=== PATIENT | female | born 1955 | race Caucasian/White ===

== ENCOUNTER → 2017-06-15 08:48 | Outpatient (CLI) | payer MEDICARE, SELFPAY ==
[2017-06-18 11:40] LABS: Fats, Neutral Normal (.); Fats, Total Normal (.)
== END ==
PROVIDERS: Family Provider Internal Medicine; PCP Internal Medicine; Visit Provider Internal Medicine Gastroenterology
DX: K52.9 Noninfective gastroenteritis and colitis, unspecified (principal)
CPT/HCPCS: 82705

== ENCOUNTER 2020-12-08 15:23 | Emergency (ER) | payer MEDICARE, SELFPAY ==
[2020-12-08 15:24] VITALS: BP 121/84; PULSE 96; RESP 18; TEMP 35.6; O2SAT 94; BMI 48.0
--- NOTE | 2020-12-08 16:09 | CT_ITS ---
STUDY: CT CHEST WITHOUT CONTRAST REASON FOR EXAM: Female, 65 years old. Rib fractures fall on sidewalk and left-sided chest pain RADIATION DOSAGE (If Supplied By Facility): CTDIvol = ( 19.83 ) mGy, DLP = ( 815.98 ) mGycm TECHNIQUE: Transaxial imaging was performed without the administration of intravenous contrast material. Individualized dose optimization techniques were used for this CT. COMPARISON: None. FINDINGS: Lungs are clear with a benign calcified left lung granuloma. Central airways are patent. Pleural surfaces are intact. Mediastinal contents are normal. Cardiac chambers are normal in size and shape. Aorta and pulmonary artery are unremarkable. Coronary arteries are severely diseased. There is a nondisplaced left sixth lateral rib fracture. Spine and sternum are intact. CT/Chest without Contrast IMPRESSION: 1. Nondisplaced left sixth lateral rib fracture. 2. No pneumothorax or hemothorax. 3. Severe coronary artery disease. Electronically Signed: Lenka Schulz MD at 17:27 EDT Tel , Service support ,
--- NOTE | 2020-12-08 16:11 | EX.ED.GENINJ ---
HPI History of Present Illness Chief Complaint: Chest Other Informant: patient Narrative Narrative: 65-year-old female states that today she was walking down the sidewalk when she tripped over the lip of an uneven sidewalk falling onto her left side. She states she heard multiple pops on the left chest. She notes that she has a slight bruise to her elbow and abrasion. But it is not bothering her and she has full range of motion. She denies striking her head or any neck or back pain. She denies any hematuria or hemoptysis. She notes it is painful to take a breath. [facility] Medical History (Updated 12/08/20 @ 17:[address] Diogenes Ware, DO) Chest pain Diabetes High cholesterol ARIANA on CPAP Sleep apnea Home Medications Ropinirole Hcl [Requip] 0.5 mg PO BID 11/14/13 [History Last Taken 03/16/16] acyclovir [Zovirax] 400 mg PO BID 11/14/13 [History Last Taken 03/16/16] alosetron 1 mg PO DAILY 11/14/13 [History Last Taken 03/16/16] ascorbic acid (vitamin C) [Vitamin C] 500 mg PO DAILY@0800 11/14/13 [History Last Taken 03/16/16] atorvastatin 20 mg PO QHS 11/14/13 [History Last Taken 03/16/16] calcium carbonate-vitamin D3 [Calcium 600 + D(3)] 1 ea PO BID 11/14/13 [History Last Taken 03/16/16] gabapentin [Neurontin] 1,800 mg PO QHS 11/14/13 [History Last Taken 03/16/16] mag [id number] rt xt 800 mg PO DAILY 11/14/13 [History Last Taken 03/16/16] metformin [Glucophage] 2,000 mg PO DAILY 11/14/13 [History Last Taken 03/16/16] tolterodine 2 mg PO BID 11/14/13 [History Last Taken 03/16/16] zolpidem 5 mg PO QHS 11/14/13 [History Last Taken 03/16/16] alosetron 0.5 mg PO DINNER 11/26/14 [History Last Taken 03/16/16] aspirin 81 mg PO DAILY@0800 11/26/14 [History Last Taken 03/16/16] cholecalciferol (vitamin D3) [Vitamin D3] 2,000 unit PO DAILY 11/26/14 [History Last Taken 03/16/16] furosemide 20 mg PO DAILY 11/26/14 [History Last Taken 03/16/16] gabapentin [Gralise] 600 mg PO LUNCH 11/26/14 [History Last Taken 03/16/16] insulin aspart U-100 [Novolog Flexpen U-100 Insulin] 4 units SUBCUT BREAKFAST 11/26/14 [History Last Taken 03/16/16] insulin aspart U-100 [Novolog Flexpen U-100 Insulin] 5 units SUBCUT DINNER 11/26/14 [History Last Taken 03/16/16 17:00] insulin detemir U-100 [Levemir FlexTouch U-100 Insuln] 20 units SUBCUT DAILY 11/26/14 [History Last Taken 03/16/16] insulin detemir U-100 [Levemir FlexTouch U-100 Insuln] 24 units SQ DINNER 11/26/14 [History Last Taken 03/16/16 17:00] potassium chloride [Klor-Con 10] 10 meq PO DAILY 11/26/14 [History Last Taken 03/16/16] meclizine 25 mg PO 4X/DAY PRN PRN #20 tab 12/28/14 [Rx Last Taken Unknown] insulin aspart U-100 [Novolog Flexpen U-100 Insulin] 4 units SUBCUT LUNCH 07/16/15 [History Last Taken 03/16/16] trazodone 50 mg PO QHS 07/16/15 [History Last Taken 03/16/16] diazepam 4 mg PO TID PRN PRN #20 tablet 03/18/16 [Rx Last Taken Unknown] cephalexin [Keflex] 500 mg PO BID #14 capsule 10/22/16 [Rx Last Taken Unknown] phenazopyridine [Pyridium] 200 mg PO TID #6 tab 10/22/16 [Rx Last Taken Unknown] sulfamethoxazole-trimethoprim 1 tab PO BID #20 tablet 01/11/17 [Rx Last Taken Unknown] oxycodone-acetaminophen 1 tab PO Q6H PRN PRN 5 Days #20 tablet 12/08/20 [Rx Last Taken Unknown] Allergy/AdvReac Type Severity Reaction Status Date / Time liraglutide [From Victoza] Allergy Nausea Verified 12/08/20 15:24 quetiapine fumarate Allergy DISORIENTED Verified 12/08/20 15:24 [From Seroquel] Social History (Updated 12/08/20 @ 16:[address] Diogenes Ware, DO) Smoking Status: Former smoker substance use type: does not use ROS ROS ED Constitutional Constitutional ED: Denies chills, fever(s) or weight loss Eyes Eyes: Denies change in vision or diplopia ENT ENT ED: Denies ear pain, rhinorrhea or sore throat Cardiovascular Cardiovascular: Reports chest pain; Denies orthopnea, palpitations or racing heartbeat Respiratory/Chest Respiratory/Chest: Denies cough, dyspnea or orthopnea Gastrointestinal Gastrointestinal: Denies abdominal pain, diarrhea, nausea or vomiting Genitourinary Genitourinary ED: Denies dysuria, hematuria or urinary frequency Musculoskeletal Musculoskeletal: Denies arthralgias or myalgias Integumentary Denies abscess or rash Neurologic Neurologic: Denies headache(s) or weakness Psychiatric Psychiatric: Denies anxiety, depression, suicidal ideation or suicidal thoughts Endocrine Endocrinology: Denies polydipsia, polyphagia or polyuria Allergic/Immunologic Allergic/Immunologic ED: Denies mouth swelling, tongue swelling or urticaria EXAM Physical Exam Narrative Exam Narrative: Patient morbidly obese which significantly limits my examination Const Vital Signs: 12/08/20 15:24 12/08/20 16:26 Temperature 96.0 F L Temperature Source Temporal Pulse Rate 96 Respiratory Rate 18 Respiratory Effort Normal Non-Labored Respiratory Pattern Normal Blood Pressure 121/84 H Blood Pressure Mean 96 Pulse Ox 94 Oxygen Delivery Method Room Air Positive well nourished and well developed General Appearance ED: well developed HEENT Reports normocephalic, head/scalp atraumatic, TM's clear and moist mucous membranes atraumatic Tympanic Membrane ED: Yes TM's clear Eyes PERRL and EOMs intact bilaterally Neck full ROM, no lymphadenopathy, supple and no JVD General: Negative for tenderness Chest Wall Chest Narrative: Patient reports tenderness over the lower half of the left mid axillary ribs. Resp normal respiratory effort and clear to auscultation bilaterally Cardio regular rate, regular rhythm and no murmurs Rate: regular rate GI normal to inspection, nondistended, normoactive bowel sounds and non-tender Palpation: soft Back/Spine no CVA tenderness, normal ROM, normal to inspection and no thoracic nor lumbar tenderness Extremity Extremity Narrative: There is a slight purple ecchymosis over the posterior aspect of the left elbow and very mild abrasion. Full range of motion. No radial head tenderness General Extremety ED: Negative for edema General Extremity: Negative for edema Neuro oriented x3 and CN's II-XII intact bilaterally Sensorium / Orientation: alert Motor Exam: strength 5/5 throughout Psych mental status grossly normal Mood & Affect: Negative for depressed or tearful Skin no rashes or lesions noted and no wounds MDM MDM MDM Narrative Medical decision making narrative: CT of the chest without contrast demonstrates a nondisplaced lateral sixth rib fracture. No pneumothorax or hemothorax or pulmonary contusion seen. Radiology reads this as coronary artery disease as well. Patient was advised to please follow-up with primary care for further evaluation. We talked about home treatment of rib fractures and I will write for pain medication patient was advised on deep breathing to help prevent pneumonia. Radiography Diagnostic Testing: Clinical Impression(s) from Imaging Studies Chest CT 12/08/20 16:09 IMPRESSION: 1. Nondisplaced left sixth lateral rib fracture. 2. No pneumothorax or hemothorax. 3. Severe coronary artery disease. Electronically Signed: Lenka Schulz MD at 17:27 EDT Tel , Service support , Discharge Plan Triage Chief Complaint: Chest Other ED Provider: Diogenes Ware Dx/Rx/DC Orders Clinical Impression: Left rib fracture Instructions: ED Rib Fracture Prescriptions: New oxycodone-acetaminophen [oxycodone-acetaminophen] 1 TABLET tablet 1 tab PO Q6H PRN PRN (Reason: pain) 5 Days Qty: 20 RF: 0 No Action tolterodine 2 MG capsule,extended release 24hr 2 mg PO BID RF: 0 atorvastatin 40 MG tablet 20 mg PO QHS RF: 0 acyclovir [Zovirax] 400 MG tablet 400 mg PO BID RF: 0 ascorbic acid (vitamin C) [Vitamin C] 500 MG tablet 500 mg PO DAILY@0800 RF: 0 gabapentin [Neurontin] 800 MG tablet 1,800 mg PO QHS RF: 0 metformin [Glucophage] 1,000 MG tablet 2,000 mg PO DAILY RF: 0 zolpidem 5 MG tablet 5 mg PO QHS RF: 0 alosetron 0.5 MG tablet 1 mg PO DAILY RF: 0 calcium carbonate-vitamin D3 [Calcium 600 + D(3)] 1 EACH tablet 1 ea PO BID RF: 0 mag [id number] rt xt 1 EACH capsule 800 mg PO DAILY RF: 0 Ropinirole Hcl [Requip] 1 MG tablet 0.5 mg PO BID RF: 0 potassium chloride [Klor-Con 10] 10 MEQ tablet extended release 10 meq PO DAILY RF: 0 aspirin 81 MG tablet,chewable 81 mg PO DAILY@0800 RF: 0 furosemide 20 MG tablet 20 mg PO DAILY RF: 0 insulin aspart U-100 [Novolog Flexpen U-100 Insulin] 100 UNITS/ML insulin pen 4 units subcut BREAKFAST RF: 0 insulin aspart U-100 [Novolog Flexpen U-100 Insulin] 100 UNITS/ML insulin pen 5 units subcut DINNER RF: 0 alosetron 0.5 MG tablet 0.5 mg PO DINNER RF: 0 insulin detemir U-100 [Levemir FlexTouch U-100 Insuln] 100 UNITS/ML insulin pen 24 units SQ DINNER RF: 0 insulin detemir U-100 [Levemir FlexTouch U-100 Insuln] 100 UNITS/ML insulin pen 20 units subcut DAILY RF: 0 cholecalciferol (vitamin D3) [Vitamin D3] 1,000 UNIT tablet 2,000 unit PO DAILY RF: 0 gabapentin [Gralise] 600 MG tablet extended release 24 hr 600 mg PO LUNCH RF: 0 meclizine 25 MG tablet 25 mg PO 4X/DAY PRN PRN (Reason: Dizziness) Qty: 20 RF: 0 trazodone 50 MG tablet 50 mg PO QHS RF: 0 insulin aspart U-100 [Novolog Flexpen U-100 Insulin] 100 UNITS/ML insulin pen 4 units subcut LUNCH RF: 0 diazepam 2 MG tablet 4 mg PO TID PRN PRN (Reason: Vertigo) Qty: 20 RF: 0 phenazopyridine [Pyridium] 200 MG tablet 200 mg PO TID Qty: 6 RF: 0 cephalexin [Keflex] 500 MG capsule 500 mg PO BID Qty: 14 RF: 0 sulfamethoxazole-trimethoprim 1 TABLET tablet 1 tab PO BID Qty: 20 RF: 0 Primary Care Provider: Modesta Pan Referrals: Modesta Pan MD [Primary Care Provider] - 1-2 Weeks Disposition Disposition: Home, Self Care
[2020-12-08] MEDS: Ketorolac 60 MG/2 ML Vial IM (16:34)
== END 2020-12-08 18:10 | disposition home or self-care (01) ==
PROVIDERS: Emergency Provider Emergency Medicine; PCP Internal Medicine
DX: S22.32XA Fracture of one rib, left side, initial encounter for closed fracture (principal); S50.02XA Contusion of left elbow, initial encounter; S50.312A Abrasion of left elbow, initial encounter; W01.0XXA Fall on same level from slipping, tripping and stumbling without subsequent striking against object, initial encounter; Y93.01 Activity, walking, marching and hiking; Y92.9 Unspecified place or not applicable; E11.9 Type 2 diabetes mellitus without complications; E78.00 Pure hypercholesterolemia, unspecified; G47.33 Obstructive sleep apnea (adult) (pediatric); I25.10 Atherosclerotic heart disease of native coronary artery without angina pectoris; Z79.4 Long term (current) use of insulin; Z79.82 Long term (current) use of aspirin; Z79.899 Other long term (current) drug therapy; Z87.891 Personal history of nicotine dependence
CPT/HCPCS: 71250; 96372; 99282

== ENCOUNTER → 2022-02-12 | Outpatient (CLI) | payer MEDICARE, MEDICAID, SELFPAY ==
[2022-02-12] MEDS: Zolpidem Tartrate 5 MG Tablet PO (21:15)
== END | disposition home or self-care (01) ==
PROVIDERS: PCP Internal Medicine; Visit Provider Psychiatry & Neurology Sleep Medicine
DX: G47.33 Obstructive sleep apnea (adult) (pediatric) (principal)
CPT/HCPCS: 95810

== ENCOUNTER 2022-07-31 05:55 | Day surgery (SDC) | payer MEDICARE, SELFPAY ==
--- NOTE | 2022-07-24 12:02 | EKG12_ITS ---
Test Reason : PRE-OP Blood Pressure : / mmHG Vent. Rate : 075 BPM Atrial Rate : 075 BPM P-R Int : 136 ms QRS Dur : 074 ms QT Int : 402 ms P-R-T Axes : 032 002 049 degrees QTc Int : 448 ms Normal sinus rhythm Normal ECG Confirmed by IRAJ COREAS MD ([id number]), editor in chief NELI BANUELOS ([id number]) on 07/27/2022 1:40:49 PM Referred By: Chyna Durant Confirmed By:IRAJ COREAS MD
[2022-07-24 12:25] LABS: Hematocrit 50.1 % (37-47); Hemoglobin 16.3 g/dL (12.0-15.0); Mean Corp Hgb Conc 32.5 g/dL (32-36); Mean Corpuscular Hgb 31.5 pg (27.0-32.0); Mean Corpuscular Volume 96.9 fL (81-99); Mean Platelet Vol. 10.5 fl (6.2-12.0); Platelet Count 219 K/mm3 (150-450); RBC Distribution Width CV 12.6 % (11.6-14.6); RBC Distribution Width SD 45.1 fl (35.1-43.9); Red Blood Count 5.17 M/mm3 (4.2-5.4); White Blood Count 10.9 K/mm3 (4.4-11.0)
[2022-07-24 13:20] LABS: Anion Gap 7 (5-15); BUN 10 mg/dL (7-18); BUN/Creat Ratio 15.2 RATIO (10-20); Calcium,Total 9.8 mg/dL (8.5-10.1); Chloride 104 mmol/L (98-107); Creatinine, Serum 0.66 mg/dL (0.55-1.02); EST Glomerular Filtration Rate 96 mL/min (>60); Est Glom Filt Rate - Afr Amer 116 mL/min (>60); Glucose 103 mg/dL (74-106); Potassium 4.2 mmol/L (3.5-5.1); Sodium Level 142 mmol/L (136-145)
[2022-07-24 14:00] LABS: Hemoglobin A1c 6.4 % (3.8-5.6)
--- NOTE | 2022-07-30 16:49 | HP.PCM_ITS ---
History and Physical Date of Admission: 07/31/22 Pre-Op History and Physical ? HPI: The patient is a 67 year old female presenting for pre-operative visit. She is scheduled for laparoscopic bilateral salpingo-oophorectomy and right cystectomy, for persistent right ovarian cyst measuring 8.6 cm on 07/31/21. Procedure discussed along with risks, benefits and complications. Other alternatives discussed for management. Consent form signed? Yes. ? ? PAST MEDICAL HISTORY PAST MEDICAL HISTORY Diagnosis Date ? Depression ? ? Diabetes mellitus type 2, uncontrolled ? ? High cholesterol ? ? History of colon polyps ? ? History of gallstones ? ? IBS (irritable bowel syndrome) ? ? Obesity 04/25/2013 ? BMI 48.43 ? ARIANA (obstructive sleep apnea) 03/06/2013 ? Parkinson disease (HCC) ? ? ? PAST SURGICAL HISTORY PAST SURGICAL HISTORY Procedure Laterality Date ? ANAL SPHINCTEROPLASTY ? ? ? SPHINCTEROPLASTY ANAL W/ IMPLANT ARTIFICIAL SPHINCTER ADULT ? BARIATRIC SURGERY HX ? 05/28/2021 ? CATARACT EXTRACTION HX Bilateral ? ? 08/2012 ? COLONOSCOPY GEN ANES ? 04/2019 ? INCISE FINGER TENDON SHEATH ? 12/20/2012 ? Left 3rd trigger finger release ? MANIPULATION KNEE JOINT UNDER GENERAL ANESTHESIA Left 01/23/2022 ? Left knee manipulation under anesthesia ? PAST SURGICAL HISTORY OF ? 06/2012 ? Interstim ? PAST SURGICAL HISTORY OF Right ? ? trigger thumb ? REMOVAL GALLBLADDER ? 2000 ? TOTAL KNEE REPLACEMENT Left 10/29/2021 ? Left robotic total knee replacement ? ? ? CURRENT MEDICATIONS Current Outpatient Medications Medication Sig Dispense Refill ? gabapentin (NEURONTIN) 600 mg tablet Take 3 tablets by mouth daily at bedtime for 180 days. 90 tablet 5 ? gabapentin (NEURONTIN) 300 mg capsule Take 3 capsules by mouth daily at lunch 90 capsule 5 ? insulin glargine U-300 conc (TOUJEO SOLOSTAR U-300 INSULIN) 300 unit/mL (1.5 mL) Inject 18 Units subcutaneously every morning. ? ? ? fexofenadine (SEFERINO) 180 mg tablet Take 1 tablet by mouth once daily. 28 tablet 3 ? pen needle, diabetic (NOVOFINE PLUS) 32 gauge x 1/6 Use to inject insulin once daily 100 Each 1 ? zolpidem (AMBIEN) 5 mg tablet Take 1 tablet by mouth at bedtime as needed for sedation for up to 90 days. TAKE 1 TABLET BY MOUTH AT BEDTIME NEEDED FOR SEDATION Do not start before May 20, 2022. 30 tablet 2 ? acyclovir (ZOVIRAX) 400 mg tablet Take 1 tablet by mouth twice daily. 60 tablet 11 ? rOPINIRole (REQUIP) 0.5 mg tablet TAKE 1 TABLET BY MOUTH TWICE A DAY (NOON AND BEDTIME) 60 tablet 11 ? Cholecalciferol, Vitamin D3, (VITAMIN D-3) 50 mcg (2,000 unit) cap Take 1 capsule by mouth once daily. 30 capsule 11 ? semaglutide (OZEMPIC) 2 mg/dose (8 mg/3 mL) pen injector Inject 2 mg subcutaneously one time a week. 3 mL 3 ? sertraline (ZOLOFT) 50 mg tablet Take 1 tablet by mouth once daily. 30 tablet 5 ? ascorbic acid, vitamin C, (VITAMIN C) 500 mg tablet Take 1 tablet by mouth once daily. 30 tablet 11 ? magnesium oxide (MAG-OX) 400 mg (241.3 mg magnesium) tablet Take 2 tablets by mouth once daily. 60 tablet 11 ? atorvastatin (LIPITOR) 20 mg tablet Take 1 tablet by mouth once daily. 28 tablet 11 ? flash glucose sensor (FREESTYLE OMID 2 SENSOR) kit Use to monitor blood sugars 4 times daily 6 Each 3 ? Surgical Lubricant Jelly gel For MRI Female Pelvis, MRI department to provide. Administer intra-vaginal Surgilube immediately prior the MRI procedure (total amount to patient toleranace). 5 g 1 ? OXYGEN, HOME THERAPY, 2 L/min by Mask route daily at bedtime. CPAP 2L at night ? ? ? cloNIDine HCl (CATAPRES) 0.1 mg tablet Take 1 tablet by mouth once daily. ? ? ? omeprazole (PRILOSEC) 20 mg capsule Take 20 mg by mouth once daily. ? ? ? AUSTEDO 6 mg tab Take 6 mg by mouth twice daily. ? ? ? Lancets lancets Test Four times a day. Insulin Dep? Yes E11.9 DM 2 200 Each 4 ? blood sugar diagnostic (BLOOD GLUCOSE TEST) test strip Test Four times a day. Insulin Dep? Yes E11.9 DM 2 300 Strip 3 ? calcium carbonate 600 mg-cholecalciferol 200 units (CALCARB 600 WITH VITAMIN D) 600 mg(1,500mg) -200 unit tab Take 1 tablet by mouth twice daily. 60 tablet 5 ? wheat dextrin (BENEFIBER SUGAR FREE, DEXTRIN,) 3 gram/4 gram powd 1/2 tablespoon per day x2 weeks. Then increase by 1/2 tablespoon every 2 weeks until you are taking 3 tablespoons per day in divided doses. 248 g 3 ? polyethylene glycol 3350 (MIRALAX, GLYCOLAX) 17 gram/dose powder Take 17 g by mouth twice daily. Drink a mix of 1 scoop in 8oz of water/beverage once daily as needed for constipation. 1 Bottle 2 ? docusate sodium (COLACE) 100 mg capsule Take 1 capsule by mouth twice daily as needed for Constipation. 60 capsule 1 ? COMPOUNDED PRESCRIPTION PORTABLE OXYGEN TANKS FOR USE IN BACK PACK USES 3 Lpm WHEN ON PORTABLE TANK to use with exertion DX R79.81 4 Each 11 ? COMPOUNDED PRESCRIPTION EMERGENCY BACKUP OXYGEN TANK FOR WHEN PATIENT LOSES ELECTRICITY DX R79.81 1 Each 11 ? COMPOUNDED PRESCRIPTION Oxygen supplies dx: R79.81 R06.02 1 Each 99 ? COMPOUNDED PRESCRIPTION CPAP supplies Dx: G47.33 [address] ? COMPOUNDED PRESCRIPTION Home Oxygen, 2 litres with cpap machine 1 Each 0 ? blood sugar diagnostic (OnfanTOUCH ULTRA TEST) test strip Test blood sugar(s) 4 times daily. Dx: Type 2 DM - Uncontrolled E11.65 Insulin: Yes 200 Strip 11 ? Lancets (ACCU-CHEK FASTCLIX) lancets With Accuchek fastclix lancing device. Check sugars 4x/day Dx: e11.65 Insulin: Yes 200 Each 11 ? Current Facility-Administered Medications Medication Dose Route Frequency Provider Last Rate Last Admin ? perflutren lipid microspheres 1.3 mL in NaCl (PF) 0.9% 10 mL injection (DEFINITY) INTRAVENOUS DIRECTED PRN Shawanda May MD ? sodium chloride 0.9 % (flush) 10 mL (BD POSIFLUSH) 10 mL INTRAVENOUS DIRECTED PRN Shawanda May MD ? ? ALLERGIES: Seroquel [Quetiapine Fumarate] and Victoza [Liraglutide] ? PERSONAL HISTORY: SOCIAL HISTORY Social History ? Tobacco Use ? Smoking status: Former ? ? Packs/day: 0.10 ? ? Years: 3.00 ? ? Pack years: 0.30 ? ? Types: Cigarettes ? ? Quit date: 04/25/1988 ? ? Years since quittin.2 ? Smokeless tobacco: Never ? Tobacco comments: ? ? No smoking in childhood home. Roomate of last 10 years smoked while living with patient. Vaping Use ? Vaping Use: Never used Substance Use Topics ? Alcohol use: No ? Drug use: No ? FAMILY HISTORY: FAMILY HISTORY FAMILY HISTORY Problem Relation Age of Onset ? Diabetes Mother ? ? Heart Mother ? ? Diabetes Father ? ? Heart Father ? ? Colon Cancer Sister ? ? Asthma No Family History ? ? ? REVIEW OF SYMPTOMS: negative except as noted above PHYSICAL EXAMINATION: ? VITALS: Blood pressure 120/60, weight 194 lb (88 kg), last menstrual period 04/10/2012. ? GENERAL: The patient is well nourished, well hydrated in no acute distress. , The patient is oriented to time, place, and person. NECK: Supple. No lynphadenopathy, normal thyroid, no thyromegaly. LUNGS: Clear to auscultation bilaterally. no wheezes, rhonchi or rales HEART: Regular rate and rhythm, Normal heart sounds, and No murmurs or gallops ? IMPRESSION: 67yo female with persistent right ovarian cyst - desires surgical intervention. ? PLAN: laparoscopic BSO and removal of right ovarian cyst ? Pt has been counseled on risks/benefits and alternatives of surgery including but not limited to anesthesia, bleeding, infection, injury to pelvic structures including bowel, bladder, ureters and vessels. Pt wishes to proceed with surgery at this time. ? I discussed with the patient that there is potential that this cyst could be borderline malignant or malignant which could require a potential second surgery for staging at a later date. I discussed with the patient that we will try to not rupture the cyst in the abdominal cavity however even gentle manipulation of the cyst could cause this we discussed that if this did occur this would change the staging for ovarian cancer. I did give the patient the option to see a minimally invasive specialist or AGRICULTURAL SPECIALIST oncologist if she desired but patient declined. ? Preoperative clearance was obtained and is on the chart. ? Pre and postoperative instructions were reviewed with the patient. ? I have reviewed and updated past medical and surgical history, medications and allergies Chyna Delacruz MD ?4:41 PM Office Visit on 07/21/2022 Office Visit on 07/21/2022 Note shared with patient
[2022-07-31] VITALS (11 sets, daily range): BP systolic 108–143; BP diastolic 64–96; PULSE 56–71; RESP 16–20; TEMP 36.6–37.2; O2SAT 92–100; BMI 33.5
[2022-07-31] MEDS: Lactated Ringers 1,000 ML 15 ML IV ×3 (06:40→09:36)
[2022-07-31 07:08] LABS: Bedside Glucose 115 mg/dL (74-106)
--- NOTE | 2022-07-31 07:30 | OV_PTH ---
PATIENT: KEVAN BIRD [place] [facility] [place][id number] AGE/SX: 67/F ROOM: RE07/31/[address]: Dr. Chyna Durant, MDDOB: 1955 BED: DIS: 07/31/2022 SPEC #: [id number] RECD: 07/31/22 10:21 STATUS: ALBERT ANDREA #: [id number] ANAID: 07/31/22 07:[address]: Chyna Durant DEPT: SURGICAL PATHOLOGY RECD BY: Amanda Mendoza ENTERED: 07/31/22 10:44 SP TYPE: OVARY OTHR DR: MD Dr. Jeremiah Tapia MD Tissues: CYST Procedures: Surgery Specimen Level III Surgery Specimen Level IV Surgery Specimen Level V HEADER OPERATION: Laparoscopic bilateral salpingo-oophorectomy, myomectomy PRE-OP DIAGNOSIS: Persistent right ovarian cyst TISSUE SUBMITTED: Bilateral fallopian tubes, bilateral ovaries, right ovarian cyst, pedunculated fibroid MICROSCOPIC DIAGNOSIS Right ovarian cyst, fallopian tubes and fibroid, excisions: Leiomyoma with degenerative and calcific change. Right and left fallopian tubes with no pathologic change. Right ovary with serous cyst adenofibroma. Left ovary with serous cystadenoma. AM:biju 08/03/2022 MICROSCOPIC DESCRIPTION Slides are reviewed. GROSS DESCRIPTION Received in fixative is one container labeled with the patient's name and designated bilateral fallopian tubes, bilateral ovaries, right ovarian cyst, pedunculated fibroid. The specimen consists of one fallopian tube with adjacent ovary, separate one fallopian tube, a detached nodular mass and a detached second ovary with cyst. The detached nodular mass weighs 2 gm and measures 3.0 x 3.2 x 2.0 cm. Sections of this mass reveals vincent whorled cut surfaces without areas of hemorrhage, necrosis or cystic degeneration. A separate fallopian tube, most likely right fallopian tube, measures 4.0 cm in length and 0.5 cm in diameter. The fimbrial end is identified. Sections unremarkable cut surfaces. The fallopian tube and adjacent ovary, most likely left fallopian tube and ovary. The left fallopian tube measures 5.0 cm in length and 0.5 cm in diameter. It is similar appearance to right. The adjacent left ovary measures 2.5 x 2.0 x 1.5 cm. Sections reveal a cyst filled with clear fluid measuring 1.2 cm in greatest dimension. The right ovary with cyst measures 8.0 x 6.5 x 2.0 cm and weighs 46 gm. The outer surface is smooth without any papillation. The portion of this cystic right ovary is partially disrupted. The external surface is inked black and is almost completely replaced by a simple cyst filled with clear fluid. No obvious papillations are identified. The inner cyst wall shows focal ragged area. The cyst appears to completely replace almost the entire ovary. Publication Distributor sections are submitted in nine cassettes as follows: 1 - detached nodular mass, 2 & 3 - detached right fallopian tube, 4-6 - left fallopian tube and adjacent ovary (4 - left fallopian tube, 5 & 6 - left ovary), 7-9 - right cystic ovary. / SJ:rg 07/31/2022 TC:5 CPT: 72674 x2, 22543, 02479 x2
[2022-07-31] MEDS: Bupivacaine 0.5% PF 10 ML VIAL (07:47)
--- NOTE | 2022-07-31 08:49 | DCINST_ITS ---
Discharge Instructions Procedure Other Diet Discharge Diet: No restrictions Activity May resume sexual activity in: 2 weeks Lifting Restrictions: 20-25 lbs Dressing / Incision Call your doctor if your incision/area has: Continuous Slow Oozing, Sudden Increased Bleeding, Increased Pain/ Swelling, Increased Redness, Foul Smelling Discharge and Swelling at the incision site Call your doctor if you observe: Fever of 101 or Higher, Inability to urinate, Inability to have a bowel movement, Using more than 1 pad per hour and Uncontrolled pain Additional Dressing/Incision Instructions:: You have skin glue over your incision sites, do not pick off. You may shower and let the soap and water run over the incision sites and dab dry. Follow Up Care Please Follow Up With: Chyna Durant MD When: 1-2 weeks post OP if you need an appointment please call [phone] Test Results: Test results from this visit will be discussed in further detail at your follow- up appointment, if applicable. Discharge Plan Admission Attending Provider: Chyna Durant Primary Care Provider: Modesta Pan Consulting Providers: Jeremiah Ricardo Discharge Orders/Prescriptions Prescriptions: No Action atorvastatin 40 MG tablet 20 mg PO QHS Label Comments: reduces cholesterol acyclovir [Zovirax] 400 MG tablet 400 mg PO BID Label Comments: antiviral-cold sores ascorbic acid (vitamin C) [Vitamin C] 500 MG tablet 500 mg PO DAILY@0800 Label Comments: supplement gabapentin [Neurontin] 800 MG tablet 1,800 mg PO QHS Label Comments: nerve pain/restless legs zolpidem 5 MG tablet 5 mg PO QHS Label Comments: sleep alosetron 0.5 MG tablet 1 mg PO DAILY Label Comments: DIARRHEA calcium carbonate-vitamin D3 [Calcium 600 + D(3)] 1 EACH tablet 1 ea PO BID Label Comments: supplement Ropinirole Hcl [Requip] 1 MG tablet 0.5 mg PO BID Label Comments: restless legs alosetron 0.5 MG tablet 1 mg PO DINNER Label Comments: irritable bowel cholecalciferol (vitamin D3) [Vitamin D3] 1,000 UNIT tablet 2,000 unit PO DAILY Label Comments: supplement Gralise 600 MG tablet extended release 24 hr 1,200 mg PO LUNCH Label Comments: nerve pain clonidine HCl 0.1 mg tablet 0.1 mg PO QHS fexofenadine 180 mg Tablet 180 mg PO DAILY magnesium oxide [MagOx] 400 mg (241.3 mg magnesium) Tablet 400 mg PO DAILY sertraline 50 mg Tablet 50 mg PO DAILY Farxiga 5 mg Tablet 5 mg PO DAILY Basilfordosman MistyRadha U-300 Insulin 300 unit/mL (1.5 mL) insulin pen 18 unit SUBCUT DAILY Austedo 6 mg tablet 12 mg PO DAILY Austedo 6 mg tablet 18 mg PO QPM Ozempic 2 mg/dose (8 mg/3 mL) pen injector 2 mg SUBCUT MCMULLEN Referrals / Follow Up: Modesta Pan MD [Primary Care Provider] - Disposition Disposition (needs filled in before D/C Order can be placed): Home, Self Care
--- NOTE | 2022-07-31 08:50 | OP.PCM_ITS ---
Report of Operation Date of Procedure: 07/31/22 Pre-Operative Diagnosis: Right ovarian cyst (persistent) Post-Operative Diagnosis: Same, Pedunculated uterine fibroid Surgery/Procedure Performed:: Laparoscopic BSO, Myomectomy Dr. Benítez assisted with Manipulated of tissue, removal of specimen, closure of fascia Description of Surgical Findings:: Large right ovarian cyst, Normal left ovary and tube. Pedunculated fibroid on posterior aspect of uterus. Surgeon: Chyna Durant account processor: Carrie Benítez Type of Anesthesia: General and Local Special Medications: .5% marcaine Specimen's removed: bilateral fallopian tubes, bilateral ovaries, right ovarian cyst, pedunculated fibroid Drains: none Estimated Blood Loss (mL): 5cc Fluids Replaced: 1700 Description of Procedure: After informed consent was obtained patient was taken to the operating room she was placed in supine position she was given anesthesia. She was then placed in the [facility] stirrups and she was prepped and draped in normal sterile fashion. Bladder was drained prior to the start of procedure approximately 100cc of clear yellow urine was expelled. At this time attention was turned to the vaginal portion where weighted speculum placed at posterior fornix vagina single-tooth tenaculum was used to gently grasp the internal the cervix. uterus was gently sounded to approximately 7cm. Uterine manipulator was placed without difficulty. Legs then placed in parallel with the abdomen the tenaculum and the weighted speculum were removed. 2 towel clamps were placed superior to umbilicus. After Marcaine was injected inferior to umbilicus a small incision was made and a 5 mm trocar was placed under direct visualization. CO2 gas was used to insufflate the intra-abdominal cavity. Upon inspection large right ovarian cyst noted. pedunculated fibroid noted on posterior aspected noted.. At this time then the LLQ port was placed again Marcaine was injected small incision was made a knife and the 5 mm trocar was placed. this was repeated on right side. At this time then tubes were traced back to the fimbriated ends. Ligasure was used to coagulate and ligate along IP ligament, uterovarian and the mesosalpynx bilaterally until ovaries and tubes removed completely. Good hemostasis was appreciated. Careful attention on the right to ensure the cyst was not ruptured. at ths time time pedunuculated fiboroid was removed at the stalk. The umbilical incision was extended to 15mm and endocatch bag placed- specimens collected and removed. fascia of umbilical incision using 0-vicryl sutre in a running fashion. At this time procedure was deemed complete successful. The gas was desufflated on from the intra-abdominal cavity. The trochars were removed. Skin was closed using 4-0 Monocryl in a subcutaneous fashion. Dermabond glue was placed. Instrument lap and needle counts were correct ?2. The uterine manipulator was removed. Vaginal sweep was performed it was negative. There were no complications anticipated normal postoperative course for this patient. Grafts/Implants Used: none Procedure Start Time: 07:47 Procedure Stop Time: 08:56 Complications none. Admit VTE Documentation VTE Present on Admission: Yes VTE Mechan Device Prophylaxis: SCD's VTE Pharm Prophylaxis ordered?: No Reason prophylaxis not ordered:: Procedure Not Indicated
[2022-07-31 09:34] LABS: Bedside Glucose 119 mg/dL (74-106)
== END 2022-07-31 11:41 | disposition home or self-care (01) ==
LOC: SDC 05:56 → AC 05:57
PROVIDERS: Anesthesiology; PCP Internal Medicine; Referring Provider Obstetrics & Gynecology; Visit Provider Obstetrics & Gynecology
PROC: (CPT 58720; principal; 2022-07-31 07:15)
DX: D25.9 Leiomyoma of uterus, unspecified (principal); E11.9 Type 2 diabetes mellitus without complications; N83.201 Unspecified ovarian cyst, right side; E78.00 Pure hypercholesterolemia, unspecified; K58.9 Irritable bowel syndrome, unspecified; Z80.0 Family history of malignant neoplasm of digestive organs; F41.9 Anxiety disorder, unspecified; F32.A Depression, unspecified; Z99.81 Dependence on supplemental oxygen; Z87.891 Personal history of nicotine dependence
CPT/HCPCS: 58720; 00840; 36415; 80048; 82962; 83036; 85027; 88304; 88305; 88307; 93005; J7120; J2405

== ENCOUNTER 2025-02-04 10:05 | Emergency (ER) | payer MEDICARE, MEDICAID, SELFPAY ==
[2025-02-04 10:07] VITALS: BP 157/89; PULSE 76; RESP 15; TEMP 36.7; O2SAT 97
[2025-02-04 10:21] VITALS: BMI 32.7
--- NOTE | 2025-02-04 10:34 | ED.VIS.FALL ---
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 Patient states on she lost her balance when picking something off the floor. Struck her lower back on a coffee table. Patient states since then she has had right sided lumbar back pain which she describes as a spasm. She has been using a walker to help with her balance. She denies hitting her head. No LOC. Not on blood thinners. She denies any chest pain, shortness of breath, abdominal pain, nausea, vomiting, numbness/tingling, weakness. Review of systems: See HPI Medications: As listed on the chart Allergies: As listed on the chart PFSH: Per chart Vital signs: As listed on the chart. Reviewed. Physical exam: Gen: A&O x3, NAD Head: Normocephalic, atraumatic Eyes: No sclera icterus, conjunctiva clear ENT: Moist mucous membranes, atraumatic Neck: Trachea midline, full range of motion, nontender CV: RRR, no murmurs, no chest wall TTP Resp: Lungs CTA BL, no w/r/c GI: Abd soft, non-distended, non-tender, no r/r/g Musc: Tremor from her TD, full ROM, no deformity, no spinal TTP, no eric step-offs, patient has tenderness to palpation of the right paraspinal musculature of the lumbar spine-muscles are tense-no external signs of trauma-palpation recreates her pain Skin: Warm, dry, intact Neuro: Alert, oriented, grossly intact, sensation intact, GCS 15 Psych: Cooperative, appropriate mood and affect [facility] Medical History Wears glasses Arthritis Depression Anxiety Insulin dependent diabetes mellitus Dietary restriction On home oxygen therapy History of cataract High cholesterol Diabetes Home Medications ?Medication ?Instructions ?Recorded ?Last Taken ?Type Ropinirole Hcl [Requip] 0.5 mg PO BID 11/14/13 03/16/16 History acyclovir 400 mg tablet (Zovirax) 400 mg PO BID 11/14/13 03/16/16 History alosetron 0.5 mg tablet 1 mg PO DAILY 11/14/13 03/16/16 History ascorbic acid (vitamin C) 500 mg 500 mg PO DAILY@0800 11/14/13 03/16/16 History tablet (Vitamin C) atorvastatin 40 mg tablet 20 mg PO QHS 11/14/13 03/16/16 History calcium 600 mg (as 1 ea PO BID 11/14/13 03/16/16 History carbonate)-vitamin D3 10 mcg (400 unit) tablet (Calcium 600 + D(3)) gabapentin 800 mg tablet 1,800 mg PO QHS 11/14/13 03/16/16 History (Neurontin) zolpidem 5 mg tablet 5 mg PO QHS 11/14/13 03/16/16 History alosetron 0.5 mg tablet 1 mg PO DINNER 11/26/14 03/16/16 History cholecalciferol (vitamin D3) 25 2,000 unit PO DAILY 11/26/14 03/16/16 History mcg (1,000 unit) tablet (Vitamin D3) gabapentin 600 mg tablet,extended 1,200 mg PO LUNCH 11/26/14 03/16/16 History release 24 hr (Gralise) clonidine HCl 0.1 mg tablet 0.1 mg PO QHS 07/24/22 Unknown History dapagliflozin propanediol 5 mg 5 mg PO DAILY 07/24/22 Unknown History tablet (Farxiga) deutetrabenazine 6 mg tablet 12 mg PO DAILY 07/24/22 Unknown History (Austedo) deutetrabenazine 6 mg tablet 18 mg PO QPM 07/24/22 Unknown History (Austedo) fexofenadine 180 mg tablet 180 mg PO DAILY 07/24/22 Unknown History insulin glargine U-300 conc 300 18 unit subcut DAILY 07/24/22 Unknown History unit/mL (1.5 mL) subcutaneous pen (Toujeo SoloStar U-300 Insulin) magnesium oxide 400 mg (241.3 mg 400 mg PO DAILY 07/24/22 Unknown History magnesium) tablet (MagOx) semaglutide 2 mg/dose (8 mg/3 mL) 2 mg subcut MCMULLEN 07/24/22 Unknown History subcutaneous pen injector (Ozempic) sertraline 50 mg tablet 50 mg PO DAILY 07/24/22 Unknown History Allergy/AdvReac Type Severity Reaction Status Date / Time liraglutide (From Xopiktoza) Allergy Nausea Verified 02/04/25 10:09 quetiapine fumarate (From Allergy DISORIENTED Verified 02/04/25 10:09 Seroquel) Surgical History History of cholecystectomy History of surgery History of left knee surgery History of bariatric surgery Social History (Updated 12/08/20 @ 16:[address] 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 Patient states on she lost her balance when picking something off the floor. Struck her lower back on a coffee table. Patient states since then she has had right sided lumbar back pain which she describes as a spasm. She has been using a walker to help with her balance. She denies hitting her head. No LOC. Not on blood thinners. On presentation, patient no acute distress. See physical exam findings. Differential diagnosis includes but is not limited to myofascial spasm, contusion, suspect less likely fracture. IM Toradol, lidocaine patch, cyclobenzaprine ordered for pain. Will obtain x-ray of the lumbar spine given low suspicion for fracture and no midline spinal tenderness. I do not think any laboratory workup is needed. X-ray of the lumbar spine without any acute fracture or dislocation. Radiology in agreement. Degenerative changes. On reevaluation, patient's pain is improved. Tylenol Motrin as needed for pain. Lidocaine patches will be prescribed. Follow-up with primary care physician. Recommend using walker when ambulating. Return precautions explained. Patient benji understand the plan. Patient will discharge home. Impression: 1. Right lumbar paraspinal muscle spasm 2. Mechanical fall Radiography Diagnostic Testing: Clinical Impression(s) from Imaging Studies Lumbar Spine X-Ray 02/04/25 10:55 IMPRESSION: Degenerative changes of the lumbar spine with disc space narrowing from L1-S1. T12 anterior vertebral body wedging. Reading Location: [facility] Discharge Plan Triage Chief Complaint: Fall ED Provider: Maynor Gee Dx/Rx/DC Orders Prescriptions: No Action atorvastatin 40 MG tablet 20 mg PO QHS Patient Comments: reduces cholesterol acyclovir [Zovirax] 400 MG tablet 400 mg PO BID Patient Comments: antiviral-cold sores ascorbic acid (vitamin C) [Vitamin C] 500 MG tablet 500 mg PO DAILY@0800 Patient Comments: supplement gabapentin [Neurontin] 800 MG tablet 1,800 mg PO QHS Patient Comments: nerve pain/restless legs zolpidem 5 MG tablet 5 mg PO QHS Patient Comments: sleep alosetron 0.5 MG tablet 1 mg PO DAILY Patient Comments: DIARRHEA calcium carbonate-vitamin D3 [Calcium 600 + D(3)] 1 EACH tablet 1 ea PO BID Patient Comments: supplement Ropinirole Hcl [Requip] 1 MG tablet 0.5 mg PO BID Patient Comments: restless legs alosetron 0.5 MG tablet 1 mg PO DINNER Patient Comments: irritable bowel cholecalciferol (vitamin D3) [Vitamin D3] 1,000 UNIT tablet 2,000 unit PO DAILY Patient Comments: supplement Gralise 600 MG tablet extended release 24 hr 1,200 mg PO LUNCH Patient Comments: nerve pain clonidine HCl 0.1 mg tablet 0.1 mg PO QHS fexofenadine 180 mg Tablet 180 mg PO DAILY magnesium oxide [MagOx] 400 mg (241.3 mg magnesium) Tablet 400 mg PO DAILY sertraline 50 mg Tablet 50 mg PO DAILY Farxiga 5 mg Tablet 5 mg PO DAILY Tounicci SoloStar U-300 Insulin 300 unit/mL (1.5 mL) insulin pen 18 unit SUBCUT DAILY Austedo 6 mg tablet 12 mg PO DAILY Austedo 6 mg tablet 18 mg PO QPM Ozempic 2 mg/dose (8 mg/3 mL) pen injector 2 mg SUBCUT MCMULLEN Primary Care Provider: Modesta Pan Referrals: Modesta Pan MD [Primary Care Provider, Internal Medicine] Print Language: Macedonian
[2025-02-04] MEDS: Lidocaine 5% Patch 1 PATCH TOPICAL (10:35)
--- OUTSIDE RECORDS SUMMARY | 2025-02-04 10:50 | XMS RPT_ITS | CCD ---
Author Organization [facility] Care Team Providers Care Molded Goods Spot Picker Name Role Phone Modesta Daley Primary Care Provider Modesta Daley MD Primary Care Provider Everton Whitman Unavailable [facility], Keti Unavailable [facility], [place]ita Unavailable Modesta Daley MD Primary Care Provider Modesta Daley MD Primary Care Provider Modesta Daley MD Primary Care Provider Everton Whitman Unavailable [facility], Keti Unavailable [facility], [place]ita Unavailable Sisarnold SALDANA, Conner Unavailable Unavailable Viet Johnson MD Unavailable Donovan WADE, Aung Unavailable Jemima Brunner PT Unavailable Everton Whitman F Unavailable [facility], Keti Unavailable [facility], [place]ita Unavailable Jemima Brunner PT Unavailable PROVIDER, UNKNOWN Referring Unavailable Modesta Daley Primary Care Unavailable Jasbir Iyer Attending Unavailable PROVIDER, UNKNOWN Referring Unavailable Ganta, Modesta Primary Care Unavailable Jasbir Iyer Attending Unavailable Jasbir Iyer Attending Unavailable PROVIDER, UNKNOWN Referring Unavailable GantaAlvinra Primary Care Unavailable JULIO CESAR JOHN Attending Unavail able Ganta, Modesta Primary Care Unavailable PROVIDER, UNKNOWN Referring Unavailable Jasbir Iyer Attending Unavailable PROVIDER, UNKNOWN Referring Unavailable Ganta, Modesta Primary Care Unavailable MARLENI LOO Attending Unavailable Ganta, Modesta Primary Care Unavailable PROVIDER, UNKNOWN Referring Unavailable JUN DURANT Attending Unavailable PROVIDER, UNKNOWN Referring Unavailable Ganta, Modesta Primary Care Unavailable PROVIDER, UNKNOWN Referring Unavailable Ganta, Modesta Primary Care Unavailable Jasbir Iyer Attending Unavailable Thuy DYE Modesta Primary Care Provider Everton Whitman Unavailable [facility], Keti Unavailable [facility], [place]ita Unavailable Viet Johnson MD Unavailable Aung Man PA-C Unavailable Kannan PT, Jemima Unavailable Donovan White DO Unavailable Modesta Daley MD C Primary Care Provider Jasbir Iyer MD Unavailable Modesta Daley MD Primary Care Provider Modesta Daley MD C Primary Care Provider Jasbir Iyer MD Unavailable Everton Whitman Unavailable Ganta, Modesta Primary Care Unavailable Aman Holly Attending Unavailable Neyhart-Delacrzu, Chyna Referring Unavail able Ganta, Modesta Primary Care Unavailable Neyhart-Delacruz, Chyna Admitting Unavail able Neyhart-Delacruz, Chyna Attending Unavail able Neyhart-Delacruz, Chyna Referring Unavail able Jeremiah Ricardo Unavailable Ganta, Modesta Primary Care Unavailable Tony López Attending Unavailable Kannan PT, Jemima Unavailable Everton Whitman MD F Unavailable [phone] [facility], Keti Unavailable Kannan PT, Jemima Unavailable [phone] STEPHEN PETERSON Attending Unavailable GANTA, MODESTA Primary Care Unavailable JASBIR IYER Attending Unavailable GANTA, MODESTA Primary Care Unavailable Ganta MD Modesta [facility] Denbow PA-C, Effie L Unavailable 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, Inna Unavailable Bogner PA-C, Berta Unavailable GANTA, MODESTA Referring Unavailable GANTA, MODESTA Primary Care Unavailable Christopher DO, Donovan Richar Unavailable Christopher DO, Donovan Richar Unavailable Denbow PA-C, Effie L Unavailable Bogner PA-C, Berta Unavailable OLDER, INNA Referring Unavailable GANTA, MODESTA Primary Care Unavailable OLDER, INNA Referring Unavailable GANTA, MODESTA Primary Care Unavailable OLDER, INNA Attending Unavailable GANTA, MODESTA Primary Care Unavailable GANTA, MODESTA Referring Unavailable GANTA, MODESTA Primary Care Unavailable GANTA, MODESTA Primary Care Unavailable GANTA, MODESTA Attending Unavailable GANTA, MODESTA Primary Care Unavailable GANTA, MODESTA Referring Unavailable GANTA, MODESTA Primary Care Unavailable OLDER, INNA Referring Unavailable OLDER, INNA Attending Unavailable GANTA, MODESTA Primary Care Unavailable OLDER, INNA Attending Unavailable GANTA, MODESTA Primary Care Unavailable GANTA, MODESTA Primary Care Unavailable GANTA, MODESTA Attending Unavailable GANTA, MODESTA Primary Care Unavailable OLDER, INNA Referring Unavailable GANTA, MODESTA Primary Care Unavailable OLDER, INNA Referring Unavailable OLDER, INNA Referring Unavailable GANTA, MODESTA Primary Care Unavailable Allergies Allergy Classification Reported Allergen(s) Allergy Type Date of Onset Reaction(s) Facility liraglutide (7 sources) liraglutide Drug Allergy 4 Nausea Only, GI Upset [facility] QUEtiapine (7 sources) QUEtiapine Drug Allergy 3 Other (See Comments), Mental Status Change [facility] (20 sources) liraglutide; Translations: [LIRAGLUTIDE] Drug Allergy 4 Nausea Only, GI Upset [facility] Work Phone: (14 sources) QUEtiapine Drug Allergy 1 Other (See Comments), Other [facility] Work Phone: (20 sources) QUEtiapine; Translations: [QUETIAPINE FUMARATE] Drug Allergy 3 Mental Status Change [facility] (6 sources) liraglutide Drug Allergy 3 Nausea Only [facility] (1 source) liraglutide Drug Allergy 3 [facility] (1 source) QUEtiapine Drug Allergy 3 [facility] Medications Current Medications Medication Drug Class(es) Dates Sig (Normalized) Sig (Original) acetaminophen 325 mg / oxyCODONE hydrochloride 5 mg oral tablet (1 source) Opioid Agonist Start: 12-08-2020 take 1 tablet by mouth every six hours as needed Oxycodone-Acetam inophen Active 1 TABLET PO EVERY 6 HOURS NEEDED 04 07December 08, 2020 acyclovir 400 mg oral tablet (20 sources) Herpesvirus Nucleoside Analog DNA Polymerase Inhibitor, Herpes Simplex Virus Nucleoside Analog DNA Polymerase Inhibitor, Herpes Zoster Virus Nucleoside Analog DNA Polymerase Inhibitor Start: 11-14-2013 End: 03-08-2024 take 1 tablet by mouth twice daily acyclovir (ZOVIRAX) 400 mg tablet Take 1 tablet by mouth two times a day. 60 tablet 11 03/08/2024 Active Comment on above: Take 1 tablet by smitha th twice daily. Take 1 tablet by smitha th two times a day. alosetron 1 mg oral tablet (20 sources) Serotonin-3 Receptor Antagonist Start: 05-18-2022 alosetron (Lotronex) 1 MG tablet 1 mg at noon and 1 mg in the evening. 0 05/18/2022 Active Start: 04-15-2020 take 1 tablet by smitha th once daily in the morning alosetron (LOTRONEX) 1 MG tablet Take 1 mg by mouth daily In the morning 0 04/15/2020 Active Start: 04-15-2020 take 0.5 mg by mouth once alexey y alosetron (LOTRONEX) 1 MG tablet Take 0.5 mg by mouth daily 0 04/15/2020 Active Start: 11-26-2014 take 0.5 mg by mouth at dinner Alosetron Active 0.5 MG PO WITH DINNER November 25, 2014 11:00pm Start: 11-14-2013 take 1 mg by mouth at dinner A losetron Active 1 MG PO WITH DINNER November 26, 2014 12:00am End: 08-11-2021 Alosetron HCl 0.5 mg tablet Take 1 mg by mouth as directed. Taking 1 mg in the morning and 0.5 mg at dinner. Prescribed by Dr. Everton Whitman 08/11/2021 Discontinued Comment on above: Take 1 mg by mouth a s directed. Taking 1 mg in the morning and 0.5 mg at dinner. Prescribed by Dr. Everton Whitman amantadine hydrochloride 100 mg oral capsule (20 sources) Influenza A M2 Protein Inhibitor Start: 07-13-19 take 1 capsule by mouth twice daily amantadine HCl (SYMMETREL) 100 mg capsule Take 100 mg by mouth two times a day. 07/13/2023 Active amoxicillin 500 mg oral capsule (1 source) Penicillin-class Antibacterial Start: 09-10-19 End: 09-10-19 amoxicillin (AMOXIL) 500 mg capsule Take 4 capsules by mouth one time only for 1 dose. Take 60 min prior to procedure 4 capsule 0 09/10/2023 09/10/2023 Active ascorbic acid 500 mg oral tablet (20 sources) Vitamin C Start: 03-12-19 23 End: 03-12-19 24 take 1 tablet by mouth in the morning ascorbic acid (Vitamin C) 500 MG tablet Take 500 mg by mouth in the morning. 0 03/12/2022 03/12/2023 Active Start: 11-14-2013 End: 01-04-2025 take 1 tablet by mouth once daily ascorbic acid, vitamin C, (VITAMIN C) 500 mg tablet Take 1 tablet by mouth once daily. 30 tablet 11 01/05/2024 01/04/2025 Active Comment on above: Take 1 tablet by smitha th once daily. TAKE 1 TABLET BY SMITHA TH DAILY atorvastatin 20 mg oral tablet (20 sources) HMG-CoA Reductase Inhibitor Start: 1 End: 4 take 1 tablet by mouth once daily atorvastatin (LIPITOR) 20 mg tablet Take 1 tablet by mouth once daily. 28 tablet 11 12/16/2023 Active Start: 11-14-2013 take 20 mg by mouth at bedtime Atorvastatin Active 20 MG PO AT BEDTIME November 14, 2013 12:00am Comment on above: Take 1 tablet by smitha once daily. calcium carbonate 500 mg chewable tablet (1 source) Start: 2 take 1 tablet by mouth at bedtime calcium carbonate (TUMS) 500 MG chewable tablet Take 1 tablet by mouth in the morning, at noon, and at bedtime 0 06/03/2021 Active calcium carbonate 1500 mg / cholecalciferol 200 unt oral tablet (20 sources) Vitamin D Start: 1 take 1 tablet by mouth twice daily calcium carbonate 600 mg-cholecalciferol 200 units (CALCARB 600 WITH VITAMIN D) 600 mg(1,500mg) -200 unit tab Take 1 tablet by mouth twice daily. 60 tablet 5 08/30/2020 Active Start: 11-14-2013 Calcium Carbon ate-Vitamin D3 (Calcium 600 + D(3)) 1 EACH tablet Active 1 EACH PO TWICE A DAY November 14, 2013 12:00am Comment on above: Take 1 tablet by smitha twice daily. calcium citrate 500 mg oral tablet (6 sources) Start: 022 take 500 mg by mouth every eight hours CALCIUM CITRATE PO Take 500 mg by mouth in the morning and 500 mg at noon and 500 mg before bedtime. 0 08/29/2021 Active carbamide peroxide 65 mg/ml otic solution (11 sources) Start: 025 carbamide peroxide (DEBROX) 6.5 % otic solution Indications: Decreased hearing, left , Impacted cerumen of left ear To be used as directed. 4-5 drops repeat every 1-2 hr if necessary. 15 mL 05/01/2024 Active cephalexin 500 mg oral capsule (1 source) Cephalosporin Antibacterial Start: 017 take 1 capsule by mouth twice daily Cephalexin (Keflex) 500 MG capsule Active 500 MG PO TWICE A DAY October 21, 2016 11:00pm cholecalciferol 0.05 mg oral capsule (20 sources) Vitamin D Start: 023 take 1 capsule by mouth in the morning cholecalciferol (Vitamin D-3) 50 MCG (2000 UT) capsule Take 2,000 Units by mouth in the morning. 0 05/08/2022 Active Start: 01-25-2020 End: 03-08-2024 take 1 capsule by mouth once daily Cholecalciferol, Vitamin D3, (VITAMIN D-3) 50 mcg (2,000 unit) cap Indications: Vitamin D deficiency Take 1 capsule by mouth once daily. 30 capsule 11 03/08/2024 Active Start: 11-26-2014 take 2 tablets by mo ut once daily Cholecalciferol (Vitamin D3) (Vitamin D3) 1,000 UNIT tablet Active 2000 UNIT PO DAILY November 26, 2014 12:00am Comment on above: Take 1 capsule by mo [facility] once daily. Mag Hapil-H6-Ibhvlofl Rt Xt (1 source) Vitamin D Start: 4 take 800 mg by mouth once daily Mag Dweyj-Y8-Ylnjhabz Rt Xt Active 800 MG PO DAILY November 13, 2013 11:00pm cloNIDine hydrochloride 0.1 mg oral tablet (20 sources) Central alpha-2 Adrenergic Agonist Start: 2 take 1 tablet by mouth once daily cloNIDine HCl (CATAPRES) 0.1 mg tablet Take 1 tablet by mouth once daily. 10/02/2021 Active Comment on above: Take 1 tablet by smitha th once daily. Continuous Blood Gluc Police Dispatcher (FREESTYLE IZABELLA 14 DAY READER) TERE (14 sources) Start: 0 Continuous Blood Gluc Police Dispatcher (FREESTYLE IZABELLA 14 DAY READER) TERE 1 each daily 0 09/22/2019 Active CPAP Machine MISC (14 sources) CPAP Machine MIS C by Does not apply route nightly ARIANA Does not know setting 2L O2 0 Active CPAP Machine MIS C by Does not apply route nightly ARIANA Does not know setting 0 Active dapagliflozin 5 mg oral tablet (20 sources) Sodium-Glucose Cotransporter 2 Inhibitor Start: 04-23-2022 End: 05-08-2022 take 1 tablet by mouth once daily at breakfast dapagliflozin (Farxiga) 5 MG Indications: Type 2 Diabetes Mellitus Take 1 tablet by mouth daily (with breakfast). 0 05/08/2022 Active Comment on above: Take 1 tablet by smitha th daily with breakfast. deutetrabenazine 6 mg oral tablet (20 sources) Start: 07-24-2022 take 1 tablet by mouth once daily Deutetrabenazine (Austedo) 6 mg tablet Active 12 MG PO DAILY July 24, 2022 12:00am Start: 05-11-2022 Austedo 6 MG t ablet 12 mg at noon and 12 mg in the evening. 0 05/11/2022 Active Start: 04-30-2020 End: 07-15-2023 take 1 tablet by mouth twice daily AUSTEDO 6 mg tab Take 6 mg by mouth twice daily. 0 12/16/2020 07/15/2023 Discontinued Start: 04-30-2020 take 2 tablets by mo uth in the morning AUSTEDO 6 MG tablet Take 6 mg by mouth in the morning and at bedtime 2 tabs AM and PM 0 04/30/2020 Active Comment on above: Take 6 mg by mouth t wice daily. diazePAM 2 mg oral tablet (1 source) Benzodiazepine Start: 03-18-19 17 take 4 mg by mouth three times daily as needed Diazepam Active 4 MG PO 3 TIMES DAILY NEEDED 2016 12:00am diclofenac sodium 0.01 mg/mg topical gel (20 sources) Nonsteroidal Anti-inflammatory Drug Start: 05-10-19 24 apply 2 g topically twice daily diclofenac (VOLTAREN) 1 % topical gel Apply 2 g to affected area two times a day. 50 g 1 05/10/2023 Active Start: 04-15-2023 End: 04-23-2023 apply 2 g topically twice daily diclofenac (VOLTAREN) 1 % topical gel Apply 2 g to affected area two times a day. 50 g 1 04/15/2023 04/23/2023 Discontinued Comment on above: Apply 2 g to affecte d area two times a day. docusate sodium 100 mg oral capsule (20 sources) Start: 05-11-2019 take 1 capsule by mouth every twelve hours as needed docusate sodium (COLACE) 100 mg capsule Take 1 capsule by mouth twice daily as needed for Constipation. 60 capsule 1 05/11/2019 Active Comment on above: Take 1 capsule by mo uth twice daily as needed for Constipation. Dulaglutide (TRULICITY) 3 MG/0.5ML SOPN (14 sources) Start: 01-10-2020 Dulaglutide (TRULICITY) 3 MG/0.5ML SOPN Inject 3 mg into the skin once a week Wednesday in AM 0 01/10/2020 Active Start: 01-10-2020 Dulaglutide (T RULICITY) 3 MG/0.5ML SOPN Inject 3 mg into the skin once a week 0 01/10/2020 Active enteric contrast (will be provided with radiology test) (1 source) Start: 11-12-2021 End: 11-13-2021 enteric contrast (will be provided with radiology test) Indications: Other intra-abdominal and pelvic swelling, mass and lump For CT PELVIS W IVCON order Administer, As Directed One Time Only, via Oral, Rectal, both Oral and Rectal, Enteric Tube, Stoma or Indwelling Catheter, Enteric Contrast as designated per enteric contrast guidelines 1 Each 0 11/12/2021 11/13/2021 Active Comment on above: For CT PELVIS W IVCO N order Administer, As Directed One Time Only, via Oral, Rectal, both Oral and Rectal, Enteric Tube, Stoma or Indwelling Catheter, Enteric Contrast as designated per enteric contrast guidelines fexofenadine hydrochloride 180 mg oral tablet (20 sources) Histamine-1 Receptor Antagonist Start: 08-16-2023 End: 07-28-2024 take 1 tablet by mouth once daily fexofenadine (SEFERINO) 180 mg tablet Indications: Cough , Rhinorrhea Take 1 tablet by mouth once daily. 90 tablet 3 07/28/2024 Active Start: 04-19-2020 End: 08-13-2023 take 1 tablet by mouth once daily fexofenadine (SEFERINO ALLERGY) 180 mg tablet Indications: Cough , Rhinorrhea Take 1 tablet by mouth once daily. 30 tablet 2 08/30/2020 11/25/2020 Discontinued Comment on above: Take 1 tablet by smitha th once daily. TAKE 1 TABLET BY SMITHA TH DAILY flash glucose scanning reader (FREESTYLE IZABELLA 2 READER) (20 sources) Start: 08-31-2022 flash glucose scanning reader (FREESTYLE IZABELLA 2 READER) Indications: Diabetes mellitus type 2 (HCC) 1 Each four times daily. checking blood sugars DX E11.9 Insulin Yes 1 Each 08/31/2022 Active Start: 08-31-2022 flash glucose scanning reader (FREESTYLE IZABELLA 2 READER) Indications: Diabetes mellitus type 2 (HCC) 1 Each four times daily. checking blood sugars DX E11.9 Insulin Yes 1 Each 0 08/31/2022 Active Comment on above: 1 Each four times da bert. checking blood sugars DX E11.9 Insulin Yes flash glucose sensor (FREESTYLE IZABELLA 2 SENSOR) kit (20 sources) Start: 01-25-2023 flash glucose sensor (FREESTYLE IZABELLA 2 SENSOR) kit Indications: Uncontrolled type 2 diabetes mellitus with hyperglycemia (HCC) Use to monitor blood sugars 4 times daily 6 Each 3 01/25/2023 Active Start: 01-20-2022 End: 01-25-2023 flash glucose sensor (FREEST YLE IZABELLA 2 SENSOR) kit Indications: Uncontrolled type 2 diabetes mellitus with hyperglycemia (HCC) Use to monitor blood sugars 4 times daily 6 Each 3 01/20/2022 01/25/2023 Discontinued Start: 01-20-2022 flash glucose sensor (FREESTYLE IZABELLA 2 SENSOR) kit Indications: Uncontrolled type 2 diabetes mellitus with hyperglycemia (HCC) Use to monitor blood sugars 4 times daily 6 Each 3 01/20/2022 Active Start: 04-14-2021 End: 01-20-2022 flash glucose sensor (FREEST YLE IZABELLA 2 SENSOR) kit Indications: Uncontrolled type 2 diabetes mellitus with hyperglycemia (HCC) Use to monitor blood sugars 4 times daily 6 Each 3 04/14/2021 01/20/2022 Discontinued Start: 04-14-2021 flash glucose sensor (FREESTYLE IZABELLA 2 SENSOR) kit Indications: Uncontrolled type 2 diabetes mellitus with hyperglycemia (HCC) Use to monitor blood sugars 4 times daily 6 Each 3 04/14/2021 Suspended Start: 04-14-2021 flash glucose sensor (FREESTYLE IZABELLA 2 SENSOR) kit Indications: Uncontrolled type 2 diabetes mellitus with hyperglycemia (HCC) Use to monitor blood sugars 4 times daily 6 Each 3 04/14/2021 Active Start: 09-24-2020 End: 03-06-2021 flash glucose sensor (FREEST YLE IZABELLA 2 SENSOR) kit Apply sensor to back of arm to check blood sugars as directed. Change sensor every 2 weeks and rotate arms. 7 Kit 5 09/24/2020 03/06/2021 Discontinued Comment on above: Use to monitor blood sugars 4 times daily 3 ml insulin aspart, human 100 unt/ml pen injector (3 sources) Insulin Analog Start: 11-26-2014 Insulin Aspart U-100 (Novolog Flexpen U-100 Insulin) 100 UNITS/ML insulin pen Active 4 UNITS SC WITH LUNCH July 15, 2015 11:00pm Start: 11-26-2014 Insulin Aspart U-100 (Novolog Flexpen U-100 Insulin) 100 UNITS/ML insulin pen Active 5 UNITS SC WITH DINNER November 25, 2014 11:00pm 3 ml insulin detemir 100 unt/ml pen injector (2 sources) Insulin Analog Start: 11-26-2014 Insulin Detemi r U-100 (Levemir Flextouch U-100 Insuln) 100 UNITS/ML insulin pen Active 24 UNITS SQ WITH DINNER November 25, 2014 11:00pm Start: 11-26-2014 Insulin Detemi r U-100 (Levemir Flextouch U-100 Insuln) 100 UNITS/ML insulin pen Active 20 UNITS SC DAILY November 25, 2014 11:00pm 1.5 ml insulin glargine 300 unt/ml pen injector (20 sources) Insulin Analog Start: 09-14-2024 inject 20 [IU] by subcutaneous injection once daily in the morning insulin glargine U-300 conc (TOUJEO SOLOSTAR U-300 INSULIN) 300 unit/mL (1.5 mL) Indications: Diabetes mellitus type 2 (HCC) Inject 20 Units subcutaneously every morning. 9 mL 1 09/14/2024 Active Start: 01-20-2024 End: 09-14-2024 inject 18 [IU] by subcutaneous injection once daily in the morning insulin glargine U-300 conc (TOUJEO SOLOSTAR U-300 INSULIN) 300 unit/mL (1.5 mL) Indications: Diabetes mellitus type 2 (HCC) Inject 18 Units subcutaneously every morning. 9 mL 1 01/20/2024 09/14/2024 Discontinued Start: 05-13-2023 End: 01-20-2024 inject 16 [IU] by subcutaneous injection once daily in the morning insulin glargine U-300 conc (TOUJEO SOLOSTAR U-300 INSULIN) 300 unit/mL (1.5 mL) Indications: Diabetes mellitus type 2 (HCC) Inject 16 Units subcutaneously every morning. 05/13/2023 01/20/2024 Discontinued Start: 08-10-2022 End: 11-10-2022 inject 18 [IU] by subcutaneous injection once daily in the morning insulin glargine U-300 conc (TOUJEO SOLOSTAR U-300 INSULIN) 300 unit/mL (1.5 mL) Indications: Diabetes mellitus type 2 (HCC) Inject 18 Units subcutaneously every morning. 3 Each 5 11/10/2022 Active Start: 07-27-2022 End: 08-10-2022 inject 14 [IU] by subcutaneous injection once daily in the morning insulin glargine U-300 conc (TOUJEO SOLOSTAR U-300 INSULIN) 300 unit/mL (1.5 mL) Indications: Diabetes mellitus type 2 (HCC) Inject 14 Units subcutaneously every morning. 0 07/27/2022 08/10/2022 Discontinued (Adjust Sig - Block E-Cancel) Start: 07-24-2022 Insulin Glargi ne U-300 Conc (Toujeo Solostar U-300 Insulin) 300 unit/mL (1.5 mL) insulin pen Active 18 UNIT SC DAILY July 24, 2022 12:00am Start: 07-01-2022 End: 07-27-2022 inject 18 [IU] by subcutaneous injection once daily in the morning insulin glargine U-300 conc (TOUJEO SOLOSTAR U-300 INSULIN) 300 unit/mL (1.5 mL) Indications: Diabetes mellitus type 2 (HCC) Inject 18 Units subcutaneously every morning. 0 07/01/2022 07/27/2022 Discontinued (Adjust Sig - Block E-Cancel) Start: 06-11-2022 inject 20 [IU] by mcmullen bcutaneous injection once daily in the morning insulin glargine U-300 conc (TOUJEO SOLOSTAR U-300 INSULIN) 300 unit/mL (1.5 mL) Indications: Diabetes mellitus type 2 (HCC) Inject 20 Units subcutaneously every morning. 4.5 mL 1 06/11/2022 Active Start: 05-21-2022 insulin glargi ne (Toujeo SoloStar) 300 UNIT/ML injection Indications: Type 2 Diabetes Mellitus Inject 16 Units under the skin. 0 05/21/2022 Active Start: 11-05-2021 End: 06-11-2022 inject 16 [IU] by subcutaneous injection once daily in the morning insulin glargine U-300 conc (TOUJEO SOLOSTAR U-300 INSULIN) 300 unit/mL (1.5 mL) Indications: Uncontrolled type 2 diabetes mellitus with hyperglycemia (HCC) Inject 16 Units subcutaneously every morning. 0 11/05/2021 05/21/2022 Discontinued Start: 10-06-2021 End: 11-05-2021 inject 14 [IU] by subcutaneous injection once daily in the morning insulin glargine U-300 conc (TOUJEO SOLOSTAR U-300 INSULIN) 300 unit/mL (1.5 mL) Indications: Uncontrolled type 2 diabetes mellitus with hyperglycemia (HCC) Inject 14 Units subcutaneously every morning. 0 10/06/2021 11/05/2021 Discontinued (Adjust Sig - Block E-Cancel) Start: 09-10-2021 End: 10-06-2021 inject 12 [IU] by subcutaneous injection once daily in the morning insulin glargine U-300 conc (TOUJEO SOLOSTAR U-300 INSULIN) 300 unit/mL (1.5 mL) Indications: Uncontrolled type 2 diabetes mellitus with hyperglycemia (HCC) Inject 12 Units subcutaneously every morning. 5 Pen 1 09/10/2021 10/06/2021 Discontinued (Adjust Sig - Block E-Cancel) Start: 08-06-2021 End: 09-10-2021 insulin glargine U-300 conc (TOUJEO SOLOSTAR U-300 INSULIN) 300 unit/mL (1.5 mL) Indications: Uncontrolled type 2 diabetes mellitus with hyperglycemia (HCC) INJECT 60 UNITS SUBCUTANEOUSLY EVERY MORNING 30 mL 5 08/06/2021 09/10/2021 Discontinued Start: 06-30-2021 End: 08-06-2021 insulin glargine U-300 conc (TOUJEO SOLOSTAR U-300 INSULIN) 300 unit/mL (1.5 mL) Indications: Uncontrolled type 2 diabetes mellitus with hyperglycemia (HCC) Inject 22 units once daily and increase dose every 3 days by 1 unit if fasting blood sugar >130 mg/dL. Up to 28 units. 0 06/30/2021 08/06/2021 Discontinued Start: 04-11-2021 End: 06-30-2021 insulin glargine U-300 conc (TOUJEO SOLOSTAR U-300 INSULIN) 300 unit/mL (1.5 mL) Indications: Uncontrolled type 2 diabetes mellitus with hyperglycemia (HCC) Restarting insulin at 12 units daily and increasing dose every 3 days by 1 unit if fasting blood sugar >130 mg/dL. Up to 20 units. 0 06/11/2021 06/30/2021 Discontinued (Adjust Sig - Block E-Cancel) Start: 07-04-2020 End: 01-22-2021 insulin glargine U-300 conc (TOUJEO SOLOSTAR U-300 INSULIN) 300 unit/mL (1.5 mL) Indications: Uncontrolled type 2 diabetes mellitus with hyperglycemia (HCC) Inject 58 Units subcutaneously every morning. 5 Pen 11 07/04/2020 01/22/2021 Discontinued (Adjust Sig - Block E-Cancel) Start: 03-27-2020 Insulin Glargi ne, 1 Unit Dial, (TOUJEO SOLOSTAR) 300 UNIT/ML SOPN Inject 40 Units into the skin every morning DM 0 03/27/2020 Active Start: 03-27-2020 Insulin Glargi ne, 1 Unit Dial, (TOUJEO SOLOSTAR) 300 UNIT/ML SOPN Inject 54 Units into the skin every morning DM 0 03/27/2020 Active Comment on above: Inject 60 Units subc utaneously every morning. Restarting insulin a t 12 units daily and increasing dose every 3 days by 1 unit if fasting blood sugar >130 mg/dL. Up to 20 units. Inject 22 units once daily and increase dose every 3 days by 1 unit if fasting blood sugar >130 mg/dL. Up to 28 units. INJECT 60 UNITS SUBC UTANEOUSLY EVERY MORNING Inject 12 Units subc utaneously every morning. Inject 14 Units subc utaneously every morning. Inject 16 Units subc utaneously every morning. Inject 20 Units subc utaneously every morning. Inject 18 Units subc utaneously every morning. iv contrast (will be provided with radiology test) (2 sources) Start: 11-12-2021 End: 11-13-2021 iv contrast (will be provided with radiology test) Indications: Other intra-abdominal and pelvic swelling, mass and lump CT PELVIS W -Inject, intravenously, once for 1 dose.No IV access, insert saline lock prior to the beginning of sedation, infusion, injection of imaging exam. Discontinue saline lock post exam. If Pt. has a central line or IVAD, may access for administration according to line specific nursing protocol. Once exam is complete flush line and de-access according to line specific nursing protocol in the CT contrast administration guidelines link. 1 Each 0 11/12/2021 11/13/2021 Active Start: 11-11-2021 End: 11-12-2021 iv contrast (will be provide d with radiology test) MRI Female Pelvis Inject, intravenously, once for 1 dose. No IV access, insert saline lock prior to the beginning of sedation, infusion, injection of imaging exam. Discontinue saline lock post exam. If Pt has a central line or IVAD, may access for administration according to line specific nursing protocol. Once exam is complete flush line and de-access according to line specific nursing protocol in the MR contrast administration guidelines link. 1 Each 0 11/11/2021 11/12/2021 Discontinued Comment on above: CT PELVIS W -Inject, intravenously, once for 1 dose.No IV access, insert saline lock prior to the beginning of sedation, infusion, injection of imaging exam. Discontinue saline lock post exam. If Pt. has a central line or IVAD, may access for administration according to line specific nursing protocol. Once exam is complete flush line and de-access according to line specific nursing protocol in the CT contrast administration guidelines link. MRI Female Pelvis In ject, intravenously, once for 1 dose. No IV access, insert saline lock prior to the beginning of sedation, infusion, injection of imaging exam. Discontinue saline lock post exam. If Pt has a central line or IVAD, may access for administration according to line specific nursing protocol. Once exam is complete flush line and de-access according to line specific nursing protocol in the MR contrast administration guidelines link. magnesium oxide 400 mg oral tablet (20 sources) Start: 3 End: 4 take 2 tablets by mouth once daily magnesium oxide (MAG-OX) 400 mg (241.3 mg magnesium) tablet Take 2 tablets by mouth once daily. 60 tablet 11 01/05/2024 Active Start: 03-12-2022 take 2 tablets by mo [facility] once daily magnesium oxide (MAG-OX) 400 mg (241.3 mg magnesium) tablet Take 2 tablets by mouth once daily. 60 tablet 11 03/12/2022 Active Start: 05-10-2020 End: 04-11-2021 take 2 tablets by mouth once daily magnesium oxide (MAG-OX) 400 mg (241.3 mg magnesium) tablet Take 2 tablets by mouth once daily. 60 tablet 11 05/10/2020 04/11/2021 Discontinued Start: 06-12-2019 End: 03-12-2022 take 2 tablets by mouth once daily magnesium oxide (MAG-OX) 400 mg (241.3 mg magnesium) tablet Take 2 tablets by mouth once daily. 60 tablet 11 03/12/2022 Active Comment on above: Take 2 tablets by [facility] once daily. mupirocin 0.02 mg/mg topical ointment (7 sources) RNA Synthetase Inhibitor Antibacterial Start: 2 End: 2 mupirocin (BACTROBAN) 2 % ointment Apply 0.5 inch with cotton swab (Q-tip) to each nostril in the morning and evening for 5 days prior to and including day of surgery. 22 g 0 10/13/2021 10/29/2021 Active Comment on above: Apply 0.5 inch with cotton swab (Q-tip) to each nostril in the morning and evening for 5 days prior to and including day of surgery. nystatin 100 unt/mg topical powder (5 sources) Polyene Antifungal Start: 3 nystatin (Mycostatin) [id number] UNIT/GM powder Indications: Cutaneous Candidiasis Apply 1 application topically 2 times daily. Apply topically to affected area two times daily. 60 g 2 05/26/2022 Active omeprazole 20 mg delayed release oral capsule (20 sources) Proton Pump Inhibitor Start: 2 End: 2 take 1 capsule by mouth once daily omeprazole (PRILOSEC) 20 MG delayed release capsule Take 1 capsule by mouth daily 30 capsule 5 04/29/2021 10/26/2021 Active Comment on above: Take 20 mg by mouth once daily. ondansetron 4 mg oral tablet (2 sources) Serotonin-3 Receptor Antagonist Start: 2 take 1 tablet by mouth every four to six hours as needed for nausea ondansetron (ZOFRAN) 4 MG tablet Take 1 tablet by mouth every 4-6 hours as needed for Nausea or Vomiting 30 tablet 0 05/28/2021 Active Oxygen (5 sources) oxygen (O2) gas Inhale 2 L/min Nightly. via nasal canula 0 Active OXYGEN, HOME THERAPY, (20 sources) Start: 2 OXYGEN, HOME THERAPY, 2 L/min by Mask route daily at bedtime. CPAP 2L at night 10/31/2021 Active Start: 10-31-2021 OXYGEN, HOME T HERAPY, 2 L/min by Mask route daily at bedtime. CPAP 2L at night 0 10/31/2021 Active Comment on above: 2 L/min by Mask rout e daily at bedtime. CPAP 2L at night Ozempic, 2 MG/DOSE, 8 MG/3ML solution pen-injector (5 sources) Start: 05-19-19 Ozempic, 2 MG/DOSE, 8 MG/3ML solution pen-injector Indications: Type 2 Diabetes Mellitus 1 (one) time per week. 0 05/18/2022 Active Pediatric Multivitamins-Iron (CHILDRENS MULTIVITAMIN/IRON PO) (2 sources) Start: 06-04-19 Pediatric Multivitamins-Iron (CHILDRENS MULTIVITAMIN/IRON PO) Take 2 Doses by mouth daily 0 06/03/2021 Active perflutren lipid microspheres 1.3 mL in NaCl (PF) 0.9% 10 mL injection (DEFINITY) (20 sources) Start: 03-10-19 End: 06-09-19 perflutren lipid microspheres 1.3 mL in NaCl (PF) 0.9% 10 mL injection (DEFINITY) phenazopyridine hydrochloride 200 mg oral tablet (1 source) Start: 10-23-19 take 1 tablet by mouth three times daily Phenazopyridine (Pyridium) 200 MG tablet Active 200 MG PO THREE TIMES A DAY October 21, 2016 11:00pm polyethylene glycol 3350 93379 mg powder for oral solution (20 sources) Osmotic Laxative Start: 12-08-19 take 17 g by mouth every twelve hours as needed polyethylene glycol 3350 17 gram/dose powder Take 17 g by mouth two times a day as needed for constipation. Drink a mix of 1 scoop in 8oz of water/beverage once daily as needed for constipation. 238 g 1 12/07/2022 Active Start: 05-11-2019 End: 12-07-2022 take 1 scoop(s) by mouth once daily as needed for constipation polyethylene glycol 3350 (MIRALAX, GLYCOLAX) 17 gram/dose powder Take 17 g by mouth twice daily. Drink a mix of 1 scoop in 8oz of water/beverage once daily as needed for constipation. 1 Bottle 2 05/11/2019 12/07/2022 Discontinued Comment on above: Take 17 g by mouth t wice daily. Drink a mix of 1 scoop in 8oz of water/beverage once daily as needed for constipation. Take 17 g by mouth t wo times a day as needed for constipation. Drink a mix of 1 scoop in 8oz of water/beverage once daily as needed for constipation. potassium chloride 10 meq extended release oral tablet (1 source) Start: 5 Potassium Chloride (Klor-Con 10) 10 MEQ tablet extended release Active 10 MEQ PO DAILY November 25, 2014 11:00pm rOPINIRole 0.5 mg oral tablet (20 sources) Nonergot Dopamine Agonist Start: End: 5 take 1 tablet by mouth twice daily at bedtime rOPINIRole (REQUIP) 0.5 mg tablet TAKE 1 TABLET BY MOUTH TWICE A DAY (NOON AND BEDTIME) 60 tablet 11 03/08/2024 Active Start: 01-25-2020 take 1 tablet by smitha th once daily rOPINIRole (REQUIP) 0.5 MG tablet Take 0.5 mg by mouth nightly 0 01/25/2020 Active Start: 11-14-2013 take 0.5 mg by mouth twice neno ly Ropinirole Hcl (Requip) 1 MG tablet Active 0.5 MG PO TWICE A DAY November 14, 2013 12:00am Comment on above: TAKE 1 TABLET BY SMITHA TH TWICE A DAY (NOON AND BEDTIME) semaglutide (OZEMPIC) 2 mg/dose (8 mg/3 mL) pen injector (20 sources) Start: 07-19-19 25 inject 2 mg by subcutaneous injection every week semaglutide (OZEMPIC) 2 mg/dose (8 mg/3 mL) pen injector Indications: Uncontrolled type 2 diabetes mellitus with hyperglycemia (HCC) Inject 2 mg subcutaneously one time a week. 3 mL 3 07/18/2024 Active Start: 03-30-2024 End: 07-18-2024 inject 2 mg by subcutaneous injection every week semaglutide (OZEMPIC) 2 mg/dose (8 mg/3 mL) pen injector Indications: Uncontrolled type 2 diabetes mellitus with hyperglycemia (HCC) Inject 2 mg subcutaneously one time a week. 3 mL 3 03/30/2024 07/18/2024 Discontinued Start: 03-30-2024 inject 2 mg by subcu taneous injection every week semaglutide (OZEMPIC) 2 mg/dose (8 mg/3 mL) pen injector Indications: Uncontrolled type 2 diabetes mellitus with hyperglycemia (HCC) Inject 2 mg subcutaneously one time a week. 3 mL 3 03/30/2024 Active Start: 12-16-2023 End: 03-30-2024 inject 2 mg by subcutaneous injection every week semaglutide (OZEMPIC) 2 mg/dose (8 mg/3 mL) pen injector Indications: Uncontrolled type 2 diabetes mellitus with hyperglycemia (HCC) Inject 2 mg subcutaneously one time a week. 3 mL 3 12/16/2023 03/30/2024 Discontinued Start: 12-16-2023 inject 2 mg by subcu taneous injection every week semaglutide (OZEMPIC) 2 mg/dose (8 mg/3 mL) pen injector Indications: Uncontrolled type 2 diabetes mellitus with hyperglycemia (HCC) Inject 2 mg subcutaneously one time a week. 3 mL 3 12/16/2023 Active Start: 09-01-2023 End: 12-13-2023 inject 2 mg by subcutaneous injection every week semaglutide (OZEMPIC) 2 mg/dose (8 mg/3 mL) pen injector Indications: Uncontrolled type 2 diabetes mellitus with hyperglycemia (HCC) Inject 2 mg subcutaneously one time a week. 3 mL 3 09/01/2023 12/13/2023 Discontinued Start: 09-01-2023 inject 2 mg by subcu taneous injection every week semaglutide (OZEMPIC) 2 mg/dose (8 mg/3 mL) pen injector Indications: Uncontrolled type 2 diabetes mellitus with hyperglycemia (HCC) Inject 2 mg subcutaneously one time a week. 3 mL 3 09/01/2023 Active Start: 01-25-2023 End: 09-01-2023 inject 2 mg by subcutaneous injection every week semaglutide (OZEMPIC) 2 mg/dose (8 mg/3 mL) pen injector Indications: Uncontrolled type 2 diabetes mellitus with hyperglycemia (HCC) Inject 2 mg subcutaneously one time a week. 3 mL 3 01/25/2023 09/01/2023 Discontinued Start: 01-25-2023 inject 2 mg by subcu taneous injection every week semaglutide (OZEMPIC) 2 mg/dose (8 mg/3 mL) pen injector Indications: Uncontrolled type 2 diabetes mellitus with hyperglycemia (HCC) Inject 2 mg subcutaneously one time a week. 3 mL 3 01/25/2023 Active Start: 11-12-2022 End: 01-25-2023 inject 2 mg by subcutaneous injection every week semaglutide (OZEMPIC) 2 mg/dose (8 mg/3 mL) pen injector Indications: Uncontrolled type 2 diabetes mellitus with hyperglycemia (HCC) Inject 2 mg subcutaneously one time a week. 3 mL 3 11/12/2022 01/25/2023 Discontinued Start: 11-12-2022 inject 2 mg by subcu taneous injection every week semaglutide (OZEMPIC) 2 mg/dose (8 mg/3 mL) pen injector Indications: Uncontrolled type 2 diabetes mellitus with hyperglycemia (HCC) Inject 2 mg subcutaneously one time a week. 3 mL 3 11/12/2022 Active Start: 09-14-2022 End: 11-12-2022 inject 2 mg by subcutaneous injection every week semaglutide (OZEMPIC) 2 mg/dose (8 mg/3 mL) pen injector Indications: Uncontrolled type 2 diabetes mellitus with hyperglycemia (HCC) Inject 2 mg subcutaneously one time a week. 3 mL 3 09/14/2022 11/12/2022 Discontinued Start: 09-14-2022 inject 2 mg by subcu taneous injection every week semaglutide (OZEMPIC) 2 mg/dose (8 mg/3 mL) pen injector Indications: Uncontrolled type 2 diabetes mellitus with hyperglycemia (HCC) Inject 2 mg subcutaneously one time a week. 3 mL 3 09/14/2022 Active Start: 04-29-2022 End: 09-14-2022 inject 2 mg by subcutaneous injection every week semaglutide (OZEMPIC) 2 mg/dose (8 mg/3 mL) pen injector Indications: Uncontrolled type 2 diabetes mellitus with hyperglycemia (HCC) Inject 2 mg subcutaneously one time a week. 3 mL 3 04/29/2022 09/14/2022 Discontinued Start: 04-29-2022 inject 2 mg by subcu taneous injection every week semaglutide (OZEMPIC) 2 mg/dose (8 mg/3 mL) pen injector Indications: Uncontrolled type 2 diabetes mellitus with hyperglycemia (HCC) Inject 2 mg subcutaneously one time a week. 3 mL 3 04/29/2022 Active Comment on above: Inject 2 mg subcutan eously one time a week. Semaglutide (Ozempic) 2 mg/dose (8 mg/3 mL) pen injector (1 source) Start: 3 Semaglutide (Ozempic) 2 mg/dose (8 mg/3 mL) pen injector Active 2 MG SC MCMULLEN July 24, 2022 12:00am sertraline 100 mg oral tablet (20 sources) Serotonin Reuptake Inhibitor Start: End: take 1 tablet by mouth once daily sertraline (ZOLOFT) 100 mg tablet Indications: Depression with anxiety Take 1 tablet by mouth once daily. 30 tablet 5 06/21/2024 Active Start: 03-05-2023 End: 04-15-2023 take 1 tablet by mouth once daily sertraline (ZOLOFT) 50 mg tablet Indications: Depression with anxiety Take 1 tablet by mouth once daily. 30 tablet 5 03/05/2023 04/15/2023 Discontinued Start: 12-26-2019 End: 09-22-2022 take 1 tablet by mouth once daily sertraline (ZOLOFT) 50 mg tablet Indications: Depression with anxiety Take 1 tablet by mouth once daily. 30 tablet 5 06/12/2020 11/27/2020 Discontinued Comment on above: Take 1 tablet by smitha th once daily. 125 ml sodium chloride 9 mg/ml prefilled syringe (20 sources) Start: 03-10-2022 End: 06-09-2023 sodium chloride 0.9 % (flush) 10 mL (BD POSIFLUSH) Start: 09-03-2020 0.9 % sodium c hloride infusion sulfamethoxazole 800 mg / trimethoprim 160 mg oral tablet (1 source) Dihydrofolate Reductase Inhibitor Antibacterial, Sulfonamide Antimicrobial Start: 01-11-2017 take 1 tablet by mouth twice daily Sulfamethoxazole-Trimethoprim Active 1 TABLET PO TWICE A DAY January 11, 2017 12:00am traZODone hydrochloride 50 mg oral tablet (6 sources) Serotonin Reuptake Inhibitor Start: 07-16-2015 take 50 mg by mouth at bedtime Trazodone Active 50 MG PO AT BEDTIME July 15, 2015 11:00pm valbenazine 80 mg oral capsule (20 sources) Start: 04-16-2023 take 1 capsule by mouth once daily INGREZZA 80 mg capsule Take 1 capsule by mouth once daily. 04/16/2023 Active vitamin b12 0.5 mg sublingual tablet (7 sources) Vitamin B12 Start: 06-03-2021 Cyanocobalamin [address] 1 Dose under the tongue. 0 06/03/2021 Active VITAMIN D, CHOLECALCIFEROL, PO (2 sources) Start: 06-03-2021 VITAMIN D, CHOLECALCIFEROL, PO Take 4,000 Int'l Units by mouth daily 0 06/03/2021 Active wheat dextrin 3000 mg powder for oral solution (20 sources) Start: 09-21-2019 wheat dextrin (BENEFIBER SUG AR FREE, DEXTRIN,) 3 gram/4 gram powd Indications: Irritable bowel syndrome with diarrhea 1/2 tablespoon per day x2 weeks. Then increase by 1/2 tablespoon every 2 weeks until you are taking 3 tablespoons per day in divided doses. 248 g 3 09/21/2019 Active Start: 09-21-2019 Wheat Dextrin (BENEFIBER) POWD 1/2 tablespoon per day x2 weeks. Then increase by 1/2 tablespoon every 2 weeks until you are taking 3 tablespoons per day in divided doses. 0 09/21/2019 Active Comment on above: 1/2 tablespoon per d ay x2 weeks. Then increase by 1/2 tablespoon every 2 weeks until you are taking 3 tablespoons per day in divided doses. zolpidem tartrate 5 mg oral tablet (20 sources) gamma-Aminobutyric Acid-ergic Agonist Start: 04-19-2023 End: 12-01-2024 take 1 tablet by mouth at bedtime as needed zolpidem (AMBIEN) 5 mg tablet Indications: Insomnia, unspecified type Take 1 tablet by mouth at bedtime as needed for sedation for up to 90 days. TAKE 1 TABLET BY MOUTH AT BEDTIME NEEDED FOR SEDATION Patient should start on September 02, 2024. 30 tablet 2 09/02/2024 12/01/2024 Active Start: 02-26-2022 End: 04-13-2023 take 1 tablet by mouth at bedtime as needed zolpidem (AMBIEN) 5 mg tablet Indications: Insomnia, unspecified type Take 1 tablet by mouth at bedtime as needed for sedation for up to 90 days. TAKE 1 TABLET BY MOUTH AT BEDTIME NEEDED FOR SEDATION 30 tablet 2 01/13/2023 04/02/2023 Discontinued Start: 11-14-2013 zolpidem (Ambi en) 5 MG tablet 5 mg Nightly. 0 11/14/2013 Active Start: 11-14-2013 End: 02-19-2022 zolpidem (AMBIEN) 5 mg table t Indications: Insomnia, unspecified type TAKE 1 TABLET AT BEDTIME NEEDED FOR SEDATION 30 tablet 2 08/02/2020 10/25/2020 Discontinued Comment on above: TAKE 1 TABLET AT BED TIME NEEDED FOR SEDATION Take 1 tablet by smitha th at bedtime as needed for sedation for up to 90 days. TAKE 1 TABLET BY MOUTH AT BEDTIME NEEDED FOR SEDATION Do not start before September 09, 2021. Take 1 tablet by smitha th at bedtime as needed for sedation for up to 90 days. TAKE 1 TABLET BY MOUTH AT BEDTIME NEEDED FOR SEDATION Take 1 tablet by smitha th at bedtime as needed for sedation for up to 90 days. TAKE 1 TABLET BY MOUTH AT BEDTIME NEEDED FOR SEDATION Do not start before February 26, 2022. Take 1 tablet by smitha th at bedtime as needed for sedation for up to 90 days. TAKE 1 TABLET BY MOUTH AT BEDTIME NEEDED FOR SEDATION Do not start before May 20, 2022. Take 1 tablet by smitha th at bedtime as needed for sedation for up to 90 days. TAKE 1 TABLET BY MOUTH AT BEDTIME NEEDED FOR SEDATION Do not start before August 13, 2022. Take 1 tablet by smitha th at bedtime as needed for sedation for up to 90 days. TAKE 1 TABLET BY MOUTH AT BEDTIME NEEDED FOR SEDATION Do not start before April 19, 2023. Completed/Discontinued Medications Medication Drug Class(es) Dates Sig (Normalized) Sig (Original) acetaminophen 325 mg / HYDROcodone bitartrate 5 mg oral tablet (20 sources) Opioid Agonist Start: 12-22-2021 End: 12-29-2021 take 1 tablet by mouth every eight hours as needed for pain HYDROcodone-aceta minophen (NORCO) 5-325 mg per tablet Indications: S/P total knee arthroplasty, left Take 1 tablet by mouth every 8 hours as needed for pain for up to 7 days. 20 tablet 0 12/22/2021 12/29/2021 Start: 11-17-2021 End: 12-17-2021 take 1-2 tablets by mouth every six hours as needed for pain HYDROcodone-acetaminophen (NORCO) 5-325 mg per tablet Indications: S/P total knee arthroplasty, left Take 1-2 tablets by mouth every 6 hours as needed for pain. 50 tablet 0 11/26/2021 12/10/2021 Discontinued Start: 10-30-2021 End: 11-13-2021 take 1-2 tablets by mouth every six hours as needed for pain HYDROcodone-acetaminophen (NORCO) 5-325 mg per tablet Indications: S/P total knee arthroplasty, left Take 1-2 tablets by mouth every 6 hours as needed for pain. 50 tablet 0 11/05/2021 11/13/2021 Discontinued Start: 09-27-2020 End: 10-30-2021 take 1 tablet by mouth once at bedtime as needed for pain HYDROcodone-acetaminophen (NORCO) 5-325 mg per tablet Indications: Fall, initial encounter , Acute pain of right knee Take 1 tablet by mouth at bedtime as needed for pain. 7 tablet 09/27/2020 10/30/2021 Discontinued Comment on above: Take 1 tablet by smitha th at bedtime as needed for pain. Take 1-2 tablets by mouth every 6 hours as needed for pain. Take 1 tablet by smitha th every 6 hours as needed for pain for up to 7 days. Take 1 tablet by smitha th every 8 hours as needed for pain for up to 7 days. aspirin 81 mg delayed release oral tablet (20 sources) Platelet Aggregation Inhibitor, Nonsteroidal Anti-inflammatory Drug Start: 10-30-2021 End: 03-13-2022 take 1 tablet by mouth twice daily aspirin, enteric coated (ASPIRIN, ENTERIC COATED) 81 mg EC tablet Take 1 tablet by mouth twice daily for 28 days. 56 tablet 0 10/30/2021 03/13/2022 Discontinued Start: 11-27-2019 End: 10-30-2021 take 1 tablet by mouth once daily aspirin, enteric coated (ASPIRIN, ENTERIC COATED) 81 mg EC tablet Take 1 tablet by mouth once daily. 30 tablet 11 05/10/2020 04/11/2021 Discontinued Start: 11-26-2014 take 81 mg by mouth once daily Aspirin Active 81 MG PO DAILY@0800 November 25, 2014 11:00pm Comment on above: Take 1 tablet by smitha th once daily. Take 1 tablet by smitha th twice daily for 28 days. Blood-Glucose Meter,Continuous (DEXCOM G6 RN QUALITY) misc (20 sources) Start: 03-31-2022 End: 07-01-2022 Blood-Glucose Meter,Continuous (DEXCOM G6 RN QUALITY) misc Indications: Uncontrolled type 2 diabetes mellitus with hyperglycemia (HCC) Use to check blood sugar at least four (4) times daily. 1 Each 0 03/31/2022 07/01/2022 Discontinued (Cost of medication) Start: 03-31-2022 Blood-Glucose Meter,Continuous (DEXCOM G6 RN QUALITY) misc Indications: Uncontrolled type 2 diabetes mellitus with hyperglycemia (HCC) Use to check blood sugar at least four (4) times daily. 1 Each 0 03/31/2022 Active Comment on above: Use to check blood s ugar at least four (4) times daily. Blood-Glucose Sensor (DEXCOM G6 SENSOR) tere (20 sources) Start: 03-31-2022 End: 07-01-2022 Blood-Glucose Sensor (DEXCOM G6 SENSOR) tere Indications: Uncontrolled type 2 diabetes mellitus with hyperglycemia (HCC) Apply new sensor every ten (10) days to abdomen. 9 Each 3 03/31/2022 07/01/2022 Discontinued (Cost of medication) Start: 03-31-2022 Blood-Glucose Sensor (DEXCOM G6 SENSOR) tere Indications: Uncontrolled type 2 diabetes mellitus with hyperglycemia (HCC) Apply new sensor every ten (10) days to abdomen. 9 Each 3 03/31/2022 Active Comment on above: Apply new sensor joaquin ry ten (10) days to abdomen. Blood-Glucose Transmitter (DEXCOM G6 TRANSMITTER) tere (20 sources) Start: 03-31-2022 End: 07-01-2022 Blood-Glucose Transmitter (DEXCOM G6 TRANSMITTER) tere Indications: Uncontrolled type 2 diabetes mellitus with hyperglycemia (HCC) Apply new transmitter every 90 days. Clean transmitter with an alcohol swab with each sensor change. 1 Each 3 03/31/2022 07/01/2022 Discontinued (Cost of medication) Start: 03-31-2022 Blood-Glucose Transmitter (DEXCOM G6 TRANSMITTER) tere Indications: Uncontrolled type 2 diabetes mellitus with hyperglycemia (HCC) Apply new transmitter every 90 days. Clean transmitter with an alcohol swab with each sensor change. 1 Each 3 03/31/2022 Active Comment on above: Apply new transmitte r every 90 days. Clean transmitter with an alcohol swab with each sensor change. COMPOUNDED PRESCRIPTION (20 sources) Start: 06-07-2018 End: 04-23-2023 COMPOUNDED PRESCRIPTION Indications: ARIANA (obstructive sleep apnea) , Low oxygen saturation , Shortness of breath on exertion PORTABLE OXYGEN TANKS FOR USE IN BACK PACK USES 3 Lpm WHEN ON PORTABLE TANK to use with exertion DX R79.81 4 Each 06/07/2018 04/23/2023 Discontinued Start: 06-07-2018 COMPOUNDED PRE SCRIPTION Indications: ARIANA (obstructive sleep apnea) , Low oxygen saturation , Shortness of breath on exertion PORTABLE OXYGEN TANKS FOR USE IN BACK PACK USES 3 Lpm WHEN ON PORTABLE TANK to use with exertion DX R79.81 4 Each 06/07/2018 Suspended Start: 06-07-2018 COMPOUNDED PRE SCRIPTION Indications: ARIANA (obstructive sleep apnea) , Low oxygen saturation , Shortness of breath on exertion PORTABLE OXYGEN TANKS FOR USE IN BACK PACK USES 3 Lpm WHEN ON PORTABLE TANK to use with exertion DX R79.81 4 Each 06/07/2018 Active Start: 05-27-2018 End: 04-23-2023 COMPOUNDED PRESCRIPTION Viviana cations: ARIANA (obstructive sleep apnea) EMERGENCY BACKUP OXYGEN TANK FOR WHEN PATIENT LOSES ELECTRICITY DX R79.81 1 Each 05/27/2018 04/23/2023 Discontinued Start: 05-27-2018 COMPOUNDED PRE SCRIPTION Indications: ARIANA (obstructive sleep apnea) EMERGENCY BACKUP OXYGEN TANK FOR WHEN PATIENT LOSES ELECTRICITY DX R79.81 1 Each 05/27/2018 Suspended Start: 05-27-2018 COMPOUNDED PRE SCRIPTION Indications: ARIANA (obstructive sleep apnea) EMERGENCY BACKUP OXYGEN TANK FOR WHEN PATIENT LOSES ELECTRICITY DX R79.81 1 Each 05/27/2018 Active Start: 04-29-2018 End: 04-23-2023 COMPOUNDED PRESCRIPTION Home Oxygen, 2 litres with cpap machine 1 Each 04/29/2018 04/23/2023 Discontinued Start: 04-29-2018 End: 04-23-2023 COMPOUNDED PRESCRIPTION Viviana cations: ARIANA (obstructive sleep apnea) , Low O2 saturation , Shortness of breath CPAP supplies Dx: G47.33 1 Box 04/29/2018 04/23/2023 Discontinued Start: 04-29-2018 End: 04-23-2023 COMPOUNDED PRESCRIPTION Home Oxygen, 2 litres with cpap machine 1 Each 0 04/29/2018 04/23/2023 Discontinued Start: 04-29-2018 COMPOUNDED PRE SCRIPTION Indications: ARIANA (obstructive sleep apnea) , Low O2 saturation , Shortness of breath Oxygen supplies dx: R79.81 R06.02 1 Each 04/29/2018 Suspended Start: 04-29-2018 COMPOUNDED PRE SCRIPTION Indications: ARIANA (obstructive sleep apnea) , Low O2 saturation , Shortness of breath CPAP supplies Dx: G47.33 1 Box 04/29/2018 Suspended Start: 04-29-2018 COMPOUNDED PRE SCRIPTION Home Oxygen, 2 litres with cpap machine 1 Each 0 04/29/2018 Suspended Start: 04-29-2018 COMPOUNDED PRE SCRIPTION Indications: ARIANA (obstructive sleep apnea) , Low O2 saturation , Shortness of breath Oxygen supplies dx: R79.81 R06.02 1 Each 04/29/2018 Active Start: 04-29-2018 COMPOUNDED PRE SCRIPTION Indications: ARIANA (obstructive sleep apnea) , Low O2 saturation , Shortness of breath CPAP supplies Dx: G47.33 1 Box 04/29/2018 Active Start: 04-29-2018 COMPOUNDED PRE SCRIPTION Home Oxygen, 2 litres with cpap machine 1 Each 0 04/29/2018 Active Comment on above: Oxygen supplies dx: R79.81 R06.02 CPAP supplies Dx: G4 7.33 Home Oxygen, 2 litre s with cpap machine EMERGENCY BACKUP OXY GEN TANK FOR WHEN PATIENT LOSES ELECTRICITY DX R79.81 PORTABLE OXYGEN TANK S FOR USE IN BACK PACK USES 3 Lpm WHEN ON PORTABLE TANK to use with exertion DX R79.81 CPAP (20 sources) Start: 05-27-2018 End: 06-11-2022 CPAP Indications: ARIANA (obstructive sleep apnea) Initiate AutoPAP @ 10/20 cm of water with EPR of 3 , humidification. Mask (per patient preference) optional chin strap (if indicated) , filters, tubing, humidifier and lifetime supplies. Dx. ARIANA 327.23 1 Device 05/27/2018 06/11/2022 Discontinued Start: 05-27-2018 End: 06-11-2022 CPAP Indications: ARIANA (obstr uctive sleep apnea) Initiate AutoPAP @ 10/20 cm of water with EPR of 3 , humidification. Mask (per patient preference) optional chin strap (if indicated) , filters, tubing, humidifier and lifetime supplies. Dx. ARIANA 327.23 1 Device 0 05/27/2018 06/11/2022 Discontinued Start: 05-27-2018 CPAP Indicatio ns: ARIANA (obstructive sleep apnea) Initiate AutoPAP @ 10/20 cm of water with EPR of 3 , humidification. Mask (per patient preference) optional chin strap (if indicated) , filters, tubing, humidifier and lifetime supplies. Dx. ARIANA 327.23 1 Device 0 05/27/2018 Suspended Start: 05-27-2018 CPAP Indicatio ns: ARIANA (obstructive sleep apnea) Initiate AutoPAP @ 10/20 cm of water with EPR of 3 , humidification. Mask (per patient preference) optional chin strap (if indicated) , filters, tubing, humidifier and lifetime supplies. Dx. ARIANA 327.23 1 Device 0 05/27/2018 Active Comment on above: Initiate AutoPAP @ 1 0/20 cm of water with EPR of 3 , humidification. Mask (per patient preference) optional chin strap (if indicated) , filters, tubing, humidifier and lifetime supplies. Dx. ARIANA 327.23 0.5 ml dulaglutide 3 mg/ml auto-injector (16 sources) GLP-1 Receptor Agonist Start: 01-27-2022 End: 03-13-2022 dulaglutide (TRULICITY) 1.5 mg/0.5 mL pen injector Inject 1.5 mg subcutaneously one time a week. Use 3 mg and 1.5 mg trulicity injection to equal 4.5 mg one time a week. 2 mL 5 01/27/2022 03/13/2022 Discontinued Comment on above: Inject 1.5 mg subcut aneously one time a week. Use 3 mg and 1.5 mg trulicity injection to equal 4.5 mg one time a week. dulaglutide (TRULICITY) 3 mg/0.5 mL pen injector (17 sources) Start: 01-27-2022 End: 03-13-2022 dulaglutide (TRULICITY) 3 mg/0.5 mL pen injector Inject 3 mg subcutaneously one time a week. Use 3 mg and 1.5 mg trulicity injection to equal 4.5 mg one time a week. 2 mL 5 01/27/2022 03/13/2022 Discontinued Start: 01-27-2022 dulaglutide (T RULICITY) 3 mg/0.5 mL pen injector Inject 3 mg subcutaneously one time a week. Use 3 mg and 1.5 mg trulicity injection to equal 4.5 mg one time a week. 2 mL 5 01/27/2022 Active Start: 05-10-2020 End: 10-23-2020 inject 3 mg by subcutaneous injection every week dulaglutide (TRULICITY) 3 mg/0.5 mL pen injector Indications: Uncontrolled type 2 diabetes mellitus with hyperglycemia (HCC) Inject 3 mg subcutaneously one time a week. 4 Each 05/10/2020 10/23/2020 Discontinued Comment on above: Inject 3 mg subcutan eously one time a week. Use 3 mg and 1.5 mg trulicity injection to equal 4.5 mg one time a week. dulaglutide (TRULICITY) 4.5 mg/0.5 mL pen injector (20 sources) Start: 023 End: 023 inject 4.5 mg by subcutaneous injection every week dulaglutide (TRULICITY) 4.5 mg/0.5 mL pen injector INJECT 4.5MG SUBCUTANEOUSLY ONCE A WEEK 2 mL 5 03/12/2022 03/13/2022 Discontinued Start: 03-12-2022 inject 4.5 mg by sub cutaneous injection every week dulaglutide (TRULICITY) 4.5 mg/0.5 mL pen injector INJECT 4.5MG SUBCUTANEOUSLY ONCE A WEEK 2 mL 5 03/12/2022 Active Start: 04-11-2021 inject 4.5 mg by sub cutaneous injection every week dulaglutide (TRULICITY) 4.5 mg/0.5 mL pen injector Inject 4.5 mg subcutaneously one time a week. 2 mL 5 04/11/2021 Active Comment on above: Inject 4.5 mg subcut aneously one time a week. INJECT 4.5MG SUBCUTA NEOUSLY ONCE A WEEK flash glucose scanning reader (FREESTYLE IZABELLA 14 DAY READER) (1 source) Start: 09-22-19 End: 01-20-20 22 flash glucose scanning reader (FREESTYLE IZABELLA 14 DAY READER) Indications: Uncontrolled type 2 diabetes mellitus with hyperglycemia (HCC) 1 Each once daily. 1 Each 09/22/2019 03/06/2021 Discontinued furosemide 20 mg oral tablet (20 sources) Loop Diuretic Start: 11-27-19 End: 12-12-19 22 take 1 tablet by mouth once daily furosemide (LASIX) 20 mg tablet Take 1 tablet by mouth once daily. 30 tablet 5 08/02/2020 01/21/2021 Discontinued Comment on above: Take 1 tablet by smitha th once daily. gabapentin 600 mg oral tablet (20 sources) Anti-epileptic Agent Start: 04-11-19 End: 04-20-19 26 take 3 capsules by mouth once daily at lunch gabapentin (NEURONTIN) 300 mg capsule Take 3 capsules by mouth daily at lunch 90 capsule 5 04/27/2024 10/19/2024 Discontinued Start: 03-14-2021 End: 04-18-2025 take 3 tablets by mouth once daily at bedtime gabapentin (NEURONTIN) 600 mg tablet Indications: Neuropathy Take 3 tablets by mouth daily at bedtime for 180 days. 90 tablet 5 04/27/2024 10/19/2024 Discontinued Start: 06-13-2020 End: 11-25-2020 take 3 capsules by mouth once daily at lunch gabapentin (NEURONTIN) 300 mg capsule Take 3 capsules by mouth daily with lunch for 180 days. 270 capsule 1 06/13/2020 11/25/2020 Discontinued Start: 06-12-2020 End: 10-01-2020 take 3 tablets by mouth once daily at bedtime gabapentin (NEURONTIN) 600 mg tablet Take 3 tablets by mouth daily at bedtime for 90 days. 90 tablet 2 06/12/2020 10/01/2020 Discontinued Start: 04-15-2020 take 1 capsule by mo [facility] once daily gabapentin (NEURONTIN) 300 MG capsule Take 300 mg by mouth daily. 0 04/15/2020 Active Start: 04-15-2020 take 1 tablet by smitha th once daily gabapentin (NEURONTIN) 600 MG tablet Take 600 mg by mouth nightly. 0 04/15/2020 Active Start: 11-26-2014 Gabapentin (Gr sima) 600 MG tablet extended release 24 hr Active 1200 MG PO WITH LUNCH November 26, 2014 12:00am Start: 11-26-2014 take 1 tablet by smitha every twenty-four hours at lunch Gabapentin (Gralise) 600 MG tablet extended release 24 hr Active 600 MG PO WITH LUNCH November 25, 2014 11:00pm Start: 11-14-2013 Gabapentin (Ne urontin) 800 MG tablet Active 1800 MG PO AT BEDTIME November 14, 2013 12:00am Comment on above: Take 3 tablets by mo uth daily at bedtime for 90 days. TAKE 3 CAPSULES BY M OUTH DAILY WITH LUNCH TAKE 3 TABLETS BY MO UTH AT BEDTIME Take 3 tablets by mo uth daily at bedtime for 180 days. Take 3 capsules by m outh daily at lunch glimepiride 4 mg oral tablet (15 sources) Sulfonylurea Start: 07-12-19 End: 10-24-19 take 1 tablet by mouth twice daily at mealtime glimepiride (AMARYL) 4 mg tablet Indications: Uncontrolled type 2 diabetes mellitus with hyperglycemia (HCC) Take 1 tablet by mouth twice daily with meals. 180 tablet 3 06/12/2020 10/23/2020 Discontinued 3 ml insulin lispro 100 unt/ml pen injector (20 sources) Insulin Analog Start: 04-14-19 End: 09-11-19 insulin lispro (HUMALOG KWIKPEN INSULIN) 100 unit/mL HOLDING since bariatric procedure May. Inject 4 units before breakfast and 8 units before lunch and 16 units before dinner plus sliding scale 1 unit for every 50 above 150 Daily max 50 units 0 06/11/2021 09/10/2021 Discontinued (Clinical Decision) Start: 09-05-2020 End: 12-18-2020 insulin lispro (HUMALOG KWIK PEN INSULIN) 100 unit/mL Indications: Uncontrolled type 2 diabetes mellitus with hyperglycemia (HCC) Inject 4 units before breakfast and lunch and 14 units before dinner plus sliding scale 1 unit for every 50 above 150 Daily max 50 units 6 Pen 11 09/05/2020 12/18/2020 Discontinued (Adjust Sig - Block E-Cancel) Start: 03-27-2020 insulin lispro , 1 Unit Dial, 100 UNIT/ML SOPN DM 0 03/27/2020 Active Comment on above: Inject 4 units befor e breakfast and 8 units before lunch and 16 units before dinner plus sliding scale 1 unit for every 50 above 150 Daily max 50 units HOLDING since bariat max procedure May. Inject 4 units before breakfast and 8 units before lunch and 16 units before dinner plus sliding scale 1 unit for every 50 above 150 Daily max 50 units meclizine hydrochloride 25 mg oral tablet (20 sources) Antiemetic Start: 11-09-19 End: 03-13-19 take 1 tablet by mouth three times daily as needed for dizziness meclizine (ANTIVERT) 25 mg tab Indications: Vertigo Take 1 tablet by mouth three times daily as needed (dizziness). 15 tablet 11/08/2017 03/13/2022 Discontinued (Discontinued by Patient) Start: 12-28-2014 take 25 mg by mouth four times daily as needed Meclizine Active 25 MG PO 4 TIMES DAILY NEEDED December 28, 2014 12:00am Comment on above: Take 1 tablet by smitha th three times daily as needed (dizziness). meloxicam 15 mg oral tablet (20 sources) Nonsteroidal Anti-inflammatory Drug Start: 01-25-20 End: 10-31-19 take 1 tablet by mouth once daily meloxicam (MOBIC) 15 mg tablet Take 1 tablet by mouth once daily. 28 tablet 11 07/04/2020 10/30/2021 Discontinued Comment on above: Take 1 tablet by smitha th once daily. 24 hr metFORMIN hydrochloride 500 mg extended release oral tablet (20 sources) Biguanide Start: 05-09-19 End: 12-19-19 metFORMIN XR (Glucophage-XR) 500 MG 24 hr tablet Indications: Type 2 Diabetes Mellitus 500 mg before bedtime. 0 05/08/2022 12/18/2022 Discontinued (Therapy completed) Start: 01-25-2020 End: 06-12-2022 metFORMIN ER (GLUCOPHAGE XR) 500 mg 24 hr tablet Indications: Uncontrolled type 2 diabetes mellitus with hyperglycemia (HCC) TAKE 3 TABLETS DAILY WITH MEALS 90 tablet 5 09/24/2020 03/14/2021 Discontinued Start: 11-14-2013 take 2 tablets by mo [facility] once daily Metformin (Glucophage) 1,000 MG tablet Active 2000 MG PO DAILY November 13, 2013 11:00pm Comment on above: TAKE 3 TABLETS DAILY WITH MEALS TAKE 2 TABLETS DAILY WITH MEALS Take 1 tablet by smitha th daily with breakfast. Miscellaneous Medical Supply (20 sources) Start: 09-16-2022 End: 04-23-2023 Miscellaneous Medical Supply D/C CPAP - last sleep study not showing ARIANA. Confirmed with pulmonary as well. 1 Each 0 09/16/2022 04/23/2023 Discontinued Start: 09-16-2022 Miscellaneous Medical Supply D/C CPAP - last sleep study not showing ARIANA. Confirmed with pulmonary as well. 1 Each 0 09/16/2022 Active Comment on above: D/C CPAP - last slee p study not showing ARIANA. Confirmed with pulmonary as well. semaglutide (OZEMPIC) 1 mg/dose (4 mg/3 mL) pen (20 sources) Start: 12-22-19 End: 04-23-19 inject 1 mg by subcutaneous injection every week semaglutide (OZEMPIC) 1 mg/dose (4 mg/3 mL) pen Indications: Uncontrolled type 2 diabetes mellitus with hyperglycemia (HCC) Inject 1 mg subcutaneously one time a week. 3 mL 2 12/21/2022 04/23/2023 Discontinued Start: 12-21-2022 inject 1 mg by subcu taneous injection every week semaglutide (OZEMPIC) 1 mg/dose (4 mg/3 mL) pen Indications: Uncontrolled type 2 diabetes mellitus with hyperglycemia (HCC) Inject 1 mg subcutaneously one time a week. 3 mL 2 12/21/2022 Active Start: 03-13-2022 End: 04-29-2022 inject 1 mg by subcutaneous injection every week semaglutide (OZEMPIC) 1 mg/dose (4 mg/3 mL) pen Inject 1 mg subcutaneously one time a week. 3 mL 5 03/13/2022 04/29/2022 Discontinued (Changing Therapy/Dosage Form) Start: 03-13-2022 inject 1 mg by subcu taneous injection every week semaglutide (OZEMPIC) 1 mg/dose (4 mg/3 mL) pen Inject 1 mg subcutaneously one time a week. 3 mL 5 03/13/2022 Active Start: 03-13-2022 End: 03-13-2022 inject 1 mg by subcutaneous injection every week semaglutide (OZEMPIC) 1 mg/dose (4 mg/3 mL) pen Inject 1 mg subcutaneously one time a week. 3 mL 5 03/13/2022 03/13/2022 Discontinued Start: 03-06-2022 End: 03-13-2022 inject 1 mg by subcutaneous injection every week semaglutide (OZEMPIC) 1 mg/dose (4 mg/3 mL) pen Inject 1 mg subcutaneously one time a week. 3 mL 5 03/06/2022 03/13/2022 Discontinued (Discontinued by Patient) Start: 03-06-2022 inject 1 mg by subcu taneous injection every week semaglutide (OZEMPIC) 1 mg/dose (4 mg/3 mL) pen Inject 1 mg subcutaneously one time a week. 3 mL 5 03/06/2022 Active Comment on above: Inject 1 mg subcutan eously one time a week. Surgical Lubricant Jelly gel (20 sources) Start: 11-11-2021 End: 04-23-2023 Surgical Lubricant Jelly gel For MRI Female Pelvis, MRI department to provide. Administer intra-vaginal Surgilube immediately prior the MRI procedure (total amount to patient toleranace). 5 g 1 11/11/2021 04/23/2023 Discontinued Start: 11-11-2021 Surgical Lubri cant Jelly gel For MRI Female Pelvis, MRI department to provide. Administer intra-vaginal Surgilube immediately prior the MRI procedure (total amount to patient toleranace). 5 g 1 11/11/2021 Active Comment on above: For MRI Female Pelvi s, MRI department to provide. Administer intra-vaginal Surgilube immediately prior the MRI procedure (total amount to patient toleranace). tolterodine tartrate 2 mg oral tablet (7 sources) Cholinergic Muscarinic Antagonist Start: 02-27-2020 End: 01-22-2021 tolterodine (DETROL) 2 mg tablet TAKE 1 TABLET TWICE A DAY 56 tablet 5 02/27/2020 01/22/2021 Discontinued (Discontinued by Patient) Start: 11-14-2013 take 2 mg by mouth twice daily Tolterodine Active 2 MG PO TWICE A DAY November 13, 2013 11:00pm TRULICITY 4.5 mg/0.5 mL pen injector (20 sources) Start: 10-01-2021 End: 03-12-2022 inject 4.5 mg by subcutaneous injection every week TRULICITY 4.5 mg/0.5 mL pen injector INJECT 4.5MG SUBCUTANEOUSLY ONCE A WEEK 2 mL 5 10/01/2021 03/12/2022 Discontinued Start: 10-01-2021 inject 4.5 mg by sub cutaneous injection every week TRULICITY 4.5 mg/0.5 mL pen injector INJECT 4.5MG SUBCUTANEOUSLY ONCE A WEEK 2 mL 5 10/01/2021 Suspended Start: 10-01-2021 inject 4.5 mg by sub cutaneous injection every week TRULICITY 4.5 mg/0.5 mL pen injector INJECT 4.5MG SUBCUTANEOUSLY ONCE A WEEK 2 mL 5 10/01/2021 Active Comment on above: INJECT 4.5MG SUBCUTA NEOUSLY ONCE A WEEK Zinc (10 sources) Start: 3 End: 3 take 1 tablet by mouth once daily zinc 25 MG tablet Take 1 tablet by mouth daily. 0 03/19/2022 05/26/2022 Discontinued Start: 03-19-2022 take 1 tablet by smitha th once daily zinc 25 MG tablet Take 1 tablet by mouth daily. 0 03/19/2022 Active take 1 tablet by smitha th every other day zinc 25 MG tablet Take 25 mg by mouth every other day. 0 Active Problems Active Problems Problem Classification Problem Date Documented Da te Episodic/Chronic Adjustment disorders (20 sources) Grief finding; Translations: [Adjustment disorder with depressed mood] Onset: 9 08-01-2018 Chronic Anxiety disorders (20 sources) Posttraumatic stress disorder; Translations: [Post-traumatic stress disorder, unspecified] Onset: 3 02-10-2021 Chronic Benign neoplasm of uterus (1 source) Leiomyoma of uterus, unspecified; Translations: [Leiomyoma of uterus, unspecified] Onset: 3 Episodic Cataract (20 sources) Bilateral cataracts; Translations: [Unspecified cataract] Onset: 4 02-10-2021 Chronic Delirium, dementia, and amnestic and other cognitive disorders (2 sources) Postconcussion syndrome; Translations: [Postconcussional syndrome] 03-17-2016 Chronic Diabetes mellitus with complications (20 sources) Type II diabetes mellitus uncontrolled; Translations: [Type 2 diabetes mellitus with hyperglycemia] Chronic Diabetes mellitus without complication (20 sources) Diabetes mellitus; Translations: [Type 2 diabetes mellitus without complications] Onset: 3 05-10-2020 Chronic Disorders of lipid metabolism (20 sources) Hypercholesterolemia; Translations: [Pure hypercholesterolemia, unspecified] Onset: 3 05-10-2020 Chronic E Codes: Fall (1 source) Fall; Translations: [Unspecified fall, initial encounter] 09-27-2020 Episodic Esophageal disorders (20 sources) Gastroesophageal reflux disease without esophagitis; Translations: [Gastro-esophageal reflux disease without esophagitis] Onset: 2 05-28-2021 Chronic Essential hypertension (11 sources) Essential hypertension; Translations: [Essential (primary) hypertension] Onset: 2 12-01-2021 Chronic Headache; including migraine (2 sources) Migraine without aura; Translations: [Migraine without aura, not intractable, without status migrainosus] 03-17-2016 Chronic Immunizations and screening for infectious disease (1 source) Patient encounter status; Translations: [Encounter for immunization] 01-20-2024 Episodic Intracranial injury (2 sources) Concussion injury of body structure; Translations: [Concussion] 03-17-2016 Episodic Mood disorders (2 sources) Major depressive disorder, single episode, unspecified; Translations: [Major depressive disorder, single episode, unspecified] Onset: 2 Chronic Mood disorders (2 sources) Mood disorders; Translations: [Depression, unspecified] Onset: 2 Noninfectious gastroenteritis (2 sources) Chronic diarrhea; Translations: [Noninfective gastroenteritis and colitis, unspecified] Episodic Nutritional deficiencies (20 sources) Vitamin D deficiency; Translations: [Vitamin D deficiency, unspecified] Onset: 4 10-11-2013 Chronic Nutritional deficiencies (16 sources) Deficiency of other specified B group vitamins; Translations: [Ascorbic acid deficiency] Onset: 2 Episodic Osteoarthritis (20 sources) Osteoarthritis of left knee joint; Translations: [Unilateral primary osteoarthritis, left knee] Onset: 7 04-14-2016 Chronic Other aftercare (4 sources) correction (current) use of insulin; Translations: [correction (current) use of insulin] Onset: 2 Episodic Other congenital anomalies (20 sources) Congenital pes cavus; Translations: [Congenital pes cavus, unspecified foot] Onset: 6 04-15-2015 Chronic Other congenital anomalies (1 source) Disorder of bone; Translations: [Congenital malformation of musculoskeletal system, unspecified] 01-13-2023 Chronic Other connective tissue disease (9 sources) History of total knee arthroplasty; Translations: [Presence of left artificial knee joint] Chronic Other connective tissue disease (1 source) Pain in left arm; Translations: [Pain in left arm] 04-15-2023 Episodic Other connective tissue disease (1 source) Muscle weakness of upper limb; Translations: [Other symptoms and signs involving the musculoskeletal system] 05-01-2024 Episodic Other connective tissue disease (1 source) Spasm; Translations: [Other muscle spasm] 09-11-2024 Episodic Other diseases of bladder and urethra (20 sources) Overactive bladder; Translations: [Other neuromuscular dysfunction of bladder] Onset: 4 02-10-2021 Chronic Other ear and sense organ disorders (1 source) Hearing loss of left ear; Translations: [Unspecified hearing loss, left ear] 05-01-2024 Chronic Other ear and sense organ disorders (2 sources) Hearing loss in left ear; Translations: [Unspecified hearing loss, left ear] 05-15-2024 Chronic Other ear and sense organ disorders (3 sources) Impacted cerumen in left ear; Translations: [Impacted cerumen, left ear] 05-01-2024 Episodic Other female genital disorders (1 source) Cyst of uterine adnexa; Translations: [Unspecified condition associated with female genital organs and menstrual cycle] Episodic Other fractures (4 sources) Fracture of rib; Translations: [Fracture of one rib, left side, initial encounter for closed fracture] 12-16-2020 Episodic Other gastrointestinal disorders (20 sources) Irritable bowel syndrome; Translations: [Irritable bowel syndrome without diarrhea] Onset: 4 02-10-2021 Chronic Other gastrointestinal disorders (4 sources) Intestinal malabsorption, unspecified; Translations: [Intestinal malabsorption, unspecified] Onset: 2 Chronic Other gastrointestinal disorders (2 sources) Irritable bowel syndrome with diarrhea; Translations: [Irritable bowel syndrome with diarrhea] Onset: 2 Chronic Other gastrointestinal disorders (2 sources) Irritable bowel syndrome without diarrhea; Translations: [Irritable bowel syndrome without diarrhea] Onset: 2 Chronic Other gastrointestinal disorders (5 sources) Intestinal malabsorption; Translations: [Intestinal malabsorption, unspecified] Chronic Other gastrointestinal disorders (1 source) Irritable bowel syndrome with diarrhea; Translations: [Irritable bowel syndrome with diarrhea] 10-12-2022 Chronic Other gastrointestinal disorders (2 sources) History of bypass of stomach; Translations: [Bariatric surgery status] Episodic Other gastrointestinal disorders (1 source) History of bariatric surgical procedure; Translations: [Bariatric surgery status] Episodic Other gastrointestinal disorders (2 sources) Bariatric surgery status; Translations: [Bariatric surgery status] Onset: 3 Episodic Other hereditary and degenerative nervous system conditions (20 sources) Restless legs; Translations: [Restless legs syndrome] Onset: 3 11-22-2012 Chronic Other hereditary and degenerative nervous system conditions (1 source) Restless legs syndrome; Translations: [RLS (restless legs syndrome)] Onset: 3 Chronic Other liver diseases (2 sources) Steatosis of liver; Translations: [Fatty (change of) liver, not elsewhere classified] 11-15-2022 Chronic Other liver diseases (5 sources) Elevated liver enzymes level; Translations: [Abnormal levels of other serum enzymes] 09-30-2022 Episodic Other lower respiratory disease (9 sources) Cough; Translations: [Cough] Episodic Other lower respiratory disease (1 source) Dyspnea; Translations: [Shortness of breath] Episodic Other lower respiratory disease (1 source) Restrictive lung disease; Translations: [Other disorders of lung] 04-23-2023 Episodic Other nervous system disorders (9 sources) Neuropathy; Translations: [Polyneuropathy, unspecified] Chronic Other nervous system disorders (1 source) Walking disability; Translations: [Difficulty in walking, not elsewhere classified] 05-01-2024 Chronic Other nervous system disorders (1 source) Observation of sensation; Translations: [Other disturbances of skin sensation] 09-11-2024 Episodic Other non-traumatic joint disorders (3 sources) Arthrofibrosis of left knee; Translations: [Ankylosis, left knee] Chronic Other non-traumatic joint disorders (3 sources) Chronic pain of left upper limb; Translations: [Pain in left shoulder] 07-15-2023 Episodic Other non-traumatic joint disorders (1 source) Disorder of shoulder; Translations: [Other specified joint disorders, unspecified shoulder] 10-25-2023 Episodic Other nutritional; endocrine; and metabolic disorders (20 sources) Morbid obesity; Translations: [Morbid (severe) obesity due to excess calories] Onset: 2 05-08-2020 Chronic Other nutritional; endocrine; and metabolic disorders (20 sources) Obesity; Translations: [Obesity, unspecified] Onset: 4 Resolved: 7 05-28-2021 Chronic Other nutritional; endocrine; and metabolic disorders (2 sources) Morbid (severe) obesity due to excess calories; Translations: [Morbid (severe) obesity due to excess calories] Onset: 2 Chronic Other nutritional; endocrine; and metabolic disorders (2 sources) Body mass index (BMI) 40.0-44.9, adult; Translations: [Body mass index [BMI] 40.0-44.9, adult] Onset: 2 Chronic Other nutritional; endocrine; and metabolic disorders (4 sources) Obesity, unspecified; Translations: [Obesity, unspecified] Onset: 2 Chronic Other nutritional; endocrine; and metabolic disorders (2 sources) Body mass index (BMI) 45.0-49.9, adult; Translations: [Body mass index [BMI] 45.0-49.9, adult] Onset: 2 Chronic Other nutritional; endocrine; and metabolic disorders (2 sources) Body mass index (BMI) 50.0-59.9, adult; Translations: [Body mass index [BMI] 50.0-59.9, adult] Onset: 2 Chronic Other nutritional; endocrine; and metabolic disorders (1 source) Body mass index 30+ - obesity; Translations: [Body mass index (BMI) 32.0-32.9, adult] 12-18-2022 Chronic Other nutritional; endocrine; and metabolic disorders (2 sources) Body mass index (BMI) 32.0-32.9, adult; Translations: [Body mass index (BMI) 32.0-32.9, adult] Onset: 2 Chronic Other nutritional; endocrine; and metabolic disorders (2 sources) Other obesity due to excess calories; Translations: [Other obesity due to excess calories] Onset: 2 Chronic Other nutritional; endocrine; and metabolic disorders (2 sources) Body mass index (BMI) 34.0-34.9, adult; Translations: [Body mass index (BMI) 34.0-34.9, adult] Onset: 2 Chronic Other skin disorders (1 source) Disorder of sweat gland; Translations: [Eccrine sweat disorder, unspecified] 01-20-2024 Episodic Other upper respiratory disease (9 sources) Nasal discharge; Translations: [Other specified disorders of nose and nasal sinuses] Episodic Ovarian cyst (3 sources) Cyst of right ovary; Translations: [Unspecified ovarian cyst, right side] Episodic Parkinson`s disease (20 sources) Parkinson's disease; Translations: [Parkinson's disease] Onset: 3 Resolved: 8 04-05-2019 Chronic Parkinson`s disease (2 sources) Parkinson`s disease; Translations: [Parkinson's disease, unspecified whether dyskinesia present, unspecified whether manifestations fluctuate (HCC)] Onset: 0 Residual codes; unclassified (20 sources) Obstructive sleep apnea syndrome; Translations: [Obstructive sleep apnea (adult) (pediatric)] Onset: 4 05-10-2020 Chronic Residual codes; unclassified (20 sources) History of implantation of artificial sphincter; Translations: [Presence of other specified functional implants] Onset: 8 12-31-2017 Chronic Residual codes; unclassified (1 source) Sleep apnea; Translations: [Sleep apnea, unspecified] Chronic Residual codes; unclassified (5 sources) Obstructive sleep apnea (adult) (pediatric); Translations: [Obstructive sleep apnea (adult) (pediatric)] Onset: 2 Chronic Residual codes; unclassified (7 sources) Hypoxia; Translations: [Idiopathic sleep related nonobstructive alveolar hypoventilation] Chronic Residual codes; unclassified (2 sources) Finding related to sleep; Translations: [Sleep apnea, unspecified] 09-14-2022 Chronic Residual codes; unclassified (19 sources) Insomnia; Translations: [Insomnia, unspecified] Episodic Residual codes; unclassified (1 source) Left before being seen; Translations: [Procedure and treatment not carried out due to patient leaving prior to being seen by health care provider] Episodic Residual codes; unclassified (1 source) Intolerant of heat; Translations: [Other general symptoms and signs] 01-20-2024 Episodic Residual codes; unclassified (3 sources) Menopause present; Translations: [Asymptomatic menopausal state] 01-20-2024 Episodic Residual codes; unclassified (1 source) Activity of daily living (ADL) alteration; Translations: [Other specified health status] 03-29-2024 Episodic Screening and history of mental health and substance abuse codes (3 sources) Personal history of nicotine dependence; Translations: [Patient encounter status] Onset: Episodic Urinary tract infections (2 sources) Urinary tract infectious disease; Translations: [Urinary tract infection, site not specified] 10-23-2016 Episodic Past or Other Problems Problem Classification Problem Date Documented Da te Episodic/Chronic Abdominal hernia (18 sources) Hiatal hernia; Translations: [Diaphragmatic hernia without obstruction or gangrene] Onset: 10-31-2020 10-31-2020 Episodic Complications of surgical procedures or medical care (20 sources) Wound dehiscence; Translations: [Disruption of wound, unspecified, initial encounter] Onset: 12-28-2016 12-28-2016 Episodic Conditions associated with dizziness or vertigo (20 sources) Benign paroxysmal positional vertigo; Translations: [Benign paroxysmal vertigo, unspecified ear] Onset: 02-05-2015 02-05-2015 Episodic Genitourinary symptoms and ill-defined conditions (20 sources) Urinary incontinence; Translations: [Unspecified urinary incontinence] Onset: 02-09-2013 Resolved: 03-28-2013 03-28-2013 Chronic Genitourinary symptoms and ill-defined conditions (20 sources) Urgent desire to urinate; Translations: [Urgency of urination] Onset: 03-09-2013 Resolved: 07-11-2013 07-11-2013 Episodic Intestinal infection (19 sources) Infection caused by Helicobacter pylori; Translations: [Other specified bacterial intestinal infections] Onset: 09-11-2020 09-11-2020 Episodic Malaise and fatigue (3 sources) Fatigue; Translations: [Other fatigue] Onset: 01-20-2024 Episodic Miscellaneous mental health disorders (20 sources) Primary insomnia; Translations: [Primary insomnia] Onset: 03-19-2015 Resolved: 08-12-2016 08-12-2016 Chronic Nausea and vomiting (20 sources) Nausea; Translations: [Nausea] Onset: 02-09-2013 Resolved: 08-12-2016 08-12-2016 Episodic Nonspecific chest pain (11 sources) Chest pain; Translations: [Other chest pain] Onset: 10-06-2021 12-01-2021 Episodic Open wounds of head; neck; and trunk (20 sources) Wound ; Translations: [Unspecified open wound of unspecified buttock, initial encounter] Onset: 03-10-2019 03-10-2019 Episodic Other aftercare (2 sources) correction (current) use of oral hypoglycemic drugs; Translations: [correction (current) use of oral hypoglycemic drugs] Onset: 07-01-2021 Episodic Other aftercare (2 sources) Other fci (current) drug therapy; Translations: [Other terminal block assembler (current) drug therapy] Onset: 05-28-2021 Episodic Other aftercare (2 sources) buttermaker (current) use of aspirin; Translations: [correction (current) use of aspirin] Onset: 05-28-2021 Episodic Other connective tissue disease (20 sources) Plantar fasciitis of right foot; Translations: [Plantar fascial fibromatosis] Onset: 04-15-2015 11-22-2017 Episodic Other connective tissue disease (20 sources) Other symptoms and signs involving the musculoskeletal system; Translations: [Other musculoskeletal symptoms referable to limbs] Onset: 11-04-2014 Resolved: 08-12-2016 08-12-2016 Episodic Other connective tissue disease (20 sources) Cramp; Translations: [Cramp and spasm] Onset: 04-15-2015 Resolved: 08-12-2016 08-12-2016 Episodic Other connective tissue disease (20 sources) Trigger thumb of right hand; Translations: [Trigger thumb, right thumb] Onset: 11-04-2015 Resolved: 08-12-2016 08-12-2016 Episodic Other connective tissue disease (20 sources) Tibialis posterior tendinitis ; Translations: [Posterior tibial tendinitis, unspecified leg] Onset: 04-07-2016 Resolved: 08-12-2016 08-12-2016 Episodic Other connective tissue disease (1 source) Other muscle spasm; Translations: [Muscle spasm] Onset: 09-11-2024 Episodic Other gastrointestinal disorders (20 sources) Incontinence of feces; Translations: [Full incontinence of feces] Onset: 10-06-2016 10-06-2016 Episodic Other gastrointestinal disorders (20 sources) Complete fecal incontinence; Translations: [Full incontinence of feces] Onset: 07-08-2016 Resolved: 07-10-2016 07-10-2016 Episodic Other hereditary and degenerative nervous system conditions (20 sources) Movement disorder; Translations: [Extrapyramidal and movement disorder, unspecified] Onset: 12-28-2012 Resolved: 08-12-2016 08-12-2016 Chronic Other hereditary and degenerative nervous system conditions (20 sources) Tardive dyskinesia; Translations: [Drug induced subacute dyskinesia] Onset: 01-04-2013 02-10-2021 Episodic Other hereditary and degenerative nervous system conditions (2 sources) Drug induced subacute dyskinesia; Translations: [Tardive dyskinesia] Onset: 02-10-2021 Episodic Other lower respiratory disease (20 sources) Finding of respiration; Translations: [Unspecified abnormalities of breathing] Onset: 06-01-2013 06-01-2013 Episodic Other lower respiratory disease (20 sources) Wheezing; Translations: [Wheezing] Onset: 11-29-2012 Resolved: 08-12-2016 08-12-2016 Episodic Other lower respiratory disease (20 sources) Dyspnea on exertion; Translations: [Shortness of breath] Onset: 02-09-2013 Resolved: 08-12-2016 08-12-2016 Episodic Other nervous system disorders (20 sources) Paresthesia; Translations: [Paresthesia of skin] Onset: 10-11-2013 Resolved: 10-06-2016 02-10-2021 Episodic Other nervous system disorders (20 sources) Postoperative pain ; Translations: [Other acute postprocedural pain] Onset: 07-10-2016 Resolved: 08-12-2016 08-12-2016 Episodic Other nervous system disorders (1 source) Other disturbances of skin sensation; Translations: [Electrical shock sensation] Onset: 09-11-2024 Episodic Other non-traumatic joint disorders (20 sources) Pain in left knee; Translations: [Pain in joint, lower leg] Onset: 12-03-2014 Resolved: 08-12-2016 04-14-2016 Episodic Other non-traumatic joint disorders (20 sources) Pain in lower limb; Translations: [Pain in unspecified knee] Onset: 02-19-2014 Resolved: 08-12-2016 08-12-2016 Episodic Other non-traumatic joint disorders (20 sources) Ankle instability; Translations: [Other instability, unspecified ankle] Onset: 04-07-2016 Resolved: 08-12-2016 08-12-2016 Episodic Other nutritional; endocrine; and metabolic disorders (20 sources) Body mass index 40+ - severely obese; Translations: [Morbid (severe) obesity due to excess calories] Onset: 08-26-2016 Resolved: 07-08-2022 Chronic Other nutritional; endocrine; and metabolic disorders (20 sources) Hypomagnesemia; Translations: [Hypomagnesemia] Onset: 07-10-2016 Resolved: 07-10-2016 07-10-2016 Chronic Other screening for suspected conditions (not mental disorders or infectious disease) (20 sources) Oxygen saturation below reference range; Translations: [Abnormal blood-gas level] Onset: 12-28-2012 02-10-2021 Episodic Other skin disorders (1 source) Eccrine sweat disorder, unspecified; Translations: [Sweating abnormality] Onset: 01-20-2024 Episodic Residual codes; unclassified (20 sources) Edema of foot; Translations: [Localized edema] Onset: 11-22-2013 11-22-2013 Episodic Residual codes; unclassified (20 sources) History of sleeve gastrectomy; Translations: [Acquired absence of stomach [part of]] Onset: 10-13-2021 Episodic Residual codes; unclassified (20 sources) Swelling; Translations: [Edema, unspecified] Onset: 10-13-2021 Episodic Residual codes; unclassified (1 source) Asymptomatic menopausal state; Translations: [Asymptomatic menopause] Onset: 04-24-2024 Episodic Residual codes; unclassified (1 source) Other general symptoms and signs; Translations: [Intolerance to heat] Onset: 01-20-2024 Episodic Schizophrenia and other psychotic disorders (20 sources) Schizoaffective disorder; Translations: [Schizoaffective disorder, unspecified] Onset: 11-15-2012 Resolved: 06-23-2016 02-10-2021 Chronic Spondylosis; intervertebral disc disorders; other back problems (20 sources) Backache; Translations: [Dorsalgia, unspecified] Onset: 05-10-2020 05-10-2020 Episodic Results Test Name Value Interpretation Reference Range Facility [facility] 12-12-2024 OV Office Visit (INTMWS ) MELANIE BIRD ([id number]) 1955 F Date Time Provider Department 12/12/24 10:00 AM MODESTA DALEY During your visit today, we recorded the following information about you: Pulse Blood pressure Weight 66/minute 122/70 84 kg Modesta Daley MD 12/12/2024 1:10 PM Signed Melanie Bird is a 69 year old female here for a Medicare Wellness visit. Medicare Health Risk Assessment General Health Good Exercise: Minutes/Day 10 min Exercise: Days/Week 7 days Alcohol: Daily Use Never Alcohol: Drinks/Day Patient does not drink Alcohol: 6 or more drinks Never Feel off balance Yes Concerns: Teeth/Dentures No Concerns: Sexual function No Troubled by feelings Lonely Frequency: Eating healthy diet More than half the days ADLs requiring help Grocery shopping; Cooking; Housework Safety precautions in home/vehicle Yes Smoke, vape, chews tobacco No Difficulty hearing Yes Difficulty seeing No Current Providers Specialists: I have reviewed specialist-related care of the patient in the medical record. Medical/Family history review Reviewed and updated problem list, medical/surgical/family/soc ial history, medications, and allergies. Opioid use review Prescribed: No opioid use on file in the last 90 days Patient-reported: No opioid use on file in the last 90 days Depression screening PHQ-2 Score: 0 (12/12/2024 10:19 AM) Based on score and interview, patient is not at risk for depression. Recommendation: no further intervention at this time Anxiety screening Cognitive screening Mini Cog Score: 3 Cognitive screening reviewed and No further action needed (score 3-5). Functional Observation Was the patient's Timed Up AND Go test unsteady or >= 12 seconds? No Advance Directives Surrogate decision maker and/or advance care plan documented Measurements BP 122/70 Pulse 66 Wt 84 kg (185 lb 3.2 oz) LMP 04/10/2012 (Approximate) SpO2 97% BMI 31.79 kg/m? Vision Screening: Follows with optometry/ophthalmology Assessment/Plan Medicare annual wellness visit, subsequent (Z00.00) - Counseled on healthy diet and regular exercise - Fall avoidance information provided - Personalized prevention plan provided Reason for Visit Chronic medical condition review HPI Melanie Bird is a 69-year-old female with a history of obesity, ARIANA, incontinence, IBS, cholecystectomy, tremors, and DM, presenting for a Medicare Annual Wellness Visit. Melanie reports significant weight loss, which has allowed her to discontinue daytime oxygen use and CPAP therapy. However, she continues to use supplemental oxygen at night due to nocturnal desaturation as recommended by Dr. May. She also reports a history of incontinence, for which a magnetic device was previously implanted. The device was removed due to recurrent infections and poor wound healing, which was attributed to her body's rejection of the device as a foreign object. She continues to experience frequent diarrhea secondary to IBS and is unable to take antidiarrheal medication due to a prior cholecystectomy. She engages in daily 10-minute walks around her living area, using a cane for stability and always carrying a phone for safety. She reports eating a healthy diet more than half the days of the week, primarily consuming [employer] and [employer] dinners due to her inability to cook. She is able to perform her own grocery shopping with the assistance of her sister, Leonie Escalante, who helps her reach items and provides support to prevent falls. She requires assistance with housework and laundry, which is provided by a home health aide twice a week. She is able to bathe independently using a walk-in shower and shower chair, and can dress herself without assistance. She no longer drives and relies on her sister for transportation. Melanie is currently taking Ingrezza and amantadine for tremors, which she reports are effective for approximately 2 hours after administration but notes that the tremors worsen around 1500. She is also on insulin and semaglutide for DM management, with a recent HbA1c of 7.4%. Additional medications include acyclovir, a statin, clonidine, docusate as needed, Neurontin, Requip, Zoloft, and Ambien, which she takes nightly. She reports her memory as okay and manages her medications with the help of [id number], which provides monthly pre-packaged doses. SOCIAL HISTORY[1] Past medical history, appointments, medications, allergies reviewed. Pertinent Lab/Diagnostic Studies are reviewed and discussed today Current Outpatient Medications: atorvastatin (LIPITOR) 20 mg tablet sertraline (ZOLOFT) 100 mg tablet zolpidem (AMBIEN) 5 mg tablet semaglutide (OZEMPIC) 2 mg/dose (8 mg/3 mL) pen injector gabapentin (NEURONTIN) 600 mg tablet gabapentin (NEURONTIN) 300 mg capsule insulin glargine U-300 conc (more content not included)... Normal [facility] ALBUMIN/CREATININE RATIO, UR INEon 12-11-2024 Albumin DL <= 20 mg/L (U) [Mass/Vol] mg/dL Normal [facility] Comment on above: Order Comment: Speci men Type: URINE SPECIMENOrdering Facility: [facility] Address: [address] [place] [address] Performed By: #### U ACR ####[facility] LABCLIA [id number] [place] [address] [place] Albumin/Creatinine (U) [Mass ratio] <26 Normal <30 [facility] Comment on above: Order Comment: Speci men Type: URINE SPECIMENOrdering Facility: [facility] Address: [address] [place] [address] Result Comment: Adul t Male and Female Nephrotic Criteria: <30 mg/g is considered normal to mildly increased 30-300 mg/g is considered moderately increased >300 mg/g is considered severely increased KDIGO. (2013). KDIGO 2012 Clinical Practice Guideline for the Evaluation and Management of Chronic Kidney Disease. Official Journal of the International Society of Nephrology, 3(1), 1-150. Performed By: #### U ACR ####[facility] LABCLIA [id number] [place] [address] [place] Creatinine (U) [Mass/Vol] 45.9 mg/dL Normal 20.0-300.0 [facility] Comment on above: Order Comment: Speci men Type: URINE SPECIMENOrdering Facility: [facility] Address: [address] [place] [address] Performed By: #### U ACR ####[facility] LABCLIA [id number] [address] [facility] [place] Lipid 1996 panelon 5 Cholesterol [Mass/Vol] 124 mg/dL Normal <200 [facility] Comment on above: Order Comment: Zbigniewi men Type: BLOOD SPECIMENOrdering Facility: [facility] Address: [address] [place] [address] Result Comment: <200 mg/dL, Desirable 200-239 mg/dL, Borderline high >239 mg/dL, High Performed By: #### 2 4331-1 ####[facility] LABCLIA [id number] [address] [place] Cholesterol in HDL [Mass/Vol] 50 mg/dL Normal >39 [facility] Comment on above: Order Comment: Chivo men Type: BLOOD SPECIMENOrdering Facility: [facility] Address: [address] [place] [address] Result Comment: 40-5 9 mg/dL, Acceptable >59 mg/dL, High: Negative risk factor for coronary heart disease <40 mg/dL, Low: Positive risk factor for coronary heart disease Performed By: #### 2 4331-1 ####[facility] LABCLIA [id number] [address] STATES [facility] Cholesterol in LDL [Mass/Vol] 58 mg/dL Normal <100 [facility] Comment on above: Order Comment: Chivo finnegan Type: BLOOD SPECIMENOrdering Facility: [facility] Address: [address] [place] [address] Result Comment: <100 mg/dL, Optimal 100-129 mg/dL, Near optimal/above optimal 130-159 mg/dL, Borderline high 160-189 mg/dL, High >189 mg/dL, Very high Secondary prevention optimal LDL Cholesterol levels are recommended to be <70 mg/dL LDL cholesterol is calculated using the Santiago-NIH equation. Performed By: #### 2 4331-1 ####[facility] LABCLIA [id number] [address] [place] Cholesterol in LDL/Cholesterol in HDL [Mass ratio] 1.16 {ratio} Normal <2.54 [facility] Comment on above: Order Comment: Speci men Type: BLOOD SPECIMENOrdering Facility: [facility] Address: [address] [place] [address] Result Comment: Kunal gomez: 1. National Cholesterol Education Program ATP III Guideline At-A-Glance Quick Desk Reference: National Heart, Lung, and Blood [place]. National Institutes of Health. 2001: NIH Publication No. 01-3305. 2. An International Atherosclerosis Society position paper: global recommendations for the management of dyslipidemia: executive summary, Atherosclerosis. 2014: 232(2):410-413. Performed By: #### 2 4331-1 ####[facility] LABCLIA [id number] [place] [address] [place] Cholesterol in VLDL [Mass/Vol] 12 mg/dL Normal <30 [facility] Comment on above: Order Comment: Zbigniewi sivan Type: BLOOD SPECIMENOrdering Facility: [facility] Address: [address] [place] [address] Performed By: #### 2 4331-1 ####[facility] LABCLIA [id number] [place] [address] [place] Cholesterol non HDL [Mass/Vol] 74 mg/dL Normal <130 [facility] Comment on above: Order Comment: Zbigniewi sivan Type: BLOOD SPECIMENOrdering Facility: [facility] Address: [address] [place] [address] Result Comment: <130 mg/dL, Optimal 130-159 mg/dL, Near optimal/above optimal 160-189 mg/dL, Borderline high 190-219 mg/dL, High >219 mg/dL, Very high Secondary prevention optimal non HDL Cholesterol levels are recommended to be <100 mg/dL Performed By: #### 2 4331-1 ####[facility] LABCLIA [id number] [place] [address] [place] Cholesterol.total/Cho lesterol in HDL [Mass ratio] 2.48 {ratio} Normal <5.10 [facility] Comment on above: Order Comment: Zbigniewi men Type: BLOOD SPECIMENOrdering Facility: [facility] Address: [address] [place] [address] Performed By: #### 2 4331-1 ####[facility] LABCLIA [id number] [address] [place] FASTING TIME 15 hrs Normal [facility] Comment on above: Order Comment: Speci men Type: BLOOD SPECIMENOrdering Facility: [facility] Address: [address] [place] [address] Performed By: #### 2 4331-1 ####[facility] LABCLIA [id number] [address] [place] [facility] Triglyceride [Mass/Vol] 84 mg/dL Normal <150 [facility] Comment on above: Order Comment: Speci men Type: BLOOD SPECIMENOrdering Facility: [facility] Address: [address] [place] [address] Result Comment: <150 mg/dL, Normal 150-199 mg/dL, Borderline high 200-499 mg/dL, High >499 mg/dL, Very high Performed By: #### 2 4331-1 ####[facility] LABCLIA [id number] [address] [place] CBC W Auto Differential pane l (Bld)on 09-11-2024 Basophils (Bld) [#/Vol] 0.07 10*3/uL [facility] Basophils/100 WBC (Bld) 0.8 % [facility] Differential cell count method Nom (Bld) Auto [facility] Eosinophils (Bld) [#/Vol] 0.11 10*3/uL [facility] Eosinophils/100 WBC (Bld) 1.3 % [facility] Erythrocyte distribution width (RBC) [Ratio] 11.8 % 11.5 - 15.0 % [facility] Hematocrit (Bld) [Volume fraction] 46.5 % High 36.0 - 46.0 % [facility] Hemoglobin (Bld) [Mass/Vol] 15.5 g/dL 11.5 - 15.5 g/dL [facility] Immature granulocytes (Bld) [#/Vol] 0.03 10*3/uL [facility] Immature granulocytes/100 WBC (Bld) 0.3 % [facility] Interpretation and review of laboratory results Abnormal [facility] Lymphocytes (Bld) [#/Vol] 2.15 10*3/uL [facility] Lymphocytes/100 WBC (Bld) 24.7 % [facility] MCH (RBC) [Entitic mass] 32.8 pg 26.0 - 34.0 pg [facility] MCHC (RBC) [Mass/Vol] 33.3 g/dL 30.5 - 36.0 g/dL [facility] MCV (RBC) [Entitic vol] 98.3 fL 80.0 - 100.0 fL [facility] Monocytes (Bld) [#/Vol] 0.62 10*3/uL NINF [facility] Monocytes/100 WBC (Bld) 7.1 % [facility] Neutrophils (Bld) [#/Vol] 5.73 10*3/uL [facility] Neutrophils/100 WBC (Bld) 65.8 % [facility] Nucleated RBC (Bld) [#/Vol] NINF [facility] Nucleated RBC/100 WBC (Bld) [Ratio] 0 % /100 WBC [facility] Platelet mean volume (Bld) [Entitic vol] 11.3 fL 9.0 - 12.7 fL [facility] Platelets (Bld) [#/Vol] 243 10*3/uL [facility] RBC (Bld) [#/Vol] 4.73 10*6/uL 3.90 - 5.2 0 m/uL [facility] WBC (Bld) [#/Vol] 8.71 10*3/uL [facility] Basophils (Bld) [#/Vol] 0.07 10*3/uL Normal <0.11 [facility] Comment on above: Order Comment: Speci men Type: BLOOD SPECIMENOrdering Facility: [facility] [facility] Address: [address] [place] [address] Performed By: #### 5 7021-8 ####[facility] LABCLIA [id number] [address] [place] Basophils/100 WBC (Bld) 0.8 % Normal [facility] Comment on above: Order Comment: Speci men Type: BLOOD SPECIMENOrdering Facility: [facility] Address: [address] [place] [address] Performed By: #### 5 7021-8 ####[facility] LABCLIA [id number] [address], [place] [address] [place] Differential cell count method Nom (Bld) Auto Normal [facility] Comment on above: Order Comment: Speci men Type: BLOOD SPECIMENOrdering Facility: [facility] Address: [address] [place] [address] Performed By: #### 5 7021-8 ####[facility] LABCLIA [id number] [address], [place] [address] [place] Eosinophils (Bld) [#/Vol] 0.11 10*3/uL Normal <0.46 [facility] Comment on above: Order Comment: Speci men Type: BLOOD SPECIMENOrdering Facility: [facility] Address: [address] [place] [address] Performed By: #### 5 7021-8 ####[facility] LABCLIA [id number] [place] [address] [place] Eosinophils/100 WBC (Bld) 1.3 % Normal [facility] Comment on above: Order Comment: Speci men Type: BLOOD SPECIMENOrdering Facility: [facility] Address: [address] [place] [address] Performed By: #### 5 7021-8 ####[facility] LABCLIA [id number] [place] [address] [place] Erythrocyte distribution width (RBC) [Ratio] 11.8 % Normal 11.5-15.0 [facility] Comment on above: Order Comment: Speci men Type: BLOOD SPECIMENOrdering Facility: [facility] Address: [address] [place] [address] Performed By: #### 5 7021-8 ####[facility] LABCLIA [id number] [place] [id number] [place] Hematocrit (Bld) [Volume fraction] 46.5 % High 36.0-46.0 [facility] Comment on above: Order Comment: Speci men Type: BLOOD SPECIMENOrdering Facility: [facility] Address: [address] [place] [address] Performed By: #### 5 7021-8 ####[facility] LABIA [id number] [address] [address] [place] Hemoglobin (Bld) [Mass/Vol] 15.5 g/dL Normal 11.5-15.5 [facility] Comment on above: Order Comment: Speci men Type: BLOOD SPECIMENOrdering Facility: [facility] Address: [address] [place] [address] Performed By: #### 5 7021-8 ####[facility] LABIA [id number] [place] [address] [place] Immature granulocytes (Bld) [#/Vol] 0.03 10*3/uL Normal <0.10 [facility] Comment on above: Order Comment: Speci men Type: BLOOD SPECIMENOrdering Facility: [facility] Address: [address] [place] [address] Performed By: #### 5 7021-8 ####[facility] LABIA [id number] [place] [address] [place] Immature granulocytes/100 WBC (Bld) 0.3 % Normal [facility] Comment on above: Order Comment: Speci men Type: BLOOD SPECIMENOrdering Facility: [facility] Address: [address] [place] [address] Performed By: #### 5 7021-8 ####[facility] LABIA [id number] [place] [address] [place] Lymphocytes (Bld) [#/Vol] 2.15 10*3/uL Normal 1.00-4.00 [facility] Comment on above: Order Comment: Speci men Type: BLOOD SPECIMENOrdering Facility: [facility] Address: [address] [place] [address] Performed By: #### 5 7021-8 ####[facility] LABCLIA [id number] [place] [address] [place] Lymphocytes/100 WBC (Bld) 24.7 % Normal [facility] Comment on above: Order Comment: Speci men Type: BLOOD SPECIMENOrdering Facility: [facility] Address: [address] [place] [address] Performed By: #### 5 7021-8 ####[facility] LABIA [id number] [place] [address] [place] MCH (RBC) [Entitic mass] 32.8 pg Normal 26.0-34.0 [facility] Comment on above: Order Comment: Speci men Type: BLOOD SPECIMENOrdering Facility: [facility] Address: [address] [place] [address] Performed By: #### 5 7021-8 ####[facility] LABIA [id number] [place] [address] [place] MCHC (RBC) [Mass/Vol] 33.3 g/dL Normal 30.5-36.0 [facility] Comment on above: Order Comment: Speci men Type: BLOOD SPECIMENOrdering Facility: [facility] Address: [address] [place] [address] Performed By: #### 5 7021-8 ####[facility] LABIA [id number] [place] [address] [place] MCV (RBC) [Entitic vol] 98.3 fL Normal 80.0-100.0 [facility] Comment on above: Order Comment: Speci men Type: BLOOD SPECIMENOrdering Facility: [facility] Address: [address] [place] [address] Performed By: #### 5 7021-8 ####[facility] LABIA [id number] [place] [address] [place] Monocytes (Bld) [#/Vol] 0.62 10*3/uL Normal <0.87 [facility] Comment on above: Order Comment: Speci men Type: BLOOD SPECIMENOrdering Facility: [facility] Address: [address] [place] [address] Performed By: #### 5 7021-8 ####[facility] LABCLIA [id number] [facility] [place] [address] [place] Monocytes/100 WBC (Bld) 7.1 % Normal [facility] Comment on above: Order Comment: Speci men Type: BLOOD SPECIMENOrdering Facility: [facility] Address: [address] [place] [address] Performed By: #### 5 7021-8 ####[facility] LABCLIA [id number] [place] [address] [place] Neutrophils (Bld) [#/Vol] 5.73 10*3/uL Normal 1.45-7.50 [facility] Comment on above: Order Comment: Speci men Type: BLOOD SPECIMENOrdering Facility: [facility] Address: [address] [place] [address] Performed By: #### 5 7021-8 ####[facility] LABCLIA [id number] [place] [address] [place] Neutrophils/100 WBC (Bld) 65.8 % Normal [facility] Comment on above: Order Comment: Speci men Type: BLOOD SPECIMENOrdering Facility: [facility] Address: [address] [place] [address] Performed By: #### 5 7021-8 ####[facility] LABCLIA [id number] [place] [address] [place] Nucleated RBC (Bld) [#/Vol] 10*3/uL Normal <0.01 [facility] Comment on above: Order Comment: Speci men Type: BLOOD SPECIMENOrdering Facility: [facility] Address: [address] [place], [place] [address] Performed By: #### 5 7021-8 ####[facility] LABCLIA [id number] [address] [place] [address] [place] Nucleated RBC/100 WBC (Bld) [Ratio] 0.0 /100 WBC Normal [facility] Comment on above: Order Comment: Speci men Type: BLOOD SPECIMENOrdering Facility: [facility] Address: [address] [place] [address] Performed By: #### 5 7021-8 ####[facility] LABCLIA [id number] [address] [place] [address] [place] Platelet mean volume (Bld) [Entitic vol] 11.3 fL Normal 9.0-12.7 [facility] Comment on above: Order Comment: Speci men Type: BLOOD SPECIMENOrdering Facility: [facility] Address: [address] [place] [address] Performed By: #### 5 7021-8 ####[facility] LABCLIA [id number] [address] [place] [address] [place] Platelets (Bld) [#/Vol] 243 10*3/uL Normal 150-400 [facility] Comment on above: Order Comment: Speci men Type: BLOOD SPECIMENOrdering Facility: [facility] Address: [address] [place] [address] Performed By: #### 5 7021-8 ####[facility] LABCLIA [id number] [facility] [address] [place] [address] [place] RBC (Bld) [#/Vol] 4.73 10*6/uL Normal 3.90-5.20 [facility] Comment on above: Order Comment: Speci men Type: BLOOD SPECIMENOrdering Facility: [facility] Address: [address] [place] [address] Performed By: #### 5 7021-8 ####[facility] LABCLIA [id number] [facility] [address] [place] WBC (Bld) [#/Vol] 8.71 10*3/uL Normal 3.70-11.00 [facility] Comment on above: Order Comment: Speci men Type: BLOOD SPECIMENOrdering Facility: [facility] Address: [address] [place] [address] Performed By: #### 5 7021-8 ####[facility] LABCLIA [id number] [facility] [address] [place] CNOVon 09-11-2024 CNOV Office Visit (INTMWS ) MELANIE BIRD ([id number]) 1955 F Date Time Provider Department 09/11/24 9:00 AM INNA SMALL During your visit today, we recorded the following information about you: Pulse Respiration Blood pressure Weight 72/minute 16/minute 118/68 81.2 kg Inna Small APRN.[facility] 09/11/2024 2:22 PM Signed CC: Patient presents with: Recheck: 3 month follow up [facility] Melanie Byrnes [place] is a 69 year old female who presents today for 3 month follow up DIABETES MELLITUS: Ms. Bird was last seen 3 months ago. Since our last visit she denies excessive thirst or increased frequency of urination, chest pain or dyspnea , numbness, tingling or pain in extremities, new or unusual visual symptoms, low sugar/hypoglycemic reactions, weight loss/gain, lightheadedness/dizziness, and bowel changes/loose stools. Follows a diabetic diet most of the time, generally not very much, this is contributed to difficulty cooking or preparing meals at home due to parkinsons. She is compliant with medication(s) and is tolerating med(s) without any side effects. She reports checking her glucose on a four times a day schedule with sugars in the <150 range. Patient's last HgA1C was Hemoglobin A1C (%) Date Value 04/24/2024 7.0 01/11/2024 7.2 11/15/2020 7.0 09/02/2020 7.2 Hemoglobin A1C (POCT) (%) Date Value 07/15/2023 6.7 04/15/2023 7.1 ) Last Ophthalmology exam was within the past 3 months Parkinsons: Patient following with neurology for this. Patient denies any new or worsening weakness. States having difficulty preparing or cooking meals, so has been eating TV dinners to compensate for this. Did have a meal delivery service but unable to open the prepared foods so this was canceled. Brother in law law drives her to appointments. Denies recent fall or injuries, compliant with medications. ARIANA: Patient reports wearing 2L O2 NC at bedtime for ARIANA. Denies waking up in the middle of the gasping for air, shortness of breath or wheezing. States complaint with oxygen regimen. Chronic Insomnia: fci usage of ambien for this. Denies any side effects of medication. Calf Pain: Patient reports for the past 2-3 weeks left calf pain, states occurs while siting. Describes the pain as an electrical shock sensation, states relieved after patient massages area for a while. Denies injury, discoloration, deformity, redness, numbness to area, weakness, swelling, or tenderness. REVIEW OF SYSTEMS See HPI PAST MEDICAL HISTORY Diagnosis Date Depression Diabetes mellitus type 2, uncontrolled High cholesterol History of colon polyps History of gallstones IBS (irritable bowel syndrome) Obesity 04/25/2013 BMI 48.43 ARIANA (obstructive sleep apnea) 03/06/2013 Parkinson disease (HCC) PAST SURGICAL HISTORY Procedure Laterality Date ANAL SPHINCTEROPLASTY SPHINCTEROPLASTY ANAL W/ IMPLANT ARTIFICIAL SPHINCTER ADULT BARIATRIC SURGERY HX 05/28/2021 CATARACT EXTRACTION HX Bilateral 08/2012 COLONOSCOPY GEN ANES 04/2019 INCISE FINGER TENDON SHEATH 12/20/2012 Left 3rd trigger finger release MANIPULATION KNEE JOINT UNDER GENERAL ANESTHESIA Left 01/23/2022 Left knee manipulation under anesthesia PAST SURGICAL HISTORY OF 06/2012 Interstim PAST SURGICAL HISTORY OF Right trigger thumb REMOVAL GALLBLADDER 2001 REMOVAL OF OVARY/TUBE(S) Bilateral 07/31/2022 Laparoscopic BSO and Myomectomy at [facility]- Dr. Delacruz TOTAL KNEE REPLACEMENT Left 10/29/2021 Left robotic total knee replacement ALLERGIES Seroquel [Quetiapine Fumarate] and Victoza [Liraglutide] MEDICATIONS zolpidem (AMBIEN) 5 mg tablet Take 1 tablet by mouth at bedtime as needed for sedation for up to 90 days. TAKE 1 TABLET BY MOUTH AT BEDTIME NEEDED FOR SEDATION Patient should start on September 02, 2024. fexofenadine (SEFERINO) 180 mg tablet Take 1 tablet by mouth once daily. semaglutide (OZEMPIC) 2 mg/dose (8 mg/3 mL) pen injector Inject 2 mg subcutaneously one time a week. sertraline (ZOLOFT) 100 mg tablet Take 1 tablet by mouth once daily. carbamide peroxide (DEBROX) 6.5 % otic solution To be used as directed. 4-5 drops repeat every 1-2 hr if necessary. gabapentin (NEURONTIN) 300 mg capsule Take 3 capsules by mouth daily at lunch gabapentin (NEURONTIN) 600 mg tablet Take 3 tablets by mouth daily at bedtime for 180 days. acyclovir (ZOVIRAX) 400 mg tablet Take 1 tablet by mouth two times a day. rOPINIRole (REQUIP) 0.5 mg tablet TAKE 1 TABLET BY MOUTH TWICE A DAY (NOON AND BEDTIME) Cholecalciferol, Vitamin D3, (VITAMIN D-3) 50 mcg (2,000 unit) cap Take 1 capsule by mouth once daily. insulin glargine U-300 conc (TOUJEO SOLOSTAR U-300 INSULIN) 300 unit/mL (1.5 mL) Inject 18 Units subcutaneously every morning. magnesium oxide (MAG-OX) 400 mg (241.3 mg magnesium) tablet Take 2 tablets by mouth once daily. ascorbic acid, vitamin C, (MINE (more content not included)... Normal [facility] Cobalamin (Vitamin B12) [Mas s/Vol]on 09-11-2024 Interpretation and review of laboratory results Normal [facility] Comprehensive metabolic 2000 panelon 09-11-2024 Albumin [Mass/Vol] 4.3 g/dL 3.9 - 4.9 g/dL [facility] ALP [Catalytic activity/Vol] 79 U/L 34 - 123 U/L [facility] ALT [Catalytic activity/Vol] 53 U/L High 7 - 38 U/L [facility] Anion gap [Moles/Vol] 10 mmol/L 8 - 15 mmol/L [facility] AST [Catalytic activity/Vol] 40 U/L High 13 - 35 U/L [facility] Bilirubin [Mass/Vol] 0.6 mg/dL 0.2 - 1 .3 mg/dL [facility] Calcium [Mass/Vol] 10.1 mg/dL 8.5 - 10. 2 mg/dL [facility] Chloride [Moles/Vol] 101 mmol/L 98 - 10 7 mmol/L [facility] CO2 [Moles/Vol] 29 mmol/L 22 - 30 mmol/L [facility] Creatinine [Mass/Vol] 0.59 mg/dL 0.58 - 0.96 mg/dL [facility] GFR/1.73 sq M.predicted among non-blacks MDRD (S/P/Bld) [Vol rate/Area] 99 mL/min/{1.73_m2} - PINF [facility] Comment on above: Estimated Glomerular Filtration Rate (eGFR) is calculated using the 2020 CKD-EPI creatinine equation. This equation utilizes serum creatinine, sex, and age as parameters. The creatinine assay has traceable calibration to isotope dilution-mass spectrometry. Refer to KDIGO guidelines for clinical interpretation. In patients with unstable renal function, e.g. those with acute kidney injury, the eGFR may not accurately reflect actual GFR. Glucose [Mass/Vol] 136 mg/dL High 74 - 99 mg/dL [facility] Comment on above: The [place] Diab[employer] [place] Association (ADA) provides guidance for cutoff values for fasting glucose and random glucose. The ADA defines fasting as no caloric intake for at least 8 hours. Fasting plasma glucose results between 100 to 125 mg/dL indicate increased risk for diabetes (prediabetes). Fasting plasma glucose results greater than or equal to 126 mg/dL meet the criteria for diagnosis of diabetes. In the absence of unequivocal hyperglycemia, results should be confirmed by repeat testing. In a patient with classic symptoms of hyperglycemia or hyperglycemic crisis, random plasma glucose results greater than or equal to 200 mg/dL meet the criteria for diagnosis of diabetes. Reference: Standards of Medical Care in Diabetes 2016, [place] [employer]. Diabetes Care. 2016.39(Suppl 1). Interpretation and review of laboratory results Abnormal [facility] Potassium [Moles/Vol] 4.9 mmol/L 3.7 - 5.1 mmol/L [facility] Protein [Mass/Vol] 6.9 g/dL 6.3 - 8.0 g/dL [facility] Sodium [Moles/Vol] 140 mmol/L 136 - 144 mmol/L [facility] Urea nitrogen [Mass/Vol] 9 mg/dL 7 - 21 mg/dL [facility] Albumin [Mass/Vol] 4.3 g/dL Normal 3.9-4.9 [facility] Comment on above: Order Comment: Speci men Type: BLOOD SPECIMENOrdering Facility: [facility] Address: [address] [place] [address] Performed By: #### 2 432-8, , 2131-10 ####[facility] LABCLIA [id number] [place] [address] [place] ALP [Catalytic activity/Vol] 79 U/L Normal 34-123 [facility] Comment on above: Order Comment: Speci men Type: BLOOD SPECIMENOrdering Facility: [facility] Address: [address] [place] [address] Performed By: #### 2 432-8, , 2131-10 ####[facility] LABCLIA [id number] [place] [address] [place] ALT [Catalytic activity/Vol] 53 U/L High 7-38 [facility] Comment on above: Order Comment: Speci men Type: BLOOD SPECIMENOrdering Facility: [facility] Address: [address] [place] [address] Performed By: #### 2 4323-8, , 2131-10 ####[facility] LABCLIA [id number] [place] [id number] [place] Anion gap [Moles/Vol] 10 mmol/L Normal 8-15 [facility] Comment on above: Order Comment: Speci men Type: BLOOD SPECIMENOrdering Facility: [facility] Address: [address] [place] [address] Performed By: #### 2 4323-8, , 2131-10 ####[facility] LABCLIA [id number] [address] [address] [place] AST [Catalytic activity/Vol] 40 U/L High 13-35 [facility] Comment on above: Order Comment: Speci men Type: BLOOD SPECIMENOrdering Facility: [facility] Address: [address] [place] [address] Performed By: #### 2 4323-8, , 2131-10 ####[facility] LABCLIA [id number] [address] [address] [place] Bilirubin [Mass/Vol] 0.6 mg/dL Normal 0.2-1.3 [facility] Comment on above: Order Comment: Speci men Type: BLOOD SPECIMENOrdering Facility: [facility] Address: [address] [place] [address] Performed By: #### 2 4323-8, , 2131-10 ####[facility] LABCLIA [id number] [place] [address] [place] Calcium [Mass/Vol] 10.1 mg/dL Normal 8.5-10.2 [facility] Comment on above: Order Comment: Speci men Type: BLOOD SPECIMENOrdering Facility: [facility] Address: [address] [place] [address] Performed By: #### 2 4323-8, , 2131-10 ####[facility] LABCLIA [id number] [address] [address] [place] Chloride [Moles/Vol] 101 mmol/L Normal 98-107 [facility] Comment on above: Order Comment: Speci men Type: BLOOD SPECIMENOrdering Facility: [facility] Address: [address] [place], [place] [address] Performed By: #### 2 4323-8, , 2131-10 ####[facility] LABCLIA [id number] [place] [address] [place] CO2 [Moles/Vol] 29 mmol/L Normal 22-30 [facility] Comment on above: Order Comment: Speci men Type: BLOOD SPECIMENOrdering Facility: [facility] Address: [address] [place] [address] Performed By: #### 2 4323-8, , 2131-10 ####[facility] LABCLIA [id number] [place] [address] [place] Creatinine [Mass/Vol] 0.59 mg/dL Normal 0.58-0.96 [facility] Comment on above: Order Comment: Speci men Type: BLOOD SPECIMENOrdering Facility: [facility] Address: [address] [place] [address] Performed By: #### 2 432-8, , 2131-10 ####[facility] LABIA [id number] [place] [address] [place] eGFRcr SerPlBld CKD-EPI 2020 99 mL/min/1.73m??? Normal >=60 [facility] Comment on above: Order Comment: Speci men Type: BLOOD SPECIMENOrdering Facility: [facility] Address: [address] [place] [address] Result Comment: Mere mated Glomerular Filtration Rate (eGFR) is calculated using the 2020 CKD-EPI creatinine equation. This equation utilizes serum creatinine, sex, and age as parameters. The creatinine assay has traceable calibration to isotope dilution-mass spectrometry. Refer to KDIGO guidelines for clinical interpretation. In patients with unstable renal function, e.g. those with acute kidney injury, the eGFR may not accurately reflect actual GFR. Performed By: #### 2 4323-8, , 2131-10 ####[facility] LABCLIA [id number] [place] [id number] [place] Glucose [Mass/Vol] 136 mg/dL High 74-99 [facility] Comment on above: Order Comment: Speci men Type: BLOOD SPECIMENOrdering Facility: [facility] Address: [address] [place] [address] Result Comment: The [place] Diabetes Association (ADA) provides guidance for cutoff values for fasting glucose and random glucose. The ADA defines fasting as no caloric intake for at least 8 hours. Fasting plasma glucose results between 100 to 125 mg/dL indicate increased risk for diabetes (prediabetes). Fasting plasma glucose results greater than or equal to 126 mg/dL meet the criteria for diagnosis of diabetes. In the absence of unequivocal hyperglycemia, results should be confirmed by repeat testing. In a patient with classic symptoms of hyperglycemia or hyperglycemic crisis, random plasma glucose results greater than or equal to 200 mg/dL meet the criteria for diagnosis of diabetes. Reference: Standards of Medical Care in Diabetes 2016, [place] [employer]. Diabetes Care. 2016.39(Suppl 1). Performed By: #### 2 4323-8, , 2131-10 ####[facility] LABCLIA [id number] [place] [address] [place] Potassium [Moles/Vol] 4.9 mmol/L Normal 3.7-5.1 [facility] Comment on above: Order Comment: Chivo finnegan Type: BLOOD SPECIMENOrdering Facility: [facility] Address: [address] [place] [address] Performed By: #### 2 4323-8, , 2131-10 ####[facility] LABCLIA [id number] [place] [id number] [place] Protein [Mass/Vol] 6.9 g/dL Normal 6.3-8.0 [facility] Comment on above: Order Comment: Chivo finnegan Type: BLOOD SPECIMENOrdering Facility: [facility] Address: [address] [place] [address] Performed By: #### 2 43204-22, , 2131-10 ####[facility] LABCLIA [id number] [address] [address] [place] Sodium [Moles/Vol] 140 mmol/L Normal 136-144 [facility] Comment on above: Order Comment: Zbigniewi men Type: BLOOD SPECIMENOrdering Facility: [facility] Address: [address] [place] [address] Performed By: #### 2 4323-8, , 2131-10 ####[facility] LABCLIA [id number] [address] [address] [place] Urea nitrogen [Mass/Vol] 9 mg/dL Normal 7-21 [facility] Comment on above: Order Comment: Zbigniewi men Type: BLOOD SPECIMENOrdering Facility: [facility] Address: [address] [place] [address] Performed By: #### 2 4323-8, , 2131-10 ####[facility] LABCLIA [id number] [address] [address] [place] HbA1c (Bld)on 09-11-2024 Average glucose Estimated from glycated hemoglobin (Bld) [Mass/Vol] 166 mg/dL Normal [facility] Comment on above: Order Comment: Chivo men Type: BLOOD SPECIMENOrdering Facility: [facility] Address: [address] [place] [address] Result Comment: eAG: (Estimated average glucose) is a calculated value from HgbA1c and is metals sales representative of the average blood glucose level in the last 2-3 month period. Performed By: #### 5 5454-3 ####[facility] LABCLIA [id number] [address] [address] [place] HbA1c (Bld) [Mass fraction] 7.4 % High 4.3-5.6 [facility] Comment on above: Order Comment: Chivo men Type: BLOOD SPECIMENOrdering Facility: [facility] Address: [address] [place] [address] Result Comment: Shivam ican Diabetes Association guidelines indicate that patients with HgbA1c in the range 5.7-6.4% are at increased risk for development of diabetes, and intervention by lifestyle modification may be beneficial. HgbA1c greater or equal to 6.5% is considered diagnostic of diabetes. Performed By: #### 5 5454-3 ####[facility] LABCLIA [id number] [place] [id number] [place] MAGNESIUMon 09-11-2024 Magnesium [Mass/Vol] 2.2 mg/dL 1.7 - 2 .3 mg/dL [facility] Magnesium SerPl-ncon 09-11 Magnesium [Mass/Vol] 2.2 mg/dL Normal 1.7-2.3 [facility] Comment on above: Order Comment: Chivo finnegan Type: BLOOD SPECIMENOrdering Facility: [facility] Address: [address] [place] [address] Performed By: #### 2 4323-8, , 2131-10 ####[facility] LABCLIA [id number] [address] Magnesium [Mass/Vol]on 09-11 Interpretation and review of laboratory results Normal [facility] No Panel Informationon 09-11 [facility] VITAMIN B12on 09-11-2024 Cobalamin (Vitamin B12) [Mass/Vol] 716 pg/mL 232 - 1245 pg/mL [facility] Vit B12 SerPl-ncon 025 Cobalamin (Vitamin B12) [Mass/Vol] 716 pg/mL Normal 232-1245 [facility] Comment on above: Order Comment: Chivo finnegan Type: BLOOD SPECIMENOrdering Facility: [facility] Address: [address] [place] [id number] Performed By: #### 2 4323-8, , 2131-10 ####[facility] LABIA [id number] [place] [id number] [facility] [place] 07-12-2024 CNPN Telephone (INTMWS) PELONMELANIE M ([id number]) 1955 F Date Time Provider Department 07/12/24 MODESTA DALEYWS During your visit today, we recorded the following information about you: Amor, BLADE Ferrer 07/12/2024 10:41 AM Signed Received fax from [facility] for seat lift chair for patient CMS [id number] Daley desk for completion and signature To fax: [phone] Carissa Chinchilla LPN July 12, 2024 10:39 AM Modesta Daley MD 07/12/2024 2:50 PM Signed Completed. RegardsModesta MD, Mary, LPN 07/12/2024 3:35 PM Signed Paperwork faxed Carissa Chinchilla LPN July 12, 2024 3:35 PM Allergies As of Date: 07/12/2024 Noted Allergy Reaction SEROQUEL (QUETIAPINE FUMARATE) 11/15/2012 1 - Mental Status Change VICTOZA (LIRAGLUTIDE) 09/21/2013 8 - GI Upset Date Reviewed: 05/15/2024 Reviewed by: Kailey Diamond MA - Fully Assessed Reason for Visit: Orders [681] Cmt: Lift chair Prescriptions as of 07/12/2024 - sertraline (ZOLOFT) 100 mg tablet Take 1 tablet by mouth once daily. - zolpidem (AMBIEN) 5 mg tablet Take 1 tablet by mouth at bedtime as needed for sedation for up to 90 days. TAKE 1 TABLET BY MOUTH AT BEDTIME NEEDED FOR SEDATION - carbamide peroxide (DEBROX) 6.5 % otic solution To be used as directed. 4-5 drops repeat every 1-2 hr if necessary. - gabapentin (NEURONTIN) 300 mg capsule Take 3 capsules by mouth daily at lunch - gabapentin (NEURONTIN) 600 mg tablet Take 3 tablets by mouth daily at bedtime for 180 days. - semaglutide (OZEMPIC) 2 mg/dose (8 mg/3 mL) pen injector Inject 2 mg subcutaneously one time a week. - acyclovir (ZOVIRAX) 400 mg tablet Take 1 tablet by mouth two times a day. - rOPINIRole (REQUIP) 0.5 mg tablet TAKE 1 TABLET BY MOUTH TWICE A DAY (NOON AND BEDTIME) - Cholecalciferol, Vitamin D3, (VITAMIN D-3) 50 mcg (2,000 unit) cap Take 1 capsule by mouth once daily. - insulin glargine U-300 conc (TOUJEO SOLOSTAR U-300 INSULIN) 300 unit/mL (1.5 mL) Inject 18 Units subcutaneously every morning. - magnesium oxide (MAG-OX) 400 mg (241.3 mg magnesium) tablet Take 2 tablets by mouth once daily. - ascorbic acid, vitamin C, (VITAMIN C) 500 mg tablet Take 1 tablet by mouth once daily. - atorvastatin (LIPITOR) 20 mg tablet Take 1 tablet by mouth once daily. - fexofenadine (SEFERINO) 180 mg tablet Take 1 tablet by mouth once daily. - amantadine HCl (SYMMETREL) 100 mg capsule Take 100 mg by mouth two times a day. - INGREZZA 80 mg capsule Take 1 capsule by mouth once daily. - diclofenac (VOLTAREN) 1 % topical gel Apply 2 g to affected area two times a day. - flash glucose sensor (FREESTYLE IZABELLA 2 SENSOR) kit Use to monitor blood sugars 4 times daily - polyethylene glycol 3350 17 gram/dose powder Take 17 g by mouth two times a day as needed for constipation. Drink a mix of 1 scoop in 8oz of water/beverage once daily as needed for constipation. - flash glucose scanning reader (FREESTYLE IZABELLA 2 READER) 1 Each four times daily. checking blood sugars DX E11.9 Insulin Yes - pen needle, diabetic (NOVOFINE PLUS) 32 gauge x 1/6 Use to inject insulin once daily - OXYGEN, HOME THERAPY, 2 L/min by Mask route daily at bedtime. CPAP 2L at night - cloNIDine HCl (CATAPRES) 0.1 mg tablet Take 1 tablet by mouth once daily. - omeprazole (PRILOSEC) 20 mg capsule Take 20 mg by mouth once daily. - blood sugar diagnostic (BLOOD GLUCOSE TEST) test strip Test Four times a day. Insulin Dep? Yes E11.9 DM 2 - calcium carbonate 600 mg-cholecalciferol 200 units (CALCARB 600 WITH VITAMIN D) 600 mg(1,500mg) -200 unit tab Take 1 tablet by mouth twice daily. - wheat dextrin (BENEFIBER SUGAR FREE, DEXTRIN,) 3 gram/4 gram powd 1/2 tablespoon per day x2 weeks. Then increase by 1/2 tablespoon every 2 weeks until you are taking 3 tablespoons per day in divided doses. - docusate sodium (COLACE) 100 mg capsule Take 1 capsule by mouth twice daily as needed for Constipation. - COMPOUNDED PRESCRIPTION Oxygen supplies dx: R79.81 R06.02 - blood sugar diagnostic (ONETOUCH ULTRA TEST) test strip Test blood sugar(s) 4 times daily. Dx: Type 2 DM - Uncontrolled E11.65 Insulin: Yes Problem List As Of Date 07/12/2024 Noted Resolved Diabetes mellitus type 2 (HCC) [E11.9] 11/15/2012 PTSD (post-traumatic stress disorder) [F43.10] 11/15/2012 Schizoaffective disorder [F25.9] 11/15/2012 06/23/2016 Parkinson disease (HCC) [G20.A1] 11/15/2012 12/03/2017 RLS (restless legs syndrome) [G25.81] 11/22/2012 Wheezing [R06.2] 11/29/2012 08/12/2016 Movement disorder [G25.9] 12/28/2012 08/12/2016 Low oxygen saturation [R79.81] 12/28/2012 Schizophrenia (HCC) [F20.9] 01/04/2013 02/06/2014 Tardive dyskinesia [G24.01] 01/04/2013 Hyperlipidemia with target LDL less than 70 [E7*01/04/2013 Nausea [R11.0] 02/09/2013 08/12/2016 SOB (shortness of breath) on exertion [R0 (more content not included)... Normal [facility] CNOVon 05-15-2024 CNOV Office Visit (INTMWS ) MELANIE BIRD ([id number]) 1955 F Date Time Provider Department 05/15/24 1:00 PM INNA SMALL During your visit today, we recorded the following information about you: Pulse Respiration Blood pressure Weight 74/minute 16/minute 108/68 82.6 kg Inna Small 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 05/15/2024 1:10 PM Signed CC: Patient presents with: Recheck: 2 week follow up HPI Melanie Bird is a 69 year old female who presents today for follow up on hearing concerns. Was seen by PCP 2 weeks ago with noted decreased hearing to left ear with cerumen impaction noted. Debrox ear drops prescribed and then patient returned today to be evaluated for any improvement. Patient unsure how long she has not had hearing in her left ear but noticed it about a month ago when she was laying on her right side. Did not notice an wax removal with using the ear drops. Denies injuries, ear drainage, ear pain, fever, sinus congestion, cough, wheezing, dizziness, syncope, or sore throat. REVIEW OF SYSTEMS See HPI PAST MEDICAL HISTORY Diagnosis Date Depression Diabetes mellitus type 2, uncontrolled High cholesterol History of colon polyps History of gallstones IBS (irritable bowel syndrome) Obesity 04/25/2013 BMI 48.43 ARIANA (obstructive sleep apnea) 03/06/2013 Parkinson disease (HCC) PAST SURGICAL HISTORY Procedure Laterality Date ANAL SPHINCTEROPLASTY SPHINCTEROPLASTY ANAL W/ IMPLANT ARTIFICIAL SPHINCTER ADULT BARIATRIC SURGERY HX 05/28/2021 CATARACT EXTRACTION HX Bilateral 08/2012 COLONOSCOPY GEN ANES 04/2019 INCISE FINGER TENDON SHEATH 12/20/2012 Left 3rd trigger finger release MANIPULATION KNEE JOINT UNDER GENERAL ANESTHESIA Left 01/23/2022 Left knee manipulation under anesthesia PAST SURGICAL HISTORY OF 06/2012 Interstim PAST SURGICAL HISTORY OF Right trigger thumb REMOVAL GALLBLADDER 2000 REMOVAL OF OVARY/TUBE(S) Bilateral 07/31/2022 Laparoscopic BSO and Myomectomy at [facility]- Dr. Delacruz TOTAL KNEE REPLACEMENT Left 10/29/2021 Left robotic total knee replacement ALLERGIES Seroquel [Quetiapine Fumarate] and Victoza [Liraglutide] MEDICATIONS carbamide peroxide (DEBROX) 6.5 % otic solution To be used as directed. 4-5 drops repeat every 1-2 hr if necessary. gabapentin (NEURONTIN) 300 mg capsule Take 3 capsules by mouth daily at lunch gabapentin (NEURONTIN) 600 mg tablet Take 3 tablets by mouth daily at bedtime for 180 days. semaglutide (OZEMPIC) 2 mg/dose (8 mg/3 mL) pen injector Inject 2 mg subcutaneously one time a week. acyclovir (ZOVIRAX) 400 mg tablet Take 1 tablet by mouth two times a day. zolpidem (AMBIEN) 5 mg tablet Take 1 tablet by mouth at bedtime as needed for sedation for up to 90 days. TAKE 1 TABLET BY MOUTH AT BEDTIME NEEDED FOR SEDATION rOPINIRole (REQUIP) 0.5 mg tablet TAKE 1 TABLET BY MOUTH TWICE A DAY (NOON AND BEDTIME) Cholecalciferol, Vitamin D3, (VITAMIN D-3) 50 mcg (2,000 unit) cap Take 1 capsule by mouth once daily. insulin glargine U-300 conc (TOUJEO SOLOSTAR U-300 INSULIN) 300 unit/mL (1.5 mL) Inject 18 Units subcutaneously every morning. sertraline (ZOLOFT) 100 mg tablet Take 1 tablet by mouth once daily. magnesium oxide (MAG-OX) 400 mg (241.3 mg magnesium) tablet Take 2 tablets by mouth once daily. ascorbic acid, vitamin C, (VITAMIN C) 500 mg tablet Take 1 tablet by mouth once daily. atorvastatin (LIPITOR) 20 mg tablet Take 1 tablet by mouth once daily. fexofenadine (SEFERINO) 180 mg tablet Take 1 tablet by mouth once daily. amantadine HCl (SYMMETREL) 100 mg capsule Take 100 mg by mouth two times a day. INGREZZA 80 mg capsule Take 1 capsule by mouth once daily. diclofenac (VOLTAREN) 1 % topical gel Apply 2 g to affected area two times a day. (Patient not taking: Reported on 10/25/2023) flash glucose sensor (FREESTYLE IZABELLA 2 SENSOR) kit Use to monitor blood sugars 4 times daily polyethylene glycol 3350 17 gram/dose powder Take 17 g by mouth two times a day as needed for constipation. Drink a mix of 1 scoop in 8oz of water/beverage once daily as needed for constipation. flash glucose scanning reader (FREESTYLE IZABELLA 2 READER) 1 Each four times daily. checking blood sugars DX E11.9 Insulin Yes pen needle, diabetic (NOVOFINE PLUS) 32 gauge x 1/6 Use to inject insulin once daily OXYGEN, HOME THERAPY, 2 L/min by Mask route daily at bedtime. CPAP 2L at night cloNIDine HCl (CATAPRES) 0.1 mg tablet Take 1 tablet by mouth once daily. omeprazole (PRILOSEC) 20 mg capsule Take 20 mg by mouth once daily. blood sugar diagnostic (BLOOD GLUCOSE TEST) test strip Test Four times a day. Insulin Dep? Yes E11.9 DM 2 calcium carbonate 600 mg-cholecalciferol 200 units (CALCARB 600 WITH VITAMIN D) 600 mg(1,500mg) -200 unit tab Take 1 tablet by mouth twice daily. wheat dextrin (BENEFIBER SUGAR FREE, DEXTRIN,) 3 gram/4 gram powd 1/2 tablespoon per da (more content not included)... Normal [facility] CNOVon 05-01-2024 CNOV Office Visit (INTMWS ) PELONMELANIE M ([id number]) 1955 F Date Time Provider Department 05/01/24 3:20 PM MODESTA DALEY INTSoniyaWS During your visit today, we recorded the following information about you: Pulse Respiration Blood pressure Weight 80/minute 16/minute 117/78 82.6 kg Modesta Daley MD 05/01/2024 4:06 PM Signed Reason for Visit Melanie is a 69-year-old female with a history of DM, major depression, suspected bipolar disorder, TD, ARIANA, hyperlipidemia, BPPV, and Parkinson's disease, presenting for follow-up. HPI Hearing Loss: - Unable to hear out of the left ear; suspects cerumen impaction. - Noted difficulty hearing the clock when lying on the right side. Lift Chair Prescription: - Requests a prescription for a lift chair to assist with standing. - Unable to rise from chairs without arms. Tardive Dyskinesia: - Developed TD after being prescribed antipsychotic medications. - Currently taking Ingrezza and another medication starting with A to manage symptoms. - Neurology is following the condition; informed that no further interventions are available. ARIANA: - No longer using CPAP; requires supplemental oxygen at night due to desaturation. - Recent sleep study indicated nocturnal hypoxemia. Parkinson's Disease: - Diagnosed with Parkinson's disease; experiencing resting tremor. - Uses lennon for balance while ambulating. Diabetes Mellitus: - Well-controlled blood glucose levels; recent A1c was 7%. - Administers own insulin. Activities of Daily Living: - Receives assistance from an aide twice a week for 3 hours through [employer] services. - Aide assists with transmission builder, including dishes, bathroom cleaning, litter box maintenance, vacuuming, dusting, and laundry. - Able to manage medications independently. - Prepares meals using a microwave; receives one meal per day. Social History Tobacco Use Smoking status: Former Current packs/day: 0.00 Average packs/day: 0.1 packs/day for 3.0 years (0.3 ttl pk-yrs) Types: Cigarettes Start date: 04/25/1985 Quit date: 04/25/1988 Years since quittin.0 Smokeless tobacco: Never Tobacco comments: No smoking in childhood home. Roomate of last 10 years smoked while living with patient. Vaping Use Vaping status: Never Used Substance Use Topics Alcohol use: Not Currently Drug use: Never Past medical history, appointments, medications, allergies reviewed. Pertinent Lab/Diagnostic Studies are reviewed and discussed today Current Outpatient Medications: gabapentin (NEURONTIN) 300 mg capsule gabapentin (NEURONTIN) 600 mg tablet semaglutide (OZEMPIC) 2 mg/dose (8 mg/3 mL) pen injector acyclovir (ZOVIRAX) 400 mg tablet zolpidem (AMBIEN) 5 mg tablet rOPINIRole (REQUIP) 0.5 mg tablet Cholecalciferol, Vitamin D3, (VITAMIN D-3) 50 mcg (2,000 unit) cap insulin glargine U-300 conc (TOUJEO SOLOSTAR U-300 INSULIN) 300 unit/mL (1.5 mL) sertraline (ZOLOFT) 100 mg tablet magnesium oxide (MAG-OX) 400 mg (241.3 mg magnesium) tablet ascorbic acid, vitamin C, (VITAMIN C) 500 mg tablet atorvastatin (LIPITOR) 20 mg tablet fexofenadine (SEFERINO) 180 mg tablet amantadine HCl (SYMMETREL) 100 mg capsule INGREZZA 80 mg capsule flash glucose sensor (FREESTYLE IZABELLA 2 SENSOR) kit polyethylene glycol 3350 17 gram/dose powder flash glucose scanning reader (FREESTYLE IZABELLA 2 READER) pen needle, diabetic (NOVOFINE PLUS) 32 gauge x 1/6 OXYGEN, HOME THERAPY, cloNIDine HCl (CATAPRES) 0.1 mg tablet omeprazole (PRILOSEC) 20 mg capsule blood sugar diagnostic (BLOOD GLUCOSE TEST) test strip calcium carbonate 600 mg-cholecalciferol 200 units (CALCARB 600 WITH VITAMIN D) 600 mg(1,500mg) -200 unit tab wheat dextrin (BENEFIBER SUGAR FREE, DEXTRIN,) 3 gram/4 gram powd docusate sodium (COLACE) 100 mg capsule COMPOUNDED PRESCRIPTION blood sugar diagnostic (ONETOUCH ULTRA TEST) test strip carbamide peroxide (DEBROX) 6.5 % otic solution diclofenac (VOLTAREN) 1 % topical gel Health Maintenance Depression Screening RSV Vaccine(1 - Risk 60-74 years 1-dose series) Diabetic Foot Exam Advance Directive Discussion@ Review Of Systems Constitutional: (+) weight loss Ears/Nose/Mouth/Throat: (+) hearing changes (left ear) Musculoskeletal: (+) difficulty with balance, (+) difficulty rising from chair Neurological: (+) tremors, (+) involuntary movements Physical Exam BP 117/78 Pulse 80 Resp 16 Wt 82.6 kg (182 lb 3.2 oz) LMP 04/10/2012 (Approximate) SpO2 97% BMI 31.27 kg/m? GENERAL: NAD, alert and oriented. SKIN: Unremarkable, no rash or skin lesions. HEAD: Normocephalic. EYES: PERRLA, EOMI, conjunctiva clear. EARS: External ears normal. Left ear canal with minimal cerumen, partial view of TM. NOSE/SINUSES: Nares normal. Septum midline. OROPHARYNX: Lips, mucosa, and tongue normal, good dentition. No oral lesions no (more content not included)... Normal [facility] BD DXA - AXIAL SKELETONon BD DXA - AXIAL SKELETON * * *Final Report* * * DATE OF EXAM: Apr 24 2024 10:15AM WRB 0804 - BD DXA - AXIAL SKELETON / PROCEDURE REASON: Asymptomatic menopause * * * * Physician Interpretation * * * * EXAMINATION: DXA BONE DENSITOMETRY BD DXA - AXIAL SKELETON, BD DXA TRABECLR BONE SCORE (TBS) PATIENT DEMOGRAPHICS: Age: 69 years, Gender: Female SCANNER INFORMATION: DXA Model: [employer] C [id number] Date Scanned: 04/24/2024 10:15 AM CLINICAL HISTORY: DIAGNOSTIC Asymptomatic menopause . RISK FACTORS FOR OSTEOPOROSIS AND ASSOCIATED FRACTURES REPORTED BY THIS PATIENT: Please refer to Bone Health Questionnaire in the EMR CURRENT THERAPY: Please refer to Bone Health Questionnaire in the EMR TECHNICAL LIMITATIONS: None RESULTS: Lumbar spine (L1, L2, L3, L4): 1.146 g/cm2, T-score 1.2, Z-score 3.0 Right Femoral Neck: 0.604 g/cm2, T-score -2.2, Z-score -0.6 Right Total Hip: 0.887 g/cm2, T-score -0.5, Z-score 0.9 Left Femoral Neck: 0.602 g/cm2, T-score -2.2, Z-score -0.6 Left Total Hip: 0.841 g/cm2, T-score -0.8, Z-score 0.5 No comparison data - the patient has not had a previous bone density in the [facility] or the previous bone density was performed on a different DXA machine (new, updated model or different location) within the [facility]. VERTEBRAL FRACTURE ASSESSMENT Not performed. TRABECULAR BONE ASSESSMENT TBS score: 1.313 Bone micro-architecture: Normal (> 1.310) IMPRESSION: THE LOWEST T-SCORE IS -2.2 IN THE RIGHT AND LEFT HIPS 1) DIAGNOSIS (based on BMD alone): OSTEOPENIA Caution: Medical conditions other than osteoporosis may cause low bone density, such as osteomalacia or renal osteodystrophy. Clinical correlation is necessary. 2) FRACTURE RISK (Based on TBS adjusted FRAX): 10-year absolute fracture risk: - major osteoporotic fracture = 17 % - hip fracture = 2.9 % - A diagnosis of Osteoporosis, a 10 year probability of hip fracture greater than or equal to 3% or a 10 year probability of any major osteoporosis-related fracture greater than or equal to 20% should be considered for treatment. - DXA scanner generated FRAX calculations may slightly differ from online FRAX calculations due to differences in software versions. - All recommendations and calculations are to be considered as guidelines and should not replace sound clinical judgement - Caution: Fracture risk may be increased independent of BMD in patients with corticosteroid use, age greater than 65 years, or a history of prior fragility fracture. RECOMMENDATIONS: Follow-up in 2 years or as clinically indicated. Patients that are taking corticosteroids, are transplant recipients or have hyperparathyroidism should have annual follow-up. Follow-up scans should always be done on the same machine for accurate comparison. FOR MORE INFORMATION ABOUT DIAGNOSIS AND TREATMENT: [facility] for Osteoporosis and Metabolic Bone Disease:? www.ccf.org/arthritis/osteo National Osteoporosis Foundation:? www.nof.org International Society of Clinical Densitometry www.iscd.org Machine Ceramic Coater: LAURENT Transcribe Date/Time: Apr 24 2024 10:28A Dictated by : SUZE PETTY MD This examination was interpreted and the report reviewed and electronically signed by: SUZE PETTY MD on Apr 24 2024 10:30AM EST [id number] -2.2 Normal [facility] BD DXA TRABECLR BONE SCORE ( TBS)on 04-24-2024 BD DXA TRABECLR BONE SCORE (TBS) * * *Final Report* * * DATE OF EXAM: Apr 24 2024 10:15AM [facility] 0801 - BD DXA TRABECLR BONE SCORE (TBS) / PROCEDURE REASON: Asymptomatic menopause * * * * Physician Interpretation * * * * EXAMINATION: DXA BONE DENSITOMETRY BD DXA - AXIAL SKELETON, BD DXA TRABECLR BONE SCORE (TBS) PATIENT DEMOGRAPHICS: Age: 69 years, Gender: Female SCANNER INFORMATION: DXA Model: [employer] - [employer] C [id number] Date Scanned: 04/24/2024 10:15 AM CLINICAL HISTORY: DIAGNOSTIC Asymptomatic menopause . RISK FACTORS FOR OSTEOPOROSIS AND ASSOCIATED FRACTURES REPORTED BY THIS PATIENT: Please refer to Bone Health Questionnaire in the EMR CURRENT THERAPY: Please refer to Bone Health Questionnaire in the EMR TECHNICAL LIMITATIONS: None RESULTS: Lumbar spine (L1, L2, L3, L4): 1.146 g/cm2, T-score 1.2, Z-score 3.0 Right Femoral Neck: 0.604 g/cm2, T-score -2.2, Z-score -0.6 Right Total Hip: 0.887 g/cm2, T-score -0.5, Z-score 0.9 Left Femoral Neck: 0.602 g/cm2, T-score -2.2, Z-score -0.6 Left Total Hip: 0.841 g/cm2, T-score -0.8, Z-score 0.5 No comparison data - the patient has not had a previous bone density in the [facility] or the previous bone density was performed on a different DXA machine (new, updated model or different location) within the [facility]. VERTEBRAL FRACTURE ASSESSMENT Not performed. TRABECULAR BONE ASSESSMENT TBS score: 1.313 Bone micro-architecture: Normal (> 1.310) IMPRESSION: THE LOWEST T-SCORE IS -2.2 IN THE RIGHT AND LEFT HIPS 1) DIAGNOSIS (based on BMD alone): OSTEOPENIA Caution: Medical conditions other than osteoporosis may cause low bone density, such as osteomalacia or renal osteodystrophy. Clinical correlation is necessary. 2) FRACTURE RISK (Based on TBS adjusted FRAX): 10-year absolute fracture risk: - major osteoporotic fracture = 17 % - hip fracture = 2.9 % - A diagnosis of Osteoporosis, a 10 year probability of hip fracture greater than or equal to 3% or a 10 year probability of any major osteoporosis-related fracture greater than or equal to 20% should be considered for treatment. - DXA scanner generated FRAX calculations may slightly differ from online FRAX calculations due to differences in software versions. - All recommendations and calculations are to be considered as guidelines and should not replace sound clinical judgement - Caution: Fracture risk may be increased independent of BMD in patients with corticosteroid use, age greater than 65 years, or a history of prior fragility fracture. RECOMMENDATIONS: Follow-up in 2 years or as clinically indicated. Patients that are taking corticosteroids, are transplant recipients or have hyperparathyroidism should have annual follow-up. Follow-up scans should always be done on the same machine for accurate comparison. FOR MORE INFORMATION ABOUT DIAGNOSIS AND TREATMENT: [facility] for Osteoporosis and Metabolic Bone Disease:? www.ccf.org/arthritis/osteo National Osteoporosis Foundation:? www.nof.org International Society of Clinical Densitometry www.iscd.org Machine Ceramic Coater: LAURENT Transcribe Date/Time: Apr 24 2024 10:28A Dictated by : SUZE PETTY MD This examination was interpreted and the report reviewed and electronically signed by: SUZE PETTY MD on Apr 24 2024 10:30AM EST [id number] -2.2 Normal [facility] Comprehensive metabolic 2000 panelon 04-24-2024 Albumin [Mass/Vol] 4.2 g/dL Normal 3.9-4.9 [facility] Comment on above: Order Comment: Speci men Type: BLOOD SPECIMENOrdering Facility: [facility] Address: [address] [place] [address] Performed By: #### 2 4323-8 ####[facility] JASON MILLTOWNCLIA [id number] [facility] [place] [address] [place] ALP [Catalytic activity/Vol] 73 U/L Normal 34-123 [facility] Comment on above: Order Comment: Speci men Type: BLOOD SPECIMENOrdering Facility: [facility] Address: [address] [place] [address] Performed By: #### 2 4323-8 ####[facility]THWNCLIA [id number] [place] [address] [place] ALT [Catalytic activity/Vol] 36 U/L Normal 7-38 [facility] Comment on above: Order Comment: Speci men Type: BLOOD SPECIMENOrdering Facility: [facility] Address: [address] [place] [address] Performed By: #### 2 4323-8 ####[facility] FLORIDANCLIA [id number] [place] [address] [place] Anion gap [Moles/Vol] 11 mmol/L Normal 8-15 [facility] Comment on above: Order Comment: Speci men Type: BLOOD SPECIMENOrdering Facility: [facility] Address: [address] [place] [address] Performed By: #### 2 4323-8 ####[facility] MILLTOWNCLIA [id number] [place] [address] [place] AST [Catalytic activity/Vol] 22 U/L Normal 13-35 [facility] Comment on above: Order Comment: Speci men Type: BLOOD SPECIMENOrdering Facility: [facility] Address: [address] [place] [address] Performed By: #### 2 4323-8 ####[facility] MILLTOWNCLIA [id number] [place] [address] [place] Bilirubin [Mass/Vol] 0.5 mg/dL Normal 0.2-1.3 [facility] Comment on above: Order Comment: Speci men Type: BLOOD SPECIMENOrdering Facility: [facility] Address: [address] [place] [address] Performed By: #### 2 4323-8 ####[facility] MILLZECHARIAHWLOGANLIA [id number] [place] [address] [place] Calcium [Mass/Vol] 9.3 mg/dL Normal 8.5-10.2 [facility] Comment on above: Order Comment: Speci men Type: BLOOD SPECIMENOrdering Facility: [facility] Address: [address] [place] [address] Performed By: #### 2 4323-8 ####[facility] MILLZECHARIAHWNCLIA [id number] [place] [address] [place] Chloride [Moles/Vol] 102 mmol/L Normal 98-107 [facility] Comment on above: Order Comment: Speci men Type: BLOOD SPECIMENOrdering Facility: [facility] Address: [address] [place] [address] Performed By: #### 2 4323-8 ####[facility] MILLTOWNCLIA [id number] [place] [address] [place] CO2 [Moles/Vol] 27 mmol/L Normal 22-30 [facility] Comment on above: Order Comment: Speci men Type: BLOOD SPECIMENOrdering Facility: [facility] Address: [address] [place] [address] Performed By: #### 2 4323-8 ####[facility] [id number] [place] [address] [place] Creatinine [Mass/Vol] 0.56 mg/dL Low 0.58-0.96 [facility] Comment on above: Order Comment: Chivo finnegan Type: BLOOD SPECIMENOrdering Facility: [facility] Address: [address] [place] [address] Performed By: #### 2 4323-8 ####[facility] [id number] [place] [address] [place] Creatinine and Glomerular filtration rate.predicted panel (S/P/Bld) 100 mL/min/1.73m??? Normal >=60 [facility] Comment on above: Order Comment: Chivo finnegan Type: BLOOD SPECIMENOrdering Facility: [facility] Address: [address] [place] [address] Result Comment: Mere mated Glomerular Filtration Rate (eGFR) is calculated using the 2020 CKD-EPI creatinine equation. This equation utilizes serum creatinine, sex, and age as parameters. The creatinine assay has traceable calibration to isotope dilution-mass spectrometry. Refer to KDIGO guidelines for clinical interpretation. In patients with unstable renal function, e.g. those with acute kidney injury, the eGFR may not accurately reflect actual GFR. Performed By: #### 2 4323-8 ####[facility] [id number] [place] [address] [place] Glucose [Mass/Vol] 172 mg/dL High 74-99 [facility] Comment on above: Order Comment: Chivo finnegan Type: BLOOD SPECIMENOrdering Facility: [facility] Address: [address] [place] [address] Result Comment: The [place] Diabetes Association (ADA) provides guidance for cutoff values for fasting glucose and random glucose. The ADA defines fasting as no caloric intake for at least 8 hours. Fasting plasma glucose results between 100 to 125 mg/dL indicate increased risk for diabetes (prediabetes). Fasting plasma glucose results greater than or equal to 126 mg/dL meet the criteria for diagnosis of diabetes. In the absence of unequivocal hyperglycemia, results should be confirmed by repeat testing. In a patient with classic symptoms of hyperglycemia or hyperglycemic crisis, random plasma glucose results greater than or equal to 200 mg/dL meet the criteria for diagnosis of diabetes. Reference: Standards of Medical Care in Diabetes 2016, [place] Diabetes Association. Diabetes Care. 2016.39(Suppl 1). Performed By: #### 2 4323-8 ####[facility]ALTHL[facility] [id number] [place] [address] [place] Potassium [Moles/Vol] 4.4 mmol/L Normal 3.7-5.1 [facility] Comment on above: Order Comment: Speci men Type: BLOOD SPECIMENOrdering Facility: [facility] Address: [address] [place] [address] Performed By: #### 2 4323-8 ####[facility] [id number] [place] [address] [place] Protein [Mass/Vol] 6.3 g/dL Normal 6.3-8.0 [facility] Comment on above: Order Comment: Speci men Type: BLOOD SPECIMENOrdering Facility: [facility] Address: [address] [place] [address] Performed By: #### 2 4323-8 ####[facility] [id number] [place] [address] [place] Sodium [Moles/Vol] 140 mmol/L Normal 136-144 [facility] Comment on above: Order Comment: Speci men Type: BLOOD SPECIMENOrdering Facility: [facility] Address: [address] [place], [place] [address] Performed By: #### 2 4323-8 ####[facility] [id number] [place] [address] [place] Urea nitrogen [Mass/Vol] 8 mg/dL Normal 7-21 [facility] Comment on above: Order Comment: Speci men Type: BLOOD SPECIMENOrdering Facility: [facility] Address: [facility] [place] [id number] Performed By: #### 2 4323-8 ####[facility] JASON MENDOZA [id number] [place] [address] [place] DXA Femur [T-score] Bone orlando ricardo 04-24-2024 * * *Final Report* * * DATE OF EXAM: Apr 24 2024 10:15AM WRB 0801 - BD DXA TRABECLR BONE SCORE (TBS) / PROCEDURE REASON: Asymptomatic menopause * * * * Physician Interpretation * * * * EXAMINATION: DXA BONE DENSITOMETRY BD DXA - AXIAL SKELETON, BD DXA TRABECLR BONE SCORE (TBS) PATIENT DEMOGRAPHICS: Age: 69 years, Gender: Female SCANNER INFORMATION: DXA Model: [employer] C [id number] Date Scanned: 04/24/2024 10:15 AM CLINICAL HISTORY: DIAGNOSTIC Asymptomatic menopause . RISK FACTORS FOR OSTEOPOROSIS AND ASSOCIATED FRACTURES REPORTED BY THIS PATIENT: Please refer to Bone Health Questionnaire in the EMR CURRENT THERAPY: Please refer to Bone Health Questionnaire in the EMR TECHNICAL LIMITATIONS: None RESULTS: Lumbar spine (L1, L2, L3, L4): 1.146 g/cm2, T-score 1.2, Z-score 3.0 Right Femoral Neck: 0.604 g/cm2, T-score -2.2, Z-score -0.6 Right Total Hip: 0.887 g/cm2, T-score -0.5, Z-score 0.9 Left Femoral Neck: 0.602 g/cm2, T-score -2.2, Z-score -0.6 Left Total Hip: 0.841 g/cm2, T-score -0.8, Z-score 0.5 No comparison data - the patient has not had a previous bone density in the [facility] or the previous bone density was performed on a different DXA machine (new, updated model or different location) within the [facility]. VERTEBRAL FRACTURE ASSESSMENT Not performed. TRABECULAR BONE ASSESSMENT TBS score: 1.313 Bone micro-architecture: Normal (> 1.310) DIVISION OF RADIOLOGY Provider, Raeann Chu - 04/24/2024 * * *Final Report* * * DATE OF EXAM: Apr 24 2024 10:15AM [facility] 0801 - BD DXA TRABECLR BONE SCORE (TBS) / PROCEDURE REASON: Asymptomatic menopause * * * * Physician Interpretation * * * * EXAMINATION: DXA BONE DENSITOMETRY BD DXA - AXIAL SKELETON, BD DXA TRABECLR BONE SCORE (TBS) PATIENT DEMOGRAPHICS: Age: 69 years, Gender: Female SCANNER INFORMATION: DXA Model: [employer] - [employer] C [id number] Date Scanned: 04/24/2024 10:15 AM CLINICAL HISTORY: DIAGNOSTIC Asymptomatic menopause . RISK FACTORS FOR OSTEOPOROSIS AND ASSOCIATED FRACTURES REPORTED BY THIS PATIENT: Please refer to Bone Health Questionnaire in the EMR CURRENT THERAPY: Please refer to Bone Health Questionnaire in the EMR TECHNICAL LIMITATIONS: None RESULTS: Lumbar spine (L1, L2, L3, L4): 1.146 g/cm2, T-score 1.2, Z-score 3.0 Right Femoral Neck: 0.604 g/cm2, T-score -2.2, Z-score -0.6 Right Total Hip: 0.887 g/cm2, T-score -0.5, Z-score 0.9 Left Femoral Neck: 0.602 g/cm2, T-score -2.2, Z-score -0.6 Left Total Hip: 0.841 g/cm2, T-score -0.8, Z-score 0.5 No comparison data - the patient has not had a previous bone density in the [facility] or the previous bone density was performed on a different DXA machine (new, updated model or different location) within the [facility]. VERTEBRAL FRACTURE ASSESSMENT Not performed. TRABECULAR BONE ASSESSMENT TBS score: 1.313 Bone micro-architecture: Normal (> 1.310) IMPRESSION IMPRESSION: THE LOWEST T-SCORE IS -2.2 IN THE RIGHT AND LEFT HIPS 1) DIAGNOSIS (based on BMD alone): OSTEOPENIA Caution: Medical conditions other than osteoporosis may cause low bone density, such as osteomalacia or renal osteodystrophy. Clinical correlation is necessary. 2) FRACTURE RISK (Based on TBS adjusted FRAX): 10-year absolute fracture risk: - major osteoporotic fracture = 17 % - hip fracture = 2.9 % - A diagnosis of Osteoporosis, a 10 year probability of hip fracture greater than or equal to 3% or a 10 year probability of any major osteoporosis-related fracture greater than or equal to 20% should be considered for treatment. - DXA scanner generated FRAX calculations may slightly differ from online FRAX calculations due to differences in software versions. - All recommendations and calculations are to be considered as guidelines and should not replace sound clinical judgement - Caution: Fracture risk may be increased independent of BMD in patients with corticosteroid use, age greater than 65 years, or a history of prior fragility fracture. RECOMMENDATIONS: Follow-up in 2 years or as clinically indicated. Patients that are taking corticosteroids, are transplant recipients or have hyperparathyroidism should have annual follow-up. Follow-up scans should always be done on the same machine for accurate comparison. FOR MORE INFORMATION ABOUT DIAGNOSIS AND TREATMENT: [facility] for Osteoporosis and Metabolic Bone Disease:? www.ccf.org/arthritis/osteo National Osteoporosis Foundation:? www.nof.org International Society of Clinical Densitometry www.iscd.org Machine Ceramic Coater: LAURENT Transcribe Date/Time: Apr 24 2024 10:28A Dictated by : SUZE PETTY MD This examination was interpreted and the report reviewed and electronically signed by: SUZE PETTY MD on Apr 24 2024 10:30AM EST [facility] DXA Skeletal system.axial Vi ews for bone densityon 04-24-2024 * * *Final Report* * * DATE OF EXAM: Apr 24 2024 10:15AM [facility] 0804 - BD DXA - AXIAL SKELETON / PROCEDURE REASON: Asymptomatic menopause * * * * Physician Interpretation * * * * EXAMINATION: DXA BONE DENSITOMETRY BD DXA - AXIAL SKELETON, BD DXA TRABECLR BONE SCORE (TBS) PATIENT DEMOGRAPHICS: Age: 69 years, Gender: Female SCANNER INFORMATION: DXA Model: [employer] - [employer] C [id number] Date Scanned: 04/24/2024 10:15 AM CLINICAL HISTORY: DIAGNOSTIC Asymptomatic menopause . RISK FACTORS FOR OSTEOPOROSIS AND ASSOCIATED FRACTURES REPORTED BY THIS PATIENT: Please refer to Bone Health Questionnaire in the EMR CURRENT THERAPY: Please refer to Bone Health Questionnaire in the EMR TECHNICAL LIMITATIONS: None RESULTS: Lumbar spine (L1, L2, L3, L4): 1.146 g/cm2, T-score 1.2, Z-score 3.0 Right Femoral Neck: 0.604 g/cm2, T-score -2.2, Z-score -0.6 Right Total Hip: 0.887 g/cm2, T-score -0.5, Z-score 0.9 Left Femoral Neck: 0.602 g/cm2, T-score -2.2, Z-score -0.6 Left Total Hip: 0.841 g/cm2, T-score -0.8, Z-score 0.5 No comparison data - the patient has not had a previous bone density in the [facility] or the previous bone density was performed on a different DXA machine (new, updated model or different location) within the [facility]. VERTEBRAL FRACTURE ASSESSMENT Not performed. TRABECULAR BONE ASSESSMENT TBS score: 1.313 Bone micro-architecture: Normal (> 1.310) DIVISION OF RADIOLOGY Provider, [facility]/24/[facility]24 * * *Final Report* * * DATE OF EXAM: Apr 24 2024 10:15AM [facility] 0804 - BD DXA - AXIAL SKELETON / PROCEDURE REASON: Asymptomatic menopause * * * * Physician Interpretation * * * * EXAMINATION: DXA BONE DENSITOMETRY BD DXA - AXIAL SKELETON, BD DXA TRABECLR BONE SCORE (TBS) PATIENT DEMOGRAPHICS: Age: 69 years, Gender: Female SCANNER INFORMATION: DXA Model: [employer] - [employer] C [id number] Date Scanned: 04/24/2024 10:15 AM CLINICAL HISTORY: DIAGNOSTIC Asymptomatic menopause . RISK FACTORS FOR OSTEOPOROSIS AND ASSOCIATED FRACTURES REPORTED BY THIS PATIENT: Please refer to Bone Health Questionnaire in the EMR CURRENT THERAPY: Please refer to Bone Health Questionnaire in the EMR TECHNICAL LIMITATIONS: None RESULTS: Lumbar spine (L1, L2, L3, L4): 1.146 g/cm2, T-score 1.2, Z-score 3.0 Right Femoral Neck: 0.604 g/cm2, T-score -2.2, Z-score -0.6 Right Total Hip: 0.887 g/cm2, T-score -0.5, Z-score 0.9 Left Femoral Neck: 0.602 g/cm2, T-score -2.2, Z-score -0.6 Left Total Hip: 0.841 g/cm2, T-score -0.8, Z-score 0.5 No comparison data - the patient has not had a previous bone density in the [facility] or the previous bone density was performed on a different DXA machine (new, updated model or different location) within the [facility]. VERTEBRAL FRACTURE ASSESSMENT Not performed. TRABECULAR BONE ASSESSMENT TBS score: 1.313 Bone micro-architecture: Normal (> 1.310) IMPRESSION IMPRESSION: THE LOWEST T-SCORE IS -2.2 IN THE RIGHT AND LEFT HIPS 1) DIAGNOSIS (based on BMD alone): OSTEOPENIA Caution: Medical conditions other than osteoporosis may cause low bone density, such as osteomalacia or renal osteodystrophy. Clinical correlation is necessary. 2) FRACTURE RISK (Based on TBS adjusted FRAX): 10-year absolute fracture risk: - major osteoporotic fracture = 17 % - hip fracture = 2.9 % - A diagnosis of Osteoporosis, a 10 year probability of hip fracture greater than or equal to 3% or a 10 year probability of any major osteoporosis-related fracture greater than or equal to 20% should be considered for treatment. - DXA scanner generated FRAX calculations may slightly differ from online FRAX calculations due to differences in software versions. - All recommendations and calculations are to be considered as guidelines and should not replace sound clinical judgement - Caution: Fracture risk may be increased independent of BMD in patients with corticosteroid use, age greater than 65 years, or a history of prior fragility fracture. RECOMMENDATIONS: Follow-up in 2 years or as clinically indicated. Patients that are taking corticosteroids, are transplant recipients or have hyperparathyroidism should have annual follow-up. Follow-up scans should always be done on the same machine for accurate comparison. FOR MORE INFORMATION ABOUT DIAGNOSIS AND TREATMENT: [facility] for Osteoporosis and Metabolic Bone Disease:? www.ccf.org/arthritis/osteo National Osteoporosis Foundation:? www.nof.org International Society of Clinical Densitometry www.iscd.org Machine Ceramic Coater: LAURENT Transcribe Date/Time: Apr 24 2024 10:28A Dictated by : SUZE PETTY MD This examination was interpreted and the report reviewed and electronically signed by: SUZE PETTY MD on Apr 24 2024 10:30AM [facility] HbA1c (Bld)on 04-24-2024 Average glucose Estimated from glycated hemoglobin (Bld) [Mass/Vol] 154 mg/dL Normal [facility] Comment on above: Order Comment: Speci men Type: BLOOD SPECIMENOrdering Facility: [facility] Address: [address] [id number] Result Comment: eAG: (Estimated average glucose) is a calculated value from HgbA1c and is metals sales representative of the average blood glucose level in the last 2-3 month period. Performed By: #### 5 5454-3 ####[facility] LABCLIA [id number] [address] [address] [place] HbA1c (Bld) [Mass fraction] 7.0 % High 4.3-5.6 [facility] Comment on above: Order Comment: Speci men Type: BLOOD SPECIMENOrdering Facility: [facility] Address: [address] [place] [address] Result Comment: Shivam ican Diabetes Association guidelines indicate that patients with HgbA1c in the range 5.7-6.4% are at increased risk for development of diabetes, and intervention by lifestyle modification may be beneficial. HgbA1c greater or equal to 6.5% is considered diagnostic of diabetes. Performed By: #### 5 5454-3 ####[facility] LABIA [id number] [address] [address] [place] ANGELITA SCREENINGon 04-24-2024 ANGELITA SCREENING * * *Final Report* * * DATE OF EXAM: Apr 24 2024 9:30AM [facility] 0581 - [facility] SCREENING / PROCEDURE REASON: Encounter for screening mammogram for breast cancer * * * * Physician Interpretation * * * * RESULT: [address] [address] [place] [address] #[id number] - [facility] SCREENING HISTORY: 69 year-old patient seen for screening. Patient is asymptomatic in both breasts. Patient states no personal history of breast cancer. COMPARISON STUDIES: The present examination has been compared to prior imaging studies dated 04/08/2020 (mammogram), 04/03/2021 (mammogram), 04/15/2022 (mammogram) and 04/22/2023 (mammogram). MAMMOGRAM TECHNIQUE: The study was acquired using full field digital technology and interpreted from soft copy. MAMMOGRAM FINDINGS: The breasts are almost entirely fatty. No suspicious masses, calcifications or other abnormalities are seen in either breast. There are no significant interval changes. IMPRESSION: There is no mammographic evidence of malignancy in either breast. Routine screening mammogram is recommended. Annual mammogram will be due in 1 year. BI-RADS Category 1: Negative RISK: Based on the Tyrer-Cuzick (TC) risk assessment model, this patient has a 2.0% lifetime risk of developing breast cancer, meaning they are at average risk for developing breast cancer. However, this is only an estimate based on available history provided on the patient's questionnaire. We encourage all patients to talk with their providers about these results, further recommendations for managing breast health, and appropriate supplemental screening options if the patient has dense breast tissue. Interpreting Radiologist: Marleni Verde M.D. Electronically signed on: 04/25/2024 Machine Ceramic Coater: ARNIE Transcribe Date/Time: Apr 24 2024 9:11A Dictated by: MARLENI VERDE MD This examination was interpreted and the report reviewed and electronically signed by: MARLENI VERDE MD on Apr 25 2024 7:12AM EST [id number] Normal [facility] No Panel InformationOrdered By: [facility] Provider on 04-24-2024 LOWEST T-SCORE -2.2 [facility] No Panel Informationon 04-24 IMPRESSION: THE LOWEST T-SCORE IS -2.2 IN THE RIGHT AND LEFT HIPS 1) DIAGNOSIS (based on BMD alone): OSTEOPENIA Caution: Medical conditions other than osteoporosis may cause low bone density, such as osteomalacia or renal osteodystrophy. Clinical correlation is necessary. 2) FRACTURE RISK (Based on TBS adjusted FRAX): 10-year absolute fracture risk: - major osteoporotic fracture = 17 % - hip fracture = 2.9 % - A diagnosis of Osteoporosis, a 10 year probability of hip fracture greater than or equal to 3% or a 10 year probability of any major osteoporosis-related fracture greater than or equal to 20% should be considered for treatment. - DXA scanner generated FRAX calculations may slightly differ from online FRAX calculations due to differences in software versions. - All recommendations and calculations are to be considered as guidelines and should not replace sound clinical judgement - Caution: Fracture risk may be increased independent of BMD in patients with corticosteroid use, age greater than 65 years, or a history of prior fragility fracture. RECOMMENDATIONS: Follow-up in 2 years or as clinically indicated. Patients that are taking corticosteroids, are transplant recipients or have hyperparathyroidism should have annual follow-up. Follow-up scans should always be done on the same machine for accurate comparison. FOR MORE INFORMATION ABOUT DIAGNOSIS AND TREATMENT: [facility] for Osteoporosis and Metabolic Bone Disease:? www.ccf.org/arthritis/osteo National Osteoporosis Foundation:? www.nof.org International Society of Clinical Densitometry www.iscd.org Machine Ceramic Coater: LAURENT Transcribe Date/Time: Apr 24 2024 10:28A Dictated by : SUZE PETTY MD This examination was interpreted and the report reviewed and electronically signed by: SUZE PETTY MD on Apr 24 2024 10:30AM [facility] DIVISION OF RADIOLOGY Radiology Study observation (narrative) [facility] [id number] 03-29-2024 [id number] HNO ID: [id number] Author: ROBYN ELENA OTR/L Service: ? Author Type: Occupational Therapist Type: [id number] Filed: 03/29/2024 09:04 Note Text: [facility] Therapy Occupational Therapy Plan of Care Certification Patient Name: Melanie Bird : 1955 [facility] #: [id number] Date: 03/28/2024 To: Modesta Daley MD From Therapist: ALVARO Boyce RE: Patient Certification/ Recertification Your review, approval and electronic signature are required in order to comply with Payor: [facility] [email or web address] AND [employer] / Plan: [facility] MEDICARE ADVANTAGE HMO / Product Type: HMO / regulations. The identified Occupational Therapy PLAN OF CARE for the patient is as follows: Z78.9 Decreased activities of daily living (ADL) (primary encounter diagnosis) G20.A1 Parkinson's disease, unspecified whether dyskinesia present, unspecified whether manifestations fluctuate ([facility]) G24.01 Tardive dyskinesia PLAN OF CARE: Assessment: Melanie Bird presents with diagnosis of Parkinson's disease that interferes with sit to stand transfers, feeding self, and grooming. The patient presents with impairments in coordination, strength, and symptom management. Based on her evaluation the following recommendations are made to enhance safety and independence: walk in shower with fold down bench would eliminate the need to step over a tub reducing fall risk, the fold down bench would allow patient to sit while bathing when needed and be put away when not needed and decrease risk of tripping. Patient reports tripping over removable shower chair on several occasions. A lift chair could assist with transfer ease and promote increased independence in home environment. An electric toothbrush requires less fine motor control making oral hygiene more manageable and reduces the impact of tremors on brushing thoroughness. Finally, patient could benefit from Gyenno Ruiz Twist anti tremor utensil to help counteract the effects of tremor improving self feeding ability. Patient declines follow up occupational therapy due to limited transportation and inaccessibility due to travel distance. Goals for Episode of Care: established 03/28/24 Patient will verbalize understanding OT recommendations to increase independence and quality of life (MET) Patient Goals: Obtain recommended DME for increased independence PLAN FOR NEXT VISIT: Patient demonstrates good understanding of plan of care and treatment. The above goals and plan of care were discussed and agreed upon by patient/family. For further details regarding this patient refer to the Occupational Therapy electronically documented visit dated 03/28/2024. Provider Attestation I have reviewed the treatment plan for Melanie Bird, [facility]# [id number] for the period of 03/28/24 -- 03/28/24, established on 03/28/2024. Signature certifies the need for therapy services. [facility] CNTHERAPYon 03-28-2024 CNTHERAPY OT/PT/Speech Visit ( [facility]) MELANIE BIRD ([id number]) 1955 F Date Time Provider Department 03/28/24 1:00 PM [facility] Provider Department Center 03/28/2024 1:00 PM [id number], DIANDRA [facility] Reason for Visit: OT Discharge [750] OT EVAL [748] Primary Visit Diagnosis:Decreased activities of daily living (ADL) [Z78.9] Other Visit Diagnoses:Parkinson's disease, unspecified whether dyskinesia present, unspecified whether manifestations fluctuate (HCC) [G20.A1] Tardive dyskinesia [G24.01] Allergies As of Date: 03/28/2024 Noted Allergy Reaction SEROQUEL (QUETIAPINE FUMARATE) 11/15/2012 1 - Mental Status Change VICTOZA (LIRAGLUTIDE) 09/21/2013 8 - GI Upset Date Reviewed: 10/25/2023 Reviewed by: Vera Rodarte MA - Fully Assessed Prescriptions as of 03/29/2024 - acyclovir (ZOVIRAX) 400 mg tablet Take 1 tablet by mouth two times a day. - zolpidem (AMBIEN) 5 mg tablet Take 1 tablet by mouth at bedtime as needed for sedation for up to 90 days. TAKE 1 TABLET BY MOUTH AT BEDTIME NEEDED FOR SEDATION - rOPINIRole (REQUIP) 0.5 mg tablet TAKE 1 TABLET BY MOUTH TWICE A DAY (NOON AND BEDTIME) - Cholecalciferol, Vitamin D3, (VITAMIN D-3) 50 mcg (2,000 unit) cap Take 1 capsule by mouth once daily. - insulin glargine U-300 conc (TOUJEO SOLOSTAR U-300 INSULIN) 300 unit/mL (1.5 mL) Inject 18 Units subcutaneously every morning. - sertraline (ZOLOFT) 100 mg tablet Take 1 tablet by mouth once daily. - magnesium oxide (MAG-OX) 400 mg (241.3 mg magnesium) tablet Take 2 tablets by mouth once daily. - ascorbic acid, vitamin C, (VITAMIN C) 500 mg tablet Take 1 tablet by mouth once daily. - semaglutide (OZEMPIC) 2 mg/dose (8 mg/3 mL) pen injector Inject 2 mg subcutaneously one time a week. - atorvastatin (LIPITOR) 20 mg tablet Take 1 tablet by mouth once daily. - gabapentin (NEURONTIN) 300 mg capsule Take 3 capsules by mouth daily at lunch - gabapentin (NEURONTIN) 600 mg tablet Take 3 tablets by mouth daily at bedtime for 180 days. - fexofenadine (SEFERINO) 180 mg tablet Take 1 tablet by mouth once daily. - amantadine HCl (SYMMETREL) 100 mg capsule Take 100 mg by mouth two times a day. - INGREZZA 80 mg capsule Take 1 capsule by mouth once daily. - diclofenac (VOLTAREN) 1 % topical gel Apply 2 g to affected area two times a day. - flash glucose sensor (FREESTYLE IZABELLA 2 SENSOR) kit Use to monitor blood sugars 4 times daily - polyethylene glycol 3350 17 gram/dose powder Take 17 g by mouth two times a day as needed for constipation. Drink a mix of 1 scoop in 8oz of water/beverage once daily as needed for constipation. - flash glucose scanning reader (FREESTYLE IZABELLA 2 READER) 1 Each four times daily. checking blood sugars DX E11.9 Insulin Yes - pen needle, diabetic (NOVOFINE PLUS) 32 gauge x 1/6 Use to inject insulin once daily - OXYGEN, HOME THERAPY, 2 L/min by Mask route daily at bedtime. CPAP 2L at night - cloNIDine HCl (CATAPRES) 0.1 mg tablet Take 1 tablet by mouth once daily. - omeprazole (PRILOSEC) 20 mg capsule Take 20 mg by mouth once daily. - blood sugar diagnostic (BLOOD GLUCOSE TEST) test strip Test Four times a day. Insulin Dep? Yes E11.9 DM 2 - calcium carbonate 600 mg-cholecalciferol 200 units (CALCARB 600 WITH VITAMIN D) 600 mg(1,500mg) -200 unit tab Take 1 tablet by mouth twice daily. - wheat dextrin (BENEFIBER SUGAR FREE, DEXTRIN,) 3 gram/4 gram powd 1/2 tablespoon per day x2 weeks. Then increase by 1/2 tablespoon every 2 weeks until you are taking 3 tablespoons per day in divided doses. - docusate sodium (COLACE) 100 mg capsule Take 1 capsule by mouth twice daily as needed for Constipation. - COMPOUNDED PRESCRIPTION Oxygen supplies dx: R79.81 R06.02 - blood sugar diagnostic (ONETOUCH ULTRA TEST) test strip Test blood sugar(s) 4 times daily. Dx: Type 2 DM - Uncontrolled E11.65 Insulin: Yes Normal [facility] 25(OH)D3 [facility] 25-hydroxyvitamin D3 [Mass/Vol] 39.7 ng/mL Normal 31.0-80.0 [facility] Comment on above: Order Comment: Speci men Type: BLOOD SPECIMENOrdering Facility: [facility] Address: [address], [place] [address] Result Comment: Clas sification of 25 [place] Vitamin D status: Deficiency/Insufficiency: < or = 30 ng/ml. Sufficiency/Optimal Levels: 31-80 ng/mL Toxicity: > 100 ng/mL. Test performed by chemiluminescent immunoassay. Performed By: #### 1 989-3 ####[facility] LABCLIA [id number] EDIE DINEROK [place] [id number] [facility] Tad 03-09-2024 CNPN Telephone (INTMWS) MELANIE BIRD ([id number]) 1955 F Date Time Provider Department 03/09/24 MODESTA DALEY INTMWS During your visit today, we recorded the following information about you: Neli Carr, RN 03/09/2024 4:30 PM Signed Pt called in and reports Batsheva the CM from [employer] was supposed to send a request to providers office for a PT and OT evaluation in January. She reports she wanted it because Pt has Parkinson's and Pt has a hard time feeding herself and she wanted to get special spoons for her and a new lift chair. I see a document from 12/10/23 from [employer] but I didn't see mention of the above. Called and left a message for Batsheva with [employer] to fax orders to providers office or call back and talk with a triage nurse. Please call and advise Pt. Inna Small APRN.SABINE 03/10/2024 9:[address] form on providers desk when received Inna Small APRN.Neli Thomas, RN 03/10/2024 10:09 AM Signed Enedelia Gavin with [employer] called and went through Pts notes. Looks like Batsheva sent an e-mail to her company manager about how to get the IT consult on non-skillable need. Enedelia is going to send fax requesting PT and OT to fax # [phone]. Neli Carr RN 03/17/2024 12:43 PM Signed Enedelia Gavin with [employer] called and she is going to refax request for PT and OT. Please call her back if fax doesn't come through. She states she will be there until 5 pm. Kailey Diamond MA 03/17/2024 3:19 PM Signed Received and placed on PCP desk for review. Effie Clemente MA 03/20/2024 10:16 AM Signed Order pended in [facility]. If agreeable please sign. Nursing to then fax order to [facility] on Aging. BRITTANY Albert Chitra, MD 03/20/2024 5:40 PM Signed Filed Effie Clemente MA 03/21/2024 9:09 AM Signed Orders faxed as requested below. Effie Clemente MA Allergies As of Date: 03/09/2024 Noted Allergy Reaction SEROQUEL (QUETIAPINE FUMARATE) 11/15/2012 1 - Mental Status Change VICTOZA (LIRAGLUTIDE) 09/21/2013 8 - GI Upset Date Reviewed: 10/25/2023 Reviewed by: Vera Rodarte MA - Fully Assessed Reason for Visit: Orders [681] Patient Question [1477] Primary Visit Diagnosis:Parkinson's disease, unspecified whether dyskinesia present, unspecified whether manifestations fluctuate ([facility]) [G20.A1] Other Visit Diagnosis:Tardive dyskinesia [G24.01] Order(s):CONSULT TO INGREDIENT SCALER HELPER [19990223] Order #: [id number]: 1 FUTURE Prescriptions as of 03/22/2024 - acyclovir (ZOVIRAX) 400 mg tablet Take 1 tablet by mouth two times a day. - zolpidem (AMBIEN) 5 mg tablet Take 1 tablet by mouth at bedtime as needed for sedation for up to 90 days. TAKE 1 TABLET BY MOUTH AT BEDTIME NEEDED FOR SEDATION - rOPINIRole (REQUIP) 0.5 mg tablet TAKE 1 TABLET BY MOUTH TWICE A DAY (NOON AND BEDTIME) - Cholecalciferol, Vitamin D3, (VITAMIN D-3) 50 mcg (2,000 unit) cap Take 1 capsule by mouth once daily. - insulin glargine U-300 conc (TOUJEO SOLOSTAR U-300 INSULIN) 300 unit/mL (1.5 mL) Inject 18 Units subcutaneously every morning. - sertraline (ZOLOFT) 100 mg tablet Take 1 tablet by mouth once daily. - magnesium oxide (MAG-OX) 400 mg (241.3 mg magnesium) tablet Take 2 tablets by mouth once daily. - ascorbic acid, vitamin C, (VITAMIN C) 500 mg tablet Take 1 tablet by mouth once daily. - semaglutide (OZEMPIC) 2 mg/dose (8 mg/3 mL) pen injector Inject 2 mg subcutaneously one time a week. - atorvastatin (LIPITOR) 20 mg tablet Take 1 tablet by mouth once daily. - gabapentin (NEURONTIN) 300 mg capsule Take 3 capsules by mouth daily at lunch - gabapentin (NEURONTIN) 600 mg tablet Take 3 tablets by mouth daily at bedtime for 180 days. - fexofenadine (SEFERINO) 180 mg tablet Take 1 tablet by mouth once daily. - amantadine HCl (SYMMETREL) 100 mg capsule Take 100 mg by mouth two times a day. - INGREZZA 80 mg capsule Take 1 capsule by mouth once daily. - diclofenac (VOLTAREN) 1 % topical gel Apply 2 g to affected area two times a day. - flash glucose sensor (FREESTYLE IZABELLA 2 SENSOR) kit Use to monitor blood sugars 4 times daily - polyethylene glycol 3350 17 gram/dose powder Take 17 g by mouth two times a day as needed for constipation. Drink a mix of 1 scoop in 8oz of water/beverage once daily as needed for constipation. - flash glucose scanning reader (FREESTYLE IZABELLA 2 READER) 1 Each four times daily. checking blood sugars DX E11.9 Insulin Yes - pen needle, diabetic (NOVOFINE PLUS) 32 gauge x 1/6 Use to inject insulin once daily - OXYGEN, HOME THERAPY, 2 L/min by Mask route daily at bedtime. CPAP 2L at night - cloNIDine HCl (CATAPRES) 0.1 mg tablet Take 1 tablet by mouth once daily. - omeprazole (PRILOSEC) 20 mg capsule Take 20 mg by mouth once daily. - blood sugar diagnosti (more content not included)... Normal [facility] CBC W Auto Differential pane l (Bld)on 01-20-2024 Basophils (Bld) [#/Vol] 0.04 10*3/uL Normal <0.11 [facility] Comment on above: Order Comment: Speci men Type: BLOOD SPECIMENOrdering Facility: [facility] Address: [address] [place] [address] Performed By: #### 5 7021-8 ####[facility] LABCLIA [id number] [place] [address] [place] Basophils/100 WBC (Bld) 0.5 % Normal [facility] Comment on above: Order Comment: Speci men Type: BLOOD SPECIMENOrdering Facility: [facility] Address: [address] [place] [address] Performed By: #### 5 7021-8 ####[facility] LABCLIA [id number] [place] [address] [place] Differential cell count method Nom (Bld) Auto Normal [facility] Comment on above: Order Comment: Speci men Type: BLOOD SPECIMENOrdering Facility: [facility] Address: [address] [place] [address] Performed By: #### 5 7021-8 ####[facility] LABCLIA [id number] [place] [address] [place] Eosinophils (Bld) [#/Vol] 0.10 10*3/uL Normal <0.46 [facility] Comment on above: Order Comment: Speci men Type: BLOOD SPECIMENOrdering Facility: [facility] Address: [address] [place] [address] Performed By: #### 5 7021-8 ####[facility] LABCLIA [id number] [place] [address] [place] Eosinophils/100 WBC (Bld) 1.2 % Normal [facility] Comment on above: Order Comment: Speci men Type: BLOOD SPECIMENOrdering Facility: [facility] Address: [address] [place] [address] Performed By: #### 5 7021-8 ####[facility] LABIA [id number] [place] [address] [place] Erythrocyte distribution width (RBC) [Ratio] 11.9 % Normal 11.5-15.0 [facility] Comment on above: Order Comment: Speci men Type: BLOOD SPECIMENOrdering Facility: [facility] Address: [address] [place] [address] Performed By: #### 5 7021-8 ####[facility] LABCLIA [id number] [place] [address] [place] Hematocrit (Bld) [Volume fraction] 44.1 % Normal 36.0-46.0 [facility] Comment on above: Order Comment: Speci men Type: BLOOD SPECIMENOrdering Facility: [facility] Address: [address] [place] [address] Performed By: #### 5 7021-8 ####[facility] LABIA [id number] [place] [address] [place] Hemoglobin (Bld) [Mass/Vol] 14.6 g/dL Normal 11.5-15.5 [facility] Comment on above: Order Comment: Speci men Type: BLOOD SPECIMENOrdering Facility: [facility] Address: [address] [place] [address] Performed By: #### 5 7021-8 ####[facility] LABCLIA [id number] [place] [address] [place] Immature granulocytes (Bld) [#/Vol] 10*3/uL Normal <0.10 [facility] Comment on above: Order Comment: Speci men Type: BLOOD SPECIMENOrdering Facility: [facility] Address: [address] [place] [address] Performed By: #### 5 7021-8 ####[facility] LABCLIA [id number] [place] [address] [place] Immature granulocytes/100 WBC (Bld) 0.2 % Normal [facility] Comment on above: Order Comment: Speci men Type: BLOOD SPECIMENOrdering Facility: [facility] Address: [address] [place] [address] Performed By: #### 5 7021-8 ####[facility] LABCLIA [id number] [place] [address] [place] Lymphocytes (Bld) [#/Vol] 1.87 10*3/uL Normal 1.00-4.00 [facility] Comment on above: Order Comment: Speci men Type: BLOOD SPECIMENOrdering Facility: [facility] Address: [address] [place] [address] Performed By: #### 5 7021-8 ####[facility] LABCLIA [id number] [place] [address] [place] Lymphocytes/100 WBC (Bld) 22.9 % Normal [facility] Comment on above: Order Comment: Speci men Type: BLOOD SPECIMENOrdering Facility: [facility] Address: [address] [place] [address] Performed By: #### 5 7021-8 ####[facility] LABIA [id number] [place] [address] [place] MCH (RBC) [Entitic mass] 32.7 pg Normal 26.0-34.0 [facility] Comment on above: Order Comment: Speci men Type: BLOOD SPECIMENOrdering Facility: [facility] Address: [address] [place] [address] Performed By: #### 5 7021-8 ####[facility] LABCLIA [id number] [place] [address] [place] MCHC (RBC) [Mass/Vol] 33.1 g/dL Normal 30.5-36.0 [facility] Comment on above: Order Comment: Speci men Type: BLOOD SPECIMENOrdering Facility: [facility] Address: [address] [place] [address] Performed By: #### 5 7021-8 ####[facility] LABCLIA [id number] [place] [address] [place] MCV (RBC) [Entitic vol] 98.9 fL Normal 80.0-100.0 [facility] Comment on above: Order Comment: Speci men Type: BLOOD SPECIMENOrdering Facility: [facility] Address: [address] [place] [address] Performed By: #### 5 7021-8 ####[facility] LABCLIA [id number] [place] [address] [place] Monocytes (Bld) [#/Vol] 0.51 10*3/uL Normal <0.87 [facility] Comment on above: Order Comment: Speci men Type: BLOOD SPECIMENOrdering Facility: [facility] Address: [address] [place] [address] Performed By: #### 5 7021-8 ####[facility] LABCLIA [id number] [place] [address] [place] Monocytes/100 WBC (Bld) 6.2 % Normal [facility] Comment on above: Order Comment: Speci men Type: BLOOD SPECIMENOrdering Facility: [facility] Address: [address] [place] [address] Performed By: #### 5 7021-8 ####[facility] LABCLIA [id number] [place] [address] [place] Neutrophils (Bld) [#/Vol] 5.63 10*3/uL Normal 1.45-7.50 [facility] Comment on above: Order Comment: Speci men Type: BLOOD SPECIMENOrdering Facility: [facility] Address: [address] [place] [address] Performed By: #### 5 7021-8 ####[facility] LABCLIA [id number] [place] [address] [place] Neutrophils/100 WBC (Bld) 69.0 % Normal [facility] Comment on above: Order Comment: Speci men Type: BLOOD SPECIMENOrdering Facility: [facility] Address: [address] [place] [address] Performed By: #### 5 7021-8 ####[facility] LABCLIA [id number] [place] [address] [place] Nucleated RBC (Bld) [#/Vol] 10*3/uL Normal <0.01 [facility] Comment on above: Order Comment: Speci men Type: BLOOD SPECIMENOrdering Facility: [facility] Address: [address] [place] [address] Performed By: #### 5 7021-8 ####[facility] LABCLIA [id number] [place] [address] [place] Nucleated RBC/100 WBC (Bld) [Ratio] 0.0 /100 WBC Normal [facility] Comment on above: Order Comment: Speci men Type: BLOOD SPECIMENOrdering Facility: [facility] Address: [address] [place] [address] Performed By: #### 5 7021-8 ####[facility] LABCLIA [id number] [place] [address] [place] Platelet mean volume (Bld) [Entitic vol] 11.0 fL Normal 9.0-12.7 [facility] Comment on above: Order Comment: Speci men Type: BLOOD SPECIMENOrdering Facility: [facility] Address: [address] [place] [address] Performed By: #### 5 7021-8 ####[facility] LABCLIA [id number] [place] [address] [place] Platelets (Bld) [#/Vol] 214 10*3/uL Normal 150-400 [facility] Comment on above: Order Comment: Speci men Type: BLOOD SPECIMENOrdering Facility: [facility] Address: [address] [place] [address] Performed By: #### 5 7021-8 ####[facility] LABCLIA [id number] [place] [address] [place] RBC (Bld) [#/Vol] 4.46 10*6/uL Normal 3.90-5.20 [facility] Comment on above: Order Comment: Speci men Type: BLOOD SPECIMENOrdering Facility: [facility] Address: [address] [place] [address] Performed By: #### 5 7021-8 ####[facility] LABIA [id number] [place] [address] [place] WBC (Bld) [#/Vol] 8.17 10*3/uL Normal 3.70-11.00 [facility] Comment on above: Order Comment: Speci men Type: BLOOD SPECIMENOrdering Facility: [facility] Address: [address] [place] [address] Performed By: #### 5 7021-8 ####[facility] LABIA [id number] [place] [address] [place] CNOVon 01-20-2024 CNOV Office Visit (INTMWS ) MELANIE BIRD ([id number]) 1955 F Date Time Provider Department 01/20/24 9:20 AM INNA SMALL INTJODI During your visit today, we recorded the following information about you: Pulse Respiration Blood pressure Weight 72/minute 16/minute 112/68 84.4 kg Inna Small 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 01/20/2024 9:32 AM Signed CC: Patient presents with: Recheck: 6 month follow up HPI Melanie Bird is a 68 year old female who presents today for routine follow up. DIABETES MELLITUS: Ms. Bird denies increased frequency of urination, chest pain or dyspnea , numbness, tingling or pain in extremities, new or unusual visual symptoms, low sugar/hypoglycemic reactions, weight loss/gain, lightheadedness/dizziness, and bowel changes/loose stools. Follows a diabetic diet some of the time but has been snacking more often due to not being able to go out as much. She is compliant with medication(s) and is tolerating med(s) without any side effects. She reports checking her glucose on a once a day schedule with sugars in the fasting under 200 range. Patient's last HgA1C was Hemoglobin A1C (%) Date Value 01/11/2024 7.2 11/15/2020 7.0 09/02/2020 7.2 Hemoglobin A1C (POCT) (%) Date Value 07/15/2023 6.7 04/15/2023 7.1 ) Has noticed intolerance to heat for the last few months. It is to the point she has not turned on her heat at home even though it is often 20-30 degrees outside. Feels like she is always sweaty and tired too. Denies recurrent infections, fever, chills, confusion, dizziness, syncope, new weakness, or headaches. Has parkinson and follows with neurology. Gets meals delivered but is able to bathe herself, feed herself, and do other daily self care routines. Is awaiting passport to come and evaluate her for walk in shower to allow her to continue with being self sufficient but to do so safely. REVIEW OF SYSTEMS See HPI PAST MEDICAL HISTORY Diagnosis Date Depression Diabetes mellitus type 2, uncontrolled High cholesterol History of colon polyps History of gallstones IBS (irritable bowel syndrome) Obesity 04/25/2013 BMI 48.43 ARIANA (obstructive sleep apnea) 03/06/2013 Parkinson disease (HCC) PAST SURGICAL HISTORY Procedure Laterality Date ANAL SPHINCTEROPLASTY SPHINCTEROPLASTY ANAL W/ IMPLANT ARTIFICIAL SPHINCTER ADULT BARIATRIC SURGERY HX 05/28/2021 CATARACT EXTRACTION HX Bilateral 08/2012 COLONOSCOPY GEN ANES 04/2019 INCISE FINGER TENDON SHEATH 12/20/2012 Left 3rd trigger finger release MANIPULATION KNEE JOINT UNDER GENERAL ANESTHESIA Left 01/23/2022 Left knee manipulation under anesthesia PAST SURGICAL HISTORY OF 06/2012 Interstim PAST SURGICAL HISTORY OF Right trigger thumb REMOVAL GALLBLADDER 2000 REMOVAL OF OVARY/TUBE(S) Bilateral 07/31/2022 Laparoscopic BSO and Myomectomy at [facility]- Dr. Delacruz TOTAL KNEE REPLACEMENT Left 10/29/2021 Left robotic total knee replacement ALLERGIES Seroquel [Quetiapine Fumarate] and Victoza [Liraglutide] MEDICATIONS sertraline (ZOLOFT) 100 mg tablet Take 1 tablet by mouth once daily. magnesium oxide (MAG-OX) 400 mg (241.3 mg magnesium) tablet Take 2 tablets by mouth once daily. ascorbic acid, vitamin C, (VITAMIN C) 500 mg tablet Take 1 tablet by mouth once daily. semaglutide (OZEMPIC) 2 mg/dose (8 mg/3 mL) pen injector Inject 2 mg subcutaneously one time a week. atorvastatin (LIPITOR) 20 mg tablet Take 1 tablet by mouth once daily. zolpidem (AMBIEN) 5 mg tablet Take 1 tablet by mouth at bedtime as needed for sedation for up to 90 days. TAKE 1 TABLET BY MOUTH AT BEDTIME NEEDED FOR SEDATION gabapentin (NEURONTIN) 300 mg capsule Take 3 capsules by mouth daily at lunch gabapentin (NEURONTIN) 600 mg tablet Take 3 tablets by mouth daily at bedtime for 180 days. fexofenadine (SEFERINO) 180 mg tablet Take 1 tablet by mouth once daily. amantadine HCl (SYMMETREL) 100 mg capsule Take 100 mg by mouth two times a day. INGREZZA 80 mg capsule Take 1 capsule by mouth once daily. insulin glargine U-300 conc (TOUJEO SOLOSTAR U-300 INSULIN) 300 unit/mL (1.5 mL) Inject 16 Units subcutaneously every morning. diclofenac (VOLTAREN) 1 % topical gel Apply 2 g to affected area two times a day. (Patient not taking: Reported on 10/25/2023) acyclovir (ZOVIRAX) 400 mg tablet Take 1 tablet by mouth two times a day. rOPINIRole (REQUIP) 0.5 mg tablet TAKE 1 TABLET BY MOUTH TWICE A DAY (NOON AND BEDTIME) Cholecalciferol, Vitamin D3, (VITAMIN D-3) 50 mcg (2,000 unit) cap Take 1 capsule by mouth once daily. flash glucose sensor (FREESTYLE IZABELLA 2 SENSOR) kit Use to monitor blood sugars 4 times daily polyethylene glycol 3350 17 gram/dose powder Take 17 g by mouth two times a day as needed for constipation. Drink a mix of 1 scoop in 8oz of water/beverage once daily as needed for constipation. flash glucose scanning reader (FREESTYLE L (more content not included)... Normal [facility] TSH SerPl-aCncon 01-20-2024 TSH Qn 1.000 m[IU]/L Normal 0.270-4.200 [facility] Comment on above: Order Comment: Speci men Type: BLOOD SPECIMENOrdering Facility: [facility] Address: [address] [place] [address] Performed By: #### 3 016-3, 2131-10 ####[facility] LABCLIA [id number] [place] [address] [place] Vit B12 SerP-mCncon 024 Cobalamin (Vitamin B12) [Mass/Vol] 1026 pg/mL Normal 232-1245 [facility] Comment on above: Order Comment: Speci men Type: BLOOD SPECIMENOrdering Facility: [facility] Address: [address] [place] [address] Performed By: #### 3 016-3, 2131-10 ####[facility] LABIA [id number] [place] [address] [place] ALBUMIN/CREATININE RATIO, UR INEon 01-11-2024 Albumin DL <= 20 mg/L (U) [Mass/Vol] 23.9 mg/L Normal [facility] Comment on above: Order Comment: Speci men Type: URINE SPECIMENOrdering Facility: [facility] Address: [address] [place] [address] Performed By: #### U ACR ####[facility] LABCLIA [id number] [place] [address] [place] Albumin/Creatinine (U) [Mass ratio] 43 mg/g High <30 [facility] Comment on above: Order Comment: Speci men Type: URINE SPECIMENOrdering Facility: [facility] Address: [address] [place] [address] Result Comment: Adul t Male and Female Nephrotic Criteria: <30 mg/g is considered normal to mildly increased 30-300 mg/g is considered moderately increased >300 mg/g is considered severely increased KDIGO. (2013). KDIGO 2012 Clinical Practice Guideline for the Evaluation and Management of Chronic Kidney Disease. Official Journal of the International Society of Nephrology, 3(1), 1-150. Performed By: #### U ACR ####[facility] LABCLIA [id number] [place] [address] [place] Creatinine (U) [Mass/Vol] 55.0 mg/dL Normal 20.0-300.0 [facility] Comment on above: Order Comment: Speci men Type: URINE SPECIMENOrdering Facility: [facility] Address: [address] [place] [address] Performed By: #### U ACR ####[facility] LABCLIA [id number] [place] [id number] [place] Basic metabolic 2000 panelon 01-11-2024 Anion gap [Moles/Vol] 10 mmol/L Normal 8-15 [facility] Comment on above: Order Comment: Speci men Type: BLOOD SPECIMENOrdering Facility: [facility] Address: [address] [place] [address] Performed By: #### 2 4321-2, 45079-2 ####[facility] LABCLIA [id number] [facility] [place] [address] [place] Calcium [Mass/Vol] 9.4 mg/dL Normal 8.5-10.2 [facility] Comment on above: Order Comment: Speci men Type: BLOOD SPECIMENOrdering Facility: [facility] Address: [address] [place] [address] Performed By: #### 2 4321-2, 90639-9 ####[facility] LABCLIA [id number] [place] [address] [place] Chloride [Moles/Vol] 102 mmol/L Normal 98-107 [facility] Comment on above: Order Comment: Speci men Type: BLOOD SPECIMENOrdering Facility: [facility] Address: [address] [place] [address] Performed By: #### 2 4321-2, 39340-1 ####[facility] LABIA [id number] [place] [address] [place] CO2 [Moles/Vol] 29 mmol/L Normal 22-30 [facility] Comment on above: Order Comment: Speci men Type: BLOOD SPECIMENOrdering Facility: [facility] Address: [address] [place] [address] Performed By: #### 2 4321-2, 05903-7 ####[facility] LABIA [id number] [address] [facility] Creatinine [Mass/Vol] 0.59 mg/dL Normal 0.58-0.96 [facility] Comment on above: Order Comment: Speci men Type: BLOOD SPECIMENOrdering Facility: [facility] Address: [address] [place] [address] Performed By: #### 2 4321-2, 89577-3 ####[facility] LABIA [id number] [address] [facility] Creatinine and Glomerular filtration rate.predicted panel (S/P/Bld) 100 mL/min/1.73m??? Normal >=60 [facility] Comment on above: Order Comment: Speci men Type: BLOOD SPECIMENOrdering Facility: [facility] Address: [address] [place] [address] Result Comment: Mere mated Glomerular Filtration Rate (eGFR) is calculated using the 2020 CKD-EPI creatinine equation. This equation utilizes serum creatinine, sex, and age as parameters. The creatinine assay has traceable calibration to isotope dilution-mass spectrometry. Refer to KDIGO guidelines for clinical interpretation. In patients with unstable renal function, e.g. those with acute kidney injury, the eGFR may not accurately reflect actual GFR. Performed By: #### 2 4321-2, 55298-0 ####[facility] LABCLIA [id number] [address] [address] [place] Glucose [Mass/Vol] 127 mg/dL High 74-99 [facility] Comment on above: Order Comment: Speci men Type: BLOOD SPECIMENOrdering Facility: [facility] Address: [address] [place] [address] Result Comment: The [place] Diabetes Association (ADA) provides guidance for cutoff values for fasting glucose and random glucose. The ADA defines fasting as no caloric intake for at least 8 hours. Fasting plasma glucose results between 100 to 125 mg/dL indicate increased risk for diabetes (prediabetes). Fasting plasma glucose results greater than or equal to 126 mg/dL meet the criteria for diagnosis of diabetes. In the absence of unequivocal hyperglycemia, results should be confirmed by repeat testing. In a patient with classic symptoms of hyperglycemia or hyperglycemic crisis, random plasma glucose results greater than or equal to 200 mg/dL meet the criteria for diagnosis of diabetes. Reference: Standards of Medical Care in Diabetes 2016, [place] Diabetes Association. Diabetes Care. 2016.39(Suppl 1). Performed By: #### 2 432-, 88085-2 ####[facility] LABIA [id number] [address] [address] [place] Potassium [Moles/Vol] 4.8 mmol/L Normal 3.7-5.1 [facility] Comment on above: Order Comment: Zbigniewi men Type: BLOOD SPECIMENOrdering Facility: [facility] Address: [address] [place] [address] Performed By: #### 2 432-, 08432-7 ####[facility] LABIA [id number] [address] [address] [place] Sodium [Moles/Vol] 141 mmol/L Normal 136-144 [facility] Comment on above: Order Comment: Zbigniewi men Type: BLOOD SPECIMENOrdering Facility: [facility] Address: [address] [place] [address] Performed By: #### 2 4321-2, 90749-5 ####[facility] LABCLIA [id number] [place] [address] [place] Urea nitrogen [Mass/Vol] 9 mg/dL Normal 7-21 [facility] Comment on above: Order Comment: Speci men Type: BLOOD SPECIMENOrdering Facility: [facility] Address: [address] [place] [address] Performed By: #### 2 4321-2, 39892-5 ####[facility] LABCLIA [id number] [place] [address] [place] HbA1c (Bld)on 01-11-2024 Average glucose Estimated from glycated hemoglobin (Bld) [Mass/Vol] 160 mg/dL Normal [facility] Comment on above: Order Comment: Chivo finnegan Type: BLOOD SPECIMENOrdering Facility: [facility] Address: [address] [place] [address] Result Comment: eAG: (Estimated average glucose) is a calculated value from HgbA1c and is metals sales representative of the average blood glucose level in the last 2-3 month period. Performed By: #### 5 5454-3 ####[facility] LABCLIA [id number] [place] [address] [place] HbA1c (Bld) [Mass fraction] 7.2 % High 4.3-5.6 [facility] Comment on above: Order Comment: Chivo finnegan Type: BLOOD SPECIMENOrdering Facility: [facility] Address: [address] [place] [address] Result Comment: [place] Diabetes Association guidelines indicate that patients with HgbA1c in the range 5.7-6.4% are at increased risk for development of diabetes, and intervention by lifestyle modification may be beneficial. HgbA1c greater or equal to 6.5% is considered diagnostic of diabetes. Performed By: #### 5 5454-3 ####[facility] LABCLIA [id number] [place] [address] [place] Lipid 1996 panelon 4 Cholesterol [Mass/Vol] 145 mg/dL Normal <200 [facility] Comment on above: Order Comment: Speci men Type: BLOOD SPECIMENOrdering Facility: [facility] Address: [address] [place] [address] Result Comment: <200 mg/dL, Desirable 200-239 mg/dL, Borderline high >239 mg/dL, High Performed By: #### 2 4321-2, 26445-8 ####[facility] LABCLIA [id number] [place] [address] [place] Cholesterol in HDL [Mass/Vol] 57 mg/dL Normal >39 [facility] Comment on above: Order Comment: Speci men Type: BLOOD SPECIMENOrdering Facility: [facility] Address: [address] [place] [address] Result Comment: 40-5 9 mg/dL, Acceptable >59 mg/dL, High: Negative risk factor for coronary heart disease <40 mg/dL, Low: Positive risk factor for coronary heart disease Performed By: #### 2 4321-2, 64526-4 ####[facility] LABCLIA [id number] [address] [place] Cholesterol in LDL [Mass/Vol] 68 mg/dL Normal <100 [facility] Comment on above: Order Comment: Speci men Type: BLOOD SPECIMENOrdering Facility: [facility] Address: [address] [place] [address] Result Comment: <100 mg/dL, Optimal 100-129 mg/dL, Near optimal/above optimal 130-159 mg/dL, Borderline high 160-189 mg/dL, High >189 mg/dL, Very high Secondary prevention optimal LDL Cholesterol levels are recommended to be < 70 mg/dL Performed By: #### 2 4321-2, 56212-4 ####[facility] LABCLIA [id number] [place] [address] [place] Cholesterol in LDL/Cholesterol in HDL [Mass ratio] 1.19 {ratio} Normal <2.54 [facility] Comment on above: Order Comment: Chivo finnegan Type: BLOOD SPECIMENOrdering Facility: [facility] Address: [address] [place] [address] Result Comment: Kunal gomez: 1. National Cholesterol Education Program ATP III Guideline At-A-Glance Quick Desk Reference: National Heart, Lung, and Blood [place]. National Institutes of Health. 2001: NIH Publication No. 01-3305. 2. An International Atherosclerosis Society position paper: global recommendations for the management of dyslipidemia: executive summary, Atherosclerosis. 2014: 232(2):410-413. Performed By: #### 2 4321-2, 36420-6 ####[facility] LABCLIA [id number] [address] [place] Cholesterol in VLDL [Mass/Vol] 20 mg/dL Normal <30 [facility] Comment on above: Order Comment: Zbigniewmarija finnegan Type: BLOOD SPECIMENOrdering Facility: [facility] Address: [address] [place] [address] Performed By: #### 2 432-2, 36939-1 ####[facility] LABCLIA [id number] [address] [place] Cholesterol non HDL [Mass/Vol] 88 mg/dL Normal <130 [facility] Comment on above: Order Comment: Chivo finnegan Type: BLOOD SPECIMENOrdering Facility: [facility] Address: [address] [place] [address] Result Comment: <130 mg/dL, Optimal 130-159 mg/dL, Near optimal/above optimal 160-189 mg/dL, Borderline high 190-219 mg/dL, High >219 mg/dL, Very high Secondary prevention optimal non HDL Cholesterol levels are recommended to be <100 mg/dL Performed By: #### 2 4321-2, 75317-2 ####[facility] LABCLIA [id number] [place] [address] [place] Cholesterol.total/Cho lesterol in HDL [Mass ratio] 2.54 {ratio} Normal <5.10 [facility] Comment on above: Order Comment: Speci men Type: BLOOD SPECIMENOrdering Facility: [facility] Address: [address] [place] [id number] Performed By: #### 2 4321-2, 57355-0 ####[facility] LABCLIA [id number] [place] [address] [place] FASTING TIME 12 hrs Normal [facility] Comment on above: Order Comment: Speci men Type: BLOOD SPECIMENOrdering Facility: [facility] Address: [address] [place] [address] Performed By: #### 2 4321-2, 24196-7 ####[facility] LABCLIA [id number] [place] [address] [place] Triglyceride [Mass/Vol] 99 mg/dL Normal <150 [facility] Comment on above: Order Comment: Speci men Type: BLOOD SPECIMENOrdering Facility: [facility] Address: [address] [place] [address] Result Comment: <150 mg/dL, Normal 150-199 mg/dL, Borderline high 200-499 mg/dL, High >499 mg/dL, Very high Performed By: #### 2 4321-2, 69170-0 ####[facility] LABCLIA [id number] [place] [address] [place] XR Shoulder - left 3 Viewson 07-20-2023 IMPRESSION: No acute osseous abnormality Machine Ceramic Coater: LAURENT Transcribe Date/Time: Jul 20 2023 3:22P Dictated by : BECCA MCFARLAND MD This examination was interpreted and the report reviewed and electronically signed by: BECCA MCFARLAND MD on Jul 20 2023 3:24PM [facility] DIVISION OF RADIOLOGY * * *Final Report* * * DATE OF EXAM: Jul 15 2023 10:44AM WOX 5252 - XR SHLDR >/=3V AP/NILDA AP/OTHR LT / PROCEDURE REASON: multiple diagnoses * * * * Physician Interpretation * * * * EXAMINATION: XR SHLDR >/=3V AP/NILDA AP/OTHR LT CLINICAL HISTORY: Chronic left shoulder pain Technique: XR SHLDR >/=3V AP/NILDA AP/OTHR LT -- LEFT with 3 views on 3 images Comparison: None RESULT: No acute fracture or dislocation. Glenohumeral joint space is maintained. Mild acromioclavicular joint space narrowing. DIVISION OF RADIOLOGY Provider, [facility] - 07/20/2023 * * *Final Report* * * DATE OF EXAM: Jul 15 2023 10:44AM WOX 5252 - XR SHLDR >/=3V AP/NILDA AP/OTHR LT / PROCEDURE REASON: multiple diagnoses * * * * Physician Interpretation * * * * EXAMINATION: XR SHLDR >/=3V AP/NILDA AP/OTHR LT CLINICAL HISTORY: Chronic left shoulder pain Technique: XR SHLDR >/=3V AP/NILDA AP/OTHR LT -- LEFT with 3 views on 3 images Comparison: None RESULT: No acute fracture or dislocation. Glenohumeral joint space is maintained. Mild acromioclavicular joint space narrowing. IMPRESSION IMPRESSION: No acute osseous abnormality Machine Ceramic Coater: LAURENT Transcribe Date/Time: Jul 20 2023 3:22P Dictated by : BECCA MCFARLAND MD This examination was interpreted and the report reviewed and electronically signed by: BECCA MCFARLAND MD on Jul 20 2023 3:24PM EST [facility] XR Shoulder - left 3 ViewsOr dered By: [facility] Provider on 07-20-2023 [facility] HEMOGLOBIN A1C (POC)on 07-14 HbA1c (Bld) [Mass fraction] 6.7 % Abnormal 4.3 - 5.6 % [facility] Comment on above: Location:[address], [address] Point of care (POC) Hemoglobin A1c (HGBA1C) testing is intended to assess glucose control and provide a management tool for patients known to have diabetes and their healthcare providers. Target HGBA1C levels may depend on specific clinical circumstances. POC HGBA1C is not intended for use as a diagnostic or screening test; laboratory-based testing should be used for diagnostic purposes. The following information is supplemental and may not be applicable to specific diabetes management situations: The POC device [place] provides a normal range of 4.2% to 6.5% for the HGBA1C POC test. However, the [place] Diabetes Association guidelines indicate that patients with HGBA1C in the range of 5.7% to 6.4% are at increased risk for development of diabetes and that intervention by lifestyle modification may be beneficial. A HGBA1C level greater than or equal to 6.5% is considered diagnostic of diabetes, pending confirmatory testing. Use of HGBA1C testing to evaluate glucose control may not be appropriate for patients with hemoglobin variants or other conditions (e.g. anemia) that alter red blood cell lifespan. Interpretation and review of laboratory results Abnormal [facility] XR Shoulder - left 3 Viewson 07-15-2023 Radiology Study observation (narrative) [facility] MG Breast Screeningon 2023 [facility] HEMOGLOBIN A1C (POC)on HbA1c (Bld) [Mass fraction] 7.1 % Abnormal 4.3 - 5.6 % [facility] HEMOGLOBIN A1C (POC)on 01-13 HbA1c (Bld) [Mass fraction] 7.2 % Abnormal 4.2 - 5.6 % [facility] 36on 12-30-2022 36 Unable to reach susan ent regarding results. Will mail recommendation for patient to call the office regarding abnormal results for accurate supplementation. Will recheck after return phone call has been made. Normal [facility] 36 Called patient to tawny peralta abnormal labs, no answer, left voicemail for patient to call back. Normal [facility] Office Visiton 12-18-2022 Follow-up visit [id number] Edith Bird 1955 F Date Provider Department Center 12/18/2022 [id number] None Family History Problem Relation Age of Onset Heart disease Mother Diabetes Mother Diabetes Father Stroke Father Diabetes Paternal Grandmother Hypertension Mother Diabetes Sister Obesity Mother Obesity Sister Heart disease Father Diabetes Brother Other Mother Comments: blood clot Diabetes Maternal Grandmother Colon cancer Sister Obesity Father Family Status - Relation Status Age at Mother Father Paternal Grandmother Sister Brother Maternal Grandmother Level of Service:[address] CT OFFICE/OUTPATIENT ESTABLISHED MOD MDM 30-39 MIN Reason for Visit and Comments: Bariatrics Post Op Follow-up [884] - POP 18m Normal [facility] 36on 12-16-2022 36 Called patient to tawny peralta abnormal labs, no answer, left voicemail for patient to call back. Normal [facility] 36on 12-15-2022 36 Lab: (12/11/22) Zinc 132 (H) Normal [facility] 36 Protein: 6.0 (L) ALT/AST Normal [facility] US ABD RIGHT UPPER QUADRANTo n 10-22-2022 [facility] 36on 08-26-2022 36 Sent pt Aviary mess age regarding low 6.0 from 08/25/22 (note albumin 3.8). No response to Aviary msg or follow up call. Sent pt letter via mail regarding lab results. Pt to call office to discuss results and recommendations. Will determine need for follow up labs, etc upon call. Normal [facility] Bedside Glucoseon 07-31-2022 FINGERSTICK GLU 119 mg/dL High 74-106 [facility] Comment on above: Result Comment: RANDEE GEMENT OF PATIENT CARE PER NURSING PROTOCOL Performed By: #### L 501.080 #### [facility] [address] [place], [address] FINGERSTICK GLU 115 mg/dL High 74-106 [facility] Comment on above: Result Comment: RANDEE GEMENT OF PATIENT CARE PER NURSING PROTOCOL Performed By: #### L 501.080 #### [facility] [address] [place], [address] Discharge Instructionon 07-16 Discharge Instruction [facility] Medical Records Department [address] [place] [address] Instructions for Home/Discharge Instructions 07/31/22 0849 MR#: [id number] Acct: [id number] Name: MELANIE BIRD Rep #: [id number] : 1955 67 From: Chyna Durant MD PCP: Dr. Modesta Daley MD Status:REG SDC Discharge Instructions Procedure Other Diet Discharge Diet: No restrictions Activity May resume sexual activity in: 2 weeks Lifting Restrictions: 20-25 lbs Dressing / Incision Call your doctor if your incision/area has: Continuous Slow Oozing, Sudden Increased Bleeding, Increased Pain/ Swelling, Increased Redness, Foul Smelling Discharge and Swelling at the incision site Call your doctor if you observe: Fever of 101 or Higher, Inability to urinate, Inability to have a bowel movement, Using more than 1 pad per hour and Uncontrolled pain Additional Dressing/Incision Instructions:: You have skin glue over your incision sites, do not pick off. You may shower and let the soap and water run over the incision sites and dab dry. Follow Up Care Please Follow Up With: Chyna Durant MD When: 1-2 weeks post OP if you need an appointment please call [phone] Test Results: Test results from this visit will be discussed in further detail at your follow-up appointment, if applicable. Discharge Plan Admission Attending Provider: Chyna Durant Primary Care Provider: Modesta Daley Consulting Providers: Jeremiah Ricadro Discharge Orders/Prescriptions Prescriptions: No Action atorvastatin 40 MG tablet 20 mg PO QHS Label Comments: reduces cholesterol acyclovir [Zovirax] 400 MG tablet 400 mg PO BID Label Comments: antiviral-cold sores ascorbic acid (vitamin C) [Vitamin C] 500 MG tablet 500 mg PO DAILY@0800 Label Comments: supplement gabapentin [Neurontin] 800 MG tablet 1,800 mg PO QHS Label Comments: nerve pain/restless legs zolpidem 5 MG tablet 5 mg PO QHS Label Comments: sleep alosetron 0.5 MG tablet 1 mg PO DAILY Label Comments: DIARRHEA calcium carbonate-vitamin D3 [Calcium 600 + D(3)] 1 EACH tablet 1 ea PO BID Label Comments: supplement Ropinirole Hcl [Requip] 1 MG tablet 0.5 mg PO BID Label Comments: restless legs alosetron 0.5 MG tablet 1 mg PO DINNER Label Comments: irritable bowel cholecalciferol (vitamin D3) [Vitamin D3] 1,000 UNIT tablet 2,000 unit PO DAILY Label Comments: supplement Gralise 600 MG tablet extended release 24 hr 1,200 mg PO LUNCH Label Comments: nerve pain clonidine HCl 0.1 mg tablet 0.1 mg PO QHS fexofenadine 180 mg Tablet 180 mg PO DAILY magnesium oxide [MagOx] 400 mg (241.3 mg magnesium) Tablet 400 mg PO DAILY sertraline 50 mg Tablet 50 mg PO DAILY Farxiga 5 mg Tablet 5 mg PO DAILY Balaji JayoStar U-300 Insulin 300 unit/mL (1.5 mL) insulin pen 18 unit SUBCUT DAILY Austedo 6 mg tablet 12 mg PO DAILY Austedo 6 mg tablet 18 mg PO QPM Ozempic 2 mg/dose (8 mg/3 mL) pen injector 2 mg SUBCUT MCMULLEN Referrals / Follow Up: Modesta Daley MD [Primary Care Provider] - Disposition Disposition (needs filled in before D/C Order can be placed): Home, Self Care 07/31/22 0850 Chyna Durant MD CC: Dr. Modesta Daley MD; Dr. Jeremiah Ricardo MD Signed Normal [facility] Glucose Glucometer (BldC) [M ass/Vol]Ordered By: Soniya Durant on 07-31-2022 Glucose [Mass/Vol] 119 mg/dL 74-106 [facility] Comment on above: MANAGEMENT OF PATIEN T CARE PER NURSING PROTOCOL Operative Reporton 3 Operative Report [facility] Medical Records Department [address] [place] [address] Operative Report 07/31/22 0850 MR#: [id number] Acct: [id number] Name: MELANIE BIRD Rep #: [id number] : 1955 67 From: Chyna Durant MD PCP: Dr. Modesta Daley MD Status:[facility] Location: [place] [address] Report of Operation Date of Procedure: 07/31/22 Pre-Operative Diagnosis: Right ovarian cyst (persistent) Post-Operative Diagnosis: Same, Pedunculated uterine fibroid Surgery/Procedure Performed:: Laparoscopic BSO, Myomectomy Dr. Benítez assisted with Manipulated of tissue, removal of specimen, closure of fascia Description of Surgical Findings:: Large right ovarian cyst, Normal left ovary and tube. Pedunculated fibroid on posterior aspect of uterus. Surgeon: Chyna Durant professional development director: Carrie Benítez Type of Anesthesia: General and Local Special Medications: .5% marcaine Specimen's removed: bilateral fallopian tubes, bilateral ovaries, right ovarian cyst, pedunculated fibroid Drains: none Estimated Blood Loss (mL): 5cc Fluids Replaced: 1700 Description of Procedure: After informed consent was obtained patient was taken to the operating room she was placed in supine position she was given anesthesia. She was then [facility] center and she was prepped and draped in normal sterile fashion. Bladder was drained prior to the start of procedure approximately 100cc of clear yellow urine was expelled. At this time attention was turned to the vaginal portion where weighted speculum placed at posterior fornix vagina single-tooth tenaculum was used to gently grasp the internal the cervix. uterus was gently sounded to approximately 7cm. Uterine manipulator was placed without difficulty. Legs then placed in parallel with the abdomen the tenaculum and the weighted speculum were removed. 2 towel clamps were placed superior to umbilicus. After Marcaine was injected inferior to umbilicus a small incision was made and a 5 mm trocar was placed under direct visualization. CO2 gas was used to insufflate the intra-abdominal cavity. Upon inspection large right ovarian cyst noted. pedunculated fibroid noted on posterior aspected noted.. At this time then the LLQ port was placed again Marcaine was injected small incision was made a knife and the 5 mm trocar was placed. this was repeated on right side. At this time then tubes were traced back to the fimbriated ends. Ligasure was used to coagulate and ligate along IP ligament, uterovarian and the mesosalpynx bilaterally until ovaries and tubes removed completely. Good hemostasis was appreciated. Careful attention on the right to ensure the cyst was not ruptured. at ths time time pedunuculated fiboroid was removed at the stalk. The umbilical incision was extended to 15mm and endocatch bag placed- specimens collected and removed. fascia of umbilical incision using 0-vicryl sutre in a running fashion. At this time procedure was deemed complete successful. The gas was desufflated on from the intra-abdominal cavity. The trochars were removed. Skin was closed using 4-0 Monocryl in a subcutaneous fashion. Dermabond glue was placed. Instrument lap and needle counts were correct ???2. The uterine manipulator was removed. Vaginal sweep was performed it was negative. There were no complications anticipated normal postoperative course for this patient. Grafts/Implants Used: none Procedure Start Time: 07:47 Procedure Stop Time: 08:56 Complications none. Admit VTE Documentation VTE Present on Admission: Yes VTE Mechan Device Prophylaxis: SCD's VTE Pharm Prophylaxis ordered?: No Reason prophylaxis not ordered:: Procedure Not Indicated 07/31/22901 Cosigner Signature (if applicable): CC: Soniya Durant; Dr. Modesta Daley MD; Dr. Jeremiah Ricardo MD Signed Normal [facility] Surgery Specimen Level IIIon 07-31-2022 Surgery Specimen Level III Patient Age/Sex Location Account Attending Physician MELANIE BIRD 67/F [facility] [place] [id number] Dr. Chyna Durant Specimen: [id number] Received: 07/31/22 Status: ALBERT Landry Num: [id number] Spec Type: OVARY Subm Dr: Soniya Silver HEADER OPERATION: Laparoscopic bilateral salpingo-oophorectomy, myomectomy PRE-OP DIAGNOSIS: Persistent right ovarian cyst TISSUE SUBMITTED: Bilateral fallopian tubes, bilateral ovaries, right ovarian cyst, pedunculated fibroid MICROSCOPIC DIAGNOSIS Right ovarian cyst, fallopian tubes and fibroid, excisions: Leiomyoma with degenerative and calcific change. Right and left fallopian tubes with no pathologic change. Right ovary with serous cyst adenofibroma. Left ovary with serous cystadenoma. AM:biju 08/03/2022 MICROSCOPIC DESCRIPTION Slides are reviewed. GROSS DESCRIPTION Received in fixative is one container labeled with the patient's name and designated bilateral fallopian tubes, bilateral ovaries, right ovarian cyst, pedunculated fibroid. The specimen consists of one fallopian tube with adjacent ovary, separate one fallopian tube, a detached nodular mass and a detached second ovary with cyst. The detached nodular mass weighs 2 gm and measures 3.0 x 3.2 x 2.0 cm. Sections of this mass reveals vincent whorled cut surfaces without areas of hemorrhage, necrosis or cystic degeneration. A separate fallopian tube, most likely right fallopian tube, measures 4.0 cm in length and 0.5 cm in diameter. The fimbrial end is identified. Sections unremarkable cut surfaces. The fallopian tube and adjacent ovary, most likely left fallopian tube and ovary. The left fallopian tube measures 5.0 cm in length and 0.5 cm in diameter. It is similar appearance to right. The adjacent left ovary measures 2.5 x 2.0 x 1.5 cm. Sections reveal a cyst filled with clear fluid measuring 1.2 cm in greatest dimension. The right ovary with cyst measures 8.0 x 6.5 x 2.0 cm and weighs 46 gm. The outer surface is smooth without any papillation. The portion of this cystic right ovary is partially disrupted. The external surface is inked black and is almost completely replaced by a simple cyst filled with clear fluid. No obvious papillations are identified. The inner cyst wall shows focal ragged area. The cyst appears to completely replace almost the entire ovary. Bag Maker sections are submitted in nine cassettes as follows: 1 - detached nodular mass, 2 3 - detached right fallopian tube, 4-6 - left fallopian tube and adjacent ovary (4 - left fallopian tube, 5 6 - left ovary), 7-9 - right cystic ovary. / SJ:rg 07/31/2022 TC:5 CPT: 43326 x2, 11525, 54516 x2 Patient Age/Sex Location Account Attending Physician MELANIE BIRD 67/F [facility] [place] [id number] Dr. Chyna Durant Signed (signature on file) Dr. Maco Yao DO 08/03/22 1305 Normal [facility] Comment on above: Performed By: #### P SUIII #### [facility] [address] [place], [address] 12 Lead EKGon 07-24-2022 12 Lead EKG [facility] Cardiovascular Services [address] [place] [address] 12 Lead EKG 07/24/22 1219 MR#: [id number] Acct: [id number] Name: MELANIE BIRD Rep #: [id number] : 1955 67 From: Aman Holly MD Attending Dr: Soniya Silver Sta tus: PRE SDC Ordering Dr: Chyna Durant MD Date: 11/07 Location: [facility] [place] Sex: F C Admitted: Test Reason : PRE-OP Blood Pressure : / mmHG Vent. Rate : 075 BPM Atrial Rate : 075 BPM P-R Int : 136 ms QRS Dur : 074 ms QT Int : 402 ms P-R-T Axes : 032 002 049 degrees QTc Int : 448 ms Normal sinus rhythm Normal ECG Confirmed by AMAN HOLLY MD ([id number]), supervising editor news reel NELI BANUELOS ([id number]) on 07/27/2022 1:40:49 PM Referred By: Chyna Durant Confirmed By:AMAN HOLLY MD 07/27/22 8740 Date Aman Holly MD CC: M Dr. Chyna Durant; Dr. Modesta Daley MD Signed Normal [facility] Basic Metabolic Profile (BMP )on 07-24-2022 BUN/CRE 15.2 RATIO Normal 10-20 [facility] Comment on above: Performed By: #### L 500.2500, L100.0500 #### [facility] [address] [place], [address] CA,Total 9.8 mg/dL Normal 8.5-10.1 [facility] Comment on above: Performed By: #### L 500.2500, L100.0500 #### [facility] [address] [place], [address] Chloride [Moles/Vol] 104 mmol/L Normal 98-107 [facility] Comment on above: Performed By: #### L 500.2500, L100.0500 #### [facility] [address] [place], [address] CO2 [Moles/Vol] 31.0 mmol/L Normal 21.0-32.0 [facility] Comment on above: Performed By: #### L 500.2500, L100.0500 #### [facility] [address] [place], [address] Creatinine [Mass/Vol] 0.66 mg/dL Normal 0.55-1.02 [facility] Comment on above: Result Comment: The validity of the calculated GFR GFRAA in patients over 70 years has not been determined. Clinical correlation is essential. Performed By: #### L 500.2500, L100.0500 #### [facility] [address] [place], [address] EST GFR - AA 116 mL/min Normal >60 [facility] Comment on above: Result Comment: Afri can [place] GFR Calc Performed By: #### L 500.2500, L100.0500 #### [facility] [address] [place], [address] GAP 7 Normal 5-15 [facility] Comment on above: Performed By: #### L 500.2500, L100.0500 #### [facility] [address] [place], [address] GFR/1.73 sq M.predicted among non-blacks MDRD (S/P/Bld) [Vol rate/Area] 96 mL/min/{1.73_m2} Normal >60 [facility] Comment on above: Result Comment: Non- GFR Calc Performed By: #### L 500.2500, L100.0500 #### [facility] [address] [place], [address] Glucose [Mass/Vol] 103 mg/dL Normal 74-106 [facility] Comment on above: Result Comment: Fast ing Glucose result from 100 to 125 mg/dL suggests IMPAIRED HOMEOSTASIS per A.D.A. criteria. Performed By: #### L 500.2500, L100.0500 #### [facility] [address] [place], [address] Potassium [Moles/Vol] 4.2 mmol/L Normal 3.5-5.1 [facility] Comment on above: Performed By: #### L 500.2500, L100.0500 #### [facility] [address] [place], [address] Sodium [Moles/Vol] 142 mmol/L Normal 136-145 [facility] Comment on above: Performed By: #### L 500.2500, L100.0500 #### [facility] [address] [place], [address] Urea nitrogen [Mass/Vol] 10 mg/dL Normal 7-18 [facility] Comment on above: Performed By: #### L 500.2500, L100.0500 #### [facility] [address] [place], [address] Basophil percentageOrdered B y: M Dr. Chyna Ashleyt-Delacruz on 07-24-2022 Chloride [Moles/Vol] 104 mmol/L 98-107 [facility] Glucose [Mass/Vol] 103 mg/dL 74-106 [facility] Comment on above: Fasting Glucose resu lt from 100 to 125 mg/dL suggests IMPAIRED HOMEOSTASIS per A.D.A. criteria. Potassium [Moles/Vol] 4.2 mmol/L 3.5-5.1 [facility] Sodium [Moles/Vol] 142 mmol/L 136-145 [facility] WBC (Bld) [#/Vol] 10.9 10*3/uL 4.4-11.0 [facility] Blood erythrocytes count (nu mber/volume)Ordered By: Soniya Delacruz on 07-24-2022 RBC (Bld) [#/Vol] 5.17 10*6/uL 4.2-5.4 [facility] Blood hemoglobin measurement (mass/volume)Ordered By: Soniya Delacruz on 07-24-2022 Hemoglobin (Bld) [Mass/Vol] 16.3 g/dL 12.0-15.0 [facility] Blood platelet mean volumeOr dered By: Soniya Durant on 07-24-2022 Platelet mean volume (Bld) [Entitic vol] 10.5 fL 6.2-12.0 [facility] CBC-Complete Blood Cnt No Di ffon 07-24-2022 Erythrocyte distribution width (RBC) [Ratio] 12.6 % Normal 11.6-14.6 [facility] Comment on above: Performed By: #### L 500.2500, L100.0500 #### [facility] [address] [place], [address] Hematocrit (Bld) [Volume fraction] 50.1 % High 37-47 [facility] Comment on above: Performed By: #### L 500.2500, L100.0500 #### [facility] [address] [place], [address] Hemoglobin (Bld) [Mass/Vol] 16.3 g/dL High 12.0-15.0 [facility] Comment on above: Performed By: #### L 500.2500, L100.0500 #### [facility] [address] [place], [address] MCH (RBC) [Entitic mass] 31.5 pg Normal 27.0-32.0 [facility] Comment on above: Performed By: #### L 500.2500, L100.0500 #### [facility] [address] [place], [address] MCHC (RBC) [Mass/Vol] 32.5 g/dL Normal 32-36 [facility] Comment on above: Performed By: #### L 500.2500, L100.0500 #### [facility] [address] [place], [address] MCV (RBC) [Entitic vol] 96.9 fL Normal 81-99 [facility] Comment on above: Performed By: #### L 500.2500, L100.0500 #### [facility] [address] [place], [address] Platelet mean volume (Bld) [Entitic vol] 10.5 fL Normal 6.2-12.0 [facility] Comment on above: Performed By: #### L 500.2500, L100.0500 #### [facility] [address] [place], [address] Platelets (Bld) [#/Vol] 219 10*3/uL Normal 150-450 [facility] Comment on above: Performed By: #### L 500.2500, L100.0500 #### [facility] [address] [place], [address] RBC (Bld) [#/Vol] 5.17 10*6/uL Normal 4.2-5.4 [facility] Comment on above: Performed By: #### L 500.2500, L100.0500 #### [facility] [address] [place], [address] RDW SD 45.1 fl High 35.1-43.9 [facility] Comment on above: Performed By: #### L 500.2500, L100.0500 #### [facility] [address] [place], [address] WBC (Bld) [#/Vol] 10.9 10*3/uL Normal 4.4-11.0 [facility] Comment on above: Performed By: #### L 500.2500, L100.0500 #### [facility] [address] [place], [address] Determination of erythrocyte mean corpuscular volume (MCV)Ordered By: Soniya Durant on 07-24-2022 MCV (RBC) [Entitic vol] 96.9 fL 81-99 [facility] Hematocrit Auto (Bld) [Volum e fraction]Ordered By: Soniya Durant on 07-24-2022 Hematocrit (Bld) [Volume fraction] 50.1 % 37-47 [facility] - Chemistry and C hemistry - challengeOrdered By: Soniya Durant on 07-24-2022 CO2 [Moles/Vol] 31.0 mmol/L 21.0-32.0 [facility] Urea nitrogen/Creatinine [Mass ratio] 15.2 mg/mg 10-20 [facility] - Hematology and Cell countsOrdered By: Soniya Durant on 07-24-2022 Erythrocyte distribution width (RBC) [Entitic vol] 45.1 fL 35.1-43.9 [facility] Erythrocyte distribution width (RBC) [Ratio] 12.6 % 11.6-14.6 [facility] MCH (RBC) [Entitic mass] 31.5 pg 27.0-32.0 [facility] MCHC Auto (RBC) [Mass/Vol]Or dered By: Soniya Durant on 07-24-2022 MCHC (RBC) [Mass/Vol] 32.5 g/dL 32-36 [facility] No Panel InformationOrdered By: Soniya Durant on 07-24-2022 Estimated GFR (MDRD) Amer 116 mL/min >60 [facility] Comment on above: GFR Calc Estimated GFR (MDRD) Non-Af Amer 96 mL/min >60 [facility] Comment on above: Non- GFR Calc Platelets bldOrdered By: Soniya Durant on 07-24-2022 Platelets (Bld) [#/Vol] 219 10*3/uL 150-450 [facility] Serum or plasma calcium liz urement (mass/volume)Ordered By: Soniya Durant on 07-24-2022 Calcium [Mass/Vol] 9.8 mg/dL 8.5-10.1 [facility] Serum or plasma creatinine m easurement (mass/volume)Ordered By: Soniya Durant on 07-24-2022 Creatinine [Mass/Vol] 0.66 mg/dL 0.55-1.02 [facility] Comment on above: The validity of the calculated GFR & GFRAA in patients over 70 years has not been determined. Clinical correlation is essential. Serum or plasma urea nitroge n measurement (mass/volume)Ordered By: Soniya Durant on 07-24-2022 Urea nitrogen [Mass/Vol] 10 mg/dL 7-18 [facility] Thin prep Papanicolaou smear with manual screeningOrdered By: Soniya Durant on 07-24-2022 Thin prep Papanicolaou smear with manual screening 7 5-15 [facility] Whole blood hemoglobin A1c/t otal hemoglobin ratio (mass fraction)Ordered By: Dr. Ricardo on 07-24-2022 HbA1c (Bld) [Mass fraction] 6.4 % High 3.8-5.6 [facility] Comment on above: Normal < 5.7 % Predi abetic 5.7 - 6.4 % Diabetic >or= 6.5 % Please note range changes. Result Comment: Norm al < 5.7 % Prediabetic 5.7 - 6.4 % Diabetic >or= 6.5 % Please note range changes. Performed By: #### L 501.9985 #### [facility] [address] [place], [address] PELVIC US WHIon 06-15-2022 [facility] HEMOGLOBIN A1C (POC)on 06-11 HbA1c (Bld) [Mass fraction] 8.0 % Abnormal 4.2 - 5.6 % [facility] 36on 05-26-20[address] in OV 05/26. Normal [facility] Office Visiton 05-26-2022 Follow-up visit [id number] Edith Bird 1955 F Date Provider Department Center 05/26/2022 [id number] IYER [facility] SURG None Family History Problem Relation Age of Onset Heart disease Mother Diabetes Mother Diabetes Father Stroke Father Diabetes Paternal Grandmother Hypertension Mother Diabetes Sister Obesity Mother Obesity Sister Heart disease Father Diabetes Brother Other Mother Comments: blood clot Diabetes Maternal Grandmother Colon cancer Sister Obesity Father Family Status - Relation Status Age at Mother Father Paternal Grandmother Sister Brother Maternal Grandmother Level of Service:33643 CT OFFICE/OUTPATIENT ESTABLISHED MOD MDM 30-39 MIN Reason for Visit and Comments: Bariatrics Post Op Follow-up [884] - 12M Normal [facility] Progress Noteon 05-26-2022 Progress Note [facility] > 6 MONTH POST-OPERATIVE DIETITIAN VISIT Date: 05/26/22 Patient's weight decreased by: 95.2 lbs Patient doesconsume 5-6 small meals daily Patient?s portions are adequate for current diet: ?-1 cup Protein requirements discussed- currently consuming not tracking grams protein daily. Current protein sources: lean cuisine, cheese stick, beans Recommendations: measure portions, track protein Fluid requirements discussed. Current Fluid Intake: 64+ Patient does drink sugar-free, caffeine-free and carbonation-free fluids only. Patient does wait 30 minutes before and after meals to drink Exercise activities discussed. Patient does currently exercise. She was reminded that regular exercise is critical part of a successful outcome following weight loss surgery. Behavioral/Emotional changes reviewed. Patient doesfeel comfortable with changes in eating behaviors and associated emotional changes. She was reminded that psychological counseling is available through the [facility] post-operatively. Recent Nutrient Concerns and Vitamin Supplementation Changes: vitamin D 76, to decrease to 1,000 international units every day. Pt agreeable. Compliant with vitamins. Hgb 16.0, iron WNL, ferritin WNL. Ensure well hydrated. Will let GEOTECHNICAL ENGINEERING TECHNICIAN/MD know. Pt to follow up with PCP regarding elevated Hgb. Will recheck in 3 months orders pended. Notes/Comments: pt c/o lots of gas. Eat slow, chew well, small sips, etc. Pt says it is constant, pt feels it is not related to food/fluid. Let let GEOTECHNICAL ENGINEERING TECHNICIAN/MD know. Visit completed by: Katerine Padgett RD [facility] Progress Note HPI, PHYSICAL EXAMIN ATION & PLAN POST-OP HPI: Patient here today for 12 month post-weight loss surgery follow up LRYGB, HH Repair The patient is feeling well. Denies nausea, vomiting, dysphagia, or any GERD Sx. Currently is not on any PPI. Patient states diet and exercise is going fairly well. Currently is eating 65-75 gm/day protein, and is compliant with prescribed multivitamins and supplements. Drinking about 64 oz H20 daily. Eating 3 meals and 3 snacks daily. Review of Systems Constitutional: Negative for fatigue and fever. HENT: Negative for congestion, rhinorrhea and trouble swallowing. Respiratory: Negative for cough, chest tightness and shortness of breath. Cardiovascular: Negative for chest pain, palpitations and leg swelling. Gastrointestinal: Positive for diarrhea. Negative for abdominal distention, abdominal pain, blood in stool, constipation and nausea. Genitourinary: Negative for dysuria, flank pain, frequency and urgency. Musculoskeletal: Negative for arthralgias, back pain and myalgias. Skin: Negative for color change and rash. Neurological: Negative for light-headedness and headaches. Psychiatric/Behavioral: Negative for dysphoric mood. The patient is not nervous/anxious. Vital signs are stable. Labs were Completed. All labs were: ALT 50, Glucose 230, B12 1,462, Hbg 16, Vit D 76.4 Physical Examination: BP 103/64 Pulse 71 Temp 36.3 ?C (97.4 ?F) Resp 16 Ht 5' 4 (1.626 m) Comment: BCC HGT CHK Wt 199 lb 12.8 oz (90.6 kg) BMI 34.30 kg/m? General: This patient is awake, alert, and oriented, and is in no apparent distress. Abdomen: Obese, soft, non-tender, non-distended without masses/ No evidence of abdominal hernia / Incisions consistent with previous surgeries. Extremities: No cyanosis, clubbing or edema/ No calf tenderness/No restrictions of movement, is ambulatory without assistance. Neurological: Intact x 4 extremities, no focal deficits notes. Skin: No rashes or lesions noted. Rectal: Deferred Current Medications: Patient's Medications New Prescriptions NYSTATIN (MYCOSTATIN) 612042 UNIT/GM POWDER Apply 1 application topically 2 times daily. Apply topically to affected area two times daily. Previous Medications ACYCLOVIR (ZOVIRAX) 400 MG TABLET 400 mg at noon and 400 mg in the evening. ALOSETRON (LOTRONEX) 1 MG TABLET 1 mg at noon and 1 mg in the evening. ASCORBIC ACID (VITAMIN C) 500 MG TABLET Take 500 mg by mouth in the morning. ATORVASTATIN (LIPITOR) 20 MG TABLET 20 mg before bedtime. AUSTEDO 6 MG TABLET 12 mg at noon and 12 mg in the evening. CALCIUM CITRATE PO Take 500 mg by mouth in the morning and 500 mg at noon and 500 mg before bedtime. CHOLECALCIFEROL (VITAMIN D-3) 50 MCG (2000 UT) CAPSULE Take 2,000 Units by mouth in the morning. CLONIDINE (CATAPRES) 0.1 MG TABLET Take 1 tablet by mouth in the morning. CYANOCOBALAMIN [address] 1 Dose under the tongue. DAPAGLIFLOZIN (FARXIGA) 5 MG Take 1 tablet by mouth daily (with breakfast). FEXOFENADINE (SEFERINO) 180 MG TABLET Take 180 mg by mouth in the morning. GABAPENTIN (NEURONTIN) 300 MG CAPSULE 900 mg before bedtime. GABAPENTIN (NEURONTIN) 600 MG TABLET 1,800 mg Nightly. INSULIN GLARGINE (TOUJEO SOLOSTAR) 300 UNIT/ML INJECTION Inject 16 Units under the skin. METFORMIN XR (GLUCOPHAGE-XR) 500 MG 24 HR TABLET 500 mg before bedtime. OXYGEN (O2) GAS Inhale 2 L/min Nightly. via nasal canula OZEMPIC, 2 MG/DOSE, 8 MG/3ML SOLUTION PEN-INJECTOR 1 (one) time per week. ROPINIROLE (REQUIP) 0.5 MG TABLET 0.5 mg at noon and 0.5 mg in the evening. SERTRALINE (ZOLOFT) 50 MG TABLET 50 mg before bedtime. TRAZODONE (DESYREL) 50 MG TABLET 50 mg Nightly. ZINC 25 MG TABLET Take 25 mg by mouth every other day. ZOLPIDEM (AMBIEN) 5 MG TABLET 5 mg Nightly. Modified Medications No medications on file Discontinued Medications ZINC 25 MG TABLET Take 1 tablet by mouth daily. Medications ordered during this encounter: Outpatient Encounter Medications as of 05/26/2022 Medication Sig Dispense Refill acyclovir (Zovirax) 400 MG tablet 400 mg at noon and 400 mg in the evening. alosetron (Lotronex) 1 MG tablet 1 mg at noon and 1 mg in the evening. ascorbic acid (Vitamin C) 500 MG tablet Take 500 mg by mouth in the morning. atorvastatin (Lipitor) 20 MG tablet 20 mg before bedtime. [place] 6 MG tablet 12 mg at noon and 12 mg in the evening. CALCIUM CITRATE PO Take 500 mg by mouth in the morning and 500 mg at noon and 500 mg before bedtime. cholecalciferol (Vitamin D-3) 50 MCG (2000 UT) capsule Take 2,000 Units by mouth in the morning. cloNIDine (Catapres) 0.1 MG tablet Take 1 tablet by mouth in the morning. Cyanocobalamin [address] 1 Dose under the tongue. dapagliflozin (Farxiga) 5 MG Take 1 tablet by mouth daily (with breakfast). fexofenadine (Seferino) 180 MG tablet Take 180 mg by mouth in the morning. gabapentin (Neurontin) 300 MG capsule 900 mg bef (more content not included)... [facility] 05-22-2022 36 Called and left f or pt to return the call. Referred pt to previously sent [employer] message. [facility] 05-19-2022 36 DOS 05/28/2021 LRYGB TB 05/14/2022 Paper labs Hgb: 16.0 (H) Hemct: 48.1 (H) Iron: 85 (WNL) Ferritin: 150 (WNL) Vitamin D: 76.4 (range: 31.0-80) Sent pt [employer] message regarding labs. [facility] SCREENINGon 04-15-2022 [facility] 36on 03-20-2022 36 Agree - follow w GI - thanks. [facility] ADDENDUMNOTEon 03-20-2022 ADDENDUMNOTE Addended by: JUN DURANT on: 03/20/2022 12:43 PM Modules accepted: Orders [facility] 03-19-2022 36 Called pt to discuss labs. Pt states she is not getting in adequate protein as she is still struggling with diarrhea. Pt states it happens with everything. Some days can tolerate one things, other days cannot tolerate that same food. Pt is making sure she is not drinking with her meals. Says she tried imodium in the am, would get so constipated that she would have to take something to relieve the constipation. Recommended pt ensure she is taking in 64 oz fluid consistently, some days pt is taking in 48oz only. Recommended pt try and keep track of foods that cause issues to try and find a trend, can send the list of foods that are causing issues to this RD to review. Recommended pt increase soluble fiber slowly. Can review if there are trigger foods with pt once pt sends food list of foods she gets diarrhea after. Recommended pt slowly increase soluble fiber foods such as beans, broccoli, oats, pears, apples, carrots, etc. pt agreeable. Of note pt has a hx of IBS-D, will forward to GEOTECHNICAL ENGINEERING TECHNICIAN for review. Recommended pt continue to follow with GI. Pt not taking any zinc supplements currently. Pt to add 25 mg zinc every day OR can purchase a 50 mg zinc and break it in half and take half of a 50 mg tablet daily. Pt agreeable. Med list updated. Will recheck both protein and zinc in 3 months orders pended. [facility] ADDENDUMNOTEon 03-19-2022 ADDENDUMNOTE Addended by: KATERINE PADGETT on: 03/19/2022 03:20 PM Modules accepted: Orders [facility] [id number] 36 Returned pt's call, no answer, lvm. Normal [facility] 36 Pt returned call and lvm regarding ab lab letter. Normal [facility] 36on 03-10-2022 36 Unable to reach susan ent regarding results. Will mail recommendation for patient to call the office regarding abnormal results for accurate supplementation. Will recheck after return phone call has been made. Normal [facility] 36on 03-09-2022 36 Called patient to tawny peralta abnormal labs, no answer, left voicemail for patient to call back. Normal [facility] 36on 03-06-2022 36 Protein: 5.9 (L) Zinc: 55 (L) Normal [facility] HEMOGLOBIN A1C (POC)on 12-11 HbA1c (Bld) [Mass fraction] 6.7 % Abnormal 4.2 - 5.6 % [facility] CT KNEE WO IVCON LTon 2021 [facility] XR KNEE GENERAL 4V AP BOTH/P A BOTH/LAT/MERC LEFTon 09-15-2021 [facility] ALBUMIN/CREAT RATIO RND URon 07-31-2021 Albumin DL <= 20 mg/L (U) [Mass/Vol] mg/dL [facility] Albumin/Creatinine (U) [Mass ratio] <10 <30 mg/g [facility] Creatinine (U) [Mass/Vol] 123.9 mg/dL 20.0 - 300.0 mg/dL [facility] HbA1c (Bld)on 07-30-2021 Average glucose Estimated from glycated hemoglobin (Bld) [Mass/Vol] 154 mg/dL [facility] HbA1c (Bld) [Mass fraction] 7.0 % High 4.3 - 5.6 % [facility] Basic Metabolic Panelon 04- Anion gap [Moles/Vol] 9 mmol/L Normal 3-13 [facility] Comment on above: Performed By: #### B MP3, HEMOG #### [address] [address] Calcium [Mass/Vol] 9.5 mg/dL Normal 8.4-10.4 [facility] Comment on above: Performed By: #### B MP3, HEMOG #### [facility] [address], [place] CO2 [Moles/Vol] 26 mmol/L Normal 22-30 [facility] Comment on above: Performed By: #### B MP3, HEMOG #### [facility] [address], [place] Creatinine [Mass/Vol] 0.62 mg/dL Normal 0.52-1.25 [facility] Comment on above: Performed By: #### B MP3, HEMOG #### [facility] [address], [place] eGFR OTHER > 90.0 Normal >60 [facility] Comment on above: Result Comment: KDIG O guidelines provide the following GFR categories: Stage GFR(ml/min/1.73 m2) Terms G1 >=90 Normal or high G2 60-89 Mildly decreased* G3a 45-59 Mildly to moderately decreased G3b 30-44 Moderately to severely decreased G4 15-29 Severely decreased G5 <15 Kidney failure *Relative to young adult level. In the absence of evidence of kidney damage, neither GFR category G1 nor G2 fulfill the criteria for CKD. The CKD-EPI equation is validated in individuals 18 years of age and older. Currently the best equation for estimating glomerular filtration rate (GFR) from serum creatinine in children is the Bedside Keyes equation. It is less accurate in patients with extremes of muscle mass, restriction of dietary protein, ingestion of creatine, extra-renal metabolism of creatinine, or treatment with medications that affect renal tubular creatinine secretion. Performed By: #### B MP3, HEMOG #### [place] [address], [place] GFR/1.73 sq M.predicted among blacks MDRD (S/P/Bld) [Vol rate/Area] mL/min/{1.73_m2} Normal >60 [facility] Comment on above: Performed By: #### B MP3, HEMOG #### [facility] [address] [place], [place] Glucose [Mass/Vol] 146 mg/dL High 70-100 [facility] Comment on above: Performed By: #### B MP3, HEMOG #### [place] [address], [place] Urea nitrogen [Mass/Vol] 18 mg/dL Normal 9-20 [facility] Comment on above: Performed By: #### B MP3, HEMOG #### [facility] [address], [place] Chloride [Moles/Vol] 99 mmol/L Normal 98-107 [facility] Comment on above: Performed By: #### B MP3, HEMOG #### [facility] [address], [place] Potassium [Moles/Vol] 4.1 mmol/L Normal 3.5-5.1 [facility] Comment on above: Performed By: #### B MP3, HEMOG #### [facility] [address], [place] Sodium [Moles/Vol] 133 mmol/L Low 135-145 [facility] Comment on above: Performed By: #### B MP3, HEMOG #### [facility] [address], [place] Complete Urinalysison 2021 Appearance (U) Clear Normal Clear [facility] Comment on above: Result Comment: . Performed By: #### C UA2 #### [place] [address], [place] Bacteria Few Abnormal Negative [facility] Comment on above: Result Comment: . Performed By: #### C UA2 #### [place] [address], [place] Bilirubin,Urine Negative Normal Negative [facility] Comment on above: Result Comment: . Performed By: #### C UA2 #### [place] [address], [place] Cast, Hyaline 0 - 2 Abnormal Negative [facility] Comment on above: Result Comment: . Performed By: #### C UA2 #### [place] [address], [place] Color (U) Yellow Normal Lt. Yellow [facility] Comment on above: Result Comment: . Performed By: #### C UA2 #### [place] [address], [place] Glucose Ql (U) Normal Normal Normal (<70) [facility] Comment on above: Result Comment: . Performed By: #### C UA2 #### [place] [address], [place] Ketone,Urine 80 mg/dL Abnormal Negative [facility] Comment on above: Result Comment: . Performed By: #### C UA2 #### [place] [address], [place] Leukocytes,Urine Negative Normal Negative [facility] Comment on above: Result Comment: . Performed By: #### C UA2 #### [place] [address], [place] Mucous Threads Few Normal Negative [facility] Comment on above: Result Comment: . Performed By: #### C UA2 #### [place] [address], [place] Nitrites,Urine Negative Normal Negative [facility] Comment on above: Result Comment: . Performed By: #### C UA2 #### [place] [address], [place] Occult Blood,Urine Negative Normal Negative [facility] Comment on above: Result Comment: . Performed By: #### C UA2 #### [place] [address], [place] pH,Urine 5.5 Normal 5.0-8.0 [facility] Comment on above: Result Comment: . Performed By: #### C UA2 #### [place] [address], [place] Protein (U) [Mass/Vol] 10 mg/dL Abnormal Negative [facility] Comment on above: Result Comment: . Performed By: #### C UA2 #### [place] [address], [place] RBC LM.HPF (Urine sed) [#/Area] Negative Normal 0-2 [facility] Comment on above: Result Comment: . Performed By: #### C UA2 #### [place] [address] [place] [address] Specific [place],Urine 1.022 Normal 1.005 - 1.030 [facility] Comment on above: Result Comment: . Performed By: #### C UA2 #### [facility] [address], [place] Squamous Epithelial 3 - 5 Normal 3-5 [facility] Comment on above: Result Comment: . Performed By: #### C UA2 #### [facility] [address], [place] Urobilinogen,Urine Normal Normal Normal (0-1) [facility] Comment on above: Result Comment: . Performed By: #### C UA2 #### [facility] [address], [place] WBC, Urine 3 - 5 Normal 0-5 [facility] Comment on above: Result Comment: . Performed By: #### C UA2 #### [place] [address], [place] Glucose,Bedsideon 05-29-2021 Glucose [Mass/Vol] 174 mg/dL High 70-100 [facility] Comment on above: Result Comment: Test performed by glucose meter. Results may be 10%-15% lower than serum/plasma values. (CLIA ID [id number]) Performed By: #### H GHCT, BMP3 #### [place] [address], [place] Glucose [Mass/Vol] 142 mg/dL High 70-100 [facility] Comment on above: Result Comment: Test performed by glucose meter. Results may be 10%-15% lower than serum/plasma values. (CLIA ID [id number]) Performed By: #### H GHCT, BMP3 #### [facility] [address], [place] Glucose [Mass/Vol] 137 mg/dL High 70-100 [facility] Comment on above: Result Comment: Test performed by glucose meter. Results may be 10%-15% lower than serum/plasma values. (CLIA ID [id number]) Performed By: #### B GLU #### [facility] [address], [place] Hemogramon 05-29-2021 Erythrocyte distribution width (RBC) [Ratio] 14.1 % Normal 11.5-14.5 [facility] Comment on above: Performed By: #### B MP3, HEMOG #### [place] [address], [place] Hematocrit (Bld) [Volume fraction] 41.9 % Normal 35.0-47.0 [facility] Comment on above: Performed By: #### B MP3, HEMOG #### [place] [address], [place] Hemoglobin (Bld) [Mass/Vol] 13.8 g/dL Normal 11.7-16.0 [facility] Comment on above: Performed By: #### B MP3, HEMOG #### [place] [address], [place] MCH (RBC) [Entitic mass] 29.6 pg Normal 26.0-34.0 [facility] Comment on above: Performed By: #### B MP3, HEMOG #### [place] [address], [place] MCHC 32.9 % Normal 32.0-36.0 [facility] Comment on above: Performed By: #### B MP3, HEMOG #### [place] [address], [place] MCV (RBC) [Entitic vol] 89.7 fL Normal 79.0-98.0 [facility] Comment on above: Performed By: #### B MP3, HEMOG #### [place] [address], [place] Platelet mean volume (Bld) [Entitic vol] 9.1 fL Normal 7.4-10.4 [facility] Comment on above: Performed By: #### B MP3, HEMOG #### [place] [address], [place] Platelets (Bld) [#/Vol] 198 10*3/uL Normal 140-440 [facility] Comment on above: Performed By: #### B MP3, HEMOG #### [facility] [address] [place] [address] RBC (Bld) [#/Vol] 4.67 10*6/uL Normal 3.80-5.20 [facility] Comment on above: Performed By: #### B MP3, HEMOG #### [facility] [address] [place] [address] WBC (Bld) [#/Vol] 13.3 10*3/uL High 3.6-10.7 [facility] Comment on above: Performed By: #### B MP3, HEMOG #### [facility] [address] [place] [address] RF UGI w/o KUB w/ or w/o Del ay Flmon 05-29-2021 RF UGI w/o KUB w/ or w/o Delay Flm Patient Name: MELANIE BIRD Fluoroscopy ACCESSION EXAM DATE/TIME PROCEDURE ORDERING PROVIDER [id number] 05/29/2021 07:10 EDT RF UGI w/o KUB and w/ or [id number] -ROB LAWSON w/o Delay Flm CPT code 92537 Reason For Exam (RF UGI w/o KUB and w/ or w/o Delay Flm) s/p bariatric surgery Report GASTROGRAFIN UPPER GI SERIES CLINICAL INDICATION: S/P gastric bypass, postop, day one. Evaluate for leak. COMPARISON: None. FLUOROSCOPY TIME:0.20minutes. FLUOROSCOPIC SPOT IMAGES: 10 TECHNIQUE: Gastrografin was administered per ordering physician request. FINDINGS: Preliminary image demonstrates postsurgical changes consistent with gastric bypass surgery Mary-en-Y configuration. Gastrografin was administered orally to the patient in the upright position. The esophagus is of normal course and caliber with no evidence of perforation or extravasation. The gastrojejunostomy is patent with no sign of extravasation or obstruction. The contrast empties readily from the gastric pouch into the jejunum. A 10 minute delayed image was obtained, which demonstrates the jejunal jejunostomy and shows free flow of contrast beyond the metallic clips that identify the anastomosis. There is no sign of obstruction. IMPRESSION: Post-op changes consistent with gastric bypass surgery. No sign of extravasation or obstruction. Fluoroscopy Report Report Dictated on Final Dictated: 05/29/2021 7:19 am Dictating Physician: MD GUZMAN JONATHAN R Signed Date and Time: 05/29/2021 8:08 am Signed by: MD GUZMAN JONATHAN R Transcribed Date and Time: 05/29/2021 7:21 Normal [facility] Basic Metabolic Panelon 05-16 Anion gap [Moles/Vol] 12 mmol/L Normal -13 [facility] Comment on above: Performed By: #### H GHCT, BMP3 #### [place] [address], [place] Calcium [Mass/Vol] 9.5 mg/dL Normal 8.4-10.4 [facility] Comment on above: Performed By: #### H GHCT, BMP3 #### [place] [address] [place], [place] CO2 [Moles/Vol] 23 mmol/L Normal 22-30 [facility] Comment on above: Performed By: #### H GHCT, BMP3 #### [place] [address], [place] Creatinine [Mass/Vol] 0.74 mg/dL Normal 0.52-1.25 [facility] Comment on above: Performed By: #### H GHCT, BMP3 #### [facility] [address], [place] GFR/1.73 sq M.predicted among blacks MDRD (S/P/Bld) [Vol rate/Area] mL/min/{1.73_m2} Normal >60 [facility] Comment on above: Performed By: #### H GHCT, BMP3 #### [place] [address], [place] GFR/1.73 sq M.predicted among non-blacks MDRD (S/P/Bld) [Vol rate/Area] 85.5 mL/min/{1.73_m2} Normal >60 [facility] Comment on above: Result Comment: KDIG O guidelines provide the following GFR categories: Stage GFR(ml/min/1.73 m2) Terms G1 >=90 Normal or high G2 60-89 Mildly decreased* G3a 45-59 Mildly to moderately decreased G3b 30-44 Moderately to severely decreased G4 15-29 Severely decreased G5 <15 Kidney failure *Relative to young adult level. In the absence of evidence of kidney damage, neither GFR category G1 nor G2 fulfill the criteria for CKD. The CKD-EPI equation is validated in individuals 18 years of age and older. Currently the best equation for estimating glomerular filtration rate (GFR) from serum creatinine in children is the Bedside Keyes equation. It is less accurate in patients with extremes of muscle mass, restriction of dietary protein, ingestion of creatine, extra-renal metabolism of creatinine, or treatment with medications that affect renal tubular creatinine secretion. Performed By: #### H BOBBY BMP3 #### [place] [address], [place] Glucose [Mass/Vol] 266 mg/dL High 70-100 [facility] Comment on above: Performed By: #### H GHCT BMP3 #### [place] [address] [place], [place] Urea nitrogen [Mass/Vol] 20 mg/dL Normal 9-20 [facility] Comment on above: Performed By: #### H CHILOCT BMP3 #### [place] [address] [place] [address] Chloride [Moles/Vol] 95 mmol/L Low 98-107 [facility] Comment on above: Performed By: #### H GHCT BMP3 #### [facility] [address] [place] [address] Potassium [Moles/Vol] 3.6 mmol/L Normal 3.5-5.1 [facility] Comment on above: Performed By: #### H GHCT, BMP3 #### [place] [address] [place] [address] Sodium [Moles/Vol] 130 mmol/L Low 135-145 [facility] Comment on above: Performed By: #### H GHCT, BMP3 #### [place] [address] [place] [address] Glucose,Bedsideon 05-28-2021 Glucose [Mass/Vol] 204 mg/dL High 70-100 [facility] Comment on above: Result Comment: Test performed by glucose meter. Results may be 10%-15% lower than serum/plasma values. (CLIA ID [id number]) Performed By: #### H GHCT, BMP3 #### [facility] [address] [place] [address] Glucose [Mass/Vol] 188 mg/dL High 70-100 [facility] Comment on above: Result Comment: Test performed by glucose meter. Results may be 10%-15% lower than serum/plasma values. (CLIA ID [id number]) Performed By: #### B GLU #### [facility] [address] [place] [address] Glucose [Mass/Vol] 222 mg/dL High 70-100 [facility] Comment on above: Result Comment: Test performed by glucose meter. Results may be 10%-15% lower than serum/plasma values. (CLIA ID [id number]) Performed By: #### B GLU #### [facility] [address] [place] [address] Glucose [Mass/Vol] 248 mg/dL High 70100 [facility] Comment on above: Result Comment: Test performed by glucose meter. Results may be 10%-15% lower than serum/plasma values. (CLIA ID [id number]) Performed By: #### B GLU #### [facility] [address] [place] [address] Glucose [Mass/Vol] 124 mg/dL High 70-100 [facility] Comment on above: Result Comment: Test performed by glucose meter. Results may be 10%-15% lower than serum/plasma values. (CLIA ID [id number]) Performed By: #### B GLU #### [facility] [address] [place] [address] Hemoglobin AND Hematocriton 05-28-2021 Hematocrit (Bld) [Volume fraction] 44.8 % Normal 35.0-47.0 [facility] Comment on above: Performed By: #### H GHCT, JF3 #### [facility] [address] [place] [address] Hemoglobin (Bld) [Mass/Vol] 14.7 g/dL Normal 11.7-16.0 [facility] Comment on above: Performed By: #### H BOBBY, JF3 #### [facility] [address] [place] [address] Op Noteon 05-28-2021 Op Note Patient: Melanie mattson Date of : 1955 Service Date: 05/28/21 PROCEDURE: 1. Laparoscopic Mary-en-Y Gastric Bypass 2. Laparoscopic Liver Biopsy 3. Esophagogastrojejunoscopy PREOPERATIVE DIAGNOSES: Patient Active Problem List Diagnosis ? Morbid obesity due to excess calories (HCC) ? ARIANA (obstructive sleep apnea) ? Diabetes (HCC) ? High cholesterol ? Back pain ? H. pylori infection ? Hiatal hernia POSTOPERATIVE DIAGNOSES: Same ANESTHESIA: General SURGEON: Jasbir Iyer MD CLEANERS: Rob Lawson MD, Who was asked to assist with this advanced laparoscopic case as there was no qualified operating room surgical technologist immediately available to assist. FLUIDS: 1500 cc crystalloid ESTIMATED BLOOD LOSS: 50 cc URINE OUTPUT: Not recorded. PREOPERATIVE MEDICATIONS: Ancef INDICATIONS FOR PROCEDURE: The patient is a 66 y.o. female with morbid obesity and a Body mass index is 47.89 kg/m?.. She has completed medical risk stratification and is scheduled for Laparoscopic Mary-en-Y gastric bypass and laparoscopic liver biopsy. CONSENT: The patient was seen and evaluated in the office setting where the procedure was explained to the patient and all questions were answered. An informed consent discussion was held between Dr. Iyer and the patient. Viable alternatives to the proposed procedure, including but not limited to, medical observation under the care of a physician, exercise programs and other weight reductive operative procedures were explained to the patient. Risks to the proposed procedure, including but not limited to hemorrhage requiring transfusion, infection, nerve injury, conversion to open, anastomotic disruption, anastomotic stricture, pneumonia, pulmonary embolus, airway complications, and were explained to the patient. Additionally, we discussed that sometimes a gastric bypass cannot be safely completed due to intraoperative factors and a conversion to a sleeve gastrectomy or complete of a definitive surgical procedure altogether may be necessary. The patient understands the above alternatives and risks and has electively chosen laparoscopic gastric bypass with mary-en-y reconstruction and wishes to proceed. TECHNIQUE: The patient was taken to the operating room and placed in the supine position. After successful induction of general endotracheal anesthesia by the anesthesia department, an orogastric tube was placed to decompress the stomach. The patient was placed in the split leg lithotomy position and care was taken to pad the exposed extremities. The patient's abdomen was prepped and draped in the normal sterile fashion with chlorhexidine which was allowed to dry for three minutes prior to draping. A 5 mm optical entry trocar was used to enter the left upper quadrant at [place] point. We then placed a 5 mm trocar supraumbilically, 5 mm trocar in the left lower quadrant and a 5 mm trocar in the right lower quadrant, all under direct visualization. We then placed a 12 mm trocar in the right mid abdomen under direct visualization. A stab incision was then made in the sub xyphoid region and a liver retractor was inserted and the liver gently retracted towards the anterior abdominal wall. The patient had a diagnosis of GERD and a preoperatively identified paraesophageal hiatal hernia during EGD and planned repair of this hernia was undertaken. The pars flacida was entered and the right annette identified. Careful dissection was undertaken between the right annette and the esophagus up towards the anterior portion of the hiatus. The phrenoesophageal ligament was carefully taken down and the left and right crurae of the diaphragm were dissected further mobilizing into the chest. I then mobilized posteriorly behind the esophagus revealing the left annette. At this point, I had full 360 degree mobilization of the esophagus with dissection into the thoracic cavity. We proceeded with closure of the crural defect using 0 ethibond suture in interupted fashion, placed laparoscopically and tied down using a laparoscopic knot pusher. I was able to pass a 5 mm instrument between the esophagus and the cruroplasty. The hiatal hernia repair was considered complete. We began with creating the small gastric pouch. The lesser sac was entered at the pars flacida and the posterior aspect of the stomach was visualized and there were no adhesions. At this point we released our retraction on the stomach and measured five to seven centimeters from the angle of His along the lesser curvature. We utilized the perigastric technique to enter the lesser sac, sparing the gastric vessel branches and the descending nerve branch. We confirmed that there were no foreign objects in the stomach with the anesthesia team. A 60-mm ALISSA stapler with a green load was used to transect across the stomach in a horizontal fashion. We then placed the 40 Greek suction bougie into the pouch for (more content not included)... Normal [facility] Surgical Pathologyon 022 Surgical Pathology [id number] [facility] PATHOLOGY AND LABORATORY MEDICINE [address] [place] [address] FINAL SURGICAL PATHOLOGY REPORT NAME: MELANIE BIRD N [id number] : 1955 66 Y F BILLING NO.: [id number] LOCATION: [place] [address] PROCEDURE 05/28/2021 DATE: SURGEON: JASBIR IYER MD RECEIVED 05/28/2021 DATE: ATTENDING: JASBIR IYER MD REPORT DATE: 05/29/2021 COPIES TO: DIAGNOSIS: LIVER, WEDGE BIOPSY - MILD STEATOSIS (GRADE 1) Comment: Sections demonstrate an intact liver architecture with mild macrovesicular steatosis occupying approximately 10% of the liver volume. There is no evidence of ballooning degeneration, lobular activity, or Julio Cesar's hyaline. The portal tracts contain all normal structures without any significant inflammatory infiltrate. Special stains (iron and trichrome) are negative for increased iron storage and fibrosis, respectively. JAW/JAW Signature> ZULMA DANIELS M.D. CLINICAL INFORMATION: Morbid obesity SPECIMEN: LIVER NEEDLE OR WEDGE BIOPSY, MEDICAL GROSS DESCRIPTION: Received in formalin labeled liver biopsy are two irregularly-shaped fragments of red-brown soft tissue each measuring approximately 0.4 x 0.4 x 0.2 cm. Both submitted in one cassette. BSC/KMS1 Disclaimer: The following statement applies to all immunohistochemistry, in situ hybridization, molecular studies, and immunofluorescence testing. The use of one or more reagents in the above tests is regulated as an analyte specific reagent (ASR). These tests were developed and their performance characteristics determined by the clinical laboratories of [facility]. They have not been cleared by the US Food and Drug Administration (FDA). The FDA has determined that such clearance or approval is not necessary. All the above immunostains were performed on paraffin embedded tissue. Appropriate positive and negative controls (where applicable) were run in parallel with the patient's specimen; these controls showed expected staining pattern, with acceptable intensity of staining. Immunohistochemical assays have not been validated on decalcified tissues. Results should be interpreted with caution given the raised possibility of false negativity on decalcified specimens. Professional Performing Location: [address] [address]. DEPARTMENT OF PATHOLOGY AND LABORATORY MEDICINE [place], [place] [address] [id number] Normal [facility] Albuminon 04-29-2021 Albumin [Mass/Vol] 4.4 g/dL 3.5 - 5.0 g/dL [facility] Albumin, Serumon 04-29-2021 Albumin [Mass/Vol] 4.4 g/dL Normal 3.5-5.0 [facility] Comment on above: Performed By: #### B GLU #### [facility] [address] [place] [address] Basic Metabolic Panelon 04-15 Anion gap [Moles/Vol] 8 mmol/L Normal 3-13 [facility] Comment on above: Performed By: #### B GLU #### [facility] [address], [place] Calcium [Mass/Vol] 9.9 mg/dL Normal 8.4-10.4 [facility] Comment on above: Performed By: #### B GLU #### [facility] [address], [place] CO2 [Moles/Vol] 33 mmol/L High 22-30 [facility] Comment on above: Performed By: #### B GLU #### [facility] [address], [place] Creatinine [Mass/Vol] 0.72 mg/dL Normal 0.52-1.25 [facility] Comment on above: Performed By: #### B GLU #### [facility] [address], [place] GFR/1.73 sq M.predicted among blacks MDRD (S/P/Bld) [Vol rate/Area] mL/min/{1.73_m2} Normal >60 [facility] Comment on above: Performed By: #### B GLU #### [facility] [address], [place] GFR/1.73 sq M.predicted among non-blacks MDRD (S/P/Bld) [Vol rate/Area] 88.4 mL/min/{1.73_m2} Normal >60 [facility] Comment on above: Result Comment: KDIG O guidelines provide the following GFR categories: Stage GFR(ml/min/1.73 m2) Terms G1 >=90 Normal or high G2 60-89 Mildly decreased* G3a 45-59 Mildly to moderately decreased G3b 30-44 Moderately to severely decreased G4 15-29 Severely decreased G5 <15 Kidney failure *Relative to young adult level. In the absence of evidence of kidney damage, neither GFR category G1 nor G2 fulfill the criteria for CKD. The CKD-EPI equation is validated in individuals 18 years of age and older. Currently the best equation for estimating glomerular filtration rate (GFR) from serum creatinine in children is the Bedside Keyes equation. It is less accurate in patients with extremes of muscle mass, restriction of dietary protein, ingestion of creatine, extra-renal metabolism of creatinine, or treatment with medications that affect renal tubular creatinine secretion. Performed By: #### B GLU #### [facility] [address], [place] Glucose [Mass/Vol] 162 mg/dL High 70-100 [facility] Comment on above: Performed By: #### B GLU #### [place] [address], [place] Urea nitrogen [Mass/Vol] 31 mg/dL High 9-20 [facility] Comment on above: Performed By: #### B GLU #### [place] [address], [place] Potassium [Moles/Vol] 4.3 mmol/L Normal 3.5-5.1 [facility] Comment on above: Performed By: #### B GLU #### [place] [address], [place] Sodium [Moles/Vol] 138 mmol/L Normal 135-145 [facility] Comment on above: Performed By: #### B GLU #### [place] [address], [place] Chloride [Moles/Vol] 97 mmol/L Low 98-107 [facility] Comment on above: Performed By: #### B GLU #### [place] [address], [place] Anion gap [Moles/Vol] 8 mmol/L 3 - 13 mmol/L [facility] Calcium [Mass/Vol] 9.9 mg/dL 8.4 - 10. 4 mg/dL [facility] Chloride [Moles/Vol] 97 mmol/L Low 98 - 10 7 mmol/L [facility] CO2 [Moles/Vol] 33 mmol/L High 22 - 30 mmol/L [facility] Creatinine [Mass/Vol] 0.72 mg/dL 0.52 - 1.25 mg/dL [facility] EGFR IF NonAfrican [place] Islander 88.4 mL/min >60 [facility] Comment on above: KDIGO guidelines pro vide the following GFR categories: Stage GFR(ml/min/1.73 m2) Terms G1 >=90 Normal or high G2 60-89 Mildly decreased* G3a 45-59 Mildly to moderately decreased G3b 30-44 Moderately to severely decreased G4 15-29 Severely decreased G5 <15 Kidney failure *Relative to young adult level. In the absence of evidence of kidney damage, neither GFR category G1 nor G2 fulfill the criteria for CKD. The CKD-EPI equation is validated in individuals 18 years of age and older. Currently the best equation for estimating glomerular filtration rate (GFR) from serum creatinine in children is the Bedside Keyes equation. It is less accurate in patients with extremes of muscle mass, restriction of dietary protein, ingestion of creatine, extra-renal metabolism of creatinine, or treatment with medications that affect renal tubular creatinine secretion. GFR/1.73 sq M.predicted among blacks MDRD (S/P/Bld) [Vol rate/Area] mL/min/{1.73_m2} >60 mL/min [facility] Glucose [Mass/Vol] 162 mg/dL High 70 - 100 mg/dL [facility] Interpretation and review of laboratory results Abnormal [facility] Potassium [Moles/Vol] 4.3 mmol/L 3.5 - 5.1 mmol/L [facility] Sodium [Moles/Vol] 138 mmol/L 135 - 145 mmol/L [facility] Urea nitrogen (BldV) [Mass/Vol] 31 mg/dL High 9 - 20 mg/dL [facility] CBCon 04-29-2021 Hematocrit (Bld) [Volume fraction] 44.1 % 35.0 - 47.0 % [facility] Hemoglobin.gastrointe stinal spec 1 Ql (Stl) 14.7 g/dL 11.7 - 16.0 g/dL [facility] MCH (RBC) [Entitic mass] 30.4 pg 26.0 - 34.0 pg [facility] MCHC (RBC) [Mass/Vol] 33.4 % 32.0 - 36.0 % [facility] MCV (RBC) [Entitic vol] 91.0 fL 79.0 - 98.0 fL [facility] Platelet distribution width (Bld) [Ratio] 14.5 % 11.5 - 14.5 % [facility] Platelet mean volume (Bld) [Entitic vol] 9.1 fL 7.4 - 10.4 fL [facility] Platelets (Bld) [#/Vol] 215 10*3/uL 140 - 440 10*3/uL [facility] RBC (Bld) [#/Vol] 4.85 10*6/uL 3.80 - 5.2 0 10*6/uL [facility] WBC (Bld) [#/Vol] 7.4 10*3/uL 3.6 - 10.7 10*3/uL [facility] Test Performed by [facility], [address] [place] [id number] [facility] CR Chest PA/LATon 04-29-2021 CR Chest PA/LAT Patient Name: MELANIE GOLDMAN Diagnostic Radiology ACCESSION EXAM DATE/TIME PROCEDURE ORDERING PROVIDER [id number] 04/29/2021 10:19 EDT CR Chest PA and LAT [id number] -JULIO CESAR JOHN CPT code 35589 Reason For Exam (CR Chest PA and LAT) PRE-OP Report CHEST, PA and LATERAL: INDICATION: Preop COMPARISON: No previous studies are available for comparison. PA and lateral views of the chest were obtained. The heart is normal in size. The mediastinal silhouette is normal. The lungs are clear. There are no effusions or infiltrates. There is no pleural thickening. The osseous structures are unremarkable. IMPRESSION: Negative chest. Report Dictated on Final Dictated: 04/29/2021 10:26 am Dictating Physician: DO RAY ALFRED Signed Date and Time: 04/29/2021 10:27 am Signed by: DO RAY ALFRED Transcribed Date and Time: 04/29/2021 10:26 Normal [facility] Hemoglobin A1Con 04-29-2021 Glucose [Mass/Vol] 183 mg/dL Normal [facility] Comment on above: Performed By: #### H GHCT, BMP3 #### [address] [address] HbA1c (Bld) [Mass fraction] 8.0 % Abnormal [facility] Comment on above: Result Comment: Norm al less than 5.7% Prediabetes 5.7% to 6.4% Diabetes 6.5% or higher --HgbA1C levels may not be accurate in patients who have renal disease, received recent blood transfusions, are anemic, or who have dyshemoglobinemia. Performed By: #### H BOBBY BMP3 #### [address] HbA1c (Bld) [Mass fraction] 8.0 % Abnormal [facility] Comment on above: Normal less than 5.7 % Prediabetes 5.7% to 6.4% Diabetes 6.5% or higher --HgbA1C levels may not be accurate in patients who have renal disease, received recent blood transfusions, are anemic, or who have dyshemoglobinemia. Interpretation and review of laboratory results Abnormal [facility] Magnesium [Mass/Vol] 183 mg/dL [facility] A Test Performed by [id number] [place] [address] LAB [facility] Hemogramon 04-29-2021 Erythrocyte distribution width (RBC) [Ratio] 14.5 % Normal 11.5-14.5 [facility] Comment on above: Performed By: #### H BOBBY BMP3 #### [address] Hematocrit (Bld) [Volume fraction] 44.1 % Normal 35.0-47.0 [facility] Comment on above: Performed By: #### H BOBBY BMP3 #### [address] Hemoglobin (Bld) [Mass/Vol] 14.7 g/dL Normal 11.7-16.0 [facility] Comment on above: Performed By: #### H BOBBY BMP3 #### [address] MCH (RBC) [Entitic mass] 30.4 pg Normal 26.0-34.0 [facility] Comment on above: Performed By: #### H BOBBY BMP3 #### [address] MCHC 33.4 % Normal 32.0-36.0 [facility] Comment on above: Performed By: #### H GHCT BMP3 #### [address] MCV (RBC) [Entitic vol] 91.0 fL Normal 79.0-98.0 [facility] Comment on above: Performed By: #### H GHCT BMP3 #### [address] Platelet mean volume (Bld) [Entitic vol] 9.1 fL Normal 7.4-10.4 [facility] Comment on above: Performed By: #### H GHCT BMP3 #### [address] Platelets (Bld) [#/Vol] 215 10*3/uL Normal 140-440 [facility] Comment on above: Performed By: #### H GHCT BMP3 #### [address] RBC (Bld) [#/Vol] 4.85 10*6/uL Normal 3.80-5.20 [facility] Comment on above: Performed By: #### H GHCT BMP3 #### [address] WBC (Bld) [#/Vol] 7.4 10*3/uL Normal 3.6-10.7 [facility] Comment on above: Performed By: #### H GHCT BMP3 #### [address] No Panel Informationon 04-29 Test Performed by [id number] [place] [address] LAB [facility] XR CHEST (2 VW)on 04-29-2021 Patient Name: MELANIE GOLDMAN Diagnostic Radiology ACCESSION EXAM DATE/TIME PROCEDURE ORDERING PROVIDER [id number] 04/29/2021 10:19 EDT CR Chest PA & LAT [id number] -JULIO CESAR JOHN CPT code 16739 Reason For Exam (CR Chest PA & LAT) PRE-OP Report CHEST, PA & LATERAL: INDICATION: Preop COMPARISON: No previous studies are available for comparison. PA and lateral views of the chest were obtained. The heart is normal in size. The mediastinal silhouette is normal. The lungs are clear. There are no effusions or infiltrates. There is no pleural thickening. The osseous structures are unremarkable. IMPRESSION: Negative chest. Report Dictated on --- Final --- Dictated: 04/29/2021 10:26 am Dictating Physician: DO RAY ALFRED Signed Date and Time: 04/29/2021 10:27 am Signed by: DO RAY ALFRED Transcribed Date and Time: 04/29/2021 10:26 [facility] Rah Caraballo DO - 04/29/2021 [id number]iology ACCESSION EXAM DATE/TIME PROCEDURE ORDERING PROVIDER [id number] 04/29/2021 10:19 EDT CR Chest PA & LAT [id number] CESAR GALVAN CPT code 41943 Reason For Exam (CR Chest PA & LAT) PRE-OP Report CHEST, PA & LATERAL: INDICATION: Preop COMPARISON: No previous studies are available for comparison. PA and lateral views of the chest were obtained. The heart is normal in size. The mediastinal silhouette is normal. The lungs are clear. There are no effusions or infiltrates. There is no pleural thickening. The osseous structures are unremarkable. IMPRESSION: Negative chest. Report Dictated on --- Final --- Dictated: 04/29/2021 10:26 am Dictating Physician: DO RAY ALFRED Signed Date and Time: 04/29/2021 10:27 am Signed by: DO RAY ALFRED Transcribed Date and Time: 04/29/2021 10:26 [facility] Work Phone: Radiology Study observation (narrative) [facility] Work Phone: XR CHEST (2 VW)Ordered By: Coleman Ray on 04-29-2021 [facility] Work Phone: H. PYLORI STOOL ANTIGEN (EIA )on 10-24-2020 H. PYLORI STOOL ANTIGEN (EIA) H. PYLORI STOOL ANTIGEN (EIA) --> Status: F Negative. No H. pylori stool antigen detected. Normal [facility] Comment on above: Order Comment: ORDER WAS CANCELLED 10/23/20 13:34, Wrong test ordered. 10/23/2020 13:34. Performed By: #### H PYAG #### [facility] [address] [place] [address] XR Knee - right 4 Viewson Addendum by Provider , [facility] [place] on 09/27/2020 3:28 PM EDT * * *Final Report* * * DATE OF EXAM: Sep 27 2020 2:46PM WOX 5203 - XR KNEE 4V AP/PA BOTH+LAT/TOY RT / PROCEDURE REASON: Fall, initial encounter * * * * Physician Interpretation * * * * Right knee radiographs HISTORY: 65 years old Clinical information: Fall, initial encounter Anterior right knee pain following a fall x 1 week ago TECHNIQUE: Images: XR KNEE 4V AP/PA BOTH+LAT/TOY RT Comparison: May 30, 2020. RESULT: Findings: Narrowing of medial compartment joint space. Marginal osteophytes extending off the tibial plateaus, lateral femoral condyle, and posterior aspect of the patella. No fracture or dislocation. No joint effusion. No soft tissue abnormality identified. IMPRESSION: Osteoarthrosis of the knee. Machine Ceramic Coater: PSCB Transcribe Date/Time: Sep 27 2020 3:24P Dictated by : ZULMA RIOS MD This examination was interpreted and the report reviewed and electronically signed by: ZULMA RIOS MD on Sep 27 2020 3:28PM EST [facility] Radiology Study observation (narrative) [facility] XR Knee - right 4 ViewsOrder ed By: [facility] Provider on 09-27-2020 [facility] ENDOSCOPY REPORTOrdered B y: 3m Scanning on 09-03-2020 [facility] Work Phone: Surgical Pathologyon [address] [phone] [facility] PATHOLOGY AND LABORATORY MEDICINE [address] [place] [address] Fax - FINAL SURGICAL PATHOLOGY REPORT NAME: MELANIE BIRD BILLY [id number] : 1955 65 Y F BILLING NO.: [id number] LOCATION: [facility] PROCEDURE 09/03/2020 DATE: SURGEON: JASBIR IYER MD RECEIVED 09/03/2020 DATE: ATTENDING: JASBIR IYER MD REPORT DATE: 09/05/2020 COPIES TO: DIAGNOSIS: STOMACH, ANTRUM, BIOPSY: - CHRONIC ACTIVE GASTRITIS WITH PROMINENT LYMPHOPLASMACYTIC INFILTRATE. - POSITIVE FOR H. PYLORI BY H&E STAIN. - POSITIVE FOR INTESTINAL METAPLASIA; NEGATIVE FOR DYSPLASIA. / Signature> AUGN DALEY CLINICAL INFORMATION: Heartburn SPECIMEN: GASTRIC BIOPSY GROSS DESCRIPTION: Received in formalin labeled antrum, rule out H. pylori is one irregularly-shaped segment of pink-vincent soft tissue measuring 0.5 x 0.4 x 0.1 cm. Submitted in one cassette. BSC/KMS1 Disclaimer: The following statement applies to all immunohistochemistry, in situ hybridization, molecular studies, and immunofluorescence testing. The use of one or more reagents in the above tests is regulated as an analyte specific reagent (ASR). These tests were developed and their performance characteristics determined by the clinical laboratories of [facility]. They have not been cleared by the US Food and Drug Administration (FDA). The FDA has determined that such clearance or approval is not necessary. All the above immunostains were performed on paraffin embedded tissue. Appropriate positive and negative controls (where applicable) were run in parallel with the patient's specimen; these controls showed expected staining pattern, with acceptable intensity of staining. Immunohistochemical assays have not been validated on decalcified tissues. Results should be interpreted with caution given the raised possibility of false negativity on decalcified specimens. Case reviewed at [address] [address]. DEPARTMENT OF PATHOLOGY AND LABORATORY MEDICINE [place], [place] [address] [id number] Normal [facility] No Panel Information [facility] Vital Signs Date Time Vital Sign Value Performing Clinician Facility 09-11-2024 09:090400 Body mass index (BMI) [Ratio] 30.73 kg/m2 Inna 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 Work Phone: [facility] 09-11-2024 09:09-0400 Body weight 81.19 kg 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 Work Phone: [facility] 09-11-2024 09:09-0400 Diastolic blood pressure 68 mm[Hg] 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 Work Phone: [facility] 09-11-2024 09:09-0400 Heart rate 72 /min 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 Work Phone: [facility] 09-11-2024 09:09-0400 Respiratory rate 16 /min Inna 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 Work Phone: [facility] 09-11-2024 09:09-0400 SaO2% (BldA) [Mass fraction] 97 % Inna 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 Work Phone: [facility] 09-11-2024 09:09-0400 Systolic blood pressure 118 mm[Hg] Inna 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 Work Phone: [facility] 05-15-2024 12:50-0400 Body mass index (BMI) [Ratio] 31.24 kg/m2 Inna 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 Work Phone: [facility] 05-15-2024 12:50-0400 Body weight 82.56 kg Inna 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 Work Phone: [facility] 05-15-2024 12:50-0400 Diastolic blood pressure 68 mm[Hg] Inna 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 Work Phone: [facility] 05-15-2024 12:50-0400 Heart rate 74 /min Inna 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 Work Phone: [facility] 05-15-2024 12:50-0400 Respiratory rate 16 /min Inna 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 Work Phone: [facility] 05-15-2024 12:50-0400 SaO2% (BldA) [Mass fraction] 96 % Inna 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 Work Phone: [facility] 05-15-2024 12:50-0400 Systolic blood pressure 108 mm[Hg] Inna 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 Work Phone: [facility] 05-01-2024 15:24-0400 Body mass index (BMI) [Ratio] 31.27 kg/m2 Modesta Daley MD Work Phone: [facility] 05-01-2024 15:24-0400 Body weight 82.64 kg Modesta Daley MD Work Phone: [facility] 05-01-2024 15:24-0400 Diastolic blood pressure 78 mm[Hg] Modesta Daley MD Work Phone: [facility] 05-01-2024 15:24-0400 Heart rate 80 /min Modesta Daley MD Work Phone: [facility] 05-01-2024 15:24-0400 Respiratory rate 16 /min Modesta Daley MD Work Phone: [facility] 05-01-2024 15:24-0400 SaO2% (BldA) [Mass fraction] 97 % Modesta Daley MD Work Phone: [facility] 05-01-2024 15:24-0400 Systolic blood pressure 117 mm[Hg] Modesta Daley MD Work Phone: [facility] 01-20-2024 09:09-0500 Body mass index (BMI) [Ratio] 31.93 kg/m2 Inna 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 Work Phone: [facility] 01-20-2024 09:09-0500 Body weight 84.37 kg Inna 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 Work Phone: [facility] 01-20-2024 09:09-0500 Diastolic blood pressure 68 mm[Hg] Inna 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 Work Phone: [facility] 01-20-2024 09:09-0500 Heart rate 72 /min Inna 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 Work Phone: [facility] 01-20-2024 09:09-0500 Respiratory rate 16 /min Inna 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 Work Phone: [facility] 01-20-2024 09:09-0500 SaO2% (BldA) [Mass fraction] 96 % Inna 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 Work Phone: [facility] 01-20-2024 09:09-0500 Systolic blood pressure 112 mm[Hg] Inna 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 Work Phone: [facility] 07-15-2023 09:40-0400 Body mass index (BMI) [Ratio] 31.76 kg/m2 Inna 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 Work Phone: [facility] 07-15-2023 09:40-0400 Body weight 83.92 kg Inna 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 Work Phone: [facility] 07-15-2023 09:40-0400 Diastolic blood pressure 72 mm[Hg] Inna 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 Work Phone: [facility] 07-15-2023 09:40-0400 Heart rate 74 /min Inna 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 Work Phone: [facility] 07-15-2023 09:40-0400 Respiratory rate 16 /min Inna 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 Work Phone: [facility] 07-15-2023 09:40-0400 SaO2% (BldA) [Mass fraction] 96 % Inna 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 Work Phone: [facility] 07-15-2023 09:40-0400 Systolic blood pressure 118 mm[Hg] Inna 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 Work Phone: [facility] 04-23-2023 10:58-0500 Body height 162.6 cm Shawanda May MD Work Phone: [facility] 04-23-2023 10:58-0500 Body weight 86.64 kg Shawanda May MD Work Phone: [facility] 04-23-2023 10:58-0500 Diastolic blood pressure 70 mm[Hg] Shawanda May MD Work Phone: [facility] 04-23-2023 10:58-0500 Heart rate 72 /min Shawanda May MD Work Phone: [facility] 04-23-2023 10:58-0500 Respiratory rate 16 /min Shawanda May MD Work Phone: [facility] 04-23-2023 10:58-0500 SaO2% (BldA) [Mass fraction] 94 % Shawanda May MD Work Phone: [facility] 04-23-2023 10:58-0500 Systolic blood pressure 100 mm[Hg] Shawanda May MD Work Phone: [facility] 04-15-2023 08:31-0500 Body weight 85.73 kg Inna 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 Work Phone: [facility] 04-15-2023 08:31-0500 Diastolic blood pressure 62 mm[Hg] Inna 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 Work Phone: [facility] 04-15-2023 08:31-0500 Heart rate 75 /min Inna 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 Work Phone: [facility] 04-15-2023 08:31-0500 Respiratory rate 16 /min Inna 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 Work Phone: [facility] 04-15-2023 08:31-0500 SaO2% (BldA) [Mass fraction] 96 % Inna 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 Work Phone: [facility] 04-15-2023 08:31-0500 Systolic blood pressure 112 mm[Hg] Inna 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 Work Phone: [facility] 01-13-2023 08:51-0500 Body weight 86.18 kg Inna 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 Work Phone: [facility] 01-13-2023 08:51-0500 Diastolic blood pressure 60 mm[Hg] Inna 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 Work Phone: [facility] 01-13-2023 08:51-0500 Heart rate 63 /min Inna 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 Work Phone: [facility] 01-13-2023 08:51-0500 Respiratory rate 16 /min Inna 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 Work Phone: [facility] 01-13-2023 08:51-0500 SaO2% (BldA) [Mass fraction] 96 % Inna 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 Work Phone: [facility] 01-13-2023 08:51-0500 Systolic blood pressure 112 mm[Hg] Inna 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 Work Phone: [facility] 12-18-2022 11:13-0400 Body height 162.6 cm Stephen Peterson MD Work Phone: [facility] 12-18-2022 11:13-0400 Body mass index (BMI) [Ratio] 32.82 kg/m2 Stephen Peterson MD Work Phone: [facility] 12-18-2022 11:13-0400 Body weight 86.73 kg Stephen Peterson MD Work Phone: [facility] 12-18-2022 11:13-0400 Diastolic blood pressure 72 mm[Hg] Stephen Peterson MD Work Phone: [facility] 12-18-2022 11:13-0400 Heart rate 70 /min Stephen Peterson MD Work Phone: [facility] 12-18-2022 11:13-0400 Systolic blood pressure 108 mm[Hg] Stephen Peterson MD Work Phone: [facility] 10-12-2022 08:54-0400 Body weight 84.37 kg Inna 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 Work Phone: [facility] 10-12-2022 08:54-0400 Diastolic blood pressure 62 mm[Hg] Inna 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 Work Phone: [facility] 10-12-2022 08:54-0400 Heart rate 83 /min Inna 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 Work Phone: [facility] 10-12-2022 08:54-0400 Respiratory rate 16 /min Inna 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 Work Phone: [facility] 10-12-2022 08:54-0400 SaO2% (BldA) [Mass fraction] 95 % Inna 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 Work Phone: [facility] 10-12-2022 08:54-0400 Systolic blood pressure 114 mm[Hg] Nina 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 Work Phone: [facility] 09-14-2022 09:56-0400 Body height 162.6 cm Shawanda May MD Work Phone: [facility] 09-14-2022 09:56-0400 Body weight 87.54 kg Shawanda May MD Work Phone: [facility] 09-14-2022 09:56-0400 Diastolic blood pressure 58 mm[Hg] Shawanda May MD Work Phone: [facility] 09-14-2022 09:56-0400 Heart rate 68 /min Shawanda May MD Work Phone: [facility] 09-14-2022 09:56-0400 Respiratory rate 16 /min Shawanda May MD Work Phone: [facility] 09-14-2022 09:56-0400 SaO2% (BldA) [Mass fraction] 94 % Shawanda May MD Work Phone: [facility] 09-14-2022 09:56-0400 Systolic blood pressure 110 mm[Hg] Shawanda May MD Work Phone: [facility] 09-14-2022 09:21-0400 Body height 162.6 cm Pulm Wstr Work Phone: [facility] 09-14-2022 09:21-0400 Body weight 87.54 kg Pulm Wstr Work Phone: [facility] 09-14-2022 09:21-0400 Heart rate 69 /min Pulm Wstr Work Phone: [facility] 09-14-2022 09:21-0400 Respiratory rate 14 /min Pulm Wstr Work Phone: [facility] 09-14-2022 09:21-0400 SaO2% (BldA) [Mass fraction] 95 % Pulm Wstr Work Phone: [facility] 08-13-2022 10:07-0400 Body temperature 98.1 [degF] Kiarra Fanta 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 Work Phone: [facility] 08-13-2022 10:07-0400 Body weight 88.72 kg Kiarra Varina 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 Work Phone: [facility] 08-13-2022 10:07-0400 Diastolic blood pressure 62 mm[Hg] Kiarra Varina 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 Work Phone: [facility] 08-13-2022 10:07-0400 Systolic blood pressure 94 mm[Hg] Kiarra Fanta 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 Work Phone: [facility] 07-31-2022 11:00-0400 Body temperature 98.9 [degF] [facility] 07-31-2022 11:00-0400 Diastolic blood pressure 74 mm[Hg] [facility] 07-31-2022 11:00-0400 Heart rate 67 /min [facility] 07-31-2022 11:00-0400 Respiratory rate 16 /min [facility] 07-31-2022 11:00-0400 SaO2% (BldA) [Mass fraction] 93 % [facility] 07-31-2022 11:00-0400 Systolic blood pressure 132 mm[Hg] [facility] 07-31-2022 10:15-0400 Inhaled oxygen flow rate 2 L/min [facility] 07-31-2022 06:41-0400 Body height 162.56 cm [facility] 07-31-2022 06:41-0400 Body mass index (BMI) [Ratio] 33.5 kg/m2 [facility] 07-31-2022 06:41-0400 Body weight 88.8 kg [facility] 07-21-2022 14:34-0400 Body weight 88 kg Chyna Delacruz MD Work Phone: [facility] 07-21-2022 14:34-0400 Diastolic blood pressure 60 mm[Hg] Chyna Delacruz MD Work Phone: [facility] 07-21-2022 14:34-0400 Systolic blood pressure 120 mm[Hg] Chyna Delacruz MD Work Phone: [facility] 06-11-2022 08:48-0400 Body weight 91.17 kg Inna 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 Work Phone: [facility] 06-11-2022 08:48-0400 Diastolic blood pressure 68 mm[Hg] Inna 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 Work Phone: [facility] 06-11-2022 08:48-0400 Heart rate 68 /min Inna 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 Work Phone: [facility] 06-11-2022 08:48-0400 Respiratory rate 16 /min Inna 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 Work Phone: [facility] 06-11-2022 08:48-0400 Systolic blood pressure 122 mm[Hg] Inna 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 Work Phone: [facility] 05-26-2022 09:39-0400 Body height 162.6 cm Jasbir Iyer MD Work Phone: [facility] [place] Comment on above: [facility] 05-26-2022 09:39-0400 Body mass index (BMI) [Ratio] 34.3 kg/m2 Jasbir Iyer MD Work Phone: [place] 05-26-2022 09:39-0400 Body temperature 97.39 [degF] Jasbir Iyer MD Work Phone: [place] 05-26-2022 09:39-0400 Body weight 90.63 kg Jasbir Iyer MD Work Phone: [place] 05-26-2022 09:39-0400 Diastolic blood pressure 64 mm[Hg] Jasbir Iyer MD Work Phone: [place] 05-26-2022 09:39-0400 Heart rate 71 /min Jasbir Iyer MD Work Phone: [place] 05-26-2022 09:39-0400 Respiratory rate 16 /min Jasbir Iyer MD Work Phone: [facility] 05-26-2022 09:39-0400 Systolic blood pressure 103 mm[Hg] Jasbir Iyer MD Work Phone: [facility] 03-13-2022 08:43-0500 Body weight 94.35 kg Inna 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 Work Phone: [facility] 03-13-2022 08:43-0500 Diastolic blood pressure 70 mm[Hg] Inna 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 Work Phone: [facility] 03-13-2022 08:43-0500 Heart rate 64 /min Inna 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 Work Phone: [facility] 03-13-2022 08:43-0500 Respiratory rate 16 /min Inna 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 Work Phone: [facility] 03-13-2022 08:43-0500 Systolic blood pressure 118 mm[Hg] Inna 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 Work Phone: [facility] 03-10-2022 12:48-0500 Body weight 95.25 kg Shawanda May MD Work Phone: [facility] 03-10-2022 12:48-0500 Diastolic blood pressure 72 mm[Hg] Shawanda May MD Work Phone: [facility] 03-10-2022 12:48-0500 Heart rate 63 /min Shawanda aMy MD Work Phone: [facility] 03-10-2022 12:48-0500 Respiratory rate 19 /min Shawanda May MD Work Phone: [facility] 03-10-2022 12:48-0500 SaO2% (BldA) [Mass fraction] 92 % Shawanda May MD Work Phone: [facility] 03-10-2022 12:48-0500 Systolic blood pressure 118 mm[Hg] Shawanda May MD Work Phone: [facility] 02-02-2022 11:00-0500 Diastolic blood pressure 82 mm[Hg] Dominique Mcarthurba CERTIFIED NURSING ASSISTANT Work Phone: [facility] 02-02-2022 11:00-0500 Heart rate 66 /min Dominique Mcarthurba CERTIFIED NURSING ASSISTANT Work Phone: [facility] 02-02-2022 11:00-0500 SaO2% (BldA) [Mass fraction] 94 % Dominique Mcarthurba CERTIFIED NURSING ASSISTANT Work Phone: [facility] 02-02-2022 11:00-0500 Systolic blood pressure 136 mm[Hg] Dominique Mcarthurba CERTIFIED NURSING ASSISTANT Work Phone: [facility] 01-21-2022 14:33-0500 Body height 162.6 cm Pacc 1 Work Phone: [facility] 01-21-2022 14:33-0500 Body temperature 96.6 [degF] Pacc 1 Work Phone: [facility] 01-21-2022 14:33-0500 Body weight 98.43 kg Pacc 1 Work Phone: [facility] 01-21-2022 14:33-0500 Diastolic blood pressure 62 mm[Hg] Pacc 1 Work Phone: [facility] 01-21-2022 14:33-0500 Heart rate 78 /min Pacc 1 Work Phone: [facility] 01-21-2022 14:33-0500 Respiratory rate 18 /min Pacc 1 Work Phone: [facility] 01-21-2022 14:33-0500 SaO2% (BldA) [Mass fraction] 94 % Pacc 1 Work Phone: [facility] 01-21-2022 14:33-0500 Systolic blood pressure 114 mm[Hg] Pacc 1 Work Phone: [facility] 12-15-2021 14:04-0400 Body weight 99.34 kg Chyna Delacruz MD Work Phone: [facility] 12-15-2021 14:04-0400 Diastolic blood pressure 64 mm[Hg] Chyna Delacruz MD Work Phone: [facility] 12-15-2021 14:04-0400 Systolic blood pressure 104 mm[Hg] Chyna Delacruz MD Work Phone: [facility] 12-11-2021 10:53-0400 Body temperature 97.59 [degF] Modesta Daley MD Work Phone: [facility] 12-11-2021 10:53-0400 Body weight 99.34 kg Modesta Daley MD Work Phone: [facility] 12-11-2021 10:53-0400 Diastolic blood pressure 60 mm[Hg] Modesta Daley MD Work Phone: [facility] 12-11-2021 10:53-0400 Heart rate 75 /min Modesta Daley MD Work Phone: [facility] 12-11-2021 10:53-0400 Respiratory rate 18 /min Modesta Daley MD Work Phone: [facility] 12-11-2021 10:53-0400 SaO2% (BldA) [Mass fraction] 97 % Modesta Daley MD Work Phone: [facility] 12-11-2021 10:53-0400 Systolic blood pressure 100 mm[Hg] Modesta Daley MD Work Phone: [facility] 11-11-2021 10:57-0400 Body temperature 97.59 [degF] Katey Kim CERTIFIED NURSING ASSISTANT Work Phone: [facility] 11-11-2021 10:57-0400 Diastolic blood pressure 72 mm[Hg] Katey Kim CERTIFIED NURSING ASSISTANT Work Phone: [facility] 11-11-2021 10:57-0400 Heart rate 76 /min Katey Kim CERTIFIED NURSING ASSISTANT Work Phone: [facility] 11-11-2021 10:57-0400 Respiratory rate 18 /min Katey Kim CERTIFIED NURSING ASSISTANT Work Phone: [facility] 11-11-2021 10:57-0400 SaO2% (BldA) [Mass fraction] 92 % Katey Kim CERTIFIED NURSING ASSISTANT Work Phone: [facility] 11-11-2021 10:57-0400 Systolic blood pressure 116 mm[Hg] Katey Kim CERTIFIED NURSING ASSISTANT Work Phone: [facility] 11-07-2021 14:00-0400 Diastolic blood pressure 60 mm[Hg] Jemima Louise-Mouna PT Work Phone: [facility] 11-07-2021 14:00-0400 Heart rate 84 /min Jemima Brunner PT Work Phone: [facility] 11-07-2021 14:00-0400 Respiratory rate 16 /min Jemima Brunner PT Work Phone: [facility] 11-07-2021 14:00-0400 SaO2% (BldA) [Mass fraction] 94 % Jemima Brunner PT Work Phone: [facility] 11-07-2021 14:00-0400 Systolic blood pressure 126 mm[Hg] Jemima Louise-Mouna PT Work Phone: [facility] 11-07-2021 13:10-0400 Body temperature 97.81 [degF] Jemima Louise-Freire PT Work Phone: [facility] 11-05-2021 11:09-0400 Body temperature 98.01 [degF] Katey Kim CERTIFIED NURSING ASSISTANT Work Phone: [facility] 11-05-2021 11:09-0400 Diastolic blood pressure 76 mm[Hg] Katey Kim CERTIFIED NURSING ASSISTANT Work Phone: [facility] 11-05-2021 11:09-0400 Heart rate 88 /min Katey Kim CERTIFIED NURSING ASSISTANT Work Phone: [facility] 11-05-2021 11:09-0400 Respiratory rate 18 /min Katey Kim CERTIFIED NURSING ASSISTANT Work Phone: [facility] 11-05-2021 11:09-0400 SaO2% (BldA) [Mass fraction] 93 % Katey Kim CERTIFIED NURSING ASSISTANT Work Phone: [facility] 11-05-2021 11:09-0400 Systolic blood pressure 118 mm[Hg] Katey Kim CERTIFIED NURSING ASSISTANT Work Phone: [facility] 11-03-2021 16:00-0400 Diastolic blood pressure 60 mm[Hg] Jemima HalwilliamRei PT Work Phone: [facility] 11-03-2021 16:00-0400 Heart rate 88 /min Jemima HalwilliamRei PT Work Phone: [facility] 11-03-2021 16:00-0400 SaO2% (BldA) [Mass fraction] 96 % Jemimaalejandra Brunner PT Work Phone: [facility] 11-03-2021 16:00-0400 Systolic blood pressure 114 mm[Hg] Jemimaalejandra Brunner PT Work Phone: [facility] 11-03-2021 15:20-0400 Body temperature 98.1 [degF] Jemimaalejandra Brunner PT Work Phone: [facility] 11-03-2021 15:20-0400 Respiratory rate 16 /min Jemima Brunner PT Work Phone: [facility] 10-31-2021 15:12-0400 Diastolic blood pressure 72 mm[Hg] Trav Ryanfener PT Work Phone: [facility] 10-31-2021 15:12-0400 Heart rate 92 /min Trav Rufener PT Work Phone: [facility] 10-31-2021 15:12-0400 Respiratory rate 16 /min Trav Rufener PT Work Phone: [facility] 10-31-2021 15:12-0400 SaO2% (BldA) [Mass fraction] 96 % Trav Rufener PT Work Phone: [facility] 10-31-2021 15:12-0400 Systolic blood pressure 132 mm[Hg] Trav Amparoer PT Work Phone: [facility] 10-31-2021 14:45-0400 Body temperature 96.49 [degF] Trav Connorfener PT Work Phone: [facility] 10-13-2021 09:05-0400 Body height 162.6 cm Pacc 1 Work Phone: [facility] 10-13-2021 09:05-0400 Body temperature 96.91 [degF] Pacc 1 Work Phone: [facility] 10-13-2021 09:05-0400 Body weight 106.14 kg Pacc 1 Work Phone: [facility] 10-13-2021 09:05-0400 Diastolic blood pressure 52 mm[Hg] Pacc 1 Work Phone: [facility] 10-13-2021 09:05-0400 Heart rate 79 /min Pacc 1 Work Phone: [facility] 10-13-2021 09:05-0400 Respiratory rate 18 /min Pacc 1 Work Phone: [facility] 10-13-2021 09:05-0400 SaO2% (BldA) [Mass fraction] 92 % Pacc 1 Work Phone: [facility] 10-13-2021 09:05-0400 Systolic blood pressure 96 mm[Hg] Pacc 1 Work Phone: [facility] 09-15-2021 09:14-0400 Body height 162.6 cm Viet Johnson MD Work Phone: [facility] 09-15-2021 09:14-0400 Body weight 107.96 kg Viet Johnson MD Work Phone: [facility] 08-11-2021 14:16-0400 Body weight 111.17 kg Modesta Daley MD Work Phone: [facility] 08-11-2021 14:16-0400 Diastolic blood pressure 62 mm[Hg] Modesta Daley MD Work Phone: [facility] 08-11-2021 14:16-0400 Heart rate 79 /min Modesta Daley MD Work Phone: [facility] 08-11-2021 14:16-0400 Respiratory rate 18 /min Modesta Daley MD Work Phone: [facility] 08-11-2021 14:16-0400 SaO2% (BldA) [Mass fraction] 92 % Modesta Daley MD Work Phone: [facility] 08-11-2021 14:16-0400 Systolic blood pressure 110 mm[Hg] Modesta Daley MD Work Phone: [facility] 06-04-2021 11:11-0400 Body height 162.6 cm Modesta Daley MD Work Phone: [facility] 06-04-2021 11:11-0400 Body temperature 97.2 [degF] Modesta Daley MD Work Phone: [facility] 06-04-2021 11:11-0400 Body weight 124.29 kg Modesta Daley MD Work Phone: [facility] 06-04-2021 11:11-0400 Diastolic blood pressure 60 mm[Hg] Modesta Daley MD Work Phone: [facility] 06-04-2021 11:11-0400 Heart rate 79 /min Modesta Daley MD Work Phone: [facility] 06-04-2021 11:11-0400 Respiratory rate 16 /min Modesta Daley MD Work Phone: [facility] 06-04-2021 11:11-0400 SaO2% (BldA) [Mass fraction] 93 % Modesta Daley MD Work Phone: [facility] 06-04-2021 11:11-0400 Systolic blood pressure 114 mm[Hg] Modesta Daley MD Work Phone: [facility] 05-08-2021 09:41-0400 Body weight 130.18 kg Modesta Daley MD Work Phone: [facility] 05-08-2021 09:41-0400 Diastolic blood pressure 76 mm[Hg] Modesta Daley MD Work Phone: [facility] 05-08-2021 09:41-0400 Heart rate 78 /min Modesta Daley MD Work Phone: [facility] 05-08-2021 09:41-0400 Respiratory rate 18 /min Modesta Daley MD Work Phone: [facility] 05-08-2021 09:41-0400 SaO2% (BldA) [Mass fraction] 92 % Modesta Daley MD Work Phone: [facility] 05-08-2021 09:41-0400 Systolic blood pressure 130 mm[Hg] Modesta Daley MD Work Phone: [facility] 09-03-2020 14:09-0400 Diastolic blood pressure 88 mm[Hg] Jasbir Iyer MD Work Phone: [facility] Work Phone: 09-03-2020 14:09-0400 Heart rate 74 /min Jasbir Iyer MD Work Phone: [facility] Work Phone: 09-03-2020 14:09-0400 Respiratory rate 20 /min Jasbir Iyer MD Work Phone: [facility] Work Phone: 09-03-2020 14:09-0400 SaO2% (BldA) [Mass fraction] 93 % Jasbir Iyer MD Work Phone: [facility] Work Phone: 09-03-2020 14:09-0400 Systolic blood pressure 117 mm[Hg] Jasbir Iyer MD Work Phone: [facility] Work Phone: 09-03-2020 13:40-0400 Body temperature 97 [degF] Jasbir Iyer MD Work Phone: [facility] Work Phone: Encounters Encounter Date Encounter Type Care Provider Facility Start: 12-12-2024 End: 12-12-2024 ambulatory [facility] Facility:[facility] Start: 12-12-2024 Patient encounter procedure MODESTA DALEY [facility] Start: 12-11-2024 End: 12-11-2024 ambulatory [facility] Facility:[facility] Start: 10-19-2024 End: 10-20-2024 Refill Modesta Daley MD Work Phone: [facility] [place] Comment on above: Refill Request Start: 09-14-2024 End: 09-18-2024 Follow-up encounter Inna Small APRN.CNP Work Phone: [facility] Comment on above: Results Start: 09-11-2024 End: 09-11-2024 [facility] Facility:[facility] Start: 09-11-2024 End: 09-11-2024 Office outpatient visit 25 minutes Inna Small APRN.CNP Work Phone: [facility] Comment on above: Diabetes mellitus ty pe 2 (HCC) (Primary Dx); Muscle spasm; Electrical shock sensation; Parkinson's disease, unspecified whether dyskinesia present, unspecified whether manifestations fluctuate (HCC); Insomnia, unspecified type; ARIANA (obstructive sleep apnea) Start: 08-22-2024 End: 08-24-2024 Refill Modesta Daley MD Work Phone: [facility] [place] Comment on above: Refill Request Start: 07-28-2024 End: 07-28-2024 Refill Modesta Daley MD Work Phone: [facility] Comment on above: Refill Request Start: 07-18-2024 End: 07-18-2024 Refill Modesta Daley MD Work Phone: [facility] [place] Comment on above: Refill Request Start: 07-12-2024 End: 07-12-2024 Telephone encounter Modesta Daley MD Work Phone: [facility] [place] Comment on above: Orders (Lift chair) Start: 06-20-2024 End: 06-21-2024 Refill Modesta Daley MD Work Phone: [facility] [place] Comment on above: Refill Request Start: 06-05-2024 End: 06-05-2024 Refill Modesta Daley MD Work Phone: [facility] [place] Comment on above: Refill Request Start: 05-15-2024 End: 05-15-2024 ambulatory INNA SMALL Facility:[facility] Start: 05-15-2024 End: 05-15-2024 Patient encounter procedure Inna Small 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 Work Phone: [facility] [place] Comment on above: Hearing loss of left ear, unspecified hearing loss type (Primary Dx); Impacted cerumen of left ear Start: 05-01-2024 End: 05-01-2024 [facility] Facility:[facility] Start: 05-01-2024 End: 05-01-2024 Office outpatient visit 25 minutes Modesta Daley MD Work Phone: [facility] [place] Comment on above: Ambulatory dysfuncti on (Primary Dx); Screening for depression; Parkinson's disease, unspecified whether dyskinesia present, unspecified whether manifestations fluctuate (HCC); Tardive dyskinesia; Diabetes mellitus type 2 (HCC); Upper extremity weakness; Primary insomnia; Decreased hearing, left; Impacted cerumen of left ear Start: 04-27-2024 End: 04-27-2024 Refill Modesta Daley MD Work Phone: [facility] [place] Comment on above: Refill Request Start: 04-26-2024 End: 06-26-2024 Follow-up encounter Inna Small 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 Work Phone: [facility] [place] Start: 04-24-2024 End: 04-24-2024 ambulatory [facility] Facility:[facility] Start: 04-24-2024 End: 04-24-2024 Subsequent hospital visit by physician Screen Mammo [facility] Comment on above: Asymptomatic menopau se [Z78.0] Start: 03-30-2024 End: 03-30-2024 Refill Modesta Daley MD Work Phone: [facility] [place] Comment on above: Refill Request Start: 03-28-2024 End: 03-28-2024 Patient encounter procedure Robynjabari Elena OTR/L Work Phone: [facility] Comment on above: Decreased activities of daily living (ADL) (Primary Dx); Parkinson's disease, unspecified whether dyskinesia present, unspecified whether manifestations fluctuate (HCC); Tardive dyskinesia Start: 03-28-2024 End: 03-28-2024 ambulatory Robynjabari Elena OTR/L Work Phone: [facility] Start: 03-10-2024 End: 03-10-2024 [facility] Facility:[facility] Start: 03-09-2024 End: 03-21-2024 Telephone encounter Modesta Daley MD Work Phone: [facility] Comment on above: Orders; Patient Ques tion Start: 03-08-2024 End: 03-08-2024 Refill Modesta Daley MD Work Phone: [facility] [place] Comment on above: Refill Request Start: 01-20-2024 End: 01-20-2024 [facility] Facility:[facility] Start: 01-20-2024 End: 01-20-2024 Patient encounter procedure [facility] 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 Work Phone: [facility] [place] Comment on above: Diabetes mellitus ty pe 2 (HCC) (Primary Dx); Intolerance to heat; Sweating abnormality; Other fatigue; Parkinson's disease, unspecified whether dyskinesia present, unspecified whether manifestations fluctuate (HCC); Encounter for immunization; Encounter for screening mammogram for breast cancer; Asymptomatic menopause Start: 01-11-2024 End: 01-11-2024 ambulatory MODESTA DALEY Facility:[facility] Start: 01-05-2024 End: 01-05-2024 Refill Modesta Daley MD Work Phone: Internal Medicine [place] Comment on above: Refill Request Start: 01-04-2024 End: 01-07-2024 ambulatory Modesta Daley MD Work Phone: [facility] Start: 12-15-2023 End: 12-16-2023 Refill Modesta Daley MD Work Phone: Internal Medicine [place] Comment on above: Refill Request Start: 12-10-2023 End: 12-16-2023 Refill Modesta Daley MD Work Phone: Internal Medicine [place] Comment on above: Refill Request Start: 12-09-2023 End: 05-09-2024 Telephone encounter Modesta Daley MD Work Phone: Internal Medicine [place] Comment on above: Orders (Passport ser vices) Start: 11-10-2023 End: 11-10-2023 Refill Modesta Daley MD Work Phone: Internal Medicine [place] Comment on above: Refill Request Start: 10-25-2023 End: 10-25-2023 Patient encounter procedure Kelli Davis PA-C Work Phone: Orthopaedics Comment on above: Shoulder impingement (Primary Dx); Chronic left shoulder pain Start: 09-21-2023 Refill Modesta Doss Work Phone: Internal Medicine [place] Comment on above: Refill Request Start: 09-09-2023 Telephone encounter Modesta champagne MD Work Phone: Internal Medicine [place] Comment on above: Medication Request ( Antibiotics) Start: 09-01-2023 Refill Modesta Doss Work Phone: Internal Medicine [place] Comment on above: Refill Request Start: 08-13-2023 Refill Modesta Doss Work Phone: Internal Medicine [place] Comment on above: Refill Request Start: 07-15-2023 End: 07-15-2023 Subsequent hospital visit by physician Perla [facility] [place] Work Phone: Radiology Comment on above: Chronic left shoulde r pain [M25.512, G89.29] Start: 07-15-2023 End: 07-15-2023 Patient encounter procedure Inna Small 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 Work Phone: Internal Medicine [place] Comment on above: Chronic left shoulde r pain (Primary Dx); Diabetes mellitus type 2 (HCC); Parkinson's disease, unspecified whether dyskinesia present, unspecified whether manifestations fluctuate (HCC); Insomnia, unspecified type; ARIANA (obstructive sleep apnea); Hyperlipidemia with target LDL less than 70; Depression with anxiety Start: 06-25-2023 Refill Modesta Doss Work Phone: Internal Medicine [place] Comment on above: Refill Request Start: 05-27-2023 Refill Inna Small APRN .HOURLY SHIFT MANAGER Work Phone: Internal Medicine [place] Comment on above: Refill Request Start: 05-10-2023 Refill Modesta Doss Work Phone: Internal Medicine [place] Comment on above: Refill Request Start: 05-06-2023 Refill Modesta Doss Work Phone: Internal Medicine [place] Comment on above: Refill Request Start: 04-26-2023 ambulatory Angi Crawford MA [facility] [place] Comment on above: Population Health [facility] Outreach ([facility] OUTREACH/) Start: 04-23-2023 Telephone encounter Shawanda May MD Work Phone: Pulmonary Medicine Comment on above: Orders Start: 04-23-2023 End: 04-23-2023 Patient encounter procedure Shawanda May MD Work Phone: Pulmonary Medicine Comment on above: Nocturnal hypoxemia (Primary Dx); Restrictive lung disease Start: 04-22-2023 Documentation procedure Mammog casandra Coordinator [facility] Start: 04-22-2023 Letter encounter Mammography Coordinator [facility] Department Start: 04-22-2023 End: 04-22-2023 Subsequent hospital visit by physician Screen Mammo [facility] Mammogram Comment on above: Encounter for screen ing mammogram for malignant neoplasm of breast [Z12.31] Start: 04-20-2023 Telephone encounter Beronica MONTAÑO Navigation Start: 04-19-2023 Telephone encounter Modesta champagne MD Work Phone: Internal Medicine [place] Comment on above: Insurance Authorizat ion Start: 04-15-2023 Telephone encounter Beronica Faust Start: 04-15-2023 End: 04-15-2023 Patient encounter procedure Inna Small 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 Work Phone: Internal Medicine [place] Comment on above: Depression with anxi ety (Primary Dx); Parkinson's disease, unspecified whether dyskinesia present, unspecified whether manifestations fluctuate (HCC); Diabetes mellitus type 2 (HCC); Encounter for screening mammogram for malignant neoplasm of breast; Pain of left upper extremity Start: 04-02-2023 Refill Inna Small APRN .HOURLY SHIFT MANAGER Work Phone: Internal Medicine [place] Comment on above: Refill Request Start: 01-25-2023 End: 01-25-2023 ambulatory Donis Harris [facility] Work Phone: [facility] Comment on above: Diabetes mellitus ty pe 2 (HCC) (Primary Dx); Uncontrolled type 2 diabetes mellitus with hyperglycemia (HCC) Start: 01-25-2023 End: 01-25-2023 Telemedicine consultation with patient Donis Harris [facility] Work Phone: [facility] Start: 01-13-2023 End: 01-13-2023 Patient encounter procedure Inna Small 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 Work Phone: Internal Medicine [place] Comment on above: Diabetes mellitus ty pe 2 (HCC) (Primary Dx); Bone anomaly; Parkinson's disease, unspecified whether dyskinesia present, unspecified whether manifestations fluctuate Refill Request Start: 12-18-2022 End: 12-18-2022 ambulatory STEPHENFELICIANO PETERSON [facility] Start: 12-18-2022 End: 12-18-2022 Office outpatient visit 25 minutes Stephen Peterson MD Work Phone: [facility] [place] Comment on above: 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); History of gastric bypass; Vitamin deficiency; Intestinal malabsorption, unspecified type; Type 2 diabetes mellitus without complication, with long-term current use of insulin ([facility]/HCC) (HCC); BMI 32.0-32.9,adult; Class 1 obesity with serious comorbidity and body mass index (BMI) of 32.0 to 32.9 in adult, unspecified obesity type; Abnormal zinc level in blood; Low serum total protein level Start: 12-15-2022 Telephone encounter Katerine Rahman fawad RD Work Phone: [facility] [place] Comment on above: Abnormal Lab (Low pr otein) Start: 12-10-2022 Refill Inna Small APRN, .CNP Work Phone: Internal Medicine [place] Comment on above: Refill Request; Refi ll Request Start: 12-07-2022 Refill Modesta Doss Work Phone: Internal Medicine [place] Comment on above: Refill Request Start: 12-02-2022 Telephone encounter Donis Mireille [facility] Work Phone: [facility] Comment on above: Appointment (Primary care Pharmacy No Show reschedule) Start: 11-16-2022 Telephone encounter Inna Small APRN.CNP Work Phone: Family Medicine [place] Comment on above: Results Start: 11-13-2022 End: 11-13-2022 ambulatory Hepatology A5 Work Phone: Gastroenterology Start: 11-13-2022 End: 11-13-2022 Patient encounter procedure Hepatology Procedures A5 Work Phone: [facility] Start: 11-11-2022 Telephone encounter Effie Capps PA-C Work Phone: Family Medicine [place] Comment on above: Medication Problem Start: 10-28-2022 Telephone encounter Inna Small 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 Work Phone: Internal Medicine [place] Comment on above: Liver ultrasound res ults Start: 10-22-2022 End: 10-22-2022 Subsequent hospital visit by physician [facility] 2 Work Phone: Radiology Comment on above: Elevated liver enzym es [R74.8] Start: 10-20-2022 Refill Modesta Doss Work Phone: Family Medicine [place] Comment on above: Refill Request Start: 10-12-2022 End: 10-12-2022 Patient encounter procedure Inna Small APRN.CNP Work Phone: Internal Medicine [place] Comment on above: Diabetes mellitus ty pe 2 (HCC) (Primary Dx); Tardive dyskinesia; RLS (restless legs syndrome); Parkinson's disease (HCC); Elevated liver enzymes; Irritable bowel syndrome with diarrhea; Depression with anxiety; Sleep-disordered breathing Start: 09-29-2022 Telephone encounter Inna Small 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 Work Phone: [facility] Comment on above: Lab Orders Start: 09-22-2022 Refill Modesta Doss Work Phone: Internal Medicine [place] Comment on above: Refill Request Start: 09-17-2022 Telephone encounter Tony López MD Work Phone: Neurology Comment on above: Orders Start: 09-14-2022 End: 09-14-2022 ambulatory Pulm Lab [facility] Work Phone: PULM LAB [facility] Comment on above: Spirometry Refill Request Start: 09-14-2022 Telephone encounter Tony López MD Work Phone: Neurology Comment on above: Letter Start: 09-14-2022 End: 09-14-2022 Patient encounter procedure Pulm Lab [facility] Work Phone: [facility] Comment on above: Sleep-disordered monika athing (Primary Dx); Nocturnal hypoxemia; Parkinson's disease (HCC) Start: 08-31-2022 Telephone encounter Effie Capps PA-C Work Phone: Internal Medicine [place] Comment on above: needs rx for new Dania re reader Start: 08-26-2022 Telephone encounter Aruna Rojas RD Work Phone: [facility] [place] Comment on above: Abnormal Lab (Protei n) Start: 08-13-2022 End: 08-13-2022 Patient encounter procedure Kiarra Jewell 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 Work Phone: OB/Gynecology Comment on above: S/P ovarian cystecto my (Primary Dx) Start: 08-10-2022 End: 08-10-2022 ambulatory Donis Harris RPbenito Work Phone: [facility] Comment on above: Diabetes mellitus ty pe 2 (HCC) (Primary Dx) Start: 08-10-2022 End: 08-10-2022 Telemedicine consultation with patient Donis Harris RPh Work Phone: [facility] Start: 08-03-2022 Telephone encounter Chyna Delacruz MD Work Phone: OB/Gynecology Comment on above: Pathology Report Start: 07-31-2022 End: 07-31-2022 ambulatory [facility] Facility:[facility] Start: 07-31-2022 End: 07-31-2022 Admission to same day surgery center [facility] Start: 07-31-2022 End: 07-31-2022 ambulatory [facility] Work Phone: Start: 07-29-2022 Refill Modesta Doss Work Phone: Internal Medicine [place] Comment on above: Refill Request Start: 07-27-2022 End: 07-27-2022 ambulatory Donis Harris [facility] Work Phone: Family [facility] Comment on above: Diabetes mellitus ty pe 2 (HCC) Start: 07-27-2022 End: 07-27-2022 Telemedicine consultation with patient Donis Harris RPh Work Phone: [facility] Start: 07-24-2022 End: 07-24-2022 ambulatory [facility] Facility:[facility] Start: 07-21-2022 End: 07-21-2022 Patient encounter procedure Chyna Delacruz MD Work Phone: OB/Gynecology Comment on above: Ovarian cyst, right (Primary Dx) Start: 07-15-2022 Telephone encounter Chyna Delacruz MD Work Phone: OB/Gynecology Comment on above: Schedule Surgery Start: 06-16-2022 Telephone encounter Tony López MD Work Phone: Neurology Comment on above: Appointment Reschedu led Results Start: 06-15-2022 End: 06-15-2022 ambulatory Ob Ultrasound Work Phone: OB/Gynecology Comment on above: FOOD EQUIPMENT SERVICE TECHNICIAN Ultrasound Start: 06-15-2022 End: 06-15-2022 Patient encounter procedure Network Field Engineer [place] [facility] Work Phone: [facility] Start: 06-12-2022 Telephone encounter Inna Small 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 Work Phone: Internal Medicine [place] Comment on above: Orders Start: 06-11-2022 End: 06-11-2022 Patient encounter procedure Inna Small 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 Work Phone: Internal Medicine [place] Comment on above: Diabetes mellitus ty pe 2 (HCC) (Primary Dx); Chronic diarrhea; Other fatigue Start: 06-05-2022 Refill Modesta Doss Work Phone: Internal Medicine [place] Comment on above: Refill Request Start: 05-28-2022 [facility] Work Phone: [facility] Comment on above: Blood sugar levels Start: 05-27-2022 Telephone encounter Donis Mireille [facility] Work Phone: [facility] Comment on above: Missed Appointment Start: 05-26-2022 End: 05-26-2022 ambulatory JASBIR IYER [facility] Start: 05-26-2022 End: 05-26-2022 Office outpatient visit 25 minutes Jasbir Iyer MD Work Phone: [facility] [place] Comment on above: ARIANA (obstructive sle ep apnea) (Primary Dx); Type 2 diabetes mellitus without complication, unspecified whether terminal block assembler insulin use (HCC); Intestinal malabsorption, unspecified type; Deficiency of multiple nutrient elements; High cholesterol; Class 1 obesity due to excess calories with serious comorbidity and body mass index (BMI) of 34.0 to 34.9 in adult Start: 05-19-2022 Telephone encounter Marcelle duffy RD Work Phone: [facility] [place] Comment on above: Abnormal Lab (Elevat ed H/H; high end normal Vitamin D) Start: 05-13-2022 End: 05-13-2022 ambulatory Donis Harris RP Work Phone: [facility] Comment on above: Diabetes mellitus ty pe 2 (HCC) (Primary Dx) Start: 05-13-2022 End: 05-13-2022 Telemedicine consultation with patient Donis Harris RPh Work Phone: [facility] Start: 05-08-2022 Refill Modesta Doss Work Phone: Internal Medicine [place] Comment on above: Refill Request Start: 05-07-2022 ambulatory Donis Harris [facility] Work Phone: [facility] Comment on above: Blood sugar levels Start: 05-01-2022 Telephone encounter Modesta champagne MD Work Phone: Internal Medicine [place] Comment on above: Insurance Authorizat ion Start: 04-29-2022 End: 04-29-2022 ambulatory Donis Harris [facility] Work Phone: [facility] Comment on above: Uncontrolled type 2 diabetes mellitus with hyperglycemia (HCC) (Primary Dx) Start: 04-29-2022 End: 04-29-2022 Telemedicine consultation with patient Donis Harris RP Work Phone: [facility] Start: 04-22-2022 ambulatory Donis Harris [facility] Work Phone: [facility] Comment on above: Insulin Start: 04-22-2022 Telephone encounter Modesta champagne MD Work Phone: Internal Medicine [place] Comment on above: Updated Medication Start: 04-16-2022 Documentation procedure [facility]og casandra [facility] Start: 04-16-2022 Letter encounter Mammography Coordinator [facility] Department Start: 04-15-2022 End: 04-15-2022 Subsequent hospital visit by physician Screen Mammo [facility] Mammogram Comment on above: Breast cancer screen ing by mammogram [Z12.31] Start: 04-13-2022 Telephone encounter Modesta champagne MD Work Phone: Internal Medicine [place] Comment on above: Dexcom sensor PA que stion Start: 04-09-2022 Refill Modesta Doss Work Phone: Internal Medicine [place] Comment on above: Refill Request Start: 04-08-2022 End: 04-08-2022 ambulatory Donis Harris [facility] Work Phone: [facility] Comment on above: Uncontrolled type 2 diabetes mellitus with hyperglycemia (HCC) (Primary Dx) Start: 04-08-2022 End: 04-08-2022 Telemedicine consultation with patient Donis Harris [facility] Work Phone: [facility] Start: 04-04-2022 ambulatory Inna Small APRN .HOURLY SHIFT MANAGER Work Phone: Internal Medicine [place] Comment on above: Injections Start: 04-01-2022 Telephone encounter Modesta champagne MD Work Phone: Internal Medicine [place] Comment on above: Insurance Authorizat ion Start: 03-30-2022 ambulatory Donis Harris [facility] Work Phone: [facility] Comment on above: Freestyle izabella Start: 03-15-2022 ambulatory Shawanda May MD Work Phone: Pulmonary Medicine Comment on above: Bloody nose Start: 03-13-2022 Telephone encounter Inna Small 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 Work Phone: Internal Medicine [place] Comment on above: Medication Clarifica tion Medication Update Start: 03-13-2022 End: 03-13-2022 Patient encounter procedure Inna Small 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 Work Phone: Internal Medicine [place] Comment on above: Diabetes mellitus ty pe 2 (HCC) (Primary Dx); S/P gastric sleeve procedure; Chronic diarrhea; Insomnia, unspecified type; ARIANA (obstructive sleep apnea); Breast cancer screening by mammogram Start: 03-12-2022 Refill Modesta Doss Work Phone: Internal Medicine [place] Comment on above: Refill Request Start: 03-10-2022 End: 03-10-2022 Patient encounter procedure Shawanda May MD Work Phone: Pulmonary Medicine Comment on above: Nocturnal hypoxemia (Primary Dx); SOB (shortness of breath); Class 2 obesity due to excess calories with body mass index (BMI) of 36.0 to 36.9 in adult, unspecified whether serious comorbidity present Start: 03-06-2022 Telephone encounter Modesta champagne MD Work Phone: Internal Medicine [place] Comment on above: Patient Question Abnormal Lab (Low pr otein, low zinc) Start: 03-03-2022 Telephone encounter Moedsta champagne MD Work Phone: Internal Medicine [place] Comment on above: Orders (lab orders) Start: 03-02-2022 Telephone encounter Tony López MD Work Phone: Neurology Comment on above: Results Start: 02-20-2022 Telephone encounter Modesta champagne MD Work Phone: Internal Medicine [place] Comment on above: Letter Request for H [employer]ap Parking Space Start: 02-13-2022 Refill Modesta Doss Work Phone: Internal Medicine [place] Comment on above: Refill Request Start: 02-12-2022 End: 02-12-2022 Patient encounter procedure [facility] Start: 02-12-2022 End: 02-13-2022 [facility] Work Phone: Start: 02-11-2022 Orders Only Kelli faye PA-C Work Phone: Orthopaedics Comment on above: Vertigo (Primary Dx) Start: 02-10-2022 ambulatory Viet Johnson MD Work Phone: Orthopaedics Comment on above: Vertigo problem Start: 02-04-2022 End: 02-04-2022 ambulatory Donis Harris [facility] Work Phone: [facility] Comment on above: Uncontrolled type 2 diabetes mellitus with hyperglycemia (HCC) (Primary Dx) Start: 02-04-2022 End: 02-04-2022 Telemedicine consultation with patient Donis Harris [facility] Work Phone: [facility] Start: 02-02-2022 End: 02-02-2022 Patient encounter procedure Kellidra Jelly WADE Work Phone: Orthopaedics Comment on above: Fibrosis of knee abdiel nt, left (Primary Dx); S/P total knee arthroplasty, left Start: 02-02-2022 End: 02-02-2022 ambulatory Dominique Colindres CERTIFIED NURSING ASSISTANT Work Phone: [facility] Physical Therapy Comment on above: Primary osteoarthrit is of left knee (Primary Dx) Start: 01-29-2022 End: 01-29-2022 ambulatory Curt Bardales PT [facility] Comment on above: Primary osteoarthrit is of left knee (Primary Dx) Start: 01-27-2022 Telephone encounter Tony López MD Work Phone: Neurology Comment on above: Polysomnogram Start: 01-26-2022 Telephone encounter Modesta champagne MD Work Phone: Internal Medicine [place] Comment on above: Trulicity 4.5 unavai lable Start: 01-22-2022 End: 01-22-2022 ambulatory Curt Bardales PT [facility] Comment on above: Primary osteoarthrit is of left knee (Primary Dx) Start: 01-21-2022 End: 01-21-2022 PAT [facility] 1 Work Phone: Pre Anesthesia Comment on above: Pre-operative examin ation (Primary Dx); Diabetes mellitus type 2 (HCC); Tardive dyskinesia; Swelling; S/P gastric sleeve procedure; RLS (restless legs syndrome); PTSD (post-traumatic stress disorder); Primary osteoarthritis of left knee; AIRANA (obstructive sleep apnea); Incontinence of feces, unspecified fecal incontinence type; Hypertonicity of bladder; Hyperlipidemia with target LDL less than 70; Gastroesophageal reflux disease, unspecified whether esophagitis present Start: 01-21-2022 End: 01-21-2022 Preprocedural examination done [facility] 1 Work Phone: Pre Anesthesia Start: 01-20-2022 Refill Modesta Doss Work Phone: Family Medicine [place] Comment on above: Refill Request Start: 01-19-2022 Telephone encounter Viet malcolm MD Work Phone: Orthopaedics Comment on above: Schedule Surgery Start: 01-19-2022 End: 01-19-2022 Patient encounter procedure Viet Johnson MD Work Phone: Orthopaedics Comment on above: S/P total knee arthr oplasty, left (Primary Dx); Fibrosis of left knee joint Start: 01-15-2022 End: 01-15-[address] [facility] Physical Therapy Comment on above: Primary osteoarthrit is of left knee (Primary Dx) Start: 01-12-2022 End: 01-12-[address] [facility] Physical Therapy Comment on above: Primary osteoarthrit is of left knee (Primary Dx) Start: 01-07-2022 End: 01-07-2022 ambulatory Dominique Mcarthurba CERTIFIED NURSING ASSISTANT Work Phone: [facility] Comment on above: Primary osteoarthrit is of left knee (Primary Dx) Start: 01-05-2022 End: 01-05-2022 ambulatory Dominique Mcarthuramada CERTIFIED NURSING ASSISTANT Work Phone: [facility] Therapy Comment on above: Primary osteoarthrit is of left knee (Primary Dx) Start: 01-01-2022 End: 01-01-[address] [facility] Physical Therapy Comment on above: Primary osteoarthrit is of left knee (Primary Dx) Start: 12-29-2021 End: 12-29-2021 ambulatory Donis Harris [facility] Work Phone: [facility] Comment on above: Uncontrolled type 2 diabetes mellitus with hyperglycemia (HCC) (Primary Dx) Primary osteoarthrit is of left knee (Primary Dx) Start: 12-29-2021 End: 12-29-2021 Telemedicine consultation with patient Donis Harris [facility] Work Phone: [facility] Start: 12-25-2021 End: 12-25-[address] [facility] Therapy Comment on above: Primary osteoarthrit is of left knee (Primary Dx) Start: 12-22-2021 Refill Viet Johnson MD Work Phone: Orthopaedics Comment on above: Refill Request Patient Question Start: 12-18-2021 End: 12-18-[address] [facility] Physical Therapy Comment on above: Primary osteoarthrit is of left knee (Primary Dx) Start: 12-15-2021 End: 12-15-2021 Patient encounter procedure Chyna Delacruz MD Work Phone: OB/Gynecology Comment on above: Cyst of right ovary (Primary Dx) Start: 12-15-2021 End: 12-15-[address] [facility] Physical Therapy Comment on above: Primary osteoarthrit is of left knee (Primary Dx) Start: 12-12-2021 [facility] Start: 12-11-2021 End: 12-11-2021 Patient encounter procedure Modesta Daley MD Work Phone: Internal Medicine [place] Comment on above: Diabetes mellitus ty pe 2 (HCC) (Primary Dx); Hyperlipidemia with target LDL less than 70; ARIANA (obstructive sleep apnea); Adnexal cyst Start: 12-10-2021 Refill Viet Johnson MD Work Phone: Orthopaedics Comment on above: Refill Request Start: 12-08-2021 End: 12-08-[address] [facility] Physical Therapy Comment on above: Primary osteoarthrit is of left knee (Primary Dx) Start: 12-08-2021 End: 12-08-2021 Patient encounter procedure Viet Johnson MD Work Phone: Orthopaedics Comment on above: S/P total knee arthr oplasty, left (Primary Dx) Start: 12-04-2021 End: 12-04-[address] [facility] Therapy Comment on above: Primary osteoarthrit is of left knee (Primary Dx) Start: 12-01-2021 End: 12-01-2021 ambulatory Donis Harris [facility] Work Phone: [facility] Comment on above: Uncontrolled type 2 diabetes mellitus with hyperglycemia (HCC) (Primary Dx) Start: 12-01-2021 End: 12-01-2021 Telemedicine consultation with patient Donis Harris [facility] Work Phone: [facility] Start: 11-26-2021 Refill Viet Johnson MD Work Phone: Orthopaedics Comment on above: Refill Request Start: 11-25-2021 ambulatory Modesta Irahetaihsan Doss Work Phone: Internal Medicine [facility] [place] Start: 11-24-2021 End: 11-24-2021 ambulatory Dominique Colindres CERTIFIED NURSING ASSISTANT Work Phone: [facility] Comment on above: Primary osteoarthrit is of left knee (Primary Dx) Start: 11-21-2021 End: 11-21-2021 ambulatory Curt Bardales PT [facility] Comment on above: Primary osteoarthrit is of left knee (Primary Dx) Refill Request Start: 11-19-2021 End: 11-19-2021 Subsequent hospital visit by physician [facility] (I-Stat) Work Phone: Cat Scan Comment on above: Other intra-abdomina l and pelvic swelling, mass and lump [R19.09] Start: 11-17-2021 Telephone encounter Viet malcolm MD Work Phone: Orthopaedics Comment on above: Patient Question Start: 11-13-2021 Refill Viet Johnson MD Work Phone: Orthopaedics Comment on above: Refill Request Start: 11-11-2021 Telephone encounter Chyna Delacruz MD Work Phone: OB/Gynecology Comment on above: Orders Start: 11-11-2021 End: 11-11-2021 Home visit Katey Alvarez CERTIFIED NURSING ASSISTANT Work Phone: [facility] Comment on above: CERTIFIED NURSING ASSISTANT ROUTINE Start: 11-07-2021 End: 11-07-2021 Home visit Jemima Brunner PT Work Phone: [facility] Comment on above: PT ROUTINE Start: 11-06-2021 Orders Only Viet Johnson MD Work Phone: Orthopaedics Comment on above: Primary osteoarthrit is of left knee (Primary Dx); S/P total knee arthroplasty, left Start: 11-05-2021 End: 11-05-2021 ambulatory Donis Harris [facility] Work Phone: Pharm [facility] Comment on above: Uncontrolled type 2 diabetes mellitus with hyperglycemia (HCC) Start: 11-05-2021 End: 11-05-2021 Home visit Katey Alvarez CERTIFIED NURSING ASSISTANT Work Phone: [facility] Comment on above: CERTIFIED NURSING ASSISTANT ROUTINE Refill Request Start: 11-05-2021 End: 11-05-2021 Telemedicine consultation with patient Donis Harris [facility] Work Phone: [facility] [place] Start: 11-05-2021 Telephone encounter Katey Da Silva on CERTIFIED NURSING ASSISTANT Work Phone: [facility] Comment on above: Home Care (Bandage r emoval) Start: 11-03-2021 End: 11-03-2021 Home visit Jemima Brunner PT Work Phone: [facility] Comment on above: PT CASE MANAGEMENT V ISIT Start: 11-03-2021 Telephone encounter Viet malcolm MD Work Phone: [address] Comment on above: Master Planner - H ospital Follow Up Start: 10-31-2021 End: 10-31-2021 Refill Modesta Daley MD Work Phone: Internal Medicine [place] Comment on above: Refill Request PT SOC Start: 10-30-2021 Telephone encounter Marleni BASS S [facility] Comment on above: Home Care (Confirmat ion Call) Start: 10-24-2021 Refill Inna Small APRN, .CNP Work Phone: Internal Medicine [place] Comment on above: Refill Request Start: 10-22-2021 Telephone encounter Modesta champagne MD Work Phone: Internal Medicine [place] Comment on above: Clinical Update Start: 10-22-2021 End: 10-22-[address] [facility] Start: 10-22-2021 End: 10-22-2021 Subsequent hospital visit by physician [facility] Radiology Comment on above: Pre-op exam [Z01.818 ] Start: 10-14-2021 Telephone encounter Viet malcolm MD Work Phone: [address] Comment on above: Pre-Op Teaching Start: 10-13-2021 End: 10-13-2021 PAT [facility] [place] 1 Work Phone: Pre Anesthesia Comment on above: Pre-operative examin ation (Primary Dx); Diabetes mellitus type 2 (HCC); History of implantation of artificial sphincter; Hyperlipidemia with target LDL less than 70; Hypertonicity of bladder; Incontinence of feces, unspecified fecal incontinence type; ARIANA (obstructive sleep apnea); Tardive dyskinesia; Obesity, Class III, BMI >= 40 (morbid obesity) ([facility]) E66.01; S/P gastric sleeve procedure; Gastroesophageal reflux disease, unspecified whether esophagitis present; Swelling; PTSD (post-traumatic stress disorder) Request for outside medical records (Last office visit and neuro testing) Start: 10-13-2021 End: 10-13-2021 Preprocedural examination done [facility] 1 Work Phone: Pre Anesthesia Start: 10-06-2021 End: 10-06-2021 Patient encounter procedure Donis Harris [facility] Work Phone: Pharm [facility] Comment on above: Uncontrolled type 2 diabetes mellitus with hyperglycemia ([facility]) Start: 10-02-2021 Refill Modesta Doss Work Phone: Internal Medicine [place] Comment on above: Refill Request Start: 09-26-2021 Refill Inna Small APRN, .CNP Work Phone: Internal Medicine [place] Comment on above: Refill Request Start: 09-15-2021 End: 09-15-2021 Patient encounter procedure Viet Johnson MD Work Phone: Orthopaedics Comment on above: Primary osteoarthrit is of left knee (Primary Dx); Obesity, Class III, BMI >= 40 (morbid obesity) ([facility]) E66.01 Start: 09-15-2021 End: 09-15-2021 Subsequent hospital visit by physician [facility] [place] Work Phone: Radiology Comment on above: Left knee pain, unsp ecified chronicity [M25.562] Start: 09-10-2021 End: 09-10-2021 Patient encounter procedure Donis Harris [facility] Work Phone: [facility] Comment on above: Uncontrolled type 2 diabetes mellitus with hyperglycemia (HCC) Start: 09-09-2021 Orders Only Viet Johnson MD Work Phone: Orthopaedics Comment on above: Left knee pain, unsp ecified chronicity (Primary Dx) Start: 09-08-2021 Telephone encounter Donis Harris [facility] Work Phone: [facility] Comment on above: Appointment Start: 08-29-2021 End: 08-29-2021 Refill Modesta Daley MD Work Phone: Internal Medicine [place] Comment on above: Refill Request Start: 08-29-2021 Refill Inna Older DRY HEAT CABINET ATTENDANT .HOURLY SHIFT MANAGER Work Phone: Internal Medicine [place] Comment on above: Refill Request Start: 08-14-2021 End: 08-14-2021 Patient encounter procedure Viet Johnson MD Work Phone: Orthopaedics Comment on above: Patient left without being seen (Primary Dx) Start: 08-11-2021 End: 08-11-2021 Patient encounter procedure Modesta Daley MD Work Phone: Internal Medicine [place] Comment on above: Sleep apnea, unspeci fied type (Primary Dx); S/P bariatric surgery; Diabetes mellitus type 2 (HCC) Start: 08-07-2021 Refill oMdesta Doss Work Phone: Internal Medicine [place] Comment on above: Refill Request Start: 08-01-2021 Refill Inna Older DRY HEAT CABINET ATTENDANT .HOURLY SHIFT MANAGER Work Phone: Internal Medicine [place] Comment on above: Refill Request Start: 07-29-2021 ambulatory Modesta Doss Work Phone: Internal Medicine [facility] [place] Start: 07-04-2021 Refill Modesta Doss Work Phone: Internal Medicine [place] Comment on above: Prescription Refills Start: 07-01-2021 ambulatory [facility] Start: 07-01-2021 End: 07-01-2021 Subsequent hospital visit by physician Jasbir Iyer MD Work Phone: [facility] Start: 06-30-2021 End: 06-30-2021 Patient encounter procedure Donis Harris [facility] Work Phone: Pharm [facility] Comment on above: Uncontrolled type 2 diabetes mellitus with hyperglycemia (HCC) Start: 06-11-2021 End: 06-11-2021 Patient encounter procedure Donis Harris [facility] Work Phone: Pharm [facility] Comment on above: Uncontrolled type 2 diabetes mellitus with hyperglycemia (HCC) (Primary Dx) Start: 06-11-2021 Refill Inna Older DRY HEAT CABINET ATTENDANT .HOURLY SHIFT MANAGER Work Phone: Internal Medicine [place] Comment on above: Refill Request Start: 06-06-2021 Refill Modesta Doss Work Phone: Internal Medicine [place] Comment on above: Refill Request Start: 06-06-2021 Refill Inna Older DRY HEAT CABINET ATTENDANT .HOURLY SHIFT MANAGER Work Phone: Internal Medicine [place] Comment on above: Refill Request Start: 06-04-2021 End: 06-04-2021 Patient encounter procedure Modesta Daley MD Work Phone: Internal Medicine [place] Comment on above: Diabetes mellitus ty pe 2 (HCC) (Primary Dx); S/P gastric bypass; Hyperlipidemia with target LDL less than 70 Start: 06-03-2021 ambulatory [facility] Start: 06-02-2021 Telephone encounter Modesta champagne MD Work Phone: Internal Medicine [place] Comment on above: Appointment; Patient Update Start: 05-28-2021 End: 05-29-2021 Evaluation and management of inpatient [facility] Start: 05-27-2021 Telephone encounter Modesta champagne MD Work Phone: Internal Medicine [place] Comment on above: insulin dose-surgery Start: 05-21-2021 ambulatory [facility] Start: 05-21-2021 Encounter for other preprocedural examination Jasbir Iyer [facility] Start: 05-15-2021 Telephone encounter Modesta champagne MD Work Phone: Internal Medicine [place] Comment on above: Patient Update (Bloo d sugar issues) Start: 05-12-2021 ambulatory Nelida Aguirremilagros [facility] [place] Comment on above: Population Health Na vigation Outreach ([place] [facility] Gaps) Start: 05-08-2021 End: 05-08-2021 Patient encounter procedure Modesta Daley MD Work Phone: Internal Medicine [place] Comment on above: Obesity, Class III, BMI >= 40 (morbid obesity) (HCC) E66.01 (Primary Dx); Diabetes mellitus type 2 (HCC); Hyperlipidemia with target LDL less than 70; ARIANA (obstructive sleep apnea) Start: 04-29-2021 ambulatory JULIO CESAR TOMAS [facility] Start: 04-29-2021 End: 04-29-2021 Preprocedural examination done Julio Cesar SU Work Phone: [facility] Start: 04-29-2021 End: 04-29-2021 Subsequent hospital visit by physician Julio Cesar SU Work Phone: [facility] Comment on above: Pre-operative exam; Type 2 diabetes mellitus without complication, unspecified whether terminal block assembler insulin use (HCC); Morbid obesity due to excess calories (HCC) Start: 04-29-2021 ambulatory [facility] Start: 01-01-2021 End: 01-01-2021 Subsequent hospital visit by physician Stephen Peterson MD Work Phone: [facility] Start: 11-29-2020 End: 11-29-2020 Subsequent hospital visit by physician Stephen Peterson MD Work Phone: [facility] Start: 10-23-2020 End: 10-23-2020 Subsequent hospital visit by physician Julio Cesar SU Work Phone: [facility] Start: 09-27-2020 End: 09-27-2020 Subsequent hospital visit by physician [facility] [place] Work Phone: Radiology Comment on above: Fall, initial encoun ter [W19.XXXA] Start: 09-25-2020 End: 09-25-2020 Subsequent hospital visit by physician Modesta Daley MD Work Phone: [facility] Start: 09-09-2020 End: 09-09-2020 Subsequent hospital visit by physician Stephen Peterson MD Work Phone: [facility] Start: 09-03-2020 End: 09-03-2020 Subsequent hospital visit by physician Jasbir Iyer MD Work Phone: [facility] Comment on above: Arrived Start: 08-28-2020 End: 08-28-2020 Subsequent hospital visit by physician Stephen Peterson MD Work Phone: [facility] Start: 08-07-2020 End: 08-07-2020 Subsequent hospital visit by physician Stephen Peterson MD Work Phone: [facility] Start: 05-22-2020 End: 05-22-2020 Subsequent hospital visit by physician Stephen Peterson Work Phone: [facility] Procedures Date Procedure Procedure Detail Performing Clinician Start: 05-01-2024 Adult depression screening assessment Modesta Daley MD Work Phone: Start: 04-24-2024 BD DXA TRABECULAR BONE SCORE (TBS) Inna Small 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 Work Phone: Start: 04-24-2024 Dxa bone density study 1/> sites axial skel Inna Small 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 Work Phone: Start: 07-15-2023 Radex shoulder complete minimum 2 views Inna Small 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 Work Phone: Start: 07-15-2023 Hemoglobin A1c/Hemoglobin.total in Blood Inna Small 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 Work Phone: Start: 04-22-2023 Screening mammography bi 2-view breast inc cad Inna 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 Work Phone: Start: 04-15-2023 Hemoglobin A1c/Hemoglobin.total in Blood Inna 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 Work Phone: Start: 01-13-2023 Hemoglobin A1c/Hemoglobin.total in Blood Inna 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 Work Phone: Start: 11-15-2022 Liver elastography w/o imag w/i&r Inna 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 Work Phone: Start: 10-22-2022 Us abdominal real time w/image limited Inna 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 Work Phone: Start: 09-14-2022 Plethysmography lung volumes w/wo airway resist Shawanda May MD Work Phone: Start: 09-04-2022 Lipid 1996 panel - Serum or Plasma Stephen Peterson MD Work Phone: Start: 07-31-2022 Laparoscopic, Salpingo-oopherectomy (Not Applicable) Start: 06-15-2022 Us pelvic nonobstetric real-time image complete Chyna Delacruz MD Work Phone: Start: 06-11-2022 Hemoglobin A1c/Hemoglobin.total in Blood Inna 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 Work Phone: Start: 04-15-2022 End: 04-15-2022 Mammography Inna 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 Work Phone: Start: 12-11-2021 Hemoglobin A1c/Hemoglobin.total in Blood Modesta Daley MD Work Phone: Start: 10-22-2021 Ct lower extremity w/o contrast material Kelli Davis PA-C Work Phone: Start: 09-15-2021 Radiologic exam knee complete 4/more views Viet Johnson MD Work Phone: Start: 04-29-2021 Basic metabolic panel calcium total Julio Cesar Zlorenke PA Work Phone: Start: 04-29-2021 Radiologic exam chest 2 views Julio Cesar SU Work Phone: Start: 04-03-2021 Mammography Modesta Daley MD Work Phone: Start: 09-27-2020 Radiologic exam knee complete 4/more views Yary Mcnamara DRY HEAT CABINET ATTENDANTRissaFAMILY SERVICE WORKER Work Phone: Start: 09-03-2020 [facility] ENDOSCOPY REPORT 3m Scanning Start: 04-15-2020 Adult depression screening assessment Modesta Daley MD Work Phone: Start: 09-20-2019 Colonoscopy Modesta Daley MD Work Phone: H/O: surgery S/P ovarian cystectomy Kiarra Jewell 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 Work Phone: Plan of Treatment Date Care Activity Detail Author Start: 10-03-2030 DTaP/Tdap/Td vaccine (5 - Td or Tdap) DTaP/Tdap/Td vaccine (5 - Td or Tdap) [facility] Start: 10-03-2030 DTaP/Tdap/Td Vaccines (5 - Td or Tdap) DTaP/Tdap/Td Vaccines (5 - Td or Tdap) [facility] Start: 10-03-2030 Urine microalbumin profile [facility] Start: 09-21-2029 DTaP/Tdap/Td vaccine (3 - Td or Tdap) DTaP/Tdap/Td vaccine (3 - Td or Tdap) [facility] Work Phone: Start: 09-21-2029 DTaP/Tdap/Td vaccine (3 - Td) DTaP/Tdap/Td vaccine (3 - Td) [facility] Work Phone: Start: 09-19-2029 Screening for malignant neoplasm of colon [facility] Start: 09-11-2025 Annual PCP Team Chronic Disease Visit Annual PCP Team Chronic Disease Visit [facility] Start: 05-15-2025 Annual PCP Team Chronic Disease Visit Annual PCP Team Chronic Disease Visit [facility] Start: 05-01-2025 Annual PCP Team Chronic Disease Visit Annual PCP Team Chronic Disease Visit [facility] Start: 05-01-2025 Depression Screening Depression Screening [facility] Start: 04-24-2025 Screening for malignant neoplasm of breast Mammogram Screening [facility] Start: 03-14-2025 Hemoglobin A1c measurement HbA1C [facility] Start: 01-19-2025 Annual PCP Team Chronic Disease Visit Annual PCP Team Chronic Disease Visit [facility] Start: 01-19-2025 Covid-19 Vaccine ( season) Covid-19 Vaccine () [facility] Comment on above: Postponed from 01/04/2024 (Declined at t his time) Start: 01-19-2025 Covid-19 Vaccine () Covid-19 Vaccine () [facility] Comment on above: Postponed from 01/04/2024 (Declined at t his time) Start: 01-10-2025 Hepatitis B screening Urine Albumin:Creatinine Ratio [facility] Start: 01-10-2025 Hepatitis B surface antibody level LDL Cholesterol [facility] Start: 12-12-2024 End: 12-12-2024 Patient encounter procedure 12/12/2024 10:00 AM EDT Office Visit [facility] Medicine [place] [address] [place], [place] [id number] Modesta Daley MD [address] [place] [address] Medicare Wellness [facility] [place] Comment on above: Medicare Wellness Start: 10-27-2024 Glaucoma screening Dilated Retinal Exam [facility] Start: 10-25-2024 Hemoglobin A1c measurement HbA1C [facility] Start: 10-16-2024 Influenza vaccination Influenza Vaccine (#1) [facility] Start: 09-21-2024 Pneumococcal 0-64 years Vaccine (2 of 2 - PPSV23) Pneumococcal 0-64 years Vaccine (2 of 2 - PPSV23) [facility] Start: 09-21-2024 Pneumococcal 0-64 years Vaccine (2 of 2) Pneumococcal 0-64 years Vaccine (2 of 2) [facility] Work Phone: Start: 09-21-2024 Pneumococcal 0-64 years Vaccine (3 - PPSV23 or PCV20) Pneumococcal 0-64 years Vaccine (3 - PPSV23 or PCV20) [facility] Start: 09-21-2024 Pneumococcal Vaccine: 65+ (3 - PPSV23 or PCV20) Pneumococcal Vaccine: 65+ (3 - PPSV23 or PCV20) [facility] Start: 09-21-2024 Pneumococcal Vaccine: 65+ Years (3 - PPSV23 if available, else PCV20) Pneumococcal Vaccine: 65+ Years (3 - PPSV23 if available, else PCV20) [facility] Start: 09-21-2024 Pneumococcal Vaccine: 65+ Years (3 - PPSV23 or PCV20) Pneumococcal Vaccine: 65+ Years (3 - PPSV23 or PCV20) [facility] Start: 09-21-2024 Pneumococcal Vaccine: Pediatrics (0 to 5 Years) and At-Risk Patients (6 to 64 Years) (3 - PPSV23 if available, else PCV20) Pneumococcal Vaccine: Pediatrics (0 to 5 Years) and At-Risk Patients (6 to 64 Years) (3 - PPSV23 if available, else PCV20) [facility] Start: 09-21-2024 PNEUMOCOCCAL: 65+ (3 - PPSV23 or PCV20) PNEUMOCOCCAL: 65+ (3 - PPSV23 or PCV20) [facility] Start: 09-19-2024 Colonoscopy COLONOSCOPY [facility] Start: 09-19-2024 COLORECTAL CANCER SCREENING COLORECTAL CANCER SCREENING [facility] Start: 09-19-2024 Screening for malignant neoplasm of colon [facility] Start: 09-11-2024 End: 12-11-2024 Hemoglobin A1c in Blood [facility] Work Phone: Comment on above: Expected: 09/11/2024, Expires: Start: 08-28-2024 End: 08-28-2024 Patient encounter procedure 08/28/2024 8:20 AM EDT Office Visit [facility] Medicine [place] [address] [facility] [place] [address] Inna Small 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 [address] [place] [address] 3 mo f/u [facility] [place] Comment on above: 3 mo f/u Start: 08-11-2024 End: 08-11-2024 Patient encounter procedure 08/11/2024 10:40 AM EDT Office Visit [facility] Medicine [place] [address] [place] [address] Inna Small 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 [address] [place] [address] 3 month follow up [facility] [place] Comment on above: 3 month follow up Start: 07-14-2024 Annual PCP Team Chronic Disease Visit Annual PCP Team Chronic Disease Visit [facility] Start: 07-10-2024 Hemoglobin A1c measurement HbA1C [facility] Start: 05-15-2024 End: 05-15-2024 Patient encounter procedure 05/15/2024 1:00 PM EDT Office Visit Internal Medicine [place] [address] [facility] [place] [address] Inna Small 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 [address] [place] [address] 2 week follow up [facility] [place] Comment on above: 2 week follow up Start: 05-12-2024 Annual PCP Team Chronic Disease Visit Annual PCP Team Chronic Disease Visit [facility] Start: 04-28-2024 End: 04-28-2024 Patient encounter procedure 04/28/2024 9:20 AM EDT Office Visit [facility] Medicine [place] [address] [facility] [place] [address] Modesta Daley MD [address] [place] [address] 3 month follow up [facility] [place] Comment on above: 3 month follow up Start: 04-24-2024 End: 04-24-2024 Patient encounter procedure Mammogram Comment on above: Encounter for screening mammogram for br east cancer [Z12.31] Asymptomatic menopau se [Z78.0] Start: 04-21-2024 Screening for malignant neoplasm of breast Mammogram Screening [facility] Start: 04-19-2024 End: 07-19-2024 Comprehensive metabolic 2000 panel - Serum or Plasma COMPREHENSIVE METABOLIC PANEL Lab Routine Diabetes mellitus type 2 (HCC) Expected: 04/19/2024 (Approximate), Expires: 07/19/2024 [facility] Comment on above: Expected: 04/19/2024 (Approximate), Expi res: 07/19/2024 Start: 04-19-2024 End: 07-19-2024 Hemoglobin A1c in Blood HEMOGLOBIN A1C Lab Routine Diabetes mellitus type 2 (HCC) Expected: 04/19/2024 (Approximate), Expires: 07/19/2024 [facility] Comment on above: Expected: 04/19/2024 (Approximate), Expi res: 07/19/2024 Start: 04-14-2024 Annual PCP Team Chronic Disease Visit Annual PCP Team Chronic Disease Visit [facility] Start: 03-28-2024 End: 03-28-2024 Patient encounter procedure 03/28/2024 1:00 PM EST OT/PT/Speech Visit [facility] [address] [place] [address] Robyn Elena, OTR/L [address] [place] [address] Tremors [facility] Comment on above: Tremors Start: 03-08-2024 End: 06-07-2024 25-hydroxyvitamin D3 [Mass/volume] in Serum or Plasma VITAMIN D 25 HYDROXY Lab Routine Vitamin D deficiency Expected: 03/08/2024, Expires: 06/07/2024 [facility] Work Phone: Comment on above: Expected: 03/08/2024, Expires: Start: 03-01-2024 Annual PCP Team Chronic Disease Visit Annual PCP Team Chronic Disease Visit [facility] Start: 02-16-2024 Advance Directive Discussion Advance Directive Discussion [facility] Start: 02-16-2024 Medicare Advantage Annual Wellness Visit Medicare Advantage Annual Wellness Visit [facility] Start: 01-26-2024 Annual PCP Team Chronic Disease Visit Annual PCP Team Chronic Disease Visit [facility] Start: 01-20-2024 End: 04-20-2024 CBC W Auto Differential panel - Blood [facility] Comment on above: Expected: 01/20/2024, Expires: Start: 01-20-2024 End: 04-20-2024 Cobalamin (Vitamin B12) [Mass/volume] in Serum or Plasma [facility] Comment on above: Expected: 01/20/2024, Expires: Start: 01-20-2024 End: 04-20-2024 Thyrotropin [Units/volume] in Serum or Plasma [facility] Comment on above: Expected: 01/20/2024, Expires: Start: 01-20-2024 End: 01-20-2024 Patient encounter procedure 01/20/2024 9:20 AM EST Office Visit [facility] [place] [address] [place] [address] Inna Small 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 [address] [place] [address] 6 month follow up [facility] [place] Comment on above: 6 month follow up Start: 01-15-2024 Hemoglobin A1c measurement HbA1C [facility] Start: 01-14-2024 3 comp foot exam completed Diabetic Foot Exam [facility] Start: 01-14-2024 Annual PCP Team Chronic Disease Visit Annual PCP Team Chronic Disease Visit [facility] Start: 01-14-2024 Covid-19 Vaccine () Covid-19 Vaccine () [facility] Comment on above: Postponed from 01/13/2023 (Declined at t his time) Postponed from 03/21 (Declined at this time) Start: 01-14-2024 Covid-19 Vaccine () Covid-19 Vaccine () [facility] Comment on above: Postponed from 03/21/2023 (Declined at t his time) Start: 01-14-2024 Diabetic foot examination Diabetic Foot Exam [facility] Start: 01-14-2024 RSV Vaccine (1 - 1-dose 60+ series) RSV Vaccine (1 - 1-dose 60+ series) [facility] Comment on above: Postponed from 2017 (Declined at t his time) Start: 01-14-2024 RSV Vaccine (1 - Risk 60-74 years 1-dose series) RSV Vaccine (1 - Risk 60-74 years 1-dose series) [facility] Comment on above: Postponed from 2017 (Declined at t his time) Start: 01-04-2024 End: 04-04-2024 Basic metabolic 2000 panel - Serum or Plasma BASIC METABOLIC PANEL Lab Routine Diabetes mellitus type 2 (HCC) Expected: 01/04/2024, Expires: 04/04/2024 [facility] Comment on above: Expected: 01/04/2024, Expires: Start: 01-04-2024 Covid-19 Vaccine () Covid-19 Vaccine () [facility] Start: 01-04-2024 End: 04-04-2024 Hemoglobin A1c in Blood HEMOGLOBIN A1C Lab Routine Diabetes mellitus type 2 (HCC) Expected: 01/04/2024, Expires: 04/04/2024 [facility] Comment on above: Expected: 01/04/2024, Expires: Start: 01-04-2024 End: 04-04-2024 Lipid 1996 panel - Serum or Plasma LIPID PANEL BASIC Lab Routine Hyperlipidemia with target LDL less than 70 Expected: 01/04/2024, Expires: 04/04/2024 [facility] Comment on above: Expected: 01/04/2024, Expires: Start: 01-04-2024 End: 04-04-2024 Microalbumin/Creatinine [Mass Ratio] in Urine ALBUMIN/CREATININE RATIO, URINE Lab Routine Diabetes mellitus type 2 (HCC) Expected: 01/04/2024, Expires: 04/04/2024 [facility] Work Phone: Comment on above: Expected: 01/04/2024, Expires: Start: 12-22-2023 Annual PCP Team Chronic Disease Visit Annual PCP Team Chronic Disease Visit [facility] Start: 12-12-2023 Hepatitis B surface antibody level LDL Cholesterol [facility] Start: 10-25-2023 End: 10-25-2023 Patient encounter procedure 10/25/2023 11:00 AM EDT Office Visit Orthopaedics [address] [place] [address] Kelli Davis PA-C [address] [place] [address] Chronic left shoulder pain [M25.512, G89.29] [facility] Comment on above: Chronic left shoulder pain [M25.512, G89 .29] Start: 10-17-2023 Covid-19 Vaccine () Covid-19 Vaccine () [facility] Start: 10-17-2023 [facility] Start: 10-14-2023 Hemoglobin A1c measurement HbA1C [facility] Start: 10-13-2023 ANNUAL PCP TEAM CHRONIC DISEASE VISIT ANNUAL PCP TEAM CHRONIC DISEASE VISIT [facility] Start: 10-07-2023 Hepatitis B screening URINE ALBUMIN:CREATININE RATIO [facility] Start: 09-05-2023 Hepatitis B surface antibody level LDL CHOLESTEROL [facility] Start: 09-05-2023 Lipid panel Lipid Panel [facility] Start: 08-26-2023 Hepatitis B surface antibody level LDL CHOLESTEROL [facility] Start: 07-28-2023 ANNUAL PCP TEAM CHRONIC DISEASE VISIT ANNUAL PCP TEAM CHRONIC DISEASE VISIT [facility] Start: 07-22-2023 Glaucoma screening Dilated Retinal Exam [facility] Start: 07-22-2023 Hepatitis C antibody, confirmatory test DILATED RETINAL EXAM [facility] Start: 07-15-2023 End: 07-15-2023 Patient encounter procedure 07/15/2023 9:40 AM EDT Office Visit Internal Medicine [facility] [address] [place], [place] [id number] Inna Small 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 [address] [place] [address] 3 month follow up [facility] [place] Comment on above: 3 month follow up Start: 07-14-2023 Hemoglobin A1c measurement HbA1C [facility] Start: 07-14-2023 Hemoglobin A1c/Hemoglobin.total in Blood HbA1C [facility] Start: 07-09-2023 ANNUAL PCP TEAM CHRONIC DISEASE VISIT ANNUAL PCP TEAM CHRONIC DISEASE VISIT [facility] Start: 06-12-2023 ANNUAL PCP TEAM CHRONIC DISEASE VISIT ANNUAL PCP TEAM CHRONIC DISEASE VISIT [facility] Start: 06-12-2023 BONE DENSITY BONE DENSITY [facility] Comment on above: Postponed from 2022 (Declined at t his time) Start: 06-12-2023 Bone Density Screening Bone Density Screening [facility] Comment on above: Postponed from 2022 (Declined at t his time) Start: 06-12-2023 Hemoglobin A1c measurement Diabetes: Hemoglobin A1C [facility] Start: 06-12-2023 PNEUMOCOCCAL: 65+ (2 - PCV) PNEUMOCOCCAL: 65+ (2 - PCV) [facility] Comment on above: Postponed from 09/21/2020 (Declined at t his time) Start: 06-12-2023 Screening for osteoporosis Bone Density Screening [facility] Comment on above: Postponed from 2022 (Declined at t his time) Start: 05-15-2023 Hepatitis B surface antibody level LDL CHOLESTEROL [facility] Start: 04-16-2023 Mammography [facility] Start: 04-16-2023 Screening for malignant neoplasm of breast Mammogram Screening [facility] Start: 04-08-2023 Hemoglobin A1c/Hemoglobin.total in Blood HBA1C [facility] Start: 04-03-2023 Screening for malignant neoplasm of breast Breast cancer screen [facility] Start: 03-20-2023 End: 12-19-2023 Zinc Zinc Lab Routine Abnormal zinc level in blood Expected: 03/20/2023, Expires: 12/19/2023 [facility] Comment on above: Expected: 03/20/2023, Expires: Start: 03-13-2023 ANNUAL PCP TEAM CHRONIC DISEASE VISIT ANNUAL PCP TEAM CHRONIC DISEASE VISIT [facility] Start: 03-13-2023 HPV TESTING HPV TESTING [facility] Comment on above: Postponed from 08/23/2014 (Declined at t his time) Start: 03-13-2023 PAP TESTING PAP TESTING [facility] Comment on above: Postponed from 08/23/2014 (Declined at t his time) Start: 03-13-2023 PNEUMOCOCCAL (2 - PCV) PNEUMOCOCCAL (2 - PCV) [facility] Comment on above: Postponed from 09/21/2020 (Declined at t his time) Start: 03-03-2023 Hepatitis B surface antibody level LDL CHOLESTEROL [facility] Start: 02-15-2023 Advance Directive Discussion Advance Directive Discussion [facility] Start: 02-15-2023 Behavioral Health Screening Behavioral Health Screening [facility] Start: 02-15-2023 Depression Assessment Depression Assessment [facility] Start: 01-13-2023 Covid-19 Vaccine () Covid-19 Vaccine () [facility] Start: 12-18-2022 End: 12-19-2023 25-hydroxyvitamin D3 [Mass/volume] in Serum or Plasma Vitamin D Deficiency Screening (Vit D 25) Lab Routine History of gastric bypass Vitamin deficiency Intestinal malabsorption, unspecified type Expected: 12/18/2022, Expires: 12/19/2023 [facility] Comment on above: Expected: 12/18/2022, Expires: Start: 12-18-2022 End: 12-19-2023 CBC panel - Blood by Automated count CBC Lab Routine History of gastric bypass Vitamin deficiency Intestinal malabsorption, unspecified type Expected: 12/18/2022, Expires: 12/19/2023 [facility] Comment on above: Expected: 12/18/2022, Expires: Start: 12-18-2022 End: 12-19-2023 Cobalamin (Vitamin B12) [Mass/volume] in Serum or Plasma Vitamin B12 Lab Routine History of gastric bypass Vitamin deficiency Intestinal malabsorption, unspecified type Expected: 12/18/2022, Expires: 12/19/2023 [facility] Comment on above: Expected: 12/18/2022, Expires: Start: 12-18-2022 End: 12-19-2023 Comprehensive metabolic 1998 panel - Serum or Plasma Comprehensive metabolic panel Lab Routine History of gastric bypass Vitamin deficiency Intestinal malabsorption, unspecified type Expected: 12/18/2022, Expires: 12/19/2023 [facility] Comment on above: Expected: 12/18/2022, Expires: Start: 12-18-2022 End: 12-19-2023 Ferritin [Mass/volume] in Serum or Plasma Ferritin Lab Routine History of gastric bypass Vitamin deficiency Intestinal malabsorption, unspecified type Expected: 12/18/2022, Expires: 12/19/2023 [facility] Comment on above: Expected: 12/18/2022, Expires: Start: 12-18-2022 End: 12-19-2023 Folate [Mass/volume] in Serum or Plasma Folate Lab Routine History of gastric bypass Vitamin deficiency Intestinal malabsorption, unspecified type Expected: 12/18/2022, Expires: 12/19/2023 [facility] Comment on above: Expected: 12/18/2022, Expires: Start: 12-18-2022 End: 12-19-2023 Iron and Iron binding capacity panel - Serum or Plasma Iron Lab Routine History of gastric bypass Vitamin deficiency Intestinal malabsorption, unspecified type Expected: 12/18/2022, Expires: 12/19/2023 [facility] Comment on above: Expected: 12/18/2022, Expires: Start: 12-18-2022 End: 12-19-2023 Magnesium [Mass/volume] in Serum or Plasma Magnesium Lab Routine History of gastric bypass Vitamin deficiency Intestinal malabsorption, unspecified type Expected: 12/18/2022, Expires: 12/19/2023 [facility] Comment on above: Expected: 12/18/2022, Expires: Start: 12-18-2022 End: 12-19-2023 Protein [Mass/volume] in Serum or Plasma Protein, total Lab Routine Low serum total protein level Expected: 12/18/2022 (Approximate), Expires: 12/19/2023 [facility] Comment on above: Expected: 12/18/2022 (Approximate), Expi res: 12/19/2023 Start: 12-18-2022 End: 12-19-2023 Vitamin B1, whole blood Vitamin B1, whole blood Lab Routine History of gastric bypass Vitamin deficiency Intestinal malabsorption, unspecified type Expected: 12/18/2022, Expires: 12/19/2023 [facility] Comment on above: Expected: 12/18/2022, Expires: Start: 12-18-2022 End: 12-19-2023 Zinc Zinc Lab Routine History of gastric bypass Vitamin deficiency Intestinal malabsorption, unspecified type Expected: 12/18/2022, Expires: 12/19/2023 [facility] Work Phone: Comment on above: Expected: 12/18/2022, Expires: Start: 12-18-2022 End: 12-18-2022 Patient encounter procedure [facility] [place] Start: 12-11-2022 ANNUAL PCP TEAM CHRONIC DISEASE VISIT ANNUAL PCP TEAM CHRONIC DISEASE VISIT [facility] Start: 12-08-2022 Covid-19 Vaccine () Covid-19 Vaccine () [facility] Start: 12-01-2022 Hepatitis B surface antibody level LDL CHOLESTEROL [facility] Start: 11-25-2022 End: 05-27-2023 25-hydroxyvitamin D3 [Mass/volume] in Serum or Plasma Vitamin D 25 hydroxy Lab Routine Intestinal malabsorption, unspecified type Deficiency of multiple nutrient elements High cholesterol Type 2 diabetes mellitus without complication, unspecified whether fci insulin use (HCC) Class 1 obesity due to excess calories with serious comorbidity and body mass index (BMI) of 34.0 to 34.9 in adult Expected: 11/25/2022 (Approximate), Expires: 05/27/2023 [facility] Comment on above: Expected: 11/25/2022 (Approximate), Expi res: 05/27/2023 Start: 11-25-2022 End: 05-27-2023 CBC panel - Blood by Automated count CBC Lab Routine Intestinal malabsorption, unspecified type Deficiency of multiple nutrient elements High cholesterol Type 2 diabetes mellitus without complication, unspecified whether fci insulin use (HCC) Class 1 obesity due to excess calories with serious comorbidity and body mass index (BMI) of 34.0 to 34.9 in adult Expected: 11/25/2022 (Approximate), Expires: 05/27/2023 [facility] Comment on above: Expected: 11/25/2022 (Approximate), Expi res: 05/27/2023 Start: 11-25-2022 End: 05-27-2023 Cobalamin (Vitamin B12) [Mass/volume] in Serum or Plasma Vitamin B12 Lab Routine Intestinal malabsorption, unspecified type Deficiency of multiple nutrient elements High cholesterol Type 2 diabetes mellitus without complication, unspecified whether fci insulin use (HCC) Class 1 obesity due to excess calories with serious comorbidity and body mass index (BMI) of 34.0 to 34.9 in adult Expected: 11/25/2022 (Approximate), Expires: 05/27/2023 [facility] Comment on above: Expected: 11/25/2022 (Approximate), Expi res: 05/27/2023 Start: 11-25-2022 End: 05-27-2023 Comprehensive metabolic 1998 panel - Serum or Plasma Comprehensive metabolic panel Lab Routine Intestinal malabsorption, unspecified type Deficiency of multiple nutrient elements High cholesterol Type 2 diabetes mellitus without complication, unspecified whether terminal block assembler insulin use (HCC) Class 1 obesity due to excess calories with serious comorbidity and body mass index (BMI) of 34.0 to 34.9 in adult Expected: 11/25/2022 (Approximate), Expires: 05/27/2023 [facility] Comment on above: Expected: 11/25/2022 (Approximate), Expi res: 05/27/2023 Start: 11-25-2022 End: 05-27-2023 Ferritin [Mass/volume] in Serum or Plasma Ferritin Lab Routine Intestinal malabsorption, unspecified type Deficiency of multiple nutrient elements High cholesterol Type 2 diabetes mellitus without complication, unspecified whether fci insulin use (HCC) Class 1 obesity due to excess calories with serious comorbidity and body mass index (BMI) of 34.0 to 34.9 in adult Expected: 11/25/2022 (Approximate), Expires: 05/27/2023 [facility] Comment on above: Expected: 11/25/2022 (Approximate), Expi res: 05/27/2023 Start: 11-25-2022 End: 05-27-2023 Folate [Mass/volume] in Serum or Plasma Folate Lab Routine Intestinal malabsorption, unspecified type Deficiency of multiple nutrient elements High cholesterol Type 2 diabetes mellitus without complication, unspecified whether terminal block assembler insulin use (HCC) Class 1 obesity due to excess calories with serious comorbidity and body mass index (BMI) of 34.0 to 34.9 in adult Expected: 11/25/2022 (Approximate), Expires: 05/27/2023 [facility] Comment on above: Expected: 11/25/2022 (Approximate), Expi res: 05/27/2023 Start: 11-25-2022 End: 05-27-2023 Iron and Iron binding capacity panel - Serum or Plasma Iron Lab Routine Intestinal malabsorption, unspecified type Deficiency of multiple nutrient elements High cholesterol Type 2 diabetes mellitus without complication, unspecified whether terminal block assembler insulin use (HCC) Class 1 obesity due to excess calories with serious comorbidity and body mass index (BMI) of 34.0 to 34.9 in adult Expected: 11/25/2022 (Approximate), Expires: 05/27/2023 [facility] Comment on above: Expected: 11/25/2022 (Approximate), Expi res: 05/27/2023 Start: 11-25-2022 End: 05-27-2023 Lipid 1996 panel - Serum or Plasma Lipid panel Lab Routine Intestinal malabsorption, unspecified type Deficiency of multiple nutrient elements High cholesterol Type 2 diabetes mellitus without complication, unspecified whether terminal block assembler insulin use (HCC) Class 1 obesity due to excess calories with serious comorbidity and body mass index (BMI) of 34.0 to 34.9 in adult Expected: 11/25/2022 (Approximate), Expires: 05/27/2023 [facility] Comment on above: Expected: 11/25/2022 (Approximate), Expi res: 05/27/2023 Start: 11-25-2022 End: 05-27-2023 Magnesium [Mass/volume] in Serum or Plasma Magnesium Lab Routine Intestinal malabsorption, unspecified type Deficiency of multiple nutrient elements High cholesterol Type 2 diabetes mellitus without complication, unspecified whether terminal block assembler insulin use (HCC) Class 1 obesity due to excess calories with serious comorbidity and body mass index (BMI) of 34.0 to 34.9 in adult Expected: 11/25/2022 (Approximate), Expires: 05/27/2023 [facility] Comment on above: Expected: 11/25/2022 (Approximate), Expi res: 05/27/2023 Start: 11-25-2022 End: 05-27-2023 Vitamin B1, whole blood Vitamin B1, whole blood Lab Routine Intestinal malabsorption, unspecified type Deficiency of multiple nutrient elements High cholesterol Type 2 diabetes mellitus without complication, unspecified whether terminal block assembler insulin use (HCC) Class 1 obesity due to excess calories with serious comorbidity and body mass index (BMI) of 34.0 to 34.9 in adult Expected: 11/25/2022 (Approximate), Expires: 05/27/2023 [facility] Comment on above: Expected: 11/25/2022 (Approximate), Expi res: 05/27/2023 Start: 11-25-2022 End: 05-27-2023 Zinc Zinc Lab Routine Intestinal malabsorption, unspecified type Deficiency of multiple nutrient elements High cholesterol Type 2 diabetes mellitus without complication, unspecified whether fci insulin use (HCC) Class 1 obesity due to excess calories with serious comorbidity and body mass index (BMI) of 34.0 to 34.9 in adult Expected: 11/25/2022 (Approximate), Expires: 05/27/2023 [facility] Work Phone: Comment on above: Expected: 11/25/2022 (Approximate), Expi res: 05/27/2023 Start: 11-09-2022 3 comp foot exam completed DIABETIC FOOT EXAM [facility] Comment on above: Postponed from 09/20/2020 (Declined at t his time) Start: 10-26-2022 End: 05-27-2023 25-hydroxyvitamin D3 [Mass/volume] in Serum or Plasma Vitamin D 25 hydroxy Lab Routine Intestinal malabsorption, unspecified type Deficiency of multiple nutrient elements High cholesterol Type 2 diabetes mellitus without complication, unspecified whether fci insulin use (HCC) Class 1 obesity due to excess calories with serious comorbidity and body mass index (BMI) of 34.0 to 34.9 in adult [place] (obstructive sleep apnea) Expected: 10/26/2022 (Approximate), Expires: 05/27/2023 [facility] Comment on above: Expected: 10/26/2022 (Approximate), Expi res: 05/27/2023 Start: 10-26-2022 End: 05-27-2023 CBC panel - Blood by Automated count CBC Lab Routine Intestinal malabsorption, unspecified type Deficiency of multiple nutrient elements High cholesterol Type 2 diabetes mellitus without complication, unspecified whether terminal block assembler insulin use (HCC) Class 1 obesity due to excess calories with serious comorbidity and body mass index (BMI) of 34.0 to 34.9 in adult ARI[place] (obstructive sleep apnea) Expected: 10/26/2022 (Approximate), Expires: 05/27/2023 [facility] Comment on above: Expected: 10/26/2022 (Approximate), Expi res: 05/27/2023 Start: 10-26-2022 End: 05-27-2023 Cobalamin (Vitamin B12) [Mass/volume] in Serum or Plasma Vitamin B12 Lab Routine Intestinal malabsorption, unspecified type Deficiency of multiple nutrient elements High cholesterol Type 2 diabetes mellitus without complication, unspecified whether terminal block assembler insulin use (HCC) Class 1 obesity due to excess calories with serious comorbidity and body mass index (BMI) of 34.0 to 34.9 in adult ARI[place] (obstructive sleep apnea) Expected: 10/26/2022 (Approximate), Expires: 05/27/2023 [facility] Comment on above: Expected: 10/26/2022 (Approximate), Expi res: 05/27/2023 Start: 10-26-2022 End: 05-27-2023 Comprehensive metabolic 1998 panel - Serum or Plasma Comprehensive metabolic panel Lab Routine Intestinal malabsorption, unspecified type Deficiency of multiple nutrient elements High cholesterol Type 2 diabetes mellitus without complication, unspecified whether terminal block assembler insulin use (HCC) Class 1 obesity due to excess calories with serious comorbidity and body mass index (BMI) of 34.0 to 34.9 in adult ARI[place] (obstructive sleep apnea) Expected: 10/26/2022 (Approximate), Expires: 05/27/2023 [facility] Comment on above: Expected: 10/26/2022 (Approximate), Expi res: 05/27/2023 Start: 10-26-2022 End: 05-27-2023 Ferritin [Mass/volume] in Serum or Plasma Ferritin Lab Routine Intestinal malabsorption, unspecified type Deficiency of multiple nutrient elements High cholesterol Type 2 diabetes mellitus without complication, unspecified whether fci insulin use (HCC) Class 1 obesity due to excess calories with serious comorbidity and body mass index (BMI) of 34.0 to 34.9 in adult ARI[place] (obstructive sleep apnea) Expected: 10/26/2022 (Approximate), Expires: 05/27/2023 [facility] Comment on above: Expected: 10/26/2022 (Approximate), Expi res: 05/27/2023 Start: 10-26-2022 End: 05-27-2023 Folate [Mass/volume] in Serum or Plasma Folate Lab Routine Intestinal malabsorption, unspecified type Deficiency of multiple nutrient elements High cholesterol Type 2 diabetes mellitus without complication, unspecified whether terminal block assembler insulin use (HCC) Class 1 obesity due to excess calories with serious comorbidity and body mass index (BMI) of 34.0 to 34.9 in adult ARI[place] (obstructive sleep apnea) Expected: 10/26/2022 (Approximate), Expires: 05/27/2023 [facility] Comment on above: Expected: 10/26/2022 (Approximate), Expi res: 05/27/2023 Start: 10-26-2022 End: 05-27-2023 Iron and Iron binding capacity panel - Serum or Plasma Iron Lab Routine Intestinal malabsorption, unspecified type Deficiency of multiple nutrient elements High cholesterol Type 2 diabetes mellitus without complication, unspecified whether terminal block assembler insulin use (HCC) Class 1 obesity due to excess calories with serious comorbidity and body mass index (BMI) of 34.0 to 34.9 in adult ARI[place] (obstructive sleep apnea) Expected: 10/26/2022 (Approximate), Expires: 05/27/2023 [facility] Comment on above: Expected: 10/26/2022 (Approximate), Expi res: 05/27/2023 Start: 10-26-2022 End: 05-27-2023 Lipid 1996 panel - Serum or Plasma Lipid panel Lab Routine Intestinal malabsorption, unspecified type Deficiency of multiple nutrient elements High cholesterol Type 2 diabetes mellitus without complication, unspecified whether terminal block assembler insulin use (HCC) Class 1 obesity due to excess calories with serious comorbidity and body mass index (BMI) of 34.0 to 34.9 in adult ARI[place] (obstructive sleep apnea) Expected: 10/26/2022 (Approximate), Expires: 05/27/2023 [facility] Comment on above: Expected: 10/26/2022 (Approximate), Expi res: 05/27/2023 Start: 10-26-2022 End: 05-27-2023 Magnesium [Mass/volume] in Serum or Plasma Magnesium Lab Routine Intestinal malabsorption, unspecified type Deficiency of multiple nutrient elements High cholesterol Type 2 diabetes mellitus without complication, unspecified whether terminal block assembler insulin use (HCC) Class 1 obesity due to excess calories with serious comorbidity and body mass index (BMI) of 34.0 to 34.9 in adult ARI[place] (obstructive sleep apnea) Expected: 10/26/2022 (Approximate), Expires: 05/27/2023 [facility] Comment on above: Expected: 10/26/2022 (Approximate), Expi res: 05/27/2023 Start: 10-26-2022 End: 05-27-2023 Vitamin B1, whole blood Vitamin B1, whole blood Lab Routine Intestinal malabsorption, unspecified type Deficiency of multiple nutrient elements High cholesterol Type 2 diabetes mellitus without complication, unspecified whether terminal block assembler insulin use (HCC) Class 1 obesity due to excess calories with serious comorbidity and body mass index (BMI) of 34.0 to 34.9 in adult ARI[place] (obstructive sleep apnea) Expected: 10/26/2022 (Approximate), Expires: 05/27/2023 [facility] Comment on above: Expected: 10/26/2022 (Approximate), Expi res: 05/27/2023 Start: 10-26-2022 End: 05-27-2023 Zinc Zinc Lab Routine Intestinal malabsorption, unspecified type Deficiency of multiple nutrient elements High cholesterol Type 2 diabetes mellitus without complication, unspecified whether terminal block assembler insulin use (HCC) Class 1 obesity due to excess calories with serious comorbidity and body mass index (BMI) of 34.0 to 34.9 in adult [place] (obstructive sleep apnea) Expected: 10/26/2022 (Approximate), Expires: 05/27/2023 [facility] Comment on above: Expected: 10/26/2022 (Approximate), Expi res: 05/27/2023 Start: 10-16-2022 Influenza vaccination [facility] Start: 09-30-2022 End: 11-30-2022 Chronic hepatitis differentiation between hepatitis B and C virus panel - Serum or Plasma HEP REMOTE PANEL BL Lab Routine Elevated liver enzymes Expected: 09/30/2022, Expires: 11/30/2022 [facility] Work Phone: Comment on above: Expected: 09/30/2022, Expires: 3 Start: 09-30-2022 End: 11-30-2022 Hemoglobin A1c in Blood HGB A1C Lab Routine Diabetes mellitus type 2 (HCC) Expected: 09/30/2022, Expires: 11/30/2022 [facility] Work Phone: Comment on above: Expected: 09/30/2022, Expires: 3 Start: 09-30-2022 End: 11-30-2022 Hepatic function 2000 panel - Serum or Plasma HEPATIC FUNCTION PNL Lab Routine Elevated liver enzymes Expected: 09/30/2022, Expires: 11/30/2022 [facility] Work Phone: Comment on above: Expected: 09/30/2022, Expires: 3 Start: 09-10-2022 Hemoglobin A1c/Hemoglobin.total in Blood HBA1C [facility] Start: 08-31-2022 Hemoglobin A1c/Hemoglobin.total in Blood HBA1C [facility] Start: 08-25-2022 End: 11-25-2022 25-hydroxyvitamin D3 [Mass/volume] in Serum or Plasma Vitamin D 25 hydroxy Lab Routine Intestinal malabsorption, unspecified type Deficiency of multiple nutrient elements High cholesterol Type 2 diabetes mellitus without complication, unspecified whether fci insulin use (HCC) Class 1 obesity due to excess calories with serious comorbidity and body mass index (BMI) of 34.0 to 34.9 in adult ARIANA (obstructive sleep apnea) Expected: 08/25/2022 (Approximate), Expires: 11/25/2022 [facility] Comment on above: Expected: 08/25/2022 (Approximate), Expi res: 11/25/2022 Start: 08-25-2022 End: 11-25-2022 CBC panel - Blood by Automated count CBC Lab Routine Intestinal malabsorption, unspecified type Deficiency of multiple nutrient elements High cholesterol Type 2 diabetes mellitus without complication, unspecified whether terminal block assembler insulin use (HCC) Class 1 obesity due to excess calories with serious comorbidity and body mass index (BMI) of 34.0 to 34.9 in adult ARIANA (obstructive sleep apnea) Expected: 08/25/2022 (Approximate), Expires: 11/25/2022 [facility] Comment on above: Expected: 08/25/2022 (Approximate), Expi res: 11/25/2022 Start: 08-25-2022 End: 11-25-2022 Ferritin [Mass/volume] in Serum or Plasma Ferritin Lab Routine Intestinal malabsorption, unspecified type Deficiency of multiple nutrient elements High cholesterol Type 2 diabetes mellitus without complication, unspecified whether terminal block assembler insulin use (HCC) Class 1 obesity due to excess calories with serious comorbidity and body mass index (BMI) of 34.0 to 34.9 in adult ARIANA (obstructive sleep apnea) Expected: 08/25/2022 (Approximate), Expires: 11/25/2022 [facility] Comment on above: Expected: 08/25/2022 (Approximate), Expi res: 11/25/2022 Start: 08-25-2022 End: 11-25-2022 Iron and Iron binding capacity panel - Serum or Plasma Iron Lab Routine Intestinal malabsorption, unspecified type Deficiency of multiple nutrient elements High cholesterol Type 2 diabetes mellitus without complication, unspecified whether fci insulin use (HCC) Class 1 obesity due to excess calories with serious comorbidity and body mass index (BMI) of 34.0 to 34.9 in adult ARIANA (obstructive sleep apnea) Expected: 08/25/2022 (Approximate), Expires: 11/25/2022 [facility] Comment on above: Expected: 08/25/2022 (Approximate), Expi res: 11/25/2022 Start: 08-11-2022 ANNUAL PCP TEAM CHRONIC DISEASE VISIT ANNUAL PCP TEAM CHRONIC DISEASE VISIT [facility] Start: 07-31-2022 Ambulation without limitation [facility] Start: 07-31-2022 Medical regimen orders management [facility] Start: 07-31-2022 Medication education [facility] Start: 07-31-2022 Patient discharge [facility] Start: 07-31-2022 Taking patient vital signs [facility] Start: 07-31-2022 Vital signs measurements [facility] Start: 07-31-2022 [facility] Start: 07-30-2022 Hemoglobin A1c measurement A1C test (Diabetic or Prediabetic) [facility] Start: 07-30-2022 Hepatitis B screening URINE ALBUMIN:CREATININE RATIO [facility] Start: 07-30-2022 Urine screening for protein Diabetic microalbuminuria test [facility] Start: 06-16-2022 End: 09-16-2022 Comprehensive metabolic 1998 panel - Serum or Plasma Comprehensive metabolic panel Lab Routine Intestinal malabsorption, unspecified type Expected: 06/16/2022 (Approximate), Expires: 09/16/2022 [facility] Work Phone: Comment on above: Expected: 06/16/2022 (Approximate), Expi res: 09/16/2022 Start: 06-16-2022 End: 09-16-2022 Zinc Zinc Lab Routine Intestinal malabsorption, unspecified type Expected: 06/16/2022 (Approximate), Expires: 09/16/2022 [facility] Comment on above: Expected: 06/16/2022 (Approximate), Expi res: 09/16/2022 Start: 06-14-2022 End: 12-15-2022 PELVIC US WHI PELVIC US WHI Anc Imaging Routine Cyst of right ovary Expected: 06/14/2022, Expires: 12/15/2022 [facility] Work Phone: Comment on above: Expected: 06/14/2022, Expires: Start: 06-11-2022 Hemoglobin A1c/Hemoglobin.total in Blood HBA1C [facility] Start: 06-04-2022 ANNUAL PCP TEAM CHRONIC DISEASE VISIT ANNUAL PCP TEAM CHRONIC DISEASE VISIT [facility] Start: 05-27-2022 Hepatitis C antibody, confirmatory test DILATED RETINAL EXAM [facility] Start: 05-26-2022 End: 05-26-2022 Patient encounter procedure 05/26/2022 Office Visit Jasbir Clement MD [address] [place], [place] [id number] [facility] [place] Start: 05-08-2022 ANNUAL PCP TEAM CHRONIC DISEASE VISIT ANNUAL PCP TEAM CHRONIC DISEASE VISIT [facility] Start: 04-29-2022 Creatinine measurement Creatinine monitoring [facility] Start: 04-29-2022 Hemoglobin A1c measurement [facility] Start: 04-29-2022 Potassium monitoring Pot[facility] monitoring [facility] Start: 04-15-2022 COVID-19 VACCINE (6 - Moderna series) COVID-19 VACCINE (6 - Moderna series) [facility] Start: 04-08-2022 Screening for malignant neoplasm of breast Breast cancer screen [facility] Start: 04-03-2022 Mammography MAMMOGRAM [facility] Start: 2022 ADVANCE DIRECTIVE DISCUSSION ADVANCE DIRECTIVE DISCUSSION [facility] Start: 2022 BONE DENSITY BONE DENSITY [facility] Start: 2022 Screening for osteoporosis Bone Density Screening [facility] Start: 03-03-2022 End: 05-03-2022 Hemoglobin A1c in Blood [facility] Work Phone: Comment on above: Expected: 03/03/2022, Expires: 3 Start: 02-15-2022 DEPRESSION ASSESSMENT DEPRESSION ASSESSMENT [facility] Start: 01-29-2022 Hemoglobin A1c/Hemoglobin.total in Blood HBA1C [facility] Start: 11-28-2021 End: 11-28-2021 Patient encounter procedure 11/28/2021 Office Visit Marleni Canales APRN - NP [address] [place], [place] [id number] [facility] Start: 11-25-2021 End: 01-25-2022 Lipid 1996 panel - Serum or Plasma LIPID PANEL BASIC Lab Routine Hyperlipidemia with target LDL less than 70 Expected: 11/25/2021, Expires: 01/25/2022 [facility] Work Phone: Comment on above: Expected: 11/25/2021, Expires: 2 Start: 11-25-2021 End: 01-25-2022 SCHEDULE LAB TESTING SCHEDULE LAB TESTING Lab Routine Expected: 11/25/2021, Expires: 01/25/2022 [facility] Work Phone: Comment on above: Expected: 11/25/2021, Expires: 2 Start: 11-15-2021 Hepatitis B surface antibody level LDL CHOLESTEROL [facility] Start: 10-30-2021 Hemoglobin A1c/Hemoglobin.total in Blood HBA1C [facility] Start: 10-16-2021 Influenza vaccination [facility] Start: 10-13-2021 End: 12-13-2021 TYPE AND SCREEN,30 DAY [facility] Work Phone: Comment on above: Expected: 10/13/2021, Expires: 2 Start: 08-29-2021 End: 08-29-2021 Patient encounter procedure 08/29/2021 Office Visit Bariatrics Marleni Loo, DRY HEAT CABINET ATTENDANT - GEOTECHNICAL ENGINEERING TECHNICIAN [address] [facility] [address] [place] [address] [facility] Start: 08-28-2021 COVID-19 VACCINE (5 - Booster for Moderna series) COVID-19 VACCINE (5 - Booster for Moderna series) [facility] Start: 08-21-2021 Hepatitis B screening URINE ALBUMIN:CREATININE RATIO [facility] Start: 07-30-2021 Hemoglobin A1c measurement Diabetes: Hemoglobin A1C [facility] Start: 07-29-2021 End: 09-28-2021 SCHEDULE LAB TESTING SCHEDULE LAB TESTING Lab Routine Expected: 07/29/2021, Expires: 09/28/2021 [facility] Work Phone: Comment on above: Expected: 07/29/2021, Expires: Start: 07-01-2021 End: 07-01-2021 Patient encounter procedure 07/01/2021 Office Visit Bariatrics Jasbir Iyer MD [address] [place] [address] [facility] Start: 06-03-2021 End: 06-03-2021 Patient encounter procedure 06/03/2021 Office Visit Bariatrics Jasbir Iyer MD [address] [place] [address] [facility] Start: 05-28-2021 End: 05-28-2021 Patient encounter procedure 05/28/2021 Appointment General Surgery Jasbir Iyer MD [address] [place] [address] [facility] General Surgery Start: 05-21-2021 End: 05-21-2021 Patient encounter procedure 05/21/2021 Appointment Pre-Admission Testing Jasbir Iyer MD [address] [place] [address] [facility] Pre-Admit [facility] Start: 05-08-2021 Hepatitis C antibody, confirmatory test DILATED RETINAL EXAM [facility] Start: 04-18-2021 COVID-19 VACCINE (4 - Booster for Moderna series) COVID-19 VACCINE (4 - Booster for Moderna series) [facility] Start: 04-15-2021 Adult depression screening assessment DEPRESSION SCREENING [facility] Start: 03-03-2021 End: 03-03-2021 Patient encounter procedure 03/03/2021 Office Visit Weight Management Marleni Loo APRN - MANUEL [address] [place] [address] [facility] Bariatric Care [facility] Start: 02-15-2021 DEPRESSION ASSESSMENT DEPRESSION ASSESSMENT [facility] Start: 02-03-2021 End: 02-03-2021 Patient encounter procedure 02/03/2021 Office Visit Weight Management Marleni Loo APRN - NP [address] [place], [place] [phone] [facility] Start: 01-01-2021 End: 01-01-2021 Patient encounter procedure 01/01/2021 Office Visit Weight Management Stephen Peterson MD [address] [place], [place] [phone] [facility] Start: 11-29-2020 End: 11-29-2020 Patient encounter procedure 11/29/2020 Office Visit Weight Management Stephen Peterson MD [address] [place], [place] [phone] [facility] Start: 10-30-2020 COVID-19 Vaccine (3 - Booster for Moderna series) COVID-19 Vaccine (3 - Booster for Moderna series) [facility] Start: 10-23-2020 End: 10-23-2020 Patient encounter procedure 10/23/2020 Office Visit Weight Management Stephen Peterson MD [address] [place], [place] [phone] [facility] Start: 10-16-2020 Influenza vaccination Flu vaccine (#1) [facility] Work Phone: Start: 09-25-2020 End: 09-25-2020 Patient encounter procedure 09/25/2020 Office Visit Weight Management Stephen Peterson MD [address] [place], [place] [phone] [facility] Start: 09-21-2020 PNEUMOCOCCAL (2 - PCV) PNEUMOCOCCAL (2 - PCV) [facility] ic Start: 09-21-2020 PNEUMOCOCCAL: 65+ (2 - PCV) PNEUMOCOCCAL: 65+ (2 - PCV) [facility] Start: 09-20-2020 3 comp foot exam completed DIABETIC FOOT EXAM [facility] Start: 09-03-2020 End: 09-03-2020 Patient encounter procedure 09/03/2020 Appointment IP Unit Jasbir Iyer MD [address] [place] [address] [phone] [facility] Start: 08-28-2020 End: 08-28-2020 Patient encounter procedure 08/28/2020 Office Visit Weight Management Stephen Peterson MD [address] [place], [place] [phone] [facility] Start: 08-07-2020 End: 08-07-2020 Office Visit [facility] Start: 07-25-2020 COVID-19 Vaccine (3 - Booster for Moderna series) COVID-19 Vaccine (3 - Booster for Moderna series) [facility] Start: 07-03-2020 End: 07-03-2020 Office Visit 07/03/2020 Office Visit Weight Management Stephen Peterson MD [address] [place], [place] [phone] [facility] Start: 06-06-2020 End: 06-06-2020 Office Visit 06/06/2020 Office Visit Bariatrics Lizzy May, MS, RD, LD [address] [place], [place] [phone] Bariatric [facility] [place] Start: 05-30-2020 COVID-19 Vaccine (2 - Moderna 2-dose series) COVID-19 Vaccine (2 - Moderna 2-dose series) [facility] Work Phone: Start: 04-26-2020 Annual Wellness Visit (AWV) Annual Wellness Visit (AWV) [facility] Start: 05-03-2017 MMR Vaccines (1 of 1 - Standard series) MMR Vaccines (1 of 1 - Standard series) [facility] Start: 2017 RSV Immunization aged 60 or older (1 - 1-dose 60+ series) RSV Immunization aged 60 or older (1 - 1-dose 60+ series) [facility] Start: 2017 RSV Vaccine (1 - 1-dose 60+ series) RSV Vaccine (1 - 1-dose 60+ series) [facility] Start: 2017 RSV Vaccine (1 - Risk 60-74 years 1-dose series) RSV Vaccine (1 - Risk 60-74 years 1-dose series) [facility] Start: 08-23-2014 HPV TESTING HPV TESTING [facility] Start: 08-23-2014 PAP TESTING PAP TESTING [facility] Start: 2007 Screening for malignant neoplasm of breast Breast cancer screen [facility] Work Phone: Start: 2007 Screening for malignant neoplasm of colon Colon cancer screen colonoscopy [facility] Work Phone: Start: 2002 COLOGUARD (FIT-DNA) COLOGUARD (FIT-DNA) [facility] Start: [address] COLONOGRAPHY [facility] Start: 2002 FECAL OCCULT BLOOD FECAL OCCULT BLOOD [facility] Start: 2002 Screening for malignant neoplasm of colon [facility] Start: 2002 SIGMOIDOSCOPY SIGMOIDOSCOPY [facility] Start: 1997 Screening for malignant neoplasm of breast Mammogram [facility] Start: 1987 Screening for malignant neoplasm of cervix [facility] Start: 1978 Screening for malignant neoplasm of cervix [facility] Start: 1976 Hepatitis A Vaccines (1 of 2 - Risk 2-dose series) Hepatitis A Vaccines (1 of 2 - Risk 2-dose series) [facility] Start: 1976 Urine screening for protein Diabetes: Urine Protein Screening [facility] Start: 1975 Depression Screening Depression Screening [facility] Start: 1975 Diabetic microalbuminuria test Diabetic microalbuminuria test [facility] Start: 1975 Diabetic retinal exam Diabetic retinal exam [facility] Start: 1975 Hepatitis C screening [facility] Start: 1975 Urine screening for protein Diabetic microalbuminuria test [facility] Start: 1972 HIV screening HIV screen [facility] Start: 1969 COVID-19 Vaccine (1) COVID-19 Vaccine (1) [facility] Start: 1969 Depression Screen Depression Screen [facility] Start: 1969 Depression Screening Depression Screening [facility] Start: 1967 Diabetic foot examination [facility] Start: 1967 Diabetic retinal exam Diabetic retinal exam [facility] Start: 1967 Glaucoma screening Diabetes: Retinopathy Screening [facility] Start: 1967 HbA1c (Bld) [Mass fraction] A1C test (Diabetic or Prediabetic) [facility] Work Phone: Start: 1967 Hemoglobin A1c measurement A1C test (Diabetic or Prediabetic) [facility] Start: 1967 Lipid panel [facility] Start: 1967 Preventive dental service Diabetes: Dental Exam [facility] Start: 1962 COVID-19 Vaccine (1) COVID-19 Vaccine (1) [facility] Start: 1957 Annual wellness visit Medicare Initial Physical (IPPE) [facility] Start: 1957 Annual Wellness Visit (AWV) Annual Wellness Visit (AWV) [facility] Start: 1957 Creatinine measurement Creatinine monitoring [facility] Start: 1957 Hepatitis C screening Hepatitis C screen [facility] Start: 1957 HIV screening HIV Screening [facility] Start: 1957 Lipid panel Lipid Panel [facility] Start: 1957 Medicare Advantage Annual Wellness Visit (AWV) Medicare Advantage Annual Wellness Visit (AWV) [facility] Start: 1957 Potassium monitoring Potassium monitoring [facility] Start: 1957 Screening for malignant neoplasm of colon [facility] Start: 1957 Screening for osteoporosis Bone Density Scan [facility] End: 02-18-2025 BD DXA TRABECULAR BONE SCORE (TBS) BD DXA TRABECULAR BONE SCORE (TBS) Radiology Routine Asymptomatic menopause 1 Occurrences starting 01/20/2024 until 02/18/2025 [facility] Comment on above: 1 Occurrences starting 01/20/2024 until 02/18/2025 End: 12-12-2022 Ct pelvis w/contrast material CT PELVIS W IVCON Radiology Routine Other intra-abdominal and pelvic swelling, mass and lump 1 Occurrences starting 11/12/2021 until 12/12/2022 [facility] Work Phone: Comment on above: 1 Occurrences starting 11/12/2021 until 12/12/2022 End: 11-19-2021 Ct pelvis w/contrast material [facility] Work Phone: Comment on above: 1 Occurrences starting 11/19/2021 until 11/19/2021 End: 02-18-2025 DBT Breast - bilateral screening ANGELITA SCREENING W TEOFILO Radiology Routine Encounter for screening mammogram for breast cancer 1 Occurrences starting 01/20/2024 until 02/18/2025 [facility] Work Phone: Comment on above: 1 Occurrences starting 01/20/2024 until 02/18/2025 End: 02-18-2025 DXA Skeletal system.axial Views for bone density DXA-AXIAL SKELETON Radiology Routine Asymptomatic menopause 1 Occurrences starting 01/20/2024 until 02/18/2025 [facility] Comment on above: 1 Occurrences starting 01/20/2024 until 02/18/2025 End: 03-10-2023 Echocardiography ECHO Cardiology Routine Nocturnal hypoxemia SOB (shortness of breath) 1 Occurrences starting 03/10/2022 until 03/10/2023 [facility] Work Phone: Comment on above: 1 Occurrences starting 03/10/2022 until 03/10/2023 End: 10-23-2020 H. pylori antigen H. pylori antigen Lab Routine Once for 1 Occurrences starting 10/23/2020 until 10/23/2020 [facility] Work Phone: Comment on above: Once for 1 Occurrences starting 10/24/19 until 10/23/2020 H. pylori antigen H. pylori anti gen Lab Routine 10/23/2020 7:50 AM EDT [facility] Work Phone: End: 04-09-2023 LUNG DIFFUSION CAPACITY (DLCO) LUNG DIFFUSION CAPACITY (DLCO) PFT Routine Nocturnal hypoxemia 1 Occurrences starting 03/10/2022 until 04/09/2023 [facility] Work Phone: Comment on above: 1 Occurrences starting 03/10/2022 until 04/09/2023 LUNG DIFFUSION CAPAC ITY (DLCO) LUNG DIFFUSION CAPACITY (DLCO) PFT Routine Nocturnal hypoxemia 09/14/2022 9:26 AM EDT [facility] Work Phone: End: 04-09-2023 LUNG VOLUMES LUNG VOLUMES PFT Routine Nocturnal hypoxemia 1 Occurrences starting 03/10/2022 until 04/09/2023 [facility] Work Phone: Comment on above: 1 Occurrences starting 03/10/2022 until 04/09/2023 LUNG VOLUMES LUNG VOLUMES PFT Routine Nocturnal hypoxemia 09/14/2022 9:26 AM EDT [facility] Work Phone: End: 04-12-2023 ANGELITA SCREENING ANGELITA SCREENING Radiology Routine Breast cancer screening by mammogram 1 Occurrences starting 03/13/2022 until 04/12/2023 [facility] Work Phone: Comment on above: 1 Occurrences starting 03/13/2022 until 04/12/2023 End: 05-14-2024 MG Breast Screening ANGELITA SCREENING Radiology Routine Encounter for screening mammogram for malignant neoplasm of breast 1 Occurrences starting 04/15/2023 until 05/14/2024 [facility] Work Phone: Comment on above: 1 Occurrences starting 04/15/2023 until 05/14/2024 End: 04-24-2024 MG Breast Screening [facility] Work Phone: Comment on above: ONCE for 1 Occurrences starting 04/25/19 until 04/24/2024 End: 12-11-2022 Mri pelvis w/o & w/contrast material MRI FEMALE PELVIS WO/W IVCON Radiology FELICIA Other intra-abdominal and pelvic swelling, mass and lump 1 Occurrences starting 11/11/2021 until 12/11/2022 [facility] Work Phone: Comment on above: 1 Occurrences starting 11/11/2021 until 12/11/2022 OXIMETRY - NOCTURNAL OXIMETRY - NOCTURNAL Procedures Routine Nocturnal hypoxemia Ordered: 04/23/2023 [facility] Work Phone: Comment on above: Ordered: 04/23/2023 Patient referral [facility] Work Phone: PT PLAN OF CARE CERTIFICATION PT PLAN OF CARE CERTIFICATION Procedures Routine Primary osteoarthritis of left knee Ordered: 11/21/2021 [facility] Work Phone: Comment on above: Ordered: 11/21/2021 PT PLAN OF CARE CERTIFICATION PT PLAN OF CARE CERTIFICATION Procedures Routine Primary osteoarthritis of left knee Ordered: 01/12/2022 [facility] Work Phone: Comment on above: Ordered: 01/12/2022 End: 04-09-2023 SPIROMETRY BASELINE ONLY SPIROMETRY BASELINE ONLY PFT Routine Nocturnal hypoxemia 1 Occurrences starting 03/10/2022 until 04/09/2023 [facility] Work Phone: Comment on above: 1 Occurrences starting 03/10/2022 until 04/09/2023 SPIROMETRY BASELINE ONLY SPIROME TRY BASELINE ONLY PFT Routine Nocturnal hypoxemia 09/14/2022 9:26 AM EDT [facility] Work Phone: End: 09-03-2020 Surgical Pathology Surgical Pathology Lab Routine Once for 1 Occurrences starting 09/03/2020 until 09/03/2020 [facility] Work Phone: Comment on above: Once for 1 Occurrences starting 09/04/19 until 09/03/2020 Surgical Pathology Surgical Path ology Lab Routine 09/03/2020 1:35 PM EDT [facility] Work Phone: End: 11-11-2023 US ABD RIGHT UPPER QUADRANT US ABD RIGHT UPPER QUADRANT Radiology Routine Elevated liver enzymes 1 Occurrences starting 10/12/2022 until 11/11/2023 [facility] Work Phone: Comment on above: 1 Occurrences starting 10/12/2022 until 11/11/2023 End: 10-09-2022 XR KNEE GENERAL 4V AP BOTH/PA BOTH/LAT/MERC LEFT XR KNEE GENERAL 4V AP BOTH/PA BOTH/LAT/MERC LEFT Radiology Routine Left knee pain, unspecified chronicity 1 Occurrences starting 09/09/2021 until 10/09/2022 [facility] Work Phone: Comment on above: 1 Occurrences starting 09/09/2021 until 10/09/2022 End: 12-06-2022 XR KNEE GENERAL 4V AP BOTH/PA BOTH/LAT/MERC LEFT XR KNEE GENERAL 4V AP BOTH/PA BOTH/LAT/MERC LEFT Radiology Routine Primary osteoarthritis of left knee S/P total knee arthroplasty, left 1 Occurrences starting 11/06/2021 until 12/06/2022 [facility] Work Phone: Comment on above: 1 Occurrences starting 11/06/2021 until 12/06/2022 End: 08-13-2024 XR Shoulder - left 3 Views XR SHOULDER GENERAL 3V OR MORE AP/TRUE AP/OTHER LEFT Radiology Routine Chronic left shoulder pain 1 Occurrences starting 07/15/2023 until 08/13/2024 [facility] Work Phone: Comment on above: 1 Occurrences starting 07/15/2023 until 08/13/2024 XR Shoulder - left 3 Views XR SHOULDER GENERAL 3V OR MORE AP/TRUE AP/OTHER LEFT Radiology Routine Chronic left shoulder pain 07/15/2023 10:44 AM EDT [facility] End: 02-12-2024 XR TIBIA FIBULA 2V AP/LAT RIGHT XR TIBIA FIBULA 2V AP/LAT RIGHT Radiology Routine Bone anomaly 1 Occurrences starting 01/13/2023 until 02/12/2024 [facility] Work Phone: Comment on above: 1 Occurrences starting 01/13/2023 until 02/12/2024 [facility] Immunizations Immunization Date Immunization Notes Care Provider Antonia jon 11-09-2023 COVID-19 original vaccine, age 12+ yr, monovalent (PFIZER-BIONTECH - RODRIGUEZ TOP) Modesta Daley MD Work Phone: [facility] [facility] 11-09-2023 influenza (HD-IIV4) vaccine, age 65+ yr, high dose, quadrivalent, PF (FLUZONE HIGH-DOSE) Modesta Daley MD Work Phone: [facility] 11-09-2023 influenza virus vacc ine, unspecified formulation Modesta Daley MD Work Phone: [facility] 10-13-2022 influenza virus vacc ine, unspecified formulation Modesta Daley MD Work Phone: [facility] 09-26-2021 influenza virus vacc ine, unspecified formulation Aruna Rojas RD Work Phone: [facility] 10-03-2020 influenza, seasonal, injectable Modesta Daley MD Work Phone: [facility] 10-03-2020 tetanus toxoid, redu wayne diphtheria toxoid, and acellular pertussis vaccine, adsorbed Modesta Daley MD Work Phone: [facility] 10-03-2020 influenza virus vacc ine, unspecified formulation Katerine Padgett RD Work Phone: [facility] 10-02-2020 influenza, injectabl e, quadrivalent, preservative free Nelida Aguirre MA [facility] 10-02-2020 influenza, seasonal, injectable Modesta Daley MD Work Phone: [facility] 10-02-2020 tetanus toxoid, redu wayne diphtheria toxoid, and acellular pertussis vaccine, adsorbed Modesta Daley MD Work Phone: [facility] 05-30-2020 COVID-19 vaccine, fu ll dose (MODERNA) Modesta Daley MD Work Phone: [facility] Work Phone: 05-02-2020 COVID-19 vaccine, fu ll dose (MODERNA) Modesta Daley MD Work Phone: [facility] Work Phone: 01-01-2020 zoster vaccine recombinant Modesta Daley MD Work Phone: [facility] Work Phone: 10-02-2019 influenza, injectabl e, quadrivalent, preservative free Modesta Daley MD Work Phone: [facility] Work Phone: 09-22-2019 pneumococcal polysaccharide vaccine, 23 valent Modesta Daley MD Work Phone: [facility] Work Phone: 09-22-2019 tetanus toxoid, redu wayne diphtheria toxoid, and acellular pertussis vaccine, adsorbed Modesta Daley MD Work Phone: [facility] Work Phone: 09-22-2019 zoster vaccine recombinant Modesta Daley MD Work Phone: [facility] Work Phone: 09-21-2018 influenza, injectabl e, quadrivalent, preservative free Modesta Daley MD Work Phone: [facility] 10-20-2017 influenza, injectabl e, quadrivalent, preservative free Modesta Daley MD Work Phone: [facility] Work Phone: 06-30-2017 hepatitis B vaccine, adult dosage Modesta Daley MD Work Phone: [facility] 04-05-2017 zoster vaccine, live Modesta Daley MD Work Phone: [facility] 01-27-2017 hepatitis B vaccine, adult dosage Modesta Daley MD Work Phone: [facility] Work Phone: 12-28-2016 hepatitis B vaccine, adult dosage Modesta Daley MD Work Phone: [facility] Work Phone: 10-05-2016 influenza, injectabl e, quadrivalent, contains preservative Modesta Daley MD Work Phone: [facility] Work Phone: 10-05-2016 influenza, injectabl e, quadrivalent, preservative free Modesta Daley MD Work Phone: [facility] Work Phone: 10-25-2015 influenza, seasonal, injectable Modesta Daley MD Work Phone: [facility] 10-23-2015 influenza, injectabl e, quadrivalent, preservative free Modesta Daley MD Work Phone: [facility] Work Phone: 10-21-2015 Influenza virus vaccine [facility] 10-21-2015 influenza, seasonal, injectable, preservative free Nelida Aguirre MA [facility] 10-13-2014 influenza virus vacc ine, whole virus Modesta Daley MD Work Phone: [facility] 10-13-2014 influenza, seasonal, injectable, preservative free Modesta Daley MD Work Phone: [facility] Work Phone: 10-13-2014 pneumococcal conjuga te vaccine, 13 valent Modesta Daley MD Work Phone: [facility] 10-13-2014 pneumococcal polysaccharide vaccine, 23 valent Modesta Daley MD Work Phone: [facility] 09-28-2013 influenza virus vacc ine, whole virus Modesta Daley MD Work Phone: [facility] Work Phone: 03-28-2013 pneumococcal polysaccharide vaccine, 23 valent Modesta Daley MD Work Phone: [facility] 12-10-2012 tetanus toxoid, redu wayne diphtheria toxoid, and acellular pertussis vaccine, adsorbed Modesta Daley MD Work Phone: [facility] Work Phone: 11-04-2012 influenza virus vacc ine, unspecified formulation Modesta Daley MD Work Phone: [facility] Work Phone: Payers Date Payer Category Payer Medicaid [id number] 2023 Medicaid [id number] 2022 Medicaid [id number] 2022 Self-pay [id number] 2021 Medicare [id number] 2021 Medicare (Managed Care) [facility]EL Byrnes [facility] [id number] 2021 [facility] Insurance [facility] MEDICARE [id number] 2021 Unknown ANTHEM BLUE CROS S AND BLUE SHIELD ANTHEM MEDIBLUE HMO [id number] 2021-Present [phone] [address] [place] [address] HMO [id number] 2021 Medicare [id number] 2021 Medicare [id number] 2020 Unknown [id number] 2001 Medicare [id number] 1957 Unknown [id number]. 668 1957 Unknown [id number]. 8 1957 Unknown [id number] 668 1957 Unknown [id number]. 8 1957 Unknown [id number] 8 1957 Unknown [id number]. 8 1957 Unknown [id number]. 8 1957 Unknown [id number]. Unknown ANTHEM EXCHG HMO [id number] Unknown [id number] 462 Unknown [id number] 462 Unknown [id number] 462 Social History Date Type Detail Facility Start: 05-22-2020 End: 10-25-2023 Tobacco smoking status MIIS Former smoker [facility] Phone: Start: 04-25-1985 End: 04-25-1988 History of tobacco use Current smoker [facility] Phone: Start: 05-22-2020 End: 10-25-2023 Tobacco use and exposure Never used [facility] Phone: Start: 05-22-2020 End: 05-01-2024 Alcohol intake Ex-drinker (finding) [facility] Phone: Start: 1955 Sex Assigned At Not on file [facility] Work Phone: Start: 08-28-2020 End: 05-26-2022 Exposure to SARS-CoV-2 (event) Not sure [facility] Start: 11-11-2012 End: 07-01-2022 Cigarettes smoked current (pack per day) - Reported 0.1 [facility] Start: 05-30-2020 End: 05-08-2021 Alcohol intake Current non-drinker of alcohol (finding) [facility] Start: 03-09-2019 End: 04-15-2020 History SDOH Alcohol Frequency 1 [facility] Start: 03-09-2019 History SDOH Alcohol Std Drinks 98 [facility] Start: 08-24-2019 History SDOH Social Connections Phone 5 [facility] Start: 08-24-2019 End: 10-29-2021 History SDOH Social Connections Get Together 3 [facility] Start: 03-09-2019 History SDOH Social Connections Living 7 [facility] Start: 03-09-2019 History SDOH Physica l Activity DPW 0 [facility] Start: 03-09-2019 End: 10-29-2021 History SDOH Financial 2 [facility] Start: 03-09-2019 Education 12 [facility] Start: 04-25-2013 End: 10-13-2021 Tobacco Comment No smoking in childhood home. Roomate of last 10 years smoked while living with patient. [facility] Start: 04-25-1985 End: 04-25-1988 History of tobacco use Cigarette Smoker [facility] Work Phone: Start: 12-08-2020 End: 07-24-2022 Tobacco smoking status NHIS Unknown if ever smoked [facility] Start: 03-17-2016 None [facility] Start: 03-17-2016 Non-smoker [facility] Start: 1955 Sex Assigned At Female [facility] Start: 05-26-2022 End: 07-01-2022 Tobacco use panel [facility] Start: 01-17-2012 Attends [employer] Not on file [facility] How often to you hav e a drink containing alcohol? Never [facility] How hard is it for y ou to pay for the very basics like food, housing, medical care, and heating Somewhat hard [facility] Do you feel stress - tense, restless, nervous, or anxious, or unable to sleep at night because your mind is troubled all the time - these days [OSQ] To some extent [facility] (I/We) worried wheth er (my/our) food would run out before (I/we) got money to buy more. Never true [facility] In the past 12 month s, was there a time when you were not able to pay the mortgage or rent on time? No [facility] Start: 05-28-2020 Gender identity Identifies as female gender (finding) [facility] How hard is it for y ou to pay for the very basics like food, housing, medical care, and heating Hard [facility] NEGATED: Highlighted row [facility] Medical Equipment Procedure Code Equipment Code Equipment Origin al Text Equipment Identifier Dates [facility] Pranay d Cont Restor - [id number] Start: 07-08-2016 Lead Kit Tined Interstim 3889 - [id number] Start: 06-19-2013 Nrstm Imp 51x7.5 x43mm Intstm - [id number] Start: 07-03-2013 Kit Intstm Nrstm Spnl Cord 60 - [id number] Start: 07-03-2013 Neurostimulator Interstim Ii 10-14hz 0-4v Thk.3in 2inx1.7in Implantable 4 - [id number] Start: 08-26-2016 Comment on above: Description: PIN # [id number], [id number], [id number], [id number], [id number] Start: 12-10-2014 End: 07-15-2023 Comment on above: Test Four times a day. Insulin Dep? Yes E11.9 DM 2 Test blood sugar(s) 4 times daily. Dx: Type 2 DM - Uncontrolled E11.65 Insulin: Yes UAD to inject insuli ns 5 times daily. With [employer] fastcl ix lancing device. Check sugars 4x/day Dx: e11.65 Insulin: Yes Use to inject insuli n once daily Component Tritan ium 29mm Metal 9mm Patellar Asymmetric Knee - [id number] Start: 10-29-2021 Component Triath yola 3 Pa Femoral Cruciate Retain Bead Knee Left - [id number] Start: 10-29-2021 Baseplate Triath rand 3 Tritanium 44mm 67mm Tibial Sterile Latex Free - [id number] Start: 10-29-2021 Insert Triathlon 3 11mm Tibial Bearing Condylar Stabilize Sterile Knee - [id number] Start: 10-29-2021 Goals Date Patient Goal Desired Activity /State Functional Status Date Assessment Result Facility 10-30-2021 Are you deaf, or do you have serious difficulty hearing No 10/30/2021 5:31 PM She De Luna RN No [facility] 10-30-2021 Are you blind, or do you have serious difficulty seeing, even when wearing glasses No 10/30/2021 5:31 PM She De Luna RN No [facility] 10-30-2021 Do you have serious difficulty walking or climbing stairs No 10/30/2021 5:31 PM EDT She Ignacio RN No [facility] 10-30-2021 Do you have difficul ty dressing or bathing No 10/30/2021 5:31 PM EDT She Ignacio RN No [facility] 10-30-2021 Because of a physica l, mental, or emotional condition, do you have difficulty doing errands alone such as visiting a physician's office or shopping No 10/30/2021 5:31 PM EDT She Ignacio RN No [facility] Mental Status Date Assessment Result Facility 07-31-2022 Cognitive function [facility] Work Phone: 07-31-2022 Cognitive function Patient Orien tation Person;Place;Time [facility] Work Phone: 10-30-2021 Because of a physica l, mental, or emotional condition, do you have serious difficulty concentrating, remembering, or making decisions No 10/30/2021 5:31 PM EDT She Ignacio RN No [facility] Clinical Notes 07-10-2016 to 12-12-2024 Telephone Encounter - Myriam Karimi RN - 10/19/2024 9:04 AM EDTTelephone Encounter - Myriam Karimi RN - 10/19/2024 9:04 AM EDTTelephone Encounter - Radha Spencer RN - 09/18/2024 3:37 PM EDT Note Date & Type Note Facility 12-12-2024 Note HNO ID: [id number] Author: MODESTA DALEY MD Service: ? Author Type: Physician Type: Progress Notes Filed: 12/12/2024 13:10 Note Text: Melanie Bird is a 69 year old female here for a Medicare Wellness visit. Medicare Health Risk Assessment General Health Good Exercise: Minutes/Day 10 min Exercise: Days/Week 7 days Alcohol: Daily Use Never Alcohol: Drinks/Day Patient does not drink Alcohol: 6 or more drinks Never Feel off balance Yes Concerns: Teeth/Dentures No Concerns: Sexual function No Troubled by feelings Lonely Frequency: Eating healthy diet More than half the days ADLs requiring help Grocery shopping; Cooking; Housework Safety precautions in home/vehicle Yes Smoke, vape, chews tobacco No Difficulty hearing Yes Difficulty seeing No Current Providers Specialists: I have reviewed specialist-related care of the patient in the medical record. Medical/Family history review Reviewed and updated problem list, medical/surgical/family/social history, medications, and allergies. Opioid use review Prescribed: No opioid use on file in the last 90 days Patient-reported: No opioid use on file in the last 90 days Depression screening PHQ-2 Score: 0 (12/12/2024 10:19 AM) Based on score and interview, patient is not at risk for depression. Recommendation: no further intervention at this time Anxiety screening Cognitive screening Mini Cog Score: 3 Cognitive screening reviewed and No further action needed (score 3-5). Functional Observation Was the patient's Timed Up AND Go test unsteady or >= 12 seconds? No Advance Directives Surrogate decision maker and/or advance care plan documented Measurements BP 122/70 Pulse 66 Wt 84 kg (185 lb 3.2 oz) LMP 04/10/2012 (Approximate) SpO2 97% BMI 31.79 kg/m? Vision Screening: Follows with optometry/ophthalmology Assessment/Plan Medicare annual wellness visit, subsequent (Z00.00) - Counseled on healthy diet and regular exercise - Fall avoidance information provided - Personalized prevention plan provided Reason for Visit Chronic medical condition review HPI Melanie Bird is a 69-year-old female with a history of obesity, ARIANA, incontinence, IBS, cholecystectomy, tremors, and DM, presenting for a Medicare Annual Wellness Visit. Melanie reports significant weight loss, which has allowed her to discontinue daytime oxygen use and CPAP therapy. However, she continues to use supplemental oxygen at night due to nocturnal desaturation as recommended by Dr. May. She also reports a history of incontinence, for which a magnetic device was previously implanted. The device was removed due to recurrent infections and poor wound healing, which was attributed to her body's rejection of the device as a foreign object. She continues to experience frequent diarrheasecondary to IBS and is unable to take antidiarrheal medication due to aprior cholecystectomy. She engages in daily 10-minute walks around her living area, using a cane for stability and always carrying a phone for safety. She reports eating a healthy diet more than half the days of the week, primarily consuming [employer] and [employer] dinners due to her inability to cook. She is able to perform her own grocery shopping with the assistance of her sister, Loenie Escalante, who helps her reach items and provides support to prevent falls. She requires assistance with housework and laundry, which is provided by a home health aide twice a week. She is able to bathe independently using a walk-in shower and shower chair, and can dress herself without assistance. She no longer drives and relies on her sister for transportation. Melanie is currently taking Ingrezza and amantadine for tremors, which she reports are effective for approximately 2 hours after administration but notes that the tremors worsen around 1500. She is also on insulin and semaglutide for DM management, with a recent HbA1c of 7.4%. Additional medications include acyclovir, a statin, clonidine, docusate as needed, Neurontin, Requip, Zoloft, and Ambien, which she takes nightly. She reports her memory as okay and manages her medications with the help of [employer], which provides monthly pre-packaged doses. SOCIAL HISTORY[1] Past medical history, appointments, medications, allergies reviewed. Pertinent Lab/Diagnostic Studies are reviewed and discussed today Current Outpatient Medications: atorvastatin (LIPITOR) 20 mg tablet sertraline (ZOLOFT) 100 mg tablet zolpidem (AMBIEN) 5 mg tablet semaglutide (OZEMPIC) 2 mg/dose (8 mg/3 mL) pen injector gabapentin (NEURONTIN) 600 mg tablet gabapentin (NEURONTIN) 300 mg capsule insulin glargine U-300 conc (TOUJEO SOLOSTAR U-300 INSULIN) 300 unit/mL (1.5 mL) fexofenadine (SEFERINO) 180 mg tablet carbamide peroxide (DEBROX) 6.5 % otic solution acyclovir (ZOVIRAX) 400 mg tablet rOPINIRole (REQUIP) 0.5 mg tablet Cholecalciferol, Vitamin D3, (V (more content not included)... [facility] 11-28-2024 Note Patient Outreach (IN TMMN) MELANIE BIRD ([id number]) 1955 F Date Time Provider Department 11/28/24 MODESTA DALEY During your visit today, we recorded the following information about you: Allergies As of Date: 11/28/2024 Noted Allergy Reaction SEROQUEL (QUETIAPINE FUMARATE) 11/15/2012 1 - Mental Status Change VICTOZA (LIRAGLUTIDE) 09/21/2013 8 - GI Upset Date Reviewed: 09/11/2024 Reviewed by: Kailey Diamond MA - Fully Assessed Visit Diagnoses:Diabetes mellitus type 2 (HCC) [E11.9] Hyperlipidemia with target LDL less than 70 [E78.5] Order(s):ALBUMIN/CREATININE RATIO, URINE [SQUACR] Order #: [id number] FUTURE LIPID PANEL, FASTING [SQLIPB] Order #: [id number] FUTURE Prescriptions as of 12/01/2024 - atorvastatin (LIPITOR) 20 mg tablet Take 1 tablet by mouth once daily. - sertraline (ZOLOFT) 100 mg tablet Take 1 tablet by mouth once daily. - zolpidem (AMBIEN) 5 mg tablet Take 1 tablet by mouth at bedtime as needed for sedation for up to 90 days. TAKE 1 TABLET BY MOUTH AT BEDTIME NEEDED FOR SEDATION Patient should start on November 28, 2024. - semaglutide (OZEMPIC) 2 mg/dose (8 mg/3 mL) pen injector Inject 2 mg subcutaneously one time a week. - gabapentin (NEURONTIN) 600 mg tablet Take 3 tablets by mouth daily at bedtime for 180 days. - gabapentin (NEURONTIN) 300 mg capsule Take 3 capsules by mouth daily at lunch - insulin glargine U-300 conc (TOUJEO SOLOSTAR U-300 INSULIN) 300 unit/mL (1.5 mL) Inject 20 Units subcutaneously every morning. - fexofenadine (SEFERINO) 180 mg tablet Take 1 tablet by mouth once daily. - carbamide peroxide (DEBROX) 6.5 % otic solution To be used as directed. 4-5 drops repeat every 1-2 hr if necessary. - acyclovir (ZOVIRAX) 400 mg tablet Take 1 tablet by mouth two times a day. - rOPINIRole (REQUIP) 0.5 mg tablet TAKE 1 TABLET BY MOUTH TWICE A DAY (NOON AND BEDTIME) - Cholecalciferol, Vitamin D3, (VITAMIN D-3) 50 mcg (2,000 unit) cap Take 1 capsule by mouth once daily. - magnesium oxide (MAG-OX) 400 mg (241.3 mg magnesium) tablet Take 2 tablets by mouth once daily. - ascorbic acid, vitamin C, (VITAMIN C) 500 mg tablet Take 1 tablet by mouth once daily. - amantadine HCl (SYMMETREL) 100 mg capsule Take 100 mg by mouth two times a day. - INGREZZA 80 mg capsule Take 1 capsule by mouth once daily. - diclofenac (VOLTAREN) 1 % topical gel Apply 2 g to affected area two times a day. - flash glucose sensor (FREESTYLE IZABELLA 2 SENSOR) kit Use to monitor blood sugars 4 times daily - polyethylene glycol 3350 17 gram/dose powder Take 17 g by mouth two times a day as needed for constipation. Drink a mix of 1 scoop in 8oz of water/beverage once daily as needed for constipation. - flash glucose scanning reader (FREESTYLE IZABELLA 2 READER) 1 Each four times daily. checking blood sugars DX E11.9 Insulin Yes - pen needle, diabetic (NOVOFINE PLUS) 32 gauge x 1/6 Use to inject insulin once daily - OXYGEN, HOME THERAPY, 2 L/min by Mask route daily at bedtime. CPAP 2L at night - cloNIDine HCl (CATAPRES) 0.1 mg tablet Take 1 tablet by mouth once daily. - omeprazole (PRILOSEC) 20 mg capsule Take 20 mg by mouth once daily. - blood sugar diagnostic (BLOOD GLUCOSE TEST) test strip Test Four times a day. Insulin Dep? Yes E11.9 DM 2 - calcium carbonate 600 mg-cholecalciferol 200 units (CALCARB 600 WITH VITAMIN D) 600 mg(1,500mg) -200 unit tab Take 1 tablet by mouth twice daily. - wheat dextrin (BENEFIBER SUGAR FREE, DEXTRIN,) 3 gram/4 gram powd 1/2 tablespoon per day x2 weeks. Then increase by 1/2 tablespoon every 2 weeks until you are taking 3 tablespoons per day in divided doses. - docusate sodium (COLACE) 100 mg capsule Take 1 capsule by mouth twice daily as needed for Constipation. - COMPOUNDED PRESCRIPTION Oxygen supplies dx: R79.81 R06.02 - blood sugar diagnostic (Tinsel CinemaTOUCH ULTRA TEST) test strip Test blood sugar(s) 4 times daily. Dx: Type 2 DM - Uncontrolled E11.65 Insulin: Yes Problem List As Of Date 11/28/2024 Noted Resolved Diabetes mellitus type 2 (HCC) [E11.9] 11/15/2012 PTSD (post-traumatic stress disorder) [F43.10] 11/15/2012 Schizoaffective disorder [F25.9] 11/15/2012 06/23/2016 Parkinson disease (HCC) [G20.A1] 11/15/2012 12/03/2017 RLS (restless legs syndrome) [G25.81] 11/22/2012 Wheezing [R06.2] 11/29/2012 08/12/2016 Movement disorder [G25.9] 12/28/2012 08/12/2016 Low oxygen saturation [R79.81] 12/28/2012 Schizophrenia (HCC) [F20.9] 01/04/2013 02/06/2014 Tardive dyskinesia [G24.01] 01/04/2013 Hyperlipidemia with target LDL less than 70 [E7*01/04/2013 Nausea [R11.0] 02/09/2013 08/12/2016 SOB (shortness of breath) on exertion [R06.02] 02/09/2013 08/12/2016 Urinary incontinence [R32] 02/09/2013 03/28/2013 ARIANA (obstructive sleep apnea) [G47.33] 03/06/2013 Urgency of urination [R39.15] 03/09/2013 07/11/2013 Frequency of uri (more content not included)... [facility] 10-19-2024 Telephone encounter Note The patient has been identified by name and date of : Yes Caregiver verified no other encounters exist for this prescription request: Yes Caregiver confirmed with patient/requestor that no other refills are due, in the near future, with this provider at this time: Yes The last office visit in the department: 09/11/2024 Does the patient have a future office visit with this provider/department: Yes 12/12/2024 Requested Prescriptions Pending Prescriptions Disp Refills gabapentin (NEURONTIN) 600 mg tablet 90 tablet 5 Sig: Take 3 tablets by mouth daily at bedtime for 180 days. gabapentin (NEURONTIN) 300 mg capsule 90 capsule 5 Sig: Take 3 capsules by mouth daily at lunch Myriam Karimi RN [facility] 10-19-2024 Miscellaneous Notes The patient has been identified by name and date of : Yes Caregiver verified no other encounters exist for this prescription request: Yes Caregiver confirmed with patient/requestor that no other refills are due, in the near future, with this provider at this time: Yes The last office visit in the department: 09/11/2024 Does the patient have a future office visit with this provider/department: Yes 12/12/2024 Requested Prescriptions Pending Prescriptions Disp Refills gabapentin (NEURONTIN) 600 mg tablet 90 tablet 5 Sig: Take 3 tablets by mouth daily at bedtime for 180 days. gabapentin (NEURONTIN) 300 mg capsule 90 capsule 5 Sig: Take 3 capsules by mouth daily at lunch Myriam Karimi RN documented in this encounter [facility] 09-18-2024 Telephone encounter Note Patient calls and notified of results and providers instructions. Patient verbalizes understanding. Radha Spencer RN [facility] 09-18-2024 Miscellaneous Notes Patient calls and notified of results and providers instructions. Patient verbalizes understanding. Radha Spencer RN Left message for return call. ----- Message from Inna Small APRN.CNP sent at 09/14/2024 3:51 PM EDT ----- HgbA1c is higher then expected at 7.4. I recommend we increase her long acting insulin from 18 units once a day to 20 units once a day. Thank you Inna Small 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 documented in this encounter [facility] 09-14-2024 Telephone encounter Note Left message for return call. [facility] 09-14-2024 Telephone encounter Note ----- Message from Inna Small APRN.CNP sent at 09/14/2024 3:51 PM EDT ----- HgbA1c is higher then expected at 7.4. I recommend we increase her long acting insulin from 18 units once a day to 20 units once a day. Thank you Inna Small 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 [facility] 09-11-2024 Note HNO ID: [id number] Author: INNA SMALL APRN.SABINE Service: ? Author Type: Nurse Practitioner Type: Progress Notes Filed: 09/11/2024 14:22 Note Text: CC: Patient presents with: Recheck: 3 month follow up HPI Melanie Bird is a 69 year old female who presents today for 3 month follow up DIABETES MELLITUS: Ms. Bird was last seen 3 months ago. Since our last visit she denies excessive thirst or increased frequency of urination, chest pain or dyspnea , numbness, tingling or pain in extremities, new or unusual visual symptoms, low sugar/hypoglycemic reactions, weight loss/gain, lightheadedness/dizziness, and bowel changes/loose stools. Follows a diabetic diet most of the time, generally not very much, this is contributed to difficulty cooking or preparing meals at home due to parkinsons. She is compliant with medication(s) and is tolerating med(s) without any side effects. She reports checking her glucose on a four times a day schedule with sugars in the <150 range. Patient's last HgA1C was Hemoglobin A1C (%) Date Value 04/24/2024 7.0 01/11/2024 7.2 11/15/2020 7.0 09/02/2020 7.2 Hemoglobin A1C (POCT) (%) Date Value 07/15/2023 6.7 04/15/2023 7.1 ) Last Ophthalmology exam was within the past 3 months Parkinsons: Patient following with neurology for this. Patient denies any new or worsening weakness. States having difficulty preparing or cooking meals, so has been eating TV dinners to compensate for this. Did have a meal delivery service but unable to open the prepared foods so this was canceled. Brother in law law drives her to appointments. Denies recent fall or injuries, compliant with medications. ARIANA: Patient reports wearing 2L O2 NC at bedtime for ARIANA. Denies waking up in the middle of the gasping for air, shortness of breath or wheezing. States complaint with oxygen regimen. 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 Denies any side effects of medication. Calf Pain: Patient reports for the past 2-3 weeks left calf pain, states occurs while siting. Describes the pain as an electrical shock sensation, states relieved after patient massages area for a while. Denies injury, discoloration, deformity, redness, numbness to area, weakness, swelling, or tenderness. REVIEW OF SYSTEMS See HPI PAST MEDICAL HISTORY Diagnosis Date Depression Diabetes mellitus type 2, uncontrolled High cholesterol History of colon polyps History of gallstones IBS (irritable bowel syndrome) Obesity 04/25/2013 BMI 48.43 ARIANA (obstructive sleep apnea) 03/06/2013 Parkinson disease (HCC) PAST SURGICAL HISTORY Procedure Laterality Date ANAL SPHINCTEROPLASTY SPHINCTEROPLASTY ANAL W/ IMPLANT ARTIFICIAL SPHINCTER ADULT BARIATRIC SURGERY HX 05/28/2021 CATARACT EXTRACTION HX Bilateral 08/2012 COLONOSCOPY GEN ANES 04/2019 INCISE FINGER TENDON SHEATH 12/20/2012 Left 3rd trigger finger release MANIPULATION KNEE JOINT UNDER GENERAL ANESTHESIA Left 01/23/2022 Left knee manipulation under anesthesia PAST SURGICAL HISTORY OF 06/2012 Interstim PAST SURGICAL HISTORY OF Right trigger thumb REMOVAL GALLBLADDER 2001 REMOVAL OF OVARY/TUBE(S) Bilateral 07/31/2022 Laparoscopic BSO and Myomectomy at [facility]- Dr. Delacruz TOTAL KNEE REPLACEMENT Left 10/29/2021 Left robotic total knee replacement ALLERGIES Seroquel [Quetiapine Fumarate] and Victoza [Liraglutide] MEDICATIONS zolpidem (AMBIEN) 5 mg tablet Take 1 tablet by mouth at bedtime as needed for sedation for up to 90 days. TAKE 1 TABLET BY MOUTH AT BEDTIME NEEDED FOR SEDATION Patient should start on September 02, 2024. fexofenadine (SEFERINO) 180 mg tablet Take 1 tablet by mouth once daily. semaglutide (OZEMPIC) 2 mg/dose (8 mg/3 mL) pen injector Inject 2 mg subcutaneously one time a week. sertraline (ZOLOFT) 100 mg tablet Take 1 tablet by mouth once daily. carbamide peroxide (DEBROX) 6.5 % otic solution To be used as directed. 4-5 drops repeat every 1-2 hr if necessary. gabapentin (NEURONTIN) 300 mg capsule Take 3 capsules by mouth daily at lunch gabapentin (NEURONTIN) 600 mg tablet Take 3 tablets by mouth daily at bedtime for 180 days. acyclovir (ZOVIRAX) 400 mg tablet Take 1 tablet by mouth two times a day. rOPINIRole (REQUIP) 0.5 mg tablet TAKE 1 TABLET BY MOUTH TWICE A DAY (NOON AND BEDTIME) Cholecalciferol, Vitamin D3, (VITAMIN D-3) 50 mcg (2,000 unit) cap Take 1 capsule by mouth once daily. insulin glargine U-300 conc (TOUJEO SOLOSTAR U-300 INSULIN) 300 unit/mL (1.5 mL) Inject 18 Units subcutaneously every morning. magnesium oxide (MAG-OX) 400 mg (241.3 mg magnesium) tablet Take 2 tablets by mouth once daily. ascorbic acid, vitamin C, (VITAMIN C) 500 mg tablet Take 1 tablet by mouth once daily. atorvastatin (LIPITOR) 20 mg tablet Take 1 tablet by mouth once daily. amantadine HCl (SYMMETREL) 100 mg capsule Take 100 mg by mouth two times a day. INGREZZA 80 mg capsule Take 1 capsule by m (more content not included)... [facility] 09-11-2024 History of Presen t illness Narrative CC: Patient presents with: Recheck: 3 month follow up HPI Melanie Bird is a 69 year old female who presents today for 3 month follow up DIABETES MELLITUS: Ms. Bird was last seen 3 months ago. Since our last visit she denies excessive thirst or increased frequency of urination, chest pain or dyspnea , numbness, tingling or pain in extremities, new or unusual visual symptoms, low sugar/hypoglycemic reactions, weight loss/gain, lightheadedness/dizziness, and bowel changes/loose stools. Follows a diabetic diet most of the time, generally not very much, this is contributed to difficulty cooking or preparing meals at home due to parkinsons. She is compliant with medication(s) and is tolerating med(s) without any side effects. She reports checking her glucose on a four times a day schedule with sugars in the <150 range. Patient's last HgA1C was Hemoglobin A1C (%) Date Value 04/24/2024 7.0 01/11/2024 7.2 11/15/2020 7.0 09/02/2020 7.2 Hemoglobin A1C (POCT) (%) Date Value 07/15/2023 6.7 04/15/2023 7.1 ) Last Ophthalmology exam was within the past 3 months Parkinsons: Patient following with neurology for this. Patient denies any new or worsening weakness. States having difficulty preparing or cooking meals, so has been eating TV dinners to compensate for this. Did have a meal delivery service but unable to open the prepared foods so this was canceled. Brother in law law drives her to appointments. Denies recent fall or injuries, compliant with medications. ARIANA: Patient reports wearing 2L O2 NC at bedtime for ARIANA. Denies waking up in the middle of the gasping for air, shortness of breath or wheezing. States complaint with oxygen regimen. 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 Denies any side effects of medication. Calf Pain: Patient reports for the past 2-3 weeks left calf pain, states occurs while siting. Describes the pain as an electrical shock sensation, states relieved after patient massages area for a while. Denies injury, discoloration, deformity, redness, numbness to area, weakness, swelling, or tenderness. REVIEW OF SYSTEMS See HPI PAST MEDICAL HISTORY Diagnosis Date Depression Diabetes mellitus type 2, uncontrolled High cholesterol History of colon polyps History of gallstones IBS (irritable bowel syndrome) Obesity 04/25/2013 BMI 48.43 ARIANA (obstructive sleep apnea) 03/06/2013 Parkinson disease (HCC) PAST SURGICAL HISTORY Procedure Laterality Date ANAL SPHINCTEROPLASTY SPHINCTEROPLASTY ANAL W/ IMPLANT ARTIFICIAL SPHINCTER ADULT BARIATRIC SURGERY HX 05/28/2021 CATARACT EXTRACTION HX Bilateral 08/2012 COLONOSCOPY GEN ANES 04/2019 INCISE FINGER TENDON SHEATH 12/20/2012 Left 3rd trigger finger release MANIPULATION KNEE JOINT UNDER GENERAL ANESTHESIA Left 01/23/2022 Left knee manipulation under anesthesia PAST SURGICAL HISTORY OF 06/2012 Interstim PAST SURGICAL HISTORY OF Right trigger thumb REMOVAL GALLBLADDER 2001 REMOVAL OF OVARY/TUBE(S) Bilateral 07/31/2022 Laparoscopic BSO and Myomectomy at [facility]- Dr. Delacruz TOTAL KNEE REPLACEMENT Left 10/29/2021 Left robotic total knee replacement ALLERGIES Seroquel [Quetiapine Fumarate] and Victoza [Liraglutide] MEDICATIONS zolpidem (AMBIEN) 5 mg tablet Take 1 tablet by mouth at bedtime as needed for sedation for up to 90 days. TAKE 1 TABLET BY MOUTH AT BEDTIME NEEDED FOR SEDATION Patient should start on September 02, 2024. fexofenadine (SEFERINO) 180 mg tablet Take 1 tablet by mouth once daily. semaglutide (OZEMPIC) 2 mg/dose (8 mg/3 mL) pen injector Inject 2 mg subcutaneously one time a week. sertraline (ZOLOFT) 100 mg tablet Take 1 tablet by mouth once daily. carbamide peroxide (DEBROX) 6.5 % otic solution To be used as directed. 4-5 drops repeat every 1-2 hr if necessary. gabapentin (NEURONTIN) 300 mg capsule Take 3 capsules by mouth daily at lunch gabapentin (NEURONTIN) 600 mg tablet Take 3 tablets by mouth daily at bedtime for 180 days. acyclovir (ZOVIRAX) 400 mg tablet Take 1 tablet by mouth two times a day. rOPINIRole (REQUIP) 0.5 mg tablet TAKE 1 TABLET BY MOUTH TWICE A DAY (NOON AND BEDTIME) Cholecalciferol, Vitamin D3, (VITAMIN D-3) 50 mcg (2,000 unit) cap Take 1 capsule by mouth once daily. insulin glargine U-300 conc (TOUJEO SOLOSTAR U-300 INSULIN) 300 unit/mL (1.5 mL) Inject 18 Units subcutaneously every morning. magnesium oxide (MAG-OX) 400 mg (241.3 mg magnesium) tablet Take 2 tablets by mouth once daily. ascorbic acid, vitamin C, (VITAMIN C) 500 mg tablet Take 1 tablet by mouth once daily. atorvastatin (LIPITOR) 20 mg tablet Take 1 tablet by mouth once daily. amantadine HCl (SYMMETREL) 100 mg capsule Take 100 mg by mouth two times a day. INGREZZA 80 mg capsule Take 1 capsule by mouth once daily. diclofenac (VOLTAREN) 1 % topical gel Apply 2 g to affected area two times a day. (Patient not taking: Reported on 10/25/2023) flash glucose sensor (FREESTYLE IZABELLA 2 SENSOR) kit Use to monitor blood sugars 4 times daily polyethylene glycol 3350 17 gram/dose powder Take 17 g by mouth two times a day as needed for constipation. Drink a mix of 1 scoop in 8oz of water/beverage once daily as needed for constipation. flash glucose scanning reader (FREESTYLE IZABELLA 2 READER) 1 Each four times daily. checking blood sugars DX E11.9 Insulin Yes pen needle, diabetic (NOVOFINE PLUS) 32 gauge x 1/6 Use to inject insulin once daily OXYGEN, HOME THERAPY, 2 L/min by Mask route daily at bedtime. CPAP 2L at night cloNIDine HCl (CATAPRES) 0.1 mg tablet Take 1 tablet by mouth once daily. omeprazole (PRILOSEC) 20 mg capsule Take 20 mg by mouth once daily. blood sugar diagnostic (BLOOD GLUCOSE TEST) test strip Test Four times a day. Insulin Dep? Yes E11.9 DM 2 calcium carbonate 600 mg-cholecalciferol 200 units (CALCARB 600 WITH VITAMIN D) 600 mg(1,500mg) -200 unit tab Take 1 tablet by mouth twice daily. wheat dextrin (BENEFIBER SUGAR FREE, DEXTRIN,) 3 gram/4 gram powd 1/2 tablespoon per day x2 weeks. Then increase by 1/2 tablespoon every 2 weeks until you are taking 3 tablespoons per day in divided doses. docusate sodium (COLACE) 100 mg capsule Take 1 capsule by mouth twice daily as needed for Constipation. COMPOUNDED PRESCRIPTION Oxygen supplies dx: R79.81 R06.02 blood sugar diagnostic (ONETOUCH ULTRA TEST) test strip Test blood sugar(s) 4 times daily. Dx: Type 2 DM - Uncontrolled E11.65 Insulin: Yes FAMILY HISTORY Problem Relation Age of Onset Diabetes Mother Heart Mother Diabetes Father Heart Father Colon Cancer Sister Asthma No Family History Social History Tobacco Use Smoking status: Former Current packs/day: 0.00 Average packs/day: 0.1 packs/day for 3.0 years (0.3 ttl pk-yrs) Types: Cigarettes Start date: 04/25/1985 Quit date: 04/25/1988 Years since quittin.4 Smokeless tobacco: Never Tobacco comments: No smoking in childhood home. Roomate of last 10 years smoked while living with patient. Vaping Use Vaping status: Never Used Substance Use Topics Alcohol use: Not Currently Drug use: Never PHYSICAL EXAM BP 118/68 Pulse 72 Resp 16 Wt 81.2 kg (179 lb) LMP 04/10/2012 (Approximate) SpO2 97% BMI 30.73 kg/m General Appearance: well appearing, in no acute distress, alert Lungs: Lungs clear to auscultation. No wheezing, rhonchi, rales. Heart: RRR without murmur, gallop, or rubs. No ectopy Lower Extremities: No deformities, edema, skin discoloration, clubbing or cyanosis. Pulses: 2+ No tenderness, deformity or redness to left calf. Negative emelyn sign. Health maintenance reviewed with patient: RSV Vaccine(1 - Risk 60-74 years 1-dose series) Never done Diabetic Foot Exam due on 01/14/2024 Advance Directive Discussion due on 02/16/2024 Medicare Advantage Annual Wellness Visit Never done Colorectal Cancer Screening due on 09/19/2024 Influenza Vaccine(1) due on 10/16/2024 HbA1C due on 10/25/2024 Dilated Retinal Exam due on 10/27/2024 Urine Albumin:Creatinine Ratio due on 01/10/2025 LDL Cholesterol due on 01/10/2025 Mammogram Screening due on 04/24/2025 Depression Screening due on 05/01/2025 Annual PCP Team Chronic Disease Visit due on 05/15/2025 DTaP,Tdap,Td Vaccine(5 - Td or Tdap) due on 10/03/2030 Bone Density Screening Completed Hepatitis C Screening Completed Shingrix Vaccine Completed Pneumococcal Vaccine: 50+ Completed Cervical Cancer Screening Discontinued DATA REVIEWED: No new labs ASSESSMENT/PLAN: 1. Diabetes mellitus type 2 (HCC) - ICD9: 250.00, ICD10: E11.9 (primary diagnosis) - Control undetermined, due for labs - Continue current medications - Blood glucose monitoring on a CGM - Counseled on healthy diet and regular exercise within parameters regarding parkinson's - Follow up in 3 months, sooner should any other issues arise. - HEMOGLOBIN A1C - COMPREHENSIVE METABOLIC PANEL - COMPLETE BLOOD COUNT AND DIFFERENTIAL 2. Muscle spasm - ICD9: 728.85, ICD10: M62.838 New, generalized shocking sensation to left calf, shocking sensation versus spasm as it resolves with massage. No tenderness, redness or swelling on examination, low concern for DVT - will check for deficiency and if symptoms continue will do US. Discussed need for stretching - COMPREHENSIVE METABOLIC PANEL - MAGNESIUM - VITAMIN B12 - COMPLETE BLOOD COUNT AND DIFFERENTIAL 3. Electrical shock sensation - ICD9: 782.0, ICD10: R20.8 See #2 - COMPREHENSIVE METABOLIC PANEL - MAGNESIUM - VITAMIN B12 - COMPLETE BLOOD COUNT AND DIFFERENTIAL 4. Parkinson's disease, unspecified whether dyskinesia present, unspecified whether manifestations fluctuate (HCC) - ICD9: 332.0, ICD10: G20.A1 - stable Follows with neurology Denies new or worsening weakness, educated on contact office if worsening difficulty completing ADL's or weakness Social work consultation offered, patient declined at this time, will reach out if new concerns arise 5. Insomnia, unspecified type - ICD9: 780.52, ICD10: G47.00 Chronic use of Ambien 6. ARIANA (obstructive sleep apnea) - ICD9: 327.23, ICD10: G47.33 Stable Wears 2L O2 NC at HS Contact office if experiencing new or worsening shortness of breath, palpitations, chest pain or waking up gasping for air Prescription instructions reviewed with patient as applicable. Potential red flag symptoms discussed with the patient. Reviewed appropriate action plan to take if red flag symptoms occur. Patient agreeable to treatment plan. Inna Small APRN.CNP documented in this encounter [facility] 08-24-2024 Telephone encounter Note PDMP website checked and validated. All prescriptions have been APPROPRIATELY filled. No suspicious activity was identified. 08/24/2024 by Inna Small APRN.CNP [facility] 08-24-2024 Miscellaneous Notes PDMP website checked and validated. All prescriptions have been APPROPRIATELY filled. No suspicious activity was identified. 08/24/2024 by Inna Small APRN.SABINE Prescription Refill Information The patient has been identified by name and date of : Yes Caregiver verified no other encounters exist for this prescription request: Yes Caregiver confirmed with patient/requestor that no other refills are due, in the near future, with this provider at this time: Yes The last office visit in the department: 05/15/24 Does the patient have a future office visit with this provider/department: Yes 08/28/24 Requested Prescriptions Pending Prescriptions Disp Refills zolpidem (AMBIEN) 5 mg tablet 30 tablet 2 Sig: Take 1 tablet by mouth at bedtime as needed for sedation for up to 90 days. TAKE 1 TABLET BY MOUTH AT BEDTIME NEEDED FOR SEDATION Davina Murray LPN August 22, 2024 10:17 AM documented in this encounter [facility] 08-22-2024 Telephone encounter Note Prescription Refill Information The patient has been identified by name and date of : Yes Caregiver verified no other encounters exist for this prescription request: Yes Caregiver confirmed with patient/requestor that no other refills are due, in the near future, with this provider at this time: Yes The last office visit in the department: 05/15/24 Does the patient have a future office visit with this provider/department: Yes 08/28/24 Requested Prescriptions Pending Prescriptions Disp Refills zolpidem (AMBIEN) 5 mg tablet 30 tablet 2 Sig: Take 1 tablet by mouth at bedtime as needed for sedation for up to 90 days. TAKE 1 TABLET BY MOUTH AT BEDTIME NEEDED FOR SEDATION Davina Murray LPN August 22, 2024 10:17 AM [facility] 07-28-2024 Telephone encounter Note The patient has been identified by name and date of : Yes Caregiver verified no other encounters exist for this prescription request: Yes Caregiver confirmed with patient/requestor that no other refills are due, in the near future, with this provider at this time: Yes The last office visit in the department: 05/15/2024 Does the patient have a future office visit with this provider/department: Yes 08/11/2024 Requested Prescriptions Pending Prescriptions Disp Refills fexofenadine (SEFERINO) 180 mg tablet 90 tablet 3 Sig: Take 1 tablet by mouth once daily. Neli Carr RN July 28, 2024 11:21 AM [facility] 07-28-2024 Miscellaneous Notes The patient has been identified by name and date of : Yes Caregiver verified no other encounters exist for this prescription request: Yes Caregiver confirmed with patient/requestor that no other refills are due, in the near future, with this provider at this time: Yes The last office visit in the department: 05/15/2024 Does the patient have a future office visit with this provider/department: Yes 08/11/2024 Requested Prescriptions Pending Prescriptions Disp Refills fexofenadine (SEFERINO) 180 mg tablet 90 tablet 3 Sig: Take 1 tablet by mouth once daily. Neli Carr RN July 28, 2024 11:21 AM documented in this encounter [facility] 07-18-2024 Telephone encounter Note Prescription Refill Information The patient has been identified by name and date of : Yes Caregiver verified no other encounters exist for this prescription request: Yes Caregiver confirmed with patient/requestor that no other refills are due, in the near future, with this provider at this time: Yes The last office visit in the department: 05/15/24 Does the patient have a future office visit with this provider/department: Yes 08/11/24 Requested Prescriptions Pending Prescriptions Disp Refills semaglutide (OZEMPIC) 2 mg/dose (8 mg/3 mL) pen injector 3 mL 3 Sig: Inject 2 mg subcutaneously one time a week. Davina Murray LPN July 18, 2024 8:36 AM [facility] 07-18-2024 Miscellaneous Notes Prescription Refill Information The patient has been identified by name and date of : Yes Caregiver verified no other encounters exist for this prescription request: Yes Caregiver confirmed with patient/requestor that no other refills are due, in the near future, with this provider at this time: Yes The last office visit in the department: 05/15/24 Does the patient have a future office visit with this provider/department: Yes 08/11/24 Requested Prescriptions Pending Prescriptions Disp Refills semaglutide (OZEMPIC) 2 mg/dose (8 mg/3 mL) pen injector 3 mL 3 Sig: Inject 2 mg subcutaneously one time a week. Davina Murray LPN July 18, 2024 8:36 AM documented in this encounter [facility] 07-12-2024 Telephone encounter Note Paperwork faxed Carissa Chinchilla LPN July 12, 2024 3:35 PM [facility] 07-12-2024 Miscellaneous Notes Paperwork faxed Carissa Chinchilla LPN July 12, 2024 3:35 PM Completed. Modesta Zazueta MD Received fax from [facility] for seat lift chair for patient CMS [id number] Thuy hathaway for completion and signature To fax: [phone] Carissa Chinchilla LPN July 12, 2024 10:39 AM documented in this encounter [facility] 07-12-2024 Telephone encounter Note Completed. Modesta Zazueta MD [facility] 07-12-2024 Telephone encounter Note Received fax from [facility] for seat lift chair for patient CMS [id number] Thuy hathaway for completion and signature To fax: [phone] Carissa Chinchilla LPN July 12, 2024 10:39 AM [facility] 06-20-2024 Telephone encounter Note The patient has been identified by name and date of : Yes Caregiver verified no other encounters exist for this prescription request: Yes Caregiver confirmed with patient/requestor that no other refills are due, in the near future, with this provider at this time: Yes The last office visit in the department: 05/15/2024 Does the patient have a future office visit with this provider/department: Yes 08/11/2024 Requested Prescriptions Pending Prescriptions Disp Refills sertraline (ZOLOFT) 100 mg tablet 30 tablet 5 Sig: Take 1 tablet by mouth once daily. Myriam Karimi RN [facility] 06-20-2024 Miscellaneous Notes The patient has been identified by name and date of : Yes Caregiver verified no other encounters exist for this prescription request: Yes Caregiver confirmed with patient/requestor that no other refills are due, in the near future, with this provider at this time: Yes The last office visit in the department: 05/15/2024 Does the patient have a future office visit with this provider/department: Yes 08/11/2024 Requested Prescriptions Pending Prescriptions Disp Refills sertraline (ZOLOFT) 100 mg tablet 30 tablet 5 Sig: Take 1 tablet by mouth once daily. Myriam Karimi RN documented in this encounter [facility] 06-05-2024 Telephone encounter Note PDMP website checked and validated. All prescriptions have been APPROPRIATELY filled. No suspicious activity was identified. 06/05/2024 by Inna Small APRN.CNP [facility] 06-05-2024 Miscellaneous Notes PDMP website checked and validated. All prescriptions have been APPROPRIATELY filled. No suspicious activity was identified. 06/05/2024 by Inna Small APRN.CNP The patient has been identified by name and date of : Yes, pharmacy Caregiver verified no other encounters exist for this prescription request: Yes Caregiver confirmed with patient/requestor that no other refills are due, in the near future, with this provider at this time: Yes The last office visit in the department: 05/15/2024 Does the patient have a future office visit with this provider/department: Yes 08/11/2024 Requested Prescriptions Pending Prescriptions Disp Refills zolpidem (AMBIEN) 5 mg tablet 30 tablet 2 Sig: Take 1 tablet by mouth at bedtime as needed for sedation for up to 90 days. TAKE 1 TABLET BY MOUTH AT BEDTIME NEEDED FOR SEDATION Divina Alcantara LPN June 05, 2024 2:10 PM documented in this encounter [facility] 06-05-2024 Telephone encounter Note The patient has been identified by name and date of : Yes, pharmacy Caregiver verified no other encounters exist for this prescription request: Yes Caregiver confirmed with patient/requestor that no other refills are due, in the near future, with this provider at this time: Yes The last office visit in the department: 05/15/2024 Does the patient have a future office visit with this provider/department: Yes 08/11/2024 Requested Prescriptions Pending Prescriptions Disp Refills zolpidem (AMBIEN) 5 mg tablet 30 tablet 2 Sig: Take 1 tablet by mouth at bedtime as needed for sedation for up to 90 days. TAKE 1 TABLET BY MOUTH AT BEDTIME NEEDED FOR SEDATION Divina Alcantara LPN June 05, 2024 2:10 PM [facility] 05-15-2024 Note HNO ID: [id number] Author: INNA SMALL 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 Service: ? Author Type: Nurse Practitioner Type: Progress Notes Filed: 05/15/2024 13:10 Note Text: CC: Patient presents with: Recheck: 2 week follow up HPI Melanie Bird is a 69 year old female who presents today for follow up on hearing concerns. Was seen by PCP 2 weeks ago with noted decreased hearing to left ear with cerumen impaction noted. Debrox ear drops prescribed and then patient returned today to be evaluated for any improvement. Patient unsure how long she has not had hearing in her left ear but noticed it about a month ago when she was laying on her right side. Did not notice an wax removal with using the ear drops. Denies injuries, ear drainage, ear pain, fever, sinus congestion, cough, wheezing, dizziness, syncope, or sore throat. REVIEW OF SYSTEMS See HPI PAST MEDICAL HISTORY Diagnosis Date Depression Diabetes mellitus type 2, uncontrolled High cholesterol History of colon polyps History of gallstones IBS (irritable bowel syndrome) Obesity 04/25/2013 BMI 48.43 ARIANA (obstructive sleep apnea) 03/06/2013 Parkinson disease (HCC) PAST SURGICAL HISTORY Procedure Laterality Date ANAL SPHINCTEROPLASTY SPHINCTEROPLASTY ANAL W/ IMPLANT ARTIFICIAL SPHINCTER ADULT BARIATRIC SURGERY HX 05/28/2021 CATARACT EXTRACTION HX Bilateral 08/2012 COLONOSCOPY GEN ANES 04/2019 INCISE FINGER TENDON SHEATH 12/20/2012 Left 3rd trigger finger release MANIPULATION KNEE JOINT UNDER GENERAL ANESTHESIA Left 01/23/2022 Left knee manipulation under anesthesia PAST SURGICAL HISTORY OF 06/2012 Interstim PAST SURGICAL HISTORY OF Right trigger thumb REMOVAL GALLBLADDER 2000 REMOVAL OF OVARY/TUBE(S) Bilateral 07/31/2022 Laparoscopic BSO and Myomectomy at [facility]- Dr. Delacruz TOTAL KNEE REPLACEMENT Left 10/29/2021 Left robotic total knee replacement ALLERGIES Seroquel [Quetiapine Fumarate] and Victoza [Liraglutide] MEDICATIONS carbamide peroxide (DEBROX) 6.5 % otic solution To be used as directed. 4-5 drops repeat every 1-2 hr if necessary. gabapentin (NEURONTIN) 300 mg capsule Take 3 capsules by mouth daily at lunch gabapentin (NEURONTIN) 600 mg tablet Take 3 tablets by mouth daily at bedtime for 180 days. semaglutide (OZEMPIC) 2 mg/dose (8 mg/3 mL) pen injector Inject 2 mg subcutaneously one time a week. acyclovir (ZOVIRAX) 400 mg tablet Take 1 tablet by mouth two times a day. zolpidem (AMBIEN) 5 mg tablet Take 1 tablet by mouth at bedtime as needed for sedation for up to 90 days. TAKE 1 TABLET BY MOUTH AT BEDTIME NEEDED FOR SEDATION rOPINIRole (REQUIP) 0.5 mg tablet TAKE 1 TABLET BY MOUTH TWICE A DAY (NOON AND BEDTIME) Cholecalciferol, Vitamin D3, (VITAMIN D-3) 50 mcg (2,000 unit) cap Take 1 capsule by mouth once daily. insulin glargine U-300 conc (TOUJEO SOLOSTAR U-300 INSULIN) 300 unit/mL (1.5 mL) Inject 18 Units subcutaneously every morning. sertraline (ZOLOFT) 100 mg tablet Take 1 tablet by mouth once daily. magnesium oxide (MAG-OX) 400 mg (241.3 mg magnesium) tablet Take 2 tablets by mouth once daily. ascorbic acid, vitamin C, (VITAMIN C) 500 mg tablet Take 1 tablet by mouth once daily. atorvastatin (LIPITOR) 20 mg tablet Take 1 tablet by mouth once daily. fexofenadine (SEFERINO) 180 mg tablet Take 1 tablet by mouth once daily. amantadine HCl (SYMMETREL) 100 mg capsule Take 100 mg by mouth two times a day. INGREZZA 80 mg capsule Take 1 capsule by mouth once daily. diclofenac (VOLTAREN) 1 % topical gel Apply 2 g to affected area two times a day. (Patient not taking: Reported on 10/25/2023) flash glucose sensor (FREESTYLE IZABELLA 2 SENSOR) kit Use to monitor blood sugars 4 times daily polyethylene glycol 3350 17 gram/dose powder Take 17 g by mouth two times a day as needed for constipation. Drink a mix of 1 scoop in 8oz of water/beverage once daily as needed for constipation. flash glucose scanning reader (FREESTYLE IZABELLA 2 READER) 1 Each four times daily. checking blood sugars DX E11.9 Insulin Yes pen needle, diabetic (NOVOFINE PLUS) 32 gauge x 1/6 Use to inject insulin once daily OXYGEN, HOME THERAPY, 2 L/min by Mask route daily at bedtime. CPAP 2L at night cloNIDine HCl (CATAPRES) 0.1 mg tablet Take 1 tablet by mouth once daily. omeprazole (PRILOSEC) 20 mg capsule Take 20 mg by mouth once daily. blood sugar diagnostic (BLOOD GLUCOSE TEST) test strip Test Four times a day. Insulin Dep? Yes E11.9 DM 2 calcium carbonate 600 mg-cholecalciferol 200 units (CALCARB 600 WITH VITAMIN D) 600 mg(1,500mg) -200 unit tab Take 1 tablet by mouth twice daily. wheat dextrin (BENEFIBER SUGAR FREE, DEXTRIN,) 3 gram/4 gram powd 1/2 tablespoon per day x2 weeks. Then increase by 1/2 tablespoon every 2 weeks until you are taking 3 tablespoons per day in divided doses. docusate sodium (COLACE) 100 mg capsule Take 1 capsule by mouth twice daily as needed for Constipation. COMPOUNDED PRESCRIPTION Oxyg (more content not included)... [facility] 05-15-2024 History of Presen t illness Narrative CC: Patient presents with: Recheck: 2 week follow up HPI Melanie Soniya Pelon is a 69 year old female who presents today for follow up on hearing concerns. Was seen by PCP 2 weeks ago with noted decreased hearing to left ear with cerumen impaction noted. Debrox ear drops prescribed and then patient returned today to be evaluated for any improvement. Patient unsure how long she has not had hearing in her left ear but noticed it about a month ago when she was laying on her right side. Did not notice an wax removal with using the ear drops. Denies injuries, ear drainage, ear pain, fever, sinus congestion, cough, wheezing, dizziness, syncope, or sore throat. REVIEW OF SYSTEMS See HPI PAST MEDICAL HISTORY Diagnosis Date Depression Diabetes mellitus type 2, uncontrolled High cholesterol History of colon polyps History of gallstones IBS (irritable bowel syndrome) Obesity 04/25/2013 BMI 48.43 ARIANA (obstructive sleep apnea) 03/06/2013 Parkinson disease (HCC) PAST SURGICAL HISTORY Procedure Laterality Date ANAL SPHINCTEROPLASTY SPHINCTEROPLASTY ANAL W/ IMPLANT ARTIFICIAL SPHINCTER ADULT BARIATRIC SURGERY HX 05/28/2021 CATARACT EXTRACTION HX Bilateral 08/2012 COLONOSCOPY GEN ANES 04/2019 INCISE FINGER TENDON SHEATH 12/20/2012 Left 3rd trigger finger release MANIPULATION KNEE JOINT UNDER GENERAL ANESTHESIA Left 01/23/2022 Left knee manipulation under anesthesia PAST SURGICAL HISTORY OF 06/2012 Interstim PAST SURGICAL HISTORY OF Right trigger thumb REMOVAL GALLBLADDER 2001 REMOVAL OF OVARY/TUBE(S) Bilateral 07/31/2022 Laparoscopic BSO and Myomectomy at [facility]- Dr. Delacruz TOTAL KNEE REPLACEMENT Left 10/29/2021 Left robotic total knee replacement ALLERGIES Seroquel [Quetiapine Fumarate] and Victoza [Liraglutide] MEDICATIONS carbamide peroxide (DEBROX) 6.5 % otic solution To be used as directed. 4-5 drops repeat every 1-2 hr if necessary. gabapentin (NEURONTIN) 300 mg capsule Take 3 capsules by mouth daily at lunch gabapentin (NEURONTIN) 600 mg tablet Take 3 tablets by mouth daily at bedtime for 180 days. semaglutide (OZEMPIC) 2 mg/dose (8 mg/3 mL) pen injector Inject 2 mg subcutaneously one time a week. acyclovir (ZOVIRAX) 400 mg tablet Take 1 tablet by mouth two times a day. zolpidem (AMBIEN) 5 mg tablet Take 1 tablet by mouth at bedtime as needed for sedation for up to 90 days. TAKE 1 TABLET BY MOUTH AT BEDTIME NEEDED FOR SEDATION rOPINIRole (REQUIP) 0.5 mg tablet TAKE 1 TABLET BY MOUTH TWICE A DAY (NOON AND BEDTIME) Cholecalciferol, Vitamin D3, (VITAMIN D-3) 50 mcg (2,000 unit) cap Take 1 capsule by mouth once daily. insulin glargine U-300 conc (TOMARTHA SOLEMIGDIO U-300 INSULIN) 300 unit/mL (1.5 mL) Inject 18 Units subcutaneously every morning. sertraline (ZOLOFT) 100 mg tablet Take 1 tablet by mouth once daily. magnesium oxide (MAG-OX) 400 mg (241.3 mg magnesium) tablet Take 2 tablets by mouth once daily. ascorbic acid, vitamin C, (VITAMIN C) 500 mg tablet Take 1 tablet by mouth once daily. atorvastatin (LIPITOR) 20 mg tablet Take 1 tablet by mouth once daily. fexofenadine (SEFERINO) 180 mg tablet Take 1 tablet by mouth once daily. amantadine HCl (SYMMETREL) 100 mg capsule Take 100 mg by mouth two times a day. INGREZZA 80 mg capsule Take 1 capsule by mouth once daily. diclofenac (VOLTAREN) 1 % topical gel Apply 2 g to affected area two times a day. (Patient not taking: Reported on 10/25/2023) flash glucose sensor (FREESTYLE IZABELLA 2 SENSOR) kit Use to monitor blood sugars 4 times daily polyethylene glycol 3350 17 gram/dose powder Take 17 g by mouth two times a day as needed for constipation. Drink a mix of 1 scoop in 8oz of water/beverage once daily as needed for constipation. flash glucose scanning reader (FREESTYLE IZABELLA 2 READER) 1 Each four times daily. checking blood sugars DX E11.9 Insulin Yes pen needle, diabetic (NOVOFINE PLUS) 32 gauge x 1/6 Use to inject insulin once daily OXYGEN, HOME THERAPY, 2 L/min by Mask route daily at bedtime. CPAP 2L at night cloNIDine HCl (CATAPRES) 0.1 mg tablet Take 1 tablet by mouth once daily. omeprazole (PRILOSEC) 20 mg capsule Take 20 mg by mouth once daily. blood sugar diagnostic (BLOOD GLUCOSE TEST) test strip Test Four times a day. Insulin Dep? Yes E11.9 DM 2 calcium carbonate 600 mg-cholecalciferol 200 units (CALCARB 600 WITH VITAMIN D) 600 mg(1,500mg) -200 unit tab Take 1 tablet by mouth twice daily. wheat dextrin (BENEFIBER SUGAR FREE, DEXTRIN,) 3 gram/4 gram powd 1/2 tablespoon per day x2 weeks. Then increase by 1/2 tablespoon every 2 weeks until you are taking 3 tablespoons per day in divided doses. docusate sodium (COLACE) 100 mg capsule Take 1 capsule by mouth twice daily as needed for Constipation. COMPOUNDED PRESCRIPTION Oxygen supplies dx: R79.81 R06.02 blood sugar diagnostic (ONETOUCH ULTRA TEST) test strip Test blood sugar(s) 4 times daily. Dx: Type 2 DM - Uncontrolled E11.65 Insulin: Yes FAMILY HISTORY Problem Relation Age of Onset Diabetes Mother Heart Mother Diabetes Father Heart Father Colon Cancer Sister Asthma No Family History Social History Tobacco Use Smoking status: Former Current packs/day: 0.00 Average packs/day: 0.1 packs/day for 3.0 years (0.3 ttl pk-yrs) Types: Cigarettes Start date: 04/25/1985 Quit date: 04/25/1988 Years since quittin.0 Smokeless tobacco: Never Tobacco comments: No smoking in childhood home. Roomate of last 10 years smoked while living with patient. Vaping Use Vaping status: Never Used Substance Use Topics Alcohol use: Not Currently Drug use: Never PHYSICAL EXAM BP 108/68 Pulse 74 Resp 16 Wt 82.6 kg (182 lb) LMP 04/10/2012 (Approximate) SpO2 96% BMI 31.24 kg/m General Appearance: well appearing, in no acute distress, alert Eyes: conjunctiva pink and moist, no icterus, sclera white, non-injected Ears: external ears normal to inspection and palpation, canals clear, Left tympanic membrane not fully visualized due to cerumen and ear canal moist, Right tympanic unable to be viewed due to cerumen impaction Nose/sinus: Nares normal. Septum midline. Mucosa normal. No drainage. Health maintenance reviewed with patient: RSV Vaccine(1 - Risk 60-74 years 1-dose series) Never done Diabetic Foot Exam due on 01/14/2024 Advance Directive Discussion due on 02/16/2024 Covid-19 Vaccine( season) due on 01/19/2025 Colorectal Cancer Screening due on 09/19/2024 HbA1C due on 10/25/2024 Dilated Retinal Exam due on 10/27/2024 Urine Albumin:Creatinine Ratio due on 01/10/2025 LDL Cholesterol due on 01/10/2025 Mammogram Screening due on 04/24/2025 Annual PCP Team Chronic Disease Visit due on 05/01/2025 Depression Screening due on 05/01/2025 DTaP,Tdap,Td Vaccine(5 - Td or Tdap) due on 10/03/2030 Bone Density Screening Completed Influenza Vaccine Completed Hepatitis C Screening Completed Shingrix Vaccine Completed Pneumococcal Vaccine: 50+ Completed Cervical Cancer Screening Discontinued DATA REVIEWED: No new labs ASSESSMENT/PLAN: 1. Hearing loss of left ear, unspecified hearing loss type - ICD9: 389.9, ICD10: H91.92 (primary diagnosis) With concerns of full hearing loss for unknown amount of time will send to ENT - CONSULT TO ENT 2. Impacted cerumen of left ear - ICD9: 380.4, ICD10: H61.22 Right side impacted cerumen - use debrox to this. - CONSULT TO ENT Prescription instructions reviewed with patient as applicable. Potential red flag symptoms discussed with the patient. Reviewed appropriate action plan to take if red flag symptoms occur. Patient agreeable to treatment plan. Inna Small APRN.CNP documented in this encounter [facility] 05-01-2024 Note HNO ID: [id number] Author: YOEL RODRIGUEZ MA Service: ? Author Type: Documentation Improvement Specialist Type: Progress Notes Filed: 05/01/2024 18:01 Note Text: Seat Lift script faxed to: [phone]. Yoel Rodriguez MA [facility] 05-01-2024 History of Presen t illness Narrative Seat Lift script faxed to: [phone]. Yoel Rodriguez MA Reason for Visit Melanie is a 69-year-old female with a history of DM, major depression, suspected bipolar disorder, TD, ARIANA, hyperlipidemia, BPPV, and Parkinson's disease, presenting for follow-up. HPI Hearing Loss: - Unable to hear out of the left ear; suspects cerumen impaction. - Noted difficulty hearing the clock when lying on the right side. Lift Chair Prescription: - Requests a prescription for a lift chair to assist with standing. - Unable to rise from chairs without arms. Tardive Dyskinesia: - Developed TD after being prescribed antipsychotic medications. - Currently taking Ingrezza and another medication starting with A to manage symptoms. - Neurology is following the condition; informed that no further interventions are available. ARIANA: - No longer using CPAP; requires supplemental oxygen at night due to desaturation. - Recent sleep study indicated nocturnal hypoxemia. Parkinson's Disease: - Diagnosed with Parkinson's disease; experiencing resting tremor. - Uses lennon for balance while ambulating. Diabetes Mellitus: - Well-controlled blood glucose levels; recent A1c was 7%. - Administers own insulin. Activities of Daily Living: - Receives assistance from an aide twice a week for 3 hours through [email or web address]. - Aide assists with transmission builder, including dishes, bathroom cleaning, litter box maintenance, vacuuming, dusting, and laundry. - Able to manage medications independently. - Prepares meals using a microwave; receives one meal per day. Social History Tobacco Use Smoking status: Former Current packs/day: 0.00 Average packs/day: 0.1 packs/day for 3.0 years (0.3 ttl pk-yrs) Types: Cigarettes Start date: 04/25/1985 Quit date: 04/25/1988 Years since quittin.0 Smokeless tobacco: Never Tobacco comments: No smoking in childhood home. Roomate of last 10 years smoked while living with patient. Vaping Use Vaping status: Never Used Substance Use Topics Alcohol use: Not Currently Drug use: Never Past medical history, appointments, medications, allergies reviewed. Pertinent Lab/Diagnostic Studies are reviewed and discussed today Current Outpatient Medications: gabapentin (NEURONTIN) 300 mg capsule gabapentin (NEURONTIN) 600 mg tablet semaglutide (OZEMPIC) 2 mg/dose (8 mg/3 mL) pen injector acyclovir (ZOVIRAX) 400 mg tablet zolpidem (AMBIEN) 5 mg tablet rOPINIRole (REQUIP) 0.5 mg tablet Cholecalciferol, Vitamin D3, (VITAMIN D-3) 50 mcg (2,000 unit) cap insulin glargine U-300 conc (TOUJEO SOLOSTAR U-300 INSULIN) 300 unit/mL (1.5 mL) sertraline (ZOLOFT) 100 mg tablet magnesium oxide (MAG-OX) 400 mg (241.3 mg magnesium) tablet ascorbic acid, vitamin C, (VITAMIN C) 500 mg tablet atorvastatin (LIPITOR) 20 mg tablet fexofenadine (SEFERINO) 180 mg tablet amantadine HCl (SYMMETREL) 100 mg capsule INGREZZA 80 mg capsule flash glucose sensor (FREESTYLE IZABELLA 2 SENSOR) kit polyethylene glycol 3350 17 gram/dose powder flash glucose scanning reader (FREESTYLE IZABELLA 2 READER) pen needle, diabetic (NOVOFINE PLUS) 32 gauge x 1/6 OXYGEN, HOME THERAPY, cloNIDine HCl (CATAPRES) 0.1 mg tablet omeprazole (PRILOSEC) 20 mg capsule blood sugar diagnostic (BLOOD GLUCOSE TEST) test strip calcium carbonate 600 mg-cholecalciferol 200 units (CALCARB 600 WITH VITAMIN D) 600 mg(1,500mg) -200 unit tab wheat dextrin (BENEFIBER SUGAR FREE, DEXTRIN,) 3 gram/4 gram powd docusate sodium (COLACE) 100 mg capsule COMPOUNDED PRESCRIPTION blood sugar diagnostic (ONETOUCH ULTRA TEST) test strip carbamide peroxide (DEBROX) 6.5 % otic solution diclofenac (VOLTAREN) 1 % topical gel Health Maintenance Depression Screening RSV Vaccine(1 - Risk 60-74 years 1-dose series) Diabetic Foot Exam Advance Directive Discussion@ Review Of Systems Constitutional: (+) weight loss Ears/Nose/Mouth/Throat: (+) hearing changes (left ear) Musculoskeletal: (+) difficulty with balance, (+) difficulty rising from chair Neurological: (+) tremors, (+) involuntary movements Physical Exam BP 117/78 Pulse 80 Resp 16 Wt 82.6 kg (182 lb 3.2 oz) LMP 04/10/2012 (Approximate) SpO2 97% BMI 31.27 kg/m GENERAL: NAD, alert and oriented. SKIN: Unremarkable, no rash or skin lesions. HEAD: Normocephalic. EYES: PERRLA, EOMI, conjunctiva clear. EARS: External ears normal. Left ear canal with minimal cerumen, partial view of TM. NOSE/SINUSES: Nares normal. Septum midline. OROPHARYNX: Lips, mucosa, and tongue normal, good dentition. No oral lesions noted. NECK: Supple, no lymphadenopathy, normal thyroid, no carotid bruits. LUNGS: Clear to auscultation bilaterally, no wheezes/rhonchi/rales. HEART: Regular rate and rhythm, no murmurs. No ectopy. EXTREMITIES: Normal, no deformities, no skin discoloration, no edema. NEURO: Awake, alert and oriented x3, cranial nerves II-XII grossly intact, normal gait, no involuntary motions. Labs: - A1c: 7 - Vitamin D: normal Tests: - Sleep study: No CPAP recommended; oxygen therapy indicated Assessment and Plan 1. Screening for depression (Z13.31) - Depression is stable. 2. Ambulatory dysfunction (R26.2) - Patient reports difficulty with balance and requires support from lennon to ambulate. - Requested prescription for a lift chair to assist with transfers; prescription provided and sent to designated contact via fax. 3. Parkinson's disease, unspecified whether dyskinesia present, unspecified whether manifestations fluctuate (HCC) (G20.A1) - Resting tremor observed. - Patient is on medication to control tremors, taken in the morning and at night. 4. Tardive dyskinesia (G24.01) - Managed with Ingrezza. - Neurology is following; no further interventions available at this time. 5. Diabetes mellitus type 2 (HCC) (E11.9) - Hemoglobin A1c is 7%, indicating good glycemic control. - Patient is independent in insulin administration. 6. Upper extremity weakness (R29.898) - Patient reports difficulty rising from chairs without armrests. 7. Primary insomnia (F51.01) - Patient is on medication to control tremors at night, which aids in sleep. 8. Decreased hearing, left (H91.92) 9. Impacted cerumen of left ear (H61.22) - Cerumen impaction noted in the left ear, obscuring full view of the tympanic membrane. - Prescribed Debrox drops to be used in the left ear. - Follow-up in 2 weeks to reassess hearing and determine if audiogram is necessary. Voice recognition software was used to compose this office note. Please excuse any unintended typographical errors. The patient consented to the use of ambient [employer] software for draft documentation of the visit consistent with [facility] s Notice of Privacy Practices. Modesta Daley MD documented in this encounter [facility] 05-01-2024 Instructions Modesta Daley MD - 05/01/2024 3:54 PM EDT - Use Debrox ear drops as directed to clear wax from your left ear. - Follow up in 2 weeks for a hearing assessment. - Continue using oxygen at night as prescribed. - Prescription for a lift chair will be sent to the specified contact. documented in this encounter [facility] 05-01-2024 Note HNO ID: [id number] Author: MODESTA DALEY MD Service: ? Author Type: Physician Type: Progress Notes Filed: 05/01/2024 16:06 Note Text: Reason for Visit Melanie is a 69-year-old female with a history of DM, major depression, suspected bipolar disorder, TD, ARIANA, hyperlipidemia, BPPV, and Parkinson's disease, presenting for follow-up. HPI Hearing Loss: - Unable to hear out of the left ear; suspects cerumen impaction. - Noted difficulty hearing the clock when lying on the right side. Lift Chair Prescription: - Requests a prescription for a lift chair to assist with standing. - Unable to rise from chairs without arms. Tardive Dyskinesia: - Developed TD after being prescribed antipsychotic medications. - Currently taking Ingrezza and another medication starting with A to manage symptoms. - Neurology is following the condition; informed that no further interventions are available. ARIANA: - No longer using CPAP; requires supplemental oxygen at night due to desaturation. - Recent sleep study indicated nocturnal hypoxemia. Parkinson's Disease: - Diagnosed with Parkinson's disease; experiencing resting tremor. - Uses lennon for balance while ambulating. Diabetes Mellitus: - Well-controlled blood glucose levels; recent A1c was 7%. - Administers own insulin. Activities of Daily Living: - Receives assistance from an aide twice a week for 3 hours through [employer]. - Aide assists with transmission builder, including dishes, bathroom cleaning, litter box maintenance, vacuuming, dusting, and laundry. - Able to manage medications independently. - Prepares meals using a microwave; receives one meal per day. Social History Tobacco Use Smoking status: Former Current packs/day: 0.00 Average packs/day: 0.1 packs/day for 3.0 years (0.3 ttl pk-yrs) Types: Cigarettes Start date: 04/25/1985 Quit date: 04/25/1988 Years since quittin.0 Smokeless tobacco: Never Tobacco comments: No smoking in childhood home. Roomate of last 10 years smoked while living with patient. Vaping Use Vaping status: Never Used Substance Use Topics Alcohol use: Not Currently Drug use: Never Past medical history, appointments, medications, allergies reviewed. Pertinent Lab/Diagnostic Studies are reviewed and discussed today Current Outpatient Medications: gabapentin (NEURONTIN) 300 mg capsule gabapentin (NEURONTIN) 600 mg tablet semaglutide (OZEMPIC) 2 mg/dose (8 mg/3 mL) pen injector acyclovir (ZOVIRAX) 400 mg tablet zolpidem (AMBIEN) 5 mg tablet rOPINIRole (REQUIP) 0.5 mg tablet Cholecalciferol, Vitamin D3, (VITAMIN D-3) 50 mcg (2,000 unit) cap insulin glargine U-300 conc (TOUJEO SOLOSTAR U-300 INSULIN) 300 unit/mL (1.5 mL) sertraline (ZOLOFT) 100 mg tablet magnesium oxide (MAG-OX) 400 mg (241.3 mg magnesium) tablet ascorbic acid, vitamin C, (VITAMIN C) 500 mg tablet atorvastatin (LIPITOR) 20 mg tablet fexofenadine (SEFERINO) 180 mg tablet amantadine HCl (SYMMETREL) 100 mg capsule INGREZZA 80 mg capsule flash glucose sensor (FREESTYLE IZABELLA 2 SENSOR) kit polyethylene glycol 3350 17 gram/dose powder flash glucose scanning reader (FREESTYLE IZABELLA 2 READER) pen needle, diabetic (NOVOFINE PLUS) 32 gauge x 1/6 OXYGEN, HOME THERAPY, cloNIDine HCl (CATAPRES) 0.1 mg tablet omeprazole (PRILOSEC) 20 mg capsule blood sugar diagnostic (BLOOD GLUCOSE TEST) test strip calcium carbonate 600 mg-cholecalciferol 200 units (CALCARB 600 WITH VITAMIN D) 600 mg(1,500mg) -200 unit tab wheat dextrin (BENEFIBER SUGAR FREE, DEXTRIN,) 3 gram/4 gram powd docusate sodium (COLACE) 100 mg capsule COMPOUNDED PRESCRIPTION blood sugar diagnostic (ONETOUCH ULTRA TEST) test strip carbamide peroxide (DEBROX) 6.5 % otic solution diclofenac (VOLTAREN) 1 % topical gel Health Maintenance Depression Screening RSV Vaccine(1 - Risk 60-74 years 1-dose series) Diabetic Foot Exam Advance Directive Discussion@ Review Of Systems Constitutional: (+) weight loss Ears/Nose/Mouth/Throat: (+) hearing changes (left ear) Musculoskeletal: (+) difficulty with balance, (+) difficulty rising from chair Neurological: (+) tremors, (+) involuntary movements Physical Exam BP 117/78 Pulse 80 Resp 16 Wt 82.6 kg (182 lb 3.2 oz) LMP 04/10/2012 (Approximate) SpO2 97% BMI 31.27 kg/m? GENERAL: NAD, alert and oriented. SKIN: Unremarkable, no rash or skin lesions. HEAD: Normocephalic. EYES: PERRLA, EOMI, conjunctiva clear. EARS: External ears normal. Left ear canal with minimal cerumen, partial view of TM. NOSE/SINUSES: Nares normal. Septum midline. OROPHARYNX: Lips, mucosa, and tongue normal, good dentition. No oral lesions noted. NECK: Supple, no lymphadenopathy, normal thyroid, no carotid bruits. LUNGS: Clear to auscultation bilaterally, no wheezes/rhonchi/rales. HEART: Regular rate and rhythm, no murmurs. No ectopy. EXTREMITIES: Normal, no deformities, no skin discoloration, no e (more content not included)... [facility] 04-27-2024 Telephone encounter Note The patient has been identified by name and date of : Yes Caregiver verified no other encounters exist for this prescription request: Yes Caregiver confirmed with patient/requestor that no other refills are due, in the near future, with this provider at this time: Yes The last office visit in the department: 01/20/2024 Does the patient have a future office visit with this provider/department: Yes 04/28/2024 Requested Prescriptions Pending Prescriptions Disp Refills gabapentin (NEURONTIN) 300 mg capsule 90 capsule 5 Sig: Take 3 capsules by mouth daily at lunch gabapentin (NEURONTIN) 600 mg tablet 90 tablet 5 Sig: Take 3 tablets by mouth daily at bedtime for 180 days. Taisha Beck RN April 27, 2024 9:24 AM [facility] 04-27-2024 Miscellaneous Notes The patient has been identified by name and date of : Yes Caregiver verified no other encounters exist for this prescription request: Yes Caregiver confirmed with patient/requestor that no other refills are due, in the near future, with this provider at this time: Yes The last office visit in the department: 01/20/2024 Does the patient have a future office visit with this provider/department: Yes 04/28/2024 Requested Prescriptions Pending Prescriptions Disp Refills gabapentin (NEURONTIN) 300 mg capsule 90 capsule 5 Sig: Take 3 capsules by mouth daily at lunch gabapentin (NEURONTIN) 600 mg tablet 90 tablet 5 Sig: Take 3 tablets by mouth daily at bedtime for 180 days. Taisha Beck RN April 27, 2024 9:24 AM documented in this encounter [facility] 04-24-2024 History of Presen t illness Narrative Radiology Service Progress Note PATIENT NAME: Melanie Bird DATE OF SERVICE: April 24, 2024 TIME: 9:55 AM PATIENT IDENTITY VERIFICATION COMPLETED USING TWO (2) IDENTIFIERS: Name and Date of confirmed by patient verbally. FALL SCREENING: Has the patient had 2 falls in the last year or 1 fall with injury or currently using an Ambulatory Assistive Device (Walker, Cane, Wheelchair, Crutches, etc.)? No PATIENT GENDER DATA: Assigned female at . status: : No status: NO. PATIENT RELEVANT IMPLANT DATA REVIEWED: Not Applicable PATIENT PRESENTS WITH AN IMPLANTABLE OR ATTACHED HOISTMAN: No RADIOLOGY DEPARTMENT: Bone Density PERIPHERAL IV DATA: Not applicable SIGNED BY: RT Stalin([place]) April 24, 2024 9:55 AM documented in this encounter [facility] 04-24-2024 Note HNO ID: [id number] Author: JEOVANNY PALOMO RT(R) Service: ? Author Type: Technologist Type: Progress Notes Filed: 04/24/2024 10:05 Note Text: Radiology Service Progress Note PATIENT NAME: Melanie Bird DATE OF SERVICE: April 24, 2024 TIME: 9:55 AM PATIENT IDENTITY VERIFICATION COMPLETED USING TWO (2) IDENTIFIERS: Name and Date of confirmed by patient verbally. FALL SCREENING: Has the patient had 2 falls in the last year or 1 fall with injury or currently using an Ambulatory Assistive Device (Walker, Cane, Wheelchair, Crutches, etc.)? No PATIENT GENDER DATA: Assigned female at . status: : No status: NO. PATIENT RELEVANT IMPLANT DATA REVIEWED: Not Applicable PATIENT PRESENTS WITH AN IMPLANTABLE OR ATTACHED HOISTMAN: No RADIOLOGY DEPARTMENT: Bone Density PERIPHERAL IV DATA: Not applicable SIGNED BY: RT Stalin(R) April 24, 2024 9:55 AM [facility] 04-24-2024 History of Presen t illness Narrative Radiology Service Progress Note PATIENT NAME: Melanie Bird DATE OF SERVICE: April 24, 2024 TIME: 9:28 AM PATIENT IDENTITY VERIFICATION COMPLETED USING TWO (2) IDENTIFIERS: Name and Date of confirmed by patient verbally. FALL SCREENING: Has the patient had 2 falls in the last year or 1 fall with injury or currently using an Ambulatory Assistive Device (Walker, Cane, Wheelchair, Crutches, etc.)? No PATIENT GENDER DATA: Assigned female at . status: : No status: NO. PATIENT RELEVANT IMPLANT DATA REVIEWED: Not Applicable PATIENT PRESENTS WITH AN IMPLANTABLE OR ATTACHED HOISTMAN: No RADIOLOGY DEPARTMENT: Mammography PERIPHERAL IV DATA: Not applicable SIGNED BY: Thao Cabrera April 24, 2024 9:28 AM documented in this encounter [facility] 04-24-2024 Note HNO ID: [id number] Author: LORAINE ROSARIO Mammo Tech Service: ? Author Type: [employer] Consultant Type: Progress Notes Filed: 04/24/2024 09:28 Note Text: Radiology Service Progress Note PATIENT NAME: Melanie Bird DATE OF SERVICE: April 24, 2024 TIME: 9:28 AM PATIENT IDENTITY VERIFICATION COMPLETED USING TWO (2) IDENTIFIERS: Name and Date of confirmed by patient verbally. FALL SCREENING: Has the patient had 2 falls in the last year or 1 fall with injury or currently using an Ambulatory Assistive Device (Walker, Cane, Wheelchair, Crutches, etc.)? No PATIENT GENDER DATA: Assigned female at . status: : No status: NO. PATIENT RELEVANT IMPLANT DATA REVIEWED: Not Applicable PATIENT PRESENTS WITH AN IMPLANTABLE OR ATTACHED HOISTMAN: No RADIOLOGY DEPARTMENT: Mammography PERIPHERAL IV DATA: Not applicable SIGNED BY: Loraine Rosario [employer] April 24, 2024 9:28 AM [facility] 03-30-2024 Telephone encounter Note The patient has been identified by name and date of : Yes Caregiver verified no other encounters exist for this prescription request: Yes Caregiver confirmed with patient/requestor that no other refills are due, in the near future, with this provider at this time: Yes The last office visit in the department: 01/20/2024 Does the patient have a future office visit with this provider/department: Yes 04/28/2024 Requested Prescriptions Pending Prescriptions Disp Refills semaglutide (OZEMPIC) 2 mg/dose (8 mg/3 mL) pen injector 3 mL 3 Sig: Inject 2 mg subcutaneously one time a week. Ameena Hodge RN March 30, 2024 1:34 PM [facility] 03-30-2024 Miscellaneous Notes The patient has been identified by name and date of : Yes Caregiver verified no other encounters exist for this prescription request: Yes Caregiver confirmed with patient/requestor that no other refills are due, in the near future, with this provider at this time: Yes The last office visit in the department: 01/20/2024 Does the patient have a future office visit with this provider/department: Yes 04/28/2024 Requested Prescriptions Pending Prescriptions Disp Refills semaglutide (OZEMPIC) 2 mg/dose (8 mg/3 mL) pen injector 3 mL 3 Sig: Inject 2 mg subcutaneously one time a week. Ameena Hodge RN March 30, 2024 1:34 PM documented in this encounter [facility] 03-28-2024 Note HNO ID: [id number] Author: ROBYN ELENA OTR/Tyesha Service: ? Author Type: Occupational Therapist Type: Progress Notes Filed: 03/29/2024 09:05 Note Text: Episode Visit Count: 1 Therapist That Will Accept/Oversee The Plan Of Care: Selam Elena Start of Care Date: 03/28/24 Onset Date: 03/18/07 Plan of Care Certification Date: 03/28/24 Next Certification Due Date: 03/28/24 Patient Identified by Name and Date of : Yes [facility] OCCUPATIONAL THERAPY EVALUATION PLAN OF CARE: Assessment: Melanie Bird presents with diagnosis of Parkinson's disease that interferes with sit to stand transfers, feeding self, and grooming. The patient presents with impairments in coordination, strength, and symptom management. Based on her evaluation the following recommendations are made to enhance safety and independence: walk in shower with fold down bench would eliminate the need to step over a tub reducing fall risk, the fold down bench would allow patient to sit while bathing when needed and be put away when not needed and decrease risk of tripping. Patient reports tripping over removable shower chair on several occasions. A lift chair could assist with transfer ease and promote increased independence in home environment. An electric toothbrush requires less fine motor control making oral hygiene more manageable and reduces the impact of tremors on brushing thoroughness. Finally, patient could benefit from Gyenno Ruiz Twist anti tremor utensil to help counteract the effects of tremor improving self feeding ability. Patient declines follow up occupational therapy due to limited transportation and inaccessibility due to travel distance. Goals for Episode of Care: established 03/28/24 Patient will verbalize understanding OT recommendations to increase independence and quality of life (MET) Patient Goals: Obtain recommended DME for increased independence PLAN FOR NEXT VISIT: Patient demonstrates good understanding of plan of care and treatment. The above goals and plan of care were discussed and agreed upon by patient/family. SUBJECTIVE: OT evaluation for Parkinson's disease. Would like evaluation for recommended equipment. Functional Limitations: rising from a chair, feeding self, grooming Prior Level of Function: Independent without limitations Patient Goals: Obtain recommended DME for increased independence Intake Information: Prescription present Previous Treatment: None Falls Interview: No positive findings with falls interview Relevant History Past Relevant Medical Conditions: Parkinson's Disease, Diabetes, Depression Right or Left Handed: Right Employment: Medically Disabled Hobbies / Interests: watching HGTV Home Environment Patient Lives With: Self/Alone Assistance Available: Part-Time (2x/week 3 hours at a time assistance with laundry, washing dishes, cleaning bathroom/litter box) Home Type: Apt/Condo Entry To Home: No Stairs Tub/Shower Type: tub/shower with grab bar Laundry: aides complete Equipment Owned: Grab Bars- Shower, Grab Bars- Toilet, Elevated Toilet Seat, Walker- Wheeled Pain: Pain Pain Level: 0 Post Treatment Pain Post Treatment Pain Level: No Change PROMIS Scales 03/27/2024 Higher is Better Self-Eff Symptom - T Score 45 (Average) Self-Eff Symptom - Percentile 31 Cognitve Function - T Score 48 (within normal limits) Cognitive Function - Percentile 42 T-scores: mean of general population = 50. 5 points is clinically meaningfully difference Percentiles provide an indication of how the patient's score ranks in relation to the general population. Higher percentile rankings indicate better function/quality of life. 50th percentile is the average of the general population and indicates half of respondents had a worse score. OBJECTIVE MEASURES WITH LEVEL OF FUNCTION: Hand Strength R Barrel Charrer Helper Position 2 (lbs): 26 lbs L Barrel Charrer Helper Position 2 (lbs): 30 lbs UE AROM R UE AROM: WFL L UE AROM: WFL Current Activities Of Daily Living Feeding: Modified Independent (difficulty bringing spoon to mouth due to tremors) Grooming: Modified Independent (tires from teeth brushing, difficulty with thoroughness of task) Bathing Upper Body: Modified Independent (uses hand held shower) Bathing Lower Body: Modified Independent (stands; has tried shower chair and has tripped over shower chair multiple times) Dressing Upper Body: Modified Independent Dressing Lower Body : Modified Independent Toileting: Modified Independent (wears Depends due to bowel incontinence) Instrumental Activities of Daily Living Cooking: (uses mom's meals:microwave meals; finger foods) Laundry: (caregivers complete) Medication Management with Strategies: (pill packs) Driving: Total Assistance Current Functional Mobility Sit To Stand: (occasional difficulty with sit to stand transfers) Box and Blocks Right Box and Blocks (bl (more content not included)... [facility] 03-28-2024 History of Presen t illness Narrative Episode Visit Count: 1 Therapist That Will Accept/Oversee The Plan Of Care: Selam Elena Start of Care Date: 03/28/24 Onset Date: 03/18/07 Plan of Care Certification Date: 03/28/24 Next Certification Due Date: 03/28/24 Patient Identified by Name and Date of : Yes [facility] OCCUPATIONAL THERAPY EVALUATION PLAN OF CARE: Assessment: Melanie Bird presents with diagnosis of Parkinson's disease that interferes with sit to stand transfers, feeding self, and grooming. The patient presents with impairments in coordination, strength, and symptom management. Based on her evaluation the following recommendations are made to enhance safety and independence: walk in shower with fold down bench would eliminate the need to step over a tub reducing fall risk, the fold down bench would allow patient to sit while bathing when needed and be put away when not needed and decrease risk of tripping. Patient reports tripping over removable shower chair on several occasions. A lift chair could assist with transfer ease and promote increased independence in home environment. An electric toothbrush requires less fine motor control making oral hygiene more manageable and reduces the impact of tremors on brushing thoroughness. Finally, patient could benefit from Gyenno Ruiz Twist anti tremor utensil to help counteract the effects of tremor improving self feeding ability. Patient declines follow up occupational therapy due to limited transportation and inaccessibility due to travel distance. Goals for Episode of Care: established 03/28/24 Patient will verbalize understanding OT recommendations to increase independence and quality of life (MET) Patient Goals: Obtain recommended DME for increased independence PLAN FOR NEXT VISIT: Patient demonstrates good understanding of plan of care and treatment. The above goals and plan of care were discussed and agreed upon by patient/family. SUBJECTIVE: OT evaluation for Parkinson's disease. Would like evaluation for recommended equipment. Functional Limitations: rising from a chair, feeding self, grooming Prior Level of Function: Independent without limitations Patient Goals: Obtain recommended DME for increased independence Intake Information: Prescription present Previous Treatment: None Falls Interview: No positive findings with falls interview Relevant History Past Relevant Medical Conditions: Parkinson's Disease, Diabetes, Depression Right or Left Handed: Right Employment: Medically Disabled Hobbies / Interests: watching HGTV Home Environment Patient Lives With: Self/Alone Assistance Available: Part-Time (2x/week 3 hours at a time assistance with laundry, washing dishes, cleaning bathroom/litter box) Home Type: Apt/Condo Entry To Home: No Stairs Tub/Shower Type: tub/shower with grab bar Laundry: aides complete Equipment Owned: Grab Bars- Shower, Grab Bars- Toilet, Elevated Toilet Seat, Walker- Wheeled Pain: Pain Pain Level: 0 Post Treatment Pain Post Treatment Pain Level: No Change PROMIS Scales 03/27/2024 Higher is Better Self-Eff Symptom - T Score 45 (Average) Self-Eff Symptom - Percentile 31 Cognitve Function - T Score 48 (within normal limits) Cognitive Function - Percentile 42 T-scores: mean of general population = 50. 5 points is clinically meaningfully difference Percentiles provide an indication of how the patient's score ranks in relation to the general population. Higher percentile rankings indicate better function/quality of life. 50th percentile is the average of the general population and indicates half of respondents had a worse score. OBJECTIVE MEASURES WITH LEVEL OF FUNCTION: Hand Strength R Barrel Charrer Helper Position 2 (lbs): 26 lbs L Barrel Charrer Helper Position 2 (lbs): 30 lbs UE AROM R UE AROM: WFL L UE AROM: WFL Current Activities Of Daily Living Feeding: Modified Independent (difficulty bringing spoon to mouth due to tremors) Grooming: Modified Independent (tires from teeth brushing, difficulty with thoroughness of task) Bathing Upper Body: Modified Independent (uses hand held shower) Bathing Lower Body: Modified Independent (stands; has tried shower chair and has tripped over shower chair multiple times) Dressing Upper Body: Modified Independent Dressing Lower Body : Modified Independent Toileting: Modified Independent (wears Depends due to bowel incontinence) Instrumental Activities of Daily Living Cooking: (uses mom's meals:microwave meals; finger foods) Laundry: (caregivers complete) Medication Management with Strategies: (pill packs) Driving: Total Assistance Current Functional Mobility Sit To Stand: (occasional difficulty with sit to stand transfers) Box and Blocks Right Box and Blocks (blocks per min): 47 blocks per min Left Box and Blocks (blocks per min): 50 blocks per min Education: Education Learning Preferences: Demonstration, Explanation, Performance, Printed Materials Barriers: None Learning/educational needs: Plan of Care Education Provided: Yes, see treatment interventions for education provided Education Provided To: Patient Education Mode/Type: Demonstration, Explanation/Discussion, Literature/Printed Materials, Performance Response to Education/Teach Back: States/Identifies, Return Demonstration TREATMENT: OT Treatment Interventions : Self-Snf Management Evaluation Self-Snf Management: 1: Pt educated in role of OT 2: feeding: trialed weighted utensil, weighted utensil + 1# wrist weight, weighted utensil + 2# wrist weight, spooning dried beans 3: Discussed shower safety with recommendation of walk in shower with fold down shower chair to limit trip hazards 4: grooming: educated in electric toothbrush to improve thoroughness of oral care 5: feeding: educated in Gyenno spoon for tremors with video 6: Discussed use of lift chair for increased safety with transfers in home environment. Skilled Intervention: Skilled judgment in the selection of proper modification for activity of daily living/home management based on clinical presentation, deficits, and needs. Educated the patient regarding recommendations and provided written instruction to facilitate compliance. Reviewed patient specific diagnosis in relation to activities of daily living/home management. Activity progression based on professional judgement. Billing * Evaluation Moderate Complexity: 1 Unit Self-Care/Home Management Treatment Minutes: 25 Skilled Treatment Time Minutes (timed and untimed codes): 47 Total Session Time (minutes): 47 Session Start Time : 1305 Session Stop Time : 1352 ALVARO Boyce documented in this encounter [facility] 03-21-2024 Telephone encounter Note Orders faxed as requested below. Effie Clemente MA [facility] 03-21-2024 Miscellaneous Notes Orders faxed as requested below. Effie Clemente MA Filed Order pended in [facility]. If agreeable please sign. Nursing to then fax order to [facility]. Effie Clemente MA Received and placed on PCP desk for review. Enedelia Gavin with [facility] Coverage Line called and she is going to refax request for PT and OT. Please call her back if fax doesn't come through. She states she will be there until 5 pm. Enedelia Gavin with [facility] Cover[facility] Line called and went through Pts notes. Looks like Batsheva sent an e-mail to her company manager about how to get the IT consult on non-skillable need. Enedelia is going to send fax requesting PT and OT to fax # [phone] form on providers desk when received Inna Small APRN.CNP Pt called in and reports Batsheva the from [facility] was supposed to send a request to providers office for a PT and OT evaluation in January. She reports she wanted it because Pt has Parkinson's and Pt has a hard time feeding herself and she wanted to get special spoons for her and a new lift chair. I see a document from 12/10/23 from [facility] but I didn't see mention of the above. Called and left a message for Batsheva with [facility] to fax orders to providers office or call back and talk with a triage nurse. Please call and advise Pt. documented in this encounter [facility] 03-20-2024 Telephone encounter Note Filed [facility] 03-20-2024 Telephone encounter Note Order pended in [facility]. If agreeable please sign. Nursing to then fax order to [facility]. Effie Clemente MA [facility] 03-17-2024 Telephone encounter Note Received and placed on PCP desk for review. [facility] 03-17-2024 Telephone encounter Note Enedelia Gavin with [facility] [facility] called and she is going to refax request for PT and OT. Please call her back if fax doesn't come through. She states she will be there until 5 pm. [facility] 03-10-2024 Telephone encounter Note Enedelia Gavin with [facility] [facility] called and went through Pts notes. Looks like Batsheva sent an e-mail to her company manager about how to get the IT consult on non-skillable need. Enedelia is going to send fax requesting PT and OT to fax # [phone]. [facility] 03-10-[address] form on providers desk when received Inna Small APRN.CNP [facility] 03-09-2024 Telephone encounter Note Pt called in and reports Batsheva the CM from [facility] was supposed to send a request to providers office for a PT and OT evaluation in January. She reports she wanted it because Pt has Parkinson's and Pt has a hard time feeding herself and she wanted to get special spoons for her and a new lift chair. I see a document from 12/10/23 from [facility] but I didn't see mention of the above. Called and left a message for Batsheva with [facility] to fax orders to providers office or call back and talk with a triage nurse. Please call and advise Pt. [facility] 03-08-2024 Telephone encounter Note Spoke with pt and information listed below given. Pt verbalizes understanding. Kiki Farias LPN [facility] 03-08-2024 Miscellaneous Notes Spoke with pt and information listed below given. Pt verbalizes understanding. Kiki Farias LPN Overdue for vit d level, ordered. Thank you Inna Small APRN.CNP PDMP website checked and validated. All prescriptions have been APPROPRIATELY filled. No suspicious activity was identified. 03/08/2024 by Inna Small APRN.CNP The patient has been identified by name and date of : Yes Caregiver verified no other encounters exist for this prescription request: Yes Caregiver confirmed with patient/requestor that no other refills are due, in the near future, with this provider at this time: Yes The last office visit in the department: 01/20/2024 Does the patient have a future office visit with this provider/department: 04/28/2024 Requested Prescriptions Pending Prescriptions Disp Refills acyclovir (ZOVIRAX) 400 mg tablet 60 tablet 11 Sig: Take 1 tablet by mouth two times a day. zolpidem (AMBIEN) 5 mg tablet 30 tablet 2 Sig: Take 1 tablet by mouth at bedtime as needed for sedation for up to 90 days. TAKE 1 TABLET BY MOUTH AT BEDTIME NEEDED FOR SEDATION rOPINIRole (REQUIP) 0.5 mg tablet 60 tablet 11 Sig: TAKE 1 TABLET BY MOUTH TWICE A DAY (NOON AND BEDTIME) Cholecalciferol, Vitamin D3, (VITAMIN D-3) 50 mcg (2,000 unit) cap 30 capsule 11 Sig: Take 1 capsule by mouth once daily. Radha Spencer RN March 08, 2024 10:22 AM documented in this encounter [facility] 03-08-2024 Telephone encounter Note Overdue for vit d level, ordered. Thank you Inna Small APRN.SABINE PDMP website checked and validated. All prescriptions have been APPROPRIATELY filled. No suspicious activity was identified. 03/08/2024 by Inna Small APRN.SABINE [facility] 03-08-2024 Telephone encounter Note The patient has been identified by name and date of : Yes Caregiver verified no other encounters exist for this prescription request: Yes Caregiver confirmed with patient/requestor that no other refills are due, in the near future, with this provider at this time: Yes The last office visit in the department: 01/20/2024 Does the patient have a future office visit with this provider/department: 04/28/2024 Requested Prescriptions Pending Prescriptions Disp Refills acyclovir (ZOVIRAX) 400 mg tablet 60 tablet 11 Sig: Take 1 tablet by mouth two times a day. zolpidem (AMBIEN) 5 mg tablet 30 tablet 2 Sig: Take 1 tablet by mouth at bedtime as needed for sedation for up to 90 days. TAKE 1 TABLET BY MOUTH AT BEDTIME NEEDED FOR SEDATION rOPINIRole (REQUIP) 0.5 mg tablet 60 tablet 11 Sig: TAKE 1 TABLET BY MOUTH TWICE A DAY (NOON AND BEDTIME) Cholecalciferol, Vitamin D3, (VITAMIN D-3) 50 mcg (2,000 unit) cap 30 capsule 11 Sig: Take 1 capsule by mouth once daily. Radha Spencer RN March 08, 2024 10:22 AM [facility] 01-20-2024 Instructions Inna Small APRN.CNP - 01/20/2024 9:26 AM EST BONE MINERAL DENSITY PATIENT INSTRUCTIONS ========= Bone mineral density testing measures the amount of calcium in certain parts of your bones. This information determines how strong your bones are. The test is used to detect osteoporosis, a disease in which the bone's mineral content and density are low, increasing a person's risk of fractures. The lumbar spine (lower back) and the hip are the skeletal sites usually examined. For the test, remember that: 1. You cannot take this test if you are . 2. Eat a normal diet on the day of the test. 3. Take your medications as you normally would. 4. DO NOT take calcium supplements (such as Tums) for 24 hours before the test. 5. On the day of the test, leave valuables (jewelry or credit cards) at home. 6. The test should be performed prior to oral, rectal or IV contrast studies, or at least 7 days after any of these studies. For the test, you may be asked to wear a hospital gown. You will lie on your back, on a padded table, in a comfortable position. Generally, you can resume your usual activities immediately. documented in this encounter [facility] 01-20-2024 Note HNO ID: [id number] Author: INNA SMALL APRN.SABINE Service: ? Author Type: Nurse Practitioner Type: Progress Notes Filed: 01/20/2024 09:32 Note Text: CC: Patient presents with: Recheck: 6 month follow up HPI Melanie Bird is a 68 year old female who presents today for routine follow up. DIABETES MELLITUS: Ms. Bird denies increased frequency of urination, chest pain or dyspnea , numbness, tingling or pain in extremities, new or unusual visual symptoms, low sugar/hypoglycemic reactions, weight loss/gain, lightheadedness/dizziness, and bowel changes/loose stools. Follows a diabetic diet some of the time but has been snacking more often due to not being able to go out as much. She is compliant with medication(s) and is tolerating med(s) without any side effects. She reports checking her glucose on a once a day schedule with sugars in the fasting under 200 range. Patient's last HgA1C was Hemoglobin A1C (%) Date Value 01/11/2024 7.2 11/15/2020 7.0 09/02/2020 7.2 Hemoglobin A1C (POCT) (%) Date Value 07/15/2023 6.7 04/15/2023 7.1 ) Has noticed intolerance to heat for the last few months. It is to the point she has not turned on her heat at home even though it is often 20-30 degrees outside. Feels like she is always sweaty and tired too. Denies recurrent infections, fever, chills, confusion, dizziness, syncope, new weakness, or headaches. Has parkinson and follows with neurology. Gets meals delivered but is able to bathe herself, feed herself, and do other daily self care routines. Is awaiting passport to come and evaluate her for walk in shower to allow her to continue with being self sufficient but to do so safely. REVIEW OF SYSTEMS See HPI PAST MEDICAL HISTORY Diagnosis Date Depression Diabetes mellitus type 2, uncontrolled High cholesterol History of colon polyps History of gallstones IBS (irritable bowel syndrome) Obesity 04/25/2013 BMI 48.43 ARIANA (obstructive sleep apnea) 03/06/2013 Parkinson disease (HCC) PAST SURGICAL HISTORY Procedure Laterality Date ANAL SPHINCTEROPLASTY SPHINCTEROPLASTY ANAL W/ IMPLANT ARTIFICIAL SPHINCTER ADULT BARIATRIC SURGERY HX 05/28/2021 CATARACT EXTRACTION HX Bilateral 08/2012 COLONOSCOPY GEN ANES 04/2019 INCISE FINGER TENDON SHEATH 12/20/2012 Left 3rd trigger finger release MANIPULATION KNEE JOINT UNDER GENERAL ANESTHESIA Left 01/23/2022 Left knee manipulation under anesthesia PAST SURGICAL HISTORY OF 06/2012 Interstim PAST SURGICAL HISTORY OF Right trigger thumb REMOVAL GALLBLADDER 2000 REMOVAL OF OVARY/TUBE(S) Bilateral 07/31/2022 Laparoscopic BSO and Myomectomy at [facility]- Dr. Delacruz TOTAL KNEE REPLACEMENT Left 10/29/2021 Left robotic total knee replacement ALLERGIES Seroquel [Quetiapine Fumarate] and Victoza [Liraglutide] MEDICATIONS sertraline (ZOLOFT) 100 mg tablet Take 1 tablet by mouth once daily. magnesium oxide (MAG-OX) 400 mg (241.3 mg magnesium) tablet Take 2 tablets by mouth once daily. ascorbic acid, vitamin C, (VITAMIN C) 500 mg tablet Take 1 tablet by mouth once daily. semaglutide (OZEMPIC) 2 mg/dose (8 mg/3 mL) pen injector Inject 2 mg subcutaneously one time a week. atorvastatin (LIPITOR) 20 mg tablet Take 1 tablet by mouth once daily. zolpidem (AMBIEN) 5 mg tablet Take 1 tablet by mouth at bedtime as needed for sedation for up to 90 days. TAKE 1 TABLET BY MOUTH AT BEDTIME NEEDED FOR SEDATION gabapentin (NEURONTIN) 300 mg capsule Take 3 capsules by mouth daily at lunch gabapentin (NEURONTIN) 600 mg tablet Take 3 tablets by mouth daily at bedtime for 180 days. fexofenadine (SEFERINO) 180 mg tablet Take 1 tablet by mouth once daily. amantadine HCl (SYMMETREL) 100 mg capsule Take 100 mg by mouth two times a day. INGREZZA 80 mg capsule Take 1 capsule by mouth once daily. insulin glargine U-300 conc (TOUJEO SOLOSTAR U-300 INSULIN) 300 unit/mL (1.5 mL) Inject 16 Units subcutaneously every morning. diclofenac (VOLTAREN) 1 % topical gel Apply 2 g to affected area two times a day. (Patient not taking: Reported on 10/25/2023) acyclovir (ZOVIRAX) 400 mg tablet Take 1 tablet by mouth two times a day. rOPINIRole (REQUIP) 0.5 mg tablet TAKE 1 TABLET BY MOUTH TWICE A DAY (NOON AND BEDTIME) Cholecalciferol, Vitamin D3, (VITAMIN D-3) 50 mcg (2,000 unit) cap Take 1 capsule by mouth once daily. flash glucose sensor (FREESTYLE IZABELLA 2 SENSOR) kit Use to monitor blood sugars 4 times daily polyethylene glycol 3350 17 gram/dose powder Take 17 g by mouth two times a day as needed for constipation. Drink a mix of 1 scoop in 8oz of water/beverage once daily as needed for constipation. flash glucose scanning reader (FREESTYLE IZABELLA 2 READER) 1 Each four times daily. checking blood sugars DX E11.9 Insulin Yes pen needle, diabetic (NOVOFINE PLUS) 32 gauge x 1/6 Use to inject insulin once daily OXYGEN, HOME THERAPY, 2 L/min by Mask route daily at bedtime. CPAP 2L at night karl (more content not included)... [facility] 01-20-2024 History of Presen t illness Narrative CC: Patient presents with: Recheck: 6 month follow up HPI Melanie Bird is a 68 year old female who presents today for routine follow up. DIABETES MELLITUS: Ms. Bird denies increased frequency of urination, chest pain or dyspnea , numbness, tingling or pain in extremities, new or unusual visual symptoms, low sugar/hypoglycemic reactions, weight loss/gain, lightheadedness/dizziness, and bowel changes/loose stools. Follows a diabetic diet some of the time but has been snacking more often due to not being able to go out as much. She is compliant with medication(s) and is tolerating med(s) without any side effects. She reports checking her glucose on a once a day schedule with sugars in the fasting under 200 range. Patient's last HgA1C was Hemoglobin A1C (%) Date Value 01/11/2024 7.2 11/15/2020 7.0 09/02/2020 7.2 Hemoglobin A1C (POCT) (%) Date Value 07/15/2023 6.7 04/15/2023 7.1 ) Has noticed intolerance to heat for the last few months. It is to the point she has not turned on her heat at home even though it is often 20-30 degrees outside. Feels like she is always sweaty and tired too. Denies recurrent infections, fever, chills, confusion, dizziness, syncope, new weakness, or headaches. Has parkinson and follows with neurology. Gets meals delivered but is able to bathe herself, feed herself, and do other daily self care routines. Is awaiting passport to come and evaluate her for walk in shower to allow her to continue with being self sufficient but to do so safely. REVIEW OF SYSTEMS See HPI PAST MEDICAL HISTORY Diagnosis Date Depression Diabetes mellitus type 2, uncontrolled High cholesterol History of colon polyps History of gallstones IBS (irritable bowel syndrome) Obesity 04/25/2013 BMI 48.43 ARIANA (obstructive sleep apnea) 03/06/2013 Parkinson disease (HCC) PAST SURGICAL HISTORY Procedure Laterality Date ANAL SPHINCTEROPLASTY SPHINCTEROPLASTY ANAL W/ IMPLANT ARTIFICIAL SPHINCTER ADULT BARIATRIC SURGERY HX 05/28/2021 CATARACT EXTRACTION HX Bilateral 08/2012 COLONOSCOPY GEN ANES 04/2019 INCISE FINGER TENDON SHEATH 12/20/2012 Left 3rd trigger finger release MANIPULATION KNEE JOINT UNDER GENERAL ANESTHESIA Left 01/23/2022 Left knee manipulation under anesthesia PAST SURGICAL HISTORY OF 06/2012 Interstim PAST SURGICAL HISTORY OF Right trigger thumb REMOVAL GALLBLADDER 2001 REMOVAL OF OVARY/TUBE(S) Bilateral 07/31/2022 Laparoscopic BSO and Myomectomy at [facility]- Dr. Delacruz TOTAL KNEE REPLACEMENT Left 10/29/2021 Left robotic total knee replacement ALLERGIES Seroquel [Quetiapine Fumarate] and Victoza [Liraglutide] MEDICATIONS sertraline (ZOLOFT) 100 mg tablet Take 1 tablet by mouth once daily. magnesium oxide (MAG-OX) 400 mg (241.3 mg magnesium) tablet Take 2 tablets by mouth once daily. ascorbic acid, vitamin C, (VITAMIN C) 500 mg tablet Take 1 tablet by mouth once daily. semaglutide (OZEMPIC) 2 mg/dose (8 mg/3 mL) pen injector Inject 2 mg subcutaneously one time a week. atorvastatin (LIPITOR) 20 mg tablet Take 1 tablet by mouth once daily. zolpidem (AMBIEN) 5 mg tablet Take 1 tablet by mouth at bedtime as needed for sedation for up to 90 days. TAKE 1 TABLET BY MOUTH AT BEDTIME NEEDED FOR SEDATION gabapentin (NEURONTIN) 300 mg capsule Take 3 capsules by mouth daily at lunch gabapentin (NEURONTIN) 600 mg tablet Take 3 tablets by mouth daily at bedtime for 180 days. fexofenadine (SEFERINO) 180 mg tablet Take 1 tablet by mouth once daily. amantadine HCl (SYMMETREL) 100 mg capsule Take 100 mg by mouth two times a day. INGREZZA 80 mg capsule Take 1 capsule by mouth once daily. insulin glargine U-300 conc (TOUJEO SOLOSTAR U-300 INSULIN) 300 unit/mL (1.5 mL) Inject 16 Units subcutaneously every morning. diclofenac (VOLTAREN) 1 % topical gel Apply 2 g to affected area two times a day. (Patient not taking: Reported on 10/25/2023) acyclovir (ZOVIRAX) 400 mg tablet Take 1 tablet by mouth two times a day. rOPINIRole (REQUIP) 0.5 mg tablet TAKE 1 TABLET BY MOUTH TWICE A DAY (NOON AND BEDTIME) Cholecalciferol, Vitamin D3, (VITAMIN D-3) 50 mcg (2,000 unit) cap Take 1 capsule by mouth once daily. flash glucose sensor (ZyncdSTYLE IZABELLA 2 SENSOR) kit Use to monitor blood sugars 4 times daily polyethylene glycol 3350 17 gram/dose powder Take 17 g by mouth two times a day as needed for constipation. Drink a mix of 1 scoop in 8oz of water/beverage once daily as needed for constipation. flash glucose scanning reader (ZyncdSTYLE IZABELLA 2 READER) 1 Each four times daily. checking blood sugars DX E11.9 Insulin Yes pen needle, diabetic (NOVOFINE PLUS) 32 gauge x 1/6 Use to inject insulin once daily OXYGEN, HOME THERAPY, 2 L/min by Mask route daily at bedtime. CPAP 2L at night cloNIDine HCl (CATAPRES) 0.1 mg tablet Take 1 tablet by mouth once daily. omeprazole (PRILOSEC) 20 mg capsule Take 20 mg by mouth once daily. blood sugar diagnostic (BLOOD GLUCOSE TEST) test strip Test Four times a day. Insulin Dep? Yes E11.9 DM 2 calcium carbonate 600 mg-cholecalciferol 200 units (CALCARB 600 WITH VITAMIN D) 600 mg(1,500mg) -200 unit tab Take 1 tablet by mouth twice daily. wheat dextrin (BENEFIBER SUGAR FREE, DEXTRIN,) 3 gram/4 gram powd 1/2 tablespoon per day x2 weeks. Then increase by 1/2 tablespoon every 2 weeks until you are taking 3 tablespoons per day in divided doses. (Patient taking differently: 1/2 tablespoon per day x2 weeks. Then increase by 1/2 tablespoon every 2 weeks until you are taking 3 tablespoons per day in divided doses. Takes one teaspoon daily) docusate sodium (COLACE) 100 mg capsule Take 1 capsule by mouth twice daily as needed for Constipation. COMPOUNDED PRESCRIPTION Oxygen supplies dx: R79.81 R06.02 blood sugar diagnostic (ONETOUCH ULTRA TEST) test strip Test blood sugar(s) 4 times daily. Dx: Type 2 DM - Uncontrolled E11.65 Insulin: Yes FAMILY HISTORY Problem Relation Age of Onset Diabetes Mother Heart Mother Diabetes Father Heart Father Colon Cancer Sister Asthma No Family History Social History Tobacco Use Smoking status: Former Current packs/day: 0.00 Average packs/day: 0.1 packs/day for 3.0 years (0.3 ttl pk-yrs) Types: Cigarettes Start date: 04/25/1985 Quit date: 04/25/1988 Years since quittin.7 Smokeless tobacco: Never Tobacco comments: No smoking in childhood home. Roomate of last 10 years smoked while living with patient. Vaping Use Vaping status: Never Used Substance Use Topics Alcohol use: Not Currently Drug use: Never PHYSICAL EXAM BP 112/68 Pulse 72 Resp 16 Wt 84.4 kg (186 lb) LMP 04/10/2012 (Approximate) SpO2 96% BMI 31.93 kg/m General Appearance: well appearing, in no acute distress, alert Eyes: conjunctiva pink and moist, no icterus, sclera white, non-injected Lungs: Lungs clear to auscultation. No wheezing, rhonchi, rales. Heart: RRR without murmur, gallop, or rubs. No ectopy Health maintenance reviewed with patient: Depression Screening Never done RSV Vaccine(1 - Risk 60-74 years 1-dose series) Never done Bone Density Screening Never done Covid-19 Vaccine(2023- season) due on 01/04/2024 Diabetic Foot Exam due on 01/14/2024 Mammogram Screening due on 04/21/2024 HbA1C due on 07/10/2024 Annual PCP Team Chronic Disease Visit due on 07/14/2024 Colorectal Cancer Screening due on 09/19/2024 Dilated Retinal Exam due on 10/27/2024 Urine Albumin:Creatinine Ratio due on 01/10/2025 LDL Cholesterol due on 01/10/2025 DTaP,Tdap,Td Vaccine(5 - Td or Tdap) due on 10/03/2030 Influenza Vaccine Completed Advance Directive Discussion Completed Hepatitis C Screening Completed Shingrix Vaccine Completed Pneumococcal Vaccine: 65+ Completed Cervical Cancer Screening Discontinued DATA REVIEWED: Most recent labs ASSESSMENT/PLAN: 1. Diabetes mellitus type 2 (HCC) - ICD9: 250.00, ICD10: E11.9 (primary diagnosis) - Worsening control - Continue current medications but increasing toujeo - Blood glucose monitoring on a once daily schedule - Counseled on healthy diet and regular exercise - Discussed need for and benefit of weight loss. BMI 31.93 kg/(m^2) - INSULIN GLARGINE (U-300) CONC. 300 UNIT/ML (1.5 ML) SUBCUTANEOUS PEN - COMPREHENSIVE METABOLIC PANEL - HEMOGLOBIN A1C 2. Intolerance to heat - ICD9: 780.99, ICD10: R68.89 Unsure on cause. Will. Further evaluate - COMPLETE BLOOD COUNT AND DIFFERENTIAL - VITAMIN B12 - THYROID STIMULATING HORMONE 3. Sweating abnormality - ICD9: 705.89, ICD10: L74.9 As above - COMPLETE BLOOD COUNT AND DIFFERENTIAL - VITAMIN B12 - THYROID STIMULATING HORMONE 4. Other fatigue - ICD9: 780.79, ICD10: R53.83 See #2 - COMPLETE BLOOD COUNT AND DIFFERENTIAL - VITAMIN B12 - THYROID STIMULATING HORMONE 5. Parkinson's disease, unspecified whether dyskinesia present, unspecified whether manifestations fluctuate (HCC) - ICD9: 332.0, ICD10: G20.A1 Stable Continue with plans to improve safety in home and any recommendations by neurology 6. Encounter for immunization - ICD9: V03.89, ICD10: Z23 - RSV PRINTED PHARMACY INSTRUCTIONS 7. Encounter for screening mammogram for breast cancer - ICD9: V76.12, ICD10: Z12.31 - ANGELITA SCREENING W TEOFILO 8. Asymptomatic menopause - ICD9: V49.81, ICD10: Z78.0 - DXA-AXIAL SKELETON - BD DXA TRABECULAR BONE SCORE (TBS) Prescription instructions reviewed with patient as applicable. Potential red flag symptoms discussed with the patient. Reviewed appropriate action plan to take if red flag symptoms occur. Patient agreeable to treatment plan. Inna Small APRN.CNP documented in this encounter [facility] 01-05-2024 Telephone encounter Note The patient has been identified by name and date of : Yes Caregiver verified no other encounters exist for this prescription request: Yes Caregiver confirmed with patient/requestor that no other refills are due, in the near future, with this provider at this time: Yes The last office visit in the department: 07/15/2023 Does the patient have a future office visit with this provider/department: Yes 01/20/2024 Requested Prescriptions Pending Prescriptions Disp Refills sertraline (ZOLOFT) 100 mg tablet 30 tablet 5 Sig: Take 1 tablet by mouth once daily. magnesium oxide (MAG-OX) 400 mg (241.3 mg magnesium) tablet 60 tablet 11 Sig: Take 2 tablets by mouth once daily. ascorbic acid, vitamin C, (VITAMIN C) 500 mg tablet 30 tablet 11 Sig: Take 1 tablet by mouth once daily. Myriam Karimi RN [facility] 01-05-2024 Miscellaneous Notes The patient has been identified by name and date of : Yes Caregiver verified no other encounters exist for this prescription request: Yes Caregiver confirmed with patient/requestor that no other refills are due, in the near future, with this provider at this time: Yes The last office visit in the department: 07/15/2023 Does the patient have a future office visit with this provider/department: Yes 01/20/2024 Requested Prescriptions Pending Prescriptions Disp Refills sertraline (ZOLOFT) 100 mg tablet 30 tablet 5 Sig: Take 1 tablet by mouth once daily. magnesium oxide (MAG-OX) 400 mg (241.3 mg magnesium) tablet 60 tablet 11 Sig: Take 2 tablets by mouth once daily. ascorbic acid, vitamin C, (VITAMIN C) 500 mg tablet 30 tablet 11 Sig: Take 1 tablet by mouth once daily. Myriam Karimi RN documented in this encounter [facility] 01-04-2024 Note Patient Outreach (IN [facility]) MELANIE BIRD ([id number]) 1955 F Date Time Provider Department 01/04/24 THUYMODESTA During your visit today, we recorded the following information about you: Allergies As of Date: 01/04/2024 Noted Allergy Reaction SEROQUEL (QUETIAPINE FUMARATE) 11/15/2012 1 - Mental Status Change VICTOZA (LIRAGLUTIDE) 09/21/2013 8 - GI Upset Date Reviewed: 10/25/2023 Reviewed by: Vera Rodarte MA - Fully Assessed Visit Diagnoses:Diabetes mellitus type 2 (HCC) [E11.9] Hyperlipidemia with target LDL less than 70 [E78.5] Order(s):ALBUMIN/CREATININE RATIO, URINE [SQUACR] Order #: [id number] FUTURE BASIC METABOLIC PANEL [SQBMP] Order #: [id number] FUTURE HEMOGLOBIN A1C [HUGTK3D] Order #: [id number] FUTURE LIPID PANEL BASIC [SQLIPB] Order #: [id number] FUTURE Prescriptions as of 01/07/2024 - sertraline (ZOLOFT) 100 mg tablet Take 1 tablet by mouth once daily. - magnesium oxide (MAG-OX) 400 mg (241.3 mg magnesium) tablet Take 2 tablets by mouth once daily. - ascorbic acid, vitamin C, (VITAMIN C) 500 mg tablet Take 1 tablet by mouth once daily. - semaglutide (OZEMPIC) 2 mg/dose (8 mg/3 mL) pen injector Inject 2 mg subcutaneously one time a week. - atorvastatin (LIPITOR) 20 mg tablet Take 1 tablet by mouth once daily. - zolpidem (AMBIEN) 5 mg tablet Take 1 tablet by mouth at bedtime as needed for sedation for up to 90 days. TAKE 1 TABLET BY MOUTH AT BEDTIME NEEDED FOR SEDATION - gabapentin (NEURONTIN) 300 mg capsule Take 3 capsules by mouth daily at lunch - gabapentin (NEURONTIN) 600 mg tablet Take 3 tablets by mouth daily at bedtime for 180 days. - fexofenadine (SEFERINO) 180 mg tablet Take 1 tablet by mouth once daily. - amantadine HCl (SYMMETREL) 100 mg capsule Take 100 mg by mouth two times a day. - INGREZZA 80 mg capsule Take 1 capsule by mouth once daily. - insulin glargine U-300 conc (TOUJEO SOLOSTAR U-300 INSULIN) 300 unit/mL (1.5 mL) Inject 16 Units subcutaneously every morning. - diclofenac (VOLTAREN) 1 % topical gel Apply 2 g to affected area two times a day. - acyclovir (ZOVIRAX) 400 mg tablet Take 1 tablet by mouth two times a day. - rOPINIRole (REQUIP) 0.5 mg tablet TAKE 1 TABLET BY MOUTH TWICE A DAY (NOON AND BEDTIME) - Cholecalciferol, Vitamin D3, (VITAMIN D-3) 50 mcg (2,000 unit) cap Take 1 capsule by mouth once daily. - flash glucose sensor (FREESTYLE IZABELLA 2 SENSOR) kit Use to monitor blood sugars 4 times daily - polyethylene glycol 3350 17 gram/dose powder Take 17 g by mouth two times a day as needed for constipation. Drink a mix of 1 scoop in 8oz of water/beverage once daily as needed for constipation. - flash glucose scanning reader (FREESTYLE IZABELLA 2 READER) 1 Each four times daily. checking blood sugars DX E11.9 Insulin Yes - pen needle, diabetic (NOVOFINE PLUS) 32 gauge x 1/6 Use to inject insulin once daily - OXYGEN, HOME THERAPY, 2 L/min by Mask route daily at bedtime. CPAP 2L at night - cloNIDine HCl (CATAPRES) 0.1 mg tablet Take 1 tablet by mouth once daily. - omeprazole (PRILOSEC) 20 mg capsule Take 20 mg by mouth once daily. - blood sugar diagnostic (BLOOD GLUCOSE TEST) test strip Test Four times a day. Insulin Dep? Yes E11.9 DM 2 - calcium carbonate 600 mg-cholecalciferol 200 units (CALCARB 600 WITH VITAMIN D) 600 mg(1,500mg) -200 unit tab Take 1 tablet by mouth twice daily. - wheat dextrin (BENEFIBER SUGAR FREE, DEXTRIN,) 3 gram/4 gram powd 1/2 tablespoon per day x2 weeks. Then increase by 1/2 tablespoon every 2 weeks until you are taking 3 tablespoons per day in divided doses. - docusate sodium (COLACE) 100 mg capsule Take 1 capsule by mouth twice daily as needed for Constipation. - COMPOUNDED PRESCRIPTION Oxygen supplies dx: R79.81 R06.02 - blood sugar diagnostic ([place] CinemaTOUCH ULTRA TEST) test strip Test blood sugar(s) 4 times daily. Dx: Type 2 DM - Uncontrolled E11.65 Insulin: Yes Problem List As Of Date 01/04/2024 Noted Resolved Diabetes mellitus type 2 (HCC) [E11.9] 11/15/2012 PTSD (post-traumatic stress disorder) [F43.10] 11/15/2012 Schizoaffective disorder [F25.9] 11/15/2012 06/23/2016 Parkinson disease (HCC) [G20.A1] 11/15/2012 12/03/2017 RLS (restless legs syndrome) [G25.81] 11/22/2012 Wheezing [R06.2] 11/29/2012 08/12/2016 Movement disorder [G25.9] 12/28/2012 08/12/2016 Low oxygen saturation [R79.81] 12/28/2012 Schizophrenia (HCC) [F20.9] 01/04/2013 02/06/2014 Tardive dyskinesia [G24.01] 01/04/2013 Hyperlipidemia with target LDL less than 70 [E7*01/04/2013 Nausea [R11.0] 02/09/2013 08/12/2016 SOB (shortness of breath) on exertion [R06.02] 02/09/2013 08/12/2016 Urinary incontinence [R32] 02/09/2013 03/28/2013 ARIANA (obstructive sleep apnea) [G47.33] 03/06/2013 Urgency of urination [R39.15] 03/09/2013 07/11/2013 Frequency of urination [R35.0] 03/09/2013 07/11/2013 Obesity [E66.9 (more content not included)... [facility] 12-15-2023 Telephone encounter Note Prescription Refill Information The patient has been identified by name and date of : Yes Caregiver verified no other encounters exist for this prescription request: Yes Caregiver confirmed with patient/requestor that no other refills are due, in the near future, with this provider at this time: Yes The last office visit in the department: 07/15/23 Does the patient have a future office visit with this provider/department: Yes Requested Prescriptions Pending Prescriptions Disp Refills atorvastatin (LIPITOR) 20 mg tablet 28 tablet 11 Sig: Take 1 tablet by mouth once daily. zolpidem (AMBIEN) 5 mg tablet 30 tablet 2 Sig: Take 1 tablet by mouth at bedtime as needed for sedation for up to 90 days. TAKE 1 TABLET BY MOUTH AT BEDTIME NEEDED FOR SEDATION Selena Vinson LPN December 15, 2023 1:21 PM [facility] 12-15-2023 Miscellaneous Notes Prescription Refill Information The patient has been identified by name and date of : Yes Caregiver verified no other encounters exist for this prescription request: Yes Caregiver confirmed with patient/requestor that no other refills are due, in the near future, with this provider at this time: Yes The last office visit in the department: 07/15/23 Does the patient have a future office visit with this provider/department: Yes Requested Prescriptions Pending Prescriptions Disp Refills atorvastatin (LIPITOR) 20 mg tablet 28 tablet 11 Sig: Take 1 tablet by mouth once daily. zolpidem (AMBIEN) 5 mg tablet 30 tablet 2 Sig: Take 1 tablet by mouth at bedtime as needed for sedation for up to 90 days. TAKE 1 TABLET BY MOUTH AT BEDTIME NEEDED FOR SEDATION Selena Vinson LPN December 15, 2023 1:21 PM documented in this encounter [facility] 12-13-2023 Telephone encounter Note Pt calls in to report she needs a refill on Ozempic also. Davina Murray LPN [facility] 12-13-2023 Miscellaneous Notes Pt calls in to report she needs a refill on Ozempic also. Davina Murray LPN The patient has been identified by name and date of : Yes Caregiver verified no other encounters exist for this prescription request: Yes Caregiver confirmed with patient/requestor that no other refills are due, in the near future, with this provider at this time: Yes The last office visit in the department: 07/15/2023 Does the patient have a future office visit with this provider/department: Yes 01/20/2024 Requested Prescriptions Pending Prescriptions Disp Refills zolpidem (AMBIEN) 5 mg tablet 30 tablet 2 Sig: Take 1 tablet by mouth at bedtime as needed for sedation for up to 90 days. TAKE 1 TABLET BY MOUTH AT BEDTIME NEEDED FOR SEDATION atorvastatin (LIPITOR) 20 mg tablet 28 tablet 11 Sig: Take 1 tablet by mouth once daily. Myriam Karimi RN documented in this encounter [facility] 12-10-2023 Telephone encounter Note The patient has been identified by name and date of : Yes Caregiver verified no other encounters exist for this prescription request: Yes Caregiver confirmed with patient/requestor that no other refills are due, in the near future, with this provider at this time: Yes The last office visit in the department: 07/15/2023 Does the patient have a future office visit with this provider/department: Yes 01/20/2024 Requested Prescriptions Pending Prescriptions Disp Refills zolpidem (AMBIEN) 5 mg tablet 30 tablet 2 Sig: Take 1 tablet by mouth at bedtime as needed for sedation for up to 90 days. TAKE 1 TABLET BY MOUTH AT BEDTIME NEEDED FOR SEDATION atorvastatin (LIPITOR) 20 mg tablet 28 tablet 11 Sig: Take 1 tablet by mouth once daily. Myriam Karimi RN [facility] 12-09-2023 Telephone encounter Note [facility] agency on aging and disability paperwork signed and faxed [facility] Amor, PHYSICAL THERAPY DIRECTOR December 09, 2023 1:35 PM [facility] 12-09-2023 Miscellaneous Notes [facility] agency on aging and disability paperwork signed and faxed Jannet Shorting Carissa Chinchilla LPN December 09, 2023 1:35 PM documented in this encounter [facility] 11-10-2023 Telephone encounter Note The patient has been identified by name and date of : Yes Pharmacy Caregiver verified no other encounters exist for this prescription request: Yes Caregiver confirmed with patient/requestor that no other refills are due, in the near future, with this provider at this time: Yes The last office visit in the department: 07/15/2023 Does the patient have a future office visit with this provider/department: Yes 01/20/2024 Requested Prescriptions Pending Prescriptions Disp Refills gabapentin (NEURONTIN) 300 mg capsule 90 capsule 5 Sig: Take 3 capsules by mouth daily at lunch gabapentin (NEURONTIN) 600 mg tablet 90 tablet 5 Sig: Take 3 tablets by mouth daily at bedtime for 180 days. Divina Alcantara LPN November 10, 2023 3:53 PM [facility] 11-10-2023 Miscellaneous Notes The patient has been identified by name and date of : Yes Pharmacy Caregiver verified no other encounters exist for this prescription request: Yes Caregiver confirmed with patient/requestor that no other refills are due, in the near future, with this provider at this time: Yes The last office visit in the department: 07/15/2023 Does the patient have a future office visit with this provider/department: Yes 01/20/2024 Requested Prescriptions Pending Prescriptions Disp Refills gabapentin (NEURONTIN) 300 mg capsule 90 capsule 5 Sig: Take 3 capsules by mouth daily at lunch gabapentin (NEURONTIN) 600 mg tablet 90 tablet 5 Sig: Take 3 tablets by mouth daily at bedtime for 180 days. Divina Alcantara LPN November 10, 2023 3:53 PM documented in this encounter [facility] 10-25-2023 History of Presen t illness Narrative Kelli Davis PA-C Department of Orthopaedics Orthopaed[facility] [address] [facility] [address] Dept: [phone] Dept October 25, [address] Inna Small for an opinion regarding left shoulder pain. My final recommendations will be communicated back to the requesting physician by way of shared Medical record or letter to requesting physician via [place] mail. 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 Melanie Bird is a 68 year old female who presents with left shoulder pain which has been bothering her for the past several months. No particular injury. Pain occurs mainly when she is trying to reach behind her back. 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 She is unable to tolerate oral NSAIDs as she has had a gastric bypass surgery. She does take Tylenol which is not very helpful. Pain today is a 5 out of 10 sharp aching along the lateral aspect of the shoulder. ASSESSMENT: M25.819 Shoulder impingement (primary encounter diagnosis) M25.512, G89.29 Chronic left shoulder pain PLAN: X-rays are rather benign, her exam is consistent with some shoulder impingement. I did offer to provide her with a corticosteroid injection today. She declines as she does not like needles. I did offer to send her to some physical therapy to work on some shoulder stabilization exercises, she would prefer to do a home program. She was provided with a packet of shoulder exercises. Happy to see her back at any time if she reconsiders a injection. Ms. Melanie Bird was advised as to contrast therapies and/or to take analgesics/anti-inflammatories as needed and all contraindications were reviewed. OBJECTIVE: Ms. Melanie Bird is a pleasant 68 year old in no apparent distress. Gen:LMP 04/10/2012 nl development, non obese, no deformities ENT: Normocephalic, normal hearing, moist mucosa CV: Pulses:Radial= 2+ and symmetric, capillary refill < 2 secs, no peripheral edema/varicosities Skin: no rash, bruising or lesions. Good turgor. Psych: cooperative and appropriate, alert and oriented x 3, good mood and affect. Musculoskeletal: Supple range of motion of the cervical spine without pain. Spurling signs are negative. No atrophy of the deltoid and shoulder musculature. Left shoulder is nontender to palpation over the SC joint, clavicle and AC joint. Mild tenderness to palpation over the posterior shoulder, mildly tender at anterior lateral corner of the shoulder and greater tuberosity. Mildly tender at the bicipital groove and coracoid. Active range of motion is 155 degrees of forward elevation, 45 degrees external rotation, and internal rotation to the ASIS. Passive range of motion is 155 degrees, 45 degrees, respectively. No laxity with anterior and posterior stress. Positive Neer and positive Palomino impingement signs. 5/5 strength with supraspinatus, infraspinatus and subscapularis. Sensation is intact in the axillary, radial, median and ulnar nerve distribution Imaging: IMPRESSION: No acute osseous abnormality Machine Ceramic Coater: LAURENT Transcribe Date/Time: Jul 20 2023 3:22P Dictated by : BECCA MCFARLAND MD This examination was interpreted and the report reviewed and electronically signed by: BECCA MCFARLAND MD on Jul 20 2023 3:24PM EST Results-Findings * * *Final Report* * * DATE OF EXAM: Jul 15 2023 10:44AM WOX [id number] - XR SHLDR >/=3V AP/NILDA AP/OTHR LT / PROCEDURE REASON: multiple diagnoses * * * * Physician Interpretation * * * * EXAMINATION: XR SHLDR >/=3V AP/NILDA AP/OTHR LT CLINICAL HISTORY: Chronic left shoulder pain Technique: XR SHLDR >/=3V AP/NILDA AP/OTHR LT -- LEFT with 3 views on 3 images Comparison: None RESULT: No acute fracture or dislocation. Glenohumeral joint space is maintained. Mild acromioclavicular joint space narrowing. Supporting Subjective Information Below: Past Surgical History: PAST SURGICAL HISTORY No date: ANAL SPHINCTEROPLASTY Comment: SPHINCTEROPLASTY ANAL W/ IMPLANT ARTIFICIAL SPHINCTER ADULT 05/28/2021: BARIATRIC SURGERY HX No date: CATARACT EXTRACTION HX; Bilateral Comment: 08/2012: COLONOSCOPY GEN ANES 12/20/2012: INCISE FINGER TENDON SHEATH Comment: Left 3rd trigger finger release 01/23/2022: MANIPULATION KNEE JOINT UNDER GENERAL ANESTHESIA; Left Comment: Left knee manipulation under anesthesia 06/2012: PAST SURGICAL HISTORY OF Comment: Interstim No date: PAST SURGICAL HISTORY OF; Right Comment: trigger thumb 2000: REMOVAL GALLBLADDER 07/31/2022: REMOVAL OF OVARY/TUBE(S); Bilateral Comment: Laparoscopic BSO and Myomectomy at [facility]- Dr. Delacruz 10/29/2021: TOTAL KNEE REPLACEMENT; Left Comment: Left robotic total knee replacement Medications: Current Outpatient Medications Medication Sig zolpidem (AMBIEN) 5 mg tablet Take 1 tablet by mouth at bedtime as needed for sedation for up to 90 days. TAKE 1 TABLET BY MOUTH AT BEDTIME NEEDED FOR SEDATION semaglutide (OZEMPIC) 2 mg/dose (8 mg/3 mL) pen injector Inject 2 mg subcutaneously one time a week. fexofenadine (SEFERINO) 180 mg tablet Take 1 tablet by mouth once daily. amantadine HCl (SYMMETREL) 100 mg capsule Take 100 mg by mouth two times a day. INGREZZA 80 mg capsule Take 1 capsule by mouth once daily. sertraline (ZOLOFT) 100 mg tablet Take 1 tablet by mouth once daily. gabapentin (NEURONTIN) 600 mg tablet Take 3 tablets by mouth daily at bedtime for 180 days. gabapentin (NEURONTIN) 300 mg capsule Take 3 capsules by mouth daily at lunch insulin glargine U-300 conc (TOUJEO SOLOSTAR U-300 INSULIN) 300 unit/mL (1.5 mL) Inject 16 Units subcutaneously every morning. acyclovir (ZOVIRAX) 400 mg tablet Take 1 tablet by mouth two times a day. rOPINIRole (REQUIP) 0.5 mg tablet TAKE 1 TABLET BY MOUTH TWICE A DAY (NOON AND BEDTIME) Cholecalciferol, Vitamin D3, (VITAMIN D-3) 50 mcg (2,000 unit) cap Take 1 capsule by mouth once daily. magnesium oxide (MAG-OX) 400 mg (241.3 mg magnesium) tablet Take 2 tablets by mouth once daily. ascorbic acid, vitamin C, (VITAMIN C) 500 mg tablet Take 1 tablet by mouth once daily. flash glucose sensor (FREESTYLE IZABELLA 2 SENSOR) kit Use to monitor blood sugars 4 times daily atorvastatin (LIPITOR) 20 mg tablet Take 1 tablet by mouth once daily. polyethylene glycol 3350 17 gram/dose powder Take 17 g by mouth two times a day as needed for constipation. Drink a mix of 1 scoop in 8oz of water/beverage once daily as needed for constipation. flash glucose scanning reader (FREESTYLE IZABELLA 2 READER) 1 Each four times daily. checking blood sugars DX E11.9 Insulin Yes pen needle, diabetic (NOVOFINE PLUS) 32 gauge x 1/6 Use to inject insulin once daily OXYGEN, HOME THERAPY, 2 L/min by Mask route daily at bedtime. CPAP 2L at night cloNIDine HCl (CATAPRES) 0.1 mg tablet Take 1 tablet by mouth once daily. omeprazole (PRILOSEC) 20 mg capsule Take 20 mg by mouth once daily. blood sugar diagnostic (BLOOD GLUCOSE TEST) test strip Test Four times a day. Insulin Dep? Yes E11.9 DM 2 calcium carbonate 600 mg-cholecalciferol 200 units (CALCARB 600 WITH VITAMIN D) 600 mg(1,500mg) -200 unit tab Take 1 tablet by mouth twice daily. wheat dextrin (BENEFIBER SUGAR FREE, DEXTRIN,) 3 gram/4 gram powd 1/2 tablespoon per day x2 weeks. Then increase by 1/2 tablespoon every 2 weeks until you are taking 3 tablespoons per day in divided doses. (Patient taking differently: 1/2 tablespoon per day x2 weeks. Then increase by 1/2 tablespoon every 2 weeks until you are taking 3 tablespoons per day in divided doses. Takes one teaspoon daily) COMPOUNDED PRESCRIPTION Oxygen supplies dx: R79.81 R06.02 blood sugar diagnostic (ONETOUCH ULTRA TEST) test strip Test blood sugar(s) 4 times daily. Dx: Type 2 DM - Uncontrolled E11.65 Insulin: Yes diclofenac (VOLTAREN) 1 % topical gel Apply 2 g to affected area two times a day. (Patient not taking: Reported on 10/25/2023) docusate sodium (COLACE) 100 mg capsule Take 1 capsule by mouth twice daily as needed for Constipation. No current facility-administered medications for this visit. Allergies: Seroquel [Quetiapine Fumarate] and Victoza [Liraglutide] ROS: General (negative for fatigue, malaise, weight loss/gain) HEENT (negative for headache, earache, recent vision changes, sinus pain, sore throat) Respiratory (no recent shortness of breath, hemoptysis) CV (negative for chest tightness, palpitations) Musculoskeletal (see HPI) Psych (no depression, anxiety) This note was partially generated using [email or web address] voice recognition system, and there may be some incorrect words, spellings, and punctuation that were not noted in checking the note before saving. 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 No specific injury. She is having difficulty reaching behind her back. Taking Tylenol for the pain and is not sure that it helps. X-rays done on 07/15/23. documented in this encounter [facility] 09-21-2023 Telephone encounter Note The patient has been identified by name and date of : Yes Pharmacy Caregiver verified no other encounters exist for this prescription request: Yes Caregiver confirmed with patient/requestor that no other refills are due, in the near future, with this provider at this time: Yes The last office visit in the department: 07/15/2023 Does the patient have a future office visit with this provider/department: Yes 01/20/2024 Requested Prescriptions Pending Prescriptions Disp Refills zolpidem (AMBIEN) 5 mg tablet 30 tablet 2 Sig: Take 1 tablet by mouth at bedtime as needed for sedation for up to 90 days. TAKE 1 TABLET BY MOUTH AT BEDTIME NEEDED FOR SEDATION Divina Alcantara LPN September 21, 2023 1:20 PM [facility] 09-21-2023 Miscellaneous Notes The patient has been identified by name and date of : Yes Pharmacy Caregiver verified no other encounters exist for this prescription request: Yes Caregiver confirmed with patient/requestor that no other refills are due, in the near future, with this provider at this time: Yes The last office visit in the department: 07/15/2023 Does the patient have a future office visit with this provider/department: Yes 01/20/2024 Requested Prescriptions Pending Prescriptions Disp Refills zolpidem (AMBIEN) 5 mg tablet 30 tablet 2 Sig: Take 1 tablet by mouth at bedtime as needed for sedation for up to 90 days. TAKE 1 TABLET BY MOUTH AT BEDTIME NEEDED FOR SEDATION Divina Alcantara LPN September 21, 2023 1:20 PM documented in this encounter [facility] 09-10-2023 Telephone encounter Note Patient notified. [facility] 09-10-2023 Miscellaneous Notes Patient notified. I have sent in for 1 time dose of amoxicillin, but studies have shown that it is not needed to take prophylactic antibiotic therapy with history of joint replacements prior to dental procedures. Thank you Inna Small APRN.CNP Patient advised to contact PCP to be prescribed antibiotics for upcoming oral procedure scheduled for next week. Surgeon is requesting patient receive antibiotics due to having knee replacements. Please notify patient went medication has been sent to [facility]. documented in this encounter [facility] 09-10-2023 Telephone encounter Note I have sent in for 1 time dose of amoxicillin, but studies have shown that it is not needed to take prophylactic antibiotic therapy with history of joint replacements prior to dental procedures. Thank you Inna Small APRN.SABINE [facility] 09-09-2023 Telephone encounter Note Patient advised to contact PCP to be prescribed antibiotics for upcoming oral procedure scheduled for next week. Surgeon is requesting patient receive antibiotics due to having knee replacements. Please notify patient went medication has been sent to [facility]. [facility] 09-01-2023 Telephone encounter Note The patient has been identified by name and date of : Yes Caregiver verified no other encounters exist for this prescription request: Yes Caregiver confirmed with patient/requestor that no other refills are due, in the near future, with this provider at this time: Yes The last office visit in the department: 07/15/2023 Does the patient have a future office visit with this provider/department: Yes 01/20/2024 Requested Prescriptions Pending Prescriptions Disp Refills semaglutide (OZEMPIC) 2 mg/dose (8 mg/3 mL) pen injector 3 mL 3 Sig: Inject 2 mg subcutaneously one time a week. Divina Alcantara LPN September 01, 2023 8:23 AM [facility] 09-01-2023 Miscellaneous Notes The patient has been identified by name and date of : Yes Caregiver verified no other encounters exist for this prescription request: Yes Caregiver confirmed with patient/requestor that no other refills are due, in the near future, with this provider at this time: Yes The last office visit in the department: 07/15/2023 Does the patient have a future office visit with this provider/department: Yes 01/20/2024 Requested Prescriptions Pending Prescriptions Disp Refills semaglutide (OZEMPIC) 2 mg/dose (8 mg/3 mL) pen injector 3 mL 3 Sig: Inject 2 mg subcutaneously one time a week. Divina Alcantara LPN September 01, 2023 8:23 AM documented in this encounter [facility] 08-13-2023 Telephone encounter Note Prescription Refill Information The patient has been identified by name and date of : Yes Caregiver verified no other encounters exist for this prescription request: Yes Caregiver confirmed with patient/requestor that no other refills are due, in the near future, with this provider at this time: Yes The last office visit in the department: 07/15/23 Does the patient have a future office visit with this provider/department: Yes Requested Prescriptions Pending Prescriptions Disp Refills fexofenadine (SEFERINO) 180 mg tablet 28 tablet 3 Sig: Take 1 tablet by mouth once daily. Josee Weiner LPN August 13, 2023 4:13 PM [facility] 08-13-2023 Miscellaneous Notes Prescription Refill Information The patient has been identified by name and date of : Yes Caregiver verified no other encounters exist for this prescription request: Yes Caregiver confirmed with patient/requestor that no other refills are due, in the near future, with this provider at this time: Yes The last office visit in the department: 07/15/23 Does the patient have a future office visit with this provider/department: Yes Requested Prescriptions Pending Prescriptions Disp Refills fexofenadine (SEFERINO) 180 mg tablet 28 tablet 3 Sig: Take 1 tablet by mouth once daily. Josee Weiner LPN August 13, 2023 4:13 PM documented in this encounter [facility] 07-15-2023 History of Presen t illness Narrative Radiology Service Progress Note PATIENT NAME: Melanie Bird DATE OF SERVICE: July 15, 2023 TIME: 10:31 AM PATIENT IDENTITY VERIFICATION COMPLETED USING TWO (2) IDENTIFIERS: Name and Date of confirmed by patient verbally. FALL SCREENING: Has the patient had 2 falls in the last year or 1 fall with injury or currently using an Ambulatory Assistive Device (Walker, Cane, Wheelchair, Crutches, etc.)? No PATIENT GENDER DATA: Female. status: : No status: NO. PATIENT RELEVANT IMPLANT DATA REVIEWED: Yes PATIENT PRESENTS WITH AN IMPLANTABLE OR ATTACHED HOISTMAN: Yes [facility] RADIOLOGY DEPARTMENT: General X-ray: Exam(s) Completed: Upper Extremity X-Ray(s): Shoulder, AP / TRUE AP / SUPRA OUTLET left PERIPHERAL IV DATA: Not applicable SIGNED BY: RT Magdalena(R) July 15, 2023 10:31 AM documented in this encounter [facility] 07-15-2023 History of Presen t illness Narrative CC: Patient presents with: Recheck: 3 month follow up HPI Melanie Bird is a 68 year old female who presents today for routine follow up but with concerns of left shoulder pain. Left shoulder pain starting 6 months ago. Pain is described as sharp that occurs with certain movements and radiates franky Left upper arm. No known injury just woke up with the pain. 3 months ago started to use diclofenac gel without improvement but pain is worsening. Hurts worse with extending LUE back and feels slightly weaker. Denies any edema, red\ness, fever, recent infection, loss of sensation,or loss of ROM. Parkinson: Tremors worsening but still able to feed herself and do daily activities. Last saw neurology a few months ago and started on a new medication with a follow up in August. Has her sister come a few times a month to clean and cooks meals for her which are freezed and easy to heat up. DIABETES MELLITUS: Ms. Bird denies increased frequency of urination, chest pain or dyspnea , numbness, tingling or pain in extremities, new or unusual visual symptoms, low sugar/hypoglycemic reactions, weight loss/gain, lightheadedness/dizziness, and bowel changes/loose stools. Follows a diabetic diet most of the time. She is compliant with medication(s) and is tolerating med(s) without any side effects. She reports checking her glucose on a CGM with average in the 150s. Reports she is able to give herself injections appropriately. Patient's last HgA1C was Hemoglobin A1C (%) Date Value 11/15/2020 7.0 09/02/2020 7.2 Hemoglobin A1C (POCT) (%) Date Value 04/15/2023 7.1 01/13/2023 7.2 ) Last Ophthalmology exam was within the past 12 months and has annual exam scheduled next month. ARIANA: Wears oxygen at night as ordered, no longer requiring cpap due to weight loss. Has difficulty sleeping with her tremors that are present throughout the night even with the ambien for her chronic insomnia. HLD: Takes medication as ordered. Tries to exercise but has difficulty with tremors and pain but does try to eat a healthy diet most of the time. Denies any chest pain, shortness of breath, or known exercise intolerance. REVIEW OF SYSTEMS See HPI PAST MEDICAL HISTORY Diagnosis Date Depression Diabetes mellitus type 2, uncontrolled High cholesterol History of colon polyps History of gallstones IBS (irritable bowel syndrome) Obesity 04/25/2013 BMI 48.43 ARIANA (obstructive sleep apnea) 03/06/2013 Parkinson disease (HCC) PAST SURGICAL HISTORY Procedure Laterality Date ANAL SPHINCTEROPLASTY SPHINCTEROPLASTY ANAL W/ IMPLANT ARTIFICIAL SPHINCTER ADULT BARIATRIC SURGERY HX 05/28/2021 CATARACT EXTRACTION HX Bilateral 08/2012 COLONOSCOPY GEN ANES 04/2019 INCISE FINGER TENDON SHEATH 12/20/2012 Left 3rd trigger finger release MANIPULATION KNEE JOINT UNDER GENERAL ANESTHESIA Left 01/23/2022 Left knee manipulation under anesthesia PAST SURGICAL HISTORY OF 06/2012 Interstim PAST SURGICAL HISTORY OF Right trigger thumb REMOVAL GALLBLADDER 2001 REMOVAL OF OVARY/TUBE(S) Bilateral 07/31/2022 Laparoscopic BSO and Myomectomy at [facility]- Dr. Delacruz TOTAL KNEE REPLACEMENT Left 10/29/2021 Left robotic total knee replacement ALLERGIES Seroquel [Quetiapine Fumarate] and Victoza [Liraglutide] MEDICATIONS amantadine HCl (SYMMETREL) 100 mg capsule Take 100 mg by mouth two times a day. INGREZZA 80 mg capsule Take 1 capsule by mouth once daily. [START ON 07/17/2023] zolpidem (AMBIEN) 5 mg tablet Take 1 tablet by mouth at bedtime as needed for sedation for up to 90 days. TAKE 1 TABLET BY MOUTH AT BEDTIME NEEDED FOR SEDATION Do not start before July 17, 2023. gabapentin (NEURONTIN) 600 mg tablet Take 3 tablets by mouth daily at bedtime for 180 days. gabapentin (NEURONTIN) 300 mg capsule Take 3 capsules by mouth daily at lunch insulin glargine U-300 conc (TOUJEO SOLOSTAR U-300 INSULIN) 300 unit/mL (1.5 mL) Inject 16 Units subcutaneously every morning. diclofenac (VOLTAREN) 1 % topical gel Apply 2 g to affected area two times a day. fexofenadine (SEFERINO) 180 mg tablet Take 1 tablet by mouth once daily. sertraline (ZOLOFT) 100 mg tablet Take 1 tablet by mouth once daily. acyclovir (ZOVIRAX) 400 mg tablet Take 1 tablet by mouth two times a day. rOPINIRole (REQUIP) 0.5 mg tablet TAKE 1 TABLET BY MOUTH TWICE A DAY (NOON AND BEDTIME) Cholecalciferol, Vitamin D3, (VITAMIN D-3) 50 mcg (2,000 unit) cap Take 1 capsule by mouth once daily. magnesium oxide (MAG-OX) 400 mg (241.3 mg magnesium) tablet Take 2 tablets by mouth once daily. ascorbic acid, vitamin C, (VITAMIN C) 500 mg tablet Take 1 tablet by mouth once daily. semaglutide (OZEMPIC) 2 mg/dose (8 mg/3 mL) pen injector Inject 2 mg subcutaneously one time a week. flash glucose sensor (FREESTYLE IZABELLA 2 SENSOR) kit Use to monitor blood sugars 4 times daily atorvastatin (LIPITOR) 20 mg tablet Take 1 tablet by mouth once daily. polyethylene glycol 3350 17 gram/dose powder Take 17 g by mouth two times a day as needed for constipation. Drink a mix of 1 scoop in 8oz of water/beverage once daily as needed for constipation. flash glucose scanning reader (FREESTYLE IZABELLA 2 READER) 1 Each four times daily. checking blood sugars DX E11.9 Insulin Yes pen needle, diabetic (NOVOFINE PLUS) 32 gauge x 1/6 Use to inject insulin once daily OXYGEN, HOME THERAPY, 2 L/min by Mask route daily at bedtime. CPAP 2L at night cloNIDine HCl (CATAPRES) 0.1 mg tablet Take 1 tablet by mouth once daily. omeprazole (PRILOSEC) 20 mg capsule Take 20 mg by mouth once daily. AUSTEDO 6 mg tab Take 6 mg by mouth twice daily. Lancets lancets Test Four times a day. Insulin Dep? Yes E11.9 DM 2 (Patient not taking: Reported on 04/23/2023) blood sugar diagnostic (BLOOD GLUCOSE TEST) test strip Test Four times a day. Insulin Dep? Yes E11.9 DM 2 calcium carbonate 600 mg-cholecalciferol 200 units (CALCARB 600 WITH VITAMIN D) 600 mg(1,500mg) -200 unit tab Take 1 tablet by mouth twice daily. wheat dextrin (BENEFIBER SUGAR FREE, DEXTRIN,) 3 gram/4 gram powd 1/2 tablespoon per day x2 weeks. Then increase by 1/2 tablespoon every 2 weeks until you are taking 3 tablespoons per day in divided doses. (Patient taking differently: 1/2 tablespoon per day x2 weeks. Then increase by 1/2 tablespoon every 2 weeks until you are taking 3 tablespoons per day in divided doses. Takes one teaspoon daily) docusate sodium (COLACE) 100 mg capsule Take 1 capsule by mouth twice daily as needed for Constipation. COMPOUNDED PRESCRIPTION Oxygen supplies dx: R79.81 R06.02 blood sugar diagnostic (ONETOUCH ULTRA TEST) test strip Test blood sugar(s) 4 times daily. Dx: Type 2 DM - Uncontrolled E11.65 Insulin: Yes Lancets (ACCU-CHEK FASTCLIX) lancets With Accuchek fastclix lancing device. Check sugars 4x/day Dx: e11.65 Insulin: Yes (Patient not taking: Reported on 04/23/2023) FAMILY HISTORY Problem Relation Age of Onset Diabetes Mother Heart Mother Diabetes Father Heart Father Colon Cancer Sister Asthma No Family History Social History Tobacco Use Smoking status: Former Packs/day: 0.10 Years: 3.00 Additional pack years: 0.00 Total pack years: 0.30 Types: Cigarettes Quit date: 04/25/1988 Years since quittin.2 Smokeless tobacco: Never Tobacco comments: No smoking in childhood home. Roomate of last 10 years smoked while living with patient. Vaping Use Vaping Use: Never used Substance Use Topics Alcohol use: Not Currently Drug use: Never PHYSICAL EXAM BP 118/72 Pulse 74 Resp 16 Wt 83.9 kg (185 lb) LMP 04/10/2012 (Approximate) SpO2 96% BMI 31.76 kg/m General Appearance: well appearing, in no acute distress, alert Skin: Skin color, texture, turgor normal for age; Eyes: conjunctiva pink and moist, no icterus, sclera white, non-injected Lungs: Lungs clear to auscultation. No wheezing, rhonchi, rales. Heart: RRR without murmur, gallop, or rubs. No ectopy Neck: Inspection: npormal Palpation: non-tender ROM: full Musculoskeletal: Left shoulder: normal to inspection. reported tenderness with palpation of bicep area. ROM: unable to extend to posterior due to sharp pain. Special tests: Difficult to fully assess due to her tremors Drop arm: -, Empty Can: -, Infraspinatus: +, Neer - Muscle strength: 5/5 upper, bilaterally Extremities: No deformities, edema, skin discoloration, clubbing or cyanosis. Good capillary refill. Health maintenance reviewed with patient: Bone Density Screening Never done Behavioral Health Screening Never done Dilated Retinal Exam due on 07/22/2023 RSV Vaccine(1 - 1-dose 60+ series) due on 01/14/2024 Covid-19 Vaccine(2022- season) due on 01/14/2024 Urine Albumin:Creatinine Ratio due on 10/07/2023 HbA1C due on 10/14/2023 LDL Cholesterol due on 12/12/2023 Diabetic Foot Exam due on 01/14/2024 Mammogram Screening due on 04/21/2024 Annual PCP Team Chronic Disease Visit due on 05/12/2024 Colorectal Cancer Screening due on 09/19/2024 DTaP,Tdap,Td Vaccine(5 - Td or Tdap) due on 10/03/2030 Influenza Vaccine Completed Advance Directive Discussion Completed Hepatitis C Screening Completed Shingrix Vaccine Completed Pneumococcal Vaccine: 65+ Completed Pap Testing Discontinued DATA REVIEWED: No new labs ASSESSMENT/PLAN: 1. Chronic left shoulder pain - ICD9: 719.41, 338.29, ICD10: M25.512, G89.29 (primary diagnosis) - limited treatment as oral NSAIDs and steroids are contraindicated as she has a history of gastric bypass. Declines PT as she reports she is unable to afford and our financial assistance is unable to help. - continue with diclofenac gel 2 times a day. - exercises as printed out, do without weights and stop if if there is pain. - XR SHOULDER GENERAL 3V OR MORE AP/TRUE AP/OTHER LEFT - CONSULT TO ORTHOPAEDICS 2. Diabetes mellitus type 2 (HCC) - ICD9: 250.00, ICD10: E11.9 - Controlled - Continue current medications - Blood glucose monitoring on a continuous glucose monitoring schedule - Counseled on healthy diet and regular exercise - Discussed need for and benefit of weight loss. BMI 31.76 kg/(m^2) - HEMOGLOBIN A1C (POC) 3. Parkinson's disease, unspecified whether dyskinesia present, unspecified whether manifestations fluctuate (HCC) - ICD9: 332.0, ICD10: G20.A1 Worsening on tremors. Continue with recommendations by neurology 4. Insomnia, unspecified type - ICD9: 780.52, ICD10: G47.00 Controlled well with current treatment 5. ARIANA (obstructive sleep apnea) - ICD9: 327.23, ICD10: G47.33 Continue with oxygen at night as ordered 6. Hyperlipidemia with target LDL less than 70 - ICD9: 272.4, ICD10: E78.5 - Controlled with last lab work - Continue current medications - Counseled on healthy diet and regular exercise - Discussed need for and benefit of weight loss. BMI 31.76 kg/(m^2) 7. Depression with anxiety - ICD9: 300.4, ICD10: F41.8 Not discussed today, does see psychiatry but refill needed. - SERTRALINE 100 MG TABLET Prescription instructions reviewed with patient as applicable. Potential red flag symptoms discussed with the patient. Reviewed appropriate action plan to take if red flag symptoms occur. Patient agreeable to treatment plan. Inna Small APRN.CNP documented in this encounter [facility] 06-25-2023 Telephone encounter Note PDMP website checked and validated. All prescriptions have been APPROPRIATELY filled. No suspicious activity was identified. 06/25/2023 by Inna Small APRN.CNP [facility] 06-25-2023 Miscellaneous Notes [facility] checked and validated. All prescriptions have been APPROPRIATELY filled. No suspicious activity was identified. 06/25/2023 by Inna Small APRN.CNP Pharmacy phones for refill(s): Requested Prescriptions Pending Prescriptions Disp Refills zolpidem (AMBIEN) 5 mg tablet 30 tablet 2 Sig: Take 1 tablet by mouth at bedtime as needed for sedation for up to 90 days. TAKE 1 TABLET BY MOUTH AT BEDTIME NEEDED FOR SEDATION Date of last office visit in primary care: 04/15/2023 Date of next office visit in primary care: 07/15/2023 Myriam Karimi RN. documented in this encounter [facility] 06-25-2023 Telephone encounter Note Pharmacy phones for refill(s): Requested Prescriptions Pending Prescriptions Disp Refills zolpidem (AMBIEN) 5 mg tablet 30 tablet 2 Sig: Take 1 tablet by mouth at bedtime as needed for sedation for up to 90 days. TAKE 1 TABLET BY MOUTH AT BEDTIME NEEDED FOR SEDATION Date of last office visit in primary care: 04/15/2023 Date of next office visit in primary care: 07/15/2023 Myriam Karimi RN. [facility] 05-27-2023 Miscellaneous Notes Patient has been identified by name and date of : Pharmacy phones for refill(s): Requested Prescriptions Pending Prescriptions Disp Refills gabapentin (NEURONTIN) 600 mg tablet 90 tablet 5 Sig: Take 3 tablets by mouth daily at bedtime for 180 days. gabapentin (NEURONTIN) 300 mg capsule 90 capsule 5 Sig: Take 3 capsules by mouth daily at lunch Date of last office visit in primary care: 04/15/2023 Date of next office visit in primary care: 07/15/2023 Please advise. Thank you. Divina Alcantara LPN. documented in this encounter [facility] 05-10-2023 Miscellaneous Notes Patient calling to request new script for Diclofenac gel. She says she did not receive the medication and now the script is cancelled. Patient has been identified by name and date of : Yes, Provider Date Time Patient phones for refill(s): Requested Prescriptions Pending Prescriptions Disp Refills diclofenac (VOLTAREN) 1 % topical gel 50 g 1 Sig: Apply 2 g to affected area two times a day. Date of last office visit in primary care: 04/15/2023 Date of next office visit in primary care: 07/15/2023 Please advise. Thank you. Donna Cates RN. documented in this encounter [facility] 05-06-2023 Miscellaneous Notes Patient has been identified by name and date of : Yes, Provider Date Time Pharmacy phones for refill(s): Requested Prescriptions Pending Prescriptions Disp Refills fexofenadine (SEFERINO) 180 mg tablet 28 tablet 3 Sig: Take 1 tablet by mouth once daily. Date of last office visit in primary care: 04/15/2023 Date of next office visit in primary care: 07/15/2023 Please advise. Thank you. Donna Cates RN. documented in this encounter [facility] 04-26-2023 History of Presen t illness Narrative POPULATION HEALTH NAVIGATION OUTREACH Action/FYI [place] Annual Wellness Visit Outreach Last Annual Wellness Visit - unknown LMOVM Sent Changohart message Next OFFICE VISIT: Next 5 Appointments Date and Time Provider Department Dept Phone 05/13/2023 2:00 PM Donis Harris [facility] [phone] 07/15/2023 9:40 AM Older, nIna NERI [facility] [phone] Encounter Closed. Reason for Outreach Care Gap/HCC or Scheduling Wellness Visits Care Gaps due: Medicare Annual Wellness Visit Patient Contacted: Unable or unnecessary to reach patient: Left message MyChart message sent Navigation Signature: Angi Crawford MA April 26, 2023 7:22 PM documented in this encounter [facility] 04-23-2023 Miscellaneous Notes Faxed oximetry order signed by Dr. May to [facility]. Lauren Lewis LPN documented in this encounter [facility] 04-23-2023 History of Presen t illness Narrative Images from the original note were not included. . [facility] [place] Note Patient name: Melanie Bird PCP: Modesta Daley MD CC: Nocturnal hypoxemia HPI: Melanie Bird 68 year old female former minimal smoker with PMH significant for obesity s/p gastric bypass, DM2, Parkinson's, nocturnal hypoxemia. Initially seen for pre-op evaluation for restrictive lung disease. Restriction due to body habitus without evidence of parenchymal lung disease. Referred back to Sleep Medicine with PSG significant for desaturations but no obstructive or central apneas. She was prescribed nocturnal oxygen. Hypoxemia has improved with weight loss, currently weighing 191 lbs down from 275 lbs. she has gone from continuous oxygen usage to nocturnal usage. Overall she states she has been feeling well from a respiratory standpoint. She denies any symptoms, specifically, cough, wheezing, chest tightness, dyspnea on exertion. DME: [facility] PAST MEDICAL HISTORY Diagnosis Date Depression Diabetes mellitus type 2, uncontrolled High cholesterol History of colon polyps History of gallstones IBS (irritable bowel syndrome) Obesity 04/25/2013 BMI 48.43 ARIANA (obstructive sleep apnea) 03/06/2013 Parkinson disease (HCC) ALLERGIES Allergen Reactions Seroquel [Quetiapin* Mental Status Change Victoza [Liraglutid* GI Upset sertraline (ZOLOFT) 100 mg tablet^Take 1 tablet by mouth once daily.^Disp: 30 tablet^Rfl: 5 zolpidem (AMBIEN) 5 mg tablet^Take 1 tablet by mouth at bedtime as needed for sedation for up to 90 days. TAKE 1 TABLET BY MOUTH AT BEDTIME NEEDED FOR SEDATION Do not start before April 19, 2023.^Disp: 30 tablet^Rfl: 2 acyclovir (ZOVIRAX) 400 mg tablet^Take 1 tablet by mouth two times a day.^Disp: 60 tablet^Rfl: 11 rOPINIRole (REQUIP) 0.5 mg tablet^TAKE 1 TABLET BY MOUTH TWICE A DAY (NOON AND BEDTIME)^Disp: 60 tablet^Rfl: 11 Cholecalciferol, Vitamin D3, (VITAMIN D-3) 50 mcg (2,000 unit) cap^Take 1 capsule by mouth once daily.^Disp: 30 capsule^Rfl: 11 magnesium oxide (MAG-OX) 400 mg (241.3 mg magnesium) tablet^Take 2 tablets by mouth once daily.^Disp: 60 tablet^Rfl: 11 ascorbic acid, vitamin C, (VITAMIN C) 500 mg tablet^Take 1 tablet by mouth once daily.^Disp: 30 tablet^Rfl: 11 semaglutide (OZEMPIC) 2 mg/dose (8 mg/3 mL) pen injector^Inject 2 mg subcutaneously one time a week.^Disp: 3 mL^Rfl: 3 flash glucose sensor (FREESTYLE IZABELLA 2 SENSOR) kit^Use to monitor blood sugars 4 times daily^Disp: 6 Each^Rfl: 3 atorvastatin (LIPITOR) 20 mg tablet^Take 1 tablet by mouth once daily.^Disp: 28 tablet^Rfl: 11 fexofenadine (SEFERINO) 180 mg tablet^Take 1 tablet by mouth once daily.^Disp: 28 tablet^Rfl: 3 gabapentin (NEURONTIN) 600 mg tablet^Take 3 tablets by mouth daily at bedtime for 180 days.^Disp: 90 tablet^Rfl: 5 gabapentin (NEURONTIN) 300 mg capsule^Take 3 capsules by mouth daily at lunch^Disp: 90 capsule^Rfl: 5 polyethylene glycol 3350 17 gram/dose powder^Take 17 g by mouth two times a day as needed for constipation. Drink a mix of 1 scoop in 8oz of water/beverage once daily as needed for constipation.^Disp: 238 g^Rfl: 1 insulin glargine U-300 conc (TOUJEO SOLOSTAR U-300 INSULIN) 300 unit/mL (1.5 mL)^Inject 18 Units subcutaneously every morning.^Disp: 3 Each^Rfl: 5 (Patient taking differently: Inject 18 Units subcutaneously every morning. 16 units daily) flash glucose scanning reader (FREESTYLE IZABELLA 2 READER)^1 Each four times daily. checking blood sugars DX E11.9 Insulin Yes^Disp: 1 Each^Rfl: 0 pen needle, diabetic (NOVOFINE PLUS) 32 gauge x 1/6^Use to inject insulin once daily^Disp: 100 Each^Rfl: 1 OXYGEN, HOME THERAPY,^2 L/min by Mask route daily at bedtime. CPAP 2L at night^Disp: ^Rfl: cloNIDine HCl (CATAPRES) 0.1 mg tablet^Take 1 tablet by mouth once daily.^Disp: ^Rfl: omeprazole (PRILOSEC) 20 mg capsule^Take 20 mg by mouth once daily.^Disp: ^Rfl: AUSTEDO 6 mg tab^Take 6 mg by mouth twice daily.^Disp: ^Rfl: blood sugar diagnostic (BLOOD GLUCOSE TEST) test strip^Test Four times a day. Insulin Dep? Yes E11.9 DM 2^Disp: 300 Strip^Rfl: 3 calcium carbonate 600 mg-cholecalciferol 200 units (CALCARB 600 WITH VITAMIN D) 600 mg(1,500mg) -200 unit tab^Take 1 tablet by mouth twice daily.^Disp: 60 tablet^Rfl: 5 wheat dextrin (BENEFIBER SUGAR FREE, DEXTRIN,) 3 gram/4 gram powd^1/2 tablespoon per day x2 weeks. Then increase by 1/2 tablespoon every 2 weeks until you are taking 3 tablespoons per day in divided doses.^Disp: 248 g^Rfl: 3 (Patient taking differently: 1/2 tablespoon per day x2 weeks. Then increase by 1/2 tablespoon every 2 weeks until you are taking 3 tablespoons per day in divided doses. Takes one teaspoon daily) docusate sodium (COLACE) 100 mg capsule^Take 1 capsule by mouth twice daily as needed for Constipation.^Disp: 60 capsule^Rfl: 1 COMPOUNDED PRESCRIPTION^Oxygen supplies dx: R79.81 R06.02^Disp: 1 Each^Rfl: 99 blood sugar diagnostic (ONETOUCH ULTRA TEST) test strip^Test blood sugar(s) 4 times daily. Dx: Type 2 DM - Uncontrolled E11.65 Insulin: Yes^Disp: 200 Strip^Rfl: 11 Lancets lancets^Test Four times a day. Insulin Dep? Yes E11.9 DM 2^Disp: 200 Each^Rfl: 4 (Patient not taking: Reported on 04/23/2023) Lancets (ACCU-CHEK FASTCLIX) lancets^With AccuchShopeando fastclix lancing device. Check sugars 4x/day Dx: e11.65 Insulin: Yes^Disp: 200 Each^Rfl: 11 (Patient not taking: Reported on 04/23/2023) Social History Tobacco Use Smoking status: Former Packs/day: 0.10 Years: 3.00 Additional pack years: 0.00 Total pack years: 0.30 Types: Cigarettes Quit date: 04/25/1988 Years since quittin.0 Smokeless tobacco: Never Tobacco comments: No smoking in childhood home. Roomate of last 10 years smoked while living with patient. Vaping Use Vaping Use: Never used Substance Use Topics Alcohol use: Not Currently Drug use: Never FAMILY HISTORY Problem Relation Age of Onset Diabetes Mother Heart Mother Diabetes Father Heart Father Colon Cancer Sister Asthma No Family History PAST SURGICAL HISTORY Procedure Laterality Date ANAL SPHINCTEROPLASTY SPHINCTEROPLASTY ANAL W/ IMPLANT ARTIFICIAL SPHINCTER ADULT BARIATRIC SURGERY HX 05/28/2021 CATARACT EXTRACTION HX Bilateral 08/2012 COLONOSCOPY GEN ANES 04/2019 INCISE FINGER TENDON SHEATH 12/20/2012 Left 3rd trigger finger release MANIPULATION KNEE JOINT UNDER GENERAL ANESTHESIA Left 01/23/2022 Left knee manipulation under anesthesia PAST SURGICAL HISTORY OF 06/2012 Interstim PAST SURGICAL HISTORY OF Right trigger thumb REMOVAL GALLBLADDER 2000 REMOVAL OF OVARY/TUBE(S) Bilateral 07/31/2022 Laparoscopic BSO and Myomectomy at [facility]- Dr. Delacruz TOTAL KNEE REPLACEMENT Left 10/29/2021 Left robotic total knee replacement PMH, Social history, family history and surgical history reviewed and updated in EMR REVIEW OF SYSTEMS: CONSTITUTIONAL: No fevers, chills, nightsweats CARDIOVASCULAR: No chest pain, dyspnea, palpitations, orthopnea, PND, edema. PULM: See HPI NEURO: Significant movement disorder PHYSICAL EXAMINATION: BP 100/70 Pulse 72 Resp 16 Ht 5' 4 (1.63m) Wt 191 lb (86.6kg) SpO2 94% LMP 04/10/2012 BMI 32.77 kg/(m^2). General Appearance: Age-appropriate female, NAD. Skin: Skin color, texture, turgor normal, no suspicious rashes or lesions. Head: Normocephalic, no masses, lesions, tenderness or abnormalities. Eyes: Sclera, conjunctiva normal. Neck: No JVD, no masses, no adenopathy. Lungs: Not labored, normal to percussion, no wheezes or crackles Cardiac: Regular rate and rhythm, no murmurs. Extremities: No edema or clubbing Neuro: Almost choreiform movement. Assessment/Plan: 1. Nocturnal hypoxemia -Repeat nocturnal oximetry on room air to see if patient still requires supplementation 2. Restrictive lung disease -Due to obesity -Continued weight loss Shawanda May MD [facility] documented in this encounter [facility] 04-22-2023 Miscellaneous Notes April 22, 2023 PID: [id number] Melanie Bird [address] [phone] Dear Ms. Bird, We are pleased to inform you that the results of your recent breast imaging exam on 04/22/2023 are normal. Early detection of cancer is very important. We also understand recommendations regarding breast cancer screening are controversial. Please discuss with your primary care provider which strategy is best for you and whether a mammogram is right for you. Your imaging studies and report will be kept on file at [facility] as part of your permanent medical record and are available for your continuing care. Thank you for allowing us to help in meeting your health care needs. Sincerely, Dr. Barboza Interpreting Radiologist [facility] (Normal over 40) documented in this encounter [facility] 04-22-2023 History of Presen t illness Narrative Radiology Service Progress Note PATIENT NAME: Melanie Bird DATE OF SERVICE: April 22, 2023 TIME: 8:17 AM PATIENT IDENTITY VERIFICATION COMPLETED USING TWO (2) IDENTIFIERS: Name and Date of confirmed by patient verbally. FALL SCREENING: Has the patient had 2 falls in the last year or 1 fall with injury or currently using an Ambulatory Assistive Device (Walker, Cane, Wheelchair, Crutches, etc.)? No PATIENT GENDER DATA: Female. status: : No status: NO. PATIENT RELEVANT IMPLANT DATA REVIEWED: Not Applicable PATIENT PRESENTS WITH AN IMPLANTABLE OR ATTACHED HOISTMAN: No RADIOLOGY DEPARTMENT: Mammography PERIPHERAL IV DATA: Not applicable SIGNED BY: RT Axel(R) April 22, 2023 8:17 AM documented in this encounter [facility] 04-20-2023 Miscellaneous Notes Sw spoke with patient in regards to daily living needs. Patient notes that she needs assistance with meals. Patient notes that she has parkinson's and has trouble making meals. Patient reports that she mostly eats tv dinner's. Patient notes that she did try Meals on Wheels, but the meals were not ones that she could eat. Sw noted that she has brochure for [employer] meals that are separately packaged, so that you do not have to eat the whole meal at one sitting. Sw also has [facility] Older [facility] resource guide with information such as [facility], [facility] [facility] AAA/programs, AL options, support groups, Senior Friends(home friend visiting program),and other social service programs. Sw will mail resource information to patient home along with letter containing Sw contact information. Patient reports that will be helpful, and will take a look at guide and reach out to enquire about services that she finds will be helpful. documented in this encounter [facility] 04-19-2023 Miscellaneous Notes Rec'd covermymeds PA for diclofenac and the PA response says . Closed 04/19/2023 2:37 PM Close reason: Prior Authorization not required for patient/medication Note from payer: Available without authorization documented in this encounter [facility] 04-19-2023 Miscellaneous Notes Judi sent patient My Chart message to see about connecting via My Chart in regards to below social service needs. Judi left message for patient to return Sw call to discuss community social service options to help with home and social supports. Judi called patient to discuss community social service resources ie. Senior friends, AAA, home care. Sw also has [facility] Older Adult Resource Guide that can be mailed to patient with detailed resource info. Judi will try call again to patient tomorrow 04/15 @ noon to see if available to discuss resource needs. documented in this encounter [facility] 04-15-2023 History of Presen t illness Narrative CC: Patient presents with: Recheck: 3 month DM follow up HPI Melanie Bird is a 68 year old female who presents today for routine follow up but with concerns. Has noticed for the past few months pain to LUE. Pain is sharp and is present all the time and worsens with extending arm to the back. Also noticing she is weaker on LUE as well. Has not tried anything to improve the pain. Denies any injury, falling, change in activity, edema, redness, fever, chills, recent illness, or numbness. Depression: Has had to recently sell her car and no longer drives which keeps her home in her house which is increasing her depression Sleep: is described as normal with ambien Alcohol use: does not drink any alcohol Drug use: No Appetite: good Suicidal Thoughts: No suicidal ideation, intent or plan Support: Comes from multiple sources including her sister. Counseling: Yes, at the counseling center. DIABETES MELLITUS: Ms. Bird denies excessive thirst or increased frequency of urination, chest pain or dyspnea , numbness, tingling or pain in extremities, new or unusual visual symptoms, low sugar/hypoglycemic reactions, weight loss/gain, lightheadedness/dizziness, and bowel changes/loose stools. Difficulty following a healthy diet as she eats freezer dinners because if her parkinsons. Also is snacking more because she is lonely and bored. She is compliant with medication(s) and is tolerating med(s) without any side effects. She reports checking her glucose on a CGM schedule with average glucose. Patient's last HgA1C was Hemoglobin A1C (%) Date Value 10/06/2022 6.8 11/15/2020 7.0 09/02/2020 7.2 Hemoglobin A1C (POCT) (%) Date Value 01/13/2023 7.2 06/11/2022 8.0 ) REVIEW OF SYSTEMS See HPI PAST MEDICAL HISTORY Diagnosis Date Depression Diabetes mellitus type 2, uncontrolled High cholesterol History of colon polyps History of gallstones IBS (irritable bowel syndrome) Obesity 04/25/2013 BMI 48.43 ARIANA (obstructive sleep apnea) 03/06/2013 Parkinson disease PAST SURGICAL HISTORY Procedure Laterality Date ANAL SPHINCTEROPLASTY SPHINCTEROPLASTY ANAL W/ IMPLANT ARTIFICIAL SPHINCTER ADULT BARIATRIC SURGERY HX 05/28/2021 CATARACT EXTRACTION HX Bilateral 08/2012 COLONOSCOPY GEN ANES 04/2019 INCISE FINGER TENDON SHEATH 12/20/2012 Left 3rd trigger finger release MANIPULATION KNEE JOINT UNDER GENERAL ANESTHESIA Left 01/23/2022 Left knee manipulation under anesthesia PAST SURGICAL HISTORY OF 06/2012 Interstim PAST SURGICAL HISTORY OF Right trigger thumb REMOVAL GALLBLADDER 2000 REMOVAL OF OVARY/TUBE(S) Bilateral 07/31/2022 Laparoscopic BSO and Myomectomy at [facility]- Dr. Delacruz TOTAL KNEE REPLACEMENT Left 10/29/2021 Left robotic total knee replacement ALLERGIES Seroquel [Quetiapine Fumarate] and Victoza [Liraglutide] MEDICATIONS [START ON 04/19/2023] zolpidem (AMBIEN) 5 mg tablet^Take 1 tablet by mouth at bedtime as needed for sedation for up to 90 days. TAKE 1 TABLET BY MOUTH AT BEDTIME NEEDED FOR SEDATION Do not start before April 19, 2023.^Disp: 30 tablet^Rfl: 2 acyclovir (ZOVIRAX) 400 mg tablet^Take 1 tablet by mouth two times a day.^Disp: 60 tablet^Rfl: 11 rOPINIRole (REQUIP) 0.5 mg tablet^TAKE 1 TABLET BY MOUTH TWICE A DAY (NOON AND BEDTIME)^Disp: 60 tablet^Rfl: 11 Cholecalciferol, Vitamin D3, (VITAMIN D-3) 50 mcg (2,000 unit) cap^Take 1 capsule by mouth once daily.^Disp: 30 capsule^Rfl: 11 sertraline (ZOLOFT) 50 mg tablet^Take 1 tablet by mouth once daily.^Disp: 30 tablet^Rfl: 5 magnesium oxide (MAG-OX) 400 mg (241.3 mg magnesium) tablet^Take 2 tablets by mouth once daily.^Disp: 60 tablet^Rfl: 11 ascorbic acid, vitamin C, (VITAMIN C) 500 mg tablet^Take 1 tablet by mouth once daily.^Disp: 30 tablet^Rfl: 11 semaglutide (OZEMPIC) 2 mg/dose (8 mg/3 mL) pen injector^Inject 2 mg subcutaneously one time a week.^Disp: 3 mL^Rfl: 3 flash glucose sensor (FREESTYLE IZABELLA 2 SENSOR) kit^Use to monitor blood sugars 4 times daily^Disp: 6 Each^Rfl: 3 atorvastatin (LIPITOR) 20 mg tablet^Take 1 tablet by mouth once daily.^Disp: 28 tablet^Rfl: 11 fexofenadine (SEFERINO) 180 mg tablet^Take 1 tablet by mouth once daily.^Disp: 28 tablet^Rfl: 3 semaglutide (OZEMPIC) 1 mg/dose (4 mg/3 mL) pen^Inject 1 mg subcutaneously one time a week.^Disp: 3 mL^Rfl: 2 gabapentin (NEURONTIN) 600 mg tablet^Take 3 tablets by mouth daily at bedtime for 180 days.^Disp: 90 tablet^Rfl: 5 gabapentin (NEURONTIN) 300 mg capsule^Take 3 capsules by mouth daily at lunch^Disp: 90 capsule^Rfl: 5 polyethylene glycol 3350 17 gram/dose powder^Take 17 g by mouth two times a day as needed for constipation. Drink a mix of 1 scoop in 8oz of water/beverage once daily as needed for constipation.^Disp: 238 g^Rfl: 1 insulin glargine U-300 conc (TOUJEO SOLOSTAR U-300 INSULIN) 300 unit/mL (1.5 mL)^Inject 18 Units subcutaneously every morning.^Disp: 3 Each^Rfl: 5 Miscellaneous Medical Supply^D/C CPAP - last sleep study not showing ARIANA. Confirmed with pulmonary as well.^Disp: 1 Each^Rfl: 0 flash glucose scanning reader (FREESTYLE IZABELLA 2 READER)^1 Each four times daily. checking blood sugars DX E11.9 Insulin Yes^Disp: 1 Each^Rfl: 0 pen needle, diabetic (NOVOFINE PLUS) 32 gauge x 1/6^Use to inject insulin once daily^Disp: 100 Each^Rfl: 1 Surgical Lubricant Jelly gel^For MRI Female Pelvis, MRI department to provide. Administer intra-vaginal Surgilube immediately prior the MRI procedure (total amount to patient toleranace).^Disp: 5 g^Rfl: 1 (Patient not taking: Reported on 09/14/2022) OXYGEN, HOME THERAPY,^2 L/min by Mask route daily at bedtime. CPAP 2L at night^Disp: ^Rfl: cloNIDine HCl (CATAPRES) 0.1 mg tablet^Take 1 tablet by mouth once daily.^Disp: ^Rfl: omeprazole (PRILOSEC) 20 mg capsule^Take 20 mg by mouth once daily.^Disp: ^Rfl: AUSTEDO 6 mg tab^Take 6 mg by mouth twice daily.^Disp: ^Rfl: Lancets lancets^Test Four times a day. Insulin Dep? Yes E11.9 DM 2^Disp: 200 Each^Rfl: 4 blood sugar diagnostic (BLOOD GLUCOSE TEST) test strip^Test Four times a day. Insulin Dep? Yes E11.9 DM 2^Disp: 300 Strip^Rfl: 3 calcium carbonate 600 mg-cholecalciferol 200 units (CALCARB 600 WITH VITAMIN D) 600 mg(1,500mg) -200 unit tab^Take 1 tablet by mouth twice daily.^Disp: 60 tablet^Rfl: 5 wheat dextrin (BENEFIBER SUGAR FREE, DEXTRIN,) 3 gram/4 gram powd^1/2 tablespoon per day x2 weeks. Then increase by 1/2 tablespoon every 2 weeks until you are taking 3 tablespoons per day in divided doses.^Disp: 248 g^Rfl: 3 docusate sodium (COLACE) 100 mg capsule^Take 1 capsule by mouth twice daily as needed for Constipation.^Disp: 60 capsule^Rfl: 1 COMPOUNDED PRESCRIPTION^PORTABLE OXYGEN TANKS FOR USE IN BACK PACK USES 3 Lpm WHEN ON PORTABLE TANK to use with exertion DX R79.81^Disp: 4 Each^Rfl: 11 (Patient not taking: Reported on 09/14/2022) COMPOUNDED PRESCRIPTION^EMERGENCY BACKUP OXYGEN TANK FOR WHEN PATIENT LOSES ELECTRICITY DX R79.81^Disp: 1 Each^Rfl: 11 (Patient not taking: Reported on 09/14/2022) COMPOUNDED PRESCRIPTION^Oxygen supplies dx: R79.81 R06.02^Disp: 1 Each^Rfl: 99 COMPOUNDED PRESCRIPTION^CPAP supplies Dx: G47.33^Disp: 1 Box^Rfl: 99 (Patient not taking: Reported on 01/13/2023) COMPOUNDED PRESCRIPTION^Home Oxygen, 2 litres with cpap machine^Disp: 1 Each^Rfl: 0 (Patient not taking: Reported on 09/14/2022) blood sugar diagnostic (ONETOUCH ULTRA TEST) test strip^Test blood sugar(s) 4 times daily. Dx: Type 2 DM - Uncontrolled E11.65 Insulin: Yes^Disp: 200 Strip^Rfl: 11 Lancets (ACCU-CHEK FASTCLIX) lancets^With Accuchek fastclix lancing device. Check sugars 4x/day Dx: e11.65 Insulin: Yes^Disp: 200 Each^Rfl: 11 FAMILY HISTORY Problem Relation Age of Onset Diabetes Mother Heart Mother Diabetes Father Heart Father Colon Cancer Sister Asthma No Family History Social History Tobacco Use Smoking status: Former Packs/day: 0.10 Years: 3.00 Additional pack years: 0.00 Total pack years: 0.30 Types: Cigarettes Quit date: 04/25/1988 Years since quittin.9 Smokeless tobacco: Never Tobacco comments: No smoking in childhood home. Roomate of last 10 years smoked while living with patient. Vaping Use Vaping Use: Never used Substance Use Topics Alcohol use: No Drug use: No PHYSICAL EXAM BP 112/62 Pulse 75 Resp 16 Wt 85.7 kg (189 lb) LMP 04/10/2012 (Approximate) SpO2 96% BMI 32.44 kg/m General Appearance: well appearing, in no acute distress, alert Pysch: mood and affect broad and appropriate Skin: Skin color, texture, turgor normal for age; Eyes: conjunctiva pink and moist, no icterus, sclera white, non-injected Lungs: Lungs clear to auscultation. No wheezing, rhonchi, rales. Heart: RRR without murmur, gallop, or rubs. No ectopy Neck: Inspection: normal Palpation: nontender ROM: full Musculoskeletal: Left shoulder: normal to inspection. tenderness with palpation of deltoid and biceps tendon. ROM: full. Special tests: Drop arm: -, Empty Can: -, Upper extremities: reflexes: +2 to bilateral U/L extremities.. Muscle strength: 5/5 upper, bilaterally Health maintenance reviewed with patient: Advance Directive Discussion due on 02/15/2023 Depression Assessment due on 02/15/2023 Mammogram Screening due on 04/16/2023 Bone Density Screening due on 06/12/2023 RSV Vaccine(1 - 1-dose 60+ series) due on 01/14/2024 Covid-19 Vaccine(2022- season) due on 01/14/2024 HbA1C due on 07/14/2023 Dilated Retinal Exam due on 07/22/2023 Urine Albumin:Creatinine Ratio due on 10/07/2023 LDL Cholesterol due on 12/12/2023 Diabetic Foot Exam due on 01/14/2024 Annual PCP Team Chronic Disease Visit due on 03/01/2024 Colorectal Cancer Screening due on 09/19/2024 DTaP,Tdap,Td Vaccine(5 - Td or Tdap) due on 10/03/2030 Influenza Vaccine Completed Hepatitis C Screening Completed Shingrix Vaccine Completed Pneumococcal Vaccine: 65+ Completed Pap Testing Discontinued DATA REVIEWED: No new labs ASSESSMENT/PLAN: 1. Depression with anxiety - ICD9: 300.4, ICD10: F41.8 (primary diagnosis) -uncontrolled result of parkinsons - SERTRALINE 100 MG TABLET - Reviewed concept of neurochemical imbalance wth depression/anxiety, treatment options and benefits of counseling in combination with medication. Also reviewed benefits of sleep hygeine, diet and exercise - Instructed patient to contact office or [id number] after-hours promptly should condition worsen or any new symptoms appear. - Counseling Center [facility] and after hours crisis line 2. Parkinson's disease, unspecified whether dyskinesia present, unspecified whether manifestations fluctuate (HCC) - ICD9: 332.0, ICD10: G20.A1 SW notified and will contact patient regarding options to help with cooking and cleaning at home along with possible programs for people to stop by and visit. 3. Diabetes mellitus type 2 (HCC) - ICD9: 250.00, ICD10: E11.9 - Controlled - Continue current medications and recommendations by clinical pharmacology. - Blood glucose monitoring on a continuous glucose monitoring schedule - Counseled on healthy diet and regular exercise - Discussed need for and benefit of weight loss. BMI 32.44 kg/(m^2) - HEMOGLOBIN A1C (POC) 4. Encounter for screening mammogram for malignant neoplasm of breast - ICD9: V76.12, ICD10: Z12.31 - ANGELITA SCREENING 5. Pain of left upper extremity - ICD9: 729.5, ICD10: M79.602 - diclofenac gel as ordered - heat and ice with rest and gentle stretching as discussed. Prescription instructions reviewed with patient as applicable. Potential red flag symptoms discussed with the patient. Reviewed appropriate action plan to take if red flag symptoms occur. Patient agreeable to treatment plan. Inna Small APRN.CNP documented in this encounter [facility] 04-02-2023 Miscellaneous Notes PDMP website checked and validated. All prescriptions have been APPROPRIATELY filled. No suspicious activity was identified. 04/02/2023 by Inna Small APRN.CNP Patient has been identified by name and date of : Pharmacy phones for refill(s): Requested Prescriptions Pending Prescriptions Disp Refills zolpidem (AMBIEN) 5 mg tablet 30 tablet 2 Sig: Take 1 tablet by mouth at bedtime as needed for sedation for up to 90 days. TAKE 1 TABLET BY MOUTH AT BEDTIME NEEDED FOR SEDATION acyclovir (ZOVIRAX) 400 mg tablet 60 tablet 11 Sig: Take 1 tablet by mouth two times a day. rOPINIRole (REQUIP) 0.5 mg tablet 60 tablet 11 Sig: TAKE 1 TABLET BY MOUTH TWICE A DAY (NOON AND BEDTIME) Cholecalciferol, Vitamin D3, (VITAMIN D-3) 50 mcg (2,000 unit) cap 30 capsule 11 Sig: Take 1 capsule by mouth once daily. Date of last office visit in primary care: 01/13/2023 Date of next office visit in primary care: 04/15/2023 Please advise. Thank you. Divina Alcantara LPN. documented in this encounter [facility] 01-25-2023 History of Presen t illness Narrative Primary Care Pharmacy Visit CC (Reason for Consult): (E11.9) Diabetes mellitus type 2 (HCC) (primary encounter diagnosis) Goal(s): A1c < 7% Last Collaborating Physician Visit: 01/13/23 Melanie Bird is a 67 year old female presenting for follow up visit telephone call. Patient consents to pharmacy collaborative practice agreement. . At last visit with pharmacy on 12/21 the following changes were made: Ordered Ozempic [address] of 2 mg as patient was not able to secure 2 mg supply due to back order HPI: Has been on Ozempic 1 mg dose Does not feel that appetite is suppressed enough on lower dose Having trouble getting sensor supplies [facility] DIET/EXERCISE/SOCIAL Hx: Now get meals on meals, has a hot meal at lunch time Exercise: Walking more now No longer has a car GLYCEMIC CONTROL: CGM Data Date range Overall AVG TIME IN RANGE 7 day - not enough data ABOVE 40 14 day 183 IN (80-180) 60 30 day 167 BELOW Past medical history reviewed. MEDICATIONS: Adherence: denies missed doses ALLERGIES Allergen Reactions Seroquel [Quetiapin* Mental Status Change Victoza [Liraglutid* GI Upset Current Outpatient Medications Medication Sig Dispense Refill atorvastatin (LIPITOR) 20 mg tablet Take 1 tablet by mouth once daily. 28 tablet 11 fexofenadine (SEFERINO) 180 mg tablet Take 1 tablet by mouth once daily. 28 tablet 3 zolpidem (AMBIEN) 5 mg tablet Take 1 tablet by mouth at bedtime as needed for sedation for up to 90 days. TAKE 1 TABLET BY MOUTH AT BEDTIME NEEDED FOR SEDATION 30 tablet 2 semaglutide (OZEMPIC) 1 mg/dose (4 mg/3 mL) pen Inject 1 mg subcutaneously one time a week. 3 mL 2 gabapentin (NEURONTIN) 600 mg tablet Take 3 tablets by mouth daily at bedtime for 180 days. 90 tablet 5 gabapentin (NEURONTIN) 300 mg capsule Take 3 capsules by mouth daily at lunch 90 capsule 5 polyethylene glycol 3350 17 gram/dose powder Take 17 g by mouth two times a day as needed for constipation. Drink a mix of 1 scoop in 8oz of water/beverage once daily as needed for constipation. 238 g 1 semaglutide (OZEMPIC) 2 mg/dose (8 mg/3 mL) pen injector Inject 2 mg subcutaneously one time a week. 3 mL 3 insulin glargine U-300 conc (TOUJEO SOLOSTAR U-300 INSULIN) 300 unit/mL (1.5 mL) Inject 18 Units subcutaneously every morning. 3 Each 5 sertraline (ZOLOFT) 50 mg tablet Take 1 tablet by mouth once daily. 30 tablet 5 Miscellaneous Medical Supply D/C CPAP - last sleep study not showing ARIANA. Confirmed with pulmonary as well. 1 Each 0 flash glucose scanning reader (ZyncdSTYLE IZABELLA 2 READER) 1 Each four times daily. checking blood sugars DX E11.9 Insulin Yes 1 Each 0 pen needle, diabetic (NOVOFINE PLUS) 32 gauge x 1/6 Use to inject insulin once daily 100 Each 1 acyclovir (ZOVIRAX) 400 mg tablet Take 1 tablet by mouth twice daily. 60 tablet 11 rOPINIRole (REQUIP) 0.5 mg tablet TAKE 1 TABLET BY MOUTH TWICE A DAY (NOON AND BEDTIME) 60 tablet 11 Cholecalciferol, Vitamin D3, (VITAMIN D-3) 50 mcg (2,000 unit) cap Take 1 capsule by mouth once daily. 30 capsule 11 ascorbic acid, vitamin C, (VITAMIN C) 500 mg tablet Take 1 tablet by mouth once daily. 30 tablet 11 magnesium oxide (MAG-OX) 400 mg (241.3 mg magnesium) tablet Take 2 tablets by mouth once daily. 60 tablet 11 flash glucose sensor (FREESTYLE IZABELLA 2 SENSOR) kit Use to monitor blood sugars 4 times daily 6 Each 3 Surgical Lubricant Jelly gel For MRI Female Pelvis, MRI department to provide. Administer intra-vaginal Surgilube immediately prior the MRI procedure (total amount to patient toleranace). (Patient not taking: Reported on 09/14/2022) 5 g 1 OXYGEN, HOME THERAPY, 2 L/min by Mask route daily at bedtime. CPAP 2L at night cloNIDine HCl (CATAPRES) 0.1 mg tablet Take 1 tablet by mouth once daily. omeprazole (PRILOSEC) 20 mg capsule Take 20 mg by mouth once daily. AUSTEDO 6 mg tab Take 6 mg by mouth twice daily. Lancets lancets Test Four times a day. Insulin Dep? Yes E11.9 DM 2 200 Each 4 blood sugar diagnostic (BLOOD GLUCOSE TEST) test strip Test Four times a day. Insulin Dep? Yes E11.9 DM 2 300 Strip 3 calcium carbonate 600 mg-cholecalciferol 200 units (CALCARB 600 WITH VITAMIN D) 600 mg(1,500mg) -200 unit tab Take 1 tablet by mouth twice daily. 60 tablet 5 wheat dextrin (BENEFIBER SUGAR FREE, DEXTRIN,) 3 gram/4 gram powd 1/2 tablespoon per day x2 weeks. Then increase by 1/2 tablespoon every 2 weeks until you are taking 3 tablespoons per day in divided doses. 248 g 3 docusate sodium (COLACE) 100 mg capsule Take 1 capsule by mouth twice daily as needed for Constipation. 60 capsule 1 COMPOUNDED PRESCRIPTION PORTABLE OXYGEN TANKS FOR USE IN BACK PACK USES 3 Lpm WHEN ON PORTABLE TANK to use with exertion DX R79.81 (Patient not taking: Reported on 09/14/2022) 4 Each 11 COMPOUNDED PRESCRIPTION EMERGENCY BACKUP OXYGEN TANK FOR WHEN PATIENT LOSES ELECTRICITY DX R79.81 (Patient not taking: Reported on 09/14/2022) 1 Each 11 COMPOUNDED PRESCRIPTION Oxygen supplies dx: R79.81 R06.02 1 Each 99 COMPOUNDED PRESCRIPTION CPAP supplies Dx: G47.33 (Patient not taking: Reported on 01/13/2023) 1 Box 99 COMPOUNDED PRESCRIPTION Home Oxygen, 2 litres with cpap machine (Patient not taking: Reported on 09/14/2022) 1 Each 0 blood sugar diagnostic (ONETOUCH ULTRA TEST) test strip Test blood sugar(s) 4 times daily. Dx: Type 2 DM - Uncontrolled E11.65 Insulin: Yes 200 Strip 11 Lancets (ACCU-CHEK FASTCLIX) lancets With Accuchek fastclix lancing device. Check sugars 4x/day Dx: e11.65 Insulin: Yes 200 Each 11 Current Facility-Administered Medications Medication Dose Route Frequency Provider Last Rate Last Admin perflutren lipid microspheres 1.3 mL in NaCl (PF) 0.9% 10 mL injection (DEFINITY) INTRAVENOUS DIRECTED Shawanda Johnson MD sodium chloride 0.9 % (flush) 10 mL (BD POSIFLUSH) 10 mL INTRAVENOUS DIRECTED Shawanda Johnson MD EXAM: LMP 04/10/2012 (Approximate) Last 3 Encounter BP Readings: Date: BP: 01/13/2023 112/60 10/12/2022 114/62 09/14/2022 110/58 Wt: 190 lb (86.2 kg) BMI: 32.61 kg/(m^2) LABS: reviewed Lab Results Component Value Date HBA1C 7.2 01/13/2023 HBA1C 6.8 10/06/2022 HBA1C 8.0 06/11/2022 HBA1C 6.8 03/03/2022 HBA1C 6.7 12/11/2021 HBA1C 7.0 11/15/2020 HBA1C 7.2 09/02/2020 HBA1C 8.2 06/03/2020 Glucose 93 12/11/2022 BUN 9 12/11/2022 Creatinine, Whole Blood (iSTAT) 0.51 12/11/2022 Sodium 141 12/11/2022 Potassium 4.5 12/11/2022 Chloride 102 12/11/2022 CO2 29 12/11/2022 Protein, Total 6.0 12/11/2022 Albumin 4.0 12/11/2022 Calcium 9.4 12/11/2022 Alkaline Phosphatase 73 12/11/2022 Bilirubin, Total 0.5 12/11/2022 AST 62 12/11/2022 ALT 75 12/11/2022 Lab Results Component Value Date CHOL 115 12/11/2022 CHOL 138 11/15/2020 LDL 48 12/11/2022 LDL 72 11/15/2020 HDL 51 12/11/2022 HDL 45 11/15/2020 TG 80 12/11/2022 TG 103 11/15/2020 Albumin/Creat Ratio (mg/g) Date Value 07/30/2021 <10 eGFR- (no units) Date Value 11/15/2020 >60 ASSESSMENT/PLAN: 1. Diabetes mellitus type 2 (HCC) - ICD9: 250.00, ICD10: E11.9 (primary diagnosis) - Uncontrolled. A1c goal <7%. A1c not at goal at last check. SMBGs trending up since taking Ozempic lower dose of 1 mg. Today, discussed trying to locate Ozempic 2 mg supply at local pharmacy or considering switch to Mounjaro. Patient wishes to check with insurance to compare co-pays., - Continue Toujeo 18 units once daily - Continue Ozempic 1 mg once weekly - updated order for Ozempic 2 mg sent to pharmacy to check on supply - Blood glucose monitoring on a continuous glucose monitoring schedule - Patient will compare copay or Mounjaro vs Ozempic Follow up: Pharmacy follow up: 03/01/23 Donis Harris, PharmD, BCACP Primary Care Clinical Pharmacist The majority of the pharmacy visit (> 50%) was spent counseling and/or coordinating care for the patient. interaction: telephonic time was 15 minutes. documented in this encounter [facility] 01-13-2023 Miscellaneous Notes Date of last office: 01/13/2023 Date of next office visit: 04/15/2023 Requested Prescriptions Pending Prescriptions Disp Refills atorvastatin (LIPITOR) 20 mg tablet 28 tablet 11 Sig: Take 1 tablet by mouth once daily. fexofenadine (SEFERINO) 180 mg tablet 28 tablet 3 Sig: Take 1 tablet by mouth once daily. zolpidem (AMBIEN) 5 mg tablet 30 tablet 2 Sig: Take 1 tablet by mouth at bedtime as needed for sedation for up to 90 days. TAKE 1 TABLET BY MOUTH AT BEDTIME NEEDED FOR SEDATION Date of Last Labs: 12/11/2022 Please advise. Thank you. Ameena Hodge RN. documented in this encounter [facility] 01-13-2023 History of Presen t illness Narrative CC: Patient presents with: F/U Diabetes 3 Month HPI Melanie Bird is a 67 year old female who presents today for routine follow up. DIABETES MELLITUS: Ms. Bird denies excessive thirst or increased frequency of urination, chest pain or dyspnea , numbness, tingling or pain in extremities, new or unusual visual symptoms, low sugar/hypoglycemic reactions, weight loss/gain, lightheadedness/dizziness, and bowel changes/loose stools. Follows a diabetic diet most of the time except has been having to use tv dinners because of her parkinsons which is not as strong. She is compliant with medication(s) and is tolerating med(s) without any side effects. She reports checking her glucose on a CGm schedule with average in 150s-160s. Patient's last HgA1C was Hemoglobin A1C (%) Date Value 10/06/2022 6.8 03/03/2022 6.8 11/15/2020 7.0 09/02/2020 7.2 Hemoglobin A1C (POCT) (%) Date Value 06/11/2022 8.0 12/11/2021 6.7 ) Last Ophthalmology exam was within the past 12 months Saw clinical pharmacology recently without any med changes outside of sending script for 1mg of Ozempic if unable to get her 2mg dose. Has been on the 1mg for a month and is unsure when 2mg dosage will be available. Parkinsons: Tremors worsening and making feeding herself difficult. Does build up silverware but does not feel like it improves eating much. Gets tv dinners as it is difficult to also prepare food. Has started contact with meals on wheels but has no family near her. Saw Dr. White with neurology 3 months ago with medications increased and sees again this Wednesday. Right yeboah nodule that when it was first noticed a few months ago it was tender and painful. The pain would start at right knee and radiate to nodule when walking. Pain and tenderness self resolved a few weeks after being noticed but still with the nodule. Denies fall, injury, weakness, numbness, edema, redness, recent infection, fever, or chills. REVIEW OF SYSTEMS General: no fevers, no chills, no night sweats, no recurrent infections, no change in appetite, no change in energy, and no significant changes in weight Respiratory: no cough, no wheezing, no shortness of breath, no hemoptysis Cardiovascular: no chest pain, no chest pressure, no palpitations, and no swelling Endocrine: no fatigue, no polyuria, no polyphagia, and no polydipsia Neurologic: No headache, weakness, numbness, tingling, dizziness, memory loss, syncope. PAST MEDICAL HISTORY Diagnosis Date Depression Diabetes mellitus type 2, uncontrolled High cholesterol History of colon polyps History of gallstones IBS (irritable bowel syndrome) Obesity 04/25/2013 BMI 48.43 ARIANA (obstructive sleep apnea) 03/06/2013 Parkinson disease PAST SURGICAL HISTORY Procedure Laterality Date ANAL SPHINCTEROPLASTY SPHINCTEROPLASTY ANAL W/ IMPLANT ARTIFICIAL SPHINCTER ADULT BARIATRIC SURGERY HX 05/28/2021 CATARACT EXTRACTION HX Bilateral 08/2012 COLONOSCOPY GEN ANES 04/2019 INCISE FINGER TENDON SHEATH 12/20/2012 Left 3rd trigger finger release MANIPULATION KNEE JOINT UNDER GENERAL ANESTHESIA Left 01/23/2022 Left knee manipulation under anesthesia PAST SURGICAL HISTORY OF 06/2012 Interstim PAST SURGICAL HISTORY OF Right trigger thumb REMOVAL GALLBLADDER 2001 REMOVAL OF OVARY/TUBE(S) Bilateral 07/31/2022 Laparoscopic BSO and Myomectomy at [facility]- Dr. Delacruz TOTAL KNEE REPLACEMENT Left 10/29/2021 Left robotic total knee replacement ALLERGIES Seroquel [Quetiapine Fumarate] and Victoza [Liraglutide] MEDICATIONS semaglutide (OZEMPIC) 1 mg/dose (4 mg/3 mL) pen^Inject 1 mg subcutaneously one time a week.^Disp: 3 mL^Rfl: 2 gabapentin (NEURONTIN) 600 mg tablet^Take 3 tablets by mouth daily at bedtime for 180 days.^Disp: 90 tablet^Rfl: 5 gabapentin (NEURONTIN) 300 mg capsule^Take 3 capsules by mouth daily at lunch^Disp: 90 capsule^Rfl: 5 polyethylene glycol 3350 17 gram/dose powder^Take 17 g by mouth two times a day as needed for constipation. Drink a mix of 1 scoop in 8oz of water/beverage once daily as needed for constipation.^Disp: 238 g^Rfl: 1 insulin glargine U-300 conc (TOUJEO SOLOSTAR U-300 INSULIN) 300 unit/mL (1.5 mL)^Inject 18 Units subcutaneously every morning.^Disp: 3 Each^Rfl: 5 zolpidem (AMBIEN) 5 mg tablet^Take 1 tablet by mouth at bedtime as needed for sedation for up to 90 days. TAKE 1 TABLET BY MOUTH AT BEDTIME NEEDED FOR SEDATION^Disp: 30 tablet^Rfl: 2 fexofenadine (SEFERINO) 180 mg tablet^Take 1 tablet by mouth once daily.^Disp: 28 tablet^Rfl: 3 sertraline (ZOLOFT) 50 mg tablet^Take 1 tablet by mouth once daily.^Disp: 30 tablet^Rfl: 5 flash glucose scanning reader (ZyncdSTYLE IZABELLA 2 READER)^1 Each four times daily. checking blood sugars DX E11.9 Insulin Yes^Disp: 1 Each^Rfl: 0 pen needle, diabetic (NOVOFINE PLUS) 32 gauge x /6^Use to inject insulin once daily^Disp: 100 Each^Rfl: 1 acyclovir (ZOVIRAX) 400 mg tablet^Take 1 tablet by mouth twice daily.^Disp: 60 tablet^Rfl: 11 rOPINIRole (REQUIP) 0.5 mg tablet^TAKE 1 TABLET BY MOUTH TWICE A DAY (NOON AND BEDTIME)^Disp: 60 tablet^Rfl: 11 Cholecalciferol, Vitamin D3, (VITAMIN D-3) 50 mcg (2,000 unit) cap^Take 1 capsule by mouth once daily.^Disp: 30 capsule^Rfl: 11 ascorbic acid, vitamin C, (VITAMIN C) 500 mg tablet^Take 1 tablet by mouth once daily.^Disp: 30 tablet^Rfl: 11 magnesium oxide (MAG-OX) 400 mg (241.3 mg magnesium) tablet^Take 2 tablets by mouth once daily.^Disp: 60 tablet^Rfl: 11 atorvastatin (LIPITOR) 20 mg tablet^Take 1 tablet by mouth once daily.^Disp: 28 tablet^Rfl: 11 cloNIDine HCl (CATAPRES) 0.1 mg tablet^Take 1 tablet by mouth once daily.^Disp: ^Rfl: omeprazole (PRILOSEC) 20 mg capsule^Take 20 mg by mouth once daily.^Disp: ^Rfl: AUSTEDO 6 mg tab^Take 6 mg by mouth twice daily.^Disp: ^Rfl: blood sugar diagnostic (BLOOD GLUCOSE TEST) test strip^Test Four times a day. Insulin Dep? Yes E11.9 DM 2^Disp: 300 Strip^Rfl: 3 calcium carbonate 600 mg-cholecalciferol 200 units (CALCARB 600 WITH VITAMIN D) 600 mg(1,500mg) -200 unit tab^Take 1 tablet by mouth twice daily.^Disp: 60 tablet^Rfl: 5 wheat dextrin (BENEFIBER SUGAR FREE, DEXTRIN,) 3 gram/4 gram powd^1/2 tablespoon per day x2 weeks. Then increase by 1/2 tablespoon every 2 weeks until you are taking 3 tablespoons per day in divided doses.^Disp: 248 g^Rfl: 3 docusate sodium (COLACE) 100 mg capsule^Take 1 capsule by mouth twice daily as needed for Constipation.^Disp: 60 capsule^Rfl: 1 COMPOUNDED PRESCRIPTION^Oxygen supplies dx: R79.81 R06.02^Disp: 1 Each^Rfl: 99 blood sugar diagnostic (Tinsel CinemaTOUCH ULTRA TEST) test strip^Test blood sugar(s) 4 times daily. Dx: Type 2 DM - Uncontrolled E11.65 Insulin: Yes^Disp: 200 Strip^Rfl: 11 Lancets (ACCU-CHEK FASTCLIX) lancets^With AccBacchus Vascular fastclix lancing device. Check sugars 4x/day Dx: e11.65 Insulin: Yes^Disp: 200 Each^Rfl: 11 semaglutide (OZEMPIC) 2 mg/dose (8 mg/3 mL) pen injector^Inject 2 mg subcutaneously one time a week.^Disp: 3 mL^Rfl: 3 Miscellaneous Medical Supply^D/C CPAP - last sleep study not showing ARIANA. Confirmed with pulmonary as well.^Disp: 1 Each^Rfl: 0 flash glucose sensor (FREESTYLE IZABELLA 2 SENSOR) kit^Use to monitor blood sugars 4 times daily^Disp: 6 Each^Rfl: 3 Surgical Lubricant Jelly gel^For MRI Female Pelvis, MRI department to provide. Administer intra-vaginal Surgilube immediately prior the MRI procedure (total amount to patient toleranace).^Disp: 5 g^Rfl: 1 (Patient not taking: Reported on 09/14/2022) OXYGEN, HOME THERAPY,^2 L/min by Mask route daily at bedtime. CPAP 2L at night^Disp: ^Rfl: Lancets lancets^Test Four times a day. Insulin Dep? Yes E11.9 DM 2^Disp: 200 Each^Rfl: 4 COMPOUNDED PRESCRIPTION^PORTABLE OXYGEN TANKS FOR USE IN BACK PACK USES 3 Lpm WHEN ON PORTABLE TANK to use with exertion DX R79.81^Disp: 4 Each^Rfl: 11 (Patient not taking: Reported on 09/14/2022) COMPOUNDED PRESCRIPTION^EMERGENCY BACKUP OXYGEN TANK FOR WHEN PATIENT LOSES ELECTRICITY DX R79.81^Disp: 1 Each^Rfl: 11 (Patient not taking: Reported on 09/14/2022) COMPOUNDED PRESCRIPTION^CPAP supplies Dx: G47.33^Disp: 1 Box^Rfl: 99 (Patient not taking: Reported on 01/13/2023) COMPOUNDED PRESCRIPTION^Home Oxygen, 2 litres with cpap machine^Disp: 1 Each^Rfl: 0 (Patient not taking: Reported on 09/14/2022) FAMILY HISTORY Problem Relation Age of Onset Diabetes Mother Heart Mother Diabetes Father Heart Father Colon Cancer Sister Asthma No Family History Social History Tobacco Use Smoking status: Former Packs/day: 0.10 Years: 3.00 Additional pack years: 0.00 Total pack years: 0.30 Types: Cigarettes Quit date: 04/25/1988 Years since quittin.7 Smokeless tobacco: Never Tobacco comments: No smoking in childhood home. Roomate of last 10 years smoked while living with patient. Vaping Use Vaping Use: Never used Substance Use Topics Alcohol use: No Drug use: No PHYSICAL EXAM BP 112/60 Pulse 63 Resp 16 Wt 86.2 kg (190 lb) LMP 04/10/2012 (Approximate) SpO2 96% BMI 32.61 kg/m General Appearance: well appearing, in no acute distress, alert Pysch: mood and affect broad and appropriate Skin: Skin color, texture, turgor normal for age; Eyes: conjunctiva pink and moist, no icterus, sclera white, non-injected Lungs: Lungs clear to auscultation. No wheezing, rhonchi, rales. Heart: RRR without murmur, gallop, or rubs. No ectopy BLE Extremities: No edema, skin discoloration, clubbing or cyanosis. Good capillary refill. Small firm nontender, non red nodule to right yeboah. Feet:Shoes and socks removed, normal distal pulses, sensitive to 10 gm monofilament, and vibratory perception normal Health maintenance reviewed with patient: RSV Vaccine(1 - 1-dose 60+ series) Never done Diabetic Foot Exam due on 09/20/2020 Covid-19 Vaccine() due on 01/13/2023 Bone Density Screening due on 06/12/2023 HbA1C due on 04/08/2023 Mammogram Screening due on 04/16/2023 Dilated Retinal Exam due on 07/22/2023 Urine Albumin:Creatinine Ratio due on 10/07/2023 LDL Cholesterol due on 12/12/2023 Annual PCP Team Chronic Disease Visit due on 12/22/2023 Colorectal Cancer Screening due on 09/19/2024 DTaP,Tdap,Td Vaccine(5 - Td or Tdap) due on 10/03/2030 Hepatitis B Vaccine Completed Influenza Vaccine Completed Advance Directive Discussion Completed Depression Assessment Completed Hepatitis C Screening Completed Shingrix Vaccine Completed Pneumococcal Vaccine: 65+ Completed Pap Testing Discontinued HIV Screening Discontinued DATA REVIEWED: Most recent labs ASSESSMENT/PLAN: 1. Diabetes mellitus type 2 (HCC) - ICD9: 250.00, ICD10: E11.9 (primary diagnosis) - Worsening control - not increasing meds at this time as patient is awaiting 2mg ozempic to be available again and is trying different options to hopefully have healthier food available. - Continue current medications - Blood glucose monitoring on a continuous glucose monitoring schedule - Counseled on healthy diet and regular exercise - Discussed need for and benefit of weight loss. BMI 32.61 kg/(m^2) - HEMOGLOBIN A1C (POC) 2. 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 - XR TIBIA FIBULA 2V AP/LAT RIGHT 3. Parkinson's disease, unspecified whether dyskinesia present, unspecified whether manifestations fluctuate - ICD9: 332.0, ICD10: G20.A1 - tremors worsening and effecting eating and cooking - per patient insurance will not cover a home performance consultant - continue with plans to establish with meals on wheels - patient does have evangelical support so discussed talking to her lining cutter to see if there are any programs in the evangelical for members to cook meals for those in need. - continue with recommendations by neurology and upcoming appointment. Prescription instructions reviewed with patient as applicable. Potential red flag symptoms discussed with the patient. Reviewed appropriate action plan to take if red flag symptoms occur. Patient agreeable to treatment plan. Inna Small APRN.CNP documented in this encounter [facility] 12-30-2022 Telephone encounter Note Unable to reach patient regarding results. Will mail recommendation for patient to call the office regarding abnormal results for accurate supplementation. Will recheck after return phone call has been made. [employer] Phone: 12-30-2022 Telephone encounter Note Called patient to discuss abnormal labs, no answer, left voicemail for patient to call back. [place] [facility] 12-30-2022 Miscellaneous Notes Unable to reach patient regarding results. Will mail recommendation for patient to call the office regarding abnormal results for accurate supplementation. Will recheck after return phone call has been made. Called patient to discuss abnormal labs, no answer, left voicemail for patient to call back. Called patient to discuss abnormal labs, no answer, left voicemail for patient to call back. Lab: (12/11/22) Zinc 132 (H) Protein: 6.0 (L) ALT/AST documented in this encounter [facility] 12-18-2022 Note [facility] CARE [facility] POST-OPERATIVE WEIGHT LOSS MANAGEMENT PROGRESS NOTE - FOLLOW UP HPI: Patient here today for 18 month post-weight loss surgery follow up The patient is a pleasant 67 y.o. year old female. The patient is feeling well. Denies nausea, vomiting, dysphagia, or any GERD Sx. Currently is not taking a PPI. Patient states diet and exercise is going fairly well. Currently is eating 65-75 gm/day protein, and is compliant with prescribed multivitamins and supplements. Weight trend since last visit: lost 8 lbs over 1 m Please review blood work results for the pt. Thank you Labs were Completed. All labs were: discussed Social History Tobacco Use Smoking status: Former Packs/day: .5 Types: Cigarettes Quit date: 02/16/1976 Years since quittin.8 Smokeless tobacco: Never Substance Use Topics Alcohol use: Not Currently This patient's excess weight is causing the following co-morbid conditions at this time: DM PLAN Physical Examination: BP 108/72 Pulse 70 Ht 5' 4 (1.626 m) Wt 191 lb 3.2 oz (86.7 kg) BMI 32.82 kg/m? Vital signs are stable. General: This patient is awake, alert, and oriented, and is in no apparent distress. Current Diet This patient?s current diet is: 80% meal plan Her diet contains adequate amounts of protein, adequate amounts of healthy fats, adequate amounts of green, leafy vegetables, and adequate amounts of fruits. Her comfort foods include: none Current Activity This patient currently does exercise for 30 Minutes per session, 5 times per week, including the following: walking. Current Eating Behaviors This patients demonstrates the following behaviors as they relate to her eating: structured She eats approximately 5-6 times per day. Her last meal/snack was at 5 am/pm. Progress Made Towards Goals: 3 month weight goal: 0 6 month weight goal: 0 12 month weight goal: 0 Plan: This patient's excess weight is causing the following co-morbid conditions at this time: S/p bariatric surgery stable Continue current management, continue weight loss program [x] Protein goal of 1g protein per 1 kg of ideal body weight: 75 grams [x] Patient advised to maintain a food/exercise/behavior diary until next physician visit. Pt to bring the completed diary to next visit [x] Lab order provided to patient for labs to be drawn for next visit and 3 months Patient instructed to continue post-weight loss surgery diet recommendations. Patient instructed to continue to monitor for signs and symptoms of GERD Psych concerns : No Excessive skin concerns: No Refer to plastic surgery Physician Diet Recommendations given to patient See Follow up Section of today's encounter for next visit and additional scheduling orders Orders Placed This Encounter Procedures Zinc These orders are set for an approximate date - they can be drawn up to 3 months prior to the Expected Date on this Req. Please send results to: Modesta Daley MD - [address] [facility] [id number] - [phone] And if not done at a [facility], please send to: [address], [address] Patient Name: Melanie Bird - 1955 Order Created by : Mary Munoz LPN Standing Status: Future Number of Occurrences: 1 Standing Expiration Date: 12/19/2023 Folate These orders are set for an approximate date - they can be drawn up to 3 months prior to the Expected Date on this Req. Please send results to: Modesta Daley MD - [address] [facility] [id number] - [phone] And if not done at a [facility] Facility, please send to: [address], [address] Patient Name: Melanie Bird - 1955 Order Created by : Mary Munoz LPN Standing Status: Future Number of Occurrences: 1 Standing Expiration Date: 12/19/2023 Iron These orders are set for an approximate date - they can be drawn up to 3 months prior to the Expected Date on this Req. Please send results to: Modesta Daley MD - [address] [facility] [address] - [phone] And if not done at a [facility] Facility, please send to: [address], [address] Patient Name: Melanie Bird - 1955 Order Created by : Mary Munoz LPN Standing Status: Future Number of Occurrences: 1 Standing Expiration Date: 12/19/2023 Ferritin These orders are set for an approximate date - they can be drawn up to 3 months prior to the Expected Date on this Req. Please send results to: Modesta Daley MD - [address] [facility] [address] - [phone] And if not done at a [facility] Facility, please send to: [facility] - [address] [place] [address], [address] - [place], [address] Fax: [phone] (more content not included)... [facility] 12-18-2022 Note [facility] PROGRESS NOTE POST WEIGHT LOSS SURGERY FOLLOW UP Patient: Melanie Bird Service Date: 12/18/2022 Hanny 191.2 BMI 32.82 Patient is 18 month(s) s/p RnY Gastric Bypass Post-op Weight Metrics: %EBWL: % EBWL: 63% Weight Change Since Last Visit: Weight Change: -8.6 lbs Weight Change from Highest Pre-op Weight: Total Weight Change: -103.8 lbs Patient has the following questions: None Reported Pain: Patient rates pain on scale 0-10 as: 0 Exercise Compliance: Exercising: yes If yes: Type: walking Times per week: 7 Min per session: 10 Falls Risk Assessment Patient does not take medications which affect BP or mental status Patient does not t have newly prescribed or changed dosage of medications within past 30 days which affect BP or mental status Patient has not fallen in the past 2 months Patient does not t demonstrate unsteady gait Patient uses the following ambulatory assistive devices: none Patient states the presence of the following traits which increases risk of fall: Parkinson's Patient is on home O2 Pre-op Weight Metrics: Labs Completed: yes - If NO, patient instructed to get labs drawn today or FELICIA If YES: Labs completed at [facility]? yes If yes see Labs Tab Labs completed at Non-[facility] facility? no If yes see Encounters Tab - Orders only - Historical Provider - Date: Completed by: Mary Munoz LPN [facility] 12-18-2022 History of Presen t illness Narrative [facility] PROGRESS NOTE POST WEIGHT LOSS SURGERY FOLLOW UP Patient: Melanie Bird Service Date: 12/18/2022 Hanny 191.2 BMI 32.82 Patient is 18 month(s) s/p RnY Gastric Bypass Post-op Weight Metrics: %EBWL: % EBWL: 63% Weight Change Since Last Visit: Weight Change: -8.6 lbs Weight Change from Highest Pre-op Weight: Total Weight Change: -103.8 lbs Patient has the following questions: None Reported Pain: Patient rates pain on scale 0-10 as: 0 Exercise Compliance: Exercising: yes If yes: Type: walking Times per week: 7 Min per session: 10 Falls Risk Assessment Patient does not take medications which affect BP or mental status Patient does not t have newly prescribed or changed dosage of medications within past 30 days which affect BP or mental status Patient has not fallen in the past 2 months Patient does not t demonstrate unsteady gait Patient uses the following ambulatory assistive devices: none Patient states the presence of the following traits which increases risk of fall: Parkinson's Patient is on home O2 Pre-op Weight Metrics: Labs Completed: yes - If NO, patient instructed to get labs drawn today or FELICIA If YES: Labs completed at [facility]? yes If yes see Labs Tab Labs completed at Non-[facility] facility? no If yes see Encounters Tab - Orders only - Historical Provider - Date: Completed by: Mary Munoz LPN [facility] POST-OPERATIVE WEIGHT LOSS MANAGEMENT PROGRESS NOTE - FOLLOW UP HPI: Patient here today for 18 month post-weight loss surgery follow up The patient is a pleasant 67 y.o. year old female. The patient is feeling well. Denies nausea, vomiting, dysphagia, or any GERD Sx. Currently is not taking a PPI. Patient states diet and exercise is going fairly well. Currently is eating 65-75 gm/day protein, and is compliant with prescribed multivitamins and supplements. Weight trend since last visit: lost 8 lbs over 1 m Please review blood work results for the pt. Thank you Labs were Completed. All labs were: discussed Social History Tobacco Use Smoking status: Former Packs/day: .5 Types: Cigarettes Quit date: 02/16/1976 Years since quittin.8 Smokeless tobacco: Never Substance Use Topics Alcohol use: Not Currently This patient's excess weight is causing the following co-morbid conditions at this time: DM PLAN Physical Examination: BP 108/72 Pulse 70 Ht 5' 4 (1.626 m) Wt 191 lb 3.2 oz (86.7 kg) BMI 32.82 kg/m Vital signs are stable. General: This patient is awake, alert, and oriented, and is in no apparent distress. Current Diet This patient s current diet is: 80% meal plan Her diet contains adequate amounts of protein, adequate amounts of healthy fats, adequate amounts of green, leafy vegetables, and adequate amounts of fruits. Her comfort foods include: none Current Activity This patient currently does exercise for 30 Minutes per session, 5 times per week, including the following: walking. Current Eating Behaviors This patients demonstrates the following behaviors as they relate to her eating: structured She eats approximately 5-6 times per day. Her last meal/snack was at 5 am/pm. Progress Made Towards Goals: 3 month weight goal: 0 6 month weight goal: 0 12 month weight goal: 0 Plan: This patient's excess weight is causing the following co-morbid conditions at this time: S/p bariatric surgery stable Continue current management, continue weight loss program [x] Protein goal of 1g protein per 1 kg of ideal body weight: 75 grams [x] Patient advised to maintain a food/exercise/behavior diary until next physician visit. Pt to bring the completed diary to next visit [x] Lab order provided to patient for labs to be drawn for next visit and 3 months Patient instructed to continue post-weight loss surgery diet recommendations. Patient instructed to continue to monitor for signs and symptoms of GERD Psych concerns : No Excessive skin concerns: No Refer to plastic surgery Physician Diet Recommendations given to patient See Follow up Section of today's encounter for next visit and additional scheduling orders Orders Placed This Encounter Procedures Zinc These orders are set for an approximate date - they can be drawn up to 3 months prior to the Expected Date on this Req. Please send results to: Modesta Daley MD - [address] [facility] [address] - [phone] And if not done at a [facility] Facility, please send to: [facility] - [address] [place] [address], [address] [facility], [address] Patient Name: Melanie Bird - 1955 Order Created by : Mary Munoz LPN Standing Status: Future Number of Occurrences: 1 Standing Expiration Date: 12/19/2023 Folate These orders are set for an approximate date - they can be drawn up to 3 months prior to the Expected Date on this Req. Please send results to: Modesta Daley MD - [address] [facility] [id number] - [phone] And if not done at a [facility] Facility, please send to: [place] [phone] Patient Name: Melanie Bird - 1955 Order Created by : Mary Munoz LPN Standing Status: Future Number of Occurrences: 1 Standing Expiration Date: 12/19/2023 Iron These orders are set for an approximate date - they can be drawn up to 3 months prior to the Expected Date on this Req. Please send results to: Modesta Daley MD - [address] [facility] [address] - [phone] And if not done at a [facility] Facility, please send to: [place] [phone] Patient Name: Melanie Bird - 1955 Order Created by : Mary Munoz LPN Standing Status: Future Number of Occurrences: 1 Standing Expiration Date: 12/19/2023 Ferritin These orders are set for an approximate date - they can be drawn up to 3 months prior to the Expected Date on this Req. Please send results to: Modesta Daley MD - [address] [facility] [id number] - [phone] And if not done at a [facility] Facility, please send to: [address], [address] Patient Name: Melanie Bird - 1955 Order Created by : Mary Munoz LPN Standing Status: Future Number of Occurrences: 1 Standing Expiration Date: 12/19/2023 Magnesium These orders are set for an approximate date - they can be drawn up to 3 months prior to the Expected Date on this Req. Please send results to: Modesta Daley MD - [address] [facility] [address] - [phone] And if not done at a [facility] Facility, please send to: [address], [facility] Patient Name: Melanie Bird - 1955 Order Created by : Mary Munoz LPN Standing Status: Future Number of Occurrences: 1 Standing Expiration Date: 12/19/2023 Vitamin D Deficiency Screening (Vit D 25) These orders are set for an approximate date - they can be drawn up to 3 months prior to the Expected Date on this Req. Please send results to: MD Tony Wilks [facility] [address] - [phone] And if not done at a [facility] Facility, please send to: [place] [phone] Patient Name: [place] [address] 1955 Order Created by : Mary Munoz LPN Standing Status: Future Number of Occurrences: 1 Standing Expiration Date: 12/19/2023 Vitamin B12 These orders are set for an approximate date - they can be drawn up to 3 months prior to the Expected Date on this Req. Please send results to: Modesta Daley MD - [facility] [facility] [address] - [phone] And if not done at a [facility] Facility, please send to: [address], [address] Patient Name: Melanie Bird 1955 Order Created by : Mary Munoz LPN Standing Status: Future Number of Occurrences: 1 Standing Expiration Date: 12/19/2023 Vitamin B1, whole blood These orders are set for an approximate date - they can be drawn up to 3 months prior to the Expected Date on this Req. Please send results to: Modesta Daley MD - [address] [facility] [address] - [phone] And if not done at a [facility], please send to: [address], [address] Patient Name: Melanie Bird - 1955 Order Created by : Mary Munoz LPN Standing Status: Future Number of Occurrences: 1 Standing Expiration Date: 12/19/2023 Comprehensive metabolic panel These orders are set for an approximate date - they can be drawn up to 3 months prior to the Expected Date on this Req. Please send results to: Modesta Daley MD - [address] [facility] [address] - [phone] And if not done at a [facility], please send to: [address], [address] Patient Name: Melanie Bidr 1955 Order Created by : Mary Munoz LPN Standing Status: Future Number of Occurrences: 1 Standing Expiration Date: 12/19/2023 CBC These orders are set for an approximate date - they can be drawn up to 3 months prior to the Expected Date on this Req. Please send results to: Modesta Daley MD - [address] [facility] [address] - [phone] And if not done at a [facility], please send to: [address], [address] Patient Name: Melanie Bird 1955 Order Created by : Mary Munoz LPN Standing Status: Future Number of Occurrences: 1 Standing Expiration Date: 12/19/2023 Medications ordered during this encounter: Outpatient Encounter Medications as of 12/18/2022 Medication Sig Dispense Refill acyclovir (Zovirax) 400 MG tablet 400 mg at noon and 400 mg in the evening. alosetron (Lotronex) 1 MG tablet 1 mg at noon and 1 mg in the evening. ascorbic acid (Vitamin C) 500 MG tablet Take 500 mg by mouth in the morning. atorvastatin (Lipitor) 20 MG tablet 20 mg before bedtime. [place] 6 MG tablet 12 mg at noon and 12 mg in the evening. CALCIUM CITRATE PO Take 500 mg by mouth in the morning and 500 mg at noon and 500 mg before bedtime. cholecalciferol (Vitamin D-3) 50 MCG (2000 UT) capsule Take 2,000 Units by mouth in the morning. cloNIDine (Catapres) 0.1 MG tablet Take 1 tablet by mouth in the morning. Cyanocobalamin [address] 1 Dose under the tongue. dapagliflozin (Farxiga) 5 MG Take 1 tablet by mouth daily (with breakfast). fexofenadine (Seferino) 180 MG tablet Take 180 mg by mouth in the morning. gabapentin (Neurontin) 300 MG capsule 900 mg before bedtime. gabapentin (Neurontin) 600 MG tablet 1,800 mg Nightly. insulin glargine (Toujeo SoloStar) 300 UNIT/ML injection Inject 16 Units under the skin. nystatin (Mycostatin) 210735 UNIT/GM powder Apply 1 application topically 2 times daily. Apply topically to affected area two times daily. 60 g 2 oxygen (O2) gas Inhale 2 L/min Nightly. via nasal canula Ozempic, 2 MG/DOSE, 8 MG/3ML solution pen-injector 1 (one) time per week. rOPINIRole (Requip) 0.5 MG tablet 0.5 mg at noon and 0.5 mg in the evening. sertraline (Zoloft) 50 MG tablet 50 mg before bedtime. traZODone (Desyrel) 50 MG tablet 50 mg Nightly. zinc 25 MG tablet Take 25 mg by mouth every other day. zolpidem (Ambien) 5 MG tablet 5 mg Nightly. [DISCONTINUED] metFORMIN XR (Glucophage-XR) 500 MG 24 hr tablet 500 mg before bedtime. No facility-administered encounter medications on file as of 12/18/2022. Visit Diagnoses: 1. Deficiency of multiple nutrient elements 2. History of gastric bypass 3. Vitamin deficiency 4. Intestinal malabsorption, unspecified type Current Medications: Patient's Medications New Prescriptions No medications on file Previous Medications ACYCLOVIR (ZOVIRAX) 400 MG TABLET 400 mg at noon and 400 mg in the evening. ALOSETRON (LOTRONEX) 1 MG TABLET 1 mg at noon and 1 mg in the evening. ASCORBIC ACID (VITAMIN C) 500 MG TABLET Take 500 mg by mouth in the morning. ATORVASTATIN (LIPITOR) 20 MG TABLET 20 mg before bedtime. AUSTEDO 6 MG TABLET 12 mg at noon and 12 mg in the evening. CALCIUM CITRATE PO Take 500 mg by mouth in the morning and 500 mg at noon and 500 mg before bedtime. CHOLECALCIFEROL (VITAMIN D-3) 50 MCG (2000 UT) CAPSULE Take 2,000 Units by mouth in the morning. CLONIDINE (CATAPRES) 0.1 MG TABLET Take 1 tablet by mouth in the morning. CYANOCOBALAMIN [address] 1 Dose under the tongue. DAPAGLIFLOZIN (FARXIGA) 5 MG Take 1 tablet by mouth daily (with breakfast). FEXOFENADINE (SEFERINO) 180 MG TABLET Take 180 mg by mouth in the morning. GABAPENTIN (NEURONTIN) 300 MG CAPSULE 900 mg before bedtime. GABAPENTIN (NEURONTIN) 600 MG TABLET 1,800 mg Nightly. INSULIN GLARGINE (TOUJEO SOLOSTAR) 300 UNIT/ML INJECTION Inject 16 Units under the skin. NYSTATIN (MYCOSTATIN) 721959 UNIT/GM POWDER Apply 1 application topically 2 times daily. Apply topically to affected area two times daily. OXYGEN (O2) GAS Inhale 2 L/min Nightly. via nasal canula OZEMPIC, 2 MG/DOSE, 8 MG/3ML SOLUTION PEN-INJECTOR 1 (one) time per week. ROPINIROLE (REQUIP) 0.5 MG TABLET 0.5 mg at noon and 0.5 mg in the evening. SERTRALINE (ZOLOFT) 50 MG TABLET 50 mg before bedtime. TRAZODONE (DESYREL) 50 MG TABLET 50 mg Nightly. ZINC 25 MG TABLET Take 25 mg by mouth every other day. ZOLPIDEM (AMBIEN) 5 MG TABLET 5 mg Nightly. Modified Medications No medications on file Discontinued Medications METFORMIN XR (GLUCOPHAGE-XR) 500 MG 24 HR TABLET 500 mg before bedtime. I spent a total of 30 minutes on the day of the visit discussing/counseling the patient regarding the post operative management listed below. 1. Adherence to nutrient-dense foods,containing sufficient amounts of lean proteins and fibers. Fluid 30 minutes before or after meals. 1 cup is the maximum meal size. 2.Food intolerance (vomiting and regurgitation,GERD, diarrhea, dumping snd and hypoglycemia) discussed 3.Micronutrient supplementation discussed 4. Physical activity - aerobic physical activity 150-300 min/wk and strength training 2-3 times per wk. 5. Counseling on no nicotine, NSAIDs, excessive caffeine and alcohol after surgery 6.DM Is associated with obesity and weight loss/ weight maintenance is discussed as a treatment option for DM 7. Weight maintenance after bariatric surgery discussed 8. Weight regain prevention after bariatric surgery discussed 9. Elevated zinc stop additional zinc 10. Low protein add protein shake or bar daily discuss options 11. 3 month recheck for zinc and protein The patient was seen and a full chart review was performed.Clinical documentation is updated and completed. documented in this encounter [facility] 12-16-2022 Telephone encounter Note Called patient to discuss abnormal labs, no answer, left voicemail for patient to call back. [facility] 12-15-2022 Telephone encounter Note Lab: (12/11/22) Zinc 132 (H) [facility] Work Phone: 12-15-2022 Telephone encounter Note Protein: 6.0 (L) ALT/AST [facility] 12-10-2022 Miscellaneous Notes Patient has been identified by name and date of : Pharmacy phones for refill(s): Requested Prescriptions Pending Prescriptions Disp Refills gabapentin (NEURONTIN) 600 mg tablet 90 tablet 5 Sig: Take 3 tablets by mouth daily at bedtime for 180 days. gabapentin (NEURONTIN) 300 mg capsule 90 capsule 5 Sig: Take 3 capsules by mouth daily at lunch Date of last office visit in primary care: 10/12/2022 Date of next office visit in primary care: 01/13/2023 Last 2 Encounter Wt Readings: Date: Wt: 10/12/2022 84.4 kg (186 lb) 09/14/2022 87.5 kg (193 lb) Previous labs/tests for medication: Not applicable Please advise. Thank you. Divina Alcantara LPN. documented in this encounter [facility] 12-07-2022 Miscellaneous Notes Date of last office: 10/12/2022 Date of next office visit: 01/13/2023 Requested Prescriptions Pending Prescriptions Disp Refills polyethylene glycol 3350 17 gram/dose powder 238 g 1 Sig: Take 17 g by mouth two times a day as needed for constipation. Drink a mix of 1 scoop in 8oz of water/beverage once daily as needed for constipation. Date of Last Labs: 10/06/2022 Please advise. Thank you. Ameena Hodge RN. documented in this encounter [facility] 12-03-2022 Miscellaneous Notes Telephoned the patient regarding missed appt. Left a message. Telephoned the patient regarding missed appt. Left a message. Primary Care Pharmacy Rescheduling Outreach Call center, please contact patient and reschedule telephone visit for Diabetes management within ~4 week(s). (Visit length: 30 minutes) Thank you, Donis Harris RPh 12/02/2022 9:28 AM documented in this encounter [facility] 11-16-2022 Miscellaneous Notes Patient notified. Lab work and US faxed to Dr Villagran office. Result note placed this morning in regards to results. Thank you Inna Small APRN.CNP ----- Message from Inna Small APRN.CNP sent at 11/16/2022 7:50 AM EDT ----- Please let patient know she does have some fatty liver but recent study was not able to pinpoint how much of your liver is affected. Low fat diet, exercise, and weight loss can improve this. I know you see Dr. Villagran so I am going to send these results along with your US and recent lab work so you can follow further with him if needed. Please fax all results. Thank you Inna Small 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 Pt is calling about testing done on 11/13. Pt would like the provider to review the results. Davina Murray LPN documented in this encounter [facility] 11-13-2022 History of Presen t illness Narrative Patient fasting for 3 hours:Yes Fibroscan was performed on November 13, 2022, by Dominique Valles RN and results are interpreted by Zayda Love APRN.CNP Diagnosis: Fatty liver Please refer to get images report for individual readings Number of readings: 10 IQR %: 14% E (kpa): 6.7 CAP: 257 Impression The reading was adequate. FS=6.7 kPA. The CAP score is 257 and corresponds to steatosis grade of S1. This reading corresponds: A 97% chance of stage 0-2 fibrosis A 3% chance of stage 3-4 fibrosis (advanced fibrosis) A <1% chance of stage 4 fibrosis (cirrhosis).A kPa >20 indicates a high likelihood of stage 4 fibrosis/cirrhosis, consider further testing to confirm. Zayda Love, 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 NAFLD Fibroscan Fibrosis Risk <7 kPA = F0-F2 97%, F3+F4 3%, F4 <1% <10 kPA = F0-F2 91%, F3+F4 9%, F4 1.3% 10-15 kPA = F0-F2 56%, F3+F4 43%, F4 14% >15 kPA = F0-F2 26%, F3+F4 74%, F4 46% Grade CAP value up to 237 dB/M corresponds to S0 (< 10 % Fat) CAP value between (238 - 258 dB/M) corresponds to S1 (>/= 11 % Fat) CAP value between (259 - 289 dB/M) corresponds to S2 (>/= 33 % Fat) CAP value > 290dB/M corresponds to S3 (>/= 67 % Fat) stage 0 ( S0:< 10 % steatosis) stage 1 (>/= S1: 11%-33% steatosis) stage 2 (>/= S2: 34%-66% steatosis) stage 3 (>/= S3: > 66% steatosis) Reference Rocael Y, Jonnathan Q, Rocael T, Adriane J, Rocael H, Sean T. Controlled attenuation parameter for assessment of hepatic steatosis grades: a diagnostic meta-analysis. Int J Clin Exp Med. 2015 Nov 15;8(10):90345-28. PMID: 65757632; PMCID: SPQ6364538. Johann Byrnes, Christie VICTORIA, Denys M, Tommy F, José Miguel J, Samuel O, Donavon F, Sandra M, Jaron G, Jackie A, Jak E, Bolivar L, Gama G, Maura A, Jc U, Vishal S, Lisa P, Salud V, de Tim V, Payam M, So LOPEZ. Refining the Baveno elastography criteria for the definition of compensated advanced chronic liver disease. J Hepatol. 2020;74(5):9235-7993. doi: 10.1016/j.jhep.2020.11.050. Ep2019Jan 23. PMID: 29122728. documented in this encounter [facility] 11-12-2022 Miscellaneous Notes Sent as requested. Inna Small APRN.SABINE Patient stated to try walphilipt Jason. Josee Weiner LPN Patient has been on ozempic for 8 months tolerating well. Is there possibly a different pharmacy we could send it to so that she doesn't have to switch again? Thank you Inna Small APRN.SABINE Pt uses Ozempic 2mg wkly, Beronica from [facility] states they are unable to get ozempic. Pt previously took trulicity 4.5mg -prior to ozempic but med was changed bc it was unavail. Trulicity is now avail & Beronica is asking if pt can be switched back? Please advise. Yissel Doll LPN documented in this encounter [facility] 10-29-2022 Miscellaneous Notes Patient notified of providers message and verbalized understanding. Encounter routed to PSR to assist patient in scheduling. Liver shows a course texture which is similar to previous studies completed in 2020. This usually means fatty liver resulting in fibrosis of the liver but difficult to evaluate extensiveness. Since her liver enzymes have been elevated, I am ordering a liver scan that identifies if and if so, how much fibrosis exists. Thank you Inna Small APRN.SABINE Patient calling asking for results of the liver ultrasound she had done last week on Wednesday. Please advise 10/23/2022 9:27 AM - Radiology, O[facility] In Impression IMPRESSION: Coarse echotexture of the liver. Status post cholecystectomy. Machine Ceramic Coater: PSCRere Transcribe Date/Time: Oct 23 2022 9:20A Dictated by : SPIKE MORILLO MD This examination was interpreted and the report reviewed and electronically signed by: SPIKE MORILLO MD on Oct 23 2022 9:25AM EST Results-Findings * * *Final Report* * * DATE OF EXAM: Oct 22 2022 8:50AM WRU 1032 - US ABD RIGHT UPPER QUADRANT / PROCEDURE REASON: Elevated liver enzymes * * * * Physician Interpretation * * * * EXAM TITLE: US ABD RIGHT UPPER QUADRANT HISTORY: Abnormal liver function catheter TECHNIQUE: Sonography of the right upper quadrant was performed. Images were obtained and stored in a permanent archive. MQ: [id number] COMPARISON: Ultrasound abdomen on 06/05/2020, CT abdomen pelvis on 03/21/2019. RESULT: Pancreas: Normal sonographic appearance in the visualized portions. Portions obscured: tail and portion of body. Liver: Echotexture: Coarse Echogenicity: Normal Surface contour: Smooth Lesions: None. Biliary: No intrahepatic biliary duct dilation. CBD: 7 mm in diameter. Gallbladder: Surgically absent. Right Kidney: Within normal limits, measuring 9.7 cm in length. Ascites: None. documented in this encounter [facility] 10-22-2022 History of Presen t illness Narrative Radiology Service Progress Note PATIENT NAME: Melanie Bird DATE OF SERVICE: October 22, 2022 TIME: 8:52 AM PATIENT IDENTITY VERIFICATION COMPLETED USING TWO (2) IDENTIFIERS: Name and Date of confirmed by patient verbally. FALL SCREENING: Has the patient had 2 falls in the last year or 1 fall with injury or currently using an Ambulatory Assistive Device (Walker, Cane, Wheelchair, Crutches, etc.)? No PATIENT GENDER DATA: Female. status: : No status: NO. PATIENT RELEVANT IMPLANT DATA REVIEWED: Not Applicable RADIOLOGY DEPARTMENT: Ultrasound PERIPHERAL IV DATA: Not applicable SIGNED BY: Lupe Galloway RDMS RVT October 22, 2022 8:52 AM documented in this encounter [facility] 10-20-2022 Miscellaneous Notes PDMP website checked and validated. All prescriptions have been APPROPRIATELY filled. No suspicious activity was identified. 10/20/2022 by Smiley Esposito 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 [facility] phones requesting refills as follows: Requested Prescriptions Pending Prescriptions Disp Refills zolpidem (AMBIEN) 5 mg tablet 30 tablet 2 Sig: Take 1 tablet by mouth at bedtime as needed for sedation for up to 90 days. TAKE 1 TABLET BY MOUTH AT BEDTIME NEEDED FOR SEDATION QIAN: 10/12/22 NOV: 01/13/23 Last Refill: 08/13/22 #30 2 refills Yissel Doll LPN documented in this encounter [facility] 10-12-2022 History of Presen t illness Narrative CC: Patient presents with: Recheck: DM follow up HPI Melanie Bird is a 67 year old female who presents today for routine follow up RLS/tardive dyskinesia/Parkinson: Starting to look into assisted living options as her parkinsons tremors are worsening especially causing difficulty with cooking and eating. Has appointment with Neurology on . Has been taking her ropinorole, and gabapentin as ordered but symptoms still worsening. DIABETES MELLITUS: Ms. Bird denies excessive thirst or increased frequency of urination, chest pain or dyspnea , numbness, tingling or pain in extremities, new or unusual visual symptoms, low sugar/hypoglycemic reactions, weight loss/gain, lightheadedness/dizziness. Follows a diabetic diet most of the time. She is compliant with medication(s) and is tolerating med(s) without any side effects and regularly sees clinical pharmacy. She reports checking her glucose on a continuous schedule with average glucose of 153. Patient's last HgA1C was Hemoglobin A1C (%) Date Value 10/06/2022 6.8 03/03/2022 6.8 11/15/2020 7.0 09/02/2020 7.2 Hemoglobin A1C (POCT) (%) Date Value 06/11/2022 8.0 12/11/2021 6.7 ) Last Ophthalmology exam was within the past 3 months Depression: well controlled with current treatment Sleep: is described as normal with ambien Alcohol use: does not drink any alcohol Drug use: No Appetite: good Suicidal Thoughts: No suicidal ideation, intent or plan Support: Limited to friends who live in other states but is joining a new evangelical in hopes to rebuild her support system. Low oxygen with sleeping: Uses Oxygen at 2L at night time as ordered by pulmonology. . Elevated Liver enzymes: Has chronic diarrhea she sees Dr. Vlilagran for but denies any change to this. Denies abdominal pain, nausea, vomiting or recent illness. REVIEW OF SYSTEMS General: no fevers, no chills, no night sweats, no recurrent infections, no change in appetite, no change in energy, and no significant changes in weight Respiratory: no cough, no wheezing, no shortness of breath, no hemoptysis Cardiovascular: no chest pain, no chest pressure, no palpitations, and no swelling GI: See HPI Endocrine: no polyuria, no polyphagia, and no polydipsia Neurologic: No headache, weakness, memory loss, syncope. PAST MEDICAL HISTORY Diagnosis Date Depression Diabetes mellitus type 2, uncontrolled High cholesterol History of colon polyps History of gallstones IBS (irritable bowel syndrome) Obesity 04/25/2013 BMI 48.43 ARIANA (obstructive sleep apnea) 03/06/2013 Parkinson disease (HCC) PAST SURGICAL HISTORY Procedure Laterality Date ANAL SPHINCTEROPLASTY SPHINCTEROPLASTY ANAL W/ IMPLANT ARTIFICIAL SPHINCTER ADULT BARIATRIC SURGERY HX 05/28/2021 CATARACT EXTRACTION HX Bilateral 08/2012 COLONOSCOPY GEN ANES 04/2019 INCISE FINGER TENDON SHEATH 12/20/2012 Left 3rd trigger finger release MANIPULATION KNEE JOINT UNDER GENERAL ANESTHESIA Left 01/23/2022 Left knee manipulation under anesthesia PAST SURGICAL HISTORY OF 06/2012 Interstim PAST SURGICAL HISTORY OF Right trigger thumb REMOVAL GALLBLADDER 2001 REMOVAL OF OVARY/TUBE(S) Bilateral 07/31/2022 Laparoscopic BSO and Myomectomy at [facility]- Dr. Delacruz TOTAL KNEE REPLACEMENT Left 10/29/2021 Left robotic total knee replacement ALLERGIES Seroquel [Quetiapine Fumarate] and Victoza [Liraglutide] MEDICATIONS fexofenadine (SEFERINO) 180 mg tablet^Take 1 tablet by mouth once daily.^Disp: 28 tablet^Rfl: 3 sertraline (ZOLOFT) 50 mg tablet^Take 1 tablet by mouth once daily.^Disp: 30 tablet^Rfl: 5 Miscellaneous Medical Supply^D/C CPAP - last sleep study not showing ARIANA. Confirmed with pulmonary as well.^Disp: 1 Each^Rfl: 0 semaglutide (OZEMPIC) 2 mg/dose (8 mg/3 mL) pen injector^Inject 2 mg subcutaneously one time a week.^Disp: 3 mL^Rfl: 3 flash glucose scanning reader ([employer] IZABELLA 2 READER)^1 Each four times daily. checking blood sugars DX E11.9 Insulin Yes^Disp: 1 Each^Rfl: 0 insulin glargine U-300 conc (TOUJEO SOLOSTAR U-300 INSULIN) 300 unit/mL (1.5 mL)^Inject 18 Units subcutaneously every morning.^Disp: ^Rfl: zolpidem (AMBIEN) 5 mg tablet^Take 1 tablet by mouth at bedtime as needed for sedation for up to 90 days. TAKE 1 TABLET BY MOUTH AT BEDTIME NEEDED FOR SEDATION Do not start before August 13, 2022.^Disp: 30 tablet^Rfl: 2 gabapentin (NEURONTIN) 600 mg tablet^Take 3 tablets by mouth daily at bedtime for 180 days.^Disp: 90 tablet^Rfl: 5 gabapentin (NEURONTIN) 300 mg capsule^Take 3 capsules by mouth daily at lunch^Disp: 90 capsule^Rfl: 5 pen needle, diabetic (NOVOFINE PLUS) 32 gauge x 1/6^Use to inject insulin once daily^Disp: 100 Each^Rfl: 1 acyclovir (ZOVIRAX) 400 mg tablet^Take 1 tablet by mouth twice daily.^Disp: 60 tablet^Rfl: 11 rOPINIRole (REQUIP) 0.5 mg tablet^TAKE 1 TABLET BY MOUTH TWICE A DAY (NOON AND BEDTIME)^Disp: 60 tablet^Rfl: 11 Cholecalciferol, Vitamin D3, (VITAMIN D-3) 50 mcg (2,000 unit) cap^Take 1 capsule by mouth once daily.^Disp: 30 capsule^Rfl: 11 ascorbic acid, vitamin C, (VITAMIN C) 500 mg tablet^Take 1 tablet by mouth once daily.^Disp: 30 tablet^Rfl: 11 magnesium oxide (MAG-OX) 400 mg (241.3 mg magnesium) tablet^Take 2 tablets by mouth once daily.^Disp: 60 tablet^Rfl: 11 atorvastatin (LIPITOR) 20 mg tablet^Take 1 tablet by mouth once daily.^Disp: 28 tablet^Rfl: 11 flash glucose sensor (FREESTYLE IZABELLA 2 SENSOR) kit^Use to monitor blood sugars 4 times daily^Disp: 6 Each^Rfl: 3 Surgical Lubricant Jelly gel^For MRI Female Pelvis, MRI department to provide. Administer intra-vaginal Surgilube immediately prior the MRI procedure (total amount to patient toleranace).^Disp: 5 g^Rfl: 1 (Patient not taking: Reported on 09/14/2022) OXYGEN, HOME THERAPY,^2 L/min by Mask route daily at bedtime. CPAP 2L at night^Disp: ^Rfl: (Patient not taking: Reported on 09/14/2022) cloNIDine HCl (CATAPRES) 0.1 mg tablet^Take 1 tablet by mouth once daily.^Disp: ^Rfl: omeprazole (PRILOSEC) 20 mg capsule^Take 20 mg by mouth once daily.^Disp: ^Rfl: AUSTEDO 6 mg tab^Take 6 mg by mouth twice daily.^Disp: ^Rfl: Lancets lancets^Test Four times a day. Insulin Dep? Yes E11.9 DM 2^Disp: 200 Each^Rfl: 4 blood sugar diagnostic (BLOOD GLUCOSE TEST) test strip^Test Four times a day. Insulin Dep? Yes E11.9 DM 2^Disp: 300 Strip^Rfl: 3 calcium carbonate 600 mg-cholecalciferol 200 units (CALCARB 600 WITH VITAMIN D) 600 mg(1,500mg) -200 unit tab^Take 1 tablet by mouth twice daily.^Disp: 60 tablet^Rfl: 5 wheat dextrin (BENEFIBER SUGAR FREE, DEXTRIN,) 3 gram/4 gram powd^1/2 tablespoon per day x2 weeks. Then increase by 1/2 tablespoon every 2 weeks until you are taking 3 tablespoons per day in divided doses.^Disp: 248 g^Rfl: 3 polyethylene glycol 3350 (MIRALAX, GLYCOLAX) 17 gram/dose powder^Take 17 g by mouth twice daily. Drink a mix of 1 scoop in 8oz of water/beverage once daily as needed for constipation.^Disp: 1 Bottle^Rfl: 2 docusate sodium (COLACE) 100 mg capsule^Take 1 capsule by mouth twice daily as needed for Constipation.^Disp: 60 capsule^Rfl: 1 COMPOUNDED PRESCRIPTION^PORTABLE OXYGEN TANKS FOR USE IN BACK PACK USES 3 Lpm WHEN ON PORTABLE TANK to use with exertion DX R79.81^Disp: 4 Each^Rfl: 11 (Patient not taking: Reported on 09/14/2022) COMPOUNDED PRESCRIPTION^EMERGENCY BACKUP OXYGEN TANK FOR WHEN PATIENT LOSES ELECTRICITY DX R79.81^Disp: 1 Each^Rfl: 11 (Patient not taking: Reported on 09/14/2022) COMPOUNDED PRESCRIPTION^Oxygen supplies dx: R79.81 R06.02^Disp: 1 Each^Rfl: 99 COMPOUNDED PRESCRIPTION^CPAP supplies Dx: G47.33^Disp: 1 Box^Rfl: 99 COMPOUNDED PRESCRIPTION^Home Oxygen, 2 litres with cpap machine^Disp: 1 Each^Rfl: 0 (Patient not taking: Reported on 09/14/2022) blood sugar diagnostic (ONETOUCH ULTRA TEST) test strip^Test blood sugar(s) 4 times daily. Dx: Type 2 DM - Uncontrolled E11.65 Insulin: Yes^Disp: 200 Strip^Rfl: 11 Lancets (ACCU-CHEK FASTCLIX) lancets^With Accuchek fastclix lancing device. Check sugars 4x/day Dx: e11.65 Insulin: Yes^Disp: 200 Each^Rfl: 11 FAMILY HISTORY Problem Relation Age of Onset Diabetes Mother Heart Mother Diabetes Father Heart Father Colon Cancer Sister Asthma No Family History Social History Tobacco Use Smoking status: Former Packs/day: 0.10 Years: 3.00 Additional pack years: 0.00 Total pack years: 0.30 Types: Cigarettes Quit date: 04/25/1988 Years since quittin.4 Smokeless tobacco: Never Tobacco comments: No smoking in childhood home. Roomate of last 10 years smoked while living with patient. Vaping Use Vaping Use: Never used Substance Use Topics Alcohol use: No Drug use: No PHYSICAL EXAM BP 114/62 Pulse 83 Resp 16 Wt 84.4 kg (186 lb) LMP 04/10/2012 (Approximate) SpO2 95% BMI 31.93 kg/m General Appearance: well appearing, in no acute distress, alert Pysch: mood and affect broad and appropriate Skin: Skin color, texture, turgor normal for age; Eyes: conjunctiva pink and moist, no icterus, sclera white, non-injected Lungs: Lungs clear to auscultation. No wheezing, rhonchi, rales. Heart: RRR without murmur, gallop, or rubs. No ectopy Abdomen: Abdomen soft, non-tender. Bowel sounds normal. No masses, organomegaly Health maintenance reviewed with patient: COVID-19 VACCINE(6 - Moderna series) due on 04/15/2022 DIABETIC FOOT EXAM due on 11/09/2022 BONE DENSITY due on 06/12/2023 INFLUENZA(1) due on 10/16/2022 HBA1C due on 04/08/2023 MAMMOGRAM due on 04/16/2023 DILATED RETINAL EXAM due on 07/22/2023 ANNUAL PCP TEAM CHRONIC DISEASE VISIT due on 07/28/2023 LDL CHOLESTEROL due on 09/05/2023 URINE ALBUMIN:CREATININE RATIO due on 10/07/2023 COLORECTAL CANCER SCREENING due on 09/19/2024 PNEUMOCOCCAL: 67+(3 - PPSV23 or PCV20) due on 09/21/2024 DTAP,TDAP,TD(5 - Td or Tdap) due on 10/03/2030 ADVANCE DIRECTIVE DISCUSSION Completed DEPRESSION ASSESSMENT Completed HEPATITIS C SCREENING Completed SHINGRIX VACCINE Completed PAP TESTING Discontinued HIV SCREENING Discontinued DATA REVIEWED: Most recent labs ASSESSMENT/PLAN: 1. Diabetes mellitus type 2 (HCC) - ICD9: 250.00, ICD10: E11.9 (primary diagnosis) - Controlled - Continue current medications - Blood glucose monitoring on a once daily schedule - Counseled on healthy diet and regular exercise - Discussed need for and benefit of weight loss. BMI 31.93 kg/(m^2) 2. Tardive dyskinesia - ICD9: 333.85, ICD10: G24.01 - continue with current medications - continue with plans to look into assisted living and upcoming neurology appointment - PARKING FOR HANDICAPPED 3. RLS (restless legs syndrome) - ICD9: 333.94, ICD10: G25.81 As above 4. Parkinson's disease (HCC) - ICD9: 332.0, ICD10: G20 See #2 - discussed available option like build up silverware to help with eating. Patient to discuss further with neurology. - PARKING FOR HANDICAPPED 5. Elevated liver enzymes - ICD9: 790.5, ICD10: R74.8 - US ABD RIGHT UPPER QUADRANT 6. Irritable bowel syndrome with diarrhea - ICD9: 564.1, ICD10: K58.0 - no change - continue with recommendations by GI 7. Depression with anxiety - ICD9: 300.4, ICD10: F41.8 Controlled at this time - Reviewed concept of neurochemical imbalance wth depression/anxiety, treatment options and benefits of counseling in combination with medication. Also reviewed benefits of sleep hygeine, diet and exercise - Instructed patient to contact office or [id number] after-hours promptly should condition worsen or any new symptoms appear. - Counseling Center [facility] and after hours crisis line 8. Sleep-disordered breathing - ICD9: 780.59, ICD10: G47.30 - controlled with O2 at night - continue with recommendations by pulmonology and sleep medicine. Prescription instructions reviewed with patient as applicable. Potential red flag symptoms discussed with the patient. Reviewed appropriate action plan to take if red flag symptoms occur. Patient agreeable to treatment plan. Inna Small APRN.CNP documented in this encounter [facility] 09-30-2022 Miscellaneous Notes Patient notified. Addended by: INNA SMALL on: 09/30/2022 01:35 PM Modules accepted: Orders Kailey Please let patient know I am going to recheck her liver enzymes as they were elevated last month and were not noticed as they were ordered by a different provider. Is she following up with this provider for her elevated liver enzymes? If no further testing has been done, I am also ordering a hepatitis panel. These do not need to be fasting and I added an A1c also. Thank you Inna Small 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 Patient has HOURLY SHIFT MANAGER visit 10/12, she is due for A1c but wondering if other labs are needed prior to visit. If no other blood work is needed she prefers having POCT A1c done is office vs blood drawn. Inna, would you like Melanie to have any blood work done prior to your visit or is it ok to check POC A1c in office at your upcoming visit on 10/12? Thanks, Donis Harris, PharmD, BCACP Primary Care Clinical Pharmacist documented in this encounter [facility] 09-22-2022 Miscellaneous Notes Patient has been identified by name and date of : Yes, Radha Spencer RN Date 09/22/2022 Time 11:58 am Pharmacy phones for refill(s): Requested Prescriptions Pending Prescriptions Disp Refills fexofenadine (SEFERINO) 180 mg tablet 28 tablet 3 Sig: Take 1 tablet by mouth once daily. sertraline (ZOLOFT) 50 mg tablet 30 tablet 5 Sig: Take 1 tablet by mouth once daily. Date of last office visit with pcp: 07/08/2022 Future appt: 10/12/2022 Last 2 Encounter Wt Readings: Date: Wt: 09/14/2022 87.5 kg (193 lb) 09/14/2022 87.5 kg (193 lb) Previous labs/tests for medication: Blood Pressure: BUN (mg/dL) Date Value 08/25/2022 9 11/15/2020 18 Sodium (mmol/L) Date Value 08/25/2022 142 11/15/2020 140 Last 1 Encounter BP Readings: Date: BP: 09/14/2022 110/58 Liver Function: ALT (U/L) Date Value 08/25/2022 100 11/15/2020 17 AST (U/L) Date Value 08/25/2022 79 11/15/2020 18 Please advise. Thank you. Radha Spencer RN documented in this encounter [facility] 09-17-2022 Miscellaneous Notes Letter was sent to [facility] by [place] office per patient's request. [facility] called and informed us that they received a request for [employer] D/C CPAP today for the patient. However, they do not deal with CPAP machine and wanted to let us know the order was sent there in error so it gets sent to the correct place. Thank you! Ruba Lujan documented in this encounter [facility] 09-15-2022 Miscellaneous Notes Patient has not followed up with us since prior to the sleep study mentioned. Will confirm with Pulmonary that they too are ok with d/c of PAP therapy. Tony López MD See TE dated 02/28/22. Lupe Jefferson LPN Patient calls and states that she was told by provider in February that she no longer needs to use a CPAP, but that she needed to just use nocturnal oxygen. Patient is asking if provider can write a letter to [employer] that states that she no longer needs a CPAP at night but she does need oxygen. If agreeable please fax letter to [employer]. Please review and advise, Ameena Hodge RN documented in this encounter [facility] 09-14-2022 Miscellaneous Notes Last Office Visit: 07/08/2022 Future Office Visit: 10/12/2022 Requested Prescriptions Pending Prescriptions Disp Refills semaglutide (OZEMPIC) 2 mg/dose (8 mg/3 mL) pen injector 3 mL 3 Sig: Inject 2 mg subcutaneously one time a week. Date of Last Labs: 08/25/2022 documented in this encounter [facility] 09-14-2022 History of Presen t illness Narrative Images from the original note were not included. . [facility] Note Patient name: Melanie Bird PCP: Modesta Daley MD Referring: Tony López MD CC: Nocturnal hypoxemia HPI: Melanie Bird 67 year old female former minimal smoker with PMH significant for obesity s/p gastric bypass, DM2, Parkinson's, ARIANA originally seen for pre-op evaluation for restrictive lung disease. Restriction due to body habitus and not significant parenchymal issues. Was referred by Sleep Medicine for nocturnal desaturations but no apnea on an updated PSG. She has persistent snoring and hypoxemia associated with respiratory events. Prescribed nocturnal oxygen. Prior to her gastric bypass, she required continuous oxygen. Echocardiogram without evidence of pulmonary hypertension and PFTs did not show any evidence of obstructive lung disease. PSG showed respiratory disturbances associated with desaturations despite wearing oxygen. She has lost a considerable amount of weight since her gastric bypass. Updated PFTs are normal. She has been wearing her oxygen at night but not her CPAP since last PSG did not show significant obstructive apnea. She is feeling well. No respiratory symptoms, ie, cough, chest pain, SOB, wheezing. DME: [employer] DATA: PFT: Review of PFT shows not obstruction or restriction. Diffusion is normal Imaging / Diagnostic Studies: PSG 01/2022: Performed using 1 L of oxygen Total 4 respiratory disturbances 0 apnea 4 hypopneas. These respiratory events were associated with desaturations down to 85% Time with saturation < 88% 82.3 minutes PAST MEDICAL HISTORY Diagnosis Date Depression Diabetes mellitus type 2, uncontrolled High cholesterol History of colon polyps History of gallstones IBS (irritable bowel syndrome) Obesity 04/25/2013 BMI 48.43 ARIANA (obstructive sleep apnea) 03/06/2013 Parkinson disease (HCC) ALLERGIES Allergen Reactions Seroquel [Quetiapin* Mental Status Change Victoza [Liraglutid* GI Upset flash glucose scanning reader ([employer]Space IZABELLA 2 READER)^1 Each four times daily. checking blood sugars DX E11.9 Insulin Yes^Disp: 1 Each^Rfl: 0 insulin glargine U-300 conc (TOUJEO SOLOSTAR U-300 INSULIN) 300 unit/mL (1.5 mL)^Inject 18 Units subcutaneously every morning.^Disp: ^Rfl: zolpidem (AMBIEN) 5 mg tablet^Take 1 tablet by mouth at bedtime as needed for sedation for up to 90 days. TAKE 1 TABLET BY MOUTH AT BEDTIME NEEDED FOR SEDATION Do not start before August 13, 2022.^Disp: 30 tablet^Rfl: 2 gabapentin (NEURONTIN) 600 mg tablet^Take 3 tablets by mouth daily at bedtime for 180 days.^Disp: 90 tablet^Rfl: 5 gabapentin (NEURONTIN) 300 mg capsule^Take 3 capsules by mouth daily at lunch^Disp: 90 capsule^Rfl: 5 fexofenadine (SEFERINO) 180 mg tablet^Take 1 tablet by mouth once daily.^Disp: 28 tablet^Rfl: 3 pen needle, diabetic (NOVOFINE PLUS) 32 gauge x 1/6^Use to inject insulin once daily^Disp: 100 Each^Rfl: 1 acyclovir (ZOVIRAX) 400 mg tablet^Take 1 tablet by mouth twice daily.^Disp: 60 tablet^Rfl: 11 rOPINIRole (REQUIP) 0.5 mg tablet^TAKE 1 TABLET BY MOUTH TWICE A DAY (NOON AND BEDTIME)^Disp: 60 tablet^Rfl: 11 Cholecalciferol, Vitamin D3, (VITAMIN D-3) 50 mcg (2,000 unit) cap^Take 1 capsule by mouth once daily.^Disp: 30 capsule^Rfl: 11 semaglutide (OZEMPIC) 2 mg/dose (8 mg/3 mL) pen injector^Inject 2 mg subcutaneously one time a week.^Disp: 3 mL^Rfl: 3 sertraline (ZOLOFT) 50 mg tablet^Take 1 tablet by mouth once daily.^Disp: 30 tablet^Rfl: 5 ascorbic acid, vitamin C, (VITAMIN C) 500 mg tablet^Take 1 tablet by mouth once daily.^Disp: 30 tablet^Rfl: 11 magnesium oxide (MAG-OX) 400 mg (241.3 mg magnesium) tablet^Take 2 tablets by mouth once daily.^Disp: 60 tablet^Rfl: 11 atorvastatin (LIPITOR) 20 mg tablet^Take 1 tablet by mouth once daily.^Disp: 28 tablet^Rfl: 11 flash glucose sensor (FREESTYLE IZABELLA 2 SENSOR) kit^Use to monitor blood sugars 4 times daily^Disp: 6 Each^Rfl: 3 cloNIDine HCl (CATAPRES) 0.1 mg tablet^Take 1 tablet by mouth once daily.^Disp: ^Rfl: omeprazole (PRILOSEC) 20 mg capsule^Take 20 mg by mouth once daily.^Disp: ^Rfl: AUSTEDO 6 mg tab^Take 6 mg by mouth twice daily.^Disp: ^Rfl: Lancets lancets^Test Four times a day. Insulin Dep? Yes E11.9 DM 2^Disp: 200 Each^Rfl: 4 blood sugar diagnostic (BLOOD GLUCOSE TEST) test strip^Test Four times a day. Insulin Dep? Yes E11.9 DM 2^Disp: 300 Strip^Rfl: 3 calcium carbonate 600 mg-cholecalciferol 200 units (CALCARB 600 WITH VITAMIN D) 600 mg(1,500mg) -200 unit tab^Take 1 tablet by mouth twice daily.^Disp: 60 tablet^Rfl: 5 wheat dextrin (BENEFIBER SUGAR FREE, DEXTRIN,) 3 gram/4 gram powd^1/2 tablespoon per day x2 weeks. Then increase by 1/2 tablespoon every 2 weeks until you are taking 3 tablespoons per day in divided doses.^Disp: 248 g^Rfl: 3 polyethylene glycol 3350 (MIRALAX, GLYCOLAX) 17 gram/dose powder^Take 17 g by mouth twice daily. Drink a mix of 1 scoop in 8oz of water/beverage once daily as needed for constipation.^Disp: 1 Bottle^Rfl: 2 docusate sodium (COLACE) 100 mg capsule^Take 1 capsule by mouth twice daily as needed for Constipation.^Disp: 60 capsule^Rfl: 1 COMPOUNDED PRESCRIPTION^Oxygen supplies dx: R79.81 R06.02^Disp: 1 Each^Rfl: 99 COMPOUNDED PRESCRIPTION^CPAP supplies Dx: G47.33^Disp: 1 Box^Rfl: 99 blood sugar diagnostic (ONETOUCH ULTRA TEST) test strip^Test blood sugar(s) 4 times daily. Dx: Type 2 DM - Uncontrolled E11.65 Insulin: Yes^Disp: 200 Strip^Rfl: 11 Lancets (ACCU-CHEK FASTCLIX) lancets^With Accuchek fastclix lancing device. Check sugars 4x/day Dx: e11.65 Insulin: Yes^Disp: 200 Each^Rfl: 11 Surgical Lubricant Jelly gel^For MRI Female Pelvis, MRI department to provide. Administer intra-vaginal Surgilube immediately prior the MRI procedure (total amount to patient toleranace).^Disp: 5 g^Rfl: 1 (Patient not taking: Reported on 09/14/2022) OXYGEN, HOME THERAPY,^2 L/min by Mask route daily at bedtime. CPAP 2L at night^Disp: ^Rfl: (Patient not taking: Reported on 09/14/2022) COMPOUNDED PRESCRIPTION^PORTABLE OXYGEN TANKS FOR USE IN BACK PACK USES 3 Lpm WHEN ON PORTABLE TANK to use with exertion DX R79.81^Disp: 4 Each^Rfl: 11 (Patient not taking: Reported on 09/14/2022) COMPOUNDED PRESCRIPTION^EMERGENCY BACKUP OXYGEN TANK FOR WHEN PATIENT LOSES ELECTRICITY DX R79.81^Disp: 1 Each^Rfl: 11 (Patient not taking: Reported on 09/14/2022) COMPOUNDED PRESCRIPTION^Home Oxygen, 2 litres with cpap machine^Disp: 1 Each^Rfl: 0 (Patient not taking: Reported on 09/14/2022) Social History Tobacco Use Smoking status: Former Packs/day: 0.10 Years: 3.00 Total pack years: 0.30 Types: Cigarettes Quit date: 04/25/1988 Years since quittin.4 Smokeless tobacco: Never Tobacco comments: No smoking in childhood home. Roomate of last 10 years smoked while living with patient. Vaping Use Vaping Use: Never used Substance Use Topics Alcohol use: No Drug use: No FAMILY HISTORY Problem Relation Age of Onset Diabetes Mother Heart Mother Diabetes Father Heart Father Colon Cancer Sister Asthma No Family History PAST SURGICAL HISTORY Procedure Laterality Date ANAL SPHINCTEROPLASTY SPHINCTEROPLASTY ANAL W/ IMPLANT ARTIFICIAL SPHINCTER ADULT BARIATRIC SURGERY HX 05/28/2021 CATARACT EXTRACTION HX Bilateral 08/2012 COLONOSCOPY GEN ANES 04/2019 INCISE FINGER TENDON SHEATH 12/20/2012 Left 3rd trigger finger release MANIPULATION KNEE JOINT UNDER GENERAL ANESTHESIA Left 01/23/2022 Left knee manipulation under anesthesia PAST SURGICAL HISTORY OF 06/2012 Interstim PAST SURGICAL HISTORY OF Right trigger thumb REMOVAL GALLBLADDER 2001 REMOVAL OF OVARY/TUBE(S) Bilateral 07/31/2022 Laparoscopic BSO and Myomectomy at [facility]- Dr. Delacruz TOTAL KNEE REPLACEMENT Left 10/29/2021 Left robotic total knee replacement PMH, Social history, family history and surgical history reviewed and updated EMR REVIEW OF SYSTEMS: CONSTITUTIONAL: No fevers, chills, nightsweats, unintended weight loss HEENT: Denies epistaxis CARDIOVASCULAR: No chest pain, dyspnea, palpitations, orthopnea, PND, edema. PULM: See HPI GI: No dysphagia/odynophagia, problematic reflux NEURO: Parkinson's with tremors MUSC-SKEL: No new joint pain, swelling, or erythema. PHYSICAL EXAMINATION: BP 110/58 Pulse 68 Resp 16 Ht 5' 4 (1.63m) Wt 193 lb (87.5kg) SpO2 94% LMP 04/10/2012 BMI 33.11 kg/(m^2). General Appearance: Obese, NAD. Skin: Skin color, texture, turgor normal, no suspicious rashes or lesions. Head: Normocephalic, no masses, lesions, tenderness or abnormalities. Eyes: Sclera, conjunctiva normal. Neck: No JVD, no masses, no adenopathy. Lungs: Not labored, normal to percussion, no wheezes or crackles. Heart: RRR, no murmur. Extremities: No edema, no clubbing. Assessment/Plan: Persistent nocturnal hypoxemia -Appears to be benefiting from supplemental oxygen. No obstruction but does have sleep disorder resulting in desaturations -Continue supplemental oxygen. With continued weight loss, will need reassessment of oxygen need Sleep disordered breathing -See #1 -Can likely discontinue CPAP but this must be addressed by Dr. López 3. Parkinson's disease -No clinical evidence of chronic aspiration -Follows with neurology Shawanda May MD [facility] documented in this encounter [facility] 09-14-2022 Nurse Note Patient presents with: Shortness of Breath Pt denies SOB or CP. Pt needs letter with dx to [facility] for oxygen requirements at night. documented in this encounter [facility] 09-14-2022 History of Presen t illness Narrative PULM FUNCTION SMARTBLOCK: Provider: Shawanda May MD Assisting Tech: Enma Francisco RPFT Spirometry: 1 DLCO: 1 LV - Box: 1 documented in this encounter [facility] 08-31-2022 Miscellaneous Notes Patient calling her Miroyle Izabella reader is not working she has called and told to have new rx sent to pharmacy. Pending rx for new reader to file to [facility]. Please advise Patient has been identified by name and date of : Patient phones for refill(s): Requested Prescriptions Pending Prescriptions Disp Refills flash glucose scanning reader (ZyncdSTYLE IZABELLA 2 READER) 1 Each 0 Sig: four times daily. checking blood sugars DX E11.9 Insulin Yes Date of last office visit in primary care: 07/08/2022, has appt 10/12/2022 Last 2 Encounter Wt Readings: Date: Wt: 08/13/2022 88.7 kg (195 lb 9.6 oz) 08/13/2022 88.7 kg (195 lb 9.6 oz) Previous labs/tests for medication: Diabetes: Hemoglobin A1C (%) Date Value 03/03/2022 6.8 11/15/2020 7.0 09/02/2020 7.2 Hemoglobin A1C (POCT) (%) Date Value 06/11/2022 8.0 12/11/2021 6.7 Please advise. Thank you. Divina Alcantara LPN documented in this encounter [facility] 08-26-2022 Telephone encounter Note Sent pt MyChart message regarding low 6.0 from 08/25/22 (note albumin 3.8). No response to MyChart msg or follow up call. Sent pt letter via mail regarding lab results. Pt to call office to discuss results and recommendations. Will determine need for follow up labs, etc upon call. [facility] Phone: 08-26-2022 Miscellaneous Notes Sent pt MyChart message regarding low 6.0 from 08/25/22 (note albumin 3.8). No response to MyChart msg or follow up call. Sent pt letter via mail regarding lab results. Pt to call office to discuss results and recommendations. Will determine need for follow up labs, etc upon call. documented in this encounter [facility] 08-13-2022 History of Presen t illness Narrative SUBJECTIVE: 67 year old female presents for 2 week post-op exam. She is concerned about a firm lump behind the incision. Denies any pain. OBJECTIVE: Incision: healing Abdomen: Soft, Non-tender, and firmness noted behind incision (due to sutures) No redness or swelling Dr Benítez also exam pt PLAN: RTO for 6 week check I have reviewed and updated past medical and surgical history, medications and allergies. Kiarra Jewell APRN.CNP Medical Decision Making: Problems: Low: Acute, uncomplicated illness or injury Risk: Low: Low risk from testing/treatment Medical Decision Making Level: 3 - Low documented in this encounter [facility] 08-10-2022 History of Presen t illness Narrative Primary Care Pharmacy Visit CC (Reason for Consult): Diabetes Goal: A1c < 7% Last Collaborating Physician Visit: 07/08/22 Melanie Bird is a 67 year old female presenting for follow up visit by telephone. Patient consents to pharmacy collaborative practice agreement. . At last visit with pharmacy on 07/27/22 the following changes were made: decreased Toujeo dose HPI: Had laparoscopic bilateral salpingo-oophorectomy completed on 07/31 Since having procedure, readings have increased. Has had to adjust insulin to bring down readings Has increased insulin to 18 units daily GLYCEMIC CONTROL: SMBG's: Summary of CGM Findings: (last 14 days) 1- CGM recording is adequate for interpretation 2- Average glucose is 163 mg/dL. 12 am - 6 am: 120 mg/dL 6 am -12 pm: 155 mg/dL 12 pm - 6 pm: 211 mg/dL 6 pm - 12 am: 180 mg/dL 3- Total frequency of hypoglycemia: none 4- Nocturnal hypoglycemia was noted. 5- Hyperglycemic episodes: 34 % 6- Time in target range (70-180 mg/dL): 66 % ROS: As above. Patient denies CP, SOB, HATCH, blurred vision, dizziness or lightheadedness Patient denies nausea, vomiting, diarrhea, abdominal pain Patient denies symptoms of hypoglycemia (sweating, anxiety, palpitations, hunger, and tremor) Patient denies symptoms of hyperglycemia (polyuria, polydipsia, polyphagia) Patient denies potential medication adverse effects Past medical, family and social history reviewed and updated. MEDICATIONS: Adherence: denies missed doses ALLERGIES Allergen Reactions Seroquel [Quetiapin* Mental Status Change Victoza [Liraglutid* GI Upset Current Outpatient Medications Medication Sig Dispense Refill [START ON 08/13/2022] zolpidem (AMBIEN) 5 mg tablet Take 1 tablet by mouth at bedtime as needed for sedation for up to 90 days. TAKE 1 TABLET BY MOUTH AT BEDTIME NEEDED FOR SEDATION Do not start before August 13, 2022. 30 tablet 2 insulin glargine U-300 conc (TOUJEO SOLOSTAR U-300 INSULIN) 300 unit/mL (1.5 mL) Inject 14 Units subcutaneously every morning. gabapentin (NEURONTIN) 600 mg tablet Take 3 tablets by mouth daily at bedtime for 180 days. 90 tablet 5 gabapentin (NEURONTIN) 300 mg capsule Take 3 capsules by mouth daily at lunch 90 capsule 5 fexofenadine (SEFERINO) 180 mg tablet Take 1 tablet by mouth once daily. 28 tablet 3 pen needle, diabetic (NOVOFINE PLUS) 32 gauge x 1/6 Use to inject insulin once daily 100 Each 1 acyclovir (ZOVIRAX) 400 mg tablet Take 1 tablet by mouth twice daily. 60 tablet 11 rOPINIRole (REQUIP) 0.5 mg tablet TAKE 1 TABLET BY MOUTH TWICE A DAY (NOON AND BEDTIME) 60 tablet 11 Cholecalciferol, Vitamin D3, (VITAMIN D-3) 50 mcg (2,000 unit) cap Take 1 capsule by mouth once daily. 30 capsule 11 semaglutide (OZEMPIC) 2 mg/dose (8 mg/3 mL) pen injector Inject 2 mg subcutaneously one time a week. 3 mL 3 sertraline (ZOLOFT) 50 mg tablet Take 1 tablet by mouth once daily. 30 tablet 5 ascorbic acid, vitamin C, (VITAMIN C) 500 mg tablet Take 1 tablet by mouth once daily. 30 tablet 11 magnesium oxide (MAG-OX) 400 mg (241.3 mg magnesium) tablet Take 2 tablets by mouth once daily. 60 tablet 11 atorvastatin (LIPITOR) 20 mg tablet Take 1 tablet by mouth once daily. 28 tablet 11 flash glucose sensor (FREESTYLE IZABELLA 2 SENSOR) kit Use to monitor blood sugars 4 times daily 6 Each 3 Surgical Lubricant Jelly gel For MRI Female Pelvis, MRI department to provide. Administer intra-vaginal Surgilube immediately prior the MRI procedure (total amount to patient toleranace). 5 g 1 OXYGEN, HOME THERAPY, 2 L/min by Mask route daily at bedtime. CPAP 2L at night cloNIDine HCl (CATAPRES) 0.1 mg tablet Take 1 tablet by mouth once daily. omeprazole (PRILOSEC) 20 mg capsule Take 20 mg by mouth once daily. AUSTEDO 6 mg tab Take 6 mg by mouth twice daily. Lancets lancets Test Four times a day. Insulin Dep? Yes E11.9 DM 2 200 Each 4 blood sugar diagnostic (BLOOD GLUCOSE TEST) test strip Test Four times a day. Insulin Dep? Yes E11.9 DM 2 300 Strip 3 calcium carbonate 600 mg-cholecalciferol 200 units (CALCARB 600 WITH VITAMIN D) 600 mg(1,500mg) -200 unit tab Take 1 tablet by mouth twice daily. 60 tablet 5 wheat dextrin (BENEFIBER SUGAR FREE, DEXTRIN,) 3 gram/4 gram powd 1/2 tablespoon per day x2 weeks. Then increase by 1/2 tablespoon every 2 weeks until you are taking 3 tablespoons per day in divided doses. 248 g 3 polyethylene glycol 3350 (MIRALAX, GLYCOLAX) 17 gram/dose powder Take 17 g by mouth twice daily. Drink a mix of 1 scoop in 8oz of water/beverage once daily as needed for constipation. 1 Bottle 2 docusate sodium (COLACE) 100 mg capsule Take 1 capsule by mouth twice daily as needed for Constipation. 60 capsule 1 COMPOUNDED PRESCRIPTION PORTABLE OXYGEN TANKS FOR USE IN BACK PACK USES 3 Lpm WHEN ON PORTABLE TANK to use with exertion DX R79.81 4 Each 11 COMPOUNDED PRESCRIPTION EMERGENCY BACKUP OXYGEN TANK FOR WHEN PATIENT LOSES ELECTRICITY DX R79.81 1 Each 11 COMPOUNDED PRESCRIPTION Oxygen supplies dx: R79.81 R06.02 1 Each 99 COMPOUNDED PRESCRIPTION CPAP supplies Dx: G47.33 [address] COMPOUNDED PRESCRIPTION Home Oxygen, 2 litres with cpap machine 1 Each 0 blood sugar diagnostic (ONETOUCH ULTRA TEST) test strip Test blood sugar(s) 4 times daily. Dx: Type 2 DM - Uncontrolled E11.65 Insulin: Yes 200 Strip 11 Lancets (ACCU-CHEK FASTCLIX) lancets With Accuchek fastclix lancing device. Check sugars 4x/day Dx: e11.65 Insulin: Yes 200 Each 11 Current Facility-Administered Medications Medication Dose Route Frequency Provider Last Rate Last Admin perflutren lipid microspheres 1.3 mL in NaCl (PF) 0.9% 10 mL injection (DEFINITY) INTRAVENOUS DIRECTED PRN Shawanda May MD sodium chloride 0.9 % (flush) 10 mL (BD POSIFLUSH) 10 mL INTRAVENOUS DIRECTED PRN Shawanda May MD EXAM: Last 3 Encounter BP Readings: Date: BP: 07/21/2022 120/60 07/08/2022 122/68 07/03/2022 122/66 Wt: 88 kg (194 lb) BMI: 33.30 kg/(m^2) LABS: reviewed Lab Results Component Value Date HBA1C 8.0 06/11/2022 HBA1C 6.8 03/03/2022 HBA1C 6.7 12/11/2021 HBA1C 7.0 07/30/2021 HBA1C 7.0 11/15/2020 HBA1C 7.2 09/02/2020 HBA1C 8.2 06/03/2020 Glucose 230 05/14/2022 BUN 9 05/14/2022 Creatinine, Whole Blood (iSTAT) 0.62 05/14/2022 Sodium 141 05/14/2022 Potassium 4.2 05/14/2022 Chloride 100 05/14/2022 CO2 30 05/14/2022 Protein, Total 6.5 05/14/2022 Albumin 4.4 05/14/2022 Calcium 10.2 05/14/2022 Alkaline Phosphatase 78 05/14/2022 Bilirubin, Total 0.7 05/14/2022 AST 33 05/14/2022 ALT 50 05/14/2022 Lab Results Component Value Date CHOL 137 05/14/2022 CHOL 138 11/15/2020 LDL 65 05/14/2022 LDL 72 11/15/2020 HDL 45 05/14/2022 HDL 45 11/15/2020 TG 135 05/14/2022 TG 103 11/15/2020 Albumin/Creat Ratio (mg/g) Date Value 07/30/2021 <10 eGFR- (no units) Date Value 11/15/2020 >60 ASSESSMENT/PLAN: 1. Diabetes mellitus type 2 (HCC) - ICD9: 250.00, ICD10: E11.9 A1c goal < 7%; not at goal. SMBG elevated following recent procedure. Readings improved on self-increased insulin dose. Will continue current Lantus dose for improved BG control. Increase Toujeo 18 units once daily Continue Ozempic 2 mg once weekly Follow up: Pharmacy follow up: 09/16/22 PCP follow up: 10/12/22 Donis Harris PharmD, BCACP Primary Care Clinical Pharmacist The majority of the pharmacy visit (> 50%) was spent counseling and/or coordinating care for the patient. interaction: telephonic time was 18 minutes. documented in this encounter [facility] 08-03-2022 Miscellaneous Notes Patient notified of results, verbalizes understanding of instructions. Patient states she is feeling good. Will call office for appointment if any concerns arise. Serenity De Leon RN Please notify patient of benign pathology of BSO (right ovarian cyst) and pedunculated fibroid that was removed. How is she feeling? No post op needed unless concerns. Pathology report from surgery on 07/31 at [facility] received. Scan on 08/03/2022 2:53 PM by External Provider, MAURO: HAT COPYIST Patient does not have post op scheduled. Serenity De Leon RN documented in this encounter [facility] 07-31-2022 Discharge summary Note Date/Time July 31, 2022 8:50 am [facility] Medical Records Department [address] [place] [address] Instructions for Home/Discharge Instructions 07/31/22 0849 MR#: [id number] Acct: [id number] Name: MELANIE BIRD Rep #:[id number] : 1955 67 From: Chyna Delacruz MD PCP: Dr. Modesta Daley MD Status:REG S DC Discharge Instructions Procedure Other Diet Discharge Diet: No restrictions Activity May resume sexual activity in: 2 weeks Lifting Restrictions: 20-25 lbs Dressing / Incision Call your doctor if your incision/area has: Continuous Slow Oozing, Sudden Increased Bleeding, Increased Pain/ Swelling, Increased Redness, Foul Smelling Discharge and Swelling at the incision site Call your doctor if you observe: Fever of 101 or Higher, Inability to urinate, Inability to have a bowel movement, Using more than 1 pad per hour and Uncontrolled pain Additional Dressing/Incision Instructions:: You have skin glue over your incision sites, do not pick off. You may shower and let the soap and water run over the incision sites and dab dry. Follow Up Care Please Follow Up With: Chyna Durant MD When: 1-2 weeks post OP if you need an appointment please call [phone] Test Results: Test results from this visit will be discussed in further detail at your follow-up appointment, if applicable. Discharge Plan Admission Attending Provider: Chyna Durant Primary Care Provider: Modesta Daley Consulting Providers: Jeremiah Ricardo Discharge Orders/Prescriptions Prescriptions: No Action atorvastatin 40 MG tablet 20 mg PO QHS Label Comments: reduces cholesterol acyclovir [Zovirax] 400 MG tablet 400 mg PO BID Label Comments: antiviral-cold sores ascorbic acid (vitamin C) [Vitamin C] 500 MG tablet 500 mg PO DAILY@0800 Label Comments: supplement gabapentin [Neurontin] 800 MG tablet 1,800 mg PO QHS Label Comments: nerve pain/restless legs zolpidem 5 MG tablet 5 mg PO QHS Label Comments: sleep alosetron 0.5 MG tablet 1 mg PO DAILY Label Comments: DIARRHEA calcium carbonate-vitamin D3 [Calcium 600 + D(3)] 1 EACH tablet 1 ea PO BID Label Comments: supplement Ropinirole Hcl [Requip] 1 MG tablet 0.5 mg PO BID Label Comments: restless legs alosetron 0.5 MG tablet 1 mg PO DINNER Label Comments: irritable bowel cholecalciferol (vitamin D3) [Vitamin D3] 1,000 UNIT tablet 2,000 unit PO DAILY Label Comments: supplement Gralise 600 MG tablet extended release 24 hr 1,200 mg PO LUNCH Label Comments: nerve pain clonidine HCl 0.1 mg tablet 0.1 mg PO QHS fexofenadine 180 mg Tablet 180 mg PO DAILY magnesium oxide [MagOx] 400 mg (241.3 mg magnesium) Tablet 400 mg PO DAILY sertraline 50 mg Tablet 50 mg PO DAILY Farxiga 5 mg Tablet 5 mg PO DAILY Balaji Gibbs U-300 Insulin 300 unit/mL (1.5 mL) insulin pen 18 unit SUBCUT DAILY Austedo 6 mg tablet 12 mg PO DAILY Austedo 6 mg tablet 18 mg PO QPM Ozempic 2 mg/dose (8 mg/3 mL) pen injector 2 mg SUBCUT MCMULLEN Referrals / Follow Up: Modesta Daley MD [Primary Care Provider] - Disposition Disposition (needs filled in before D/C Order can be placed): Home, Self Care 07/31/22 0850<Electronically signed by Chyna Durant MD>Chyna Durant MD CC: Dr. Modesta Daley MD; Dr. Jeremiah Ricardo MD ~ Signed [facility] Work Phone: 1(248) 865-663906-16-2023 Miscellaneous Notes* Telephone Encounter - Inna Small APRN.CNP - 07/31/2022 9:30 AM EDT PDMP website checked and validated. All prescriptions have been APPROPRIATELY filled. No suspiciousactivity was identified. 07/31/2022 by Inna Small APRN.CNP * Telephone Encounter - Radha Spencer RN - 07/29/2022 3:13 PM EDT Patient has been identified by name and date of : Yes, Radha Spencer RN Date 07/29/2022 Time 3:116 am Pharmacy phones for refill(s): Requested Prescriptions Pending Prescriptions Disp Refills zolpidem (AMBIEN) 5 mg tablet 30 tablet 2 Sig: Take 1 tablet by mouth at bedtime as needed for sedation for up to 90 days. TAKE 1 TABLET BY MOUTH AT BEDTIME NEEDED FOR SEDATION Last appt: 07/08/2022 Future appt: 10/12/2022 Last 2 Encounter Wt Readings: Date: Wt: 07/21/2022 88 kg (194 lb) 07/08/2022 88.9 kg (196 lb) Previous labs/tests for medication: Blood Pressure: BUN (mg/dL) Date Value 05/14/2022 9 11/15/2020 18 Sodium (mmol/L) Date Value 05/14/2022 141 11/15/2020 140 Last 1 Encounter BP Readings: Date: BP: 07/21/2022 120/60 Liver Function: ALT (U/L) Date Value 05/14/2022 50 11/15/2020 17 AST (U/L) Date Value 05/14/2022 33 11/15/2020 18 Please advise. Thank you. Radha Spencer RN [facility] History and physical note Author M Dr. Chyna Suarez [facility] July 31, 2022 7:13am Note Date/Time July 30, 2022 4:49 pm [facility] Medical Records Department [address] [place] [address] History & Physical Exam 07/30/22 1649 MR#: [id number] Acct: [id number] Name: MELANIE BIRD Rep #:[id number] : 1955 67 From: Chyna Delacruz MD PCP: Dr. Modesta Daley MD Status:REG S [place] Location: [place] [address] History and Physical Date of Admission: 07/31/22 Pre-Op History and Physical ? HPI: The patient is a 67 year old female presenting for pre-operative visit. She is scheduled for laparoscopic bilateral salpingo-oophorectomy and right cystectomy, for persistent right ovarian cyst measuring 8.6 cm on 07/31/21. Procedure discussed along with risks, benefits and complications. Other alternatives discussed for management. Consent form signed? Yes. ? ? PAST MEDICAL HISTORY PAST MEDICAL HISTORY Diagnosis Date ? Depression ? ? Diabetes mellitus type 2, uncontrolled ? ? High cholesterol ? ? History of colon polyps ? ? History of gallstones ? ? IBS (irritable bowel syndrome) ? ? Obesity 04/25/2013 ? BMI 48.43 ? ARIANA (obstructive sleep apnea) 03/06/2013 ? Parkinson disease (HCC) ? ? ? PAST SURGICAL HISTORY PAST SURGICAL HISTORY Procedure Laterality Date ? ANAL SPHINCTEROPLASTY ? ? ? SPHINCTEROPLASTY ANAL W/ IMPLANT ARTIFICIAL SPHINCTER ADULT ? BARIATRIC SURGERY HX ? 05/28/2021 ? CATARACT EXTRACTION HX Bilateral ? ? 08/2012 ? COLONOSCOPY GEN ANES ? 04/2019 ? INCISE FINGER TENDON SHEATH ? 12/20/2012 ? Left 3rd trigger finger release ? MANIPULATION KNEE JOINT UNDER GENERAL ANESTHESIA Left 01/23/2022 ? Left knee manipulation under anesthesia ? PAST SURGICAL HISTORY OF ? 06/2012 ? Interstim ? PAST SURGICAL HISTORY OF Right ? ? trigger thumb ? REMOVAL GALLBLADDER ? 2000 ? TOTAL KNEE REPLACEMENT Left 10/29/2021 ? Left robotic total knee replacement ? ? ? CURRENT MEDICATIONS Current Outpatient Medications Medication Sig Dispense Refill ? gabapentin (NEURONTIN) 600 mg tablet Take 3 tablets by mouth daily at bedtime for 180 days. 90 tablet 5 ? gabapentin (NEURONTIN) 300 mg capsule Take 3 capsules by mouth daily at lunch 90 capsule 5 ? insulin glargine U-300 conc (TOUJEO SOLOSTAR U-300 INSULIN) 300 unit/mL (1.5mL) Inject 18 Units subcutaneously every morning. ? ? ? fexofenadine (ESFERINO) 180 mg tablet Take 1 tablet by mouth once daily. 28 tablet 3 ? pen needle, diabetic (NOVOFINE PLUS) 32 gauge x 1/6 Use to inject insulinonce daily 100 Each 1 ? zolpidem (AMBIEN) 5 mg tablet Take 1 tablet by mouth at bedtime as needed for sedation for up to 90 days. TAKE 1 TABLET BY MOUTH AT BEDTIME NEEDED FOR SEDATION Do not start before May 20, 2022. 30 tablet 2 ? acyclovir (ZOVIRAX) 400 mg tablet Take 1 tablet by mouth twice daily. 60tablet 11 ? rOPINIRole (REQUIP) 0.5 mg tablet TAKE 1 TABLET BY MOUTH TWICE A DAY (NOONAND BEDTIME) 60 tablet 11 ? Cholecalciferol, Vitamin D3, (VITAMIN D-3) 50 mcg (2,000 unit) cap Take 1 capsule by mouth once daily. 30 capsule 11 ? semaglutide (OZEMPIC) 2 mg/dose (8 mg/3 mL) pen injector Inject 2 mg subcutaneously one time a week. 3 mL 3 ? sertraline (ZOLOFT) 50 mg tablet Take 1 tablet by mouth once daily. 30 tablet 5 ? ascorbic acid, vitamin C, (VITAMIN C) 500 mg tablet Take 1 tablet by mouthonce daily. 30 tablet 11 ? magnesium oxide (MAG-OX) 400 mg (241.3 mg magnesium) tablet Take 2 tabletsby mouth once daily. 60 tablet 11 ? atorvastatin (LIPITOR) 20 mg tablet Take 1 tablet by mouth once daily. 28 tablet 11 ? flash glucose sensor (FREESTYLE IZABELLA 2 SENSOR) kit Use to monitor blood sugars 4 times daily 6 Each 3 ? Surgical Lubricant Jelly gel For MRI Female Pelvis, MRI department to provide. Administer intra-vaginal Surgilube immediately prior the MRI procedure (total amount to patient toleranace). 5 g 1 ? OXYGEN, HOME THERAPY, 2 L/min by Mask route daily at bedtime. CPAP 2L at night ? ? ? cloNIDine HCl (CATAPRES) 0.1 mg tablet Take 1 tablet by mouth once daily. ? ? ? omeprazole (PRILOSEC) 20 mg capsule Take 20 mg by mouth once daily. ? ? ? AUSTEDO 6 mg tab Take 6 mg by mouth twice daily. ? ? ? Lancets lancets Test Four times a day. Insulin Dep? Yes E11.9 DM 2 200 Each 4 ? blood sugar diagnostic (BLOOD GLUCOSE TEST) test strip Test Four times a day. Insulin Dep? Yes E11.9 DM 2 300 Strip 3 ? calcium carbonate 600 mg-cholecalciferol 200 units (CALCARB 600 WITH VITAMIND) 600 mg(1,500mg) -200 unit tab Take 1 tablet by mouth twice daily. 60 tablet 5 ? wheat dextrin (BENEFIBER SUGAR FREE, DEXTRIN,) 3 gram/4 gram powd 1/2 tablespoon per day x2 weeks. Then increase by 1/2 tablespoon every 2 weeks until you are taking 3 tablespoons per day in divided doses. 248 g 3 ? polyethylene glycol 3350 (MIRALAX, GLYCOLAX) 17 gram/dose powder Take 17 gby mouth twice daily. Drink a mix of 1 scoop in 8oz of water/beverage once dailyas needed for constipation. 1 Bottle 2 ? docusate sodium (COLACE) 100 mg capsule Take 1 capsule by mouth twice daily as needed for Constipation. 60 capsule 1 ? COMPOUNDED PRESCRIPTION PORTABLE OXYGEN TANKS FOR USE IN BACK PACK USES 3 Lpm WHEN ON PORTABLE TANK to use with exertion DX R79.81 4 Each 11 ? COMPOUNDED PRESCRIPTION EMERGENCY BACKUP OXYGEN TANK FOR WHEN PATIENT LOSES ELECTRICITY DX R79.81 1 Each 11 ? COMPOUNDED PRESCRIPTION Oxygen supplies dx: R79.81 R06.02 1 Each 99 ? COMPOUNDED PRESCRIPTION CPAP supplies Dx: G47.33 [address] ? COMPOUNDED PRESCRIPTION Home Oxygen, 2 litres with cpap machine 1 Each 0 ? blood sugar diagnostic (T[place]el CinemaTOUCH ULTRA TEST) test strip Test blood sugar(s) 4 times daily. Dx: Type 2 DM - Uncontrolled E11.65 Insulin: Yes 200Strip 11 ? Lancets (ACCU-CHEK FASTCLIX) lancets With Accuchek fastclix lancing device. Check sugars 4x/day Dx: e11.65 Insulin: Yes 200 Each 11 ? Current Facility-Administered Medications Medication Dose Route Frequency Provider Last Rate Last Admin ? perflutren lipid microspheres 1.3 mL in NaCl (PF) 0.9% 10 mL injection (DEFINITY) INTRAVENOUS DIRECTED PRN Shawanda May MD ? sodium chloride 0.9 % (flush) 10 mL (BD POSIFLUSH) 10 mL INTRAVENOUS DIRECTED PRN Shawanda May MD ? ? ALLERGIES: Seroquel [Quetiapine Fumarate] and Victoza [Liraglutide] ? PERSONAL HISTORY: SOCIAL HISTORY Social History ? Tobacco Use ? Smoking status: Former ? ? Packs/day: 0.10 ? ? Years: 3.00 ? ? Pack years: 0.30 ? ? Types: Cigarettes ? ? Quit date: 04/25/1988 ? ? Years since quittin.2 ? Smokeless tobacco: Never ? Tobacco comments: ? ? No smoking in childhood home. Roomate of last 10 years smoked while living with patient. Vaping Use ? Vaping Use: Never used Substance Use Topics ? Alcohol use: No ? Drug use: No ? FAMILY HISTORY: FAMILY HISTORY FAMILY HISTORY Problem Relation Age of Onset ? Diabetes Mother ? ? Heart Mother ? ? Diabetes Father ? ? Heart Father ? ? Colon Cancer Sister ? ? Asthma No Family History ? ? ? REVIEW OF SYMPTOMS: negative except as noted above PHYSICAL EXAMINATION: ? VITALS: Blood pressure 120/60, weight 194 lb (88 kg), last menstrual period 04/10/2012. ? GENERAL: The patient is well nourished, well hydrated in no acute distress. , The patient is oriented to time, place, and person. NECK: Supple. No lynphadenopathy, normal thyroid, no thyromegaly. LUNGS: Clear to auscultation bilaterally. no wheezes, rhonchi or rales HEART: Regular rate and rhythm, Normal heart sounds, and No murmurs or gallops ? IMPRESSION: 67yo female with persistent right ovarian cyst - desires surgical intervention. ? PLAN: laparoscopic BSO and removal of right ovarian cyst ? Pt has been counseled on risks/benefits and alternatives of surgery including but not limited to anesthesia, bleeding, infection, injury to pelvic structures including bowel, bladder, ureters and vessels. Pt wishes to proceed with surgery at this time. ? I discussed with the patient that there is potential that this cyst could be borderline malignant or malignant which could require a potential second surgery for staging at a later date. I discussed with the patient that we will try to not rupture the cyst in the abdominal cavity however even gentle manipulation of the cyst could cause this we discussed that if this did occur this would change the staging for ovarian cancer. I did give the patient the option to see a minimally invasive specialist or FOOD EQUIPMENT SERVICE TECHNICIAN oncologist if she desired but patient declined. ? Preoperative clearance was obtained and is on the chart. ? Pre and postoperative instructions were reviewed with the patient. ? I have reviewed and updated past medical and surgical history, medications and allergies Chyna Delacruz MD ?4:41 PM Office Visit on 07/21/2022 Office Visit on 07/21/2022 Note shared with patient 07/30/22 1649 <Electronically signed by Chyna Durant MD> Cosigner Signature (if applicable): CC: M Dr. Chyna Durant; Dr. Modesta Daley MD~ Signed ADDENDUM by M Dr. Chyna Durant on 07/31/22 at 0713 Addendum I have examined the patient and the H&P has been reviewed. There are no clinical changes since date of exam. 07/31/22 0713<Electronically signed by Chyna Durant MD> Cosigner Signature (if applicable): cc: M Dr. Chyna Durant; Dr. Modesta Daley MD ~* Signed [facility] Work Phone: 1(110) 836-833506-16-2023 Procedure [facility] 07-30-2022 [facility] Medical Records Department [address] [place] [address] History Physical Exam 07/30/22 1649 MR#: [id number] Acct: [id number] Name: MELANIE BIRD Rep #: [id number] : 1955 67 From: Chyna Durant MD PCP: Dr. Modesta Daley MD Status:[facility] Location: [place] [address] History and Physical Date of Admission: 07/31/22 Pre-Op History and Physical ??? HPI: The patient is a 67 year old female presenting for pre-operative visit. She is scheduled for laparoscopic bilateral salpingo-oophorectomy and right cystectomy, for persistent right ovarian cyst measuring 8.6 cm on 07/31/21. Procedure discussed along with risks, benefits and complications. Other alternatives discussed for management. Consent form signed? Yes. ? PAST MEDICAL HISTORY PAST MEDICAL HISTORY Diagnosis Date ??? Depression ? Diabetes mellitus type 2, uncontrolled ? High cholesterol ? History of colon polyps ? History of gallstones ? IBS (irritable bowel syndrome) ? Obesity 04/25/2013 ??? BMI 48.43 ??? ARIANA (obstructive sleep apnea) 03/06/2013 ??? Parkinson disease (HCC) ? PAST SURGICAL HISTORY PAST SURGICAL HISTORY Procedure Laterality Date ??? ANAL SPHINCTEROPLASTY ? SPHINCTEROPLASTY ANAL W/ IMPLANT ARTIFICIAL SPHINCTER ADULT ??? BARIATRIC SURGERY HX ??? 05/28/2021 ??? CATARACT EXTRACTION HX Bilateral ? 08/2012 ??? COLONOSCOPY GEN ANES ??? 04/2019 ??? INCISE FINGER TENDON SHEATH ??? 12/20/2012 ??? Left 3rd trigger finger release ??? MANIPULATION KNEE JOINT UNDER GENERAL ANESTHESIA Left 01/23/2022 ??? Left knee manipulation under anesthesia ??? PAST SURGICAL HISTORY OF ??? 06/2012 ??? Interstim ??? PAST SURGICAL HISTORY OF Right ? trigger thumb ??? REMOVAL GALLBLADDER ??? 2000 ??? TOTAL KNEE REPLACEMENT Left 10/29/2021 ??? Left robotic total knee replacement ? CURRENT MEDICATIONS Current Outpatient Medications Medication Sig Dispense Refill ??? gabapentin (NEURONTIN) 600 mg tablet Take 3 tablets by mouth daily at bedtime for 180 days. 90 tablet 5 ??? gabapentin (NEURONTIN) 300 mg capsule Take 3 capsules by mouth daily at lunch 90 capsule 5 ??? insulin glargine U-300 conc (TOUJEO SOLOSTAR U-300 INSULIN) 300 unit/mL (1.5 mL) Inject 18 Units subcutaneously every morning. ? fexofenadine (SEFERINO) 180 mg tablet Take 1 tablet by mouth once daily. 28 tablet 3 ??? pen needle, diabetic (NOVOFINE PLUS) 32 gauge x 1/6 Use to inject insulin once daily 100 Each 1 ??? zolpidem (AMBIEN) 5 mg tablet Take 1 tablet by mouth at bedtime as needed for sedation for up to 90 days. TAKE 1 TABLET BY MOUTH AT BEDTIME NEEDED FOR SEDATION Do not start before May 20, 2022. 30 tablet 2 ??? acyclovir (ZOVIRAX) 400 mg tablet Take 1 tablet by mouth twice daily. 60 tablet 11 ??? rOPINIRole (REQUIP) 0.5 mg tablet TAKE 1 TABLET BY MOUTH TWICE A DAY (NOON AND BEDTIME) 60 tablet 11 ??? Cholecalciferol, Vitamin D3, (VITAMIN D-3) 50 mcg (2,000 unit) cap Take 1 capsule by mouth once daily. 30 capsule 11 ??? semaglutide (OZEMPIC) 2 mg/dose (8 mg/3 mL) pen injector Inject 2 mg subcutaneously one time a week. 3 mL 3 ??? sertraline (ZOLOFT) 50 mg tablet Take 1 tablet by mouth once daily. 30 tablet 5 ??? ascorbic acid, vitamin C, (VITAMIN C) 500 mg tablet Take 1 tablet by mouth once daily. 30 tablet 11 ??? magnesium oxide (MAG-OX) 400 mg (241.3 mg magnesium) tablet Take 2 tablets by mouth once daily. 60 tablet 11 ??? atorvastatin (LIPITOR) 20 mg tablet Take 1 tablet by mouth once daily. 28 tablet 11 ??? flash glucose sensor (FREESTYLE IZABELLA 2 SENSOR) kit Use to monitor blood sugars 4 times daily 6 Each 3 ??? Surgical Lubricant Jelly gel For MRI Female Pelvis, MRI department to provide. Administer intra-vaginal Surgilube immediately prior the MRI procedure (total amount to patient toleranace). 5 g 1 ??? OXYGEN, HOME THERAPY, 2 L/min by Mask route daily at bedtime. CPAP 2L at night ? cloNIDine HCl (CATAPRES) 0.1 mg tablet Take 1 tablet by mouth once daily. ? omeprazole (PRILOSEC) 20 mg capsule Take 20 mg by mouth once daily. ? AUSTEDO 6 mg tab Take 6 mg by mouth twice daily. ? Lancets lancets Test Four times a day. Insulin Dep? Yes E11.9 DM 2 200 Each 4 ??? blood sugar diagnostic (BLOOD GLUCOSE TEST) test strip Test Four times a day. Insulin Dep? Yes E11.9 DM 2 300 Strip 3 ??? calcium carbonate 600 mg-cholecalciferol 200 units (CALCARB 600 WITH VITAMIN D) 600 mg(1,500mg) -200 unit tab Take 1 tablet by mouth twice daily. 60 tablet 5 ??? wheat dextrin (BENEFIBER SUGAR FREE, DEXTRIN,) 3 gram/4 gram powd 1/2 tablespoon per day x2 weeks. Then increase by 1/2 tablespoon every 2 weeks until you are taking 3 tablespoons per day in divided doses. 248 g 3 ??? polyethylene glycol 3350 (FRANDY (more content not included)...[facility] History of Present illness Narrative* Patrickmarija Harris, [facility] - 07/27/2022 1:30 PM EDT Primary Care Pharmacy Visit CC (Reason for Consult): Diabetes Goal: A1c < 7% Last Collaborating Physician Visit: 07/08/22 Melanie Bird is a 67 year old female presenting for follow up visit by telephone. Patient consents to pharmacy collaborative practice agreement. . At last visit with pharmacy on 07/01/22 the following changes were made: none HPI: Feeling well overall Has upcoming procedure, laparoscopic bilateral salpingo-oophorectomy Working on some recent diet changes lately to make sure she is in best health going into procedure Has cut down evening snacks and has noticed that BG readings are much lower, particularly in the morning hours GLYCEMIC CONTROL: SMBG's: Summary of CGM Findings: (last 14 days) 1- CGM recording is adequate for interpretation 2- Average glucose is 132 mg/dL. 12 am - 6 am: 94 mg/dL 6 am -12 pm: 120 mg/dL 12 pm - 6 pm: 175 mg/dL 6 pm - 12 am: 156 mg/dL 3- Total frequency of hypoglycemia: 1 % 4- Nocturnal hypoglycemia was noted. 5- Hyperglycemic episodes: 18 % 6- Time in target range (70-180 mg/dL): 81 % ROS: As above. Patient denies CP, SOB, HATCH, blurred vision, dizziness or lightheadedness Patient denies nausea, vomiting, diarrhea, abdominal pain Patient denies symptoms of hypoglycemia (sweating, anxiety, palpitations, hunger, and tremor) Patient denies symptoms of hyperglycemia (polyuria, polydipsia, polyphagia) Patient denies potential medication adverse effects Past medical, family and social history reviewed and updated. MEDICATIONS: Adherence: denies missed doses ALLERGIES Allergen Reactions Seroquel [Quetiapin* Mental Status Change Victoza [Liraglutid* GI Upset Current Outpatient Medications Medication Sig Dispense Refill gabapentin (NEURONTIN) 600 mg tablet Take 3 tablets by mouth daily at bedtime for 180 days. 90 tablet 5 gabapentin (NEURONTIN) 300 mg capsule Take 3 capsules by mouth daily at lunch 90 capsule 5 insulin glargine U-300 conc (TOUJEO SOLOSTAR U-300 INSULIN) 300 unit/mL (1.5 mL) Inject 18 Units subcutaneously every morning. fexofenadine (SEFERINO) 180 mg tablet Take 1 tablet by mouth once daily. 28 tablet 3 pen needle, diabetic (NOVOFINE PLUS) 32 gauge x 1/6 Use to inject insulin once daily 100 Each 1 zolpidem (AMBIEN) 5 mg tablet Take 1 tablet by mouth at bedtime as needed for sedation for up to 90days. TAKE 1 TABLET BY MOUTH AT BEDTIME NEEDED FOR SEDATION Do not start before May 20, 2022. 30 tablet 2 acyclovir (ZOVIRAX) 400 mg tablet Take 1 tablet by mouth twice daily. 60 tablet 11 rOPINIRole (REQUIP) 0.5 mg tablet TAKE 1 TABLET BY MOUTH TWICE A DAY (NOON AND BEDTIME) 60 tablet 11 Cholecalciferol, Vitamin D3, (VITAMIN D-3) 50 mcg (2,000 unit) cap Take 1 capsule by mouth once daily. 30 capsule 11 semaglutide (OZEMPIC) 2 mg/dose (8 mg/3 mL) pen injector Inject 2 mg subcutaneously one time a week. 3 mL 3 sertraline (ZOLOFT) 50 mg tablet Take 1 tablet by mouth once daily. 30 tablet 5 ascorbic acid, vitamin C, (VITAMIN C) 500 mg tablet Take 1 tablet by mouth once daily. 30 tablet 11 magnesium oxide (MAG-OX) 400 mg (241.3 mg magnesium) tablet Take 2 tablets by mouth once daily. 60 tablet 11 atorvastatin (LIPITOR) 20 mg tablet Take 1 tablet by mouth once daily. 28 tablet 11 flash glucose sensor (FREESTYLE IZABELLA 2 SENSOR) kit Use to monitor blood sugars 4 times daily 6 Each 3 Surgical Lubricant Jelly gel For MRI Female Pelvis, MRI department to provide. Administer intra-vaginal Surgilube immediately prior the MRI procedure (total amount to patient toleranace). 5 g 1 OXYGEN, HOME THERAPY, 2 L/min by Mask route daily at bedtime. CPAP 2L at night cloNIDine HCl (CATAPRES) 0.1 mg tablet Take 1 tablet by mouth once daily. omeprazole (PRILOSEC) 20 mg capsule Take 20 mg by mouth once daily. AUSTEDO 6 mg tab Take 6 mg by mouth twice daily. Lancets lancets Test Four times a day. Insulin Dep? Yes E11.9 DM 2 200 Each 4 blood sugar diagnostic (BLOOD GLUCOSE TEST) test strip Test Four times a day. Insulin Dep? Yes E11.9 DM 2 300 Strip 3 calcium carbonate 600 mg-cholecalciferol 200 units (CALCARB 600 WITH VITAMIN D) 600 mg(1,500mg) -200 unit tab Take 1 tablet by mouth twice daily. 60 tablet 5 wheat dextrin (BENEFIBER SUGAR FREE, DEXTRIN,) 3 gram/4 gram powd 1/2 tablespoon per day x2 weeks. Then increase by 1/2 tablespoon every 2 weeks until you are taking 3 tablespoons per day in divided doses. 248 g 3 polyethylene glycol 3350 (MIRALAX, GLYCOLAX) 17 gram/dose powder Take 17 g by mouth twice daily. Drink a mix of 1 scoop in 8oz of water/beverage once daily as needed for constipation. 1 Bottle 2 docusate sodium (COLACE) 100 mg capsule Take 1 capsule by mouth twice daily as needed for Constipation. 60 capsule 1 COMPOUNDED PRESCRIPTION PORTABLE OXYGEN TANKS FOR USE IN BACK PACK USES 3 Lpm WHEN ON PORTABLE TANKto use with exertion DX R79.81 4 Each 11 COMPOUNDED PRESCRIPTION EMERGENCY BACKUP OXYGEN TANK FOR WHEN PATIENT LOSES ELECTRICITY DX R79.81 1Each 11 COMPOUNDED PRESCRIPTION Oxygen supplies dx: R79.81 R06.02 1 Each 99 COMPOUNDED PRESCRIPTION CPAP supplies Dx: G47.[address] COMPOUNDED PRESCRIPTION Home Oxygen, 2 litres with cpap machine 1 Each 0 blood sugar diagnostic (ONETOUCH ULTRA TEST) test strip Test blood sugar(s) 4 times daily. Dx: Type2 DM - Uncontrolled E11.65 Insulin: Yes 200 Strip 11 Lancets (ACCU-CHEK FASTCLIX) lancets With Accuchek fastclix lancing device. Check sugars 4x/day Dx:e11.65 Insulin: Yes 200 Each 11 Current Facility-Administered Medications Medication Dose Route Frequency Provider Last Rate Last Admin perflutren lipid microspheres 1.3 mL in NaCl (PF) 0.9% 10 mL injection (DEFINITY) INTRAVENOUS DIRECTED PRN Shawanda May MD sodium chloride 0.9 % (flush) 10 mL (BD POSIFLUSH) 10 mL INTRAVENOUS DIRECTED PRN Shawanda May MD EXAM: Last 3 Encounter BP Readings: Date: BP: 07/21/2022 120/60 07/08/2022 122/68 07/03/2022 122/66 Wt: 194 lb (88 kg) BMI: 33.30 kg/(m^2) LABS: reviewed Lab Results Component Value Date HBA1C 8.0 06/11/2022 HBA1C 6.8 03/03/2022 HBA1C 6.7 12/11/2021 HBA1C 7.0 07/30/2021 HBA1C 7.0 11/15/2020 HBA1C 7.2 09/02/2020 HBA1C 8.2 06/03/2020 Glucose 230 05/14/2022 BUN 9 05/14/2022 Creatinine, Whole Blood (iSTAT) 0.62 05/14/2022 Sodium 141 05/14/2022 Potassium 4.2 05/14/2022 Chloride 100 05/14/2022 CO2 30 05/14/2022 Protein, Total 6.5 05/14/2022 Albumin 4.4 05/14/2022 Calcium 10.2 05/14/2022 Alkaline Phosphatase 78 05/14/2022 Bilirubin, Total 0.7 05/14/2022 AST 33 05/14/2022 ALT 50 05/14/2022 Lab Results Component Value Date CHOL 137 05/14/2022 CHOL 138 11/15/2020 LDL 65 05/14/2022 LDL 72 11/15/2020 HDL 45 05/14/2022 HDL 45 11/15/2020 TG 135 05/14/2022 TG 103 11/15/2020 Albumin/Creat Ratio (mg/g) Date Value 07/30/2021 <10 eGFR- (no units) Date Value 11/15/2020 >60 ASSESSMENT/PLAN: 1. Diabetes mellitus type 2 (HCC) - ICD9: 250.00, ICD10: E11.9 A1c goal < 7%; not at goal. SMBG improving. Reporting nocturnal hypoglycemia. Will lower basal insulin to prevent hypoglycemia. Discussed that if BG readings become elevated after surgery, may increase basal insulin by 2 units every 3 days until FBG <130 mg/dL. Decrease Toujeo 14 units once daily Continue Ozempic 2 mg once weekly - TOUJEO SOLOSTAR U-300 INSULIN 300 UNIT/ML (1.5 ML) SUBCUTANEOUS PEN Follow up: Pharmacy follow up: 08/10/22 PCP follow up: 10/12/22 Donis Harris PharmD, BCACP Primary Care Clinical Pharmacist The majority of the pharmacy visit (> 50%) was spent counseling and/or coordinating care for thepatient. interaction: telephonic time was 20 minutes. documented in this encounterTr[facility] History and physical note * Chyna Delacruz MD - 07/21/2022 4:33 PM EDT Pre-Op History and Physical HPI: The patient is a 67 year old female presenting for pre-operative visit. She is scheduled for laparoscopic bilateral salpingo-oophorectomy and right cystectomy, for persistent right ovarian cyst measuring 8.6 cm on 07/31/21. Procedure discussed along with risks, benefits and complications. Other alternatives discussed for management. Consent form signed? Yes. PAST MEDICAL HISTORY Diagnosis Date Depression Diabetes mellitus type 2, uncontrolled High cholesterol History of colon polyps History of gallstones IBS (irritable bowel syndrome) Obesity 04/25/2013 BMI 48.43 ARIANA (obstructive sleep apnea) 03/06/2013 Parkinson disease (HCC) PAST SURGICAL HISTORY Procedure Laterality Date ANAL SPHINCTEROPLASTY SPHINCTEROPLASTY ANAL W/ IMPLANT ARTIFICIAL SPHINCTER ADULT BARIATRIC SURGERY HX 05/28/2021 CATARACT EXTRACTION HX Bilateral 08/2012 COLONOSCOPY GEN ANES 04/2019 INCISE FINGER TENDON SHEATH 12/20/2012 Left 3rd trigger finger release MANIPULATION KNEE JOINT UNDER GENERAL ANESTHESIA Left 01/23/2022 Left knee manipulation under anesthesia PAST SURGICAL HISTORY OF 06/2012 Interstim PAST SURGICAL HISTORY OF Right trigger thumb REMOVAL GALLBLADDER 2001 TOTAL KNEE REPLACEMENT Left 10/29/2021 Left robotic total knee replacement Current Outpatient Medications Medication Sig Dispense Refill gabapentin (NEURONTIN) 600 mg tablet Take 3 tablets by mouth daily at bedtime for 180 days. 90 tablet 5 gabapentin (NEURONTIN) 300 mg capsule Take 3 capsules by mouth daily at lunch 90 capsule 5 insulin glargine U-300 conc (TOUJEO SOLOSTAR U-300 INSULIN) 300 unit/mL (1.5 mL) Inject 18 Units subcutaneously every morning. fexofenadine (SEFERINO) 180 mg tablet Take 1 tablet by mouth once daily. 28 tablet 3 pen needle, diabetic (NOVOFINE PLUS) 32 gauge x 1/6 Use to inject insulin once daily 100 Each 1 zolpidem (AMBIEN) 5 mg tablet Take 1 tablet by mouth at bedtime as needed for sedation for up to 90days. TAKE 1 TABLET BY MOUTH AT BEDTIME NEEDED FOR SEDATION Do not start before May 20, 2022. 30 tablet 2 acyclovir (ZOVIRAX) 400 mg tablet Take 1 tablet by mouth twice daily. 60 tablet 11 rOPINIRole (REQUIP) 0.5 mg tablet TAKE 1 TABLET BY MOUTH TWICE A DAY (NOON AND BEDTIME) 60 tablet 11 Cholecalciferol, Vitamin D3, (VITAMIN D-3) 50 mcg (2,000 unit) cap Take 1 capsule by mouth once daily. 30 capsule 11 semaglutide (OZEMPIC) 2 mg/dose (8 mg/3 mL) pen injector Inject 2 mg subcutaneously one time a week. 3 mL 3 sertraline (ZOLOFT) 50 mg tablet Take 1 tablet by mouth once daily. 30 tablet 5 ascorbic acid, vitamin C, (VITAMIN C) 500 mg tablet Take 1 tablet by mouth once daily. 30 tablet 11 magnesium oxide (MAG-OX) 400 mg (241.3 mg magnesium) tablet Take 2 tablets by mouth once daily. 60 tablet 11 atorvastatin (LIPITOR) 20 mg tablet Take 1 tablet by mouth once daily. 28 tablet 11 flash glucose sensor (FREESTYLE IZABELLA 2 SENSOR) kit Use to monitor blood sugars 4 times daily 6 Each 3 Surgical Lubricant Jelly gel For MRI Female Pelvis, MRI department to provide. Administer intra-vaginal Surgilube immediately prior the MRI procedure (total amount to patient toleranace). 5 g 1 OXYGEN, HOME THERAPY, 2 L/min by Mask route daily at bedtime. CPAP 2L at night cloNIDine HCl (CATAPRES) 0.1 mg tablet Take 1 tablet by mouth once daily. omeprazole (PRILOSEC) 20 mg capsule Take 20 mg by mouth once daily. AUSTEDO 6 mg tab Take 6 mg by mouth twice daily. Lancets lancets Test Four times a day. Insulin Dep? Yes E11.9 DM 2 200 Each 4 blood sugar diagnostic (BLOOD GLUCOSE TEST) test strip Test Four times a day. Insulin Dep? Yes E11.9 DM 2 300 Strip 3 calcium carbonate 600 mg-cholecalciferol 200 units (CALCARB 600 WITH VITAMIN D) 600 mg(1,500mg) -200 unit tab Take 1 tablet by mouth twice daily. 60 tablet 5 wheat dextrin (BENEFIBER SUGAR FREE, DEXTRIN,) 3 gram/4 gram powd 1/2 tablespoon per day x2 weeks. Then increase by 1/2 tablespoon every 2 weeks until you are taking 3 tablespoons per day in divided doses. 248 g 3 polyethylene glycol 3350 (MIRALAX, GLYCOLAX) 17 gram/dose powder Take 17 g by mouth twice daily. Drink a mix of 1 scoop in 8oz of water/beverage once daily as needed for constipation. 1 Bottle 2 docusate sodium (COLACE) 100 mg capsule Take 1 capsule by mouth twice daily as needed for Constipation. 60 capsule 1 COMPOUNDED PRESCRIPTION PORTABLE OXYGEN TANKS FOR USE IN BACK PACK USES 3 Lpm WHEN ON PORTABLE TANKto use with exertion DX R79.81 4 Each 11 COMPOUNDED PRESCRIPTION EMERGENCY BACKUP OXYGEN TANK FOR WHEN PATIENT LOSES ELECTRICITY DX R79.81 1Each 11 COMPOUNDED PRESCRIPTION Oxygen supplies dx: R79.81 R06.02 1 Each 99 COMPOUNDED PRESCRIPTION CPAP supplies Dx: G47.[address] COMPOUNDED PRESCRIPTION Home Oxygen, 2 litres with cpap machine 1 Each 0 blood sugar diagnostic (ONETOUCH ULTRA TEST) test strip Test blood sugar(s) 4 times daily. Dx: Type2 DM - Uncontrolled E11.65 Insulin: Yes 200 Strip 11 Lancets (ACCU-CHEK FASTCLIX) lancets With Accuchek fastclix lancing device. Check sugars 4x/day Dx:e11.65 Insulin: Yes 200 Each 11 Current Facility-Administered Medications Medication Dose Route Frequency Provider Last Rate Last Admin perflutren lipid microspheres 1.3 mL in NaCl (PF) 0.9% 10 mL injection (DEFINITY) INTRAVENOUS DIRECTED PRN Shawanda May MD sodium chloride 0.9 % (flush) 10 mL (BD POSIFLUSH) 10 mL INTRAVENOUS DIRECTED PRN Shawanda May MD ALLERGIES: Seroquel [Quetiapine Fumarate] and Victoza [Liraglutide] PERSONAL HISTORY: Social History Tobacco Use Smoking status: Former Packs/day: 0.10 Years: 3.00 Pack years: 0.30 Types: Cigarettes Quit date: 04/25/1988 Years since quittin.2 Smokeless tobacco: Never Tobacco comments: No smoking in childhood home. Roomate of last 10 years smoked while living with patient. Vaping Use Vaping Use: Never used Substance Use Topics Alcohol use: No Drug use: No FAMILY HISTORY: FAMILY HISTORY Problem Relation Age of Onset Diabetes Mother Heart Mother Diabetes Father Heart Father Colon Cancer Sister Asthma No Family History REVIEW OF SYMPTOMS: negative except as noted above PHYSICAL EXAMINATION: VITALS: Blood pressure 120/60, weight 194 lb (88 kg), last menstrual period 04/10/2012. GENERAL: The patient is well nourished, well hydrated in no acute distress. , The patient is oriented to time, place, and person. NECK: Supple. No lynphadenopathy, normal thyroid, no thyromegaly. LUNGS: Clear to auscultation bilaterally. no wheezes, rhonchi or rales HEART: Regular rate and rhythm, Normal heart sounds, and No murmurs or gallops IMPRESSION: 67yo female with persistent right ovarian cyst - desires surgical intervention. PLAN: laparoscopic BSO and removal of right ovarian cyst Pt has been counseled on risks/benefits and alternatives of surgery including but not limited to anesthesia, bleeding, infection, injury to pelvic structures including bowel, bladder, ureters and vessels. Pt wishes to proceed with surgery at this time. I discussed with the patient that there is potential that this cyst could be borderline malignant or malignant which could require a potential second surgery for staging at a later date. I discussed with the patient that we will try to not rupture the cyst in the abdominal cavity however even gentle manipulation of the cyst could cause this we discussed that if this did occur this would change the staging for ovarian cancer. I did give the patient the option to see a minimally invasive specialist or FOOD EQUIPMENT SERVICE TECHNICIAN oncologist if she desired but patient declined. Preoperative clearance was obtained and is on the chart. Pre and postoperative instructions were reviewed with the patient. I have reviewed and updated past medical and surgical history, medications and allergies Chyna Delacruz MD documented in this encounterTr[facility]06-[facility]-2023 Miscellaneous Notes* Telephone Encounter - Jane Lester RN - 07/16/2022 11:26 AM EDT Patient would like the 07/31 surgery date. Pre Op scheduled for 07/21/22 * Telephone Encounter - Bethany Mendes LPN - 07/15/2022 10:40 AM EDT Left message to call office. Next available surgery date at [facility] is 07/31/2022. Patient will need a pre-operative appointment with Dr. Delacruz scheduled. documented in this encounterTr[facility]05-02-2023 Miscellaneous Notes* Telephone Encounter - Jane Lester RN - 06/16/2022 5:00 PM EDT Patient notified. Jane Lester RN * Telephone Encounter - Chyna Delacruz MD - 06/16/2022 4:25 PM EDT Pt will need to get surgical clearance. We can discuss at her appt on 07/03 and then arrange from there. We are booking into late July/August. * Telephone Encounter - Gudelia Quispe RN - 06/16/2022 4:06 PM EDT I called patient and she wishes to proceed with surgical intervention. She had already scheduled anappointment for July 03. Does she need to keep that appointment to discuss or can we proceed to schedule? Please advise * Telephone Encounter - Gudelia Quispe RN - 06/16/2022 4:06 PM EDT ----- Message from Chyna Delacruz MD sent at 06/16/2022 3:53 PM EDT ----- Overall cyst is stable -slightly larger but still considered a simple cyst. It is under 10 cm surgical intervention does not need to be performed unless desired. Or unless she is symptomatic with significant pain. Recommendation is to follow this cyst yearly unless surgical intervention is performed. Ultrasound ordered place for next year. documented in this encounterTr[facility]05-02-2023 Miscellaneous Notes* Telephone Encounter - Marycruz Fields Pss - 06/16/2022 2:35 PM EDT The patient's appointment on August 17 had to be rescheduled. Called the patient and rescheduled the appointment. Mailed reminder. documented in this encounterTr[facility]04-28-2023 Miscellaneous Notes* Telephone Encounter - Kailey Diamond Ma - 06/12/2022 8:37 AM EDT Patient notified. * Telephone Encounter - Inna Small APRN.CNP - 06/12/2022 8:08 AM EDT Please let patient know to stop her metformin at this time to see if her diarrhea improves even more. Thank you Inna Small APRN.CNP documented in this encounterTr[facility]04-27-2023 Instructions* Patient Instructions* Inna Small APRN.CNP - 06/11/2022 9:10 AM EDT Call insurance to find out cost for bone density On days you get tired keep a diary of what you ate and what your blood sugar is. documented in this encounterTr[facility]04-27-2023 History of Present illness Narrative* Inna Small APRN.CNP - 06/11/2022 8:52 AM EDT CC: Patient presents with: Recheck: 3 month follow up HPI Melanie Bird is a 67 year old female who presents today for routine follow up. DIABETES MELLITUS: Ms. Bird denies excessive thirst or increased frequency of urination, chest pain or dyspnea , numbness, tingling or pain in extremities, new or unusual visual symptoms, low sugar/hypoglycemic reactions, weight loss/gain, lightheadedness/dizziness, and bowel changes/loose stools. Follows a diabetic diet most of the time. She is compliant with medication(s) and is tolerating med(s) without any side effects. She reports checking her glucose on a four times a day schedule withsugars in the less 200s range. Patient's last HgA1C was Hemoglobin A1C (%) Date Value 03/03/2022 6.8 07/30/2021 7.0 11/15/2020 7.0 09/02/2020 7.2 Hemoglobin A1C (POCT) (%) Date Value 12/11/2021 6.7 ) Last Ophthalmology exam was within the past 12 months but has appointment with Dr Meier in July. Last Podiatry exam was within the past 3 months, sees Dr. Ash for diabetic foot care and examinations. Has had an improvement in her chronic diarrhea with decrease in metformin. Reports getting tired easily a few times a week. Will just suddenly get tired and then go lay down but not able to fall asleep. Will lay down and feel better after a while. When this occurs it is usually after lunch. Yesterday for lunch had a subway sandwich and water. Wears 2L of oxygen nightly but now longer needs cpap as she had a sleep study confirming no longer needed. Sees Dr. López for sleep medicine. REVIEW OF SYSTEMS General: no fevers, no chills, no night sweats, no recurrent infections, no change in appetite, no change in energy, and no significant changes in weight Respiratory: no cough, no wheezing, no shortness of breath, no hemoptysis Cardiovascular: no chest pain, no chest pressure, no palpitations, and no swelling GI: no vomiting or abdominal pain and improvement in diarrhea Neurologic: No headache, weakness, numbness, tingling, dizziness, memory loss, syncope. PAST MEDICAL HISTORY Diagnosis Date Depression Diabetes mellitus type 2, uncontrolled High cholesterol History of colon polyps History of gallstones IBS (irritable bowel syndrome) Obesity 04/25/2013 BMI 48.43 ARIANA (obstructive sleep apnea) 03/06/2013 Parkinson disease (HCC) PAST SURGICAL HISTORY Procedure Laterality Date ANAL SPHINCTEROPLASTY SPHINCTEROPLASTY ANAL W/ IMPLANT ARTIFICIAL SPHINCTER ADULT BARIATRIC SURGERY HX 05/28/2021 CATARACT EXTRACTION HX Bilateral 08/2012 COLONOSCOPY GEN ANES 04/2019 INCISE FINGER TENDON SHEATH 12/20/2012 Left 3rd trigger finger release MANIPULATION KNEE JOINT UNDER GENERAL ANESTHESIA Left 01/23/2022 Left knee manipulation under anesthesia PAST SURGICAL HISTORY OF 06/2012 Interstim PAST SURGICAL HISTORY OF Right trigger thumb REMOVAL GALLBLADDER 2000 TOTAL KNEE REPLACEMENT Left 10/29/2021 Left robotic total knee replacement ALLERGIES Seroquel [Quetiapine Fumarate] and Victoza [Liraglutide] MEDICATIONS fexofenadine (SEFERINO) 180 mg tablet^Take 1 tablet by mouth once daily.^Disp: 28 tablet^Rfl: 3 pen needle, diabetic (NOVOFINE PLUS) 32 gauge x 1/6^Use to inject insulin once daily^Disp: 100 Each^Rfl: 1 insulin glargine U-300 conc (TOULEISA SOLOSTAR U-300 INSULIN) 300 unit/mL (1.5 mL)^Inject 16 Units subcutaneously every morning.^Disp: 4.5 mL^Rfl: 1 dapagliflozin (FARXIGA) 5 mg tablet^Take 1 tablet by mouth daily with breakfast.^Disp: 30 tablet^Rfl: 11 metFORMIN ER (GLUCOPHAGE XR) 500 mg 24 hr tablet^Take 1 tablet by mouth daily with breakfast.^Disp:30 tablet^Rfl: 11 zolpidem (AMBIEN) 5 mg tablet^Take 1 tablet by mouth at bedtime as needed for sedation for up to 90days. TAKE 1 TABLET BY MOUTH AT BEDTIME NEEDED FOR SEDATION Do not start before May 20, 2022.^Disp: 30 tablet^Rfl: 2 acyclovir (ZOVIRAX) 400 mg tablet^Take 1 tablet by mouth twice daily.^Disp: 60 tablet^Rfl: 11 rOPINIRole (REQUIP) 0.5 mg tablet^TAKE 1 TABLET BY MOUTH TWICE A DAY (NOON AND BEDTIME)^Disp: 60 tablet^Rfl: 11 Cholecalciferol, Vitamin D3, (VITAMIN D-3) 50 mcg (2,000 unit) cap^Take 1 capsule by mouth once daily.^Disp: 30 capsule^Rfl: 11 semaglutide (OZEMPIC) 2 mg/dose (8 mg/3 mL) pen injector^Inject 2 mg subcutaneously one time a week.^Disp: 3 mL^Rfl: 3 sertraline (ZOLOFT) 50 mg tablet^Take 1 tablet by mouth once daily.^Disp: 30 tablet^Rfl: 5 Blood-Glucose Meter,Continuous (DEXCOM G6 RN QUALITY) misc^Use to check blood sugar at least four (4)times daily.^Disp: 1 Each^Rfl: 0 Blood-Glucose Transmitter (DEXCOM G6 TRANSMITTER) tere^Apply new transmitter every 90 days. Clean transmitter with an alcohol swab with each sensor change.^Disp: 1 Each^Rfl: 3 Blood-Glucose Sensor (DEXCOM G6 SENSOR) tere^Apply new sensor every ten (10) days to abdomen.^Disp:9 Each^Rfl: 3 ascorbic acid, vitamin C, (VITAMIN C) 500 mg tablet^Take 1 tablet by mouth once daily.^Disp: 30 tablet^Rfl: 11 magnesium oxide (MAG-OX) 400 mg (241.3 mg magnesium) tablet^Take 2 tablets by mouth once daily.^Disp: 60 tablet^Rfl: 11 atorvastatin (LIPITOR) 20 mg tablet^Take 1 tablet by mouth once daily.^Disp: 28 tablet^Rfl: 11 flash glucose sensor (FREESTYLE IZABELLA 2 SENSOR) kit^Use to monitor blood sugars 4 times daily^Disp:6 Each^Rfl: 3 gabapentin (NEURONTIN) 600 mg tablet^Take 3 tablets by mouth daily at bedtime for 180 days.^Disp: 90 tablet^Rfl: 5 gabapentin (NEURONTIN) 300 mg capsule^Take 3 capsules by mouth daily at lunch^Disp: 90 capsule^Rfl:5 Surgical Lubricant Jelly gel^For MRI Female Pelvis, MRI department to provide. Administer intra-vaginal Surgilube immediately prior the MRI procedure (total amount to patient toleranace).^Disp: 5 g^Rfl: 1 OXYGEN, HOME THERAPY,^2 L/min by Mask route daily at bedtime. CPAP 2L at night^Disp: ^Rfl: cloNIDine HCl (CATAPRES) 0.1 mg tablet^Take 1 tablet by mouth once daily.^Disp: ^Rfl: omeprazole (PRILOSEC) 20 mg capsule^Take 20 mg by mouth once daily.^Disp: ^Rfl: AUSTEDO 6 mg tab^Take 6 mg by mouth twice daily.^Disp: ^Rfl: Lancets lancets^Test Four times a day. Insulin Dep? Yes E11.9 DM 2^Disp: 200 Each^Rfl: 4 blood sugar diagnostic (BLOOD GLUCOSE TEST) test strip^Test Four times a day. Insulin Dep? Yes E11.9 DM 2^Disp: 300 Strip^Rfl: 3 calcium carbonate 600 mg-cholecalciferol 200 units (CALCARB 600 WITH VITAMIN D) 600 mg(1,500mg) -200 unit tab^Take 1 tablet by mouth twice daily.^Disp: 60 tablet^Rfl: 5 wheat dextrin (BENEFIBER SUGAR FREE, DEXTRIN,) 3 gram/4 gram powd^1/2 tablespoon per day x2 weeks. Then increase by 1/2 tablespoon every 2 weeks until you are taking 3 tablespoons per day in divided doses.^Disp: 248 g^Rfl: 3 polyethylene glycol 3350 (MIRALAX, GLYCOLAX) 17 gram/dose powder^Take 17 g by mouth twice daily. Drink a mix of 1 scoop in 8oz of water/beverage once daily as needed for constipation.^Disp: 1 Bottle^Rfl: 2 docusate sodium (COLACE) 100 mg capsule^Take 1 capsule by mouth twice daily as needed for Constipation.^Disp: 60 capsule^Rfl: 1 COMPOUNDED PRESCRIPTION^PORTABLE OXYGEN TANKS FOR USE IN BACK PACK USES 3 Lpm WHEN ON PORTABLE TANKto use with exertion DX R79.81^Disp: 4 Each^Rfl: 11 COMPOUNDED PRESCRIPTION^EMERGENCY BACKUP OXYGEN TANK FOR WHEN PATIENT LOSES ELECTRICITY DX R79.81^Disp: 1 Each^Rfl: 11 CPAP^Initiate AutoPAP @ 10/20 cm of water with EPR of 3 , humidification. Mask (per patient preference) optional chin strap (if indicated) , filters, tubing, humidifier and lifetime supplies. Dx. ARIANA 327.23^Disp: 1 Device^Rfl: 0 COMPOUNDED PRESCRIPTION^Oxygen supplies dx: R79.81 R06.02^Disp: 1 Each^Rfl: 99 COMPOUNDED PRESCRIPTION^CPAP supplies Dx: G47.33^Disp: 1 Box^Rfl: 99 COMPOUNDED PRESCRIPTION^Home Oxygen, 2 litres with cpap machine^Disp: 1 Each^Rfl: 0 blood sugar diagnostic (ONETOUCH ULTRA TEST) test strip^Test blood sugar(s) 4 times daily. Dx: Type2 DM - Uncontrolled E11.65 Insulin: Yes^Disp: 200 Strip^Rfl: 11 Lancets (ACCU-CHEK FASTCLIX) lancets^With Accuchek fastclix lancing device. Check sugars 4x/day Dx:e11.65 Insulin: Yes^Disp: 200 Each^Rfl: 11 FAMILY HISTORY Problem Relation Age of Onset Diabetes Mother Heart Mother Diabetes Father Heart Father Colon Cancer Sister Asthma No Family History Social History Tobacco Use Smoking status: Former Packs/day: 0.10 Years: 3.00 Pack years: 0.30 Types: Cigarettes Quit date: 04/25/1988 Years since quittin.1 Smokeless tobacco: Never Tobacco comments: No smoking in childhood home. Roomate of last 10 years smoked while living with patient. Vaping Use Vaping Use: Never used Substance Use Topics Alcohol use: No Drug use: No PHYSICAL EXAM BP 122/68 Pulse 68 Resp 16 Wt 91.2 kg (201 lb) LMP 04/10/2012 (Approximate) BMI 34.50 kg/m General Appearance: well appearing, in no acute distress, alert Skin: Skin color, texture, turgor normal for age; Eyes: conjunctiva pink and moist, no icterus, sclera white, non-injected Neck: Thyroid normal size and symmetric without palpable nodules, Neck supple, No adenopathy Lymph nodes: No cervical lymphadenopathy and No supraclavicular lymphadenopathy Lungs: Lungs clear to auscultation. No wheezing, rhonchi, rales. Heart: RRR without murmur, gallop, or rubs. No ectopy Health maintenance reviewed with patient: DIABETIC FOOT EXAM due on 09/20/2020 PNEUMOCOCCAL: 65+(2 - PCV) due on 09/21/2020 BONE DENSITY Never done ADVANCE DIRECTIVE DISCUSSION Never done DILATED RETINAL EXAM due on 05/27/2022 URINE ALBUMIN:CREATININE RATIO due on 07/30/2022 HBA1C due on 08/31/2022 ANNUAL PCP TEAM CHRONIC DISEASE VISIT due on 03/13/2023 MAMMOGRAM due on 04/16/2023 LDL CHOLESTEROL due on 05/15/2023 COLORECTAL CANCER SCREENING due on 09/19/2024 DTAP,TDAP,TD(5 - Td or Tdap) due on 10/03/2030 INFLUENZA Completed DEPRESSION ASSESSMENT Completed HEPATITIS C SCREENING Completed SHINGRIX VACCINE Completed COVID-19 VACCINE Completed HIV SCREENING Discontinued DATA REVIEWED: Most recent labs ASSESSMENT/PLAN: 1. Diabetes mellitus type 2 (HCC) - ICD9: 250.00, ICD10: E11.9 (primary diagnosis) - Worsening control but recent increase in tresiba by pharmacology. Will contact clinical pharmacist to discuss stopping metformin as decreasing it has started improvement of chronic diarrhea and I would like to stop this medication completely if possible - Continue current medications - Blood glucose monitoring on a four times daily schedule - Counseled on healthy diet and regular exercise - Discussed need for and benefit of weight loss. BMI 34.50 kg/(m^2) - HEMOGLOBIN A1C (POC) - TOULEISA SOLOSTAR U-300 INSULIN 300 UNIT/ML (1.5 ML) SUBCUTANEOUS PEN - keep upcoming appointment with clinical pharmacist and follow up in 4 months 2. Chronic diarrhea - ICD9: 787.91, ICD10: K52.9 - see above - improving with decrease in metformin. 3. Other fatigue - ICD9: 780.79, ICD10: R53.83 - possible blood sugar spike after lunch. Does not happen every day so patient needs to keep diary of what she ate/drank for lunch and what her glucose is at sudden onset of fatigue. Prescription instructions reviewed with patient as applicable. Potential red flag symptoms discussed with the patient. Reviewed appropriate action plan to take if red flag symptoms occur. Patient agreeable to treatment plan. Inna Small APRN.CNP [facility] Miscellaneous Notes* Telephone Encounter - Myriam Karimi RN - 06/05/2022 11:57 AM EDT Medication refill requested by Pharmacy Please review and advise. Requested Prescriptions Pending Prescriptions Disp Refills fexofenadine (SEFERINO) 180 mg tablet 28 tablet 3 Sig: Take 1 tablet by mouth once daily. Last encounter with this provider: 03/13/2022 Next appt: 06/11/2022 Last 1 Encounter BP Readings: Date: BP: 03/13/2022 118/70 WBC (k/uL) Date Value 05/14/2022 7.80 Hemoglobin (g/dL) Date Value 05/14/2022 16.0 (H) Platelet Count (k/uL) Date Value 05/14/2022 234 Glucose (mg/dL) Date Value 05/14/2022 230 (H) BUN (mg/dL) Date Value 05/14/2022 9 Creatinine (mg/dL) Date Value 05/14/2022 0.62 Sodium (mmol/L) Date Value 05/14/2022 141 Potassium (mmol/L) Date Value 05/14/2022 4.2 Calcium, Total (mg/dL) Date Value 05/14/2022 10.2 Alkaline Phosphatase (U/L) Date Value 05/14/2022 78 Bilirubin, Total (mg/dL) Date Value 05/14/2022 0.7 AST (U/L) Date Value 05/14/2022 33 ALT (U/L) Date Value 05/14/2022 50 (H) Cholesterol, Total (mg/dL) Date Value 05/14/2022 137 Triglyceride (mg/dL) Date Value 05/14/2022 135 TSH (mIU/L) Date Value 03/03/2022 1.130 Current Outpatient Medications on File Prior to Visit Medication Sig pen needle, diabetic (NOVOFINE PLUS) 32 gauge x 1/6 Use to inject insulin once daily insulin glargine U-300 conc (TOUJEO SOLOSTAR U-300 INSULIN) 300 unit/mL (1.5 mL) Inject 16 Units subcutaneously every morning. dapagliflozin (FARXIGA) 5 mg tablet Take 1 tablet by mouth daily with breakfast. metFORMIN ER (GLUCOPHAGE XR) 500 mg 24 hr tablet Take 1 tablet by mouth daily with breakfast. zolpidem (AMBIEN) 5 mg tablet Take 1 tablet by mouth at bedtime as needed for sedation for up to 90days. TAKE 1 TABLET BY MOUTH AT BEDTIME NEEDED FOR SEDATION Do not start before May 20, 2022. acyclovir (ZOVIRAX) 400 mg tablet Take 1 tablet by mouth twice daily. rOPINIRole (REQUIP) 0.5 mg tablet TAKE 1 TABLET BY MOUTH TWICE A DAY (NOON AND BEDTIME) Cholecalciferol, Vitamin D3, (VITAMIN D-3) 50 mcg (2,000 unit) cap Take 1 capsule by mouth once daily. semaglutide (OZEMPIC) 2 mg/dose (8 mg/3 mL) pen injector Inject 2 mg subcutaneously one time a week. sertraline (ZOLOFT) 50 mg tablet Take 1 tablet by mouth once daily. Blood-Glucose Meter,Continuous (DEXCOM G6 RN QUALITY) misc Use to check blood sugar at least four (4)times daily. Blood-Glucose Transmitter (DEXCOM G6 TRANSMITTER) tere Apply new transmitter every 90 days. Clean transmitter with an alcohol swab with each sensor change. Blood-Glucose Sensor (DEXCOM G6 SENSOR) tere Apply new sensor every ten (10) days to abdomen. ascorbic acid, vitamin C, (VITAMIN C) 500 mg tablet Take 1 tablet by mouth once daily. magnesium oxide (MAG-OX) 400 mg (241.3 mg magnesium) tablet Take 2 tablets by mouth once daily. fexofenadine (SEFERINO) 180 mg tablet Take 1 tablet by mouth once daily. atorvastatin (LIPITOR) 20 mg tablet Take 1 tablet by mouth once daily. flash glucose sensor (FREESTYLE IZABELLA 2 SENSOR) kit Use to monitor blood sugars 4 times daily gabapentin (NEURONTIN) 600 mg tablet Take 3 tablets by mouth daily at bedtime for 180 days. gabapentin (NEURONTIN) 300 mg capsule Take 3 capsules by mouth daily at lunch Surgical Lubricant Jelly gel For MRI Female Pelvis, MRI department to provide. Administer intra-vaginal Surgilube immediately prior the MRI procedure (total amount to patient toleranace). OXYGEN, HOME THERAPY, 2 L/min by Mask route daily at bedtime. CPAP 2L at night cloNIDine HCl (CATAPRES) 0.1 mg tablet Take 1 tablet by mouth once daily. omeprazole (PRILOSEC) 20 mg capsule Take 20 mg by mouth once daily. AUSTEDO 6 mg tab Take 6 mg by mouth twice daily. Lancets lancets Test Four times a day. Insulin Dep? Yes E11.9 DM 2 blood sugar diagnostic (BLOOD GLUCOSE TEST) test strip Test Four times a day. Insulin Dep? Yes E11.9 DM 2 calcium carbonate 600 mg-cholecalciferol 200 units (CALCARB 600 WITH VITAMIN D) 600 mg(1,500mg) -200 unit tab Take 1 tablet by mouth twice daily. wheat dextrin (BENEFIBER SUGAR FREE, DEXTRIN,) 3 gram/4 gram powd 1/2 tablespoon per day x2 weeks. Then increase by 1/2 tablespoon every 2 weeks until you are taking 3 tablespoons per day in divided doses. polyethylene glycol 3350 (MIRALAX, GLYCOLAX) 17 gram/dose powder Take 17 g by mouth twice daily. Drink a mix of 1 scoop in 8oz of water/beverage once daily as needed for constipation. docusate sodium (COLACE) 100 mg capsule Take 1 capsule by mouth twice daily as needed for Constipation. COMPOUNDED PRESCRIPTION PORTABLE OXYGEN TANKS FOR USE IN BACK PACK USES 3 Lpm WHEN ON PORTABLE TANKto use with exertion DX R79.81 COMPOUNDED PRESCRIPTION EMERGENCY BACKUP OXYGEN TANK FOR WHEN PATIENT LOSES ELECTRICITY DX R79.81 CPAP Initiate AutoPAP @ 10/20 cm of water with EPR of 3 , humidification. Mask (per patient preference) optional chin strap (if indicated) , filters, tubing, humidifier and lifetime supplies. Dx. ARIANA 327.23 COMPOUNDED PRESCRIPTION Oxygen supplies dx: R79.81 R06.02 COMPOUNDED PRESCRIPTION CPAP supplies Dx: G47.33 COMPOUNDED PRESCRIPTION Home Oxygen, 2 litres with cpap machine blood sugar diagnostic (ONETOUCH ULTRA TEST) test strip Test blood sugar(s) 4 times daily. Dx: Type2 DM - Uncontrolled E11.65 Insulin: Yes Lancets (ACCU-CHEK FASTCLIX) lancets With Accuchek fastclix lancing device. Check sugars 4x/day Dx:e11.65 Insulin: Yes Current Facility-Administered Medications on File Prior to Visit Medication perflutren lipid microspheres 1.3 mL in NaCl (PF) 0.9% 10 mL injection (DEFINITY) sodium chloride 0.9 % (flush) 10 mL (BD POSIFLUSH) documented in this encounterTr[facility]04-14-2023 Miscellaneous Notes* Telephone Encounter - LES Floyd - 05/29/2022 9:15 AM EDT Telephoned the patient regarding missed appt. Left a message. 2nd attempt * Telephone Encounter - LES Floyd - 05/27/2022 2:14 PM EDT Telephoned the patient regarding missed appt. Left a message. 1st attempt * Telephone Encounter - Donis Harris RPh - 05/27/2022 12:50 PM EDT Primary Care Pharmacy Rescheduling Outreach Call center, please contact patient and reschedule telephone visit for Diabetes management within ~2 week(s). (Visit length: 30 minutes) Thank you, oDnis Harris RPh 05/27/2022 1:30 PM documented in this encounterTr[facility]04-11-2023 [facility] POST WEIGHT LOSS SURGERY FOLLOW UP Patient: Melanie Bird Service Date: 05/26/2022 Patient is 12 month(s) s/p RnY Gastric Bypass Today's Metrics: Post-Surgical Weight Loss Date: 05/26/22 Height: 5' 4 (162.6 cm) Weight: 199 lb 12.8 oz (90.6 kg) BMI: 34.29 Weight Change: -17 lbs Total Weight Change: -95.2 lbs % EBWL: 58% Comments: 12M Pre-op Weight Metrics: Pre-Surgical Weight Loss Initial Height: 5' 4 (162.6 cm) Initial Weight: 292 lb 6.4 oz (133 kg) Initial BMI: 50.18 [place] Body Weight: 131 lb (59.4 kg) Surgery Date: 05/28/21 Pre-Surgical Height: 5' 4 (162.6 cm) Pre-Surgical Weight: 295 lb (134 kg) Pre Surgery BMI: 50.63 Weight to Lose: 164 lb Post-op Weight Metrics: %EBWL: % EBWL: 58% Weight Change Since Last Visit: Weight Change: -17 lbs Weight Change from Highest Pre-op Weight: Total Weight Change: -95.2 lbs Patient has the following questions: C/O excessive gas Pain: Patient rates pain on scale 0-10 as: 0 Exercise Compliance: Exercising: yes If yes: Type: walking Times per week: 7 Min per session: 15 minutes Falls Risk Assessment Patient does not take medications which affect BP or mental status Patient does not have newly prescribed or changed dosage of medications within past 30 days which affect BP or mental status Patient has not fallen in the past 2 months Patient does not demonstrate unsteady gait Patient uses the following ambulatory assistive devices: none Patient states the presence of the following traits which increases risk of fall: none Patient is on home O2 Labs Completed: yes - If NO, patient instructed to get labs drawn today or FELICIA If YES: Labs completed at [facility]? yes If yes see Labs Tab 05/14/2022 Labs completed at Non-[facility] facility? N/A If yes see Encounters Tab - Orders only - Historical Provider - Date: Com[facility] Telephone encounter Note* Telephone Encounter - Katerine Padgett RD - 05/26/2022 10:16 AM EDT Labs addressed by GALE in OV 05/26. [facility] [place] Work Phone: 1(647) 993-526104-11-2023 Miscellaneous Notes* Telephone Encounter - Katerine Padgett RD - 05/26/2022 10:16 AM EDT Labs addressed by GALE in OV 05/26. * Telephone Encounter - Marcelle Moreau RD - 05/22/2022 2:54 PM EDT Called and left VM for pt to return the call. Referred pt to previously sent [employer] message. * Telephone Encounter - Marcelle Moreau RD - 05/19/2022 7:29 AM EDT DOS 05/28/2021 LRYGB TB 05/14/2022 Paper labs Hgb: 16.0 (H) Hemct: 48.1 (H) Iron: 85 (WNL) Ferritin: 150 (WNL) Vitamin D: 76.4 (range: 31.0-80) Sent pt Trelliehart message regarding labs. documented in this [place] [address]-11-2023 History of Present illness Narrative* Jasbir Iyer MD - 05/26/2022 10:10 AM EDT Images from the original note were not included. HPI, PHYSICAL EXAMINATION & PLAN POST-OP HPI: Patient here today for 12 month post-weight loss surgery follow up LRYGB, HH Repair The patient is feeling well. Denies nausea, vomiting, dysphagia, or any GERD Sx. Currently is not on any PPI. Patient states diet and exercise is going fairly well. Currently is eating 65-75 gm/day protein, and is compliant with prescribed multivitamins and supplements. Drinking about 64 oz H20 daily. Eating 3 meals and 3 snacks daily. Review of Systems Constitutional: Negative for fatigue and fever. HENT: Negative for congestion, rhinorrhea and trouble swallowing. Respiratory: Negative for cough, chest tightness and shortness of breath. Cardiovascular: Negative for chest pain, palpitations and leg swelling. Gastrointestinal: Positive for diarrhea. Negative for abdominal distention, abdominal pain, blood in stool, constipation and nausea. Genitourinary: Negative for dysuria, flank pain, frequency and urgency. Musculoskeletal: Negative for arthralgias, back pain and myalgias. Skin: Negative for color change and rash. Neurological: Negative for light-headedness and headaches. Psychiatric/Behavioral: Negative for dysphoric mood. The patient is not nervous/anxious. Vital signs are stable. Labs were Completed. All labs were: ALT 50, Glucose 230, B12 1,462, Hbg 16,Vit D 76.4 Physical Examination: BP 103/64 Pulse 71 Temp 36.3 C (97.4 F) Resp 16 Ht 5' 4 (1.626 m) Comment: BCC HGT CHK Wt 199 lb 12.8 oz (90.6 kg) BMI 34.30 kg/m General: This patient is awake, alert, and oriented, and is in no apparent distress. Abdomen: Obese, soft, non-tender, non-distended without masses/ No evidence of abdominal hernia / Incisions consistent with previous surgeries. Extremities: No cyanosis, clubbing or edema/ No calf tenderness/No restrictions of movement, is ambulatory without assistance. Neurological: Intact x 4 extremities, no focal deficits notes. Skin: No rashes or lesions noted. Rectal: Deferred Current Medications: Patient's Medications New Prescriptions NYSTATIN (MYCOSTATIN) 642511 UNIT/GM POWDER Apply 1 application topically 2 times daily. Apply topically to affected area two times daily. Previous Medications ACYCLOVIR (ZOVIRAX) 400 MG TABLET 400 mg at noon and 400 mg in the evening. ALOSETRON (LOTRONEX) 1 MG TABLET 1 mg at noon and 1 mg in the evening. ASCORBIC ACID (VITAMIN C) 500 MG TABLET Take 500 mg by mouth in the morning. ATORVASTATIN (LIPITOR) 20 MG TABLET 20 mg before bedtime. AUSTEDO 6 MG TABLET 12 mg at noon and 12 mg in the evening. CALCIUM CITRATE PO Take 500 mg by mouth in the morning and 500 mg at noon and 500 mg before bedtime. CHOLECALCIFEROL (VITAMIN D-3) 50 MCG (2000 UT) CAPSULE Take 2,000 Units by mouth in the morning. CLONIDINE (CATAPRES) 0.1 MG TABLET Take 1 tablet by mouth in the morning. CYANOCOBALAMIN [address] 1 Dose under the tongue. DAPAGLIFLOZIN (FARXIGA) 5 MG Take 1 tablet by mouth daily (with breakfast). FEXOFENADINE (SEFERINO) 180 MG TABLET Take 180 mg by mouth in the morning. GABAPENTIN (NEURONTIN) 300 MG CAPSULE 900 mg before bedtime. GABAPENTIN (NEURONTIN) 600 MG TABLET 1,800 mg Nightly. INSULIN GLARGINE (TOUJEO SOLOSTAR) 300 UNIT/ML INJECTION Inject 16 Units under the skin. METFORMIN XR (GLUCOPHAGE-XR) 500 MG 24 HR TABLET 500 mg before bedtime. OXYGEN (O2) GAS Inhale 2 L/min Nightly. via nasal canula OZEMPIC, 2 MG/DOSE, 8 MG/3ML SOLUTION PEN-INJECTOR 1 (one) time per week. ROPINIROLE (REQUIP) 0.5 MG TABLET 0.5 mg at noon and 0.5 mg in the evening. SERTRALINE (ZOLOFT) 50 MG TABLET 50 mg before bedtime. TRAZODONE (DESYREL) 50 MG TABLET 50 mg Nightly. ZINC 25 MG TABLET Take 25 mg by mouth every other day. ZOLPIDEM (AMBIEN) 5 MG TABLET 5 mg Nightly. Modified Medications No medications on file Discontinued Medications ZINC 25 MG TABLET Take 1 tablet by mouth daily. Medications ordered during this encounter: Outpatient Encounter Medications as of 05/26/2022 Medication Sig Dispense Refill acyclovir (Zovirax) 400 MG tablet 400 mg at noon and 400 mg in the evening. alosetron (Lotronex) 1 MG tablet 1 mg at noon and 1 mg in the evening. ascorbic acid (Vitamin C) 500 MG tablet Take 500 mg by mouth in the morning. atorvastatin (Lipitor) 20 MG tablet 20 mg before bedtime. [place] 6 MG tablet 12 mg at noon and 12 mg in the evening. CALCIUM CITRATE PO Take 500 mg by mouth in the morning and 500 mg at noon and 500 mg before bedtime. cholecalciferol (Vitamin D-3) 50 MCG (1999 UT) capsule Take 2,000 Units by mouth in the morning. cloNIDine (Catapres) 0.1 MG tablet Take 1 tablet by mouth in the morning. Cyanocobalamin [address] 1 Dose under the tongue. dapagliflozin (Farxiga) 5 MG Take 1 tablet by mouth daily (with breakfast). fexofenadine (Seferino) 180 MG tablet Take 180 mg by mouth in the morning. gabapentin (Neurontin) 300 MG capsule 900 mg before bedtime. gabapentin (Neurontin) 600 MG tablet 1,800 mg Nightly. insulin glargine (Toujeo SoloStar) 300 UNIT/ML injection Inject 16 Units under the skin. metFORMIN XR (Glucophage-XR) 500 MG 24 hr tablet 500 mg before bedtime. oxygen (O2) gas Inhale 2 L/min Nightly. via nasal canula Ozempic, 2 MG/DOSE, 8 MG/3ML solution pen-injector 1 (one) time per week. rOPINIRole (Requip) 0.5 MG tablet 0.5 mg at noon and 0.5 mg in the evening. sertraline (Zoloft) 50 MG tablet 50 mg before bedtime. traZODone (Desyrel) 50 MG tablet 50 mg Nightly. zinc 25 MG tablet Take 25 mg by mouth every other day. zolpidem (Ambien) 5 MG tablet 5 mg Nightly. nystatin (Mycostatin) 220679 UNIT/GM powder Apply 1 application topically 2 times daily. Apply topically to affected area two times daily. 60 g 2 [DISCONTINUED] zinc 25 MG tablet Take 1 tablet by mouth daily. No facility-administered encounter medications on file as of 05/26/2022. Orders Placed This Encounter Procedures Zinc Folate Iron Ferritin Magnesium Vitamin D 25 hydroxy Vitamin B12 Vitamin B1, whole blood Lipid panel Comprehensive metabolic panel CBC CBC Iron Ferritin Vitamin D 25 hydroxy Zinc Folate Iron Ferritin Magnesium Vitamin D 25 hydroxy Vitamin B12 Vitamin B1, whole blood Lipid panel Comprehensive metabolic panel CBC Visit Diagnoses: 1. ARIANA (obstructive sleep apnea) 2. Type 2 diabetes mellitus without complication, unspecified whether terminal block assembler insulin use (HCC) 3. Intestinal malabsorption, unspecified type 4. Deficiency of multiple nutrient elements 5. High cholesterol 6. Class 1 obesity due to excess calories with serious comorbidity and body mass index (BMI) of 34.0 to 34.9 in adult Plan: 1). Diet and Exercise: (See RD recommendations) 2). Continue to monitor for signs and symptoms of GERD / OFF PPI 3). Labs: unremarkable 4). Psych concerns : No 5). Excessive skin concerns: No - will discuss at 18 month visit once weight stability achieved. 6). If patient is a woman of childrearing age- 18-50. We discussed the importance of contraception during the first 12-18 months post op, and we discussed that fertility will increase following the procedure. Advised patient to discuss with her OBGYN regarding contraception. Patient counseled with good understanding verbalized. 7). Weight loss: Post-op Weight Metrics: %EBWL: % EBWL: 58% Weight Change Since Last Visit: Weight Change: -17 lbs Weight Change from Highest Pre-op Weight: Total Weight Change: -95.2 lbs 8). DM II- Well controlled. Has been able to reduce insulin requirements signiticantly. 9). ARIANA- Much improved. No longer requiring CPAP. Using 2L 02 at HS. 10). Intertrigo- Under breast folds. Using Hydrocortisone for this. Will prescribe Nystatin. Counseled to stop the steroid. The patient met with the dietitian today to review our vitamin and protein recommendations. Increase activity as recommended, the wounds are healed, no evidence of abdominal wall hernias. No nausea vomiting or dysphagia noted. Appropriate bowel function, discussed with her regarding contacting us for any questions or concerns. The lab slip was signed for the next visit, labs from 05/14/22 were reviewed and are within normal limits. Follow-up 18 months postop. I personally performed the evaluation and management of Melanie Soniya Bird in the development of a treatment plan for this patient. I personally interviewed the patient and performed an individual physical examination. In addition, I discussed the patient's condition and treatment options with them. I have also reviewed and agree with the past medical, family and social history unless otherwise noted. All of the patient's questions were answered. I discussed/counseled the patient regarding the postoperative care plan for this patient. The patient was seen and examined independently and relevant data reviewed by myself. A full chart review wasperformed. Patient Care Team: Modesta Daley MD as PCP - General Jasbir Iyer MD as Surgeon (General Surgery) * Lady Mendez LPN - 05/26/2022 10:10 AM EDT [facility] PROGRESS [facility] POST WEIGHT LOSS SURGERY FOLLOW UP Patient: Melanie Bird Service Date: 05/26/2022 Patient is 12 month(s) s/p RnY Gastric Bypass Today's Metrics: Post-Surgical Weight Loss Date: 05/26/22 Height: 5' 4 (162.6 cm) Weight: 199 lb 12.8 oz (90.6 kg) BMI: 34.29 Weight Change: -17 lbs Total Weight Change: -95.2 lbs % EBWL: 58% Comments: 12M Pre-op Weight Metrics: Pre-Surgical Weight Loss Initial Height: 5' 4 (162.6 cm) Initial Weight: 292 lb 6.4 oz (133 kg) Initial BMI: 50.18 [place] Body Weight: 131 lb (59.4 kg) Surgery Date: 05/28/21 Pre-Surgical Height: 5' 4 (162.6 cm) Pre-Surgical Weight: 295 lb (134 kg) Pre Surgery BMI: 50.63 Weight to Lose: 164 lb Post-op Weight Metrics: %EBWL: % EBWL: 58% Weight Change Since Last Visit: Weight Change: -17 lbs Weight Change from Highest Pre-op Weight: Total Weight Change: -95.2 lbs Patient has the following questions: C/O excessive gas Pain: Patient rates pain on scale 0-10 as: 0 Exercise Compliance: Exercising: yes If yes: Type: walking Times per week: 7 Min per session: 15 minutes Falls Risk Assessment Patient does not take medications which affect BP or mental status Patient does not have newly prescribed or changed dosage of medications within past 30 days which affect BP or mental status Patient has not fallen in the past 2 months Patient does not demonstrate unsteady gait Patient uses the following ambulatory assistive devices: none Patient states the presence of the following traits which increases risk of fall: none Patient is on home O2 Labs Completed: yes - If NO, patient instructed to get labs drawn today or FELICIA If YES: Labs completed at [facility]? yes If yes see Labs Tab 05/14/2022 Labs completed at Non-[facility] facility? N/A If yes see Encounters Tab - Orders only - Historical Provider - Date: Completed by: Lady Mendez LPN * Katerine Padgett RD - 05/26/2022 10:10 AM EDT [facility] > 6 MONTH POST-OPERATIVE DIETITIAN VISIT Date: 05/26/22 Patient's weight decreased by: 95.2 lbs Patient doesconsume 5-6 small meals daily Patient s portions are adequate for current diet: -1 cup Protein requirements discussed- currently consuming not tracking grams protein daily. Current protein sources: lean cuisine, cheese stick, beans Recommendations: measure portions, track protein Fluid requirements discussed. Current Fluid Intake: 64+ Patient does drink sugar-free, caffeine-free and carbonation-free fluids only. Patient does wait 30 minutes before and after meals to drink Exercise activities discussed. Patient does currently exercise. She was reminded that regular exercise is critical part of a successful outcome following weight loss surgery. Behavioral/Emotional changes reviewed. Patient doesfeel comfortable with changes in eating behaviors and associated emotional changes. She was reminded that psychological counseling is available through the [facility] post-[facility]. Recent Nutrient Concerns and Vitamin Supplementation Changes: vitamin D 76, to decrease to 1,000 international units every day. Pt agreeable. Compliant with vitamins. Hgb 16.0, iron WNL, ferritin WNL. Ensure well hydrated. Will let GEOTECHNICAL ENGINEERING TECHNICIAN/MD know. Pt to follow up with PCP regarding elevated Hgb. Will recheck in 3 months orders pended. Notes/Comments: pt c/o lots of gas. Eat slow, chew well, small sips, etc. Pt says it is constant, pt feels it is not related to food/fluid. Let let GEOTECHNICAL ENGINEERING TECHNICIAN/MD know. Visit completed by: Katerine Padgett RD documented in this encounterSTrinity Health System East [id number] Telephone encounter Note* Telephone Encounter - Marcelle Moreau RD - 05/22/2022 2:54 PM EDT Called and left VM for pt to return the call. Referred pt to previously sent Aviary message. [id number] Telephone encounter Note* Telephone Encounter - Marcelle Moreau RD - 05/19/2022 7:29 AM EDT DOS 05/28/2021 LRYGB TB 05/14/2022 Paper labs Hgb: 16.0 (H) Hemct: 48.1 (H) Iron: 85 (WNL) Ferritin: 150 (WNL) Vitamin D: 76.4 (range: 31.0-80) Sent pt Aviary message regarding labs. [facility] [id number] Miscellaneous Notes* Telephone Encounter - Donis Harris RPh - 05/15/2022 3:21 PM EDT Discussed with patient at 05/13 visit. Abby RyanD, BCACP Primary Care Clinical Pharmacist documented in this encounterTrinity Health System West Campus03-29-2023 History of Present illness Narrative* Donis Harris RPh - 05/13/2022 10:00 AM EDT Primary Care Pharmacy Visit CC (Reason for Consult): Diabetes Goal: A1c < 7% Last Collaborating Physician/DRY HEAT CABINET ATTENDANT Visit: 03/13/22 Melanie Bird is a 67 year old female presenting for follow up visit by telephone. Patient consents to pharmacy collaborative practice agreement. At last visit with pharmacy on 04/29/22 the followingchanges were made: Ozempic dose was increased. INTERIM HISTORY: Note most BG readings in the 200s Staying elevated, even with addition of Farxiga Started increased Ozempic 2 mg dose on Wednesday Receives her medications in monthly adherence packs, not able to increase Farxiga with this month'danna Also notes that on current dose of Faxiga, she is experiencing frequent urgency and urinary incontinence. Prefers to stop Farxiga Feels only insulin was effective at decreasing blood sugars, would like to try smaller pen needles GLYCEMIC CONTROL: Summary of CGM Findings: (last 14 days) 1- CGM recording is adequate for interpretation. 2- Average glucose is 228 mg/dL. 12 am - 6am - 185 mg/dL 6 am -12pm - 239 mg/dL 12 pm - 6 pm - 279 mg/dL 6 pm - 12 am 233 mg/dL 3- Total frequency of hypoglycemia: none 4- Nocturnal hypoglycemia was not noted. 5- Hyperglycemic episodes: 75% 6- Time in target range (70-180 mg/dL): 25% ROS: Patient denies CP, SOB, HATCH, blurred vision, dizziness or lightheadedness Patient denies nausea, vomiting, diarrhea, abdominal pain Patient denies symptoms of hypoglycemia (sweating, anxiety, palpitations, hunger, and tremor) Patient denies symptoms of hyperglycemia (polyuria, polydipsia, polyphagia) Patient denies potential medication adverse effects MEDICATIONS: Pill bottles are not present. Adherence: reports missed doses. [place] [facility], [place] Rx coverage: Medicare, Medicaid Affordability: none Diabetes supplies: One Touch ACTIVE PROBLEM LIST Diabetes Mellitus Type 2 ([facility]) Ptsd (Post-Traumatic Stress Disorder) Rls (Restless Legs Syndrome) Low Oxygen Saturation Tardive Dyskinesia Hyperlipidemia With Target Ldl Less Than 70 Ariana (Obstructive Sleep Apnea) Vitamin D Deficiency Ibs (Irritable Bowel Syndrome) Respiratory Abnormality, Unspecified Hypertonicity of Bladder Cataracts, Bilateral Pedal Edema Benign Paroxysmal Positional Vertigo Plantar Fasciitis, Right Congenital Pes Cavus Primary Osteoarthritis of Left Knee Chronic Pain of Left Knee Obesity, Class III, BMI >= 40 (morbid obesity) ([facility]) E66.01 Incontinence of Feces Wound Disruption Vertigo History of Implantation of Artificial Sphincter Grief Reaction Wound of Gluteal Cleft Parkinson's Disease ([facility]) S/P Gastric Sleeve Procedure Gerd (Gastroesophageal Reflux Disease) Swelling PAST MEDICAL HISTORY Diagnosis Date Depression Diabetes mellitus type 2, uncontrolled High cholesterol History of colon polyps History of gallstones IBS (irritable bowel syndrome) Obesity 04/25/2013 BMI 48.43 ARIANA (obstructive sleep apnea) 03/06/2013 Parkinson disease ([facility]) ALLERGIES Allergen Reactions Seroquel [Quetiapin* Mental Status Change Victoza [Liraglutid* GI Upset Current Outpatient Medications Medication Sig dapagliflozin (FARXIGA) 5 mg tablet Take 1 tablet by mouth daily with breakfast. metFORMIN ER (GLUCOPHAGE XR) 500 mg 24 hr tablet Take 1 tablet by mouth daily with breakfast. [START ON 05/20/2022] zolpidem (AMBIEN) 5 mg tablet Take 1 tablet by mouth at bedtime as needed for sedation for up to 90 days. TAKE 1 TABLET BY MOUTH AT BEDTIME NEEDED FOR SEDATION Do not start before May 20, 2022. acyclovir (ZOVIRAX) 400 mg tablet Take 1 tablet by mouth twice daily. rOPINIRole (REQUIP) 0.5 mg tablet TAKE 1 TABLET BY MOUTH TWICE A DAY (NOON AND BEDTIME) Cholecalciferol, Vitamin D3, (VITAMIN D-3) 50 mcg (2,000 unit) cap Take 1 capsule by mouth once daily. semaglutide (OZEMPIC) 2 mg/dose (8 mg/3 mL) pen injector Inject 2 mg subcutaneously one time a week. sertraline (ZOLOFT) 50 mg tablet Take 1 tablet by mouth once daily. Blood-Glucose Meter,Continuous (DEXCOM G6 RN QUALITY) misc Use to check blood sugar at least four (4)times daily. Blood-Glucose Transmitter (DEXCOM G6 TRANSMITTER) tere Apply new transmitter every 90 days. Clean transmitter with an alcohol swab with each sensor change. Blood-Glucose Sensor (DEXCOM G6 SENSOR) tere Apply new sensor every ten (10) days to abdomen. ascorbic acid, vitamin C, (VITAMIN C) 500 mg tablet Take 1 tablet by mouth once daily. magnesium oxide (MAG-OX) 400 mg (241.3 mg magnesium) tablet Take 2 tablets by mouth once daily. fexofenadine (SEFERINO) 180 mg tablet Take 1 tablet by mouth once daily. atorvastatin (LIPITOR) 20 mg tablet Take 1 tablet by mouth once daily. flash glucose sensor (FREESTYLE IZABELLA 2 SENSOR) kit Use to monitor blood sugars 4 times daily gabapentin (NEURONTIN) 600 mg tablet Take 3 tablets by mouth daily at bedtime for 180 days. gabapentin (NEURONTIN) 300 mg capsule Take 3 capsules by mouth daily at lunch Surgical Lubricant Jelly gel For MRI Female Pelvis, MRI department to provide. Administer intra-vaginal Surgilube immediately prior the MRI procedure (total amount to patient toleranace). insulin glargine U-300 conc (TOUJEO SOLOSTAR U-300 INSULIN) 300 unit/mL (1.5 mL) Inject 16 Units subcutaneously every morning. OXYGEN, HOME THERAPY, 2 L/min by Mask route daily at bedtime. CPAP 2L at night cloNIDine HCl (CATAPRES) 0.1 mg tablet Take 1 tablet by mouth once daily. omeprazole (PRILOSEC) 20 mg capsule Take 20 mg by mouth once daily. AUSTEDO 6 mg tab Take 6 mg by mouth twice daily. Lancets lancets Test Four times a day. Insulin Dep? Yes E11.9 DM 2 blood sugar diagnostic (BLOOD GLUCOSE TEST) test strip Test Four times a day. Insulin Dep? Yes E11.9 DM 2 calcium carbonate 600 mg-cholecalciferol 200 units (CALCARB 600 WITH VITAMIN D) 600 mg(1,500mg) -200 unit tab Take 1 tablet by mouth twice daily. wheat dextrin (BENEFIBER SUGAR FREE, DEXTRIN,) 3 gram/4 gram powd 1/2 tablespoon per day x2 weeks. Then increase by 1/2 tablespoon every 2 weeks until you are taking 3 tablespoons per day in divided doses. polyethylene glycol 3350 (MIRALAX, GLYCOLAX) 17 gram/dose powder Take 17 g by mouth twice daily. Drink a mix of 1 scoop in 8oz of water/beverage once daily as needed for constipation. docusate sodium (COLACE) 100 mg capsule Take 1 capsule by mouth twice daily as needed for Constipation. COMPOUNDED PRESCRIPTION PORTABLE OXYGEN TANKS FOR USE IN BACK PACK USES 3 Lpm WHEN ON PORTABLE TANKto use with exertion DX R79.81 COMPOUNDED PRESCRIPTION EMERGENCY BACKUP OXYGEN TANK FOR WHEN PATIENT LOSES ELECTRICITY DX R79.81 CPAP Initiate AutoPAP @ 10/20 cm of water with EPR of 3 , humidification. Mask (per patient preference) optional chin strap (if indicated) , filters, tubing, humidifier and lifetime supplies. Dx. ARIANA 327.23 COMPOUNDED PRESCRIPTION Oxygen supplies dx: R79.81 R06.02 COMPOUNDED PRESCRIPTION CPAP supplies Dx: G47.33 COMPOUNDED PRESCRIPTION Home Oxygen, 2 litres with cpap machine blood sugar diagnostic (ONETOUCH ULTRA TEST) test strip Test blood sugar(s) 4 times daily. Dx: Type2 DM - Uncontrolled E11.65 Insulin: Yes insulin needles, DISPOSABLE, (ULTICARE PEN NEEDLE) 31 gauge x 5/16 ndle UAD to inject insulins 5 times daily. Lancets (ACCU-CHEK FASTCLIX) lancets With [employer] fastclix lancing device. Check sugars 4x/day Dx:e11.65 Insulin: Yes Current Facility-Administered Medications Medication Dose Route Frequency perflutren lipid microspheres 1.3 mL in NaCl (PF) 0.9% 10 mL injection (DEFINITY) INTRAVENOUS DIRECTED PRN sodium chloride 0.9 % (flush) 10 mL (BD POSIFLUSH) 10 mL INTRAVENOUS DIRECTED PRN EXAM: Last 3 Encounter BP Readings: Date: BP: 03/13/2022 118/70 03/10/2022 118/72 02/02/2022 136/82 Wt: 94.3 kg (208 lb) BMI: 35.70 kg/(m^2) LABS: Lab Results Component Value Date HBA1C 6.8 03/03/2022 HBA1C 6.7 12/11/2021 HBA1C 7.0 07/30/2021 HBA1C 7.0 11/15/2020 HBA1C 7.2 09/02/2020 HBA1C 8.2 06/03/2020 CMP: Glucose 99 03/03/2022 BUN 9 03/03/2022 Creatinine, Whole Blood (iSTAT) 0.59 03/03/2022 Sodium 143 03/03/2022 Potassium 4.6 03/03/2022 Chloride 103 03/03/2022 CO2 31 03/03/2022 Protein, Total 5.9 03/03/2022 Albumin 4.0 03/03/2022 Calcium 10.0 03/03/2022 Alkaline Phosphatase 58 03/03/2022 Bilirubin, Total 0.7 03/03/2022 AST 38 03/03/2022 ALT 37 03/03/2022 Serum creatinine: 0.59 mg/dL 03/03/22 0834 Estimated creatinine clearance: 105.8 mL/min No results found for: GFR eGFR- (no units) Date Value 11/15/2020 >60 Lab Results Component Value Date CHOL 111 03/03/2022 CHOL 138 11/15/2020 LDL 44 03/03/2022 LDL 72 11/15/2020 HDL 48 03/03/2022 HDL 45 11/15/2020 TG 96 03/03/2022 TG 103 11/15/2020 The ASCVD Risk score (Vamsi GANDHI, et al., 2019) failed to calculate for the following reasons: The valid total cholesterol range is 130 to 320 mg/dL Albumin/Creat Ratio (mg/g) Date Value 07/30/2021 <10 PHARMACOTHERAPY ASSESSMENT/PLAN: 1. Diabetes mellitus type 2 (HCC) - ICD9: 250.00, ICD10: E11.9 A1c goal < 7%; goal (last A1c 6.8%); SMBG have become elevated since holding insulin. Since taking Farxiga, pt experiencing frequent urgency and urinary incontinence therefore will stop Farxiga. Today, will resume daily insulin due to increase in BG readings. Of note, patient not able to tolerate higher metformin dose due to GI upset. Resume Toujeo 16 units once daily Stop Farxiga Continue Ozempic 2 mg once weekly Continue metformin 500 mg once daily Follow up: Patient is scheduled to see PCP team on 06/11/22. Patient to follow up with pharmD on 05/27/22. Patient verbalized understanding of instructions. Donis Harris PharmD, BCACP Primary Care Clinical Pharmacist The majority of the pharmacy visit (> 50%) was spent counseling and/or coordinating care for thepatient. [Telephonic] time was 20 minutes. documented in this encounterTrinity Health System [facility] Campus03-24-2023 Miscellaneous Notes* Telephone Encounter - Radha Spencer RN - 05/08/2022 9:45 AM EDT Patient has been identified by name and date of : Yes, Radha Spencer RN Date 05/08/2022 Time 9:46 am Pharmacy phones for refill(s): Requested Prescriptions Pending Prescriptions Disp Refills dapagliflozin (FARXIGA) 5 mg tablet 30 tablet 1 Sig: Take 1 tablet by mouth daily with breakfast. metFORMIN ER (GLUCOPHAGE XR) 500 mg 24 hr tablet 30 tablet 0 Sig: Take 1 tablet by mouth daily with breakfast. zolpidem (AMBIEN) 5 mg tablet 30 tablet 2 Sig: Take 1 tablet by mouth at bedtime as needed for sedation for up to 90 days. TAKE 1 TABLET BY MOUTH AT BEDTIME NEEDED FOR SEDATION acyclovir (ZOVIRAX) 400 mg tablet 56 tablet 11 Sig: Take 1 tablet by mouth twice daily. rOPINIRole (REQUIP) 0.5 mg tablet 56 tablet 11 Sig: TAKE 1 TABLET BY MOUTH TWICE A DAY (NOON AND BEDTIME) Cholecalciferol, Vitamin D3, (VITAMIN D-3) 50 mcg (2,000 unit) cap 28 capsule 11 Sig: Take 1 capsule by mouth once daily. Aruna reports they package prescriptions a month in advance if it looks like they are requesting refills too soon that is why. Date of last office visit with pcp: 03/13/2022 Future appt: 06/11/2022 Last 2 Encounter Wt Readings: Date: Wt: 03/13/2022 94.3 kg (208 lb) 03/10/2022 95.3 kg (210 lb) Previous labs/tests for medication: Diabetes: Hemoglobin A1C (%) Date Value 03/03/2022 6.8 07/30/2021 7.0 11/15/2020 7.0 09/02/2020 7.2 Hemoglobin A1C (POCT) (%) Date Value 12/11/2021 6.7 Blood Pressure: BUN (mg/dL) Date Value 03/03/2022 9 11/15/2020 18 Sodium (mmol/L) Date Value 03/03/2022 143 11/15/2020 140 Last 1 Encounter BP Readings: Date: BP: 03/13/2022 118/70 Liver Function: ALT (U/L) Date Value 03/03/2022 37 11/15/2020 17 AST (U/L) Date Value 03/03/2022 38 11/15/2020 18 Please advise. Thank you. Radha Spencer RN documented in this encounterTrinity Health [facility] Campus03-17-2023 Miscellaneous Notes* Telephone Encounter - Candace Villagomez PHYSICAL THERAPY DIRECTOR - 05/01/2022 8:57 AM EDT Images from the original note were not included. Electronic P completed and approved. Prior authorization approved Payer: [employer] Case: [id number], Status: Approved, Coverage Starts on: 12/31/2021 12:00:00 AM, Coverage Ends on: 04/01/2023 12:00:00 AM. Approval Details Authorization number: [id number] Authorized from December 31, 2021 to April 01, 2023 Electronic appeal: Not supported View History Medication Being Authorized Blood-Glucose Transmitter (DEXCOM G6 TRANSMITTER) tere Apply new transmitter every 90 days. Clean transmitter with an alcohol swab with each sensor change. Dispense: 1 Each Refills: 3 documented in this encounterTrinity Health System [facility] Campus03-15-2023 Miscellaneous Notes* Telephone Encounter - Robert Lopez Ma - 04/29/2022 1:14 PM EDT Spoke with [facility]. Apparently this was already sent out to patient. Closing encounter. * Telephone Encounter - Robert Lopez Ma - 04/13/2022 4:44 PM EST Unable to contact Katarina - will try again at a later time. * Telephone Encounter - Inna Small APRN.CNP - 04/13/2022 12:49 PM EST It should be 9 for 90 days. Thank you Inna Small 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 * Telephone Encounter - Soniya Perez RN - 04/13/2022 10:29 AM EST Everardo- [facility] PA- reports she is trying to approve the PA for the Dexcom sensors, but PA is written for 9 sensors for 30 days, and the Rx is written for 9 sensors for 90 days. Asking provider to clarify which one she should use. Please phone Everardo with reply. documented in this encounterTrinity Health System [facility] Campus03-15-2023 History of Present illness Narrative* Donis Harris RP - 04/29/2022 10:00 AM EDT Primary Care Pharmacy Visit CC (Reason for Consult): Diabetes Goal: A1c < 7% Last Collaborating Physician/DRY HEAT CABINET ATTENDANT Visit: 03/13/22 Melanie Bird is a 67 year old female presenting for follow up visit by telephone. Patient consents to pharmacy collaborative practice agreement. At last visit with pharmacy on 04/08/22 the followingchanges were made: Toujeo was held, and Trulicity was switched to Ozempic. On 04/22 Mailsuitet message, patient reported elevated BG readings and Farxiga was initiated. INTERIM HISTORY: Has started Farxiga 5 days ago, tolerating well so far Notes BG readings are remaining elevated Confirms has switched to Ozempic Picked up new box of 4 pen supply GLYCEMIC CONTROL: Summary of CGM Findings: (last 14 days) 1- CGM recording is adequate for interpretation. 2- Average glucose is 196 mg/dL. 12 am - 6am - 162 mg/dL 6 am -12pm - 246 mg/dL 12 pm - 6 pm - 212 mg/dL 6 pm - 12 am 198 mg/dL 3- Total frequency of hypoglycemia: none 4- Nocturnal hypoglycemia was not noted. 5- Hyperglycemic episodes: 50% 6- Time in target range (70-180 mg/dL): 50% ROS: Patient denies CP, SOB, HATCH, blurred vision, dizziness or lightheadedness Patient denies nausea, vomiting, diarrhea, abdominal pain Patient denies symptoms of hypoglycemia (sweating, anxiety, palpitations, hunger, and tremor) Patient denies symptoms of hyperglycemia (polyuria, polydipsia, polyphagia) Patient denies potential medication adverse effects MEDICATIONS: Pill bottles are not present. Adherence: reports missed doses. [place] [facility], [place] Rx coverage: Medicare, Medicaid Affordability: none Diabetes supplies: One Touch ACTIVE PROBLEM LIST Diabetes Mellitus Type 2 (Hcc) Ptsd (Post-Traumatic Stress Disorder) Rls (Restless Legs Syndrome) Low Oxygen Saturation Tardive Dyskinesia Hyperlipidemia With Target Ldl Less Than 70 Ariana (Obstructive Sleep Apnea) Vitamin D Deficiency Ibs (Irritable Bowel Syndrome) Respiratory Abnormality, Unspecified Hypertonicity of Bladder Cataracts, Bilateral Pedal Edema Benign Paroxysmal Positional Vertigo Plantar Fasciitis, Right Congenital Pes Cavus Primary Osteoarthritis of Left Knee Chronic Pain of Left Knee Obesity, Class III, BMI >= 40 (morbid obesity) ([facility]) E66.01 Incontinence of Feces Wound Disruption Vertigo History of Implantation of Artificial Sphincter Grief Reaction Wound of Gluteal Cleft Parkinson's Disease ([facility]) S/P Gastric Sleeve Procedure Gerd (Gastroesophageal Reflux Disease) Swelling PAST MEDICAL HISTORY Diagnosis Date Depression Diabetes mellitus type 2, uncontrolled High cholesterol History of colon polyps History of gallstones IBS (irritable bowel syndrome) Obesity 04/25/2013 BMI 48.43 ARIANA (obstructive sleep apnea) 03/06/2013 Parkinson disease ([facility]) ALLERGIES Allergen Reactions Seroquel [Quetiapin* Mental Status Change Victoza [Liraglutid* GI Upset Current Outpatient Medications Medication Sig dapagliflozin (FARXIGA) 5 mg tablet Take 1 tablet by mouth daily with breakfast. metFORMIN ER (GLUCOPHAGE XR) 500 mg 24 hr tablet Take 1 tablet by mouth daily with breakfast. sertraline (ZOLOFT) 50 mg tablet Take 1 tablet by mouth once daily. Blood-Glucose Meter,Continuous (DEXCOM G6 RN QUALITY) misc Use to check blood sugar at least four (4)times daily. Blood-Glucose Transmitter (DEXCOM G6 TRANSMITTER) tere Apply new transmitter every 90 days. Clean transmitter with an alcohol swab with each sensor change. Blood-Glucose Sensor (DEXCOM G6 SENSOR) tere Apply new sensor every ten (10) days to abdomen. semaglutide (OZEMPIC) 1 mg/dose (4 mg/3 mL) pen Inject 1 mg subcutaneously one time a week. ascorbic acid, vitamin C, (VITAMIN C) 500 mg tablet Take 1 tablet by mouth once daily. magnesium oxide (MAG-OX) 400 mg (241.3 mg magnesium) tablet Take 2 tablets by mouth once daily. zolpidem (AMBIEN) 5 mg tablet Take 1 tablet by mouth at bedtime as needed for sedation for up to 90days. TAKE 1 TABLET BY MOUTH AT BEDTIME NEEDED FOR SEDATION Do not start before February 26, 2022. fexofenadine (SEFERINO) 180 mg tablet Take 1 tablet by mouth once daily. atorvastatin (LIPITOR) 20 mg tablet Take 1 tablet by mouth once daily. flash glucose sensor (FREESTYLE IZABELLA 2 SENSOR) kit Use to monitor blood sugars 4 times daily gabapentin (NEURONTIN) 600 mg tablet Take 3 tablets by mouth daily at bedtime for 180 days. gabapentin (NEURONTIN) 300 mg capsule Take 3 capsules by mouth daily at lunch Surgical Lubricant Jelly gel For MRI Female Pelvis, MRI department to provide. Administer intra-vaginal Surgilube immediately prior the MRI procedure (total amount to patient toleranace). insulin glargine U-300 conc (TOUJEO SOLOSTAR U-300 INSULIN) 300 unit/mL (1.5 mL) Inject 16 Units subcutaneously every morning. OXYGEN, HOME THERAPY, 2 L/min by Mask route daily at bedtime. CPAP 2L at night cloNIDine HCl (CATAPRES) 0.1 mg tablet Take 1 tablet by mouth once daily. acyclovir (ZOVIRAX) 400 mg tablet Take 1 tablet by mouth twice daily. rOPINIRole (REQUIP) 0.5 mg tablet TAKE 1 TABLET BY MOUTH TWICE A DAY (NOON AND BEDTIME) Cholecalciferol, Vitamin D3, (VITAMIN D-3) 50 mcg (2,000 unit) cap Take 1 capsule by mouth once daily. omeprazole (PRILOSEC) 20 mg capsule Take 20 mg by mouth once daily. AUSTEDO 6 mg tab Take 6 mg by mouth twice daily. Lancets lancets Test Four times a day. Insulin Dep? Yes E11.9 DM 2 blood sugar diagnostic (BLOOD GLUCOSE TEST) test strip Test Four times a day. Insulin Dep? Yes E11.9 DM 2 calcium carbonate 600 mg-cholecalciferol 200 units (CALCARB 600 WITH VITAMIN D) 600 mg(1,500mg) -200 unit tab Take 1 tablet by mouth twice daily. wheat dextrin (BENEFIBER SUGAR FREE, DEXTRIN,) 3 gram/4 gram powd 1/2 tablespoon per day x2 weeks. Then increase by 1/2 tablespoon every 2 weeks until you are taking 3 tablespoons per day in divided doses. polyethylene glycol 3350 (MIRALAX, GLYCOLAX) 17 gram/dose powder Take 17 g by mouth twice daily. Drink a mix of 1 scoop in 8oz of water/beverage once daily as needed for constipation. docusate sodium (COLACE) 100 mg capsule Take 1 capsule by mouth twice daily as needed for Constipation. COMPOUNDED PRESCRIPTION PORTABLE OXYGEN TANKS FOR USE IN BACK PACK USES 3 Lpm WHEN ON PORTABLE TANKto use with exertion DX R79.81 COMPOUNDED PRESCRIPTION EMERGENCY BACKUP OXYGEN TANK FOR WHEN PATIENT LOSES ELECTRICITY DX R79.81 CPAP Initiate AutoPAP @ 10/20 cm of water with EPR of 3 , humidification. Mask (per patient preference) optional chin strap (if indicated) , filters, tubing, humidifier and lifetime supplies. Dx. ARIANA 327.23 COMPOUNDED PRESCRIPTION Oxygen supplies dx: R79.81 R06.02 COMPOUNDED PRESCRIPTION CPAP supplies Dx: G47.33 COMPOUNDED PRESCRIPTION Home Oxygen, 2 litres with cpap machine blood sugar diagnostic (ONETOUCH ULTRA TEST) test strip Test blood sugar(s) 4 times daily. Dx: Type2 DM - Uncontrolled E11.65 Insulin: Yes insulin needles, DISPOSABLE, (ULTICARE PEN NEEDLE) 31 gauge x / ndle UAD to inject insulins 5 times daily. Lancets (ACCU-CHEK FASTCLIX) lancets With [employer] fastclix lancing device. Check sugars 4x/day Dx:e11.65 Insulin: Yes Current Facility-Administered Medications Medication Dose Route Frequency perflutren lipid microspheres 1.3 mL in NaCl (PF) 0.9% 10 mL injection (DEFINITY) INTRAVENOUS DIRECTED PRN sodium chloride 0.9 % (flush) 10 mL (BD POSIFLUSH) 10 mL INTRAVENOUS DIRECTED PRN EXAM: Last 3 Encounter BP Readings: Date: BP: 03/13/2022 118/70 03/10/2022 118/72 02/02/2022 136/82 Wt: 94.3 kg (208 lb) BMI: 35.70 kg/(m^2) LABS: Lab Results Component Value Date HBA1C 6.8 03/03/2022 HBA1C 6.7 12/11/2021 HBA1C 7.0 07/30/2021 HBA1C 7.0 11/15/2020 HBA1C 7.2 09/02/2020 HBA1C 8.2 06/03/2020 CMP: Glucose 99 03/03/2022 BUN 9 03/03/2022 Creatinine, Whole Blood (iSTAT) 0.59 03/03/2022 Sodium 143 03/03/2022 Potassium 4.6 03/03/2022 Chloride 103 03/03/2022 CO2 31 03/03/2022 Protein, Total 5.9 03/03/2022 Albumin 4.0 03/03/2022 Calcium 10.0 03/03/2022 Alkaline Phosphatase 58 03/03/2022 Bilirubin, Total 0.7 03/03/2022 AST 38 03/03/2022 ALT 37 03/03/2022 Serum creatinine: 0.59 mg/dL 03/03/22 0834 Estimated creatinine clearance: 105.8 mL/min No results found for: GFR eGFR- (no units) Date Value 11/15/2020 >60 Lab Results Component Value Date CHOL 111 03/03/2022 CHOL 138 11/15/2020 LDL 44 03/03/2022 LDL 72 11/15/2020 HDL 48 03/03/2022 HDL 45 11/15/2020 TG 96 03/03/2022 TG 103 11/15/2020 The ASCVD Risk score (Vamsi GANDHI, et al., 2019) failed to calculate for the following reasons: The valid total cholesterol range is 130 to 320 mg/dL Albumin/Creat Ratio (mg/g) Date Value 07/30/2021 <10 PHARMACOTHERAPY ASSESSMENT/PLAN: 1. Uncontrolled type 2 diabetes mellitus with hyperglycemia (HCC) - ICD9: 250.02, ICD10: E11.65 A1c goal < 7%; goal (last A1c 6.8%); SMBG have become elevated since holding insulin. Recently started Farxiga. Will plan to continue Farxiga at current dose and will optimize Ozempic dose for improved BG control. Patient's goal is to remain off insulin, as daily injections are difficult with current tremor in hands. Of note, patient not able to tolerate higher metformin dose due to GI upset. Increase Ozempic 2 mg once weekly Continue Farxiga 5 mg once daily Continue metformin 500 mg once daily - SEMAGLUTIDE 2 MG/DOSE (8 MG/3 ML) SUBCUTANEOUS PEN INJECTOR Follow up: Patient is scheduled to see PCP team on 06/11/22. Patient to follow up with pharmD on 05/13/22. Patient verbalized understanding of instructions. Donis Harris PharmD, BCACP Primary Care Clinical Pharmacist The majority of the pharmacy visit (> 50%) was spent counseling and/or coordinating care for thepatient. [Telephonic] time was 18 minutes. documented in this encounterTr[facility]03-09-2023 Miscellaneous Notes* Telephone Encounter - Donis Harris RPh - 04/23/2022 2:50 PM EST Plan: Start Farxiga 5 mg once daily Continue Ozempic 1 mg once weekly (to replace Trulicity) Continue metformin 500 mg once daily The following approved medication requests have been transmitted electronically. Requested Prescriptions Signed Prescriptions Disp Refills dapagliflozin (FARXIGA) 5 mg tablet 30 tablet 1 Sig: Take 1 tablet by mouth daily with breakfast. Donis Harris RPh documented in this encounterTrinity [facility]03-08-2023 Miscellaneous Notes* Telephone Encounter - Neli Carr RN - 04/22/2022 9:48 AM EST Pt had called and told him that she was only taking Metformin 500 mg one tablet daily. He said he just needs an updated medication sent to the pharmacy. She also told him she isn't taking the Trujeo any more, but he said he could take care of that on his end. Patient has been identified by name and date of : Yes, Provider Dr Daley Date 04/22/22 Time 0953. Pharmacy phones for refill(s): Requested Prescriptions Pending Prescriptions Disp Refills metFORMIN ER (GLUCOPHAGE XR) 500 mg 24 hr tablet Sig: Take 1 tablet by mouth daily with breakfast. Date of last office visit in primary care: 03/13/22 Future visit: 06/11/22 Last 2 Encounter Wt Readings: Date: Wt: 03/13/2022 94.3 kg (208 lb) 03/10/2022 95.3 kg (210 lb) Previous labs/tests for medication: Diabetes: Hemoglobin A1C (%) Date Value 03/03/2022 6.8 07/30/2021 7.0 11/15/2020 7.0 09/02/2020 7.2 Hemoglobin A1C (POCT) (%) Date Value 12/11/2021 6.7 Please advise. Thank you. Neli Carr RN documented in this encounterTr[facility]03-02-2023 Miscellaneous Notes* Letter - Mammography Coordinator - 04/16/2022 2:45 PM EST April 17, 2022 PID: [id number] Melanie Bird [address] [place] [address] Dear Ms. Bird, We are pleased to inform you that the results of your recent breast imaging exam on 04/15/2022 are normal. Early detection of cancer is very important. We also understand recommendations regarding breast cancer screening are controversial. Please discuss with your primary care provider which strategy is best for you and whether a mammogram is right for you. Your imaging studies and report will be kept on file at [facility] as part of your permanent medical record and are available for your continuing care. Thank you for allowing us to help in meeting your health care needs. Sincerely, Dr. Magallanes Interpreting Radiologist [facility] (Normal over 40) documented in this encounterTrinity Health [facility] Campus03-01-2023 History of Present illness Narrative* Mckenzie Ge RT(R) - 04/15/2022 8:30 AM EST Radiology Service Progress Note PATIENT NAME: Melanie Bird DATE OF SERVICE: April 15, 2022 TIME: 8:39 AM PATIENT IDENTITY VERIFICATION COMPLETED USING TWO (2) IDENTIFIERS: Name and Date of confirmedby patient verbally. FALL SCREENING: Has the patient had 2 falls in the last year or 1 fall with injury or currently using an Ambulatory Assistive Device (Walker, Cane, Wheelchair, Crutches, etc.)? No PATIENT GENDER DATA: Female. status: : No status: NO. PATIENT RELEVANT IMPLANT DATA REVIEWED: Not Applicable RADIOLOGY DEPARTMENT: Mammography PERIPHERAL IV DATA: Not applicable SIGNED BY: RT Nydia(R) April 15, 2022 8:39 AM documented in this encounterTrinity Health [facility]02-23-2023 Miscellaneous Notes* Telephone Encounter - Soniya Perez RN - 04/09/2022 4:26 PM EST Patient has been identified by name and date of : Yes, Provider Dr. Daley Date 04-09-22 Time 4:28 pm Pharmacy phones for refill(s): Requested Prescriptions Pending Prescriptions Disp Refills sertraline (ZOLOFT) 50 mg tablet 30 tablet 5 Sig: Take 1 tablet by mouth once daily. Date of last office visit with pcp: 03-13-22. Next appt: 06-11-22 Last 2 Encounter Wt Readings: Date: Wt: 03/13/2022 94.3 kg (208 lb) 03/10/2022 95.3 kg (210 lb) Previous labs/tests for medication: Blood Pressure: BUN (mg/dL) Date Value 03/03/2022 9 11/15/2020 18 Sodium (mmol/L) Date Value 03/03/2022 143 11/15/2020 140 Last 1 Encounter BP Readings: Date: BP: 03/13/2022 118/70 Liver Function: ALT (U/L) Date Value 03/03/2022 37 11/15/2020 17 AST (U/L) Date Value 03/03/2022 38 11/15/2020 18 Please advise. Thank you. Soniya Perez RN documented in this encounterTrinity [facility]02-22-2023 Miscellaneous Notes* Telephone Encounter - Donis Harris RPh - 04/08/2022 3:30 PM EST Discussed options with patient today. She is starting Ozempic this Wednesday (switch from Trulicity due to backorder). We will hold insulin at this time with plan to increase Ozempic to 2 mg with next refill. If BG becomes elevated, we discussed starting an SGLT2 inh like Farxiga. Unfortunately, there are not many break options for stabilizing pen needle with tremor. She does not have ability to have someone assist with daily injections at home. An Insulin pump (like Omnipod) would still require steady hands to fill the insulin reservoir and place site, therefore I think adjusting to oral DM options is next best choice. If Ozempic injection becomes difficult, can consider switching to Rybelsus in the future. Thanks, Donis Harris, PharmD, BCACP Primary Care Clinical Pharmacist * Telephone Encounter - Inna Small APRN.CNP - 04/06/2022 4:32 PM EST Donis See patient's message. Any ideas? She has an appointment with you on 04/08/22 Thank you Inna Small 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 documented in this encounterTrinity Health [facility]02-22-2023 History of Present illness Narrative* Donis Harris RP - 04/08/2022 11:00 AM EST Primary Care Pharmacy Visit CC (Reason for Consult): Diabetes Goal: A1c < 7% Last Collaborating Physician/[employer]Y HEAT CABINET ATTENDANT Visit: 03/13/22 Melanie Bird is a 67 year old female presenting for follow up visit by telephone. Patient consents to pharmacy collaborative practice agreement. At last visit with pharmacy on 03/13/22 the followingchanges were made: no medication changes made. At phone encounter on 03/13, metformin dose was decrea sed due to GI upset. INTERIM HISTORY: Has decreased metformin to one tablet daily, has seen less GI upset Some days has harder time with insulin injections Depends on the tremor Was switched from Trulicity to Ozempic Has not started Ozempic yet, first injection will be on Wednesday Was notified by insurance that she was approved for Dexcom Current DM Medications: Metformin 500 mg once daily Ozempic 1 mg once weekly - not started yet, depleting Trulicity supply Insulin glargine U300 (Toujeo) 16 units daily GLYCEMIC CONTROL: Summary of CGM Findings: (last 7 days) 1- CGM recording is adequate for interpretation. 2- Average glucose is 150 mg/dL. 12 am - 6am - 101 mg/dL 6 am -12pm - 146 mg/dL 12 pm - 6 pm - 199 mg/dL 6 pm - 12 am 168 mg/dL 3- Total frequency of hypoglycemia: none 4- Nocturnal hypoglycemia was not noted. 5- Hyperglycemic episodes: 23% 6- Time in target range (70-180 mg/dL): 77% ROS: Patient denies CP, SOB, HATCH, blurred vision, dizziness or lightheadedness , diarrhea, abdominal pain Patient denies symptoms of hypoglycemia (sweating, anxiety, palpitations, hunger, and tremor) Patient denies symptoms of hyperglycemia (polyuria, polydipsia, polyphagia) Patient denies potential medication adverse effects MEDICATIONS: Pill bottles are not present. Adherence: reports missed doses. Pharmacy: [place], [place]; [facility], [place] Rx coverage: Medicare, Medicaid Affordability: none Diabetes supplies: One Touch ACTIVE PROBLEM LIST Diabetes Mellitus Type 2 ([facility]) Ptsd (Post-Traumatic Stress Disorder) Rls (Restless Legs Syndrome) Low Oxygen Saturation Tardive Dyskinesia Hyperlipidemia With Target Ldl Less Than 70 Ariana (Obstructive Sleep Apnea) Vitamin D Deficiency Ibs (Irritable Bowel Syndrome) Respiratory Abnormality, Unspecified Hypertonicity of Bladder Cataracts, Bilateral Pedal Edema Benign Paroxysmal Positional Vertigo Plantar Fasciitis, Right Congenital Pes Cavus Primary Osteoarthritis of Left Knee Chronic Pain of Left Knee Obesity, Class III, BMI >= 40 (morbid obesity) ([facility]) E66.01 Incontinence of Feces Wound Disruption Vertigo History of Implantation of Artificial Sphincter Grief Reaction Wound of Gluteal Cleft Parkinson's Disease ([facility]) S/P Gastric Sleeve Procedure Gerd (Gastroesophageal Reflux Disease) Swelling PAST MEDICAL HISTORY Diagnosis Date Depression Diabetes mellitus type 2, uncontrolled High cholesterol History of colon polyps History of gallstones IBS (irritable bowel syndrome) Obesity 04/25/2013 BMI 48.43 ARIANA (obstructive sleep apnea) 03/06/2013 Parkinson disease ([facility]) ALLERGIES Allergen Reactions Seroquel [Quetiapin* Mental Status Change Victoza [Liraglutid* GI Upset Current Outpatient Medications Medication Sig Blood-Glucose Meter,Continuous (DEXCOM G6 RN QUALITY) misc Use to check blood sugar at least four (4)times daily. Blood-Glucose Transmitter (DEXCOM G6 TRANSMITTER) tere Apply new transmitter every 90 days. Clean transmitter with an alcohol swab with each sensor change. Blood-Glucose Sensor (DEXCOM G6 SENSOR) tere Apply new sensor every ten (10) days to abdomen. semaglutide (OZEMPIC) 1 mg/dose (4 mg/3 mL) pen Inject 1 mg subcutaneously one time a week. ascorbic acid, vitamin C, (VITAMIN C) 500 mg tablet Take 1 tablet by mouth once daily. magnesium oxide (MAG-OX) 400 mg (241.3 mg magnesium) tablet Take 2 tablets by mouth once daily. zolpidem (AMBIEN) 5 mg tablet Take 1 tablet by mouth at bedtime as needed for sedation for up to 90days. TAKE 1 TABLET BY MOUTH AT BEDTIME NEEDED FOR SEDATION Do not start before February 26, 2022. metFORMIN ER (GLUCOPHAGE XR) 500 mg 24 hr tablet TAKE 2 TABLETS DAILY WITH MEALS fexofenadine (SEFERINO) 180 mg tablet Take 1 tablet by mouth once daily. atorvastatin (LIPITOR) 20 mg tablet Take 1 tablet by mouth once daily. flash glucose sensor (FREESTYLE IZABELLA 2 SENSOR) kit Use to monitor blood sugars 4 times daily gabapentin (NEURONTIN) 600 mg tablet Take 3 tablets by mouth daily at bedtime for 180 days. gabapentin (NEURONTIN) 300 mg capsule Take 3 capsules by mouth daily at lunch Surgical Lubricant Jelly gel For MRI Female Pelvis, MRI department to provide. Administer intra-vaginal Surgilube immediately prior the MRI procedure (total amount to patient toleranace). insulin glargine U-300 conc (TOUJEO SOLOSTAR U-300 INSULIN) 300 unit/mL (1.5 mL) Inject 16 Units subcutaneously every morning. sertraline (ZOLOFT) 50 mg tablet Take 1 tablet by mouth once daily. OXYGEN, HOME THERAPY, 2 L/min by Mask route daily at bedtime. CPAP 2L at night cloNIDine HCl (CATAPRES) 0.1 mg tablet Take 1 tablet by mouth once daily. acyclovir (ZOVIRAX) 400 mg tablet Take 1 tablet by mouth twice daily. rOPINIRole (REQUIP) 0.5 mg tablet TAKE 1 TABLET BY MOUTH TWICE A DAY (NOON AND BEDTIME) Cholecalciferol, Vitamin D3, (VITAMIN D-3) 50 mcg (2,000 unit) cap Take 1 capsule by mouth once daily. omeprazole (PRILOSEC) 20 mg capsule Take 20 mg by mouth once daily. AUSTEDO 6 mg tab Take 6 mg by mouth twice daily. Lancets lancets Test Four times a day. Insulin Dep? Yes E11.9 DM 2 blood sugar diagnostic (BLOOD GLUCOSE TEST) test strip Test Four times a day. Insulin Dep? Yes E11.9 DM 2 calcium carbonate 600 mg-cholecalciferol 200 units (CALCARB 600 WITH VITAMIN D) 600 mg(1,500mg) -200 unit tab Take 1 tablet by mouth twice daily. wheat dextrin (BENEFIBER SUGAR FREE, DEXTRIN,) 3 gram/4 gram powd 1/2 tablespoon per day x2 weeks. Then increase by 1/2 tablespoon every 2 weeks until you are taking 3 tablespoons per day in divided doses. polyethylene glycol 3350 (MIRALAX, GLYCOLAX) 17 gram/dose powder Take 17 g by mouth twice daily. Drink a mix of 1 scoop in 8oz of water/beverage once daily as needed for constipation. docusate sodium (COLACE) 100 mg capsule Take 1 capsule by mouth twice daily as needed for Constipation. COMPOUNDED PRESCRIPTION PORTABLE OXYGEN TANKS FOR USE IN BACK PACK USES 3 Lpm WHEN ON PORTABLE TANKto use with exertion DX R79.81 COMPOUNDED PRESCRIPTION EMERGENCY BACKUP OXYGEN TANK FOR WHEN PATIENT LOSES ELECTRICITY DX R79.81 CPAP Initiate AutoPAP @ 10/20 cm of water with EPR of 3 , humidification. Mask (per patient preference) optional chin strap (if indicated) , filters, tubing, humidifier and lifetime supplies. Dx. ARIANA 327.23 COMPOUNDED PRESCRIPTION Oxygen supplies dx: R79.81 R06.02 COMPOUNDED PRESCRIPTION CPAP supplies Dx: G47.33 COMPOUNDED PRESCRIPTION Home Oxygen, 2 litres with cpap machine blood sugar diagnostic (ONETOUCH ULTRA TEST) test strip Test blood sugar(s) 4 times daily. Dx: Type2 DM - Uncontrolled E11.65 Insulin: Yes insulin needles, DISPOSABLE, (ULTICARE PEN NEEDLE) 31 gauge x 5/16 ndle UAD to inject insulins 5 times daily. Lancets (ACCU-CHEK FASTCLIX) lancets With Plutonium Paintek fastclix lancing device. Check sugars 4x/day Dx:e11.65 Insulin: Yes Current Facility-Administered Medications Medication Dose Route Frequency perflutren lipid microspheres 1.3 mL in NaCl (PF) 0.9% 10 mL injection (DEFINITY) INTRAVENOUS DIRECTED PRN sodium chloride 0.9 % (flush) 10 mL (BD POSIFLUSH) 10 mL INTRAVENOUS DIRECTED PRN EXAM: Last 3 Encounter BP Readings: Date: BP: 03/13/2022 118/70 03/10/2022 118/72 02/02/2022 136/82 Wt: 94.3 kg (208 lb) BMI: 35.70 kg/(m^2) LABS: Lab Results Component Value Date HBA1C 6.8 03/03/2022 HBA1C 6.7 12/11/2021 HBA1C 7.0 07/30/2021 HBA1C 7.0 11/15/2020 HBA1C 7.2 09/02/2020 HBA1C 8.2 06/03/2020 CMP: Glucose 99 03/03/2022 BUN 9 03/03/2022 Creatinine, Whole Blood (iSTAT) 0.59 03/03/2022 Sodium 143 03/03/2022 Potassium 4.6 03/03/2022 Chloride 103 03/03/2022 CO2 31 03/03/2022 Protein, Total 5.9 03/03/2022 Albumin 4.0 03/03/2022 Calcium 10.0 03/03/2022 Alkaline Phosphatase 58 03/03/2022 Bilirubin, Total 0.7 03/03/2022 AST 38 03/03/2022 ALT 37 03/03/2022 Serum creatinine: 0.59 mg/dL 03/03/22 0834 Estimated creatinine clearance: 105.8 mL/min No results found for: GFR eGFR- (no units) Date Value 11/15/2020 >60 Lab Results Component Value Date CHOL 111 03/03/2022 CHOL 138 11/15/2020 LDL 44 03/03/2022 LDL 72 11/15/2020 HDL 48 03/03/2022 HDL 45 11/15/2020 TG 96 03/03/2022 TG 103 11/15/2020 The ASCVD Risk score (Vamsi GANDHI, et al., 2019) failed to calculate for the following reasons: The valid total cholesterol range is 130 to 320 mg/dL Albumin/Creat Ratio (mg/g) Date Value 07/30/2021 <10 PHARMACOTHERAPY ASSESSMENT/PLAN: 1. Uncontrolled type 2 diabetes mellitus with hyperglycemia (HCC) - ICD9: 250.02, ICD10: E11.65 A1c goal < 7%; goal (last A1c 6.8%); SMBG mostly at goal. denies s/sx hypoglycemia; denies s/sx hyperglycemia. Patient reports difficulty with Toujeo injections due to tremor. Will plan to hold insulin and start Ozempic 1 mg dose as prescribed to replace Trulicity. Discussed that if BG becomes elevated off insulin, then can consider adding SGLT2 inh. Of note, patient not able to tolerate higher metformin dose due to GI upset. Hold Toujeo Start Ozempic 1 mg once weekly (to replace Trulicity) Continue metformin 500 mg once daily Follow up: Patient is scheduled to see PCP team on 06/11/22. Patient to follow up with pharmD on 04/29/22. Patient verbalized understanding of instructions. Donis Harris PharmD, BCACP Primary Care Clinical Pharmacist The majority of the pharmacy visit (> 50%) was spent counseling and/or coordinating care for thepatient. [Telephonic] time was 20 minutes. documented in this encounterTrinity [facility]02-15-2023 Miscellaneous Notes* Telephone Encounter - Shawanda Mireles Ma - 04/01/2022 10:22 AM EST PA approved:Authorized from December 31, 2021 to April 01, 2023 Patient notified * Telephone Encounter - Candace Villagomez LPN - 04/01/2022 9:32 AM EST Electronic PA requested. * Telephone Encounter - Radha Spencer RN - 04/01/2022 8:57 AM EST Prior Authorization Documentation Prior authorization requested for the following: DEXCOM G RN QUALITY AND TRANSMITTER Provider: Dr. Daley/Donis Insurance Company Name: Primary: [employer] Medicare [facility] Patient ID number: [id number] Secondary: [id number] [facility] Telephone number: [phone] Radha Spencer RN documented in this encounterTrinity Health [facility]02-14-2023 Miscellaneous Notes* Telephone Encounter - Donis Harris RPh - 03/31/2022 4:51 PM EST The following approved medication requests have been transmitted electronically. Requested Prescriptions Signed Prescriptions Disp Refills Blood-Glucose Meter,Continuous (DEXCOM G6 RN QUALITY) misc 1 Each 0 Sig: Use to check blood sugar at least four (4) times daily. Blood-Glucose Transmitter (DEXCOM G6 TRANSMITTER) tere 1 Each 3 Sig: Apply new transmitter every 90 days. Clean transmitter with an alcohol swab with each sensor change. Blood-Glucose Sensor (DEXCOM G6 SENSOR) tere 9 Each 3 Sig: Apply new sensor every ten (10) days to abdomen. Donis Harris RPh documented in this encounterTrinity Health [facility]02-03-2023 Note* Addendum Note - LARISSA Cano CNP - 03/20/2022 12:43 PM ESTAddended by: JUN DURANT on: 03/20/2022 12:43 PM Modules accepted: Orders [employer] Phone: [phone] Telephone encounter Note* Telephone Encounter - LARISSA Cano CNP - 03/20/2022 12:43 PM EST Agree - follow w GI - thanks. [facility] [id number] Miscellaneous Notes* Addendum Note - LARISSA Cano CNP - 03/20/2022 12:43 PM ESTAddended by: JUN DURANT on: 03/20/2022 12:43 PM Modules accepted: Orders * Telephone Encounter - LARISSA Cano CNP - 03/20/2022 12:43 PM EST Agree - follow w GI - thanks. * Addendum Note - Katerine Padgett RD - 03/19/2022 3:20 PM ESTAddended by: KATERINE PADGETT on: 03/19/2022 03:20 PM Modules accepted: Orders * Telephone Encounter - Katerine Padgett RD - 03/19/2022 3:08 PM EST Called pt to discuss labs. Pt states she is not getting in adequate protein as she is still struggling with diarrhea. Pt states it happens with everything. Some days can tolerate one things, other days cannot tolerate that same food. Pt is making sure she is not drinking with her meals. Says she tried imodium in the am, would get so constipated that she would have to take something to relieve the constipation. Recommended pt ensure she is taking in 64 oz fluid consistently, some days pt is taking in 48oz only. Recommended pt try and keep track of foods that cause issues to try and find a trend, can send the list of foods thatare causing issues to this RD to review. Recommended pt increase soluble fiber slowly. Can review if there are trigger foods with pt once ptsends food list of foods she gets diarrhea after. Recommended pt slowly increase soluble fiber foods such as beans, broccoli, oats, pears, apples, carrots, etc. pt agreeable. Of note pt has a hx of IBS-D, will forward to GEOTECHNICAL ENGINEERING TECHNICIAN for review. Recommended pt continue to follow withGI. Pt not taking any zinc supplements currently. Pt to add 25 mg zinc every day OR can purchase a 50 mg zinc and break it in half and take half of a 50 mg tablet daily. Pt agreeable. Med list updated. Will recheck both protein and zinc in 3 months orders pended. * Telephone Encounter - Katerine Padgett RD - 2022 2:55 PM EST Returned pt's call, no answer, lvm. * Telephone Encounter - Katerine Padgett RD - 2022 11:41 AM EST Pt returned call and lvm regarding ab lab letter. * Telephone Encounter - Katerine Padgett RD - 03/10/2022 10:34 AM EST Unable to reach patient regarding results. Will mail recommendation for patient to call the office regarding abnormal results for accurate supplementation. Will recheck after return phone call has been made. * Telephone Encounter - Katerine Padgett RD - 03/09/2022 10:48 AM EST Called patient to discuss abnormal labs, no answer, left voicemail for patient to call back. * Telephone Encounter - Katerine Padgett RD - 03/06/2022 11:35 AM EST Protein: 5.9 (L) Zinc: 55 (L) documented in this encounterSTrinity Health System East [id number] Note* Addendum Note - Katerine Padgett RD - 03/19/2022 3:20 PM ESTAddended by: KATERINE PADGETT on: 03/19/2022 03:20 PM Modules accepted: Orders [facility] [id number] Note* Addendum Note - Katerine Padgett RD - 03/19/2022 3:20 PM ESTAddended by: KATERINE PADGETT on: 03/19/2022 03:20 PM Modules accepted: Orders [facility] [id number] Miscellaneous Notes* Addendum Note - Katerine Padgett RD - 03/19/2022 3:20 PM ESTAddended by: KATERINE PADGETT on: 03/19/2022 03:20 PM Modules accepted: Orders * Telephone Encounter - Katerine Padgett RD - 03/19/2022 3:08 PM EST Called pt to discuss labs. Pt states she is not getting in adequate protein as she is still struggling with diarrhea. Pt states it happens with everything. Some days can tolerate one things, other days cannot tolerate that same food. Pt is making sure she is not drinking with her meals. Says she tried imodium in the am, would get so constipated that she would have to take something to relieve the constipation. Recommended pt ensure she is taking in 64 oz fluid consistently, some days pt is taking in 48oz only. Recommended pt try and keep track of foods that cause issues to try and find a trend, can send the list of foods thatare causing issues to this RD to review. Recommended pt increase soluble fiber slowly. Can review if there are trigger foods with pt once ptsends food list of foods she gets diarrhea after. Recommended pt slowly increase soluble fiber foods such as beans, broccoli, oats, pears, apples, carrots, etc. pt agreeable. Of note pt has a hx of IBS-D, will forward to GEOTECHNICAL ENGINEERING TECHNICIAN for review. Recommended pt continue to follow withGI. Pt not taking any zinc supplements currently. Pt to add 25 mg zinc every day OR can purchase a 50 mg zinc and break it in half and take half of a 50 mg tablet daily. Pt agreeable. Med list updated. Will recheck both protein and zinc in 3 months orders pended. * Telephone Encounter - Katerine Padgett RD - 2022 2:55 PM EST Returned pt's call, no answer, lvm. * Telephone Encounter - Katerine Padgett RD - 2022 11:41 AM EST Pt returned call and lvm regarding ab lab letter. * Telephone Encounter - Katerine Padgett RD - 03/10/2022 10:34 AM EST Unable to reach patient regarding results. Will mail recommendation for patient to call the office regarding abnormal results for accurate supplementation. Will recheck after return phone call has been made. * Telephone Encounter - Katerine Padgett RD - 03/09/2022 10:48 AM EST Called patient to discuss abnormal labs, no answer, left voicemail for patient to call back. * Telephone Encounter - Katerine Padgett RD - 03/06/2022 11:35 AM EST Protein: 5.9 (L) Zinc: 55 (L) documented in this [facility]02-02-2023 Telephone encounter Note* Telephone Encounter - Katerine Padgett RD - 03/19/2022 3:08 PM EST Called pt to discuss labs. Pt states she is not getting in adequate protein as she is still struggling with diarrhea. Pt states it happens with everything. Some days can tolerate one things, other days cannot tolerate that same food. Pt is making sure she is not drinking with her meals. Says she tried imodium in the am, would get so constipated that she would have to take something to relieve the constipation. Recommended pt ensure she is taking in 64 oz fluid consistently, some days pt is taking in 48oz only. Recommended pt try and keep track of foods that cause issues to try and find a trend, can send the list of foods thatare causing issues to this RD to review. Recommended pt increase soluble fiber slowly. Can review if there are trigger foods with pt once ptsends food list of foods she gets diarrhea after. Recommended pt slowly increase soluble fiber foods such as beans, broccoli, oats, pears, apples, carrots, etc. pt agreeable. Of note pt has a hx of IBS-D, will forward to GEOTECHNICAL ENGINEERING TECHNICIAN for review. Recommended pt continue to follow withGI. Pt not taking any zinc supplements currently. Pt to add 25 mg zinc every day OR can purchase a 50 mg zinc and break it in half and take half of a 50 mg tablet daily. Pt agreeable. Med list updated. Will recheck both protein and zinc in 3 months orders pended. [facility] [id number] Telephone encounter Note* Telephone Encounter - Katerine Padgett RD - 2022 2:55 PM EST Returned pt's call, no answer, lvm. [facility] [id number] Miscellaneous Notes* Telephone Encounter - Katerine Padgett RD - 2022 2:55 PM EST Returned pt's call, no answer, lvm. * Telephone Encounter - Katerine Padgett RD - 2022 11:41 AM EST Pt returned call and lvm regarding ab lab letter. * Telephone Encounter - Katerine Padgett RD - 03/10/2022 10:34 AM EST Unable to reach patient regarding results. Will mail recommendation for patient to call the office regarding abnormal results for accurate supplementation. Will recheck after return phone call has been made. * Telephone Encounter - Katerine Padgett RD - 03/09/2022 10:48 AM EST Called patient to discuss abnormal labs, no answer, left voicemail for patient to call back. * Telephone Encounter - Katerine Padgett RD - 03/06/2022 11:35 AM EST Protein: 5.9 (L) Zinc: 55 (L) documented in this encounterSTrinity Health System [facility] [id number] Telephone encounter Note* Telephone Encounter - Katerine Padgett RD - 2022 11:41 AM EST Pt returned call and lvm regarding ab lab letter. [id number] Miscellaneous Notes* Telephone Encounter - Ameena Hodge RN - 03/13/2022 3:55 PM EST Patient called and notified of provider instructions. Patient voiced understanding. Ameena Hodge RN * Telephone Encounter - Kailey Diamond Ma - 03/13/2022 3:49 PM EST Left message for return call. * Telephone Encounter - Inna Small APRN.CNP - 03/13/2022 3:38 PM EST Please let patient know to trial decreasing her metformin dose to 1 tablet daily to see if there isany improvement in her diarrhea. If no change we will go back to previous dose and she needs to keep her upcoming appointment with Donis. Also I am still waiting on records from Dr. Contreras office. Thank you Inna Small APRN.SABINE documented in this encounterTrinity [facility]01-27-2023 Miscellaneous Notes* Telephone Encounter - Ameena Hodge RN - 03/13/2022 3:27 PM EST Aruna from [facility] calls and notified that new prescription of Ozempic sent it. Voiced understanding. Ameena Hodge RN * Telephone Encounter - Inna Small APRN.CNP - 03/13/2022 3:22 PM EST PER visit today, patient had been switched to Ozempic because of difficulty getting trulicity. She should be on the ozempic does a new order need sent? I have sent a new prescription. Thank you Inna Small APRN.CNP * Telephone Encounter - Ameena Hodge RN - 03/13/2022 3:16 PM EST Aruna from [facility] calls and is asking if provider wanted to discontinue Trulicity and Ozempic orders. Aruna states that they are always actively searching for medication to get it in for patient. Aruna just wanted to clarify that provider does not want patient on either medication. Please review and advise, Ameena Hodge RN documented in this encounterTrinity Health [facility] Campus01-27-2023 History of Present illness Narrative* Inna Small APRN.CNP - 03/13/2022 8:46 AM EST CC: Patient presents with: Recheck: 3 month follow up HPI Melanie Bird is a 66 year old female who presents today for routine follow up. Gastric bypass perform May of 2021 which she has lost almost 90 pounds since surgery Has chronic diarrhea that has been worse since gastric surgery. States she has to take 1 pill of imodium in the morning to prevent diarrhea but then after 3 days of taking this will get constipated will take a generic over the counter stool softener and miralax but does not seem to help. Does take a stool softener every night at bedtime. Does take a fiber supplement one tablespoon daily. Sees for this and last saw him this past November and diagnosed with IBS diarrhea, and takes alosetron and has been for many years without stopping and feels it does not work. DIABETES MELLITUS: Ms. Bird denies excessive thirst or increased frequency of urination, chest pain or dyspnea , numbness, tingling or pain in extremities, new or unusual visual symptoms, low sugar/hypoglycemic reactions, weight loss/gain, and lightheadedness/dizziness. Follows a diabetic diet most of the time. She is compliant with medication(s) and is tolerating med(s) without any side effects. She reports checking her glucose on a continuous schedule with sugars in the unknown range and did not bring sensor with her to review. Patient's last HgA1C was Hemoglobin A1C (%) Date Value 03/03/2022 6.8 07/30/2021 7.0 11/15/2020 7.0 09/02/2020 7.2 Hemoglobin A1C (POCT) (%) Date Value 12/11/2021 6.7 ) Last Ophthalmology exam was within the past [address] Meier at [facility]. Insomnia: Uses ambien to help sleep which is effective and she has used this for years. Gets 5-6 hours of sleep at night when taking the ambien. ARIANA: recent sleep study indicating no longer needing a cpap but still requiring 2Lof Oxygen at night as ordered by pulmonology. REVIEW OF SYSTEMS General: no fevers, no chills, no night sweats, no recurrent infections, no change in appetite, no change in energy, and no significant changes in weight Respiratory: no cough, no wheezing, no shortness of breath, no hemoptysis Cardiovascular: no chest pain, no chest pressure, no palpitations, and no swelling GI: See HPI Endocrine: no fatigue, no polyuria, no polyphagia, and no polydipsia Neurologic: No headache, weakness, numbness, tingling, dizziness, syncope. PAST MEDICAL HISTORY Diagnosis Date Depression Diabetes mellitus type 2, uncontrolled High cholesterol History of colon polyps History of gallstones IBS (irritable bowel syndrome) Obesity 04/25/2013 BMI 48.43 ARIANA (obstructive sleep apnea) 03/06/2013 Parkinson disease (HCC) PAST SURGICAL HISTORY Procedure Laterality Date ANAL SPHINCTEROPLASTY SPHINCTEROPLASTY ANAL W/ IMPLANT ARTIFICIAL SPHINCTER ADULT BARIATRIC SURGERY HX 05/28/2021 CATARACT EXTRACTION HX Bilateral 08/2012 COLONOSCOPY GEN ANES 04/2019 INCISE FINGER TENDON SHEATH 12/20/2012 Left 3rd trigger finger release MANIPULATION KNEE JOINT UNDER GENERAL ANESTHESIA Left 01/23/2022 Left knee manipulation under anesthesia PAST SURGICAL HISTORY OF 06/2012 Interstim PAST SURGICAL HISTORY OF Right trigger thumb REMOVAL GALLBLADDER 2000 TOTAL KNEE REPLACEMENT Left 10/29/2021 Left robotic total knee replacement ALLERGIES Seroquel [Quetiapine Fumarate] and Victoza [Liraglutide] MEDICATIONS ascorbic acid, vitamin C, (VITAMIN C) 500 mg tablet^Take 1 tablet by mouth once daily.^Disp: 30 tablet^Rfl: 11 magnesium oxide (MAG-OX) 400 mg (241.3 mg magnesium) tablet^Take 2 tablets by mouth once daily.^Disp: 60 tablet^Rfl: 11 dulaglutide (TRULICITY) 4.5 mg/0.5 mL pen injector^INJECT 4.5MG SUBCUTANEOUSLY ONCE A WEEK^Disp: 2 mL^Rfl: 5 semaglutide (OZEMPIC) 1 mg/dose (4 mg/3 mL) pen^Inject 1 mg subcutaneously one time a week.^Disp: 3mL^Rfl: 5 zolpidem (AMBIEN) 5 mg tablet^Take 1 tablet by mouth at bedtime as needed for sedation for up to 90days. TAKE 1 TABLET BY MOUTH AT BEDTIME NEEDED FOR SEDATION Do not start before February 26, 2022.^Disp: 30 tablet^Rfl: 2 metFORMIN ER (GLUCOPHAGE XR) 500 mg 24 hr tablet^TAKE 2 TABLETS DAILY WITH MEALS^Disp: 60 tablet^Rfl: 5 fexofenadine (SEFERINO) 180 mg tablet^Take 1 tablet by mouth once daily.^Disp: 28 tablet^Rfl: 3 atorvastatin (LIPITOR) 20 mg tablet^Take 1 tablet by mouth once daily.^Disp: 28 tablet^Rfl: 11 dulaglutide (TRULICITY) 1.5 mg/0.5 mL pen injector^Inject 1.5 mg subcutaneously one time a week. Use 3 mg and 1.5 mg trulicity injection to equal 4.5 mg one time a week.^Disp: 2 mL^Rfl: 5 dulaglutide (TRULICITY) 3 mg/0.5 mL pen injector^Inject 3 mg subcutaneously one time a week. Use 3 mg and 1.5 mg trulicity injection to equal 4.5 mg one time a week.^Disp: 2 mL^Rfl: 5 flash glucose sensor (FREESTYLE IZABELLA 2 SENSOR) kit^Use to monitor blood sugars 4 times daily^Disp:6 Each^Rfl: 3 gabapentin (NEURONTIN) 600 mg tablet^Take 3 tablets by mouth daily at bedtime for 180 days.^Disp: 90 tablet^Rfl: 5 gabapentin (NEURONTIN) 300 mg capsule^Take 3 capsules by mouth daily at lunch^Disp: 90 capsule^Rfl:5 Surgical Lubricant Jelly gel^For MRI Female Pelvis, MRI department to provide. Administer intra-vaginal Surgilube immediately prior the MRI procedure (total amount to patient toleranace).^Disp: 5 g^Rfl: 1 insulin glargine U-300 conc (TOUJEO SOLOSTAR U-300 INSULIN) 300 unit/mL (1.5 mL)^Inject 16 Units subcutaneously every morning.^Disp: ^Rfl: sertraline (ZOLOFT) 50 mg tablet^Take 1 tablet by mouth once daily.^Disp: 30 tablet^Rfl: 5 OXYGEN, HOME THERAPY,^2 L/min by Mask route daily at bedtime. CPAP 2L at night^Disp: ^Rfl: aspirin, enteric coated (ASPIRIN, ENTERIC COATED) 81 mg EC tablet^Take 1 tablet by mouth twice daily for 28 days.^Disp: 56 tablet^Rfl: 0 cloNIDine HCl (CATAPRES) 0.1 mg tablet^Take 1 tablet by mouth once daily.^Disp: ^Rfl: acyclovir (ZOVIRAX) 400 mg tablet^Take 1 tablet by mouth twice daily.^Disp: 56 tablet^Rfl: 11 rOPINIRole (REQUIP) 0.5 mg tablet^TAKE 1 TABLET BY MOUTH TWICE A DAY (NOON AND BEDTIME)^Disp: 56 tablet^Rfl: 11 Cholecalciferol, Vitamin D3, (VITAMIN D-3) 50 mcg (2,000 unit) cap^Take 1 capsule by mouth once daily.^Disp: 28 capsule^Rfl: 11 omeprazole (PRILOSEC) 20 mg capsule^Take 20 mg by mouth once daily.^Disp: ^Rfl: AUSTEDO 6 mg tab^Take 6 mg by mouth twice daily.^Disp: ^Rfl: Lancets lancets^Test Four times a day. Insulin Dep? Yes E11.9 DM 2^Disp: 200 Each^Rfl: 4 blood sugar diagnostic (BLOOD GLUCOSE TEST) test strip^Test Four times a day. Insulin Dep? Yes E11.9 DM 2^Disp: 300 Strip^Rfl: 3 calcium carbonate 600 mg-cholecalciferol 200 units (CALCARB 600 WITH VITAMIN D) 600 mg(1,500mg) -200 unit tab^Take 1 tablet by mouth twice daily.^Disp: 60 tablet^Rfl: 5 wheat dextrin (BENEFIBER SUGAR FREE, DEXTRIN,) 3 gram/4 gram powd^1/2 tablespoon per day x2 weeks. Then increase by 1/2 tablespoon every 2 weeks until you are taking 3 tablespoons per day in divided doses.^Disp: 248 g^Rfl: 3 polyethylene glycol 3350 (MIRALAX, GLYCOLAX) 17 gram/dose powder^Take 17 g by mouth twice daily. Drink a mix of 1 scoop in 8oz of water/beverage once daily as needed for constipation.^Disp: 1 Bottle^Rfl: 2 docusate sodium (COLACE) 100 mg capsule^Take 1 capsule by mouth twice daily as needed for Constipation.^Disp: 60 capsule^Rfl: 1 COMPOUNDED PRESCRIPTION^PORTABLE OXYGEN TANKS FOR USE IN BACK PACK USES 3 Lpm WHEN ON PORTABLE TANKto use with exertion DX R79.81^Disp: 4 Each^Rfl: 11 COMPOUNDED PRESCRIPTION^EMERGENCY BACKUP OXYGEN TANK FOR WHEN PATIENT LOSES ELECTRICITY DX R79.81^Disp: 1 Each^Rfl: 11 CPAP^Initiate AutoPAP @ 10/20 cm of water with EPR of 3 , humidification. Mask (per patient preference) optional chin strap (if indicated) , filters, tubing, humidifier and lifetime supplies. Dx. ARIANA 327.23^Disp: 1 Device^Rfl: 0 COMPOUNDED PRESCRIPTION^Oxygen supplies dx: R79.81 R06.02^Disp: 1 Each^Rfl: 99 COMPOUNDED PRESCRIPTION^CPAP supplies Dx: G47.33^Disp: 1 Box^Rfl: 99 COMPOUNDED PRESCRIPTION^Home Oxygen, 2 litres with cpap machine^Disp: 1 Each^Rfl: 0 blood sugar diagnostic (ONETOUCH ULTRA TEST) test strip^Test blood sugar(s) 4 times daily. Dx: Type2 DM - Uncontrolled E11.65 Insulin: Yes^Disp: 200 Strip^Rfl: 11 meclizine (ANTIVERT) 25 mg tab^Take 1 tablet by mouth three times daily as needed (dizziness).^Disp: 15 tablet^Rfl: 0 insulin needles, DISPOSABLE, (ULTICARE PEN NEEDLE) 31 gauge x 5/16 ndle^UAD to inject insulins 5 times daily.^Disp: 200 Each^Rfl: 9 Lancets (ACCU-CHEK FASTCLIX) lancets^With Accuchek fastclix lancing device. Check sugars 4x/day Dx:e11.65 Insulin: Yes^Disp: 200 Each^Rfl: 11 FAMILY HISTORY Problem Relation Age of Onset Diabetes Mother Heart Mother Diabetes Father Heart Father Colon Cancer Sister Asthma No Family History Social History Tobacco Use Smoking status: Former Packs/day: 0.10 Years: 3.00 Pack years: 0.30 Types: Cigarettes Quit date: 04/25/1988 Years since quittin.9 Smokeless tobacco: Never Tobacco comments: No smoking in childhood home. Roomate of last 10 years smoked while living with patient. Vaping Use Vaping Use: Never used Substance Use Topics Alcohol use: No Drug use: No PHYSICAL EXAM BP 118/70 Pulse 64 Resp 16 Wt 94.3 kg (208 lb) LMP 04/10/2012 (Approximate) BMI 35.70 kg/m General Appearance: well appearing, in no acute distress, alert Skin: Skin color, texture, turgor normal for age; Eyes: conjunctiva pink and moist, no icterus, sclera white, non-injected Lungs: Lungs clear to auscultation. No wheezing, rhonchi, rales. Heart: RRR without murmur, gallop, or rubs. No ectopy Abdomen: Abdomen soft, non-tender. Bowel sounds normal. No masses, organomegaly Health maintenance reviewed with patient: PAP TESTING due on 08/23/2014 HPV TESTING due on 08/23/2014 DIABETIC FOOT EXAM due on 09/20/2020 DEPRESSION ASSESSMENT due on 02/15/2022 MAMMOGRAM due on 04/03/2022 PNEUMOCOCCAL(2 - PCV) due on 03/13/2023 DILATED RETINAL EXAM due on 05/27/2022 URINE ALBUMIN:CREATININE RATIO due on 07/30/2022 HBA1C due on 08/31/2022 ANNUAL PCP TEAM CHRONIC DISEASE VISIT due on 12/11/2022 LDL CHOLESTEROL due on 03/03/2023 COLORECTAL CANCER SCREENING due on 09/19/2024 DTAP,TDAP,TD(5 - Td or Tdap) due on 10/03/2030 INFLUENZA Completed HEPATITIS C SCREENING Completed SHINGRIX VACCINE Completed COVID-19 VACCINE Completed HIV SCREENING Discontinued DATA REVIEWED: Most recent labs ASSESSMENT/PLAN: 1. Diabetes mellitus type 2 (HCC) - ICD9: 250.00, ICD10: E11.9 (primary diagnosis) Controlled. But with chronic diarrhea am considering decreasing metformin. Reaching out to clinicalpharmacist to discuss this further. - Continue current medications - Blood glucose monitoring on a continuous schedule - BP goal of <130/80 - LDL goal of <100 2. S/P gastric sleeve procedure - ICD9: V45.75, ICD10: Z90.3 - continuing to lose weight - continue with recommendations by gastric surgeon 3. Chronic diarrhea - ICD9: 787.91, ICD10: K52.9 - very unsure on why patient is on daily stool softener along with medication to prevent diarrhea. Requesting records from GI specialist for most recent records to review what she is supposed to be on. 4. Insomnia, unspecified type - ICD9: 780.52, ICD10: G47.00 - controlled with current treatment so will continue ambien at this time 5. ARIANA (obstructive sleep apnea) - ICD9: 327.23, ICD10: G47.33 - improving with weight loss, continue with home oxygen at night as ordered by pulmonology 6. Breast cancer screening by mammogram - ICD9: V76.12, ICD10: Z12.31 - ANGELITA SCREENING Prescription instructions reviewed with patient as applicable. Potential red flag symptoms discussed with the patient. Reviewed appropriate action plan to take if red flag symptoms occur. Patient agreeable to treatment plan. Inna Small APRN.CNP Medical Decision Making: Problems: Moderate: 2+ stable chronic illnesses and 1+ chronic illnesses with change Data: Unique source(s) for external note(s) reviewed: 1 Unique test(s) ordered: 1 Risk: Minimal: Minimal risk from testing/treatment Moderate: Drug management Medical Decision Making Level: 4 - Moderate documented in this encounterTrinity Health [facility]01-26-2023 Miscellaneous Notes* Telephone Encounter - Radha Spencer RN - 03/12/2022 10:44 AM EST Patient has been identified by name and date of : Yes, Provider Radha Spencer RN Date03/12/2022 Time 10:55 am Pharmacy phones for refill(s): Requested Prescriptions Pending Prescriptions Disp Refills ascorbic acid, vitamin C, (VITAMIN C) 500 mg tablet 30 tablet 11 Sig: Take 1 tablet by mouth once daily. magnesium oxide (MAG-OX) 400 mg (241.3 mg magnesium) tablet 60 tablet 11 Sig: Take 2 tablets by mouth once daily. dulaglutide (TRULICITY) 4.5 mg/0.5 mL pen injector 2 mL 5 Sig: INJECT 4.5MG SUBCUTANEOUSLY ONCE A WEEK Aruna Hurst reports that Trulicity is hit or miss if they can get the medication. They will have prescription on file and dispense if available if not will dispense Ozempic per patient request. Date of last office visit with pcp: 12/11/2021 Future appt: 03/13/2022 Last 2 Encounter Wt Readings: Date: Wt: 03/10/2022 95.3 kg (210 lb) 01/26/2022 94.3 kg (208 lb) Previous labs/tests for medication: Diabetes: Hemoglobin A1C (%) Date Value 03/03/2022 6.8 07/30/2021 7.0 11/15/2020 7.0 09/02/2020 7.2 Hemoglobin A1C (POCT) (%) Date Value 12/11/2021 6.7 Blood Pressure: BUN (mg/dL) Date Value 03/03/2022 9 11/15/2020 18 Sodium (mmol/L) Date Value 03/03/2022 143 11/15/2020 140 Last 1 Encounter BP Readings: Date: BP: 03/10/2022 118/72 Liver Function: ALT (U/L) Date Value 03/03/2022 37 11/15/2020 17 AST (U/L) Date Value 03/03/2022 38 11/15/2020 18 Please advise. Thank you. Radha Spencer RN documented in this encounterTrinity Health [facility] Campus01-24-2023 History of Present illness Narrative* Shawanda May MD - 03/10/2022 12:45 PM EST Images from the original note were not included. . [facility] [place] Note Patient name: Melanie Bird PCP: Modesta Daley MD Referring: Tony López MD CC: nocturnal hypoxemia HPI: Melanie Bird 66 year old female former minimal smoker with PMH significant for obesity s/p bariatric surgery 05/2021, DM2, Parkinson's and h/o ARIANA, last seen in pulmonary clinic in 2013 for pre-op evaluation and restrictive lung disease. Restriction due to obesity. Recent PSG without sigificant apnea but desaturations down to 85% and snoring. Hypoxemia associated with respiratory events although AHI has normalized. Received one liter of oxygen during last sleep study with normalization ofoxygenation. Being sent by Sleep Medicine for management of her nocturnal hypoxemia. Prior to her bariatric surgery, she was on continuous supplemental oxygen and 2 L oxygen bleed in with her PAP. Cur rently only using oxygen 2 L at night. She has some dyspnea on exertion but overall her respiratorysymptoms have dramatically improved with her 90 pound weight loss. She denies chronic cough, wheezing, chest pain. No prior history of asthma or COPD. DME: [employer] PFT 2017: Review of spirometry shows no obstruction and reduced FVC suggestive of moderately severe restriction PSG 01/2022: Respiratory: The sleep study was performed while breathing oxygen at 1 L/min via nasal cannula after it was decided that the patient did not meet the split- night protocol criteria. Sleep was recorded in the physicians: Supine (128.5 minutes) and nonsupine (187.5 minutes). There were total of 4 respiratory disturbances recorded: 0 apneas, 4 hypopneas (4%). The apnea consisted of: 0 obstructive apneas, 0 mixed apneas and 0 central apneas. The overall apnea hypopnea index (AHI 4%) was 0.8 events per hour sleep. 1.9/h in the supine position, 0/h in the nonsupine position, and 0/h during REM sleep. These respiratory events were associated with oxyhemoglobin desaturation down to a shaniqua of 85%. The mean oxygen saturations during sleep was 90% and baseline mean oxyhemoglobin saturation while awake was 91%. The oxyhemoglobin saturation was less than or equal to 88% for 82.3 minutes. Impression: 1. Primary snoring 2. Nocturnal or sleep-related hypoxia 3. Sleep disorder unspecified Recommendations: 1. Clinical correlation for sleep-related hypoxia as above 2. Supplemental oxygen at 1 L/min 3 consider repeat PSG if there is a high suspicion for sleep apnea, given possible night to night variability of respiratory events. Labs: Component Ref Range & Units 7 d ago (03/03/22) WBC 3.70 - 11.00 k/uL 8.41 RBC 3.90 - 5.20 m/uL 4.81 Hemoglobin 11.5 - 15.5 g/dL 14.8 Hematocrit 36.0 - 46.0 % 45.8 MCV 80.0 - 100.0 fL 95.2 MCH 26.0 - 34.0 pg 30.8 MCHC 30.5 - 36.0 g/dL 32.3 RDW-CV 11.5 - 15.0 % 13.2 Platelet Count 150 - 400 k/uL 250 MPV 9.0 - 12.7 fL 11.0 Absolute nRBC <0.01 k/uL <0.01 PAST MEDICAL HISTORY Diagnosis Date Depression Diabetes mellitus type 2, uncontrolled High cholesterol History of colon polyps History of gallstones IBS (irritable bowel syndrome) Obesity 04/25/2013 BMI 48.43 ARIANA (obstructive sleep apnea) 03/06/2013 Parkinson disease (HCC) ALLERGIES Allergen Reactions Seroquel [Quetiapin* Mental Status Change Victoza [Liraglutid* GI Upset semaglutide (OZEMPIC) 1 mg/dose (4 mg/3 mL) pen^Inject 1 mg subcutaneously one time a week.^Disp: 3mL^Rfl: 5 zolpidem (AMBIEN) 5 mg tablet^Take 1 tablet by mouth at bedtime as needed for sedation for up to 90days. TAKE 1 TABLET BY MOUTH AT BEDTIME NEEDED FOR SEDATION Do not start before February 26, 2022.^Disp: 30 tablet^Rfl: 2 metFORMIN ER (GLUCOPHAGE XR) 500 mg 24 hr tablet^TAKE 2 TABLETS DAILY WITH MEALS^Disp: 60 tablet^Rfl: 5 fexofenadine (SEFERINO) 180 mg tablet^Take 1 tablet by mouth once daily.^Disp: 28 tablet^Rfl: 3 atorvastatin (LIPITOR) 20 mg tablet^Take 1 tablet by mouth once daily.^Disp: 28 tablet^Rfl: 11 dulaglutide (TRULICITY) 1.5 mg/0.5 mL pen injector^Inject 1.5 mg subcutaneously one time a week. Use 3 mg and 1.5 mg trulicity injection to equal 4.5 mg one time a week.^Disp: 2 mL^Rfl: 5 dulaglutide (TRULICITY) 3 mg/0.5 mL pen injector^Inject 3 mg subcutaneously one time a week. Use 3 mg and 1.5 mg trulicity injection to equal 4.5 mg one time a week.^Disp: 2 mL^Rfl: 5 flash glucose sensor (FREESTYLE IZABELLA 2 SENSOR) kit^Use to monitor blood sugars 4 times daily^Disp:6 Each^Rfl: 3 gabapentin (NEURONTIN) 600 mg tablet^Take 3 tablets by mouth daily at bedtime for 180 days.^Disp: 90 tablet^Rfl: 5 gabapentin (NEURONTIN) 300 mg capsule^Take 3 capsules by mouth daily at lunch^Disp: 90 capsule^Rfl:5 Surgical Lubricant Jelly gel^For MRI Female Pelvis, MRI department to provide. Administer intra-vaginal Surgilube immediately prior the MRI procedure (total amount to patient toleranace).^Disp: 5 g^Rfl: 1 insulin glargine U-300 conc (TOUJEO SOLOSTAR U-300 INSULIN) 300 unit/mL (1.5 mL)^Inject 16 Units subcutaneously every morning.^Disp: ^Rfl: sertraline (ZOLOFT) 50 mg tablet^Take 1 tablet by mouth once daily.^Disp: 30 tablet^Rfl: 5 OXYGEN, HOME THERAPY,^2 L/min by Mask route daily at bedtime. CPAP 2L at night^Disp: ^Rfl: aspirin, enteric coated (ASPIRIN, ENTERIC COATED) 81 mg EC tablet^Take 1 tablet by mouth twice daily for 28 days.^Disp: 56 tablet^Rfl: 0 cloNIDine HCl (CATAPRES) 0.1 mg tablet^Take 1 tablet by mouth once daily.^Disp: ^Rfl: TRULICITY 4.5 mg/0.5 mL pen injector^INJECT 4.5MG SUBCUTANEOUSLY ONCE A WEEK^Disp: 2 mL^Rfl: 5 VITAMIN C 500 mg tablet^TAKE 1 TABLET BY MOUTH DAILY^Disp: 30 tablet^Rfl: 5 acyclovir (ZOVIRAX) 400 mg tablet^Take 1 tablet by mouth twice daily.^Disp: 56 tablet^Rfl: 11 rOPINIRole (REQUIP) 0.5 mg tablet^TAKE 1 TABLET BY MOUTH TWICE A DAY (NOON AND BEDTIME)^Disp: 56 tablet^Rfl: 11 Cholecalciferol, Vitamin D3, (VITAMIN D-3) 50 mcg (2,000 unit) cap^Take 1 capsule by mouth once daily.^Disp: 28 capsule^Rfl: 11 omeprazole (PRILOSEC) 20 mg capsule^Take 20 mg by mouth once daily.^Disp: ^Rfl: magnesium oxide (MAG-OX) 400 mg (241.3 mg magnesium) tablet^Take 2 tablets by mouth once daily.^Disp: 60 tablet^Rfl: 11 AUSTEDO 6 mg tab^Take 6 mg by mouth twice daily.^Disp: ^Rfl: Lancets lancets^Test Four times a day. Insulin Dep? Yes E11.9 DM 2^Disp: 200 Each^Rfl: 4 blood sugar diagnostic (BLOOD GLUCOSE TEST) test strip^Test Four times a day. Insulin Dep? Yes E11.9 DM 2^Disp: 300 Strip^Rfl: 3 calcium carbonate 600 mg-cholecalciferol 200 units (CALCARB 600 WITH VITAMIN D) 600 mg(1,500mg) -200 unit tab^Take 1 tablet by mouth twice daily.^Disp: 60 tablet^Rfl: 5 wheat dextrin (BENEFIBER SUGAR FREE, DEXTRIN,) 3 gram/4 gram powd^1/2 tablespoon per day x2 weeks. Then increase by 1/2 tablespoon every 2 weeks until you are taking 3 tablespoons per day in divided doses.^Disp: 248 g^Rfl: 3 polyethylene glycol 3350 (MIRALAX, GLYCOLAX) 17 gram/dose powder^Take 17 g by mouth twice daily. Drink a mix of 1 scoop in 8oz of water/beverage once daily as needed for constipation.^Disp: 1 Bottle^Rfl: 2 docusate sodium (COLACE) 100 mg capsule^Take 1 capsule by mouth twice daily as needed for Constipation.^Disp: 60 capsule^Rfl: 1 COMPOUNDED PRESCRIPTION^PORTABLE OXYGEN TANKS FOR USE IN BACK PACK USES 3 Lpm WHEN ON PORTABLE TANKto use with exertion DX R79.81^Disp: 4 Each^Rfl: 11 COMPOUNDED PRESCRIPTION^EMERGENCY BACKUP OXYGEN TANK FOR WHEN PATIENT LOSES ELECTRICITY DX R79.81^Disp: 1 Each^Rfl: 11 CPAP^Initiate AutoPAP @ 10/20 cm of water with EPR of 3 , humidification. Mask (per patient preference) optional chin strap (if indicated) , filters, tubing, humidifier and lifetime supplies. Dx. ARIANA 327.23^Disp: 1 Device^Rfl: 0 COMPOUNDED PRESCRIPTION^Oxygen supplies dx: R79.81 R06.02^Disp: 1 Each^Rfl: 99 COMPOUNDED PRESCRIPTION^CPAP supplies Dx: G47.33^Disp: 1 Box^Rfl: 99 COMPOUNDED PRESCRIPTION^Home Oxygen, 2 litres with cpap machine^Disp: 1 Each^Rfl: 0 blood sugar diagnostic (ONETOUCH ULTRA TEST) test strip^Test blood sugar(s) 4 times daily. Dx: Type2 DM - Uncontrolled E11.65 Insulin: Yes^Disp: 200 Strip^Rfl: 11 meclizine (ANTIVERT) 25 mg tab^Take 1 tablet by mouth three times daily as needed (dizziness).^Disp: 15 tablet^Rfl: 0 insulin needles, DISPOSABLE, (ULTICARE PEN NEEDLE) 31 gauge x 5/16 ndle^UAD to inject insulins 5 times daily.^Disp: 200 Each^Rfl: 9 Lancets (ACCU-CHEK FASTCLIX) lancets^With AccBacchus Vascular fastclix lancing device. Check sugars 4x/day Dx:e11.65 Insulin: Yes^Disp: 200 Each^Rfl: 11 Social History Tobacco Use Smoking status: Former Packs/day: 0.10 Years: 3.00 Pack years: 0.30 Types: Cigarettes Quit date: 04/25/1988 Years since quittin.8 Smokeless tobacco: Never Tobacco comments: No smoking in childhood home. Roomate of last 10 years smoked while living with patient. Vaping Use Vaping Use: Never used Substance Use Topics Alcohol use: No Drug use: No FAMILY HISTORY Problem Relation Age of Onset Diabetes Mother Heart Mother Diabetes Father Heart Father Colon Cancer Sister Asthma No Family History PAST SURGICAL HISTORY Procedure Laterality Date ANAL SPHINCTEROPLASTY SPHINCTEROPLASTY ANAL W/ IMPLANT ARTIFICIAL SPHINCTER ADULT BARIATRIC SURGERY HX 05/28/2021 CATARACT EXTRACTION HX Bilateral 08/2012 COLONOSCOPY GEN ANES 04/2019 INCISE FINGER TENDON SHEATH 12/20/2012 Left 3rd trigger finger release MANIPULATION KNEE JOINT UNDER GENERAL ANESTHESIA Left 01/23/2022 Left knee manipulation under anesthesia PAST SURGICAL HISTORY OF 06/2012 Interstim PAST SURGICAL HISTORY OF Right trigger thumb REMOVAL GALLBLADDER 2001 TOTAL KNEE REPLACEMENT Left 10/29/2021 Left robotic total knee replacement PMH, Social history, family history and surgical history reviewed and updated in EMR REVIEW OF SYSTEMS: CONSTITUTIONAL: No fevers, chills, nightsweats, unintended weight loss HEENT: Denies nasal congestion/sinus symptoms, allergy problems. CARDIOVASCULAR: No chest pain, palpitations, orthopnea, PND, edema. PULM: See HPI GI: No GI issues, no reflux, no diarrhea, no dysphagia NEURO: No peripheral weakness/paresthesias or numbness of concern. Parkinson's. Balance issues PSY: No concerns regarding depression, anxiety MUSCULOSKELETAL: Joint pain. S?p joint replacement INTEGUMENTARY: No new skin changes PHYSICAL EXAMINATION: BP 118/72 Pulse 63 Resp 19 Wt 210 lb (95.3kg) SpO2 92% LMP 04/10/2012 General Appearance: Obese female, NAD Skin: Skin color, texture, turgor normal, no suspicious rashes or lesions. Head: Normocephalic, no masses, lesions, tenderness or abnormalities. Eyes: Sclera, conjunctiva normal Oropharynx: No oral lesions or erythema Neck: No JVD, no masses, no adenopathy Chest wall: Configuration normal Lungs: Not labored, normal to percussion, no wheezes or crackles Heart: Regular rate and rhythm, no murmurs gallops Extremities: No edema clubbing Neuro: Alert and oriented, no focal findings. Tremors Assessment/Plan: 1. Nocturnal hypoxemia -Likely due to persistent obesity with hypoventilation -Update pulmonary function tests -Check for pulmonary hypertension -2 L nocturnal oxygen -May improve over time with continued weight loss 2. Shortness of breath -See #1 3. Obesity -Class 2 obesity, BMI 36 -Continued weight loss Shawanda May MD [facility] [place] documented in [facility]Tr[facility] Telephone encounter Note * Telephone Encounter - Katerine Padgett RD - 03/10/2022 10:34 AM EST Unable to reach patient regarding results. Will mail recommendation for patient to call the office regarding abnormal results for accurate supplementation. Will recheck after return phone call has been made. [facility] [id number] Miscellaneous Notes* Telephone Encounter - Katerine Padgett RD - 03/10/2022 10:34 AM EST Unable to reach patient regarding results. Will mail recommendation for patient to call the office regarding abnormal results for accurate supplementation. Will recheck after return phone call has been made. * Telephone Encounter - Katerine Padgett RD - 03/09/2022 10:48 AM EST Called patient to discuss abnormal labs, no answer, left voicemail for patient to call back. * Telephone Encounter - Katerine Padgett RD - 03/06/2022 11:35 AM EST Protein: 5.9 (L) Zinc: 55 (L) documented in this [facility]01-23-[facility]23 Telephone encounter Note* Telephone Encounter - Katerine Padgett RD - 03/09/2022 10:48 AM EST Called patient to discuss abnormal labs, no answer, left voicemail for patient to call back. [facility] [id number] Miscellaneous Notes* Telephone Encounter - Josee Porter LPN - 03/06/2022 2:39 PM EST patient notified and verbalized understanding. Josee Porter LPN * Telephone Encounter - Modesta Daley MD - 03/06/2022 1:42 PM EST I sent ozempic over, Not sure if that would be available or covered Regards, Modesta Daley MD * Telephone Encounter - Selena Vinson LPN - 03/06/2022 8:18 AM EST Patient calling, Natali is not able to get her Trulicity and it has been back ordered for a while. Patient is asking for an alternative to be prescribed and sent to [place]. Please advise. documented in this encounterTr[facility]01-20-2023 Telephone encounter Note * Telephone Encounter - Katerine Padgett RD - 03/06/2022 11:35 AM EST Protein: 5.9 (L) Zinc: 55 (L) [facility] [id number] Miscellaneous Notes* Telephone Encounter - Josee Porter LPN - 03/03/2022 8:36 AM EST noted. Josee Porter LPN * Telephone Encounter - Modesta Daley MD - 03/03/2022 8:22 AM EST I added hba1c to the lab orders Regards, Modesta Daley MD * Telephone Encounter - Josee Porter LPN - 03/03/2022 8:16 AM EST patient is here to have lab work done this morning. Patient does have orders from the bariatric center for CMP,TSH,lipids, B1, B12, D-25, magnesium,ferratin, folate and zinc. Do you want to add a hemoglobin A1c or anything else? please advise. Josee Porter LPN documented in this encounterTr[facility]01-16-2023 Miscellaneous Notes* Telephone Encounter - Kiki Farias LPN - 03/02/2022 3:20 PM EST Pt called back and information listed below given. Pt transferred to passenger service manager to help with apts. Pt aware the sleep [facility] apt with sleep center will not be in [place]. Kiki Farias LPN * Telephone Encounter - Asha Gandhi LPN - 03/02/2022 2:22 PM EST Left message for pt to call office. Triage- please advise pt of below and forward to Specialty PSR for scheduling. Shyla Gandhi LPN * Telephone Encounter - Tony López Jr., MD - 03/02/2022 12:10 PM EST The study did not support the diagnosis of sleep apnea as the overall AHI was normal. HOWEVER, the patient was hypoxic the first half of the night and required supplemental O2. I would like her to see pulmonary and also schedule a follow up with an [facility] at the sleep disorders center [facility]. Thank you, Tony López MD * Telephone Encounter - Yoel Rodriguez MA - 03/02/2022 11:02 AM EST Scan on 03/02/2022 10:32 AM by External Provider: Sleep Studies Results copied into encounter. Please advise. Yoel Rodriguez MA * Telephone Encounter - Asha Gandhi LPN - 03/02/2022 10:17 AM EST Routed to [facility] nurse asking to get results from [facility] for provider to review. Shyla Gandhi LPN * Telephone Encounter - Radha Spencer RN - 03/02/2022 10:10 AM EST Patient calls to request the results of her sleep study completed at the end of January at [facility]. Patient reports that she couldn't get an appointment with Dr. López until August 17, 2022 and patient doesn't want to wait that long for the results. Please review and advise, Radha Spencer RN documented in this encounterTr[facility]01-13-2023 Miscellaneous Notes* Telephone Encounter - Josee Porter LPN - 02/27/2022 1:15 PM EST handicap placard printed and placed in mail per patient request. Josee Porter LPN * Telephone Encounter - Modesta Daley MD - 02/27/2022 12:57 PM EST Printed for patient as requested Regards, Modesta Daley MD * Telephone Encounter - Inna Small APRN.CNP - 02/23/2022 7:47 AM EST Forwarding to Dr. Daley for her review as she has seen patient for this previously. Thank you Inna Small APRN.SABINE * Telephone Encounter - Myriam Karimi RN - 02/20/2022 9:20 AM EST Pt calling and asking if Dr. Daley would write a letter that states that she has continued need fora handicap parking space. She has a handicap placard but states she needs a letter for the parking space. She would like it mailed to address on record. Address has been verified as correct. Please call pt with update. Thank you. documented in this encounterTr[facility]01-03-2023 Miscellaneous Notes* Telephone Encounter - Marycruz Sweeney Ma - 02/17/2022 9:20 AM EST Patient had concerns addressed by Kelli Davis PA-C on 02/11/2022. documented in this encounterTr[facility]12-30-2022 Miscellaneous Notes* Telephone Encounter - Inna Small APRN.CNP - 02/13/2022 4:04 PM EST PDMP website checked and validated. All prescriptions have been APPROPRIATELY filled. No suspiciousactivity was identified. 02/13/2022 by Inna Small APRN.CNP * Telephone Encounter - Soniya Perez RN - 02/13/2022 1:55 PM EST Patient has been identified by name and date of : Yes, Provider Norm Perez RN Date 02-13-22 Time 1:59 pm Pharmacy phones for refill(s): Requested Prescriptions Pending Prescriptions Disp Refills zolpidem (AMBIEN) 5 mg tablet 30 tablet 2 Sig: Take 1 tablet by mouth at bedtime as needed for sedation for up to 90 days. TAKE 1 TABLET BY MOUTH AT BEDTIME NEEDED FOR SEDATION metFORMIN ER (GLUCOPHAGE XR) 500 mg 24 hr tablet 60 tablet 5 Sig: TAKE 2 TABLETS DAILY WITH MEALS fexofenadine (SEFERINO) 180 mg tablet 28 tablet 3 Sig: Take 1 tablet by mouth once daily. atorvastatin (LIPITOR) 20 mg tablet 28 tablet 11 Sig: Take 1 tablet by mouth once daily. Date of last office visit with pcp: 12-11-21. Next appt: 03-13-22 Last 2 Encounter Wt Readings: Date: Wt: 01/26/2022 94.3 kg (208 lb) 01/21/2022 98.4 kg (217 lb) Previous labs/tests for medication: Diabetes: Hemoglobin A1C (%) Date Value 07/30/2021 7.0 11/15/2020 7.0 09/02/2020 7.2 Hemoglobin A1C (POCT) (%) Date Value 12/11/2021 6.7 Cholesterol: HDL Cholesterol (mg/dL) Date Value 12/01/2021 46 11/15/2020 45 LDL Cholesterol (mg/dL) Date Value 12/01/2021 52 11/15/2020 72 ALT (U/L) Date Value 12/01/2021 9 11/15/2020 17 Non HDL Cholesterol (mg/dL) Date Value 12/01/2021 75 11/15/2020 93 Blood Pressure: BUN (mg/dL) Date Value 12/01/2021 10 11/15/2020 18 Sodium (mmol/L) Date Value 12/01/2021 141 11/15/2020 140 Last 1 Encounter BP Readings: Date: BP: 02/02/2022 136/82 Liver Function: ALT (U/L) Date Value 12/01/2021 9 11/15/2020 17 AST (U/L) Date Value 12/01/2021 15 11/15/2020 18 Please advise. Thank you. Soniya Perez RN documented in this encounterTrinity [facility]12-21-2022 History of Present illness Narrative* Donis Harris, [facility] - 02/04/2022 11:30 AM EST Primary Care Pharmacy Visit CC (Reason for Consult): Diabetes Goal: A1c < 7% Last Collaborating Physician/[employer] ATTENDANT Visit: 12/11/21 Melanie Bird is a 66 year old female presenting for follow up visit by telephone. Patient consents to pharmacy collaborative practice agreement. At last visit with pharmacy on 12/29/21 the following changes were made: no medication changes made. INTERIM HISTORY: Reports not feeling her best today States started to feel dizzy and throwing up since yesterday Used to have these symptoms when she has vertigo in the past, thinks it may be happening again She agrees to reach out to PCP if symptoms not improving Had to have a second surgery in the knee due to scar tissue During recovery, BG readings have been a bit higher Notes her neighbors have been making meals for her and dropping off Some have been higher in carbs than her typical meals Hopes to return to her typical meals and activity soon Just started walking around again yesterday since surgery Current DM Medications: Metformin 500 mg - 2 tabs daily Dulaglutide (Trulicity) 4.5 mg weekly on Sundays Insulin glargine U300 (Toujeo) 16 units daily GLYCEMIC CONTROL: Summary of CGM Findings: (last 14 days) 1- CGM recording is adequate for interpretation. 2- Average glucose is 160 mg/dL. 12 am - 6am - 126 mg/dL 6 am -12pm - 154 mg/dL 12 pm - 6 pm - 202 mg/dL 6 pm - 12 am 173 mg/dL 3- Total frequency of hypoglycemia: none 4- Nocturnal hypoglycemia was not noted. 5- Hyperglycemic episodes: 34 % 6- Time in target range (70-180 mg/dL): 66% ROS: Patient denies CP, SOB, HATCH, blurred vision, dizziness or lightheadedness , diarrhea, abdominal pain Patient denies symptoms of hypoglycemia (sweating, anxiety, palpitations, hunger, and tremor) Patient denies symptoms of hyperglycemia (polyuria, polydipsia, polyphagia) Patient denies potential medication adverse effects MEDICATIONS: Pill bottles are not present. Adherence: reports missed doses. [place] [facility], [place] Rx coverage: Medicare, Medicaid Affordability: none Diabetes supplies: One Touch ACTIVE PROBLEM LIST Diabetes Mellitus Type 2 ([facility]) Ptsd (Post-Traumatic Stress Disorder) Rls (Restless Legs Syndrome) Low Oxygen Saturation Tardive Dyskinesia Hyperlipidemia With Target Ldl Less Than 70 Ariana (Obstructive Sleep Apnea) Vitamin D Deficiency Ibs (Irritable Bowel Syndrome) Respiratory Abnormality, Unspecified Hypertonicity of Bladder Cataracts, Bilateral Pedal Edema Benign Paroxysmal Positional Vertigo Plantar Fasciitis, Right Congenital Pes Cavus Primary Osteoarthritis of Left Knee Chronic Pain of Left Knee Obesity, Class III, BMI >= 40 (morbid obesity) ([facility]) E66.01 Incontinence of Feces Wound Disruption Vertigo History of Implantation of Artificial Sphincter Grief Reaction Wound of Gluteal Cleft Parkinson's Disease ([facility]) S/P Gastric Sleeve Procedure Gerd (Gastroesophageal Reflux Disease) Swelling PAST MEDICAL HISTORY Diagnosis Date Depression Diabetes mellitus type 2, uncontrolled High cholesterol History of colon polyps History of gallstones IBS (irritable bowel syndrome) Obesity 04/25/2013 BMI 48.43 ARIANA (obstructive sleep apnea) 03/06/2013 Parkinson disease ([facility]) ALLERGIES Allergen Reactions Seroquel [Quetiapin* Mental Status Change Victoza [Liraglutid* GI Upset Current Outpatient Medications Medication Sig dulaglutide (TRULICITY) 1.5 mg/0.5 mL pen injector Inject 1.5 mg subcutaneously one time a week. Use 3 mg and 1.5 mg trulicity injection to equal 4.5 mg one time a week. dulaglutide (TRULICITY) 3 mg/0.5 mL pen injector Inject 3 mg subcutaneously one time a week. Use 3 mg and 1.5 mg trulicity injection to equal 4.5 mg one time a week. flash glucose sensor (FREESTYLE IZABELLA 2 SENSOR) kit Use to monitor blood sugars 4 times daily gabapentin (NEURONTIN) 600 mg tablet Take 3 tablets by mouth daily at bedtime for 180 days. gabapentin (NEURONTIN) 300 mg capsule Take 3 capsules by mouth daily at lunch zolpidem (AMBIEN) 5 mg tablet Take 1 tablet by mouth at bedtime as needed for sedation for up to 90days. TAKE 1 TABLET BY MOUTH AT BEDTIME NEEDED FOR SEDATION Surgical Lubricant Jelly gel For MRI Female Pelvis, MRI department to provide. Administer intra-vaginal Surgilube immediately prior the MRI procedure (total amount to patient toleranace). insulin glargine U-300 conc (TOUJEO SOLOSTAR U-300 INSULIN) 300 unit/mL (1.5 mL) Inject 16 Units subcutaneously every morning. sertraline (ZOLOFT) 50 mg tablet Take 1 tablet by mouth once daily. OXYGEN, HOME THERAPY, 2 L/min by Mask route daily at bedtime. CPAP 2L at night aspirin, enteric coated (ASPIRIN, ENTERIC COATED) 81 mg EC tablet Take 1 tablet by mouth twice daily for 28 days. fexofenadine (SEFERINO) 180 mg tablet TAKE 1 TABLET BY MOUTH DAILY metFORMIN ER (GLUCOPHAGE XR) 500 mg 24 hr tablet TAKE 2 TABLETS DAILY WITH MEALS cloNIDine HCl (CATAPRES) 0.1 mg tablet Take 1 tablet by mouth once daily. TRULICITY 4.5 mg/0.5 mL pen injector INJECT 4.5MG SUBCUTANEOUSLY ONCE A WEEK VITAMIN C 500 mg tablet TAKE 1 TABLET BY MOUTH DAILY acyclovir (ZOVIRAX) 400 mg tablet Take 1 tablet by mouth twice daily. rOPINIRole (REQUIP) 0.5 mg tablet TAKE 1 TABLET BY MOUTH TWICE A DAY (NOON AND BEDTIME) Cholecalciferol, Vitamin D3, (VITAMIN D-3) 50 mcg (2,000 unit) cap Take 1 capsule by mouth once daily. omeprazole (PRILOSEC) 20 mg capsule Take 20 mg by mouth once daily. magnesium oxide (MAG-OX) 400 mg (241.3 mg magnesium) tablet Take 2 tablets by mouth once daily. atorvastatin (LIPITOR) 20 mg tablet Take 1 tablet by mouth once daily. AUSTEDO 6 mg tab Take 6 mg by mouth twice daily. Lancets lancets Test Four times a day. Insulin Dep? Yes E11.9 DM 2 blood sugar diagnostic (BLOOD GLUCOSE TEST) test strip Test Four times a day. Insulin Dep? Yes E11.9 DM 2 calcium carbonate 600 mg-cholecalciferol 200 units (CALCARB 600 WITH VITAMIN D) 600 mg(1,500mg) -200 unit tab Take 1 tablet by mouth twice daily. wheat dextrin (BENEFIBER SUGAR FREE, DEXTRIN,) 3 gram/4 gram powd 1/2 tablespoon per day x2 weeks. Then increase by 1/2 tablespoon every 2 weeks until you are taking 3 tablespoons per day in divided doses. polyethylene glycol 3350 (MIRALAX, GLYCOLAX) 17 gram/dose powder Take 17 g by mouth twice daily. Drink a mix of 1 scoop in 8oz of water/beverage once daily as needed for constipation. docusate sodium (COLACE) 100 mg capsule Take 1 capsule by mouth twice daily as needed for Constipation. COMPOUNDED PRESCRIPTION PORTABLE OXYGEN TANKS FOR USE IN BACK PACK USES 3 Lpm WHEN ON PORTABLE TANKto use with exertion DX R79.81 COMPOUNDED PRESCRIPTION EMERGENCY BACKUP OXYGEN TANK FOR WHEN PATIENT LOSES ELECTRICITY DX R79.81 CPAP Initiate AutoPAP @ 10/20 cm of water with EPR of 3 , humidification. Mask (per patient preference) optional chin strap (if indicated) , filters, tubing, humidifier and lifetime supplies. Dx. ARIANA 327.23 COMPOUNDED PRESCRIPTION Oxygen supplies dx: R79.81 R06.02 COMPOUNDED PRESCRIPTION CPAP supplies Dx: G47.33 COMPOUNDED PRESCRIPTION Home Oxygen, 2 litres with cpap machine blood sugar diagnostic (ONETOUCH ULTRA TEST) test strip Test blood sugar(s) 4 times daily. Dx: Type2 DM - Uncontrolled E11.65 Insulin: Yes meclizine (ANTIVERT) 25 mg tab Take 1 tablet by mouth three times daily as needed (dizziness). insulin needles, DISPOSABLE, (ULTICARE PEN NEEDLE) 31 gauge x 06/30 ndle UAD to inject insulins 5 times daily. Lancets (ACCU-CHEK FASTCLIX) lancets With AccBacchus Vascular fastclix lancing device. Check sugars 4x/day Dx:e11.65 Insulin: Yes No current facility-administered medications for this visit. EXAM: Last 3 Encounter BP Readings: Date: BP: 02/02/2022 136/82 01/26/2022 118/70 01/23/2022 171/78 Wt: 94.3 kg (208 lb) BMI: 35.70 kg/(m^2) LABS: Lab Results Component Value Date HBA1C 6.7 12/11/2021 HBA1C 7.0 07/30/2021 HBA1C 7.0 11/15/2020 HBA1C 7.2 09/02/2020 HBA1C 8.2 06/03/2020 CMP: Glucose 105 12/01/2021 BUN 10 12/01/2021 Creatinine, Whole Blood (iSTAT) 0.61 12/01/2021 Sodium 141 12/01/2021 Potassium 4.2 12/01/2021 Chloride 100 12/01/2021 CO2 30 12/01/2021 Protein, Total 6.0 12/01/2021 Albumin 4.2 12/01/2021 Calcium 9.7 12/01/2021 Alkaline Phosphatase 74 12/01/2021 Bilirubin, Total 0.6 12/01/2021 AST 15 12/01/2021 ALT 9 12/01/2021 Serum creatinine: 0.61 mg/dL 12/01/21 1012 Estimated creatinine clearance: 103.7 mL/min No results found for: GFR eGFR- (no units) Date Value 11/15/2020 >60 Lab Results Component Value Date CHOL 121 12/01/2021 CHOL 138 11/15/2020 LDL 52 12/01/2021 LDL 72 11/15/2020 HDL 46 12/01/2021 HDL 45 11/15/2020 TG 114 12/01/2021 TG 103 11/15/2020 The ASCVD Risk score (Vamsi GANDHI, et al., 2019) failed to calculate for the following reasons: The valid total cholesterol range is 130 to 320 mg/dL Albumin/Creat Ratio (mg/g) Date Value 07/30/2021 <10 PHARMACOTHERAPY ASSESSMENT/PLAN: 1. Uncontrolled type 2 diabetes mellitus with hyperglycemia (HCC) - ICD9: 250.02, ICD10: E11.65 A1c goal < 7%; goal (last A1c 6.7%); SMBG mostly at goal with some elevated readings related to recent surgery and decreased activity. Patient hopes to return to regular meal and activity soon. denies s/sx hypoglycemia; denies s/sx hyperglycemia. Today, will continue current regimen and reassessBG at next follow up. Of note, patient not able to tolerate higher metformin dose due to GI upset. Continue Toujeo 16 units once daily as prescribed Continue Trulicity 4.5 mg weekly Continue metformin 500 mg twice daily before meal Follow up: Patient is scheduled to see PCP team on 03/13/22. Patient to follow up with pharmD on 04/08/22. Patient verbalized understanding of instructions. Donis Harris PharmD, BCACP Primary Care Clinical Pharmacist The majority of the pharmacy visit (> 50%) was spent counseling and/or coordinating care for thepatient. [Telephonic] time was 18 minutes. documented in this encounterTrinity [facility]12-19-2022 History of Present illness Narrative* Kelli Davis PA-C - 02/02/2022 12:56 PM EST Kelli Davis PA-C Department of Orthopaedics Orthopaedics [address] [place] [id number] Dept: [phone] Dept February 02, 2022 CHIEF COMPLAINT: Post Op of the Left Knee and 1 week 3 days post opLeft knee manipulantion (under anesthesia/). 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 She denies any pain today, has returned to physical therapy. Reports a small improvement in her flexion. We will have her continue with physical therapy and follow-up as planned. Exam: Left knee was about 95 degrees of flexion. Imaging: Deferred today. Ms. Melanie Bird was advised as to contrast therapies and/or to take analgesics/anti-inflammatories as needed and all contraindications were reviewed. Supporting Information Below: Medications: Current Outpatient Medications Medication Sig dulaglutide (TRULICITY) 1.5 mg/0.5 mL pen injector Inject 1.5 mg subcutaneously one time a week. Use 3 mg and 1.5 mg trulicity injection to equal 4.5 mg one time a week. dulaglutide (TRULICITY) 3 mg/0.5 mL pen injector Inject 3 mg subcutaneously one time a week. Use 3 mg and 1.5 mg trulicity injection to equal 4.5 mg one time a week. flash glucose sensor (FREESTYLE IZABELLA 2 SENSOR) kit Use to monitor blood sugars 4 times daily gabapentin (NEURONTIN) 600 mg tablet Take 3 tablets by mouth daily at bedtime for 180 days. gabapentin (NEURONTIN) 300 mg capsule Take 3 capsules by mouth daily at lunch zolpidem (AMBIEN) 5 mg tablet Take 1 tablet by mouth at bedtime as needed for sedation for up to 90days. TAKE 1 TABLET BY MOUTH AT BEDTIME NEEDED FOR SEDATION Surgical Lubricant Jelly gel For MRI Female Pelvis, MRI department to provide. Administer intra-vaginal Surgilube immediately prior the MRI procedure (total amount to patient toleranace). insulin glargine U-300 conc (TOUJEO SOLOSTAR U-300 INSULIN) 300 unit/mL (1.5 mL) Inject 16 Units subcutaneously every morning. sertraline (ZOLOFT) 50 mg tablet Take 1 tablet by mouth once daily. OXYGEN, HOME THERAPY, 2 L/min by Mask route daily at bedtime. CPAP 2L at night fexofenadine (SEFERINO) 180 mg tablet TAKE 1 TABLET BY MOUTH DAILY metFORMIN ER (GLUCOPHAGE XR) 500 mg 24 hr tablet TAKE 2 TABLETS DAILY WITH MEALS cloNIDine HCl (CATAPRES) 0.1 mg tablet Take 1 tablet by mouth once daily. TRULICITY 4.5 mg/0.5 mL pen injector INJECT 4.5MG SUBCUTANEOUSLY ONCE A WEEK VITAMIN C 500 mg tablet TAKE 1 TABLET BY MOUTH DAILY acyclovir (ZOVIRAX) 400 mg tablet Take 1 tablet by mouth twice daily. rOPINIRole (REQUIP) 0.5 mg tablet TAKE 1 TABLET BY MOUTH TWICE A DAY (NOON AND BEDTIME) Cholecalciferol, Vitamin D3, (VITAMIN D-3) 50 mcg (2,000 unit) cap Take 1 capsule by mouth once daily. omeprazole (PRILOSEC) 20 mg capsule Take 20 mg by mouth once daily. magnesium oxide (MAG-OX) 400 mg (241.3 mg magnesium) tablet Take 2 tablets by mouth once daily. atorvastatin (LIPITOR) 20 mg tablet Take 1 tablet by mouth once daily. AUSTEDO 6 mg tab Take 6 mg by mouth twice daily. Lancets lancets Test Four times a day. Insulin Dep? Yes E11.9 DM 2 blood sugar diagnostic (BLOOD GLUCOSE TEST) test strip Test Four times a day. Insulin Dep? Yes E11.9 DM 2 calcium carbonate 600 mg-cholecalciferol 200 units (CALCARB 600 WITH VITAMIN D) 600 mg(1,500mg) -200 unit tab Take 1 tablet by mouth twice daily. wheat dextrin (BENEFIBER SUGAR FREE, DEXTRIN,) 3 gram/4 gram powd 1/2 tablespoon per day x2 weeks. Then increase by 1/2 tablespoon every 2 weeks until you are taking 3 tablespoons per day in divided doses. polyethylene glycol 3350 (MIRALAX, GLYCOLAX) 17 gram/dose powder Take 17 g by mouth twice daily. Drink a mix of 1 scoop in 8oz of water/beverage once daily as needed for constipation. docusate sodium (COLACE) 100 mg capsule Take 1 capsule by mouth twice daily as needed for Constipation. COMPOUNDED PRESCRIPTION PORTABLE OXYGEN TANKS FOR USE IN BACK PACK USES 3 Lpm WHEN ON PORTABLE TANKto use with exertion DX R79.81 COMPOUNDED PRESCRIPTION EMERGENCY BACKUP OXYGEN TANK FOR WHEN PATIENT LOSES ELECTRICITY DX R79.81 CPAP Initiate AutoPAP @ 10/20 cm of water with EPR of 3 , humidification. Mask (per patient preference) optional chin strap (if indicated) , filters, tubing, humidifier and lifetime supplies. Dx. ARIANA 327.23 COMPOUNDED PRESCRIPTION Oxygen supplies dx: R79.81 R06.02 COMPOUNDED PRESCRIPTION CPAP supplies Dx: G47.33 COMPOUNDED PRESCRIPTION Home Oxygen, 2 litres with cpap machine blood sugar diagnostic (ONETOUCH ULTRA TEST) test strip Test blood sugar(s) 4 times daily. Dx: Type2 DM - Uncontrolled E11.65 Insulin: Yes meclizine (ANTIVERT) 25 mg tab Take 1 tablet by mouth three times daily as needed (dizziness). insulin needles, DISPOSABLE, (ULTICARE PEN NEEDLE) 31 gauge x 5/16 ndle UAD to inject insulins 5 times daily. Lancets (ACCU-CHEK FASTCLIX) lancets With Accuchek fastclix lancing device. Check sugars 4x/day Dx:e11.65 Insulin: Yes aspirin, enteric coated (ASPIRIN, ENTERIC COATED) 81 mg EC tablet Take 1 tablet by mouth twice daily for 28 days. No current facility-administered medications for this visit. Allergies: Seroquel [Quetiapine Fumarate] and Victoza [Liraglutide] This note was partially generated using [email or web address] voice recognition system, and there may be some incorrect words, spellings, and punctuation that were not noted in checking the note before saving. Kelli Davis PA-C * Vera Rodarte Ma - 02/02/2022 12:29 PM EST Patient presents with: Left Knee - Post Op 1 week 3 days post opLeft knee manipulantion : under anesthesia AMB ROOMING INTAKE FLOWSHEET DATA Risk Screening Do you have concerns about personal safety or safety in the home?: No Pain Pain Level: 4 Pain Location: Knee-Left Description: Sharp Duration Amount of Time: (Post op) Frequency: Intermittent Intervention/Comfort measure: Medication Patient states she started physical therapy today and became light headed and stopped early. Has been doing home exercises. Taking Tylenol for the pain and is effective. [facility] History of Present illness Narrative* Curt Bardales PT - 02/02/2022 12:19 PM EST Episode Visit Count: 19 Therapist That Will Accept/Oversee The Plan Of Care: Curt Bardales Start of Care Date: 11/21/21 Onset Date: 11/22/19 Plan of Care Certification Date: 12/26/21 Next Certification Due Date: 02/16/22 Patient Identified by Name and Date of : Yes REHABILITATION AND SPORTS THERAPY PHYSICAL THERAPY TREATMENT NOTE ASSESSMENT: Melanie Bird tolerated the session with decreased activity tolerance due to not feeling well. Pt stated that she felt dizzy upon sitting from performing supine heel slides. Pt then stated she felt lgiht headed. Pt provided glass of water and vitals taken. BP 136/82, pulse 66, and [id number]%. Pt seated and after 5 minutes pulse was 77 and Sp02 98%. Session was ended at his time and notfurther exercises performed. Pt stated she felt better upon leaving therapy [facility] [place] [facility] had another appointment that she needed to attend. She demonstrated good motivation to keep pushing her knee ROM. The patient will continue to benefit from ongoing skilled physical therapy to progress toward set goals. PLAN FOR NEXT VISIT: Progress knee ROM as tolerated. LE strengthening SUBJECTIVE: Patient Reason for Visit: Pt states that she's feeling a shrp like shooting on the inside of her L knee. Pain: Pain Pain Level: 0 Pain Location: Knee - Left Frequency: (only with movement in certain directions.) Post Treatment Pain Post Treatment Pain Level: No Change Post Treatment Pain Location: Knee - Left OBJECTIVE MEASURES WITH LEVEL OF FUNCTION: LE AROM L Knee Flexion: 95 Degrees TREATMENT: Therapeutic Exercise: 1: Seated SciFit 1.0 x 5 min (Working on knee flexion ROM) 2: *Educated pt on BP and safety measures to take if she feels like this later on. And advised pt to hold off on exercises due to safety. 9: Supine heel slides x 10 reps AROM, 1x5 with strap Skilled Intervention: Patient was educated in proper exercise technique and purpose for exercises. Skilled judgment was provided in selection of appropriate interventions. Correct performance of therapeutic exercises was facilitated with verbal cuing. Additional time necessary for taking vitals due to pt feeling dizzy and light-headed. Billing Therapeutic Exercise Treatment Minutes: 25 Total Treatment Time Minutes (timed/untimed): 25 ARTHUR Trotter PT documented in this encounterTr[facility]12-15-2022 History of Present illness Narrative* Curt Bardales PT - 01/29/2022 9:08 AM EST Episode Visit Count: 18 Therapist That Will Accept/Oversee The Plan Of Care: Curt Bardales Start of Care Date: 11/21/21 Onset Date: 11/22/19 Plan of Care Certification Date: 12/26/21 Next Certification Due Date: 02/16/22 Patient Identified by Name and Date of : Yes REHABILITATION AND SPORTS THERAPY PHYSICAL THERAPY TREATMENT NOTE ASSESSMENT: Melanie Bird tolerated the session with no issues. She demonstrated improvements in Lknee ROM since manipulation. The patient will continue to benefit from ongoing skilled physical therapy to progress toward set goals. PLAN FOR NEXT VISIT: Progress knee ROM as tolerated. LE strengthening SUBJECTIVE: Patient Reason for Visit: Pt states she feels sore after the manipulation to the knee. Has less pain with steps. Pain: Pain Pain Level: 1 Pain Location: Knee - Left Post Treatment Pain Post Treatment Pain Location: Knee - Left OBJECTIVE MEASURES WITH LEVEL OF FUNCTION: LE AROM L Knee Extension: 0 Degrees L Knee Flexion: 97 Degrees TREATMENT: Therapeutic Exercise: 1: Seated SciFit 1.0 x 5 min (Working on knee flexion ROM) 2: Squat at parallel bars 2 x 10 3: B heel raise 2 x 15 reps 4: 6 F step-up x 10 reps 5: 8 F step up 2 x 10 6: Knee flexion stretch on 8 step 2 x 10 holding 10 sec each 7: Supine SLR 3# 3 x 8 reps 8: Hooklying bridge x 10 9: Supine heel slides x 10 reps 10: Supine knee flexion over bolster x 5 min 11: SAQ over bolster 2 x 10 Skilled Intervention: Patient was educated in proper exercise technique and purpose for exercises. Skilled judgment was provided in selection of appropriate interventions. Provided written instruction for home exercise program to facilitate proper performance and compliance. Billing Therapeutic Exercise Treatment Minutes: 54 Total Treatment Time Minutes (timed/untimed): 54 Curt Bardales PT documented in this encounterTr[facility]12-13-2022 Miscellaneous Notes* Telephone Encounter - Marycruz Fields Pss - 01/27/2022 1:44 PM EST Created sleep study referral. The patient will have sleep study done at the [facility]. * Telephone Encounter - Ava Cisneros LPN - 01/27/2022 10:53 AM EST Faxed orders to [facility] Sleep disorder center for patient's sleep study. Ava Cisneros LPN documented in this encounterTr[facility]12-12-2022 Miscellaneous Notes* Telephone Encounter - Soniya Perez RN - 01/26/2022 10:12 AM EST [place] [facility] reports trulicity 4.5 mg is unavailable. Asking if pcp would send order for the trulicity 3 mg and trulicity 1.[address]. Pended in case you want to order them, otherwise can delete them. documented in this encounterTr[facility]12-08-2022 History of Present illness Narrative* Curt Bardales, PT - 01/22/2022 12:17 PM EST Episode Visit Count: 17 Therapist That Will Accept/Oversee The Plan Of Care: Curt Bardales Start of Care Date: 11/21/21 Onset Date: 11/22/19 Plan of Care Certification Date: 12/26/21 Next Certification Due Date: 02/16/22 Patient Identified by Name and Date of : Yes REHABILITATION AND SPORTS THERAPY PHYSICAL THERAPY TREATMENT NOTE ASSESSMENT: Melanie Bird tolerated the session with no issues. She demonstrated difficulty with knee flexion ROM. The patient will continue to benefit from ongoing skilled physical therapy to progress toward set goals. PLAN FOR NEXT VISIT: Progress knee ROM as tolerated SUBJECTIVE: Patient Reason for Visit: Pt states she is doing ok. Has an manip schedule for tomorrowfor the knee. Pain: Pain Pain Location: Knee - Left Post Treatment Pain Post Treatment Pain Location: Knee - Left OBJECTIVE MEASURES WITH LEVEL OF FUNCTION: TREATMENT: Therapeutic Exercise: 2: SciFit 5 min 3: STS x10 then x 12 4: Knee flexion stretch on stairs x 10 holding 5 sec 5: 6 F step-up x 10 6: Seated LAQ 4# 2 x 15 reps 7: Seated april 4# 2 x 15 reps 8: Standing hip abd 4# 2 x 15 reps each 9: Standing knee curl 4# x 10 10: Seated knee flexion stretch overpressure from the RLE x 5 holding 10 sec each Skilled Intervention: Patient was educated in proper exercise technique and purpose for exercises. Provided written instruction for home exercise program to facilitate proper performance and compliance. Correct performance of therapeutic exercises was facilitated with verbal and visual cuing. Billing Therapeutic Exercise Treatment Minutes: 45 Total Treatment Time Minutes (timed/untimed): 45 Curt Bardales PT documented in this encounterTr[facility]12-07-2022 Instructions* Patient Instructions* Selena Gibbs 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 - 01/21/2022 2:46 PM EST PATIENT PREOPERATIVE INSTRUCTIONS Viet Johnson MD has scheduled you for your procedure at this surgery center: [facility]: [phone] -- [address] [address]. Please read below carefully for your personalized instructions. Dietary Restrictions: - No solid food after midnight. - You may have 12 ounces of clear liquids (water, clear juices such as apple juice or gatorade, carbonated beverages, clear tea, black coffee, jello) until 2 hours before scheduled arrival at facility. No red/purple coloring and no creamer/sugar Medications: Unless instructed differently below, stay on all of your medications until your surgery. Approved medications to take the morning of surgery with a sip of water: Sertraline, ROPINIRole (REQUIP), Omeprazole (PRILOSEC), Gabapentin, Seferino, Clonidine, Atorvastatin, Acyclovir, Austedo - No diabetic medication the morning of surgery. - Accucheck day of surgery. - Take half dose of long acting insulin (Lantus, NPH) the day of surgery. If you start any new medications after today's visit, please contact the surgeon's office. Blood Thinning Medications: - Stop NSAIDS (Ibuprofen, Advil, Aleve, Motrin, Celebrex, Mobic, etc.) 7 days before surgery, as directed by your surgeon. - Stop Aspirin 7 days before surgery, as directed by your surgeon. - Stop Vitamin E, ALL multi-vitamins, herbals and dietary supplements 7 days before surgery. - You may take Tylenol (Acetaminophen) or any of your pain medications that do not contain aspirin or NSAIDS as needed. Important Reminders: - If you use CPAP/BIPAP, bring the machine with you to the surgery center. - If you are prescribed inhalers for breathing, continue using them. - Candy, mints, and tobacco products are NOT permitted the morning of surgery. - Hearing aids, dentures and glasses may be worn the morning of surgery. - NO jewelry, body piercings, makeup, hairpins or contacts are to be worn the day of surgery. If you develop symptoms such as a fever, cold, or flu, or have other changes to your health within TWO DAYS of scheduled surgery or the morning of surgery, please contact the surgery center above. Personal Belongings: -Please have photo ID and insurance cards. -If you do not have a copy of advance directives on file with us, please bring a copy with you on the day of surgery. - Leave ALL valuables and money at home or with family members. For Outpatient Procedures: - YOU MUST HAVE A RESPONSIBLE PAINTER SPRAY TAKE YOU HOME. A WORKERS COMPENSATION PARALEGAL OR IMAGING ENGINEER CANNOT BE MADE A RESPONSIBLE PAINTER SPRAY. - We recommend that a responsible person stays with you overnight to take care of you. - You cannot stay in a hotel alone after outpatient surgery. You will not be permitted to have yoursurgery, if you do not have someone to take care of you. Arrival Time for Surgery: - The Surgery Center or hospital where you are having surgery will call the afternoon before surgery (or Wednesday for Wednesday surgery) with a scheduled arrival time. - If you have not heard by 4 pm, please contact the surgery center above. Please be aware that emergency situations arise, which may delay or change your surgical time. If this happens, we will notify you as soon as possible and regret any inconvenience. If you already have an Advance Directive, please fax a copy to [phone] or email to for it to be added to your chart. If you do not have an Advance Directive, you can find the appropriate form and more information at [email or web address]. We recommend that youcomplete the Advance Directive form found on the website and bring it with you the day of your surgery. It can be witnessed and scanned into your chart that day. Selena Gibbs APRN.SABINE documented in this encounterTr[facility]12-07-2022 History and physical note * Selena Gibbs APRN.CNP - 01/21/2022 2:41 PM EST HISTORY AND PHYSICAL EXAMINATION SERVICE DATE: 01/21/2022 SERVICE TIME: 3:05 PM PRIMARY CARE PHYSICIAN: Modesta Daley MD REASON FOR VISIT: Melanie Bird is a 66 year old female who is scheduled for Procedure(s): MANIPULATION KNEE JOINT UNDER GENERAL ANES (Left) at the request of Dr. Viet Johnson for consultation. My final recommendation will be communicated back to the requesting physician by way of sharedmedical record or letter. Subjective The patient has the following: ACTIVE PROBLEM LIST Diabetes Mellitus Type 2 (Hcc) Ptsd (Post-Traumatic Stress Disorder) Rls (Restless Legs Syndrome) Low Oxygen Saturation Tardive Dyskinesia Hyperlipidemia With Target Ldl Less Than 70 Ariana (Obstructive Sleep Apnea) Vitamin D Deficiency Ibs (Irritable Bowel Syndrome) Respiratory Abnormality, Unspecified Hypertonicity of Bladder Cataracts, Bilateral Pedal Edema Benign Paroxysmal Positional Vertigo Plantar Fasciitis, Right Congenital Pes Cavus Primary Osteoarthritis of Left Knee Chronic Pain of Left Knee Obesity, Class III, BMI >= 40 (morbid obesity) ([facility]) E66.01 Incontinence of Feces Wound Disruption Vertigo History of Implantation of Artificial Sphincter Grief Reaction Wound of Gluteal Cleft Parkinson's Disease (Hcc) S/P Gastric Sleeve Procedure Gerd (Gastroesophageal Reflux Disease) Swelling COVID-19 Immunization Status COVID-19 VACCINE (Series Information) Completed 12/16/2021 Imm Admin: COVID-19 booster vaccine, age 12+ yr, bivalent (MODERNA) 07/03/2021 Imm Admin: COVID-19 vaccine, full dose (MODERNA) 12/19/2020 Imm Admin: COVID-19 vaccine, full dose (MODERNA) Only the first 3 history entries have been loaded, but more history exists. CHIEF COMPLAINT: Pre-op exam HPI: Melanie Bird is a 66 year old seen for PAC due to scheduled above surgery because fibrosis left knee joint. 01/19/2022, Dr. Viet Johnson CHIEF COMPLAINT: Post Op of the Left Knee and 11 weeks 5 days post op Robotic Left TKA. HPI Patient states she is continuing physical therapy and home exercises. Patient states she has been walking twice a day as well. Taking Tylenol for the pain as needed and is effective. 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 With her history of diabetes, I am hesitant to try a prednisone course with her. Instead, we reviewed the risks, benefits, alternatives and potential complications involving manipulation under anesthesia. We will try to get her scheduled promptly. REVIEW OF SYSTEMS: General: No weight loss, malaise or fevers. Neurological: +TD, on rx, following Dr. White at [facility] in [place] +RLS on rx. No history of TIA's, stroke, FAMILY SERVICE WORKER tumor, impaired sensorium, hemiplegia, paraplegia or quadraplegia. No neurological symptoms or problems. Negative for: cerebral palsy, headaches, hemiplegia, multiple sclerosis, Parkinson's disease and seizures. Respiratory: No history of current cough or dyspnea, or pneumonia in the past 6 weeks. No history of respiratory/pulmonary symptoms or problems. Negative for: asthma, COPD, pneumonia within 6 weeks, tobacco use and URI < 2 weeks. Cardiovascular: Positive for: hyperlipidemia (on rx) Negative for: anticoagulation therapy, arrhythmia, atrial fibrillation, CAD, chest pain, CHF, congenital heart defect, DVT/PE, hypertension, recent CT, murmur/valvular heart disease, open heart surgery and valve surgery. GI: +s/p gastric sleeve 05/2021 +chronic diarrhea, s/p aritificial spinchter s/p removal, pt states taking clonidine to aid with this Positive for: GERD (rx as needed) Negative for: abdominal pain, dysphagia, diverticulitis, hepatitis, irritable bowel syndrome, inflammatory bowel disease, liver disease, nausea, pancreatitis, vomiting and ETOH >2 drinks/day. : Positive for: urinary incontinence (s/p stimulator). Negative for: nephrolithiasis, renal failure and urinary tract infection. 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 Endocrine: Positive for: diabetes mellitus. Patient's diabetes mellitus is controlled by insulin, oral agents and weekly injectable. Negative for: hypothyroidism. Hematology: No history of bleeding or clotting disorder. Patient is not taking anti-coagulation or platelet medications. No history of hematological symptoms or problems. Oncology: No history of CA metastasis, chemo within 30 days, or radiotherapy within 90 days. No history of oncological symptoms or problems. Psych: No history of psychiatric symptoms or problems. Musculoskeletal: See HPI. +s/p left TKA 10/2021 Skin: Negative for lesions, rash and itching. PAST MEDICAL HISTORY Diagnosis Date Depression Diabetes mellitus type 2, uncontrolled High cholesterol History of colon polyps History of gallstones IBS (irritable bowel syndrome) Obesity 04/25/2013 BMI 48.43 ARIANA (obstructive sleep apnea) 03/06/2013 Parkinson disease (HCC) PAST SURGICAL HISTORY Procedure Laterality Date ANAL SPHINCTEROPLASTY SPHINCTEROPLASTY ANAL W/ IMPLANT ARTIFICIAL SPHINCTER ADULT BARIATRIC SURGERY HX 05/28/2021 CATARACT EXTRACTION HX Bilateral 08/2012 COLONOSCOPY GEN ANES 04/2019 INCISE FINGER TENDON SHEATH 12/20/2012 Left 3rd trigger finger release PAST SURGICAL HISTORY OF 06/2012 Interstim PAST SURGICAL HISTORY OF Right trigger thumb REMOVAL GALLBLADDER 2000 TOTAL KNEE REPLACEMENT Left 10/29/2021 Left robotic total knee replacement FAMILY HISTORY Problem Relation Age of Onset Diabetes Father Heart Father Diabetes Mother Heart Mother Colon Cancer Sister Social History Tobacco Use Smoking status: Former Packs/day: 0.10 Years: 3.00 Pack years: 0.30 Types: Cigarettes Quit date: 04/25/1988 Years since quittin.7 Smokeless tobacco: Never Tobacco comments: No smoking in childhood home. Roomate of last 10 years smoked while living with patient. Vaping Use Vaping Use: Never used Substance Use Topics Alcohol use: No Drug use: No Prior to Admission medications as of 01/21/22 1433 Medication Sig Last Dose Taking flash glucose sensor (FREESTYLE IZABELLA 2 SENSOR) kit Use to monitor blood sugars 4 times daily Taking Yes gabapentin (NEURONTIN) 600 mg tablet Take 3 tablets by mouth daily at bedtime for 180 days. Taking Yes gabapentin (NEURONTIN) 300 mg capsule Take 3 capsules by mouth daily at lunch Taking Yes zolpidem (AMBIEN) 5 mg tablet Take 1 tablet by mouth at bedtime as needed for sedation for up to 90days. TAKE 1 TABLET BY MOUTH AT BEDTIME NEEDED FOR SEDATION Taking Yes Surgical Lubricant Jelly gel For MRI Female Pelvis, MRI department to provide. Administer intra-vaginal Surgilube immediately prior the MRI procedure (total amount to patient toleranace). Taking Yes insulin glargine U-300 conc (TOUJEO SOLOSTAR U-300 INSULIN) 300 unit/mL (1.5 mL) Inject 16 Units subcutaneously every morning. Taking Yes sertraline (ZOLOFT) 50 mg tablet Take 1 tablet by mouth once daily. Taking Yes OXYGEN, HOME THERAPY, 2 L/min by Mask route daily at bedtime. CPAP 2L at night Taking Yes fexofenadine (SEFERINO) 180 mg tablet TAKE 1 TABLET BY MOUTH DAILY Taking Yes metFORMIN ER (GLUCOPHAGE XR) 500 mg 24 hr tablet TAKE 2 TABLETS DAILY WITH MEALS Taking Yes cloNIDine HCl (CATAPRES) 0.1 mg tablet Take 1 tablet by mouth once daily. Taking Yes TRULICITY 4.5 mg/0.5 mL pen injector INJECT 4.5MG SUBCUTANEOUSLY ONCE A WEEK Taking Yes VITAMIN C 500 mg tablet TAKE 1 TABLET BY MOUTH DAILY Taking Yes acyclovir (ZOVIRAX) 400 mg tablet Take 1 tablet by mouth twice daily. Taking Yes rOPINIRole (REQUIP) 0.5 mg tablet TAKE 1 TABLET BY MOUTH TWICE A DAY (NOON AND BEDTIME) Taking Yes Cholecalciferol, Vitamin D3, (VITAMIN D-3) 50 mcg (2,000 unit) cap Take 1 capsule by mouth once daily. Taking Yes omeprazole (PRILOSEC) 20 mg capsule Take 20 mg by mouth once daily. Taking Yes magnesium oxide (MAG-OX) 400 mg (241.3 mg magnesium) tablet Take 2 tablets by mouth once daily. Taking Yes atorvastatin (LIPITOR) 20 mg tablet Take 1 tablet by mouth once daily. Taking Yes AUSTEDO 6 mg tab Take 6 mg by mouth twice daily. Taking Yes Lancets lancets Test Four times a day. Insulin Dep? Yes E11.9 DM 2 Taking Yes blood sugar diagnostic (BLOOD GLUCOSE TEST) test strip Test Four times a day. Insulin Dep? Yes E11.9 DM 2 Taking Yes calcium carbonate 600 mg-cholecalciferol 200 units (CALCARB 600 WITH VITAMIN D) 600 mg(1,500mg) -200 unit tab Take 1 tablet by mouth twice daily. Taking Yes wheat dextrin (BENEFIBER SUGAR FREE, DEXTRIN,) 3 gram/4 gram powd 1/2 tablespoon per day x2 weeks. Then increase by 1/2 tablespoon every 2 weeks until you are taking 3 tablespoons per day in divided doses. Taking Yes polyethylene glycol 3350 (MIRALAX, GLYCOLAX) 17 gram/dose powder Take 17 g by mouth twice daily. Drink a mix of 1 scoop in 8oz of water/beverage once daily as needed for constipation. Taking Yes docusate sodium (COLACE) 100 mg capsule Take 1 capsule by mouth twice daily as needed for Constipation. Taking Yes COMPOUNDED PRESCRIPTION PORTABLE OXYGEN TANKS FOR USE IN BACK PACK USES 3 Lpm WHEN ON PORTABLE TANKto use with exertion DX R79.81 Taking Yes COMPOUNDED PRESCRIPTION EMERGENCY BACKUP OXYGEN TANK FOR WHEN PATIENT LOSES ELECTRICITY DX R79.81 Taking Yes CPAP Initiate AutoPAP @ 10/20 cm of water with EPR of 3 , humidification. Mask (per patient preference) optional chin strap (if indicated) , filters, tubing, humidifier and lifetime supplies. Dx. ARIANA 327.23 Taking Yes COMPOUNDED PRESCRIPTION Oxygen supplies dx: R79.81 R06.02 Taking Yes COMPOUNDED PRESCRIPTION CPAP supplies Dx: G47.33 Taking Yes COMPOUNDED PRESCRIPTION Home Oxygen, 2 litres with cpap machine Taking Yes blood sugar diagnostic (ONETOUCH ULTRA TEST) test strip Test blood sugar(s) 4 times daily. Dx: Type2 DM - Uncontrolled E11.65 Insulin: Yes Taking Yes meclizine (ANTIVERT) 25 mg tab Take 1 tablet by mouth three times daily as needed (dizziness). Taking Yes insulin needles, DISPOSABLE, (ULTICARE PEN NEEDLE) 31 gauge x 5/16 ndle UAD to inject insulins 5 times daily. Taking Yes Lancets (ACCU-CHEK FASTCLIX) lancets With [employer] fastclix lancing device. Check sugars 4x/day Dx:e11.65 Insulin: Yes Taking Yes aspirin, enteric coated (ASPIRIN, ENTERIC COATED) 81 mg EC tablet Take 1 tablet by mouth twice daily for 28 days. No medication comments found. ALLERGIES Allergen Reactions Seroquel [Quetiapin* Mental Status Change Victoza [Liraglutid* GI Upset Objective PHYSICAL EXAM: General: alert and oriented (x3), healthy appearance and obese. Pertinent negatives noted - not distressed. Skin: normal color, no rash or lesions. HEENT: EOM intact and pupils equal round. Pertinent negatives noted - no carotid bruit. Cardiovascular: regular rate and rhythm, normal S1 and S2, no rub, murmurs, or gallop. Respiratory: normal breath sounds, no wheezes or crackles. No chest wall deformity or tenderness. Abdomen: soft. Pertinent negatives noted - not tender. Extremities: no deformity, no edema or tenderness, no joint swelling or clubbing. Neurological: normal cognition and motor skills. Gait normal. No weakness or sensory deficit. PAIN ASSESSMENT: Pain Pain Level: 3 Pain Location: Knee-Left Description: Aching Duration Amount of Time: 3 Duration Units: Months Frequency: Continuous Intervention/Comfort measure: Relaxation VITALS: BP 114/62 Pulse 78 Temp (Src) 96.6 (Temporal) Resp 18 Ht 5' 4 (1.63m) Wt 217 lb (98.4kg) SpO2 94% LMP 04/10/2012 BMI 37.23 kg/(m^2). Diagnostic tests reviewed for today's visit: Lab Value Units Date High Low HB 14.6 g/dL 12/01/2021 15.5 11.5 HCT 46.6 % 12/01/2021 46.0 36.0 WBC 6.81 k/uL 12/01/2021 11.00 3.70 PLT 269 k/uL 12/01/2021 400 150 NA 141 mmol/L 12/01/2021 144 136 K 4.2 mmol/L 12/01/2021 5.1 3.7 GLUC 105 mg/dL 12/01/2021 99 74 BUN 10 mg/dL 12/01/2021 21 7 CREAT 0.61 mg/dL 12/01/2021 0.96 0.58 PTSEC No results within date range. INR No results within date range. APTT No results within date range. ALT 9 U/L 12/01/2021 38 7 AST 15 U/L 12/01/2021 35 13 TBILI 0.6 mg/dL 12/01/2021 1.3 0.2 TSH No results within date range. Lab Value Units Date High Low HCGQT No results within date range. UHCG No results within date range. HCG, BODY* No results within date range. Lab Value Units Date High Low ABORHD No results within date range. ABSCREEN No results within date range. Hemoglobin A1C (%) Date Value 07/30/2021 7.0 11/15/2020 7.0 09/02/2020 7.2 06/03/2020 8.2 04/15/2020 8.7 12/18/2019 9.1 Hemoglobin A1C (POCT) (%) Date Value 12/11/2021 6.7 No results found for this or any previous visit (from the past 8760 hour(s)). No results found for this or any previous visit (from the past 41932 hour(s)). Assessment Diabetes mellitus type 2 (HCC) Assessment: controlled by IDDM, weekly injectable and oral agent Hemoglobin A1C (%) Date Value 11/15/2020 7.0 Hemoglobin A1C (POCT) (%) Date Value 12/11/2021 6.7 Tardive dyskinesia Assessment: stable on rx, following neurology at [facility] Swelling Assessment: hx, improved, no longer taking rx S/P gastric sleeve procedure Assessment: hx RLS (restless legs syndrome) Assessment: stable on rx PTSD (post-traumatic stress disorder) Assessment: stable on rx per pt Primary osteoarthritis of left knee Assessment: s/p left TKA 10/2021 ARIANA (obstructive sleep apnea) Assessment: c/w CPAP and oxygen at night Incontinence of feces Assessment: wears depends, Pt taking Clonidine for this, s/p artifical spinchter and removal Hypertonicity of bladder Assessment: s/p stimulator Hyperlipidemia with target LDL less than 70 Assessment: c/w statin GERD (gastroesophageal reflux disease) Assessment: controlled on rx [place] Activity Status Index: METS: Climb a flight of stairs or walk up a hill (5.50 METs) DASI Score: 5.5 Patient denies any chest pain or undue shortness of breath with the above physical activity. Clinical Frailty Scale: 3. Well, with treated comorbid disease STOP-Bang Score: Snores loudly Often feels tired, fatigued, or sleepy during the daytime Has been observed to stop breathing or choking/gasping during sleep BMI greater than 35 kg/m^2 Patient over 50 years old Denies having high blood pressure Does not have a large neck Non-male patient STOP-Bang Score: 5 [id number] Score: Age: <65 Sex: female CHF history: No Hypertension history: No Stroke/TIA/thromboembolism history: No Vascular disease history: No Diabetes history: Yes [id number] Score: 2 ARISCAT Score: Age: 51-80 Preoperative SpO2: >=96% Respiratory infection in the last month: No Preoperative anemia: No Surgical incision: peripheral Duration of surgery: <2 hrs Emergency procedure: No ARISCAT Score: 3 ASA Class: 3 ANESTHESIA FINDINGS: Intubation History: No history of difficult intubation Significant Anesthesia Considerations: none Airway History: No history of difficult airway I - PHYSICAL EVALUATION AIRWAY Patient intubated: No. Tracheostomy tube not present Mallampati: III. TM distance: >3 FB. Neck ROM: full ROM without neurological symptoms. Mouth opening: adequate. Short neck: no. Thick neck: yes Solorzano present: no DENTAL Dental findings: teeth intact. II - ANESTHESIA PLAN ASA Score: 3 Anesthetic Plan: other Anesthetic plan additional comments: *PACC/TCI - anesthesia choice. Beta Omar Monitoring Plan Post Procedure Analgesic Plan Informed Consent Anesthetic risks, benefits, alternatives, personnel and consent discussed: yes. Patient / Responsible Alliance Party agrees to proceed: yes Patient / Surrogate agrees to blood products: blood products not planned Prepared for Surgery: optimally prepared for surgery. CONSULTS: Patient does not require consults for optimization at this time Planned Anesthetic: other anesthesia choice The Following Tests/Procedures Have Been Initiated: No orders of the defined types were placed in this encounter. Instructions Given to Patient: Instructions located in the after visit summary. Patient given verbal and written preop instructions and voices comprehension and compliance. SIGNATURE: Selena Gibbs APRN.CNP PATIENT NAME: Melanie Bird DATE: January 21, 2022 TIME: 2:41 PM PAGER/CONTACT #: documented [facility]Tr[facility] Miscellaneous Notes* Telephone Encounter - Marycruz Sweeney Ma - 01/20/2022 10:46 AM EST Post op appointments have been scheduled and mailed to patient. Surgery has been scheduled as requested. * Telephone Encounter - Marycruz Sweeney Ma - 01/19/2022 4:30 PM EST Surgical request completed. * Telephone Encounter - Marycruz Sweeney Ma - 01/19/2022 1:40 PM EST Patient to be scheduled for left knee manipulation under anesthesia at [facility] on 01/23/2022. documented in this encounterTr[facility]12-[facility]-2022 Miscellaneous Notes* Telephone Encounter - Donis Harris RPh - 01/20/2022 10:31 AM EST Patient fills this through her mail order pharmacy, [facility]. Sending e-rx through mail order. Requested Prescriptions Signed Prescriptions Disp Refills flash glucose sensor (FREESTYLE IZABELLA 2 SENSOR) kit 6 Each 3 Sig: Use to monitor blood sugars 4 times daily Authorizing Provider: MODESTA DALEY Ordering User: DONSI HARRIS RPh * Telephone Encounter - Davina Murray LPN - 01/20/2022 10:21 AM EST Pt calls to report she needs Freestyle Izabella Sensors rx. Pt reports she gets this through a programand said Donis does it for me. Please review and advise. Davina Murray LPN documented in this encounterTr[facility]12-05-2022 History of Present illness Narrative* Viet Johnson MD - 01/19/2022 11:06 AM EST Viet Johnson MD Department of Orthopaedics Orthopa[facility] [address] [place] [address] Dept: [phone] Dept January 19, 2022 CHIEF COMPLAINT: Post Op of the Left Knee and 11 weeks 5 days post op Robotic Left TKA. HPI Patient states she is continuing physical therapy and home exercises. Patient states she has been walking twice a day as well. Taking Tylenol for the pain as needed and is effective. 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 With her history of diabetes, I am hesitant to try a prednisone course with her. Instead, we reviewed the risks, benefits, alternatives and potential complications involving manipulation under anesthesia. We will try to get her scheduled promptly. Exam: She is lacking just a few degrees of terminal extension and her flexion actively is just shy of 90 and I can passively get her to maybe 92. Supporting Information Below: Medications: Current Outpatient Medications Medication Sig zolpidem (AMBIEN) 5 mg tablet Take 1 tablet by mouth at bedtime as needed for sedation for up to 90days. TAKE 1 TABLET BY MOUTH AT BEDTIME NEEDED FOR SEDATION insulin glargine U-300 conc (TOUJEO SOLOSTAR U-300 INSULIN) 300 unit/mL (1.5 mL) Inject 16 Units subcutaneously every morning. sertraline (ZOLOFT) 50 mg tablet Take 1 tablet by mouth once daily. OXYGEN, HOME THERAPY, 2 L/min by Mask route daily at bedtime. CPAP 2L at night fexofenadine (SEFERINO) 180 mg tablet TAKE 1 TABLET BY MOUTH DAILY metFORMIN ER (GLUCOPHAGE XR) 500 mg 24 hr tablet TAKE 2 TABLETS DAILY WITH MEALS cloNIDine HCl (CATAPRES) 0.1 mg tablet Take 1 tablet by mouth once daily. gabapentin (NEURONTIN) 600 mg tablet Take 3 tablets by mouth daily at bedtime for 180 days. TRULICITY 4.5 mg/0.5 mL pen injector INJECT 4.5MG SUBCUTANEOUSLY ONCE A WEEK VITAMIN C 500 mg tablet TAKE 1 TABLET BY MOUTH DAILY gabapentin (NEURONTIN) 300 mg capsule TAKE 3 CAPSULES BY MOUTH DAILY WITH LUNCH acyclovir (ZOVIRAX) 400 mg tablet Take 1 tablet by mouth twice daily. rOPINIRole (REQUIP) 0.5 mg tablet TAKE 1 TABLET BY MOUTH TWICE A DAY (NOON AND BEDTIME) Cholecalciferol, Vitamin D3, (VITAMIN D-3) 50 mcg (2,000 unit) cap Take 1 capsule by mouth once daily. omeprazole (PRILOSEC) 20 mg capsule Take 20 mg by mouth once daily. flash glucose sensor (ZyncdSTYLE IZABELLA 2 SENSOR) kit Use to monitor blood sugars 4 times daily magnesium oxide (MAG-OX) 400 mg (241.3 mg magnesium) tablet Take 2 tablets by mouth once daily. atorvastatin (LIPITOR) 20 mg tablet Take 1 tablet by mouth once daily. AUSTEDO 6 mg tab Take 6 mg by mouth twice daily. Lancets lancets Test Four times a day. Insulin Dep? Yes E11.9 DM 2 blood sugar diagnostic (BLOOD GLUCOSE TEST) test strip Test Four times a day. Insulin Dep? Yes E11.9 DM 2 calcium carbonate 600 mg-cholecalciferol 200 units (CALCARB 600 WITH VITAMIN D) 600 mg(1,500mg) -200 unit tab Take 1 tablet by mouth twice daily. wheat dextrin (BENEFIBER SUGAR FREE, DEXTRIN,) 3 gram/4 gram powd 1/2 tablespoon per day x2 weeks. Then increase by 1/2 tablespoon every 2 weeks until you are taking 3 tablespoons per day in divided doses. polyethylene glycol 3350 (MIRALAX, GLYCOLAX) 17 gram/dose powder Take 17 g by mouth twice daily. Drink a mix of 1 scoop in 8oz of water/beverage once daily as needed for constipation. docusate sodium (COLACE) 100 mg capsule Take 1 capsule by mouth twice daily as needed for Constipation. COMPOUNDED PRESCRIPTION PORTABLE OXYGEN TANKS FOR USE IN BACK PACK USES 3 Lpm WHEN ON PORTABLE TANKto use with exertion DX R79.81 COMPOUNDED PRESCRIPTION EMERGENCY BACKUP OXYGEN TANK FOR WHEN PATIENT LOSES ELECTRICITY DX R79.81 CPAP Initiate AutoPAP @ 10/20 cm of water with EPR of 3 , humidification. Mask (per patient preference) optional chin strap (if indicated) , filters, tubing, humidifier and lifetime supplies. Dx. ARIANA 327.23 COMPOUNDED PRESCRIPTION Oxygen supplies dx: R79.81 R06.02 COMPOUNDED PRESCRIPTION CPAP supplies Dx: G47.33 COMPOUNDED PRESCRIPTION Home Oxygen, 2 litres with cpap machine blood sugar diagnostic (ONETOUCH ULTRA TEST) test strip Test blood sugar(s) 4 times daily. Dx: Type2 DM - Uncontrolled E11.65 Insulin: Yes meclizine (ANTIVERT) 25 mg tab Take 1 tablet by mouth three times daily as needed (dizziness). insulin needles, DISPOSABLE, (ULTICARE PEN NEEDLE) 31 gauge x 5/16 ndle UAD to inject insulins 5 times daily. Lancets (ACCU-CHEK FASTCLIX) lancets With [employer] fastclix lancing device. Check sugars 4x/day Dx:e11.65 Insulin: Yes Surgical Lubricant Jelly gel For MRI Female Pelvis, MRI department to provide. Administer intra-vaginal Surgilube immediately prior the MRI procedure (total amount to patient toleranace). aspirin, enteric coated (ASPIRIN, ENTERIC COATED) 81 mg EC tablet Take 1 tablet by mouth twice daily for 28 days. No current facility-administered medications for this visit. Allergies: Seroquel [Quetiapine Fumarate] and Victoza [Liraglutide] Viet Johnson MD documented in this encounterTr[facility]12-01-2022 History of Present illness Narrative* Curt Bardales, PT - 01/15/2022 8:25 AM EST Episode Visit Count: 16 Therapist That Will Accept/Oversee The Plan Of Care: Curt Bardales Start of Care Date: 11/21/21 Onset Date: 11/22/19 Plan of Care Certification Date: 12/26/21 Next Certification Due Date: 02/16/22 Patient Identified by Name and Date of : Yes REHABILITATION AND SPORTS THERAPY PHYSICAL THERAPY TREATMENT NOTE ASSESSMENT: Melanie Bird tolerated the session with no issues. She demonstrated difficulty with Lknee flexion ROM. The patient will continue to benefit from ongoing skilled physical therapy to progress toward set goals. PLAN FOR NEXT VISIT: Continue progressing strengthening ROM. Knee flexion stretching SUBJECTIVE: Patient Reason for Visit: Pt states she is increasing her walking distance. Less sore after her walks as well. Pain: Pain Pain Level: 0 Pain Location: Knee - Left Post Treatment Pain Post Treatment Pain Location: Knee - Left OBJECTIVE MEASURES WITH LEVEL OF FUNCTION: LE AROM L Knee Extension: 0 Degrees L Knee Flexion: 87 Degrees TREATMENT: Therapeutic Exercise: 2: SciFit 5 min (discussed HEP) 3: standing hip abd kicks OTB 2 x 10 4: Sidestepping OTB 10 feet x [address] 5: Seated LAQ 5# 3 x 15 6: 8 F step-up x 10 7: 10 F step-up x 10 8: Seated marching 5# 3 x 15 reps 9: Supine heel slides x 10 holing 5 sec with strap assist Skilled Intervention: Patient was educated in proper exercise technique and purpose for exercises. Correct performance of therapeutic exercises was facilitated with verbal cuing. Billing Therapeutic Exercise Treatment Minutes: 42 Total Treatment Time Minutes (timed/untimed): 42 Curt Bardales PT documented in this encounterTr[facility]11-28-2022 History of Present illness Narrative* Curt Bardales PT - 01/12/2022 12:08 PM EST Episode Visit Count: 15 Therapist That Will Accept/Oversee The Plan Of Care: Curt Bardales Start of Care Date: 11/21/21 Onset Date: 11/22/19 Plan of Care Certification Date: 12/26/21 Next Certification Due Date: 02/16/22 Patient Identified by Name and Date of : Yes REHABILITATION AND SPORTS THERAPY PHYSICAL THERAPY PROGRESS REPORT PLAN OF CARE UPDATE: Assessment: Melanie Bird demonstrates difficulty with L knee ROM, overall strength, and pain and improvements in overall L knee gait, ROM and strength. She hasprogressed toward most goals. Patient continues to present with impairments in overall function, range of motion, and strength that interfere with walking;standing;rising from a chair . Current prognosis is Excellent due to: current objective clinical presentation;good overall health status . She will benefit from continued skilled therapy services to meet the updated goals for this plan of care as noted below. Goals for Episode of Care: created on 11/21/21 through 02/13/22 Goals updated 01/12/2022 Pt will demo a score of 10 reps during the 30 sec STS test in 8 weeks [place] in home exercise program.- Met so far Patient will demonstrate increase in LE strength to 4+/5 during manual muscle testing in order to improve function for walking, transfers, and carrying objects.- Progressing, will continue Increase ROM of the L knee to 0-120 degrees of ext/flexion for decreased pain and improved function - Progressing, will continue Normal gait. - Progressing, will continue Patient Goals: Improve function and drive again! Parkinson disease (HCC) Diabetes mellitus type 2, uncontrolled IBS (irritable bowel syndrome) Depression ARIANA (obstructive sleep apnea) 03/06/2013 Obesity 04/25/2013 History of colon polyps History of gallstones High cholesterol Admission Dx: Chronic pain of left knee, Primary osteoarthritis of left kneeAdmission Dx: Chronic pain of left knee, Primary osteoarthritis of left knee Patient Goals: Improve function and drive again! Planned Interventions, Frequency, and Duration: 1x/week (one week will have 2 visits for a total of5 visits in the next 4 weeks), 4 weeks Total Number of Visits Planned: 5 Patient to be seen for Therapeutic exercise (10509);Neuromuscular re-education (27948);Manual therapy (92268);Therapeutic activities (96728);Self-alf management (59314);Patient/Family/CaregiverEducation SUBJECTIVE: Patient Reason for Visit: Pt states that her strength is better but needs work. ROM is limited. Still having some pain but this is better. Patient Goals: Improve function and drive again! Functional Limitations: walking;standing;rising from a chair Prior Level of Function: Independent without limitations Intake Information: Prescription present Previous Treatment: Physical Therapy ;Pain meds Pain: Pain Pain Location: Knee - Left Post Treatment Pain Post Treatment Pain Location: Knee - Left PROMIS Scales Higher is Better 03/09/2019 04/15/2020 08/17/2020 GH Physical - Score 42.3 47.7 47.7 (Good) GH Physical - Percentile 22 % 41 % 41 % GH Mental - Score 43.5 41.1 45.8 (Good) GH Mental - Percentile 26 % 19 % 34 % T-scores: mean of general population = 50. 5 points is clinically meaningfully difference Percentiles provide an indication of how the patient's score ranks in relation to the general population. Higher percentile rankings indicate better function/quality of life. 50th percentile is the average of the general population and indicates half of respondents had a worse score. T-scores: mean of general population = 50. 5 points is clinically meaningfully difference Percentiles provide an indication of how the patient's score ranks in relation to the general population. Higher percentile rankings indicate better function/quality of life. 50th percentile is the average of the general population and indicates half of respondents had a worse score. OBJECTIVE MEASURES WITH LEVEL OF FUNCTION: LE AROM L Knee Extension: 0 Degrees L Knee Flexion: 90 Degrees LE Strength L Hip Flexion (L2): 4/5 L Hip External Rotation: 4-/5 L Knee Extension (L3): 4+/5 L Knee Flexion: 4+/5 L Ankle Dorsiflexion (L4): 4+/5 Gait Gait: Independent Gait Distance (feet): 50 Gait Device: None Gait Observation: Slight lateral shifting of trunk bilat Functional Performance Test Results 30 Second Chair Stand Test: 9 reps TREATMENT: Therapeutic Exercise: 1: All objective measures taken this session 2: SciFit 5 min (working on knee flexion and subjective taken) 3: Supine SLR x 10 4: Supine SLR 2# on ankle 2 x 10 reps 5: Supine SAQ 4# on bolster 3 x 12 reps Skilled Intervention: Patient was educated in proper exercise technique and purpose for exercises. Provided written instruction for home exercise program to facilitate proper performance and compliance. Correct performance of therapeutic exercises was facilitated with verbal cuing. Billing Therapeutic Exercise Treatment Minutes: 42 Total Treatment Time Minutes (timed/untimed): 42 Curt Bardales PT documented in this encounterTr[facility]11-23-2022 History of Present illness Narrative* Lupe Malik, PT - 01/07/2022 3:40 PM EST Episode Visit Count: 14 Therapist That Will Accept/Oversee The Plan Of Care: Curt Bardales Start of Care Date: 11/21/21 Onset Date: 11/22/19 Plan of Care Certification Date: 11/21/21 Next Certification Due Date: 12/26/21 Patient Identified by Name and Date of : Yes REHABILITATION AND SPORTS THERAPY PHYSICAL THERAPY TREATMENT NOTE ASSESSMENT: Melanie Bird tolerated the session with fatigue and expected muscle soreness. She demonstrated improvements in standing endurance wit hexercises. The patient will continue to benefit from ongoing skilled physical therapy to progress toward set goals. PLAN FOR NEXT VISIT: Continue to progress L knee ROM and strengthening. SUBJECTIVE: Patient Reason for Visit: Pt states her knee feels stiff today. Pt reports completing exercises at home this morning. Pain: Pain Pain Level: 0 Pain Location: Knee - Left Post Treatment Pain Post Treatment Pain Location: Knee - Left Post Treatment Symptoms: fatigued OBJECTIVE MEASURES WITH LEVEL OF FUNCTION: Pt challenged with step downs. TREATMENT: Therapeutic Exercise: 1: Seated SciFit x 5 min (Subjective taken working on knee flexion ROM) 3: 9 Forward step ups 2x8 LLE 4: Step downs on 3 inch step 2x5 5: Standing hip abduction 2x10 B 6: Standing hip extension 2x10 B 7: Standing HS curls 2x10 8: Standing marches on LLE for R knee flexion ROM 2x10 9: LAQ 3x10 LLE 10: Seated marches 4# 2x10 11: Seated HS curls with GTB 2x10 L Skilled Intervention: Patient was educated in proper exercise technique and purpose for exercises. Skilled judgment was provided in selection of appropriate interventions. Correct performance of therapeutic exercises was facilitated with verbal and visual cuing. Billing Therapeutic Exercise Treatment Minutes: 39 Total Treatment Time Minutes (timed/untimed): 39 ARTHRU Trotter, PT documented in this encounterTr[facility]11-21-2022 History of Present illness Narrative* Curt Bardales, PT - 01/05/2022 1:22 PM EST Episode Visit Count: 13 Therapist That Will Accept/Oversee The Plan Of Care: Curt Bardales Start of Care Date: 11/21/21 Onset Date: 11/22/19 Plan of Care Certification Date: 11/21/21 Next Certification Due Date: 12/26/21 Patient Identified by Name and Date of : Yes REHABILITATION AND SPORTS THERAPY PHYSICAL THERAPY TREATMENT NOTE ASSESSMENT: Melanie Bird tolerated the session with decreased symptoms. She demonstrated difficulty with L knee flexion. The patient will continue to benefit from ongoing skilled physical therapy to progress toward set goals. PLAN FOR NEXT VISIT: Continue to progress L knee ROM and strengthening. SUBJECTIVE: Patient Reason for Visit: Pt states he knee is stiff this morning. Pain: Pain Pain Level: 0 Pain Location: Knee - Left Post Treatment Pain Post Treatment Pain Location: Knee - Left Post Treatment Symptoms: felt looser a tend of session OBJECTIVE MEASURES WITH LEVEL OF FUNCTION: LE AROM L Knee Flexion: 90 Degrees TREATMENT: Therapeutic Exercise: 1: Seated SciFit x 5 min (Subjective taken working on knee flexion ROM) 2: Knee flexion on step 3x30 seconds 3: 9 Forward step ups 2x8 LLE 4: Supine heel slides 2 x 10 with 5 second holds, then another slight pull 5: Foot taps on 9 inch step to facilitate knee flexion without hip compensation. 6: Seated knee scoot at edge of mat table x5 7: Standing HS curls x10 8: Standing marches on LLE for R knee flexion ROM Skilled Intervention: Patient was educated in proper exercise technique and purpose for exercises. Skilled judgment was provided in selection of appropriate interventions. Correct performance of therapeutic exercises was facilitated with verbal and visual cuing. Billing Therapeutic Exercise Treatment Minutes: 40 Total Treatment Time Minutes (timed/untimed): 40 Dominique Colindres, CERTIFIED NURSING ASSISTANT Curt Bardales PT documented in [facility]Tr[facility]17-[facility]22 History of Present illness Narrative* Curt Bardales PT - 01/01/2022 11:28 AM EST Episode Visit Count: 12 Therapist That Will Accept/Oversee The Plan Of Care: Curt Bardales Start of Care Date: 11/21/21 Onset Date: 11/22/19 Plan of Care Certification Date: 11/21/21 Next Certification Due Date: 12/26/21 Patient Identified by Name and Date of : Yes REHABILITATION AND SPORTS THERAPY PHYSICAL THERAPY TREATMENT NOTE ASSESSMENT: Melanie Bird tolerated the session with expected muscle soreness. She demonstrated difficulty with continued restriction in L knee flexion. The patient will continue to benefit from ongoing skilled physical therapy to progress toward set goals. PLAN FOR NEXT VISIT: Squats, trial 8 step-ups SUBJECTIVE: Patient Reason for Visit: Pt states the knee has been bothersome after walking. When she sits down after walking she will get increased pain at the L knee. Pain: Pain Pain Level: 6 Pain Location: Knee - Left Post Treatment Pain Post Treatment Pain Location: Knee - Left OBJECTIVE MEASURES WITH LEVEL OF FUNCTION: LE AROM L Knee Flexion: 91 Degrees TREATMENT: Therapeutic Exercise: 1: Seated SciFit x 5 min (Subjective taken working on knee flexion ROM) 2: Knee flexion on step x 10 holding 10 sec each 3: 6 F step-up x 12 reps (leading with LLE) 4: Supine heel slides 2 x 10 5: SLR x 10 6: SLR 1# 2 x 10 7: STS x 10 reps Skilled Intervention: Patient was educated in proper exercise technique and purpose for exercises. Correct performance of therapeutic exercises was facilitated with verbal and visual cuing. Billing Therapeutic Exercise Treatment Minutes: 40 Total Treatment Time Minutes (timed/untimed): 40 Curt Bardales PT documented in this encounterTr[facility]11-14-2022 History of Present illness Narrative* Curt Bardales PT - 12/29/2021 2:00 PM EST Episode Visit Count: 11 Therapist That Will Accept/Oversee The Plan Of Care: Curt Bardales Start of Care Date: 11/21/21 Onset Date: 11/22/19 Plan of Care Certification Date: 11/21/21 Next Certification Due Date: 12/26/21 Patient Identified by Name and Date of : Yes REHABILITATION AND SPORTS THERAPY PHYSICAL THERAPY TREATMENT NOTE ASSESSMENT: Melanie Bird tolerated the session with no issues. She demonstrated difficulty with Lknee flexion ROM. The patient will continue to benefit from ongoing skilled physical therapy to progress toward set goals. PLAN FOR NEXT VISIT: Progress knee flexion as tolerated. Assess knee flexion ROM. SUBJECTIVE: Patient Reason for Visit: Pt states that she has been working really hard to bend the knee over the weekend. did a lot of walking. Pain: Pain Pain Location: Knee - Left Post Treatment Pain Post Treatment Pain Location: Knee - Left OBJECTIVE MEASURES WITH LEVEL OF FUNCTION: LE AROM L Knee Flexion: 91 Degrees TREATMENT: Therapeutic Exercise: 1: Seated SciFit x 5 min (working on bending the L knee) 2: Heel slides 2 x 10 3: Quad set x 10 reps 4: Knee extension stretch x 30 seconds 5: Supine SLR 2 x 10 reps 6: LAQ 4# 3 x 10 reps 7: Seated marches 4# 2 x 8 8: 6 step up 2 x 10 9: L knee flexion stretch on step x 10 reps holding 5 sec 10: B heel raises x 15 11: Side-stepping 10 feet x 4 Skilled Intervention: Patient was educated in proper exercise technique and purpose for exercises. Correct performance of therapeutic exercises was facilitated with verbal and visual cuing. Billing Therapeutic Exercise Treatment Minutes: 45 Total Treatment Time Minutes (timed/untimed): 45 Curt Bardales PT documented in this encounterTrinity [facility]11-14-2022 History of Present illness Narrative* Donis Harris, [facility] - 12/29/2021 11:30 AM EST Primary Care Pharmacy Visit CC (Reason for Consult): Diabetes Goal: A1c < 7% Last Collaborating Physician/[employer] ATTENDANT Visit: 12/11/21 Melanie Bird is a 66 year old female presenting for follow up visit by telephone. Patient consents to pharmacy collaborative practice agreement. At last visit with pharmacy on 12/01 the following changes were made: Lantus dose was adjusted to 16 units daily. INTERIM HISTORY: Patient reports feeling well overall Continues to follow up with physical therapy and becoming stronger post TKA Weight decreasing s/p gastric bypass Reports BG readings stable on current regimen No low BG readings Since she has been on 2 tabs of metformin for a while no GI upset Was not able to tolerate 3 tabs of metformin 500 mg tabs as it caused diarrhea Current DM Medications: Metformin 500 mg - 2 tabs daily Dulaglutide (Trulicity) 4.5 mg weekly on Sundays Insulin glargine U300 (Toujeo) 16 units daily GLYCEMIC CONTROL: Summary of CGM Findings: (last 14 days) 1- CGM recording is adequate for interpretation. 2- Average glucose is 149 mg/dL. 12 am - 6am - 111 mg/dL 6 am -12pm - 144 mg/dL 12 pm - 6 pm - 184 mg/dL 6 pm - 12 am -159 mg/dL 3- Total frequency of hypoglycemia: none 4- Nocturnal hypoglycemia was not noted. 5- Hyperglycemic episodes: 21 % 6- Time in target range (70-180 mg/dL): 79 % ROS: Patient denies CP, SOB, HATCH, blurred vision, dizziness or lightheadedness Patient denies nausea, vomiting, diarrhea, abdominal pain Patient denies symptoms of hypoglycemia (sweating, anxiety, palpitations, hunger, and tremor) Patient denies symptoms of hyperglycemia (polyuria, polydipsia, polyphagia) Patient denies potential medication adverse effects MEDICATIONS: Pill bottles are not present. Adherence: reports missed doses. [place] [facility], [place] Rx coverage: Medicare, Medicaid Affordability: none Diabetes supplies: One Touch ACTIVE PROBLEM LIST Diabetes Mellitus Type 2 (Hcc) Ptsd (Post-Traumatic Stress Disorder) Rls (Restless Legs Syndrome) Low Oxygen Saturation Tardive Dyskinesia Hyperlipidemia With Target Ldl Less Than 70 Ariana (Obstructive Sleep Apnea) Vitamin D Deficiency Ibs (Irritable Bowel Syndrome) Respiratory Abnormality, Unspecified Hypertonicity of Bladder Cataracts, Bilateral Pedal Edema Benign Paroxysmal Positional Vertigo Plantar Fasciitis, Right Congenital Pes Cavus Primary Osteoarthritis of Left Knee Chronic Pain of Left Knee Obesity, Class III, BMI >= 40 (morbid obesity) ([facility]) E66.01 Incontinence of Feces Wound Disruption Vertigo History of Implantation of Artificial Sphincter Grief Reaction Wound of Gluteal Cleft Parkinson's Disease ([facility]) S/P Gastric Sleeve Procedure Gerd (Gastroesophageal Reflux Disease) Swelling PAST MEDICAL HISTORY Diagnosis Date Depression Diabetes mellitus type 2, uncontrolled High cholesterol History of colon polyps History of gallstones IBS (irritable bowel syndrome) Obesity 04/25/2013 BMI 48.43 ARIANA (obstructive sleep apnea) 03/06/2013 Parkinson disease ([facility]) ALLERGIES Allergen Reactions Seroquel [Quetiapin* Mental Status Change Victoza [Liraglutid* GI Upset Current Outpatient Medications Medication Sig HYDROcodone-acetaminophen (NORCO) 5-325 mg per tablet Take 1 tablet by mouth every 8 hours as needed for pain for up to 7 days. zolpidem (AMBIEN) 5 mg tablet Take 1 tablet by mouth at bedtime as needed for sedation for up to 90days. TAKE 1 TABLET BY MOUTH AT BEDTIME NEEDED FOR SEDATION Surgical Lubricant Jelly gel For MRI Female Pelvis, MRI department to provide. Administer intra-vaginal Surgilube immediately prior the MRI procedure (total amount to patient toleranace). insulin glargine U-300 conc (TOUJEO SOLOSTAR U-300 INSULIN) 300 unit/mL (1.5 mL) Inject 16 Units subcutaneously every morning. sertraline (ZOLOFT) 50 mg tablet Take 1 tablet by mouth once daily. OXYGEN, HOME THERAPY, 2 L/min by Mask route daily at bedtime. CPAP 2L at night aspirin, enteric coated (ASPIRIN, ENTERIC COATED) 81 mg EC tablet Take 1 tablet by mouth twice daily for 28 days. fexofenadine (SEFERINO) 180 mg tablet TAKE 1 TABLET BY MOUTH DAILY metFORMIN ER (GLUCOPHAGE XR) 500 mg 24 hr tablet TAKE 2 TABLETS DAILY WITH MEALS cloNIDine HCl (CATAPRES) 0.1 mg tablet Take 1 tablet by mouth once daily. gabapentin (NEURONTIN) 600 mg tablet Take 3 tablets by mouth daily at bedtime for 180 days. TRULICITY 4.5 mg/0.5 mL pen injector INJECT 4.5MG SUBCUTANEOUSLY ONCE A WEEK VITAMIN C 500 mg tablet TAKE 1 TABLET BY MOUTH DAILY gabapentin (NEURONTIN) 300 mg capsule TAKE 3 CAPSULES BY MOUTH DAILY WITH LUNCH acyclovir (ZOVIRAX) 400 mg tablet Take 1 tablet by mouth twice daily. rOPINIRole (REQUIP) 0.5 mg tablet TAKE 1 TABLET BY MOUTH TWICE A DAY (NOON AND BEDTIME) Cholecalciferol, Vitamin D3, (VITAMIN D-3) 50 mcg (2,000 unit) cap Take 1 capsule by mouth once daily. omeprazole (PRILOSEC) 20 mg capsule Take 20 mg by mouth once daily. flash glucose sensor (FREESTYLE IZABELLA 2 SENSOR) kit Use to monitor blood sugars 4 times daily magnesium oxide (MAG-OX) 400 mg (241.3 mg magnesium) tablet Take 2 tablets by mouth once daily. atorvastatin (LIPITOR) 20 mg tablet Take 1 tablet by mouth once daily. AUSTEDO 6 mg tab Take 6 mg by mouth twice daily. Lancets lancets Test Four times a day. Insulin Dep? Yes E11.9 DM 2 blood sugar diagnostic (BLOOD GLUCOSE TEST) test strip Test Four times a day. Insulin Dep? Yes E11.9 DM 2 calcium carbonate 600 mg-cholecalciferol 200 units (CALCARB 600 WITH VITAMIN D) 600 mg(1,500mg) -200 unit tab Take 1 tablet by mouth twice daily. wheat dextrin (BENEFIBER SUGAR FREE, DEXTRIN,) 3 gram/4 gram powd 1/2 tablespoon per day x2 weeks. Then increase by 1/2 tablespoon every 2 weeks until you are taking 3 tablespoons per day in divided doses. polyethylene glycol 3350 (MIRALAX, GLYCOLAX) 17 gram/dose powder Take 17 g by mouth twice daily. Drink a mix of 1 scoop in 8oz of water/beverage once daily as needed for constipation. docusate sodium (COLACE) 100 mg capsule Take 1 capsule by mouth twice daily as needed for Constipation. COMPOUNDED PRESCRIPTION PORTABLE OXYGEN TANKS FOR USE IN BACK PACK USES 3 Lpm WHEN ON PORTABLE TANKto use with exertion DX R79.81 COMPOUNDED PRESCRIPTION EMERGENCY BACKUP OXYGEN TANK FOR WHEN PATIENT LOSES ELECTRICITY DX R79.81 CPAP Initiate AutoPAP @ 10/20 cm of water with EPR of 3 , humidification. Mask (per patient preference) optional chin strap (if indicated) , filters, tubing, humidifier and lifetime supplies. Dx. ARIANA 327.23 COMPOUNDED PRESCRIPTION Oxygen supplies dx: R79.81 R06.02 COMPOUNDED PRESCRIPTION CPAP supplies Dx: G47.33 COMPOUNDED PRESCRIPTION Home Oxygen, 2 litres with cpap machine blood sugar diagnostic ([place] CinemaTOUCH ULTRA TEST) test strip Test blood sugar(s) 4 times daily. Dx: Type2 DM - Uncontrolled E11.65 Insulin: Yes meclizine (ANTIVERT) 25 mg tab Take 1 tablet by mouth three times daily as needed (dizziness). insulin needles, DISPOSABLE, (ULTICARE PEN NEEDLE) 31 gauge x 5/16 ndle UAD to inject insulins 5 times daily. Lancets (ACCU-CHEK FASTCLIX) lancets With [employer] fastclix lancing device. Check sugars 4x/day Dx:e11.65 Insulin: Yes No current facility-administered medications for this visit. EXAM: Last 3 Encounter BP Readings: Date: BP: 12/15/2021 104/64 12/11/2021 100/60 11/11/2021 116/72 Wt: 99.3 kg (219 lb) BMI: 37.59 kg/(m^2) LABS: Lab Results Component Value Date HBA1C 6.7 12/11/2021 HBA1C 7.0 07/30/2021 HBA1C 7.0 11/15/2020 HBA1C 7.2 09/02/2020 HBA1C 8.2 06/03/2020 CMP: Glucose 105 12/01/2021 BUN 10 12/01/2021 Creatinine, Whole Blood (iSTAT) 0.61 12/01/2021 Sodium 141 12/01/2021 Potassium 4.2 12/01/2021 Chloride 100 12/01/2021 CO2 30 12/01/2021 Protein, Total 6.0 12/01/2021 Albumin 4.2 12/01/2021 Calcium 9.7 12/01/2021 Alkaline Phosphatase 74 12/01/2021 Bilirubin, Total 0.6 12/01/2021 AST 15 12/01/2021 ALT 9 12/01/2021 Serum creatinine: 0.61 mg/dL 12/01/21 1012 Estimated creatinine clearance: 106.6 mL/min No results found for: GFR eGFR- (no units) Date Value 11/15/2020 >60 Lab Results Component Value Date CHOL 121 12/01/2021 CHOL 138 11/15/2020 LDL 52 12/01/2021 LDL 72 11/15/2020 HDL 46 12/01/2021 HDL 45 11/15/2020 TG 114 12/01/2021 TG 103 11/15/2020 The ASCVD Risk score (Vamsi GANDHI, et al., 2019) failed to calculate for the following reasons: The valid total cholesterol range is 130 to 320 mg/dL Albumin/Creat Ratio (mg/g) Date Value 07/30/2021 <10 PHARMACOTHERAPY ASSESSMENT/PLAN: 1. Uncontrolled type 2 diabetes mellitus with hyperglycemia (HCC) - ICD9: 250.02, ICD10: E11.65 A1c goal < 7%; goal (last A1c 6.7%); SMBG improved on current regimen; denies s/sx hypoglycemia;denies s/sx hyperglycemia. Patient is tolerating current regimen. Today, will continue current regimen. Of note, patient not able to tolerate higher metformin dose due to GI upset. Continue Toujeo 16 units once daily as prescribed Continue Trulicity 4.5 mg weekly Continue metformin 500 mg 2 times daily before meal Follow up: Patient is scheduled to see PCP team on 03/13/22. Patient to follow up with pharmD on 02/04/22. Patient verbalized understanding of instructions. Donis Harris, AbbyD, BCACP Primary Care Clinical Pharmacist The majority of the pharmacy visit (> 50%) was spent counseling and/or coordinating care for thepatient. [Telephonic] time was 20 minutes. documented in this encounterTr[facility]11-10-2022 History of Present illness Narrative* Curt Bardales, PT - 12/25/2021 3:44 PM EST Episode Visit Count: 10 Therapist That Will Accept/Oversee The Plan Of Care: Curt Bardales Start of Care Date: 11/21/21 Onset Date: 11/22/19 Plan of Care Certification Date: 11/21/21 Next Certification Due Date: 12/26/21 Patient Identified by Name and Date of : Yes REHABILITATION AND SPORTS THERAPY PHYSICAL THERAPY TREATMENT NOTE ASSESSMENT: Melanie Bird tolerated the session with no issues. She demonstrated difficulty with decreased knee flexion today as the pain is more sore. The patient will continue to benefit from ongoing skilled physical therapy to progress toward set goals. PLAN FOR NEXT VISIT: Progress ROM as tolerated SUBJECTIVE: Patient Reason for Visit: Pt states the knee is pretty sore. Pt sometimes feels that a manipulation of the knee may be helpful but is not sure. Pain: Pain Pain Location: Knee - Left Post Treatment Pain Post Treatment Pain Location: Knee - Left OBJECTIVE MEASURES WITH LEVEL OF FUNCTION: LE AROM L Knee Flexion: 88 Degrees (strap assist it's more sore today. 92 degrees by the end of the session) TREATMENT: Therapeutic Exercise: 1: Seated SciFit x 5 min (Working on bending) 2: Heel slides 2 x 10 3: Heel slides with overpressure holding 5 sec each x 5 reps 4: L Knee ext stretch 2# over quad 2 x 30 seconds 5: Seated LAQ 2# x 10 reps 6: Seated LAQ 3# 2 x 10 7: Tilt board x 30 F/B Skilled Intervention: Patient was educated in proper exercise technique and purpose for exercises. Correct performance of therapeutic exercises was facilitated with verbal and visual cuing. Manual Therapy: 1: Supine Hs stretch 2 x 30 sec 2: L knee flexion hangin bushra PT forearm x 60 seconds Skilled Intervention: Manual skills to improve joint mobility, ROM, and decrease pain. Utilized anatomy knowledge of the therapist, and assessment of patient's response to intervention. Billing Therapeutic Exercise Treatment Minutes: 39 Manual TherapyTreatment Minutes: 2 Total Treatment Time Minutes (timed/untimed): 41 Curt Bardales PT documented in this encounterTrinity [facility]11-07-2022 Miscellaneous Notes* Telephone Encounter - Marycruz Sweeney Ma - 12/22/2021 11:39 AM EST Message below given to patient and she verbalized understanding. * Telephone Encounter - Kelli Davis PA-C - 12/22/2021 10:08 AM EST Spoke with Dr. Johnson, she is making progress with physical therapy, he suggested she continue withPT and follow-up with him in January as planned. * Telephone Encounter - Kelli Davis PA-C - 12/22/2021 10:02 AM EST Sorry I was way off on that one. We can check with Dr. Johnson. * Telephone Encounter - Marycruz Sweeney Ma - 12/22/2021 9:39 AM EST From the way the patient talked it sounded like she was going to have a manipulation under anesthesia of the left TKA. * Telephone Encounter - Kelli Davis PA-C - 12/22/2021 9:25 AM EST We generally wait at least 3 months between replacements, she can get schedule for the other knee, if appropriate, during her next office visit with Dr. Johnson on 01/19/22. * Telephone Encounter - Marycruz Sweeney Ma - 12/22/2021 9:07 AM EST Patient called in asking when her next surgery is going to be scheduled on the left knee? States itwas discussed at the last office visit on 12/08/2021. documented in this encounterTrinity [facility]11-07-2022 Miscellaneous Notes* Telephone Encounter - Marycruz Sweeney Ma - 12/22/2021 9:04 AM EST Patient has been identified by name and date of : Yes Requested Prescriptions Pending Prescriptions Disp Refills HYDROcodone-acetaminophen (NORCO) 5-325 mg per tablet 28 tablet 0 Sig: Take 1 tablet by mouth every 6 hours as needed for pain for up to 7 days. RX INSTRUCTIONS: Patient aware RX will be sent to pharmacy. No need to notify patient. Confirmed [facility]. Marycruz Sweeney Ma documented in this encounterTrinity [facility]11-03-2022 History of Present illness Narrative* Curt Bardales, PT - 12/18/2021 11:38 AM EDT Episode Visit Count: 8 Therapist That Will Accept/Oversee The Plan Of Care: Curt Bardales Start of Care Date: 11/21/21 Onset Date: 11/22/19 Plan of Care Certification Date: 11/21/21 Next Certification Due Date: 12/26/21 Patient Identified by Name and Date of : Yes REHABILITATION AND SPORTS THERAPY PHYSICAL THERAPY TREATMENT NOTE ASSESSMENT: Melanie Bird tolerated the session with no issues. She demonstrated some minor improvements in knee flexion ROM. The patient will continue to benefit from ongoing skilled physical therapy to progress toward set goals. PLAN FOR NEXT VISIT: Continue working on L knee AROM SUBJECTIVE: Patient Reason for Visit: Pt states that she is really sore. The exercises make it pretty sore. Pain: Pain Pain Level: 6 Pain Location: Knee - Left Post Treatment Pain Post Treatment Pain Location: Knee - Left OBJECTIVE MEASURES WITH LEVEL OF FUNCTION: LE AROM L Knee Flexion: 93 Degrees (94 with strap assist) TREATMENT: Therapeutic Exercise: 1: SciFit x 4 min (Discussed subjective and worked on knee flexion ROM) 2: SAQ 2 x 10 3: SAQ 2# 2 x 10 reps 4: SLR strap assist x 10 5: Heel slides 2 x 10 holding 3 sec 6: STS 2 x 10 reps 7: Knee flexion on stairs x 12 reps holding 5 sec each Skilled Intervention: Patient was educated in proper exercise technique and purpose for exercises. Correct performance of therapeutic exercises was facilitated with verbal and visual cuing. Billing Therapeutic Exercise Treatment Minutes: 39 Total Treatment Time Minutes (timed/untimed): 39 Curt Bardales PT documented in this encounterTrinity [facility]10-31-2022 History of Present illness Narrative* Chyna Delacruz MD - 12/15/2021 2:03 PM EDT Melanie Bird is a 66 year old female who presents for follow up ovarian cyst. This was an incidental finding from a CT scan done for her knee which ultimately showed a cystic structure in the pelvis. This prompted an ultrasound followed by a CT of the abdomen pelvis. Looking back the cyst has been stable since at least 2018 slight increase in size but still simple. Patient currently denies any abdominal pain, nausea, vomiting. She states she has diarrhea but that is from her IBS. Patient reports had bariatric surgery in May 2021 and most recently knee replacement. Patient is not interested in surgical intervention at this time but may consider in the future. OB History T0 L0 SAB0 IAB0 Ectopic0 Multiple0 Live Births0 Accounting File Clerk History LMP: 04/10/2012 (Approximate), Postmenopausal Age at Menarche: Age at First : Age at Menopause: Accounting File Clerk History Comments: Sexual Activity: Not Asked; No partner data on record Contraception: No contraception data on record PAST MEDICAL HISTORY Diagnosis Date Depression Diabetes mellitus type 2, uncontrolled High cholesterol History of colon polyps History of gallstones IBS (irritable bowel syndrome) Obesity 04/25/2013 BMI 48.43 ARIANA (obstructive sleep apnea) 03/06/2013 Parkinson disease (HCC) PAST SURGICAL HISTORY Procedure Laterality Date ANAL SPHINCTEROPLASTY SPHINCTEROPLASTY ANAL W/ IMPLANT ARTIFICIAL SPHINCTER ADULT BARIATRIC SURGERY HX 05/28/2021 CATARACT EXTRACTION HX Bilateral 08/2012 COLONOSCOPY GEN ANES 04/2019 INCISE FINGER TENDON SHEATH 12/20/2012 Left 3rd trigger finger release PAST SURGICAL HISTORY OF 06/2012 Interstim PAST SURGICAL HISTORY OF Right trigger thumb REMOVAL GALLBLADDER 2001 TOTAL KNEE REPLACEMENT Left 10/29/2021 Left robotic total knee replacement FAMILY HISTORY Problem Relation Age of Onset Diabetes Father Heart Father Diabetes Mother Heart Mother Colon Cancer Sister Social History Tobacco Use Smoking status: Former Packs/day: 0.10 Years: 3.00 Pack years: 0.30 Types: Cigarettes Quit date: 04/25/1988 Years since quittin.6 Smokeless tobacco: Never Tobacco comments: No smoking in childhood home. Roomate of last 10 years smoked while living with patient. Vaping Use Vaping Use: Never used Substance Use Topics Alcohol use: No Drug use: No Current Outpatient Medications Medication Sig HYDROcodone-acetaminophen (NORCO) 5-325 mg per tablet Take 1 tablet by mouth every 6 hours as needed for pain for up to 7 days. zolpidem (AMBIEN) 5 mg tablet Take 1 tablet by mouth at bedtime as needed for sedation for up to 90days. TAKE 1 TABLET BY MOUTH AT BEDTIME NEEDED FOR SEDATION Surgical Lubricant Jelly gel For MRI Female Pelvis, MRI department to provide. Administer intra-vaginal Surgilube immediately prior the MRI procedure (total amount to patient toleranace). insulin glargine U-300 conc (TOUJEO SOLOSTAR U-300 INSULIN) 300 unit/mL (1.5 mL) Inject 16 Units subcutaneously every morning. sertraline (ZOLOFT) 50 mg tablet Take 1 tablet by mouth once daily. OXYGEN, HOME THERAPY, 2 L/min by Mask route daily at bedtime. CPAP 2L at night aspirin, enteric coated (ASPIRIN, ENTERIC COATED) 81 mg EC tablet Take 1 tablet by mouth twice daily for 28 days. fexofenadine (SEFERINO) 180 mg tablet TAKE 1 TABLET BY MOUTH DAILY metFORMIN ER (GLUCOPHAGE XR) 500 mg 24 hr tablet TAKE 2 TABLETS DAILY WITH MEALS cloNIDine HCl (CATAPRES) 0.1 mg tablet Take 1 tablet by mouth once daily. gabapentin (NEURONTIN) 600 mg tablet Take 3 tablets by mouth daily at bedtime for 180 days. TRULICITY 4.5 mg/0.5 mL pen injector INJECT 4.5MG SUBCUTANEOUSLY ONCE A WEEK VITAMIN C 500 mg tablet TAKE 1 TABLET BY MOUTH DAILY gabapentin (NEURONTIN) 300 mg capsule TAKE 3 CAPSULES BY MOUTH DAILY WITH LUNCH acyclovir (ZOVIRAX) 400 mg tablet Take 1 tablet by mouth twice daily. rOPINIRole (REQUIP) 0.5 mg tablet TAKE 1 TABLET BY MOUTH TWICE A DAY (NOON AND BEDTIME) Cholecalciferol, Vitamin D3, (VITAMIN D-3) 50 mcg (2,000 unit) cap Take 1 capsule by mouth once daily. omeprazole (PRILOSEC) 20 mg capsule Take 20 mg by mouth once daily. flash glucose sensor (FREESTYLE IZABELLA 2 SENSOR) kit Use to monitor blood sugars 4 times daily magnesium oxide (MAG-OX) 400 mg (241.3 mg magnesium) tablet Take 2 tablets by mouth once daily. atorvastatin (LIPITOR) 20 mg tablet Take 1 tablet by mouth once daily. AUSTEDO 6 mg tab Take 6 mg by mouth twice daily. Lancets lancets Test Four times a day. Insulin Dep? Yes E11.9 DM 2 blood sugar diagnostic (BLOOD GLUCOSE TEST) test strip Test Four times a day. Insulin Dep? Yes E11.9 DM 2 calcium carbonate 600 mg-cholecalciferol 200 units (CALCARB 600 WITH VITAMIN D) 600 mg(1,500mg) -200 unit tab Take 1 tablet by mouth twice daily. wheat dextrin (BENEFIBER SUGAR FREE, DEXTRIN,) 3 gram/4 gram powd 1/2 tablespoon per day x2 weeks. Then increase by 1/2 tablespoon every 2 weeks until you are taking 3 tablespoons per day in divided doses. polyethylene glycol 3350 (MIRALAX, GLYCOLAX) 17 gram/dose powder Take 17 g by mouth twice daily. Drink a mix of 1 scoop in 8oz of water/beverage once daily as needed for constipation. docusate sodium (COLACE) 100 mg capsule Take 1 capsule by mouth twice daily as needed for Constipation. COMPOUNDED PRESCRIPTION PORTABLE OXYGEN TANKS FOR USE IN BACK PACK USES 3 Lpm WHEN ON PORTABLE TANKto use with exertion DX R79.81 COMPOUNDED PRESCRIPTION EMERGENCY BACKUP OXYGEN TANK FOR WHEN PATIENT LOSES ELECTRICITY DX R79.81 CPAP Initiate AutoPAP @ 10/20 cm of water with EPR of 3 , humidification. Mask (per patient preference) optional chin strap (if indicated) , filters, tubing, humidifier and lifetime supplies. Dx. ARIANA 327.23 COMPOUNDED PRESCRIPTION Oxygen supplies dx: R79.81 R06.02 COMPOUNDED PRESCRIPTION CPAP supplies Dx: G47.33 COMPOUNDED PRESCRIPTION Home Oxygen, 2 litres with cpap machine blood sugar diagnostic (ONETOUCH ULTRA TEST) test strip Test blood sugar(s) 4 times daily. Dx: Type2 DM - Uncontrolled E11.65 Insulin: Yes meclizine (ANTIVERT) 25 mg tab Take 1 tablet by mouth three times daily as needed (dizziness). insulin needles, DISPOSABLE, (ULTICARE PEN NEEDLE) 31 gauge x 5/16 ndle UAD to inject insulins 5 times daily. Lancets (ACCU-CHEK FASTCLIX) lancets With [employer] fastclix lancing device. Check sugars 4x/day Dx:e11.65 Insulin: Yes No current facility-administered medications for this visit. Allergies As of Date: 12/15/2021 Allergen Noted Reaction SEROQUEL [QUETIAPINE FUMARATE] 11/15/2012 Mental Status Change VICTOZA [LIRAGLUTIDE] 09/21/2013 GI Upset Fully Assessed 12/11/2021 REVIEW OF SYSTEMS Abdomen: no bloating , no pain Bladder: no dysuria .. Expanded ROS: GENERAL: Negative for fever Allergies and current medication updated:Yes EXAM: BP 104/64 Wt 219 lb (99.3kg) LMP 04/10/2012 GENERAL: pleasant, female in no apparent distress HEENT: Normocephalic, atraumatic, mucus membranes moist, and no lesions NECK: full range of motion DERMATOLOGY: without lesions ABDOMEN: soft, non tender, no rebound, no guarding NEURO: alert and oriented x3,exam grossly non-focal EXTREMITIES: normal ASSESSMENT AND PLAN: Encounter Diagnosis ICD-10-CM 1. Cyst of right ovary N83.201 PELVIC US WHI 2. Pt would like to get pelvic us in 6 months and will decide at that time if she desires future surgical intervention. Right now patient declines surgery. We discussed risk of ovarian torsion. We did discuss that her CA125 level is normal and based on simple appearing cyst on ultrasound low likelihood of malignancy but I did discuss that I cannot rule out a low malignant or borderline tumor without pathology. Patient verbalized understanding and wishes to proceed with expectant management at this time. We discussed the signs and symptoms of ovarian torsion including severe pain, nausea, vomiting, fevers and she will notify the office if she experiences any of these or will go to the nearest ER. Medical Decision Making: Problems: Moderate: New problem with uncertain prognosis Data: Unique test result(s) reviewed: 3+ Unique test(s) ordered: 1 Risk: Low: Low risk from testing/treatment Medical Decision Making Level: 4 - Moderate Chyna Durant MD documented in [facility]Tr[facility] History of Present illness Narrative* Curt Bardales, PT - 12/15/2021 8:33 AM EDT Episode Visit Count: 7 Therapist That Will Accept/Oversee The Plan Of Care: Curt Bardales Start of Care Date: 11/21/21 Onset Date: 11/22/19 Plan of Care Certification Date: 11/21/21 Next Certification Due Date: 12/26/21 Patient Identified by Name and Date of : Yes REHABILITATION AND SPORTS THERAPY PHYSICAL THERAPY TREATMENT NOTE ASSESSMENT: Melanie Bird tolerated the session with no issues. She demonstrated difficulty with active L knee flexion limited to 89 degrees. The patient will continue to benefit from ongoing skilled physical therapy to progress toward set goals. PLAN FOR NEXT VISIT: Re-assess knee ROM. knee flexion on steps SUBJECTIVE: Patient Reason for Visit: Pt states that her knee is more sore. Did a lot of walking over the weekend which made it sore. Patient Goals: Improve function and drive again! Pain: Pain Pain Level: 6 Pain Location: Knee - Left OBJECTIVE MEASURES WITH LEVEL OF FUNCTION: TREATMENT: Therapeutic Exercise: 1: SciFit x 5 min (Subjective taken and working on improving knee flexion) 2: Supine Heel slides strap assist 5 sec holds 2 x 10 reps 3: Supine SLR 2 x 10 reps 4: 4 step-ups 2 x 12 reps 5: Mini squats x 10 reps Skilled Intervention: Skilled judgment was provided in selection of appropriate interventions. Manual Therapy: 1: Supine knee flexion with overpressure holding 20 seconds x 2 Skilled Intervention: Manual skills to improve joint mobility, ROM, and decrease pain. Utilized anatomy knowledge of the therapist, and assessment of patient's response to intervention. Billing Therapeutic Exercise Treatment Minutes: 41 Manual TherapyTreatment Minutes: 2 Total Treatment Time Minutes (timed/untimed): 43 Curt Bardales PT documented in this encounterTr[facility]10-27-2022 History of Present illness Narrative* Modesta Daley MD - 12/11/2021 11:26 AM EDT Reason for Visit Patient presents with: Recheck: 4 month Melanie Bird is a 66 year old female who presents here today for Above Complaints.. Health Maintenance PAP TESTING HPV TESTING DIABETIC FOOT EXAM PNEUMOCOCCAL(2 - PCV) DEPRESSION ASSESSMENT COVID-19 VACCINE(5 - Booster for Moderna series) HPI Recently was found to have mass in the ovary. Likely benign but large, and is seeing Accounting File Clerk for it. Had gastric bypass surgery on May 29 2021. Lost 75 pounds, she is excited to have her knee replacement surgery which was done on oct 29. Her knee is a little better but a little sore. She hasPhysical Therapy twice a week. There is still a lot of swelling that needs to go down. Patient is a little better than before, she started walking with a walker, but now she is able to walk by herself she started walking slow and thinks about that she is doing. She got her driving back. We cannot see patient till January. Patient had her blood work done but has never got her hba1c results until recently. Seeing patricki about reduction of glucose medications. Patient notes her goal is to get away from Insulin and cpap. Insulin is down to 16 units, cont the trulicity and metformin 3 tablets. Some changes in her GI system to include a lot of rumbling, at night, she is eating small amounts of soft food, 2/3 bites Snack, or protein bar. She is gassy a lot at night time. Patient has not tried taking gassex. She takes calcium, vit b, on a regular basis. Patient takes the vitamins she needs to take daily. No problem-specific Assessment & Plan notes found for this encounter. PAST MEDICAL HISTORY Diagnosis Date Depression Diabetes mellitus type 2, uncontrolled High cholesterol History of colon polyps History of gallstones IBS (irritable bowel syndrome) Obesity 04/25/2013 BMI 48.43 ARIANA (obstructive sleep apnea) 03/06/2013 Parkinson disease (HCC) PAST SURGICAL HISTORY Procedure Laterality Date ANAL SPHINCTEROPLASTY SPHINCTEROPLASTY ANAL W/ IMPLANT ARTIFICIAL SPHINCTER ADULT BARIATRIC SURGERY HX 05/28/2021 CATARACT EXTRACTION HX Bilateral 08/2012 COLONOSCOPY GEN ANES 04/2019 INCISE FINGER TENDON SHEATH 12/20/2012 Left 3rd trigger finger release PAST SURGICAL HISTORY OF 06/2012 Interstim PAST SURGICAL HISTORY OF Right trigger thumb REMOVAL GALLBLADDER 2001 TOTAL KNEE REPLACEMENT Left 10/29/2021 Left robotic total knee replacement FAMILY HISTORY Problem Relation Age of Onset Diabetes Father Heart Father Diabetes Mother Heart Mother Colon Cancer Sister Social History Tobacco Use Smoking status: Former Packs/day: 0.10 Years: 3.00 Pack years: 0.30 Types: Cigarettes Quit date: 04/25/1988 Years since quittin.6 Smokeless tobacco: Never Tobacco comments: No smoking in childhood home. Roomate of last 10 years smoked while living with patient. Vaping Use Vaping Use: Never used Substance Use Topics Alcohol use: No Drug use: No Past medical history, appointments, medications, allergies reviewed. Pertinent Lab/Diagnostic Studies are reviewed and discussed today Current Outpatient Medications: HYDROcodone-acetaminophen (NORCO) 5-325 mg per tablet zolpidem (AMBIEN) 5 mg tablet Surgical Lubricant Jelly gel insulin glargine U-300 conc (TOUJEO SOLOSTAR U-300 INSULIN) 300 unit/mL (1.5 mL) sertraline (ZOLOFT) 50 mg tablet OXYGEN, HOME THERAPY, fexofenadine (SEFERINO) 180 mg tablet metFORMIN ER (GLUCOPHAGE XR) 500 mg 24 hr tablet cloNIDine HCl (CATAPRES) 0.1 mg tablet gabapentin (NEURONTIN) 600 mg tablet TRULICITY 4.5 mg/0.5 mL pen injector VITAMIN C 500 mg tablet gabapentin (NEURONTIN) 300 mg capsule furosemide (LASIX) 20 mg tablet acyclovir (ZOVIRAX) 400 mg tablet rOPINIRole (REQUIP) 0.5 mg tablet Cholecalciferol, Vitamin D3, (VITAMIN D-3) 50 mcg (2,000 unit) cap omeprazole (PRILOSEC) 20 mg capsule flash glucose sensor (FREESTYLE IZABELLA 2 SENSOR) kit magnesium oxide (MAG-OX) 400 mg (241.3 mg magnesium) tablet atorvastatin (LIPITOR) 20 mg tablet AUSTEDO 6 mg tab Lancets lancets blood sugar diagnostic (BLOOD GLUCOSE TEST) test strip calcium carbonate 600 mg-cholecalciferol 200 units (CALCARB 600 WITH VITAMIN D) 600 mg(1,500mg) -200 unit tab wheat dextrin (BENEFIBER SUGAR FREE, DEXTRIN,) 3 gram/4 gram powd polyethylene glycol 3350 (MIRALAX, GLYCOLAX) 17 gram/dose powder docusate sodium (COLACE) 100 mg capsule COMPOUNDED PRESCRIPTION COMPOUNDED PRESCRIPTION CPAP COMPOUNDED PRESCRIPTION COMPOUNDED PRESCRIPTION COMPOUNDED PRESCRIPTION blood sugar diagnostic (ONETOUCH ULTRA TEST) test strip meclizine (ANTIVERT) 25 mg tab insulin needles, DISPOSABLE, (ULTICARE PEN NEEDLE) 31 gauge x 5/16 ndle Lancets (ACCU-CHEK FASTCLIX) lancets aspirin, enteric coated (ASPIRIN, ENTERIC COATED) 81 mg EC tablet Review of Systems CONSTITUTIONAL: No fevers, chills night sweats, unintended weight loss CARDIOVASCULAR: No chest pain, dyspnea, palpitations, orthopnea, PND, ankle edema. PULM: No dyspnea, unexplained cough. GI: No dysphagia/odynophagia, problematic reflux, constipation, diarrhea, changes in stool habits, hematochezia, melena. : No new urinary complaints, including dysuria, gross hematuria or pyuria. NEURO: No new balance problems, peripheral weakness/paresthesias or numbness of concern. Physical Exam BP 100/60 Pulse 75 Temp 36.4 C (97.6 F) (Temporal) Resp 18 Wt 99.3 kg (219 lb) LMP 04/10/2012 (Approximate) SpO2 97% BMI 37.59 kg/m General appearance: Well appearing, alert, in no acute distress, well nourished. Skin: Skin color, texture, turgor normal, no suspicious rashes or lesions Head: Normocephalic, no masses, lesions, tenderness or abnormalities Eyes: Anicteric sclera. Pupils are equally round and reactive to light. Extraocular movements are intact. Lungs: Lungs clear to auscultation. No wheezing, rhonchi, rales Heart: RRR without murmur, gallop, or rubs. Extremities: No deformities, edema, skin discoloration, clubbing or cyanosis. Good capillary refill. ASSESSMENT/PLAN: 1. Diabetes mellitus type 2 (HCC) - ICD9: 250.00, ICD10: E11.9 (primary diagnosis) Cont the same medication as her hba1c is 6.7 - HEMOGLOBIN A1C (POC) 2. Hyperlipidemia with target LDL less than 70 - ICD9: 272.4, ICD10: E78.5 Lipids is normal 10 days ago 3. ARIANA (obstructive sleep apnea) - ICD9: 327.23, ICD10: G47.33 Sleep apnea 4. Adnexal cyst - ICD9: 625.8, ICD10: N94.[address] [facility] in [facility] for the same Modesta Daley MD documented in this encounterTr[facility]10-26-2022 Miscellaneous Notes* Telephone Encounter - Lauren Lewis LPN - 12/10/2021 9:41 AM EDT Patient called. Verified name and date of . Requested Prescriptions Pending Prescriptions Disp Refills HYDROcodone-acetaminophen (NORCO) 5-325 mg per tablet 50 tablet 0 Sig: Take 1-2 tablets by mouth every 6 hours as needed for pain. Please review and advise. Lauren Lewis LPN documented in this encounterTr[facility]10-24-2022 History of Present illness Narrative* Curt Bardales PT - 12/08/2021 1:38 PM EDT Episode Visit Count: 6 Therapist That Will Accept/Oversee The Plan Of Care: Curt Bardales Start of Care Date: 11/21/21 Onset Date: 11/22/19 Plan of Care Certification Date: 11/21/21 Next Certification Due Date: 12/26/21 Patient Identified by Name and Date of : Yes REHABILITATION AND SPORTS THERAPY PHYSICAL THERAPY TREATMENT NOTE ASSESSMENT: Melanie Bird tolerated the session with no issues. She demonstrated difficulty with pain with knee flexion exercises and is unable to hold the stretch for very long. The patient will continue to benefit from ongoing skilled physical therapy to progress toward set goals. PLAN FOR NEXT VISIT: Continue to strengthen the Quad, glutes, and hip flexors SUBJECTIVE: Patient Reason for Visit: Pt states she is doing well. Went on some walks over the weekend and tried different routes. Did walk up a hill. Small hill. Pain: Pain Pain Level: 5 Pain Location: Knee - Left Post Treatment Pain Post Treatment Pain Location: Knee - Left OBJECTIVE MEASURES WITH LEVEL OF FUNCTION: TREATMENT: Therapeutic Exercise: 1: SciFit x 5 min (Progressing knee flexion ROM) 2: Knee flexion on 6 step 2 x 10 reps holding 3 sec each 3: B Heel raises 2 x 10 reps 4: Mini squats 2 x 10 reps 5: 6 F step-ups 2 x 10 reps 6: Knee flexion seated drawing L foot under seat with strap assist 6 x 7-10 sec hold 7: F stepping over hurdles (5) x 4 8: Side-stepping over hurdles (5) x 4 9: Stepping over double hurdles (x4) x 4 sets Skilled Intervention: Patient was educated in proper exercise technique and purpose for exercises. Provided written instruction for home exercise program to facilitate proper performance and compliance. Correct performance of therapeutic exercises was facilitated with verbal and visual cuing. Billing Therapeutic Exercise Treatment Minutes: 53 Total Treatment Time Minutes (timed/untimed): 53 Curt Bardales PT documented in this encounterTr[facility]10-24-2022 History of Present illness Narrative* Viet Johnson MD - 12/08/2021 10:35 AM EDT Viet Johnson MD Department of Orthopaedics Orthopaedics [address] [facility] [address] Dept: [phone] Dept December 08, 2021 CHIEF COMPLAINT: Established Patient and Post Op of the Left Knee (5wks 5days postop L TKA- CHEL). HPI Patient is here today for 6 week postop left TKA-CHEL. Patient states she is still having a dull aching pain pretty consistently, but feels she is healing well. Pt states there is a spot on top of knee that is more painful and sore than rest of knee. Patient is taking pain medication, icing and using a cane for assistance. Patient requests a refill on pain medication. ASSESSMENT: Z96.652 S/P total knee arthroplasty, left (primary encounter diagnosis) SUMMARY/PLAN: She is making a bit of slow progress with her motion, limited to about 90 degrees. We will keep a close eye on her progression over the next couple of weeks in therapy. We may consider prednisone versus a knee manipulation. Exam: Healed incision. Mild and appropriate swelling postoperatively. Approximately 90 degrees of passiveflexion. No extensor lag. Imaging: Deferred today Supporting Information Below: Medications: Current Outpatient Medications Medication Sig HYDROcodone-acetaminophen (NORCO) 5-325 mg per tablet Take 1-2 tablets by mouth every 6 hours as needed for pain. zolpidem (AMBIEN) 5 mg tablet Take 1 tablet by mouth at bedtime as needed for sedation for up to 90days. TAKE 1 TABLET BY MOUTH AT BEDTIME NEEDED FOR SEDATION insulin glargine U-300 conc (TOUJEO SOLOSTAR U-300 INSULIN) 300 unit/mL (1.5 mL) Inject 16 Units subcutaneously every morning. sertraline (ZOLOFT) 50 mg tablet Take 1 tablet by mouth once daily. aspirin, enteric coated (ASPIRIN, ENTERIC COATED) 81 mg EC tablet Take 1 tablet by mouth twice daily for 28 days. fexofenadine (ESFERINO) 180 mg tablet TAKE 1 TABLET BY MOUTH DAILY metFORMIN ER (GLUCOPHAGE XR) 500 mg 24 hr tablet TAKE 2 TABLETS DAILY WITH MEALS cloNIDine HCl (CATAPRES) 0.1 mg tablet Take 1 tablet by mouth once daily. gabapentin (NEURONTIN) 600 mg tablet Take 3 tablets by mouth daily at bedtime for 180 days. TRULICITY 4.5 mg/0.5 mL pen injector INJECT 4.5MG SUBCUTANEOUSLY ONCE A WEEK VITAMIN C 500 mg tablet TAKE 1 TABLET BY MOUTH DAILY gabapentin (NEURONTIN) 300 mg capsule TAKE 3 CAPSULES BY MOUTH DAILY WITH LUNCH furosemide (LASIX) 20 mg tablet Take 1 tablet by mouth once daily. acyclovir (ZOVIRAX) 400 mg tablet Take 1 tablet by mouth twice daily. rOPINIRole (REQUIP) 0.5 mg tablet TAKE 1 TABLET BY MOUTH TWICE A DAY (NOON AND BEDTIME) Cholecalciferol, Vitamin D3, (VITAMIN D-3) 50 mcg (2,000 unit) cap Take 1 capsule by mouth once daily. omeprazole (PRILOSEC) 20 mg capsule Take 20 mg by mouth once daily. magnesium oxide (MAG-OX) 400 mg (241.3 mg magnesium) tablet Take 2 tablets by mouth once daily. atorvastatin (LIPITOR) 20 mg tablet Take 1 tablet by mouth once daily. AUSTEDO 6 mg tab Take 6 mg by mouth twice daily. calcium carbonate 600 mg-cholecalciferol 200 units (CALCARB 600 WITH VITAMIN D) 600 mg(1,500mg) -200 unit tab Take 1 tablet by mouth twice daily. wheat dextrin (BENEFIBER SUGAR FREE, DEXTRIN,) 3 gram/4 gram powd 1/2 tablespoon per day x2 weeks. Then increase by 1/2 tablespoon every 2 weeks until you are taking 3 tablespoons per day in divided doses. polyethylene glycol 3350 (MIRALAX, GLYCOLAX) 17 gram/dose powder Take 17 g by mouth twice daily. Drink a mix of 1 scoop in 8oz of water/beverage once daily as needed for constipation. docusate sodium (COLACE) 100 mg capsule Take 1 capsule by mouth twice daily as needed for Constipation. meclizine (ANTIVERT) 25 mg tab Take 1 tablet by mouth three times daily as needed (dizziness). Surgical Lubricant Jelly gel For MRI Female Pelvis, MRI department to provide. Administer intra-vaginal Surgilube immediately prior the MRI procedure (total amount to patient toleranace). OXYGEN, HOME THERAPY, 2 L/min by Mask route daily at bedtime. CPAP 2L at night flash glucose sensor (FREESTYLE IZABELLA 2 SENSOR) kit Use to monitor blood sugars 4 times daily Lancets lancets Test Four times a day. Insulin Dep? Yes E11.9 DM 2 blood sugar diagnostic (BLOOD GLUCOSE TEST) test strip Test Four times a day. Insulin Dep? Yes E11.9 DM 2 COMPOUNDED PRESCRIPTION PORTABLE OXYGEN TANKS FOR USE IN BACK PACK USES 3 Lpm WHEN ON PORTABLE TANKto use with exertion DX R79.81 COMPOUNDED PRESCRIPTION EMERGENCY BACKUP OXYGEN TANK FOR WHEN PATIENT LOSES ELECTRICITY DX R79.81 CPAP Initiate AutoPAP @ 10/20 cm of water with EPR of 3 , humidification. Mask (per patient preference) optional chin strap (if indicated) , filters, tubing, humidifier and lifetime supplies. Dx. ARIANA 327.23 COMPOUNDED PRESCRIPTION Oxygen supplies dx: R79.81 R06.02 COMPOUNDED PRESCRIPTION CPAP supplies Dx: G47.33 COMPOUNDED PRESCRIPTION Home Oxygen, 2 litres with cpap machine blood sugar diagnostic (ONETOUCH ULTRA TEST) test strip Test blood sugar(s) 4 times daily. Dx: Type2 DM - Uncontrolled E11.65 Insulin: Yes insulin needles, DISPOSABLE, (ULTICARE PEN NEEDLE) 31 gauge x 16 ndle UAD to inject insulins 5 times daily. Lancets (ACCU-CHEK FASTCLIX) lancets With [employer] fastclix lancing device. Check sugars 4x/day Dx:e11.65 Insulin: Yes No current facility-administered medications for this visit. Allergies: Seroquel [Quetiapine Fumarate] and Victoza [Liraglutide] Viet Johnson MD documented in this encounterTr[facility]10-20-2022 History of Present illness Narrative* Curt Bardales, PT - 12/04/2021 11:30 AM EDT Episode Visit Count: 5 Therapist That Will Accept/Oversee The Plan Of Care: Curt Bardales Start of Care Date: 11/21/21 Onset Date: 11/22/19 Plan of Care Certification Date: 11/21/21 Next Certification Due Date: 12/26/21 Patient Identified by Name and Date of : Yes REHABILITATION AND SPORTS THERAPY PHYSICAL THERAPY TREATMENT NOTE ASSESSMENT: Melanie Bird tolerated the session with no issues. She demonstrated improved knee flexion AROM. The patient will continue to benefit from ongoing skilled physical therapy to progress toward set goals. PLAN FOR NEXT VISIT: Progress ROM as tolerated. Trial stepping exercises. SUBJECTIVE: Patient Reason for Visit: Pt states she is doing better than the last visit. Less pain. Pain: Pain Pain Level: 4 Pain Location: Knee - Left Post Treatment Pain Post Treatment Pain Location: Knee - Left OBJECTIVE MEASURES WITH LEVEL OF FUNCTION: LE AROM L Knee Flexion: 90 Degrees Gait Gait Observation: Pt demonstrates walking without a cane today for 20 feet TREATMENT: Therapeutic Exercise: 1: SciFit x 5 min (working on L knee flexion ROM and subjective gathered) 2: SLR x 10 3: Supine knee ext stretch towel under heel 2 x 90 sec 4: Supine Heel slides 2 x 10 reps 5: SAQ over bolster in supine x 10 reps 6: SAQ over bolster in supine 2# x 10 7: SAQ over bolster in supine 3#, 3 x 10 reps 8: STS 2 x 10 Skilled Intervention: Patient was educated in proper exercise technique and purpose for exercises. Correct performance of therapeutic exercises was facilitated with verbal cuing. Manual Therapy: 1: Maual L HS stretch in supine 2 x 30 seconds 2: Pt in hooklying PT arm placed under L knee to encourage knee flexion stretch x 90 then x 45 sec Skilled Intervention: Manual skills to improve joint mobility, ROM, and decrease pain. Utilized anatomy knowledge of the therapist, and assessment of patient's response to intervention. Billing Therapeutic Exercise Treatment Minutes: 45 Manual TherapyTreatment Minutes: 9 Total Treatment Time Minutes (timed/untimed): 54 Curt Bardales PT documented in this encounterTrinity [facility]10-17-2022 History of Present illness Narrative* Donis Harris [facility] - 12/01/2021 11:30 AM EDT Primary Care Pharmacy Visit CC (Reason for Consult): Diabetes Goal: A1c < 7% Last Collaborating Physician/[employer]IN[employer] ATTENDANT Visit: 08/11/21 Melanie Bird is a 66 year old female presenting for follow up visit by telephone. Patient consents to pharmacy collaborative practice agreement. At last visit with pharmacy on 11/05 the following changes were made: Toujeo dose was increased. INTERIM HISTORY: Mostly staying at home since TKA surgery Goes to physical therapy twice daily and getting better, will be doing physical therapy for 2 months Now is walking with a cane Reports blood sugars are leveling out, has increase Toujeo dose was below Current DM Medications: Metformin 500 mg - 2 tabs daily Dulaglutide (Trulicity) 4.5 mg weekly on Sundays Insulin glargine U300 (Toujeo) 16 units daily - Taking differently: 18 units once daily Preventative Medications: On REJI/ARB: No On Statin: Yes GLYCEMIC CONTROL: Summary of CGM Findings: 1- CGM recording is adequate for interpretation. 2- Average glucose is 138 mg/dL. 12 am - 6am - 105 mg/dL 6 am -12pm - 128 mg/dL 12 pm - 6 pm - 157 mg/dL 6 pm - 12 am -154 mg/dL 3- Total frequency of hypoglycemia: none 4- Nocturnal hypoglycemia was not noted. 5- Hyperglycemic episodes: 8% 6- Time in target range (70-180 mg/dL): 92% ROS: Patient denies CP, SOB, HATCH, blurred vision, dizziness or lightheadedness Patient denies nausea, vomiting, diarrhea, abdominal pain Patient denies symptoms of hypoglycemia (sweating, anxiety, palpitations, hunger, and tremor) Patient denies symptoms of hyperglycemia (polyuria, polydipsia, polyphagia) Patient denies potential medication adverse effects MEDICATIONS: Pill bottles are not present. Adherence: reports missed doses. [place] [facility], [place] Rx coverage: Medicare, Medicaid Affordability: none Diabetes supplies: One Touch ACTIVE PROBLEM LIST Diabetes Mellitus Type 2 (Hcc) Ptsd (Post-Traumatic Stress Disorder) Rls (Restless Legs Syndrome) Low Oxygen Saturation Tardive Dyskinesia Hyperlipidemia With Target Ldl Less Than 70 Ariana (Obstructive Sleep Apnea) Vitamin D Deficiency Ibs (Irritable Bowel Syndrome) Respiratory Abnormality, Unspecified Hypertonicity of Bladder Cataracts, Bilateral Pedal Edema Benign Paroxysmal Positional Vertigo Plantar Fasciitis, Right Congenital Pes Cavus Primary Osteoarthritis of Left Knee Chronic Pain of Left Knee Obesity, Class III, BMI >= 40 (morbid obesity) ([facility]) E66.01 Incontinence of Feces Wound Disruption Vertigo History of Implantation of Artificial Sphincter Grief Reaction Wound of Gluteal Cleft Parkinson's Disease ([facility]) S/P Gastric Sleeve Procedure Gerd (Gastroesophageal Reflux Disease) Swelling PAST MEDICAL HISTORY Diagnosis Date Depression Diabetes mellitus type 2, uncontrolled High cholesterol History of colon polyps History of gallstones IBS (irritable bowel syndrome) Obesity 04/25/2013 BMI 48.43 ARIANA (obstructive sleep apnea) 03/06/2013 Parkinson disease ([facility]) ALLERGIES Allergen Reactions Seroquel [Quetiapin* Mental Status Change Victoza [Liraglutid* GI Upset Current Outpatient Medications Medication Sig HYDROcodone-acetaminophen (NORCO) 5-325 mg per tablet Take 1-2 tablets by mouth every 6 hours as needed for pain. zolpidem (AMBIEN) 5 mg tablet Take 1 tablet by mouth at bedtime as needed for sedation for up to 90days. TAKE 1 TABLET BY MOUTH AT BEDTIME NEEDED FOR SEDATION Surgical Lubricant Jelly gel For MRI Female Pelvis, MRI department to provide. Administer intra-vaginal Surgilube immediately prior the MRI procedure (total amount to patient toleranace). insulin glargine U-300 conc (TOUJEO SOLOSTAR U-300 INSULIN) 300 unit/mL (1.5 mL) Inject 16 Units subcutaneously every morning. sertraline (ZOLOFT) 50 mg tablet Take 1 tablet by mouth once daily. OXYGEN, HOME THERAPY, 2 L/min by Mask route daily at bedtime. CPAP 2L at night aspirin, enteric coated (ASPIRIN, ENTERIC COATED) 81 mg EC tablet Take 1 tablet by mouth twice daily for 28 days. fexofenadine (SEFERINO) 180 mg tablet TAKE 1 TABLET BY MOUTH DAILY metFORMIN ER (GLUCOPHAGE XR) 500 mg 24 hr tablet TAKE 2 TABLETS DAILY WITH MEALS cloNIDine HCl (CATAPRES) 0.1 mg tablet Take 1 tablet by mouth once daily. gabapentin (NEURONTIN) 600 mg tablet Take 3 tablets by mouth daily at bedtime for 180 days. TRULICITY 4.5 mg/0.5 mL pen injector INJECT 4.5MG SUBCUTANEOUSLY ONCE A WEEK VITAMIN C 500 mg tablet TAKE 1 TABLET BY MOUTH DAILY gabapentin (NEURONTIN) 300 mg capsule TAKE 3 CAPSULES BY MOUTH DAILY WITH LUNCH furosemide (LASIX) 20 mg tablet Take 1 tablet by mouth once daily. acyclovir (ZOVIRAX) 400 mg tablet Take 1 tablet by mouth twice daily. rOPINIRole (REQUIP) 0.5 mg tablet TAKE 1 TABLET BY MOUTH TWICE A DAY (NOON AND BEDTIME) Cholecalciferol, Vitamin D3, (VITAMIN D-3) 50 mcg (2,000 unit) cap Take 1 capsule by mouth once daily. omeprazole (PRILOSEC) 20 mg capsule Take 20 mg by mouth once daily. flash glucose sensor (FREESTYLE IZABELLA 2 SENSOR) kit Use to monitor blood sugars 4 times daily magnesium oxide (MAG-OX) 400 mg (241.3 mg magnesium) tablet Take 2 tablets by mouth once daily. atorvastatin (LIPITOR) 20 mg tablet Take 1 tablet by mouth once daily. A[place]O 6 mg tab Take 6 mg by mouth twice daily. Lancets lancets Test Four times a day. Insulin Dep? Yes E11.9 DM 2 blood sugar diagnostic (BLOOD GLUCOSE TEST) test strip Test Four times a day. Insulin Dep? Yes E11.9 DM 2 calcium carbonate 600 mg-cholecalciferol 200 units (CALCARB 600 WITH VITAMIN D) 600 mg(1,500mg) -200 unit tab Take 1 tablet by mouth twice daily. wheat dextrin (BENEFIBER SUGAR FREE, DEXTRIN,) 3 gram/4 gram powd 1/2 tablespoon per day x2 weeks. Then increase by 1/2 tablespoon every 2 weeks until you are taking 3 tablespoons per day in divided doses. polyethylene glycol 3350 (MIRALAX, GLYCOLAX) 17 gram/dose powder Take 17 g by mouth twice daily. Drink a mix of 1 scoop in 8oz of water/beverage once daily as needed for constipation. docusate sodium (COLACE) 100 mg capsule Take 1 capsule by mouth twice daily as needed for Constipation. COMPOUNDED PRESCRIPTION PORTABLE OXYGEN TANKS FOR USE IN BACK PACK USES 3 Lpm WHEN ON PORTABLE TANKto use with exertion DX R79.81 COMPOUNDED PRESCRIPTION EMERGENCY BACKUP OXYGEN TANK FOR WHEN PATIENT LOSES ELECTRICITY DX R79.81 CPAP Initiate AutoPAP @ 10/20 cm of water with EPR of 3 , humidification. Mask (per patient preference) optional chin strap (if indicated) , filters, tubing, humidifier and lifetime supplies. Dx. ARIANA 327.23 COMPOUNDED PRESCRIPTION Oxygen supplies dx: R79.81 R06.02 COMPOUNDED PRESCRIPTION CPAP supplies Dx: G47.33 COMPOUNDED PRESCRIPTION Home Oxygen, 2 litres with cpap machine blood sugar diagnostic (ONETOUCH ULTRA TEST) test strip Test blood sugar(s) 4 times daily. Dx: Type2 DM - Uncontrolled E11.65 Insulin: Yes meclizine (ANTIVERT) 25 mg tab Take 1 tablet by mouth three times daily as needed (dizziness). insulin needles, DISPOSABLE, (ULTICARE PEN NEEDLE) 31 gauge x 5/16 ndle UAD to inject insulins 5 times daily. Lancets (ACCU-CHEK FASTCLIX) lancets With [employer] fastclix lancing device. Check sugars 4x/day Dx:e11.65 Insulin: Yes No current facility-administered medications for this visit. EXAM: Last 3 Encounter BP Readings: Date: BP: 11/11/2021 116/72 11/07/2021 126/60 11/05/2021 118/76 Wt: 106.1 kg (234 lb) BMI: 40.17 kg/(m^2) LABS: Lab Results Component Value Date HBA1C 7.0 07/30/2021 HBA1C 7.0 11/15/2020 HBA1C 7.2 09/02/2020 HBA1C 8.2 06/03/2020 CMP: Glucose 220 10/30/2021 BUN 11 10/30/2021 Creatinine, Whole Blood (iSTAT) 0.61 10/30/2021 Sodium 140 10/30/2021 Potassium 4.3 10/30/2021 Chloride 101 10/30/2021 CO2 32 10/30/2021 Protein, Total 6.5 08/22/2021 Albumin 4.0 08/22/2021 Calcium 9.5 10/30/2021 Alkaline Phosphatase 60 08/22/2021 Bilirubin, Total 0.7 08/22/2021 AST 22 08/22/2021 ALT 21 08/22/2021 Serum creatinine: 0.61 mg/dL 10/30/21 1039 Estimated creatinine clearance: 110.8 mL/min No results found for: GFR eGFR- (no units) Date Value 11/15/2020 >60 Lab Results Component Value Date CHOL 138 11/15/2020 LDL 72 11/15/2020 HDL 45 11/15/2020 TG 103 11/15/2020 The 10-year ASCVD risk score (Vamsi GANDHI, et al., 2019) is: 9.3% Values used to calculate the score: Age: 66 years Sex: Female Is Non- : No Diabetic: Yes Tobacco smoker: No Systolic Blood Pressure: 116 mmHg Is BP treated: Yes HDL Cholesterol: 45 mg/dL Total Cholesterol: 138 mg/dL Albumin/Creat Ratio (mg/g) Date Value 07/30/2021 <10 PHARMACOTHERAPY ASSESSMENT/PLAN: 1. Uncontrolled type 2 diabetes mellitus with hyperglycemia (HCC) - ICD9: 250.02, ICD10: E11.65 A1c goal < 7%; almost at goal (last A1c 7.0%); SMBG improved on current regimen; denies s/sx hypoglycemia; denies s/sx hyperglycemia. Patient was self- increased Toujeo dose, readings improving with fasting BG average in low 100s. Today, will instruct to current regimen as prescribed to prevent Adjust Toujeo 16 units once daily as prescribed CONTINUE Trulicity 4.5 mg weekly, metformin 500 mg 2 times daily before meal Follow up: Patient is scheduled to see PCP team on 12/11/21. Patient to follow up with pharmD on 12/29/21. Patient verbalized understanding of instructions. Donis Harris, PharmD, BCACP Primary Care Clinical Pharmacist The majority of the pharmacy visit (> 50%) was spent counseling and/or coordinating care for thepatient. [Telephonic] time was 20 minutes. documented in this [facility]Tr[facility]-12-2022 Miscellaneous Notes* Telephone Encounter - Marycruz Sweeney Ma - 11/26/2021 1:25 PM EDT Patient has been identified by name and date of : Yes Requested Prescriptions Pending Prescriptions Disp Refills HYDROcodone-acetaminophen (NORCO) 5-325 mg per tablet 50 tablet 0 Sig: Take 1-2 tablets by mouth every 6 hours as needed for pain. RX INSTRUCTIONS: Patient aware RX will be sent to pharmacy. No need to notify patient. Confirmed [facility]. Marycruz Sweeney Ma documented in this encounterTr[facility]10-10-2022 History of Present illness Narrative* Curt Bardales, PT - 11/24/2021 2:09 PM EDT Episode Visit Count: 2 Therapist That Will Accept/Oversee The Plan Of Care: Curt Bardales Start of Care Date: 11/21/21 Onset Date: 11/22/19 Plan of Care Certification Date: 11/21/21 Next Certification Due Date: 12/26/21 Patient Identified by Name and Date of : Yes REHABILITATION AND SPORTS THERAPY PHYSICAL THERAPY TREATMENT NOTE ASSESSMENT: Melanie Byrnes Pelon tolerated the session with fatigue. She demonstrated difficulty with quad sets. The patient will continue to benefit from ongoing skilled physical therapy to progress toward set goals. PLAN FOR NEXT VISIT: Continue with L knee ROM SUBJECTIVE: Patient Reason for Visit: Pt reports she is feeling extra shaky today, thinks its due to her Parkinson's. pt reports taking a pian pill prior to coming to therapy today. Pain: Pain Pain Level: 0 Pain Location: Knee - Left Post Treatment Pain Post Treatment Pain Location: Knee - Left OBJECTIVE MEASURES WITH LEVEL OF FUNCTION: LE AROM L Knee Flexion: 80 Degrees (85 with strap) TREATMENT: Therapeutic Exercise: 1: Seated stepper seat 12 x 5 minutes (Subjective obtained) 2: STS x10 no use of BUE (with wide PHILIP) 3: Supine Heel slides x 10 reps using strap assist, x10 with strap with 3 second hold the, additional pull 4: SLR x10 with strap, x10 no strap 5: Quad sets 2x10 (painful in back of the knee) 6: SAQ 2x10 7: *Seated Hamstring stretch 3x30 seconds L 8: *LAQ 2x10 Skilled Intervention: Patient was educated in proper exercise technique and purpose for exercises. Reviewed and educated patient on additions/changes for home exercise program as above (*). Skilled judgment was provided in selection of appropriate interventions. Provided written instruction for home exercise program to facilitate proper performance and compliance. Correct performance of therapeutic exercises was facilitated with verbal, visual, and tactile cuing. Billing Therapeutic Exercise Treatment Minutes: 45 Total Treatment Time Minutes (timed/untimed): 45 ARTHUR Trotter PT documented in this encounterTr[facility]10-07-2022 Miscellaneous Notes* Telephone Encounter - Selena Vinson LPN - 11/21/2021 3:01 PM EDT Patient has been identified by name and date of : Yes Pharmacy phones for refill(s): Requested Prescriptions Pending Prescriptions Disp Refills zolpidem (AMBIEN) 5 mg tablet 30 tablet 2 Sig: Take 1 tablet by mouth at bedtime as needed for sedation for up to 90 days. TAKE 1 TABLET BY MOUTH AT BEDTIME NEEDED FOR SEDATION Date of last office visit in primary care: 08/11/21 Last 2 Encounter Wt Readings: Date: Wt: 10/13/2021 106.1 kg (234 lb) 09/16/2021 106.1 kg (234 lb) Previous labs/tests for medication: Not applicable Please advise. Thank you. Selena Vinson LPN documented in this encounterTr[facility]10-07-2022 History of Present illness Narrative* Curt Bardales PT - 11/21/2021 10:30 AM EDT Episode Visit Count: 1 Therapist That Will Accept/Oversee The Plan Of Care: Curt Bardales Start of Care Date: 11/21/21 Onset Date: 11/22/19 Plan of Care Certification Date: 11/21/21 Next Certification Due Date: 12/26/21 Patient Identified by Name and Date of : Yes REHABILITATION AND SPORTS THERAPY PHYSICAL THERAPY EVALUATION PLAN OF CARE: Assessment: Melanie Bird presents with diagnosis of L TKA on 10/29/2021 that interferes with walking;standing;rising from a chair . She presents with impairments in ADL's, gait, independence in exercise, joint mobility, overall function, range of motion, and strength. Prognosis for therapy is Excellent due to: current objective clinical presentation;good overall health status . She will benefit from skilled therapy services to meet the goals established for this plan of care as noted below. Goals for Episode of Care: created on 11/21/21 through 02/13/22 Pt will demo a score of 10 reps during the 30 sec STS test in 8 weeks [place] in home exercise program. Patient will demonstrate increase in LE strength to 4+/5 during manual muscle testing in order to improve function for walking, transfers, and carrying objects. Increase ROM of the L knee to 0-120 degrees of ext/flexion for decreased pain and improved function Normal gait. Patient Goals: Improve function and drive again! Planned Interventions, Frequency, and Duration: Current Frequency: 2x/week Duration: 4 weeks Planned Treatment Interventions: Patient demonstrates good understanding of plan of care and treatment. The above goals and plan of care were discussed and agreed upon by patient/family. SUBJECTIVE: Melanie Bird is a 66 year old female seen today for L TKA. Has 1 step into the apartment but it is very small. Pt states she is going good but can get a little down because she is stuck at home. Patient Goals: Improve function and drive again! Functional Limitations: walking;standing;rising from a chair Prior Level of Function: Independent without limitations Relevant History Preferred Language: Romansh Recreation / Current Exercise: Home PT exercises and walking Home Environment Patient Lives With: Self/Alone Intake Information: Prescription present Previous Treatment: Physical Therapy ;Pain meds Falls Interview: No positive findings with falls interview Pain: Pain Pain Level: 7 Pain Location: Knee - Left Description: Sharp PROMIS Scales Higher is Better 03/09/2019 04/15/2020 08/17/2020 GH Physical - Score 42.3 47.7 47.7 (Good) GH Physical - Percentile 22 % 41 % 41 % GH Mental - Score 43.5 41.1 45.8 (Good) GH Mental - Percentile 26 % 19 % 34 % T-scores: mean of general population = 50. 5 points is clinically meaningfully difference Percentiles provide an indication of how the patient's score ranks in relation to the general population. Higher percentile rankings indicate better function/quality of life. 50th percentile is the average of the general population and indicates half of respondents had a worse score. T-scores: mean of general population = 50. 5 points is clinically meaningfully difference Percentiles provide an indication of how the patient's score ranks in relation to the general population. Higher percentile rankings indicate better function/quality of life. 50th percentile is the average of the general population and indicates half of respondents had a worse score. OBJECTIVE MEASURES WITH LEVEL OF FUNCTION: Knee Observations L Knee Presents with: Incision;Swelling L Swelling: Moderate swelling L Incision: Clean; WNL LE AROM R LE AROM: WNL L LE AROM: WNL (Unless otherwise noted) L Knee Extension: 2 Degrees L Knee Flexion: 80 Degrees Lumbar Spine Evaluated?: No LE Joint Mobility L Patellar Mobility: Hypomobile LE Strength L Hip Extension: 3/5 L Hip Flexion (L2): 3+/5 L Hip External Rotation: 3-/5 L Knee Extension (L3): 3/5 L Ankle Dorsiflexion (L4): 4+/5 Gait Gait: Modified Independent Gait Distance (feet): 50 Gait Device: Cane Gait Deviations: Left Lower Extremity Gait Deviations Left Lower Extremity: Stance time decreased;Step length decreased;Weight bearing decreased;Lacks full knee extension during terminal swing Functional Performance Test Results 30 Second Chair Stand Test: 5 reps Education: Education Learning Preferences: Demonstration;Explanation;Performance;Printed Materials Barriers: None Learning/educational needs: Home exercise program;Plan of Care Education Provided: Yes, see treatment interventions for education provided Education Provided To: Patient Education Mode/Type: Demonstration;Explanation/Discussion;Literature/Printed Materials;Performance Response to Education/Teach Back: States/Identifies;Return Demonstration TREATMENT: PT Treatment Interventions: Therapeutic Exercise Evaluation Therapeutic Exercise: 2: Discussed STS exercise for home 3: Supine Heel slides x 5 reps usign strap assist holding 5 sec each 4: Seated LAQ x 10 5: Seated Heel slides on towel 2 x 5 reps holding 5 sec each Skilled Intervention: Patient was educated in proper exercise technique and purpose for exercises. Skilled judgment was provided in selection of appropriate interventions. Provided written instruction for home exercise program to facilitate proper performance and compliance. Correct performance of therapeutic exercises was facilitated with verbal and visual cuing. Billing * Evaluation Low Complexity: 1 Unit Therapeutic Exercise Treatment Minutes: 25 Total Treatment Time Minutes (timed/untimed): 45 Curt Bardales PT documented in this encounterTr[facility]10-05-2022 History of Present illness Narrative* Lauren Akbar RT(R) - 11/19/2021 3:00 PM EDT Radiology Service Progress Note DATE OF SERVICE: November 19, 2021 TIME: 3:59 PM PATIENT IDENTITY VERIFICATION COMPLETED USING TWO (2) STANDARD IDENTIFIERS: Name and Date of confirmed by patient verbally. FALL SCREENING: Has the patient had 2 falls in the last year or 1 fall with injury or currently using an Ambulatory Assistive Device (Walker, Cane, Wheelchair, Crutches, etc.)? No PATIENT GENDER DATA: Female. status: : No status: NO. PATIENT RELEVANT IMPLANT DATA REVIEWED: Yes ALLERGIES: Reviewed and unchanged CONTRAST ALLERGY: NO. EXAM: CT -CONTRAST INDUCED NEPHROPATHY RISK FACTORS: Patient age > 60 years CREATININE: Creatinine Date Value Ref Range Status 10/30/2021 0.61 0.58 - 0.96 mg/dL Final 08/22/2021 0.58 0.58 - 0.96 mg/dL Final 07/30/2021 0.62 0.58 - 0.96 mg/dL Final Estimated Glomerular Filtration Rate Date Value Ref Range Status 10/30/2021 100 >=60 mL/min/1.73m Final Comment: Estimated Glomerular Filtration Rate (eGFR) is calculated using the 2020 CKD-EPI creatinine equation. This equation utilizes serum creatinine, sex, and age as parameters. The creatinine assay has traceable calibration to isotope dilution- mass spectrometry. Refer to KDIGO guidelines for clinical interpretation. In patients with unstable renal function, e.g. those with acute kidney injury, the eGFRmay not accurately reflect actual GFR. eGFR- Date Value Ref Range Status 11/15/2020 >60 Final P.O.C.T. RESULTS: POC done: Yes, See Lab Tab November 19, 2021 TREATMENT: N/A PERIPHERAL IV DATA: Ambulatory: A peripheral IV was started in the Left antecubital site with a Angio cath: 22 gauge. RADIOLOGY DEPARTMENT: CT; Exam(s) Completed: Pelvis SIGNATURE: RT Bernardo(R) PATIENT NAME: Melanie Bird DATE: November 19, 2021 TIME: 3:59 PM documented in this [facility]10-03-2022 Miscellaneous Notes* Telephone Encounter - Honey Pringle LPN - 11/17/2021 11:12 AM EDT Patient called in requesting status on norco. Informed patient that it was sent in today to sugar run. Patient verbalized understanding. Honey Pringle LPN documented in this [facility]09-29-2022 Miscellaneous Notes* Telephone Encounter - Effie Loredo RN - 11/13/2021 2:38 PM EDT Requested Prescriptions Pending Prescriptions Disp Refills HYDROcodone-acetaminophen (NORCO) 5-325 mg per tablet 50 tablet 0 Sig: Take 1-2 tablets by mouth every 6 hours as needed for pain. Pt requesting refill of above medication. Rating pain 6/10 today. Pt states has only been taking 2 tabs about 2 or three times a day. documented in this [facility]09-28-2022 Miscellaneous Notes* Telephone Encounter - Juanita Benitez RN - 11/12/2021 3:17 PM EDT Appointment scheduled with DM. Juanita Benitez RN * Telephone Encounter - Inna Small 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 - 11/12/2021 10:18 AM EDT Patient states she is unable to do MRI related to implanted defibrillator. States it must be a CT scan. CT ordered w/ contrast. Please let patient know she will need to hold her metformin for 3 days after study since she is getting IV contrast. Thank you Inna Small 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 * Telephone Encounter - Modesta Daley MD - 11/11/2021 5:35 PM EDT MRI ordered for patient please schedule it felicia * Telephone Encounter - Chyna Delacruz MD - 11/11/2021 8:14 AM EDT Radiologist replied about the pelvic ultrasound- the reports was very vague regarding simple cyst- he does recommend pelvic MRI due to size- if Dr. Daley wants to place that order since she placed original order for ultrasound that would be great since I have not seen her in years and I worry insurance will be troublesome since I have not been involved in her care since 2016. I still do not see that this patient has been scheduled with us for follow up and reestablish care as she has not been seen for many years with [employer] SERVICE TECHNICIAN. Please follow up and see that she gets scheduled to discuss further. documented in this encounterTr[facility]09-27-2022 Miscellaneous Notes* PT ROUTINE/REASSESSMENT/RECERT/CASE MGMT - Katey Alvarez PTA - 11/11/2021 9:54 AM EDT SITUATION: only patient present during today's visit. patient reports the following since the last homecare visit: medications/allergies--no changes, no fall. patient reports Dr was pleased and said knee was healing well.. BACKGROUND: Diagnoses (reason for Home Care): LTKR Weight Bearing/Precaution Changes: no changes ASSESSMENT: Focus of visit shower transfers, progression of ROM and strength exercises fro HEP and gait training w/ quad cane. Plan of care, goals, and visit frequency reviewed and agreed upon with patient and/or caregiver. Current Discharge Plan: outpatient rehab Anticipate discharge by 11/14/21 RECOMMENDATION: Next visit to focus on PT to see for DC See intervention summary for intervention/education details. documented in this encounterTr[facility]09-23-2022 Miscellaneous Notes* PT ROUTINE/REASSESSMENT/RECERT/CASE MGMT - Jemima Brunner, PT - 11/07/2021 1:31 PM EDT SITUATION: only patient present during today's visit. patient reports the following since the last homecare visit: medications/allergies--no changes, no fall. patient reports she is doing better every day. Informed pt that Kelli put in the order for OP PT and she can [facility] first week of Nov. Offered to assist pt in getting that set up but she needed to check with friends first to see who is able to drive ehr and when BACKGROUND: Diagnoses (reason for Home Care): LTKR Weight Bearing/Precaution Changes: no changes ASSESSMENT: ROM and strength exercises for HEP. gait training w/ ww Plan of care, goals, and visit frequency reviewed and agreed upon with patient Current Discharge Plan: outpatient rehab Anticipate discharge by 11/14/21 RECOMMENDATION: Next visit to focus on schedule appt. STanding ther ex See intervention summary for intervention/education details. documented in this encounterTrinity [facility]09-21-2022 Miscellaneous Notes* Addendum Note - Kelli Davis PA-C - 11/05/2021 2:07 PM EDTAddended by: KELLI DAVIS on: 11/05/2021 02:07 PM Modules accepted: Orders * Telephone Encounter - Kelli Davis PA-C - 11/05/2021 2:06 PM EDT OP OT order placed. * Telephone Encounter - Katey Alvarez PTA - 11/05/2021 1:58 PM EDT Removed surgical bandage today. No concerns. Picture uploaded to chart. Would like to get patients OP PT scheduled to begin at completion of Home Care PT. Can you please enter orders so I can get that scheduled for her? Thanks documented in this encounterTrinity [facility]09-21-2022 History of Present illness Narrative* Donis Harris, [facility] - 11/05/2021 2:00 PM EDT Primary Care Pharmacy Visit CC (Reason for Consult): Diabetes Goal: A1c < 7% Last Collaborating Physician/[employer]INET ATTENDANT Visit: 08/11/21 Melanie Bird is a 66 year old female presenting for follow up visit by telephone. Patient consents to pharmacy collaborative practice agreement. At last visit with pharmacy on 10/06 the following changes were made: Toujeo dose was increased. INTERIM HISTORY: Recently had TKA, reports readings have been higher in the 200s after surgery Limited activity during recovery Current DM Medications: Metformin 500 mg - 2 tabs daily Dulaglutide (Trulicity) 4.5 mg weekly on Sundays Insulin glargine U300 (Toujeo) - Taking 12 units daily Preventative Medications: On REJI/ARB: No On Statin: Yes GLYCEMIC CONTROL: Summary of CGM Findings: 1- CGM recording is adequate for interpretation. 2- Average glucose is 208 mg/dL. 12 am - 6am - 178 mg/dL 6 am -12pm - 219 mg/dL 12 pm - 6 pm - 249 mg/dL 6 pm - 12 am -214 mg/dL 3- Total frequency of hypoglycemia: none 4- Nocturnal hypoglycemia was not noted. 5- Hyperglycemic episodes: 73% 6- Time in target range (70-180 mg/dL): 26% ROS: Patient denies CP, SOB, HATCH, blurred vision, dizziness or lightheadedness Patient denies nausea, vomiting, diarrhea, abdominal pain Patient denies symptoms of hypoglycemia (sweating, anxiety, palpitations, hunger, and tremor) Patient denies symptoms of hyperglycemia (polyuria, polydipsia, polyphagia) Patient denies potential medication adverse effects MEDICATIONS: Pill bottles are not present. Adherence: reports missed doses. Pharmacy: [place], [place]; [facility], [place] Radha Rx coverage: Medicare, Medicaid Affordability: none Diabetes supplies: One Touch ACTIVE PROBLEM LIST Diabetes Mellitus Type 2 (Hcc) Ptsd (Post-Traumatic Stress Disorder) Rls (Restless Legs Syndrome) Low Oxygen Saturation Tardive Dyskinesia Hyperlipidemia With Target Ldl Less Than 70 Ariana (Obstructive Sleep Apnea) Vitamin D Deficiency Ibs (Irritable Bowel Syndrome) Respiratory Abnormality, Unspecified Hypertonicity of Bladder Cataracts, Bilateral Pedal Edema Benign Paroxysmal Positional Vertigo Plantar Fasciitis, Right Congenital Pes Cavus Primary Osteoarthritis of Left Knee Chronic Pain of Left Knee Obesity, Class III, BMI >= 40 (morbid obesity) ([facility]) E66.01 Incontinence of Feces Wound Disruption Vertigo History of Implantation of Artificial Sphincter Grief Reaction Wound of Gluteal Cleft Parkinson's Disease ([facility]) S/P Gastric Sleeve Procedure Gerd (Gastroesophageal Reflux Disease) Swelling PAST MEDICAL HISTORY Diagnosis Date Depression Diabetes mellitus type 2, uncontrolled High cholesterol History of colon polyps History of gallstones IBS (irritable bowel syndrome) Obesity 04/25/2013 BMI 48.43 ARIANA (obstructive sleep apnea) 03/06/2013 Parkinson disease ([facility]) ALLERGIES Allergen Reactions Seroquel [Quetiapin* Mental Status Change Victoza [Liraglutid* GI Upset Current Outpatient Medications Medication Sig HYDROcodone-acetaminophen (NORCO) 5-325 mg per tablet Take 1-2 tablets by mouth every 6 hours as needed for pain. insulin glargine U-300 conc (TOUJEO SOLOSTAR U-300 INSULIN) 300 unit/mL (1.5 mL) Inject 16 Units subcutaneously every morning. sertraline (ZOLOFT) 50 mg tablet Take 1 tablet by mouth once daily. OXYGEN, HOME THERAPY, 2 L/min by Mask route daily at bedtime. CPAP 2L at night aspirin, enteric coated (ASPIRIN, ENTERIC COATED) 81 mg EC tablet Take 1 tablet by mouth twice daily for 28 days. fexofenadine (SEFERINO) 180 mg tablet TAKE 1 TABLET BY MOUTH DAILY metFORMIN ER (GLUCOPHAGE XR) 500 mg 24 hr tablet TAKE 2 TABLETS DAILY WITH MEALS cloNIDine HCl (CATAPRES) 0.1 mg tablet Take 1 tablet by mouth once daily. gabapentin (NEURONTIN) 600 mg tablet Take 3 tablets by mouth daily at bedtime for 180 days. TRULICITY 4.5 mg/0.5 mL pen injector INJECT 4.5MG SUBCUTANEOUSLY ONCE A WEEK VITAMIN C 500 mg tablet TAKE 1 TABLET BY MOUTH DAILY zolpidem (AMBIEN) 5 mg tablet Take 1 tablet by mouth at bedtime as needed for sedation for up to 90days. TAKE 1 TABLET BY MOUTH AT BEDTIME NEEDED FOR SEDATION Do not start before September 09, 2021. gabapentin (NEURONTIN) 300 mg capsule TAKE 3 CAPSULES BY MOUTH DAILY WITH LUNCH furosemide (LASIX) 20 mg tablet Take 1 tablet by mouth once daily. acyclovir (ZOVIRAX) 400 mg tablet Take 1 tablet by mouth twice daily. rOPINIRole (REQUIP) 0.5 mg tablet TAKE 1 TABLET BY MOUTH TWICE A DAY (NOON AND BEDTIME) Cholecalciferol, Vitamin D3, (VITAMIN D-3) 50 mcg (2,000 unit) cap Take 1 capsule by mouth once daily. omeprazole (PRILOSEC) 20 mg capsule Take 20 mg by mouth once daily. flash glucose sensor (FREESTYLE IZABELLA 2 SENSOR) kit Use to monitor blood sugars 4 times daily magnesium oxide (MAG-OX) 400 mg (241.3 mg magnesium) tablet Take 2 tablets by mouth once daily. atorvastatin (LIPITOR) 20 mg tablet Take 1 tablet by mouth once daily. AUSTEDO 6 mg tab Take 6 mg by mouth twice daily. Lancets lancets Test Four times a day. Insulin Dep? Yes E11.9 DM 2 blood sugar diagnostic (BLOOD GLUCOSE TEST) test strip Test Four times a day. Insulin Dep? Yes E11.9 DM 2 calcium carbonate 600 mg-cholecalciferol 200 units (CALCARB 600 WITH VITAMIN D) 600 mg(1,500mg) -200 unit tab Take 1 tablet by mouth twice daily. wheat dextrin (BENEFIBER SUGAR FREE, DEXTRIN,) 3 gram/4 gram powd 1/2 tablespoon per day x2 weeks. Then increase by 1/2 tablespoon every 2 weeks until you are taking 3 tablespoons per day in divided doses. polyethylene glycol 3350 (MIRALAX, GLYCOLAX) 17 gram/dose powder Take 17 g by mouth twice daily. Drink a mix of 1 scoop in 8oz of water/beverage once daily as needed for constipation. docusate sodium (COLACE) 100 mg capsule Take 1 capsule by mouth twice daily as needed for Constipation. COMPOUNDED PRESCRIPTION PORTABLE OXYGEN TANKS FOR USE IN BACK PACK USES 3 Lpm WHEN ON PORTABLE TANKto use with exertion DX R79.81 COMPOUNDED PRESCRIPTION EMERGENCY BACKUP OXYGEN TANK FOR WHEN PATIENT LOSES ELECTRICITY DX R79.81 CPAP Initiate AutoPAP @ 10/20 cm of water with EPR of 3 , humidification. Mask (per patient preference) optional chin strap (if indicated) , filters, tubing, humidifier and lifetime supplies. Dx. ARIANA 327.23 COMPOUNDED PRESCRIPTION Oxygen supplies dx: R79.81 R06.02 COMPOUNDED PRESCRIPTION CPAP supplies Dx: G47.33 COMPOUNDED PRESCRIPTION Home Oxygen, 2 litres with cpap machine blood sugar diagnostic (T[place]el CinemaTOUCH ULTRA TEST) test strip Test blood sugar(s) 4 times daily. Dx: Type2 DM - Uncontrolled E11.65 Insulin: Yes meclizine (ANTIVERT) 25 mg tab Take 1 tablet by mouth three times daily as needed (dizziness). insulin needles, DISPOSABLE, (ULTICARE PEN NEEDLE) 31 gauge x 5/16 ndle UAD to inject insulins 5 times daily. Lancets (ACCU-CHEK FASTCLIX) lancets With [employer] fastclix lancing device. Check sugars 4x/day Dx:e11.65 Insulin: Yes No current facility-administered medications for this visit. EXAM: Last 3 Encounter BP Readings: Date: BP: 11/05/2021 118/76 11/03/2021 114/60 10/31/2021 132/72 Wt: 106.1 kg (234 lb) BMI: 40.17 kg/(m^2) LABS: Lab Results Component Value Date HBA1C 7.0 07/30/2021 HBA1C 7.0 11/15/2020 HBA1C 7.2 09/02/2020 HBA1C 8.2 06/03/2020 CMP: Glucose 220 10/30/2021 BUN 11 10/30/2021 Creatinine, Whole Blood (iSTAT) 0.61 10/30/2021 Sodium 140 10/30/2021 Potassium 4.3 10/30/2021 Chloride 101 10/30/2021 CO2 32 10/30/2021 Protein, Total 6.5 08/22/2021 Albumin 4.0 08/22/2021 Calcium 9.5 10/30/2021 Alkaline Phosphatase 60 08/22/2021 Bilirubin, Total 0.7 08/22/2021 AST 22 08/22/2021 ALT 21 08/22/2021 Serum creatinine: 0.61 mg/dL 10/30/21 1039 Estimated creatinine clearance: 110.8 mL/min Lab Results Component Value Date CHOL 138 11/15/2020 LDL 72 11/15/2020 HDL 45 11/15/2020 TG 103 11/15/2020 The 10-year ASCVD risk score (Vamsi GANDHI, et al., 2019) is: 7.2% Values used to calculate the score: Age: 66 years Sex: Female Is Non- : No Diabetic: Yes Tobacco smoker: No Systolic Blood Pressure: 118 mmHg Is BP treated: No HDL Cholesterol: 45 mg/dL Total Cholesterol: 138 mg/dL Albumin/Creat Ratio (mg/g) Date Value 07/30/2021 <10 PHARMACOTHERAPY ASSESSMENT/PLAN: 1. Uncontrolled type 2 diabetes mellitus with hyperglycemia (HCC) - ICD9: 250.02, ICD10: E11.65 A1c goal < 7%; almost at goal (last A1c 7.0%); SMBG elevated on current regimen related to recent TKA; denies s/sx hypoglycemia; denies s/sx hyperglycemia.Today, insulin dose was increased for improved BG control. INCREASE Toujeo 16 units once daily CONTINUE Trulicity 4.5 mg weekly, metformin 500 mg 2 times daily before meal - TOUJEO SOLOSTAR U-300 INSULIN 300 UNIT/ML (1.5 ML) SUBCUTANEOUS PEN Follow up: Patient is scheduled to see PCP on 12/11/21. Patient to follow up with pharmD in 2 weeks. Patient verbalized understanding of instructions. Donis Harris PharmD, BCACP Primary Care Clinical Pharmacist The majority of the pharmacy visit (> 50%) was spent counseling and/or coordinating care for thepatient. [Telephonic] time was 10 minutes. documented in this encounterTr[facility]09-21-2022 Miscellaneous Notes* Telephone Encounter - Sherrell Mckenzie RN - 11/05/2021 1:05 PM EDT Patient phones requesting refills as follows: Requested Prescriptions Pending Prescriptions Disp Refills HYDROcodone-acetaminophen (NORCO) 5-325 mg per tablet 50 tablet 0 Sig: Take 1-2 tablets by mouth every 6 hours as needed for pain. Please review and advise. Sherrell Mckenzie RN documented in this encounterTrinity [facility]09-21-2022 Miscellaneous Notes* PT ROUTINE/REASSESSMENT/RECERT/CASE MGMT - Katey Alvarez PTA - 11/05/2021 11:05 AM EDT SITUATION: only patient present during today's visit. patient reports the following since the last homecare visit: medications/allergies--no changes, no fall. patient reports she is doing better every day. BACKGROUND: Diagnoses (reason for Home Care): LTKR Weight Bearing/Precaution Changes: no changes ASSESSMENT: Focus of visit bandage removal. ROM and strength exercises for HEP. gait training w/ ww Plan of care, goals, and visit frequency reviewed and agreed upon with patient and/or caregiver. Current Discharge Plan: outpatient rehab Anticipate discharge by 11/14/21 RECOMMENDATION: Next visit to focus on schedule OP PT if orders are entered. possibly add standing hamstring curls See intervention summary for intervention/education details. documented in this encounterTr[facility]09-19-2022 Miscellaneous Notes* PT ROUTINE/REASSESSMENT/RECERT/CASE MGMT - Jemima Brunner, PT - 11/03/2021 3:16 PM EDT SITUATION: No one present during today's visit. patient reports compliance to HEP and states her pain is getting better BACKGROUND: Diagnoses (reason for Home Care): Chronic pain of left knee [M25.562, G89.29] * Primaryosteoarthritis of left knee [M17.12] s/ p ROBOTIC ASSISTED TOTAL KNEE ARTHROPLASTY (Left) on 10/29/2021 ACTIVE PROBLEM LIST Rls (Restless Legs Syndrome) Vitamin D Deficiency Primary Osteoarthritis of Left Knee Chronic Pain of Left Knee Obesity, Class III, BMI >= 40 (morbid obesity) ([facility]) E66.01 Wound D isruption Parkinson's Disease ([facility]) Swelling Weight Bearing or Surgical Precautions: WBAT L LE ASSESSMENT: Focus of visit review HEP , assess pain , ROM, gait training Plan of care, goals, and visit frequency reviewed and agreed upon with patient and/or caregiver. Current Discharge Plan: outpatient rehab Anticipate discharge by 11/15/21 RECOMMENDATION: Next visit to focus on ther ex, rom , gait See intervention summary for intervention/education details. documented in this encounterTrinity [facility]09-16-2022 Miscellaneous Notes* PT SOC/NEELIMA/FOLLOW UP/OTHER - Trav Teran, PT - 10/31/2021 3:41 PM EDT SITUATION: friend present during today's visit. patient reports compliance to HEP and states she is in severe L knee pain. BACKGROUND: Diagnoses (reason for Home Care): Chronic pain of left knee [M25.562, G89.29] * Primary osteoarthritis of left knee [M17.12] s/ p ROBOTIC ASSISTED TOTAL KNEE ARTHROPLASTY (Left)on 10/29/2021 ACTIVE PROBLEM LIST Rls (Restless Legs Syndrome) Vitamin D Deficiency Primary Osteoarthritis of Left Knee Chronic Pain of Left Knee Obesity, Class III, BMI >= 40 (morbid obesity) ([facility]) E66.01 Wound D isruption Parkinson's Disease ([facility]) Swelling Weight Bearing or Surgical Precautions: WBAT L LE ASSESSMENT: [facility]. Reviewed and explained homecare services. Plan of care, goals, and visit frequency developed, reviewed, and agreed upon with patient and/or caregiver. L knee ROM 10-63 degrees AROM. Patient Goal: To walk without a walker Patient will benefit from continued physical therapy to address the following deficits: strength, gait, L knee joint ROM, transfers, stair negotiation and bed mobility. Current Discharge Plan: outpatient rehab. Anticipate discharge by 11/15/21. RECOMMENDATION: Next visit to focus on pain/edema management, L knee strength/ROM, progress HEP and progress ambulation Agreeable to PT; declining NA. See intervention summary for intervention/education details. documented in this encounterTrinity [facility]09-16-2022 Miscellaneous Notes* Telephone Encounter - Divina Alcantara LPN - 10/31/2021 2:01 PM EDT Patient has been identified by name and date of : Yes Pharmacy phones for refill(s): Requested Prescriptions Pending Prescriptions Disp Refills sertraline (ZOLOFT) 50 mg tablet 30 tablet 5 Sig: Take 1 tablet by mouth once daily. Date of last office visit in primary care: 08/11/2021, has appt 12/11/2021 Last 2 Encounter Wt Readings: Date: Wt: 10/13/2021 106.1 kg (234 lb) 09/16/2021 106.1 kg (234 lb) Previous labs/tests for medication: Not applicable Please advise. Thank you. Divina Alcantara LPN documented in this encounterTrinity Health [facility]09-15-2022 Miscellaneous Notes* Telephone Encounter - LES Kevin - 10/30/2021 10:05 AM EDT Welcome Home Call: a. Date and Time: 10:05 AM 10/30/2021 b. Contact name/relationship: patient c. Have you been active with any Home Care company in the last 60 days(such as help with bathing, filling medications, checking your blood pressure) ? No. d. Was patient given Flu shot this Season (After Oct,): Yes: Location: [facility] , Date received: 09/26/2021 e. [facility] will be providing your care, are you agreeable to starting these services? yes (yes or no) f. Do you have any upcoming appointments in the next few days, or restrictions to your schedule? No We would come to see you in 24-48* from your discharge today; Are you agreeable to a visit in that time frame? yes (Yes/ No (if no, when would you like to be seen?)) g. Caregiver: Yes - Caregiver name friend Divina ; spoke with patient to confirm yes Please keep our your medications both over the counter and prescribed out for the home care to review, your hospital discharge instructions and write down any questions you might have. In order to maintain a safe environment for our caregivers, [facility] requires anyanimals or weapons present in the home be located in a secured location. Our clinicians will call you the night before or the morning of the appointment. Their # may come up restricted but they'll leave a VM for you. In case you have any questions or concerns in the meantime, our # is [phone], option 1 Thank you for your time and have a great day. - Patient states No travel or COVID contact and has all DME already LES Kevin documented in this encounterTrinity [facility]09-09-2022 Miscellaneous Notes* Telephone Encounter - Candace Villagomez LPN - 10/24/2021 3:46 PM EDT Please review. This says there is an incomplete note by pcp. Can you complete to close? * Telephone Encounter - Donna Cates RN - 10/23/2021 3:17 PM EDT See other TE 10/22/21. Donna Cates RN * Telephone Encounter - Kailey Diamond Ma - 10/22/2021 3:20 PM EDT Patient states not seen FOOD EQUIPMENT SERVICE TECHNICIAN in several years. * Telephone Encounter - Modesta Daley MD - 10/22/2021 3:00 PM EDT Please call patient and ask her if she sees a obstetrician/gynecologist and who is it.? Regards, Modesta Daley MD * Telephone Encounter - Candace Villagomez LPN - 10/22/2021 1:20 PM EDT Radiology calling from main regarding pts CT completed today. They are asking pcp call Dr. Yair Francis first try him at [phone]. If he doesn't answer you canleave a message. Or [phone] per Rachael documented in this encounterTrinity [facility]09-09-2022 Miscellaneous Notes* Telephone Encounter - Josee Porter LPN - 10/24/2021 11:04 AM EDT Patient has been identified by name and date of : Yes Patient phones for refill(s): Requested Prescriptions Pending Prescriptions Disp Refills fexofenadine (SEFERINO) 180 mg tablet [Pharmacy Med Name: Fexofenadine HCl 180MG TABS] 28 tablet 3 Sig: TAKE 1 TABLET BY MOUTH DAILY Date of last office visit in primary care: 08/11/2021 Last 2 Encounter Wt Readings: Date: Wt: 10/13/2021 106.1 kg (234 lb) 09/15/2021 108 kg (238 lb) Previous labs/tests for medication: Not applicable Please advise. Thank you. Josee Porter LPN documented in this encounterTrinity Health [facility]08-31-2022 Miscellaneous Notes* Telephone Encounter - Lupe Howell LPN - 10/15/2021 11:27 AM EDT Received office visit 08/21/21 from [facility]. Copy made for Selena Gibbs CNP and original sent to brim welt sewing machine operator to scan. Lupe Howell LPN * Telephone Encounter - Lupe Howell LPN - 10/15/2021 10:57 AM EDT Called [facility] medical records and spoke with Gudelia. She will fax patients last office visit from 08/21/21. Lupe Howell LPN * Telephone Encounter - Lupe Howell LPN - 10/13/2021 3:41 PM EDT Called and left message for Gudelia at [facility] in medical records requesting patients last office visit and any neuro testing recently. Fax number and call back number given. Lupe Howell LPN documented in this encounterTrinity Health [facility]08-30-2022 Miscellaneous Notes* Telephone Encounter - LES Garrett - 10/14/2021 12:23 PM EDT TOTAL JOINT COMPLETE CARE PROGRAM PRE-OPERATIVE TEACHING Service Date: 10/16/2021 Service Time: 10:29 AM Date of : 1955 Gender: female Date of Surgery: 10/29/21 Procedure: Left Total Knee Replacement Complete Care Program was discussed with the patient: Ambulatory Technologist Identification: Patient identified a neonatal intensive care nurse to help when discharged to home: Friend Divina Hodge Home Environment: Home Layout: Apartment, Entry Steps: 0, Bedroom Location: 1st floor, Bathroom Location: 1st floor, and tub shower. Pt owns walker, cane, raised toilet seat and grab bars in shower. Discussed with patient importance of attending joint education class and provided date and times ofclass: YES paper copy. Patient received Joint Education Binder: Yes Patient plans discharge home with [facility]. SIGNATURE: LES Garrett PATIENT NAME: Melanie Bird DATE: October 14, 2021 TIME: 12:23 PM documented in this encounterTrinity Health [facility]08-29-2022 History and physical note * Selena Gibbs 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 - 10/13/2021 9:23 AM EDT HISTORY AND PHYSICAL EXAMINATION SERVICE DATE: 10/13/2021 SERVICE TIME: 9:23 AM PRIMARY CARE PHYSICIAN: Modesta Daley MD REASON FOR VISIT: Melanie Bird is a 66 year old female who is scheduled for Procedure(s): ROBOTIC ASSISTED TOTAL KNEE ARTHROPLASTY (Left) at the request of Dr. Viet Johnson for consultation. My final recommendation will be communicated back to the requesting physician by way of shared medical record or letter. Subjective The patient has the following: ACTIVE PROBLEM LIST Diabetes Mellitus Type 2 (Hcc) Ptsd (Post-Traumatic Stress Disorder) Rls (Restless Legs Syndrome) Low Oxygen Saturation Tardive Dyskinesia Hyperlipidemia With Target Ldl Less Than 70 Ariana (Obstructive Sleep Apnea) Vitamin D Deficiency Ibs (Irritable Bowel Syndrome) Respiratory Abnormality, Unspecified Hypertonicity of Bladder Cataracts, Bilateral Pedal Edema Benign Paroxysmal Positional Vertigo Plantar Fasciitis, Right Congenital Pes Cavus Primary Osteoarthritis of Left Knee Chronic Pain of Left Knee Obesity, Class III, BMI >= 40 (morbid obesity) ([facility]) E66.01 Incontinence of Feces Wound Disruption Vertigo History of Implantation of Artificial Sphincter Grief Reaction Wound of Gluteal Cleft Parkinson's Disease ([facility]) S/P Gastric Sleeve Procedure Gerd (Gastroesophageal Reflux Disease) Swelling COVID-19 Immunization Status COVID-19 VACCINE (Series Information) Completed 07/03/2021 Imm Admin: COVID-19 vaccine, full dose (MODERNA) 12/19/2020 Imm Admin: COVID-19 vaccine, full dose (MODERNA) 05/30/2020 Imm Admin: COVID-19 vaccine, full dose (MODERNA) Only the first 3 history entries have been loaded, but more history exists. CHIEF COMPLAINT: Pre-op exam HPI: AW is a 66 yo seen for PAC due to scheduled above surgery because chronic pain left knee. 09/15/2021 Dr. Viet Johnson Melanie Bird is a 66 year old patient here for evaluation and management of left knee pain. Melanie Bird has had progressive problems with the knee(s) most of the day over the past 5 year(s) interfering with activities which include participating in family activities, enjoying hobbies, walking,getting in and out of a car and climbing stairs. The problem began limiting activities 3+ years ago. Currently the pain in the joint is rated at 6 out of 10 with minimal activity. The pain is chronic and is located along the inside aspect and in the back. The pain is described as aching and sharp. Relieving factors include rest. There is no specific incident that brought about this pain. Melanie Bird has no additional complaints. FUNCTIONAL STATUS: Climb a flight of stairs or walk up a hill (5.50 METs) Total Joint Arthroplasty: Risk Calculator Melanie Bird has a 20.93% chance of NOT returning home at discharge for a Primary total Knee replacement. Melanie's estimated Length of Stay is 2 days. Melanie's 30 day chance of readmission is 3.51%. Readmission Probability 3.51 % (within 30 days following surgery) Estimated LOS 2 days Discharge Disposition Probability D/C to Home 79.07 % D/C to SNF 20.93 % These calculations are based on the following factors: - 66 years of age - sex is not male - BMI of 40.85 kg/m2 - NarxCare score of 310 - 0 hospitalizations in the last 12 months - no history of heart disease - history of diabetes - no history of COPD - no history of anemia - preoperative ambulation: impaired community distances - 0 step(s) to enter home - bed location is on the first floor - bath location is on the first floor - caregiver is inconsistent - home is not more than 150 miles away - PROMIS-10 Mental Health T score 41-49 - Marital status: single PREVIOUS TREATMENTS: Attempted Weight Loss Medical Treatments: Steroid Injections Left Knee, Viscosupplementation Left Knee REVIEW OF SYSTEMS: PAIN ASSESSMENT: See HPI. MUSCULOSKELETAL: See HPI. Risk Factors for Total Joint Arthroplasty (TJA) Obesity High Risk High: BMI > 40 Moderate: BMI 30-40 Normal: BMI < 30 Diabetes Moderate Risk High: A1C > 8 Moderate: A1C 7-8 Normal: A1C < 7 Smoking normal High: Current smoker Normal: Non smoker Anemia normal High: Hgb < 11.5 (women) N/A: Hgb >= 11.5 (women) Nutritional Status normal High: Alb<3.4, or prealb<15, or serum transferrin<200, or total lymphocyte count<1500 Normal: normal labs COPD normal High: dx of COPD Normal: no dx of COPD MRSA normal High: dx of MRSA or positive lab test Normal: no MRSA CKD normal High: eGFR<60 Moderate: eGFR 60-89 Normal: eGFR>90 Hx of DVT / PE normal High: dx of DVT / PE Normal: no dx of DVT / PE Narcotics Use High Risk High:NarxCare >=300 Moderate: 100-299 Normal: 0-99 ARIANA High Risk High: dx of ARIANA N/A: no dx of ARIANA Coagulation normal High:PT Sec>13, or PT INR>1.3, or APTT>32.4, or Plt ct<150k Moderate: on anticoag but none of the above Normal: none Obesity: Weight management and obesity medicine (bariatric) program recommended BMI Readings from Last 3 Encounters: 09/15/21 : 40.85 kg/m 08/11/21 : 42.07 kg/m 06/04/21 : 47.03 kg/m Diabetes: Consult to the Endocrinology and Metabolic [place]) recommended prior to surgery. Hemoglobin A1C (%) Date Value 07/30/2021 7.0 11/15/2020 7.0 09/02/2020 7.2 NarxCare score NARX Narcotics: 310 (09/15/2021 8:29 AM) Obstructive Sleep Apnea (ARIANA) Other Risk Factors None REVIEW OF SYSTEMS: General: No weight loss, malaise or fevers. Neurological: +TD, on rx, following Dr. White at [facility] in [place] Negative for: cerebral palsy, headaches, hemiplegia, multiple sclerosis, Parkinson's disease, seizures, TIA and strokes. Respiratory: Positive for: home oxygen, obstructive sleep apnea and CPAP/BiPAP compliant. Patient is on 2L at night with CPAP liter(s) of home O2. Negative for: asthma, COPD, pneumonia within 6 weeks, tobacco use and URI < 2 weeks. Cardiovascular: Positive for: hyperlipidemia (on rx) Negative for: anticoagulation therapy, arrhythmia, atrial fibrillation, CAD, chest pain, CHF, congenital heart defect, DVT/PE, hypertension, recent CT, murmur/valvular heart disease, open heart surgery and valve surgery. GI: +s/p gastric sleeve 05/2021 +chronic diarrhea, s/p aritificial spinchter s/p removal, pt states taking clonidine to aid with this Positive for: GERD (on rx) Negative for: abdominal pain, dysphagia, diverticulitis, hepatitis, irritable bowel syndrome, inflammatory bowel disease, liver disease, nausea, pancreatitis, vomiting and ETOH >2 drinks/day. : Positive for: urinary incontinence (SHASTA). 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 Endocrine: Positive for: diabetes mellitus. Patient's diabetes mellitus is controlled by insulin and oral agents. Negative for: hypothyroidism. Hematology: No history of bleeding or clotting disorder. Patient is not taking anti-coagulation or platelet medications. No history of hematological symptoms or problems. Oncology: No history of CA metastasis, chemo within 30 days, or radiotherapy within 90 days. No history of oncological symptoms or problems. Psych: Positive for: depression (on rx). Musculoskeletal: See HPI. Positive for: swelling (on rxc). Skin: Negative for lesions, rash and itching. PAST MEDICAL HISTORY Diagnosis Date Depression Diabetes mellitus type 2, uncontrolled High cholesterol History of colon polyps History of gallstones IBS (irritable bowel syndrome) Obesity 04/25/2013 BMI 48.43 ARIANA (obstructive sleep apnea) 03/06/2013 Parkinson disease (HCC) PAST SURGICAL HISTORY Procedure Laterality Date ANAL SPHINCTEROPLASTY SPHINCTEROPLASTY ANAL W/ IMPLANT ARTIFICIAL SPHINCTER ADULT BARIATRIC SURGERY HX 05/28/2021 CATARACT EXTRACTION HX Bilateral 08/2012 COLONOSCOPY GEN ANES 04/2019 INCISE FINGER TENDON SHEATH 12/20/2012 Left 3rd trigger finger release PAST SURGICAL HISTORY OF 06/2012 Interstim PAST SURGICAL HISTORY OF Right trigger thumb REMOVAL GALLBLADDER 2001 FAMILY HISTORY Problem Relation Age of Onset Diabetes Father Heart Father Diabetes Mother Heart Mother Colon Cancer Sister Social History Tobacco Use Smoking status: Former Packs/day: 0.10 Years: 3.00 Pack years: 0.30 Types: Cigarettes Quit date: 04/25/1988 Years since quittin.4 Smokeless tobacco: Never Tobacco comments: No smoking in childhood home. Roomate of last 10 years smoked while living with patient. Vaping Use Vaping Use: Never used Substance Use Topics Alcohol use: No Drug use: No Prior to Admission medications as of 10/13/21 0905 Medication Sig Last Dose Taking metFORMIN ER (GLUCOPHAGE XR) 500 mg 24 hr tablet TAKE 2 TABLETS DAILY WITH MEALS Taking Yes insulin glargine U-300 conc (TOUJEO SOLOSTAR U-300 INSULIN) 300 unit/mL (1.5 mL) Inject 14 Units subcutaneously every morning. Taking Yes cloNIDine HCl (CATAPRES) 0.1 mg tablet Take 1 tablet by mouth once daily. Taking Yes gabapentin (NEURONTIN) 600 mg tablet Take 3 tablets by mouth daily at bedtime for 180 days. Taking Yes TRULICITY 4.5 mg/0.5 mL pen injector INJECT 4.5MG SUBCUTANEOUSLY ONCE A WEEK Taking Yes VITAMIN C 500 mg tablet TAKE 1 TABLET BY MOUTH DAILY Taking Yes zolpidem (AMBIEN) 5 mg tablet Take 1 tablet by mouth at bedtime as needed for sedation for up to 90days. TAKE 1 TABLET BY MOUTH AT BEDTIME NEEDED FOR SEDATION Do not start before September 09, 2021. Taking Yes gabapentin (NEURONTIN) 300 mg capsule TAKE 3 CAPSULES BY MOUTH DAILY WITH LUNCH Taking Yes furosemide (LASIX) 20 mg tablet Take 1 tablet by mouth once daily. Taking Yes fexofenadine (SEFERINO) 180 mg tablet Take 1 tablet by mouth once daily. Taking Yes acyclovir (ZOVIRAX) 400 mg tablet Take 1 tablet by mouth twice daily. Taking Yes rOPINIRole (REQUIP) 0.5 mg tablet TAKE 1 TABLET BY MOUTH TWICE A DAY (NOON AND BEDTIME) Taking Yes sertraline (ZOLOFT) 50 mg tablet Take 1 tablet by mouth once daily. Taking Yes omeprazole (PRILOSEC) 20 mg capsule Take 20 mg by mouth once daily. Taking Yes flash glucose sensor (FREESTYLE IZABELLA 2 SENSOR) kit Use to monitor blood sugars 4 times daily Taking Yes magnesium oxide (MAG-OX) 400 mg (241.3 mg magnesium) tablet Take 2 tablets by mouth once daily. Taking Yes atorvastatin (LIPITOR) 20 mg tablet Take 1 tablet by mouth once daily. Taking Yes AUSTEDO 6 mg tab Take 6 mg by mouth twice daily. Taking Yes Lancets lancets Test Four times a day. Insulin Dep? Yes E11.9 DM 2 Taking Yes blood sugar diagnostic (BLOOD GLUCOSE TEST) test strip Test Four times a day. Insulin Dep? Yes E11.9 DM 2 Taking Yes calcium carbonate 600 mg-cholecalciferol 200 units (CALCARB 600 WITH VITAMIN D) 600 mg(1,500mg) -200 unit tab Take 1 tablet by mouth twice daily. Taking Yes wheat dextrin (BENEFIBER SUGAR FREE, DEXTRIN,) 3 gram/4 gram powd 1/2 tablespoon per day x2 weeks. Then increase by 1/2 tablespoon every 2 weeks until you are taking 3 tablespoons per day in divided doses. Taking Yes polyethylene glycol 3350 (MIRALAX, GLYCOLAX) 17 gram/dose powder Take 17 g by mouth twice daily. Drink a mix of 1 scoop in 8oz of water/beverage once daily as needed for constipation. Taking Yes docusate sodium (COLACE) 100 mg capsule Take 1 capsule by mouth twice daily as needed for Constipation. Taking Yes COMPOUNDED PRESCRIPTION PORTABLE OXYGEN TANKS FOR USE IN BACK PACK USES 3 Lpm WHEN ON PORTABLE TANKto use with exertion DX R79.81 Taking Yes COMPOUNDED PRESCRIPTION EMERGENCY BACKUP OXYGEN TANK FOR WHEN PATIENT LOSES ELECTRICITY DX R79.81 Taking Yes CPAP Initiate AutoPAP @ 10/20 cm of water with EPR of 3 , humidification. Mask (per patient preference) optional chin strap (if indicated) , filters, tubing, humidifier and lifetime supplies. Dx. ARIANA 327.23 Taking Yes COMPOUNDED PRESCRIPTION Oxygen supplies dx: R79.81 R06.02 Taking Yes COMPOUNDED PRESCRIPTION CPAP supplies Dx: G47.33 Taking Yes COMPOUNDED PRESCRIPTION Home Oxygen, 2 litres with cpap machine Taking Yes blood sugar diagnostic (ONETOUCH ULTRA TEST) test strip Test blood sugar(s) 4 times daily. Dx: Type2 DM - Uncontrolled E11.65 Insulin: Yes Taking Yes meclizine (ANTIVERT) 25 mg tab Take 1 tablet by mouth three times daily as needed (dizziness). Taking Yes insulin needles, DISPOSABLE, (ULTICARE PEN NEEDLE) 31 gauge x 5/16 ndle UAD to inject insulins 5 times daily. Taking Yes Lancets (ACCU-CHEK FASTCLIX) lancets With [employer] Laboratories[employer] fastclix lancing device. Check sugars 4x/day Dx:e11.65 Insulin: Yes Taking Yes Cholecalciferol, Vitamin D3, (VITAMIN D-3) 50 mcg (2,000 unit) cap Take 1 capsule by mouth once daily. aspirin, enteric coated (ASPIRIN, ENTERIC COATED) 81 mg EC tablet Take 1 tablet by mouth once daily. Patient not taking: No sig reported Not Taking HYDROcodone-acetaminophen (NORCO) 5-325 mg per tablet Take 1 tablet by mouth at bedtime as needed for pain. Patient not taking: No sig reported Not Taking meloxicam (MOBIC) 15 mg tablet Take 1 tablet by mouth once daily. Patient not taking: No sig reported Not Taking No medication comments found. ALLERGIES Allergen Reactions Seroquel [Quetiapin* Mental Status Change Victoza [Liraglutid* GI Upset Objective PHYSICAL EXAM: General: alert and oriented (x3), healthy appearance and morbidly obese. Pertinent negatives noted - not distressed. Skin: normal color, no rash or lesions. HEENT: EOM intact and pupils equal round. Pertinent negatives noted - no carotid bruit. Cardiovascular: regular rate and rhythm, normal S1 and S2, no rub, murmurs, or gallop. Respiratory: normal breath sounds, no wheezes or crackles. No chest wall deformity or tenderness. Abdomen: soft. Pertinent negatives noted - not tender. Extremities: no deformity, no edema or tenderness, no joint swelling or clubbing. Neurological: normal cognition and motor skills. Gait normal. No weakness or sensory deficit. PAIN ASSESSMENT: Pain Pain Level: 5 Pain Location: Knee-Left Description: Sharp Duration Amount of Time: 7 Duration Units: Years Frequency: Continuous Intervention/Comfort measure: Medication VITALS: BP 96/52 Pulse 79 Temp (Src) 96.9 (Temporal) Resp 18 Ht 5' 4 (1.63m) Wt 234 lb (106.1kg) SpO2 92% LMP 04/10/2012 BMI 40.15 kg/(m^2). Diagnostic tests reviewed for today's visit: Lab Value Units Date High Low HB 14.9 g/dL 08/22/2021 15.5 11.5 HCT 47.5 % 08/22/2021 46.0 36.0 WBC 6.70 k/uL 08/22/2021 11.00 3.70 PLT 219 k/uL 08/22/2021 400 150 NA 141 mmol/L 08/22/2021 144 136 K 3.9 mmol/L 08/22/2021 5.1 3.7 GLUC 175 mg/dL 08/22/2021 99 74 BUN 9 mg/dL 08/22/2021 21 7 CREAT 0.58 mg/dL 08/22/2021 0.96 0.58 PTSEC No results within date range. INR No results within date range. APTT No results within date range. ALT 21 U/L 08/22/2021 38 7 AST 22 U/L 08/22/2021 35 13 TBILI 0.7 mg/dL 08/22/2021 1.3 0.2 TSH No results within date range. Lab Value Units Date High Low HCGQT No results within date range. UHCG No results within date range. HCG, BODY* No results within date range. Lab Value Units Date High Low ABORHD No results within date range. ABSCREEN No results within date range. Hemoglobin A1C (%) Date Value 07/30/2021 7.0 11/15/2020 7.0 09/02/2020 7.2 06/03/2020 8.2 04/15/2020 8.7 12/18/2019 9.1 No results found for this or any previous visit (from the past 8760 hour(s)). No results found for this or any previous visit (from the past 70415 hour(s)). 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 S/P gastric sleeve procedure Assessment: hx GERD (gastroesophageal reflux disease) Assessment: on rx [place] Activity Status Index: METS: Climb a flight of stairs or walk up a hill (5.50 METs) DASI Score: 5.5 Patient denies any chest pain or undue shortness of breath with the above physical activity. Clinical Frailty Scale: 3. Well, with treated comorbid disease STOP-Bang Score: Snores loudly Has been observed to stop breathing or choking/gasping during sleep BMI greater than 35 kg/m^2 Patient over 50 years old Has a large neck Denies feeling tired, fatigued, or sleepy during the daytime Denies having high blood pressure Non-male patient STOP-Bang Score: 5 [id number] Score: Age: <65 Sex: female CHF history: No Hypertension history: No Stroke/TIA/thromboembolism history: No Vascular disease history: No Diabetes history: Yes [id number] Score: 2 ARISCAT Score: Age: 51-80 Preoperative SpO2: 91-95% Respiratory infection in the last month: No Preoperative anemia: No Surgical incision: peripheral Duration of surgery: <2 hrs Emergency procedure: No ARISCAT Score: 11 ASA Class: 3 ANESTHESIA FINDINGS: Intubation History: No history of difficult intubation Significant Anesthesia Considerations: none Airway History: No history of difficult airway I - PHYSICAL EVALUATION AIRWAYTracheostomy tube not present Mallampati: III. TM distance: >3 FB. Neck ROM: full ROM without neurological symptoms. Mouth opening: adequate. Short neck: no. Thick neck: yes DENTAL Dental findings: teeth intact. II - ANESTHESIA PLAN ASA Score: 3 Anesthetic Plan: other Anesthetic plan additional comments: *PACC/TCI - anesthesia choice. Informed Consent Anesthetic risks, benefits, alternatives, personnel and consent discussed: yes. Patient / Responsible Alliance Party agrees to proceed: yes Patient / Surrogate agrees to blood products: Yes Prepared for Surgery: optimally prepared for surgery. labs CONSULTS: Patient does not require consults for optimization at this time Planned Anesthetic: other anesthesia choice The Following Tests/Procedures Have Been Initiated: Orders Placed This Encounter Type and Screen, 30 day Standing Status: Future Number of Occurrences: 1 Standing Expiration Date: 12/13/2021 Order Specific Question: [facility] Planned Surgery or Procedure: Answer: Pedraza mupirocin (BACTROBAN) 2 % ointment Sig: Apply 0.5 inch with cotton swab (Q-tip) to each nostril in the morning and evening for 5 days prior to and including day of surgery. Dispense: 22 g Refill: 0 Instructions Given to Patient: Instructions located in the after visit summary. Patient given verbal and written preop instructions and voices comprehension and compliance. SIGNATURE: Selena Gibbs APRN.CNP PATIENT NAME: Melanie Bird DATE: October 13, 2021 TIME: 9:23 AM PAGER/CONTACT #: documented in this encounterTr[facility]-29-2022 Instructions* Patient Instructions* Selena Gibbs 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 - 10/13/2021 9:20 AM EDT PATIENT PREOPERATIVE INSTRUCTIONS Viet Johnson MD has scheduled you for your procedure at this surgery center: [facility]: [phone] -- [address] [address] [facility] [address]. Please read below carefully for your personalized instructions. Dietary Restrictions: - No solid food after midnight. - You may have 12 ounces of clear liquids (water, clear juices such as apple juice or gatorade, carbonated beverages, clear tea, black coffee, jello) until 2 hours before scheduled arrival at facility. Medications: Unless instructed differently below, stay on all of your medications until your surgery. Approved medications to take the morning of surgery with a sip of water: Acyclovir, Atorvastatin, Seferino, Clonidine, Gabapentin, Omeprazole, Ropinirole, Sertraline, [place] DO NOT TAKE YOUR Lasix THE NIGHT BEFORE OR MORNING OF SURGERY - No diabetic medication the morning of surgery. - Accucheck day of surgery. - Take half dose of long acting insulin (Lantus, NPH) the day of surgery. If you start any new medications after today's visit, please contact the surgeon's office. Blood Thinning Medications: - Stop NSAIDS (Ibuprofen, Advil, Aleve, Motrin, Celebrex, Mobic, etc.) 7 days before surgery, as directed by your surgeon. - Stop Aspirin 7 days before surgery, as directed by your surgeon. - Stop Vitamin E, ALL multi-vitamins, herbals and dietary supplements 7 days before surgery. - You may take Tylenol (Acetaminophen) or any of your pain medications that do not contain aspirin or NSAIDS as needed. Important Reminders: - If you use CPAP/BIPAP, bring the machine with you to the surgery center. - If you are prescribed inhalers for breathing, continue using them. - Candy, mints, and tobacco products are NOT permitted the morning of surgery. - Hearing aids, dentures and glasses may be worn the morning of surgery. - NO jewelry, body piercings, makeup, hairpins or contacts are to be worn the day of surgery. If you develop symptoms such as a fever, cold, or flu, or have other changes to your health within TWO DAYS of scheduled surgery or the morning of surgery, please contact the surgery center above. Personal Belongings: -Please have photo ID and insurance cards. -If you do not have a copy of advance directives on file with us, please bring a copy with you on the day of surgery. - Leave ALL valuables and money at home or with family members. For Outpatient Procedures: - YOU MUST HAVE A RESPONSIBLE PAINTER SPRAY TAKE YOU HOME. A WORKERS COMPENSATION PARALEGAL OR IMAGING ENGINEER CANNOT BE MADE A RESPONSIBLE PAINTER SPRAY. - We recommend that a responsible person stays with you overnight to take care of you. - You cannot stay in a hotel alone after outpatient surgery. You will not be permitted to have yoursurgery, if you do not have someone to take care of you. Arrival Time for Surgery: - The Surgery Center or hospital where you are having surgery will call the afternoon before surgery (or Wednesday for Wednesday surgery) with a scheduled arrival time. - If you have not heard by 4 pm, please contact the surgery center above. Please be aware that emergency situations arise, which may delay or change your surgical time. If this happens, we will notify you as soon as possible and regret any inconvenience. If you already have an Advance Directive, please fax a copy to [phone] or email to for it to be added to your chart. If you do not have an Advance Directive, you can find the appropriate form and more information at [email or web address]. We recommend that youcomplete the Advance Directive form found on the website and bring it with you the day of your surgery. It can be witnessed and scanned into your chart that day. Selena Gibbs APRN.SABINE documented in this encounterTr[facility]08-22-2022 History of Present illness Narrative* Donis Harris RPh - 10/06/2021 2:30 PM EDT Images from the original note were not included. Primary Care Pharmacy Visit REASON FOR CONSULT: DM GOALS: A1c < 7% CONSULTING PROVIDER: Dr. Modesta Daley Date of Consult: 06/09/19 Melanie Bird is a 66 year old female presenting for follow up visit in person. Patient consents to pharmacy collaborative practice agreement. Last seen by PCP, Dr. Modesta Daley MD on 08/11/21. At last PharmD visit on 09/10/21, discussed trying lower dose metformin due to GI upset. INTERIM HISTORY: Patient reports she has decreased metformin tablets to 2 tabs daily Feels frequency of loose stools is unchanged Saw Dr. Villagran for the continued diarrhea, he has prescribed a 14 day trial of clonidine to see ifit helps with GI symptoms Having knee surgery October 29 Notes she has seen trend up slightly in BG readings Current DM Medications: Metformin 500 mg - 2 tabs daily Dulaglutide (Trulicity) 4.5 mg weekly on Sundays Insulin glargine U300 (Toujeo) - Taking 12 units daily Preventative Medications: On REJI/ARB: No On Statin: Yes GLYCEMIC CONTROL: CGM Report Summary of CGM Findings: 1- CGM recording is adequate for interpretation. 2- Average glucose is 178 mg/dL. 3- Total frequency of hypoglycemia: none 4- Nocturnal hypoglycemia was not noted. 5- Hyperglycemic episodes: 42% 6- Time in target range (70-180 mg/dL): 58% ROS: Patient denies CP, SOB, HATCH, blurred vision, dizziness or lightheadedness Patient denies nausea, vomiting, diarrhea, abdominal pain Patient denies symptoms of hypoglycemia (sweating, anxiety, palpitations, hunger, and tremor) Patient denies symptoms of hyperglycemia (polyuria, polydipsia, polyphagia) Patient denies potential medication adverse effects MEDICATIONS: Pill bottles are not present. Adherence: reports missed doses. Pharmacy: [place], [place]; [facility], [place] Rx coverage: Medicare, Medicaid Affordability: none Diabetes supplies: One Touch ACTIVE PROBLEM LIST Diabetes Mellitus Type 2 (Hcc) Ptsd (Post-Traumatic Stress Disorder) Rls (Restless Legs Syndrome) Low Oxygen Saturation Tardive Dyskinesia Hyperlipidemia With Target Ldl Less Than 70 Ariana (Obstructive Sleep Apnea) Vitamin D Deficiency Ibs (Irritable Bowel Syndrome) Respiratory Abnormality, Unspecified Hypertonicity of Bladder Cataracts, Bilateral Pedal Edema Benign Paroxysmal Positional Vertigo Plantar Fasciitis, Right Congenital Pes Cavus Primary Osteoarthritis of Left Knee Chronic Pain of Left Knee Obesity, Class III, BMI >= 40 (morbid obesity) ([facility]) E66.01 Incontinence of Feces Wound Disruption Vertigo History of Implantation of Artificial Sphincter Grief Reaction Wound of Gluteal Cleft Parkinson's Disease (Hcc) PAST MEDICAL HISTORY Diagnosis Date Depression Diabetes mellitus type 2, uncontrolled High cholesterol History of colon polyps History of gallstones IBS (irritable bowel syndrome) Obesity 04/25/2013 BMI 48.43 ARIANA (obstructive sleep apnea) 03/06/2013 Parkinson disease (HCC) ALLERGIES Allergen Reactions Seroquel [Quetiapin* Mental Status Change Victoza [Liraglutid* GI Upset Current Outpatient Medications Medication Sig gabapentin (NEURONTIN) 600 mg tablet Take 3 tablets by mouth daily at bedtime for 180 days. TRULICITY 4.5 mg/0.5 mL pen injector INJECT 4.5MG SUBCUTANEOUSLY ONCE A WEEK VITAMIN C 500 mg tablet TAKE 1 TABLET BY MOUTH DAILY insulin glargine U-300 conc (TOUJEO SOLOSTAR U-300 INSULIN) 300 unit/mL (1.5 mL) Inject 12 Units subcutaneously every morning. zolpidem (AMBIEN) 5 mg tablet Take 1 tablet by mouth at bedtime as needed for sedation for up to 90days. TAKE 1 TABLET BY MOUTH AT BEDTIME NEEDED FOR SEDATION Do not start before September 09, 2021. metFORMIN ER (GLUCOPHAGE XR) 500 mg 24 hr tablet TAKE 3 TABLETS DAILY WITH MEALS gabapentin (NEURONTIN) 300 mg capsule TAKE 3 CAPSULES BY MOUTH DAILY WITH LUNCH furosemide (LASIX) 20 mg tablet Take 1 tablet by mouth once daily. fexofenadine (SEFERINO) 180 mg tablet Take 1 tablet by mouth once daily. acyclovir (ZOVIRAX) 400 mg tablet Take 1 tablet by mouth twice daily. rOPINIRole (REQUIP) 0.5 mg tablet TAKE 1 TABLET BY MOUTH TWICE A DAY (NOON AND BEDTIME) Cholecalciferol, Vitamin D3, (VITAMIN D-3) 50 mcg (2,000 unit) cap Take 1 capsule by mouth once daily. sertraline (ZOLOFT) 50 mg tablet Take 1 tablet by mouth once daily. omeprazole (PRILOSEC) 20 mg capsule Take 20 mg by mouth once daily. flash glucose sensor (FREESTYLE IZABELLA 2 SENSOR) kit Use to monitor blood sugars 4 times daily aspirin, enteric coated (ASPIRIN, ENTERIC COATED) 81 mg EC tablet Take 1 tablet by mouth once daily. (Patient not taking: Reported on 05/08/2021 ) magnesium oxide (MAG-OX) 400 mg (241.3 mg magnesium) tablet Take 2 tablets by mouth once daily. atorvastatin (LIPITOR) 20 mg tablet Take 1 tablet by mouth once daily. AUSTEDO 6 mg tab Take 6 mg by mouth twice daily. HYDROcodone-acetaminophen (NORCO) 5-325 mg per tablet Take 1 tablet by mouth at bedtime as needed for pain. (Patient not taking: Reported on 08/11/2021) Lancets lancets Test Four times a day. Insulin Dep? Yes E11.9 DM 2 blood sugar diagnostic (BLOOD GLUCOSE TEST) test strip Test Four times a day. Insulin Dep? Yes E11.9 DM 2 calcium carbonate 600 mg-cholecalciferol 200 units (CALCARB 600 WITH VITAMIN D) 600 mg(1,500mg) -200 unit tab Take 1 tablet by mouth twice daily. meloxicam (MOBIC) 15 mg tablet Take 1 tablet by mouth once daily. (Patient not taking: Reported on 05/08/2021 ) wheat dextrin (BENEFIBER SUGAR FREE, DEXTRIN,) 3 gram/4 gram powd 1/2 tablespoon per day x2 weeks. Then increase by 1/2 tablespoon every 2 weeks until you are taking 3 tablespoons per day in divided doses. polyethylene glycol 3350 (MIRALAX, GLYCOLAX) 17 gram/dose powder Take 17 g by mouth twice daily. Drink a mix of 1 scoop in 8oz of water/beverage once daily as needed for constipation. docusate sodium (COLACE) 100 mg capsule Take 1 capsule by mouth twice daily as needed for Constipation. COMPOUNDED PRESCRIPTION PORTABLE OXYGEN TANKS FOR USE IN BACK PACK USES 3 Lpm WHEN ON PORTABLE TANKto use with exertion DX R79.81 COMPOUNDED PRESCRIPTION EMERGENCY BACKUP OXYGEN TANK FOR WHEN PATIENT LOSES ELECTRICITY DX R79.81 CPAP Initiate AutoPAP @ 10/20 cm of water with EPR of 3 , humidification. Mask (per patient preference) optional chin strap (if indicated) , filters, tubing, humidifier and lifetime supplies. Dx. ARIANA 327.23 COMPOUNDED PRESCRIPTION Oxygen supplies dx: R79.81 R06.02 COMPOUNDED PRESCRIPTION CPAP supplies Dx: G47.33 COMPOUNDED PRESCRIPTION Home Oxygen, 2 litres with cpap machine blood sugar diagnostic (ONETOUCH ULTRA TEST) test strip Test blood sugar(s) 4 times daily. Dx: Type2 DM - Uncontrolled E11.65 Insulin: Yes meclizine (ANTIVERT) 25 mg tab Take 1 tablet by mouth three times daily as needed (dizziness). insulin needles, DISPOSABLE, (ULTICARE PEN NEEDLE) 31 gauge x 5/16 ndle UAD to inject insulins 5 times daily. Lancets (ACCU-CHEK FASTCLIX) lancets With [employer] fastclix lancing device. Check sugars 4x/day Dx:e11.65 Insulin: Yes No current facility-administered medications for this visit. EXAM: Last 3 Encounter BP Readings: Date: BP: 08/11/2021 110/62 06/04/2021 114/60 05/08/2021 130/76 Wt: 108 kg (238 lb) BMI: 40.85 kg/(m^2) LABS: Lab Results Component Value Date HBA1C 7.0 07/30/2021 HBA1C 7.0 11/15/2020 HBA1C 7.2 09/02/2020 HBA1C 8.2 06/03/2020 CMP: Glucose 175 08/22/2021 BUN 9 08/22/2021 Creatinine, Whole Blood (iSTAT) 0.58 08/22/2021 Sodium 141 08/22/2021 Potassium 3.9 08/22/2021 Chloride 101 08/22/2021 CO2 30 08/22/2021 Protein, Total 6.5 08/22/2021 Albumin 4.0 08/22/2021 Calcium 9.6 08/22/2021 Alkaline Phosphatase 60 08/22/2021 Bilirubin, Total 0.7 08/22/2021 AST 22 08/22/2021 ALT 21 08/22/2021 Serum creatinine: 0.58 mg/dL 08/22/21 0918 Estimated creatinine clearance: 117.6 mL/min eGFR- (no units) Date Value 11/15/2020 >60 EGFR: >60 mL/min/1.73m2 Vitamin B12 Date Value Ref Range Status 08/22/2021 537 232-1,245 pg/mL Final Lab Results Component Value Date CHOL 138 11/15/2020 LDL 72 11/15/2020 HDL 45 11/15/2020 TG 103 11/15/2020 The 10-year ASCVD risk score (Xiang BURK Jr., et al., 2013) is: 6.3% Values used to calculate the score: Age: 66 years Sex: Female Is Non- : No Diabetic: Yes Tobacco smoker: No Systolic Blood Pressure: 110 mmHg Is BP treated: No HDL Cholesterol: 45 mg/dL Total Cholesterol: 138 mg/dL Albumin/Creat Ratio (mg/g) Date Value 07/30/2021 <10 PHARMACOTHERAPY ASSESSMENT/PLAN: 1. Uncontrolled type 2 diabetes mellitus with hyperglycemia (HCC) - ICD9: 250.02, ICD10: E11.65 A1c goal < 7%; almost at goal (last A1c 7.0%); SMBG elevated on current regimen; denies s/sx hypoglycemia; denies s/sx hyperglycemia. Reports continued loose stools, despite recent dose reduction of metformin. Patient is following with GI regarding symptoms and recent med change made by GI, therefore will not adjust metformin at this time. If loose stools do not improve, can consider further re ducing at next follow up. Today, insulin dose was increased for improved BG control. INCREASE Toujeo 14 units once daily CONTINUE Trulicity 4.5 mg weekly, metformin 500 mg 2 times daily before meal - METFORMIN ER 500 MG TABLET,EXTENDED RELEASE 24 HR - TOUJEO SOLOSTAR U-300 INSULIN 300 UNIT/ML (1.5 ML) SUBCUTANEOUS PEN Follow up: Patient is scheduled to see PCP on 12/11/21. Patient to follow up with PharmD on 11/05/21. Patient verbalized understanding of instructions. Donis Harris PharmD, BCACP Primary Care Clinical Pharmacist [facility] The majority of the pharmacy visit (> 50%) was spent counseling and/or coordinating care for thepatient. [Face to Face] time was 28 minutes. documented in this encounterTr[facility]-22-2022 Instructions* Patient Instructions* Donis Harris RPh - 10/06/2021 2:30 PM EDT INCREASE Toujeo 14 units once daily CONTINUE Trulicity 4.5 mg weekly, metformin 500 mg 2 times daily before meal documented in this encounterTrinity [facility]08-18-2022 Miscellaneous Notes* Telephone Encounter - Soniya Perez RN - 10/02/2021 2:20 PM EDT Natali reports they have the gabapentin 300 mg - now need the gabapentin 600 mg. Pended. Patient has been identified by name and date of : Yes Pharmacy phones for refill(s): Requested Prescriptions Pending Prescriptions Disp Refills gabapentin (NEURONTIN) 600 mg tablet 90 tablet 1 Sig: Take 3 tablets by mouth daily at bedtime for 180 days. Date of last office visit with pcp: 08-11-21. Next appt: 12-11-21 Last 2 Encounter Wt Readings: Date: Wt: 09/15/2021 108 kg (238 lb) 08/11/2021 111.2 kg (245 lb 1.3 oz) Previous labs/tests for medication: Blood Pressure: BUN (mg/dL) Date Value 08/22/2021 9 11/15/2020 18 Sodium (mmol/L) Date Value 08/22/2021 141 11/15/2020 140 Last 1 Encounter BP Readings: Date: BP: 08/11/2021 110/62 Liver Function: ALT (U/L) Date Value 08/22/2021 21 11/15/2020 17 AST (U/L) Date Value 08/22/2021 22 11/15/2020 18 Please advise. Thank you. Soniya Perez RN documented in this encounterTr[facility]08-01-2022 History of Present illness Narrative* Viet Johnson MD - 09/15/2021 9:08 AM EDT Patient presents with: Left Knee - Knee Pain Viet Johnson MD Department of Orthopaedics Orthopaedics [address] [facility] [address] Dept: [phone] Dept September 15, 2021 CHIEF COMPLAINT: Knee Pain of the Left Knee HPI AMB ROOMING INTAKE FLOWSHEET DATA Risk Screening Do you have concerns about personal safety or safety in the home?: No Pain Pain Level: 6 Pain Location: Knee-Left Description: Sharp Duration Units: Years Frequency: Continuous Intervention/Comfort measure: Medication Pt presents for left knee pain ongoing for years. States pain is behind the knee. Tylenol does not help. Pt states she has weight approx 60 pounds after bariatric surgery in May. ASSESSMENT: M17.11 Primary osteoarthritis of right knee (primary encounter diagnosis) E66.01 Obesity, Class III, BMI >= 40 (morbid obesity) ([facility]) E66.01 CONSULT ORTHOPAEDIC: KNEE PRIMARY CARE PHYSICIAN: Modesta Daley MD REFERRING PROVIDER: Viet Johnson [address] [place], [place] [id number] ASSESSMENT & PLAN Impression: Left Knee Severe Degenerative Osteoarthritis, Primary Melanie Bird has radiograph and physical exam evidence of degenerative joint disease and wishes to pursue surgery. This patient appears to have sufficient symptoms to warrant surgical intervention and is an appropriate candidate for left Primary Total Knee Arthroplasty as evidenced by six months of unsuccessful non-operative treatment as outlined in the HPI below and progressive symptoms. Progressive Symptoms Include: Pain worsened by weight bearing Pain limiting ability to stay fit and healthy Unable to ambulate 2 blocks without significant pain and dysfunction . This patient has the following risk factors: DM Obesity, BMI > 35 We had a lengthy discussion regarding the risk and benefit of surgery, the alternatives, limitations and personnel involved. These included but were not limited to infection, persistent pain, instability, nerve injury, blood clots, and medical complications. We also discussed the pre-operative course, surgery itself and rehabilitation. Roberta-operative blood management and transfusion issues were discussed, and options clearly outlined. The patient has consented to the use of the banked allogenic blood if medically necessary. The patient has elected to schedule surgery at this time or intends to call the office with a surgical date. Shared decision making occurred while obtaining informed consent. The patient will be scheduled for a pre-operative education class at which time they will have their nasal swab completed and will be given CHG cloths along with the verbal and written instructions for their use. Patient has been instructed and has been scheduled or will call to schedule attendence in one of the total joint perioperative classes offered prior to proceeding with TKA. The patient has been ordered: No orders placed today. CONSULTS: Patient does not require consults for optimization at this time. ACTIVE PROBLEM LIST Diabetes Mellitus Type 2 (Hcc) Ptsd (Post-Traumatic Stress Disorder) Rls (Restless Legs Syndrome) Low Oxygen Saturation Tardive Dyskinesia Hyperlipidemia With Target Ldl Less Than 70 Ariana (Obstructive Sleep Apnea) Vitamin D Deficiency Ibs (Irritable Bowel Syndrome) Respiratory Abnormality, Unspecified Hypertonicity of Bladder Cataracts, Bilateral Pedal Edema Benign Paroxysmal Positional Vertigo Plantar Fasciitis, Right Congenital Pes Cavus Primary Osteoarthritis of Left Knee Chronic Pain of Left Knee Obesity, Class III, BMI >= 40 (morbid obesity) ([facility]) E66.01 Incontinence of Feces Wound Disruption Vertigo History of Implantation of Artificial Sphincter Grief Reaction Wound of Gluteal Cleft Parkinson's Disease ([facility]) SUBJECTIVE CHIEF COMPLAINT: Knee Pain HPI: Melanie Bird is a 66 year old patient here for evaluation and management of left knee pain. Melanie Bird has had progressive problems with the knee(s) most of the day over the past 5 year(s) interfering with activities which include participating in family activities, enjoying hobbies, walking,getting in and out of a car and climbing stairs. The problem began limiting activities 3+ years ago. Currently the pain in the joint is rated at 6 out of 10 with minimal activity. The pain is chronic and is located along the inside aspect and in the back. The pain is described as aching and sharp. Relieving factors include rest. There is no specific incident that brought about this pain. Melanie Bird has no additional complaints. FUNCTIONAL STATUS: Climb a flight of stairs or walk up a hill (5.50 METs) Total Joint Arthroplasty: Risk Calculator Melanie Bird has a 20.93% chance of NOT returning home at discharge for a Primary total Knee replacement. Melanie's estimated Length of Stay is 2 days. Melanie's 30 day chance of readmission is 3.51%. Readmission Probability 3.51 % (within 30 days following surgery) Estimated LOS 2 days Discharge Disposition Probability D/C to Home 79.07 % D/C to SNF 20.93 % These calculations are based on the following factors: - 66 years of age - sex is not male - BMI of 40.85 kg/m2 - NarxCare score of 310 - 0 hospitalizations in the last 12 months - no history of heart disease - history of diabetes - no history of COPD - no history of anemia - preoperative ambulation: impaired community distances - 0 step(s) to enter home - bed location is on the first floor - bath location is on the first floor - caregiver is inconsistent - home is not more than 150 miles away - PROMIS-10 Mental Health T score 41-49 - Marital status: single PREVIOUS TREATMENTS: Attempted Weight Loss Medical Treatments: Steroid Injections Left Knee, Viscosupplementation Left Knee REVIEW OF SYSTEMS: PAIN ASSESSMENT: See HPI. MUSCULOSKELETAL: See HPI. Risk Factors for Total Joint Arthroplasty (TJA) Obesity High Risk High: BMI > 40 Moderate: BMI 30-40 Normal: BMI < 30 Diabetes Moderate Risk High: A1C > 8 Moderate: A1C 7-8 Normal: A1C < 7 Smoking normal High: Current smoker Normal: Non smoker Anemia normal High: Hgb < 11.5 (women) N/A: Hgb >= 11.5 (women) Nutritional Status normal High: Alb<3.4, or prealb<15, or serum transferrin<200, or total lymphocyte count<1500 Normal: normal labs COPD normal High: dx of COPD Normal: no dx of COPD MRSA normal High: dx of MRSA or positive lab test Normal: no MRSA CKD normal High: eGFR<60 Moderate: eGFR 60-89 Normal: eGFR>90 Hx of DVT / PE normal High: dx of DVT / PE Normal: no dx of DVT / PE Narcotics Use High Risk High:NarxCare >=300 Moderate: 100-299 Normal: 0-99 ARIANA High Risk High: dx of ARIANA N/A: no dx of ARIANA Coagulation normal High:PT Sec>13, or PT INR>1.3, or APTT>32.4, or Plt ct<150k Moderate: on anticoag but none of the above Normal: none Obesity: Weight management and obesity medicine (bariatric) program recommended BMI Readings from Last 3 Encounters: 09/15/21 : 40.85 kg/m 08/11/21 : 42.07 kg/m 06/04/21 : 47.03 kg/m Diabetes: Consult to the Endocrinology and Metabolic [place]) recommended prior to surgery. Hemoglobin A1C (%) Date Value 07/30/2021 7.0 11/15/2020 7.0 09/02/2020 7.2 NarxCare score NARX Narcotics: 310 (09/15/2021 8:29 AM) Obstructive Sleep Apnea (ARIANA) Other Risk Factors None PAST MEDICAL HISTORY Diagnosis Date Depression Diabetes mellitus type 2, uncontrolled High cholesterol History of colon polyps History of gallstones IBS (irritable bowel syndrome) Obesity 04/25/2013 BMI 48.43 ARIANA (obstructive sleep apnea) 03/06/2013 Parkinson disease (HCC) PAST SURGICAL HISTORY Procedure Laterality Date ANAL SPHINCTEROPLASTY SPHINCTEROPLASTY ANAL W/ IMPLANT ARTIFICIAL SPHINCTER ADULT BARIATRIC SURGERY HX 05/28/2021 CATARACT EXTRACTION HX Bilateral 08/2012 COLONOSCOPY GEN ANES 04/2019 INCISE FINGER TENDON SHEATH 12/20/2012 Left 3rd trigger finger release PAST SURGICAL HISTORY OF 06/2012 Interstim PAST SURGICAL HISTORY OF Right trigger thumb REMOVAL GALLBLADDER 2001 FAMILY HISTORY Problem Relation Age of Onset Diabetes Father Heart Father Diabetes Mother Heart Mother Colon Cancer Sister Social History Tobacco Use Smoking status: Former Smoker Packs/day: 0.10 Years: 3.00 Pack years: 0.30 Quit date: 04/25/1988 Years since quittin.4 Smokeless tobacco: Never Used Tobacco comment: No smoking in childhood home. Roomate of last 10 years smoked while living with patient. Substance Use Topics Alcohol use: No Drug use: No ALLERGIES: Seroquel [Quetiapine Fumarate] and Victoza [Liraglutide] MEDICATIONS: insulin glargine U-300 conc (TOUJEO SOLOSTAR U-300 INSULIN) 300 unit/mL (1.5 mL) Inject 12 Units subcutaneously every morning. zolpidem (AMBIEN) 5 mg tablet Take 1 tablet by mouth at bedtime as needed for sedation for up to 90days. TAKE 1 TABLET BY MOUTH AT BEDTIME NEEDED FOR SEDATION Do not start before September 09, 2021. metFORMIN ER (GLUCOPHAGE XR) 500 mg 24 hr tablet TAKE 3 TABLETS DAILY WITH MEALS gabapentin (NEURONTIN) 600 mg tablet Take 3 tablets by mouth daily at bedtime for 180 days. gabapentin (NEURONTIN) 300 mg capsule TAKE 3 CAPSULES BY MOUTH DAILY WITH LUNCH furosemide (LASIX) 20 mg tablet Take 1 tablet by mouth once daily. fexofenadine (SEFERINO) 180 mg tablet Take 1 tablet by mouth once daily. acyclovir (ZOVIRAX) 400 mg tablet Take 1 tablet by mouth twice daily. rOPINIRole (REQUIP) 0.5 mg tablet TAKE 1 TABLET BY MOUTH TWICE A DAY (NOON AND BEDTIME) Cholecalciferol, Vitamin D3, (VITAMIN D-3) 50 mcg (2,000 unit) cap Take 1 capsule by mouth once daily. sertraline (ZOLOFT) 50 mg tablet Take 1 tablet by mouth once daily. omeprazole (PRILOSEC) 20 mg capsule Take 20 mg by mouth once daily. dulaglutide (TRULICITY) 4.5 mg/0.5 mL pen injector Inject 4.5 mg subcutaneously one time a week. magnesium oxide (MAG-OX) 400 mg (241.3 mg magnesium) tablet Take 2 tablets by mouth once daily. ascorbic acid, vitamin C, (VITAMIN C) 500 mg tablet Take 1 tablet by mouth once daily. atorvastatin (LIPITOR) 20 mg tablet Take 1 tablet by mouth once daily. AUSTEDO 6 mg tab Take 6 mg by mouth twice daily. calcium carbonate 600 mg-cholecalciferol 200 units (CALCARB 600 WITH VITAMIN D) 600 mg(1,500mg) -200 unit tab Take 1 tablet by mouth twice daily. wheat dextrin (BENEFIBER SUGAR FREE, DEXTRIN,) 3 gram/4 gram powd 1/2 tablespoon per day x2 weeks. Then increase by 1/2 tablespoon every 2 weeks until you are taking 3 tablespoons per day in divided doses. polyethylene glycol 3350 (MIRALAX, GLYCOLAX) 17 gram/dose powder Take 17 g by mouth twice daily. Drink a mix of 1 scoop in 8oz of water/beverage once daily as needed for constipation. docusate sodium (COLACE) 100 mg capsule Take 1 capsule by mouth twice daily as needed for Constipation. CPAP Initiate AutoPAP @ 10/20 cm of water with EPR of 3 , humidification. Mask (per patient preference) optional chin strap (if indicated) , filters, tubing, humidifier and lifetime supplies. Dx. [id number] meclizine (ANTIVERT) 25 mg tab Take 1 tablet by mouth three times daily as needed (dizziness). flash glucose sensor (FREESTYLE IZABELLA 2 SENSOR) kit Use to monitor blood sugars 4 times daily aspirin, enteric coated (ASPIRIN, ENTERIC COATED) 81 mg EC tablet Take 1 tablet by mouth once daily. HYDROcodone-acetaminophen (NORCO) 5-325 mg per tablet Take 1 tablet by mouth at bedtime as needed for pain. Lancets lancets Test Four times a day. Insulin Dep? Yes E11.9 DM 2 blood sugar diagnostic (BLOOD GLUCOSE TEST) test strip Test Four times a day. Insulin Dep? Yes E11.9 DM 2 meloxicam (MOBIC) 15 mg tablet Take 1 tablet by mouth once daily. COMPOUNDED PRESCRIPTION PORTABLE OXYGEN TANKS FOR USE IN BACK PACK USES 3 Lpm WHEN ON PORTABLE TANKto use with exertion DX R79.81 COMPOUNDED PRESCRIPTION EMERGENCY BACKUP OXYGEN TANK FOR WHEN PATIENT LOSES ELECTRICITY DX R79.81 COMPOUNDED PRESCRIPTION Oxygen supplies dx: R79.81 R06.02 COMPOUNDED PRESCRIPTION CPAP supplies Dx: G47.33 COMPOUNDED PRESCRIPTION Home Oxygen, 2 litres with cpap machine blood sugar diagnostic (ONETOUCH ULTRA TEST) test strip Test blood sugar(s) 4 times daily. Dx: Type2 DM - Uncontrolled E11.65 Insulin: Yes insulin needles, DISPOSABLE, (ULTICARE PEN NEEDLE) 31 gauge x 5/16 ndle UAD to inject insulins 5 times daily. Lancets (ACCU-CHEK FASTCLIX) lancets With Acc[employer]inomis Laboratoriesek fastclix lancing device. Check sugars 4x/day Dx:e11.65 Insulin: Yes PHYSICAL EXAM: Ht 162.6 cm (5' 4) Wt 108 kg (238 lb) LMP 04/10/2012 (Approximate) BMI 40.85 kg/m All other systems deferred. GENERAL: Appears healthy, well-nourished, no deformities. HABITUS: Obese, yet much improved. GAIT: Antalgic to the left KNEE EXAM: Left: Alignment: Varus deformity, Correctable Range of motion is 10 degrees in extension and 110 degrees of flexion. Extension La degrees Pain with ROM: Yes Effusion: Mild Tender to the palpation of Medial femoral condyle and Medial joint line Pain with patellar compression: Yes Stability: Anterior/Posterior stable and Varus/Valgus stable Hip Exam: flexion to 100+ degrees, full extension, internal/external rotation adequate and no pain with log roll Neurovascular Status: Sensation Intact, Moves foot and ankle up & down and 2+ dorsalis pedis DATA: Diagnostic tests reviewed for today's visit: Left knee X-Ray: Severe tri-compartmental degeneration The following conditions were addressed during the office visit today: Obesity - Weight management strategies and Diabetes - HgbA1C optimization SIGNATURE: Viet Johnson MD PATIENT NAME: Melanie Bird DATE: September 15, 2021 TIME: 9:25 AM documented in this encounterTr[facility]08-01-2022 History of Present illness Narrative* Ligia Renee RT(R) - 09/15/2021 8:30 AM EDT Radiology Service Progress Note PATIENT NAME: Melanie Bird DATE OF SERVICE: September 15, 2021 TIME: 8:35 AM PATIENT IDENTITY VERIFICATION COMPLETED USING TWO (2) IDENTIFIERS: Name and Date of confirmedby patient verbally. FALL SCREENING: Has the patient had 2 falls in the last year or 1 fall with injury or currently using an Ambulatory Assistive Device (Walker, Cane, Wheelchair, Crutches, etc.)? No PATIENT GENDER DATA: Female. status: : No status: NO. PATIENT RELEVANT IMPLANT DATA REVIEWED: Yes RADIOLOGY DEPARTMENT: General X-ray: Exam(s) Completed: Lower Extremity X- Ray(s): Knee, AP / Lat / Tunne / Merchant Left and Wt. Bearing PERIPHERAL IV DATA: Not applicable SIGNED BY: RT Magdalena(R) September 15, 2021 8:35 AM documented in this encounterTrinity [facility]07-27-2022 History of Present illness Narrative* Donis Harris, [facility] - 09/10/2021 2:00 PM EDT Primary Care Pharmacy Visit REASON FOR CONSULT: DM GOALS: A1c < 7% CONSULTING PROVIDER: Dr. Modesta Daley Date of Consult: 06/09/19 Melanie Bird is a 66 year old female presenting for follow up visit in person. Patient consents to pharmacy collaborative practice agreement. Last seen by PCP, Dr. Modesta Daley MD on 08/11/21. At last PCP appt, no medication changes made. INTERIM HISTORY: Patient reports that she continues to lose weight since gastric bypass Has been able to decrease Toujeo down to 12 units daily She is pleased with progress but but reports having increase diarrhea, has discussed this with her gastric bypass team and believes it may be related to diet Current DM Medications: Metformin 500 mg 3 tabs daily Dulaglutide (Trulicity) 4.5 mg weekly on Sundays Insulin glargine U300 (Toujeo) - 20 units daily QAM - Taking 12 units daily Preventative Medications: On REJI/ARB: No On Statin: Yes GLYCEMIC CONTROL: CGM Report - unable to download report, data gathered from device history Summary of CGM Findings: 1- CGM recording is adequate for interpretation. (75% capture rate) 2- Average glucose is 155 mg/dL. 12 am - 6am - 123 mg/dL 6 am -12pm - 147 mg/dL 12 pm - 6 pm - 180 mg/dL 6 pm - 12 am -179 mg/dL 3- Total frequency of hypoglycemia: none 4- Nocturnal hypoglycemia was not noted. 5- Hyperglycemic episodes: 25% 6- Time in target range (70-180 mg/dL): 73% ROS: Patient denies CP, SOB, HATCH, blurred vision, dizziness or lightheadedness Patient denies nausea, vomiting, diarrhea, abdominal pain Patient denies symptoms of hypoglycemia (sweating, anxiety, palpitations, hunger, and tremor) Patient denies symptoms of hyperglycemia (polyuria, polydipsia, polyphagia) Patient denies potential medication adverse effects MEDICATIONS: Pill bottles are not present. Adherence: reports missed doses. Pharmacy: [place], [place]; [facility], [place] Rx coverage: Medicare, Medicaid Affordability: none Diabetes supplies: One Touch ACTIVE PROBLEM LIST Diabetes Mellitus Type 2 ([facility]) Ptsd (Post-Traumatic Stress Disorder) Rls (Restless Legs Syndrome) Low Oxygen Saturation Tardive Dyskinesia Hyperlipidemia With Target Ldl Less Than 70 Ariana (Obstructive Sleep Apnea) Vitamin D Deficiency Ibs (Irritable Bowel Syndrome) Respiratory Abnormality, Unspecified Hypertonicity of Bladder Cataracts, Bilateral Pedal Edema Benign Paroxysmal Positional Vertigo Plantar Fasciitis, Right Congenital Pes Cavus Primary Osteoarthritis of Left Knee Chronic Pain of Left Knee Obesity, Class III, BMI >= 40 (morbid obesity) ([facility]) E66.01 Incontinence of Feces Wound Disruption Vertigo History of Implantation of Artificial Sphincter Grief Reaction Wound of Gluteal Cleft Parkinson's Disease ([facility]) PAST MEDICAL HISTORY Diagnosis Date Depression Diabetes mellitus type 2, uncontrolled History of colon polyps History of gallstones IBS (irritable bowel syndrome) Obesity 04/25/2013 BMI 48.43 ARIANA (obstructive sleep apnea) 03/06/2013 Parkinson disease ([facility]) ALLERGIES Allergen Reactions Seroquel [Quetiapin* Mental Status Change Victoza [Liraglutid* GI Upset Current Outpatient Medications Medication Sig zolpidem (AMBIEN) 5 mg tablet Take 1 tablet by mouth at bedtime as needed for sedation for up to 90days. TAKE 1 TABLET BY MOUTH AT BEDTIME NEEDED FOR SEDATION Do not start before September 09, 2021. metFORMIN ER (GLUCOPHAGE XR) 500 mg 24 hr tablet TAKE 3 TABLETS DAILY WITH MEALS gabapentin (NEURONTIN) 600 mg tablet Take 3 tablets by mouth daily at bedtime for 180 days. insulin glargine U-300 conc (TOUJEO SOLOSTAR U-300 INSULIN) 300 unit/mL (1.5 mL) INJECT 60 UNITS SUBCUTANEOUSLY EVERY MORNING (Patient taking differently: 16 Units every morning. INJECT 16 UNITS SUBCUTANEOUSLY EVERY MORNING ) gabapentin (NEURONTIN) 300 mg capsule TAKE 3 CAPSULES BY MOUTH DAILY WITH LUNCH furosemide (LASIX) 20 mg tablet Take 1 tablet by mouth once daily. fexofenadine (SEFERINO) 180 mg tablet Take 1 tablet by mouth once daily. insulin lispro (HUMALOG KWIKPEN INSULIN) 100 unit/mL HOLDING since bariatric procedure May. Inject 4 units before breakfast and 8 units before lunch and 16 units before dinner plus sliding scale 1 unit for every 50 above 150 Daily max 50 units (Patient not taking: Reported on 08/11/2021 ) acyclovir (ZOVIRAX) 400 mg tablet Take 1 tablet by mouth twice daily. rOPINIRole (REQUIP) 0.5 mg tablet TAKE 1 TABLET BY MOUTH TWICE A DAY (NOON AND BEDTIME) Cholecalciferol, Vitamin D3, (VITAMIN D-3) 50 mcg (2,000 unit) cap Take 1 capsule by mouth once daily. sertraline (ZOLOFT) 50 mg tablet Take 1 tablet by mouth once daily. omeprazole (PRILOSEC) 20 mg capsule Take 20 mg by mouth once daily. flash glucose sensor (FREESTYLE IZABELLA 2 SENSOR) kit Use to monitor blood sugars 4 times daily aspirin, enteric coated (ASPIRIN, ENTERIC COATED) 81 mg EC tablet Take 1 tablet by mouth once daily. (Patient not taking: Reported on 05/08/2021 ) dulaglutide (TRULICITY) 4.5 mg/0.5 mL pen injector Inject 4.5 mg subcutaneously one time a week. magnesium oxide (MAG-OX) 400 mg (241.3 mg magnesium) tablet Take 2 tablets by mouth once daily. ascorbic acid, vitamin C, (VITAMIN C) 500 mg tablet Take 1 tablet by mouth once daily. atorvastatin (LIPITOR) 20 mg tablet Take 1 tablet by mouth once daily. AUSTEDO 6 mg tab Take 6 mg by mouth twice daily. HYDROcodone-acetaminophen (NORCO) 5-325 mg per tablet Take 1 tablet by mouth at bedtime as needed for pain. (Patient not taking: Reported on 08/11/2021) Lancets lancets Test Four times a day. Insulin Dep? Yes E11.9 DM 2 blood sugar diagnostic (BLOOD GLUCOSE TEST) test strip Test Four times a day. Insulin Dep? Yes E11.9 DM 2 calcium carbonate 600 mg-cholecalciferol 200 units (CALCARB 600 WITH VITAMIN D) 600 mg(1,500mg) -200 unit tab Take 1 tablet by mouth twice daily. meloxicam (MOBIC) 15 mg tablet Take 1 tablet by mouth once daily. (Patient not taking: Reported on 05/08/2021 ) wheat dextrin (BENEFIBER SUGAR FREE, DEXTRIN,) 3 gram/4 gram powd 1/2 tablespoon per day x2 weeks. Then increase by 1/2 tablespoon every 2 weeks until you are taking 3 tablespoons per day in divided doses. polyethylene glycol 3350 (MIRALAX, GLYCOLAX) 17 gram/dose powder Take 17 g by mouth twice daily. Drink a mix of 1 scoop in 8oz of water/beverage once daily as needed for constipation. docusate sodium (COLACE) 100 mg capsule Take 1 capsule by mouth twice daily as needed for Constipation. COMPOUNDED PRESCRIPTION PORTABLE OXYGEN TANKS FOR USE IN BACK PACK USES 3 Lpm WHEN ON PORTABLE TANKto use with exertion DX R79.81 COMPOUNDED PRESCRIPTION EMERGENCY BACKUP OXYGEN TANK FOR WHEN PATIENT LOSES ELECTRICITY DX R79.81 CPAP Initiate AutoPAP @ 10/20 cm of water with EPR of 3 , humidification. Mask (per patient preference) optional chin strap (if indicated) , filters, tubing, humidifier and lifetime supplies. Dx. ARIANA 327.23 COMPOUNDED PRESCRIPTION Oxygen supplies dx: R79.81 R06.02 COMPOUNDED PRESCRIPTION CPAP supplies Dx: G47.33 COMPOUNDED PRESCRIPTION Home Oxygen, 2 litres with cpap machine blood sugar diagnostic (ONETOUCH ULTRA TEST) test strip Test blood sugar(s) 4 times daily. Dx: Type2 DM - Uncontrolled E11.65 Insulin: Yes meclizine (ANTIVERT) 25 mg tab Take 1 tablet by mouth three times daily as needed (dizziness). insulin needles, DISPOSABLE, (ULTICARE PEN NEEDLE) 31 gauge x 5/16 ndle UAD to inject insulins 5 times daily. Lancets (ACCU-CHEK FASTCLIX) lancets With [employer] fastclix lancing device. Check sugars 4x/day Dx:e11.65 Insulin: Yes No current facility-administered medications for this visit. EXAM: Last 3 Encounter BP Readings: Date: BP: 08/11/2021 110/62 06/04/2021 114/60 05/08/2021 130/76 Wt: 111.2 kg (245 lb 1.3 oz) BMI: 42.07 kg/(m^2) LABS: Lab Results Component Value Date HBA1C 7.0 07/30/2021 HBA1C 7.0 11/15/2020 HBA1C 7.2 09/02/2020 HBA1C 8.2 06/03/2020 CMP: Glucose 175 08/22/2021 BUN 9 08/22/2021 Creatinine, Whole Blood (iSTAT) 0.58 08/22/2021 Sodium 141 08/22/2021 Potassium 3.9 08/22/2021 Chloride 101 08/22/2021 CO2 30 08/22/2021 Protein, Total 6.5 08/22/2021 Albumin 4.0 08/22/2021 Calcium 9.6 08/22/2021 Alkaline Phosphatase 60 08/22/2021 Bilirubin, Total 0.7 08/22/2021 AST 22 08/22/2021 ALT 21 08/22/2021 Serum creatinine: 0.58 mg/dL 08/22/21 0918 Estimated creatinine clearance: 119.6 mL/min Vitamin B12 Date Value Ref Range Status 08/22/2021 537 232-1,245 pg/mL Final Lab Results Component Value Date CHOL 138 11/15/2020 LDL 72 11/15/2020 HDL 45 11/15/2020 TG 103 11/15/2020 The 10-year ASCVD risk score (Xiang BURK Jr., et al., 2013) is: 6.3% Values used to calculate the score: Age: 66 years Sex: Female Is Non- : No Diabetic: Yes Tobacco smoker: No Systolic Blood Pressure: 110 mmHg Is BP treated: No HDL Cholesterol: 45 mg/dL Total Cholesterol: 138 mg/dL Albumin/Creat Ratio (mg/g) Date Value 07/30/2021 <10 PHARMACOTHERAPY ASSESSMENT/PLAN: 1. Uncontrolled type 2 diabetes mellitus with hyperglycemia (HCC) - ICD9: 250.02, ICD10: E11.65 A1c goal < 7%; almost at goal (last A1c 7.0%); SMBG improving on current regimen; denies s/sx hypoglycemia; denies s/sx hyperglycemia. Reports some more recent GI upset. Will trial lowering metformin dose by 1 tablet to see if symptoms improve. She is also working with bariatrics team RD to see if related to food. Trial lower dose metformin 500 mg 2 times daily CONTINUE Trulicity 4.5 mg weekly, Toujeo 12 units once daily Removed Humalog from med list as patient is no longer requiring - TOUJEO SOLOSTAR U-300 INSULIN 300 UNIT/ML (1.5 ML) SUBCUTANEOUS PEN Follow up: Patient is scheduled to see PCP on 12/11/21. Patient to follow up with PharmD on 10/06/21. Patient verbalized understanding of instructions. Donis Harris PharmD, CHARITOCP Primary Care Clinical Pharmacist [facility] The majority of the pharmacy visit (> 50%) was spent counseling and/or coordinating care for thepatient. [Face to Face] time was 23 minutes. documented in this encounterTr[facility]-27-2022 Instructions* Patient Instructions* Donis Harris RPh - 09/10/2021 2:00 PM EDT Try lower dose metformin 500 mg 2 times daily before meals to see if GI symptoms occur CONTINUE Trulicity 4.5 mg weekly, Toujeo 12 units once daily documented in this encounterTr[facility]07-25-2022 Miscellaneous Notes* Telephone Encounter - Donis Harris RPh - 09/08/2021 2:27 PM EDT Patient no showed for today's pharmacy visit. Called and spoke with patient, rescheduled for 09/10. Donis Harris PharmD, BCACP Primary Care Clinical Pharmacist [facility] documented in this encounterTr[facility]07-15-2022 Miscellaneous Notes* Telephone Encounter - Inna Small APRN.CNP - 08/29/2021 4:35 PM EDT PDMP website checked and validated. All prescriptions have been APPROPRIATELY filled. No suspiciousactivity was identified. 08/29/2021 by Inna Small APRN.CNP * Telephone Encounter - Josee Porter LPN - 08/29/2021 1:58 PM EDT Patient has been identified by name and date of : Yes Patient phones for refill(s): Pending Prescriptions Disp Refills ZOLPIDEM 5 MG TABLET 30 tablet Sig: TAKE 1 TABLET BY MOUTH AT BEDTIME NEEDED FOR SEDATION BLADIMIR Class: C-IV RONALD: No Date of last office visit in primary care: 08/11/21 Last 2 Encounter Wt Readings: Date: Wt: 08/11/2021 111.2 kg (245 lb 1.3 oz) 06/04/2021 124.3 kg (274 lb) Previous labs/tests for medication: Not applicable Please advise. Thank you. Josee Porter LPN documented in this encounterTr[facility]07-15-2022 Miscellaneous Notes* Telephone Encounter - Soniya Perez RN - 08/29/2021 2:35 PM EDT Patient has been identified by name and date of : Yes Pharmacy phones for refill(s): Pending Prescriptions Disp Refills METFORMIN ER 500 MG TABLET,EXTENDED RELEASE 24 HR 90 tablet 5 Sig: TAKE 3 TABLETS DAILY WITH MEALS RONALD: No Date of last office visit with pcp: 08-11-21. Next appt: 12-11-21 Last 2 Encounter Wt Readings: Date: Wt: 08/11/2021 111.2 kg (245 lb 1.3 oz) 06/04/2021 124.3 kg (274 lb) Previous labs/tests for medication: Diabetes: Hemoglobin A1C (%) Date Value 07/30/2021 7.0 11/15/2020 7.0 09/02/2020 7.2 Please advise. Thank you. Soniya Perez RN documented in this encounterTrinity [facility]06-30-2022 History of Present illness Narrative* Leslie Salgado RN - 08/14/2021 12:59 PM EDT Pt. left without being seen due to episode of stool incontinence. documented in this encounterTrinity [facility]06-27-2022 History of Present illness Narrative* Modesta Daley MD - 08/11/2021 2:21 PM EDT Reason for Visit Patient presents with: Follow Up: 3 month- patient due for JAZMIN Melanie Bird is a 66 year old female who presents here today for Above Complaints.. Health Maintenance PAP TESTING HPV TESTING DIABETIC FOOT EXAM PNEUMOCOCCAL(2 - PCV) DEPRESSION SCREENING DILATED RETINAL EXAM HPI Had gastric bypass surgery on May 29 2021. Lost 50 pounds, she is excited to have her knee replacement surgery. Seeing patricki about reduction of glucose medications. Patient notes her goal is to get away from Insulin and cpap. Insulin is down to 16 units, cont the trulicity and metformin 3 tablets. Some changes in her GI system to include a lot of rumbling, at night, she is eating small amounts of soft food, 2/3 bites Snack, or protein bar. She is gassy a lot at night time. Patient has not tried taking gassex. She takes calcium, vit b, on a regular basis. Patient takes the vitamins she needs to take daily. No problem-specific Assessment & Plan notes found for this encounter. PAST MEDICAL HISTORY Diagnosis Date Depression Diabetes mellitus type 2, uncontrolled History of colon polyps History of gallstones IBS (irritable bowel syndrome) Obesity 04/25/2013 BMI 48.43 ARIANA (obstructive sleep apnea) 03/06/2013 Parkinson disease (HCC) PAST SURGICAL HISTORY Procedure Laterality Date ANAL SPHINCTEROPLASTY SPHINCTEROPLASTY ANAL W/ IMPLANT ARTIFICIAL SPHINCTER ADULT CATARACT EXTRACTION HX Bilateral 08/2012 COLONOSCOPY GEN ANES 04/2019 INCISE FINGER TENDON SHEATH 12/20/2012 Left 3rd trigger finger release PAST SURGICAL HISTORY OF 06/2012 Interstim PAST SURGICAL HISTORY OF Right trigger thumb REMOVAL GALLBLADDER 2001 FAMILY HISTORY Problem Relation Age of Onset Diabetes Father Heart Father Diabetes Mother Heart Mother Colon Cancer Sister Social History Tobacco Use Smoking status: Former Smoker Packs/day: 0.10 Years: 3.00 Pack years: 0.30 Quit date: 04/25/1988 Years since quittin.3 Smokeless tobacco: Never Used Tobacco comment: No smoking in childhood home. Roomate of last 10 years smoked while living with patient. Substance Use Topics Alcohol use: No Drug use: No Past medical history, appointments, medications, allergies reviewed. Pertinent Lab/Diagnostic Studies are reviewed and discussed today Current Outpatient Medications: gabapentin (NEURONTIN) 600 mg tablet insulin glargine U-300 conc (TOUJEO SOLOSTAR U-300 INSULIN) 300 unit/mL (1.5 mL) gabapentin (NEURONTIN) 300 mg capsule furosemide (LASIX) 20 mg tablet fexofenadine (SEFERINO) 180 mg tablet zolpidem (AMBIEN) 5 mg tablet acyclovir (ZOVIRAX) 400 mg tablet rOPINIRole (REQUIP) 0.5 mg tablet Cholecalciferol, Vitamin D3, (VITAMIN D-3) 50 mcg (2,000 unit) cap sertraline (ZOLOFT) 50 mg tablet omeprazole (PRILOSEC) 20 mg capsule flash glucose sensor (FREESTYLE IZABELLA 2 SENSOR) kit dulaglutide (TRULICITY) 4.5 mg/0.5 mL pen injector magnesium oxide (MAG-OX) 400 mg (241.3 mg magnesium) tablet ascorbic acid, vitamin C, (VITAMIN C) 500 mg tablet metFORMIN ER (GLUCOPHAGE XR) 500 mg 24 hr tablet atorvastatin (LIPITOR) 20 mg tablet AUSTEDO 6 mg tab Lancets lancets blood sugar diagnostic (BLOOD GLUCOSE TEST) test strip calcium carbonate 600 mg-cholecalciferol 200 units (CALCARB 600 WITH VITAMIN D) 600 mg(1,500mg) -200 unit tab wheat dextrin (BENEFIBER SUGAR FREE, DEXTRIN,) 3 gram/4 gram powd polyethylene glycol 3350 (MIRALAX, GLYCOLAX) 17 gram/dose powder docusate sodium (COLACE) 100 mg capsule Alosetron HCl 0.5 mg tablet blood sugar diagnostic ([employer] CinemaTOUCH ULTRA TEST) test strip meclizine (ANTIVERT) 25 mg tab insulin needles, DISPOSABLE, (ULTICARE PEN NEEDLE) 31 gauge x 5/16 ndle Lancets (ACCU-CHEK FASTCLIX) lancets insulin lispro (HUMALOG KWIKPEN INSULIN) 100 unit/mL aspirin, enteric coated (ASPIRIN, ENTERIC COATED) 81 mg EC tablet HYDROcodone-acetaminophen (NORCO) 5-325 mg per tablet meloxicam (MOBIC) 15 mg tablet COMPOUNDED PRESCRIPTION COMPOUNDED PRESCRIPTION CPAP COMPOUNDED PRESCRIPTION COMPOUNDED PRESCRIPTION COMPOUNDED PRESCRIPTION Review of Systems CONSTITUTIONAL: No fevers, chills night sweats, unintended weight loss CARDIOVASCULAR: No chest pain, dyspnea, palpitations, orthopnea, PND, ankle edema. PULM: No dyspnea, unexplained cough. GI: No dysphagia/odynophagia, problematic reflux, constipation, diarrhea, changes in stool habits, hematochezia, melena. : No new urinary complaints, including dysuria, gross hematuria or pyuria. NEURO: No new balance problems, peripheral weakness/paresthesias or numbness of concern. Physical Exam BP 110/62 Pulse 79 Resp 18 Wt 111.2 kg (245 lb 1.3 oz) LMP 04/10/2012 (Approximate) SpO2 92% BMI 42.07 kg/m General appearance: Well appearing, alert, in no acute distress, well nourished. Skin: Skin color, texture, turgor normal, no suspicious rashes or lesions Head: Normocephalic, no masses, lesions, tenderness or abnormalities Eyes: Anicteric sclera. Pupils are equally round and reactive to light. Extraocular movements are intact. Lungs: Lungs clear to auscultation. No wheezing, rhonchi, rales Heart: RRR without murmur, gallop, or rubs. Extremities: No deformities, edema, skin discoloration, clubbing or cyanosis. Good capillary refill. ASSESSMENT/PLAN: 1. Sleep apnea, unspecified type - ICD9: 780.57, ICD10: G47.30 (primary diagnosis) - CONSULT TO SLEEP MEDICINE - ADULT 2. S/P bariatric surgery - ICD9: V45.86, ICD10: Z98.84 - CONSULT TO SLEEP MEDICINE - ADULT 3. Diabetes mellitus type 2 (HCC) - ICD9: 250.00, ICD10: E11.9 Much better controlled. Our aim is to get her off the insulin Modesta Daley MD documented in this encounterTr[facility]06-23-2022 Miscellaneous Notes* Telephone Encounter - Radha Spencer RN - 08/07/2021 2:49 PM EDT Patient has been identified by name and date of : Yes Pharmacy phones for refill(s): Pending Prescriptions Disp Refills GABAPENTIN 600 MG TABLET 90 tablet 1 Sig: Take 3 tablets by mouth daily at bedtime for 180 days. RONALD: No Ginger with [place] [facility] calls to request refill. Verified that last prescription was out of refills. Ginger reports no further refills on current order at pharmacy. Date of last office visit with pcp: 06/04/2021 Future appt: 08/11/2021 Last 2 Encounter Wt Readings: Date: Wt: 06/04/2021 124.3 kg (274 lb) 05/08/2021 130.2 kg (287 lb) Previous labs/tests for medication: Blood Pressure: BUN (mg/dL) Date Value 07/30/2021 8 11/15/2020 18 Sodium (mmol/L) Date Value 07/30/2021 142 11/15/2020 140 Last 1 Encounter BP Readings: Date: BP: 06/04/2021 114/60 Liver Function: ALT (U/L) Date Value 07/30/2021 26 11/15/2020 17 AST (U/L) Date Value 07/30/2021 26 11/15/2020 18 Please advise. Thank you. Radha Spencer RN documented in this encounterTr[facility]06-17-2022 Miscellaneous Notes* Telephone Encounter - Josee Porter LPN - 08/01/2021 2:53 PM EDT Patient has been identified by name and date of : Yes Patient phones for refill(s): Pending Prescriptions Disp Refills TOUJEO SOLOSTAR U-300 INSULIN 300 UNIT/ML (1.5 ML) SUBCUTANEOUS PEN 30 mL Sig: INJECT 60 UNITS SUBCUTANEOUSLY EVERY MORNING RONALD: No GABAPENTIN 300 MG CAPSULE 90 capsule 1 Sig: TAKE 3 CAPSULES BY MOUTH DAILY WITH LUNCH RONALD: Yes Date of last office visit in primary care: 06/04/21 Last 2 Encounter Wt Readings: Date: Wt: 06/04/2021 124.3 kg (274 lb) 05/08/2021 130.2 kg (287 lb) Previous labs/tests for medication: Diabetes: Hemoglobin A1C (%) Date Value 07/30/2021 7.0 11/15/2020 7.0 09/02/2020 7.2 Please advise. Thank you. Josee Porter LPN documented in this encounterTrinity [facility]05-20-2022 Miscellaneous Notes* Telephone Encounter - Inna Small APRN.CNP - 07/04/2021 3:27 PM EDT PDMP website checked and validated. All prescriptions have been APPROPRIATELY filled. No suspiciousactivity was identified. 07/04/2021 by Inna Small APRN.SABINE * Telephone Encounter - Josee Porter LPN - 07/04/2021 12:08 PM EDT Patient has been identified by name and date of : Yes Patient phones for refill(s): Pending Prescriptions Disp Refills FUROSEMIDE 20 MG TABLET 30 tablet 5 Sig: Take 1 tablet by mouth once daily. RONALD: No FEXOFENADINE 180 MG TABLET 28 tablet 3 Sig: Take 1 tablet by mouth once daily. RONALD: No ZOLPIDEM 5 MG TABLET 30 tablet 1 Sig: TAKE 1 TABLET AT BEDTIME NEEDED FOR SEDATION BLADIMIR Class: C-IV RONALD: No Date of last office visit in primary care: 06/04/21 Last 2 Encounter Wt Readings: Date: Wt: 06/04/2021 124.3 kg (274 lb) 05/08/2021 130.2 kg (287 lb) Previous labs/tests for medication: Not applicable Please advise. Thank you. Josee Porter LPN * Telephone Encounter - Vanessa Farias Pss - 07/04/2021 11:46 AM EDT Patient has been identified by name and date of : Yes Pending Prescriptions Disp Refills FUROSEMIDE 20 MG TABLET 30 tablet 5 Sig: Take 1 tablet by mouth once daily. RONALD: No FEXOFENADINE 180 MG TABLET 28 tablet 3 Sig: Take 1 tablet by mouth once daily. RONALD: No ZOLPIDEM 5 MG TABLET 30 tablet 1 Sig: TAKE 1 TABLET AT BEDTIME NEEDED FOR SEDATION BLADIMIR Class: C-IV RONALD: No RX INSTRUCTIONS: Patient aware RX will be sent to pharmacy. No need to notify patient. Vanessa Farias Pss documented in this encounterTrinity Health [facility]05-16-2022 History of Present illness Narrative* Donis Harris, [facility] - 06/30/2021 3:30 PM EDT Primary Care Pharmacy Visit REASON FOR CONSULT: DM GOALS: A1c < 7% CONSULTING PROVIDER: Dr. Modesta Daley Date of Consult: 06/09/19 Melanie Bird is a 66 year old female presenting for follow up visit in person. Patient consents to pharmacy collaborative practice agreement. Last seen by PCP, Dr. Modesta Daley MD on 06/04/21. At last PCP visit, patient was following up after gastric bypass procedure, she was instructed to resumemetformin and continue follow up with pharmacy to determine if insulin needed to be resumed. At last PharmD visit on 06/11, insulin glargine was resumed and metformin dose was resumed to same dose prior to gastric bypass procedure. INTERIM HISTORY: Completed gastric bypass procedure on 05/28/21 Currently on soft food diet - no nuts, seeds or salad Still tires easily Starting to see BG readings trending down Has titrated Toujeo up to 20 units of basal insulin Current DM Medications: Metformin 500 mg 3 tabs daily Dulaglutide (Trulicity) 4.5 mg weekly on Sundays Insulin glargine U300 (Toujeo) - 20 units daily QAM Insulin lispro (Humalog) 4 units before breakfast, 8 units before lunch, and 14 units before dinnerplus sliding scale - On Hold since bariatric procedure Preventative Medications: On REJI/ARB: No On Statin: Yes GLYCEMIC CONTROL: CGM Report - unable to download report, data gathered from device history Summary of CGM Findings: 1- CGM recording is adequate for interpretation. (75% capture rate) 2- Average glucose is 187 mg/dL. 12 am - 6am - 167 mg/dL 6 am -12pm - 197 mg/dL 12 pm - 6 pm - 200 mg/dL 6 pm - 12 am -185 mg/dL 3- Total frequency of hypoglycemia: none 4- Nocturnal hypoglycemia was not noted. 5- Hyperglycemic episodes: 52% 6- Time in target range (70-180 mg/dL): 48% ROS: Patient denies CP, SOB, HATCH, blurred vision, dizziness or lightheadedness Patient denies nausea, vomiting, diarrhea, abdominal pain Patient denies symptoms of hypoglycemia (sweating, anxiety, palpitations, hunger, and tremor) Patient denies symptoms of hyperglycemia (polyuria, polydipsia, polyphagia) Patient denies potential medication adverse effects MEDICATIONS: Pill bottles are not present. Adherence: reports missed doses. Pharmacy: [place], [place]; [facility], [place] Radha Rx coverage: Medicare, Medicaid Affordability: none Diabetes supplies: One Touch ACTIVE PROBLEM LIST Diabetes Mellitus Type 2 ([facility]) Ptsd (Post-Traumatic Stress Disorder) Rls (Restless Legs Syndrome) Low Oxygen Saturation Tardive Dyskinesia Hyperlipidemia With Target Ldl Less Than 70 Ariana (Obstructive Sleep Apnea) Vitamin D Deficiency Ibs (Irritable Bowel Syndrome) Respiratory Abnormality, Unspecified Hypertonicity of Bladder Cataracts, Bilateral Pedal Edema Benign Paroxysmal Positional Vertigo Plantar Fasciitis, Right Congenital Pes Cavus Primary Osteoarthritis of Left Knee Chronic Pain of Left Knee Obesity, Class III, BMI >= 40 (morbid obesity) ([facility]) E66.01 Incontinence of Feces Wound Disruption Vertigo History of Implantation of Artificial Sphincter Grief Reaction Wound of Gluteal Cleft Parkinson's Disease ([facility]) PAST MEDICAL HISTORY Diagnosis Date Depression Diabetes mellitus type 2, uncontrolled History of colon polyps History of gallstones IBS (irritable bowel syndrome) Obesity 04/25/2013 BMI 48.43 ARIANA (obstructive sleep apnea) 03/06/2013 Parkinson disease (HCC) ALLERGIES Allergen Reactions Seroquel [Quetiapin* Mental Status Change Victoza [Liraglutid* GI Upset Current Outpatient Medications Medication Sig gabapentin (NEURONTIN) 600 mg tablet TAKE 3 TABLETS BY MOUTH AT BEDTIME insulin lispro (HUMALOG KWIKPEN INSULIN) 100 unit/mL HOLDING since bariatric procedure May. Inject 4 units before breakfast and 8 units before lunch and 16 units before dinner plus sliding scale 1 unit for every 50 above 150 Daily max 50 units insulin glargine U-300 conc (TOUJEO SOLOSTAR U-300 INSULIN) 300 unit/mL (1.5 mL) Restarting insulinat 12 units daily and increasing dose every 3 days by 1 unit if fasting blood sugar >130 mg/dL. Up to 20 units. acyclovir (ZOVIRAX) 400 mg tablet Take 1 tablet by mouth twice daily. rOPINIRole (REQUIP) 0.5 mg tablet TAKE 1 TABLET BY MOUTH TWICE A DAY (NOON AND BEDTIME) Cholecalciferol, Vitamin D3, (VITAMIN D-3) 50 mcg (2,000 unit) cap Take 1 capsule by mouth once daily. gabapentin (NEURONTIN) 300 mg capsule TAKE 3 CAPSULES BY MOUTH DAILY WITH LUNCH sertraline (ZOLOFT) 50 mg tablet Take 1 tablet by mouth once daily. zolpidem (AMBIEN) 5 mg tablet TAKE 1 TABLET AT BEDTIME NEEDED FOR SEDATION omeprazole (PRILOSEC) 20 mg capsule Take 20 mg by mouth once daily. flash glucose sensor (FREESTYLE IZABELLA 2 SENSOR) kit Use to monitor blood sugars 4 times daily aspirin, enteric coated (ASPIRIN, ENTERIC COATED) 81 mg EC tablet Take 1 tablet by mouth once daily. (Patient not taking: Reported on 05/08/2021 ) dulaglutide (TRULICITY) 4.5 mg/0.5 mL pen injector Inject 4.5 mg subcutaneously one time a week. magnesium oxide (MAG-OX) 400 mg (241.3 mg magnesium) tablet Take 2 tablets by mouth once daily. ascorbic acid, vitamin C, (VITAMIN C) 500 mg tablet Take 1 tablet by mouth once daily. fexofenadine (SEFERINO) 180 mg tablet Take 1 tablet by mouth once daily. metFORMIN ER (GLUCOPHAGE XR) 500 mg 24 hr tablet TAKE 3 TABLETS DAILY WITH MEALS atorvastatin (LIPITOR) 20 mg tablet Take 1 tablet by mouth once daily. furosemide (LASIX) 20 mg tablet Take 1 tablet by mouth once daily. AUSTEDO 6 mg tab Take 6 mg by mouth twice daily. HYDROcodone-acetaminophen (NORCO) 5-325 mg per tablet Take 1 tablet by mouth at bedtime as needed for pain. Lancets lancets Test Four times a day. Insulin Dep? Yes E11.9 DM 2 blood sugar diagnostic (BLOOD GLUCOSE TEST) test strip Test Four times a day. Insulin Dep? Yes E11.9 DM 2 calcium carbonate 600 mg-cholecalciferol 200 units (CALCARB 600 WITH VITAMIN D) 600 mg(1,500mg) -200 unit tab Take 1 tablet by mouth twice daily. meloxicam (MOBIC) 15 mg tablet Take 1 tablet by mouth once daily. (Patient not taking: Reported on 05/08/2021 ) wheat dextrin (BENEFIBER SUGAR FREE, DEXTRIN,) 3 gram/4 gram powd 1/2 tablespoon per day x2 weeks. Then increase by 1/2 tablespoon every 2 weeks until you are taking 3 tablespoons per day in divided doses. polyethylene glycol 3350 (MIRALAX, GLYCOLAX) 17 gram/dose powder Take 17 g by mouth twice daily. Drink a mix of 1 scoop in 8oz of water/beverage once daily as needed for constipation. docusate sodium (COLACE) 100 mg capsule Take 1 capsule by mouth twice daily as needed for Constipation. COMPOUNDED PRESCRIPTION PORTABLE OXYGEN TANKS FOR USE IN BACK PACK USES 3 Lpm WHEN ON PORTABLE TANKto use with exertion DX R79.81 COMPOUNDED PRESCRIPTION EMERGENCY BACKUP OXYGEN TANK FOR WHEN PATIENT LOSES ELECTRICITY DX R79.81 CPAP Initiate AutoPAP @ 10/20 cm of water with EPR of 3 , humidification. Mask (per patient preference) optional chin strap (if indicated) , filters, tubing, humidifier and lifetime supplies. Dx. ARIANA 327.23 COMPOUNDED PRESCRIPTION Oxygen supplies dx: R79.81 R06.02 COMPOUNDED PRESCRIPTION CPAP supplies Dx: G47.33 COMPOUNDED PRESCRIPTION Home Oxygen, 2 litres with cpap machine Alosetron HCl 0.5 mg tablet Take 1 mg by mouth as directed. Taking 1 mg in the morning and 0.5 mg at dinner. Prescribed by Dr. Everton Whitman blood sugar diagnostic ([employer] ULTRA TEST) test strip Test blood sugar(s) 4 times daily. Dx: Type2 DM - Uncontrolled E11.65 Insulin: Yes meclizine (ANTIVERT) 25 mg tab Take 1 tablet by mouth three times daily as needed (dizziness). insulin needles, DISPOSABLE, (ULTICARE PEN NEEDLE) 31 gauge x 5/16 ndle UAD to inject insulins 5 times daily. Lancets (ACCU-CHEK FASTCLIX) lancets With [employer] fastclix lancing device. Check sugars 4x/day Dx:e11.65 Insulin: Yes No current facility-administered medications for this visit. EXAM: Last 3 Encounter BP Readings: Date: BP: 06/04/2021 114/60 05/08/2021 130/76 03/08/2021 136/82 Wt: 124.3 kg (274 lb) BMI: 47.03 kg/(m^2) LABS: Lab Results Component Value Date HBA1C 7.0 11/15/2020 HBA1C 7.2 09/02/2020 HBA1C 8.2 06/03/2020 CMP: Glucose 201 06/20/2021 BUN 10 06/20/2021 Creatinine, Whole Blood (iSTAT) 0.64 06/20/2021 Sodium 139 06/20/2021 Potassium 3.8 06/20/2021 Chloride 99 06/20/2021 CO2 27 06/20/2021 Protein, Total 6.7 06/20/2021 Albumin 4.2 06/20/2021 Calcium 10.0 06/20/2021 Alkaline Phosphatase 56 06/20/2021 Bilirubin, Total 0.8 06/20/2021 AST 33 06/20/2021 ALT 27 06/20/2021 Serum creatinine: 0.64 mg/dL 06/20/21 0926 Estimated creatinine clearance: 115.7 mL/min Vitamin B12 Date Value Ref Range Status 06/20/2021 1,059 232-1,245 pg/mL Final Lab Results Component Value Date CHOL 138 11/15/2020 LDL 72 11/15/2020 HDL 45 11/15/2020 TG 103 11/15/2020 The 10-year ASCVD risk score (Xiang BURK Jr., et al., 2013) is: 6.8% Values used to calculate the score: Age: 66 years Sex: Female Is Non- : No Diabetic: Yes Tobacco smoker: No Systolic Blood Pressure: 114 mmHg Is BP treated: No HDL Cholesterol: 45 mg/dL Total Cholesterol: 138 mg/dL Albumin/Creat Ratio (mg/g) Date Value 08/21/2020 Not calculated PHARMACOTHERAPY ASSESSMENT/PLAN: 1. Uncontrolled type 2 diabetes mellitus with hyperglycemia (HCC) - ICD9: 250.02, ICD10: E11.65 A1c goal < 7%; almost at goal (last A1c 7.0%); SMBG elevated on current regimen; denies s/sx hypoglycemia; denies s/sx hyperglycemia; Readings remain elevated, therefore today will increase basal insulin, will continue holding bolus insulin. Renal function and LFTs appropriate for continued use INCREASE Toujeo at 22 units once daily in the morning Check your blood sugar every morning before eating or drinking anything (fasting blood sugar level). Adjust your insulin every 3 days as follows: If your blood sugar is above 129, INCREASE your insulin by 1 unit. If your blood sugar is 80-129, CONTINUE your current insulin dose. If your blood sugar is less than 80, DECREASE your insulin by 1 unit. Continue this method until you reach your target fasting blood sugar level consistently (80-130) CONTINUE Trulicity 4.5 mg weekly, metformin 500 mg 3 tabs daily HOLD Humalog - TOUJEO SOLOSTAR U-300 INSULIN 300 UNIT/ML (1.5 ML) SUBCUTANEOUS PEN Follow up: Patient is scheduled to see PCP team on 08/11/21. Patient to follow up with PharmD on 07/21/21. Patient verbalized understanding of instructions. Donis Harris PharmD, BCACP Primary Care Clinical Pharmacist [facility] The majority of the pharmacy visit (> 50%) was spent counseling and/or coordinating care for thepatient. [Face to Face] time was 27 minutes. documented in this encounterTr[facility]-16-[facility]22 Instructions* Patient Instructions* Donis Harris RPh - 06/30/2021 3:30 PM EDT INCREASE Toujeo at 22 units once daily in the morning Check your blood sugar every morning before eating or drinking anything (fasting blood sugar level). Adjust your insulin every 3 days as follows: If your blood sugar is above 129, INCREASE your insulin by 1 unit. If your blood sugar is 80-129, CONTINUE your current insulin dose. If your blood sugar is less than 80, DECREASE your insulin by 1 unit. Continue this method until you reach your target fasting blood sugar level consistently (80-130) CONTINUE Trulicity 4.5 mg weekly, metformin 500 mg 3 tabs daily HOLD Humalog documented in this encounterTrinity [facility]04-27-2022 History of Present illness Narrative* Donis Harris RPh - 06/11/2021 3:30 PM EDT Images from the original note were not included. Primary Care Pharmacy Visit REASON FOR CONSULT: DM GOALS: A1c < 7% CONSULTING PROVIDER: Dr. Modesta Daley Date of Consult: 06/09/19 Melanie Bird is a 66 year old female presenting for follow up visit in person. Patient consents to pharmacy collaborative practice agreement. Last seen by PCP, Dr. Modesta Daley MD on 06/04/21. At last PCP visit, patient was following up after gastric bypass procedure, she was instructed to resumemetformin and continue follow up with pharmacy to determine if insulin needed to be resumed. INTERIM HISTORY: Completed gastric bypass procedure on 05/28/21 Met with ergonomics engineer on 06/03 Was doing full liquid diet, currently doing advanced purees then is to begin soft foods Down 20.8 lbs since procedure Was not on any insulin of DM medications since surgery, has resumed Trulicity and metformin at 2 tabs daily Reports feeling more tired, blood sugar Current DM Medications: Metformin 500 mg 3 tabs daily - Taking differently: 1 tab twice daily with meals Dulaglutide (Trulicity) 4.5mg weekly on Sundays Insulin glargine U300 (Toujeo) - 60 units daily QAM - Not taking since bariatric procedure Insulin lispro (Humalog) 4 units before breakfast, 8 units before lunch, and 14 units before dinnerplus sliding scale - Not taking since bariatric procedure Preventative Medications: On REJI/ARB: No On Statin: Yes GLYCEMIC CONTROL: Summary of CGM Findings: 1- CGM recording is adequate for interpretation. 2- Average glucose is 251 mg/dL. 3- Total frequency of hypoglycemia: none 4- Nocturnal hypoglycemia was not noted. 5- Hyperglycemic episodes: 88% 6- Time in target range (70-180 mg/dL): 12% ROS: Patient denies CP, SOB, HATCH, blurred vision, dizziness or lightheadedness Patient denies nausea, vomiting, diarrhea, abdominal pain Patient denies symptoms of hypoglycemia (sweating, anxiety, palpitations, hunger, and tremor) Patient denies symptoms of hyperglycemia (polyuria, polydipsia, polyphagia) Patient denies potential medication adverse effects MEDICATIONS: Pill bottles are not present. Adherence: reports missed doses. [place]; [facility], [place] Rx coverage: Medicare, Medicaid Affordability: none Diabetes supplies: enEvolv System: Adherence packaging ACTIVE PROBLEM LIST Diabetes Mellitus Type 2 (Hcc) Ptsd (Post-Traumatic Stress Disorder) Rls (Restless Legs Syndrome) Low Oxygen Saturation Tardive Dyskinesia Hyperlipidemia With Target Ldl Less Than 70 Ariana (Obstructive Sleep Apnea) Vitamin D Deficiency Ibs (Irritable Bowel Syndrome) Respiratory Abnormality, Unspecified Hypertonicity of Bladder Cataracts, Bilateral Pedal Edema Benign Paroxysmal Positional Vertigo Plantar Fasciitis, Right Congenital Pes Cavus Primary Osteoarthritis of Left Knee Chronic Pain of Left Knee Obesity, Class III, BMI >= 40 (morbid obesity) ([facility]) E66.01 Incontinence of Feces Wound Disruption Vertigo History of Implantation of Artificial Sphincter Grief Reaction Wound of Gluteal Cleft Parkinson's Disease ([facility]) PAST MEDICAL HISTORY Diagnosis Date Depression Diabetes mellitus type 2, uncontrolled History of colon polyps History of gallstones IBS (irritable bowel syndrome) Obesity 04/25/2013 BMI 48.43 ARIANA (obstructive sleep apnea) 03/06/2013 Parkinson disease ([facility]) ALLERGIES Allergen Reactions Seroquel [Quetiapin* Mental Status Change Victoza [Liraglutid* GI Upset Current Outpatient Medications Medication Sig acyclovir (ZOVIRAX) 400 mg tablet Take 1 tablet by mouth twice daily. rOPINIRole (REQUIP) 0.5 mg tablet TAKE 1 TABLET BY MOUTH TWICE A DAY (NOON AND BEDTIME) Cholecalciferol, Vitamin D3, (VITAMIN D-3) 50 mcg (2,000 unit) cap Take 1 capsule by mouth once daily. gabapentin (NEURONTIN) 300 mg capsule TAKE 3 CAPSULES BY MOUTH DAILY WITH LUNCH sertraline (ZOLOFT) 50 mg tablet Take 1 tablet by mouth once daily. zolpidem (AMBIEN) 5 mg tablet TAKE 1 TABLET AT BEDTIME NEEDED FOR SEDATION omeprazole (PRILOSEC) 20 mg capsule Take 20 mg by mouth once daily. insulin lispro (HUMALOG KWIKPEN INSULIN) 100 unit/mL Inject 4 units before breakfast and 8 units before lunch and 16 units before dinner plus sliding scale 1 unit for every 50 above 150 Daily max 50 units flash glucose sensor (FREESTYLE IZABELLA 2 SENSOR) kit Use to monitor blood sugars 4 times daily aspirin, enteric coated (ASPIRIN, ENTERIC COATED) 81 mg EC tablet Take 1 tablet by mouth once daily. (Patient not taking: Reported on 05/08/2021 ) insulin glargine U-300 conc (TOUJEO SOLOSTAR U-300 INSULIN) 300 unit/mL (1.5 mL) Inject 60 Units subcutaneously every morning. dulaglutide (TRULICITY) 4.5 mg/0.5 mL pen injector Inject 4.5 mg subcutaneously one time a week. magnesium oxide (MAG-OX) 400 mg (241.3 mg magnesium) tablet Take 2 tablets by mouth once daily. ascorbic acid, vitamin C, (VITAMIN C) 500 mg tablet Take 1 tablet by mouth once daily. gabapentin (NEURONTIN) 600 mg tablet Take 3 tablets by mouth daily at bedtime for 90 days. fexofenadine (SEFERINO) 180 mg tablet Take 1 tablet by mouth once daily. metFORMIN ER (GLUCOPHAGE XR) 500 mg 24 hr tablet TAKE 3 TABLETS DAILY WITH MEALS atorvastatin (LIPITOR) 20 mg tablet Take 1 tablet by mouth once daily. furosemide (LASIX) 20 mg tablet Take 1 tablet by mouth once daily. AUSTEDO 6 mg tab Take 6 mg by mouth twice daily. HYDROcodone-acetaminophen (NORCO) 5-325 mg per tablet Take 1 tablet by mouth at bedtime as needed for pain. Lancets lancets Test Four times a day. Insulin Dep? Yes E11.9 DM 2 blood sugar diagnostic (BLOOD GLUCOSE TEST) test strip Test Four times a day. Insulin Dep? Yes E11.9 DM 2 calcium carbonate 600 mg-cholecalciferol 200 units (CALCARB 600 WITH VITAMIN D) 600 mg(1,500mg) -200 unit tab Take 1 tablet by mouth twice daily. meloxicam (MOBIC) 15 mg tablet Take 1 tablet by mouth once daily. (Patient not taking: Reported on 05/08/2021 ) wheat dextrin (BENEFIBER SUGAR FREE, DEXTRIN,) 3 gram/4 gram powd 1/2 tablespoon per day x2 weeks. Then increase by 1/2 tablespoon every 2 weeks until you are taking 3 tablespoons per day in divided doses. polyethylene glycol 3350 (MIRALAX, GLYCOLAX) 17 gram/dose powder Take 17 g by mouth twice daily. Drink a mix of 1 scoop in 8oz of water/beverage once daily as needed for constipation. docusate sodium (COLACE) 100 mg capsule Take 1 capsule by mouth twice daily as needed for Constipation. COMPOUNDED PRESCRIPTION PORTABLE OXYGEN TANKS FOR USE IN BACK PACK USES 3 Lpm WHEN ON PORTABLE TANKto use with exertion DX R79.81 COMPOUNDED PRESCRIPTION EMERGENCY BACKUP OXYGEN TANK FOR WHEN PATIENT LOSES ELECTRICITY DX R79.81 CPAP Initiate AutoPAP @ 10/20 cm of water with EPR of 3 , humidification. Mask (per patient preference) optional chin strap (if indicated) , filters, tubing, humidifier and lifetime supplies. Dx. ARIANA 327.23 COMPOUNDED PRESCRIPTION Oxygen supplies dx: R79.81 R06.02 COMPOUNDED PRESCRIPTION CPAP supplies Dx: G47.33 COMPOUNDED PRESCRIPTION Home Oxygen, 2 litres with cpap machine Alosetron HCl 0.5 mg tablet Take 1 mg by mouth as directed. Taking 1 mg in the morning and 0.5 mg at dinner. Prescribed by Dr. Everton Whitman blood sugar diagnostic (ONETOUCH ULTRA TEST) test strip Test blood sugar(s) 4 times daily. Dx: Type2 DM - Uncontrolled E11.65 Insulin: Yes meclizine (ANTIVERT) 25 mg tab Take 1 tablet by mouth three times daily as needed (dizziness). insulin needles, DISPOSABLE, (ULTICARE PEN NEEDLE) 31 gauge x 5/16 ndle UAD to inject insulins 5 times daily. Lancets (ACCU-CHEK FASTCLIX) lancets With [employer] fastclix lancing device. Check sugars 4x/day Dx:e11.65 Insulin: Yes No current facility-administered medications for this visit. EXAM: Last 3 Encounter BP Readings: Date: BP: 06/04/2021 114/60 05/08/2021 130/76 03/08/2021 136/82 Wt: 124.3 kg (274 lb) BMI: 47.03 kg/(m^2) LABS: Lab Results Component Value Date HBA1C 7.0 11/15/2020 HBA1C 7.2 09/02/2020 HBA1C 8.2 06/03/2020 CMP: Glucose 130 11/15/2020 BUN 18 11/15/2020 Creatinine, Whole Blood (iSTAT) 0.64 11/15/2020 Sodium 140 11/15/2020 Potassium 4.5 11/15/2020 Chloride 99 11/15/2020 CO2 29 11/15/2020 Protein, Total 6.8 11/15/2020 Albumin 4.0 11/15/2020 Calcium 10.7 11/15/2020 Alkaline Phosphatase 61 11/15/2020 Bilirubin, Total 0.3 11/15/2020 AST 18 11/15/2020 ALT 17 11/15/2020 EGFR: >60 mL/min/1.73m2 Vitamin B12 Date Value Ref Range Status 06/03/2020 693 232 - 1,245 pg/mL Final Lab Results Component Value Date CHOL 138 11/15/2020 LDL 72 11/15/2020 HDL 45 11/15/2020 TG 103 11/15/2020 The 10-year ASCVD risk score (Bernejuan BURK Jr., et al., 2013) is: 6.8% Values used to calculate the score: Age: 66 years Sex: Female Is Non- : No Diabetic: Yes Tobacco smoker: No Systolic Blood Pressure: 114 mmHg Is BP treated: No HDL Cholesterol: 45 mg/dL Total Cholesterol: 138 mg/dL Albumin/Creat Ratio (mg/g) Date Value 08/21/2020 Not calculated PHARMACOTHERAPY ASSESSMENT/PLAN: 1. Uncontrolled type 2 diabetes mellitus with hyperglycemia (HCC) - ICD9: 250.02, ICD10: E11.65 A1c goal < 7%; almost at goal (last A1c 7.0%); SMBG elevated on current regimen; denies s/sx hypoglycemia; denies s/sx hyperglycemia; Pt has been holding insulin since bariatrics procedure. Readings have become elevated, therefor today will restart basal insulin at lower dose, will continue holding bolus insulin. Renal function and LFTs appropriate for continued use RESUME Toujeo at 12 units once daily in the morning Check your blood sugar every morning before eating or drinking anything (fasting blood sugar level). Adjust your insulin every 3 days as follows: If your blood sugar is above 129, INCREASE your insulin by 1 unit. If your blood sugar is 80-129, CONTINUE your current insulin dose. If your blood sugar is less than 80, DECREASE your insulin by 1 unit. Continue this method until you reach your target fasting blood sugar level consistently (80-130) RESUME metformin 500 mg 3 tabs daily CONTINUE Trulicity 4.5 mg weekly HOLD Humalog - TOUJEO SOLOSTAR U-300 INSULIN 300 UNIT/ML (1.5 ML) SUBCUTANEOUS PEN Follow up: Patient is scheduled to see PCP on 08/11/21. Patient to follow up with PharmD on 06/30/21. Patient verbalized understanding of instructions. Donis Harris PharmD, [facility] Primary Care Clinical Pharmacist [facility] The majority of the pharmacy visit (> 50%) was spent counseling and/or coordinating care for thepatient. [Face to Face] time was 25 minutes. documented in this encounterTr[facility]04-27-2022 Instructions* Patient Instructions* Donis Harris RPh - 06/11/2021 3:30 PM EDT RESUME Toujeo at 12 units once daily in the morning Check your blood sugar every morning before eating or drinking anything (fasting blood sugar level). Adjust your insulin every 3 days as follows: If your blood sugar is above 129, INCREASE your insulin by 1 unit. If your blood sugar is 80-129, CONTINUE your current insulin dose. If your blood sugar is less than 80, DECREASE your insulin by 1 unit. Continue this method until you reach your target fasting blood sugar level consistently (80-130) RESUME metformin 500 mg 3 tabs daily CONTINUE Trulicity 4.5 mg weekly HOLD Humalog documented in this encounterTrinity [facility]04-27-2022 Miscellaneous Notes* Telephone Encounter - Josee Porter LPN - 06/11/2021 11:19 AM EDT Patient has been identified by name and date of : Yes Patient phones for refill(s): Pending Prescriptions Disp Refills GABAPENTIN 600 MG TABLET 84 tablet Sig: TAKE 3 TABLETS BY MOUTH AT BEDTIME RONALD: Yes Date of last office visit in primary care: 06/04/21 Last 2 Encounter Wt Readings: Date: Wt: 06/04/2021 124.3 kg (274 lb) 05/08/2021 130.2 kg (287 lb) Previous labs/tests for medication: Diabetes: Hemoglobin A1C (%) Date Value 11/15/2020 7.0 09/02/2020 7.2 Please advise. Thank you. Josee Porter LPN documented in this encounterTrinity [facility]04-25-2022 Miscellaneous Notes* Telephone Encounter - Kailey Diamond Ma - 06/09/2021 2:42 PM EDT New RX was sent day of request. * Telephone Encounter - Inna Small APRN.CNP - 06/09/2021 7:43 AM EDT Please call patient to ask why this is being requested again. 9 months worth of prescription and refills was sent to [place] 2 months ago. Was there an issue? Does she need it sent to a different pharmacy? Thank you Inna Small APRN.CNP * Telephone Encounter - Divina Alcantara LPN - 06/06/2021 4:24 PM EDT Patient has been identified by name and date of : Yes Pharmacy phones for refill(s): Pending Prescriptions Disp Refills GABAPENTIN 600 MG TABLET 90 tablet 2 Sig: Take 3 tablets by mouth daily at bedtime for 90 days. RONALD: No Date of last office visit in primary care: 06/04/2021, has appt 08/11/2021 Last 2 Encounter Wt Readings: Date: Wt: 06/04/2021 124.3 kg (274 lb) 05/08/2021 130.2 kg (287 lb) Previous labs/tests for medication: Not applicable Please advise. Thank you. Divina Alcantara LPN documented in this encounterTrinity [facility]04-22-2022 Miscellaneous Notes* Telephone Encounter - Myriam Karimi RN - 06/06/2021 2:55 PM EDT Patient requesting the refill request for gabapentin from [facility] today be cancelled and ordered through [facility] in [place]. Pended for your review. Thank you. documented in this encounterTrinity Health [facility]04-20-2022 History of Present illness Narrative* Modesta Daley MD - 06/04/2021 11:30 AM EDT Reason for Visit Patient presents with: Established Patient: hospital follow up- gastric bipass 05/30/21 Melanie Bird is a 66 year old female who presents here today for Above Complaints.. Health Maintenance PAP TESTING HPV TESTING DIABETIC FOOT EXAM DEPRESSION SCREENING DILATED RETINAL EXAM HPI Had gastric bypass surgery a week ago, some soreness but getting better. She had 5 incisions and 4 of them are almost healed. Still liquid diet for 10 days and then Soft diet for 2 weeks. Both of these diets have been reviewed with the pt today. Below is not from the post op visit : Patient's weight decreased by: 20.8 lbs Protein requirements discussed. Patient to consume 65-75 grams daily. Fluid requirements discussed. Patient to consume 64 oz+ daily. Patient is aware that she must consume fluids 30 mintues before and after meals. Exercise activities discussed with the patient. She doeshave a plan for exercise when cleared. Patient advised that regular exercise is vital to a successful outcome following weight loss surgery. Behavioral/Emotional changes reviewed. Patient does feel comfortable with changes in eating behaviors and associated emotional changes. She was reminded that psychological counseling is available [facility] post-[facility]. Diabetes Mellitus: she has not been on any diabetic medications or insulin since the day before surgery. She is on nothing right now. She got a little bit of insulin while in the hospital. She is checking her sugars regularly and since the past 3 days she has been on the higher side Asked her to get back on metformin, at Noon and at 5 Pm. And to get back on the trulicity. 4.5. Her bp is normal. She is back on all other meds , except the water, Diabetes Mellitus medication and the acyclovir. She can go back on acyclovir in a months time. She is slowly walking around. She can only sit for 2 hours. No problem-specific Assessment & Plan notes found for this encounter. PAST MEDICAL HISTORY Diagnosis Date Depression Diabetes mellitus type 2, uncontrolled History of colon polyps History of gallstones IBS (irritable bowel syndrome) Obesity 04/25/2013 BMI 48.43 ARIANA (obstructive sleep apnea) 03/06/2013 Parkinson disease (HCC) PAST SURGICAL HISTORY Procedure Laterality Date ANAL SPHINCTEROPLASTY SPHINCTEROPLASTY ANAL W/ IMPLANT ARTIFICIAL SPHINCTER ADULT CATARACT EXTRACTION HX Bilateral 08/2012 COLONOSCOPY GEN ANES 04/2019 INCISE FINGER TENDON SHEATH 12/20/2012 Left 3rd trigger finger release PAST SURGICAL HISTORY OF 06/2012 Interstim PAST SURGICAL HISTORY OF Right trigger thumb REMOVAL GALLBLADDER 2001 FAMILY HISTORY Problem Relation Age of Onset Diabetes Father Heart Father Diabetes Mother Heart Mother Colon Cancer Sister Social History Tobacco Use Smoking status: Former Smoker Packs/day: 0.10 Years: 3.00 Pack years: 0.30 Quit date: 04/25/1988 Years since quittin.1 Smokeless tobacco: Never Used Tobacco comment: No smoking in childhood home. Roomate of last 10 years smoked while living with patient. Substance Use Topics Alcohol use: No Drug use: No Past medical history, appointments, medications, allergies reviewed. Pertinent Lab/Diagnostic Studies are reviewed and discussed today Current Outpatient Medications: sertraline (ZOLOFT) 50 mg tablet zolpidem (AMBIEN) 5 mg tablet omeprazole (PRILOSEC) 20 mg capsule insulin lispro (HUMALOG KWIKPEN INSULIN) 100 unit/mL flash glucose sensor (FREESTYLE IZABELLA 2 SENSOR) kit aspirin, enteric coated (ASPIRIN, ENTERIC COATED) 81 mg EC tablet insulin glargine U-300 conc (TOUJEO SOLOSTAR U-300 INSULIN) 300 unit/mL (1.5 mL) dulaglutide (TRULICITY) 4.5 mg/0.5 mL pen injector magnesium oxide (MAG-OX) 400 mg (241.3 mg magnesium) tablet gabapentin (NEURONTIN) 300 mg capsule ascorbic acid, vitamin C, (VITAMIN C) 500 mg tablet gabapentin (NEURONTIN) 600 mg tablet fexofenadine (SEFERINO) 180 mg tablet metFORMIN ER (GLUCOPHAGE XR) 500 mg 24 hr tablet atorvastatin (LIPITOR) 20 mg tablet furosemide (LASIX) 20 mg tablet AUSTEDO 6 mg tab HYDROcodone-acetaminophen (NORCO) 5-325 mg per tablet Lancets lancets blood sugar diagnostic (BLOOD GLUCOSE TEST) test strip calcium carbonate 600 mg-cholecalciferol 200 units (CALCARB 600 WITH VITAMIN D) 600 mg(1,500mg) -200 unit tab acyclovir (ZOVIRAX) 400 mg tablet rOPINIRole (REQUIP) 0.5 mg tablet Cholecalciferol, Vitamin D3, (VITAMIN D-3) 50 mcg (2,000 unit) cap meloxicam (MOBIC) 15 mg tablet wheat dextrin (BENEFIBER SUGAR FREE, DEXTRIN,) 3 gram/4 gram powd polyethylene glycol 3350 (MIRALAX, GLYCOLAX) 17 gram/dose powder docusate sodium (COLACE) 100 mg capsule COMPOUNDED PRESCRIPTION COMPOUNDED PRESCRIPTION CPAP COMPOUNDED PRESCRIPTION COMPOUNDED PRESCRIPTION COMPOUNDED PRESCRIPTION Alosetron HCl 0.5 mg tablet blood sugar diagnostic (ONETOUCH ULTRA TEST) test strip meclizine (ANTIVERT) 25 mg tab insulin needles, DISPOSABLE, (ULTICARE PEN NEEDLE) 31 gauge x 5/16 ndle Lancets (ACCU-CHEK FASTCLIX) lancets Review of Systems CONSTITUTIONAL: No fevers, chills night sweats, unintended weight loss CARDIOVASCULAR: No chest pain, dyspnea, palpitations, orthopnea, PND, ankle edema. PULM: No dyspnea, unexplained cough. GI: No dysphagia/odynophagia, problematic reflux, constipation, diarrhea, changes in stool habits, hematochezia, melena. : No new urinary complaints, including dysuria, gross hematuria or pyuria. NEURO: No new balance problems, peripheral weakness/paresthesias or numbness of concern. Physical Exam BP 114/60 (BP Site: Right Arm, BP Position: Sitting, BP Cuff Size: Large Adult) Pulse 79 Temp 36.2 C (97.2 F) Resp 16 Ht 162.6 cm (5' 4) Wt 124.3 kg (274 lb) LMP 04/10/2012 (Approximate) SpO2 93% BMI 47.03 kg/m General appearance: Well appearing, alert, in no acute distress, well nourished. Skin: Skin color, texture, turgor normal, no suspicious rashes or lesions Head: Normocephalic, no masses, lesions, tenderness or abnormalities Eyes: Anicteric sclera. Pupils are equally round and reactive to light. Extraocular movements are intact. Lungs: Lungs clear to auscultation. No wheezing, rhonchi, rales Heart: RRR without murmur, gallop, or rubs. Extremities: No deformities, edema, skin discoloration, clubbing or cyanosis. Good capillary refill. ASSESSMENT/PLAN: 1. Diabetes mellitus type 2 (HCC) - ICD9: 250.00, ICD10: E11.9 (primary diagnosis) Restarting the trulicity, and metformin for the next 2 weeks. Cont using the free style and get in with Keti for control of sugars She may need to restart some of her insulin 2. S/P gastric bypass - ICD9: V45.86, ICD10: Z98.84 3. Hyperlipidemia with target LDL less than 70 - ICD9: 272.4, ICD10: E78.5 Cont the statin medication. Modesta Daley MD documented in this encounterTrinity [facility]04-20-2022 Nurse Note* Josee Porter LPN - 06/04/2021 11:15 AM EDT Blood sugar this AM 300 documented in this encounterTrinity Health [facility]04-18-2022 Miscellaneous Notes* Telephone Encounter - Kailey Diamond Ma - 06/02/2021 10:00 AM EDT Spoke with patient, she will be coming in at 11. * Telephone Encounter - Inna Small APRN.SABINE - 06/02/2021 9:44 AM EDT Can you please try to reschedule one of the 20 min appts to allow for a 40min slot to be opened? Thank you Inna Small APRN.SABINE * Telephone Encounter - Neli Carr RN - 06/02/2021 9:18 AM EDT Pt called in and reports she just had bariatric surgery this past week. She states she is supposed to get in with provider about her diabetic medications, which she is taking none at this time. I wasgoing to schedule pt on 06/04/21 at 1120 am, but both Hospital Visits were only 20 min, someone had taken second half of appointment. I let Pt know that I would sent a message through to provider and have her call her back with time she could see her. Please call and advise. documented in this encounterTr[facility]-14-[facility]22 NotePatient ID: Melanie Bird Patient's PCP: Modesta Daley MD Admit Date: 05/28/2021 Discharge Date: 05/29/21 Admitting Physician: Jasbir Iyer MD Discharge Physician: Rob Lawson MD Active Discharge Diagnoses: Primary Problem Morbid obesity due to excess calories (HCC) Hospital Problems Active Hospital Problems Diagnosis Date Noted Obesity [E66.9] 05/28/2021 Gastroesophageal reflux disease without esophagitis [K21.9] Morbid obesity due to excess calories (HCC) [E66.01] The patient was seen and examined on day of discharge and this discharge summary is in conjunction with any daily progress note from day of discharge. Code Status: Full Code Hospital Course: Patient was admitted to [facility] with the chief complaint of obesity. Patient was taken to the operating room and under went a RYGB, HH repair. Patient progressed throughout hospitalization. On discharge, patient had stable vital signs, tolerating diet, ambulating, with pain controlled on PO pain medication. Patient has follow up appointments as specified below. Consult(s): None Procedure(s): None Disposition: Home Discharged Condition: Stable Follow Up: Modesta Daley MD [address] [facility] [address] Jasbir Iyer MD [address] [place] [address], [address] Critical access hospital [id number] Go on 06/03/2021 at 07:00am. Diet: Bariatric clears Discharge Medications: Medication List START taking these medications ondansetron 4 MG tablet Commonly known as: ZOFRAN Take 1 tablet by mouth every 4-6 hours as needed for Nausea or Vomiting oxyCODONE-acetaminophen 5-325 MG per tablet Commonly known as: Percocet Take 1 tablet by mouth every 6 hours as needed for Pain for up to 7 days. Intended supply: 7 days. Take lowest dose possible to manage pain CONTINUE taking these medications acyclovir 400 MG tablet Commonly known as: ZOVIRAX * alosetron 0.5 MG tablet Commonly known as: LOTRONEX * alosetron 1 MG tablet Commonly known as: LOTRONEX ascorbic acid 500 MG tablet Commonly known as: VITAMIN C aspirin 81 MG EC tablet atorvastatin 20 MG tablet Commonly known as: LIPITOR Austedo 6 MG tablet Generic drug: deutetrabenazine Benefiber Powd calcium carbonate-vitamin D 600-200 MG-UNIT Tabs Cholecalciferol 50 MCG (1999 UT) Caps CPAP Machine Misc fexofenadine 180 MG tablet Commonly known as: SEFERINO FreeStyle Izabella 14 Day [place] furosemide 20 MG tablet Commonly known as: LASIX * gabapentin 300 MG capsule Commonly known as: NEURONTIN * gabapentin 600 MG tablet Commonly known as: NEURONTIN glimepiride 4 MG tablet Commonly known as: AMARYL insulin lispro (1 Unit Dial) 100 UNIT/ML Sopn magnesium oxide 400 MG tablet Commonly known as: MAG-OX meloxicam 15 MG tablet Commonly known as: MOBIC metFORMIN 500 MG extended release tablet Commonly known as: GLUCOPHAGE-XR omeprazole 20 MG delayed release capsule Commonly known as: PriLOSEC Take 1 capsule by mouth daily rOPINIRole 0.5 MG tablet Commonly known as: REQUIP sertraline 50 MG tablet Commonly known as: ZOLOFT tolterodine 2 MG tablet Commonly known as: DETROL Toujeo SoloStar 300 UNIT/ML Sopn Generic drug: Insulin Glargine (1 Unit Dial) Trulicity 3 MG/0.5ML Sopn Generic drug: Dulaglutide * This list has 4 medication(s) that are the same as other medications prescribed for you. Read the directions carefully, and ask your doctor or other care provider to review them with you. Where to Get Your Medications These medications were sent to [facility] - [place], [place] - [address] - P [phone] - F [phone] [address] [place] [address] ondansetron 4 MG tablet oxyCODONE-acetaminophen 5-325 MG per tablet Thank you Dr. Modesta Daley MD for the opportunity to be involved in this patient's care.[facility]04-12-2022 Miscellaneous Notes* Telephone Encounter - Myriam Karimi RN - 05/27/2021 4:04 PM EDT Patient returned call and given provider's message below and patient verbalized understanding. Alexis Karimi RN * Telephone Encounter - Neli Carr RN - 05/27/2021 3:35 PM EDT Called and left a voicemail for the Patient to call back and ask for a nurse to receive the providers message. Neli Carr RN * Telephone Encounter - Rani Marsh MD - 05/27/2021 1:16 PM EDT If not having as much carbs with her liquid diet as would get from normal meals, would not take same amount of insulin. If not sure getting much carbs, may hold the supper insulin or cut it in half. Should have a source of glucose just in case of lows (glucolse tablets or clear juice) Should have some carbs to get through today though(do not think they meant to have her take only nocarb clears). Can take half her Toujeo today to keep sugars from climbing but also keep from having lows. * Telephone Encounter - Davina Murray LPN - 05/27/2021 1:10 PM EDT Pt reports she is on clear liquids today and has been drinking Gatorade zero that has no sugar. Pt reports so far sugars have been running good. Pt has asked in original message what she was supposedto do about Toujeo which she takes in the morning. Pt reports she has not taken any today because she hadn't heard back what to take. Pt was decreased from 60 units last week to 40 this week. Pt reports she is most concerned about supper insulin. Pt usually takes 14 units of insulin. Please review and advise. Davina Murray LPN * Telephone Encounter - Rani Marsh MD - 05/27/2021 12:29 PM EDT How are her sugars running? If well controlled, and able to eat normal meals today, should be able to take today's insulin doses as usual. If having issues with lows, can decrease mealtime insulin, especially support insulin. If not eating normal meals, find out what she is eating and how her sugars are doing. * Telephone Encounter - Kiki Farias LPN - 05/27/2021 9:28 AM EDT Pt called and states she is having Bariatric Surgery tomorrow 05-28-21. She forgot to call yesterdayto see how to take her insulin today 05-27-21. She is waiting to hear back. Listed below is what shenormally takes. insulin lispro - 4 units before breakfast 8 units before lunch 14 units before dinner (this was decreased last week from 16 units) Toujeo - 40 units every morning (this was decreased last week from 60 units) Regarding all her other medications, her surgeon has instructed her how to take them. Also regarding Insulin day of procedure she was instructed not to take any insulin till after her procedure and her surgeon will direct her after the surgery per pt. Pt's pcp is out of the office and this is beingdirected to the doctor youth corrections officer Dr. Marsh. Kiki Farias LPN documented in this encounterTr[facility]03-31-2022 Miscellaneous Notes* Telephone Encounter - Guillermina Mccormack LPN - 05/15/2021 3:12 PM EDT Patient notified. Verbalized understanding. * Telephone Encounter - Modesta Daley MD - 05/15/2021 2:56 PM EDT Thank you for update. I would like for her to cut down her lantus to 40 units daily and update up in a couple day * Telephone Encounter - Ameena Hodge RN - 05/15/2021 9:02 AM EDT Patient calls and states that since she has been on her liquid diet prior to the surgery that she is having her blood sugars have been running low. Yesterday's fasting blood sugar was 75 and today's fasting blood sugar is 64. Patient reports that she is having a hard time getting sugars to come up.Patient states that the highest her sugars have gone is 175 since starting her liquid diet. Please review and advise, Ameena Hodge RN documented in this encounterTr[facility]03-28-2022 History of Present illness Narrative* Nelida Aguirre MA - 05/12/2021 2:53 PM EDT POPULATION HEALTH NAVIGATION OUTREACH Action/FYI P/C to patient to address open care gaps, no answer. Left message for patient to return call. My Chart message sent. Pt identified by name and : NO Outreach Outcome/Action Unable to reach patient: Left message MyChart message sent Reason for Outreach Care Gap or Scheduling/Wellness visits Payer: Payor: [employer] / Plan: [employer] HMO / Product Type: HMO / Care Gap Reviewed:: Diabetic Eye Exam Reminder: Reminder note to check Health Maintenance for items below Health Maintenance items due: PAP TESTING due on 08/23/2014 HPV TESTING due on 08/23/2014 DIABETIC FOOT EXAM due on 09/20/2020 DEPRESSION SCREENING due on 04/15/2021 DILATED RETINAL EXAM due on 05/08/2021 Message Sent to Practice: No Navigation Signature: Nelida Aguirre MA May 12, 2021 2:54 PM documented in this encounterTrinity [facility]03-24-2022 History of Present illness Narrative* Modesta Daley MD - 05/08/2021 9:54 AM EDT Reason for Visit Patient presents with: F/U 3 months: Laparoscopic mary-en-y gsatric bypass 05/28/21, needs insulin needs decreased Melanie Bird is a 66 year old female who presents here today for Above Complaints.. Health Maintenance PAP TESTING HPV TESTING DIABETIC FOOT EXAM DEPRESSION SCREENING DILATED RETINAL EXAM HPI Having her gastric bypass on May 28, at [facility], Dr Jasbir iyer. She starts optifast supplements on Wednesday, and will cont on it till the . And on she is on clear liquids, and on she is on clear liquids. She has very clear instructions on what to eat and drink. She is looking forward to this with excitement and some anxiety. Patient notes her hba1c was 8 last week. Diuretic and insulin needs adjusted.... currently she is taking log insulin, 4-8-14. tujeo she is taking 62 units. For the short term any thing over 150 she ads one unit per 50. She is checking her sugars 4 times aday. It usually runs at 137. Especially in the afternoon and evening she has been running high as she has been eating alittle bit . Patient notes she wont be able to work for 4 weeks. She needs to hold lasix the day Before surgery. She has been to the neuro doctor and he continues her on the Austedo for her dyskinesias yes they do not wake her up in the morning not interfering with meals or hobbies. Recent MRI was not diagnostic for any other issues. Stable induced parkinsonism No problem-specific Assessment & Plan notes found for this encounter. PAST MEDICAL HISTORY Diagnosis Date Depression Diabetes mellitus type 2, uncontrolled History of colon polyps History of gallstones IBS (irritable bowel syndrome) Obesity 04/25/2013 BMI 48.43 ARIANA (obstructive sleep apnea) 03/06/2013 Parkinson disease (HCC) PAST SURGICAL HISTORY Procedure Laterality Date ANAL SPHINCTEROPLASTY SPHINCTEROPLASTY ANAL W/ IMPLANT ARTIFICIAL SPHINCTER ADULT CATARACT EXTRACTION HX Bilateral 08/2012 COLONOSCOPY GEN ANES 04/2019 INCISE FINGER TENDON SHEATH 12/20/2012 Left 3rd trigger finger release PAST SURGICAL HISTORY OF 06/2012 Interstim PAST SURGICAL HISTORY OF Right trigger thumb REMOVAL GALLBLADDER 2001 FAMILY HISTORY Problem Relation Age of Onset Diabetes Father Heart Father Diabetes Mother Heart Mother Colon Cancer Sister Social History Tobacco Use Smoking status: Former Smoker Packs/day: 0.10 Years: 3.00 Pack years: 0.30 Quit date: 04/25/1988 Years since quittin.0 Smokeless tobacco: Never Used Tobacco comment: No smoking in childhood home. Roomate of last 10 years smoked while living with patient. Substance Use Topics Alcohol use: No Drug use: No Past medical history, appointments, medications, allergies reviewed. Pertinent Lab/Diagnostic Studies are reviewed and discussed today Current Outpatient Medications: omeprazole (PRILOSEC) 20 mg capsule insulin lispro (HUMALOG KWIKPEN INSULIN) 100 unit/mL flash glucose sensor (FREESTYLE IZABELLA 2 SENSOR) kit insulin glargine U-300 conc (TOUJEO SOLOSTAR U-300 INSULIN) 300 unit/mL (1.5 mL) dulaglutide (TRULICITY) 4.5 mg/0.5 mL pen injector magnesium oxide (MAG-OX) 400 mg (241.3 mg magnesium) tablet gabapentin (NEURONTIN) 300 mg capsule ascorbic acid, vitamin C, (VITAMIN C) 500 mg tablet zolpidem (AMBIEN) 5 mg tablet gabapentin (NEURONTIN) 600 mg tablet fexofenadine (SEFERINO) 180 mg tablet metFORMIN ER (GLUCOPHAGE XR) 500 mg 24 hr tablet atorvastatin (LIPITOR) 20 mg tablet furosemide (LASIX) 20 mg tablet AUSTEDO 6 mg tab sertraline (ZOLOFT) 50 mg tablet HYDROcodone-acetaminophen (NORCO) 5-325 mg per tablet Lancets lancets blood sugar diagnostic (BLOOD GLUCOSE TEST) test strip calcium carbonate 600 mg-cholecalciferol 200 units (CALCARB 600 WITH VITAMIN D) 600 mg(1,500mg) -200 unit tab acyclovir (ZOVIRAX) 400 mg tablet rOPINIRole (REQUIP) 0.5 mg tablet Cholecalciferol, Vitamin D3, (VITAMIN D-3) 50 mcg (2,000 unit) cap wheat dextrin (BENEFIBER SUGAR FREE, DEXTRIN,) 3 gram/4 gram powd polyethylene glycol 3350 (MIRALAX, GLYCOLAX) 17 gram/dose powder docusate sodium (COLACE) 100 mg capsule COMPOUNDED PRESCRIPTION COMPOUNDED PRESCRIPTION CPAP COMPOUNDED PRESCRIPTION COMPOUNDED PRESCRIPTION COMPOUNDED PRESCRIPTION Alosetron HCl 0.5 mg tablet blood sugar diagnostic (ONETOUCH ULTRA TEST) test strip meclizine (ANTIVERT) 25 mg tab insulin needles, DISPOSABLE, (ULTICARE PEN NEEDLE) 31 gauge x 5/16 ndle Lancets (ACCU-CHEK FASTCLIX) lancets aspirin, enteric coated (ASPIRIN, ENTERIC COATED) 81 mg EC tablet meloxicam (MOBIC) 15 mg tablet Review of Systems CONSTITUTIONAL: No fevers, chills night sweats, unintended weight loss CARDIOVASCULAR: No chest pain, dyspnea, palpitations, orthopnea, PND, ankle edema. PULM: No dyspnea, unexplained cough. GI: No dysphagia/odynophagia, problematic reflux, constipation, diarrhea, changes in stool habits, hematochezia, melena. : No new urinary complaints, including dysuria, gross hematuria or pyuria. NEURO: No new balance problems, peripheral weakness/paresthesias or numbness of concern. Physical Exam BP 130/76 (BP Site: Left Arm, BP Position: Sitting, BP Cuff Size: Large Adult) Pulse 78 Resp 18 Wt 130.2 kg (287 lb) LMP 04/10/2012 (Approximate) SpO2 92% BMI 49.26 kg/m General appearance: Well appearing, alert, in no acute distress, well nourished. Skin: Skin color, texture, turgor normal, no suspicious rashes or lesions Head: Normocephalic, no masses, lesions, tenderness or abnormalities Eyes: Anicteric sclera. Pupils are equally round and reactive to light. Extraocular movements are intact. Lungs: Lungs clear to auscultation. No wheezing, rhonchi, rales Heart: RRR without murmur, gallop, or rubs. Extremities: No deformities, edema, skin discoloration, clubbing or cyanosis. Good capillary refill. ASSESSMENT/PLAN: 1. Obesity, Class III, BMI >= 40 (morbid obesity) ([facility]) E66.01 - ICD9: 278.01, ICD10: E66.01 He is finally getting her gastric bypass done 2. Diabetes mellitus type 2 (HCC) - ICD9: 250.00, ICD10: E11.9 On her Optifast meals she is going to keep sugar logs and what she is taking for insulin for 3 daysand report to us and we will tell her what to do the day of surgery and the day before surgery. 3. Hyperlipidemia with target LDL less than 70 - ICD9: 272.4, ICD10: E78.5 Stable on the statin 4. ARIANA (obstructive sleep apnea) - ICD9: 327.23, ICD10: G47.33 She is using her machine regularly Modesta Daley MD documented in this encounterTr[facility]08-13-2021 History of Present illness Narrative* Ligia Renee RT(R) - 09/27/2020 2:30 PM EDT Radiology Service Progress Note PATIENT NAME: Melanie Bird DATE OF SERVICE: September 27, 2020 TIME: 2:28 PM PATIENT IDENTITY VERIFICATION COMPLETED USING TWO (2) IDENTIFIERS: Name and Date of confirmedby patient verbally. FALL SCREENING: Has the patient had 2 falls in the last year or 1 fall with injury or currently using an Ambulatory Assistive Device (Walker, Cane, Wheelchair, Crutches, etc.)? No PATIENT GENDER DATA: Female. status: : No status: NO. PATIENT RELEVANT IMPLANT DATA REVIEWED: Yes RADIOLOGY DEPARTMENT: General X-ray: Exam(s) Completed: Lower Extremity X- Ray(s): Knee, AP / Lat / Tunne / Merchant Right and Wt. Bearing PERIPHERAL IV DATA: Not applicable SIGNED BY: RT Magdalena(R) September 27, 2020 2:28 PM documented in this encounterTrinity Health [facility] Campus07-20-2021 Hospital Discharge instructions* Instructions* She Tolbert RN - 09/03/2020 Upper GI Endoscopy: What to expect at home ACTIVITY: DO NOT DRIVE, OPERATE MACHINERY, OR DRINK ANY ALCOHOL TODAY. Avoid making critical decisions, signing legal documents, or performing any activity that requires alertness for the rest of the day. You may be bloated or have gas pains since air was introduced into the stomach for the procedure. You may need to pass the gas throughout the day. You may experience a mild sore throat. You may use an [id number] chloraseptic spray, gargle with warm salt water, or use throat lozenges. Notify your physician if this feeling lasts more than 48 hours. Rest the remainder of the day. You may resume normal activity tomorrow. You may return to work tomorrow. DIET: You may resume a normal diet unless notified or recommended by your physician. You may be eager to eat a large meal after fasting, but it is a good idea to start with light mealsand ease into solid foods the first day. (*) If your stomach is upset, try clear liquids and bland, low-fat foods like plain toast or rice. Drink plenty of fluids for the first 24 hours (unless your physician states otherwise). MEDICATION: Resume your normal home medications unless notified or recommended by your physician. If you take blood thinners (such as Coumadin, Eliquis, Plavix, Aspirin, etc.) or anti-inflammatory medications (Advil, Motrin, Aleve, etc.), ask your physician when you may resume these medications. FOLLOW-UP APPOINTMENT: Follow up with or call your physician as needed. When to call for help: Call your doctor IMMEDIATELY or seek medical care if you experience: Severe pain or vomiting Coughing up more than a teaspoon of blood You pass a large amount of tar-like stools Your belly is swollen and firm with severe pain A fever greater than 101 degrees Redness or swelling of arm from the IV site for more than 48 hours Sudden onset of chest pain or shortness of breath If you become extremely dizzy or pass out (lose consciousness) IF YOU ARE UNABLE TO REACH YOUR PHYSICIAN GO TO NEAREST EMERGENCY DEPARTMENT documented in this [facility] Work Phone: [phone] History of Past illness Narrative* Problem Noted Date Resolved Date Obesity, Class III, BMI >= 40 (morbid obesity) ( [facility]) E66.01 08/26/2016 07/08/2022 Last Assessment & Plan: Assessment: Body mass index is 40.17 kg/m . Post-operative pain 07/10/2016 08/12/2016 Hypomagnesemia 07/10/2016 07/10/2016 Full incontinence of feces 07/08/201607/10 Ankle instability 04/07/2016 08/12/2016 Posterior tibial tendonitis 04/07/201607/17 Trigger thumb of right hand 11/04/201507/17 Cramp in muscle 04/15/2015 08/12/2016 Primary insomnia 03/19/2015 08/12/2016 Last Assessment & Plan: Struggling with insomnia Pain in left knee 12/03/2014 08/12/2016 Overview: Patient has left knee pain , that got better with PT. Last Assessment & Plan: She is going for PT and now she feels better. significantly Weakness of left leg 11/04/2014 08/12/2016 Pain in joint, lower leg 02/19/2014 017 Tingling in extremities 10/11/2013 10/07/19 17 Overview: She is having tingling in her left thigh, that comes and goes. Going on for a couple months , but since the last 2 weeks she has been having it all the time. Last Assessment & Plan: She is having tingling in her left thigh, that comes and goes. Going on for a couple months , but since the last 2 weeks she has been having it all the time. Urgency of urination 03/09/2013 07/11/2013 Frequency of urination 03/09/2013 4 Last Assessment & Plan: Urinary incontinence is being followed and evaluated by Dr Vazquez, she is having some urodynamic studies done. i reveiwed Dr. Fernandez notes. Obesity 03/09/2013 10/06/2016 Overview: 04/25/13 BMI 48.43. Normal BMI 18.5-25, normal weight range of 112-150 pounds in a person 5 feet 5 inches tall. Last Assessment & Plan: Gaining weight since she has not been able to exercise due to her surgeries. Nausea 02/09/2013 08/12/2016 Last Assessment & Plan: Patient has some nausea recently, is on macrobid for suspected UTI, when she came in last week. Since all her tests are negative including urine culture.i am discontinuing that SOB (shortness of breath) on exertion 02/09/2013 08/12/2016 Last Assessment & Plan: The patient has SOB which was extensively evaluated, initially it was thought to be from asthma. After seeing the family consumer science teacher and all evaluation complete it was thought to from restriction of the lungs from her weight. She also has sleep apnea, needs oxygen bled into the cpap machine, as the desaturations at night time does not normalize with out bleeding oxygen in. Today we checked her oxygen , the results are below. resting with o2 at 3liters- 91% resting room air o2 sat- 90% activity room air o2 sat- 84% activity with nc at 3liters- 91% Urinary incontinence 02/09/2013 03/28/2013 Last Assessment & Plan: Patient is having the incontinence for a month. She is on vesicare but it does not help her. Prior to this she had some leakage and dribbling but it was never this bad. She has been having a lot of accidents in the last month. She is indeed a very complex patient and i would like to refer her to a Urologist so he can evaluate her bladder dynamics. Schizophrenia 01/04/2013 02/06/2014 Overview: Dr Delaney is her psychologist . Has not seen him for a year. Patient says that the diagnosis of schizophrenia was taken off the diagnosis. Last Assessment & Plan: Patients notes indicates, that she has schizophrenia. Has been on Thorazine, haldol and invega. These drugs gave her tardive dyskinesia. She was put on tetrabenzine for it, worked miracles with her and then she got some parkinson's like features. She couldn't even feed herself. She tried the medication twice. Currently she is not on any psychotic medications. Movement disorder 12/28/2012 08/12/2016 Last Assessment & Plan: Patient is here today, sitting in front of me, very restless, constantly moving her feet, knees, things, neck, in what looks like tardive dyskinesia. It happens 2/3 times a week continues for many hours before she can get Rest from it, she said starting or increasing doses of neurontin, have not made the episodes any worse. She can talk to us without a problem and although she looks very uncomfortable to me she says he is doing fine and this will just pass. She is on requip. And recently started on Gabapentin, we are decreasing her requip. She was on haldol many years ago she says for her depression. She says she has parkinsons and told me she is taking propranolol for it. I thinks she has not got it right. She does not know of any aggravating and relieving factors for these episodes. Wheezing 11/29/2012 08/12/2016 Last Assessment & Plan: Patient is audibly wheezing right now. She recently had asthmatic bronchitis and pneumonia, said she is prone to have it. had a course of levaquin. Steroids and bronchodilators. Schizoaffective disorder 11/15/2012 017 Overview: [facility], But [facility] it according to her. Last Assessment & Plan: [facility], But they changed it according to her. Parkinson disease 11/15/2012 12/03/2017 Overview: [facility] [place], [place] I went through a lot of DR. Cevallos notes from [facility]. he does not seem to think she has parkinson's. She had drug induced parkinson's like symptoms that resolved when she stopped taking the inciting medications. Last Assessment & Plan: She will send me a note from him of his latest assessment. documented as of this encounter (statuses as of 07/22/2022) [facility] History of Past illness Narrative* Problem Noted Date Resolved Date Obesity, Class III, BMI >= 40 (morbid obesity) ( [facility]) E66.01 08/26/2016 07/08/2022 Last Assessment & Plan: Assessment: Body mass index is 40.17 kg/m . Post-operative pain 07/10/2016 08/12/2016 Hypomagnesemia 07/10/2016 07/10/2016 Full incontinence of feces 07/08/201607/10 Ankle instability 04/07/2016 08/12/2016 Posterior tibial tendonitis 04/07/201607/17 Trigger thumb of right hand 11/04/201507/17 Cramp in muscle 04/15/2015 08/12/2016 Primary insomnia 03/19/2015 08/12/2016 Last Assessment & Plan: Struggling with insomnia Pain in left knee 12/03/2014 08/12/2016 Overview: Patient has left knee pain , that got better with PT. Last Assessment & Plan: She is going for PT and now she feels better. significantly Weakness of left leg 11/04/2014 08/12/2016 Pain in joint, lower leg 02/19/2014 017 Tingling in extremities 10/11/2013 10/07/19 17 Overview: She is having tingling in her left thigh, that comes and goes. Going on for a couple months , but since the last 2 weeks she has been having it all the time. Last Assessment & Plan: She is having tingling in her left thigh, that comes and goes. Going on for a couple months , but since the last 2 weeks she has been having it all the time. Urgency of urination 03/09/2013 07/11/2013 Frequency of urination 03/09/2013 4 Last Assessment & Plan: Urinary incontinence is being followed and evaluated by Dr Vazquez, she is having some urodynamic studies done. i reveiwed Dr. Fernandez notes. Obesity 03/09/2013 10/06/2016 Overview: 04/25/13 BMI 48.43. Normal BMI 18.5-25, normal weight range of 112-150 pounds in a person 5 feet 5 inches tall. Last Assessment & Plan: Gaining weight since she has not been able to exercise due to her surgeries. Nausea 02/09/2013 08/12/2016 Last Assessment & Plan: Patient has some nausea recently, is on macrobid for suspected UTI, when she came in last week. Since all her tests are negative including urine culture.i am discontinuing that SOB (shortness of breath) on exertion 02/09/2013 08/12/2016 Last Assessment & Plan: The patient has SOB which was extensively evaluated, initially it was thought to be from asthma. After seeing the family consumer science teacher and all evaluation complete it was thought to from restriction of the lungs from her weight. She also has sleep apnea, needs oxygen bled into the cpap machine, as the desaturations at night time does not normalize with out bleeding oxygen in. Today we checked her oxygen , the results are below. resting with o2 at 3liters- 91% resting room air o2 sat- 90% activity room air o2 sat- 84% activity with nc at 3liters- 91% Urinary incontinence 02/09/2013 03/28/2013 Last Assessment & Plan: Patient is having the incontinence for a month. She is on vesicare but it does not help her. Prior to this she had some leakage and dribbling but it was never this bad. She has been having a lot of accidents in the last month. She is indeed a very complex patient and i would like to refer her to a Urologist so he can evaluate her bladder dynamics. Schizophrenia 01/04/2013 02/06/2014 Overview: Dr Delaney is her psychologist . Has not seen him for a year. Patient says that the diagnosis of schizophrenia was taken off the diagnosis. Last Assessment & Plan: Patients notes indicates, that she has schizophrenia. Has been on Thorazine, haldol and invega. These drugs gave her tardive dyskinesia. She was put on tetrabenzine for it, worked miracles with her and then she got some parkinson's like features. She couldn't even feed herself. She tried the medication twice. Currently she is not on any psychotic medications. Movement disorder 12/28/2012 08/12/2016 Last Assessment & Plan: Patient is here today, sitting in front of me, very restless, constantly moving her feet, knees, things, neck, in what looks like tardive dyskinesia. It happens 2/3 times a week continues for many hours before she can get Rest from it, she said starting or increasing doses of neurontin, have not made the episodes any worse. She can talk to us without a problem and although she looks very uncomfortable to me she says he is doing fine and this will just pass. She is on requip. And recently started on Gabapentin, we are decreasing her requip. She was on haldol many years ago she says for her depression. She says she has parkinsons and told me she is taking propranolol for it. I thinks she has not got it right. She does not know of any aggravating and relieving factors for these episodes. Wheezing 11/29/2012 08/12/2016 Last Assessment & Plan: Patient is audibly wheezing right now. She recently had asthmatic bronchitis and pneumonia, said she is prone to have it. had a course of levaquin. Steroids and bronchodilators. Schizoaffective disorder 11/15/2012 017 Overview: [facility] But [facility] it according to her. Last Assessment & Plan: [facility], But they changed it according to her. Parkinson disease 11/15/2012 12/03/2017 Overview: Radha [place], [place] I went through a lot of DR. Cevallos [facility]. he does not seem to think she has parkinson's. She had drug induced parkinson's like symptoms that resolved when she stopped taking the inciting medications. Last Assessment & Plan: She will send me a note from him of his latest assessment. documented as of this encounter (statuses as of 07/22/2022) [facility]2017 History of Past illness Narrative* Problem Noted Date Resolved Date Obesity, Class III, BMI >= 40 (morbid obesity) ( [facility]) E66.01 08/26/2016 07/08/2022 Last Assessment & Plan: Assessment: Body mass index is 40.17 kg/m . Post-operative pain 07/10/2016 08/12/2016 Hypomagnesemia 07/10/2016 07/10/2016 Full incontinence of feces 07/08/201607/10 Ankle instability 04/07/2016 08/12/2016 Posterior tibial tendonitis 04/07/201607/17 Trigger thumb of right hand 11/04/201507/17 Cramp in muscle 04/15/2015 08/12/2016 Primary insomnia 03/19/2015 08/12/2016 Last Assessment & Plan: Struggling with insomnia Pain in left knee 12/03/2014 08/12/2016 Overview: Patient has left knee pain , that got better with PT. Last Assessment & Plan: She is going for PT and now she feels better. significantly Weakness of left leg 11/04/2014 08/12/2016 Pain in joint, lower leg 02/19/2014 017 Tingling in extremities 10/11/2013 10/07/19 17 Overview: She is having tingling in her left thigh, that comes and goes. Going on for a couple months , but since the last 2 weeks she has been having it all the time. Last Assessment & Plan: She is having tingling in her left thigh, that comes and goes. Going on for a couple months , but since the last 2 weeks she has been having it all the time. Urgency of urination 03/09/2013 07/11/2013 Frequency of urination 03/09/2013 4 Last Assessment & Plan: Urinary incontinence is being followed and evaluated by Dr Vazquez, she is having some urodynamic studies done. i reveiwed Dr. Fernandez notes. Obesity 03/09/2013 10/06/2016 Overview: 04/25/13 BMI 48.43. Normal BMI 18.5-25, normal weight range of 112-150 pounds in a person 5 feet 5 inches tall. Last Assessment & Plan: Gaining weight since she has not been able to exercise due to her surgeries. Nausea 02/09/2013 08/12/2016 Last Assessment & Plan: Patient has some nausea recently, is on macrobid for suspected UTI, when she came in last week. Since all her tests are negative including urine culture.i am discontinuing that SOB (shortness of breath) on exertion 02/09/2013 08/12/2016 Last Assessment & Plan: The patient has SOB which was extensively evaluated, initially it was thought to be from asthma. After seeing the family consumer science teacher and all evaluation complete it was thought to from restriction of the lungs from her weight. She also has sleep apnea, needs oxygen bled into the cpap machine, as the desaturations at night time does not normalize with out bleeding oxygen in. Today we checked her oxygen , the results are below. resting with o2 at 3liters- 91% resting room air o2 sat- 90% activity room air o2 sat- 84% activity with nc at 3liters- 91% Urinary incontinence 02/09/2013 03/28/2013 Last Assessment & Plan: Patient is having the incontinence for a month. She is on vesicare but it does not help her. Prior to this she had some leakage and dribbling but it was never this bad. She has been having a lot of accidents in the last month. She is indeed a very complex patient and i would like to refer her to a Urologist so he can evaluate her bladder dynamics. Schizophrenia 01/04/2013 02/06/2014 Overview: Dr Delaney is her psychologist . Has not seen him for a year. Patient says that the diagnosis of schizophrenia was taken off the diagnosis. Last Assessment & Plan: Patients notes indicates, that she has schizophrenia. Has been on Thorazine, haldol and invega. These drugs gave her tardive dyskinesia. She was put on tetrabenzine for it, worked miracles with her and then she got some parkinson's like features. She couldn't even feed herself. She tried the medication twice. Currently she is not on any psychotic medications. Movement disorder 12/28/2012 08/12/2016 Last Assessment & Plan: Patient is here today, sitting in front of me, very restless, constantly moving her feet, knees, things, neck, in what looks like tardive dyskinesia. It happens 2/3 times a week continues for many hours before she can get Rest from it, she said starting or increasing doses of neurontin, have not made the episodes any worse. She can talk to us without a problem and although she looks very uncomfortable to me she says he is doing fine and this will just pass. She is on requip. And recently started on Gabapentin, we are decreasing her requip. She was on haldol many years ago she says for her depression. She says she has parkinsons and told me she is taking propranolol for it. I thinks she has not got it right. She does not know of any aggravating and relieving factors for these episodes. Wheezing 11/29/2012 08/12/2016 Last Assessment & Plan: Patient is audibly wheezing right now. She recently had asthmatic bronchitis and pneumonia, said she is prone to have it. had a course of levaquin. Steroids and bronchodilators. Schizoaffective disorder 11/15/2012 017 Overview: [facility], But [facility] it according to her. Last Assessment & Plan: [facility], But they changed it according to her. Parkinson disease 11/15/2012 12/03/2017 Overview: Radha [place], [place] I went through a lot of DR. Cevallos notes from [facility]. he does not seem to think she has parkinson's. She had drug induced parkinson's like symptoms that resolved when she stopped taking the inciting medications. Last Assessment & Plan: She will send me a note from him of his latest assessment. documented as of this encounter (statuses as of 07/31/2022) [facility]2017 History of Past illness Narrative* Problem Noted Date Resolved Date Obesity, Class III, BMI >= 40 (morbid obesity) ( [facility]) E66.01 08/26/2016 07/08/2022 Last Assessment & Plan: Assessment: Body mass index is 40.17 kg/m . Post-operative pain 07/10/2016 08/12/2016 Hypomagnesemia 07/10/2016 07/10/2016 Full incontinence of feces 07/08/201607/10 Ankle instability 04/07/2016 08/12/2016 Posterior tibial tendonitis 04/07/201607/17 Trigger thumb of right hand 11/04/201507/17 Cramp in muscle 04/15/2015 08/12/2016 Primary insomnia 03/19/2015 08/12/2016 Last Assessment & Plan: Struggling with insomnia Pain in left knee 12/03/2014 08/12/2016 Overview: Patient has left knee pain , that got better with PT. Last Assessment & Plan: She is going for PT and now she feels better. significantly Weakness of left leg 11/04/2014 08/12/2016 Pain in joint, lower leg 02/19/2014 017 Tingling in extremities 10/11/2013 10/07/19 17 Overview: She is having tingling in her left thigh, that comes and goes. Going on for a couple months , but since the last 2 weeks she has been having it all the time. Last Assessment & Plan: She is having tingling in her left thigh, that comes and goes. Going on for a couple months , but since the last 2 weeks she has been having it all the time. Urgency of urination 03/09/2013 07/11/2013 Frequency of urination 03/09/2013 4 Last Assessment & Plan: Urinary incontinence is being followed and evaluated by Dr Vazquez, she is having some urodynamic studies done. i reveiwed Dr. Fernandez notes. Obesity 03/09/2013 10/06/2016 Overview: 04/25/13 BMI 48.43. Normal BMI 18.5-25, normal weight range of 112-150 pounds in a person 5 feet 5 inches tall. Last Assessment & Plan: Gaining weight since she has not been able to exercise due to her surgeries. Nausea 02/09/2013 08/12/2016 Last Assessment & Plan: Patient has some nausea recently, is on macrobid for suspected UTI, when she came in last week. Since all her tests are negative including urine culture.i am discontinuing that SOB (shortness of breath) on exertion 02/09/2013 08/12/2016 Last Assessment & Plan: The patient has SOB which was extensively evaluated, initially it was thought to be from asthma. After seeing the family consumer science teacher and all evaluation complete it was thought to from restriction of the lungs from her weight. She also has sleep apnea, needs oxygen bled into the cpap machine, as the desaturations at night time does not normalize with out bleeding oxygen in. Today we checked her oxygen , the results are below. resting with o2 at 3liters- 91% resting room air o2 sat- 90% activity room air o2 sat- 84% activity with nc at 3liters- 91% Urinary incontinence 02/09/2013 03/28/2013 Last Assessment & Plan: Patient is having the incontinence for a month. She is on vesicare but it does not help her. Prior to this she had some leakage and dribbling but it was never this bad. She has been having a lot of accidents in the last month. She is indeed a very complex patient and i would like to refer her to a Urologist so he can evaluate her bladder dynamics. Schizophrenia 01/04/2013 02/06/2014 Overview: Dr Delaney is her psychologist . Has not seen him for a year. Patient says that the diagnosis of schizophrenia was taken off the diagnosis. Last Assessment & Plan: Patients notes indicates, that she has schizophrenia. Has been on Thorazine, haldol and invega. These drugs gave her tardive dyskinesia. She was put on tetrabenzine for it, worked miracles with her and then she got some parkinson's like features. She couldn't even feed herself. She tried the medication twice. Currently she is not on any psychotic medications. Movement disorder 12/28/2012 08/12/2016 Last Assessment & Plan: Patient is here today, sitting in front of me, very restless, constantly moving her feet, knees, things, neck, in what looks like tardive dyskinesia. It happens 2/3 times a week continues for many hours before she can get Rest from it, she said starting or increasing doses of neurontin, have not made the episodes any worse. She can talk to us without a problem and although she looks very uncomfortable to me she says he is doing fine and this will just pass. She is on requip. And recently started on Gabapentin, we are decreasing her requip. She was on haldol many years ago she says for her depression. She says she has parkinsons and told me she is taking propranolol for it. I thinks she has not got it right. She does not know of any aggravating and relieving factors for these episodes. Wheezing 11/29/2012 08/12/2016 Last Assessment & Plan: Patient is audibly wheezing right now. She recently had asthmatic bronchitis and pneumonia, said she is prone to have it. had a course of levaquin. Steroids and bronchodilators. Schizoaffective disorder 11/15/2012 017 Overview: [facility] But [facility] it according to her. Last Assessment & Plan: [facility], But they changed it according to her. Parkinson disease 11/15/2012 12/03/2017 Overview: [place], [place] I went through a lot of DR. Cevallos [facility]. he does not seem to think she has parkinson's. She had drug induced parkinson's like symptoms that resolved when she stopped taking the inciting medications. Last Assessment & Plan: She will send me a note from him of his latest assessment. documented as of this encounter (statuses as of 08/04/2022) [facility]2017 History of Past illness Narrative* Problem Noted Date Resolved Date Obesity, Class III, BMI >= 40 (morbid obesity) ( [facility]) E66.01 08/26/2016 07/08/2022 Last Assessment & Plan: Assessment: Body mass index is 40.17 kg/m . Post-operative pain 07/10/2016 08/12/2016 Hypomagnesemia 07/10/2016 07/10/2016 Full incontinence of feces 07/08/201607/10 Ankle instability 04/07/2016 08/12/2016 Posterior tibial tendonitis 04/07/201607/17 Trigger thumb of right hand 11/04/201507/17 Cramp in muscle 04/15/2015 08/12/2016 Primary insomnia 03/19/2015 08/12/2016 Last Assessment & Plan: Struggling with insomnia Pain in left knee 12/03/2014 08/12/2016 Overview: Patient has left knee pain , that got better with PT. Last Assessment & Plan: She is going for PT and now she feels better. significantly Weakness of left leg 11/04/2014 08/12/2016 Pain in joint, lower leg 02/19/2014 017 Tingling in extremities 10/11/2013 10/07/19 17 Overview: She is having tingling in her left thigh, that comes and goes. Going on for a couple months , but since the last 2 weeks she has been having it all the time. Last Assessment & Plan: She is having tingling in her left thigh, that comes and goes. Going on for a couple months , but since the last 2 weeks she has been having it all the time. Urgency of urination 03/09/2013 07/11/2013 Frequency of urination 03/09/2013 4 Last Assessment & Plan: Urinary incontinence is being followed and evaluated by Dr Vazquez, she is having some urodynamic studies done. i reveiwed Dr. Fernandez notes. Obesity 03/09/2013 10/06/2016 Overview: 04/25/13 BMI 48.43. Normal BMI 18.5-25, normal weight range of 112-150 pounds in a person 5 feet 5 inches tall. Last Assessment & Plan: Gaining weight since she has not been able to exercise due to her surgeries. Nausea 02/09/2013 08/12/2016 Last Assessment & Plan: Patient has some nausea recently, is on macrobid for suspected UTI, when she came in last week. Since all her tests are negative including urine culture.i am discontinuing that SOB (shortness of breath) on exertion 02/09/2013 08/12/2016 Last Assessment & Plan: The patient has SOB which was extensively evaluated, initially it was thought to be from asthma. After seeing the family consumer science teacher and all evaluation complete it was thought to from restriction of the lungs from her weight. She also has sleep apnea, needs oxygen bled into the cpap machine, as the desaturations at night time does not normalize with out bleeding oxygen in. Today we checked her oxygen , the results are below. resting with o2 at 3liters- 91% resting room air o2 sat- 90% activity room air o2 sat- 84% activity with nc at 3liters- 91% Urinary incontinence 02/09/2013 03/28/2013 Last Assessment & Plan: Patient is having the incontinence for a month. She is on vesicare but it does not help her. Prior to this she had some leakage and dribbling but it was never this bad. She has been having a lot of accidents in the last month. She is indeed a very complex patient and i would like to refer her to a Urologist so he can evaluate her bladder dynamics. Schizophrenia 01/04/2013 02/06/2014 Overview: Dr Delaney is her psychologist . Has not seen him for a year. Patient says that the diagnosis of schizophrenia was taken off the diagnosis. Last Assessment & Plan: Patients notes indicates, that she has schizophrenia. Has been on Thorazine, haldol and invega. These drugs gave her tardive dyskinesia. She was put on tetrabenzine for it, worked miracles with her and then she got some parkinson's like features. She couldn't even feed herself. She tried the medication twice. Currently she is not on any psychotic medications. Movement disorder 12/28/2012 08/12/2016 Last Assessment & Plan: Patient is here today, sitting in front of me, very restless, constantly moving her feet, knees, things, neck, in what looks like tardive dyskinesia. It happens 2/3 times a week continues for many hours before she can get Rest from it, she said starting or increasing doses of neurontin, have not made the episodes any worse. She can talk to us without a problem and although she looks very uncomfortable to me she says he is doing fine and this will just pass. She is on requip. And recently started on Gabapentin, we are decreasing her requip. She was on haldol many years ago she says for her depression. She says she has parkinsons and told me she is taking propranolol for it. I thinks she has not got it right. She does not know of any aggravating and relieving factors for these episodes. Wheezing 11/29/2012 08/12/2016 Last Assessment & Plan: Patient is audibly wheezing right now. She recently had asthmatic bronchitis and pneumonia, said she is prone to have it. had a course of levaquin. Steroids and bronchodilators. Schizoaffective disorder 11/15/2012 017 Overview: [facility] But [facility] it according to her. Last Assessment & Plan: [facility], But they changed it according to her. Parkinson disease 11/15/2012 12/03/2017 Overview: [place], [place] I went through a lot of [facility]. [facility]evallos [facility]. he does not seem to think she has parkinson's. She had drug induced parkinson's like symptoms that resolved when she stopped taking the inciting medications. Last Assessment & Plan: She will send me a note from him of his latest assessment. documented as of this encounter (statuses as of 08/07/2022) [facility]2017 History of Past illness Narrative* Problem Noted Date Resolved Date Obesity, Class III, BMI >= 40 (morbid obesity) ( [facility]) E66.01 08/26/2016 07/08/2022 Last Assessment & Plan: Assessment: Body mass index is 40.17 kg/m . Post-operative pain 07/10/2016 08/12/2016 Hypomagnesemia 07/10/2016 07/10/2016 Full incontinence of feces 07/08/201607/10 Ankle instability 04/07/2016 08/12/2016 Posterior tibial tendonitis 04/07/201607/17 Trigger thumb of right hand 11/04/201507/17 Cramp in muscle 04/15/2015 08/12/2016 Primary insomnia 03/19/2015 08/12/2016 Last Assessment & Plan: Struggling with insomnia Pain in left knee 12/03/2014 08/12/2016 Overview: Patient has left knee pain , that got better with PT. Last Assessment & Plan: She is going for PT and now she feels better. significantly Weakness of left leg 11/04/2014 08/12/2016 Pain in joint, lower leg 02/19/2014 017 Tingling in extremities 10/11/2013 10/07/19 17 Overview: She is having tingling in her left thigh, that comes and goes. Going on for a couple months , but since the last 2 weeks she has been having it all the time. Last Assessment & Plan: She is having tingling in her left thigh, that comes and goes. Going on for a couple months , but since the last 2 weeks she has been having it all the time. Urgency of urination 03/09/2013 07/11/2013 Frequency of urination 03/09/2013 4 Last Assessment & Plan: Urinary incontinence is being followed and evaluated by Dr Vazquez, she is having some urodynamic studies done. i reveiwed Dr. Fernandez notes. Obesity 03/09/2013 10/06/2016 Overview: 04/25/13 BMI 48.43. Normal BMI 18.5-25, normal weight range of 112-150 pounds in a person 5 feet 5 inches tall. Last Assessment & Plan: Gaining weight since she has not been able to exercise due to her surgeries. Nausea 02/09/2013 08/12/2016 Last Assessment & Plan: Patient has some nausea recently, is on macrobid for suspected UTI, when she came in last week. Since all her tests are negative including urine culture.i am discontinuing that SOB (shortness of breath) on exertion 02/09/2013 08/12/2016 Last Assessment & Plan: The patient has SOB which was extensively evaluated, initially it was thought to be from asthma. After seeing the family consumer science teacher and all evaluation complete it was thought to from restriction of the lungs from her weight. She also has sleep apnea, needs oxygen bled into the cpap machine, as the desaturations at night time does not normalize with out bleeding oxygen in. Today we checked her oxygen , the results are below. resting with o2 at 3liters- 91% resting room air o2 sat- 90% activity room air o2 sat- 84% activity with nc at 3liters- 91% Urinary incontinence 02/09/2013 03/28/2013 Last Assessment & Plan: Patient is having the incontinence for a month. She is on vesicare but it does not help her. Prior to this she had some leakage and dribbling but it was never this bad. She has been having a lot of accidents in the last month. She is indeed a very complex patient and i would like to refer her to a Urologist so he can evaluate her bladder dynamics. Schizophrenia 01/04/2013 02/06/2014 Overview: Dr Delaney is her psychologist . Has not seen him for a year. Patient says that the diagnosis of schizophrenia was taken off the diagnosis. Last Assessment & Plan: Patients notes indicates, that she has schizophrenia. Has been on Thorazine, haldol and invega. These drugs gave her tardive dyskinesia. She was put on tetrabenzine for it, worked miracles with her and then she got some parkinson's like features. She couldn't even feed herself. She tried the medication twice. Currently she is not on any psychotic medications. Movement disorder 12/28/2012 08/12/2016 Last Assessment & Plan: Patient is here today, sitting in front of me, very restless, constantly moving her feet, knees, things, neck, in what looks like tardive dyskinesia. It happens 2/3 times a week continues for many hours before she can get Rest from it, she said starting or increasing doses of neurontin, have not made the episodes any worse. She can talk to us without a problem and although she looks very uncomfortable to me she says he is doing fine and this will just pass. She is on requip. And recently started on Gabapentin, we are decreasing her requip. She was on haldol many years ago she says for her depression. She says she has parkinsons and told me she is taking propranolol for it. I thinks she has not got it right. She does not know of any aggravating and relieving factors for these episodes. Wheezing 11/29/2012 08/12/2016 Last Assessment & Plan: Patient is audibly wheezing right now. She recently had asthmatic bronchitis and pneumonia, said she is prone to have it. had a course of levaquin. Steroids and bronchodilators. Schizoaffective disorder 11/15/2012 017 Overview: [facility] But [facility] it according to her. Last Assessment & Plan: [facility], But they changed it according to her. Parkinson disease 11/15/2012 12/03/2017 Overview: Radha [place], [place] I went through a lot of DR. Cevallos notes [facility]. he does not seem to think she has parkinson's. She had drug induced parkinson's like symptoms that resolved when she stopped taking the inciting medications. Last Assessment & Plan: She will send me a note from him of his latest assessment. documented as of this encounter (statuses as of 08/13/2022) [facility]07-[facility]2017 History of Past illness Narrative* Problem Noted Date Resolved Date Obesity, Class III, BMI >= 40 (morbid obesity) ( [facility]) E66.01 08/26/2016 07/08/2022 Last Assessment & Plan: Assessment: Body mass index is 40.17 kg/m . Post-operative pain 07/10/2016 08/12/2016 Hypomagnesemia 07/10/2016 07/10/2016 Full incontinence of feces 07/08/201607/10 Ankle instability 04/07/2016 08/12/2016 Posterior tibial tendonitis 04/07/201607/17 Trigger thumb of right hand 11/04/201507/17 Cramp in muscle 04/15/2015 08/12/2016 Primary insomnia 03/19/2015 08/12/2016 Last Assessment & Plan: Struggling with insomnia Pain in left knee 12/03/2014 08/12/2016 Overview: Patient has left knee pain , that got better with PT. Last Assessment & Plan: She is going for PT and now she feels better. significantly Weakness of left leg 11/04/2014 08/12/2016 Pain in joint, lower leg 02/19/2014 017 Tingling in extremities 10/11/2013 10/07/19 17 Overview: She is having tingling in her left thigh, that comes and goes. Going on for a couple months , but since the last 2 weeks she has been having it all the time. Last Assessment & Plan: She is having tingling in her left thigh, that comes and goes. Going on for a couple months , but since the last 2 weeks she has been having it all the time. Urgency of urination 03/09/2013 07/11/2013 Frequency of urination 03/09/2013 05/27/201 4 Last Assessment & Plan: Urinary incontinence is being followed and evaluated by Dr Vazquez, she is having some urodynamic studies done. i reveiwed Dr. Fernandez notes. Obesity 03/09/2013 10/06/2016 Overview: 04/25/13 BMI 48.43. Normal BMI 18.5-25, normal weight range of 112-150 pounds in a person 5 feet 5 inches tall. Last Assessment & Plan: Gaining weight since she has not been able to exercise due to her surgeries. Nausea 02/09/2013 08/12/2016 Last Assessment & Plan: Patient has some nausea recently, is on macrobid for suspected UTI, when she came in last week. Since all her tests are negative including urine culture.i am discontinuing that SOB (shortness of breath) on exertion 02/09/2013 08/12/2016 Last Assessment & Plan: The patient has SOB which was extensively evaluated, initially it was thought to be from asthma. After seeing the family consumer science teacher and all evaluation complete it was thought to from restriction of the lungs from her weight. She also has sleep apnea, needs oxygen bled into the cpap machine, as the desaturations at night time does not normalize with out bleeding oxygen in. Today we checked her oxygen , the results are below. resting with o2 at 3liters- 91% resting room air o2 sat- 90% activity room air o2 sat- 84% activity with nc at 3liters- 91% Urinary incontinence 02/09/2013 03/28/2013 Last Assessment & Plan: Patient is having the incontinence for a month. She is on vesicare but it does not help her. Prior to this she had some leakage and dribbling but it was never this bad. She has been having a lot of accidents in the last month. She is indeed a very complex patient and i would like to refer her to a Urologist so he can evaluate her bladder dynamics. Schizophrenia 01/04/2013 02/06/2014 Overview: Dr Delaney is her psychologist . Has not seen him for a year. Patient says that the diagnosis of schizophrenia was taken off the diagnosis. Last Assessment & Plan: Patients notes indicates, that she has schizophrenia. Has been on Thorazine, haldol and invega. These drugs gave her tardive dyskinesia. She was put on tetrabenzine for it, worked miracles with her and then she got some parkinson's like features. She couldn't even feed herself. She tried the medication twice. Currently she is not on any psychotic medications. Movement disorder 12/28/2012 08/12/2016 Last Assessment & Plan: Patient is here today, sitting in front of me, very restless, constantly moving her feet, knees, things, neck, in what looks like tardive dyskinesia. It happens 2/3 times a week continues for many hours before she can get Rest from it, she said starting or increasing doses of neurontin, have not made the episodes any worse. She can talk to us without a problem and although she looks very uncomfortable to me she says he is doing fine and this will just pass. She is on requip. And recently started on Gabapentin, we are decreasing her requip. She was on haldol many years ago she says for her depression. She says she has parkinsons and told me she is taking propranolol for it. I thinks she has not got it right. She does not know of any aggravating and relieving factors for these episodes. Wheezing 11/29/2012 08/12/2016 Last Assessment & Plan: Patient is audibly wheezing right now. She recently had asthmatic bronchitis and pneumonia, said she is prone to have it. had a course of levaquin. Steroids and bronchodilators. Schizoaffective disorder 11/15/2012 017 Overview: [facility], But [facility] it according to her. Last Assessment & Plan: [facility], But they changed it according to her. Parkinson disease 11/15/2012 12/03/2017 Overview: Radha [place], [place] I went through a lot of DR. Cevallos [facility]. he does not seem to think she has parkinson's. She had drug induced parkinson's like symptoms that resolved when she stopped taking the inciting medications. Last Assessment & Plan: She will send me a note from him of his latest assessment. documented as of this encounter (statuses as of 08/20/2022) [facility]2017 History of Past illness Narrative* Problem Noted Date Diagnosed Date Resolved Date Obesity, Class III, BMI >= 4 0 (morbid obesity) ([facility]) E66.01 08/26/2016 07/08/2022 Last Assessment & Plan: Assessment: Body mass index is 40.17 kg/m . Post-operative pain 07/10/2016 08/13/19 17 Hypomagnesemia 07/10/2016 07/10/2016 Full incontinence of feces 07/08/2016 0 07/10/2016 Ankle instability 04/07/2016 08/12/2016 Posterior tibial tendonitis 04/07/2016 08/12/2016 Trigger thumb of right hand 11/04/2015 08/12/2016 Cramp in muscle 04/15/2015 08/12/2016 Primary insomnia 03/19/2015 08/12/2016 Last Assessment & Plan: Struggling with insomnia Pain in left knee 12/03/2014 08/12/2016 Overview: Patient has left knee pain , that got better with PT. Last Assessment & Plan: She is going for PT and now she feels better. significantly Weakness of left leg 11/04/2014 017 Pain in joint, lower leg 02/19/2014 Tingling in extremities 10/11/201309/16 Overview: She is having tingling in her left thigh, that comes and goes. Going on for a couple months , but since the last 2 weeks she has been having it all the time. Last Assessment & Plan: She is having tingling in her left thigh, that comes and goes. Going on for a couple months , but since the last 2 weeks she has been having it all the time. Urgency of urination 03/09/2013 014 Frequency of urination 03/09/201307/11 Last Assessment & Plan: Urinary incontinence is being followed and evaluated by Dr Vazquez, she is having some urodynamic studies done. i reveiwed Dr. Fernandez notes. Obesity 03/09/2013 10/06/2016 Overview: 04/25/13 BMI 48.43. Normal BMI 18.5-25, normal weight range of 112-150 pounds in a person 5 feet 5 inches tall. Last Assessment & Plan: Gaining weight since she has not been able to exercise due to her surgeries. Nausea 02/09/2013 08/12/2016 Last Assessment & Plan: Patient has some nausea recently, is on macrobid for suspected UTI, when she came in last week. Since all her tests are negative including urine culture.i am discontinuing that SOB (shortness of breath) on exertion 02/09/2013 08/12/2016 Last Assessment & Plan: The patient has SOB which was extensively evaluated, initially it was thought to be from asthma. After seeing the family consumer science teacher and all evaluation complete it was thought to from restriction of the lungs from her weight. She also has sleep apnea, needs oxygen bled into the cpap machine, as the desaturations at night time does not normalize with out bleeding oxygen in. Today we checked her oxygen , the results are below. resting with o2 at 3liters- 91% resting room air o2 sat- 90% activity room air o2 sat- 84% activity with nc at 3liters- 91% Urinary incontinence 02/09/2013 014 Last Assessment & Plan: Patient is having the incontinence for a month. She is on vesicare but it does not help her. Prior to this she had some leakage and dribbling but it was never this bad. She has been having a lot of accidents in the last month. She is indeed a very complex patient and i would like to refer her to a Urologist so he can evaluate her bladder dynamics. Schizophrenia 01/04/2013 02/06/2014 Overview: Dr Delaney is her psychologist . Has not seen him for a year. Patient says that the diagnosis of schizophrenia was taken off the diagnosis. Last Assessment & Plan: Patients notes indicates, that she has schizophrenia. Has been on Thorazine, haldol and invega. These drugs gave her tardive dyskinesia. She was put on tetrabenzine for it, worked miracles with her and then she got some parkinson's like features. She couldn't even feed herself. She tried the medication twice. Currently she is not on any psychotic medications. Movement disorder 12/28/2012 08/12/2016 Last Assessment & Plan: Patient is here today, sitting in front of me, very restless, constantly moving her feet, knees, things, neck, in what looks like tardive dyskinesia. It happens 2/3 times a week continues for many hours before she can get Rest from it, she said starting or increasing doses of neurontin, have not made the episodes any worse. She can talk to us without a problem and although she looks very uncomfortable to me she says he is doing fine and this will just pass. She is on requip. And recently started on Gabapentin, we are decreasing her requip. She was on haldol many years ago she says for her depression. She says she has parkinsons and told me she is taking propranolol for it. I thinks she has not got it right. She does not know of any aggravating and relieving factors for these episodes. Wheezing 11/29/2012 08/12/2016 Last Assessment & Plan: Patient is audibly wheezing right now. She recently had asthmatic bronchitis and pneumonia, said she is prone to have it. had a course of levaquin. Steroids and bronchodilators. Schizoaffective disorder 11/15/201210/2016 Overview: [facility] But [facility] it according to her. Last Assessment & Plan: [facility], But they changed it according to her. Parkinson disease 11/15/2012 12/03/2017 Overview: Rad[place], [place] I went through a lot of [facility]. [facility]evallos [facility]. he does not seem to think she has parkinson's. She had drug induced parkinson's like symptoms that resolved when she stopped taking the inciting medications. Last Assessment & Plan: She will send me a note from him of his latest assessment. documented as of this encounter (statuses as of 09/01/2022) [facility]2017 History of Past illness Narrative* Problem Noted Date Diagnosed Date Resolved Date Obesity, Class III, BMI >= 4 0 (morbid obesity) ([facility]) E66.01 08/26/2016 07/08/2022 Last Assessment & Plan: Assessment: Body mass index is 40.17 kg/m . Post-operative pain 07/10/2016 08/13/19 17 Hypomagnesemia 07/10/2016 07/10/2016 Full incontinence of feces 07/08/2016 0 07/10/2016 Ankle instability 04/07/2016 08/12/2016 Posterior tibial tendonitis 04/07/2016 08/12/2016 Trigger thumb of right hand 11/04/2015 08/12/2016 Cramp in muscle 04/15/2015 08/12/2016 Primary insomnia 03/19/2015 08/12/2016 Last Assessment & Plan: Struggling with insomnia Pain in left knee 12/03/2014 08/12/2016 Overview: Patient has left knee pain , that got better with PT. Last Assessment & Plan: She is going for PT and now she feels better. significantly Weakness of left leg 11/04/2014 017 Pain in joint, lower leg 02/19/2014 Tingling in extremities 10/11/201309/16 Overview: She is having tingling in her left thigh, that comes and goes. Going on for a couple months , but since the last 2 weeks she has been having it all the time. Last Assessment & Plan: She is having tingling in her left thigh, that comes and goes. Going on for a couple months , but since the last 2 weeks she has been having it all the time. Urgency of urination 03/09/2013 014 Frequency of urination 03/09/201307/11 Last Assessment & Plan: Urinary incontinence is being followed and evaluated by Dr Vazquez, she is having some urodynamic studies done. i reveiwed Dr. Fernandez notes. Obesity 03/09/2013 10/06/2016 Overview: 04/25/13 BMI 48.43. Normal BMI 18.5-25, normal weight range of 112-150 pounds in a person 5 feet 5 inches tall. Last Assessment & Plan: Gaining weight since she has not been able to exercise due to her surgeries. Nausea 02/09/2013 08/12/2016 Last Assessment & Plan: Patient has some nausea recently, is on macrobid for suspected UTI, when she came in last week. Since all her tests are negative including urine culture.i am discontinuing that SOB (shortness of breath) on exertion 02/09/2013 08/12/2016 Last Assessment & Plan: The patient has SOB which was extensively evaluated, initially it was thought to be from asthma. After seeing the family consumer science teacher and all evaluation complete it was thought to from restriction of the lungs from her weight. She also has sleep apnea, needs oxygen bled into the cpap machine, as the desaturations at night time does not normalize with out bleeding oxygen in. Today we checked her oxygen , the results are below. resting with o2 at 3liters- 91% resting room air o2 sat- 90% activity room air o2 sat- 84% activity with nc at 3liters- 91% Urinary incontinence 02/09/2013 014 Last Assessment & Plan: Patient is having the incontinence for a month. She is on vesicare but it does not help her. Prior to this she had some leakage and dribbling but it was never this bad. She has been having a lot of accidents in the last month. She is indeed a very complex patient and i would like to refer her to a Urologist so he can evaluate her bladder dynamics. Schizophrenia 01/04/2013 02/06/2014 Overview: Dr Delaney is her psychologist . Has not seen him for a year. Patient says that the diagnosis of schizophrenia was taken off the diagnosis. Last Assessment & Plan: Patients notes indicates, that she has schizophrenia. Has been on Thorazine, haldol and invega. These drugs gave her tardive dyskinesia. She was put on tetrabenzine for it, worked miracles with her and then she got some parkinson's like features. She couldn't even feed herself. She tried the medication twice. Currently she is not on any psychotic medications. Movement disorder 12/28/2012 08/12/2016 Last Assessment & Plan: Patient is here today, sitting in front of me, very restless, constantly moving her feet, knees, things, neck, in what looks like tardive dyskinesia. It happens 2/3 times a week continues for many hours before she can get Rest from it, she said starting or increasing doses of neurontin, have not made the episodes any worse. She can talk to us without a problem and although she looks very uncomfortable to me she says he is doing fine and this will just pass. She is on requip. And recently started on Gabapentin, we are decreasing her requip. She was on haldol many years ago she says for her depression. She says she has parkinsons and told me she is taking propranolol for it. I thinks she has not got it right. She does not know of any aggravating and relieving factors for these episodes. Wheezing 11/29/2012 08/12/2016 Last Assessment & Plan: Patient is audibly wheezing right now. She recently had asthmatic bronchitis and pneumonia, said she is prone to have it. had a course of levaquin. Steroids and bronchodilators. Schizoaffective disorder 11/15/201210/2016 Overview: [facility] But [facility] it according to her. Last Assessment & Plan: [facility], But they changed it according to her. Parkinson disease 11/15/2012 12/03/2017 Overview: [place], [place] I went through a lot of [facility]. [facility]evallos [facility]. he does not seem to think she has parkinson's. She had drug induced parkinson's like symptoms that resolved when she stopped taking the inciting medications. Last Assessment & Plan: She will send me a note from him of his latest assessment. documented as of this encounter (statuses as of 09/14/2022) [facility]2017 History of Past illness Narrative* Problem Noted Date Diagnosed Date Resolved Date Obesity, Class III, BMI >= 4 0 (morbid obesity) ([facility]) E66.01 08/26/2016 07/08/2022 Last Assessment & Plan: Assessment: Body mass index is 40.17 kg/m . Post-operative pain 07/10/2016 08/13/19 17 Hypomagnesemia 07/10/2016 07/10/2016 Full incontinence of feces 07/08/2016 0 07/10/2016 Ankle instability 04/07/2016 08/12/2016 Posterior tibial tendonitis 04/07/2016 08/12/2016 Trigger thumb of right hand 11/04/2015 08/12/2016 Cramp in muscle 04/15/2015 08/12/2016 Primary insomnia 03/19/2015 08/12/2016 Last Assessment & Plan: Struggling with insomnia Pain in left knee 12/03/2014 08/12/2016 Overview: Patient has left knee pain , that got better with PT. Last Assessment & Plan: She is going for PT and now she feels better. significantly Weakness of left leg 11/04/2014 017 Pain in joint, lower leg 02/19/2014 Tingling in extremities 10/11/201309/16 Overview: She is having tingling in her left thigh, that comes and goes. Going on for a couple months , but since the last 2 weeks she has been having it all the time. Last Assessment & Plan: She is having tingling in her left thigh, that comes and goes. Going on for a couple months , but since the last 2 weeks she has been having it all the time. Urgency of urination 03/09/2013 014 Frequency of urination 03/09/201307/11 Last Assessment & Plan: Urinary incontinence is being followed and evaluated by Dr Vazquez, she is having some urodynamic studies done. i reveiwed Dr. Fernandez notes. Obesity 03/09/2013 10/06/2016 Overview: 04/25/13 BMI 48.43. Normal BMI 18.5-25, normal weight range of 112-150 pounds in a person 5 feet 5 inches tall. Last Assessment & Plan: Gaining weight since she has not been able to exercise due to her surgeries. Nausea 02/09/2013 08/12/2016 Last Assessment & Plan: Patient has some nausea recently, is on macrobid for suspected UTI, when she came in last week. Since all her tests are negative including urine culture.i am discontinuing that SOB (shortness of breath) on exertion 02/09/2013 08/12/2016 Last Assessment & Plan: The patient has SOB which was extensively evaluated, initially it was thought to be from asthma. After seeing the family consumer science teacher and all evaluation complete it was thought to from restriction of the lungs from her weight. She also has sleep apnea, needs oxygen bled into the cpap machine, as the desaturations at night time does not normalize with out bleeding oxygen in. Today we checked her oxygen , the results are below. resting with o2 at 3liters- 91% resting room air o2 sat- 90% activity room air o2 sat- 84% activity with nc at 3liters- 91% Urinary incontinence 02/09/2013 014 Last Assessment & Plan: Patient is having the incontinence for a month. She is on vesicare but it does not help her. Prior to this she had some leakage and dribbling but it was never this bad. She has been having a lot of accidents in the last month. She is indeed a very complex patient and i would like to refer her to a Urologist so he can evaluate her bladder dynamics. Schizophrenia 01/04/2013 02/06/2014 Overview: Dr Delaney is her psychologist . Has not seen him for a year. Patient says that the diagnosis of schizophrenia was taken off the diagnosis. Last Assessment & Plan: Patients notes indicates, that she has schizophrenia. Has been on Thorazine, haldol and invega. These drugs gave her tardive dyskinesia. She was put on tetrabenzine for it, worked miracles with her and then she got some parkinson's like features. She couldn't even feed herself. She tried the medication twice. Currently she is not on any psychotic medications. Movement disorder 12/28/2012 08/12/2016 Last Assessment & Plan: Patient is here today, sitting in front of me, very restless, constantly moving her feet, knees, things, neck, in what looks like tardive dyskinesia. It happens 2/3 times a week continues for many hours before she can get Rest from it, she said starting or increasing doses of neurontin, have not made the episodes any worse. She can talk to us without a problem and although she looks very uncomfortable to me she says he is doing fine and this will just pass. She is on requip. And recently started on Gabapentin, we are decreasing her requip. She was on haldol many years ago she says for her depression. She says she has parkinsons and told me she is taking propranolol for it. I thinks she has not got it right. She does not know of any aggravating and relieving factors for these episodes. Wheezing 11/29/2012 08/12/2016 Last Assessment & Plan: Patient is audibly wheezing right now. She recently had asthmatic bronchitis and pneumonia, said she is prone to have it. had a course of levaquin. Steroids and bronchodilators. Schizoaffective disorder 11/15/201210/2016 Overview: [facility] it according to her. Last Assessment & Plan: [facility], But they changed it according to her. Parkinson disease 11/15/2012 12/03/2017 Overview: Radha [place], [place] I went through a lot of DR. Cevallos notes [facility]. he does not seem to think she has parkinson's. She had drug induced parkinson's like symptoms that resolved when she stopped taking the inciting medications. Last Assessment & Plan: She will send me a note from him of his latest assessment. documented as of this encounter (statuses as of 09/14/2022) [facility]07-[facility]-2017 History of Past illness Narrative* Problem Noted Date Diagnosed Date Resolved Date Obesity, Class III, BMI >= 4 0 (morbid obesity) ([facility]) E66.01 08/26/2016 07/08/2022 Last Assessment & Plan: Assessment: Body mass index is 40.17 kg/m . Post-operative pain 07/10/2016 08/13/19 17 Hypomagnesemia 07/10/2016 07/10/2016 Full incontinence of feces 07/08/2016 0 07/10/2016 Ankle instability 04/07/2016 08/12/2016 Posterior tibial tendonitis 04/07/2016 08/12/2016 Trigger thumb of right hand 11/04/2015 08/12/2016 Cramp in muscle 04/15/2015 08/12/2016 Primary insomnia 03/19/2015 08/12/2016 Last Assessment & Plan: Struggling with insomnia Pain in left knee 12/03/2014 08/12/2016 Overview: Patient has left knee pain , that got better with PT. Last Assessment & Plan: She is going for PT and now she feels better. significantly Weakness of left leg 11/04/2014 017 Pain in joint, lower leg 02/19/2014 Tingling in extremities 10/11/201309/16 Overview: She is having tingling in her left thigh, that comes and goes. Going on for a couple months , but since the last 2 weeks she has been having it all the time. Last Assessment & Plan: She is having tingling in her left thigh, that comes and goes. Going on for a couple months , but since the last 2 weeks she has been having it all the time. Urgency of urination 03/09/2013 014 Frequency of urination 03/09/201307/11 Last Assessment & Plan: Urinary incontinence is being followed and evaluated by Dr Vazquez, she is having some urodynamic studies done. i reveiwed Dr. Fernandez notes. Obesity 03/09/2013 10/06/2016 Overview: 04/25/13 BMI 48.43. Normal BMI 18.5-25, normal weight range of 112-150 pounds in a person 5 feet 5 inches tall. Last Assessment & Plan: Gaining weight since she has not been able to exercise due to her surgeries. Nausea 02/09/2013 08/12/2016 Last Assessment & Plan: Patient has some nausea recently, is on macrobid for suspected UTI, when she came in last week. Since all her tests are negative including urine culture.i am discontinuing that SOB (shortness of breath) on exertion 02/09/2013 08/12/2016 Last Assessment & Plan: The patient has SOB which was extensively evaluated, initially it was thought to be from asthma. After seeing the family consumer science teacher and all evaluation complete it was thought to from restriction of the lungs from her weight. She also has sleep apnea, needs oxygen bled into the cpap machine, as the desaturations at night time does not normalize with out bleeding oxygen in. Today we checked her oxygen , the results are below. resting with o2 at 3liters- 91% resting room air o2 sat- 90% activity room air o2 sat- 84% activity with nc at 3liters- 91% Urinary incontinence 02/09/2013 014 Last Assessment & Plan: Patient is having the incontinence for a month. She is on vesicare but it does not help her. Prior to this she had some leakage and dribbling but it was never this bad. She has been having a lot of accidents in the last month. She is indeed a very complex patient and i would like to refer her to a Urologist so he can evaluate her bladder dynamics. Schizophrenia 01/04/2013 02/06/2014 Overview: Dr Delaney is her psychologist . Has not seen him for a year. Patient says that the diagnosis of schizophrenia was taken off the diagnosis. Last Assessment & Plan: Patients notes indicates, that she has schizophrenia. Has been on Thorazine, haldol and invega. These drugs gave her tardive dyskinesia. She was put on tetrabenzine for it, worked miracles with her and then she got some parkinson's like features. She couldn't even feed herself. She tried the medication twice. Currently she is not on any psychotic medications. Movement disorder 12/28/2012 08/12/2016 Last Assessment & Plan: Patient is here today, sitting in front of me, very restless, constantly moving her feet, knees, things, neck, in what looks like tardive dyskinesia. It happens 2/3 times a week continues for many hours before she can get Rest from it, she said starting or increasing doses of neurontin, have not made the episodes any worse. She can talk to us without a problem and although she looks very uncomfortable to me she says he is doing fine and this will just pass. She is on requip. And recently started on Gabapentin, we are decreasing her requip. She was on haldol many years ago she says for her depression. She says she has parkinsons and told me she is taking propranolol for it. I thinks she has not got it right. She does not know of any aggravating and relieving factors for these episodes. Wheezing 11/29/2012 08/12/2016 Last Assessment & Plan: Patient is audibly wheezing right now. She recently had asthmatic bronchitis and pneumonia, said she is prone to have it. had a course of levaquin. Steroids and bronchodilators. Schizoaffective disorder 11/15/201210/2016 Overview: [facility] But [facility] it according to her. Last Assessment & Plan: [facility], But they changed it according to her. Parkinson disease 11/15/2012 12/03/2017 Overview: Radha [place], [place] I went through a lot of DR. Cevallos [facility]. he does not seem to think she has parkinson's. She had drug induced parkinson's like symptoms that resolved when she stopped taking the inciting medications. Last Assessment & Plan: She will send me a note from him of his latest assessment. documented as of this encounter (statuses as of 09/15/2022) [facility]2017 History of Past illness Narrative* Problem Noted Date Diagnosed Date Resolved Date Obesity, Class III, BMI >= 4 0 (morbid obesity) ([facility]) E66.01 08/26/2016 07/08/2022 Last Assessment & Plan: Assessment: Body mass index is 40.17 kg/m . Post-operative pain 07/10/2016 08/13/19 17 Hypomagnesemia 07/10/2016 07/10/2016 Full incontinence of feces 07/08/2016 0 07/10/2016 Ankle instability 04/07/2016 08/12/2016 Posterior tibial tendonitis 04/07/2016 08/12/2016 Trigger thumb of right hand 11/04/2015 08/12/2016 Cramp in muscle 04/15/2015 08/12/2016 Primary insomnia 03/19/2015 08/12/2016 Last Assessment & Plan: Struggling with insomnia Pain in left knee 12/03/2014 08/12/2016 Overview: Patient has left knee pain , that got better with PT. Last Assessment & Plan: She is going for PT and now she feels better. significantly Weakness of left leg 11/04/2014 017 Pain in joint, lower leg 02/19/2014 Tingling in extremities 10/11/201309/16 Overview: She is having tingling in her left thigh, that comes and goes. Going on for a couple months , but since the last 2 weeks she has been having it all the time. Last Assessment & Plan: She is having tingling in her left thigh, that comes and goes. Going on for a couple months , but since the last 2 weeks she has been having it all the time. Urgency of urination 03/09/2013 014 Frequency of urination 03/09/201307/11 Last Assessment & Plan: Urinary incontinence is being followed and evaluated by Dr Vazquez, she is having some urodynamic studies done. i reveiwed Dr. Fernandez notes. Obesity 03/09/2013 10/06/2016 Overview: 04/25/13 BMI 48.43. Normal BMI 18.5-25, normal weight range of 112-150 pounds in a person 5 feet 5 inches tall. Last Assessment & Plan: Gaining weight since she has not been able to exercise due to her surgeries. Nausea 02/09/2013 08/12/2016 Last Assessment & Plan: Patient has some nausea recently, is on macrobid for suspected UTI, when she came in last week. Since all her tests are negative including urine culture.i am discontinuing that SOB (shortness of breath) on exertion 02/09/2013 08/12/2016 Last Assessment & Plan: The patient has SOB which was extensively evaluated, initially it was thought to be from asthma. After seeing the family consumer science teacher and all evaluation complete it was thought to from restriction of the lungs from her weight. She also has sleep apnea, needs oxygen bled into the cpap machine, as the desaturations at night time does not normalize with out bleeding oxygen in. Today we checked her oxygen , the results are below. resting with o2 at 3liters- 91% resting room air o2 sat- 90% activity room air o2 sat- 84% activity with nc at 3liters- 91% Urinary incontinence 02/09/2013 014 Last Assessment & Plan: Patient is having the incontinence for a month. She is on vesicare but it does not help her. Prior to this she had some leakage and dribbling but it was never this bad. She has been having a lot of accidents in the last month. She is indeed a very complex patient and i would like to refer her to a Urologist so he can evaluate her bladder dynamics. Schizophrenia 01/04/2013 02/06/2014 Overview: Dr Delaney is her psychologist . Has not seen him for a year. Patient says that the diagnosis of schizophrenia was taken off the diagnosis. Last Assessment & Plan: Patients notes indicates, that she has schizophrenia. Has been on Thorazine, haldol and invega. These drugs gave her tardive dyskinesia. She was put on tetrabenzine for it, worked miracles with her and then she got some parkinson's like features. She couldn't even feed herself. She tried the medication twice. Currently she is not on any psychotic medications. Movement disorder 12/28/2012 08/12/2016 Last Assessment & Plan: Patient is here today, sitting in front of me, very restless, constantly moving her feet, knees, things, neck, in what looks like tardive dyskinesia. It happens 2/3 times a week continues for many hours before she can get Rest from it, she said starting or increasing doses of neurontin, have not made the episodes any worse. She can talk to us without a problem and although she looks very uncomfortable to me she says he is doing fine and this will just pass. She is on requip. And recently started on Gabapentin, we are decreasing her requip. She was on haldol many years ago she says for her depression. She says she has parkinsons and told me she is taking propranolol for it. I thinks she has not got it right. She does not know of any aggravating and relieving factors for these episodes. Wheezing 11/29/2012 08/12/2016 Last Assessment & Plan: Patient is audibly wheezing right now. She recently had asthmatic bronchitis and pneumonia, said she is prone to have it. had a course of levaquin. Steroids and bronchodilators. Schizoaffective disorder 11/15/201210/2016 Overview: [facility] But [facility] it according to her. Last Assessment & Plan: [facility], But they changed it according to her. Parkinson disease 11/15/2012 12/03/2017 Overview: Radha [place], [place] I went through a lot of DR. Cevallos notes from [facility]. he does not seem to think she has parkinson's. She had drug induced parkinson's like symptoms that resolved when she stopped taking the inciting medications. Last Assessment & Plan: She will send me a note from him of his latest assessment. documented as of this encounter (statuses as of 09/17/2022) [facility]2017 History of Past illness Narrative* Problem Noted Date Diagnosed Date Resolved Date Obesity, Class III, BMI >= 4 0 (morbid obesity) ([facility]) E66.01 08/26/2016 07/08/2022 Last Assessment & Plan: Assessment: Body mass index is 40.17 kg/m . Post-operative pain 07/10/2016 08/13/19 17 Hypomagnesemia 07/10/2016 07/10/2016 Full incontinence of feces 07/08/2016 0 07/10/2016 Ankle instability 04/07/2016 08/12/2016 Posterior tibial tendonitis 04/07/2016 08/12/2016 Trigger thumb of right hand 11/04/2015 08/12/2016 Cramp in muscle 04/15/2015 08/12/2016 Primary insomnia 03/19/2015 08/12/2016 Last Assessment & Plan: Struggling with insomnia Pain in left knee 12/03/2014 08/12/2016 Overview: Patient has left knee pain , that got better with PT. Last Assessment & Plan: She is going for PT and now she feels better. significantly Weakness of left leg 11/04/2014 017 Pain in joint, lower leg 02/19/2014 Tingling in extremities 10/11/201309/16 Overview: She is having tingling in her left thigh, that comes and goes. Going on for a couple months , but since the last 2 weeks she has been having it all the time. Last Assessment & Plan: She is having tingling in her left thigh, that comes and goes. Going on for a couple months , but since the last 2 weeks she has been having it all the time. Urgency of urination 03/09/2013 014 Frequency of urination 03/09/201307/11 Last Assessment & Plan: Urinary incontinence is being followed and evaluated by Dr Vazquez, she is having some urodynamic studies done. i reveiwed Dr. Fernandez notes. Obesity 03/09/2013 10/06/2016 Overview: 04/25/13 BMI 48.43. Normal BMI 18.5-25, normal weight range of 112-150 pounds in a person 5 feet 5 inches tall. Last Assessment & Plan: Gaining weight since she has not been able to exercise due to her surgeries. Nausea 02/09/2013 08/12/2016 Last Assessment & Plan: Patient has some nausea recently, is on macrobid for suspected UTI, when she came in last week. Since all her tests are negative including urine culture.i am discontinuing that SOB (shortness of breath) on exertion 02/09/2013 08/12/2016 Last Assessment & Plan: The patient has SOB which was extensively evaluated, initially it was thought to be from asthma. After seeing the family consumer science teacher and all evaluation complete it was thought to from restriction of the lungs from her weight. She also has sleep apnea, needs oxygen bled into the cpap machine, as the desaturations at night time does not normalize with out bleeding oxygen in. Today we checked her oxygen , the results are below. resting with o2 at 3liters- 91% resting room air o2 sat- 90% activity room air o2 sat- 84% activity with nc at 3liters- 91% Urinary incontinence 02/09/2013 014 Last Assessment & Plan: Patient is having the incontinence for a month. She is on vesicare but it does not help her. Prior to this she had some leakage and dribbling but it was never this bad. She has been having a lot of accidents in the last month. She is indeed a very complex patient and i would like to refer her to a Urologist so he can evaluate her bladder dynamics. Schizophrenia 01/04/2013 02/06/2014 Overview: Dr Delaney is her psychologist . Has not seen him for a year. Patient says that the diagnosis of schizophrenia was taken off the diagnosis. Last Assessment & Plan: Patients notes indicates, that she has schizophrenia. Has been on Thorazine, haldol and invega. These drugs gave her tardive dyskinesia. She was put on tetrabenzine for it, worked miracles with her and then she got some parkinson's like features. She couldn't even feed herself. She tried the medication twice. Currently she is not on any psychotic medications. Movement disorder 12/28/2012 08/12/2016 Last Assessment & Plan: Patient is here today, sitting in front of me, very restless, constantly moving her feet, knees, things, neck, in what looks like tardive dyskinesia. It happens 2/3 times a week continues for many hours before she can get Rest from it, she said starting or increasing doses of neurontin, have not made the episodes any worse. She can talk to us without a problem and although she looks very uncomfortable to me she says he is doing fine and this will just pass. She is on requip. And recently started on Gabapentin, we are decreasing her requip. She was on haldol many years ago she says for her depression. She says she has parkinsons and told me she is taking propranolol for it. I thinks she has not got it right. She does not know of any aggravating and relieving factors for these episodes. Wheezing 11/29/2012 08/12/2016 Last Assessment & Plan: Patient is audibly wheezing right now. She recently had asthmatic bronchitis and pneumonia, said she is prone to have it. had a course of levaquin. Steroids and bronchodilators. Schizoaffective disorder 11/15/201210/2016 Overview: [facility] But [facility] it according to her. Last Assessment & Plan: [facility], But they changed it according to her. Parkinson disease 11/15/2012 12/03/2017 Overview: Rad[place], [place] I went through a lot of DR. Cevallos [facility] from [facility]. he does not seem to think she has parkinson's. She had drug induced parkinson's like symptoms that resolved when she stopped taking the inciting medications. Last Assessment & Plan: She will send me a note from him of his latest assessment. documented as of this encounter (statuses as of 09/22/2022) [facility]2017 History of Past illness Narrative* Problem Noted Date Diagnosed Date Resolved Date Obesity, Class III, BMI >= 4 0 (morbid obesity) ([facility]) E66.01 08/26/2016 07/08/2022 Last Assessment & Plan: Assessment: Body mass index is 40.17 kg/m . Post-operative pain 07/10/2016 08/13/19 17 Hypomagnesemia 07/10/2016 07/10/2016 Full incontinence of feces 07/08/2016 0 07/10/2016 Ankle instability 04/07/2016 08/12/2016 Posterior tibial tendonitis 04/07/2016 08/12/2016 Trigger thumb of right hand 11/04/2015 08/12/2016 Cramp in muscle 04/15/2015 08/12/2016 Primary insomnia 03/19/2015 08/12/2016 Last Assessment & Plan: Struggling with insomnia Pain in left knee 12/03/2014 08/12/2016 Overview: Patient has left knee pain , that got better with PT. Last Assessment & Plan: She is going for PT and now she feels better. significantly Weakness of left leg 11/04/2014 017 Pain in joint, lower leg 02/19/2014 Tingling in extremities 10/11/201309/16 Overview: She is having tingling in her left thigh, that comes and goes. Going on for a couple months , but since the last 2 weeks she has been having it all the time. Last Assessment & Plan: She is having tingling in her left thigh, that comes and goes. Going on for a couple months , but since the last 2 weeks she has been having it all the time. Urgency of urination 03/09/2013 014 Frequency of urination 03/09/201307/11 Last Assessment & Plan: Urinary incontinence is being followed and evaluated by Dr Vazquez, she is having some urodynamic studies done. i reveiwed Dr. Fernandez notes. Obesity 03/09/2013 10/06/2016 Overview: 04/25/13 BMI 48.43. Normal BMI 18.5-25, normal weight range of 112-150 pounds in a person 5 feet 5 inches tall. Last Assessment & Plan: Gaining weight since she has not been able to exercise due to her surgeries. Nausea 02/09/2013 08/12/2016 Last Assessment & Plan: Patient has some nausea recently, is on macrobid for suspected UTI, when she came in last week. Since all her tests are negative including urine culture.i am discontinuing that SOB (shortness of breath) on exertion 02/09/2013 08/12/2016 Last Assessment & Plan: The patient has SOB which was extensively evaluated, initially it was thought to be from asthma. After seeing the family consumer science teacher and all evaluation complete it was thought to from restriction of the lungs from her weight. She also has sleep apnea, needs oxygen bled into the cpap machine, as the desaturations at night time does not normalize with out bleeding oxygen in. Today we checked her oxygen , the results are below. resting with o2 at 3liters- 91% resting room air o2 sat- 90% activity room air o2 sat- 84% activity with nc at 3liters- 91% Urinary incontinence 02/09/2013 014 Last Assessment & Plan: Patient is having the incontinence for a month. She is on vesicare but it does not help her. Prior to this she had some leakage and dribbling but it was never this bad. She has been having a lot of accidents in the last month. She is indeed a very complex patient and i would like to refer her to a Urologist so he can evaluate her bladder dynamics. Schizophrenia 01/04/2013 02/06/2014 Overview: Dr Delaney is her psychologist . Has not seen him for a year. Patient says that the diagnosis of schizophrenia was taken off the diagnosis. Last Assessment & Plan: Patients notes indicates, that she has schizophrenia. Has been on Thorazine, haldol and invega. These drugs gave her tardive dyskinesia. She was put on tetrabenzine for it, worked miracles with her and then she got some parkinson's like features. She couldn't even feed herself. She tried the medication twice. Currently she is not on any psychotic medications. Movement disorder 12/28/2012 08/12/2016 Last Assessment & Plan: Patient is here today, sitting in front of me, very restless, constantly moving her feet, knees, things, neck, in what looks like tardive dyskinesia. It happens 2/3 times a week continues for many hours before she can get Rest from it, she said starting or increasing doses of neurontin, have not made the episodes any worse. She can talk to us without a problem and although she looks very uncomfortable to me she says he is doing fine and this will just pass. She is on requip. And recently started on Gabapentin, we are decreasing her requip. She was on haldol many years ago she says for her depression. She says she has parkinsons and told me she is taking propranolol for it. I thinks she has not got it right. She does not know of any aggravating and relieving factors for these episodes. Wheezing 11/29/2012 08/12/2016 Last Assessment & Plan: Patient is audibly wheezing right now. She recently had asthmatic bronchitis and pneumonia, said she is prone to have it. had a course of levaquin. Steroids and bronchodilators. Schizoaffective disorder 11/15/201210/2016 Overview: [facility] But [facility] it according to her. Last Assessment & Plan: [facility], But they changed it according to her. Parkinson disease 11/15/2012 12/03/2017 Overview: Rad[place], [place] I went through a lot of DR. Cevallos [facility] from [facility]. he does not seem to think she has parkinson's. She had drug induced parkinson's like symptoms that resolved when she stopped taking the inciting medications. Last Assessment & Plan: She will send me a note from him of his latest assessment. documented as of this encounter (statuses as of 10/01/2022) [facility] History of Past illness Narrative* Problem Noted Date Diagnosed Date Resolved Date Obesity, Class III, BMI >= 4 0 (morbid obesity) ([facility]) E66.01 08/26/2016 07/08/2022 Last Assessment & Plan: Assessment: Body mass index is 40.17 kg/m . Post-operative pain 07/10/2016 08/13/19 17 Hypomagnesemia 07/10/2016 07/10/2016 Full incontinence of feces 07/08/2016 0 07/10/2016 Ankle instability 04/07/2016 08/12/2016 Posterior tibial tendonitis 04/07/2016 08/12/2016 Trigger thumb of right hand 11/04/2015 08/12/2016 Cramp in muscle 04/15/2015 08/12/2016 Primary insomnia 03/19/2015 08/12/2016 Last Assessment & Plan: Struggling with insomnia Pain in left knee 12/03/2014 08/12/2016 Overview: Patient has left knee pain , that got better with PT. Last Assessment & Plan: She is going for PT and now she feels better. significantly Weakness of left leg 11/04/2014 017 Pain in joint, lower leg 02/19/2014 Tingling in extremities 10/11/201309/16 Overview: She is having tingling in her left thigh, that comes and goes. Going on for a couple months , but since the last 2 weeks she has been having it all the time. Last Assessment & Plan: She is having tingling in her left thigh, that comes and goes. Going on for a couple months , but since the last 2 weeks she has been having it all the time. Urgency of urination 03/09/2013 014 Frequency of urination 03/09/201307/11 Last Assessment & Plan: Urinary incontinence is being followed and evaluated by Dr Vazquez, she is having some urodynamic studies done. i reveiwed Dr. Fernandez notes. Obesity 03/09/2013 10/06/2016 Overview: 04/25/13 BMI 48.43. Normal BMI 18.5-25, normal weight range of 112-150 pounds in a person 5 feet 5 inches tall. Last Assessment & Plan: Gaining weight since she has not been able to exercise due to her surgeries. Nausea 02/09/2013 08/12/2016 Last Assessment & Plan: Patient has some nausea recently, is on macrobid for suspected UTI, when she came in last week. Since all her tests are negative including urine culture.i am discontinuing that SOB (shortness of breath) on exertion 02/09/2013 08/12/2016 Last Assessment & Plan: The patient has SOB which was extensively evaluated, initially it was thought to be from asthma. After seeing the family consumer science teacher and all evaluation complete it was thought to from restriction of the lungs from her weight. She also has sleep apnea, needs oxygen bled into the cpap machine, as the desaturations at night time does not normalize with out bleeding oxygen in. Today we checked her oxygen , the results are below. resting with o2 at 3liters- 91% resting room air o2 sat- 90% activity room air o2 sat- 84% activity with nc at 3liters- 91% Urinary incontinence 02/09/2013 014 Last Assessment & Plan: Patient is having the incontinence for a month. She is on vesicare but it does not help her. Prior to this she had some leakage and dribbling but it was never this bad. She has been having a lot of accidents in the last month. She is indeed a very complex patient and i would like to refer her to a Urologist so he can evaluate her bladder dynamics. Schizophrenia 01/04/2013 02/06/2014 Overview: Dr Delaney is her psychologist . Has not seen him for a year. Patient says that the diagnosis of schizophrenia was taken off the diagnosis. Last Assessment & Plan: Patients notes indicates, that she has schizophrenia. Has been on Thorazine, haldol and invega. These drugs gave her tardive dyskinesia. She was put on tetrabenzine for it, worked miracles with her and then she got some parkinson's like features. She couldn't even feed herself. She tried the medication twice. Currently she is not on any psychotic medications. Movement disorder 12/28/2012 08/12/2016 Last Assessment & Plan: Patient is here today, sitting in front of me, very restless, constantly moving her feet, knees, things, neck, in what looks like tardive dyskinesia. It happens 2/3 times a week continues for many hours before she can get Rest from it, she said starting or increasing doses of neurontin, have not made the episodes any worse. She can talk to us without a problem and although she looks very uncomfortable to me she says he is doing fine and this will just pass. She is on requip. And recently started on Gabapentin, we are decreasing her requip. She was on haldol many years ago she says for her depression. She says she has parkinsons and told me she is taking propranolol for it. I thinks she has not got it right. She does not know of any aggravating and relieving factors for these episodes. Wheezing 11/29/2012 08/12/2016 Last Assessment & Plan: Patient is audibly wheezing right now. She recently had asthmatic bronchitis and pneumonia, said she is prone to have it. had a course of levaquin. Steroids and bronchodilators. Schizoaffective disorder 11/15/201210/2016 Overview: [facility] But [facility] it according to her. Last Assessment & Plan: [facility], But they changed it according to her. Parkinson disease 11/15/2012 12/03/2017 Overview: [place], [place] I went through a lot of DR. Cevallos [facility]. he does not seem to think she has parkinson's. She had drug induced parkinson's like symptoms that resolved when she stopped taking the inciting medications. Last Assessment & Plan: She will send me a note from him of his latest assessment. documented as of this encounter (statuses as of 10/12/2022) [facility]07-12-2017 History of Past illness Narrative* Problem Noted Date Diagnosed Date Resolved Date Obesity, Class III, BMI >= 4 0 (morbid obesity) ([facility]) E66.01 08/26/2016 07/08/2022 Last Assessment & Plan: Assessment: Body mass index is 40.17 kg/m . Post-operative pain 07/10/2016 08/13/19 17 Hypomagnesemia 07/10/2016 07/10/2016 Full incontinence of feces 07/08/2016 0 07/10/2016 Ankle instability 04/07/2016 08/12/2016 Posterior tibial tendonitis 04/07/2016 08/12/2016 Trigger thumb of right hand 11/04/2015 08/12/2016 Cramp in muscle 04/15/2015 08/12/2016 Primary insomnia 03/19/2015 08/12/2016 Last Assessment & Plan: Struggling with insomnia Pain in left knee 12/03/2014 08/12/2016 Overview: Patient has left knee pain , that got better with PT. Last Assessment & Plan: She is going for PT and now she feels better. significantly Weakness of left leg 11/04/2014 017 Pain in joint, lower leg 02/19/2014 Tingling in extremities 10/11/201309/16 Overview: She is having tingling in her left thigh, that comes and goes. Going on for a couple months , but since the last 2 weeks she has been having it all the time. Last Assessment & Plan: She is having tingling in her left thigh, that comes and goes. Going on for a couple months , but since the last 2 weeks she has been having it all the time. Urgency of urination 03/09/2013 014 Frequency of urination 03/09/201307/11 Last Assessment & Plan: Urinary incontinence is being followed and evaluated by Dr Vazquez, she is having some urodynamic studies done. i reveiwed Dr. Fernandez notes. Obesity 03/09/2013 10/06/2016 Overview: 04/25/13 BMI 48.43. Normal BMI 18.5-25, normal weight range of 112-150 pounds in a person 5 feet 5 inches tall. Last Assessment & Plan: Gaining weight since she has not been able to exercise due to her surgeries. Nausea 02/09/2013 08/12/2016 Last Assessment & Plan: Patient has some nausea recently, is on macrobid for suspected UTI, when she came in last week. Since all her tests are negative including urine culture.i am discontinuing that SOB (shortness of breath) on exertion 02/09/2013 08/12/2016 Last Assessment & Plan: The patient has SOB which was extensively evaluated, initially it was thought to be from asthma. After seeing the family consumer science teacher and all evaluation complete it was thought to from restriction of the lungs from her weight. She also has sleep apnea, needs oxygen bled into the cpap machine, as the desaturations at night time does not normalize with out bleeding oxygen in. Today we checked her oxygen , the results are below. resting with o2 at 3liters- 91% resting room air o2 sat- 90% activity room air o2 sat- 84% activity with nc at 3liters- 91% Urinary incontinence 02/09/2013 014 Last Assessment & Plan: Patient is having the incontinence for a month. She is on vesicare but it does not help her. Prior to this she had some leakage and dribbling but it was never this bad. She has been having a lot of accidents in the last month. She is indeed a very complex patient and i would like to refer her to a Urologist so he can evaluate her bladder dynamics. Schizophrenia 01/04/2013 02/06/2014 Overview: Dr Delaney is her psychologist . Has not seen him for a year. Patient says that the diagnosis of schizophrenia was taken off the diagnosis. Last Assessment & Plan: Patients notes indicates, that she has schizophrenia. Has been on Thorazine, haldol and invega. These drugs gave her tardive dyskinesia. She was put on tetrabenzine for it, worked miracles with her and then she got some parkinson's like features. She couldn't even feed herself. She tried the medication twice. Currently she is not on any psychotic medications. Movement disorder 12/28/2012 08/12/2016 Last Assessment & Plan: Patient is here today, sitting in front of me, very restless, constantly moving her feet, knees, things, neck, in what looks like tardive dyskinesia. It happens 2/3 times a week continues for many hours before she can get Rest from it, she said starting or increasing doses of neurontin, have not made the episodes any worse. She can talk to us without a problem and although she looks very uncomfortable to me she says he is doing fine and this will just pass. She is on requip. And recently started on Gabapentin, we are decreasing her requip. She was on haldol many years ago she says for her depression. She says she has parkinsons and told me she is taking propranolol for it. I thinks she has not got it right. She does not know of any aggravating and relieving factors for these episodes. Wheezing 11/29/2012 08/12/2016 Last Assessment & Plan: Patient is audibly wheezing right now. She recently had asthmatic bronchitis and pneumonia, said she is prone to have it. had a course of levaquin. Steroids and bronchodilators. Schizoaffective disorder 11/15/201210/2016 Overview: [facility], But [facility] it according to her. Last Assessment & Plan: [facility], But they changed it according to her. Parkinson disease 11/15/2012 12/03/2017 Overview: Radha [place], [place] I went through a lot of DR. Cevallos notes from [facility]. he does not seem to think she has parkinson's. She had drug induced parkinson's like symptoms that resolved when she stopped taking the inciting medications. Last Assessment & Plan: She will send me a note from him of his latest assessment. documented as of this encounter (statuses as of 10/21/2022) [facility]2017 History of Past illness Narrative* Problem Noted Date Diagnosed Date Resolved Date Obesity, Class III, BMI >= 4 0 (morbid obesity) ([facility]) E66.01 08/26/2016 07/08/2022 Last Assessment & Plan: Assessment: Body mass index is 40.17 kg/m . Post-operative pain 07/10/2016 08/13/19 17 Hypomagnesemia 07/10/2016 07/10/2016 Full incontinence of feces 07/08/2016 0 07/10/2016 Ankle instability 04/07/2016 08/12/2016 Posterior tibial tendonitis 04/07/2016 08/12/2016 Trigger thumb of right hand 11/04/2015 08/12/2016 Cramp in muscle 04/15/2015 08/12/2016 Primary insomnia 03/19/2015 08/12/2016 Last Assessment & Plan: Struggling with insomnia Pain in left knee 12/03/2014 08/12/2016 Overview: Patient has left knee pain , that got better with PT. Last Assessment & Plan: She is going for PT and now she feels better. significantly Weakness of left leg 11/04/2014 017 Pain in joint, lower leg 02/19/2014 Tingling in extremities 10/11/201309/16 Overview: She is having tingling in her left thigh, that comes and goes. Going on for a couple months , but since the last 2 weeks she has been having it all the time. Last Assessment & Plan: She is having tingling in her left thigh, that comes and goes. Going on for a couple months , but since the last 2 weeks she has been having it all the time. Urgency of urination 03/09/2013 014 Frequency of urination 03/09/201307/11 Last Assessment & Plan: Urinary incontinence is being followed and evaluated by Dr Vazquez, she is having some urodynamic studies done. i reveiwed Dr. Fernandez notes. Obesity 03/09/2013 10/06/2016 Overview: 04/25/13 BMI 48.43. Normal BMI 18.5-25, normal weight range of 112-150 pounds in a person 5 feet 5 inches tall. Last Assessment & Plan: Gaining weight since she has not been able to exercise due to her surgeries. Nausea 02/09/2013 08/12/2016 Last Assessment & Plan: Patient has some nausea recently, is on macrobid for suspected UTI, when she came in last week. Since all her tests are negative including urine culture.i am discontinuing that SOB (shortness of breath) on exertion 02/09/2013 08/12/2016 Last Assessment & Plan: The patient has SOB which was extensively evaluated, initially it was thought to be from asthma. After seeing the family consumer science teacher and all evaluation complete it was thought to from restriction of the lungs from her weight. She also has sleep apnea, needs oxygen bled into the cpap machine, as the desaturations at night time does not normalize with out bleeding oxygen in. Today we checked her oxygen , the results are below. resting with o2 at 3liters- 91% resting room air o2 sat- 90% activity room air o2 sat- 84% activity with nc at 3liters- 91% Urinary incontinence 02/09/2013 014 Last Assessment & Plan: Patient is having the incontinence for a month. She is on vesicare but it does not help her. Prior to this she had some leakage and dribbling but it was never this bad. She has been having a lot of accidents in the last month. She is indeed a very complex patient and i would like to refer her to a Urologist so he can evaluate her bladder dynamics. Schizophrenia 01/04/2013 02/06/2014 Overview: Dr Delaney is her psychologist . Has not seen him for a year. Patient says that the diagnosis of schizophrenia was taken off the diagnosis. Last Assessment & Plan: Patients notes indicates, that she has schizophrenia. Has been on Thorazine, haldol and invega. These drugs gave her tardive dyskinesia. She was put on tetrabenzine for it, worked miracles with her and then she got some parkinson's like features. She couldn't even feed herself. She tried the medication twice. Currently she is not on any psychotic medications. Movement disorder 12/28/2012 08/12/2016 Last Assessment & Plan: Patient is here today, sitting in front of me, very restless, constantly moving her feet, knees, things, neck, in what looks like tardive dyskinesia. It happens 2/3 times a week continues for many hours before she can get Rest from it, she said starting or increasing doses of neurontin, have not made the episodes any worse. She can talk to us without a problem and although she looks very uncomfortable to me she says he is doing fine and this will just pass. She is on requip. And recently started on Gabapentin, we are decreasing her requip. She was on haldol many years ago she says for her depression. She says she has parkinsons and told me she is taking propranolol for it. I thinks she has not got it right. She does not know of any aggravating and relieving factors for these episodes. Wheezing 11/29/2012 08/12/2016 Last Assessment & Plan: Patient is audibly wheezing right now. She recently had asthmatic bronchitis and pneumonia, said she is prone to have it. had a course of levaquin. Steroids and bronchodilators. Schizoaffective disorder 11/15/201210/2016 Overview: [facility] But [facility] it according to her. Last Assessment & Plan: [facility], But they changed it according to her. Parkinson disease 11/15/2012 12/03/2017 Overview: [place], [place] I went through a lot of DR. Cevallos [facility]. he does not seem to think she has parkinson's. She had drug induced parkinson's like symptoms that resolved when she stopped taking the inciting medications. Last Assessment & Plan: She will send me a note from him of his latest assessment. documented as of this encounter (statuses as of 11/15/2022) [facility]2017 History of Past illness Narrative* Problem Noted Date Diagnosed Date Resolved Date Obesity, Class III, BMI >= 4 0 (morbid obesity) ([facility]) E66.08/26/2016 07/08/2022 Last Assessment & Plan: Assessment: Body mass index is 40.17 kg/m . Post-operative pain 07/10/2016 08/13/19 17 Hypomagnesemia 07/10/2016 07/10/2016 Full incontinence of feces 07/08/2016 0 07/10/2016 Ankle instability 04/07/2016 08/12/2016 Posterior tibial tendonitis 04/07/2016 08/12/2016 Trigger thumb of right hand 11/04/2015 08/12/2016 Cramp in muscle 04/15/2015 08/12/2016 Primary insomnia 03/19/2015 08/12/2016 Last Assessment & Plan: Struggling with insomnia Pain in left knee 12/03/2014 08/12/2016 Overview: Patient has left knee pain , that got better with PT. Last Assessment & Plan: She is going for PT and now she feels better. significantly Weakness of left leg 11/04/2014 017 Pain in joint, lower leg 02/19/2014 Tingling in extremities 10/11/201309/16 Overview: She is having tingling in her left thigh, that comes and goes. Going on for a couple months , but since the last 2 weeks she has been having it all the time. Last Assessment & Plan: She is having tingling in her left thigh, that comes and goes. Going on for a couple months , but since the last 2 weeks she has been having it all the time. Urgency of urination 03/09/2013 014 Frequency of urination 03/09/201307/11 Last Assessment & Plan: Urinary incontinence is being followed and evaluated by Dr Vazquez, she is having some urodynamic studies done. i reveiwed Dr. Fernandez notes. Obesity 03/09/2013 10/06/2016 Overview: 04/25/13 BMI 48.43. Normal BMI 18.5-25, normal weight range of 112-150 pounds in a person 5 feet 5 inches tall. Last Assessment & Plan: Gaining weight since she has not been able to exercise due to her surgeries. Nausea 02/09/2013 08/12/2016 Last Assessment & Plan: Patient has some nausea recently, is on macrobid for suspected UTI, when she came in last week. Since all her tests are negative including urine culture.i am discontinuing that SOB (shortness of breath) on exertion 02/09/2013 08/12/2016 Last Assessment & Plan: The patient has SOB which was extensively evaluated, initially it was thought to be from asthma. After seeing the family consumer science teacher and all evaluation complete it was thought to from restriction of the lungs from her weight. She also has sleep apnea, needs oxygen bled into the cpap machine, as the desaturations at night time does not normalize with out bleeding oxygen in. Today we checked her oxygen , the results are below. resting with o2 at 3liters- 91% resting room air o2 sat- 90% activity room air o2 sat- 84% activity with nc at 3liters- 91% Urinary incontinence 02/09/2013 014 Last Assessment & Plan: Patient is having the incontinence for a month. She is on vesicare but it does not help her. Prior to this she had some leakage and dribbling but it was never this bad. She has been having a lot of accidents in the last month. She is indeed a very complex patient and i would like to refer her to a Urologist so he can evaluate her bladder dynamics. Schizophrenia 01/04/2013 02/06/2014 Overview: Dr Delaney is her psychologist . Has not seen him for a year. Patient says that the diagnosis of schizophrenia was taken off the diagnosis. Last Assessment & Plan: Patients notes indicates, that she has schizophrenia. Has been on Thorazine, haldol and invega. These drugs gave her tardive dyskinesia. She was put on tetrabenzine for it, worked miracles with her and then she got some parkinson's like features. She couldn't even feed herself. She tried the medication twice. Currently she is not on any psychotic medications. Movement disorder 12/28/2012 08/12/2016 Last Assessment & Plan: Patient is here today, sitting in front of me, very restless, constantly moving her feet, knees, things, neck, in what looks like tardive dyskinesia. It happens 2/3 times a week continues for many hours before she can get Rest from it, she said starting or increasing doses of neurontin, have not made the episodes any worse. She can talk to us without a problem and although she looks very uncomfortable to me she says he is doing fine and this will just pass. She is on requip. And recently started on Gabapentin, we are decreasing her requip. She was on haldol many years ago she says for her depression. She says she has parkinsons and told me she is taking propranolol for it. I thinks she has not got it right. She does not know of any aggravating and relieving factors for these episodes. Wheezing 11/29/2012 08/12/2016 Last Assessment & Plan: Patient is audibly wheezing right now. She recently had asthmatic bronchitis and pneumonia, said she is prone to have it. had a course of levaquin. Steroids and bronchodilators. Schizoaffective disorder 11/15/201210/2016 Overview: [facility] But [facility] it according to her. Last Assessment & Plan: [facility], But they changed it according to her. Parkinson disease 11/15/2012 12/03/2017 Overview: [place], [place] I went through a lot of [facility]allos [facility]. he does not seem to think she has parkinson's. She had drug induced parkinson's like symptoms that resolved when she stopped taking the inciting medications. Last Assessment & Plan: She will send me a note from him of his latest assessment. documented as of this encounter (statuses as of 11/17/2022) [facility]2017 History of Past illness Narrative* Problem Noted Date Diagnosed Date Resolved Date Obesity, Class III, BMI >= 4 0 (morbid obesity) ([facility]) E66.01 08/26/2016 07/08/2022 Last Assessment & Plan: Assessment: Body mass index is 40.17 kg/m . Post-operative pain 07/10/2016 08/13/19 17 Hypomagnesemia 07/10/2016 07/10/2016 Full incontinence of feces 07/08/2016 0 07/10/2016 Ankle instability 04/07/2016 08/12/2016 Posterior tibial tendonitis 04/07/2016 08/12/2016 Trigger thumb of right hand 11/04/2015 08/12/2016 Cramp in muscle 04/15/2015 08/12/2016 Primary insomnia 03/19/2015 08/12/2016 Last Assessment & Plan: Struggling with insomnia Pain in left knee 12/03/2014 08/12/2016 Overview: Patient has left knee pain , that got better with PT. Last Assessment & Plan: She is going for PT and now she feels better. significantly Weakness of left leg 11/04/2014 017 Pain in joint, lower leg 02/19/2014 Tingling in extremities 10/11/201309/16 Overview: She is having tingling in her left thigh, that comes and goes. Going on for a couple months , but since the last 2 weeks she has been having it all the time. Last Assessment & Plan: She is having tingling in her left thigh, that comes and goes. Going on for a couple months , but since the last 2 weeks she has been having it all the time. Urgency of urination 03/09/2013 014 Frequency of urination 03/09/201307/11 Last Assessment & Plan: Urinary incontinence is being followed and evaluated by Dr Vazquez, she is having some urodynamic studies done. i reveiwed Dr. Fernandez notes. Obesity 03/09/2013 10/06/2016 Overview: 04/25/13 BMI 48.43. Normal BMI 18.5-25, normal weight range of 112-150 pounds in a person 5 feet 5 inches tall. Last Assessment & Plan: Gaining weight since she has not been able to exercise due to her surgeries. Nausea 02/09/2013 08/12/2016 Last Assessment & Plan: Patient has some nausea recently, is on macrobid for suspected UTI, when she came in last week. Since all her tests are negative including urine culture.i am discontinuing that SOB (shortness of breath) on exertion 02/09/2013 08/12/2016 Last Assessment & Plan: The patient has SOB which was extensively evaluated, initially it was thought to be from asthma. After seeing the family consumer science teacher and all evaluation complete it was thought to from restriction of the lungs from her weight. She also has sleep apnea, needs oxygen bled into the cpap machine, as the desaturations at night time does not normalize with out bleeding oxygen in. Today we checked her oxygen , the results are below. resting with o2 at 3liters- 91% resting room air o2 sat- 90% activity room air o2 sat- 84% activity with nc at 3liters- 91% Urinary incontinence 02/09/2013 014 Last Assessment & Plan: Patient is having the incontinence for a month. She is on vesicare but it does not help her. Prior to this she had some leakage and dribbling but it was never this bad. She has been having a lot of accidents in the last month. She is indeed a very complex patient and i would like to refer her to a Urologist so he can evaluate her bladder dynamics. Schizophrenia 01/04/2013 02/06/2014 Overview: Dr Delaney is her psychologist . Has not seen him for a year. Patient says that the diagnosis of schizophrenia was taken off the diagnosis. Last Assessment & Plan: Patients notes indicates, that she has schizophrenia. Has been on Thorazine, haldol and invega. These drugs gave her tardive dyskinesia. She was put on tetrabenzine for it, worked miracles with her and then she got some parkinson's like features. She couldn't even feed herself. She tried the medication twice. Currently she is not on any psychotic medications. Movement disorder 12/28/2012 08/12/2016 Last Assessment & Plan: Patient is here today, sitting in front of me, very restless, constantly moving her feet, knees, things, neck, in what looks like tardive dyskinesia. It happens 2/3 times a week continues for many hours before she can get Rest from it, she said starting or increasing doses of neurontin, have not made the episodes any worse. She can talk to us without a problem and although she looks very uncomfortable to me she says he is doing fine and this will just pass. She is on requip. And recently started on Gabapentin, we are decreasing her requip. She was on haldol many years ago she says for her depression. She says she has parkinsons and told me she is taking propranolol for it. I thinks she has not got it right. She does not know of any aggravating and relieving factors for these episodes. Wheezing 11/29/2012 08/12/2016 Last Assessment & Plan: Patient is audibly wheezing right now. She recently had asthmatic bronchitis and pneumonia, said she is prone to have it. had a course of levaquin. Steroids and bronchodilators. Schizoaffective disorder 11/15/201210/2016 Overview: [facility] But [facility] it according to her. Last Assessment & Plan: [facility], But they changed it according to her. Parkinson disease 11/15/2012 12/03/2017 Overview: Radha [place], [place] I went through a lot of DR. Cevallos [facility]. he does not seem to think she has parkinson's. She had drug induced parkinson's like symptoms that resolved when she stopped taking the inciting medications. Last Assessment & Plan: She will send me a note from him of his latest assessment. documented as of this encounter (statuses as of 11/21/2022) [facility]07-12-2017 History of Past illness Narrative* Problem Noted Date Diagnosed Date Resolved Date Obesity, Class III, BMI >= 4 0 (morbid obesity) ([facility]) E66.01 08/26/2016 07/08/2022 Last Assessment & Plan: Assessment: Body mass index is 40.17 kg/m . Post-operative pain 07/10/2016 08/13/19 17 Hypomagnesemia 07/10/2016 07/10/2016 Full incontinence of feces 07/08/2016 0 07/10/2016 Ankle instability 04/07/2016 08/12/2016 Posterior tibial tendonitis 04/07/2016 08/12/2016 Trigger thumb of right hand 11/04/2015 08/12/2016 Cramp in muscle 04/15/2015 08/12/2016 Primary insomnia 03/19/2015 08/12/2016 Last Assessment & Plan: Struggling with insomnia Pain in left knee 12/03/2014 08/12/2016 Overview: Patient has left knee pain , that got better with PT. Last Assessment & Plan: She is going for PT and now she feels better. significantly Weakness of left leg 11/04/2014 017 Pain in joint, lower leg 02/19/2014 Tingling in extremities 10/11/201309/16 Overview: She is having tingling in her left thigh, that comes and goes. Going on for a couple months , but since the last 2 weeks she has been having it all the time. Last Assessment & Plan: She is having tingling in her left thigh, that comes and goes. Going on for a couple months , but since the last 2 weeks she has been having it all the time. Urgency of urination 03/09/2013 014 Frequency of urination 03/09/201307/11 Last Assessment & Plan: Urinary incontinence is being followed and evaluated by Dr Vazquez, she is having some urodynamic studies done. i reveiwed Dr. Fernandez notes. Obesity 03/09/2013 10/06/2016 Overview: 04/25/13 BMI 48.43. Normal BMI 18.5-25, normal weight range of 112-150 pounds in a person 5 feet 5 inches tall. Last Assessment & Plan: Gaining weight since she has not been able to exercise due to her surgeries. Nausea 02/09/2013 08/12/2016 Last Assessment & Plan: Patient has some nausea recently, is on macrobid for suspected UTI, when she came in last week. Since all her tests are negative including urine culture.i am discontinuing that SOB (shortness of breath) on exertion 02/09/2013 08/12/2016 Last Assessment & Plan: The patient has SOB which was extensively evaluated, initially it was thought to be from asthma. After seeing the family consumer science teacher and all evaluation complete it was thought to from restriction of the lungs from her weight. She also has sleep apnea, needs oxygen bled into the cpap machine, as the desaturations at night time does not normalize with out bleeding oxygen in. Today we checked her oxygen , the results are below. resting with o2 at 3liters- 91% resting room air o2 sat- 90% activity room air o2 sat- 84% activity with nc at 3liters- 91% Urinary incontinence 02/09/2013 014 Last Assessment & Plan: Patient is having the incontinence for a month. She is on vesicare but it does not help her. Prior to this she had some leakage and dribbling but it was never this bad. She has been having a lot of accidents in the last month. She is indeed a very complex patient and i would like to refer her to a Urologist so he can evaluate her bladder dynamics. Schizophrenia 01/04/2013 02/06/2014 Overview: Dr Delaney is her psychologist . Has not seen him for a year. Patient says that the diagnosis of schizophrenia was taken off the diagnosis. Last Assessment & Plan: Patients notes indicates, that she has schizophrenia. Has been on Thorazine, haldol and invega. These drugs gave her tardive dyskinesia. She was put on tetrabenzine for it, worked miracles with her and then she got some parkinson's like features. She couldn't even feed herself. She tried the medication twice. Currently she is not on any psychotic medications. Movement disorder 12/28/2012 08/12/2016 Last Assessment & Plan: Patient is here today, sitting in front of me, very restless, constantly moving her feet, knees, things, neck, in what looks like tardive dyskinesia. It happens 2/3 times a week continues for many hours before she can get Rest from it, she said starting or increasing doses of neurontin, have not made the episodes any worse. She can talk to us without a problem and although she looks very uncomfortable to me she says he is doing fine and this will just pass. She is on requip. And recently started on Gabapentin, we are decreasing her requip. She was on haldol many years ago she says for her depression. She says she has parkinsons and told me she is taking propranolol for it. I thinks she has not got it right. She does not know of any aggravating and relieving factors for these episodes. Wheezing 11/29/2012 08/12/2016 Last Assessment & Plan: Patient is audibly wheezing right now. She recently had asthmatic bronchitis and pneumonia, said she is prone to have it. had a course of levaquin. Steroids and bronchodilators. Schizoaffective disorder 11/15/201210/2016 Overview: [facility] But [facility] it according to her. Last Assessment & Plan: [facility], But they changed it according to her. Parkinson disease 11/15/2012 12/03/2017 Overview: Radha [place], [place] I went through a lot of DR. Cevallos notes [facility]. he does not seem to think she has parkinson's. She had drug induced parkinson's like symptoms that resolved when she stopped taking the inciting medications. Last Assessment & Plan: She will send me a note from him of his latest assessment. documented as of this encounter (statuses as of 12/04/2022) [facility]2017 History of Past illness Narrative* Problem Noted Date Diagnosed Date Resolved Date Obesity, Class III, BMI >= 4 0 (morbid obesity) ([facility]) E66.01 08/26/2016 07/08/2022 Last Assessment & Plan: Assessment: Body mass index is 40.17 kg/m . Post-operative pain 07/10/2016 08/13/19 17 Hypomagnesemia 07/10/2016 07/10/2016 Full incontinence of feces 07/08/2016 0 07/10/2016 Ankle instability 04/07/2016 08/12/2016 Posterior tibial tendonitis 04/07/2016 08/12/2016 Trigger thumb of right hand 11/04/2015 08/12/2016 Cramp in muscle 04/15/2015 08/12/2016 Primary insomnia 03/19/2015 08/12/2016 Last Assessment & Plan: Struggling with insomnia Pain in left knee 12/03/2014 08/12/2016 Overview: Patient has left knee pain , that got better with PT. Last Assessment & Plan: She is going for PT and now she feels better. significantly Weakness of left leg 11/04/2014 017 Pain in joint, lower leg 02/19/2014 Tingling in extremities 10/11/201309/16 Overview: She is having tingling in her left thigh, that comes and goes. Going on for a couple months , but since the last 2 weeks she has been having it all the time. Last Assessment & Plan: She is having tingling in her left thigh, that comes and goes. Going on for a couple months , but since the last 2 weeks she has been having it all the time. Urgency of urination 03/09/2013 014 Frequency of urination 03/09/201307/11 Last Assessment & Plan: Urinary incontinence is being followed and evaluated by Dr Vazquez, she is having some urodynamic studies done. i reveiwed Dr. Fernandez notes. Obesity 03/09/2013 10/06/2016 Overview: 04/25/13 BMI 48.43. Normal BMI 18.5-25, normal weight range of 112-150 pounds in a person 5 feet 5 inches tall. Last Assessment & Plan: Gaining weight since she has not been able to exercise due to her surgeries. Nausea 02/09/2013 08/12/2016 Last Assessment & Plan: Patient has some nausea recently, is on macrobid for suspected UTI, when she came in last week. Since all her tests are negative including urine culture.i am discontinuing that SOB (shortness of breath) on exertion 02/09/2013 08/12/2016 Last Assessment & Plan: The patient has SOB which was extensively evaluated, initially it was thought to be from asthma. After seeing the family consumer science teacher and all evaluation complete it was thought to from restriction of the lungs from her weight. She also has sleep apnea, needs oxygen bled into the cpap machine, as the desaturations at night time does not normalize with out bleeding oxygen in. Today we checked her oxygen , the results are below. resting with o2 at 3liters- 91% resting room air o2 sat- 90% activity room air o2 sat- 84% activity with nc at 3liters- 91% Urinary incontinence 02/09/2013 014 Last Assessment & Plan: Patient is having the incontinence for a month. She is on vesicare but it does not help her. Prior to this she had some leakage and dribbling but it was never this bad. She has been having a lot of accidents in the last month. She is indeed a very complex patient and i would like to refer her to a Urologist so he can evaluate her bladder dynamics. Schizophrenia 01/04/2013 02/06/2014 Overview: Dr Delaney is her psychologist . Has not seen him for a year. Patient says that the diagnosis of schizophrenia was taken off the diagnosis. Last Assessment & Plan: Patients notes indicates, that she has schizophrenia. Has been on Thorazine, haldol and invega. These drugs gave her tardive dyskinesia. She was put on tetrabenzine for it, worked miracles with her and then she got some parkinson's like features. She couldn't even feed herself. She tried the medication twice. Currently she is not on any psychotic medications. Movement disorder 12/28/2012 08/12/2016 Last Assessment & Plan: Patient is here today, sitting in front of me, very restless, constantly moving her feet, knees, things, neck, in what looks like tardive dyskinesia. It happens 2/3 times a week continues for many hours before she can get Rest from it, she said starting or increasing doses of neurontin, have not made the episodes any worse. She can talk to us without a problem and although she looks very uncomfortable to me she says he is doing fine and this will just pass. She is on requip. And recently started on Gabapentin, we are decreasing her requip. She was on haldol many years ago she says for her depression. She says she has parkinsons and told me she is taking propranolol for it. I thinks she has not got it right. She does not know of any aggravating and relieving factors for these episodes. Wheezing 11/29/2012 08/12/2016 Last Assessment & Plan: Patient is audibly wheezing right now. She recently had asthmatic bronchitis and pneumonia, said she is prone to have it. had a course of levaquin. Steroids and bronchodilators. Schizoaffective disorder 11/15/201210/2016 Overview: [facility] But [facility] it according to her. Last Assessment & Plan: [facility], But they changed it according to her. Parkinson disease 11/15/2012 12/03/2017 Overview: Radha [place], [place] I went through a lot of DR. Cevallos [facility]. he does not seem to think she has parkinson's. She had drug induced parkinson's like symptoms that resolved when she stopped taking the inciting medications. Last Assessment & Plan: She will send me a note from him of his latest assessment. documented as of this encounter (statuses as of 12/07/2022) [facility]2017 History of Past illness Narrative* Problem Noted Date Diagnosed Date Resolved Date Obesity, Class III, BMI >= 4 0 (morbid obesity) ([facility]) E66.01 08/26/2016 07/08/2022 Last Assessment & Plan: Assessment: Body mass index is 40.17 kg/m . Post-operative pain 07/10/2016 08/13/19 17 Hypomagnesemia 07/10/2016 07/10/2016 Full incontinence of feces 07/08/2016 0 07/10/2016 Ankle instability 04/07/2016 08/12/2016 Posterior tibial tendonitis 04/07/2016 08/12/2016 Trigger thumb of right hand 11/04/2015 08/12/2016 Cramp in muscle 04/15/2015 08/12/2016 Primary insomnia 03/19/2015 08/12/2016 Last Assessment & Plan: Struggling with insomnia Pain in left knee 12/03/2014 08/12/2016 Overview: Patient has left knee pain , that got better with PT. Last Assessment & Plan: She is going for PT and now she feels better. significantly Weakness of left leg 11/04/2014 017 Pain in joint, lower leg 02/19/2014 Tingling in extremities 10/11/201309/16 Overview: She is having tingling in her left thigh, that comes and goes. Going on for a couple months , but since the last 2 weeks she has been having it all the time. Last Assessment & Plan: She is having tingling in her left thigh, that comes and goes. Going on for a couple months , but since the last 2 weeks she has been having it all the time. Urgency of urination 03/09/2013 014 Frequency of urination 03/09/201307/11 Last Assessment & Plan: Urinary incontinence is being followed and evaluated by Dr Vazquez, she is having some urodynamic studies done. i reveiwed Dr. Fernandez notes. Obesity 03/09/2013 10/06/2016 Overview: 04/25/13 BMI 48.43. Normal BMI 18.5-25, normal weight range of 112-150 pounds in a person 5 feet 5 inches tall. Last Assessment & Plan: Gaining weight since she has not been able to exercise due to her surgeries. Nausea 02/09/2013 08/12/2016 Last Assessment & Plan: Patient has some nausea recently, is on macrobid for suspected UTI, when she came in last week. Since all her tests are negative including urine culture.i am discontinuing that SOB (shortness of breath) on exertion 02/09/2013 08/12/2016 Last Assessment & Plan: The patient has SOB which was extensively evaluated, initially it was thought to be from asthma. After seeing the family consumer science teacher and all evaluation complete it was thought to from restriction of the lungs from her weight. She also has sleep apnea, needs oxygen bled into the cpap machine, as the desaturations at night time does not normalize with out bleeding oxygen in. Today we checked her oxygen , the results are below. resting with o2 at 3liters- 91% resting room air o2 sat- 90% activity room air o2 sat- 84% activity with nc at 3liters- 91% Urinary incontinence 02/09/2013 014 Last Assessment & Plan: Patient is having the incontinence for a month. She is on vesicare but it does not help her. Prior to this she had some leakage and dribbling but it was never this bad. She has been having a lot of accidents in the last month. She is indeed a very complex patient and i would like to refer her to a Urologist so he can evaluate her bladder dynamics. Schizophrenia 01/04/2013 02/06/2014 Overview: Dr Delaney is her psychologist . Has not seen him for a year. Patient says that the diagnosis of schizophrenia was taken off the diagnosis. Last Assessment & Plan: Patients notes indicates, that she has schizophrenia. Has been on Thorazine, haldol and invega. These drugs gave her tardive dyskinesia. She was put on tetrabenzine for it, worked miracles with her and then she got some parkinson's like features. She couldn't even feed herself. She tried the medication twice. Currently she is not on any psychotic medications. Movement disorder 12/28/2012 08/12/2016 Last Assessment & Plan: Patient is here today, sitting in front of me, very restless, constantly moving her feet, knees, things, neck, in what looks like tardive dyskinesia. It happens 2/3 times a week continues for many hours before she can get Rest from it, she said starting or increasing doses of neurontin, have not made the episodes any worse. She can talk to us without a problem and although she looks very uncomfortable to me she says he is doing fine and this will just pass. She is on requip. And recently started on Gabapentin, we are decreasing her requip. She was on haldol many years ago she says for her depression. She says she has parkinsons and told me she is taking propranolol for it. I thinks she has not got it right. She does not know of any aggravating and relieving factors for these episodes. Wheezing 11/29/2012 08/12/2016 Last Assessment & Plan: Patient is audibly wheezing right now. She recently had asthmatic bronchitis and pneumonia, said she is prone to have it. had a course of levaquin. Steroids and bronchodilators. Schizoaffective disorder 11/15/201210/2016 Overview: [facility] But [facility] it according to her. Last Assessment & Plan: [facility], But they changed it according to her. Parkinson disease 11/15/2012 12/03/2017 Overview: [place], [place] I went through a lot of [facility]evallos [facility]. he does not seem to think she has parkinson's. She had drug induced parkinson's like symptoms that resolved when she stopped taking the inciting medications. Last Assessment & Plan: She will send me a note from him of his latest assessment. documented as of this encounter (statuses as of 12/11/2022) [facility]2017 History of Past illness Narrative* Problem Noted Date Diagnosed Date Resolved Date Obesity, Class III, BMI >= 4 0 (morbid obesity) ([facility]) E66.01 08/26/2016 07/08/2022 Last Assessment & Plan: Assessment: Body mass index is 40.17 kg/m . Post-operative pain 07/10/2016 08/13/19 17 Hypomagnesemia 07/10/2016 07/10/2016 Full incontinence of feces 07/08/2016 0 07/10/2016 Ankle instability 04/07/2016 08/12/2016 Posterior tibial tendonitis 04/07/2016 08/12/2016 Trigger thumb of right hand 11/04/2015 08/12/2016 Cramp in muscle 04/15/2015 08/12/2016 Primary insomnia 03/19/2015 08/12/2016 Last Assessment & Plan: Struggling with insomnia Pain in left knee 12/03/2014 08/12/2016 Overview: Patient has left knee pain , that got better with PT. Last Assessment & Plan: She is going for PT and now she feels better. significantly Weakness of left leg 11/04/2014 017 Pain in joint, lower leg 02/19/2014 Tingling in extremities 10/11/201309/16 Overview: She is having tingling in her left thigh, that comes and goes. Going on for a couple months , but since the last 2 weeks she has been having it all the time. Last Assessment & Plan: She is having tingling in her left thigh, that comes and goes. Going on for a couple months , but since the last 2 weeks she has been having it all the time. Urgency of urination 03/09/2013 014 Frequency of urination 03/09/201307/11 Last Assessment & Plan: Urinary incontinence is being followed and evaluated by Dr Vazquez, she is having some urodynamic studies done. i reveiwed Dr. Fernandez notes. Obesity 03/09/2013 10/06/2016 Overview: 04/25/13 BMI 48.43. Normal BMI 18.5-25, normal weight range of 112-150 pounds in a person 5 feet 5 inches tall. Last Assessment & Plan: Gaining weight since she has not been able to exercise due to her surgeries. Nausea 02/09/2013 08/12/2016 Last Assessment & Plan: Patient has some nausea recently, is on macrobid for suspected UTI, when she came in last week. Since all her tests are negative including urine culture.i am discontinuing that SOB (shortness of breath) on exertion 02/09/2013 08/12/2016 Last Assessment & Plan: The patient has SOB which was extensively evaluated, initially it was thought to be from asthma. After seeing the family consumer science teacher and all evaluation complete it was thought to from restriction of the lungs from her weight. She also has sleep apnea, needs oxygen bled into the cpap machine, as the desaturations at night time does not normalize with out bleeding oxygen in. Today we checked her oxygen , the results are below. resting with o2 at 3liters- 91% resting room air o2 sat- 90% activity room air o2 sat- 84% activity with nc at 3liters- 91% Urinary incontinence 02/09/2013 014 Last Assessment & Plan: Patient is having the incontinence for a month. She is on vesicare but it does not help her. Prior to this she had some leakage and dribbling but it was never this bad. She has been having a lot of accidents in the last month. She is indeed a very complex patient and i would like to refer her to a Urologist so he can evaluate her bladder dynamics. Schizophrenia 01/04/2013 02/06/2014 Overview: Dr Delaney is her psychologist . Has not seen him for a year. Patient says that the diagnosis of schizophrenia was taken off the diagnosis. Last Assessment & Plan: Patients notes indicates, that she has schizophrenia. Has been on Thorazine, haldol and invega. These drugs gave her tardive dyskinesia. She was put on tetrabenzine for it, worked miracles with her and then she got some parkinson's like features. She couldn't even feed herself. She tried the medication twice. Currently she is not on any psychotic medications. Movement disorder 12/28/2012 08/12/2016 Last Assessment & Plan: Patient is here today, sitting in front of me, very restless, constantly moving her feet, knees, things, neck, in what looks like tardive dyskinesia. It happens 2/3 times a week continues for many hours before she can get Rest from it, she said starting or increasing doses of neurontin, have not made the episodes any worse. She can talk to us without a problem and although she looks very uncomfortable to me she says he is doing fine and this will just pass. She is on requip. And recently started on Gabapentin, we are decreasing her requip. She was on haldol many years ago she says for her depression. She says she has parkinsons and told me she is taking propranolol for it. I thinks she has not got it right. She does not know of any aggravating and relieving factors for these episodes. Wheezing 11/29/2012 08/12/2016 Last Assessment & Plan: Patient is audibly wheezing right now. She recently had asthmatic bronchitis and pneumonia, said she is prone to have it. had a course of levaquin. Steroids and bronchodilators. Schizoaffective disorder 11/15/201210/2016 Overview: [facility] But [facility] it according to her. Last Assessment & Plan: [facility], But they changed it according to her. Parkinson disease 11/15/2012 12/03/2017 Overview: [place], [place] I went through a lot of [facility]. [facility]allos [facility]. he does not seem to think she has parkinson's. She had drug induced parkinson's like symptoms that resolved when she stopped taking the inciting medications. Last Assessment & Plan: She will send me a note from him of his latest assessment. documented as of this encounter (statuses as of 12/20/2022) [facility]07-12-2017 History of Past illness Narrative* Problem Noted Date Diagnosed Date Resolved Date Obesity, Class III, BMI >= 4 0 (morbid obesity) ([facility]) E66.01 08/26/2016 07/08/2022 Last Assessment & Plan: Assessment: Body mass index is 40.17 kg/m . Post-operative pain 07/10/2016 08/13/19 17 Hypomagnesemia 07/10/2016 07/10/2016 Full incontinence of feces 07/08/2016 0 07/10/2016 Ankle instability 04/07/2016 08/12/2016 Posterior tibial tendonitis 04/07/2016 08/12/2016 Trigger thumb of right hand 11/04/2015 08/12/2016 Cramp in muscle 04/15/2015 08/12/2016 Primary insomnia 03/19/2015 08/12/2016 Last Assessment & Plan: Struggling with insomnia Pain in left knee 12/03/2014 08/12/2016 Overview: Patient has left knee pain , that got better with PT. Last Assessment & Plan: She is going for PT and now she feels better. significantly Weakness of left leg 11/04/2014 017 Pain in joint, lower leg 02/19/2014 Tingling in extremities 10/11/201309/16 Overview: She is having tingling in her left thigh, that comes and goes. Going on for a couple months , but since the last 2 weeks she has been having it all the time. Last Assessment & Plan: She is having tingling in her left thigh, that comes and goes. Going on for a couple months , but since the last 2 weeks she has been having it all the time. Urgency of urination 03/09/2013 014 Frequency of urination 03/09/201307/11 Last Assessment & Plan: Urinary incontinence is being followed and evaluated by Dr Vazquez, she is having some urodynamic studies done. i reveiwed Dr. Fernandez notes. Obesity 03/09/2013 10/06/2016 Overview: 04/25/13 BMI 48.43. Normal BMI 18.5-25, normal weight range of 112-150 pounds in a person 5 feet 5 inches tall. Last Assessment & Plan: Gaining weight since she has not been able to exercise due to her surgeries. Nausea 02/09/2013 08/12/2016 Last Assessment & Plan: Patient has some nausea recently, is on macrobid for suspected UTI, when she came in last week. Since all her tests are negative including urine culture.i am discontinuing that SOB (shortness of breath) on exertion 02/09/2013 08/12/2016 Last Assessment & Plan: The patient has SOB which was extensively evaluated, initially it was thought to be from asthma. After seeing the family consumer science teacher and all evaluation complete it was thought to from restriction of the lungs from her weight. She also has sleep apnea, needs oxygen bled into the cpap machine, as the desaturations at night time does not normalize with out bleeding oxygen in. Today we checked her oxygen , the results are below. resting with o2 at 3liters- 91% resting room air o2 sat- 90% activity room air o2 sat- 84% activity with nc at 3liters- 91% Urinary incontinence 02/09/2013 014 Last Assessment & Plan: Patient is having the incontinence for a month. She is on vesicare but it does not help her. Prior to this she had some leakage and dribbling but it was never this bad. She has been having a lot of accidents in the last month. She is indeed a very complex patient and i would like to refer her to a Urologist so he can evaluate her bladder dynamics. Schizophrenia 01/04/2013 02/06/2014 Overview: Dr Delaney is her psychologist . Has not seen him for a year. Patient says that the diagnosis of schizophrenia was taken off the diagnosis. Last Assessment & Plan: Patients notes indicates, that she has schizophrenia. Has been on Thorazine, haldol and invega. These drugs gave her tardive dyskinesia. She was put on tetrabenzine for it, worked miracles with her and then she got some parkinson's like features. She couldn't even feed herself. She tried the medication twice. Currently she is not on any psychotic medications. Movement disorder 12/28/2012 08/12/2016 Last Assessment & Plan: Patient is here today, sitting in front of me, very restless, constantly moving her feet, knees, things, neck, in what looks like tardive dyskinesia. It happens 2/3 times a week continues for many hours before she can get Rest from it, she said starting or increasing doses of neurontin, have not made the episodes any worse. She can talk to us without a problem and although she looks very uncomfortable to me she says he is doing fine and this will just pass. She is on requip. And recently started on Gabapentin, we are decreasing her requip. She was on haldol many years ago she says for her depression. She says she has parkinsons and told me she is taking propranolol for it. I thinks she has not got it right. She does not know of any aggravating and relieving factors for these episodes. Wheezing 11/29/2012 08/12/2016 Last Assessment & Plan: Patient is audibly wheezing right now. She recently had asthmatic bronchitis and pneumonia, said she is prone to have it. had a course of levaquin. Steroids and bronchodilators. Schizoaffective disorder 11/15/201210/2016 Overview: [facility] But [facility] it according to her. Last Assessment & Plan: [facility], But they changed it according to her. Parkinson disease 11/15/2012 12/03/2017 Overview: Rad[place], [place] I went through a lot of DR. Cevallos [facility]. he does not seem to think she has parkinson's. She had drug induced parkinson's like symptoms that resolved when she stopped taking the inciting medications. Last Assessment & Plan: She will send me a note from him of his latest assessment. documented as of this encounter (statuses as of 12/20/2022) [facility]2017 History of Past illness Narrative* Problem Noted Date Diagnosed Date Resolved Date Obesity, Class III, BMI >= 4 0 (morbid obesity) ([facility]) E66.01 08/26/2016 07/08/2022 Last Assessment & Plan: Assessment: Body mass index is 40.17 kg/m . Post-operative pain 07/10/2016 08/13/19 17 Hypomagnesemia 07/10/2016 07/10/2016 Full incontinence of feces 07/08/2016 0 07/10/2016 Ankle instability 04/07/2016 08/12/2016 Posterior tibial tendonitis 04/07/2016 08/12/2016 Trigger thumb of right hand 11/04/2015 08/12/2016 Cramp in muscle 04/15/2015 08/12/2016 Primary insomnia 03/19/2015 08/12/2016 Last Assessment & Plan: Struggling with insomnia Pain in left knee 12/03/2014 08/12/2016 Overview: Patient has left knee pain , that got better with PT. Last Assessment & Plan: She is going for PT and now she feels better. significantly Weakness of left leg 11/04/2014 017 Pain in joint, lower leg 02/19/2014 Tingling in extremities 10/11/201309/16 Overview: She is having tingling in her left thigh, that comes and goes. Going on for a couple months , but since the last 2 weeks she has been having it all the time. Last Assessment & Plan: She is having tingling in her left thigh, that comes and goes. Going on for a couple months , but since the last 2 weeks she has been having it all the time. Urgency of urination 03/09/2013 014 Frequency of urination 03/09/201307/11 Last Assessment & Plan: Urinary incontinence is being followed and evaluated by Dr Vazquez, she is having some urodynamic studies done. i reveiwed Dr. Fernandez notes. Obesity 03/09/2013 10/06/2016 Overview: 04/25/13 BMI 48.43. Normal BMI 18.5-25, normal weight range of 112-150 pounds in a person 5 feet 5 inches tall. Last Assessment & Plan: Gaining weight since she has not been able to exercise due to her surgeries. Nausea 02/09/2013 08/12/2016 Last Assessment & Plan: Patient has some nausea recently, is on macrobid for suspected UTI, when she came in last week. Since all her tests are negative including urine culture.i am discontinuing that SOB (shortness of breath) on exertion 02/09/2013 08/12/2016 Last Assessment & Plan: The patient has SOB which was extensively evaluated, initially it was thought to be from asthma. After seeing the family consumer science teacher and all evaluation complete it was thought to from restriction of the lungs from her weight. She also has sleep apnea, needs oxygen bled into the cpap machine, as the desaturations at night time does not normalize with out bleeding oxygen in. Today we checked her oxygen , the results are below. resting with o2 at 3liters- 91% resting room air o2 sat- 90% activity room air o2 sat- 84% activity with nc at 3liters- 91% Urinary incontinence 02/09/2013 014 Last Assessment & Plan: Patient is having the incontinence for a month. She is on vesicare but it does not help her. Prior to this she had some leakage and dribbling but it was never this bad. She has been having a lot of accidents in the last month. She is indeed a very complex patient and i would like to refer her to a Urologist so he can evaluate her bladder dynamics. Schizophrenia 01/04/2013 02/06/2014 Overview: Dr Delaney is her psychologist . Has not seen him for a year. Patient says that the diagnosis of schizophrenia was taken off the diagnosis. Last Assessment & Plan: Patients notes indicates, that she has schizophrenia. Has been on Thorazine, haldol and invega. These drugs gave her tardive dyskinesia. She was put on tetrabenzine for it, worked miracles with her and then she got some parkinson's like features. She couldn't even feed herself. She tried the medication twice. Currently she is not on any psychotic medications. Movement disorder 12/28/2012 08/12/2016 Last Assessment & Plan: Patient is here today, sitting in front of me, very restless, constantly moving her feet, knees, things, neck, in what looks like tardive dyskinesia. It happens 2/3 times a week continues for many hours before she can get Rest from it, she said starting or increasing doses of neurontin, have not made the episodes any worse. She can talk to us without a problem and although she looks very uncomfortable to me she says he is doing fine and this will just pass. She is on requip. And recently started on Gabapentin, we are decreasing her requip. She was on haldol many years ago she says for her depression. She says she has parkinsons and told me she is taking propranolol for it. I thinks she has not got it right. She does not know of any aggravating and relieving factors for these episodes. Wheezing 11/29/2012 08/12/2016 Last Assessment & Plan: Patient is audibly wheezing right now. She recently had asthmatic bronchitis and pneumonia, said she is prone to have it. had a course of levaquin. Steroids and bronchodilators. Schizoaffective disorder 11/15/201210/2016 Overview: [facility], But [facility] it according to her. Last Assessment & Plan: [facility], But they changed it according to her. Parkinson disease 11/15/2012 12/03/2017 Overview: Radha [place], [place] I went through a lot of DR. Cevallos notes from [facility]. he does not seem to think she has parkinson's. She had drug induced parkinson's like symptoms that resolved when she stopped taking the inciting medications. Last Assessment & Plan: She will send me a note from him of his latest assessment. documented as of this encounter (statuses as of 01/06/2023) [facility]07[facility]2017 History of Past illness Narrative* Problem Noted Date Diagnosed Date Resolved Date Obesity, Class III, BMI >= 4 0 (morbid obesity) ([facility]) E66.01 08/26/2016 07/08/2022 Last Assessment & Plan: Assessment: Body mass index is 40.17 kg/m . Post-operative pain 07/10/2016 08/13/19 17 Hypomagnesemia 07/10/2016 07/10/2016 Full incontinence of feces 07/08/2016 0 07/10/2016 Ankle instability 04/07/2016 08/12/2016 Posterior tibial tendonitis 04/07/2016 08/12/2016 Trigger thumb of right hand 11/04/2015 08/12/2016 Cramp in muscle 04/15/2015 08/12/2016 Primary insomnia 03/19/2015 08/12/2016 Last Assessment & Plan: Struggling with insomnia Pain in left knee 12/03/2014 08/12/2016 Overview: Patient has left knee pain , that got better with PT. Last Assessment & Plan: She is going for PT and now she feels better. significantly Weakness of left leg 11/04/2014 017 Pain in joint, lower leg 02/19/2014 Tingling in extremities 10/11/201309/16 Overview: She is having tingling in her left thigh, that comes and goes. Going on for a couple months , but since the last 2 weeks she has been having it all the time. Last Assessment & Plan: She is having tingling in her left thigh, that comes and goes. Going on for a couple months , but since the last 2 weeks she has been having it all the time. Urgency of urination 03/09/2013 014 Frequency of urination 03/09/201307/11 Last Assessment & Plan: Urinary incontinence is being followed and evaluated by Dr Vazquez, she is having some urodynamic studies done. i reveiwed Dr. Fernandez notes. Obesity 03/09/2013 10/06/2016 Overview: 04/25/13 BMI 48.43. Normal BMI 18.5-25, normal weight range of 112-150 pounds in a person 5 feet 5 inches tall. Last Assessment & Plan: Gaining weight since she has not been able to exercise due to her surgeries. Nausea 02/09/2013 08/12/2016 Last Assessment & Plan: Patient has some nausea recently, is on macrobid for suspected UTI, when she came in last week. Since all her tests are negative including urine culture.i am discontinuing that SOB (shortness of breath) on exertion 02/09/2013 08/12/2016 Last Assessment & Plan: The patient has SOB which was extensively evaluated, initially it was thought to be from asthma. After seeing the family consumer science teacher and all evaluation complete it was thought to from restriction of the lungs from her weight. She also has sleep apnea, needs oxygen bled into the cpap machine, as the desaturations at night time does not normalize with out bleeding oxygen in. Today we checked her oxygen , the results are below. resting with o2 at 3liters- 91% resting room air o2 sat- 90% activity room air o2 sat- 84% activity with nc at 3liters- 91% Urinary incontinence 02/09/2013 014 Last Assessment & Plan: Patient is having the incontinence for a month. She is on vesicare but it does not help her. Prior to this she had some leakage and dribbling but it was never this bad. She has been having a lot of accidents in the last month. She is indeed a very complex patient and i would like to refer her to a Urologist so he can evaluate her bladder dynamics. Schizophrenia 01/04/2013 02/06/2014 Overview: Dr Delaney is her psychologist . Has not seen him for a year. Patient says that the diagnosis of schizophrenia was taken off the diagnosis. Last Assessment & Plan: Patients notes indicates, that she has schizophrenia. Has been on Thorazine, haldol and invega. These drugs gave her tardive dyskinesia. She was put on tetrabenzine for it, worked miracles with her and then she got some parkinson's like features. She couldn't even feed herself. She tried the medication twice. Currently she is not on any psychotic medications. Movement disorder 12/28/2012 08/12/2016 Last Assessment & Plan: Patient is here today, sitting in front of me, very restless, constantly moving her feet, knees, things, neck, in what looks like tardive dyskinesia. It happens 2/3 times a week continues for many hours before she can get Rest from it, she said starting or increasing doses of neurontin, have not made the episodes any worse. She can talk to us without a problem and although she looks very uncomfortable to me she says he is doing fine and this will just pass. She is on requip. And recently started on Gabapentin, we are decreasing her requip. She was on haldol many years ago she says for her depression. She says she has parkinsons and told me she is taking propranolol for it. I thinks she has not got it right. She does not know of any aggravating and relieving factors for these episodes. Wheezing 11/29/2012 08/12/2016 Last Assessment & Plan: Patient is audibly wheezing right now. She recently had asthmatic bronchitis and pneumonia, said she is prone to have it. had a course of levaquin. Steroids and bronchodilators. Schizoaffective disorder 11/15/201210/2016 Overview: [facility] But [facility] it according to her. Last Assessment & Plan: [facility], But they changed it according to her. Parkinson disease 11/15/2012 12/03/2017 Overview: [place], [place] I went through a lot of DR. Cevallos [facility]. he does not seem to think she has parkinson's. She had drug induced parkinson's like symptoms that resolved when she stopped taking the inciting medications. Last Assessment & Plan: She will send me a note from him of his latest assessment. documented as of this encounter (statuses as of 01/13/2023) [facility]2017 History of Past illness Narrative* Problem Noted Date Diagnosed Date Resolved Date Obesity, Class III, BMI >= 4 0 (morbid obesity) ([facility]) E66.01 08/26/2016 07/08/2022 Last Assessment & Plan: Assessment: Body mass index is 40.17 kg/m . Post-operative pain 07/10/2016 08/13/19 17 Hypomagnesemia 07/10/2016 07/10/2016 Full incontinence of feces 07/08/2016 0 07/10/2016 Ankle instability 04/07/2016 08/12/2016 Posterior tibial tendonitis 04/07/2016 08/12/2016 Trigger thumb of right hand 11/04/2015 08/12/2016 Cramp in muscle 04/15/2015 08/12/2016 Primary insomnia 03/19/2015 08/12/2016 Last Assessment & Plan: Struggling with insomnia Pain in left knee 12/03/2014 08/12/2016 Overview: Patient has left knee pain , that got better with PT. Last Assessment & Plan: She is going for PT and now she feels better. significantly Weakness of left leg 11/04/2014 017 Pain in joint, lower leg 02/19/2014 Tingling in extremities 10/11/201309/16 Overview: She is having tingling in her left thigh, that comes and goes. Going on for a couple months , but since the last 2 weeks she has been having it all the time. Last Assessment & Plan: She is having tingling in her left thigh, that comes and goes. Going on for a couple months , but since the last 2 weeks she has been having it all the time. Urgency of urination 03/09/2013 014 Frequency of urination 03/09/201307/11 Last Assessment & Plan: Urinary incontinence is being followed and evaluated by Dr Vazquez, she is having some urodynamic studies done. i reveiwed Dr. Fernandez notes. Obesity 03/09/2013 10/06/2016 Overview: 04/25/13 BMI 48.43. Normal BMI 18.5-25, normal weight range of 112-150 pounds in a person 5 feet 5 inches tall. Last Assessment & Plan: Gaining weight since she has not been able to exercise due to her surgeries. Nausea 02/09/2013 08/12/2016 Last Assessment & Plan: Patient has some nausea recently, is on macrobid for suspected UTI, when she came in last week. Since all her tests are negative including urine culture.i am discontinuing that SOB (shortness of breath) on exertion 02/09/2013 08/12/2016 Last Assessment & Plan: The patient has SOB which was extensively evaluated, initially it was thought to be from asthma. After seeing the family consumer science teacher and all evaluation complete it was thought to from restriction of the lungs from her weight. She also has sleep apnea, needs oxygen bled into the cpap machine, as the desaturations at night time does not normalize with out bleeding oxygen in. Today we checked her oxygen , the results are below. resting with o2 at 3liters- 91% resting room air o2 sat- 90% activity room air o2 sat- 84% activity with nc at 3liters- 91% Urinary incontinence 02/09/2013 014 Last Assessment & Plan: Patient is having the incontinence for a month. She is on vesicare but it does not help her. Prior to this she had some leakage and dribbling but it was never this bad. She has been having a lot of accidents in the last month. She is indeed a very complex patient and i would like to refer her to a Urologist so he can evaluate her bladder dynamics. Schizophrenia 01/04/2013 02/06/2014 Overview: Dr Delaney is her psychologist . Has not seen him for a year. Patient says that the diagnosis of schizophrenia was taken off the diagnosis. Last Assessment & Plan: Patients notes indicates, that she has schizophrenia. Has been on Thorazine, haldol and invega. These drugs gave her tardive dyskinesia. She was put on tetrabenzine for it, worked miracles with her and then she got some parkinson's like features. She couldn't even feed herself. She tried the medication twice. Currently she is not on any psychotic medications. Movement disorder 12/28/2012 08/12/2016 Last Assessment & Plan: Patient is here today, sitting in front of me, very restless, constantly moving her feet, knees, things, neck, in what looks like tardive dyskinesia. It happens 2/3 times a week continues for many hours before she can get Rest from it, she said starting or increasing doses of neurontin, have not made the episodes any worse. She can talk to us without a problem and although she looks very uncomfortable to me she says he is doing fine and this will just pass. She is on requip. And recently started on Gabapentin, we are decreasing her requip. She was on haldol many years ago she says for her depression. She says she has parkinsons and told me she is taking propranolol for it. I thinks she has not got it right. She does not know of any aggravating and relieving factors for these episodes. Wheezing 11/29/2012 08/12/2016 Last Assessment & Plan: Patient is audibly wheezing right now. She recently had asthmatic bronchitis and pneumonia, said she is prone to have it. had a course of levaquin. Steroids and bronchodilators. Schizoaffective disorder 11/15/201210/2016 Overview: [facility] But [facility] it according to her. Last Assessment & Plan: [facility], But they changed it according to her. Parkinson disease 11/15/2012 12/03/2017 Overview: [place], [place] I went through a lot of [facility]. [facility]evallos [facility]. he does not seem to think she has parkinson's. She had drug induced parkinson's like symptoms that resolved when she stopped taking the inciting medications. Last Assessment & Plan: She will send me a note from him of his latest assessment. documented as of this encounter (statuses as of 01/13/2023) [facility] History of Past illness Narrative* Problem Noted Date Diagnosed Date Resolved Date Obesity, Class III, BMI >= 4 0 (morbid obesity) ([facility]) E66.01 08/26/2016 07/08/2022 Last Assessment & Plan: Assessment: Body mass index is 40.17 kg/m . Post-operative pain 07/10/2016 08/13/19 17 Hypomagnesemia 07/10/2016 07/10/2016 Full incontinence of feces 07/08/2016 0 07/10/2016 Ankle instability 04/07/2016 08/12/2016 Posterior tibial tendonitis 04/07/2016 08/12/2016 Trigger thumb of right hand 11/04/2015 08/12/2016 Cramp in muscle 04/15/2015 08/12/2016 Primary insomnia 03/19/2015 08/12/2016 Last Assessment & Plan: Struggling with insomnia Pain in left knee 12/03/2014 08/12/2016 Overview: Patient has left knee pain , that got better with PT. Last Assessment & Plan: She is going for PT and now she feels better. significantly Weakness of left leg 11/04/2014 017 Pain in joint, lower leg 02/19/2014 Tingling in extremities 10/11/201309/16 Overview: She is having tingling in her left thigh, that comes and goes. Going on for a couple months , but since the last 2 weeks she has been having it all the time. Last Assessment & Plan: She is having tingling in her left thigh, that comes and goes. Going on for a couple months , but since the last 2 weeks she has been having it all the time. Urgency of urination 03/09/2013 014 Frequency of urination 03/09/201307/11 Last Assessment & Plan: Urinary incontinence is being followed and evaluated by Dr Vazquez, she is having some urodynamic studies done. i reveiwed Dr. Fernandez notes. Obesity 03/09/2013 10/06/2016 Overview: 04/25/13 BMI 48.43. Normal BMI 18.5-25, normal weight range of 112-150 pounds in a person 5 feet 5 inches tall. Last Assessment & Plan: Gaining weight since she has not been able to exercise due to her surgeries. Nausea 02/09/2013 08/12/2016 Last Assessment & Plan: Patient has some nausea recently, is on macrobid for suspected UTI, when she came in last week. Since all her tests are negative including urine culture.i am discontinuing that SOB (shortness of breath) on exertion 02/09/2013 08/12/2016 Last Assessment & Plan: The patient has SOB which was extensively evaluated, initially it was thought to be from asthma. After seeing the family consumer science teacher and all evaluation complete it was thought to from restriction of the lungs from her weight. She also has sleep apnea, needs oxygen bled into the cpap machine, as the desaturations at night time does not normalize with out bleeding oxygen in. Today we checked her oxygen , the results are below. resting with o2 at 3liters- 91% resting room air o2 sat- 90% activity room air o2 sat- 84% activity with nc at 3liters- 91% Urinary incontinence 02/09/2013 014 Last Assessment & Plan: Patient is having the incontinence for a month. She is on vesicare but it does not help her. Prior to this she had some leakage and dribbling but it was never this bad. She has been having a lot of accidents in the last month. She is indeed a very complex patient and i would like to refer her to a Urologist so he can evaluate her bladder dynamics. Schizophrenia 01/04/2013 02/06/2014 Overview: Dr Delaney is her psychologist . Has not seen him for a year. Patient says that the diagnosis of schizophrenia was taken off the diagnosis. Last Assessment & Plan: Patients notes indicates, that she has schizophrenia. Has been on Thorazine, haldol and invega. These drugs gave her tardive dyskinesia. She was put on tetrabenzine for it, worked miracles with her and then she got some parkinson's like features. She couldn't even feed herself. She tried the medication twice. Currently she is not on any psychotic medications. Movement disorder 12/28/2012 08/12/2016 Last Assessment & Plan: Patient is here today, sitting in front of me, very restless, constantly moving her feet, knees, things, neck, in what looks like tardive dyskinesia. It happens 2/3 times a week continues for many hours before she can get Rest from it, she said starting or increasing doses of neurontin, have not made the episodes any worse. She can talk to us without a problem and although she looks very uncomfortable to me she says he is doing fine and this will just pass. She is on requip. And recently started on Gabapentin, we are decreasing her requip. She was on haldol many years ago she says for her depression. She says she has parkinsons and told me she is taking propranolol for it. I thinks she has not got it right. She does not know of any aggravating and relieving factors for these episodes. Wheezing 11/29/2012 08/12/2016 Last Assessment & Plan: Patient is audibly wheezing right now. She recently had asthmatic bronchitis and pneumonia, said she is prone to have it. had a course of levaquin. Steroids and bronchodilators. Schizoaffective disorder 11/15/201210/2016 Overview: [facility] But [facility] it according to her. Last Assessment & Plan: [facility], But they changed it according to her. Parkinson disease 11/15/2012 12/03/2017 Overview: Radha [place], [place] I went through a lot of DR. Cevallos notes [facility]. he does not seem to think she has parkinson's. She had drug induced parkinson's like symptoms that resolved when she stopped taking the inciting medications. Last Assessment & Plan: She will send me a note from him of his latest assessment. documented as of this encounter (statuses as of 01/29/2023) [facility]07-[facility]-2017 History of Past illness Narrative* Problem Noted Date Diagnosed Date Resolved Date Obesity, Class III, BMI >= 4 0 (morbid obesity) ([facility]) E66.01 08/26/2016 07/08/2022 Last Assessment & Plan: Assessment: Body mass index is 40.17 kg/m . Post-operative pain 07/10/2016 08/13/19 17 Hypomagnesemia 07/10/2016 07/10/2016 Full incontinence of feces 07/08/2016 0 07/10/2016 Ankle instability 04/07/2016 08/12/2016 Posterior tibial tendonitis 04/07/2016 08/12/2016 Trigger thumb of right hand 11/04/2015 08/12/2016 Cramp in muscle 04/15/2015 08/12/2016 Primary insomnia 03/19/2015 08/12/2016 Last Assessment & Plan: Struggling with insomnia Pain in left knee 12/03/2014 08/12/2016 Overview: Patient has left knee pain , that got better with PT. Last Assessment & Plan: She is going for PT and now she feels better. significantly Weakness of left leg 11/04/2014 017 Pain in joint, lower leg 02/19/2014 Tingling in extremities 10/11/201309/16 Overview: She is having tingling in her left thigh, that comes and goes. Going on for a couple months , but since the last 2 weeks she has been having it all the time. Last Assessment & Plan: She is having tingling in her left thigh, that comes and goes. Going on for a couple months , but since the last 2 weeks she has been having it all the time. Urgency of urination 03/09/2013 014 Frequency of urination 03/09/201307/11 Last Assessment & Plan: Urinary incontinence is being followed and evaluated by Dr Vazquez, she is having some urodynamic studies done. i reveiwed Dr. Fernandez notes. Obesity 03/09/2013 10/06/2016 Overview: 04/25/13 BMI 48.43. Normal BMI 18.5-25, normal weight range of 112-150 pounds in a person 5 feet 5 inches tall. Last Assessment & Plan: Gaining weight since she has not been able to exercise due to her surgeries. Nausea 02/09/2013 08/12/2016 Last Assessment & Plan: Patient has some nausea recently, is on macrobid for suspected UTI, when she came in last week. Since all her tests are negative including urine culture.i am discontinuing that SOB (shortness of breath) on exertion 02/09/2013 08/12/2016 Last Assessment & Plan: The patient has SOB which was extensively evaluated, initially it was thought to be from asthma. After seeing the family consumer science teacher and all evaluation complete it was thought to from restriction of the lungs from her weight. She also has sleep apnea, needs oxygen bled into the cpap machine, as the desaturations at night time does not normalize with out bleeding oxygen in. Today we checked her oxygen , the results are below. resting with o2 at 3liters- 91% resting room air o2 sat- 90% activity room air o2 sat- 84% activity with nc at 3liters- 91% Urinary incontinence 02/09/2013 014 Last Assessment & Plan: Patient is having the incontinence for a month. She is on vesicare but it does not help her. Prior to this she had some leakage and dribbling but it was never this bad. She has been having a lot of accidents in the last month. She is indeed a very complex patient and i would like to refer her to a Urologist so he can evaluate her bladder dynamics. Schizophrenia 01/04/2013 02/06/2014 Overview: Dr Delaney is her psychologist . Has not seen him for a year. Patient says that the diagnosis of schizophrenia was taken off the diagnosis. Last Assessment & Plan: Patients notes indicates, that she has schizophrenia. Has been on Thorazine, haldol and invega. These drugs gave her tardive dyskinesia. She was put on tetrabenzine for it, worked miracles with her and then she got some parkinson's like features. She couldn't even feed herself. She tried the medication twice. Currently she is not on any psychotic medications. Movement disorder 12/28/2012 08/12/2016 Last Assessment & Plan: Patient is here today, sitting in front of me, very restless, constantly moving her feet, knees, things, neck, in what looks like tardive dyskinesia. It happens 2/3 times a week continues for many hours before she can get Rest from it, she said starting or increasing doses of neurontin, have not made the episodes any worse. She can talk to us without a problem and although she looks very uncomfortable to me she says he is doing fine and this will just pass. She is on requip. And recently started on Gabapentin, we are decreasing her requip. She was on haldol many years ago she says for her depression. She says she has parkinsons and told me she is taking propranolol for it. I thinks she has not got it right. She does not know of any aggravating and relieving factors for these episodes. Wheezing 11/29/2012 08/12/2016 Last Assessment & Plan: Patient is audibly wheezing right now. She recently had asthmatic bronchitis and pneumonia, said she is prone to have it. had a course of levaquin. Steroids and bronchodilators. Schizoaffective disorder 11/15/201210/2016 Overview: [facility] But [facility] it according to her. Last Assessment & Plan: [facility], But they changed it according to her. Parkinson disease 11/15/2012 12/03/2017 Overview: Radha [place], [place] I went through a lot of DR. Cevallos notes from [facility]. he does not seem to think she has parkinson's. She had drug induced parkinson's like symptoms that resolved when she stopped taking the inciting medications. Last Assessment & Plan: She will send me a note from him of his latest assessment. documented as of this encounter (statuses as of 04/02/2023) [facility]2017 History of Past illness Narrative* Problem Noted Date Diagnosed Date Resolved Date Obesity, Class III, BMI >= 4 0 (morbid obesity) ([facility]) E66.01 08/26/2016 07/08/2022 Last Assessment & Plan: Assessment: Body mass index is 40.17 kg/m . Post-operative pain 07/10/2016 08/13/19 17 Hypomagnesemia 07/10/2016 07/10/2016 Full incontinence of feces 07/08/2016 0 07/10/2016 Ankle instability 04/07/2016 08/12/2016 Posterior tibial tendonitis 04/07/2016 08/12/2016 Trigger thumb of right hand 11/04/2015 08/12/2016 Cramp in muscle 04/15/2015 08/12/2016 Primary insomnia 03/19/2015 08/12/2016 Last Assessment & Plan: Struggling with insomnia Pain in left knee 12/03/2014 08/12/2016 Overview: Patient has left knee pain , that got better with PT. Last Assessment & Plan: She is going for PT and now she feels better. significantly Weakness of left leg 11/04/2014 017 Pain in joint, lower leg 02/19/2014 Tingling in extremities 10/11/201309/16 Overview: She is having tingling in her left thigh, that comes and goes. Going on for a couple months , but since the last 2 weeks she has been having it all the time. Last Assessment & Plan: She is having tingling in her left thigh, that comes and goes. Going on for a couple months , but since the last 2 weeks she has been having it all the time. Urgency of urination 03/09/2013 014 Frequency of urination 03/09/201307/11 Last Assessment & Plan: Urinary incontinence is being followed and evaluated by Dr Vazquez, she is having some urodynamic studies done. i reveiwed Dr. Fernandez notes. Obesity 03/09/2013 10/06/2016 Overview: 04/25/13 BMI 48.43. Normal BMI 18.5-25, normal weight range of 112-150 pounds in a person 5 feet 5 inches tall. Last Assessment & Plan: Gaining weight since she has not been able to exercise due to her surgeries. Nausea 02/09/2013 08/12/2016 Last Assessment & Plan: Patient has some nausea recently, is on macrobid for suspected UTI, when she came in last week. Since all her tests are negative including urine culture.i am discontinuing that SOB (shortness of breath) on exertion 02/09/2013 08/12/2016 Last Assessment & Plan: The patient has SOB which was extensively evaluated, initially it was thought to be from asthma. After seeing the family consumer science teacher and all evaluation complete it was thought to from restriction of the lungs from her weight. She also has sleep apnea, needs oxygen bled into the cpap machine, as the desaturations at night time does not normalize with out bleeding oxygen in. Today we checked her oxygen , the results are below. resting with o2 at 3liters- 91% resting room air o2 sat- 90% activity room air o2 sat- 84% activity with nc at 3liters- 91% Urinary incontinence 02/09/2013 014 Last Assessment & Plan: Patient is having the incontinence for a month. She is on vesicare but it does not help her. Prior to this she had some leakage and dribbling but it was never this bad. She has been having a lot of accidents in the last month. She is indeed a very complex patient and i would like to refer her to a Urologist so he can evaluate her bladder dynamics. Schizophrenia 01/04/2013 02/06/2014 Overview: Dr Delaney is her psychologist . Has not seen him for a year. Patient says that the diagnosis of schizophrenia was taken off the diagnosis. Last Assessment & Plan: Patients notes indicates, that she has schizophrenia. Has been on Thorazine, haldol and invega. These drugs gave her tardive dyskinesia. She was put on tetrabenzine for it, worked miracles with her and then she got some parkinson's like features. She couldn't even feed herself. She tried the medication twice. Currently she is not on any psychotic medications. Movement disorder 12/28/2012 08/12/2016 Last Assessment & Plan: Patient is here today, sitting in front of me, very restless, constantly moving her feet, knees, things, neck, in what looks like tardive dyskinesia. It happens 2/3 times a week continues for many hours before she can get Rest from it, she said starting or increasing doses of neurontin, have not made the episodes any worse. She can talk to us without a problem and although she looks very uncomfortable to me she says he is doing fine and this will just pass. She is on requip. And recently started on Gabapentin, we are decreasing her requip. She was on haldol many years ago she says for her depression. She says she has parkinsons and told me she is taking propranolol for it. I thinks she has not got it right. She does not know of any aggravating and relieving factors for these episodes. Wheezing 11/29/2012 08/12/2016 Last Assessment & Plan: Patient is audibly wheezing right now. She recently had asthmatic bronchitis and pneumonia, said she is prone to have it. had a course of levaquin. Steroids and bronchodilators. Schizoaffective disorder 11/15/201210/2016 Overview: [facility] But [facility] it according to her. Last Assessment & Plan: [facility], But they changed it according to her. Parkinson disease 11/15/2012 12/03/2017 Overview: [place], [place] I went through a lot of DR. Cevallos [facility]. he does not seem to think she has parkinson's. She had drug induced parkinson's like symptoms that resolved when she stopped taking the inciting medications. Last Assessment & Plan: She will send me a note from him of his latest assessment. documented as of this encounter (statuses as of 04/15/2023) [facility]2017 History of Past illness Narrative* Problem Noted Date Diagnosed Date Resolved Date Obesity, Class III, BMI >= 4 0 (morbid obesity) ([facility]) E66.01 08/26/2016 07/08/2022 Last Assessment & Plan: Assessment: Body mass index is 40.17 kg/m . Post-operative pain 07/10/2016 08/13/19 17 Hypomagnesemia 07/10/2016 07/10/2016 Full incontinence of feces 07/08/2016 0 07/10/2016 Ankle instability 04/07/2016 08/12/2016 Posterior tibial tendonitis 04/07/2016 08/12/2016 Trigger thumb of right hand 11/04/2015 08/12/2016 Cramp in muscle 04/15/2015 08/12/2016 Primary insomnia 03/19/2015 08/12/2016 Last Assessment & Plan: Struggling with insomnia Pain in left knee 12/03/2014 08/12/2016 Overview: Patient has left knee pain , that got better with PT. Last Assessment & Plan: She is going for PT and now she feels better. significantly Weakness of left leg 11/04/2014 017 Pain in joint, lower leg 02/19/2014 Tingling in extremities 10/11/201309/16 Overview: She is having tingling in her left thigh, that comes and goes. Going on for a couple months , but since the last 2 weeks she has been having it all the time. Last Assessment & Plan: She is having tingling in her left thigh, that comes and goes. Going on for a couple months , but since the last 2 weeks she has been having it all the time. Urgency of urination 03/09/2013 014 Frequency of urination 03/09/201307/11 Last Assessment & Plan: Urinary incontinence is being followed and evaluated by Dr Vazquez, she is having some urodynamic studies done. i reveiwed Dr. Fernandez notes. Obesity 03/09/2013 10/06/2016 Overview: 04/25/13 BMI 48.43. Normal BMI 18.5-25, normal weight range of 112-150 pounds in a person 5 feet 5 inches tall. Last Assessment & Plan: Gaining weight since she has not been able to exercise due to her surgeries. Nausea 02/09/2013 08/12/2016 Last Assessment & Plan: Patient has some nausea recently, is on macrobid for suspected UTI, when she came in last week. Since all her tests are negative including urine culture.i am discontinuing that SOB (shortness of breath) on exertion 02/09/2013 08/12/2016 Last Assessment & Plan: The patient has SOB which was extensively evaluated, initially it was thought to be from asthma. After seeing the family consumer science teacher and all evaluation complete it was thought to from restriction of the lungs from her weight. She also has sleep apnea, needs oxygen bled into the cpap machine, as the desaturations at night time does not normalize with out bleeding oxygen in. Today we checked her oxygen , the results are below. resting with o2 at 3liters- 91% resting room air o2 sat- 90% activity room air o2 sat- 84% activity with nc at 3liters- 91% Urinary incontinence 02/09/2013 014 Last Assessment & Plan: Patient is having the incontinence for a month. She is on vesicare but it does not help her. Prior to this she had some leakage and dribbling but it was never this bad. She has been having a lot of accidents in the last month. She is indeed a very complex patient and i would like to refer her to a Urologist so he can evaluate her bladder dynamics. Schizophrenia 01/04/2013 02/06/2014 Overview: Dr Delaney is her psychologist . Has not seen him for a year. Patient says that the diagnosis of schizophrenia was taken off the diagnosis. Last Assessment & Plan: Patients notes indicates, that she has schizophrenia. Has been on Thorazine, haldol and invega. These drugs gave her tardive dyskinesia. She was put on tetrabenzine for it, worked miracles with her and then she got some parkinson's like features. She couldn't even feed herself. She tried the medication twice. Currently she is not on any psychotic medications. Movement disorder 12/28/2012 08/12/2016 Last Assessment & Plan: Patient is here today, sitting in front of me, very restless, constantly moving her feet, knees, things, neck, in what looks like tardive dyskinesia. It happens 2/3 times a week continues for many hours before she can get Rest from it, she said starting or increasing doses of neurontin, have not made the episodes any worse. She can talk to us without a problem and although she looks very uncomfortable to me she says he is doing fine and this will just pass. She is on requip. And recently started on Gabapentin, we are decreasing her requip. She was on haldol many years ago she says for her depression. She says she has parkinsons and told me she is taking propranolol for it. I thinks she has not got it right. She does not know of any aggravating and relieving factors for these episodes. Wheezing 11/29/2012 08/12/2016 Last Assessment & Plan: Patient is audibly wheezing right now. She recently had asthmatic bronchitis and pneumonia, said she is prone to have it. had a course of levaquin. Steroids and bronchodilators. Schizoaffective disorder 11/15/201210/2016 Overview: [facility] But [facility] it according to her. Last Assessment & Plan: [facility], But they changed it according to her. Parkinson disease 11/15/2012 12/03/2017 Overview: [place], [place] I went through a lot of [facility]evallos [facility]. he does not seem to think she has parkinson's. She had drug induced parkinson's like symptoms that resolved when she stopped taking the inciting medications. Last Assessment & Plan: She will send me a note from him of his latest assessment. documented as of this encounter (statuses as of 04/19/2023) [facility]2017 History of Past illness Narrative* Problem Noted Date Diagnosed Date Resolved Date Obesity, Class III, BMI >= 4 0 (morbid obesity) ([facility]) E66.01 08/26/2016 07/08/2022 Last Assessment & Plan: Assessment: Body mass index is 40.17 kg/m . Post-operative pain 07/10/2016 08/13/19 17 Hypomagnesemia 07/10/2016 07/10/2016 Full incontinence of feces 07/08/2016 0 07/10/2016 Ankle instability 04/07/2016 08/12/2016 Posterior tibial tendonitis 04/07/2016 08/12/2016 Trigger thumb of right hand 11/04/2015 08/12/2016 Cramp in muscle 04/15/2015 08/12/2016 Primary insomnia 03/19/2015 08/12/2016 Last Assessment & Plan: Struggling with insomnia Pain in left knee 12/03/2014 08/12/2016 Overview: Patient has left knee pain , that got better with PT. Last Assessment & Plan: She is going for PT and now she feels better. significantly Weakness of left leg 11/04/2014 017 Pain in joint, lower leg 02/19/2014 Tingling in extremities 10/11/201309/16 Overview: She is having tingling in her left thigh, that comes and goes. Going on for a couple months , but since the last 2 weeks she has been having it all the time. Last Assessment & Plan: She is having tingling in her left thigh, that comes and goes. Going on for a couple months , but since the last 2 weeks she has been having it all the time. Urgency of urination 03/09/2013 014 Frequency of urination 03/09/201307/11 Last Assessment & Plan: Urinary incontinence is being followed and evaluated by Dr Vazquez, she is having some urodynamic studies done. i reveiwed Dr. Fernandez notes. Obesity 03/09/2013 10/06/2016 Overview: 04/25/13 BMI 48.43. Normal BMI 18.5-25, normal weight range of 112-150 pounds in a person 5 feet 5 inches tall. Last Assessment & Plan: Gaining weight since she has not been able to exercise due to her surgeries. Nausea 02/09/2013 08/12/2016 Last Assessment & Plan: Patient has some nausea recently, is on macrobid for suspected UTI, when she came in last week. Since all her tests are negative including urine culture.i am discontinuing that SOB (shortness of breath) on exertion 02/09/2013 08/12/2016 Last Assessment & Plan: The patient has SOB which was extensively evaluated, initially it was thought to be from asthma. After seeing the family consumer science teacher and all evaluation complete it was thought to from restriction of the lungs from her weight. She also has sleep apnea, needs oxygen bled into the cpap machine, as the desaturations at night time does not normalize with out bleeding oxygen in. Today we checked her oxygen , the results are below. resting with o2 at 3liters- 91% resting room air o2 sat- 90% activity room air o2 sat- 84% activity with nc at 3liters- 91% Urinary incontinence 02/09/2013 014 Last Assessment & Plan: Patient is having the incontinence for a month. She is on vesicare but it does not help her. Prior to this she had some leakage and dribbling but it was never this bad. She has been having a lot of accidents in the last month. She is indeed a very complex patient and i would like to refer her to a Urologist so he can evaluate her bladder dynamics. Schizophrenia 01/04/2013 02/06/2014 Overview: Dr Delaney is her psychologist . Has not seen him for a year. Patient says that the diagnosis of schizophrenia was taken off the diagnosis. Last Assessment & Plan: Patients notes indicates, that she has schizophrenia. Has been on Thorazine, haldol and invega. These drugs gave her tardive dyskinesia. She was put on tetrabenzine for it, worked miracles with her and then she got some parkinson's like features. She couldn't even feed herself. She tried the medication twice. Currently she is not on any psychotic medications. Movement disorder 12/28/2012 08/12/2016 Last Assessment & Plan: Patient is here today, sitting in front of me, very restless, constantly moving her feet, knees, things, neck, in what looks like tardive dyskinesia. It happens 2/3 times a week continues for many hours before she can get Rest from it, she said starting or increasing doses of neurontin, have not made the episodes any worse. She can talk to us without a problem and although she looks very uncomfortable to me she says he is doing fine and this will just pass. She is on requip. And recently started on Gabapentin, we are decreasing her requip. She was on haldol many years ago she says for her depression. She says she has parkinsons and told me she is taking propranolol for it. I thinks she has not got it right. She does not know of any aggravating and relieving factors for these episodes. Wheezing 11/29/2012 08/12/2016 Last Assessment & Plan: Patient is audibly wheezing right now. She recently had asthmatic bronchitis and pneumonia, said she is prone to have it. had a course of levaquin. Steroids and bronchodilators. Schizoaffective disorder 11/15/201210/2016 Overview: [facility] But [facility] it according to her. Last Assessment & Plan: [facility], But they changed it according to her. Parkinson disease 11/15/2012 12/03/2017 Overview: Radha [place], [place] I went through a lot of DR. Cevallos [facility]. he does not seem to think she has parkinson's. She had drug induced parkinson's like symptoms that resolved when she stopped taking the inciting medications. Last Assessment & Plan: She will send me a note from him of his latest assessment. documented as of this encounter (statuses as of 04/19/2023) [facility]07-[facility]-2017 History of Past illness Narrative* Problem Noted Date Diagnosed Date Resolved Date Obesity, Class III, BMI >= 4 0 (morbid obesity) ([facility]) E66.01 08/26/2016 07/08/2022 Last Assessment & Plan: Assessment: Body mass index is 40.17 kg/m . Post-operative pain 07/10/2016 08/13/19 17 Hypomagnesemia 07/10/2016 07/10/2016 Full incontinence of feces 07/08/2016 0 07/10/2016 Ankle instability 04/07/2016 08/12/2016 Posterior tibial tendonitis 04/07/2016 08/12/2016 Trigger thumb of right hand 11/04/2015 08/12/2016 Cramp in muscle 04/15/2015 08/12/2016 Primary insomnia 03/19/2015 08/12/2016 Last Assessment & Plan: Struggling with insomnia Pain in left knee 12/03/2014 08/12/2016 Overview: Patient has left knee pain , that got better with PT. Last Assessment & Plan: She is going for PT and now she feels better. significantly Weakness of left leg 11/04/2014 017 Pain in joint, lower leg 02/19/2014 Tingling in extremities 10/11/201309/16 Overview: She is having tingling in her left thigh, that comes and goes. Going on for a couple months , but since the last 2 weeks she has been having it all the time. Last Assessment & Plan: She is having tingling in her left thigh, that comes and goes. Going on for a couple months , but since the last 2 weeks she has been having it all the time. Urgency of urination 03/09/2013 014 Frequency of urination 03/09/201307/11 Last Assessment & Plan: Urinary incontinence is being followed and evaluated by Dr Vazquez, she is having some urodynamic studies done. i reveiwed Dr. Fernandez notes. Obesity 03/09/2013 10/06/2016 Overview: 04/25/13 BMI 48.43. Normal BMI 18.5-25, normal weight range of 112-150 pounds in a person 5 feet 5 inches tall. Last Assessment & Plan: Gaining weight since she has not been able to exercise due to her surgeries. Nausea 02/09/2013 08/12/2016 Last Assessment & Plan: Patient has some nausea recently, is on macrobid for suspected UTI, when she came in last week. Since all her tests are negative including urine culture.i am discontinuing that SOB (shortness of breath) on exertion 02/09/2013 08/12/2016 Last Assessment & Plan: The patient has SOB which was extensively evaluated, initially it was thought to be from asthma. After seeing the family consumer science teacher and all evaluation complete it was thought to from restriction of the lungs from her weight. She also has sleep apnea, needs oxygen bled into the cpap machine, as the desaturations at night time does not normalize with out bleeding oxygen in. Today we checked her oxygen , the results are below. resting with o2 at 3liters- 91% resting room air o2 sat- 90% activity room air o2 sat- 84% activity with nc at 3liters- 91% Urinary incontinence 02/09/2013 014 Last Assessment & Plan: Patient is having the incontinence for a month. She is on vesicare but it does not help her. Prior to this she had some leakage and dribbling but it was never this bad. She has been having a lot of accidents in the last month. She is indeed a very complex patient and i would like to refer her to a Urologist so he can evaluate her bladder dynamics. Schizophrenia 01/04/2013 02/06/2014 Overview: Dr Delaney is her psychologist . Has not seen him for a year. Patient says that the diagnosis of schizophrenia was taken off the diagnosis. Last Assessment & Plan: Patients notes indicates, that she has schizophrenia. Has been on Thorazine, haldol and invega. These drugs gave her tardive dyskinesia. She was put on tetrabenzine for it, worked miracles with her and then she got some parkinson's like features. She couldn't even feed herself. She tried the medication twice. Currently she is not on any psychotic medications. Movement disorder 12/28/2012 08/12/2016 Last Assessment & Plan: Patient is here today, sitting in front of me, very restless, constantly moving her feet, knees, things, neck, in what looks like tardive dyskinesia. It happens 2/3 times a week continues for many hours before she can get Rest from it, she said starting or increasing doses of neurontin, have not made the episodes any worse. She can talk to us without a problem and although she looks very uncomfortable to me she says he is doing fine and this will just pass. She is on requip. And recently started on Gabapentin, we are decreasing her requip. She was on haldol many years ago she says for her depression. She says she has parkinsons and told me she is taking propranolol for it. I thinks she has not got it right. She does not know of any aggravating and relieving factors for these episodes. Wheezing 11/29/2012 08/12/2016 Last Assessment & Plan: Patient is audibly wheezing right now. She recently had asthmatic bronchitis and pneumonia, said she is prone to have it. had a course of levaquin. Steroids and bronchodilators. Schizoaffective disorder 11/15/201210/2016 Overview: [facility] But [facility] it according to her. Last Assessment & Plan: [facility], But they changed it according to her. Parkinson disease 11/15/2012 12/03/2017 Overview: Radha [place], [place] I went through a lot of DR. Cevallos notes [facility]. he does not seem to think she has parkinson's. She had drug induced parkinson's like symptoms that resolved when she stopped taking the inciting medications. Last Assessment & Plan: She will send me a note from him of his latest assessment. documented as of this encounter (statuses as of 04/21/2023) [facility]2017 History of Past illness Narrative* Problem Noted Date Diagnosed Date Resolved Date Obesity, Class III, BMI >= 4 0 (morbid obesity) ([facility]) E66.01 08/26/2016 07/08/2022 Last Assessment & Plan: Assessment: Body mass index is 40.17 kg/m . Post-operative pain 07/10/2016 08/13/19 17 Hypomagnesemia 07/10/2016 07/10/2016 Full incontinence of feces 07/08/2016 0 07/10/2016 Ankle instability 04/07/2016 08/12/2016 Posterior tibial tendonitis 04/07/2016 08/12/2016 Trigger thumb of right hand 11/04/2015 08/12/2016 Cramp in muscle 04/15/2015 08/12/2016 Primary insomnia 03/19/2015 08/12/2016 Last Assessment & Plan: Struggling with insomnia Pain in left knee 12/03/2014 08/12/2016 Overview: Patient has left knee pain , that got better with PT. Last Assessment & Plan: She is going for PT and now she feels better. significantly Weakness of left leg 11/04/2014 017 Pain in joint, lower leg 02/19/2014 Tingling in extremities 10/11/201309/16 Overview: She is having tingling in her left thigh, that comes and goes. Going on for a couple months , but since the last 2 weeks she has been having it all the time. Last Assessment & Plan: She is having tingling in her left thigh, that comes and goes. Going on for a couple months , but since the last 2 weeks she has been having it all the time. Urgency of urination 03/09/2013 014 Frequency of urination 03/09/201307/11 Last Assessment & Plan: Urinary incontinence is being followed and evaluated by Dr Vazquez, she is having some urodynamic studies done. i reveiwed Dr. Fernandez notes. Obesity 03/09/2013 10/06/2016 Overview: 04/25/13 BMI 48.43. Normal BMI 18.5-25, normal weight range of 112-150 pounds in a person 5 feet 5 inches tall. Last Assessment & Plan: Gaining weight since she has not been able to exercise due to her surgeries. Nausea 02/09/2013 08/12/2016 Last Assessment & Plan: Patient has some nausea recently, is on macrobid for suspected UTI, when she came in last week. Since all her tests are negative including urine culture.i am discontinuing that SOB (shortness of breath) on exertion 02/09/2013 08/12/2016 Last Assessment & Plan: The patient has SOB which was extensively evaluated, initially it was thought to be from asthma. After seeing the family consumer science teacher and all evaluation complete it was thought to from restriction of the lungs from her weight. She also has sleep apnea, needs oxygen bled into the cpap machine, as the desaturations at night time does not normalize with out bleeding oxygen in. Today we checked her oxygen , the results are below. resting with o2 at 3liters- 91% resting room air o2 sat- 90% activity room air o2 sat- 84% activity with nc at 3liters- 91% Urinary incontinence 02/09/2013 014 Last Assessment & Plan: Patient is having the incontinence for a month. She is on vesicare but it does not help her. Prior to this she had some leakage and dribbling but it was never this bad. She has been having a lot of accidents in the last month. She is indeed a very complex patient and i would like to refer her to a Urologist so he can evaluate her bladder dynamics. Schizophrenia 01/04/2013 02/06/2014 Overview: Dr Delaney is her psychologist . Has not seen him for a year. Patient says that the diagnosis of schizophrenia was taken off the diagnosis. Last Assessment & Plan: Patients notes indicates, that she has schizophrenia. Has been on Thorazine, haldol and invega. These drugs gave her tardive dyskinesia. She was put on tetrabenzine for it, worked miracles with her and then she got some parkinson's like features. She couldn't even feed herself. She tried the medication twice. Currently she is not on any psychotic medications. Movement disorder 12/28/2012 08/12/2016 Last Assessment & Plan: Patient is here today, sitting in front of me, very restless, constantly moving her feet, knees, things, neck, in what looks like tardive dyskinesia. It happens 2/3 times a week continues for many hours before she can get Rest from it, she said starting or increasing doses of neurontin, have not made the episodes any worse. She can talk to us without a problem and although she looks very uncomfortable to me she says he is doing fine and this will just pass. She is on requip. And recently started on Gabapentin, we are decreasing her requip. She was on haldol many years ago she says for her depression. She says she has parkinsons and told me she is taking propranolol for it. I thinks she has not got it right. She does not know of any aggravating and relieving factors for these episodes. Wheezing 11/29/2012 08/12/2016 Last Assessment & Plan: Patient is audibly wheezing right now. She recently had asthmatic bronchitis and pneumonia, said she is prone to have it. had a course of levaquin. Steroids and bronchodilators. Schizoaffective disorder 11/15/201210/2016 Overview: [facility] But [facility] it according to her. Last Assessment & Plan: [facility], But they changed it according to her. Parkinson disease 11/15/2012 12/03/2017 Overview: Radha [place], [place] I went through a lot of DR. Cevallos notes [facility]. he does not seem to think she has parkinson's. She had drug induced parkinson's like symptoms that resolved when she stopped taking the inciting medications. Last Assessment & Plan: She will send me a note from him of his latest assessment. documented as of this encounter (statuses as of 04/23/2023) [facility]2017 History of Past illness Narrative* Problem Noted Date Diagnosed Date Resolved Date Obesity, Class III, BMI >= 4 0 (morbid obesity) ([facility]) E66.01 08/26/2016 07/08/2022 Last Assessment & Plan: Assessment: Body mass index is 40.17 kg/m . Post-operative pain 07/10/2016 08/13/19 17 Hypomagnesemia 07/10/2016 07/10/2016 Full incontinence of feces 07/08/2016 0 07/10/2016 Ankle instability 04/07/2016 08/12/2016 Posterior tibial tendonitis 04/07/2016 08/12/2016 Trigger thumb of right hand 11/04/2015 08/12/2016 Cramp in muscle 04/15/2015 08/12/2016 Primary insomnia 03/19/2015 08/12/2016 Last Assessment & Plan: Struggling with insomnia Pain in left knee 12/03/2014 08/12/2016 Overview: Patient has left knee pain , that got better with PT. Last Assessment & Plan: She is going for PT and now she feels better. significantly Weakness of left leg 11/04/2014 017 Pain in joint, lower leg 02/19/2014 Tingling in extremities 10/11/201309/16 Overview: She is having tingling in her left thigh, that comes and goes. Going on for a couple months , but since the last 2 weeks she has been having it all the time. Last Assessment & Plan: She is having tingling in her left thigh, that comes and goes. Going on for a couple months , but since the last 2 weeks she has been having it all the time. Urgency of urination 03/09/2013 014 Frequency of urination 03/09/201307/11 Last Assessment & Plan: Urinary incontinence is being followed and evaluated by Dr Vazquez, she is having some urodynamic studies done. i reveiwed Dr. Fernandez notes. Obesity 03/09/2013 10/06/2016 Overview: 04/25/13 BMI 48.43. Normal BMI 18.5-25, normal weight range of 112-150 pounds in a person 5 feet 5 inches tall. Last Assessment & Plan: Gaining weight since she has not been able to exercise due to her surgeries. Nausea 02/09/2013 08/12/2016 Last Assessment & Plan: Patient has some nausea recently, is on macrobid for suspected UTI, when she came in last week. Since all her tests are negative including urine culture.i am discontinuing that SOB (shortness of breath) on exertion 02/09/2013 08/12/2016 Last Assessment & Plan: The patient has SOB which was extensively evaluated, initially it was thought to be from asthma. After seeing the family consumer science teacher and all evaluation complete it was thought to from restriction of the lungs from her weight. She also has sleep apnea, needs oxygen bled into the cpap machine, as the desaturations at night time does not normalize with out bleeding oxygen in. Today we checked her oxygen , the results are below. resting with o2 at 3liters- 91% resting room air o2 sat- 90% activity room air o2 sat- 84% activity with nc at 3liters- 91% Urinary incontinence 02/09/2013 014 Last Assessment & Plan: Patient is having the incontinence for a month. She is on vesicare but it does not help her. Prior to this she had some leakage and dribbling but it was never this bad. She has been having a lot of accidents in the last month. She is indeed a very complex patient and i would like to refer her to a Urologist so he can evaluate her bladder dynamics. Schizophrenia 01/04/2013 02/06/2014 Overview: Dr Delaney is her psychologist . Has not seen him for a year. Patient says that the diagnosis of schizophrenia was taken off the diagnosis. Last Assessment & Plan: Patients notes indicates, that she has schizophrenia. Has been on Thorazine, haldol and invega. These drugs gave her tardive dyskinesia. She was put on tetrabenzine for it, worked miracles with her and then she got some parkinson's like features. She couldn't even feed herself. She tried the medication twice. Currently she is not on any psychotic medications. Movement disorder 12/28/2012 08/12/2016 Last Assessment & Plan: Patient is here today, sitting in front of me, very restless, constantly moving her feet, knees, things, neck, in what looks like tardive dyskinesia. It happens 2/3 times a week continues for many hours before she can get Rest from it, she said starting or increasing doses of neurontin, have not made the episodes any worse. She can talk to us without a problem and although she looks very uncomfortable to me she says he is doing fine and this will just pass. She is on requip. And recently started on Gabapentin, we are decreasing her requip. She was on haldol many years ago she says for her depression. She says she has parkinsons and told me she is taking propranolol for it. I thinks she has not got it right. She does not know of any aggravating and relieving factors for these episodes. Wheezing 11/29/2012 08/12/2016 Last Assessment & Plan: Patient is audibly wheezing right now. She recently had asthmatic bronchitis and pneumonia, said she is prone to have it. had a course of levaquin. Steroids and bronchodilators. Schizoaffective disorder 11/15/201210/2016 Overview: [facility] But [facility] it according to her. Last Assessment & Plan: [facility], But they changed it according to her. Parkinson disease 11/15/2012 12/03/2017 Overview: Rad[place], [place] I went through a lot of [facility]. [facility]evallos [facility]. he does not seem to think she has parkinson's. She had drug induced parkinson's like symptoms that resolved when she stopped taking the inciting medications. Last Assessment & Plan: She will send me a note from him of his latest assessment. documented as of this encounter (statuses as of 04/23/2023) [facility]2017 History of Past illness Narrative* Problem Noted Date Diagnosed Date Resolved Date Obesity, Class III, BMI >= 4 0 (morbid obesity) ([facility]) E66.01 08/26/2016 07/08/2022 Last Assessment & Plan: Assessment: Body mass index is 40.17 kg/m . Post-operative pain 07/10/2016 08/13/19 17 Hypomagnesemia 07/10/2016 07/10/2016 Full incontinence of feces 07/08/2016 0 07/10/2016 Ankle instability 04/07/2016 08/12/2016 Posterior tibial tendonitis 04/07/2016 08/12/2016 Trigger thumb of right hand 11/04/2015 08/12/2016 Cramp in muscle 04/15/2015 08/12/2016 Primary insomnia 03/19/2015 08/12/2016 Last Assessment & Plan: Struggling with insomnia Pain in left knee 12/03/2014 08/12/2016 Overview: Patient has left knee pain , that got better with PT. Last Assessment & Plan: She is going for PT and now she feels better. significantly Weakness of left leg 11/04/2014 017 Pain in joint, lower leg 02/19/2014 Tingling in extremities 10/11/201309/16 Overview: She is having tingling in her left thigh, that comes and goes. Going on for a couple months , but since the last 2 weeks she has been having it all the time. Last Assessment & Plan: She is having tingling in her left thigh, that comes and goes. Going on for a couple months , but since the last 2 weeks she has been having it all the time. Urgency of urination 03/09/2013 014 Frequency of urination 03/09/201307/11 Last Assessment & Plan: Urinary incontinence is being followed and evaluated by Dr Vazquez, she is having some urodynamic studies done. i reveiwed Dr. Fernandez notes. Obesity 03/09/2013 10/06/2016 Overview: 04/25/13 BMI 48.43. Normal BMI 18.5-25, normal weight range of 112-150 pounds in a person 5 feet 5 inches tall. Last Assessment & Plan: Gaining weight since she has not been able to exercise due to her surgeries. Nausea 02/09/2013 08/12/2016 Last Assessment & Plan: Patient has some nausea recently, is on macrobid for suspected UTI, when she came in last week. Since all her tests are negative including urine culture.i am discontinuing that SOB (shortness of breath) on exertion 02/09/2013 08/12/2016 Last Assessment & Plan: The patient has SOB which was extensively evaluated, initially it was thought to be from asthma. After seeing the family consumer science teacher and all evaluation complete it was thought to from restriction of the lungs from her weight. She also has sleep apnea, needs oxygen bled into the cpap machine, as the desaturations at night time does not normalize with out bleeding oxygen in. Today we checked her oxygen , the results are below. resting with o2 at 3liters- 91% resting room air o2 sat- 90% activity room air o2 sat- 84% activity with nc at 3liters- 91% Urinary incontinence 02/09/2013 014 Last Assessment & Plan: Patient is having the incontinence for a month. She is on vesicare but it does not help her. Prior to this she had some leakage and dribbling but it was never this bad. She has been having a lot of accidents in the last month. She is indeed a very complex patient and i would like to refer her to a Urologist so he can evaluate her bladder dynamics. Schizophrenia 01/04/2013 02/06/2014 Overview: Dr Delaney is her psychologist . Has not seen him for a year. Patient says that the diagnosis of schizophrenia was taken off the diagnosis. Last Assessment & Plan: Patients notes indicates, that she has schizophrenia. Has been on Thorazine, haldol and invega. These drugs gave her tardive dyskinesia. She was put on tetrabenzine for it, worked miracles with her and then she got some parkinson's like features. She couldn't even feed herself. She tried the medication twice. Currently she is not on any psychotic medications. Movement disorder 12/28/2012 08/12/2016 Last Assessment & Plan: Patient is here today, sitting in front of me, very restless, constantly moving her feet, knees, things, neck, in what looks like tardive dyskinesia. It happens 2/3 times a week continues for many hours before she can get Rest from it, she said starting or increasing doses of neurontin, have not made the episodes any worse. She can talk to us without a problem and although she looks very uncomfortable to me she says he is doing fine and this will just pass. She is on requip. And recently started on Gabapentin, we are decreasing her requip. She was on haldol many years ago she says for her depression. She says she has parkinsons and told me she is taking propranolol for it. I thinks she has not got it right. She does not know of any aggravating and relieving factors for these episodes. Wheezing 11/29/2012 08/12/2016 Last Assessment & Plan: Patient is audibly wheezing right now. She recently had asthmatic bronchitis and pneumonia, said she is prone to have it. had a course of levaquin. Steroids and bronchodilators. Schizoaffective disorder 11/15/201210/2016 Overview: [facility] But [facility] it according to her. Last Assessment & Plan: [facility], But they changed it according to her. Parkinson disease 11/15/2012 12/03/2017 Overview: [place], [place] I went through a lot of [facility]allos [facility]. he does not seem to think she has parkinson's. She had drug induced parkinson's like symptoms that resolved when she stopped taking the inciting medications. Last Assessment & Plan: She will send me a note from him of his latest assessment. documented as of this encounter (statuses as of 04/23/2023) [facility] History of Past illness Narrative* Problem Noted Date Diagnosed Date Resolved Date Obesity, Class III, BMI >= 4 0 (morbid obesity) ([facility]) E66.01 08/26/2016 07/08/2022 Last Assessment & Plan: Assessment: Body mass index is 40.17 kg/m . Post-operative pain 07/10/2016 08/13/19 17 Hypomagnesemia 07/10/2016 07/10/2016 Full incontinence of feces 07/08/2016 0 07/10/2016 Ankle instability 04/07/2016 08/12/2016 Posterior tibial tendonitis 04/07/2016 08/12/2016 Trigger thumb of right hand 11/04/2015 08/12/2016 Cramp in muscle 04/15/2015 08/12/2016 Primary insomnia 03/19/2015 08/12/2016 Last Assessment & Plan: Struggling with insomnia Pain in left knee 12/03/2014 08/12/2016 Overview: Patient has left knee pain , that got better with PT. Last Assessment & Plan: She is going for PT and now she feels better. significantly Weakness of left leg 11/04/2014 017 Pain in joint, lower leg 02/19/2014 Tingling in extremities 10/11/201309/16 Overview: She is having tingling in her left thigh, that comes and goes. Going on for a couple months , but since the last 2 weeks she has been having it all the time. Last Assessment & Plan: She is having tingling in her left thigh, that comes and goes. Going on for a couple months , but since the last 2 weeks she has been having it all the time. Urgency of urination 03/09/2013 014 Frequency of urination 03/09/201307/11 Last Assessment & Plan: Urinary incontinence is being followed and evaluated by Dr Vazquez, she is having some urodynamic studies done. i reveiwed Dr. Fernandez notes. Obesity 03/09/2013 10/06/2016 Overview: 04/25/13 BMI 48.43. Normal BMI 18.5-25, normal weight range of 112-150 pounds in a person 5 feet 5 inches tall. Last Assessment & Plan: Gaining weight since she has not been able to exercise due to her surgeries. Nausea 02/09/2013 08/12/2016 Last Assessment & Plan: Patient has some nausea recently, is on macrobid for suspected UTI, when she came in last week. Since all her tests are negative including urine culture.i am discontinuing that SOB (shortness of breath) on exertion 02/09/2013 08/12/2016 Last Assessment & Plan: The patient has SOB which was extensively evaluated, initially it was thought to be from asthma. After seeing the family consumer science teacher and all evaluation complete it was thought to from restriction of the lungs from her weight. She also has sleep apnea, needs oxygen bled into the cpap machine, as the desaturations at night time does not normalize with out bleeding oxygen in. Today we checked her oxygen , the results are below. resting with o2 at 3liters- 91% resting room air o2 sat- 90% activity room air o2 sat- 84% activity with nc at 3liters- 91% Urinary incontinence 02/09/2013 014 Last Assessment & Plan: Patient is having the incontinence for a month. She is on vesicare but it does not help her. Prior to this she had some leakage and dribbling but it was never this bad. She has been having a lot of accidents in the last month. She is indeed a very complex patient and i would like to refer her to a Urologist so he can evaluate her bladder dynamics. Schizophrenia 01/04/2013 02/06/2014 Overview: Dr Delaney is her psychologist . Has not seen him for a year. Patient says that the diagnosis of schizophrenia was taken off the diagnosis. Last Assessment & Plan: Patients notes indicates, that she has schizophrenia. Has been on Thorazine, haldol and invega. These drugs gave her tardive dyskinesia. She was put on tetrabenzine for it, worked miracles with her and then she got some parkinson's like features. She couldn't even feed herself. She tried the medication twice. Currently she is not on any psychotic medications. Movement disorder 12/28/2012 08/12/2016 Last Assessment & Plan: Patient is here today, sitting in front of me, very restless, constantly moving her feet, knees, things, neck, in what looks like tardive dyskinesia. It happens 2/3 times a week continues for many hours before she can get Rest from it, she said starting or increasing doses of neurontin, have not made the episodes any worse. She can talk to us without a problem and although she looks very uncomfortable to me she says he is doing fine and this will just pass. She is on requip. And recently started on Gabapentin, we are decreasing her requip. She was on haldol many years ago she says for her depression. She says she has parkinsons and told me she is taking propranolol for it. I thinks she has not got it right. She does not know of any aggravating and relieving factors for these episodes. Wheezing 11/29/2012 08/12/2016 Last Assessment & Plan: Patient is audibly wheezing right now. She recently had asthmatic bronchitis and pneumonia, said she is prone to have it. had a course of levaquin. Steroids and bronchodilators. Schizoaffective disorder 11/15/201210/2016 Overview: [facility] But [facility] it according to her. Last Assessment & Plan: [facility], But they changed it according to her. Parkinson disease 11/15/2012 12/03/2017 Overview: Rad[place], [place] I went through a lot of DR. Cevallos [facility]. he does not seem to think she has parkinson's. She had drug induced parkinson's like symptoms that resolved when she stopped taking the inciting medications. Last Assessment & Plan: She will send me a note from him of his latest assessment. documented as of this encounter (statuses as of 04/24/2023) [facility]07-12-2017 History of Past illness Narrative* Problem Noted Date Diagnosed Date Resolved Date Obesity, Class III, BMI >= 4 0 (morbid obesity) ([facility]) E66.01 08/26/2016 07/08/2022 Last Assessment & Plan: Assessment: Body mass index is 40.17 kg/m . Post-operative pain 07/10/2016 08/13/19 17 Hypomagnesemia 07/10/2016 07/10/2016 Full incontinence of feces 07/08/2016 0 07/10/2016 Ankle instability 04/07/2016 08/12/2016 Posterior tibial tendonitis 04/07/2016 08/12/2016 Trigger thumb of right hand 11/04/2015 08/12/2016 Cramp in muscle 04/15/2015 08/12/2016 Primary insomnia 03/19/2015 08/12/2016 Last Assessment & Plan: Struggling with insomnia Pain in left knee 12/03/2014 08/12/2016 Overview: Patient has left knee pain , that got better with PT. Last Assessment & Plan: She is going for PT and now she feels better. significantly Weakness of left leg 11/04/2014 017 Pain in joint, lower leg 02/19/2014 Tingling in extremities 10/11/201309/16 Overview: She is having tingling in her left thigh, that comes and goes. Going on for a couple months , but since the last 2 weeks she has been having it all the time. Last Assessment & Plan: She is having tingling in her left thigh, that comes and goes. Going on for a couple months , but since the last 2 weeks she has been having it all the time. Urgency of urination 03/09/2013 014 Frequency of urination 03/09/201307/11 Last Assessment & Plan: Urinary incontinence is being followed and evaluated by Dr Vazquez, she is having some urodynamic studies done. i reveiwed Dr. Fernandez notes. Obesity 03/09/2013 10/06/2016 Overview: 04/25/13 BMI 48.43. Normal BMI 18.5-25, normal weight range of 112-150 pounds in a person 5 feet 5 inches tall. Last Assessment & Plan: Gaining weight since she has not been able to exercise due to her surgeries. Nausea 02/09/2013 08/12/2016 Last Assessment & Plan: Patient has some nausea recently, is on macrobid for suspected UTI, when she came in last week. Since all her tests are negative including urine culture.i am discontinuing that SOB (shortness of breath) on exertion 02/09/2013 08/12/2016 Last Assessment & Plan: The patient has SOB which was extensively evaluated, initially it was thought to be from asthma. After seeing the family consumer science teacher and all evaluation complete it was thought to from restriction of the lungs from her weight. She also has sleep apnea, needs oxygen bled into the cpap machine, as the desaturations at night time does not normalize with out bleeding oxygen in. Today we checked her oxygen , the results are below. resting with o2 at 3liters- 91% resting room air o2 sat- 90% activity room air o2 sat- 84% activity with nc at 3liters- 91% Urinary incontinence 02/09/2013 014 Last Assessment & Plan: Patient is having the incontinence for a month. She is on vesicare but it does not help her. Prior to this she had some leakage and dribbling but it was never this bad. She has been having a lot of accidents in the last month. She is indeed a very complex patient and i would like to refer her to a Urologist so he can evaluate her bladder dynamics. Schizophrenia 01/04/2013 02/06/2014 Overview: Dr Delaney is her psychologist . Has not seen him for a year. Patient says that the diagnosis of schizophrenia was taken off the diagnosis. Last Assessment & Plan: Patients notes indicates, that she has schizophrenia. Has been on Thorazine, haldol and invega. These drugs gave her tardive dyskinesia. She was put on tetrabenzine for it, worked miracles with her and then she got some parkinson's like features. She couldn't even feed herself. She tried the medication twice. Currently she is not on any psychotic medications. Movement disorder 12/28/2012 08/12/2016 Last Assessment & Plan: Patient is here today, sitting in front of me, very restless, constantly moving her feet, knees, things, neck, in what looks like tardive dyskinesia. It happens 2/3 times a week continues for many hours before she can get Rest from it, she said starting or increasing doses of neurontin, have not made the episodes any worse. She can talk to us without a problem and although she looks very uncomfortable to me she says he is doing fine and this will just pass. She is on requip. And recently started on Gabapentin, we are decreasing her requip. She was on haldol many years ago she says for her depression. She says she has parkinsons and told me she is taking propranolol for it. I thinks she has not got it right. She does not know of any aggravating and relieving factors for these episodes. Wheezing 11/29/2012 08/12/2016 Last Assessment & Plan: Patient is audibly wheezing right now. She recently had asthmatic bronchitis and pneumonia, said she is prone to have it. had a course of levaquin. Steroids and bronchodilators. Schizoaffective disorder 11/15/201210/2016 Overview: [facility], But [facility] it according to her. Last Assessment & Plan: [facility], But they changed it according to her. Parkinson disease 11/15/2012 12/03/2017 Overview: Radha [place], [place] I went through a lot of DR. Cevallos notes from [facility]. he does not seem to think she has parkinson's. She had drug induced parkinson's like symptoms that resolved when she stopped taking the inciting medications. Last Assessment & Plan: She will send me a note from him of his latest assessment. documented as of this encounter (statuses as of 04/27/2023) [facility]2017 History of Past illness Narrative* Problem Noted Date Diagnosed Date Resolved Date Obesity, Class III, BMI >= 4 0 (morbid obesity) ([facility]) E66.01 08/26/2016 07/08/2022 Last Assessment & Plan: Assessment: Body mass index is 40.17 kg/m . Post-operative pain 07/10/2016 08/13/19 17 Hypomagnesemia 07/10/2016 07/10/2016 Full incontinence of feces 07/08/2016 0 07/10/2016 Ankle instability 04/07/2016 08/12/2016 Posterior tibial tendonitis 04/07/2016 08/12/2016 Trigger thumb of right hand 11/04/2015 08/12/2016 Cramp in muscle 04/15/2015 08/12/2016 Primary insomnia 03/19/2015 08/12/2016 Last Assessment & Plan: Struggling with insomnia Pain in left knee 12/03/2014 08/12/2016 Overview: Patient has left knee pain , that got better with PT. Last Assessment & Plan: She is going for PT and now she feels better. significantly Weakness of left leg 11/04/2014 017 Pain in joint, lower leg 02/19/2014 Tingling in extremities 10/11/201309/16 Overview: She is having tingling in her left thigh, that comes and goes. Going on for a couple months , but since the last 2 weeks she has been having it all the time. Last Assessment & Plan: She is having tingling in her left thigh, that comes and goes. Going on for a couple months , but since the last 2 weeks she has been having it all the time. Urgency of urination 03/09/2013 014 Frequency of urination 03/09/201307/11 Last Assessment & Plan: Urinary incontinence is being followed and evaluated by Dr Vazquez, she is having some urodynamic studies done. i reveiwed Dr. Fernandez notes. Obesity 03/09/2013 10/06/2016 Overview: 04/25/13 BMI 48.43. Normal BMI 18.5-25, normal weight range of 112-150 pounds in a person 5 feet 5 inches tall. Last Assessment & Plan: Gaining weight since she has not been able to exercise due to her surgeries. Nausea 02/09/2013 08/12/2016 Last Assessment & Plan: Patient has some nausea recently, is on macrobid for suspected UTI, when she came in last week. Since all her tests are negative including urine culture.i am discontinuing that SOB (shortness of breath) on exertion 02/09/2013 08/12/2016 Last Assessment & Plan: The patient has SOB which was extensively evaluated, initially it was thought to be from asthma. After seeing the family consumer science teacher and all evaluation complete it was thought to from restriction of the lungs from her weight. She also has sleep apnea, needs oxygen bled into the cpap machine, as the desaturations at night time does not normalize with out bleeding oxygen in. Today we checked her oxygen , the results are below. resting with o2 at 3liters- 91% resting room air o2 sat- 90% activity room air o2 sat- 84% activity with nc at 3liters- 91% Urinary incontinence 02/09/2013 014 Last Assessment & Plan: Patient is having the incontinence for a month. She is on vesicare but it does not help her. Prior to this she had some leakage and dribbling but it was never this bad. She has been having a lot of accidents in the last month. She is indeed a very complex patient and i would like to refer her to a Urologist so he can evaluate her bladder dynamics. Schizophrenia 01/04/2013 02/06/2014 Overview: Dr Delaney is her psychologist . Has not seen him for a year. Patient says that the diagnosis of schizophrenia was taken off the diagnosis. Last Assessment & Plan: Patients notes indicates, that she has schizophrenia. Has been on Thorazine, haldol and invega. These drugs gave her tardive dyskinesia. She was put on tetrabenzine for it, worked miracles with her and then she got some parkinson's like features. She couldn't even feed herself. She tried the medication twice. Currently she is not on any psychotic medications. Movement disorder 12/28/2012 08/12/2016 Last Assessment & Plan: Patient is here today, sitting in front of me, very restless, constantly moving her feet, knees, things, neck, in what looks like tardive dyskinesia. It happens 2/3 times a week continues for many hours before she can get Rest from it, she said starting or increasing doses of neurontin, have not made the episodes any worse. She can talk to us without a problem and although she looks very uncomfortable to me she says he is doing fine and this will just pass. She is on requip. And recently started on Gabapentin, we are decreasing her requip. She was on haldol many years ago she says for her depression. She says she has parkinsons and told me she is taking propranolol for it. I thinks she has not got it right. She does not know of any aggravating and relieving factors for these episodes. Wheezing 11/29/2012 08/12/2016 Last Assessment & Plan: Patient is audibly wheezing right now. She recently had asthmatic bronchitis and pneumonia, said she is prone to have it. had a course of levaquin. Steroids and bronchodilators. Schizoaffective disorder 11/15/201210/2016 Overview: [facility] But [facility] it according to her. Last Assessment & Plan: [facility], But they changed it according to her. Parkinson disease 11/15/2012 12/03/2017 Overview: [place], [place] I went through a lot of DR. Cevallos [facility]. he does not seem to think she has parkinson's. She had drug induced parkinson's like symptoms that resolved when she stopped taking the inciting medications. Last Assessment & Plan: She will send me a note from him of his latest assessment. documented as of this encounter (statuses as of 05/06/2023) [facility]2017 History of Past illness Narrative* Problem Noted Date Diagnosed Date Resolved Date Obesity, Class III, BMI >= 4 0 (morbid obesity) ([facility]) E66.01 08/26/2016 07/08/2022 Last Assessment & Plan: Assessment: Body mass index is 40.17 kg/m . Post-operative pain 07/10/2016 08/13/19 17 Hypomagnesemia 07/10/2016 07/10/2016 Full incontinence of feces 07/08/2016 0 07/10/2016 Ankle instability 04/07/2016 08/12/2016 Posterior tibial tendonitis 04/07/2016 08/12/2016 Trigger thumb of right hand 11/04/2015 08/12/2016 Cramp in muscle 04/15/2015 08/12/2016 Primary insomnia 03/19/2015 08/12/2016 Last Assessment & Plan: Struggling with insomnia Pain in left knee 12/03/2014 08/12/2016 Overview: Patient has left knee pain , that got better with PT. Last Assessment & Plan: She is going for PT and now she feels better. significantly Weakness of left leg 11/04/2014 017 Pain in joint, lower leg 02/19/2014 Tingling in extremities 10/11/201309/16 Overview: She is having tingling in her left thigh, that comes and goes. Going on for a couple months , but since the last 2 weeks she has been having it all the time. Last Assessment & Plan: She is having tingling in her left thigh, that comes and goes. Going on for a couple months , but since the last 2 weeks she has been having it all the time. Urgency of urination 03/09/2013 014 Frequency of urination 03/09/201307/11 Last Assessment & Plan: Urinary incontinence is being followed and evaluated by Dr Vazquez, she is having some urodynamic studies done. i reveiwed Dr. Fernandez notes. Obesity 03/09/2013 10/06/2016 Overview: 04/25/13 BMI 48.43. Normal BMI 18.5-25, normal weight range of 112-150 pounds in a person 5 feet 5 inches tall. Last Assessment & Plan: Gaining weight since she has not been able to exercise due to her surgeries. Nausea 02/09/2013 08/12/2016 Last Assessment & Plan: Patient has some nausea recently, is on macrobid for suspected UTI, when she came in last week. Since all her tests are negative including urine culture.i am discontinuing that SOB (shortness of breath) on exertion 02/09/2013 08/12/2016 Last Assessment & Plan: The patient has SOB which was extensively evaluated, initially it was thought to be from asthma. After seeing the family consumer science teacher and all evaluation complete it was thought to from restriction of the lungs from her weight. She also has sleep apnea, needs oxygen bled into the cpap machine, as the desaturations at night time does not normalize with out bleeding oxygen in. Today we checked her oxygen , the results are below. resting with o2 at 3liters- 91% resting room air o2 sat- 90% activity room air o2 sat- 84% activity with nc at 3liters- 91% Urinary incontinence 02/09/2013 014 Last Assessment & Plan: Patient is having the incontinence for a month. She is on vesicare but it does not help her. Prior to this she had some leakage and dribbling but it was never this bad. She has been having a lot of accidents in the last month. She is indeed a very complex patient and i would like to refer her to a Urologist so he can evaluate her bladder dynamics. Schizophrenia 01/04/2013 02/06/2014 Overview: Dr Delaney is her psychologist . Has not seen him for a year. Patient says that the diagnosis of schizophrenia was taken off the diagnosis. Last Assessment & Plan: Patients notes indicates, that she has schizophrenia. Has been on Thorazine, haldol and invega. These drugs gave her tardive dyskinesia. She was put on tetrabenzine for it, worked miracles with her and then she got some parkinson's like features. She couldn't even feed herself. She tried the medication twice. Currently she is not on any psychotic medications. Movement disorder 12/28/2012 08/12/2016 Last Assessment & Plan: Patient is here today, sitting in front of me, very restless, constantly moving her feet, knees, things, neck, in what looks like tardive dyskinesia. It happens 2/3 times a week continues for many hours before she can get Rest from it, she said starting or increasing doses of neurontin, have not made the episodes any worse. She can talk to us without a problem and although she looks very uncomfortable to me she says he is doing fine and this will just pass. She is on requip. And recently started on Gabapentin, we are decreasing her requip. She was on haldol many years ago she says for her depression. She says she has parkinsons and told me she is taking propranolol for it. I thinks she has not got it right. She does not know of any aggravating and relieving factors for these episodes. Wheezing 11/29/2012 08/12/2016 Last Assessment & Plan: Patient is audibly wheezing right now. She recently had asthmatic bronchitis and pneumonia, said she is prone to have it. had a course of levaquin. Steroids and bronchodilators. Schizoaffective disorder 11/15/201210/2016 Overview: [facility] But [facility] it according to her. Last Assessment & Plan: [facility], But they changed it according to her. Parkinson disease 11/15/2012 12/03/2017 Overview: [place], [place] I went through a lot of [facility]allos [facility]. he does not seem to think she has parkinson's. She had drug induced parkinson's like symptoms that resolved when she stopped taking the inciting medications. Last Assessment & Plan: She will send me a note from him of his latest assessment. documented as of this encounter (statuses as of 05/10/2023) [facility]2017 History of Past illness Narrative* Problem Noted Date Diagnosed Date Resolved Date Obesity, Class III, BMI >= 4 0 (morbid obesity) ([facility]) E66.01 08/26/2016 07/08/2022 Last Assessment & Plan: Assessment: Body mass index is 40.17 kg/m . Post-operative pain 07/10/2016 08/13/19 17 Hypomagnesemia 07/10/2016 07/10/2016 Full incontinence of feces 07/08/2016 0 07/10/2016 Ankle instability 04/07/2016 08/12/2016 Posterior tibial tendonitis 04/07/2016 08/12/2016 Trigger thumb of right hand 11/04/2015 08/12/2016 Cramp in muscle 04/15/2015 08/12/2016 Primary insomnia 03/19/2015 08/12/2016 Last Assessment & Plan: Struggling with insomnia Pain in left knee 12/03/2014 08/12/2016 Overview: Patient has left knee pain , that got better with PT. Last Assessment & Plan: She is going for PT and now she feels better. significantly Weakness of left leg 11/04/2014 017 Pain in joint, lower leg 02/19/2014 Tingling in extremities 10/11/201309/16 Overview: She is having tingling in her left thigh, that comes and goes. Going on for a couple months , but since the last 2 weeks she has been having it all the time. Last Assessment & Plan: She is having tingling in her left thigh, that comes and goes. Going on for a couple months , but since the last 2 weeks she has been having it all the time. Urgency of urination 03/09/2013 014 Frequency of urination 03/09/201307/11 Last Assessment & Plan: Urinary incontinence is being followed and evaluated by Dr Vazquez, she is having some urodynamic studies done. i reveiwed Dr. Fernandez notes. Obesity 03/09/2013 10/06/2016 Overview: 04/25/13 BMI 48.43. Normal BMI 18.5-25, normal weight range of 112-150 pounds in a person 5 feet 5 inches tall. Last Assessment & Plan: Gaining weight since she has not been able to exercise due to her surgeries. Nausea 02/09/2013 08/12/2016 Last Assessment & Plan: Patient has some nausea recently, is on macrobid for suspected UTI, when she came in last week. Since all her tests are negative including urine culture.i am discontinuing that SOB (shortness of breath) on exertion 02/09/2013 08/12/2016 Last Assessment & Plan: The patient has SOB which was extensively evaluated, initially it was thought to be from asthma. After seeing the family consumer science teacher and all evaluation complete it was thought to from restriction of the lungs from her weight. She also has sleep apnea, needs oxygen bled into the cpap machine, as the desaturations at night time does not normalize with out bleeding oxygen in. Today we checked her oxygen , the results are below. resting with o2 at 3liters- 91% resting room air o2 sat- 90% activity room air o2 sat- 84% activity with nc at 3liters- 91% Urinary incontinence 02/09/2013 014 Last Assessment & Plan: Patient is having the incontinence for a month. She is on vesicare but it does not help her. Prior to this she had some leakage and dribbling but it was never this bad. She has been having a lot of accidents in the last month. She is indeed a very complex patient and i would like to refer her to a Urologist so he can evaluate her bladder dynamics. Schizophrenia 01/04/2013 02/06/2014 Overview: Dr Delaney is her psychologist . Has not seen him for a year. Patient says that the diagnosis of schizophrenia was taken off the diagnosis. Last Assessment & Plan: Patients notes indicates, that she has schizophrenia. Has been on Thorazine, haldol and invega. These drugs gave her tardive dyskinesia. She was put on tetrabenzine for it, worked miracles with her and then she got some parkinson's like features. She couldn't even feed herself. She tried the medication twice. Currently she is not on any psychotic medications. Movement disorder 12/28/2012 08/12/2016 Last Assessment & Plan: Patient is here today, sitting in front of me, very restless, constantly moving her feet, knees, things, neck, in what looks like tardive dyskinesia. It happens 2/3 times a week continues for many hours before she can get Rest from it, she said starting or increasing doses of neurontin, have not made the episodes any worse. She can talk to us without a problem and although she looks very uncomfortable to me she says he is doing fine and this will just pass. She is on requip. And recently started on Gabapentin, we are decreasing her requip. She was on haldol many years ago she says for her depression. She says she has parkinsons and told me she is taking propranolol for it. I thinks she has not got it right. She does not know of any aggravating and relieving factors for these episodes. Wheezing 11/29/2012 08/12/2016 Last Assessment & Plan: Patient is audibly wheezing right now. She recently had asthmatic bronchitis and pneumonia, said she is prone to have it. had a course of levaquin. Steroids and bronchodilators. Schizoaffective disorder 11/15/201210/2016 Overview: [facility] But [facility] it according to her. Last Assessment & Plan: [facility], But they changed it according to her. Parkinson disease 11/15/2012 12/03/2017 Overview: [place], [place] I went through a lot of DR. Cevallos [facility]. he does not seem to think she has parkinson's. She had drug induced parkinson's like symptoms that resolved when she stopped taking the inciting medications. Last Assessment & Plan: She will send me a note from him of his latest assessment. documented as of this encounter (statuses as of 05/28/2023) [facility]05[facility]2017 History of Past illness Narrative* Problem Noted Date Resolved Date Post-operative pain 07/10/2016 08/12/2016 Hypomagnesemia 07/10/2016 07/10/2016 Full incontinence of feces 07/08/201607/10 Ankle instability 04/07/2016 08/12/2016 Posterior tibial tendonitis 04/07/201607/17 Trigger thumb of right hand 11/04/201507/17 Cramp in muscle 04/15/2015 08/12/2016 Primary insomnia 03/19/2015 08/12/2016 Last Assessment & Plan: Struggling with insomnia Pain in left knee 12/03/2014 08/12/2016 Overview: Patient has left knee pain , that got better with PT. Last Assessment & Plan: She is going for PT and now she feels better. significantly Weakness of left leg 11/04/2014 08/12/2016 Pain in joint, lower leg 02/19/2014 017 Tingling in extremities 10/11/2013 10/07/19 17 Overview: She is having tingling in her left thigh, that comes and goes. Going on for a couple months , but since the last 2 weeks she has been having it all the time. Last Assessment & Plan: She is having tingling in her left thigh, that comes and goes. Going on for a couple months , but since the last 2 weeks she has been having it all the time. Urgency of urination 03/09/2013 07/11/2013 Frequency of urination 03/09/2013 4 Last Assessment & Plan: Urinary incontinence is being followed and evaluated by Dr Vazquez, she is having some urodynamic studies done. i reveiwed Dr. Fernandez notes. Obesity 03/09/2013 10/06/2016 Overview: 04/25/13 BMI 48.43. Normal BMI 18.5-25, normal weight range of 112-150 pounds in a person 5 feet 5 inches tall. Last Assessment & Plan: Gaining weight since she has not been able to exercise due to her surgeries. Nausea 02/09/2013 08/12/2016 Last Assessment & Plan: Patient has some nausea recently, is on macrobid for suspected UTI, when she came in last week. Since all her tests are negative including urine culture.i am discontinuing that SOB (shortness of breath) on exertion 02/09/2013 08/12/2016 Last Assessment & Plan: The patient has SOB which was extensively evaluated, initially it was thought to be from asthma. After seeing the family consumer science teacher and all evaluation complete it was thought to from restriction of the lungs from her weight. She also has sleep apnea, needs oxygen bled into the cpap machine, as the desaturations at night time does not normalize with out bleeding oxygen in. Today we checked her oxygen , the results are below. resting with o2 at 3liters- 91% resting room air o2 sat- 90% activity room air o2 sat- 84% activity with nc at 3liters- 91% Urinary incontinence 02/09/2013 03/28/2013 Last Assessment & Plan: Patient is having the incontinence for a month. She is on vesicare but it does not help her. Prior to this she had some leakage and dribbling but it was never this bad. She has been having a lot of accidents in the last month. She is indeed a very complex patient and i would like to refer her to a Urologist so he can evaluate her bladder dynamics. Schizophrenia 01/04/2013 02/06/2014 Overview: Dr Delaney is her psychologist . Has not seen him for a year. Patient says that the diagnosis of schizophrenia was taken off the diagnosis. Last Assessment & Plan: Patients notes indicates, that she has schizophrenia. Has been on Thorazine, haldol and invega. These drugs gave her tardive dyskinesia. She was put on tetrabenzine for it, worked miracles with her and then she got some parkinson's like features. She couldn't even feed herself. She tried the medication twice. Currently she is not on any psychotic medications. Movement disorder 12/28/2012 08/12/2016 Last Assessment & Plan: Patient is here today, sitting in front of me, very restless, constantly moving her feet, knees, things, neck, in what looks like tardive dyskinesia. It happens 2/3 times a week continues for many hours before she can get Rest from it, she said starting or increasing doses of neurontin, have not made the episodes any worse. She can talk to us without a problem and although she looks very uncomfortable to me she says he is doing fine and this will just pass. She is on requip. And recently started on Gabapentin, we are decreasing her requip. She was on haldol many years ago she says for her depression. She says she has parkinsons and told me she is taking propranolol for it. I thinks she has not got it right. She does not know of any aggravating and relieving factors for these episodes. Wheezing 11/29/2012 08/12/2016 Last Assessment & Plan: Patient is audibly wheezing right now. She recently had asthmatic bronchitis and pneumonia, said she is prone to have it. had a course of levaquin. Steroids and bronchodilators. Schizoaffective disorder 11/15/2012 017 Overview: [facility] But [facility] it according to her. Last Assessment & Plan: [facility], But they changed it according to her. Parkinson disease 11/15/2012 12/03/2017 Overview: Radha [place], [place] I went through a lot of DR. Cevallos notes from [facility]. he does not seem to think she has parkinson's. She had drug induced parkinson's like symptoms that resolved when she stopped taking the inciting medications. Last Assessment & Plan: She will send me a note from him of his latest assessment. documented as of this encounter (statuses as of 05/08/2021) [facility] History of Past illness Narrative* Problem Noted Date Resolved Date Post-operative pain 07/10/2016 08/12/2016 Hypomagnesemia 07/10/2016 07/10/2016 Full incontinence of feces 07/08/201607/10 Ankle instability 04/07/2016 08/12/2016 Posterior tibial tendonitis 04/07/201607/17 Trigger thumb of right hand 11/04/201507/17 Cramp in muscle 04/15/2015 08/12/2016 Primary insomnia 03/19/2015 08/12/2016 Last Assessment & Plan: Struggling with insomnia Pain in left knee 12/03/2014 08/12/2016 Overview: Patient has left knee pain , that got better with PT. Last Assessment & Plan: She is going for PT and now she feels better. significantly Weakness of left leg 11/04/2014 08/12/2016 Pain in joint, lower leg 02/19/2014 017 Tingling in extremities 10/11/2013 10/07/19 17 Overview: She is having tingling in her left thigh, that comes and goes. Going on for a couple months , but since the last 2 weeks she has been having it all the time. Last Assessment & Plan: She is having tingling in her left thigh, that comes and goes. Going on for a couple months , but since the last 2 weeks she has been having it all the time. Urgency of urination 03/09/2013 07/11/2013 Frequency of urination 03/09/2013 4 Last Assessment & Plan: Urinary incontinence is being followed and evaluated by Dr Vazquez, she is having some urodynamic studies done. i reveiwed Dr. Fernandez notes. Obesity 03/09/2013 10/06/2016 Overview: 04/25/13 BMI 48.43. Normal BMI 18.5-25, normal weight range of 112-150 pounds in a person 5 feet 5 inches tall. Last Assessment & Plan: Gaining weight since she has not been able to exercise due to her surgeries. Nausea 02/09/2013 08/12/2016 Last Assessment & Plan: Patient has some nausea recently, is on macrobid for suspected UTI, when she came in last week. Since all her tests are negative including urine culture.i am discontinuing that SOB (shortness of breath) on exertion 02/09/2013 08/12/2016 Last Assessment & Plan: The patient has SOB which was extensively evaluated, initially it was thought to be from asthma. After seeing the family consumer science teacher and all evaluation complete it was thought to from restriction of the lungs from her weight. She also has sleep apnea, needs oxygen bled into the cpap machine, as the desaturations at night time does not normalize with out bleeding oxygen in. Today we checked her oxygen , the results are below. resting with o2 at 3liters- 91% resting room air o2 sat- 90% activity room air o2 sat- 84% activity with nc at 3liters- 91% Urinary incontinence 02/09/2013 03/28/2013 Last Assessment & Plan: Patient is having the incontinence for a month. She is on vesicare but it does not help her. Prior to this she had some leakage and dribbling but it was never this bad. She has been having a lot of accidents in the last month. She is indeed a very complex patient and i would like to refer her to a Urologist so he can evaluate her bladder dynamics. Schizophrenia 01/04/2013 02/06/2014 Overview: Dr Delaney is her psychologist . Has not seen him for a year. Patient says that the diagnosis of schizophrenia was taken off the diagnosis. Last Assessment & Plan: Patients notes indicates, that she has schizophrenia. Has been on Thorazine, haldol and invega. These drugs gave her tardive dyskinesia. She was put on tetrabenzine for it, worked miracles with her and then she got some parkinson's like features. She couldn't even feed herself. She tried the medication twice. Currently she is not on any psychotic medications. Movement disorder 12/28/2012 08/12/2016 Last Assessment & Plan: Patient is here today, sitting in front of me, very restless, constantly moving her feet, knees, things, neck, in what looks like tardive dyskinesia. It happens 2/3 times a week continues for many hours before she can get Rest from it, she said starting or increasing doses of neurontin, have not made the episodes any worse. She can talk to us without a problem and although she looks very uncomfortable to me she says he is doing fine and this will just pass. She is on requip. And recently started on Gabapentin, we are decreasing her requip. She was on haldol many years ago she says for her depression. She says she has parkinsons and told me she is taking propranolol for it. I thinks she has not got it right. She does not know of any aggravating and relieving factors for these episodes. Wheezing 11/29/2012 08/12/2016 Last Assessment & Plan: Patient is audibly wheezing right now. She recently had asthmatic bronchitis and pneumonia, said she is prone to have it. had a course of levaquin. Steroids and bronchodilators. Schizoaffective disorder 11/15/2012 017 Overview: [facility] But [facility] it according to her. Last Assessment & Plan: [facility], But they changed it according to her. Parkinson disease 11/15/2012 12/03/2017 Overview: Radha [place], [place] I went through a lot of [facility]allos [facility]. he does not seem to think she has parkinson's. She had drug induced parkinson's like symptoms that resolved when she stopped taking the inciting medications. Last Assessment & Plan: She will send me a note from him of his latest assessment. documented as of this encounter (statuses as of 05/12/2021) [facility] History of Past illness Narrative* Problem Noted Date Resolved Date Post-operative pain 07/10/2016 08/12/2016 Hypomagnesemia 07/10/2016 07/10/2016 Full incontinence of feces 07/08/201607/10 Ankle instability 04/07/2016 08/12/2016 Posterior tibial tendonitis 04/07/201607/17 Trigger thumb of right hand 11/04/201507/17 Cramp in muscle 04/15/2015 08/12/2016 Primary insomnia 03/19/2015 08/12/2016 Last Assessment & Plan: Struggling with insomnia Pain in left knee 12/03/2014 08/12/2016 Overview: Patient has left knee pain , that got better with PT. Last Assessment & Plan: She is going for PT and now she feels better. significantly Weakness of left leg 11/04/2014 08/12/2016 Pain in joint, lower leg 02/19/2014 017 Tingling in extremities 10/11/2013 10/07/19 17 Overview: She is having tingling in her left thigh, that comes and goes. Going on for a couple months , but since the last 2 weeks she has been having it all the time. Last Assessment & Plan: She is having tingling in her left thigh, that comes and goes. Going on for a couple months , but since the last 2 weeks she has been having it all the time. Urgency of urination 03/09/2013 07/11/2013 Frequency of urination 03/09/2013 4 Last Assessment & Plan: Urinary incontinence is being followed and evaluated by Dr Vazquez, she is having some urodynamic studies done. i reveiwed Dr. Fernandez notes. Obesity 03/09/2013 10/06/2016 Overview: 04/25/13 BMI 48.43. Normal BMI 18.5-25, normal weight range of 112-150 pounds in a person 5 feet 5 inches tall. Last Assessment & Plan: Gaining weight since she has not been able to exercise due to her surgeries. Nausea 02/09/2013 08/12/2016 Last Assessment & Plan: Patient has some nausea recently, is on macrobid for suspected UTI, when she came in last week. Since all her tests are negative including urine culture.i am discontinuing that SOB (shortness of breath) on exertion 02/09/2013 08/12/2016 Last Assessment & Plan: The patient has SOB which was extensively evaluated, initially it was thought to be from asthma. After seeing the family consumer science teacher and all evaluation complete it was thought to from restriction of the lungs from her weight. She also has sleep apnea, needs oxygen bled into the cpap machine, as the desaturations at night time does not normalize with out bleeding oxygen in. Today we checked her oxygen , the results are below. resting with o2 at 3liters- 91% resting room air o2 sat- 90% activity room air o2 sat- 84% activity with nc at 3liters- 91% Urinary incontinence 02/09/2013 03/28/2013 Last Assessment & Plan: Patient is having the incontinence for a month. She is on vesicare but it does not help her. Prior to this she had some leakage and dribbling but it was never this bad. She has been having a lot of accidents in the last month. She is indeed a very complex patient and i would like to refer her to a Urologist so he can evaluate her bladder dynamics. Schizophrenia 01/04/2013 02/06/2014 Overview: Dr Delaney is her psychologist . Has not seen him for a year. Patient says that the diagnosis of schizophrenia was taken off the diagnosis. Last Assessment & Plan: Patients notes indicates, that she has schizophrenia. Has been on Thorazine, haldol and invega. These drugs gave her tardive dyskinesia. She was put on tetrabenzine for it, worked miracles with her and then she got some parkinson's like features. She couldn't even feed herself. She tried the medication twice. Currently she is not on any psychotic medications. Movement disorder 12/28/2012 08/12/2016 Last Assessment & Plan: Patient is here today, sitting in front of me, very restless, constantly moving her feet, knees, things, neck, in what looks like tardive dyskinesia. It happens 2/3 times a week continues for many hours before she can get Rest from it, she said starting or increasing doses of neurontin, have not made the episodes any worse. She can talk to us without a problem and although she looks very uncomfortable to me she says he is doing fine and this will just pass. She is on requip. And recently started on Gabapentin, we are decreasing her requip. She was on haldol many years ago she says for her depression. She says she has parkinsons and told me she is taking propranolol for it. I thinks she has not got it right. She does not know of any aggravating and relieving factors for these episodes. Wheezing 11/29/2012 08/12/2016 Last Assessment & Plan: Patient is audibly wheezing right now. She recently had asthmatic bronchitis and pneumonia, said she is prone to have it. had a course of levaquin. Steroids and bronchodilators. Schizoaffective disorder 11/15/2012 017 Overview: [facility] according to her. Last Assessment & Plan: [facility], But they changed it according to her. Parkinson disease 11/15/2012 12/03/2017 Overview: [place], [place] I went through a lot of [facility]allos [facility]. he does not seem to think she has parkinson's. She had drug induced parkinson's like symptoms that resolved when she stopped taking the inciting medications. Last Assessment & Plan: She will send me a note from him of his latest assessment. documented as of this encounter (statuses as of 05/15/2021) [facility] History of Past illness Narrative* Problem Noted Date Resolved Date Post-operative pain 07/10/2016 08/12/2016 Hypomagnesemia 07/10/2016 07/10/2016 Full incontinence of feces 07/08/201607/10 Ankle instability 04/07/2016 08/12/2016 Posterior tibial tendonitis 04/07/201607/17 Trigger thumb of right hand 11/04/201507/17 Cramp in muscle 04/15/2015 08/12/2016 Primary insomnia 03/19/2015 08/12/2016 Last Assessment & Plan: Struggling with insomnia Pain in left knee 12/03/2014 08/12/2016 Overview: Patient has left knee pain , that got better with PT. Last Assessment & Plan: She is going for PT and now she feels better. significantly Weakness of left leg 11/04/2014 08/12/2016 Pain in joint, lower leg 02/19/2014 017 Tingling in extremities 10/11/2013 10/07/19 17 Overview: She is having tingling in her left thigh, that comes and goes. Going on for a couple months , but since the last 2 weeks she has been having it all the time. Last Assessment & Plan: She is having tingling in her left thigh, that comes and goes. Going on for a couple months , but since the last 2 weeks she has been having it all the time. Urgency of urination 03/09/2013 07/11/2013 Frequency of urination 03/09/2013 4 Last Assessment & Plan: Urinary incontinence is being followed and evaluated by Dr Vazquez, she is having some urodynamic studies done. i reveiwed Dr. Fernandez notes. Obesity 03/09/2013 10/06/2016 Overview: 04/25/13 BMI 48.43. Normal BMI 18.5-25, normal weight range of 112-150 pounds in a person 5 feet 5 inches tall. Last Assessment & Plan: Gaining weight since she has not been able to exercise due to her surgeries. Nausea 02/09/2013 08/12/2016 Last Assessment & Plan: Patient has some nausea recently, is on macrobid for suspected UTI, when she came in last week. Since all her tests are negative including urine culture.i am discontinuing that SOB (shortness of breath) on exertion 02/09/2013 08/12/2016 Last Assessment & Plan: The patient has SOB which was extensively evaluated, initially it was thought to be from asthma. After seeing the family consumer science teacher and all evaluation complete it was thought to from restriction of the lungs from her weight. She also has sleep apnea, needs oxygen bled into the cpap machine, as the desaturations at night time does not normalize with out bleeding oxygen in. Today we checked her oxygen , the results are below. resting with o2 at 3liters- 91% resting room air o2 sat- 90% activity room air o2 sat- 84% activity with nc at 3liters- 91% Urinary incontinence 02/09/2013 03/28/2013 Last Assessment & Plan: Patient is having the incontinence for a month. She is on vesicare but it does not help her. Prior to this she had some leakage and dribbling but it was never this bad. She has been having a lot of accidents in the last month. She is indeed a very complex patient and i would like to refer her to a Urologist so he can evaluate her bladder dynamics. Schizophrenia 01/04/2013 02/06/2014 Overview: Dr Delaney is her psychologist . Has not seen him for a year. Patient says that the diagnosis of schizophrenia was taken off the diagnosis. Last Assessment & Plan: Patients notes indicates, that she has schizophrenia. Has been on Thorazine, haldol and invega. These drugs gave her tardive dyskinesia. She was put on tetrabenzine for it, worked miracles with her and then she got some parkinson's like features. She couldn't even feed herself. She tried the medication twice. Currently she is not on any psychotic medications. Movement disorder 12/28/2012 08/12/2016 Last Assessment & Plan: Patient is here today, sitting in front of me, very restless, constantly moving her feet, knees, things, neck, in what looks like tardive dyskinesia. It happens 2/3 times a week continues for many hours before she can get Rest from it, she said starting or increasing doses of neurontin, have not made the episodes any worse. She can talk to us without a problem and although she looks very uncomfortable to me she says he is doing fine and this will just pass. She is on requip. And recently started on Gabapentin, we are decreasing her requip. She was on haldol many years ago she says for her depression. She says she has parkinsons and told me she is taking propranolol for it. I thinks she has not got it right. She does not know of any aggravating and relieving factors for these episodes. Wheezing 11/29/2012 08/12/2016 Last Assessment & Plan: Patient is audibly wheezing right now. She recently had asthmatic bronchitis and pneumonia, said she is prone to have it. had a course of levaquin. Steroids and bronchodilators. Schizoaffective disorder 11/15/2012 017 Overview: [facility] But [facility] it according to her. Last Assessment & Plan: [facility], But they changed it according to her. Parkinson disease 11/15/2012 12/03/2017 Overview: [place], [place] I went through a lot of [facility]allos [facility]. he does not seem to think she has parkinson's. She had drug induced parkinson's like symptoms that resolved when she stopped taking the inciting medications. Last Assessment & Plan: She will send me a note from him of his latest assessment. documented as of this encounter (statuses as of 05/27/2021) [facility] History of Past illness Narrative* Problem Noted Date Resolved Date Post-operative pain 07/10/2016 08/12/2016 Hypomagnesemia 07/10/2016 07/10/2016 Full incontinence of feces 07/08/201607/10 Ankle instability 04/07/2016 08/12/2016 Posterior tibial tendonitis 04/07/201607/17 Trigger thumb of right hand 11/04/201507/17 Cramp in muscle 04/15/2015 08/12/2016 Primary insomnia 03/19/2015 08/12/2016 Last Assessment & Plan: Struggling with insomnia Pain in left knee 12/03/2014 08/12/2016 Overview: Patient has left knee pain , that got better with PT. Last Assessment & Plan: She is going for PT and now she feels better. significantly Weakness of left leg 11/04/2014 08/12/2016 Pain in joint, lower leg 02/19/2014 017 Tingling in extremities 10/11/2013 10/07/19 17 Overview: She is having tingling in her left thigh, that comes and goes. Going on for a couple months , but since the last 2 weeks she has been having it all the time. Last Assessment & Plan: She is having tingling in her left thigh, that comes and goes. Going on for a couple months , but since the last 2 weeks she has been having it all the time. Urgency of urination 03/09/2013 07/11/2013 Frequency of urination 03/09/2013 4 Last Assessment & Plan: Urinary incontinence is being followed and evaluated by Dr Vazquez, she is having some urodynamic studies done. i reveiwed Dr. Fernandez notes. Obesity 03/09/2013 10/06/2016 Overview: 04/25/13 BMI 48.43. Normal BMI 18.5-25, normal weight range of 112-150 pounds in a person 5 feet 5 inches tall. Last Assessment & Plan: Gaining weight since she has not been able to exercise due to her surgeries. Nausea 02/09/2013 08/12/2016 Last Assessment & Plan: Patient has some nausea recently, is on macrobid for suspected UTI, when she came in last week. Since all her tests are negative including urine culture.i am discontinuing that SOB (shortness of breath) on exertion 02/09/2013 08/12/2016 Last Assessment & Plan: The patient has SOB which was extensively evaluated, initially it was thought to be from asthma. After seeing the family consumer science teacher and all evaluation complete it was thought to from restriction of the lungs from her weight. She also has sleep apnea, needs oxygen bled into the cpap machine, as the desaturations at night time does not normalize with out bleeding oxygen in. Today we checked her oxygen , the results are below. resting with o2 at 3liters- 91% resting room air o2 sat- 90% activity room air o2 sat- 84% activity with nc at 3liters- 91% Urinary incontinence 02/09/2013 03/28/2013 Last Assessment & Plan: Patient is having the incontinence for a month. She is on vesicare but it does not help her. Prior to this she had some leakage and dribbling but it was never this bad. She has been having a lot of accidents in the last month. She is indeed a very complex patient and i would like to refer her to a Urologist so he can evaluate her bladder dynamics. Schizophrenia 01/04/2013 02/06/2014 Overview: Dr Delaney is her psychologist . Has not seen him for a year. Patient says that the diagnosis of schizophrenia was taken off the diagnosis. Last Assessment & Plan: Patients notes indicates, that she has schizophrenia. Has been on Thorazine, haldol and invega. These drugs gave her tardive dyskinesia. She was put on tetrabenzine for it, worked miracles with her and then she got some parkinson's like features. She couldn't even feed herself. She tried the medication twice. Currently she is not on any psychotic medications. Movement disorder 12/28/2012 08/12/2016 Last Assessment & Plan: Patient is here today, sitting in front of me, very restless, constantly moving her feet, knees, things, neck, in what looks like tardive dyskinesia. It happens 2/3 times a week continues for many hours before she can get Rest from it, she said starting or increasing doses of neurontin, have not made the episodes any worse. She can talk to us without a problem and although she looks very uncomfortable to me she says he is doing fine and this will just pass. She is on requip. And recently started on Gabapentin, we are decreasing her requip. She was on haldol many years ago she says for her depression. She says she has parkinsons and told me she is taking propranolol for it. I thinks she has not got it right. She does not know of any aggravating and relieving factors for these episodes. Wheezing 11/29/2012 08/12/2016 Last Assessment & Plan: Patient is audibly wheezing right now. She recently had asthmatic bronchitis and pneumonia, said she is prone to have it. had a course of levaquin. Steroids and bronchodilators. Schizoaffective disorder 11/15/2012 017 Overview: [facility] But [facility] it according to her. Last Assessment & Plan: [facility], But they changed it according to her. Parkinson disease 11/15/2012 12/03/2017 Overview: [place], [place] I went through a lot of DR. Cevallos [facility]. he does not seem to think she has parkinson's. She had drug induced parkinson's like symptoms that resolved when she stopped taking the inciting medications. Last Assessment & Plan: She will send me a note from him of his latest assessment. documented as of this encounter (statuses as of 06/02/2021) [facility]05-[facility]-2017 History of Past illness Narrative* Problem Noted Date Resolved Date Post-operative pain 07/10/2016 08/12/2016 Hypomagnesemia 07/10/2016 07/10/2016 Full incontinence of feces 07/08/201607/10 Ankle instability 04/07/2016 08/12/2016 Posterior tibial tendonitis 04/07/201607/17 Trigger thumb of right hand 11/04/201507/17 Cramp in muscle 04/15/2015 08/12/2016 Primary insomnia 03/19/2015 08/12/2016 Last Assessment & Plan: Struggling with insomnia Pain in left knee 12/03/2014 08/12/2016 Overview: Patient has left knee pain , that got better with PT. Last Assessment & Plan: She is going for PT and now she feels better. significantly Weakness of left leg 11/04/2014 08/12/2016 Pain in joint, lower leg 02/19/2014 017 Tingling in extremities 10/11/2013 10/07/19 17 Overview: She is having tingling in her left thigh, that comes and goes. Going on for a couple months , but since the last 2 weeks she has been having it all the time. Last Assessment & Plan: She is having tingling in her left thigh, that comes and goes. Going on for a couple months , but since the last 2 weeks she has been having it all the time. Urgency of urination 03/09/2013 07/11/2013 Frequency of urination 03/09/2013 4 Last Assessment & Plan: Urinary incontinence is being followed and evaluated by Dr Vazquez, she is having some urodynamic studies done. i reveiwed Dr. Fernandez notes. Obesity 03/09/2013 10/06/2016 Overview: 04/25/13 BMI 48.43. Normal BMI 18.5-25, normal weight range of 112-150 pounds in a person 5 feet 5 inches tall. Last Assessment & Plan: Gaining weight since she has not been able to exercise due to her surgeries. Nausea 02/09/2013 08/12/2016 Last Assessment & Plan: Patient has some nausea recently, is on macrobid for suspected UTI, when she came in last week. Since all her tests are negative including urine culture.i am discontinuing that SOB (shortness of breath) on exertion 02/09/2013 08/12/2016 Last Assessment & Plan: The patient has SOB which was extensively evaluated, initially it was thought to be from asthma. After seeing the family consumer science teacher and all evaluation complete it was thought to from restriction of the lungs from her weight. She also has sleep apnea, needs oxygen bled into the cpap machine, as the desaturations at night time does not normalize with out bleeding oxygen in. Today we checked her oxygen , the results are below. resting with o2 at 3liters- 91% resting room air o2 sat- 90% activity room air o2 sat- 84% activity with nc at 3liters- 91% Urinary incontinence 02/09/2013 03/28/2013 Last Assessment & Plan: Patient is having the incontinence for a month. She is on vesicare but it does not help her. Prior to this she had some leakage and dribbling but it was never this bad. She has been having a lot of accidents in the last month. She is indeed a very complex patient and i would like to refer her to a Urologist so he can evaluate her bladder dynamics. Schizophrenia 01/04/2013 02/06/2014 Overview: Dr Delaney is her psychologist . Has not seen him for a year. Patient says that the diagnosis of schizophrenia was taken off the diagnosis. Last Assessment & Plan: Patients notes indicates, that she has schizophrenia. Has been on Thorazine, haldol and invega. These drugs gave her tardive dyskinesia. She was put on tetrabenzine for it, worked miracles with her and then she got some parkinson's like features. She couldn't even feed herself. She tried the medication twice. Currently she is not on any psychotic medications. Movement disorder 12/28/2012 08/12/2016 Last Assessment & Plan: Patient is here today, sitting in front of me, very restless, constantly moving her feet, knees, things, neck, in what looks like tardive dyskinesia. It happens 2/3 times a week continues for many hours before she can get Rest from it, she said starting or increasing doses of neurontin, have not made the episodes any worse. She can talk to us without a problem and although she looks very uncomfortable to me she says he is doing fine and this will just pass. She is on requip. And recently started on Gabapentin, we are decreasing her requip. She was on haldol many years ago she says for her depression. She says she has parkinsons and told me she is taking propranolol for it. I thinks she has not got it right. She does not know of any aggravating and relieving factors for these episodes. Wheezing 11/29/2012 08/12/2016 Last Assessment & Plan: Patient is audibly wheezing right now. She recently had asthmatic bronchitis and pneumonia, said she is prone to have it. had a course of levaquin. Steroids and bronchodilators. Schizoaffective disorder 11/15/2012 017 Overview: [facility] But [facility] it according to her. Last Assessment & Plan: [facility], But they changed it according to her. Parkinson disease 11/15/2012 12/03/2017 Overview: [place]ha [place], [place] I went through a lot of DR. Cevallos notes from [facility]. he does not seem to think she has parkinson's. She had drug induced parkinson's like symptoms that resolved when she stopped taking the inciting medications. Last Assessment & Plan: She will send me a note from him of his latest assessment. documented as of this encounter (statuses as of 06/04/2021) [facility]05[facility]2017 History of Past illness Narrative* Problem Noted Date Resolved Date Post-operative pain 07/10/2016 08/12/2016 Hypomagnesemia 07/10/2016 07/10/2016 Full incontinence of feces 07/08/201607/10 Ankle instability 04/07/2016 08/12/2016 Posterior tibial tendonitis 04/07/201607/17 Trigger thumb of right hand 11/04/201507/17 Cramp in muscle 04/15/2015 08/12/2016 Primary insomnia 03/19/2015 08/12/2016 Last Assessment & Plan: Struggling with insomnia Pain in left knee 12/03/2014 08/12/2016 Overview: Patient has left knee pain , that got better with PT. Last Assessment & Plan: She is going for PT and now she feels better. significantly Weakness of left leg 11/04/2014 08/12/2016 Pain in joint, lower leg 02/19/2014 017 Tingling in extremities 10/11/2013 10/07/19 17 Overview: She is having tingling in her left thigh, that comes and goes. Going on for a couple months , but since the last 2 weeks she has been having it all the time. Last Assessment & Plan: She is having tingling in her left thigh, that comes and goes. Going on for a couple months , but since the last 2 weeks she has been having it all the time. Urgency of urination 03/09/2013 07/11/2013 Frequency of urination 03/09/2013 4 Last Assessment & Plan: Urinary incontinence is being followed and evaluated by Dr Vazquez, she is having some urodynamic studies done. i reveiwed Dr. Fernandez notes. Obesity 03/09/2013 10/06/2016 Overview: 04/25/13 BMI 48.43. Normal BMI 18.5-25, normal weight range of 112-150 pounds in a person 5 feet 5 inches tall. Last Assessment & Plan: Gaining weight since she has not been able to exercise due to her surgeries. Nausea 02/09/2013 08/12/2016 Last Assessment & Plan: Patient has some nausea recently, is on macrobid for suspected UTI, when she came in last week. Since all her tests are negative including urine culture.i am discontinuing that SOB (shortness of breath) on exertion 02/09/2013 08/12/2016 Last Assessment & Plan: The patient has SOB which was extensively evaluated, initially it was thought to be from asthma. After seeing the family consumer science teacher and all evaluation complete it was thought to from restriction of the lungs from her weight. She also has sleep apnea, needs oxygen bled into the cpap machine, as the desaturations at night time does not normalize with out bleeding oxygen in. Today we checked her oxygen , the results are below. resting with o2 at 3liters- 91% resting room air o2 sat- 90% activity room air o2 sat- 84% activity with nc at 3liters- 91% Urinary incontinence 02/09/2013 03/28/2013 Last Assessment & Plan: Patient is having the incontinence for a month. She is on vesicare but it does not help her. Prior to this she had some leakage and dribbling but it was never this bad. She has been having a lot of accidents in the last month. She is indeed a very complex patient and i would like to refer her to a Urologist so he can evaluate her bladder dynamics. Schizophrenia 01/04/2013 02/06/2014 Overview: Dr Delaney is her psychologist . Has not seen him for a year. Patient says that the diagnosis of schizophrenia was taken off the diagnosis. Last Assessment & Plan: Patients notes indicates, that she has schizophrenia. Has been on Thorazine, haldol and invega. These drugs gave her tardive dyskinesia. She was put on tetrabenzine for it, worked miracles with her and then she got some parkinson's like features. She couldn't even feed herself. She tried the medication twice. Currently she is not on any psychotic medications. Movement disorder 12/28/2012 08/12/2016 Last Assessment & Plan: Patient is here today, sitting in front of me, very restless, constantly moving her feet, knees, things, neck, in what looks like tardive dyskinesia. It happens 2/3 times a week continues for many hours before she can get Rest from it, she said starting or increasing doses of neurontin, have not made the episodes any worse. She can talk to us without a problem and although she looks very uncomfortable to me she says he is doing fine and this will just pass. She is on requip. And recently started on Gabapentin, we are decreasing her requip. She was on haldol many years ago she says for her depression. She says she has parkinsons and told me she is taking propranolol for it. I thinks she has not got it right. She does not know of any aggravating and relieving factors for these episodes. Wheezing 11/29/2012 08/12/2016 Last Assessment & Plan: Patient is audibly wheezing right now. She recently had asthmatic bronchitis and pneumonia, said she is prone to have it. had a course of levaquin. Steroids and bronchodilators. Schizoaffective disorder 11/15/2012 017 Overview: [facility] But [facility] it according to her. Last Assessment & Plan: [facility], But they changed it according to her. Parkinson disease 11/15/2012 12/03/2017 Overview: [place], [place] I went through a lot of DR[facility]allos [facility]. he does not seem to think she has parkinson's. She had drug induced parkinson's like symptoms that resolved when she stopped taking the inciting medications. Last Assessment & Plan: She will send me a note from him of his latest assessment. documented as of this encounter (statuses as of 06/06/2021) [facility]2017 History of Past illness Narrative* Problem Noted Date Resolved Date Post-operative pain 07/10/2016 08/12/2016 Hypomagnesemia 07/10/2016 07/10/2016 Full incontinence of feces 07/08/201607/10 Ankle instability 04/07/2016 08/12/2016 Posterior tibial tendonitis 04/07/201607/17 Trigger thumb of right hand 11/04/201507/17 Cramp in muscle 04/15/2015 08/12/2016 Primary insomnia 03/19/2015 08/12/2016 Last Assessment & Plan: Struggling with insomnia Pain in left knee 12/03/2014 08/12/2016 Overview: Patient has left knee pain , that got better with PT. Last Assessment & Plan: She is going for PT and now she feels better. significantly Weakness of left leg 11/04/2014 08/12/2016 Pain in joint, lower leg 02/19/2014 017 Tingling in extremities 10/11/2013 10/07/19 17 Overview: She is having tingling in her left thigh, that comes and goes. Going on for a couple months , but since the last 2 weeks she has been having it all the time. Last Assessment & Plan: She is having tingling in her left thigh, that comes and goes. Going on for a couple months , but since the last 2 weeks she has been having it all the time. Urgency of urination 03/09/2013 07/11/2013 Frequency of urination 03/09/2013 4 Last Assessment & Plan: Urinary incontinence is being followed and evaluated by Dr Vazquez, she is having some urodynamic studies done. i reveiwed Dr. Fernandez notes. Obesity 03/09/2013 10/06/2016 Overview: 04/25/13 BMI 48.43. Normal BMI 18.5-25, normal weight range of 112-150 pounds in a person 5 feet 5 inches tall. Last Assessment & Plan: Gaining weight since she has not been able to exercise due to her surgeries. Nausea 02/09/2013 08/12/2016 Last Assessment & Plan: Patient has some nausea recently, is on macrobid for suspected UTI, when she came in last week. Since all her tests are negative including urine culture.i am discontinuing that SOB (shortness of breath) on exertion 02/09/2013 08/12/2016 Last Assessment & Plan: The patient has SOB which was extensively evaluated, initially it was thought to be from asthma. After seeing the family consumer science teacher and all evaluation complete it was thought to from restriction of the lungs from her weight. She also has sleep apnea, needs oxygen bled into the cpap machine, as the desaturations at night time does not normalize with out bleeding oxygen in. Today we checked her oxygen , the results are below. resting with o2 at 3liters- 91% resting room air o2 sat- 90% activity room air o2 sat- 84% activity with nc at 3liters- 91% Urinary incontinence 02/09/2013 03/28/2013 Last Assessment & Plan: Patient is having the incontinence for a month. She is on vesicare but it does not help her. Prior to this she had some leakage and dribbling but it was never this bad. She has been having a lot of accidents in the last month. She is indeed a very complex patient and i would like to refer her to a Urologist so he can evaluate her bladder dynamics. Schizophrenia 01/04/2013 02/06/2014 Overview: Dr Delaney is her psychologist . Has not seen him for a year. Patient says that the diagnosis of schizophrenia was taken off the diagnosis. Last Assessment & Plan: Patients notes indicates, that she has schizophrenia. Has been on Thorazine, haldol and invega. These drugs gave her tardive dyskinesia. She was put on tetrabenzine for it, worked miracles with her and then she got some parkinson's like features. She couldn't even feed herself. She tried the medication twice. Currently she is not on any psychotic medications. Movement disorder 12/28/2012 08/12/2016 Last Assessment & Plan: Patient is here today, sitting in front of me, very restless, constantly moving her feet, knees, things, neck, in what looks like tardive dyskinesia. It happens 2/3 times a week continues for many hours before she can get Rest from it, she said starting or increasing doses of neurontin, have not made the episodes any worse. She can talk to us without a problem and although she looks very uncomfortable to me she says he is doing fine and this will just pass. She is on requip. And recently started on Gabapentin, we are decreasing her requip. She was on haldol many years ago she says for her depression. She says she has parkinsons and told me she is taking propranolol for it. I thinks she has not got it right. She does not know of any aggravating and relieving factors for these episodes. Wheezing 11/29/2012 08/12/2016 Last Assessment & Plan: Patient is audibly wheezing right now. She recently had asthmatic bronchitis and pneumonia, said she is prone to have it. had a course of levaquin. Steroids and bronchodilators. Schizoaffective disorder 11/15/2012 017 Overview: [facility] But [facility] it according to her. Last Assessment & Plan: [facility], But they changed it according to her. Parkinson disease 11/15/2012 12/03/2017 Overview: [place], [place] I went through a lot of [facility]allos [facility]. he does not seem to think she has parkinson's. She had drug induced parkinson's like symptoms that resolved when she stopped taking the inciting medications. Last Assessment & Plan: She will send me a note from him of his latest assessment. documented as of this encounter (statuses as of 06/06/2021) [facility] History of Past illness Narrative* Problem Noted Date Resolved Date Post-operative pain 07/10/2016 08/12/2016 Hypomagnesemia 07/10/2016 07/10/2016 Full incontinence of feces 07/08/201607/10 Ankle instability 04/07/2016 08/12/2016 Posterior tibial tendonitis 04/07/201607/17 Trigger thumb of right hand 11/04/201507/17 Cramp in muscle 04/15/2015 08/12/2016 Primary insomnia 03/19/2015 08/12/2016 Last Assessment & Plan: Struggling with insomnia Pain in left knee 12/03/2014 08/12/2016 Overview: Patient has left knee pain , that got better with PT. Last Assessment & Plan: She is going for PT and now she feels better. significantly Weakness of left leg 11/04/2014 08/12/2016 Pain in joint, lower leg 02/19/2014 017 Tingling in extremities 10/11/2013 10/07/19 17 Overview: She is having tingling in her left thigh, that comes and goes. Going on for a couple months , but since the last 2 weeks she has been having it all the time. Last Assessment & Plan: She is having tingling in her left thigh, that comes and goes. Going on for a couple months , but since the last 2 weeks she has been having it all the time. Urgency of urination 03/09/2013 07/11/2013 Frequency of urination 03/09/2013 4 Last Assessment & Plan: Urinary incontinence is being followed and evaluated by Dr Vazquez, she is having some urodynamic studies done. i reveiwed Dr. Fernandez notes. Obesity 03/09/2013 10/06/2016 Overview: 04/25/13 BMI 48.43. Normal BMI 18.5-25, normal weight range of 112-150 pounds in a person 5 feet 5 inches tall. Last Assessment & Plan: Gaining weight since she has not been able to exercise due to her surgeries. Nausea 02/09/2013 08/12/2016 Last Assessment & Plan: Patient has some nausea recently, is on macrobid for suspected UTI, when she came in last week. Since all her tests are negative including urine culture.i am discontinuing that SOB (shortness of breath) on exertion 02/09/2013 08/12/2016 Last Assessment & Plan: The patient has SOB which was extensively evaluated, initially it was thought to be from asthma. After seeing the family consumer science teacher and all evaluation complete it was thought to from restriction of the lungs from her weight. She also has sleep apnea, needs oxygen bled into the cpap machine, as the desaturations at night time does not normalize with out bleeding oxygen in. Today we checked her oxygen , the results are below. resting with o2 at 3liters- 91% resting room air o2 sat- 90% activity room air o2 sat- 84% activity with nc at 3liters- 91% Urinary incontinence 02/09/2013 03/28/2013 Last Assessment & Plan: Patient is having the incontinence for a month. She is on vesicare but it does not help her. Prior to this she had some leakage and dribbling but it was never this bad. She has been having a lot of accidents in the last month. She is indeed a very complex patient and i would like to refer her to a Urologist so he can evaluate her bladder dynamics. Schizophrenia 01/04/2013 02/06/2014 Overview: Dr Delaney is her psychologist . Has not seen him for a year. Patient says that the diagnosis of schizophrenia was taken off the diagnosis. Last Assessment & Plan: Patients notes indicates, that she has schizophrenia. Has been on Thorazine, haldol and invega. These drugs gave her tardive dyskinesia. She was put on tetrabenzine for it, worked miracles with her and then she got some parkinson's like features. She couldn't even feed herself. She tried the medication twice. Currently she is not on any psychotic medications. Movement disorder 12/28/2012 08/12/2016 Last Assessment & Plan: Patient is here today, sitting in front of me, very restless, constantly moving her feet, knees, things, neck, in what looks like tardive dyskinesia. It happens 2/3 times a week continues for many hours before she can get Rest from it, she said starting or increasing doses of neurontin, have not made the episodes any worse. She can talk to us without a problem and although she looks very uncomfortable to me she says he is doing fine and this will just pass. She is on requip. And recently started on Gabapentin, we are decreasing her requip. She was on haldol many years ago she says for her depression. She says she has parkinsons and told me she is taking propranolol for it. I thinks she has not got it right. She does not know of any aggravating and relieving factors for these episodes. Wheezing 11/29/2012 08/12/2016 Last Assessment & Plan: Patient is audibly wheezing right now. She recently had asthmatic bronchitis and pneumonia, said she is prone to have it. had a course of levaquin. Steroids and bronchodilators. Schizoaffective disorder 11/15/2012 017 Overview: [facility] But [facility] it according to her. Last Assessment & Plan: [facility], But they changed it according to her. Parkinson disease 11/15/2012 12/03/2017 Overview: Radha [place], [place] I went through a lot of DR[facility] Cevallos [facility]. he does not seem to think she has parkinson's. She had drug induced parkinson's like symptoms that resolved when she stopped taking the inciting medications. Last Assessment & Plan: She will send me a note from him of his latest assessment. documented as of this encounter (statuses as of 06/09/2021) [facility]05-[facility]2017 History of Past illness Narrative* Problem Noted Date Resolved Date Post-operative pain 07/10/2016 08/12/2016 Hypomagnesemia 07/10/2016 07/10/2016 Full incontinence of feces 07/08/201607/10 Ankle instability 04/07/2016 08/12/2016 Posterior tibial tendonitis 04/07/201607/17 Trigger thumb of right hand 11/04/201507/17 Cramp in muscle 04/15/2015 08/12/2016 Primary insomnia 03/19/2015 08/12/2016 Last Assessment & Plan: Struggling with insomnia Pain in left knee 12/03/2014 08/12/2016 Overview: Patient has left knee pain , that got better with PT. Last Assessment & Plan: She is going for PT and now she feels better. significantly Weakness of left leg 11/04/2014 08/12/2016 Pain in joint, lower leg 02/19/2014 017 Tingling in extremities 10/11/2013 10/07/19 17 Overview: She is having tingling in her left thigh, that comes and goes. Going on for a couple months , but since the last 2 weeks she has been having it all the time. Last Assessment & Plan: She is having tingling in her left thigh, that comes and goes. Going on for a couple months , but since the last 2 weeks she has been having it all the time. Urgency of urination 03/09/2013 07/11/2013 Frequency of urination 03/09/2013 4 Last Assessment & Plan: Urinary incontinence is being followed and evaluated by Dr Vazquez, she is having some urodynamic studies done. i reveiwed Dr. Fernandez notes. Obesity 03/09/2013 10/06/2016 Overview: 04/25/13 BMI 48.43. Normal BMI 18.5-25, normal weight range of 112-150 pounds in a person 5 feet 5 inches tall. Last Assessment & Plan: Gaining weight since she has not been able to exercise due to her surgeries. Nausea 02/09/2013 08/12/2016 Last Assessment & Plan: Patient has some nausea recently, is on macrobid for suspected UTI, when she came in last week. Since all her tests are negative including urine culture.i am discontinuing that SOB (shortness of breath) on exertion 02/09/2013 08/12/2016 Last Assessment & Plan: The patient has SOB which was extensively evaluated, initially it was thought to be from asthma. After seeing the family consumer science teacher and all evaluation complete it was thought to from restriction of the lungs from her weight. She also has sleep apnea, needs oxygen bled into the cpap machine, as the desaturations at night time does not normalize with out bleeding oxygen in. Today we checked her oxygen , the results are below. resting with o2 at 3liters- 91% resting room air o2 sat- 90% activity room air o2 sat- 84% activity with nc at 3liters- 91% Urinary incontinence 02/09/2013 03/28/2013 Last Assessment & Plan: Patient is having the incontinence for a month. She is on vesicare but it does not help her. Prior to this she had some leakage and dribbling but it was never this bad. She has been having a lot of accidents in the last month. She is indeed a very complex patient and i would like to refer her to a Urologist so he can evaluate her bladder dynamics. Schizophrenia 01/04/2013 02/06/2014 Overview: Dr Delaney is her psychologist . Has not seen him for a year. Patient says that the diagnosis of schizophrenia was taken off the diagnosis. Last Assessment & Plan: Patients notes indicates, that she has schizophrenia. Has been on Thorazine, haldol and invega. These drugs gave her tardive dyskinesia. She was put on tetrabenzine for it, worked miracles with her and then she got some parkinson's like features. She couldn't even feed herself. She tried the medication twice. Currently she is not on any psychotic medications. Movement disorder 12/28/2012 08/12/2016 Last Assessment & Plan: Patient is here today, sitting in front of me, very restless, constantly moving her feet, knees, things, neck, in what looks like tardive dyskinesia. It happens 2/3 times a week continues for many hours before she can get Rest from it, she said starting or increasing doses of neurontin, have not made the episodes any worse. She can talk to us without a problem and although she looks very uncomfortable to me she says he is doing fine and this will just pass. She is on requip. And recently started on Gabapentin, we are decreasing her requip. She was on haldol many years ago she says for her depression. She says she has parkinsons and told me she is taking propranolol for it. I thinks she has not got it right. She does not know of any aggravating and relieving factors for these episodes. Wheezing 11/29/2012 08/12/2016 Last Assessment & Plan: Patient is audibly wheezing right now. She recently had asthmatic bronchitis and pneumonia, said she is prone to have it. had a course of levaquin. Steroids and bronchodilators. Schizoaffective disorder 11/15/2012 017 Overview: [facility] But [facility] it according to her. Last Assessment & Plan: [facility], But they changed it according to her. Parkinson disease 11/15/2012 12/03/2017 Overview: Radha [place], [place] I went through a lot of DR. Cevallos notes from [facility]. he does not seem to think she has parkinson's. She had drug induced parkinson's like symptoms that resolved when she stopped taking the inciting medications. Last Assessment & Plan: She will send me a note from him of his latest assessment. documented as of this encounter (statuses as of 06/12/2021) [facility]05[facility]2017 History of Past illness Narrative* Problem Noted Date Resolved Date Post-operative pain 07/10/2016 08/12/2016 Hypomagnesemia 07/10/2016 07/10/2016 Full incontinence of feces 07/08/201607/10 Ankle instability 04/07/2016 08/12/2016 Posterior tibial tendonitis 04/07/201607/17 Trigger thumb of right hand 11/04/201507/17 Cramp in muscle 04/15/2015 08/12/2016 Primary insomnia 03/19/2015 08/12/2016 Last Assessment & Plan: Struggling with insomnia Pain in left knee 12/03/2014 08/12/2016 Overview: Patient has left knee pain , that got better with PT. Last Assessment & Plan: She is going for PT and now she feels better. significantly Weakness of left leg 11/04/2014 08/12/2016 Pain in joint, lower leg 02/19/2014 017 Tingling in extremities 10/11/2013 10/07/19 17 Overview: She is having tingling in her left thigh, that comes and goes. Going on for a couple months , but since the last 2 weeks she has been having it all the time. Last Assessment & Plan: She is having tingling in her left thigh, that comes and goes. Going on for a couple months , but since the last 2 weeks she has been having it all the time. Urgency of urination 03/09/2013 07/11/2013 Frequency of urination 03/09/2013 4 Last Assessment & Plan: Urinary incontinence is being followed and evaluated by Dr Vazquez, she is having some urodynamic studies done. i reveiwed Dr. Fernandez notes. Obesity 03/09/2013 10/06/2016 Overview: 04/25/13 BMI 48.43. Normal BMI 18.5-25, normal weight range of 112-150 pounds in a person 5 feet 5 inches tall. Last Assessment & Plan: Gaining weight since she has not been able to exercise due to her surgeries. Nausea 02/09/2013 08/12/2016 Last Assessment & Plan: Patient has some nausea recently, is on macrobid for suspected UTI, when she came in last week. Since all her tests are negative including urine culture.i am discontinuing that SOB (shortness of breath) on exertion 02/09/2013 08/12/2016 Last Assessment & Plan: The patient has SOB which was extensively evaluated, initially it was thought to be from asthma. After seeing the family consumer science teacher and all evaluation complete it was thought to from restriction of the lungs from her weight. She also has sleep apnea, needs oxygen bled into the cpap machine, as the desaturations at night time does not normalize with out bleeding oxygen in. Today we checked her oxygen , the results are below. resting with o2 at 3liters- 91% resting room air o2 sat- 90% activity room air o2 sat- 84% activity with nc at 3liters- 91% Urinary incontinence 02/09/2013 03/28/2013 Last Assessment & Plan: Patient is having the incontinence for a month. She is on vesicare but it does not help her. Prior to this she had some leakage and dribbling but it was never this bad. She has been having a lot of accidents in the last month. She is indeed a very complex patient and i would like to refer her to a Urologist so he can evaluate her bladder dynamics. Schizophrenia 01/04/2013 02/06/2014 Overview: Dr Delaney is her psychologist . Has not seen him for a year. Patient says that the diagnosis of schizophrenia was taken off the diagnosis. Last Assessment & Plan: Patients notes indicates, that she has schizophrenia. Has been on Thorazine, haldol and invega. These drugs gave her tardive dyskinesia. She was put on tetrabenzine for it, worked miracles with her and then she got some parkinson's like features. She couldn't even feed herself. She tried the medication twice. Currently she is not on any psychotic medications. Movement disorder 12/28/2012 08/12/2016 Last Assessment & Plan: Patient is here today, sitting in front of me, very restless, constantly moving her feet, knees, things, neck, in what looks like tardive dyskinesia. It happens 2/3 times a week continues for many hours before she can get Rest from it, she said starting or increasing doses of neurontin, have not made the episodes any worse. She can talk to us without a problem and although she looks very uncomfortable to me she says he is doing fine and this will just pass. She is on requip. And recently started on Gabapentin, we are decreasing her requip. She was on haldol many years ago she says for her depression. She says she has parkinsons and told me she is taking propranolol for it. I thinks she has not got it right. She does not know of any aggravating and relieving factors for these episodes. Wheezing 11/29/2012 08/12/2016 Last Assessment & Plan: Patient is audibly wheezing right now. She recently had asthmatic bronchitis and pneumonia, said she is prone to have it. had a course of levaquin. Steroids and bronchodilators. Schizoaffective disorder 11/15/2012 05/09/2 017 Overview: [facility] But [facility] it according to her. Last Assessment & Plan: [facility], But they changed it according to her. Parkinson disease 11/15/2012 12/03/2017 Overview: Radha [place], [place] I went through a lot of DR[facility]allos [facility]. he does not seem to think she has parkinson's. She had drug induced parkinson's like symptoms that resolved when she stopped taking the inciting medications. Last Assessment & Plan: She will send me a note from him of his latest assessment. documented as of this encounter (statuses as of 06/16/2021) [facility]05[facility]2017 History of Past illness Narrative* Problem Noted Date Resolved Date Post-operative pain 07/10/2016 08/12/2016 Hypomagnesemia 07/10/2016 07/10/2016 Full incontinence of feces 07/08/201607/10 Ankle instability 04/07/2016 08/12/2016 Posterior tibial tendonitis 04/07/201607/17 Trigger thumb of right hand 11/04/201507/17 Cramp in muscle 04/15/2015 08/12/2016 Primary insomnia 03/19/2015 08/12/2016 Last Assessment & Plan: Struggling with insomnia Pain in left knee 12/03/2014 08/12/2016 Overview: Patient has left knee pain , that got better with PT. Last Assessment & Plan: She is going for PT and now she feels better. significantly Weakness of left leg 11/04/2014 08/12/2016 Pain in joint, lower leg 02/19/2014 017 Tingling in extremities 10/11/2013 10/07/19 17 Overview: She is having tingling in her left thigh, that comes and goes. Going on for a couple months , but since the last 2 weeks she has been having it all the time. Last Assessment & Plan: She is having tingling in her left thigh, that comes and goes. Going on for a couple months , but since the last 2 weeks she has been having it all the time. Urgency of urination 03/09/2013 07/11/2013 Frequency of urination 03/09/2013 4 Last Assessment & Plan: Urinary incontinence is being followed and evaluated by Dr Vazquez, she is having some urodynamic studies done. i reveiwed Dr. Fernandez notes. Obesity 03/09/2013 10/06/2016 Overview: 04/25/13 BMI 48.43. Normal BMI 18.5-25, normal weight range of 112-150 pounds in a person 5 feet 5 inches tall. Last Assessment & Plan: Gaining weight since she has not been able to exercise due to her surgeries. Nausea 02/09/2013 08/12/2016 Last Assessment & Plan: Patient has some nausea recently, is on macrobid for suspected UTI, when she came in last week. Since all her tests are negative including urine culture.i am discontinuing that SOB (shortness of breath) on exertion 02/09/2013 08/12/2016 Last Assessment & Plan: The patient has SOB which was extensively evaluated, initially it was thought to be from asthma. After seeing the family consumer science teacher and all evaluation complete it was thought to from restriction of the lungs from her weight. She also has sleep apnea, needs oxygen bled into the cpap machine, as the desaturations at night time does not normalize with out bleeding oxygen in. Today we checked her oxygen , the results are below. resting with o2 at 3liters- 91% resting room air o2 sat- 90% activity room air o2 sat- 84% activity with nc at 3liters- 91% Urinary incontinence 02/09/2013 03/28/2013 Last Assessment & Plan: Patient is having the incontinence for a month. She is on vesicare but it does not help her. Prior to this she had some leakage and dribbling but it was never this bad. She has been having a lot of accidents in the last month. She is indeed a very complex patient and i would like to refer her to a Urologist so he can evaluate her bladder dynamics. Schizophrenia 01/04/2013 02/06/2014 Overview: Dr Delaney is her psychologist . Has not seen him for a year. Patient says that the diagnosis of schizophrenia was taken off the diagnosis. Last Assessment & Plan: Patients notes indicates, that she has schizophrenia. Has been on Thorazine, haldol and invega. These drugs gave her tardive dyskinesia. She was put on tetrabenzine for it, worked miracles with her and then she got some parkinson's like features. She couldn't even feed herself. She tried the medication twice. Currently she is not on any psychotic medications. Movement disorder 12/28/2012 08/12/2016 Last Assessment & Plan: Patient is here today, sitting in front of me, very restless, constantly moving her feet, knees, things, neck, in what looks like tardive dyskinesia. It happens 2/3 times a week continues for many hours before she can get Rest from it, she said starting or increasing doses of neurontin, have not made the episodes any worse. She can talk to us without a problem and although she looks very uncomfortable to me she says he is doing fine and this will just pass. She is on requip. And recently started on Gabapentin, we are decreasing her requip. She was on haldol many years ago she says for her depression. She says she has parkinsons and told me she is taking propranolol for it. I thinks she has not got it right. She does not know of any aggravating and relieving factors for these episodes. Wheezing 11/29/2012 08/12/2016 Last Assessment & Plan: Patient is audibly wheezing right now. She recently had asthmatic bronchitis and pneumonia, said she is prone to have it. had a course of levaquin. Steroids and bronchodilators. Schizoaffective disorder 11/15/2012 017 Overview: [facility] it according to her. Last Assessment & Plan: [facility], But they changed it according to her. Parkinson disease 11/15/2012 12/03/2017 Overview: [place], [place] I went through a lot of [facility]allos [facility]. he does not seem to think she has parkinson's. She had drug induced parkinson's like symptoms that resolved when she stopped taking the inciting medications. Last Assessment & Plan: She will send me a note from him of his latest assessment. documented as of this encounter (statuses as of 07/04/2021) [facility] History of Past illness Narrative* Problem Noted Date Resolved Date Post-operative pain 07/10/2016 08/12/2016 Hypomagnesemia 07/10/2016 07/10/2016 Full incontinence of feces 07/08/201607/10 Ankle instability 04/07/2016 08/12/2016 Posterior tibial tendonitis 04/07/201607/17 Trigger thumb of right hand 11/04/201507/17 Cramp in muscle 04/15/2015 08/12/2016 Primary insomnia 03/19/2015 08/12/2016 Last Assessment & Plan: Struggling with insomnia Pain in left knee 12/03/2014 08/12/2016 Overview: Patient has left knee pain , that got better with PT. Last Assessment & Plan: She is going for PT and now she feels better. significantly Weakness of left leg 11/04/2014 08/12/2016 Pain in joint, lower leg 02/19/2014 017 Tingling in extremities 10/11/2013 10/07/19 17 Overview: She is having tingling in her left thigh, that comes and goes. Going on for a couple months , but since the last 2 weeks she has been having it all the time. Last Assessment & Plan: She is having tingling in her left thigh, that comes and goes. Going on for a couple months , but since the last 2 weeks she has been having it all the time. Urgency of urination 03/09/2013 07/11/2013 Frequency of urination 03/09/2013 4 Last Assessment & Plan: Urinary incontinence is being followed and evaluated by Dr Vazquez, she is having some urodynamic studies done. i reveiwed Dr. Fernandez notes. Obesity 03/09/2013 10/06/2016 Overview: 04/25/13 BMI 48.43. Normal BMI 18.5-25, normal weight range of 112-150 pounds in a person 5 feet 5 inches tall. Last Assessment & Plan: Gaining weight since she has not been able to exercise due to her surgeries. Nausea 02/09/2013 08/12/2016 Last Assessment & Plan: Patient has some nausea recently, is on macrobid for suspected UTI, when she came in last week. Since all her tests are negative including urine culture.i am discontinuing that SOB (shortness of breath) on exertion 02/09/2013 08/12/2016 Last Assessment & Plan: The patient has SOB which was extensively evaluated, initially it was thought to be from asthma. After seeing the family consumer science teacher and all evaluation complete it was thought to from restriction of the lungs from her weight. She also has sleep apnea, needs oxygen bled into the cpap machine, as the desaturations at night time does not normalize with out bleeding oxygen in. Today we checked her oxygen , the results are below. resting with o2 at 3liters- 91% resting room air o2 sat- 90% activity room air o2 sat- 84% activity with nc at 3liters- 91% Urinary incontinence 02/09/2013 03/28/2013 Last Assessment & Plan: Patient is having the incontinence for a month. She is on vesicare but it does not help her. Prior to this she had some leakage and dribbling but it was never this bad. She has been having a lot of accidents in the last month. She is indeed a very complex patient and i would like to refer her to a Urologist so he can evaluate her bladder dynamics. Schizophrenia 01/04/2013 02/06/2014 Overview: Dr Delaney is her psychologist . Has not seen him for a year. Patient says that the diagnosis of schizophrenia was taken off the diagnosis. Last Assessment & Plan: Patients notes indicates, that she has schizophrenia. Has been on Thorazine, haldol and invega. These drugs gave her tardive dyskinesia. She was put on tetrabenzine for it, worked miracles with her and then she got some parkinson's like features. She couldn't even feed herself. She tried the medication twice. Currently she is not on any psychotic medications. Movement disorder 12/28/2012 08/12/2016 Last Assessment & Plan: Patient is here today, sitting in front of me, very restless, constantly moving her feet, knees, things, neck, in what looks like tardive dyskinesia. It happens 2/3 times a week continues for many hours before she can get Rest from it, she said starting or increasing doses of neurontin, have not made the episodes any worse. She can talk to us without a problem and although she looks very uncomfortable to me she says he is doing fine and this will just pass. She is on requip. And recently started on Gabapentin, we are decreasing her requip. She was on haldol many years ago she says for her depression. She says she has parkinsons and told me she is taking propranolol for it. I thinks she has not got it right. She does not know of any aggravating and relieving factors for these episodes. Wheezing 11/29/2012 08/12/2016 Last Assessment & Plan: Patient is audibly wheezing right now. She recently had asthmatic bronchitis and pneumonia, said she is prone to have it. had a course of levaquin. Steroids and bronchodilators. Schizoaffective disorder 11/15/2012 017 Overview: [facility] But [facility] it according to her. Last Assessment & Plan: [facility], But they changed it according to her. Parkinson disease 11/15/2012 12/03/2017 Overview: [place], [place] I went through a lot of [facility]allos [facility]. he does not seem to think she has parkinson's. She had drug induced parkinson's like symptoms that resolved when she stopped taking the inciting medications. Last Assessment & Plan: She will send me a note from him of his latest assessment. documented as of this encounter (statuses as of 07/21/2021) [facility] History of Past illness Narrative* Problem Noted Date Resolved Date Post-operative pain 07/10/2016 08/12/2016 Hypomagnesemia 07/10/2016 07/10/2016 Full incontinence of feces 07/08/201607/10 Ankle instability 04/07/2016 08/12/2016 Posterior tibial tendonitis 04/07/201607/17 Trigger thumb of right hand 11/04/201507/17 Cramp in muscle 04/15/2015 08/12/2016 Primary insomnia 03/19/2015 08/12/2016 Last Assessment & Plan: Struggling with insomnia Pain in left knee 12/03/2014 08/12/2016 Overview: Patient has left knee pain , that got better with PT. Last Assessment & Plan: She is going for PT and now she feels better. significantly Weakness of left leg 11/04/2014 08/12/2016 Pain in joint, lower leg 02/19/2014 017 Tingling in extremities 10/11/2013 10/07/19 17 Overview: She is having tingling in her left thigh, that comes and goes. Going on for a couple months , but since the last 2 weeks she has been having it all the time. Last Assessment & Plan: She is having tingling in her left thigh, that comes and goes. Going on for a couple months , but since the last 2 weeks she has been having it all the time. Urgency of urination 03/09/2013 07/11/2013 Frequency of urination 03/09/2013 4 Last Assessment & Plan: Urinary incontinence is being followed and evaluated by Dr Vazquez, she is having some urodynamic studies done. i reveiwed Dr. Fernandez notes. Obesity 03/09/2013 10/06/2016 Overview: 04/25/13 BMI 48.43. Normal BMI 18.5-25, normal weight range of 112-150 pounds in a person 5 feet 5 inches tall. Last Assessment & Plan: Gaining weight since she has not been able to exercise due to her surgeries. Nausea 02/09/2013 08/12/2016 Last Assessment & Plan: Patient has some nausea recently, is on macrobid for suspected UTI, when she came in last week. Since all her tests are negative including urine culture.i am discontinuing that SOB (shortness of breath) on exertion 02/09/2013 08/12/2016 Last Assessment & Plan: The patient has SOB which was extensively evaluated, initially it was thought to be from asthma. After seeing the family consumer science teacher and all evaluation complete it was thought to from restriction of the lungs from her weight. She also has sleep apnea, needs oxygen bled into the cpap machine, as the desaturations at night time does not normalize with out bleeding oxygen in. Today we checked her oxygen , the results are below. resting with o2 at 3liters- 91% resting room air o2 sat- 90% activity room air o2 sat- 84% activity with nc at 3liters- 91% Urinary incontinence 02/09/2013 03/28/2013 Last Assessment & Plan: Patient is having the incontinence for a month. She is on vesicare but it does not help her. Prior to this she had some leakage and dribbling but it was never this bad. She has been having a lot of accidents in the last month. She is indeed a very complex patient and i would like to refer her to a Urologist so he can evaluate her bladder dynamics. Schizophrenia 01/04/2013 02/06/2014 Overview: Dr Delaney is her psychologist . Has not seen him for a year. Patient says that the diagnosis of schizophrenia was taken off the diagnosis. Last Assessment & Plan: Patients notes indicates, that she has schizophrenia. Has been on Thorazine, haldol and invega. These drugs gave her tardive dyskinesia. She was put on tetrabenzine for it, worked miracles with her and then she got some parkinson's like features. She couldn't even feed herself. She tried the medication twice. Currently she is not on any psychotic medications. Movement disorder 12/28/2012 08/12/2016 Last Assessment & Plan: Patient is here today, sitting in front of me, very restless, constantly moving her feet, knees, things, neck, in what looks like tardive dyskinesia. It happens 2/3 times a week continues for many hours before she can get Rest from it, she said starting or increasing doses of neurontin, have not made the episodes any worse. She can talk to us without a problem and although she looks very uncomfortable to me she says he is doing fine and this will just pass. She is on requip. And recently started on Gabapentin, we are decreasing her requip. She was on haldol many years ago she says for her depression. She says she has parkinsons and told me she is taking propranolol for it. I thinks she has not got it right. She does not know of any aggravating and relieving factors for these episodes. Wheezing 11/29/2012 08/12/2016 Last Assessment & Plan: Patient is audibly wheezing right now. She recently had asthmatic bronchitis and pneumonia, said she is prone to have it. had a course of levaquin. Steroids and bronchodilators. Schizoaffective disorder 11/15/2012 017 Overview: [facility] But [facility] it according to her. Last Assessment & Plan: [facility], But they changed it according to her. Parkinson disease 11/15/2012 12/03/2017 Overview: Rad[place], [place] I went through a lot of DR. Cevallos [facility]. he does not seem to think she has parkinson's. She had drug induced parkinson's like symptoms that resolved when she stopped taking the inciting medications. Last Assessment & Plan: She will send me a note from him of his latest assessment. documented as of this encounter (statuses as of 08/01/2021) [facility]05-[facility]2017 History of Past illness Narrative* Problem Noted Date Resolved Date Post-operative pain 07/10/2016 08/12/2016 Hypomagnesemia 07/10/2016 07/10/2016 Full incontinence of feces 07/08/201607/10 Ankle instability 04/07/2016 08/12/2016 Posterior tibial tendonitis 04/07/201607/17 Trigger thumb of right hand 11/04/201507/17 Cramp in muscle 04/15/2015 08/12/2016 Primary insomnia 03/19/2015 08/12/2016 Last Assessment & Plan: Struggling with insomnia Pain in left knee 12/03/2014 08/12/2016 Overview: Patient has left knee pain , that got better with PT. Last Assessment & Plan: She is going for PT and now she feels better. significantly Weakness of left leg 11/04/2014 08/12/2016 Pain in joint, lower leg 02/19/2014 017 Tingling in extremities 10/11/2013 10/07/19 17 Overview: She is having tingling in her left thigh, that comes and goes. Going on for a couple months , but since the last 2 weeks she has been having it all the time. Last Assessment & Plan: She is having tingling in her left thigh, that comes and goes. Going on for a couple months , but since the last 2 weeks she has been having it all the time. Urgency of urination 03/09/2013 07/11/2013 Frequency of urination 03/09/2013 4 Last Assessment & Plan: Urinary incontinence is being followed and evaluated by Dr Vazquez, she is having some urodynamic studies done. i reveiwed Dr. Fernandez notes. Obesity 03/09/2013 10/06/2016 Overview: 04/25/13 BMI 48.43. Normal BMI 18.5-25, normal weight range of 112-150 pounds in a person 5 feet 5 inches tall. Last Assessment & Plan: Gaining weight since she has not been able to exercise due to her surgeries. Nausea 02/09/2013 08/12/2016 Last Assessment & Plan: Patient has some nausea recently, is on macrobid for suspected UTI, when she came in last week. Since all her tests are negative including urine culture.i am discontinuing that SOB (shortness of breath) on exertion 02/09/2013 08/12/2016 Last Assessment & Plan: The patient has SOB which was extensively evaluated, initially it was thought to be from asthma. After seeing the family consumer science teacher and all evaluation complete it was thought to from restriction of the lungs from her weight. She also has sleep apnea, needs oxygen bled into the cpap machine, as the desaturations at night time does not normalize with out bleeding oxygen in. Today we checked her oxygen , the results are below. resting with o2 at 3liters- 91% resting room air o2 sat- 90% activity room air o2 sat- 84% activity with nc at 3liters- 91% Urinary incontinence 02/09/2013 03/28/2013 Last Assessment & Plan: Patient is having the incontinence for a month. She is on vesicare but it does not help her. Prior to this she had some leakage and dribbling but it was never this bad. She has been having a lot of accidents in the last month. She is indeed a very complex patient and i would like to refer her to a Urologist so he can evaluate her bladder dynamics. Schizophrenia 01/04/2013 02/06/2014 Overview: Dr Delaney is her psychologist . Has not seen him for a year. Patient says that the diagnosis of schizophrenia was taken off the diagnosis. Last Assessment & Plan: Patients notes indicates, that she has schizophrenia. Has been on Thorazine, haldol and invega. These drugs gave her tardive dyskinesia. She was put on tetrabenzine for it, worked miracles with her and then she got some parkinson's like features. She couldn't even feed herself. She tried the medication twice. Currently she is not on any psychotic medications. Movement disorder 12/28/2012 08/12/2016 Last Assessment & Plan: Patient is here today, sitting in front of me, very restless, constantly moving her feet, knees, things, neck, in what looks like tardive dyskinesia. It happens 2/3 times a week continues for many hours before she can get Rest from it, she said starting or increasing doses of neurontin, have not made the episodes any worse. She can talk to us without a problem and although she looks very uncomfortable to me she says he is doing fine and this will just pass. She is on requip. And recently started on Gabapentin, we are decreasing her requip. She was on haldol many years ago she says for her depression. She says she has parkinsons and told me she is taking propranolol for it. I thinks she has not got it right. She does not know of any aggravating and relieving factors for these episodes. Wheezing 11/29/2012 08/12/2016 Last Assessment & Plan: Patient is audibly wheezing right now. She recently had asthmatic bronchitis and pneumonia, said she is prone to have it. had a course of levaquin. Steroids and bronchodilators. Schizoaffective disorder 11/15/2012 017 Overview: [facility], But [facility] it according to her. Last Assessment & Plan: [facility], But they changed it according to her. Parkinson disease 11/15/2012 12/03/2017 Overview: Radha [place], [place] I went through a lot of DR. Cevallos notes from [facility]. he does not seem to think she has parkinson's. She had drug induced parkinson's like symptoms that resolved when she stopped taking the inciting medications. Last Assessment & Plan: She will send me a note from him of his latest assessment. documented as of this encounter (statuses as of 08/06/2021) [facility]05[facility]2017 History of Past illness Narrative* Problem Noted Date Resolved Date Post-operative pain 07/10/2016 08/12/2016 Hypomagnesemia 07/10/2016 07/10/2016 Full incontinence of feces 07/08/201607/10 Ankle instability 04/07/2016 08/12/2016 Posterior tibial tendonitis 04/07/201607/17 Trigger thumb of right hand 11/04/201507/17 Cramp in muscle 04/15/2015 08/12/2016 Primary insomnia 03/19/2015 08/12/2016 Last Assessment & Plan: Struggling with insomnia Pain in left knee 12/03/2014 08/12/2016 Overview: Patient has left knee pain , that got better with PT. Last Assessment & Plan: She is going for PT and now she feels better. significantly Weakness of left leg 11/04/2014 08/12/2016 Pain in joint, lower leg 02/19/2014 017 Tingling in extremities 10/11/2013 10/07/19 17 Overview: She is having tingling in her left thigh, that comes and goes. Going on for a couple months , but since the last 2 weeks she has been having it all the time. Last Assessment & Plan: She is having tingling in her left thigh, that comes and goes. Going on for a couple months , but since the last 2 weeks she has been having it all the time. Urgency of urination 03/09/2013 07/11/2013 Frequency of urination 03/09/2013 4 Last Assessment & Plan: Urinary incontinence is being followed and evaluated by Dr Vazquez, she is having some urodynamic studies done. i reveiwed Dr. Fernandez notes. Obesity 03/09/2013 10/06/2016 Overview: 04/25/13 BMI 48.43. Normal BMI 18.5-25, normal weight range of 112-150 pounds in a person 5 feet 5 inches tall. Last Assessment & Plan: Gaining weight since she has not been able to exercise due to her surgeries. Nausea 02/09/2013 08/12/2016 Last Assessment & Plan: Patient has some nausea recently, is on macrobid for suspected UTI, when she came in last week. Since all her tests are negative including urine culture.i am discontinuing that SOB (shortness of breath) on exertion 02/09/2013 08/12/2016 Last Assessment & Plan: The patient has SOB which was extensively evaluated, initially it was thought to be from asthma. After seeing the family consumer science teacher and all evaluation complete it was thought to from restriction of the lungs from her weight. She also has sleep apnea, needs oxygen bled into the cpap machine, as the desaturations at night time does not normalize with out bleeding oxygen in. Today we checked her oxygen , the results are below. resting with o2 at 3liters- 91% resting room air o2 sat- 90% activity room air o2 sat- 84% activity with nc at 3liters- 91% Urinary incontinence 02/09/2013 03/28/2013 Last Assessment & Plan: Patient is having the incontinence for a month. She is on vesicare but it does not help her. Prior to this she had some leakage and dribbling but it was never this bad. She has been having a lot of accidents in the last month. She is indeed a very complex patient and i would like to refer her to a Urologist so he can evaluate her bladder dynamics. Schizophrenia 01/04/2013 02/06/2014 Overview: Dr Delaney is her psychologist . Has not seen him for a year. Patient says that the diagnosis of schizophrenia was taken off the diagnosis. Last Assessment & Plan: Patients notes indicates, that she has schizophrenia. Has been on Thorazine, haldol and invega. These drugs gave her tardive dyskinesia. She was put on tetrabenzine for it, worked miracles with her and then she got some parkinson's like features. She couldn't even feed herself. She tried the medication twice. Currently she is not on any psychotic medications. Movement disorder 12/28/2012 08/12/2016 Last Assessment & Plan: Patient is here today, sitting in front of me, very restless, constantly moving her feet, knees, things, neck, in what looks like tardive dyskinesia. It happens 2/3 times a week continues for many hours before she can get Rest from it, she said starting or increasing doses of neurontin, have not made the episodes any worse. She can talk to us without a problem and although she looks very uncomfortable to me she says he is doing fine and this will just pass. She is on requip. And recently started on Gabapentin, we are decreasing her requip. She was on haldol many years ago she says for her depression. She says she has parkinsons and told me she is taking propranolol for it. I thinks she has not got it right. She does not know of any aggravating and relieving factors for these episodes. Wheezing 11/29/2012 08/12/2016 Last Assessment & Plan: Patient is audibly wheezing right now. She recently had asthmatic bronchitis and pneumonia, said she is prone to have it. had a course of levaquin. Steroids and bronchodilators. Schizoaffective disorder 11/15/2012 017 Overview: [facility] But [facility] it according to her. Last Assessment & Plan: [facility], But they changed it according to her. Parkinson disease 11/15/2012 12/03/2017 Overview: [place], [place] I went through a lot of [facility]allos [facility]. he does not seem to think she has parkinson's. She had drug induced parkinson's like symptoms that resolved when she stopped taking the inciting medications. Last Assessment & Plan: She will send me a note from him of his latest assessment. documented as of this encounter (statuses as of 08/08/2021) [facility]2017 History of Past illness Narrative* Problem Noted Date Resolved Date Post-operative pain 07/10/2016 08/12/2016 Hypomagnesemia 07/10/2016 07/10/2016 Full incontinence of feces 07/08/201607/10 Ankle instability 04/07/2016 08/12/2016 Posterior tibial tendonitis 04/07/201607/17 Trigger thumb of right hand 11/04/201507/17 Cramp in muscle 04/15/2015 08/12/2016 Primary insomnia 03/19/2015 08/12/2016 Last Assessment & Plan: Struggling with insomnia Pain in left knee 12/03/2014 08/12/2016 Overview: Patient has left knee pain , that got better with PT. Last Assessment & Plan: She is going for PT and now she feels better. significantly Weakness of left leg 11/04/2014 08/12/2016 Pain in joint, lower leg 02/19/2014 017 Tingling in extremities 10/11/2013 10/07/19 17 Overview: She is having tingling in her left thigh, that comes and goes. Going on for a couple months , but since the last 2 weeks she has been having it all the time. Last Assessment & Plan: She is having tingling in her left thigh, that comes and goes. Going on for a couple months , but since the last 2 weeks she has been having it all the time. Urgency of urination 03/09/2013 07/11/2013 Frequency of urination 03/09/2013 4 Last Assessment & Plan: Urinary incontinence is being followed and evaluated by Dr Vazquez, she is having some urodynamic studies done. i reveiwed Dr. Fernandez notes. Obesity 03/09/2013 10/06/2016 Overview: 04/25/13 BMI 48.43. Normal BMI 18.5-25, normal weight range of 112-150 pounds in a person 5 feet 5 inches tall. Last Assessment & Plan: Gaining weight since she has not been able to exercise due to her surgeries. Nausea 02/09/2013 08/12/2016 Last Assessment & Plan: Patient has some nausea recently, is on macrobid for suspected UTI, when she came in last week. Since all her tests are negative including urine culture.i am discontinuing that SOB (shortness of breath) on exertion 02/09/2013 08/12/2016 Last Assessment & Plan: The patient has SOB which was extensively evaluated, initially it was thought to be from asthma. After seeing the family consumer science teacher and all evaluation complete it was thought to from restriction of the lungs from her weight. She also has sleep apnea, needs oxygen bled into the cpap machine, as the desaturations at night time does not normalize with out bleeding oxygen in. Today we checked her oxygen , the results are below. resting with o2 at 3liters- 91% resting room air o2 sat- 90% activity room air o2 sat- 84% activity with nc at 3liters- 91% Urinary incontinence 02/09/2013 03/28/2013 Last Assessment & Plan: Patient is having the incontinence for a month. She is on vesicare but it does not help her. Prior to this she had some leakage and dribbling but it was never this bad. She has been having a lot of accidents in the last month. She is indeed a very complex patient and i would like to refer her to a Urologist so he can evaluate her bladder dynamics. Schizophrenia 01/04/2013 02/06/2014 Overview: Dr Delaney is her psychologist . Has not seen him for a year. Patient says that the diagnosis of schizophrenia was taken off the diagnosis. Last Assessment & Plan: Patients notes indicates, that she has schizophrenia. Has been on Thorazine, haldol and invega. These drugs gave her tardive dyskinesia. She was put on tetrabenzine for it, worked miracles with her and then she got some parkinson's like features. She couldn't even feed herself. She tried the medication twice. Currently she is not on any psychotic medications. Movement disorder 12/28/2012 08/12/2016 Last Assessment & Plan: Patient is here today, sitting in front of me, very restless, constantly moving her feet, knees, things, neck, in what looks like tardive dyskinesia. It happens 2/3 times a week continues for many hours before she can get Rest from it, she said starting or increasing doses of neurontin, have not made the episodes any worse. She can talk to us without a problem and although she looks very uncomfortable to me she says he is doing fine and this will just pass. She is on requip. And recently started on Gabapentin, we are decreasing her requip. She was on haldol many years ago she says for her depression. She says she has parkinsons and told me she is taking propranolol for it. I thinks she has not got it right. She does not know of any aggravating and relieving factors for these episodes. Wheezing 11/29/2012 08/12/2016 Last Assessment & Plan: Patient is audibly wheezing right now. She recently had asthmatic bronchitis and pneumonia, said she is prone to have it. had a course of levaquin. Steroids and bronchodilators. Schizoaffective disorder 11/15/2012 017 Overview: [facility] But [facility] it according to her. Last Assessment & Plan: [facility], But they changed it according to her. Parkinson disease 11/15/2012 12/03/2017 Overview: [place], [place] I went through a lot of [facility]allos [facility]. he does not seem to think she has parkinson's. She had drug induced parkinson's like symptoms that resolved when she stopped taking the inciting medications. Last Assessment & Plan: She will send me a note from him of his latest assessment. documented as of this encounter (statuses as of 08/11/2021) [facility] History of Past illness Narrative* Problem Noted Date Resolved Date Post-operative pain 07/10/2016 08/12/2016 Hypomagnesemia 07/10/2016 07/10/2016 Full incontinence of feces 07/08/201607/10 Ankle instability 04/07/2016 08/12/2016 Posterior tibial tendonitis 04/07/201607/17 Trigger thumb of right hand 11/04/201507/17 Cramp in muscle 04/15/2015 08/12/2016 Primary insomnia 03/19/2015 08/12/2016 Last Assessment & Plan: Struggling with insomnia Pain in left knee 12/03/2014 08/12/2016 Overview: Patient has left knee pain , that got better with PT. Last Assessment & Plan: She is going for PT and now she feels better. significantly Weakness of left leg 11/04/2014 08/12/2016 Pain in joint, lower leg 02/19/2014 017 Tingling in extremities 10/11/2013 10/07/19 17 Overview: She is having tingling in her left thigh, that comes and goes. Going on for a couple months , but since the last 2 weeks she has been having it all the time. Last Assessment & Plan: She is having tingling in her left thigh, that comes and goes. Going on for a couple months , but since the last 2 weeks she has been having it all the time. Urgency of urination 03/09/2013 07/11/2013 Frequency of urination 03/09/2013 4 Last Assessment & Plan: Urinary incontinence is being followed and evaluated by Dr Vazquez, she is having some urodynamic studies done. i reveiwed Dr. Fernandez notes. Obesity 03/09/2013 10/06/2016 Overview: 04/25/13 BMI 48.43. Normal BMI 18.5-25, normal weight range of 112-150 pounds in a person 5 feet 5 inches tall. Last Assessment & Plan: Gaining weight since she has not been able to exercise due to her surgeries. Nausea 02/09/2013 08/12/2016 Last Assessment & Plan: Patient has some nausea recently, is on macrobid for suspected UTI, when she came in last week. Since all her tests are negative including urine culture.i am discontinuing that SOB (shortness of breath) on exertion 02/09/2013 08/12/2016 Last Assessment & Plan: The patient has SOB which was extensively evaluated, initially it was thought to be from asthma. After seeing the family consumer science teacher and all evaluation complete it was thought to from restriction of the lungs from her weight. She also has sleep apnea, needs oxygen bled into the cpap machine, as the desaturations at night time does not normalize with out bleeding oxygen in. Today we checked her oxygen , the results are below. resting with o2 at 3liters- 91% resting room air o2 sat- 90% activity room air o2 sat- 84% activity with nc at 3liters- 91% Urinary incontinence 02/09/2013 03/28/2013 Last Assessment & Plan: Patient is having the incontinence for a month. She is on vesicare but it does not help her. Prior to this she had some leakage and dribbling but it was never this bad. She has been having a lot of accidents in the last month. She is indeed a very complex patient and i would like to refer her to a Urologist so he can evaluate her bladder dynamics. Schizophrenia 01/04/2013 02/06/2014 Overview: Dr Delaney is her psychologist . Has not seen him for a year. Patient says that the diagnosis of schizophrenia was taken off the diagnosis. Last Assessment & Plan: Patients notes indicates, that she has schizophrenia. Has been on Thorazine, haldol and invega. These drugs gave her tardive dyskinesia. She was put on tetrabenzine for it, worked miracles with her and then she got some parkinson's like features. She couldn't even feed herself. She tried the medication twice. Currently she is not on any psychotic medications. Movement disorder 12/28/2012 08/12/2016 Last Assessment & Plan: Patient is here today, sitting in front of me, very restless, constantly moving her feet, knees, things, neck, in what looks like tardive dyskinesia. It happens 2/3 times a week continues for many hours before she can get Rest from it, she said starting or increasing doses of neurontin, have not made the episodes any worse. She can talk to us without a problem and although she looks very uncomfortable to me she says he is doing fine and this will just pass. She is on requip. And recently started on Gabapentin, we are decreasing her requip. She was on haldol many years ago she says for her depression. She says she has parkinsons and told me she is taking propranolol for it. I thinks she has not got it right. She does not know of any aggravating and relieving factors for these episodes. Wheezing 11/29/2012 08/12/2016 Last Assessment & Plan: Patient is audibly wheezing right now. She recently had asthmatic bronchitis and pneumonia, said she is prone to have it. had a course of levaquin. Steroids and bronchodilators. Schizoaffective disorder 11/15/2012 017 Overview: [facility] But [facility] it according to her. Last Assessment & Plan: [facility], But they changed it according to her. Parkinson disease 11/15/2012 12/03/2017 Overview: Radha [place], [place] I went through a lot of DR[facility] Cevallos [facility]. he does not seem to think she has parkinson's. She had drug induced parkinson's like symptoms that resolved when she stopped taking the inciting medications. Last Assessment & Plan: She will send me a note from him of his latest assessment. documented as of this encounter (statuses as of 08/14/2021) [facility]05-[facility]2017 History of Past illness Narrative* Problem Noted Date Resolved Date Post-operative pain 07/10/2016 08/12/2016 Hypomagnesemia 07/10/2016 07/10/2016 Full incontinence of feces 07/08/201607/10 Ankle instability 04/07/2016 08/12/2016 Posterior tibial tendonitis 04/07/201607/17 Trigger thumb of right hand 11/04/201507/17 Cramp in muscle 04/15/2015 08/12/2016 Primary insomnia 03/19/2015 08/12/2016 Last Assessment & Plan: Struggling with insomnia Pain in left knee 12/03/2014 08/12/2016 Overview: Patient has left knee pain , that got better with PT. Last Assessment & Plan: She is going for PT and now she feels better. significantly Weakness of left leg 11/04/2014 08/12/2016 Pain in joint, lower leg 02/19/2014 017 Tingling in extremities 10/11/2013 10/07/19 17 Overview: She is having tingling in her left thigh, that comes and goes. Going on for a couple months , but since the last 2 weeks she has been having it all the time. Last Assessment & Plan: She is having tingling in her left thigh, that comes and goes. Going on for a couple months , but since the last 2 weeks she has been having it all the time. Urgency of urination 03/09/2013 07/11/2013 Frequency of urination 03/09/2013 4 Last Assessment & Plan: Urinary incontinence is being followed and evaluated by Dr Vazquez, she is having some urodynamic studies done. i reveiwed Dr. Fernandez notes. Obesity 03/09/2013 10/06/2016 Overview: 04/25/13 BMI 48.43. Normal BMI 18.5-25, normal weight range of 112-150 pounds in a person 5 feet 5 inches tall. Last Assessment & Plan: Gaining weight since she has not been able to exercise due to her surgeries. Nausea 02/09/2013 08/12/2016 Last Assessment & Plan: Patient has some nausea recently, is on macrobid for suspected UTI, when she came in last week. Since all her tests are negative including urine culture.i am discontinuing that SOB (shortness of breath) on exertion 02/09/2013 08/12/2016 Last Assessment & Plan: The patient has SOB which was extensively evaluated, initially it was thought to be from asthma. After seeing the family consumer science teacher and all evaluation complete it was thought to from restriction of the lungs from her weight. She also has sleep apnea, needs oxygen bled into the cpap machine, as the desaturations at night time does not normalize with out bleeding oxygen in. Today we checked her oxygen , the results are below. resting with o2 at 3liters- 91% resting room air o2 sat- 90% activity room air o2 sat- 84% activity with nc at 3liters- 91% Urinary incontinence 02/09/2013 03/28/2013 Last Assessment & Plan: Patient is having the incontinence for a month. She is on vesicare but it does not help her. Prior to this she had some leakage and dribbling but it was never this bad. She has been having a lot of accidents in the last month. She is indeed a very complex patient and i would like to refer her to a Urologist so he can evaluate her bladder dynamics. Schizophrenia 01/04/2013 02/06/2014 Overview: Dr Delaney is her psychologist . Has not seen him for a year. Patient says that the diagnosis of schizophrenia was taken off the diagnosis. Last Assessment & Plan: Patients notes indicates, that she has schizophrenia. Has been on Thorazine, haldol and invega. These drugs gave her tardive dyskinesia. She was put on tetrabenzine for it, worked miracles with her and then she got some parkinson's like features. She couldn't even feed herself. She tried the medication twice. Currently she is not on any psychotic medications. Movement disorder 12/28/2012 08/12/2016 Last Assessment & Plan: Patient is here today, sitting in front of me, very restless, constantly moving her feet, knees, things, neck, in what looks like tardive dyskinesia. It happens 2/3 times a week continues for many hours before she can get Rest from it, she said starting or increasing doses of neurontin, have not made the episodes any worse. She can talk to us without a problem and although she looks very uncomfortable to me she says he is doing fine and this will just pass. She is on requip. And recently started on Gabapentin, we are decreasing her requip. She was on haldol many years ago she says for her depression. She says she has parkinsons and told me she is taking propranolol for it. I thinks she has not got it right. She does not know of any aggravating and relieving factors for these episodes. Wheezing 11/29/2012 08/12/2016 Last Assessment & Plan: Patient is audibly wheezing right now. She recently had asthmatic bronchitis and pneumonia, said she is prone to have it. had a course of levaquin. Steroids and bronchodilators. Schizoaffective disorder 11/15/2012 017 Overview: [facility] But [facility] it according to her. Last Assessment & Plan: [facility], But they changed it according to her. Parkinson disease 11/15/2012 12/03/2017 Overview: Radha [place], [place] I went through a lot of DR. Cevallos notes from [facility]. he does not seem to think she has parkinson's. She had drug induced parkinson's like symptoms that resolved when she stopped taking the inciting medications. Last Assessment & Plan: She will send me a note from him of his latest assessment. documented as of this encounter (statuses as of 08/29/2021) [facility]05[facility]2017 History of Past illness Narrative* Problem Noted Date Resolved Date Post-operative pain 07/10/2016 08/12/2016 Hypomagnesemia 07/10/2016 07/10/2016 Full incontinence of feces 07/08/201607/10 Ankle instability 04/07/2016 08/12/2016 Posterior tibial tendonitis 04/07/201607/17 Trigger thumb of right hand 11/04/201507/17 Cramp in muscle 04/15/2015 08/12/2016 Primary insomnia 03/19/2015 08/12/2016 Last Assessment & Plan: Struggling with insomnia Pain in left knee 12/03/2014 08/12/2016 Overview: Patient has left knee pain , that got better with PT. Last Assessment & Plan: She is going for PT and now she feels better. significantly Weakness of left leg 11/04/2014 08/12/2016 Pain in joint, lower leg 02/19/2014 017 Tingling in extremities 10/11/2013 10/07/19 17 Overview: She is having tingling in her left thigh, that comes and goes. Going on for a couple months , but since the last 2 weeks she has been having it all the time. Last Assessment & Plan: She is having tingling in her left thigh, that comes and goes. Going on for a couple months , but since the last 2 weeks she has been having it all the time. Urgency of urination 03/09/2013 07/11/2013 Frequency of urination 03/09/2013 4 Last Assessment & Plan: Urinary incontinence is being followed and evaluated by Dr Vazquez, she is having some urodynamic studies done. i reveiwed Dr. Fernandez notes. Obesity 03/09/2013 10/06/2016 Overview: 04/25/13 BMI 48.43. Normal BMI 18.5-25, normal weight range of 112-150 pounds in a person 5 feet 5 inches tall. Last Assessment & Plan: Gaining weight since she has not been able to exercise due to her surgeries. Nausea 02/09/2013 08/12/2016 Last Assessment & Plan: Patient has some nausea recently, is on macrobid for suspected UTI, when she came in last week. Since all her tests are negative including urine culture.i am discontinuing that SOB (shortness of breath) on exertion 02/09/2013 08/12/2016 Last Assessment & Plan: The patient has SOB which was extensively evaluated, initially it was thought to be from asthma. After seeing the family consumer science teacher and all evaluation complete it was thought to from restriction of the lungs from her weight. She also has sleep apnea, needs oxygen bled into the cpap machine, as the desaturations at night time does not normalize with out bleeding oxygen in. Today we checked her oxygen , the results are below. resting with o2 at 3liters- 91% resting room air o2 sat- 90% activity room air o2 sat- 84% activity with nc at 3liters- 91% Urinary incontinence 02/09/2013 03/28/2013 Last Assessment & Plan: Patient is having the incontinence for a month. She is on vesicare but it does not help her. Prior to this she had some leakage and dribbling but it was never this bad. She has been having a lot of accidents in the last month. She is indeed a very complex patient and i would like to refer her to a Urologist so he can evaluate her bladder dynamics. Schizophrenia 01/04/2013 02/06/2014 Overview: Dr Delaney is her psychologist . Has not seen him for a year. Patient says that the diagnosis of schizophrenia was taken off the diagnosis. Last Assessment & Plan: Patients notes indicates, that she has schizophrenia. Has been on Thorazine, haldol and invega. These drugs gave her tardive dyskinesia. She was put on tetrabenzine for it, worked miracles with her and then she got some parkinson's like features. She couldn't even feed herself. She tried the medication twice. Currently she is not on any psychotic medications. Movement disorder 12/28/2012 08/12/2016 Last Assessment & Plan: Patient is here today, sitting in front of me, very restless, constantly moving her feet, knees, things, neck, in what looks like tardive dyskinesia. It happens 2/3 times a week continues for many hours before she can get Rest from it, she said starting or increasing doses of neurontin, have not made the episodes any worse. She can talk to us without a problem and although she looks very uncomfortable to me she says he is doing fine and this will just pass. She is on requip. And recently started on Gabapentin, we are decreasing her requip. She was on haldol many years ago she says for her depression. She says she has parkinsons and told me she is taking propranolol for it. I thinks she has not got it right. She does not know of any aggravating and relieving factors for these episodes. Wheezing 11/29/2012 08/12/2016 Last Assessment & Plan: Patient is audibly wheezing right now. She recently had asthmatic bronchitis and pneumonia, said she is prone to have it. had a course of levaquin. Steroids and bronchodilators. Schizoaffective disorder 11/15/2012 017 Overview: [facility] But [facility] it according to her. Last Assessment & Plan: [facility], But they changed it according to her. Parkinson disease 11/15/2012 12/03/2017 Overview: Radha [place], [place] I went through a lot of [facility]allos [facility]. he does not seem to think she has parkinson's. She had drug induced parkinson's like symptoms that resolved when she stopped taking the inciting medications. Last Assessment & Plan: She will send me a note from him of his latest assessment. documented as of this encounter (statuses as of 09/08/2021) [facility]2017 History of Past illness Narrative* Problem Noted Date Resolved Date Post-operative pain 07/10/2016 08/12/2016 Hypomagnesemia 07/10/2016 07/10/2016 Full incontinence of feces 07/08/201607/10 Ankle instability 04/07/2016 08/12/2016 Posterior tibial tendonitis 04/07/201607/17 Trigger thumb of right hand 11/04/201507/17 Cramp in muscle 04/15/2015 08/12/2016 Primary insomnia 03/19/2015 08/12/2016 Last Assessment & Plan: Struggling with insomnia Pain in left knee 12/03/2014 08/12/2016 Overview: Patient has left knee pain , that got better with PT. Last Assessment & Plan: She is going for PT and now she feels better. significantly Weakness of left leg 11/04/2014 08/12/2016 Pain in joint, lower leg 02/19/2014 017 Tingling in extremities 10/11/2013 10/07/19 17 Overview: She is having tingling in her left thigh, that comes and goes. Going on for a couple months , but since the last 2 weeks she has been having it all the time. Last Assessment & Plan: She is having tingling in her left thigh, that comes and goes. Going on for a couple months , but since the last 2 weeks she has been having it all the time. Urgency of urination 03/09/2013 07/11/2013 Frequency of urination 03/09/2013 4 Last Assessment & Plan: Urinary incontinence is being followed and evaluated by Dr Vazquez, she is having some urodynamic studies done. i reveiwed Dr. Fernandez notes. Obesity 03/09/2013 10/06/2016 Overview: 04/25/13 BMI 48.43. Normal BMI 18.5-25, normal weight range of 112-150 pounds in a person 5 feet 5 inches tall. Last Assessment & Plan: Gaining weight since she has not been able to exercise due to her surgeries. Nausea 02/09/2013 08/12/2016 Last Assessment & Plan: Patient has some nausea recently, is on macrobid for suspected UTI, when she came in last week. Since all her tests are negative including urine culture.i am discontinuing that SOB (shortness of breath) on exertion 02/09/2013 08/12/2016 Last Assessment & Plan: The patient has SOB which was extensively evaluated, initially it was thought to be from asthma. After seeing the family consumer science teacher and all evaluation complete it was thought to from restriction of the lungs from her weight. She also has sleep apnea, needs oxygen bled into the cpap machine, as the desaturations at night time does not normalize with out bleeding oxygen in. Today we checked her oxygen , the results are below. resting with o2 at 3liters- 91% resting room air o2 sat- 90% activity room air o2 sat- 84% activity with nc at 3liters- 91% Urinary incontinence 02/09/2013 03/28/2013 Last Assessment & Plan: Patient is having the incontinence for a month. She is on vesicare but it does not help her. Prior to this she had some leakage and dribbling but it was never this bad. She has been having a lot of accidents in the last month. She is indeed a very complex patient and i would like to refer her to a Urologist so he can evaluate her bladder dynamics. Schizophrenia 01/04/2013 02/06/2014 Overview: Dr Delaney is her psychologist . Has not seen him for a year. Patient says that the diagnosis of schizophrenia was taken off the diagnosis. Last Assessment & Plan: Patients notes indicates, that she has schizophrenia. Has been on Thorazine, haldol and invega. These drugs gave her tardive dyskinesia. She was put on tetrabenzine for it, worked miracles with her and then she got some parkinson's like features. She couldn't even feed herself. She tried the medication twice. Currently she is not on any psychotic medications. Movement disorder 12/28/2012 08/12/2016 Last Assessment & Plan: Patient is here today, sitting in front of me, very restless, constantly moving her feet, knees, things, neck, in what looks like tardive dyskinesia. It happens 2/3 times a week continues for many hours before she can get Rest from it, she said starting or increasing doses of neurontin, have not made the episodes any worse. She can talk to us without a problem and although she looks very uncomfortable to me she says he is doing fine and this will just pass. She is on requip. And recently started on Gabapentin, we are decreasing her requip. She was on haldol many years ago she says for her depression. She says she has parkinsons and told me she is taking propranolol for it. I thinks she has not got it right. She does not know of any aggravating and relieving factors for these episodes. Wheezing 11/29/2012 08/12/2016 Last Assessment & Plan: Patient is audibly wheezing right now. She recently had asthmatic bronchitis and pneumonia, said she is prone to have it. had a course of levaquin. Steroids and bronchodilators. Schizoaffective disorder 11/15/2012 017 Overview: [facility] But [facility] it according to her. Last Assessment & Plan: [facility], But they changed it according to her. Parkinson disease 11/15/2012 12/03/2017 Overview: [place], [place] I went through a lot of [facility]allos [facility]. he does not seem to think she has parkinson's. She had drug induced parkinson's like symptoms that resolved when she stopped taking the inciting medications. Last Assessment & Plan: She will send me a note from him of his latest assessment. documented as of this encounter (statuses as of 09/09/2021) [facility] History of Past illness Narrative* Problem Noted Date Resolved Date Post-operative pain 07/10/2016 08/12/2016 Hypomagnesemia 07/10/2016 07/10/2016 Full incontinence of feces 07/08/201607/10 Ankle instability 04/07/2016 08/12/2016 Posterior tibial tendonitis 04/07/201607/17 Trigger thumb of right hand 11/04/201507/17 Cramp in muscle 04/15/2015 08/12/2016 Primary insomnia 03/19/2015 08/12/2016 Last Assessment & Plan: Struggling with insomnia Pain in left knee 12/03/2014 08/12/2016 Overview: Patient has left knee pain , that got better with PT. Last Assessment & Plan: She is going for PT and now she feels better. significantly Weakness of left leg 11/04/2014 08/12/2016 Pain in joint, lower leg 02/19/2014 017 Tingling in extremities 10/11/2013 10/07/19 17 Overview: She is having tingling in her left thigh, that comes and goes. Going on for a couple months , but since the last 2 weeks she has been having it all the time. Last Assessment & Plan: She is having tingling in her left thigh, that comes and goes. Going on for a couple months , but since the last 2 weeks she has been having it all the time. Urgency of urination 03/09/2013 07/11/2013 Frequency of urination 03/09/2013 4 Last Assessment & Plan: Urinary incontinence is being followed and evaluated by Dr Vazquez, she is having some urodynamic studies done. i reveiwed Dr. Fernandez notes. Obesity 03/09/2013 10/06/2016 Overview: 04/25/13 BMI 48.43. Normal BMI 18.5-25, normal weight range of 112-150 pounds in a person 5 feet 5 inches tall. Last Assessment & Plan: Gaining weight since she has not been able to exercise due to her surgeries. Nausea 02/09/2013 08/12/2016 Last Assessment & Plan: Patient has some nausea recently, is on macrobid for suspected UTI, when she came in last week. Since all her tests are negative including urine culture.i am discontinuing that SOB (shortness of breath) on exertion 02/09/2013 08/12/2016 Last Assessment & Plan: The patient has SOB which was extensively evaluated, initially it was thought to be from asthma. After seeing the family consumer science teacher and all evaluation complete it was thought to from restriction of the lungs from her weight. She also has sleep apnea, needs oxygen bled into the cpap machine, as the desaturations at night time does not normalize with out bleeding oxygen in. Today we checked her oxygen , the results are below. resting with o2 at 3liters- 91% resting room air o2 sat- 90% activity room air o2 sat- 84% activity with nc at 3liters- 91% Urinary incontinence 02/09/2013 03/28/2013 Last Assessment & Plan: Patient is having the incontinence for a month. She is on vesicare but it does not help her. Prior to this she had some leakage and dribbling but it was never this bad. She has been having a lot of accidents in the last month. She is indeed a very complex patient and i would like to refer her to a Urologist so he can evaluate her bladder dynamics. Schizophrenia 01/04/2013 02/06/2014 Overview: Dr Delaney is her psychologist . Has not seen him for a year. Patient says that the diagnosis of schizophrenia was taken off the diagnosis. Last Assessment & Plan: Patients notes indicates, that she has schizophrenia. Has been on Thorazine, haldol and invega. These drugs gave her tardive dyskinesia. She was put on tetrabenzine for it, worked miracles with her and then she got some parkinson's like features. She couldn't even feed herself. She tried the medication twice. Currently she is not on any psychotic medications. Movement disorder 12/28/2012 08/12/2016 Last Assessment & Plan: Patient is here today, sitting in front of me, very restless, constantly moving her feet, knees, things, neck, in what looks like tardive dyskinesia. It happens 2/3 times a week continues for many hours before she can get Rest from it, she said starting or increasing doses of neurontin, have not made the episodes any worse. She can talk to us without a problem and although she looks very uncomfortable to me she says he is doing fine and this will just pass. She is on requip. And recently started on Gabapentin, we are decreasing her requip. She was on haldol many years ago she says for her depression. She says she has parkinsons and told me she is taking propranolol for it. I thinks she has not got it right. She does not know of any aggravating and relieving factors for these episodes. Wheezing 11/29/2012 08/12/2016 Last Assessment & Plan: Patient is audibly wheezing right now. She recently had asthmatic bronchitis and pneumonia, said she is prone to have it. had a course of levaquin. Steroids and bronchodilators. Schizoaffective disorder 11/15/2012 017 Overview: [facility] But [facility] it according to her. Last Assessment & Plan: [facility], But they changed it according to her. Parkinson disease 11/15/2012 12/03/2017 Overview: [place], [place] I went through a lot of [facility]allos [facility]. he does not seem to think she has parkinson's. She had drug induced parkinson's like symptoms that resolved when she stopped taking the inciting medications. Last Assessment & Plan: She will send me a note from him of his latest assessment. documented as of this encounter (statuses as of 09/16/2021) [facility] History of Past illness Narrative* Problem Noted Date Resolved Date Post-operative pain 07/10/2016 08/12/2016 Hypomagnesemia 07/10/2016 07/10/2016 Full incontinence of feces 07/08/201607/10 Ankle instability 04/07/2016 08/12/2016 Posterior tibial tendonitis 04/07/201607/17 Trigger thumb of right hand 11/04/201507/17 Cramp in muscle 04/15/2015 08/12/2016 Primary insomnia 03/19/2015 08/12/2016 Last Assessment & Plan: Struggling with insomnia Pain in left knee 12/03/2014 08/12/2016 Overview: Patient has left knee pain , that got better with PT. Last Assessment & Plan: She is going for PT and now she feels better. significantly Weakness of left leg 11/04/2014 08/12/2016 Pain in joint, lower leg 02/19/2014 017 Tingling in extremities 10/11/2013 10/07/19 17 Overview: She is having tingling in her left thigh, that comes and goes. Going on for a couple months , but since the last 2 weeks she has been having it all the time. Last Assessment & Plan: She is having tingling in her left thigh, that comes and goes. Going on for a couple months , but since the last 2 weeks she has been having it all the time. Urgency of urination 03/09/2013 07/11/2013 Frequency of urination 03/09/2013 4 Last Assessment & Plan: Urinary incontinence is being followed and evaluated by Dr Vazquez, she is having some urodynamic studies done. i reveiwed Dr. Fernandez notes. Obesity 03/09/2013 10/06/2016 Overview: 04/25/13 BMI 48.43. Normal BMI 18.5-25, normal weight range of 112-150 pounds in a person 5 feet 5 inches tall. Last Assessment & Plan: Gaining weight since she has not been able to exercise due to her surgeries. Nausea 02/09/2013 08/12/2016 Last Assessment & Plan: Patient has some nausea recently, is on macrobid for suspected UTI, when she came in last week. Since all her tests are negative including urine culture.i am discontinuing that SOB (shortness of breath) on exertion 02/09/2013 08/12/2016 Last Assessment & Plan: The patient has SOB which was extensively evaluated, initially it was thought to be from asthma. After seeing the family consumer science teacher and all evaluation complete it was thought to from restriction of the lungs from her weight. She also has sleep apnea, needs oxygen bled into the cpap machine, as the desaturations at night time does not normalize with out bleeding oxygen in. Today we checked her oxygen , the results are below. resting with o2 at 3liters- 91% resting room air o2 sat- 90% activity room air o2 sat- 84% activity with nc at 3liters- 91% Urinary incontinence 02/09/2013 03/28/2013 Last Assessment & Plan: Patient is having the incontinence for a month. She is on vesicare but it does not help her. Prior to this she had some leakage and dribbling but it was never this bad. She has been having a lot of accidents in the last month. She is indeed a very complex patient and i would like to refer her to a Urologist so he can evaluate her bladder dynamics. Schizophrenia 01/04/2013 02/06/2014 Overview: Dr Delaney is her psychologist . Has not seen him for a year. Patient says that the diagnosis of schizophrenia was taken off the diagnosis. Last Assessment & Plan: Patients notes indicates, that she has schizophrenia. Has been on Thorazine, haldol and invega. These drugs gave her tardive dyskinesia. She was put on tetrabenzine for it, worked miracles with her and then she got some parkinson's like features. She couldn't even feed herself. She tried the medication twice. Currently she is not on any psychotic medications. Movement disorder 12/28/2012 08/12/2016 Last Assessment & Plan: Patient is here today, sitting in front of me, very restless, constantly moving her feet, knees, things, neck, in what looks like tardive dyskinesia. It happens 2/3 times a week continues for many hours before she can get Rest from it, she said starting or increasing doses of neurontin, have not made the episodes any worse. She can talk to us without a problem and although she looks very uncomfortable to me she says he is doing fine and this will just pass. She is on requip. And recently started on Gabapentin, we are decreasing her requip. She was on haldol many years ago she says for her depression. She says she has parkinsons and told me she is taking propranolol for it. I thinks she has not got it right. She does not know of any aggravating and relieving factors for these episodes. Wheezing 11/29/2012 08/12/2016 Last Assessment & Plan: Patient is audibly wheezing right now. She recently had asthmatic bronchitis and pneumonia, said she is prone to have it. had a course of levaquin. Steroids and bronchodilators. Schizoaffective disorder 11/15/2012 017 Overview: [facility] But [facility] it according to her. Last Assessment & Plan: [facility], But they changed it according to her. Parkinson disease 11/15/2012 12/03/2017 Overview: Rad[place], [place] I went through a lot of DR. Cevallos [facility]. he does not seem to think she has parkinson's. She had drug induced parkinson's like symptoms that resolved when she stopped taking the inciting medications. Last Assessment & Plan: She will send me a note from him of his latest assessment. documented as of this encounter (statuses as of 09/16/2021) [facility]05-[facility]2017 History of Past illness Narrative* Problem Noted Date Resolved Date Post-operative pain 07/10/2016 08/12/2016 Hypomagnesemia 07/10/2016 07/10/2016 Full incontinence of feces 07/08/201607/10 Ankle instability 04/07/2016 08/12/2016 Posterior tibial tendonitis 04/07/201607/17 Trigger thumb of right hand 11/04/201507/17 Cramp in muscle 04/15/2015 08/12/2016 Primary insomnia 03/19/2015 08/12/2016 Last Assessment & Plan: Struggling with insomnia Pain in left knee 12/03/2014 08/12/2016 Overview: Patient has left knee pain , that got better with PT. Last Assessment & Plan: She is going for PT and now she feels better. significantly Weakness of left leg 11/04/2014 08/12/2016 Pain in joint, lower leg 02/19/2014 017 Tingling in extremities 10/11/2013 10/07/19 17 Overview: She is having tingling in her left thigh, that comes and goes. Going on for a couple months , but since the last 2 weeks she has been having it all the time. Last Assessment & Plan: She is having tingling in her left thigh, that comes and goes. Going on for a couple months , but since the last 2 weeks she has been having it all the time. Urgency of urination 03/09/2013 07/11/2013 Frequency of urination 03/09/2013 4 Last Assessment & Plan: Urinary incontinence is being followed and evaluated by Dr Vazquez, she is having some urodynamic studies done. i reveiwed Dr. Fernandez notes. Obesity 03/09/2013 10/06/2016 Overview: 04/25/13 BMI 48.43. Normal BMI 18.5-25, normal weight range of 112-150 pounds in a person 5 feet 5 inches tall. Last Assessment & Plan: Gaining weight since she has not been able to exercise due to her surgeries. Nausea 02/09/2013 08/12/2016 Last Assessment & Plan: Patient has some nausea recently, is on macrobid for suspected UTI, when she came in last week. Since all her tests are negative including urine culture.i am discontinuing that SOB (shortness of breath) on exertion 02/09/2013 08/12/2016 Last Assessment & Plan: The patient has SOB which was extensively evaluated, initially it was thought to be from asthma. After seeing the family consumer science teacher and all evaluation complete it was thought to from restriction of the lungs from her weight. She also has sleep apnea, needs oxygen bled into the cpap machine, as the desaturations at night time does not normalize with out bleeding oxygen in. Today we checked her oxygen , the results are below. resting with o2 at 3liters- 91% resting room air o2 sat- 90% activity room air o2 sat- 84% activity with nc at 3liters- 91% Urinary incontinence 02/09/2013 03/28/2013 Last Assessment & Plan: Patient is having the incontinence for a month. She is on vesicare but it does not help her. Prior to this she had some leakage and dribbling but it was never this bad. She has been having a lot of accidents in the last month. She is indeed a very complex patient and i would like to refer her to a Urologist so he can evaluate her bladder dynamics. Schizophrenia 01/04/2013 02/06/2014 Overview: Dr Delaney is her psychologist . Has not seen him for a year. Patient says that the diagnosis of schizophrenia was taken off the diagnosis. Last Assessment & Plan: Patients notes indicates, that she has schizophrenia. Has been on Thorazine, haldol and invega. These drugs gave her tardive dyskinesia. She was put on tetrabenzine for it, worked miracles with her and then she got some parkinson's like features. She couldn't even feed herself. She tried the medication twice. Currently she is not on any psychotic medications. Movement disorder 12/28/2012 08/12/2016 Last Assessment & Plan: Patient is here today, sitting in front of me, very restless, constantly moving her feet, knees, things, neck, in what looks like tardive dyskinesia. It happens 2/3 times a week continues for many hours before she can get Rest from it, she said starting or increasing doses of neurontin, have not made the episodes any worse. She can talk to us without a problem and although she looks very uncomfortable to me she says he is doing fine and this will just pass. She is on requip. And recently started on Gabapentin, we are decreasing her requip. She was on haldol many years ago she says for her depression. She says she has parkinsons and told me she is taking propranolol for it. I thinks she has not got it right. She does not know of any aggravating and relieving factors for these episodes. Wheezing 11/29/2012 08/12/2016 Last Assessment & Plan: Patient is audibly wheezing right now. She recently had asthmatic bronchitis and pneumonia, said she is prone to have it. had a course of levaquin. Steroids and bronchodilators. Schizoaffective disorder 11/15/2012 017 Overview: [facility], But [facility] it according to her. Last Assessment & Plan: [facility], But they changed it according to her. Parkinson disease 11/15/2012 12/03/2017 Overview: [place]ha [place], [place] I went through a lot of DR. Cevallos notes from [facility]. he does not seem to think she has parkinson's. She had drug induced parkinson's like symptoms that resolved when she stopped taking the inciting medications. Last Assessment & Plan: She will send me a note from him of his latest assessment. documented as of this encounter (statuses as of 09/24/2021) [facility]05[facility]2017 History of Past illness Narrative* Problem Noted Date Resolved Date Post-operative pain 07/10/2016 08/12/2016 Hypomagnesemia 07/10/2016 07/10/2016 Full incontinence of feces 07/08/201607/10 Ankle instability 04/07/2016 08/12/2016 Posterior tibial tendonitis 04/07/201607/17 Trigger thumb of right hand 11/04/201507/17 Cramp in muscle 04/15/2015 08/12/2016 Primary insomnia 03/19/2015 08/12/2016 Last Assessment & Plan: Struggling with insomnia Pain in left knee 12/03/2014 08/12/2016 Overview: Patient has left knee pain , that got better with PT. Last Assessment & Plan: She is going for PT and now she feels better. significantly Weakness of left leg 11/04/2014 08/12/2016 Pain in joint, lower leg 02/19/2014 017 Tingling in extremities 10/11/2013 10/07/19 17 Overview: She is having tingling in her left thigh, that comes and goes. Going on for a couple months , but since the last 2 weeks she has been having it all the time. Last Assessment & Plan: She is having tingling in her left thigh, that comes and goes. Going on for a couple months , but since the last 2 weeks she has been having it all the time. Urgency of urination 03/09/2013 07/11/2013 Frequency of urination 03/09/2013 4 Last Assessment & Plan: Urinary incontinence is being followed and evaluated by Dr Vazquez, she is having some urodynamic studies done. i reveiwed Dr. Fernandez notes. Obesity 03/09/2013 10/06/2016 Overview: 04/25/13 BMI 48.43. Normal BMI 18.5-25, normal weight range of 112-150 pounds in a person 5 feet 5 inches tall. Last Assessment & Plan: Gaining weight since she has not been able to exercise due to her surgeries. Nausea 02/09/2013 08/12/2016 Last Assessment & Plan: Patient has some nausea recently, is on macrobid for suspected UTI, when she came in last week. Since all her tests are negative including urine culture.i am discontinuing that SOB (shortness of breath) on exertion 02/09/2013 08/12/2016 Last Assessment & Plan: The patient has SOB which was extensively evaluated, initially it was thought to be from asthma. After seeing the family consumer science teacher and all evaluation complete it was thought to from restriction of the lungs from her weight. She also has sleep apnea, needs oxygen bled into the cpap machine, as the desaturations at night time does not normalize with out bleeding oxygen in. Today we checked her oxygen , the results are below. resting with o2 at 3liters- 91% resting room air o2 sat- 90% activity room air o2 sat- 84% activity with nc at 3liters- 91% Urinary incontinence 02/09/2013 03/28/2013 Last Assessment & Plan: Patient is having the incontinence for a month. She is on vesicare but it does not help her. Prior to this she had some leakage and dribbling but it was never this bad. She has been having a lot of accidents in the last month. She is indeed a very complex patient and i would like to refer her to a Urologist so he can evaluate her bladder dynamics. Schizophrenia 01/04/2013 02/06/2014 Overview: Dr Delaney is her psychologist . Has not seen him for a year. Patient says that the diagnosis of schizophrenia was taken off the diagnosis. Last Assessment & Plan: Patients notes indicates, that she has schizophrenia. Has been on Thorazine, haldol and invega. These drugs gave her tardive dyskinesia. She was put on tetrabenzine for it, worked miracles with her and then she got some parkinson's like features. She couldn't even feed herself. She tried the medication twice. Currently she is not on any psychotic medications. Movement disorder 12/28/2012 08/12/2016 Last Assessment & Plan: Patient is here today, sitting in front of me, very restless, constantly moving her feet, knees, things, neck, in what looks like tardive dyskinesia. It happens 2/3 times a week continues for many hours before she can get Rest from it, she said starting or increasing doses of neurontin, have not made the episodes any worse. She can talk to us without a problem and although she looks very uncomfortable to me she says he is doing fine and this will just pass. She is on requip. And recently started on Gabapentin, we are decreasing her requip. She was on haldol many years ago she says for her depression. She says she has parkinsons and told me she is taking propranolol for it. I thinks she has not got it right. She does not know of any aggravating and relieving factors for these episodes. Wheezing 11/29/2012 08/12/2016 Last Assessment & Plan: Patient is audibly wheezing right now. She recently had asthmatic bronchitis and pneumonia, said she is prone to have it. had a course of levaquin. Steroids and bronchodilators. Schizoaffective disorder 11/15/2012 017 Overview: [facility] But [facility] it according to her. Last Assessment & Plan: [facility], But they changed it according to her. Parkinson disease 11/15/2012 12/03/2017 Overview: [place], [place] I went through a lot of [facility]allos [facility]. he does not seem to think she has parkinson's. She had drug induced parkinson's like symptoms that resolved when she stopped taking the inciting medications. Last Assessment & Plan: She will send me a note from him of his latest assessment. documented as of this encounter (statuses as of 09/26/2021) [facility]2017 History of Past illness Narrative* Problem Noted Date Resolved Date Post-operative pain 07/10/2016 08/12/2016 Hypomagnesemia 07/10/2016 07/10/2016 Full incontinence of feces 07/08/201607/10 Ankle instability 04/07/2016 08/12/2016 Posterior tibial tendonitis 04/07/201607/17 Trigger thumb of right hand 11/04/201507/17 Cramp in muscle 04/15/2015 08/12/2016 Primary insomnia 03/19/2015 08/12/2016 Last Assessment & Plan: Struggling with insomnia Pain in left knee 12/03/2014 08/12/2016 Overview: Patient has left knee pain , that got better with PT. Last Assessment & Plan: She is going for PT and now she feels better. significantly Weakness of left leg 11/04/2014 08/12/2016 Pain in joint, lower leg 02/19/2014 017 Tingling in extremities 10/11/2013 10/07/19 17 Overview: She is having tingling in her left thigh, that comes and goes. Going on for a couple months , but since the last 2 weeks she has been having it all the time. Last Assessment & Plan: She is having tingling in her left thigh, that comes and goes. Going on for a couple months , but since the last 2 weeks she has been having it all the time. Urgency of urination 03/09/2013 07/11/2013 Frequency of urination 03/09/2013 4 Last Assessment & Plan: Urinary incontinence is being followed and evaluated by Dr Vazquez, she is having some urodynamic studies done. i reveiwed Dr. Fernandez notes. Obesity 03/09/2013 10/06/2016 Overview: 04/25/13 BMI 48.43. Normal BMI 18.5-25, normal weight range of 112-150 pounds in a person 5 feet 5 inches tall. Last Assessment & Plan: Gaining weight since she has not been able to exercise due to her surgeries. Nausea 02/09/2013 08/12/2016 Last Assessment & Plan: Patient has some nausea recently, is on macrobid for suspected UTI, when she came in last week. Since all her tests are negative including urine culture.i am discontinuing that SOB (shortness of breath) on exertion 02/09/2013 08/12/2016 Last Assessment & Plan: The patient has SOB which was extensively evaluated, initially it was thought to be from asthma. After seeing the family consumer science teacher and all evaluation complete it was thought to from restriction of the lungs from her weight. She also has sleep apnea, needs oxygen bled into the cpap machine, as the desaturations at night time does not normalize with out bleeding oxygen in. Today we checked her oxygen , the results are below. resting with o2 at 3liters- 91% resting room air o2 sat- 90% activity room air o2 sat- 84% activity with nc at 3liters- 91% Urinary incontinence 02/09/2013 03/28/2013 Last Assessment & Plan: Patient is having the incontinence for a month. She is on vesicare but it does not help her. Prior to this she had some leakage and dribbling but it was never this bad. She has been having a lot of accidents in the last month. She is indeed a very complex patient and i would like to refer her to a Urologist so he can evaluate her bladder dynamics. Schizophrenia 01/04/2013 02/06/2014 Overview: Dr Delaney is her psychologist . Has not seen him for a year. Patient says that the diagnosis of schizophrenia was taken off the diagnosis. Last Assessment & Plan: Patients notes indicates, that she has schizophrenia. Has been on Thorazine, haldol and invega. These drugs gave her tardive dyskinesia. She was put on tetrabenzine for it, worked miracles with her and then she got some parkinson's like features. She couldn't even feed herself. She tried the medication twice. Currently she is not on any psychotic medications. Movement disorder 12/28/2012 08/12/2016 Last Assessment & Plan: Patient is here today, sitting in front of me, very restless, constantly moving her feet, knees, things, neck, in what looks like tardive dyskinesia. It happens 2/3 times a week continues for many hours before she can get Rest from it, she said starting or increasing doses of neurontin, have not made the episodes any worse. She can talk to us without a problem and although she looks very uncomfortable to me she says he is doing fine and this will just pass. She is on requip. And recently started on Gabapentin, we are decreasing her requip. She was on haldol many years ago she says for her depression. She says she has parkinsons and told me she is taking propranolol for it. I thinks she has not got it right. She does not know of any aggravating and relieving factors for these episodes. Wheezing 11/29/2012 08/12/2016 Last Assessment & Plan: Patient is audibly wheezing right now. She recently had asthmatic bronchitis and pneumonia, said she is prone to have it. had a course of levaquin. Steroids and bronchodilators. Schizoaffective disorder 11/15/2012 017 Overview: [facility] But [facility] it according to her. Last Assessment & Plan: [facility], But they changed it according to her. Parkinson disease 11/15/2012 12/03/2017 Overview: [place], [place] I went through a lot of [facility]allos [facility]. he does not seem to think she has parkinson's. She had drug induced parkinson's like symptoms that resolved when she stopped taking the inciting medications. Last Assessment & Plan: She will send me a note from him of his latest assessment. documented as of this encounter (statuses as of 10/03/2021) [facility] History of Past illness Narrative* Problem Noted Date Resolved Date Post-operative pain 07/10/2016 08/12/2016 Hypomagnesemia 07/10/2016 07/10/2016 Full incontinence of feces 07/08/201607/10 Ankle instability 04/07/2016 08/12/2016 Posterior tibial tendonitis 04/07/201607/17 Trigger thumb of right hand 11/04/201507/17 Cramp in muscle 04/15/2015 08/12/2016 Primary insomnia 03/19/2015 08/12/2016 Last Assessment & Plan: Struggling with insomnia Pain in left knee 12/03/2014 08/12/2016 Overview: Patient has left knee pain , that got better with PT. Last Assessment & Plan: She is going for PT and now she feels better. significantly Weakness of left leg 11/04/2014 08/12/2016 Pain in joint, lower leg 02/19/2014 017 Tingling in extremities 10/11/2013 10/07/19 17 Overview: She is having tingling in her left thigh, that comes and goes. Going on for a couple months , but since the last 2 weeks she has been having it all the time. Last Assessment & Plan: She is having tingling in her left thigh, that comes and goes. Going on for a couple months , but since the last 2 weeks she has been having it all the time. Urgency of urination 03/09/2013 07/11/2013 Frequency of urination 03/09/2013 4 Last Assessment & Plan: Urinary incontinence is being followed and evaluated by Dr Vazquez, she is having some urodynamic studies done. i reveiwed Dr. Fernandez notes. Obesity 03/09/2013 10/06/2016 Overview: 04/25/13 BMI 48.43. Normal BMI 18.5-25, normal weight range of 112-150 pounds in a person 5 feet 5 inches tall. Last Assessment & Plan: Gaining weight since she has not been able to exercise due to her surgeries. Nausea 02/09/2013 08/12/2016 Last Assessment & Plan: Patient has some nausea recently, is on macrobid for suspected UTI, when she came in last week. Since all her tests are negative including urine culture.i am discontinuing that SOB (shortness of breath) on exertion 02/09/2013 08/12/2016 Last Assessment & Plan: The patient has SOB which was extensively evaluated, initially it was thought to be from asthma. After seeing the family consumer science teacher and all evaluation complete it was thought to from restriction of the lungs from her weight. She also has sleep apnea, needs oxygen bled into the cpap machine, as the desaturations at night time does not normalize with out bleeding oxygen in. Today we checked her oxygen , the results are below. resting with o2 at 3liters- 91% resting room air o2 sat- 90% activity room air o2 sat- 84% activity with nc at 3liters- 91% Urinary incontinence 02/09/2013 03/28/2013 Last Assessment & Plan: Patient is having the incontinence for a month. She is on vesicare but it does not help her. Prior to this she had some leakage and dribbling but it was never this bad. She has been having a lot of accidents in the last month. She is indeed a very complex patient and i would like to refer her to a Urologist so he can evaluate her bladder dynamics. Schizophrenia 01/04/2013 02/06/2014 Overview: Dr Delaney is her psychologist . Has not seen him for a year. Patient says that the diagnosis of schizophrenia was taken off the diagnosis. Last Assessment & Plan: Patients notes indicates, that she has schizophrenia. Has been on Thorazine, haldol and invega. These drugs gave her tardive dyskinesia. She was put on tetrabenzine for it, worked miracles with her and then she got some parkinson's like features. She couldn't even feed herself. She tried the medication twice. Currently she is not on any psychotic medications. Movement disorder 12/28/2012 08/12/2016 Last Assessment & Plan: Patient is here today, sitting in front of me, very restless, constantly moving her feet, knees, things, neck, in what looks like tardive dyskinesia. It happens 2/3 times a week continues for many hours before she can get Rest from it, she said starting or increasing doses of neurontin, have not made the episodes any worse. She can talk to us without a problem and although she looks very uncomfortable to me she says he is doing fine and this will just pass. She is on requip. And recently started on Gabapentin, we are decreasing her requip. She was on haldol many years ago she says for her depression. She says she has parkinsons and told me she is taking propranolol for it. I thinks she has not got it right. She does not know of any aggravating and relieving factors for these episodes. Wheezing 11/29/2012 08/12/2016 Last Assessment & Plan: Patient is audibly wheezing right now. She recently had asthmatic bronchitis and pneumonia, said she is prone to have it. had a course of levaquin. Steroids and bronchodilators. Schizoaffective disorder 11/15/2012 017 Overview: [facility] But [facility] it according to her. Last Assessment & Plan: [facility], But they changed it according to her. Parkinson disease 11/15/2012 12/03/2017 Overview: Radha [place], [place] I went through a lot of DR. Cevallos [facility]. he does not seem to think she has parkinson's. She had drug induced parkinson's like symptoms that resolved when she stopped taking the inciting medications. Last Assessment & Plan: She will send me a note from him of his latest assessment. documented as of this encounter (statuses as of 10/06/2021) [facility]05-[facility]2017 History of Past illness Narrative* Problem Noted Date Resolved Date Post-operative pain 07/10/2016 08/12/2016 Hypomagnesemia 07/10/2016 07/10/2016 Full incontinence of feces 07/08/201607/10 Ankle instability 04/07/2016 08/12/2016 Posterior tibial tendonitis 04/07/201607/17 Trigger thumb of right hand 11/04/201507/17 Cramp in muscle 04/15/2015 08/12/2016 Primary insomnia 03/19/2015 08/12/2016 Last Assessment & Plan: Struggling with insomnia Pain in left knee 12/03/2014 08/12/2016 Overview: Patient has left knee pain , that got better with PT. Last Assessment & Plan: She is going for PT and now she feels better. significantly Weakness of left leg 11/04/2014 08/12/2016 Pain in joint, lower leg 02/19/2014 017 Tingling in extremities 10/11/2013 10/07/19 17 Overview: She is having tingling in her left thigh, that comes and goes. Going on for a couple months , but since the last 2 weeks she has been having it all the time. Last Assessment & Plan: She is having tingling in her left thigh, that comes and goes. Going on for a couple months , but since the last 2 weeks she has been having it all the time. Urgency of urination 03/09/2013 07/11/2013 Frequency of urination 03/09/2013 4 Last Assessment & Plan: Urinary incontinence is being followed and evaluated by Dr Vazquez, she is having some urodynamic studies done. i reveiwed Dr. Fernandez notes. Obesity 03/09/2013 10/06/2016 Overview: 04/25/13 BMI 48.43. Normal BMI 18.5-25, normal weight range of 112-150 pounds in a person 5 feet 5 inches tall. Last Assessment & Plan: Gaining weight since she has not been able to exercise due to her surgeries. Nausea 02/09/2013 08/12/2016 Last Assessment & Plan: Patient has some nausea recently, is on macrobid for suspected UTI, when she came in last week. Since all her tests are negative including urine culture.i am discontinuing that SOB (shortness of breath) on exertion 02/09/2013 08/12/2016 Last Assessment & Plan: The patient has SOB which was extensively evaluated, initially it was thought to be from asthma. After seeing the family consumer science teacher and all evaluation complete it was thought to from restriction of the lungs from her weight. She also has sleep apnea, needs oxygen bled into the cpap machine, as the desaturations at night time does not normalize with out bleeding oxygen in. Today we checked her oxygen , the results are below. resting with o2 at 3liters- 91% resting room air o2 sat- 90% activity room air o2 sat- 84% activity with nc at 3liters- 91% Urinary incontinence 02/09/2013 03/28/2013 Last Assessment & Plan: Patient is having the incontinence for a month. She is on vesicare but it does not help her. Prior to this she had some leakage and dribbling but it was never this bad. She has been having a lot of accidents in the last month. She is indeed a very complex patient and i would like to refer her to a Urologist so he can evaluate her bladder dynamics. Schizophrenia 01/04/2013 02/06/2014 Overview: Dr Delaney is her psychologist . Has not seen him for a year. Patient says that the diagnosis of schizophrenia was taken off the diagnosis. Last Assessment & Plan: Patients notes indicates, that she has schizophrenia. Has been on Thorazine, haldol and invega. These drugs gave her tardive dyskinesia. She was put on tetrabenzine for it, worked miracles with her and then she got some parkinson's like features. She couldn't even feed herself. She tried the medication twice. Currently she is not on any psychotic medications. Movement disorder 12/28/2012 08/12/2016 Last Assessment & Plan: Patient is here today, sitting in front of me, very restless, constantly moving her feet, knees, things, neck, in what looks like tardive dyskinesia. It happens 2/3 times a week continues for many hours before she can get Rest from it, she said starting or increasing doses of neurontin, have not made the episodes any worse. She can talk to us without a problem and although she looks very uncomfortable to me she says he is doing fine and this will just pass. She is on requip. And recently started on Gabapentin, we are decreasing her requip. She was on haldol many years ago she says for her depression. She says she has parkinsons and told me she is taking propranolol for it. I thinks she has not got it right. She does not know of any aggravating and relieving factors for these episodes. Wheezing 11/29/2012 08/12/2016 Last Assessment & Plan: Patient is audibly wheezing right now. She recently had asthmatic bronchitis and pneumonia, said she is prone to have it. had a course of levaquin. Steroids and bronchodilators. Schizoaffective disorder 11/15/2012 017 Overview: [facility] But [facility] it according to her. Last Assessment & Plan: [facility], But they changed it according to her. Parkinson disease 11/15/2012 12/03/2017 Overview: Radha [place], [place] I went through a lot of DR. Cevallos notes from [facility]. he does not seem to think she has parkinson's. She had drug induced parkinson's like symptoms that resolved when she stopped taking the inciting medications. Last Assessment & Plan: She will send me a note from him of his latest assessment. documented as of this encounter (statuses as of 10/13/2021) [facility]05[facility]2017 History of Past illness Narrative* Problem Noted Date Resolved Date Post-operative pain 07/10/2016 08/12/2016 Hypomagnesemia 07/10/2016 07/10/2016 Full incontinence of feces 07/08/201607/10 Ankle instability 04/07/2016 08/12/2016 Posterior tibial tendonitis 04/07/201607/17 Trigger thumb of right hand 11/04/201507/17 Cramp in muscle 04/15/2015 08/12/2016 Primary insomnia 03/19/2015 08/12/2016 Last Assessment & Plan: Struggling with insomnia Pain in left knee 12/03/2014 08/12/2016 Overview: Patient has left knee pain , that got better with PT. Last Assessment & Plan: She is going for PT and now she feels better. significantly Weakness of left leg 11/04/2014 08/12/2016 Pain in joint, lower leg 02/19/2014 017 Tingling in extremities 10/11/2013 10/07/19 17 Overview: She is having tingling in her left thigh, that comes and goes. Going on for a couple months , but since the last 2 weeks she has been having it all the time. Last Assessment & Plan: She is having tingling in her left thigh, that comes and goes. Going on for a couple months , but since the last 2 weeks she has been having it all the time. Urgency of urination 03/09/2013 07/11/2013 Frequency of urination 03/09/2013 4 Last Assessment & Plan: Urinary incontinence is being followed and evaluated by Dr Vazquez, she is having some urodynamic studies done. i reveiwed Dr. Fernandez notes. Obesity 03/09/2013 10/06/2016 Overview: 04/25/13 BMI 48.43. Normal BMI 18.5-25, normal weight range of 112-150 pounds in a person 5 feet 5 inches tall. Last Assessment & Plan: Gaining weight since she has not been able to exercise due to her surgeries. Nausea 02/09/2013 08/12/2016 Last Assessment & Plan: Patient has some nausea recently, is on macrobid for suspected UTI, when she came in last week. Since all her tests are negative including urine culture.i am discontinuing that SOB (shortness of breath) on exertion 02/09/2013 08/12/2016 Last Assessment & Plan: The patient has SOB which was extensively evaluated, initially it was thought to be from asthma. After seeing the family consumer science teacher and all evaluation complete it was thought to from restriction of the lungs from her weight. She also has sleep apnea, needs oxygen bled into the cpap machine, as the desaturations at night time does not normalize with out bleeding oxygen in. Today we checked her oxygen , the results are below. resting with o2 at 3liters- 91% resting room air o2 sat- 90% activity room air o2 sat- 84% activity with nc at 3liters- 91% Urinary incontinence 02/09/2013 03/28/2013 Last Assessment & Plan: Patient is having the incontinence for a month. She is on vesicare but it does not help her. Prior to this she had some leakage and dribbling but it was never this bad. She has been having a lot of accidents in the last month. She is indeed a very complex patient and i would like to refer her to a Urologist so he can evaluate her bladder dynamics. Schizophrenia 01/04/2013 02/06/2014 Overview: Dr Delaney is her psychologist . Has not seen him for a year. Patient says that the diagnosis of schizophrenia was taken off the diagnosis. Last Assessment & Plan: Patients notes indicates, that she has schizophrenia. Has been on Thorazine, haldol and invega. These drugs gave her tardive dyskinesia. She was put on tetrabenzine for it, worked miracles with her and then she got some parkinson's like features. She couldn't even feed herself. She tried the medication twice. Currently she is not on any psychotic medications. Movement disorder 12/28/2012 08/12/2016 Last Assessment & Plan: Patient is here today, sitting in front of me, very restless, constantly moving her feet, knees, things, neck, in what looks like tardive dyskinesia. It happens 2/3 times a week continues for many hours before she can get Rest from it, she said starting or increasing doses of neurontin, have not made the episodes any worse. She can talk to us without a problem and although she looks very uncomfortable to me she says he is doing fine and this will just pass. She is on requip. And recently started on Gabapentin, we are decreasing her requip. She was on haldol many years ago she says for her depression. She says she has parkinsons and told me she is taking propranolol for it. I thinks she has not got it right. She does not know of any aggravating and relieving factors for these episodes. Wheezing 11/29/2012 08/12/2016 Last Assessment & Plan: Patient is audibly wheezing right now. She recently had asthmatic bronchitis and pneumonia, said she is prone to have it. had a course of levaquin. Steroids and bronchodilators. Schizoaffective disorder 11/15/2012 017 Overview: [facility] But [facility] it according to her. Last Assessment & Plan: [facility], But they changed it according to her. Parkinson disease 11/15/2012 12/03/2017 Overview: Radha [place], [place] I went through a lot of DR[facility]allos [facility]. he does not seem to think she has parkinson's. She had drug induced parkinson's like symptoms that resolved when she stopped taking the inciting medications. Last Assessment & Plan: She will send me a note from him of his latest assessment. documented as of this encounter (statuses as of 10/15/2021) [facility]05[facility]2017 History of Past illness Narrative* Problem Noted Date Resolved Date Post-operative pain 07/10/2016 08/12/2016 Hypomagnesemia 07/10/2016 07/10/2016 Full incontinence of feces 07/08/201607/10 Ankle instability 04/07/2016 08/12/2016 Posterior tibial tendonitis 04/07/201607/17 Trigger thumb of right hand 11/04/201507/17 Cramp in muscle 04/15/2015 08/12/2016 Primary insomnia 03/19/2015 08/12/2016 Last Assessment & Plan: Struggling with insomnia Pain in left knee 12/03/2014 08/12/2016 Overview: Patient has left knee pain , that got better with PT. Last Assessment & Plan: She is going for PT and now she feels better. significantly Weakness of left leg 11/04/2014 08/12/2016 Pain in joint, lower leg 02/19/2014 017 Tingling in extremities 10/11/2013 10/07/19 17 Overview: She is having tingling in her left thigh, that comes and goes. Going on for a couple months , but since the last 2 weeks she has been having it all the time. Last Assessment & Plan: She is having tingling in her left thigh, that comes and goes. Going on for a couple months , but since the last 2 weeks she has been having it all the time. Urgency of urination 03/09/2013 07/11/2013 Frequency of urination 03/09/2013 4 Last Assessment & Plan: Urinary incontinence is being followed and evaluated by Dr Vazquez, she is having some urodynamic studies done. i reveiwed Dr. Fernandez notes. Obesity 03/09/2013 10/06/2016 Overview: 04/25/13 BMI 48.43. Normal BMI 18.5-25, normal weight range of 112-150 pounds in a person 5 feet 5 inches tall. Last Assessment & Plan: Gaining weight since she has not been able to exercise due to her surgeries. Nausea 02/09/2013 08/12/2016 Last Assessment & Plan: Patient has some nausea recently, is on macrobid for suspected UTI, when she came in last week. Since all her tests are negative including urine culture.i am discontinuing that SOB (shortness of breath) on exertion 02/09/2013 08/12/2016 Last Assessment & Plan: The patient has SOB which was extensively evaluated, initially it was thought to be from asthma. After seeing the family consumer science teacher and all evaluation complete it was thought to from restriction of the lungs from her weight. She also has sleep apnea, needs oxygen bled into the cpap machine, as the desaturations at night time does not normalize with out bleeding oxygen in. Today we checked her oxygen , the results are below. resting with o2 at 3liters- 91% resting room air o2 sat- 90% activity room air o2 sat- 84% activity with nc at 3liters- 91% Urinary incontinence 02/09/2013 03/28/2013 Last Assessment & Plan: Patient is having the incontinence for a month. She is on vesicare but it does not help her. Prior to this she had some leakage and dribbling but it was never this bad. She has been having a lot of accidents in the last month. She is indeed a very complex patient and i would like to refer her to a Urologist so he can evaluate her bladder dynamics. Schizophrenia 01/04/2013 02/06/2014 Overview: Dr Delaney is her psychologist . Has not seen him for a year. Patient says that the diagnosis of schizophrenia was taken off the diagnosis. Last Assessment & Plan: Patients notes indicates, that she has schizophrenia. Has been on Thorazine, haldol and invega. These drugs gave her tardive dyskinesia. She was put on tetrabenzine for it, worked miracles with her and then she got some parkinson's like features. She couldn't even feed herself. She tried the medication twice. Currently she is not on any psychotic medications. Movement disorder 12/28/2012 08/12/2016 Last Assessment & Plan: Patient is here today, sitting in front of me, very restless, constantly moving her feet, knees, things, neck, in what looks like tardive dyskinesia. It happens 2/3 times a week continues for many hours before she can get Rest from it, she said starting or increasing doses of neurontin, have not made the episodes any worse. She can talk to us without a problem and although she looks very uncomfortable to me she says he is doing fine and this will just pass. She is on requip. And recently started on Gabapentin, we are decreasing her requip. She was on haldol many years ago she says for her depression. She says she has parkinsons and told me she is taking propranolol for it. I thinks she has not got it right. She does not know of any aggravating and relieving factors for these episodes. Wheezing 11/29/2012 08/12/2016 Last Assessment & Plan: Patient is audibly wheezing right now. She recently had asthmatic bronchitis and pneumonia, said she is prone to have it. had a course of levaquin. Steroids and bronchodilators. Schizoaffective disorder 11/15/2012 017 Overview: [facility] But [facility] it according to her. Last Assessment & Plan: [facility], But they changed it according to her. Parkinson disease 11/15/2012 12/03/2017 Overview: Radha [place], [place] I went through a lot of [facility]. [facility]allos [facility]. he does not seem to think she has parkinson's. She had drug induced parkinson's like symptoms that resolved when she stopped taking the inciting medications. Last Assessment & Plan: She will send me a note from him of his latest assessment. documented as of this encounter (statuses as of 10/16/2021) [facility] History of Past illness Narrative* Problem Noted Date Resolved Date Post-operative pain 07/10/2016 08/12/2016 Hypomagnesemia 07/10/2016 07/10/2016 Full incontinence of feces 07/08/201607/10 Ankle instability 04/07/2016 08/12/2016 Posterior tibial tendonitis 04/07/201607/17 Trigger thumb of right hand 11/04/201507/17 Cramp in muscle 04/15/2015 08/12/2016 Primary insomnia 03/19/2015 08/12/2016 Last Assessment & Plan: Struggling with insomnia Pain in left knee 12/03/2014 08/12/2016 Overview: Patient has left knee pain , that got better with PT. Last Assessment & Plan: She is going for PT and now she feels better. significantly Weakness of left leg 11/04/2014 08/12/2016 Pain in joint, lower leg 02/19/2014 017 Tingling in extremities 10/11/2013 10/07/19 17 Overview: She is having tingling in her left thigh, that comes and goes. Going on for a couple months , but since the last 2 weeks she has been having it all the time. Last Assessment & Plan: She is having tingling in her left thigh, that comes and goes. Going on for a couple months , but since the last 2 weeks she has been having it all the time. Urgency of urination 03/09/2013 07/11/2013 Frequency of urination 03/09/2013 4 Last Assessment & Plan: Urinary incontinence is being followed and evaluated by Dr Vazquez, she is having some urodynamic studies done. i reveiwed Dr. Fernandez notes. Obesity 03/09/2013 10/06/2016 Overview: 04/25/13 BMI 48.43. Normal BMI 18.5-25, normal weight range of 112-150 pounds in a person 5 feet 5 inches tall. Last Assessment & Plan: Gaining weight since she has not been able to exercise due to her surgeries. Nausea 02/09/2013 08/12/2016 Last Assessment & Plan: Patient has some nausea recently, is on macrobid for suspected UTI, when she came in last week. Since all her tests are negative including urine culture.i am discontinuing that SOB (shortness of breath) on exertion 02/09/2013 08/12/2016 Last Assessment & Plan: The patient has SOB which was extensively evaluated, initially it was thought to be from asthma. After seeing the family consumer science teacher and all evaluation complete it was thought to from restriction of the lungs from her weight. She also has sleep apnea, needs oxygen bled into the cpap machine, as the desaturations at night time does not normalize with out bleeding oxygen in. Today we checked her oxygen , the results are below. resting with o2 at 3liters- 91% resting room air o2 sat- 90% activity room air o2 sat- 84% activity with nc at 3liters- 91% Urinary incontinence 02/09/2013 03/28/2013 Last Assessment & Plan: Patient is having the incontinence for a month. She is on vesicare but it does not help her. Prior to this she had some leakage and dribbling but it was never this bad. She has been having a lot of accidents in the last month. She is indeed a very complex patient and i would like to refer her to a Urologist so he can evaluate her bladder dynamics. Schizophrenia 01/04/2013 02/06/2014 Overview: Dr Delaney is her psychologist . Has not seen him for a year. Patient says that the diagnosis of schizophrenia was taken off the diagnosis. Last Assessment & Plan: Patients notes indicates, that she has schizophrenia. Has been on Thorazine, haldol and invega. These drugs gave her tardive dyskinesia. She was put on tetrabenzine for it, worked miracles with her and then she got some parkinson's like features. She couldn't even feed herself. She tried the medication twice. Currently she is not on any psychotic medications. Movement disorder 12/28/2012 08/12/2016 Last Assessment & Plan: Patient is here today, sitting in front of me, very restless, constantly moving her feet, knees, things, neck, in what looks like tardive dyskinesia. It happens 2/3 times a week continues for many hours before she can get Rest from it, she said starting or increasing doses of neurontin, have not made the episodes any worse. She can talk to us without a problem and although she looks very uncomfortable to me she says he is doing fine and this will just pass. She is on requip. And recently started on Gabapentin, we are decreasing her requip. She was on haldol many years ago she says for her depression. She says she has parkinsons and told me she is taking propranolol for it. I thinks she has not got it right. She does not know of any aggravating and relieving factors for these episodes. Wheezing 11/29/2012 08/12/2016 Last Assessment & Plan: Patient is audibly wheezing right now. She recently had asthmatic bronchitis and pneumonia, said she is prone to have it. had a course of levaquin. Steroids and bronchodilators. Schizoaffective disorder 11/15/2012 017 Overview: [facility] But [facility] it according to her. Last Assessment & Plan: [facility], But they changed it according to her. Parkinson disease 11/15/2012 12/03/2017 Overview: [place], [place] I went through a lot of [facility]allos [facility]. he does not seem to think she has parkinson's. She had drug induced parkinson's like symptoms that resolved when she stopped taking the inciting medications. Last Assessment & Plan: She will send me a note from him of his latest assessment. documented as of this encounter (statuses as of 10/23/2021) [facility] History of Past illness Narrative* Problem Noted Date Resolved Date Post-operative pain 07/10/2016 08/12/2016 Hypomagnesemia 07/10/2016 07/10/2016 Full incontinence of feces 07/08/201607/10 Ankle instability 04/07/2016 08/12/2016 Posterior tibial tendonitis 04/07/201607/17 Trigger thumb of right hand 11/04/201507/17 Cramp in muscle 04/15/2015 08/12/2016 Primary insomnia 03/19/2015 08/12/2016 Last Assessment & Plan: Struggling with insomnia Pain in left knee 12/03/2014 08/12/2016 Overview: Patient has left knee pain , that got better with PT. Last Assessment & Plan: She is going for PT and now she feels better. significantly Weakness of left leg 11/04/2014 08/12/2016 Pain in joint, lower leg 02/19/2014 017 Tingling in extremities 10/11/2013 10/07/19 17 Overview: She is having tingling in her left thigh, that comes and goes. Going on for a couple months , but since the last 2 weeks she has been having it all the time. Last Assessment & Plan: She is having tingling in her left thigh, that comes and goes. Going on for a couple months , but since the last 2 weeks she has been having it all the time. Urgency of urination 03/09/2013 07/11/2013 Frequency of urination 03/09/2013 4 Last Assessment & Plan: Urinary incontinence is being followed and evaluated by Dr Vazquez, she is having some urodynamic studies done. i reveiwed Dr. Fernandez notes. Obesity 03/09/2013 10/06/2016 Overview: 04/25/13 BMI 48.43. Normal BMI 18.5-25, normal weight range of 112-150 pounds in a person 5 feet 5 inches tall. Last Assessment & Plan: Gaining weight since she has not been able to exercise due to her surgeries. Nausea 02/09/2013 08/12/2016 Last Assessment & Plan: Patient has some nausea recently, is on macrobid for suspected UTI, when she came in last week. Since all her tests are negative including urine culture.i am discontinuing that SOB (shortness of breath) on exertion 02/09/2013 08/12/2016 Last Assessment & Plan: The patient has SOB which was extensively evaluated, initially it was thought to be from asthma. After seeing the family consumer science teacher and all evaluation complete it was thought to from restriction of the lungs from her weight. She also has sleep apnea, needs oxygen bled into the cpap machine, as the desaturations at night time does not normalize with out bleeding oxygen in. Today we checked her oxygen , the results are below. resting with o2 at 3liters- 91% resting room air o2 sat- 90% activity room air o2 sat- 84% activity with nc at 3liters- 91% Urinary incontinence 02/09/2013 03/28/2013 Last Assessment & Plan: Patient is having the incontinence for a month. She is on vesicare but it does not help her. Prior to this she had some leakage and dribbling but it was never this bad. She has been having a lot of accidents in the last month. She is indeed a very complex patient and i would like to refer her to a Urologist so he can evaluate her bladder dynamics. Schizophrenia 01/04/2013 02/06/2014 Overview: Dr Delaney is her psychologist . Has not seen him for a year. Patient says that the diagnosis of schizophrenia was taken off the diagnosis. Last Assessment & Plan: Patients notes indicates, that she has schizophrenia. Has been on Thorazine, haldol and invega. These drugs gave her tardive dyskinesia. She was put on tetrabenzine for it, worked miracles with her and then she got some parkinson's like features. She couldn't even feed herself. She tried the medication twice. Currently she is not on any psychotic medications. Movement disorder 12/28/2012 08/12/2016 Last Assessment & Plan: Patient is here today, sitting in front of me, very restless, constantly moving her feet, knees, things, neck, in what looks like tardive dyskinesia. It happens 2/3 times a week continues for many hours before she can get Rest from it, she said starting or increasing doses of neurontin, have not made the episodes any worse. She can talk to us without a problem and although she looks very uncomfortable to me she says he is doing fine and this will just pass. She is on requip. And recently started on Gabapentin, we are decreasing her requip. She was on haldol many years ago she says for her depression. She says she has parkinsons and told me she is taking propranolol for it. I thinks she has not got it right. She does not know of any aggravating and relieving factors for these episodes. Wheezing 11/29/2012 08/12/2016 Last Assessment & Plan: Patient is audibly wheezing right now. She recently had asthmatic bronchitis and pneumonia, said she is prone to have it. had a course of levaquin. Steroids and bronchodilators. Schizoaffective disorder 11/15/2012 017 Overview: [facility] But [facility] it according to her. Last Assessment & Plan: [facility], But they changed it according to her. Parkinson disease 11/15/2012 12/03/2017 Overview: Radha [place], [place] I went through a lot of DR. Cevallos notes [facility]. he does not seem to think she has parkinson's. She had drug induced parkinson's like symptoms that resolved when she stopped taking the inciting medications. Last Assessment & Plan: She will send me a note from him of his latest assessment. documented as of this encounter (statuses as of 10/24/2021) [facility]05-[facility]-2017 History of Past illness Narrative* Problem Noted Date Resolved Date Post-operative pain 07/10/2016 08/12/2016 Hypomagnesemia 07/10/2016 07/10/2016 Full incontinence of feces 07/08/201607/10 Ankle instability 04/07/2016 08/12/2016 Posterior tibial tendonitis 04/07/201607/17 Trigger thumb of right hand 11/04/201507/17 Cramp in muscle 04/15/2015 08/12/2016 Primary insomnia 03/19/2015 08/12/2016 Last Assessment & Plan: Struggling with insomnia Pain in left knee 12/03/2014 08/12/2016 Overview: Patient has left knee pain , that got better with PT. Last Assessment & Plan: She is going for PT and now she feels better. significantly Weakness of left leg 11/04/2014 08/12/2016 Pain in joint, lower leg 02/19/2014 017 Tingling in extremities 10/11/2013 10/07/19 17 Overview: She is having tingling in her left thigh, that comes and goes. Going on for a couple months , but since the last 2 weeks she has been having it all the time. Last Assessment & Plan: She is having tingling in her left thigh, that comes and goes. Going on for a couple months , but since the last 2 weeks she has been having it all the time. Urgency of urination 03/09/2013 07/11/2013 Frequency of urination 03/09/2013 4 Last Assessment & Plan: Urinary incontinence is being followed and evaluated by Dr Vazquez, she is having some urodynamic studies done. i reveiwed Dr. Fernandez notes. Obesity 03/09/2013 10/06/2016 Overview: 04/25/13 BMI 48.43. Normal BMI 18.5-25, normal weight range of 112-150 pounds in a person 5 feet 5 inches tall. Last Assessment & Plan: Gaining weight since she has not been able to exercise due to her surgeries. Nausea 02/09/2013 08/12/2016 Last Assessment & Plan: Patient has some nausea recently, is on macrobid for suspected UTI, when she came in last week. Since all her tests are negative including urine culture.i am discontinuing that SOB (shortness of breath) on exertion 02/09/2013 08/12/2016 Last Assessment & Plan: The patient has SOB which was extensively evaluated, initially it was thought to be from asthma. After seeing the family consumer science teacher and all evaluation complete it was thought to from restriction of the lungs from her weight. She also has sleep apnea, needs oxygen bled into the cpap machine, as the desaturations at night time does not normalize with out bleeding oxygen in. Today we checked her oxygen , the results are below. resting with o2 at 3liters- 91% resting room air o2 sat- 90% activity room air o2 sat- 84% activity with nc at 3liters- 91% Urinary incontinence 02/09/2013 03/28/2013 Last Assessment & Plan: Patient is having the incontinence for a month. She is on vesicare but it does not help her. Prior to this she had some leakage and dribbling but it was never this bad. She has been having a lot of accidents in the last month. She is indeed a very complex patient and i would like to refer her to a Urologist so he can evaluate her bladder dynamics. Schizophrenia 01/04/2013 02/06/2014 Overview: Dr Delaney is her psychologist . Has not seen him for a year. Patient says that the diagnosis of schizophrenia was taken off the diagnosis. Last Assessment & Plan: Patients notes indicates, that she has schizophrenia. Has been on Thorazine, haldol and invega. These drugs gave her tardive dyskinesia. She was put on tetrabenzine for it, worked miracles with her and then she got some parkinson's like features. She couldn't even feed herself. She tried the medication twice. Currently she is not on any psychotic medications. Movement disorder 12/28/2012 08/12/2016 Last Assessment & Plan: Patient is here today, sitting in front of me, very restless, constantly moving her feet, knees, things, neck, in what looks like tardive dyskinesia. It happens 2/3 times a week continues for many hours before she can get Rest from it, she said starting or increasing doses of neurontin, have not made the episodes any worse. She can talk to us without a problem and although she looks very uncomfortable to me she says he is doing fine and this will just pass. She is on requip. And recently started on Gabapentin, we are decreasing her requip. She was on haldol many years ago she says for her depression. She says she has parkinsons and told me she is taking propranolol for it. I thinks she has not got it right. She does not know of any aggravating and relieving factors for these episodes. Wheezing 11/29/2012 08/12/2016 Last Assessment & Plan: Patient is audibly wheezing right now. She recently had asthmatic bronchitis and pneumonia, said she is prone to have it. had a course of levaquin. Steroids and bronchodilators. Schizoaffective disorder 11/15/2012 017 Overview: [facility] But [facility] it according to her. Last Assessment & Plan: [facility], But they changed it according to her. Parkinson disease 11/15/2012 12/03/2017 Overview: Radha [place], [place] I went through a lot of DR. Cevallos notes from [facility]. he does not seem to think she has parkinson's. She had drug induced parkinson's like symptoms that resolved when she stopped taking the inciting medications. Last Assessment & Plan: She will send me a note from him of his latest assessment. documented as of this encounter (statuses as of 10/24/2021) [facility]05[facility]2017 History of Past illness Narrative* Problem Noted Date Resolved Date Post-operative pain 07/10/2016 08/12/2016 Hypomagnesemia 07/10/2016 07/10/2016 Full incontinence of feces 07/08/201607/10 Ankle instability 04/07/2016 08/12/2016 Posterior tibial tendonitis 04/07/201607/17 Trigger thumb of right hand 11/04/201507/17 Cramp in muscle 04/15/2015 08/12/2016 Primary insomnia 03/19/2015 08/12/2016 Last Assessment & Plan: Struggling with insomnia Pain in left knee 12/03/2014 08/12/2016 Overview: Patient has left knee pain , that got better with PT. Last Assessment & Plan: She is going for PT and now she feels better. significantly Weakness of left leg 11/04/2014 08/12/2016 Pain in joint, lower leg 02/19/2014 017 Tingling in extremities 10/11/2013 10/07/19 17 Overview: She is having tingling in her left thigh, that comes and goes. Going on for a couple months , but since the last 2 weeks she has been having it all the time. Last Assessment & Plan: She is having tingling in her left thigh, that comes and goes. Going on for a couple months , but since the last 2 weeks she has been having it all the time. Urgency of urination 03/09/2013 07/11/2013 Frequency of urination 03/09/2013 4 Last Assessment & Plan: Urinary incontinence is being followed and evaluated by Dr Vazquez, she is having some urodynamic studies done. i reveiwed Dr. Fernandez notes. Obesity 03/09/2013 10/06/2016 Overview: 04/25/13 BMI 48.43. Normal BMI 18.5-25, normal weight range of 112-150 pounds in a person 5 feet 5 inches tall. Last Assessment & Plan: Gaining weight since she has not been able to exercise due to her surgeries. Nausea 02/09/2013 08/12/2016 Last Assessment & Plan: Patient has some nausea recently, is on macrobid for suspected UTI, when she came in last week. Since all her tests are negative including urine culture.i am discontinuing that SOB (shortness of breath) on exertion 02/09/2013 08/12/2016 Last Assessment & Plan: The patient has SOB which was extensively evaluated, initially it was thought to be from asthma. After seeing the family consumer science teacher and all evaluation complete it was thought to from restriction of the lungs from her weight. She also has sleep apnea, needs oxygen bled into the cpap machine, as the desaturations at night time does not normalize with out bleeding oxygen in. Today we checked her oxygen , the results are below. resting with o2 at 3liters- 91% resting room air o2 sat- 90% activity room air o2 sat- 84% activity with nc at 3liters- 91% Urinary incontinence 02/09/2013 03/28/2013 Last Assessment & Plan: Patient is having the incontinence for a month. She is on vesicare but it does not help her. Prior to this she had some leakage and dribbling but it was never this bad. She has been having a lot of accidents in the last month. She is indeed a very complex patient and i would like to refer her to a Urologist so he can evaluate her bladder dynamics. Schizophrenia 01/04/2013 02/06/2014 Overview: Dr Delaney is her psychologist . Has not seen him for a year. Patient says that the diagnosis of schizophrenia was taken off the diagnosis. Last Assessment & Plan: Patients notes indicates, that she has schizophrenia. Has been on Thorazine, haldol and invega. These drugs gave her tardive dyskinesia. She was put on tetrabenzine for it, worked miracles with her and then she got some parkinson's like features. She couldn't even feed herself. She tried the medication twice. Currently she is not on any psychotic medications. Movement disorder 12/28/2012 08/12/2016 Last Assessment & Plan: Patient is here today, sitting in front of me, very restless, constantly moving her feet, knees, things, neck, in what looks like tardive dyskinesia. It happens 2/3 times a week continues for many hours before she can get Rest from it, she said starting or increasing doses of neurontin, have not made the episodes any worse. She can talk to us without a problem and although she looks very uncomfortable to me she says he is doing fine and this will just pass. She is on requip. And recently started on Gabapentin, we are decreasing her requip. She was on haldol many years ago she says for her depression. She says she has parkinsons and told me she is taking propranolol for it. I thinks she has not got it right. She does not know of any aggravating and relieving factors for these episodes. Wheezing 11/29/2012 08/12/2016 Last Assessment & Plan: Patient is audibly wheezing right now. She recently had asthmatic bronchitis and pneumonia, said she is prone to have it. had a course of levaquin. Steroids and bronchodilators. Schizoaffective disorder 11/15/2012 017 Overview: [facility] But [facility] it according to her. Last Assessment & Plan: [facility], But they changed it according to her. Parkinson disease 11/15/2012 12/03/2017 Overview: Radha [place], [place] I went through a lot of [facility]allos [facility]. he does not seem to think she has parkinson's. She had drug induced parkinson's like symptoms that resolved when she stopped taking the inciting medications. Last Assessment & Plan: She will send me a note from him of his latest assessment. documented as of this encounter (statuses as of 10/27/2021) [facility]05[facility]2017 History of Past illness Narrative* Problem Noted Date Resolved Date Post-operative pain 07/10/2016 08/12/2016 Hypomagnesemia 07/10/2016 07/10/2016 Full incontinence of feces 07/08/201607/10 Ankle instability 04/07/2016 08/12/2016 Posterior tibial tendonitis 04/07/201607/17 Trigger thumb of right hand 11/04/201507/17 Cramp in muscle 04/15/2015 08/12/2016 Primary insomnia 03/19/2015 08/12/2016 Last Assessment & Plan: Struggling with insomnia Pain in left knee 12/03/2014 08/12/2016 Overview: Patient has left knee pain , that got better with PT. Last Assessment & Plan: She is going for PT and now she feels better. significantly Weakness of left leg 11/04/2014 08/12/2016 Pain in joint, lower leg 02/19/2014 017 Tingling in extremities 10/11/2013 10/07/19 17 Overview: She is having tingling in her left thigh, that comes and goes. Going on for a couple months , but since the last 2 weeks she has been having it all the time. Last Assessment & Plan: She is having tingling in her left thigh, that comes and goes. Going on for a couple months , but since the last 2 weeks she has been having it all the time. Urgency of urination 03/09/2013 07/11/2013 Frequency of urination 03/09/2013 4 Last Assessment & Plan: Urinary incontinence is being followed and evaluated by Dr Vazquez, she is having some urodynamic studies done. i reveiwed Dr. Fernandez notes. Obesity 03/09/2013 10/06/2016 Overview: 04/25/13 BMI 48.43. Normal BMI 18.5-25, normal weight range of 112-150 pounds in a person 5 feet 5 inches tall. Last Assessment & Plan: Gaining weight since she has not been able to exercise due to her surgeries. Nausea 02/09/2013 08/12/2016 Last Assessment & Plan: Patient has some nausea recently, is on macrobid for suspected UTI, when she came in last week. Since all her tests are negative including urine culture.i am discontinuing that SOB (shortness of breath) on exertion 02/09/2013 08/12/2016 Last Assessment & Plan: The patient has SOB which was extensively evaluated, initially it was thought to be from asthma. After seeing the family consumer science teacher and all evaluation complete it was thought to from restriction of the lungs from her weight. She also has sleep apnea, needs oxygen bled into the cpap machine, as the desaturations at night time does not normalize with out bleeding oxygen in. Today we checked her oxygen , the results are below. resting with o2 at 3liters- 91% resting room air o2 sat- 90% activity room air o2 sat- 84% activity with nc at 3liters- 91% Urinary incontinence 02/09/2013 03/28/2013 Last Assessment & Plan: Patient is having the incontinence for a month. She is on vesicare but it does not help her. Prior to this she had some leakage and dribbling but it was never this bad. She has been having a lot of accidents in the last month. She is indeed a very complex patient and i would like to refer her to a Urologist so he can evaluate her bladder dynamics. Schizophrenia 01/04/2013 02/06/2014 Overview: Dr Delaney is her psychologist . Has not seen him for a year. Patient says that the diagnosis of schizophrenia was taken off the diagnosis. Last Assessment & Plan: Patients notes indicates, that she has schizophrenia. Has been on Thorazine, haldol and invega. These drugs gave her tardive dyskinesia. She was put on tetrabenzine for it, worked miracles with her and then she got some parkinson's like features. She couldn't even feed herself. She tried the medication twice. Currently she is not on any psychotic medications. Movement disorder 12/28/2012 08/12/2016 Last Assessment & Plan: Patient is here today, sitting in front of me, very restless, constantly moving her feet, knees, things, neck, in what looks like tardive dyskinesia. It happens 2/3 times a week continues for many hours before she can get Rest from it, she said starting or increasing doses of neurontin, have not made the episodes any worse. She can talk to us without a problem and although she looks very uncomfortable to me she says he is doing fine and this will just pass. She is on requip. And recently started on Gabapentin, we are decreasing her requip. She was on haldol many years ago she says for her depression. She says she has parkinsons and told me she is taking propranolol for it. I thinks she has not got it right. She does not know of any aggravating and relieving factors for these episodes. Wheezing 11/29/2012 08/12/2016 Last Assessment & Plan: Patient is audibly wheezing right now. She recently had asthmatic bronchitis and pneumonia, said she is prone to have it. had a course of levaquin. Steroids and bronchodilators. Schizoaffective disorder 11/15/2012 017 Overview: [facility] But [facility] it according to her. Last Assessment & Plan: [facility], But they changed it according to her. Parkinson disease 11/15/2012 12/03/2017 Overview: [place], [place] I went through a lot of [facility]allos [facility]. he does not seem to think she has parkinson's. She had drug induced parkinson's like symptoms that resolved when she stopped taking the inciting medications. Last Assessment & Plan: She will send me a note from him of his latest assessment. documented as of this encounter (statuses as of 10/30/2021) [facility] History of Past illness Narrative* Problem Noted Date Resolved Date Post-operative pain 07/10/2016 08/12/2016 Hypomagnesemia 07/10/2016 07/10/2016 Full incontinence of feces 07/08/201607/10 Ankle instability 04/07/2016 08/12/2016 Posterior tibial tendonitis 04/07/201607/17 Trigger thumb of right hand 11/04/201507/17 Cramp in muscle 04/15/2015 08/12/2016 Primary insomnia 03/19/2015 08/12/2016 Last Assessment & Plan: Struggling with insomnia Pain in left knee 12/03/2014 08/12/2016 Overview: Patient has left knee pain , that got better with PT. Last Assessment & Plan: She is going for PT and now she feels better. significantly Weakness of left leg 11/04/2014 08/12/2016 Pain in joint, lower leg 02/19/2014 017 Tingling in extremities 10/11/2013 10/07/19 17 Overview: She is having tingling in her left thigh, that comes and goes. Going on for a couple months , but since the last 2 weeks she has been having it all the time. Last Assessment & Plan: She is having tingling in her left thigh, that comes and goes. Going on for a couple months , but since the last 2 weeks she has been having it all the time. Urgency of urination 03/09/2013 07/11/2013 Frequency of urination 03/09/2013 4 Last Assessment & Plan: Urinary incontinence is being followed and evaluated by Dr Vazquez, she is having some urodynamic studies done. i reveiwed Dr. Fernandez notes. Obesity 03/09/2013 10/06/2016 Overview: 04/25/13 BMI 48.43. Normal BMI 18.5-25, normal weight range of 112-150 pounds in a person 5 feet 5 inches tall. Last Assessment & Plan: Gaining weight since she has not been able to exercise due to her surgeries. Nausea 02/09/2013 08/12/2016 Last Assessment & Plan: Patient has some nausea recently, is on macrobid for suspected UTI, when she came in last week. Since all her tests are negative including urine culture.i am discontinuing that SOB (shortness of breath) on exertion 02/09/2013 08/12/2016 Last Assessment & Plan: The patient has SOB which was extensively evaluated, initially it was thought to be from asthma. After seeing the family consumer science teacher and all evaluation complete it was thought to from restriction of the lungs from her weight. She also has sleep apnea, needs oxygen bled into the cpap machine, as the desaturations at night time does not normalize with out bleeding oxygen in. Today we checked her oxygen , the results are below. resting with o2 at 3liters- 91% resting room air o2 sat- 90% activity room air o2 sat- 84% activity with nc at 3liters- 91% Urinary incontinence 02/09/2013 03/28/2013 Last Assessment & Plan: Patient is having the incontinence for a month. She is on vesicare but it does not help her. Prior to this she had some leakage and dribbling but it was never this bad. She has been having a lot of accidents in the last month. She is indeed a very complex patient and i would like to refer her to a Urologist so he can evaluate her bladder dynamics. Schizophrenia 01/04/2013 02/06/2014 Overview: Dr Delaney is her psychologist . Has not seen him for a year. Patient says that the diagnosis of schizophrenia was taken off the diagnosis. Last Assessment & Plan: Patients notes indicates, that she has schizophrenia. Has been on Thorazine, haldol and invega. These drugs gave her tardive dyskinesia. She was put on tetrabenzine for it, worked miracles with her and then she got some parkinson's like features. She couldn't even feed herself. She tried the medication twice. Currently she is not on any psychotic medications. Movement disorder 12/28/2012 08/12/2016 Last Assessment & Plan: Patient is here today, sitting in front of me, very restless, constantly moving her feet, knees, things, neck, in what looks like tardive dyskinesia. It happens 2/3 times a week continues for many hours before she can get Rest from it, she said starting or increasing doses of neurontin, have not made the episodes any worse. She can talk to us without a problem and although she looks very uncomfortable to me she says he is doing fine and this will just pass. She is on requip. And recently started on Gabapentin, we are decreasing her requip. She was on haldol many years ago she says for her depression. She says she has parkinsons and told me she is taking propranolol for it. I thinks she has not got it right. She does not know of any aggravating and relieving factors for these episodes. Wheezing 11/29/2012 08/12/2016 Last Assessment & Plan: Patient is audibly wheezing right now. She recently had asthmatic bronchitis and pneumonia, said she is prone to have it. had a course of levaquin. Steroids and bronchodilators. Schizoaffective disorder 11/15/2012 05/09/2 017 Overview: [facility] it according to her. Last Assessment & Plan: [facility], But they changed it according to her. Parkinson disease 11/15/2012 12/03/2017 Overview: Radha [place], [place] I went through a lot of DR[facility] Cevallos [facility]. he does not seem to think she has parkinson's. She had drug induced parkinson's like symptoms that resolved when she stopped taking the inciting medications. Last Assessment & Plan: She will send me a note from him of his latest assessment. documented as of this encounter (statuses as of 10/31/2021) [facility]05-26-2017 History of Past illness Narrative* Problem Noted Date Resolved Date Post-operative pain 07/10/2016 08/12/2016 Hypomagnesemia 07/10/2016 07/10/2016 Full incontinence of feces 07/08/201607/10 Ankle instability 04/07/2016 08/12/2016 Posterior tibial tendonitis 04/07/201607/17 Trigger thumb of right hand 11/04/201507/17 Cramp in muscle 04/15/2015 08/12/2016 Primary insomnia 03/19/2015 08/12/2016 Last Assessment & Plan: Struggling with insomnia Pain in left knee 12/03/2014 08/12/2016 Overview: Patient has left knee pain , that got better with PT. Last Assessment & Plan: She is going for PT and now she feels better. significantly Weakness of left leg 11/04/2014 08/12/2016 Pain in joint, lower leg 02/19/2014 017 Tingling in extremities 10/11/2013 10/07/19 17 Overview: She is having tingling in her left thigh, that comes and goes. Going on for a couple months , but since the last 2 weeks she has been having it all the time. Last Assessment & Plan: She is having tingling in her left thigh, that comes and goes. Going on for a couple months , but since the last 2 weeks she has been having it all the time. Urgency of urination 03/09/2013 07/11/2013 Frequency of urination 03/09/2013 4 Last Assessment & Plan: Urinary incontinence is being followed and evaluated by Dr Vazquez, she is having some urodynamic studies done. i reveiwed Dr. Fernandez notes. Obesity 03/09/2013 10/06/2016 Overview: 04/25/13 BMI 48.43. Normal BMI 18.5-25, normal weight range of 112-150 pounds in a person 5 feet 5 inches tall. Last Assessment & Plan: Gaining weight since she has not been able to exercise due to her surgeries. Nausea 02/09/2013 08/12/2016 Last Assessment & Plan: Patient has some nausea recently, is on macrobid for suspected UTI, when she came in last week. Since all her tests are negative including urine culture.i am discontinuing that SOB (shortness of breath) on exertion 02/09/2013 08/12/2016 Last Assessment & Plan: The patient has SOB which was extensively evaluated, initially it was thought to be from asthma. After seeing the family consumer science teacher and all evaluation complete it was thought to from restriction of the lungs from her weight. She also has sleep apnea, needs oxygen bled into the cpap machine, as the desaturations at night time does not normalize with out bleeding oxygen in. Today we checked her oxygen , the results are below. resting with o2 at 3liters- 91% resting room air o2 sat- 90% activity room air o2 sat- 84% activity with nc at 3liters- 91% Urinary incontinence 02/09/2013 03/28/2013 Last Assessment & Plan: Patient is having the incontinence for a month. She is on vesicare but it does not help her. Prior to this she had some leakage and dribbling but it was never this bad. She has been having a lot of accidents in the last month. She is indeed a very complex patient and i would like to refer her to a Urologist so he can evaluate her bladder dynamics. Schizophrenia 01/04/2013 02/06/2014 Overview: Dr Delaney is her psychologist . Has not seen him for a year. Patient says that the diagnosis of schizophrenia was taken off the diagnosis. Last Assessment & Plan: Patients notes indicates, that she has schizophrenia. Has been on Thorazine, haldol and invega. These drugs gave her tardive dyskinesia. She was put on tetrabenzine for it, worked miracles with her and then she got some parkinson's like features. She couldn't even feed herself. She tried the medication twice. Currently she is not on any psychotic medications. Movement disorder 12/28/2012 08/12/2016 Last Assessment & Plan: Patient is here today, sitting in front of me, very restless, constantly moving her feet, knees, things, neck, in what looks like tardive dyskinesia. It happens 2/3 times a week continues for many hours before she can get Rest from it, she said starting or increasing doses of neurontin, have not made the episodes any worse. She can talk to us without a problem and although she looks very uncomfortable to me she says he is doing fine and this will just pass. She is on requip. And recently started on Gabapentin, we are decreasing her requip. She was on haldol many years ago she says for her depression. She says she has parkinsons and told me she is taking propranolol for it. I thinks she has not got it right. She does not know of any aggravating and relieving factors for these episodes. Wheezing 11/29/2012 08/12/2016 Last Assessment & Plan: Patient is audibly wheezing right now. She recently had asthmatic bronchitis and pneumonia, said she is prone to have it. had a course of levaquin. Steroids and bronchodilators. Schizoaffective disorder 11/15/2012 017 Overview: [facility] But [facility] it according to her. Last Assessment & Plan: [facility], But they changed it according to her. Parkinson disease 11/15/2012 12/03/2017 Overview: Radha [place], [place] I went through a lot of DR. Cevallos notes from [facility]. he does not seem to think she has parkinson's. She had drug induced parkinson's like symptoms that resolved when she stopped taking the inciting medications. Last Assessment & Plan: She will send me a note from him of his latest assessment. documented as of this encounter (statuses as of 11/01/2021) [facility]05[facility]2017 History of Past illness Narrative* Problem Noted Date Resolved Date Post-operative pain 07/10/2016 08/12/2016 Hypomagnesemia 07/10/2016 07/10/2016 Full incontinence of feces 07/08/201607/10 Ankle instability 04/07/2016 08/12/2016 Posterior tibial tendonitis 04/07/201607/17 Trigger thumb of right hand 11/04/201507/17 Cramp in muscle 04/15/2015 08/12/2016 Primary insomnia 03/19/2015 08/12/2016 Last Assessment & Plan: Struggling with insomnia Pain in left knee 12/03/2014 08/12/2016 Overview: Patient has left knee pain , that got better with PT. Last Assessment & Plan: She is going for PT and now she feels better. significantly Weakness of left leg 11/04/2014 08/12/2016 Pain in joint, lower leg 02/19/2014 017 Tingling in extremities 10/11/2013 10/07/19 17 Overview: She is having tingling in her left thigh, that comes and goes. Going on for a couple months , but since the last 2 weeks she has been having it all the time. Last Assessment & Plan: She is having tingling in her left thigh, that comes and goes. Going on for a couple months , but since the last 2 weeks she has been having it all the time. Urgency of urination 03/09/2013 07/11/2013 Frequency of urination 03/09/2013 4 Last Assessment & Plan: Urinary incontinence is being followed and evaluated by Dr Vazquez, she is having some urodynamic studies done. i reveiwed Dr. Fernandez notes. Obesity 03/09/2013 10/06/2016 Overview: 04/25/13 BMI 48.43. Normal BMI 18.5-25, normal weight range of 112-150 pounds in a person 5 feet 5 inches tall. Last Assessment & Plan: Gaining weight since she has not been able to exercise due to her surgeries. Nausea 02/09/2013 08/12/2016 Last Assessment & Plan: Patient has some nausea recently, is on macrobid for suspected UTI, when she came in last week. Since all her tests are negative including urine culture.i am discontinuing that SOB (shortness of breath) on exertion 02/09/2013 08/12/2016 Last Assessment & Plan: The patient has SOB which was extensively evaluated, initially it was thought to be from asthma. After seeing the family consumer science teacher and all evaluation complete it was thought to from restriction of the lungs from her weight. She also has sleep apnea, needs oxygen bled into the cpap machine, as the desaturations at night time does not normalize with out bleeding oxygen in. Today we checked her oxygen , the results are below. resting with o2 at 3liters- 91% resting room air o2 sat- 90% activity room air o2 sat- 84% activity with nc at 3liters- 91% Urinary incontinence 02/09/2013 03/28/2013 Last Assessment & Plan: Patient is having the incontinence for a month. She is on vesicare but it does not help her. Prior to this she had some leakage and dribbling but it was never this bad. She has been having a lot of accidents in the last month. She is indeed a very complex patient and i would like to refer her to a Urologist so he can evaluate her bladder dynamics. Schizophrenia 01/04/2013 02/06/2014 Overview: Dr Delaney is her psychologist . Has not seen him for a year. Patient says that the diagnosis of schizophrenia was taken off the diagnosis. Last Assessment & Plan: Patients notes indicates, that she has schizophrenia. Has been on Thorazine, haldol and invega. These drugs gave her tardive dyskinesia. She was put on tetrabenzine for it, worked miracles with her and then she got some parkinson's like features. She couldn't even feed herself. She tried the medication twice. Currently she is not on any psychotic medications. Movement disorder 12/28/2012 08/12/2016 Last Assessment & Plan: Patient is here today, sitting in front of me, very restless, constantly moving her feet, knees, things, neck, in what looks like tardive dyskinesia. It happens 2/3 times a week continues for many hours before she can get Rest from it, she said starting or increasing doses of neurontin, have not made the episodes any worse. She can talk to us without a problem and although she looks very uncomfortable to me she says he is doing fine and this will just pass. She is on requip. And recently started on Gabapentin, we are decreasing her requip. She was on haldol many years ago she says for her depression. She says she has parkinsons and told me she is taking propranolol for it. I thinks she has not got it right. She does not know of any aggravating and relieving factors for these episodes. Wheezing 11/29/2012 08/12/2016 Last Assessment & Plan: Patient is audibly wheezing right now. She recently had asthmatic bronchitis and pneumonia, said she is prone to have it. had a course of levaquin. Steroids and bronchodilators. Schizoaffective disorder 11/15/2012 017 Overview: [facility] But [facility] it according to her. Last Assessment & Plan: [facility], But they changed it according to her. Parkinson disease 11/15/2012 12/03/2017 Overview: Radha [place], [place] I went through a lot of [facility] Cevallos [facility]. he does not seem to think she has parkinson's. She had drug induced parkinson's like symptoms that resolved when she stopped taking the inciting medications. Last Assessment & Plan: She will send me a note from him of his latest assessment. documented as of this encounter (statuses as of 11/03/2021) [facility]05[facility]2017 History of Past illness Narrative* Problem Noted Date Resolved Date Post-operative pain 07/10/2016 08/12/2016 Hypomagnesemia 07/10/2016 07/10/2016 Full incontinence of feces 07/08/201607/10 Ankle instability 04/07/2016 08/12/2016 Posterior tibial tendonitis 04/07/201607/17 Trigger thumb of right hand 11/04/201507/17 Cramp in muscle 04/15/2015 08/12/2016 Primary insomnia 03/19/2015 08/12/2016 Last Assessment & Plan: Struggling with insomnia Pain in left knee 12/03/2014 08/12/2016 Overview: Patient has left knee pain , that got better with PT. Last Assessment & Plan: She is going for PT and now she feels better. significantly Weakness of left leg 11/04/2014 08/12/2016 Pain in joint, lower leg 02/19/2014 017 Tingling in extremities 10/11/2013 10/07/19 17 Overview: She is having tingling in her left thigh, that comes and goes. Going on for a couple months , but since the last 2 weeks she has been having it all the time. Last Assessment & Plan: She is having tingling in her left thigh, that comes and goes. Going on for a couple months , but since the last 2 weeks she has been having it all the time. Urgency of urination 03/09/2013 07/11/2013 Frequency of urination 03/09/2013 4 Last Assessment & Plan: Urinary incontinence is being followed and evaluated by Dr Vazquez, she is having some urodynamic studies done. i reveiwed Dr. Fernandez notes. Obesity 03/09/2013 10/06/2016 Overview: 04/25/13 BMI 48.43. Normal BMI 18.5-25, normal weight range of 112-150 pounds in a person 5 feet 5 inches tall. Last Assessment & Plan: Gaining weight since she has not been able to exercise due to her surgeries. Nausea 02/09/2013 08/12/2016 Last Assessment & Plan: Patient has some nausea recently, is on macrobid for suspected UTI, when she came in last week. Since all her tests are negative including urine culture.i am discontinuing that SOB (shortness of breath) on exertion 02/09/2013 08/12/2016 Last Assessment & Plan: The patient has SOB which was extensively evaluated, initially it was thought to be from asthma. After seeing the family consumer science teacher and all evaluation complete it was thought to from restriction of the lungs from her weight. She also has sleep apnea, needs oxygen bled into the cpap machine, as the desaturations at night time does not normalize with out bleeding oxygen in. Today we checked her oxygen , the results are below. resting with o2 at 3liters- 91% resting room air o2 sat- 90% activity room air o2 sat- 84% activity with nc at 3liters- 91% Urinary incontinence 02/09/2013 03/28/2013 Last Assessment & Plan: Patient is having the incontinence for a month. She is on vesicare but it does not help her. Prior to this she had some leakage and dribbling but it was never this bad. She has been having a lot of accidents in the last month. She is indeed a very complex patient and i would like to refer her to a Urologist so he can evaluate her bladder dynamics. Schizophrenia 01/04/2013 02/06/2014 Overview: Dr Delaney is her psychologist . Has not seen him for a year. Patient says that the diagnosis of schizophrenia was taken off the diagnosis. Last Assessment & Plan: Patients notes indicates, that she has schizophrenia. Has been on Thorazine, haldol and invega. These drugs gave her tardive dyskinesia. She was put on tetrabenzine for it, worked miracles with her and then she got some parkinson's like features. She couldn't even feed herself. She tried the medication twice. Currently she is not on any psychotic medications. Movement disorder 12/28/2012 08/12/2016 Last Assessment & Plan: Patient is here today, sitting in front of me, very restless, constantly moving her feet, knees, things, neck, in what looks like tardive dyskinesia. It happens 2/3 times a week continues for many hours before she can get Rest from it, she said starting or increasing doses of neurontin, have not made the episodes any worse. She can talk to us without a problem and although she looks very uncomfortable to me she says he is doing fine and this will just pass. She is on requip. And recently started on Gabapentin, we are decreasing her requip. She was on haldol many years ago she says for her depression. She says she has parkinsons and told me she is taking propranolol for it. I thinks she has not got it right. She does not know of any aggravating and relieving factors for these episodes. Wheezing 11/29/2012 08/12/2016 Last Assessment & Plan: Patient is audibly wheezing right now. She recently had asthmatic bronchitis and pneumonia, said she is prone to have it. had a course of levaquin. Steroids and bronchodilators. Schizoaffective disorder 11/15/2012 017 Overview: [facility] But [facility] it according to her. Last Assessment & Plan: [facility], But they changed it according to her. Parkinson disease 11/15/2012 12/03/2017 Overview: Radha [place], [place] I went through a lot of [facility]. [facility]allos [facility]. he does not seem to think she has parkinson's. She had drug induced parkinson's like symptoms that resolved when she stopped taking the inciting medications. Last Assessment & Plan: She will send me a note from him of his latest assessment. documented as of this encounter (statuses as of 11/03/2021) [facility] History of Past illness Narrative* Problem Noted Date Resolved Date Post-operative pain 07/10/2016 08/12/2016 Hypomagnesemia 07/10/2016 07/10/2016 Full incontinence of feces 07/08/201607/10 Ankle instability 04/07/2016 08/12/2016 Posterior tibial tendonitis 04/07/201607/17 Trigger thumb of right hand 11/04/201507/17 Cramp in muscle 04/15/2015 08/12/2016 Primary insomnia 03/19/2015 08/12/2016 Last Assessment & Plan: Struggling with insomnia Pain in left knee 12/03/2014 08/12/2016 Overview: Patient has left knee pain , that got better with PT. Last Assessment & Plan: She is going for PT and now she feels better. significantly Weakness of left leg 11/04/2014 08/12/2016 Pain in joint, lower leg 02/19/2014 017 Tingling in extremities 10/11/2013 10/07/19 17 Overview: She is having tingling in her left thigh, that comes and goes. Going on for a couple months , but since the last 2 weeks she has been having it all the time. Last Assessment & Plan: She is having tingling in her left thigh, that comes and goes. Going on for a couple months , but since the last 2 weeks she has been having it all the time. Urgency of urination 03/09/2013 07/11/2013 Frequency of urination 03/09/2013 4 Last Assessment & Plan: Urinary incontinence is being followed and evaluated by Dr Vazquez, she is having some urodynamic studies done. i reveiwed Dr. Fernandez notes. Obesity 03/09/2013 10/06/2016 Overview: 04/25/13 BMI 48.43. Normal BMI 18.5-25, normal weight range of 112-150 pounds in a person 5 feet 5 inches tall. Last Assessment & Plan: Gaining weight since she has not been able to exercise due to her surgeries. Nausea 02/09/2013 08/12/2016 Last Assessment & Plan: Patient has some nausea recently, is on macrobid for suspected UTI, when she came in last week. Since all her tests are negative including urine culture.i am discontinuing that SOB (shortness of breath) on exertion 02/09/2013 08/12/2016 Last Assessment & Plan: The patient has SOB which was extensively evaluated, initially it was thought to be from asthma. After seeing the family consumer science teacher and all evaluation complete it was thought to from restriction of the lungs from her weight. She also has sleep apnea, needs oxygen bled into the cpap machine, as the desaturations at night time does not normalize with out bleeding oxygen in. Today we checked her oxygen , the results are below. resting with o2 at 3liters- 91% resting room air o2 sat- 90% activity room air o2 sat- 84% activity with nc at 3liters- 91% Urinary incontinence 02/09/2013 03/28/2013 Last Assessment & Plan: Patient is having the incontinence for a month. She is on vesicare but it does not help her. Prior to this she had some leakage and dribbling but it was never this bad. She has been having a lot of accidents in the last month. She is indeed a very complex patient and i would like to refer her to a Urologist so he can evaluate her bladder dynamics. Schizophrenia 01/04/2013 02/06/2014 Overview: Dr Delaney is her psychologist . Has not seen him for a year. Patient says that the diagnosis of schizophrenia was taken off the diagnosis. Last Assessment & Plan: Patients notes indicates, that she has schizophrenia. Has been on Thorazine, haldol and invega. These drugs gave her tardive dyskinesia. She was put on tetrabenzine for it, worked miracles with her and then she got some parkinson's like features. She couldn't even feed herself. She tried the medication twice. Currently she is not on any psychotic medications. Movement disorder 12/28/2012 08/12/2016 Last Assessment & Plan: Patient is here today, sitting in front of me, very restless, constantly moving her feet, knees, things, neck, in what looks like tardive dyskinesia. It happens 2/3 times a week continues for many hours before she can get Rest from it, she said starting or increasing doses of neurontin, have not made the episodes any worse. She can talk to us without a problem and although she looks very uncomfortable to me she says he is doing fine and this will just pass. She is on requip. And recently started on Gabapentin, we are decreasing her requip. She was on haldol many years ago she says for her depression. She says she has parkinsons and told me she is taking propranolol for it. I thinks she has not got it right. She does not know of any aggravating and relieving factors for these episodes. Wheezing 11/29/2012 08/12/2016 Last Assessment & Plan: Patient is audibly wheezing right now. She recently had asthmatic bronchitis and pneumonia, said she is prone to have it. had a course of levaquin. Steroids and bronchodilators. Schizoaffective disorder 11/15/2012 017 Overview: [facility] But [facility] it according to her. Last Assessment & Plan: [facility], But they changed it according to her. Parkinson disease 11/15/2012 12/03/2017 Overview: [place], [place] I went through a lot of [facility]. [facility]allos [facility]. he does not seem to think she has parkinson's. She had drug induced parkinson's like symptoms that resolved when she stopped taking the inciting medications. Last Assessment & Plan: She will send me a note from him of his latest assessment. documented as of this encounter (statuses as of 11/05/2021) [facility] History of Past illness Narrative* Problem Noted Date Resolved Date Post-operative pain 07/10/2016 08/12/2016 Hypomagnesemia 07/10/2016 07/10/2016 Full incontinence of feces 07/08/201607/10 Ankle instability 04/07/2016 08/12/2016 Posterior tibial tendonitis 04/07/201607/17 Trigger thumb of right hand 11/04/201507/17 Cramp in muscle 04/15/2015 08/12/2016 Primary insomnia 03/19/2015 08/12/2016 Last Assessment & Plan: Struggling with insomnia Pain in left knee 12/03/2014 08/12/2016 Overview: Patient has left knee pain , that got better with PT. Last Assessment & Plan: She is going for PT and now she feels better. significantly Weakness of left leg 11/04/2014 08/12/2016 Pain in joint, lower leg 02/19/2014 017 Tingling in extremities 10/11/2013 10/07/19 17 Overview: She is having tingling in her left thigh, that comes and goes. Going on for a couple months , but since the last 2 weeks she has been having it all the time. Last Assessment & Plan: She is having tingling in her left thigh, that comes and goes. Going on for a couple months , but since the last 2 weeks she has been having it all the time. Urgency of urination 03/09/2013 07/11/2013 Frequency of urination 03/09/2013 4 Last Assessment & Plan: Urinary incontinence is being followed and evaluated by Dr Vazquez, she is having some urodynamic studies done. i reveiwed Dr. Fernandez notes. Obesity 03/09/2013 10/06/2016 Overview: 04/25/13 BMI 48.43. Normal BMI 18.5-25, normal weight range of 112-150 pounds in a person 5 feet 5 inches tall. Last Assessment & Plan: Gaining weight since she has not been able to exercise due to her surgeries. Nausea 02/09/2013 08/12/2016 Last Assessment & Plan: Patient has some nausea recently, is on macrobid for suspected UTI, when she came in last week. Since all her tests are negative including urine culture.i am discontinuing that SOB (shortness of breath) on exertion 02/09/2013 08/12/2016 Last Assessment & Plan: The patient has SOB which was extensively evaluated, initially it was thought to be from asthma. After seeing the family consumer science teacher and all evaluation complete it was thought to from restriction of the lungs from her weight. She also has sleep apnea, needs oxygen bled into the cpap machine, as the desaturations at night time does not normalize with out bleeding oxygen in. Today we checked her oxygen , the results are below. resting with o2 at 3liters- 91% resting room air o2 sat- 90% activity room air o2 sat- 84% activity with nc at 3liters- 91% Urinary incontinence 02/09/2013 03/28/2013 Last Assessment & Plan: Patient is having the incontinence for a month. She is on vesicare but it does not help her. Prior to this she had some leakage and dribbling but it was never this bad. She has been having a lot of accidents in the last month. She is indeed a very complex patient and i would like to refer her to a Urologist so he can evaluate her bladder dynamics. Schizophrenia 01/04/2013 02/06/2014 Overview: Dr Delaney is her psychologist . Has not seen him for a year. Patient says that the diagnosis of schizophrenia was taken off the diagnosis. Last Assessment & Plan: Patients notes indicates, that she has schizophrenia. Has been on Thorazine, haldol and invega. These drugs gave her tardive dyskinesia. She was put on tetrabenzine for it, worked miracles with her and then she got some parkinson's like features. She couldn't even feed herself. She tried the medication twice. Currently she is not on any psychotic medications. Movement disorder 12/28/2012 08/12/2016 Last Assessment & Plan: Patient is here today, sitting in front of me, very restless, constantly moving her feet, knees, things, neck, in what looks like tardive dyskinesia. It happens 2/3 times a week continues for many hours before she can get Rest from it, she said starting or increasing doses of neurontin, have not made the episodes any worse. She can talk to us without a problem and although she looks very uncomfortable to me she says he is doing fine and this will just pass. She is on requip. And recently started on Gabapentin, we are decreasing her requip. She was on haldol many years ago she says for her depression. She says she has parkinsons and told me she is taking propranolol for it. I thinks she has not got it right. She does not know of any aggravating and relieving factors for these episodes. Wheezing 11/29/2012 08/12/2016 Last Assessment & Plan: Patient is audibly wheezing right now. She recently had asthmatic bronchitis and pneumonia, said she is prone to have it. had a course of levaquin. Steroids and bronchodilators. Schizoaffective disorder 11/15/2012 017 Overview: [facility] But [facility] it according to her. Last Assessment & Plan: [facility], But they changed it according to her. Parkinson disease 11/15/2012 12/03/2017 Overview: Radha [place], [place] I went through a lot of DR. Cevallos notes [facility]. he does not seem to think she has parkinson's. She had drug induced parkinson's like symptoms that resolved when she stopped taking the inciting medications. Last Assessment & Plan: She will send me a note from him of his latest assessment. documented as of this encounter (statuses as of 11/05/2021) [facility]05[facility]2017 History of Past illness Narrative* Problem Noted Date Resolved Date Post-operative pain 07/10/2016 08/12/2016 Hypomagnesemia 07/10/2016 07/10/2016 Full incontinence of feces 07/08/201607/10 Ankle instability 04/07/2016 08/12/2016 Posterior tibial tendonitis 04/07/201607/17 Trigger thumb of right hand 11/04/201507/17 Cramp in muscle 04/15/2015 08/12/2016 Primary insomnia 03/19/2015 08/12/2016 Last Assessment & Plan: Struggling with insomnia Pain in left knee 12/03/2014 08/12/2016 Overview: Patient has left knee pain , that got better with PT. Last Assessment & Plan: She is going for PT and now she feels better. significantly Weakness of left leg 11/04/2014 08/12/2016 Pain in joint, lower leg 02/19/2014 017 Tingling in extremities 10/11/2013 10/07/19 17 Overview: She is having tingling in her left thigh, that comes and goes. Going on for a couple months , but since the last 2 weeks she has been having it all the time. Last Assessment & Plan: She is having tingling in her left thigh, that comes and goes. Going on for a couple months , but since the last 2 weeks she has been having it all the time. Urgency of urination 03/09/2013 07/11/2013 Frequency of urination 03/09/2013 4 Last Assessment & Plan: Urinary incontinence is being followed and evaluated by Dr Vazquez, she is having some urodynamic studies done. i reveiwed Dr. Fernandez notes. Obesity 03/09/2013 10/06/2016 Overview: 04/25/13 BMI 48.43. Normal BMI 18.5-25, normal weight range of 112-150 pounds in a person 5 feet 5 inches tall. Last Assessment & Plan: Gaining weight since she has not been able to exercise due to her surgeries. Nausea 02/09/2013 08/12/2016 Last Assessment & Plan: Patient has some nausea recently, is on macrobid for suspected UTI, when she came in last week. Since all her tests are negative including urine culture.i am discontinuing that SOB (shortness of breath) on exertion 02/09/2013 08/12/2016 Last Assessment & Plan: The patient has SOB which was extensively evaluated, initially it was thought to be from asthma. After seeing the family consumer science teacher and all evaluation complete it was thought to from restriction of the lungs from her weight. She also has sleep apnea, needs oxygen bled into the cpap machine, as the desaturations at night time does not normalize with out bleeding oxygen in. Today we checked her oxygen , the results are below. resting with o2 at 3liters- 91% resting room air o2 sat- 90% activity room air o2 sat- 84% activity with nc at 3liters- 91% Urinary incontinence 02/09/2013 03/28/2013 Last Assessment & Plan: Patient is having the incontinence for a month. She is on vesicare but it does not help her. Prior to this she had some leakage and dribbling but it was never this bad. She has been having a lot of accidents in the last month. She is indeed a very complex patient and i would like to refer her to a Urologist so he can evaluate her bladder dynamics. Schizophrenia 01/04/2013 02/06/2014 Overview: Dr Delaney is her psychologist . Has not seen him for a year. Patient says that the diagnosis of schizophrenia was taken off the diagnosis. Last Assessment & Plan: Patients notes indicates, that she has schizophrenia. Has been on Thorazine, haldol and invega. These drugs gave her tardive dyskinesia. She was put on tetrabenzine for it, worked miracles with her and then she got some parkinson's like features. She couldn't even feed herself. She tried the medication twice. Currently she is not on any psychotic medications. Movement disorder 12/28/2012 08/12/2016 Last Assessment & Plan: Patient is here today, sitting in front of me, very restless, constantly moving her feet, knees, things, neck, in what looks like tardive dyskinesia. It happens 2/3 times a week continues for many hours before she can get Rest from it, she said starting or increasing doses of neurontin, have not made the episodes any worse. She can talk to us without a problem and although she looks very uncomfortable to me she says he is doing fine and this will just pass. She is on requip. And recently started on Gabapentin, we are decreasing her requip. She was on haldol many years ago she says for her depression. She says she has parkinsons and told me she is taking propranolol for it. I thinks she has not got it right. She does not know of any aggravating and relieving factors for these episodes. Wheezing 11/29/2012 08/12/2016 Last Assessment & Plan: Patient is audibly wheezing right now. She recently had asthmatic bronchitis and pneumonia, said she is prone to have it. had a course of levaquin. Steroids and bronchodilators. Schizoaffective disorder 11/15/2012 017 Overview: [facility] But [facility] it according to her. Last Assessment & Plan: [facility], But they changed it according to her. Parkinson disease 11/15/2012 12/03/2017 Overview: Radha [place], [place] I went through a lot of DR. Cevallos notes from [facility]. he does not seem to think she has parkinson's. She had drug induced parkinson's like symptoms that resolved when she stopped taking the inciting medications. Last Assessment & Plan: She will send me a note from him of his latest assessment. documented as of this encounter (statuses as of 11/05/2021) [facility] History of Past illness Narrative* Problem Noted Date Resolved Date Post-operative pain 07/10/2016 08/12/2016 Hypomagnesemia 07/10/2016 07/10/2016 Full incontinence of feces 07/08/201607/10 Ankle instability 04/07/2016 08/12/2016 Posterior tibial tendonitis 04/07/201607/17 Trigger thumb of right hand 11/04/201507/17 Cramp in muscle 04/15/2015 08/12/2016 Primary insomnia 03/19/2015 08/12/2016 Last Assessment & Plan: Struggling with insomnia Pain in left knee 12/03/2014 08/12/2016 Overview: Patient has left knee pain , that got better with PT. Last Assessment & Plan: She is going for PT and now she feels better. significantly Weakness of left leg 11/04/2014 08/12/2016 Pain in joint, lower leg 02/19/2014 017 Tingling in extremities 10/11/2013 10/07/19 17 Overview: She is having tingling in her left thigh, that comes and goes. Going on for a couple months , but since the last 2 weeks she has been having it all the time. Last Assessment & Plan: She is having tingling in her left thigh, that comes and goes. Going on for a couple months , but since the last 2 weeks she has been having it all the time. Urgency of urination 03/09/2013 07/11/2013 Frequency of urination 03/09/2013 4 Last Assessment & Plan: Urinary incontinence is being followed and evaluated by Dr Vazquez, she is having some urodynamic studies done. i reveiwed Dr. Fernandez notes. Obesity 03/09/2013 10/06/2016 Overview: 04/25/13 BMI 48.43. Normal BMI 18.5-25, normal weight range of 112-150 pounds in a person 5 feet 5 inches tall. Last Assessment & Plan: Gaining weight since she has not been able to exercise due to her surgeries. Nausea 02/09/2013 08/12/2016 Last Assessment & Plan: Patient has some nausea recently, is on macrobid for suspected UTI, when she came in last week. Since all her tests are negative including urine culture.i am discontinuing that SOB (shortness of breath) on exertion 02/09/2013 08/12/2016 Last Assessment & Plan: The patient has SOB which was extensively evaluated, initially it was thought to be from asthma. After seeing the family consumer science teacher and all evaluation complete it was thought to from restriction of the lungs from her weight. She also has sleep apnea, needs oxygen bled into the cpap machine, as the desaturations at night time does not normalize with out bleeding oxygen in. Today we checked her oxygen , the results are below. resting with o2 at 3liters- 91% resting room air o2 sat- 90% activity room air o2 sat- 84% activity with nc at 3liters- 91% Urinary incontinence 02/09/2013 03/28/2013 Last Assessment & Plan: Patient is having the incontinence for a month. She is on vesicare but it does not help her. Prior to this she had some leakage and dribbling but it was never this bad. She has been having a lot of accidents in the last month. She is indeed a very complex patient and i would like to refer her to a Urologist so he can evaluate her bladder dynamics. Schizophrenia 01/04/2013 02/06/2014 Overview: Dr Delaney is her psychologist . Has not seen him for a year. Patient says that the diagnosis of schizophrenia was taken off the diagnosis. Last Assessment & Plan: Patients notes indicates, that she has schizophrenia. Has been on Thorazine, haldol and invega. These drugs gave her tardive dyskinesia. She was put on tetrabenzine for it, worked miracles with her and then she got some parkinson's like features. She couldn't even feed herself. She tried the medication twice. Currently she is not on any psychotic medications. Movement disorder 12/28/2012 08/12/2016 Last Assessment & Plan: Patient is here today, sitting in front of me, very restless, constantly moving her feet, knees, things, neck, in what looks like tardive dyskinesia. It happens 2/3 times a week continues for many hours before she can get Rest from it, she said starting or increasing doses of neurontin, have not made the episodes any worse. She can talk to us without a problem and although she looks very uncomfortable to me she says he is doing fine and this will just pass. She is on requip. And recently started on Gabapentin, we are decreasing her requip. She was on haldol many years ago she says for her depression. She says she has parkinsons and told me she is taking propranolol for it. I thinks she has not got it right. She does not know of any aggravating and relieving factors for these episodes. Wheezing 11/29/2012 08/12/2016 Last Assessment & Plan: Patient is audibly wheezing right now. She recently had asthmatic bronchitis and pneumonia, said she is prone to have it. had a course of levaquin. Steroids and bronchodilators. Schizoaffective disorder 11/15/2012 017 Overview: [facility] But [facility] it according to her. Last Assessment & Plan: [facility], But they changed it according to her. Parkinson disease 11/15/2012 12/03/2017 Overview: Radha [place], [place] I went through a lot of DR[facility]allos [facility]. he does not seem to think she has parkinson's. She had drug induced parkinson's like symptoms that resolved when she stopped taking the inciting medications. Last Assessment & Plan: She will send me a note from him of his latest assessment. documented as of this encounter (statuses as of 11/06/2021) [facility] History of Past illness Narrative* Problem Noted Date Resolved Date Post-operative pain 07/10/2016 08/12/2016 Hypomagnesemia 07/10/2016 07/10/2016 Full incontinence of feces 07/08/201607/10 Ankle instability 04/07/2016 08/12/2016 Posterior tibial tendonitis 04/07/201607/17 Trigger thumb of right hand 11/04/201507/17 Cramp in muscle 04/15/2015 08/12/2016 Primary insomnia 03/19/2015 08/12/2016 Last Assessment & Plan: Struggling with insomnia Pain in left knee 12/03/2014 08/12/2016 Overview: Patient has left knee pain , that got better with PT. Last Assessment & Plan: She is going for PT and now she feels better. significantly Weakness of left leg 11/04/2014 08/12/2016 Pain in joint, lower leg 02/19/2014 017 Tingling in extremities 10/11/2013 10/07/19 17 Overview: She is having tingling in her left thigh, that comes and goes. Going on for a couple months , but since the last 2 weeks she has been having it all the time. Last Assessment & Plan: She is having tingling in her left thigh, that comes and goes. Going on for a couple months , but since the last 2 weeks she has been having it all the time. Urgency of urination 03/09/2013 07/11/2013 Frequency of urination 03/09/2013 4 Last Assessment & Plan: Urinary incontinence is being followed and evaluated by Dr Vazquez, she is having some urodynamic studies done. i reveiwed Dr. Fernandez notes. Obesity 03/09/2013 10/06/2016 Overview: 04/25/13 BMI 48.43. Normal BMI 18.5-25, normal weight range of 112-150 pounds in a person 5 feet 5 inches tall. Last Assessment & Plan: Gaining weight since she has not been able to exercise due to her surgeries. Nausea 02/09/2013 08/12/2016 Last Assessment & Plan: Patient has some nausea recently, is on macrobid for suspected UTI, when she came in last week. Since all her tests are negative including urine culture.i am discontinuing that SOB (shortness of breath) on exertion 02/09/2013 08/12/2016 Last Assessment & Plan: The patient has SOB which was extensively evaluated, initially it was thought to be from asthma. After seeing the family consumer science teacher and all evaluation complete it was thought to from restriction of the lungs from her weight. She also has sleep apnea, needs oxygen bled into the cpap machine, as the desaturations at night time does not normalize with out bleeding oxygen in. Today we checked her oxygen , the results are below. resting with o2 at 3liters- 91% resting room air o2 sat- 90% activity room air o2 sat- 84% activity with nc at 3liters- 91% Urinary incontinence 02/09/2013 03/28/2013 Last Assessment & Plan: Patient is having the incontinence for a month. She is on vesicare but it does not help her. Prior to this she had some leakage and dribbling but it was never this bad. She has been having a lot of accidents in the last month. She is indeed a very complex patient and i would like to refer her to a Urologist so he can evaluate her bladder dynamics. Schizophrenia 01/04/2013 02/06/2014 Overview: Dr Delaney is her psychologist . Has not seen him for a year. Patient says that the diagnosis of schizophrenia was taken off the diagnosis. Last Assessment & Plan: Patients notes indicates, that she has schizophrenia. Has been on Thorazine, haldol and invega. These drugs gave her tardive dyskinesia. She was put on tetrabenzine for it, worked miracles with her and then she got some parkinson's like features. She couldn't even feed herself. She tried the medication twice. Currently she is not on any psychotic medications. Movement disorder 12/28/2012 08/12/2016 Last Assessment & Plan: Patient is here today, sitting in front of me, very restless, constantly moving her feet, knees, things, neck, in what looks like tardive dyskinesia. It happens 2/3 times a week continues for many hours before she can get Rest from it, she said starting or increasing doses of neurontin, have not made the episodes any worse. She can talk to us without a problem and although she looks very uncomfortable to me she says he is doing fine and this will just pass. She is on requip. And recently started on Gabapentin, we are decreasing her requip. She was on haldol many years ago she says for her depression. She says she has parkinsons and told me she is taking propranolol for it. I thinks she has not got it right. She does not know of any aggravating and relieving factors for these episodes. Wheezing 11/29/2012 08/12/2016 Last Assessment & Plan: Patient is audibly wheezing right now. She recently had asthmatic bronchitis and pneumonia, said she is prone to have it. had a course of levaquin. Steroids and bronchodilators. Schizoaffective disorder 11/15/2012 017 Overview: [facility] But [facility] it according to her. Last Assessment & Plan: [facility], But they changed it according to her. Parkinson disease 11/15/2012 12/03/2017 Overview: [place], [place] I went through a lot of [facility]allos [facility]. he does not seem to think she has parkinson's. She had drug induced parkinson's like symptoms that resolved when she stopped taking the inciting medications. Last Assessment & Plan: She will send me a note from him of his latest assessment. documented as of this encounter (statuses as of 11/07/2021) [facility] History of Past illness Narrative* Problem Noted Date Resolved Date Post-operative pain 07/10/2016 08/12/2016 Hypomagnesemia 07/10/2016 07/10/2016 Full incontinence of feces 07/08/201607/10 Ankle instability 04/07/2016 08/12/2016 Posterior tibial tendonitis 04/07/201607/17 Trigger thumb of right hand 11/04/201507/17 Cramp in muscle 04/15/2015 08/12/2016 Primary insomnia 03/19/2015 08/12/2016 Last Assessment & Plan: Struggling with insomnia Pain in left knee 12/03/2014 08/12/2016 Overview: Patient has left knee pain , that got better with PT. Last Assessment & Plan: She is going for PT and now she feels better. significantly Weakness of left leg 11/04/2014 08/12/2016 Pain in joint, lower leg 02/19/2014 017 Tingling in extremities 10/11/2013 10/07/19 17 Overview: She is having tingling in her left thigh, that comes and goes. Going on for a couple months , but since the last 2 weeks she has been having it all the time. Last Assessment & Plan: She is having tingling in her left thigh, that comes and goes. Going on for a couple months , but since the last 2 weeks she has been having it all the time. Urgency of urination 03/09/2013 07/11/2013 Frequency of urination 03/09/2013 4 Last Assessment & Plan: Urinary incontinence is being followed and evaluated by Dr Vazquez, she is having some urodynamic studies done. i reveiwed Dr. Fernandez notes. Obesity 03/09/2013 10/06/2016 Overview: 04/25/13 BMI 48.43. Normal BMI 18.5-25, normal weight range of 112-150 pounds in a person 5 feet 5 inches tall. Last Assessment & Plan: Gaining weight since she has not been able to exercise due to her surgeries. Nausea 02/09/2013 08/12/2016 Last Assessment & Plan: Patient has some nausea recently, is on macrobid for suspected UTI, when she came in last week. Since all her tests are negative including urine culture.i am discontinuing that SOB (shortness of breath) on exertion 02/09/2013 08/12/2016 Last Assessment & Plan: The patient has SOB which was extensively evaluated, initially it was thought to be from asthma. After seeing the family consumer science teacher and all evaluation complete it was thought to from restriction of the lungs from her weight. She also has sleep apnea, needs oxygen bled into the cpap machine, as the desaturations at night time does not normalize with out bleeding oxygen in. Today we checked her oxygen , the results are below. resting with o2 at 3liters- 91% resting room air o2 sat- 90% activity room air o2 sat- 84% activity with nc at 3liters- 91% Urinary incontinence 02/09/2013 03/28/2013 Last Assessment & Plan: Patient is having the incontinence for a month. She is on vesicare but it does not help her. Prior to this she had some leakage and dribbling but it was never this bad. She has been having a lot of accidents in the last month. She is indeed a very complex patient and i would like to refer her to a Urologist so he can evaluate her bladder dynamics. Schizophrenia 01/04/2013 02/06/2014 Overview: Dr Delaney is her psychologist . Has not seen him for a year. Patient says that the diagnosis of schizophrenia was taken off the diagnosis. Last Assessment & Plan: Patients notes indicates, that she has schizophrenia. Has been on Thorazine, haldol and invega. These drugs gave her tardive dyskinesia. She was put on tetrabenzine for it, worked miracles with her and then she got some parkinson's like features. She couldn't even feed herself. She tried the medication twice. Currently she is not on any psychotic medications. Movement disorder 12/28/2012 08/12/2016 Last Assessment & Plan: Patient is here today, sitting in front of me, very restless, constantly moving her feet, knees, things, neck, in what looks like tardive dyskinesia. It happens 2/3 times a week continues for many hours before she can get Rest from it, she said starting or increasing doses of neurontin, have not made the episodes any worse. She can talk to us without a problem and although she looks very uncomfortable to me she says he is doing fine and this will just pass. She is on requip. And recently started on Gabapentin, we are decreasing her requip. She was on haldol many years ago she says for her depression. She says she has parkinsons and told me she is taking propranolol for it. I thinks she has not got it right. She does not know of any aggravating and relieving factors for these episodes. Wheezing 11/29/2012 08/12/2016 Last Assessment & Plan: Patient is audibly wheezing right now. She recently had asthmatic bronchitis and pneumonia, said she is prone to have it. had a course of levaquin. Steroids and bronchodilators. Schizoaffective disorder 11/15/2012 017 Overview: [facility], But [facility] it according to her. Last Assessment & Plan: [facility] But they changed it according to her. Parkinson disease 11/15/2012 12/03/2017 Overview: Radha [place], [place] I went through a lot of DR. Cevallos notes [facility]. he does not seem to think she has parkinson's. She had drug induced parkinson's like symptoms that resolved when she stopped taking the inciting medications. Last Assessment & Plan: She will send me a note from him of his latest assessment. documented as of this encounter (statuses as of 11/11/2021) [facility]05-26-2017 History of Past illness Narrative* Problem Noted Date Resolved Date Post-operative pain 07/10/2016 08/12/2016 Hypomagnesemia 07/10/2016 07/10/2016 Full incontinence of feces 07/08/201607/10 Ankle instability 04/07/2016 08/12/2016 Posterior tibial tendonitis 04/07/201607/17 Trigger thumb of right hand 11/04/201507/17 Cramp in muscle 04/15/2015 08/12/2016 Primary insomnia 03/19/2015 08/12/2016 Last Assessment & Plan: Struggling with insomnia Pain in left knee 12/03/2014 08/12/2016 Overview: Patient has left knee pain , that got better with PT. Last Assessment & Plan: She is going for PT and now she feels better. significantly Weakness of left leg 11/04/2014 08/12/2016 Pain in joint, lower leg 02/19/2014 017 Tingling in extremities 10/11/2013 10/07/19 17 Overview: She is having tingling in her left thigh, that comes and goes. Going on for a couple months , but since the last 2 weeks she has been having it all the time. Last Assessment & Plan: She is having tingling in her left thigh, that comes and goes. Going on for a couple months , but since the last 2 weeks she has been having it all the time. Urgency of urination 03/09/2013 07/11/2013 Frequency of urination 03/09/2013 4 Last Assessment & Plan: Urinary incontinence is being followed and evaluated by Dr Vazquez, she is having some urodynamic studies done. i reveiwed Dr. Fernandez notes. Obesity 03/09/2013 10/06/2016 Overview: 04/25/13 BMI 48.43. Normal BMI 18.5-25, normal weight range of 112-150 pounds in a person 5 feet 5 inches tall. Last Assessment & Plan: Gaining weight since she has not been able to exercise due to her surgeries. Nausea 02/09/2013 08/12/2016 Last Assessment & Plan: Patient has some nausea recently, is on macrobid for suspected UTI, when she came in last week. Since all her tests are negative including urine culture.i am discontinuing that SOB (shortness of breath) on exertion 02/09/2013 08/12/2016 Last Assessment & Plan: The patient has SOB which was extensively evaluated, initially it was thought to be from asthma. After seeing the family consumer science teacher and all evaluation complete it was thought to from restriction of the lungs from her weight. She also has sleep apnea, needs oxygen bled into the cpap machine, as the desaturations at night time does not normalize with out bleeding oxygen in. Today we checked her oxygen , the results are below. resting with o2 at 3liters- 91% resting room air o2 sat- 90% activity room air o2 sat- 84% activity with nc at 3liters- 91% Urinary incontinence 02/09/2013 03/28/2013 Last Assessment & Plan: Patient is having the incontinence for a month. She is on vesicare but it does not help her. Prior to this she had some leakage and dribbling but it was never this bad. She has been having a lot of accidents in the last month. She is indeed a very complex patient and i would like to refer her to a Urologist so he can evaluate her bladder dynamics. Schizophrenia 01/04/2013 02/06/2014 Overview: Dr Delaney is her psychologist . Has not seen him for a year. Patient says that the diagnosis of schizophrenia was taken off the diagnosis. Last Assessment & Plan: Patients notes indicates, that she has schizophrenia. Has been on Thorazine, haldol and invega. These drugs gave her tardive dyskinesia. She was put on tetrabenzine for it, worked miracles with her and then she got some parkinson's like features. She couldn't even feed herself. She tried the medication twice. Currently she is not on any psychotic medications. Movement disorder 12/28/2012 08/12/2016 Last Assessment & Plan: Patient is here today, sitting in front of me, very restless, constantly moving her feet, knees, things, neck, in what looks like tardive dyskinesia. It happens 2/3 times a week continues for many hours before she can get Rest from it, she said starting or increasing doses of neurontin, have not made the episodes any worse. She can talk to us without a problem and although she looks very uncomfortable to me she says he is doing fine and this will just pass. She is on requip. And recently started on Gabapentin, we are decreasing her requip. She was on haldol many years ago she says for her depression. She says she has parkinsons and told me she is taking propranolol for it. I thinks she has not got it right. She does not know of any aggravating and relieving factors for these episodes. Wheezing 11/29/2012 08/12/2016 Last Assessment & Plan: Patient is audibly wheezing right now. She recently had asthmatic bronchitis and pneumonia, said she is prone to have it. had a course of levaquin. Steroids and bronchodilators. Schizoaffective disorder 11/15/2012 017 Overview: [facility] it according to her. Last Assessment & Plan: [facility], But they changed it according to her. Parkinson disease 11/15/2012 12/03/2017 Overview: Radha [place], [place] I went through a lot of DR. Cevallos notes from [facility]. he does not seem to think she has parkinson's. She had drug induced parkinson's like symptoms that resolved when she stopped taking the inciting medications. Last Assessment & Plan: She will send me a note from him of his latest assessment. documented as of this encounter (statuses as of 11/12/2021) [facility]05-[facility]-2017 History of Past illness Narrative* Problem Noted Date Resolved Date Post-operative pain 07/10/2016 08/12/2016 Hypomagnesemia 07/10/2016 07/10/2016 Full incontinence of feces 07/08/201607/10 Ankle instability 04/07/2016 08/12/2016 Posterior tibial tendonitis 04/07/201607/17 Trigger thumb of right hand 11/04/201507/17 Cramp in muscle 04/15/2015 08/12/2016 Primary insomnia 03/19/2015 08/12/2016 Last Assessment & Plan: Struggling with insomnia Pain in left knee 12/03/2014 08/12/2016 Overview: Patient has left knee pain , that got better with PT. Last Assessment & Plan: She is going for PT and now she feels better. significantly Weakness of left leg 11/04/2014 08/12/2016 Pain in joint, lower leg 02/19/2014 017 Tingling in extremities 10/11/2013 10/07/19 17 Overview: She is having tingling in her left thigh, that comes and goes. Going on for a couple months , but since the last 2 weeks she has been having it all the time. Last Assessment & Plan: She is having tingling in her left thigh, that comes and goes. Going on for a couple months , but since the last 2 weeks she has been having it all the time. Urgency of urination 03/09/2013 07/11/2013 Frequency of urination 03/09/2013 4 Last Assessment & Plan: Urinary incontinence is being followed and evaluated by Dr Vazquez, she is having some urodynamic studies done. i reveiwed Dr. Fernandez notes. Obesity 03/09/2013 10/06/2016 Overview: 04/25/13 BMI 48.43. Normal BMI 18.5-25, normal weight range of 112-150 pounds in a person 5 feet 5 inches tall. Last Assessment & Plan: Gaining weight since she has not been able to exercise due to her surgeries. Nausea 02/09/2013 08/12/2016 Last Assessment & Plan: Patient has some nausea recently, is on macrobid for suspected UTI, when she came in last week. Since all her tests are negative including urine culture.i am discontinuing that SOB (shortness of breath) on exertion 02/09/2013 08/12/2016 Last Assessment & Plan: The patient has SOB which was extensively evaluated, initially it was thought to be from asthma. After seeing the family consumer science teacher and all evaluation complete it was thought to from restriction of the lungs from her weight. She also has sleep apnea, needs oxygen bled into the cpap machine, as the desaturations at night time does not normalize with out bleeding oxygen in. Today we checked her oxygen , the results are below. resting with o2 at 3liters- 91% resting room air o2 sat- 90% activity room air o2 sat- 84% activity with nc at 3liters- 91% Urinary incontinence 02/09/2013 03/28/2013 Last Assessment & Plan: Patient is having the incontinence for a month. She is on vesicare but it does not help her. Prior to this she had some leakage and dribbling but it was never this bad. She has been having a lot of accidents in the last month. She is indeed a very complex patient and i would like to refer her to a Urologist so he can evaluate her bladder dynamics. Schizophrenia 01/04/2013 02/06/2014 Overview: Dr Delaney is her psychologist . Has not seen him for a year. Patient says that the diagnosis of schizophrenia was taken off the diagnosis. Last Assessment & Plan: Patients notes indicates, that she has schizophrenia. Has been on Thorazine, haldol and invega. These drugs gave her tardive dyskinesia. She was put on tetrabenzine for it, worked miracles with her and then she got some parkinson's like features. She couldn't even feed herself. She tried the medication twice. Currently she is not on any psychotic medications. Movement disorder 12/28/2012 08/12/2016 Last Assessment & Plan: Patient is here today, sitting in front of me, very restless, constantly moving her feet, knees, things, neck, in what looks like tardive dyskinesia. It happens 2/3 times a week continues for many hours before she can get Rest from it, she said starting or increasing doses of neurontin, have not made the episodes any worse. She can talk to us without a problem and although she looks very uncomfortable to me she says he is doing fine and this will just pass. She is on requip. And recently started on Gabapentin, we are decreasing her requip. She was on haldol many years ago she says for her depression. She says she has parkinsons and told me she is taking propranolol for it. I thinks she has not got it right. She does not know of any aggravating and relieving factors for these episodes. Wheezing 11/29/2012 08/12/2016 Last Assessment & Plan: Patient is audibly wheezing right now. She recently had asthmatic bronchitis and pneumonia, said she is prone to have it. had a course of levaquin. Steroids and bronchodilators. Schizoaffective disorder 11/15/2012 017 Overview: [facility] it according to her. Last Assessment & Plan: [facility], But they changed it according to her. Parkinson disease 11/15/2012 12/03/2017 Overview: Radha [place], [place] I went through a lot of DR[facility] Cevallos [facility]. he does not seem to think she has parkinson's. She had drug induced parkinson's like symptoms that resolved when she stopped taking the inciting medications. Last Assessment & Plan: She will send me a note from him of his latest assessment. documented as of this encounter (statuses as of 11/17/2021) [facility]05[facility]2017 History of Past illness Narrative* Problem Noted Date Resolved Date Post-operative pain 07/10/2016 08/12/2016 Hypomagnesemia 07/10/2016 07/10/2016 Full incontinence of feces 07/08/201607/10 Ankle instability 04/07/2016 08/12/2016 Posterior tibial tendonitis 04/07/201607/17 Trigger thumb of right hand 11/04/201507/17 Cramp in muscle 04/15/2015 08/12/2016 Primary insomnia 03/19/2015 08/12/2016 Last Assessment & Plan: Struggling with insomnia Pain in left knee 12/03/2014 08/12/2016 Overview: Patient has left knee pain , that got better with PT. Last Assessment & Plan: She is going for PT and now she feels better. significantly Weakness of left leg 11/04/2014 08/12/2016 Pain in joint, lower leg 02/19/2014 017 Tingling in extremities 10/11/2013 10/07/19 17 Overview: She is having tingling in her left thigh, that comes and goes. Going on for a couple months , but since the last 2 weeks she has been having it all the time. Last Assessment & Plan: She is having tingling in her left thigh, that comes and goes. Going on for a couple months , but since the last 2 weeks she has been having it all the time. Urgency of urination 03/09/2013 07/11/2013 Frequency of urination 03/09/2013 4 Last Assessment & Plan: Urinary incontinence is being followed and evaluated by Dr Vazquez, she is having some urodynamic studies done. i reveiwed Dr. Fernandez notes. Obesity 03/09/2013 10/06/2016 Overview: 04/25/13 BMI 48.43. Normal BMI 18.5-25, normal weight range of 112-150 pounds in a person 5 feet 5 inches tall. Last Assessment & Plan: Gaining weight since she has not been able to exercise due to her surgeries. Nausea 02/09/2013 08/12/2016 Last Assessment & Plan: Patient has some nausea recently, is on macrobid for suspected UTI, when she came in last week. Since all her tests are negative including urine culture.i am discontinuing that SOB (shortness of breath) on exertion 02/09/2013 08/12/2016 Last Assessment & Plan: The patient has SOB which was extensively evaluated, initially it was thought to be from asthma. After seeing the family consumer science teacher and all evaluation complete it was thought to from restriction of the lungs from her weight. She also has sleep apnea, needs oxygen bled into the cpap machine, as the desaturations at night time does not normalize with out bleeding oxygen in. Today we checked her oxygen , the results are below. resting with o2 at 3liters- 91% resting room air o2 sat- 90% activity room air o2 sat- 84% activity with nc at 3liters- 91% Urinary incontinence 02/09/2013 03/28/2013 Last Assessment & Plan: Patient is having the incontinence for a month. She is on vesicare but it does not help her. Prior to this she had some leakage and dribbling but it was never this bad. She has been having a lot of accidents in the last month. She is indeed a very complex patient and i would like to refer her to a Urologist so he can evaluate her bladder dynamics. Schizophrenia 01/04/2013 02/06/2014 Overview: Dr Delaney is her psychologist . Has not seen him for a year. Patient says that the diagnosis of schizophrenia was taken off the diagnosis. Last Assessment & Plan: Patients notes indicates, that she has schizophrenia. Has been on Thorazine, haldol and invega. These drugs gave her tardive dyskinesia. She was put on tetrabenzine for it, worked miracles with her and then she got some parkinson's like features. She couldn't even feed herself. She tried the medication twice. Currently she is not on any psychotic medications. Movement disorder 12/28/2012 08/12/2016 Last Assessment & Plan: Patient is here today, sitting in front of me, very restless, constantly moving her feet, knees, things, neck, in what looks like tardive dyskinesia. It happens 2/3 times a week continues for many hours before she can get Rest from it, she said starting or increasing doses of neurontin, have not made the episodes any worse. She can talk to us without a problem and although she looks very uncomfortable to me she says he is doing fine and this will just pass. She is on requip. And recently started on Gabapentin, we are decreasing her requip. She was on haldol many years ago she says for her depression. She says she has parkinsons and told me she is taking propranolol for it. I thinks she has not got it right. She does not know of any aggravating and relieving factors for these episodes. Wheezing 11/29/2012 08/12/2016 Last Assessment & Plan: Patient is audibly wheezing right now. She recently had asthmatic bronchitis and pneumonia, said she is prone to have it. had a course of levaquin. Steroids and bronchodilators. Schizoaffective disorder 11/15/2012 017 Overview: [facility] But [facility] it according to her. Last Assessment & Plan: [facility], But they changed it according to her. Parkinson disease 11/15/2012 12/03/2017 Overview: Radha [place], [place] I went through a lot of DR. Cevallos [facility] from [facility]. he does not seem to think she has parkinson's. She had drug induced parkinson's like symptoms that resolved when she stopped taking the inciting medications. Last Assessment & Plan: She will send me a note from him of his latest assessment. documented as of this encounter (statuses as of 11/17/2021) [facility] History of Past illness Narrative* Problem Noted Date Resolved Date Post-operative pain 07/10/2016 08/12/2016 Hypomagnesemia 07/10/2016 07/10/2016 Full incontinence of feces 07/08/201607/10 Ankle instability 04/07/2016 08/12/2016 Posterior tibial tendonitis 04/07/201607/17 Trigger thumb of right hand 11/04/201507/17 Cramp in muscle 04/15/2015 08/12/2016 Primary insomnia 03/19/2015 08/12/2016 Last Assessment & Plan: Struggling with insomnia Pain in left knee 12/03/2014 08/12/2016 Overview: Patient has left knee pain , that got better with PT. Last Assessment & Plan: She is going for PT and now she feels better. significantly Weakness of left leg 11/04/2014 08/12/2016 Pain in joint, lower leg 02/19/2014 017 Tingling in extremities 10/11/2013 10/07/19 17 Overview: She is having tingling in her left thigh, that comes and goes. Going on for a couple months , but since the last 2 weeks she has been having it all the time. Last Assessment & Plan: She is having tingling in her left thigh, that comes and goes. Going on for a couple months , but since the last 2 weeks she has been having it all the time. Urgency of urination 03/09/2013 07/11/2013 Frequency of urination 03/09/2013 4 Last Assessment & Plan: Urinary incontinence is being followed and evaluated by Dr Vazquez, she is having some urodynamic studies done. i reveiwed Dr. Fernandez notes. Obesity 03/09/2013 10/06/2016 Overview: 04/25/13 BMI 48.43. Normal BMI 18.5-25, normal weight range of 112-150 pounds in a person 5 feet 5 inches tall. Last Assessment & Plan: Gaining weight since she has not been able to exercise due to her surgeries. Nausea 02/09/2013 08/12/2016 Last Assessment & Plan: Patient has some nausea recently, is on macrobid for suspected UTI, when she came in last week. Since all her tests are negative including urine culture.i am discontinuing that SOB (shortness of breath) on exertion 02/09/2013 08/12/2016 Last Assessment & Plan: The patient has SOB which was extensively evaluated, initially it was thought to be from asthma. After seeing the family consumer science teacher and all evaluation complete it was thought to from restriction of the lungs from her weight. She also has sleep apnea, needs oxygen bled into the cpap machine, as the desaturations at night time does not normalize with out bleeding oxygen in. Today we checked her oxygen , the results are below. resting with o2 at 3liters- 91% resting room air o2 sat- 90% activity room air o2 sat- 84% activity with nc at 3liters- 91% Urinary incontinence 02/09/2013 03/28/2013 Last Assessment & Plan: Patient is having the incontinence for a month. She is on vesicare but it does not help her. Prior to this she had some leakage and dribbling but it was never this bad. She has been having a lot of accidents in the last month. She is indeed a very complex patient and i would like to refer her to a Urologist so he can evaluate her bladder dynamics. Schizophrenia 01/04/2013 02/06/2014 Overview: Dr Delaney is her psychologist . Has not seen him for a year. Patient says that the diagnosis of schizophrenia was taken off the diagnosis. Last Assessment & Plan: Patients notes indicates, that she has schizophrenia. Has been on Thorazine, haldol and invega. These drugs gave her tardive dyskinesia. She was put on tetrabenzine for it, worked miracles with her and then she got some parkinson's like features. She couldn't even feed herself. She tried the medication twice. Currently she is not on any psychotic medications. Movement disorder 12/28/2012 08/12/2016 Last Assessment & Plan: Patient is here today, sitting in front of me, very restless, constantly moving her feet, knees, things, neck, in what looks like tardive dyskinesia. It happens 2/3 times a week continues for many hours before she can get Rest from it, she said starting or increasing doses of neurontin, have not made the episodes any worse. She can talk to us without a problem and although she looks very uncomfortable to me she says he is doing fine and this will just pass. She is on requip. And recently started on Gabapentin, we are decreasing her requip. She was on haldol many years ago she says for her depression. She says she has parkinsons and told me she is taking propranolol for it. I thinks she has not got it right. She does not know of any aggravating and relieving factors for these episodes. Wheezing 11/29/2012 08/12/2016 Last Assessment & Plan: Patient is audibly wheezing right now. She recently had asthmatic bronchitis and pneumonia, said she is prone to have it. had a course of levaquin. Steroids and bronchodilators. Schizoaffective disorder 11/15/2012 017 Overview: [facility] But [facility] it according to her. Last Assessment & Plan: [facility], But they changed it according to her. Parkinson disease 11/15/2012 12/03/2017 Overview: [place], [place] I went through a lot of [facility]. [facility]evallos [facility] from [facility]. he does not seem to think she has parkinson's. She had drug induced parkinson's like symptoms that resolved when she stopped taking the inciting medications. Last Assessment & Plan: She will send me a note from him of his latest assessment. documented as of this encounter (statuses as of 11/17/2021) [facility] History of Past illness Narrative* Problem Noted Date Resolved Date Post-operative pain 07/10/2016 08/12/2016 Hypomagnesemia 07/10/2016 07/10/2016 Full incontinence of feces 07/08/201607/10 Ankle instability 04/07/2016 08/12/2016 Posterior tibial tendonitis 04/07/201607/17 Trigger thumb of right hand 11/04/201507/17 Cramp in muscle 04/15/2015 08/12/2016 Primary insomnia 03/19/2015 08/12/2016 Last Assessment & Plan: Struggling with insomnia Pain in left knee 12/03/2014 08/12/2016 Overview: Patient has left knee pain , that got better with PT. Last Assessment & Plan: She is going for PT and now she feels better. significantly Weakness of left leg 11/04/2014 08/12/2016 Pain in joint, lower leg 02/19/2014 017 Tingling in extremities 10/11/2013 10/07/19 17 Overview: She is having tingling in her left thigh, that comes and goes. Going on for a couple months , but since the last 2 weeks she has been having it all the time. Last Assessment & Plan: She is having tingling in her left thigh, that comes and goes. Going on for a couple months , but since the last 2 weeks she has been having it all the time. Urgency of urination 03/09/2013 07/11/2013 Frequency of urination 03/09/2013 4 Last Assessment & Plan: Urinary incontinence is being followed and evaluated by Dr Vazquez, she is having some urodynamic studies done. i reveiwed Dr. Fernandez notes. Obesity 03/09/2013 10/06/2016 Overview: 04/25/13 BMI 48.43. Normal BMI 18.5-25, normal weight range of 112-150 pounds in a person 5 feet 5 inches tall. Last Assessment & Plan: Gaining weight since she has not been able to exercise due to her surgeries. Nausea 02/09/2013 08/12/2016 Last Assessment & Plan: Patient has some nausea recently, is on macrobid for suspected UTI, when she came in last week. Since all her tests are negative including urine culture.i am discontinuing that SOB (shortness of breath) on exertion 02/09/2013 08/12/2016 Last Assessment & Plan: The patient has SOB which was extensively evaluated, initially it was thought to be from asthma. After seeing the family consumer science teacher and all evaluation complete it was thought to from restriction of the lungs from her weight. She also has sleep apnea, needs oxygen bled into the cpap machine, as the desaturations at night time does not normalize with out bleeding oxygen in. Today we checked her oxygen , the results are below. resting with o2 at 3liters- 91% resting room air o2 sat- 90% activity room air o2 sat- 84% activity with nc at 3liters- 91% Urinary incontinence 02/09/2013 03/28/2013 Last Assessment & Plan: Patient is having the incontinence for a month. She is on vesicare but it does not help her. Prior to this she had some leakage and dribbling but it was never this bad. She has been having a lot of accidents in the last month. She is indeed a very complex patient and i would like to refer her to a Urologist so he can evaluate her bladder dynamics. Schizophrenia 01/04/2013 02/06/2014 Overview: Dr Delaney is her psychologist . Has not seen him for a year. Patient says that the diagnosis of schizophrenia was taken off the diagnosis. Last Assessment & Plan: Patients notes indicates, that she has schizophrenia. Has been on Thorazine, haldol and invega. These drugs gave her tardive dyskinesia. She was put on tetrabenzine for it, worked miracles with her and then she got some parkinson's like features. She couldn't even feed herself. She tried the medication twice. Currently she is not on any psychotic medications. Movement disorder 12/28/2012 08/12/2016 Last Assessment & Plan: Patient is here today, sitting in front of me, very restless, constantly moving her feet, knees, things, neck, in what looks like tardive dyskinesia. It happens 2/3 times a week continues for many hours before she can get Rest from it, she said starting or increasing doses of neurontin, have not made the episodes any worse. She can talk to us without a problem and although she looks very uncomfortable to me she says he is doing fine and this will just pass. She is on requip. And recently started on Gabapentin, we are decreasing her requip. She was on haldol many years ago she says for her depression. She says she has parkinsons and told me she is taking propranolol for it. I thinks she has not got it right. She does not know of any aggravating and relieving factors for these episodes. Wheezing 11/29/2012 08/12/2016 Last Assessment & Plan: Patient is audibly wheezing right now. She recently had asthmatic bronchitis and pneumonia, said she is prone to have it. had a course of levaquin. Steroids and bronchodilators. Schizoaffective disorder 11/15/2012 017 Overview: [facility] But [facility] it according to her. Last Assessment & Plan: [facility], But they changed it according to her. Parkinson disease 11/15/2012 12/03/2017 Overview: Radha [place], [place] I went through a lot of DR. Cevallos [facility]. he does not seem to think she has parkinson's. She had drug induced parkinson's like symptoms that resolved when she stopped taking the inciting medications. Last Assessment & Plan: She will send me a note from him of his latest assessment. documented as of this encounter (statuses as of 11/20/2021) [facility]05-26-2017 History of Past illness Narrative* Problem Noted Date Resolved Date Post-operative pain 07/10/2016 08/12/2016 Hypomagnesemia 07/10/2016 07/10/2016 Full incontinence of feces 07/08/201607/10 Ankle instability 04/07/2016 08/12/2016 Posterior tibial tendonitis 04/07/201607/17 Trigger thumb of right hand 11/04/201507/17 Cramp in muscle 04/15/2015 08/12/2016 Primary insomnia 03/19/2015 08/12/2016 Last Assessment & Plan: Struggling with insomnia Pain in left knee 12/03/2014 08/12/2016 Overview: Patient has left knee pain , that got better with PT. Last Assessment & Plan: She is going for PT and now she feels better. significantly Weakness of left leg 11/04/2014 08/12/2016 Pain in joint, lower leg 02/19/2014 017 Tingling in extremities 10/11/2013 10/07/19 17 Overview: She is having tingling in her left thigh, that comes and goes. Going on for a couple months , but since the last 2 weeks she has been having it all the time. Last Assessment & Plan: She is having tingling in her left thigh, that comes and goes. Going on for a couple months , but since the last 2 weeks she has been having it all the time. Urgency of urination 03/09/2013 07/11/2013 Frequency of urination 03/09/2013 4 Last Assessment & Plan: Urinary incontinence is being followed and evaluated by Dr Vazquez, she is having some urodynamic studies done. i reveiwed Dr. Fernandez notes. Obesity 03/09/2013 10/06/2016 Overview: 04/25/13 BMI 48.43. Normal BMI 18.5-25, normal weight range of 112-150 pounds in a person 5 feet 5 inches tall. Last Assessment & Plan: Gaining weight since she has not been able to exercise due to her surgeries. Nausea 02/09/2013 08/12/2016 Last Assessment & Plan: Patient has some nausea recently, is on macrobid for suspected UTI, when she came in last week. Since all her tests are negative including urine culture.i am discontinuing that SOB (shortness of breath) on exertion 02/09/2013 08/12/2016 Last Assessment & Plan: The patient has SOB which was extensively evaluated, initially it was thought to be from asthma. After seeing the family consumer science teacher and all evaluation complete it was thought to from restriction of the lungs from her weight. She also has sleep apnea, needs oxygen bled into the cpap machine, as the desaturations at night time does not normalize with out bleeding oxygen in. Today we checked her oxygen , the results are below. resting with o2 at 3liters- 91% resting room air o2 sat- 90% activity room air o2 sat- 84% activity with nc at 3liters- 91% Urinary incontinence 02/09/2013 03/28/2013 Last Assessment & Plan: Patient is having the incontinence for a month. She is on vesicare but it does not help her. Prior to this she had some leakage and dribbling but it was never this bad. She has been having a lot of accidents in the last month. She is indeed a very complex patient and i would like to refer her to a Urologist so he can evaluate her bladder dynamics. Schizophrenia 01/04/2013 02/06/2014 Overview: Dr Delaney is her psychologist . Has not seen him for a year. Patient says that the diagnosis of schizophrenia was taken off the diagnosis. Last Assessment & Plan: Patients notes indicates, that she has schizophrenia. Has been on Thorazine, haldol and invega. These drugs gave her tardive dyskinesia. She was put on tetrabenzine for it, worked miracles with her and then she got some parkinson's like features. She couldn't even feed herself. She tried the medication twice. Currently she is not on any psychotic medications. Movement disorder 12/28/2012 08/12/2016 Last Assessment & Plan: Patient is here today, sitting in front of me, very restless, constantly moving her feet, knees, things, neck, in what looks like tardive dyskinesia. It happens 2/3 times a week continues for many hours before she can get Rest from it, she said starting or increasing doses of neurontin, have not made the episodes any worse. She can talk to us without a problem and although she looks very uncomfortable to me she says he is doing fine and this will just pass. She is on requip. And recently started on Gabapentin, we are decreasing her requip. She was on haldol many years ago she says for her depression. She says she has parkinsons and told me she is taking propranolol for it. I thinks she has not got it right. She does not know of any aggravating and relieving factors for these episodes. Wheezing 11/29/2012 08/12/2016 Last Assessment & Plan: Patient is audibly wheezing right now. She recently had asthmatic bronchitis and pneumonia, said she is prone to have it. had a course of levaquin. Steroids and bronchodilators. Schizoaffective disorder 11/15/2012 017 Overview: [facility] But [facility] it according to her. Last Assessment & Plan: [facility], But they changed it according to her. Parkinson disease 11/15/2012 12/03/2017 Overview: Radha [place], [place] I went through a lot of DR. Cevallos notes from [facility]. he does not seem to think she has parkinson's. She had drug induced parkinson's like symptoms that resolved when she stopped taking the inciting medications. Last Assessment & Plan: She will send me a note from him of his latest assessment. documented as of this encounter (statuses as of 11/21/2021) [facility]05-[facility]2017 History of Past illness Narrative* Problem Noted Date Resolved Date Post-operative pain 07/10/2016 08/12/2016 Hypomagnesemia 07/10/2016 07/10/2016 Full incontinence of feces 07/08/201607/10 Ankle instability 04/07/2016 08/12/2016 Posterior tibial tendonitis 04/07/201607/17 Trigger thumb of right hand 11/04/201507/17 Cramp in muscle 04/15/2015 08/12/2016 Primary insomnia 03/19/2015 08/12/2016 Last Assessment & Plan: Struggling with insomnia Pain in left knee 12/03/2014 08/12/2016 Overview: Patient has left knee pain , that got better with PT. Last Assessment & Plan: She is going for PT and now she feels better. significantly Weakness of left leg 11/04/2014 08/12/2016 Pain in joint, lower leg 02/19/2014 017 Tingling in extremities 10/11/2013 10/07/19 17 Overview: She is having tingling in her left thigh, that comes and goes. Going on for a couple months , but since the last 2 weeks she has been having it all the time. Last Assessment & Plan: She is having tingling in her left thigh, that comes and goes. Going on for a couple months , but since the last 2 weeks she has been having it all the time. Urgency of urination 03/09/2013 07/11/2013 Frequency of urination 03/09/2013 4 Last Assessment & Plan: Urinary incontinence is being followed and evaluated by Dr Vazquez, she is having some urodynamic studies done. i reveiwed Dr. Fernandez notes. Obesity 03/09/2013 10/06/2016 Overview: 04/25/13 BMI 48.43. Normal BMI 18.5-25, normal weight range of 112-150 pounds in a person 5 feet 5 inches tall. Last Assessment & Plan: Gaining weight since she has not been able to exercise due to her surgeries. Nausea 02/09/2013 08/12/2016 Last Assessment & Plan: Patient has some nausea recently, is on macrobid for suspected UTI, when she came in last week. Since all her tests are negative including urine culture.i am discontinuing that SOB (shortness of breath) on exertion 02/09/2013 08/12/2016 Last Assessment & Plan: The patient has SOB which was extensively evaluated, initially it was thought to be from asthma. After seeing the family consumer science teacher and all evaluation complete it was thought to from restriction of the lungs from her weight. She also has sleep apnea, needs oxygen bled into the cpap machine, as the desaturations at night time does not normalize with out bleeding oxygen in. Today we checked her oxygen , the results are below. resting with o2 at 3liters- 91% resting room air o2 sat- 90% activity room air o2 sat- 84% activity with nc at 3liters- 91% Urinary incontinence 02/09/2013 03/28/2013 Last Assessment & Plan: Patient is having the incontinence for a month. She is on vesicare but it does not help her. Prior to this she had some leakage and dribbling but it was never this bad. She has been having a lot of accidents in the last month. She is indeed a very complex patient and i would like to refer her to a Urologist so he can evaluate her bladder dynamics. Schizophrenia 01/04/2013 02/06/2014 Overview: Dr Delaney is her psychologist . Has not seen him for a year. Patient says that the diagnosis of schizophrenia was taken off the diagnosis. Last Assessment & Plan: Patients notes indicates, that she has schizophrenia. Has been on Thorazine, haldol and invega. These drugs gave her tardive dyskinesia. She was put on tetrabenzine for it, worked miracles with her and then she got some parkinson's like features. She couldn't even feed herself. She tried the medication twice. Currently she is not on any psychotic medications. Movement disorder 12/28/2012 08/12/2016 Last Assessment & Plan: Patient is here today, sitting in front of me, very restless, constantly moving her feet, knees, things, neck, in what looks like tardive dyskinesia. It happens 2/3 times a week continues for many hours before she can get Rest from it, she said starting or increasing doses of neurontin, have not made the episodes any worse. She can talk to us without a problem and although she looks very uncomfortable to me she says he is doing fine and this will just pass. She is on requip. And recently started on Gabapentin, we are decreasing her requip. She was on haldol many years ago she says for her depression. She says she has parkinsons and told me she is taking propranolol for it. I thinks she has not got it right. She does not know of any aggravating and relieving factors for these episodes. Wheezing 11/29/2012 08/12/2016 Last Assessment & Plan: Patient is audibly wheezing right now. She recently had asthmatic bronchitis and pneumonia, said she is prone to have it. had a course of levaquin. Steroids and bronchodilators. Schizoaffective disorder 11/15/2012 017 Overview: [facility] But [facility] it according to her. Last Assessment & Plan: [facility], But they changed it according to her. Parkinson disease 11/15/2012 12/03/2017 Overview: Radha [place], [place] I went through a lot of [facility]allos [facility]. he does not seem to think she has parkinson's. She had drug induced parkinson's like symptoms that resolved when she stopped taking the inciting medications. Last Assessment & Plan: She will send me a note from him of his latest assessment. documented as of this encounter (statuses as of 11/21/2021) [facility]05[facility]2017 History of Past illness Narrative* Problem Noted Date Resolved Date Post-operative pain 07/10/2016 08/12/2016 Hypomagnesemia 07/10/2016 07/10/2016 Full incontinence of feces 07/08/201607/10 Ankle instability 04/07/2016 08/12/2016 Posterior tibial tendonitis 04/07/201607/17 Trigger thumb of right hand 11/04/201507/17 Cramp in muscle 04/15/2015 08/12/2016 Primary insomnia 03/19/2015 08/12/2016 Last Assessment & Plan: Struggling with insomnia Pain in left knee 12/03/2014 08/12/2016 Overview: Patient has left knee pain , that got better with PT. Last Assessment & Plan: She is going for PT and now she feels better. significantly Weakness of left leg 11/04/2014 08/12/2016 Pain in joint, lower leg 02/19/2014 017 Tingling in extremities 10/11/2013 10/07/19 17 Overview: She is having tingling in her left thigh, that comes and goes. Going on for a couple months , but since the last 2 weeks she has been having it all the time. Last Assessment & Plan: She is having tingling in her left thigh, that comes and goes. Going on for a couple months , but since the last 2 weeks she has been having it all the time. Urgency of urination 03/09/2013 07/11/2013 Frequency of urination 03/09/2013 4 Last Assessment & Plan: Urinary incontinence is being followed and evaluated by Dr Vazquez, she is having some urodynamic studies done. i reveiwed Dr. Fernandez notes. Obesity 03/09/2013 10/06/2016 Overview: 04/25/13 BMI 48.43. Normal BMI 18.5-25, normal weight range of 112-150 pounds in a person 5 feet 5 inches tall. Last Assessment & Plan: Gaining weight since she has not been able to exercise due to her surgeries. Nausea 02/09/2013 08/12/2016 Last Assessment & Plan: Patient has some nausea recently, is on macrobid for suspected UTI, when she came in last week. Since all her tests are negative including urine culture.i am discontinuing that SOB (shortness of breath) on exertion 02/09/2013 08/12/2016 Last Assessment & Plan: The patient has SOB which was extensively evaluated, initially it was thought to be from asthma. After seeing the family consumer science teacher and all evaluation complete it was thought to from restriction of the lungs from her weight. She also has sleep apnea, needs oxygen bled into the cpap machine, as the desaturations at night time does not normalize with out bleeding oxygen in. Today we checked her oxygen , the results are below. resting with o2 at 3liters- 91% resting room air o2 sat- 90% activity room air o2 sat- 84% activity with nc at 3liters- 91% Urinary incontinence 02/09/2013 03/28/2013 Last Assessment & Plan: Patient is having the incontinence for a month. She is on vesicare but it does not help her. Prior to this she had some leakage and dribbling but it was never this bad. She has been having a lot of accidents in the last month. She is indeed a very complex patient and i would like to refer her to a Urologist so he can evaluate her bladder dynamics. Schizophrenia 01/04/2013 02/06/2014 Overview: Dr Delaney is her psychologist . Has not seen him for a year. Patient says that the diagnosis of schizophrenia was taken off the diagnosis. Last Assessment & Plan: Patients notes indicates, that she has schizophrenia. Has been on Thorazine, haldol and invega. These drugs gave her tardive dyskinesia. She was put on tetrabenzine for it, worked miracles with her and then she got some parkinson's like features. She couldn't even feed herself. She tried the medication twice. Currently she is not on any psychotic medications. Movement disorder 12/28/2012 08/12/2016 Last Assessment & Plan: Patient is here today, sitting in front of me, very restless, constantly moving her feet, knees, things, neck, in what looks like tardive dyskinesia. It happens 2/3 times a week continues for many hours before she can get Rest from it, she said starting or increasing doses of neurontin, have not made the episodes any worse. She can talk to us without a problem and although she looks very uncomfortable to me she says he is doing fine and this will just pass. She is on requip. And recently started on Gabapentin, we are decreasing her requip. She was on haldol many years ago she says for her depression. She says she has parkinsons and told me she is taking propranolol for it. I thinks she has not got it right. She does not know of any aggravating and relieving factors for these episodes. Wheezing 11/29/2012 08/12/2016 Last Assessment & Plan: Patient is audibly wheezing right now. She recently had asthmatic bronchitis and pneumonia, said she is prone to have it. had a course of levaquin. Steroids and bronchodilators. Schizoaffective disorder 11/15/2012 017 Overview: [facility] But [facility] it according to her. Last Assessment & Plan: [facility], But they changed it according to her. Parkinson disease 11/15/2012 12/03/2017 Overview: Rad[place], [place] I went through a lot of [facility]allos [facility]. he does not seem to think she has parkinson's. She had drug induced parkinson's like symptoms that resolved when she stopped taking the inciting medications. Last Assessment & Plan: She will send me a note from him of his latest assessment. documented as of this encounter (statuses as of 11/24/2021) [facility] History of Past illness Narrative* Problem Noted Date Resolved Date Post-operative pain 07/10/2016 08/12/2016 Hypomagnesemia 07/10/2016 07/10/2016 Full incontinence of feces 07/08/201607/10 Ankle instability 04/07/2016 08/12/2016 Posterior tibial tendonitis 04/07/201607/17 Trigger thumb of right hand 11/04/201507/17 Cramp in muscle 04/15/2015 08/12/2016 Primary insomnia 03/19/2015 08/12/2016 Last Assessment & Plan: Struggling with insomnia Pain in left knee 12/03/2014 08/12/2016 Overview: Patient has left knee pain , that got better with PT. Last Assessment & Plan: She is going for PT and now she feels better. significantly Weakness of left leg 11/04/2014 08/12/2016 Pain in joint, lower leg 02/19/2014 017 Tingling in extremities 10/11/2013 10/07/19 17 Overview: She is having tingling in her left thigh, that comes and goes. Going on for a couple months , but since the last 2 weeks she has been having it all the time. Last Assessment & Plan: She is having tingling in her left thigh, that comes and goes. Going on for a couple months , but since the last 2 weeks she has been having it all the time. Urgency of urination 03/09/2013 07/11/2013 Frequency of urination 03/09/2013 4 Last Assessment & Plan: Urinary incontinence is being followed and evaluated by Dr Vazquez, she is having some urodynamic studies done. i reveiwed Dr. Fernandez notes. Obesity 03/09/2013 10/06/2016 Overview: 04/25/13 BMI 48.43. Normal BMI 18.5-25, normal weight range of 112-150 pounds in a person 5 feet 5 inches tall. Last Assessment & Plan: Gaining weight since she has not been able to exercise due to her surgeries. Nausea 02/09/2013 08/12/2016 Last Assessment & Plan: Patient has some nausea recently, is on macrobid for suspected UTI, when she came in last week. Since all her tests are negative including urine culture.i am discontinuing that SOB (shortness of breath) on exertion 02/09/2013 08/12/2016 Last Assessment & Plan: The patient has SOB which was extensively evaluated, initially it was thought to be from asthma. After seeing the family consumer science teacher and all evaluation complete it was thought to from restriction of the lungs from her weight. She also has sleep apnea, needs oxygen bled into the cpap machine, as the desaturations at night time does not normalize with out bleeding oxygen in. Today we checked her oxygen , the results are below. resting with o2 at 3liters- 91% resting room air o2 sat- 90% activity room air o2 sat- 84% activity with nc at 3liters- 91% Urinary incontinence 02/09/2013 03/28/2013 Last Assessment & Plan: Patient is having the incontinence for a month. She is on vesicare but it does not help her. Prior to this she had some leakage and dribbling but it was never this bad. She has been having a lot of accidents in the last month. She is indeed a very complex patient and i would like to refer her to a Urologist so he can evaluate her bladder dynamics. Schizophrenia 01/04/2013 02/06/2014 Overview: Dr Delaney is her psychologist . Has not seen him for a year. Patient says that the diagnosis of schizophrenia was taken off the diagnosis. Last Assessment & Plan: Patients notes indicates, that she has schizophrenia. Has been on Thorazine, haldol and invega. These drugs gave her tardive dyskinesia. She was put on tetrabenzine for it, worked miracles with her and then she got some parkinson's like features. She couldn't even feed herself. She tried the medication twice. Currently she is not on any psychotic medications. Movement disorder 12/28/2012 08/12/2016 Last Assessment & Plan: Patient is here today, sitting in front of me, very restless, constantly moving her feet, knees, things, neck, in what looks like tardive dyskinesia. It happens 2/3 times a week continues for many hours before she can get Rest from it, she said starting or increasing doses of neurontin, have not made the episodes any worse. She can talk to us without a problem and although she looks very uncomfortable to me she says he is doing fine and this will just pass. She is on requip. And recently started on Gabapentin, we are decreasing her requip. She was on haldol many years ago she says for her depression. She says she has parkinsons and told me she is taking propranolol for it. I thinks she has not got it right. She does not know of any aggravating and relieving factors for these episodes. Wheezing 11/29/2012 08/12/2016 Last Assessment & Plan: Patient is audibly wheezing right now. She recently had asthmatic bronchitis and pneumonia, said she is prone to have it. had a course of levaquin. Steroids and bronchodilators. Schizoaffective disorder 11/15/2012 017 Overview: [facility] But [facility] it according to her. Last Assessment & Plan: [facility], But they changed it according to her. Parkinson disease 11/15/2012 12/03/2017 Overview: [place], [place] I went through a lot of [facility]allos [facility]. he does not seem to think she has parkinson's. She had drug induced parkinson's like symptoms that resolved when she stopped taking the inciting medications. Last Assessment & Plan: She will send me a note from him of his latest assessment. documented as of this encounter (statuses as of 11/26/2021) [facility]05-26-2017 History of Past illness Narrative* Problem Noted Date Resolved Date Post-operative pain 07/10/2016 08/12/2016 Hypomagnesemia 07/10/2016 07/10/2016 Full incontinence of feces 07/08/201607/10 Ankle instability 04/07/2016 08/12/2016 Posterior tibial tendonitis 04/07/201607/17 Trigger thumb of right hand 11/04/201507/17 Cramp in muscle 04/15/2015 08/12/2016 Primary insomnia 03/19/2015 08/12/2016 Last Assessment & Plan: Struggling with insomnia Pain in left knee 12/03/2014 08/12/2016 Overview: Patient has left knee pain , that got better with PT. Last Assessment & Plan: She is going for PT and now she feels better. significantly Weakness of left leg 11/04/2014 08/12/2016 Pain in joint, lower leg 02/19/2014 017 Tingling in extremities 10/11/2013 10/07/19 17 Overview: She is having tingling in her left thigh, that comes and goes. Going on for a couple months , but since the last 2 weeks she has been having it all the time. Last Assessment & Plan: She is having tingling in her left thigh, that comes and goes. Going on for a couple months , but since the last 2 weeks she has been having it all the time. Urgency of urination 03/09/2013 07/11/2013 Frequency of urination 03/09/2013 4 Last Assessment & Plan: Urinary incontinence is being followed and evaluated by Dr Vazquez, she is having some urodynamic studies done. i reveiwed Dr. Fernandez notes. Obesity 03/09/2013 10/06/2016 Overview: 04/25/13 BMI 48.43. Normal BMI 18.5-25, normal weight range of 112-150 pounds in a person 5 feet 5 inches tall. Last Assessment & Plan: Gaining weight since she has not been able to exercise due to her surgeries. Nausea 02/09/2013 08/12/2016 Last Assessment & Plan: Patient has some nausea recently, is on macrobid for suspected UTI, when she came in last week. Since all her tests are negative including urine culture.i am discontinuing that SOB (shortness of breath) on exertion 02/09/2013 08/12/2016 Last Assessment & Plan: The patient has SOB which was extensively evaluated, initially it was thought to be from asthma. After seeing the family consumer science teacher and all evaluation complete it was thought to from restriction of the lungs from her weight. She also has sleep apnea, needs oxygen bled into the cpap machine, as the desaturations at night time does not normalize with out bleeding oxygen in. Today we checked her oxygen , the results are below. resting with o2 at 3liters- 91% resting room air o2 sat- 90% activity room air o2 sat- 84% activity with nc at 3liters- 91% Urinary incontinence 02/09/2013 03/28/2013 Last Assessment & Plan: Patient is having the incontinence for a month. She is on vesicare but it does not help her. Prior to this she had some leakage and dribbling but it was never this bad. She has been having a lot of accidents in the last month. She is indeed a very complex patient and i would like to refer her to a Urologist so he can evaluate her bladder dynamics. Schizophrenia 01/04/2013 02/06/2014 Overview: Dr Delaney is her psychologist . Has not seen him for a year. Patient says that the diagnosis of schizophrenia was taken off the diagnosis. Last Assessment & Plan: Patients notes indicates, that she has schizophrenia. Has been on Thorazine, haldol and invega. These drugs gave her tardive dyskinesia. She was put on tetrabenzine for it, worked miracles with her and then she got some parkinson's like features. She couldn't even feed herself. She tried the medication twice. Currently she is not on any psychotic medications. Movement disorder 12/28/2012 08/12/2016 Last Assessment & Plan: Patient is here today, sitting in front of me, very restless, constantly moving her feet, knees, things, neck, in what looks like tardive dyskinesia. It happens 2/3 times a week continues for many hours before she can get Rest from it, she said starting or increasing doses of neurontin, have not made the episodes any worse. She can talk to us without a problem and although she looks very uncomfortable to me she says he is doing fine and this will just pass. She is on requip. And recently started on Gabapentin, we are decreasing her requip. She was on haldol many years ago she says for her depression. She says she has parkinsons and told me she is taking propranolol for it. I thinks she has not got it right. She does not know of any aggravating and relieving factors for these episodes. Wheezing 11/29/2012 08/12/2016 Last Assessment & Plan: Patient is audibly wheezing right now. She recently had asthmatic bronchitis and pneumonia, said she is prone to have it. had a course of levaquin. Steroids and bronchodilators. Schizoaffective disorder 11/15/2012 017 Overview: [facility] But [facility] it according to her. Last Assessment & Plan: [facility], But they changed it according to her. Parkinson disease 11/15/2012 12/03/2017 Overview: [place], [place] I went through a lot of DR. Cevallos [facility]. he does not seem to think she has parkinson's. She had drug induced parkinson's like symptoms that resolved when she stopped taking the inciting medications. Last Assessment & Plan: She will send me a note from him of his latest assessment. documented as of this encounter (statuses as of 11/28/2021) [facility]05-[facility]2017 History of Past illness Narrative* Problem Noted Date Resolved Date Post-operative pain 07/10/2016 08/12/2016 Hypomagnesemia 07/10/2016 07/10/2016 Full incontinence of feces 07/08/201607/10 Ankle instability 04/07/2016 08/12/2016 Posterior tibial tendonitis 04/07/201607/17 Trigger thumb of right hand 11/04/201507/17 Cramp in muscle 04/15/2015 08/12/2016 Primary insomnia 03/19/2015 08/12/2016 Last Assessment & Plan: Struggling with insomnia Pain in left knee 12/03/2014 08/12/2016 Overview: Patient has left knee pain , that got better with PT. Last Assessment & Plan: She is going for PT and now she feels better. significantly Weakness of left leg 11/04/2014 08/12/2016 Pain in joint, lower leg 02/19/2014 017 Tingling in extremities 10/11/2013 10/07/19 17 Overview: She is having tingling in her left thigh, that comes and goes. Going on for a couple months , but since the last 2 weeks she has been having it all the time. Last Assessment & Plan: She is having tingling in her left thigh, that comes and goes. Going on for a couple months , but since the last 2 weeks she has been having it all the time. Urgency of urination 03/09/2013 07/11/2013 Frequency of urination 03/09/2013 4 Last Assessment & Plan: Urinary incontinence is being followed and evaluated by Dr Vazquez, she is having some urodynamic studies done. i reveiwed Dr. Fernandez notes. Obesity 03/09/2013 10/06/2016 Overview: 04/25/13 BMI 48.43. Normal BMI 18.5-25, normal weight range of 112-150 pounds in a person 5 feet 5 inches tall. Last Assessment & Plan: Gaining weight since she has not been able to exercise due to her surgeries. Nausea 02/09/2013 08/12/2016 Last Assessment & Plan: Patient has some nausea recently, is on macrobid for suspected UTI, when she came in last week. Since all her tests are negative including urine culture.i am discontinuing that SOB (shortness of breath) on exertion 02/09/2013 08/12/2016 Last Assessment & Plan: The patient has SOB which was extensively evaluated, initially it was thought to be from asthma. After seeing the family consumer science teacher and all evaluation complete it was thought to from restriction of the lungs from her weight. She also has sleep apnea, needs oxygen bled into the cpap machine, as the desaturations at night time does not normalize with out bleeding oxygen in. Today we checked her oxygen , the results are below. resting with o2 at 3liters- 91% resting room air o2 sat- 90% activity room air o2 sat- 84% activity with nc at 3liters- 91% Urinary incontinence 02/09/2013 03/28/2013 Last Assessment & Plan: Patient is having the incontinence for a month. She is on vesicare but it does not help her. Prior to this she had some leakage and dribbling but it was never this bad. She has been having a lot of accidents in the last month. She is indeed a very complex patient and i would like to refer her to a Urologist so he can evaluate her bladder dynamics. Schizophrenia 01/04/2013 02/06/2014 Overview: Dr Delaney is her psychologist . Has not seen him for a year. Patient says that the diagnosis of schizophrenia was taken off the diagnosis. Last Assessment & Plan: Patients notes indicates, that she has schizophrenia. Has been on Thorazine, haldol and invega. These drugs gave her tardive dyskinesia. She was put on tetrabenzine for it, worked miracles with her and then she got some parkinson's like features. She couldn't even feed herself. She tried the medication twice. Currently she is not on any psychotic medications. Movement disorder 12/28/2012 08/12/2016 Last Assessment & Plan: Patient is here today, sitting in front of me, very restless, constantly moving her feet, knees, things, neck, in what looks like tardive dyskinesia. It happens 2/3 times a week continues for many hours before she can get Rest from it, she said starting or increasing doses of neurontin, have not made the episodes any worse. She can talk to us without a problem and although she looks very uncomfortable to me she says he is doing fine and this will just pass. She is on requip. And recently started on Gabapentin, we are decreasing her requip. She was on haldol many years ago she says for her depression. She says she has parkinsons and told me she is taking propranolol for it. I thinks she has not got it right. She does not know of any aggravating and relieving factors for these episodes. Wheezing 11/29/2012 08/12/2016 Last Assessment & Plan: Patient is audibly wheezing right now. She recently had asthmatic bronchitis and pneumonia, said she is prone to have it. had a course of levaquin. Steroids and bronchodilators. Schizoaffective disorder 11/15/2012 017 Overview: [facility] But [facility] it according to her. Last Assessment & Plan: [facility], But they changed it according to her. Parkinson disease 11/15/2012 12/03/2017 Overview: [place], [place] I went through a lot of DR. Cevallos notes from [facility]. he does not seem to think she has parkinson's. She had drug induced parkinson's like symptoms that resolved when she stopped taking the inciting medications. Last Assessment & Plan: She will send me a note from him of his latest assessment. documented as of this encounter (statuses as of 12/04/2021) [facility]05[facility]2017 History of Past illness Narrative* Problem Noted Date Resolved Date Post-operative pain 07/10/2016 08/12/2016 Hypomagnesemia 07/10/2016 07/10/2016 Full incontinence of feces 07/08/201607/10 Ankle instability 04/07/2016 08/12/2016 Posterior tibial tendonitis 04/07/201607/17 Trigger thumb of right hand 11/04/201507/17 Cramp in muscle 04/15/2015 08/12/2016 Primary insomnia 03/19/2015 08/12/2016 Last Assessment & Plan: Struggling with insomnia Pain in left knee 12/03/2014 08/12/2016 Overview: Patient has left knee pain , that got better with PT. Last Assessment & Plan: She is going for PT and now she feels better. significantly Weakness of left leg 11/04/2014 08/12/2016 Pain in joint, lower leg 02/19/2014 017 Tingling in extremities 10/11/2013 10/07/19 17 Overview: She is having tingling in her left thigh, that comes and goes. Going on for a couple months , but since the last 2 weeks she has been having it all the time. Last Assessment & Plan: She is having tingling in her left thigh, that comes and goes. Going on for a couple months , but since the last 2 weeks she has been having it all the time. Urgency of urination 03/09/2013 07/11/2013 Frequency of urination 03/09/2013 4 Last Assessment & Plan: Urinary incontinence is being followed and evaluated by Dr Vazquez, she is having some urodynamic studies done. i reveiwed Dr. Fernandez notes. Obesity 03/09/2013 10/06/2016 Overview: 04/25/13 BMI 48.43. Normal BMI 18.5-25, normal weight range of 112-150 pounds in a person 5 feet 5 inches tall. Last Assessment & Plan: Gaining weight since she has not been able to exercise due to her surgeries. Nausea 02/09/2013 08/12/2016 Last Assessment & Plan: Patient has some nausea recently, is on macrobid for suspected UTI, when she came in last week. Since all her tests are negative including urine culture.i am discontinuing that SOB (shortness of breath) on exertion 02/09/2013 08/12/2016 Last Assessment & Plan: The patient has SOB which was extensively evaluated, initially it was thought to be from asthma. After seeing the family consumer science teacher and all evaluation complete it was thought to from restriction of the lungs from her weight. She also has sleep apnea, needs oxygen bled into the cpap machine, as the desaturations at night time does not normalize with out bleeding oxygen in. Today we checked her oxygen , the results are below. resting with o2 at 3liters- 91% resting room air o2 sat- 90% activity room air o2 sat- 84% activity with nc at 3liters- 91% Urinary incontinence 02/09/2013 03/28/2013 Last Assessment & Plan: Patient is having the incontinence for a month. She is on vesicare but it does not help her. Prior to this she had some leakage and dribbling but it was never this bad. She has been having a lot of accidents in the last month. She is indeed a very complex patient and i would like to refer her to a Urologist so he can evaluate her bladder dynamics. Schizophrenia 01/04/2013 02/06/2014 Overview: Dr Delaney is her psychologist . Has not seen him for a year. Patient says that the diagnosis of schizophrenia was taken off the diagnosis. Last Assessment & Plan: Patients notes indicates, that she has schizophrenia. Has been on Thorazine, haldol and invega. These drugs gave her tardive dyskinesia. She was put on tetrabenzine for it, worked miracles with her and then she got some parkinson's like features. She couldn't even feed herself. She tried the medication twice. Currently she is not on any psychotic medications. Movement disorder 12/28/2012 08/12/2016 Last Assessment & Plan: Patient is here today, sitting in front of me, very restless, constantly moving her feet, knees, things, neck, in what looks like tardive dyskinesia. It happens 2/3 times a week continues for many hours before she can get Rest from it, she said starting or increasing doses of neurontin, have not made the episodes any worse. She can talk to us without a problem and although she looks very uncomfortable to me she says he is doing fine and this will just pass. She is on requip. And recently started on Gabapentin, we are decreasing her requip. She was on haldol many years ago she says for her depression. She says she has parkinsons and told me she is taking propranolol for it. I thinks she has not got it right. She does not know of any aggravating and relieving factors for these episodes. Wheezing 11/29/2012 08/12/2016 Last Assessment & Plan: Patient is audibly wheezing right now. She recently had asthmatic bronchitis and pneumonia, said she is prone to have it. had a course of levaquin. Steroids and bronchodilators. Schizoaffective disorder 11/15/2012 017 Overview: [facility] it according to her. Last Assessment & Plan: [facility], But they changed it according to her. Parkinson disease 11/15/2012 12/03/2017 Overview: [place], [place] I went through a lot of [facility]allos [facility]. he does not seem to think she has parkinson's. She had drug induced parkinson's like symptoms that resolved when she stopped taking the inciting medications. Last Assessment & Plan: She will send me a note from him of his latest assessment. documented as of this encounter (statuses as of 12/08/2021) [facility] History of Past illness Narrative* Problem Noted Date Resolved Date Post-operative pain 07/10/2016 08/12/2016 Hypomagnesemia 07/10/2016 07/10/2016 Full incontinence of feces 07/08/201607/10 Ankle instability 04/07/2016 08/12/2016 Posterior tibial tendonitis 04/07/201607/17 Trigger thumb of right hand 11/04/201507/17 Cramp in muscle 04/15/2015 08/12/2016 Primary insomnia 03/19/2015 08/12/2016 Last Assessment & Plan: Struggling with insomnia Pain in left knee 12/03/2014 08/12/2016 Overview: Patient has left knee pain , that got better with PT. Last Assessment & Plan: She is going for PT and now she feels better. significantly Weakness of left leg 11/04/2014 08/12/2016 Pain in joint, lower leg 02/19/2014 017 Tingling in extremities 10/11/2013 10/07/19 17 Overview: She is having tingling in her left thigh, that comes and goes. Going on for a couple months , but since the last 2 weeks she has been having it all the time. Last Assessment & Plan: She is having tingling in her left thigh, that comes and goes. Going on for a couple months , but since the last 2 weeks she has been having it all the time. Urgency of urination 03/09/2013 07/11/2013 Frequency of urination 03/09/2013 4 Last Assessment & Plan: Urinary incontinence is being followed and evaluated by Dr Vazquez, she is having some urodynamic studies done. i reveiwed Dr. Fernandez notes. Obesity 03/09/2013 10/06/2016 Overview: 04/25/13 BMI 48.43. Normal BMI 18.5-25, normal weight range of 112-150 pounds in a person 5 feet 5 inches tall. Last Assessment & Plan: Gaining weight since she has not been able to exercise due to her surgeries. Nausea 02/09/2013 08/12/2016 Last Assessment & Plan: Patient has some nausea recently, is on macrobid for suspected UTI, when she came in last week. Since all her tests are negative including urine culture.i am discontinuing that SOB (shortness of breath) on exertion 02/09/2013 08/12/2016 Last Assessment & Plan: The patient has SOB which was extensively evaluated, initially it was thought to be from asthma. After seeing the family consumer science teacher and all evaluation complete it was thought to from restriction of the lungs from her weight. She also has sleep apnea, needs oxygen bled into the cpap machine, as the desaturations at night time does not normalize with out bleeding oxygen in. Today we checked her oxygen , the results are below. resting with o2 at 3liters- 91% resting room air o2 sat- 90% activity room air o2 sat- 84% activity with nc at 3liters- 91% Urinary incontinence 02/09/2013 03/28/2013 Last Assessment & Plan: Patient is having the incontinence for a month. She is on vesicare but it does not help her. Prior to this she had some leakage and dribbling but it was never this bad. She has been having a lot of accidents in the last month. She is indeed a very complex patient and i would like to refer her to a Urologist so he can evaluate her bladder dynamics. Schizophrenia 01/04/2013 02/06/2014 Overview: Dr Delaney is her psychologist . Has not seen him for a year. Patient says that the diagnosis of schizophrenia was taken off the diagnosis. Last Assessment & Plan: Patients notes indicates, that she has schizophrenia. Has been on Thorazine, haldol and invega. These drugs gave her tardive dyskinesia. She was put on tetrabenzine for it, worked miracles with her and then she got some parkinson's like features. She couldn't even feed herself. She tried the medication twice. Currently she is not on any psychotic medications. Movement disorder 12/28/2012 08/12/2016 Last Assessment & Plan: Patient is here today, sitting in front of me, very restless, constantly moving her feet, knees, things, neck, in what looks like tardive dyskinesia. It happens 2/3 times a week continues for many hours before she can get Rest from it, she said starting or increasing doses of neurontin, have not made the episodes any worse. She can talk to us without a problem and although she looks very uncomfortable to me she says he is doing fine and this will just pass. She is on requip. And recently started on Gabapentin, we are decreasing her requip. She was on haldol many years ago she says for her depression. She says she has parkinsons and told me she is taking propranolol for it. I thinks she has not got it right. She does not know of any aggravating and relieving factors for these episodes. Wheezing 11/29/2012 08/12/2016 Last Assessment & Plan: Patient is audibly wheezing right now. She recently had asthmatic bronchitis and pneumonia, said she is prone to have it. had a course of levaquin. Steroids and bronchodilators. Schizoaffective disorder 11/15/2012 017 Overview: [facility] according to her. Last Assessment & Plan: [facility], But they changed it according to her. Parkinson disease 11/15/2012 12/03/2017 Overview: [place], [place] I went through a lot of [facility]allos [facility]. he does not seem to think she has parkinson's. She had drug induced parkinson's like symptoms that resolved when she stopped taking the inciting medications. Last Assessment & Plan: She will send me a note from him of his latest assessment. documented as of this encounter (statuses as of 12/10/2021) [facility] History of Past illness Narrative* Problem Noted Date Resolved Date Post-operative pain 07/10/2016 08/12/2016 Hypomagnesemia 07/10/2016 07/10/2016 Full incontinence of feces 07/08/201607/10 Ankle instability 04/07/2016 08/12/2016 Posterior tibial tendonitis 04/07/201607/17 Trigger thumb of right hand 11/04/201507/17 Cramp in muscle 04/15/2015 08/12/2016 Primary insomnia 03/19/2015 08/12/2016 Last Assessment & Plan: Struggling with insomnia Pain in left knee 12/03/2014 08/12/2016 Overview: Patient has left knee pain , that got better with PT. Last Assessment & Plan: She is going for PT and now she feels better. significantly Weakness of left leg 11/04/2014 08/12/2016 Pain in joint, lower leg 02/19/2014 017 Tingling in extremities 10/11/2013 10/07/19 17 Overview: She is having tingling in her left thigh, that comes and goes. Going on for a couple months , but since the last 2 weeks she has been having it all the time. Last Assessment & Plan: She is having tingling in her left thigh, that comes and goes. Going on for a couple months , but since the last 2 weeks she has been having it all the time. Urgency of urination 03/09/2013 07/11/2013 Frequency of urination 03/09/2013 4 Last Assessment & Plan: Urinary incontinence is being followed and evaluated by Dr Vazquez, she is having some urodynamic studies done. i reveiwed Dr. Fernandez notes. Obesity 03/09/2013 10/06/2016 Overview: 04/25/13 BMI 48.43. Normal BMI 18.5-25, normal weight range of 112-150 pounds in a person 5 feet 5 inches tall. Last Assessment & Plan: Gaining weight since she has not been able to exercise due to her surgeries. Nausea 02/09/2013 08/12/2016 Last Assessment & Plan: Patient has some nausea recently, is on macrobid for suspected UTI, when she came in last week. Since all her tests are negative including urine culture.i am discontinuing that SOB (shortness of breath) on exertion 02/09/2013 08/12/2016 Last Assessment & Plan: The patient has SOB which was extensively evaluated, initially it was thought to be from asthma. After seeing the family consumer science teacher and all evaluation complete it was thought to from restriction of the lungs from her weight. She also has sleep apnea, needs oxygen bled into the cpap machine, as the desaturations at night time does not normalize with out bleeding oxygen in. Today we checked her oxygen , the results are below. resting with o2 at 3liters- 91% resting room air o2 sat- 90% activity room air o2 sat- 84% activity with nc at 3liters- 91% Urinary incontinence 02/09/2013 03/28/2013 Last Assessment & Plan: Patient is having the incontinence for a month. She is on vesicare but it does not help her. Prior to this she had some leakage and dribbling but it was never this bad. She has been having a lot of accidents in the last month. She is indeed a very complex patient and i would like to refer her to a Urologist so he can evaluate her bladder dynamics. Schizophrenia 01/04/2013 02/06/2014 Overview: Dr Delaney is her psychologist . Has not seen him for a year. Patient says that the diagnosis of schizophrenia was taken off the diagnosis. Last Assessment & Plan: Patients notes indicates, that she has schizophrenia. Has been on Thorazine, haldol and invega. These drugs gave her tardive dyskinesia. She was put on tetrabenzine for it, worked miracles with her and then she got some parkinson's like features. She couldn't even feed herself. She tried the medication twice. Currently she is not on any psychotic medications. Movement disorder 12/28/2012 08/12/2016 Last Assessment & Plan: Patient is here today, sitting in front of me, very restless, constantly moving her feet, knees, things, neck, in what looks like tardive dyskinesia. It happens 2/3 times a week continues for many hours before she can get Rest from it, she said starting or increasing doses of neurontin, have not made the episodes any worse. She can talk to us without a problem and although she looks very uncomfortable to me she says he is doing fine and this will just pass. She is on requip. And recently started on Gabapentin, we are decreasing her requip. She was on haldol many years ago she says for her depression. She says she has parkinsons and told me she is taking propranolol for it. I thinks she has not got it right. She does not know of any aggravating and relieving factors for these episodes. Wheezing 11/29/2012 08/12/2016 Last Assessment & Plan: Patient is audibly wheezing right now. She recently had asthmatic bronchitis and pneumonia, said she is prone to have it. had a course of levaquin. Steroids and bronchodilators. Schizoaffective disorder 11/15/2012 017 Overview: [facility] But [facility] it according to her. Last Assessment & Plan: [facility], But they changed it according to her. Parkinson disease 11/15/2012 12/03/2017 Overview: Radha [place], [place] I went through a lot of DR[facility] Cevallos [facility]. he does not seem to think she has parkinson's. She had drug induced parkinson's like symptoms that resolved when she stopped taking the inciting medications. Last Assessment & Plan: She will send me a note from him of his latest assessment. documented as of this encounter (statuses as of 12/11/2021) [facility]05-[facility]2017 History of Past illness Narrative* Problem Noted Date Resolved Date Post-operative pain 07/10/2016 08/12/2016 Hypomagnesemia 07/10/2016 07/10/2016 Full incontinence of feces 07/08/201607/10 Ankle instability 04/07/2016 08/12/2016 Posterior tibial tendonitis 04/07/201607/17 Trigger thumb of right hand 11/04/201507/17 Cramp in muscle 04/15/2015 08/12/2016 Primary insomnia 03/19/2015 08/12/2016 Last Assessment & Plan: Struggling with insomnia Pain in left knee 12/03/2014 08/12/2016 Overview: Patient has left knee pain , that got better with PT. Last Assessment & Plan: She is going for PT and now she feels better. significantly Weakness of left leg 11/04/2014 08/12/2016 Pain in joint, lower leg 02/19/2014 017 Tingling in extremities 10/11/2013 10/07/19 17 Overview: She is having tingling in her left thigh, that comes and goes. Going on for a couple months , but since the last 2 weeks she has been having it all the time. Last Assessment & Plan: She is having tingling in her left thigh, that comes and goes. Going on for a couple months , but since the last 2 weeks she has been having it all the time. Urgency of urination 03/09/2013 07/11/2013 Frequency of urination 03/09/2013 4 Last Assessment & Plan: Urinary incontinence is being followed and evaluated by Dr Vazquez, she is having some urodynamic studies done. i reveiwed Dr. Fernandez notes. Obesity 03/09/2013 10/06/2016 Overview: 04/25/13 BMI 48.43. Normal BMI 18.5-25, normal weight range of 112-150 pounds in a person 5 feet 5 inches tall. Last Assessment & Plan: Gaining weight since she has not been able to exercise due to her surgeries. Nausea 02/09/2013 08/12/2016 Last Assessment & Plan: Patient has some nausea recently, is on macrobid for suspected UTI, when she came in last week. Since all her tests are negative including urine culture.i am discontinuing that SOB (shortness of breath) on exertion 02/09/2013 08/12/2016 Last Assessment & Plan: The patient has SOB which was extensively evaluated, initially it was thought to be from asthma. After seeing the family consumer science teacher and all evaluation complete it was thought to from restriction of the lungs from her weight. She also has sleep apnea, needs oxygen bled into the cpap machine, as the desaturations at night time does not normalize with out bleeding oxygen in. Today we checked her oxygen , the results are below. resting with o2 at 3liters- 91% resting room air o2 sat- 90% activity room air o2 sat- 84% activity with nc at 3liters- 91% Urinary incontinence 02/09/2013 03/28/2013 Last Assessment & Plan: Patient is having the incontinence for a month. She is on vesicare but it does not help her. Prior to this she had some leakage and dribbling but it was never this bad. She has been having a lot of accidents in the last month. She is indeed a very complex patient and i would like to refer her to a Urologist so he can evaluate her bladder dynamics. Schizophrenia 01/04/2013 02/06/2014 Overview: Dr Delaney is her psychologist . Has not seen him for a year. Patient says that the diagnosis of schizophrenia was taken off the diagnosis. Last Assessment & Plan: Patients notes indicates, that she has schizophrenia. Has been on Thorazine, haldol and invega. These drugs gave her tardive dyskinesia. She was put on tetrabenzine for it, worked miracles with her and then she got some parkinson's like features. She couldn't even feed herself. She tried the medication twice. Currently she is not on any psychotic medications. Movement disorder 12/28/2012 08/12/2016 Last Assessment & Plan: Patient is here today, sitting in front of me, very restless, constantly moving her feet, knees, things, neck, in what looks like tardive dyskinesia. It happens 2/3 times a week continues for many hours before she can get Rest from it, she said starting or increasing doses of neurontin, have not made the episodes any worse. She can talk to us without a problem and although she looks very uncomfortable to me she says he is doing fine and this will just pass. She is on requip. And recently started on Gabapentin, we are decreasing her requip. She was on haldol many years ago she says for her depression. She says she has parkinsons and told me she is taking propranolol for it. I thinks she has not got it right. She does not know of any aggravating and relieving factors for these episodes. Wheezing 11/29/2012 08/12/2016 Last Assessment & Plan: Patient is audibly wheezing right now. She recently had asthmatic bronchitis and pneumonia, said she is prone to have it. had a course of levaquin. Steroids and bronchodilators. Schizoaffective disorder 11/15/2012 017 Overview: [facility] But [facility] it according to her. Last Assessment & Plan: [facility], But they changed it according to her. Parkinson disease 11/15/2012 12/03/2017 Overview: Radha [place], [place] I went through a lot of DR. Cevallos notes [facility]. he does not seem to think she has parkinson's. She had drug induced parkinson's like symptoms that resolved when she stopped taking the inciting medications. Last Assessment & Plan: She will send me a note from him of his latest assessment. documented as of this encounter (statuses as of 12/15/2021) [facility]2017 History of Past illness Narrative* Problem Noted Date Resolved Date Post-operative pain 07/10/2016 08/12/2016 Hypomagnesemia 07/10/2016 07/10/2016 Full incontinence of feces 07/08/201607/10 Ankle instability 04/07/2016 08/12/2016 Posterior tibial tendonitis 04/07/201607/17 Trigger thumb of right hand 11/04/201507/17 Cramp in muscle 04/15/2015 08/12/2016 Primary insomnia 03/19/2015 08/12/2016 Last Assessment & Plan: Struggling with insomnia Pain in left knee 12/03/2014 08/12/2016 Overview: Patient has left knee pain , that got better with PT. Last Assessment & Plan: She is going for PT and now she feels better. significantly Weakness of left leg 11/04/2014 08/12/2016 Pain in joint, lower leg 02/19/2014 017 Tingling in extremities 10/11/2013 10/07/19 17 Overview: She is having tingling in her left thigh, that comes and goes. Going on for a couple months , but since the last 2 weeks she has been having it all the time. Last Assessment & Plan: She is having tingling in her left thigh, that comes and goes. Going on for a couple months , but since the last 2 weeks she has been having it all the time. Urgency of urination 03/09/2013 07/11/2013 Frequency of urination 03/09/2013 4 Last Assessment & Plan: Urinary incontinence is being followed and evaluated by Dr Vazquez, she is having some urodynamic studies done. i reveiwed Dr. Fernandez notes. Obesity 03/09/2013 10/06/2016 Overview: 04/25/13 BMI 48.43. Normal BMI 18.5-25, normal weight range of 112-150 pounds in a person 5 feet 5 inches tall. Last Assessment & Plan: Gaining weight since she has not been able to exercise due to her surgeries. Nausea 02/09/2013 08/12/2016 Last Assessment & Plan: Patient has some nausea recently, is on macrobid for suspected UTI, when she came in last week. Since all her tests are negative including urine culture.i am discontinuing that SOB (shortness of breath) on exertion 02/09/2013 08/12/2016 Last Assessment & Plan: The patient has SOB which was extensively evaluated, initially it was thought to be from asthma. After seeing the family consumer science teacher and all evaluation complete it was thought to from restriction of the lungs from her weight. She also has sleep apnea, needs oxygen bled into the cpap machine, as the desaturations at night time does not normalize with out bleeding oxygen in. Today we checked her oxygen , the results are below. resting with o2 at 3liters- 91% resting room air o2 sat- 90% activity room air o2 sat- 84% activity with nc at 3liters- 91% Urinary incontinence 02/09/2013 03/28/2013 Last Assessment & Plan: Patient is having the incontinence for a month. She is on vesicare but it does not help her. Prior to this she had some leakage and dribbling but it was never this bad. She has been having a lot of accidents in the last month. She is indeed a very complex patient and i would like to refer her to a Urologist so he can evaluate her bladder dynamics. Schizophrenia 01/04/2013 02/06/2014 Overview: Dr Delaney is her psychologist . Has not seen him for a year. Patient says that the diagnosis of schizophrenia was taken off the diagnosis. Last Assessment & Plan: Patients notes indicates, that she has schizophrenia. Has been on Thorazine, haldol and invega. These drugs gave her tardive dyskinesia. She was put on tetrabenzine for it, worked miracles with her and then she got some parkinson's like features. She couldn't even feed herself. She tried the medication twice. Currently she is not on any psychotic medications. Movement disorder 12/28/2012 08/12/2016 Last Assessment & Plan: Patient is here today, sitting in front of me, very restless, constantly moving her feet, knees, things, neck, in what looks like tardive dyskinesia. It happens 2/3 times a week continues for many hours before she can get Rest from it, she said starting or increasing doses of neurontin, have not made the episodes any worse. She can talk to us without a problem and although she looks very uncomfortable to me she says he is doing fine and this will just pass. She is on requip. And recently started on Gabapentin, we are decreasing her requip. She was on haldol many years ago she says for her depression. She says she has parkinsons and told me she is taking propranolol for it. I thinks she has not got it right. She does not know of any aggravating and relieving factors for these episodes. Wheezing 11/29/2012 08/12/2016 Last Assessment & Plan: Patient is audibly wheezing right now. She recently had asthmatic bronchitis and pneumonia, said she is prone to have it. had a course of levaquin. Steroids and bronchodilators. Schizoaffective disorder 11/15/2012 05/09/2 017 Overview: [facility] But [facility] it according to her. Last Assessment & Plan: [facility], But they changed it according to her. Parkinson disease 11/15/2012 12/03/2017 Overview: Radha [place], [place] I went through a lot of [facility]lalos [facility]. he does not seem to think she has parkinson's. She had drug induced parkinson's like symptoms that resolved when she stopped taking the inciting medications. Last Assessment & Plan: She will send me a note from him of his latest assessment. documented as of this encounter (statuses as of 12/16/2021) [facility]2017 History of Past illness Narrative* Problem Noted Date Resolved Date Post-operative pain 07/10/2016 08/12/2016 Hypomagnesemia 07/10/2016 07/10/2016 Full incontinence of feces 07/08/201607/10 Ankle instability 04/07/2016 08/12/2016 Posterior tibial tendonitis 04/07/201607/17 Trigger thumb of right hand 11/04/201507/17 Cramp in muscle 04/15/2015 08/12/2016 Primary insomnia 03/19/2015 08/12/2016 Last Assessment & Plan: Struggling with insomnia Pain in left knee 12/03/2014 08/12/2016 Overview: Patient has left knee pain , that got better with PT. Last Assessment & Plan: She is going for PT and now she feels better. significantly Weakness of left leg 11/04/2014 08/12/2016 Pain in joint, lower leg 02/19/2014 017 Tingling in extremities 10/11/2013 10/07/19 17 Overview: She is having tingling in her left thigh, that comes and goes. Going on for a couple months , but since the last 2 weeks she has been having it all the time. Last Assessment & Plan: She is having tingling in her left thigh, that comes and goes. Going on for a couple months , but since the last 2 weeks she has been having it all the time. Urgency of urination 03/09/2013 07/11/2013 Frequency of urination 03/09/2013 4 Last Assessment & Plan: Urinary incontinence is being followed and evaluated by Dr Vazquez, she is having some urodynamic studies done. i reveiwed Dr. Fernandez notes. Obesity 03/09/2013 10/06/2016 Overview: 04/25/13 BMI 48.43. Normal BMI 18.5-25, normal weight range of 112-150 pounds in a person 5 feet 5 inches tall. Last Assessment & Plan: Gaining weight since she has not been able to exercise due to her surgeries. Nausea 02/09/2013 08/12/2016 Last Assessment & Plan: Patient has some nausea recently, is on macrobid for suspected UTI, when she came in last week. Since all her tests are negative including urine culture.i am discontinuing that SOB (shortness of breath) on exertion 02/09/2013 08/12/2016 Last Assessment & Plan: The patient has SOB which was extensively evaluated, initially it was thought to be from asthma. After seeing the family consumer science teacher and all evaluation complete it was thought to from restriction of the lungs from her weight. She also has sleep apnea, needs oxygen bled into the cpap machine, as the desaturations at night time does not normalize with out bleeding oxygen in. Today we checked her oxygen , the results are below. resting with o2 at 3liters- 91% resting room air o2 sat- 90% activity room air o2 sat- 84% activity with nc at 3liters- 91% Urinary incontinence 02/09/2013 03/28/2013 Last Assessment & Plan: Patient is having the incontinence for a month. She is on vesicare but it does not help her. Prior to this she had some leakage and dribbling but it was never this bad. She has been having a lot of accidents in the last month. She is indeed a very complex patient and i would like to refer her to a Urologist so he can evaluate her bladder dynamics. Schizophrenia 01/04/2013 02/06/2014 Overview: Dr Delaney is her psychologist . Has not seen him for a year. Patient says that the diagnosis of schizophrenia was taken off the diagnosis. Last Assessment & Plan: Patients notes indicates, that she has schizophrenia. Has been on Thorazine, haldol and invega. These drugs gave her tardive dyskinesia. She was put on tetrabenzine for it, worked miracles with her and then she got some parkinson's like features. She couldn't even feed herself. She tried the medication twice. Currently she is not on any psychotic medications. Movement disorder 12/28/2012 08/12/2016 Last Assessment & Plan: Patient is here today, sitting in front of me, very restless, constantly moving her feet, knees, things, neck, in what looks like tardive dyskinesia. It happens 2/3 times a week continues for many hours before she can get Rest from it, she said starting or increasing doses of neurontin, have not made the episodes any worse. She can talk to us without a problem and although she looks very uncomfortable to me she says he is doing fine and this will just pass. She is on requip. And recently started on Gabapentin, we are decreasing her requip. She was on haldol many years ago she says for her depression. She says she has parkinsons and told me she is taking propranolol for it. I thinks she has not got it right. She does not know of any aggravating and relieving factors for these episodes. Wheezing 11/29/2012 08/12/2016 Last Assessment & Plan: Patient is audibly wheezing right now. She recently had asthmatic bronchitis and pneumonia, said she is prone to have it. had a course of levaquin. Steroids and bronchodilators. Schizoaffective disorder 11/15/2012 017 Overview: [facility] according to her. Last Assessment & Plan: [facility], But they changed it according to her. Parkinson disease 11/15/2012 12/03/2017 Overview: [place], [place] I went through a lot of [facility]allos [facility]. he does not seem to think she has parkinson's. She had drug induced parkinson's like symptoms that resolved when she stopped taking the inciting medications. Last Assessment & Plan: She will send me a note from him of his latest assessment. documented as of this encounter (statuses as of 12/18/2021) [facility] History of Past illness Narrative* Problem Noted Date Resolved Date Post-operative pain 07/10/2016 08/12/2016 Hypomagnesemia 07/10/2016 07/10/2016 Full incontinence of feces 07/08/201607/10 Ankle instability 04/07/2016 08/12/2016 Posterior tibial tendonitis 04/07/201607/17 Trigger thumb of right hand 11/04/201507/17 Cramp in muscle 04/15/2015 08/12/2016 Primary insomnia 03/19/2015 08/12/2016 Last Assessment & Plan: Struggling with insomnia Pain in left knee 12/03/2014 08/12/2016 Overview: Patient has left knee pain , that got better with PT. Last Assessment & Plan: She is going for PT and now she feels better. significantly Weakness of left leg 11/04/2014 08/12/2016 Pain in joint, lower leg 02/19/2014 017 Tingling in extremities 10/11/2013 10/07/19 17 Overview: She is having tingling in her left thigh, that comes and goes. Going on for a couple months , but since the last 2 weeks she has been having it all the time. Last Assessment & Plan: She is having tingling in her left thigh, that comes and goes. Going on for a couple months , but since the last 2 weeks she has been having it all the time. Urgency of urination 03/09/2013 07/11/2013 Frequency of urination 03/09/2013 4 Last Assessment & Plan: Urinary incontinence is being followed and evaluated by Dr Vazquez, she is having some urodynamic studies done. i reveiwed Dr. Fernandez notes. Obesity 03/09/2013 10/06/2016 Overview: 04/25/13 BMI 48.43. Normal BMI 18.5-25, normal weight range of 112-150 pounds in a person 5 feet 5 inches tall. Last Assessment & Plan: Gaining weight since she has not been able to exercise due to her surgeries. Nausea 02/09/2013 08/12/2016 Last Assessment & Plan: Patient has some nausea recently, is on macrobid for suspected UTI, when she came in last week. Since all her tests are negative including urine culture.i am discontinuing that SOB (shortness of breath) on exertion 02/09/2013 08/12/2016 Last Assessment & Plan: The patient has SOB which was extensively evaluated, initially it was thought to be from asthma. After seeing the family consumer science teacher and all evaluation complete it was thought to from restriction of the lungs from her weight. She also has sleep apnea, needs oxygen bled into the cpap machine, as the desaturations at night time does not normalize with out bleeding oxygen in. Today we checked her oxygen , the results are below. resting with o2 at 3liters- 91% resting room air o2 sat- 90% activity room air o2 sat- 84% activity with nc at 3liters- 91% Urinary incontinence 02/09/2013 03/28/2013 Last Assessment & Plan: Patient is having the incontinence for a month. She is on vesicare but it does not help her. Prior to this she had some leakage and dribbling but it was never this bad. She has been having a lot of accidents in the last month. She is indeed a very complex patient and i would like to refer her to a Urologist so he can evaluate her bladder dynamics. Schizophrenia 01/04/2013 02/06/2014 Overview: Dr Delaney is her psychologist . Has not seen him for a year. Patient says that the diagnosis of schizophrenia was taken off the diagnosis. Last Assessment & Plan: Patients notes indicates, that she has schizophrenia. Has been on Thorazine, haldol and invega. These drugs gave her tardive dyskinesia. She was put on tetrabenzine for it, worked miracles with her and then she got some parkinson's like features. She couldn't even feed herself. She tried the medication twice. Currently she is not on any psychotic medications. Movement disorder 12/28/2012 08/12/2016 Last Assessment & Plan: Patient is here today, sitting in front of me, very restless, constantly moving her feet, knees, things, neck, in what looks like tardive dyskinesia. It happens 2/3 times a week continues for many hours before she can get Rest from it, she said starting or increasing doses of neurontin, have not made the episodes any worse. She can talk to us without a problem and although she looks very uncomfortable to me she says he is doing fine and this will just pass. She is on requip. And recently started on Gabapentin, we are decreasing her requip. She was on haldol many years ago she says for her depression. She says she has parkinsons and told me she is taking propranolol for it. I thinks she has not got it right. She does not know of any aggravating and relieving factors for these episodes. Wheezing 11/29/2012 08/12/2016 Last Assessment & Plan: Patient is audibly wheezing right now. She recently had asthmatic bronchitis and pneumonia, said she is prone to have it. had a course of levaquin. Steroids and bronchodilators. Schizoaffective disorder 11/15/2012 017 Overview: [facility] But [facility] it according to her. Last Assessment & Plan: [facility], But they changed it according to her. Parkinson disease 11/15/2012 12/03/2017 Overview: [place], [place] I went through a lot of [facility]allos [facility]. he does not seem to think she has parkinson's. She had drug induced parkinson's like symptoms that resolved when she stopped taking the inciting medications. Last Assessment & Plan: She will send me a note from him of his latest assessment. documented as of this encounter (statuses as of 12/22/2021) [facility] History of Past illness Narrative* Problem Noted Date Resolved Date Post-operative pain 07/10/2016 08/12/2016 Hypomagnesemia 07/10/2016 07/10/2016 Full incontinence of feces 07/08/201607/10 Ankle instability 04/07/2016 08/12/2016 Posterior tibial tendonitis 04/07/201607/17 Trigger thumb of right hand 11/04/201507/17 Cramp in muscle 04/15/2015 08/12/2016 Primary insomnia 03/19/2015 08/12/2016 Last Assessment & Plan: Struggling with insomnia Pain in left knee 12/03/2014 08/12/2016 Overview: Patient has left knee pain , that got better with PT. Last Assessment & Plan: She is going for PT and now she feels better. significantly Weakness of left leg 11/04/2014 08/12/2016 Pain in joint, lower leg 02/19/2014 017 Tingling in extremities 10/11/2013 10/07/19 17 Overview: She is having tingling in her left thigh, that comes and goes. Going on for a couple months , but since the last 2 weeks she has been having it all the time. Last Assessment & Plan: She is having tingling in her left thigh, that comes and goes. Going on for a couple months , but since the last 2 weeks she has been having it all the time. Urgency of urination 03/09/2013 07/11/2013 Frequency of urination 03/09/2013 4 Last Assessment & Plan: Urinary incontinence is being followed and evaluated by Dr Vazquez, she is having some urodynamic studies done. i reveiwed Dr. Fernandez notes. Obesity 03/09/2013 10/06/2016 Overview: 04/25/13 BMI 48.43. Normal BMI 18.5-25, normal weight range of 112-150 pounds in a person 5 feet 5 inches tall. Last Assessment & Plan: Gaining weight since she has not been able to exercise due to her surgeries. Nausea 02/09/2013 08/12/2016 Last Assessment & Plan: Patient has some nausea recently, is on macrobid for suspected UTI, when she came in last week. Since all her tests are negative including urine culture.i am discontinuing that SOB (shortness of breath) on exertion 02/09/2013 08/12/2016 Last Assessment & Plan: The patient has SOB which was extensively evaluated, initially it was thought to be from asthma. After seeing the family consumer science teacher and all evaluation complete it was thought to from restriction of the lungs from her weight. She also has sleep apnea, needs oxygen bled into the cpap machine, as the desaturations at night time does not normalize with out bleeding oxygen in. Today we checked her oxygen , the results are below. resting with o2 at 3liters- 91% resting room air o2 sat- 90% activity room air o2 sat- 84% activity with nc at 3liters- 91% Urinary incontinence 02/09/2013 03/28/2013 Last Assessment & Plan: Patient is having the incontinence for a month. She is on vesicare but it does not help her. Prior to this she had some leakage and dribbling but it was never this bad. She has been having a lot of accidents in the last month. She is indeed a very complex patient and i would like to refer her to a Urologist so he can evaluate her bladder dynamics. Schizophrenia 01/04/2013 02/06/2014 Overview: Dr Delaney is her psychologist . Has not seen him for a year. Patient says that the diagnosis of schizophrenia was taken off the diagnosis. Last Assessment & Plan: Patients notes indicates, that she has schizophrenia. Has been on Thorazine, haldol and invega. These drugs gave her tardive dyskinesia. She was put on tetrabenzine for it, worked miracles with her and then she got some parkinson's like features. She couldn't even feed herself. She tried the medication twice. Currently she is not on any psychotic medications. Movement disorder 12/28/2012 08/12/2016 Last Assessment & Plan: Patient is here today, sitting in front of me, very restless, constantly moving her feet, knees, things, neck, in what looks like tardive dyskinesia. It happens 2/3 times a week continues for many hours before she can get Rest from it, she said starting or increasing doses of neurontin, have not made the episodes any worse. She can talk to us without a problem and although she looks very uncomfortable to me she says he is doing fine and this will just pass. She is on requip. And recently started on Gabapentin, we are decreasing her requip. She was on haldol many years ago she says for her depression. She says she has parkinsons and told me she is taking propranolol for it. I thinks she has not got it right. She does not know of any aggravating and relieving factors for these episodes. Wheezing 11/29/2012 08/12/2016 Last Assessment & Plan: Patient is audibly wheezing right now. She recently had asthmatic bronchitis and pneumonia, said she is prone to have it. had a course of levaquin. Steroids and bronchodilators. Schizoaffective disorder 11/15/2012 017 Overview: [facility] But [facility] it according to her. Last Assessment & Plan: [facility], But they changed it according to her. Parkinson disease 11/15/2012 12/03/2017 Overview: Rad[place], [place] I went through a lot of DR[facility] Cevallos [facility]. he does not seem to think she has parkinson's. She had drug induced parkinson's like symptoms that resolved when she stopped taking the inciting medications. Last Assessment & Plan: She will send me a note from him of his latest assessment. documented as of this encounter (statuses as of 12/22/2021) [facility]05-[facility]-2017 History of Past illness Narrative* Problem Noted Date Resolved Date Post-operative pain 07/10/2016 08/12/2016 Hypomagnesemia 07/10/2016 07/10/2016 Full incontinence of feces 07/08/201607/10 Ankle instability 04/07/2016 08/12/2016 Posterior tibial tendonitis 04/07/201607/17 Trigger thumb of right hand 11/04/201507/17 Cramp in muscle 04/15/2015 08/12/2016 Primary insomnia 03/19/2015 08/12/2016 Last Assessment & Plan: Struggling with insomnia Pain in left knee 12/03/2014 08/12/2016 Overview: Patient has left knee pain , that got better with PT. Last Assessment & Plan: She is going for PT and now she feels better. significantly Weakness of left leg 11/04/2014 08/12/2016 Pain in joint, lower leg 02/19/2014 017 Tingling in extremities 10/11/2013 10/07/19 17 Overview: She is having tingling in her left thigh, that comes and goes. Going on for a couple months , but since the last 2 weeks she has been having it all the time. Last Assessment & Plan: She is having tingling in her left thigh, that comes and goes. Going on for a couple months , but since the last 2 weeks she has been having it all the time. Urgency of urination 03/09/2013 07/11/2013 Frequency of urination 03/09/2013 4 Last Assessment & Plan: Urinary incontinence is being followed and evaluated by Dr Vazquez, she is having some urodynamic studies done. i reveiwed Dr. Fernandez notes. Obesity 03/09/2013 10/06/2016 Overview: 04/25/13 BMI 48.43. Normal BMI 18.5-25, normal weight range of 112-150 pounds in a person 5 feet 5 inches tall. Last Assessment & Plan: Gaining weight since she has not been able to exercise due to her surgeries. Nausea 02/09/2013 08/12/2016 Last Assessment & Plan: Patient has some nausea recently, is on macrobid for suspected UTI, when she came in last week. Since all her tests are negative including urine culture.i am discontinuing that SOB (shortness of breath) on exertion 02/09/2013 08/12/2016 Last Assessment & Plan: The patient has SOB which was extensively evaluated, initially it was thought to be from asthma. After seeing the family consumer science teacher and all evaluation complete it was thought to from restriction of the lungs from her weight. She also has sleep apnea, needs oxygen bled into the cpap machine, as the desaturations at night time does not normalize with out bleeding oxygen in. Today we checked her oxygen , the results are below. resting with o2 at 3liters- 91% resting room air o2 sat- 90% activity room air o2 sat- 84% activity with nc at 3liters- 91% Urinary incontinence 02/09/2013 03/28/2013 Last Assessment & Plan: Patient is having the incontinence for a month. She is on vesicare but it does not help her. Prior to this she had some leakage and dribbling but it was never this bad. She has been having a lot of accidents in the last month. She is indeed a very complex patient and i would like to refer her to a Urologist so he can evaluate her bladder dynamics. Schizophrenia 01/04/2013 02/06/2014 Overview: Dr Delaney is her psychologist . Has not seen him for a year. Patient says that the diagnosis of schizophrenia was taken off the diagnosis. Last Assessment & Plan: Patients notes indicates, that she has schizophrenia. Has been on Thorazine, haldol and invega. These drugs gave her tardive dyskinesia. She was put on tetrabenzine for it, worked miracles with her and then she got some parkinson's like features. She couldn't even feed herself. She tried the medication twice. Currently she is not on any psychotic medications. Movement disorder 12/28/2012 08/12/2016 Last Assessment & Plan: Patient is here today, sitting in front of me, very restless, constantly moving her feet, knees, things, neck, in what looks like tardive dyskinesia. It happens 2/3 times a week continues for many hours before she can get Rest from it, she said starting or increasing doses of neurontin, have not made the episodes any worse. She can talk to us without a problem and although she looks very uncomfortable to me she says he is doing fine and this will just pass. She is on requip. And recently started on Gabapentin, we are decreasing her requip. She was on haldol many years ago she says for her depression. She says she has parkinsons and told me she is taking propranolol for it. I thinks she has not got it right. She does not know of any aggravating and relieving factors for these episodes. Wheezing 11/29/2012 08/12/2016 Last Assessment & Plan: Patient is audibly wheezing right now. She recently had asthmatic bronchitis and pneumonia, said she is prone to have it. had a course of levaquin. Steroids and bronchodilators. Schizoaffective disorder 11/15/2012 017 Overview: [facility] But [facility] it according to her. Last Assessment & Plan: [facility], But they changed it according to her. Parkinson disease 11/15/2012 12/03/2017 Overview: Radha [place], [place] I went through a lot of DR. Cevallos notes from [facility]. he does not seem to think she has parkinson's. She had drug induced parkinson's like symptoms that resolved when she stopped taking the inciting medications. Last Assessment & Plan: She will send me a note from him of his latest assessment. documented as of this encounter (statuses as of 12/25/2021) [facility]05[facility]2017 History of Past illness Narrative* Problem Noted Date Resolved Date Post-operative pain 07/10/2016 08/12/2016 Hypomagnesemia 07/10/2016 07/10/2016 Full incontinence of feces 07/08/201607/10 Ankle instability 04/07/2016 08/12/2016 Posterior tibial tendonitis 04/07/201607/17 Trigger thumb of right hand 11/04/201507/17 Cramp in muscle 04/15/2015 08/12/2016 Primary insomnia 03/19/2015 08/12/2016 Last Assessment & Plan: Struggling with insomnia Pain in left knee 12/03/2014 08/12/2016 Overview: Patient has left knee pain , that got better with PT. Last Assessment & Plan: She is going for PT and now she feels better. significantly Weakness of left leg 11/04/2014 08/12/2016 Pain in joint, lower leg 02/19/2014 017 Tingling in extremities 10/11/2013 10/07/19 17 Overview: She is having tingling in her left thigh, that comes and goes. Going on for a couple months , but since the last 2 weeks she has been having it all the time. Last Assessment & Plan: She is having tingling in her left thigh, that comes and goes. Going on for a couple months , but since the last 2 weeks she has been having it all the time. Urgency of urination 03/09/2013 07/11/2013 Frequency of urination 03/09/2013 4 Last Assessment & Plan: Urinary incontinence is being followed and evaluated by Dr Vazquez, she is having some urodynamic studies done. i reveiwed Dr. Fernandez notes. Obesity 03/09/2013 10/06/2016 Overview: 04/25/13 BMI 48.43. Normal BMI 18.5-25, normal weight range of 112-150 pounds in a person 5 feet 5 inches tall. Last Assessment & Plan: Gaining weight since she has not been able to exercise due to her surgeries. Nausea 02/09/2013 08/12/2016 Last Assessment & Plan: Patient has some nausea recently, is on macrobid for suspected UTI, when she came in last week. Since all her tests are negative including urine culture.i am discontinuing that SOB (shortness of breath) on exertion 02/09/2013 08/12/2016 Last Assessment & Plan: The patient has SOB which was extensively evaluated, initially it was thought to be from asthma. After seeing the family consumer science teacher and all evaluation complete it was thought to from restriction of the lungs from her weight. She also has sleep apnea, needs oxygen bled into the cpap machine, as the desaturations at night time does not normalize with out bleeding oxygen in. Today we checked her oxygen , the results are below. resting with o2 at 3liters- 91% resting room air o2 sat- 90% activity room air o2 sat- 84% activity with nc at 3liters- 91% Urinary incontinence 02/09/2013 03/28/2013 Last Assessment & Plan: Patient is having the incontinence for a month. She is on vesicare but it does not help her. Prior to this she had some leakage and dribbling but it was never this bad. She has been having a lot of accidents in the last month. She is indeed a very complex patient and i would like to refer her to a Urologist so he can evaluate her bladder dynamics. Schizophrenia 01/04/2013 02/06/2014 Overview: Dr Delaney is her psychologist . Has not seen him for a year. Patient says that the diagnosis of schizophrenia was taken off the diagnosis. Last Assessment & Plan: Patients notes indicates, that she has schizophrenia. Has been on Thorazine, haldol and invega. These drugs gave her tardive dyskinesia. She was put on tetrabenzine for it, worked miracles with her and then she got some parkinson's like features. She couldn't even feed herself. She tried the medication twice. Currently she is not on any psychotic medications. Movement disorder 12/28/2012 08/12/2016 Last Assessment & Plan: Patient is here today, sitting in front of me, very restless, constantly moving her feet, knees, things, neck, in what looks like tardive dyskinesia. It happens 2/3 times a week continues for many hours before she can get Rest from it, she said starting or increasing doses of neurontin, have not made the episodes any worse. She can talk to us without a problem and although she looks very uncomfortable to me she says he is doing fine and this will just pass. She is on requip. And recently started on Gabapentin, we are decreasing her requip. She was on haldol many years ago she says for her depression. She says she has parkinsons and told me she is taking propranolol for it. I thinks she has not got it right. She does not know of any aggravating and relieving factors for these episodes. Wheezing 11/29/2012 08/12/2016 Last Assessment & Plan: Patient is audibly wheezing right now. She recently had asthmatic bronchitis and pneumonia, said she is prone to have it. had a course of levaquin. Steroids and bronchodilators. Schizoaffective disorder 11/15/2012 017 Overview: [facility] But [facility] it according to her. Last Assessment & Plan: [facility], But they changed it according to her. Parkinson disease 11/15/2012 12/03/2017 Overview: [place], [place] I went through a lot of [facility]allos [facility]. he does not seem to think she has parkinson's. She had drug induced parkinson's like symptoms that resolved when she stopped taking the inciting medications. Last Assessment & Plan: She will send me a note from him of his latest assessment. documented as of this encounter (statuses as of 12/29/2021) [facility]05[facility]2017 History of Past illness Narrative* Problem Noted Date Resolved Date Post-operative pain 07/10/2016 08/12/2016 Hypomagnesemia 07/10/2016 07/10/2016 Full incontinence of feces 07/08/201607/10 Ankle instability 04/07/2016 08/12/2016 Posterior tibial tendonitis 04/07/201607/17 Trigger thumb of right hand 11/04/201507/17 Cramp in muscle 04/15/2015 08/12/2016 Primary insomnia 03/19/2015 08/12/2016 Last Assessment & Plan: Struggling with insomnia Pain in left knee 12/03/2014 08/12/2016 Overview: Patient has left knee pain , that got better with PT. Last Assessment & Plan: She is going for PT and now she feels better. significantly Weakness of left leg 11/04/2014 08/12/2016 Pain in joint, lower leg 02/19/2014 017 Tingling in extremities 10/11/2013 10/07/19 17 Overview: She is having tingling in her left thigh, that comes and goes. Going on for a couple months , but since the last 2 weeks she has been having it all the time. Last Assessment & Plan: She is having tingling in her left thigh, that comes and goes. Going on for a couple months , but since the last 2 weeks she has been having it all the time. Urgency of urination 03/09/2013 07/11/2013 Frequency of urination 03/09/2013 4 Last Assessment & Plan: Urinary incontinence is being followed and evaluated by Dr Vazquez, she is having some urodynamic studies done. i reveiwed Dr. Fernandez notes. Obesity 03/09/2013 10/06/2016 Overview: 04/25/13 BMI 48.43. Normal BMI 18.5-25, normal weight range of 112-150 pounds in a person 5 feet 5 inches tall. Last Assessment & Plan: Gaining weight since she has not been able to exercise due to her surgeries. Nausea 02/09/2013 08/12/2016 Last Assessment & Plan: Patient has some nausea recently, is on macrobid for suspected UTI, when she came in last week. Since all her tests are negative including urine culture.i am discontinuing that SOB (shortness of breath) on exertion 02/09/2013 08/12/2016 Last Assessment & Plan: The patient has SOB which was extensively evaluated, initially it was thought to be from asthma. After seeing the family consumer science teacher and all evaluation complete it was thought to from restriction of the lungs from her weight. She also has sleep apnea, needs oxygen bled into the cpap machine, as the desaturations at night time does not normalize with out bleeding oxygen in. Today we checked her oxygen , the results are below. resting with o2 at 3liters- 91% resting room air o2 sat- 90% activity room air o2 sat- 84% activity with nc at 3liters- 91% Urinary incontinence 02/09/2013 03/28/2013 Last Assessment & Plan: Patient is having the incontinence for a month. She is on vesicare but it does not help her. Prior to this she had some leakage and dribbling but it was never this bad. She has been having a lot of accidents in the last month. She is indeed a very complex patient and i would like to refer her to a Urologist so he can evaluate her bladder dynamics. Schizophrenia 01/04/2013 02/06/2014 Overview: Dr Delaney is her psychologist . Has not seen him for a year. Patient says that the diagnosis of schizophrenia was taken off the diagnosis. Last Assessment & Plan: Patients notes indicates, that she has schizophrenia. Has been on Thorazine, haldol and invega. These drugs gave her tardive dyskinesia. She was put on tetrabenzine for it, worked miracles with her and then she got some parkinson's like features. She couldn't even feed herself. She tried the medication twice. Currently she is not on any psychotic medications. Movement disorder 12/28/2012 08/12/2016 Last Assessment & Plan: Patient is here today, sitting in front of me, very restless, constantly moving her feet, knees, things, neck, in what looks like tardive dyskinesia. It happens 2/3 times a week continues for many hours before she can get Rest from it, she said starting or increasing doses of neurontin, have not made the episodes any worse. She can talk to us without a problem and although she looks very uncomfortable to me she says he is doing fine and this will just pass. She is on requip. And recently started on Gabapentin, we are decreasing her requip. She was on haldol many years ago she says for her depression. She says she has parkinsons and told me she is taking propranolol for it. I thinks she has not got it right. She does not know of any aggravating and relieving factors for these episodes. Wheezing 11/29/2012 08/12/2016 Last Assessment & Plan: Patient is audibly wheezing right now. She recently had asthmatic bronchitis and pneumonia, said she is prone to have it. had a course of levaquin. Steroids and bronchodilators. Schizoaffective disorder 11/15/2012 017 Overview: [facility] But [facility] it according to her. Last Assessment & Plan: [facility], But they changed it according to her. Parkinson disease 11/15/2012 12/03/2017 Overview: [place], [place] I went through a lot of [facility]os [facility]. he does not seem to think she has parkinson's. She had drug induced parkinson's like symptoms that resolved when she stopped taking the inciting medications. Last Assessment & Plan: She will send me a note from him of his latest assessment. documented as of this encounter (statuses as of 12/30/2021) [facility] History of Past illness Narrative* Problem Noted Date Resolved Date Post-operative pain 07/10/2016 08/12/2016 Hypomagnesemia 07/10/2016 07/10/2016 Full incontinence of feces 07/08/201607/10 Ankle instability 04/07/2016 08/12/2016 Posterior tibial tendonitis 04/07/201607/17 Trigger thumb of right hand 11/04/201507/17 Cramp in muscle 04/15/2015 08/12/2016 Primary insomnia 03/19/2015 08/12/2016 Last Assessment & Plan: Struggling with insomnia Pain in left knee 12/03/2014 08/12/2016 Overview: Patient has left knee pain , that got better with PT. Last Assessment & Plan: She is going for PT and now she feels better. significantly Weakness of left leg 11/04/2014 08/12/2016 Pain in joint, lower leg 02/19/2014 017 Tingling in extremities 10/11/2013 10/07/19 17 Overview: She is having tingling in her left thigh, that comes and goes. Going on for a couple months , but since the last 2 weeks she has been having it all the time. Last Assessment & Plan: She is having tingling in her left thigh, that comes and goes. Going on for a couple months , but since the last 2 weeks she has been having it all the time. Urgency of urination 03/09/2013 07/11/2013 Frequency of urination 03/09/2013 4 Last Assessment & Plan: Urinary incontinence is being followed and evaluated by Dr Vazquez, she is having some urodynamic studies done. i reveiwed Dr. Fernandez notes. Obesity 03/09/2013 10/06/2016 Overview: 04/25/13 BMI 48.43. Normal BMI 18.5-25, normal weight range of 112-150 pounds in a person 5 feet 5 inches tall. Last Assessment & Plan: Gaining weight since she has not been able to exercise due to her surgeries. Nausea 02/09/2013 08/12/2016 Last Assessment & Plan: Patient has some nausea recently, is on macrobid for suspected UTI, when she came in last week. Since all her tests are negative including urine culture.i am discontinuing that SOB (shortness of breath) on exertion 02/09/2013 08/12/2016 Last Assessment & Plan: The patient has SOB which was extensively evaluated, initially it was thought to be from asthma. After seeing the family consumer science teacher and all evaluation complete it was thought to from restriction of the lungs from her weight. She also has sleep apnea, needs oxygen bled into the cpap machine, as the desaturations at night time does not normalize with out bleeding oxygen in. Today we checked her oxygen , the results are below. resting with o2 at 3liters- 91% resting room air o2 sat- 90% activity room air o2 sat- 84% activity with nc at 3liters- 91% Urinary incontinence 02/09/2013 03/28/2013 Last Assessment & Plan: Patient is having the incontinence for a month. She is on vesicare but it does not help her. Prior to this she had some leakage and dribbling but it was never this bad. She has been having a lot of accidents in the last month. She is indeed a very complex patient and i would like to refer her to a Urologist so he can evaluate her bladder dynamics. Schizophrenia 01/04/2013 02/06/2014 Overview: Dr Delaney is her psychologist . Has not seen him for a year. Patient says that the diagnosis of schizophrenia was taken off the diagnosis. Last Assessment & Plan: Patients notes indicates, that she has schizophrenia. Has been on Thorazine, haldol and invega. These drugs gave her tardive dyskinesia. She was put on tetrabenzine for it, worked miracles with her and then she got some parkinson's like features. She couldn't even feed herself. She tried the medication twice. Currently she is not on any psychotic medications. Movement disorder 12/28/2012 08/12/2016 Last Assessment & Plan: Patient is here today, sitting in front of me, very restless, constantly moving her feet, knees, things, neck, in what looks like tardive dyskinesia. It happens 2/3 times a week continues for many hours before she can get Rest from it, she said starting or increasing doses of neurontin, have not made the episodes any worse. She can talk to us without a problem and although she looks very uncomfortable to me she says he is doing fine and this will just pass. She is on requip. And recently started on Gabapentin, we are decreasing her requip. She was on haldol many years ago she says for her depression. She says she has parkinsons and told me she is taking propranolol for it. I thinks she has not got it right. She does not know of any aggravating and relieving factors for these episodes. Wheezing 11/29/2012 08/12/2016 Last Assessment & Plan: Patient is audibly wheezing right now. She recently had asthmatic bronchitis and pneumonia, said she is prone to have it. had a course of levaquin. Steroids and bronchodilators. Schizoaffective disorder 11/15/2012 017 Overview: [facility] But [facility] it according to her. Last Assessment & Plan: [facility], But they changed it according to her. Parkinson disease 11/15/2012 12/03/2017 Overview: Radha [place], [place] I went through a lot of DR[facility] Cevallos [facility]. he does not seem to think she has parkinson's. She had drug induced parkinson's like symptoms that resolved when she stopped taking the inciting medications. Last Assessment & Plan: She will send me a note from him of his latest assessment. documented as of this encounter (statuses as of 01/01/2022) [facility]05-[facility]2017 History of Past illness Narrative* Problem Noted Date Resolved Date Post-operative pain 07/10/2016 08/12/2016 Hypomagnesemia 07/10/2016 07/10/2016 Full incontinence of feces 07/08/201607/10 Ankle instability 04/07/2016 08/12/2016 Posterior tibial tendonitis 04/07/201607/17 Trigger thumb of right hand 11/04/201507/17 Cramp in muscle 04/15/2015 08/12/2016 Primary insomnia 03/19/2015 08/12/2016 Last Assessment & Plan: Struggling with insomnia Pain in left knee 12/03/2014 08/12/2016 Overview: Patient has left knee pain , that got better with PT. Last Assessment & Plan: She is going for PT and now she feels better. significantly Weakness of left leg 11/04/2014 08/12/2016 Pain in joint, lower leg 02/19/2014 017 Tingling in extremities 10/11/2013 10/07/19 17 Overview: She is having tingling in her left thigh, that comes and goes. Going on for a couple months , but since the last 2 weeks she has been having it all the time. Last Assessment & Plan: She is having tingling in her left thigh, that comes and goes. Going on for a couple months , but since the last 2 weeks she has been having it all the time. Urgency of urination 03/09/2013 07/11/2013 Frequency of urination 03/09/2013 4 Last Assessment & Plan: Urinary incontinence is being followed and evaluated by Dr Vazquez, she is having some urodynamic studies done. i reveiwed Dr. Fernandez notes. Obesity 03/09/2013 10/06/2016 Overview: 04/25/13 BMI 48.43. Normal BMI 18.5-25, normal weight range of 112-150 pounds in a person 5 feet 5 inches tall. Last Assessment & Plan: Gaining weight since she has not been able to exercise due to her surgeries. Nausea 02/09/2013 08/12/2016 Last Assessment & Plan: Patient has some nausea recently, is on macrobid for suspected UTI, when she came in last week. Since all her tests are negative including urine culture.i am discontinuing that SOB (shortness of breath) on exertion 02/09/2013 08/12/2016 Last Assessment & Plan: The patient has SOB which was extensively evaluated, initially it was thought to be from asthma. After seeing the family consumer science teacher and all evaluation complete it was thought to from restriction of the lungs from her weight. She also has sleep apnea, needs oxygen bled into the cpap machine, as the desaturations at night time does not normalize with out bleeding oxygen in. Today we checked her oxygen , the results are below. resting with o2 at 3liters- 91% resting room air o2 sat- 90% activity room air o2 sat- 84% activity with nc at 3liters- 91% Urinary incontinence 02/09/2013 03/28/2013 Last Assessment & Plan: Patient is having the incontinence for a month. She is on vesicare but it does not help her. Prior to this she had some leakage and dribbling but it was never this bad. She has been having a lot of accidents in the last month. She is indeed a very complex patient and i would like to refer her to a Urologist so he can evaluate her bladder dynamics. Schizophrenia 01/04/2013 02/06/2014 Overview: Dr Delaney is her psychologist . Has not seen him for a year. Patient says that the diagnosis of schizophrenia was taken off the diagnosis. Last Assessment & Plan: Patients notes indicates, that she has schizophrenia. Has been on Thorazine, haldol and invega. These drugs gave her tardive dyskinesia. She was put on tetrabenzine for it, worked miracles with her and then she got some parkinson's like features. She couldn't even feed herself. She tried the medication twice. Currently she is not on any psychotic medications. Movement disorder 12/28/2012 08/12/2016 Last Assessment & Plan: Patient is here today, sitting in front of me, very restless, constantly moving her feet, knees, things, neck, in what looks like tardive dyskinesia. It happens 2/3 times a week continues for many hours before she can get Rest from it, she said starting or increasing doses of neurontin, have not made the episodes any worse. She can talk to us without a problem and although she looks very uncomfortable to me she says he is doing fine and this will just pass. She is on requip. And recently started on Gabapentin, we are decreasing her requip. She was on haldol many years ago she says for her depression. She says she has parkinsons and told me she is taking propranolol for it. I thinks she has not got it right. She does not know of any aggravating and relieving factors for these episodes. Wheezing 11/29/2012 08/12/2016 Last Assessment & Plan: Patient is audibly wheezing right now. She recently had asthmatic bronchitis and pneumonia, said she is prone to have it. had a course of levaquin. Steroids and bronchodilators. Schizoaffective disorder 11/15/2012 017 Overview: [facility] But [facility] it according to her. Last Assessment & Plan: [facility], But they changed it according to her. Parkinson disease 11/15/2012 12/03/2017 Overview: Radha [place], [place] I went through a lot of DR. Cevallos notes from [facility]. he does not seem to think she has parkinson's. She had drug induced parkinson's like symptoms that resolved when she stopped taking the inciting medications. Last Assessment & Plan: She will send me a note from him of his latest assessment. documented as of this encounter (statuses as of 01/05/2022) [facility]05[facility]2017 History of Past illness Narrative* Problem Noted Date Resolved Date Post-operative pain 07/10/2016 08/12/2016 Hypomagnesemia 07/10/2016 07/10/2016 Full incontinence of feces 07/08/201607/10 Ankle instability 04/07/2016 08/12/2016 Posterior tibial tendonitis 04/07/201607/17 Trigger thumb of right hand 11/04/201507/17 Cramp in muscle 04/15/2015 08/12/2016 Primary insomnia 03/19/2015 08/12/2016 Last Assessment & Plan: Struggling with insomnia Pain in left knee 12/03/2014 08/12/2016 Overview: Patient has left knee pain , that got better with PT. Last Assessment & Plan: She is going for PT and now she feels better. significantly Weakness of left leg 11/04/2014 08/12/2016 Pain in joint, lower leg 02/19/2014 017 Tingling in extremities 10/11/2013 10/07/19 17 Overview: She is having tingling in her left thigh, that comes and goes. Going on for a couple months , but since the last 2 weeks she has been having it all the time. Last Assessment & Plan: She is having tingling in her left thigh, that comes and goes. Going on for a couple months , but since the last 2 weeks she has been having it all the time. Urgency of urination 03/09/2013 07/11/2013 Frequency of urination 03/09/2013 4 Last Assessment & Plan: Urinary incontinence is being followed and evaluated by Dr Vazquez, she is having some urodynamic studies done. i reveiwed Dr. Fernandez notes. Obesity 03/09/2013 10/06/2016 Overview: 04/25/13 BMI 48.43. Normal BMI 18.5-25, normal weight range of 112-150 pounds in a person 5 feet 5 inches tall. Last Assessment & Plan: Gaining weight since she has not been able to exercise due to her surgeries. Nausea 02/09/2013 08/12/2016 Last Assessment & Plan: Patient has some nausea recently, is on macrobid for suspected UTI, when she came in last week. Since all her tests are negative including urine culture.i am discontinuing that SOB (shortness of breath) on exertion 02/09/2013 08/12/2016 Last Assessment & Plan: The patient has SOB which was extensively evaluated, initially it was thought to be from asthma. After seeing the family consumer science teacher and all evaluation complete it was thought to from restriction of the lungs from her weight. She also has sleep apnea, needs oxygen bled into the cpap machine, as the desaturations at night time does not normalize with out bleeding oxygen in. Today we checked her oxygen , the results are below. resting with o2 at 3liters- 91% resting room air o2 sat- 90% activity room air o2 sat- 84% activity with nc at 3liters- 91% Urinary incontinence 02/09/2013 03/28/2013 Last Assessment & Plan: Patient is having the incontinence for a month. She is on vesicare but it does not help her. Prior to this she had some leakage and dribbling but it was never this bad. She has been having a lot of accidents in the last month. She is indeed a very complex patient and i would like to refer her to a Urologist so he can evaluate her bladder dynamics. Schizophrenia 01/04/2013 02/06/2014 Overview: Dr Delaney is her psychologist . Has not seen him for a year. Patient says that the diagnosis of schizophrenia was taken off the diagnosis. Last Assessment & Plan: Patients notes indicates, that she has schizophrenia. Has been on Thorazine, haldol and invega. These drugs gave her tardive dyskinesia. She was put on tetrabenzine for it, worked miracles with her and then she got some parkinson's like features. She couldn't even feed herself. She tried the medication twice. Currently she is not on any psychotic medications. Movement disorder 12/28/2012 08/12/2016 Last Assessment & Plan: Patient is here today, sitting in front of me, very restless, constantly moving her feet, knees, things, neck, in what looks like tardive dyskinesia. It happens 2/3 times a week continues for many hours before she can get Rest from it, she said starting or increasing doses of neurontin, have not made the episodes any worse. She can talk to us without a problem and although she looks very uncomfortable to me she says he is doing fine and this will just pass. She is on requip. And recently started on Gabapentin, we are decreasing her requip. She was on haldol many years ago she says for her depression. She says she has parkinsons and told me she is taking propranolol for it. I thinks she has not got it right. She does not know of any aggravating and relieving factors for these episodes. Wheezing 11/29/2012 08/12/2016 Last Assessment & Plan: Patient is audibly wheezing right now. She recently had asthmatic bronchitis and pneumonia, said she is prone to have it. had a course of levaquin. Steroids and bronchodilators. Schizoaffective disorder 11/15/2012 017 Overview: [facility] But [facility] it according to her. Last Assessment & Plan: [facility], But they changed it according to her. Parkinson disease 11/15/2012 12/03/2017 Overview: Radha [place], [place] I went through a lot of DR[facility]allos [facility]. he does not seem to think she has parkinson's. She had drug induced parkinson's like symptoms that resolved when she stopped taking the inciting medications. Last Assessment & Plan: She will send me a note from him of his latest assessment. documented as of this encounter (statuses as of 01/06/2022) [facility] History of Past illness Narrative* Problem Noted Date Resolved Date Post-operative pain 07/10/2016 08/12/2016 Hypomagnesemia 07/10/2016 07/10/2016 Full incontinence of feces 07/08/201607/10 Ankle instability 04/07/2016 08/12/2016 Posterior tibial tendonitis 04/07/201607/17 Trigger thumb of right hand 11/04/201507/17 Cramp in muscle 04/15/2015 08/12/2016 Primary insomnia 03/19/2015 08/12/2016 Last Assessment & Plan: Struggling with insomnia Pain in left knee 12/03/2014 08/12/2016 Overview: Patient has left knee pain , that got better with PT. Last Assessment & Plan: She is going for PT and now she feels better. significantly Weakness of left leg 11/04/2014 08/12/2016 Pain in joint, lower leg 02/19/2014 017 Tingling in extremities 10/11/2013 10/07/19 17 Overview: She is having tingling in her left thigh, that comes and goes. Going on for a couple months , but since the last 2 weeks she has been having it all the time. Last Assessment & Plan: She is having tingling in her left thigh, that comes and goes. Going on for a couple months , but since the last 2 weeks she has been having it all the time. Urgency of urination 03/09/2013 07/11/2013 Frequency of urination 03/09/2013 4 Last Assessment & Plan: Urinary incontinence is being followed and evaluated by Dr Vazquez, she is having some urodynamic studies done. i reveiwed Dr. Fernandez notes. Obesity 03/09/2013 10/06/2016 Overview: 04/25/13 BMI 48.43. Normal BMI 18.5-25, normal weight range of 112-150 pounds in a person 5 feet 5 inches tall. Last Assessment & Plan: Gaining weight since she has not been able to exercise due to her surgeries. Nausea 02/09/2013 08/12/2016 Last Assessment & Plan: Patient has some nausea recently, is on macrobid for suspected UTI, when she came in last week. Since all her tests are negative including urine culture.i am discontinuing that SOB (shortness of breath) on exertion 02/09/2013 08/12/2016 Last Assessment & Plan: The patient has SOB which was extensively evaluated, initially it was thought to be from asthma. After seeing the family consumer science teacher and all evaluation complete it was thought to from restriction of the lungs from her weight. She also has sleep apnea, needs oxygen bled into the cpap machine, as the desaturations at night time does not normalize with out bleeding oxygen in. Today we checked her oxygen , the results are below. resting with o2 at 3liters- 91% resting room air o2 sat- 90% activity room air o2 sat- 84% activity with nc at 3liters- 91% Urinary incontinence 02/09/2013 03/28/2013 Last Assessment & Plan: Patient is having the incontinence for a month. She is on vesicare but it does not help her. Prior to this she had some leakage and dribbling but it was never this bad. She has been having a lot of accidents in the last month. She is indeed a very complex patient and i would like to refer her to a Urologist so he can evaluate her bladder dynamics. Schizophrenia 01/04/2013 02/06/2014 Overview: Dr Delaney is her psychologist . Has not seen him for a year. Patient says that the diagnosis of schizophrenia was taken off the diagnosis. Last Assessment & Plan: Patients notes indicates, that she has schizophrenia. Has been on Thorazine, haldol and invega. These drugs gave her tardive dyskinesia. She was put on tetrabenzine for it, worked miracles with her and then she got some parkinson's like features. She couldn't even feed herself. She tried the medication twice. Currently she is not on any psychotic medications. Movement disorder 12/28/2012 08/12/2016 Last Assessment & Plan: Patient is here today, sitting in front of me, very restless, constantly moving her feet, knees, things, neck, in what looks like tardive dyskinesia. It happens 2/3 times a week continues for many hours before she can get Rest from it, she said starting or increasing doses of neurontin, have not made the episodes any worse. She can talk to us without a problem and although she looks very uncomfortable to me she says he is doing fine and this will just pass. She is on requip. And recently started on Gabapentin, we are decreasing her requip. She was on haldol many years ago she says for her depression. She says she has parkinsons and told me she is taking propranolol for it. I thinks she has not got it right. She does not know of any aggravating and relieving factors for these episodes. Wheezing 11/29/2012 08/12/2016 Last Assessment & Plan: Patient is audibly wheezing right now. She recently had asthmatic bronchitis and pneumonia, said she is prone to have it. had a course of levaquin. Steroids and bronchodilators. Schizoaffective disorder 11/15/2012 017 Overview: [facility] But [facility] according to her. Last Assessment & Plan: [facility], But they changed it according to her. Parkinson disease 11/15/2012 12/03/2017 Overview: [place], [place] I went through a lot of [facility]allos [facility]. he does not seem to think she has parkinson's. She had drug induced parkinson's like symptoms that resolved when she stopped taking the inciting medications. Last Assessment & Plan: She will send me a note from him of his latest assessment. documented as of this encounter (statuses as of 01/07/2022) [facility] History of Past illness Narrative* Problem Noted Date Resolved Date Post-operative pain 07/10/2016 08/12/2016 Hypomagnesemia 07/10/2016 07/10/2016 Full incontinence of feces 07/08/201607/10 Ankle instability 04/07/2016 08/12/2016 Posterior tibial tendonitis 04/07/201607/17 Trigger thumb of right hand 11/04/201507/17 Cramp in muscle 04/15/2015 08/12/2016 Primary insomnia 03/19/2015 08/12/2016 Last Assessment & Plan: Struggling with insomnia Pain in left knee 12/03/2014 08/12/2016 Overview: Patient has left knee pain , that got better with PT. Last Assessment & Plan: She is going for PT and now she feels better. significantly Weakness of left leg 11/04/2014 08/12/2016 Pain in joint, lower leg 02/19/2014 017 Tingling in extremities 10/11/2013 10/07/19 17 Overview: She is having tingling in her left thigh, that comes and goes. Going on for a couple months , but since the last 2 weeks she has been having it all the time. Last Assessment & Plan: She is having tingling in her left thigh, that comes and goes. Going on for a couple months , but since the last 2 weeks she has been having it all the time. Urgency of urination 03/09/2013 07/11/2013 Frequency of urination 03/09/2013 4 Last Assessment & Plan: Urinary incontinence is being followed and evaluated by Dr Vazquez, she is having some urodynamic studies done. i reveiwed Dr. Fernandez notes. Obesity 03/09/2013 10/06/2016 Overview: 04/25/13 BMI 48.43. Normal BMI 18.5-25, normal weight range of 112-150 pounds in a person 5 feet 5 inches tall. Last Assessment & Plan: Gaining weight since she has not been able to exercise due to her surgeries. Nausea 02/09/2013 08/12/2016 Last Assessment & Plan: Patient has some nausea recently, is on macrobid for suspected UTI, when she came in last week. Since all her tests are negative including urine culture.i am discontinuing that SOB (shortness of breath) on exertion 02/09/2013 08/12/2016 Last Assessment & Plan: The patient has SOB which was extensively evaluated, initially it was thought to be from asthma. After seeing the family consumer science teacher and all evaluation complete it was thought to from restriction of the lungs from her weight. She also has sleep apnea, needs oxygen bled into the cpap machine, as the desaturations at night time does not normalize with out bleeding oxygen in. Today we checked her oxygen , the results are below. resting with o2 at 3liters- 91% resting room air o2 sat- 90% activity room air o2 sat- 84% activity with nc at 3liters- 91% Urinary incontinence 02/09/2013 03/28/2013 Last Assessment & Plan: Patient is having the incontinence for a month. She is on vesicare but it does not help her. Prior to this she had some leakage and dribbling but it was never this bad. She has been having a lot of accidents in the last month. She is indeed a very complex patient and i would like to refer her to a Urologist so he can evaluate her bladder dynamics. Schizophrenia 01/04/2013 02/06/2014 Overview: Dr Delaney is her psychologist . Has not seen him for a year. Patient says that the diagnosis of schizophrenia was taken off the diagnosis. Last Assessment & Plan: Patients notes indicates, that she has schizophrenia. Has been on Thorazine, haldol and invega. These drugs gave her tardive dyskinesia. She was put on tetrabenzine for it, worked miracles with her and then she got some parkinson's like features. She couldn't even feed herself. She tried the medication twice. Currently she is not on any psychotic medications. Movement disorder 12/28/2012 08/12/2016 Last Assessment & Plan: Patient is here today, sitting in front of me, very restless, constantly moving her feet, knees, things, neck, in what looks like tardive dyskinesia. It happens 2/3 times a week continues for many hours before she can get Rest from it, she said starting or increasing doses of neurontin, have not made the episodes any worse. She can talk to us without a problem and although she looks very uncomfortable to me she says he is doing fine and this will just pass. She is on requip. And recently started on Gabapentin, we are decreasing her requip. She was on haldol many years ago she says for her depression. She says she has parkinsons and told me she is taking propranolol for it. I thinks she has not got it right. She does not know of any aggravating and relieving factors for these episodes. Wheezing 11/29/2012 08/12/2016 Last Assessment & Plan: Patient is audibly wheezing right now. She recently had asthmatic bronchitis and pneumonia, said she is prone to have it. had a course of levaquin. Steroids and bronchodilators. Schizoaffective disorder 11/15/2012 017 Overview: [facility] But [facility] it according to her. Last Assessment & Plan: [facility], But they changed it according to her. Parkinson disease 11/15/2012 12/03/2017 Overview: [place], [place] I went through a lot of [facility]allos [facility]. he does not seem to think she has parkinson's. She had drug induced parkinson's like symptoms that resolved when she stopped taking the inciting medications. Last Assessment & Plan: She will send me a note from him of his latest assessment. documented as of this encounter (statuses as of 01/12/2022) [facility] History of Past illness Narrative* Problem Noted Date Resolved Date Post-operative pain 07/10/2016 08/12/2016 Hypomagnesemia 07/10/2016 07/10/2016 Full incontinence of feces 07/08/201607/10 Ankle instability 04/07/2016 08/12/2016 Posterior tibial tendonitis 04/07/201607/17 Trigger thumb of right hand 11/04/201507/17 Cramp in muscle 04/15/2015 08/12/2016 Primary insomnia 03/19/2015 08/12/2016 Last Assessment & Plan: Struggling with insomnia Pain in left knee 12/03/2014 08/12/2016 Overview: Patient has left knee pain , that got better with PT. Last Assessment & Plan: She is going for PT and now she feels better. significantly Weakness of left leg 11/04/2014 08/12/2016 Pain in joint, lower leg 02/19/2014 017 Tingling in extremities 10/11/2013 10/07/19 17 Overview: She is having tingling in her left thigh, that comes and goes. Going on for a couple months , but since the last 2 weeks she has been having it all the time. Last Assessment & Plan: She is having tingling in her left thigh, that comes and goes. Going on for a couple months , but since the last 2 weeks she has been having it all the time. Urgency of urination 03/09/2013 07/11/2013 Frequency of urination 03/09/2013 4 Last Assessment & Plan: Urinary incontinence is being followed and evaluated by Dr Vazquez, she is having some urodynamic studies done. i reveiwed Dr. Fernandez notes. Obesity 03/09/2013 10/06/2016 Overview: 04/25/13 BMI 48.43. Normal BMI 18.5-25, normal weight range of 112-150 pounds in a person 5 feet 5 inches tall. Last Assessment & Plan: Gaining weight since she has not been able to exercise due to her surgeries. Nausea 02/09/2013 08/12/2016 Last Assessment & Plan: Patient has some nausea recently, is on macrobid for suspected UTI, when she came in last week. Since all her tests are negative including urine culture.i am discontinuing that SOB (shortness of breath) on exertion 02/09/2013 08/12/2016 Last Assessment & Plan: The patient has SOB which was extensively evaluated, initially it was thought to be from asthma. After seeing the family consumer science teacher and all evaluation complete it was thought to from restriction of the lungs from her weight. She also has sleep apnea, needs oxygen bled into the cpap machine, as the desaturations at night time does not normalize with out bleeding oxygen in. Today we checked her oxygen , the results are below. resting with o2 at 3liters- 91% resting room air o2 sat- 90% activity room air o2 sat- 84% activity with nc at 3liters- 91% Urinary incontinence 02/09/2013 03/28/2013 Last Assessment & Plan: Patient is having the incontinence for a month. She is on vesicare but it does not help her. Prior to this she had some leakage and dribbling but it was never this bad. She has been having a lot of accidents in the last month. She is indeed a very complex patient and i would like to refer her to a Urologist so he can evaluate her bladder dynamics. Schizophrenia 01/04/2013 02/06/2014 Overview: Dr Delaney is her psychologist . Has not seen him for a year. Patient says that the diagnosis of schizophrenia was taken off the diagnosis. Last Assessment & Plan: Patients notes indicates, that she has schizophrenia. Has been on Thorazine, haldol and invega. These drugs gave her tardive dyskinesia. She was put on tetrabenzine for it, worked miracles with her and then she got some parkinson's like features. She couldn't even feed herself. She tried the medication twice. Currently she is not on any psychotic medications. Movement disorder 12/28/2012 08/12/2016 Last Assessment & Plan: Patient is here today, sitting in front of me, very restless, constantly moving her feet, knees, things, neck, in what looks like tardive dyskinesia. It happens 2/3 times a week continues for many hours before she can get Rest from it, she said starting or increasing doses of neurontin, have not made the episodes any worse. She can talk to us without a problem and although she looks very uncomfortable to me she says he is doing fine and this will just pass. She is on requip. And recently started on Gabapentin, we are decreasing her requip. She was on haldol many years ago she says for her depression. She says she has parkinsons and told me she is taking propranolol for it. I thinks she has not got it right. She does not know of any aggravating and relieving factors for these episodes. Wheezing 11/29/2012 08/12/2016 Last Assessment & Plan: Patient is audibly wheezing right now. She recently had asthmatic bronchitis and pneumonia, said she is prone to have it. had a course of levaquin. Steroids and bronchodilators. Schizoaffective disorder 11/15/2012 017 Overview: [facility] But [facility] it according to her. Last Assessment & Plan: [facility], But they changed it according to her. Parkinson disease 11/15/2012 12/03/2017 Overview: [place], [place] I went through a lot of DR. Cevallos [facility]. he does not seem to think she has parkinson's. She had drug induced parkinson's like symptoms that resolved when she stopped taking the inciting medications. Last Assessment & Plan: She will send me a note from him of his latest assessment. documented as of this encounter (statuses as of 01/15/2022) [facility]05-[facility]2017 History of Past illness Narrative* Problem Noted Date Resolved Date Post-operative pain 07/10/2016 08/12/2016 Hypomagnesemia 07/10/2016 07/10/2016 Full incontinence of feces 07/08/201607/10 Ankle instability 04/07/2016 08/12/2016 Posterior tibial tendonitis 04/07/201607/17 Trigger thumb of right hand 11/04/201507/17 Cramp in muscle 04/15/2015 08/12/2016 Primary insomnia 03/19/2015 08/12/2016 Last Assessment & Plan: Struggling with insomnia Pain in left knee 12/03/2014 08/12/2016 Overview: Patient has left knee pain , that got better with PT. Last Assessment & Plan: She is going for PT and now she feels better. significantly Weakness of left leg 11/04/2014 08/12/2016 Pain in joint, lower leg 02/19/2014 017 Tingling in extremities 10/11/2013 10/07/19 17 Overview: She is having tingling in her left thigh, that comes and goes. Going on for a couple months , but since the last 2 weeks she has been having it all the time. Last Assessment & Plan: She is having tingling in her left thigh, that comes and goes. Going on for a couple months , but since the last 2 weeks she has been having it all the time. Urgency of urination 03/09/2013 07/11/2013 Frequency of urination 03/09/2013 4 Last Assessment & Plan: Urinary incontinence is being followed and evaluated by Dr Vazquez, she is having some urodynamic studies done. i reveiwed Dr. Fernandez notes. Obesity 03/09/2013 10/06/2016 Overview: 04/25/13 BMI 48.43. Normal BMI 18.5-25, normal weight range of 112-150 pounds in a person 5 feet 5 inches tall. Last Assessment & Plan: Gaining weight since she has not been able to exercise due to her surgeries. Nausea 02/09/2013 08/12/2016 Last Assessment & Plan: Patient has some nausea recently, is on macrobid for suspected UTI, when she came in last week. Since all her tests are negative including urine culture.i am discontinuing that SOB (shortness of breath) on exertion 02/09/2013 08/12/2016 Last Assessment & Plan: The patient has SOB which was extensively evaluated, initially it was thought to be from asthma. After seeing the family consumer science teacher and all evaluation complete it was thought to from restriction of the lungs from her weight. She also has sleep apnea, needs oxygen bled into the cpap machine, as the desaturations at night time does not normalize with out bleeding oxygen in. Today we checked her oxygen , the results are below. resting with o2 at 3liters- 91% resting room air o2 sat- 90% activity room air o2 sat- 84% activity with nc at 3liters- 91% Urinary incontinence 02/09/2013 03/28/2013 Last Assessment & Plan: Patient is having the incontinence for a month. She is on vesicare but it does not help her. Prior to this she had some leakage and dribbling but it was never this bad. She has been having a lot of accidents in the last month. She is indeed a very complex patient and i would like to refer her to a Urologist so he can evaluate her bladder dynamics. Schizophrenia 01/04/2013 02/06/2014 Overview: Dr Delaney is her psychologist . Has not seen him for a year. Patient says that the diagnosis of schizophrenia was taken off the diagnosis. Last Assessment & Plan: Patients notes indicates, that she has schizophrenia. Has been on Thorazine, haldol and invega. These drugs gave her tardive dyskinesia. She was put on tetrabenzine for it, worked miracles with her and then she got some parkinson's like features. She couldn't even feed herself. She tried the medication twice. Currently she is not on any psychotic medications. Movement disorder 12/28/2012 08/12/2016 Last Assessment & Plan: Patient is here today, sitting in front of me, very restless, constantly moving her feet, knees, things, neck, in what looks like tardive dyskinesia. It happens 2/3 times a week continues for many hours before she can get Rest from it, she said starting or increasing doses of neurontin, have not made the episodes any worse. She can talk to us without a problem and although she looks very uncomfortable to me she says he is doing fine and this will just pass. She is on requip. And recently started on Gabapentin, we are decreasing her requip. She was on haldol many years ago she says for her depression. She says she has parkinsons and told me she is taking propranolol for it. I thinks she has not got it right. She does not know of any aggravating and relieving factors for these episodes. Wheezing 11/29/2012 08/12/2016 Last Assessment & Plan: Patient is audibly wheezing right now. She recently had asthmatic bronchitis and pneumonia, said she is prone to have it. had a course of levaquin. Steroids and bronchodilators. Schizoaffective disorder 11/15/2012 017 Overview: [facility] But [facility] it according to her. Last Assessment & Plan: [facility], But they changed it according to her. Parkinson disease 11/15/2012 12/03/2017 Overview: [place], [place] I went through a lot of DR. Cevallos notes from [facility]. he does not seem to think she has parkinson's. She had drug induced parkinson's like symptoms that resolved when she stopped taking the inciting medications. Last Assessment & Plan: She will send me a note from him of his latest assessment. documented as of this encounter (statuses as of 01/19/2022) [facility]05[facility]2017 History of Past illness Narrative* Problem Noted Date Resolved Date Post-operative pain 07/10/2016 08/12/2016 Hypomagnesemia 07/10/2016 07/10/2016 Full incontinence of feces 07/08/201607/10 Ankle instability 04/07/2016 08/12/2016 Posterior tibial tendonitis 04/07/201607/17 Trigger thumb of right hand 11/04/201507/17 Cramp in muscle 04/15/2015 08/12/2016 Primary insomnia 03/19/2015 08/12/2016 Last Assessment & Plan: Struggling with insomnia Pain in left knee 12/03/2014 08/12/2016 Overview: Patient has left knee pain , that got better with PT. Last Assessment & Plan: She is going for PT and now she feels better. significantly Weakness of left leg 11/04/2014 08/12/2016 Pain in joint, lower leg 02/19/2014 017 Tingling in extremities 10/11/2013 10/07/19 17 Overview: She is having tingling in her left thigh, that comes and goes. Going on for a couple months , but since the last 2 weeks she has been having it all the time. Last Assessment & Plan: She is having tingling in her left thigh, that comes and goes. Going on for a couple months , but since the last 2 weeks she has been having it all the time. Urgency of urination 03/09/2013 07/11/2013 Frequency of urination 03/09/2013 4 Last Assessment & Plan: Urinary incontinence is being followed and evaluated by Dr Vazquez, she is having some urodynamic studies done. i reveiwed Dr. Fernandez notes. Obesity 03/09/2013 10/06/2016 Overview: 04/25/13 BMI 48.43. Normal BMI 18.5-25, normal weight range of 112-150 pounds in a person 5 feet 5 inches tall. Last Assessment & Plan: Gaining weight since she has not been able to exercise due to her surgeries. Nausea 02/09/2013 08/12/2016 Last Assessment & Plan: Patient has some nausea recently, is on macrobid for suspected UTI, when she came in last week. Since all her tests are negative including urine culture.i am discontinuing that SOB (shortness of breath) on exertion 02/09/2013 08/12/2016 Last Assessment & Plan: The patient has SOB which was extensively evaluated, initially it was thought to be from asthma. After seeing the family consumer science teacher and all evaluation complete it was thought to from restriction of the lungs from her weight. She also has sleep apnea, needs oxygen bled into the cpap machine, as the desaturations at night time does not normalize with out bleeding oxygen in. Today we checked her oxygen , the results are below. resting with o2 at 3liters- 91% resting room air o2 sat- 90% activity room air o2 sat- 84% activity with nc at 3liters- 91% Urinary incontinence 02/09/2013 03/28/2013 Last Assessment & Plan: Patient is having the incontinence for a month. She is on vesicare but it does not help her. Prior to this she had some leakage and dribbling but it was never this bad. She has been having a lot of accidents in the last month. She is indeed a very complex patient and i would like to refer her to a Urologist so he can evaluate her bladder dynamics. Schizophrenia 01/04/2013 02/06/2014 Overview: Dr Delaney is her psychologist . Has not seen him for a year. Patient says that the diagnosis of schizophrenia was taken off the diagnosis. Last Assessment & Plan: Patients notes indicates, that she has schizophrenia. Has been on Thorazine, haldol and invega. These drugs gave her tardive dyskinesia. She was put on tetrabenzine for it, worked miracles with her and then she got some parkinson's like features. She couldn't even feed herself. She tried the medication twice. Currently she is not on any psychotic medications. Movement disorder 12/28/2012 08/12/2016 Last Assessment & Plan: Patient is here today, sitting in front of me, very restless, constantly moving her feet, knees, things, neck, in what looks like tardive dyskinesia. It happens 2/3 times a week continues for many hours before she can get Rest from it, she said starting or increasing doses of neurontin, have not made the episodes any worse. She can talk to us without a problem and although she looks very uncomfortable to me she says he is doing fine and this will just pass. She is on requip. And recently started on Gabapentin, we are decreasing her requip. She was on haldol many years ago she says for her depression. She says she has parkinsons and told me she is taking propranolol for it. I thinks she has not got it right. She does not know of any aggravating and relieving factors for these episodes. Wheezing 11/29/2012 08/12/2016 Last Assessment & Plan: Patient is audibly wheezing right now. She recently had asthmatic bronchitis and pneumonia, said she is prone to have it. had a course of levaquin. Steroids and bronchodilators. Schizoaffective disorder 11/15/2012 017 Overview: [facility] But [facility] it according to her. Last Assessment & Plan: [facility], But they changed it according to her. Parkinson disease 11/15/2012 12/03/2017 Overview: [place], [place] I went through a lot of DR[facility]allos [facility]. he does not seem to think she has parkinson's. She had drug induced parkinson's like symptoms that resolved when she stopped taking the inciting medications. Last Assessment & Plan: She will send me a note from him of his latest assessment. documented as of this encounter (statuses as of 01/20/2022) [facility]2017 History of Past illness Narrative* Problem Noted Date Resolved Date Post-operative pain 07/10/2016 08/12/2016 Hypomagnesemia 07/10/2016 07/10/2016 Full incontinence of feces 07/08/201607/10 Ankle instability 04/07/2016 08/12/2016 Posterior tibial tendonitis 04/07/201607/17 Trigger thumb of right hand 11/04/201507/17 Cramp in muscle 04/15/2015 08/12/2016 Primary insomnia 03/19/2015 08/12/2016 Last Assessment & Plan: Struggling with insomnia Pain in left knee 12/03/2014 08/12/2016 Overview: Patient has left knee pain , that got better with PT. Last Assessment & Plan: She is going for PT and now she feels better. significantly Weakness of left leg 11/04/2014 08/12/2016 Pain in joint, lower leg 02/19/2014 017 Tingling in extremities 10/11/2013 10/07/19 17 Overview: She is having tingling in her left thigh, that comes and goes. Going on for a couple months , but since the last 2 weeks she has been having it all the time. Last Assessment & Plan: She is having tingling in her left thigh, that comes and goes. Going on for a couple months , but since the last 2 weeks she has been having it all the time. Urgency of urination 03/09/2013 07/11/2013 Frequency of urination 03/09/2013 4 Last Assessment & Plan: Urinary incontinence is being followed and evaluated by Dr Vazquez, she is having some urodynamic studies done. i reveiwed Dr. Fernandez notes. Obesity 03/09/2013 10/06/2016 Overview: 04/25/13 BMI 48.43. Normal BMI 18.5-25, normal weight range of 112-150 pounds in a person 5 feet 5 inches tall. Last Assessment & Plan: Gaining weight since she has not been able to exercise due to her surgeries. Nausea 02/09/2013 08/12/2016 Last Assessment & Plan: Patient has some nausea recently, is on macrobid for suspected UTI, when she came in last week. Since all her tests are negative including urine culture.i am discontinuing that SOB (shortness of breath) on exertion 02/09/2013 08/12/2016 Last Assessment & Plan: The patient has SOB which was extensively evaluated, initially it was thought to be from asthma. After seeing the family consumer science teacher and all evaluation complete it was thought to from restriction of the lungs from her weight. She also has sleep apnea, needs oxygen bled into the cpap machine, as the desaturations at night time does not normalize with out bleeding oxygen in. Today we checked her oxygen , the results are below. resting with o2 at 3liters- 91% resting room air o2 sat- 90% activity room air o2 sat- 84% activity with nc at 3liters- 91% Urinary incontinence 02/09/2013 03/28/2013 Last Assessment & Plan: Patient is having the incontinence for a month. She is on vesicare but it does not help her. Prior to this she had some leakage and dribbling but it was never this bad. She has been having a lot of accidents in the last month. She is indeed a very complex patient and i would like to refer her to a Urologist so he can evaluate her bladder dynamics. Schizophrenia 01/04/2013 02/06/2014 Overview: Dr Delaney is her psychologist . Has not seen him for a year. Patient says that the diagnosis of schizophrenia was taken off the diagnosis. Last Assessment & Plan: Patients notes indicates, that she has schizophrenia. Has been on Thorazine, haldol and invega. These drugs gave her tardive dyskinesia. She was put on tetrabenzine for it, worked miracles with her and then she got some parkinson's like features. She couldn't even feed herself. She tried the medication twice. Currently she is not on any psychotic medications. Movement disorder 12/28/2012 08/12/2016 Last Assessment & Plan: Patient is here today, sitting in front of me, very restless, constantly moving her feet, knees, things, neck, in what looks like tardive dyskinesia. It happens 2/3 times a week continues for many hours before she can get Rest from it, she said starting or increasing doses of neurontin, have not made the episodes any worse. She can talk to us without a problem and although she looks very uncomfortable to me she says he is doing fine and this will just pass. She is on requip. And recently started on Gabapentin, we are decreasing her requip. She was on haldol many years ago she says for her depression. She says she has parkinsons and told me she is taking propranolol for it. I thinks she has not got it right. She does not know of any aggravating and relieving factors for these episodes. Wheezing 11/29/2012 08/12/2016 Last Assessment & Plan: Patient is audibly wheezing right now. She recently had asthmatic bronchitis and pneumonia, said she is prone to have it. had a course of levaquin. Steroids and bronchodilators. Schizoaffective disorder 11/15/2012 017 Overview: [facility] But [facility] it according to her. Last Assessment & Plan: [facility], But they changed it according to her. Parkinson disease 11/15/2012 12/03/2017 Overview: [place], [place] I went through a lot of [facility]os [facility]. he does not seem to think she has parkinson's. She had drug induced parkinson's like symptoms that resolved when she stopped taking the inciting medications. Last Assessment & Plan: She will send me a note from him of his latest assessment. documented as of this encounter (statuses as of 01/20/2022) [facility] History of Past illness Narrative* Problem Noted Date Resolved Date Post-operative pain 07/10/2016 08/12/2016 Hypomagnesemia 07/10/2016 07/10/2016 Full incontinence of feces 07/08/201607/10 Ankle instability 04/07/2016 08/12/2016 Posterior tibial tendonitis 04/07/201607/17 Trigger thumb of right hand 11/04/201507/17 Cramp in muscle 04/15/2015 08/12/2016 Primary insomnia 03/19/2015 08/12/2016 Last Assessment & Plan: Struggling with insomnia Pain in left knee 12/03/2014 08/12/2016 Overview: Patient has left knee pain , that got better with PT. Last Assessment & Plan: She is going for PT and now she feels better. significantly Weakness of left leg 11/04/2014 08/12/2016 Pain in joint, lower leg 02/19/2014 017 Tingling in extremities 10/11/2013 10/07/19 17 Overview: She is having tingling in her left thigh, that comes and goes. Going on for a couple months , but since the last 2 weeks she has been having it all the time. Last Assessment & Plan: She is having tingling in her left thigh, that comes and goes. Going on for a couple months , but since the last 2 weeks she has been having it all the time. Urgency of urination 03/09/2013 07/11/2013 Frequency of urination 03/09/2013 4 Last Assessment & Plan: Urinary incontinence is being followed and evaluated by Dr Vazquez, she is having some urodynamic studies done. i reveiwed Dr. Fernandez notes. Obesity 03/09/2013 10/06/2016 Overview: 04/25/13 BMI 48.43. Normal BMI 18.5-25, normal weight range of 112-150 pounds in a person 5 feet 5 inches tall. Last Assessment & Plan: Gaining weight since she has not been able to exercise due to her surgeries. Nausea 02/09/2013 08/12/2016 Last Assessment & Plan: Patient has some nausea recently, is on macrobid for suspected UTI, when she came in last week. Since all her tests are negative including urine culture.i am discontinuing that SOB (shortness of breath) on exertion 02/09/2013 08/12/2016 Last Assessment & Plan: The patient has SOB which was extensively evaluated, initially it was thought to be from asthma. After seeing the family consumer science teacher and all evaluation complete it was thought to from restriction of the lungs from her weight. She also has sleep apnea, needs oxygen bled into the cpap machine, as the desaturations at night time does not normalize with out bleeding oxygen in. Today we checked her oxygen , the results are below. resting with o2 at 3liters- 91% resting room air o2 sat- 90% activity room air o2 sat- 84% activity with nc at 3liters- 91% Urinary incontinence 02/09/2013 03/28/2013 Last Assessment & Plan: Patient is having the incontinence for a month. She is on vesicare but it does not help her. Prior to this she had some leakage and dribbling but it was never this bad. She has been having a lot of accidents in the last month. She is indeed a very complex patient and i would like to refer her to a Urologist so he can evaluate her bladder dynamics. Schizophrenia 01/04/2013 02/06/2014 Overview: Dr Delaney is her psychologist . Has not seen him for a year. Patient says that the diagnosis of schizophrenia was taken off the diagnosis. Last Assessment & Plan: Patients notes indicates, that she has schizophrenia. Has been on Thorazine, haldol and invega. These drugs gave her tardive dyskinesia. She was put on tetrabenzine for it, worked miracles with her and then she got some parkinson's like features. She couldn't even feed herself. She tried the medication twice. Currently she is not on any psychotic medications. Movement disorder 12/28/2012 08/12/2016 Last Assessment & Plan: Patient is here today, sitting in front of me, very restless, constantly moving her feet, knees, things, neck, in what looks like tardive dyskinesia. It happens 2/3 times a week continues for many hours before she can get Rest from it, she said starting or increasing doses of neurontin, have not made the episodes any worse. She can talk to us without a problem and although she looks very uncomfortable to me she says he is doing fine and this will just pass. She is on requip. And recently started on Gabapentin, we are decreasing her requip. She was on haldol many years ago she says for her depression. She says she has parkinsons and told me she is taking propranolol for it. I thinks she has not got it right. She does not know of any aggravating and relieving factors for these episodes. Wheezing 11/29/2012 08/12/2016 Last Assessment & Plan: Patient is audibly wheezing right now. She recently had asthmatic bronchitis and pneumonia, said she is prone to have it. had a course of levaquin. Steroids and bronchodilators. Schizoaffective disorder 11/15/2012 017 Overview: [facility] But [facility] it according to her. Last Assessment & Plan: [facility], But they changed it according to her. Parkinson disease 11/15/2012 12/03/2017 Overview: Radha [place], [place] I went through a lot of DR[facility] Cevallos [facility]. he does not seem to think she has parkinson's. She had drug induced parkinson's like symptoms that resolved when she stopped taking the inciting medications. Last Assessment & Plan: She will send me a note from him of his latest assessment. documented as of this encounter (statuses as of 01/21/2022) [facility]05-[facility]2017 History of Past illness Narrative* Problem Noted Date Resolved Date Post-operative pain 07/10/2016 08/12/2016 Hypomagnesemia 07/10/2016 07/10/2016 Full incontinence of feces 07/08/201607/10 Ankle instability 04/07/2016 08/12/2016 Posterior tibial tendonitis 04/07/201607/17 Trigger thumb of right hand 11/04/201507/17 Cramp in muscle 04/15/2015 08/12/2016 Primary insomnia 03/19/2015 08/12/2016 Last Assessment & Plan: Struggling with insomnia Pain in left knee 12/03/2014 08/12/2016 Overview: Patient has left knee pain , that got better with PT. Last Assessment & Plan: She is going for PT and now she feels better. significantly Weakness of left leg 11/04/2014 08/12/2016 Pain in joint, lower leg 02/19/2014 017 Tingling in extremities 10/11/2013 10/07/19 17 Overview: She is having tingling in her left thigh, that comes and goes. Going on for a couple months , but since the last 2 weeks she has been having it all the time. Last Assessment & Plan: She is having tingling in her left thigh, that comes and goes. Going on for a couple months , but since the last 2 weeks she has been having it all the time. Urgency of urination 03/09/2013 07/11/2013 Frequency of urination 03/09/2013 4 Last Assessment & Plan: Urinary incontinence is being followed and evaluated by Dr Vazquez, she is having some urodynamic studies done. i reveiwed Dr. Fernandez notes. Obesity 03/09/2013 10/06/2016 Overview: 04/25/13 BMI 48.43. Normal BMI 18.5-25, normal weight range of 112-150 pounds in a person 5 feet 5 inches tall. Last Assessment & Plan: Gaining weight since she has not been able to exercise due to her surgeries. Nausea 02/09/2013 08/12/2016 Last Assessment & Plan: Patient has some nausea recently, is on macrobid for suspected UTI, when she came in last week. Since all her tests are negative including urine culture.i am discontinuing that SOB (shortness of breath) on exertion 02/09/2013 08/12/2016 Last Assessment & Plan: The patient has SOB which was extensively evaluated, initially it was thought to be from asthma. After seeing the family consumer science teacher and all evaluation complete it was thought to from restriction of the lungs from her weight. She also has sleep apnea, needs oxygen bled into the cpap machine, as the desaturations at night time does not normalize with out bleeding oxygen in. Today we checked her oxygen , the results are below. resting with o2 at 3liters- 91% resting room air o2 sat- 90% activity room air o2 sat- 84% activity with nc at 3liters- 91% Urinary incontinence 02/09/2013 03/28/2013 Last Assessment & Plan: Patient is having the incontinence for a month. She is on vesicare but it does not help her. Prior to this she had some leakage and dribbling but it was never this bad. She has been having a lot of accidents in the last month. She is indeed a very complex patient and i would like to refer her to a Urologist so he can evaluate her bladder dynamics. Schizophrenia 01/04/2013 02/06/2014 Overview: Dr Delaney is her psychologist . Has not seen him for a year. Patient says that the diagnosis of schizophrenia was taken off the diagnosis. Last Assessment & Plan: Patients notes indicates, that she has schizophrenia. Has been on Thorazine, haldol and invega. These drugs gave her tardive dyskinesia. She was put on tetrabenzine for it, worked miracles with her and then she got some parkinson's like features. She couldn't even feed herself. She tried the medication twice. Currently she is not on any psychotic medications. Movement disorder 12/28/2012 08/12/2016 Last Assessment & Plan: Patient is here today, sitting in front of me, very restless, constantly moving her feet, knees, things, neck, in what looks like tardive dyskinesia. It happens 2/3 times a week continues for many hours before she can get Rest from it, she said starting or increasing doses of neurontin, have not made the episodes any worse. She can talk to us without a problem and although she looks very uncomfortable to me she says he is doing fine and this will just pass. She is on requip. And recently started on Gabapentin, we are decreasing her requip. She was on haldol many years ago she says for her depression. She says she has parkinsons and told me she is taking propranolol for it. I thinks she has not got it right. She does not know of any aggravating and relieving factors for these episodes. Wheezing 11/29/2012 08/12/2016 Last Assessment & Plan: Patient is audibly wheezing right now. She recently had asthmatic bronchitis and pneumonia, said she is prone to have it. had a course of levaquin. Steroids and bronchodilators. Schizoaffective disorder 11/15/2012 017 Overview: [facility] But [facility] it according to her. Last Assessment & Plan: [facility], But they changed it according to her. Parkinson disease 11/15/2012 12/03/2017 Overview: Radha [place], [place] I went through a lot of DR. Cevallos notes from [facility]. he does not seem to think she has parkinson's. She had drug induced parkinson's like symptoms that resolved when she stopped taking the inciting medications. Last Assessment & Plan: She will send me a note from him of his latest assessment. documented as of this encounter (statuses as of 01/22/2022) [facility]05[facility]2017 History of Past illness Narrative* Problem Noted Date Resolved Date Post-operative pain 07/10/2016 08/12/2016 Hypomagnesemia 07/10/2016 07/10/2016 Full incontinence of feces 07/08/201607/10 Ankle instability 04/07/2016 08/12/2016 Posterior tibial tendonitis 04/07/201607/17 Trigger thumb of right hand 11/04/201507/17 Cramp in muscle 04/15/2015 08/12/2016 Primary insomnia 03/19/2015 08/12/2016 Last Assessment & Plan: Struggling with insomnia Pain in left knee 12/03/2014 08/12/2016 Overview: Patient has left knee pain , that got better with PT. Last Assessment & Plan: She is going for PT and now she feels better. significantly Weakness of left leg 11/04/2014 08/12/2016 Pain in joint, lower leg 02/19/2014 017 Tingling in extremities 10/11/2013 10/07/19 17 Overview: She is having tingling in her left thigh, that comes and goes. Going on for a couple months , but since the last 2 weeks she has been having it all the time. Last Assessment & Plan: She is having tingling in her left thigh, that comes and goes. Going on for a couple months , but since the last 2 weeks she has been having it all the time. Urgency of urination 03/09/2013 07/11/2013 Frequency of urination 03/09/2013 4 Last Assessment & Plan: Urinary incontinence is being followed and evaluated by Dr Vazquez, she is having some urodynamic studies done. i reveiwed Dr. Fernandez notes. Obesity 03/09/2013 10/06/2016 Overview: 04/25/13 BMI 48.43. Normal BMI 18.5-25, normal weight range of 112-150 pounds in a person 5 feet 5 inches tall. Last Assessment & Plan: Gaining weight since she has not been able to exercise due to her surgeries. Nausea 02/09/2013 08/12/2016 Last Assessment & Plan: Patient has some nausea recently, is on macrobid for suspected UTI, when she came in last week. Since all her tests are negative including urine culture.i am discontinuing that SOB (shortness of breath) on exertion 02/09/2013 08/12/2016 Last Assessment & Plan: The patient has SOB which was extensively evaluated, initially it was thought to be from asthma. After seeing the family consumer science teacher and all evaluation complete it was thought to from restriction of the lungs from her weight. She also has sleep apnea, needs oxygen bled into the cpap machine, as the desaturations at night time does not normalize with out bleeding oxygen in. Today we checked her oxygen , the results are below. resting with o2 at 3liters- 91% resting room air o2 sat- 90% activity room air o2 sat- 84% activity with nc at 3liters- 91% Urinary incontinence 02/09/2013 03/28/2013 Last Assessment & Plan: Patient is having the incontinence for a month. She is on vesicare but it does not help her. Prior to this she had some leakage and dribbling but it was never this bad. She has been having a lot of accidents in the last month. She is indeed a very complex patient and i would like to refer her to a Urologist so he can evaluate her bladder dynamics. Schizophrenia 01/04/2013 02/06/2014 Overview: Dr Delaney is her psychologist . Has not seen him for a year. Patient says that the diagnosis of schizophrenia was taken off the diagnosis. Last Assessment & Plan: Patients notes indicates, that she has schizophrenia. Has been on Thorazine, haldol and invega. These drugs gave her tardive dyskinesia. She was put on tetrabenzine for it, worked miracles with her and then she got some parkinson's like features. She couldn't even feed herself. She tried the medication twice. Currently she is not on any psychotic medications. Movement disorder 12/28/2012 08/12/2016 Last Assessment & Plan: Patient is here today, sitting in front of me, very restless, constantly moving her feet, knees, things, neck, in what looks like tardive dyskinesia. It happens 2/3 times a week continues for many hours before she can get Rest from it, she said starting or increasing doses of neurontin, have not made the episodes any worse. She can talk to us without a problem and although she looks very uncomfortable to me she says he is doing fine and this will just pass. She is on requip. And recently started on Gabapentin, we are decreasing her requip. She was on haldol many years ago she says for her depression. She says she has parkinsons and told me she is taking propranolol for it. I thinks she has not got it right. She does not know of any aggravating and relieving factors for these episodes. Wheezing 11/29/2012 08/12/2016 Last Assessment & Plan: Patient is audibly wheezing right now. She recently had asthmatic bronchitis and pneumonia, said she is prone to have it. had a course of levaquin. Steroids and bronchodilators. Schizoaffective disorder 11/15/2012 017 Overview: [facility] But [facility] it according to her. Last Assessment & Plan: [facility], But they changed it according to her. Parkinson disease 11/15/2012 12/03/2017 Overview: Radha [place], [place] I went through a lot of [facility]allos [facility]. he does not seem to think she has parkinson's. She had drug induced parkinson's like symptoms that resolved when she stopped taking the inciting medications. Last Assessment & Plan: She will send me a note from him of his latest assessment. documented as of this encounter (statuses as of 01/27/2022) [facility]2017 History of Past illness Narrative* Problem Noted Date Resolved Date Post-operative pain 07/10/2016 08/12/2016 Hypomagnesemia 07/10/2016 07/10/2016 Full incontinence of feces 07/08/201607/10 Ankle instability 04/07/2016 08/12/2016 Posterior tibial tendonitis 04/07/201607/17 Trigger thumb of right hand 11/04/201507/17 Cramp in muscle 04/15/2015 08/12/2016 Primary insomnia 03/19/2015 08/12/2016 Last Assessment & Plan: Struggling with insomnia Pain in left knee 12/03/2014 08/12/2016 Overview: Patient has left knee pain , that got better with PT. Last Assessment & Plan: She is going for PT and now she feels better. significantly Weakness of left leg 11/04/2014 08/12/2016 Pain in joint, lower leg 02/19/2014 017 Tingling in extremities 10/11/2013 10/07/19 17 Overview: She is having tingling in her left thigh, that comes and goes. Going on for a couple months , but since the last 2 weeks she has been having it all the time. Last Assessment & Plan: She is having tingling in her left thigh, that comes and goes. Going on for a couple months , but since the last 2 weeks she has been having it all the time. Urgency of urination 03/09/2013 07/11/2013 Frequency of urination 03/09/2013 4 Last Assessment & Plan: Urinary incontinence is being followed and evaluated by Dr Vazquez, she is having some urodynamic studies done. i reveiwed Dr. Fernandez notes. Obesity 03/09/2013 10/06/2016 Overview: 04/25/13 BMI 48.43. Normal BMI 18.5-25, normal weight range of 112-150 pounds in a person 5 feet 5 inches tall. Last Assessment & Plan: Gaining weight since she has not been able to exercise due to her surgeries. Nausea 02/09/2013 08/12/2016 Last Assessment & Plan: Patient has some nausea recently, is on macrobid for suspected UTI, when she came in last week. Since all her tests are negative including urine culture.i am discontinuing that SOB (shortness of breath) on exertion 02/09/2013 08/12/2016 Last Assessment & Plan: The patient has SOB which was extensively evaluated, initially it was thought to be from asthma. After seeing the family consumer science teacher and all evaluation complete it was thought to from restriction of the lungs from her weight. She also has sleep apnea, needs oxygen bled into the cpap machine, as the desaturations at night time does not normalize with out bleeding oxygen in. Today we checked her oxygen , the results are below. resting with o2 at 3liters- 91% resting room air o2 sat- 90% activity room air o2 sat- 84% activity with nc at 3liters- 91% Urinary incontinence 02/09/2013 03/28/2013 Last Assessment & Plan: Patient is having the incontinence for a month. She is on vesicare but it does not help her. Prior to this she had some leakage and dribbling but it was never this bad. She has been having a lot of accidents in the last month. She is indeed a very complex patient and i would like to refer her to a Urologist so he can evaluate her bladder dynamics. Schizophrenia 01/04/2013 02/06/2014 Overview: Dr Delaney is her psychologist . Has not seen him for a year. Patient says that the diagnosis of schizophrenia was taken off the diagnosis. Last Assessment & Plan: Patients notes indicates, that she has schizophrenia. Has been on Thorazine, haldol and invega. These drugs gave her tardive dyskinesia. She was put on tetrabenzine for it, worked miracles with her and then she got some parkinson's like features. She couldn't even feed herself. She tried the medication twice. Currently she is not on any psychotic medications. Movement disorder 12/28/2012 08/12/2016 Last Assessment & Plan: Patient is here today, sitting in front of me, very restless, constantly moving her feet, knees, things, neck, in what looks like tardive dyskinesia. It happens 2/3 times a week continues for many hours before she can get Rest from it, she said starting or increasing doses of neurontin, have not made the episodes any worse. She can talk to us without a problem and although she looks very uncomfortable to me she says he is doing fine and this will just pass. She is on requip. And recently started on Gabapentin, we are decreasing her requip. She was on haldol many years ago she says for her depression. She says she has parkinsons and told me she is taking propranolol for it. I thinks she has not got it right. She does not know of any aggravating and relieving factors for these episodes. Wheezing 11/29/2012 08/12/2016 Last Assessment & Plan: Patient is audibly wheezing right now. She recently had asthmatic bronchitis and pneumonia, said she is prone to have it. had a course of levaquin. Steroids and bronchodilators. Schizoaffective disorder 11/15/2012 017 Overview: [facility] But [facility] it according to her. Last Assessment & Plan: [facility], But they changed it according to her. Parkinson disease 11/15/2012 12/03/2017 Overview: [place], [place] I went through a lot of [facility]allos [facility]. he does not seem to think she has parkinson's. She had drug induced parkinson's like symptoms that resolved when she stopped taking the inciting medications. Last Assessment & Plan: She will send me a note from him of his latest assessment. documented as of this encounter (statuses as of 01/29/2022) [facility] History of Past illness Narrative* Problem Noted Date Resolved Date Post-operative pain 07/10/2016 08/12/2016 Hypomagnesemia 07/10/2016 07/10/2016 Full incontinence of feces 07/08/201607/10 Ankle instability 04/07/2016 08/12/2016 Posterior tibial tendonitis 04/07/201607/17 Trigger thumb of right hand 11/04/201507/17 Cramp in muscle 04/15/2015 08/12/2016 Primary insomnia 03/19/2015 08/12/2016 Last Assessment & Plan: Struggling with insomnia Pain in left knee 12/03/2014 08/12/2016 Overview: Patient has left knee pain , that got better with PT. Last Assessment & Plan: She is going for PT and now she feels better. significantly Weakness of left leg 11/04/2014 08/12/2016 Pain in joint, lower leg 02/19/2014 017 Tingling in extremities 10/11/2013 10/07/19 17 Overview: She is having tingling in her left thigh, that comes and goes. Going on for a couple months , but since the last 2 weeks she has been having it all the time. Last Assessment & Plan: She is having tingling in her left thigh, that comes and goes. Going on for a couple months , but since the last 2 weeks she has been having it all the time. Urgency of urination 03/09/2013 07/11/2013 Frequency of urination 03/09/2013 4 Last Assessment & Plan: Urinary incontinence is being followed and evaluated by Dr Vazquez, she is having some urodynamic studies done. i reveiwed Dr. Fernandez notes. Obesity 03/09/2013 10/06/2016 Overview: 04/25/13 BMI 48.43. Normal BMI 18.5-25, normal weight range of 112-150 pounds in a person 5 feet 5 inches tall. Last Assessment & Plan: Gaining weight since she has not been able to exercise due to her surgeries. Nausea 02/09/2013 08/12/2016 Last Assessment & Plan: Patient has some nausea recently, is on macrobid for suspected UTI, when she came in last week. Since all her tests are negative including urine culture.i am discontinuing that SOB (shortness of breath) on exertion 02/09/2013 08/12/2016 Last Assessment & Plan: The patient has SOB which was extensively evaluated, initially it was thought to be from asthma. After seeing the family consumer science teacher and all evaluation complete it was thought to from restriction of the lungs from her weight. She also has sleep apnea, needs oxygen bled into the cpap machine, as the desaturations at night time does not normalize with out bleeding oxygen in. Today we checked her oxygen , the results are below. resting with o2 at 3liters- 91% resting room air o2 sat- 90% activity room air o2 sat- 84% activity with nc at 3liters- 91% Urinary incontinence 02/09/2013 03/28/2013 Last Assessment & Plan: Patient is having the incontinence for a month. She is on vesicare but it does not help her. Prior to this she had some leakage and dribbling but it was never this bad. She has been having a lot of accidents in the last month. She is indeed a very complex patient and i would like to refer her to a Urologist so he can evaluate her bladder dynamics. Schizophrenia 01/04/2013 02/06/2014 Overview: Dr Delaney is her psychologist . Has not seen him for a year. Patient says that the diagnosis of schizophrenia was taken off the diagnosis. Last Assessment & Plan: Patients notes indicates, that she has schizophrenia. Has been on Thorazine, haldol and invega. These drugs gave her tardive dyskinesia. She was put on tetrabenzine for it, worked miracles with her and then she got some parkinson's like features. She couldn't even feed herself. She tried the medication twice. Currently she is not on any psychotic medications. Movement disorder 12/28/2012 08/12/2016 Last Assessment & Plan: Patient is here today, sitting in front of me, very restless, constantly moving her feet, knees, things, neck, in what looks like tardive dyskinesia. It happens 2/3 times a week continues for many hours before she can get Rest from it, she said starting or increasing doses of neurontin, have not made the episodes any worse. She can talk to us without a problem and although she looks very uncomfortable to me she says he is doing fine and this will just pass. She is on requip. And recently started on Gabapentin, we are decreasing her requip. She was on haldol many years ago she says for her depression. She says she has parkinsons and told me she is taking propranolol for it. I thinks she has not got it right. She does not know of any aggravating and relieving factors for these episodes. Wheezing 11/29/2012 08/12/2016 Last Assessment & Plan: Patient is audibly wheezing right now. She recently had asthmatic bronchitis and pneumonia, said she is prone to have it. had a course of levaquin. Steroids and bronchodilators. Schizoaffective disorder 11/15/2012 017 Overview: [facility] But [facility] it according to her. Last Assessment & Plan: [facility], But they changed it according to her. Parkinson disease 11/15/2012 12/03/2017 Overview: [place], [place] I went through a lot of [facility]allos [facility]. he does not seem to think she has parkinson's. She had drug induced parkinson's like symptoms that resolved when she stopped taking the inciting medications. Last Assessment & Plan: She will send me a note from him of his latest assessment. documented as of this encounter (statuses as of 02/02/2022) [facility] History of Past illness Narrative* Problem Noted Date Resolved Date Post-operative pain 07/10/2016 08/12/2016 Hypomagnesemia 07/10/2016 07/10/2016 Full incontinence of feces 07/08/201607/10 Ankle instability 04/07/2016 08/12/2016 Posterior tibial tendonitis 04/07/201607/17 Trigger thumb of right hand 11/04/201507/17 Cramp in muscle 04/15/2015 08/12/2016 Primary insomnia 03/19/2015 08/12/2016 Last Assessment & Plan: Struggling with insomnia Pain in left knee 12/03/2014 08/12/2016 Overview: Patient has left knee pain , that got better with PT. Last Assessment & Plan: She is going for PT and now she feels better. significantly Weakness of left leg 11/04/2014 08/12/2016 Pain in joint, lower leg 02/19/2014 017 Tingling in extremities 10/11/2013 10/07/19 17 Overview: She is having tingling in her left thigh, that comes and goes. Going on for a couple months , but since the last 2 weeks she has been having it all the time. Last Assessment & Plan: She is having tingling in her left thigh, that comes and goes. Going on for a couple months , but since the last 2 weeks she has been having it all the time. Urgency of urination 03/09/2013 07/11/2013 Frequency of urination 03/09/2013 4 Last Assessment & Plan: Urinary incontinence is being followed and evaluated by Dr Vazquez, she is having some urodynamic studies done. i reveiwed Dr. Fernandez notes. Obesity 03/09/2013 10/06/2016 Overview: 04/25/13 BMI 48.43. Normal BMI 18.5-25, normal weight range of 112-150 pounds in a person 5 feet 5 inches tall. Last Assessment & Plan: Gaining weight since she has not been able to exercise due to her surgeries. Nausea 02/09/2013 08/12/2016 Last Assessment & Plan: Patient has some nausea recently, is on macrobid for suspected UTI, when she came in last week. Since all her tests are negative including urine culture.i am discontinuing that SOB (shortness of breath) on exertion 02/09/2013 08/12/2016 Last Assessment & Plan: The patient has SOB which was extensively evaluated, initially it was thought to be from asthma. After seeing the family consumer science teacher and all evaluation complete it was thought to from restriction of the lungs from her weight. She also has sleep apnea, needs oxygen bled into the cpap machine, as the desaturations at night time does not normalize with out bleeding oxygen in. Today we checked her oxygen , the results are below. resting with o2 at 3liters- 91% resting room air o2 sat- 90% activity room air o2 sat- 84% activity with nc at 3liters- 91% Urinary incontinence 02/09/2013 03/28/2013 Last Assessment & Plan: Patient is having the incontinence for a month. She is on vesicare but it does not help her. Prior to this she had some leakage and dribbling but it was never this bad. She has been having a lot of accidents in the last month. She is indeed a very complex patient and i would like to refer her to a Urologist so he can evaluate her bladder dynamics. Schizophrenia 01/04/2013 02/06/2014 Overview: Dr Delaney is her psychologist . Has not seen him for a year. Patient says that the diagnosis of schizophrenia was taken off the diagnosis. Last Assessment & Plan: Patients notes indicates, that she has schizophrenia. Has been on Thorazine, haldol and invega. These drugs gave her tardive dyskinesia. She was put on tetrabenzine for it, worked miracles with her and then she got some parkinson's like features. She couldn't even feed herself. She tried the medication twice. Currently she is not on any psychotic medications. Movement disorder 12/28/2012 08/12/2016 Last Assessment & Plan: Patient is here today, sitting in front of me, very restless, constantly moving her feet, knees, things, neck, in what looks like tardive dyskinesia. It happens 2/3 times a week continues for many hours before she can get Rest from it, she said starting or increasing doses of neurontin, have not made the episodes any worse. She can talk to us without a problem and although she looks very uncomfortable to me she says he is doing fine and this will just pass. She is on requip. And recently started on Gabapentin, we are decreasing her requip. She was on haldol many years ago she says for her depression. She says she has parkinsons and told me she is taking propranolol for it. I thinks she has not got it right. She does not know of any aggravating and relieving factors for these episodes. Wheezing 11/29/2012 08/12/2016 Last Assessment & Plan: Patient is audibly wheezing right now. She recently had asthmatic bronchitis and pneumonia, said she is prone to have it. had a course of levaquin. Steroids and bronchodilators. Schizoaffective disorder 11/15/2012 017 Overview: [facility] But [facility] it according to her. Last Assessment & Plan: [facility], But they changed it according to her. Parkinson disease 11/15/2012 12/03/2017 Overview: Rad[place], [place] I went through a lot of DR. Cevallos [facility]. he does not seem to think she has parkinson's. She had drug induced parkinson's like symptoms that resolved when she stopped taking the inciting medications. Last Assessment & Plan: She will send me a note from him of his latest assessment. documented as of this encounter (statuses as of 02/02/2022) [facility]05-[facility]2017 History of Past illness Narrative* Problem Noted Date Resolved Date Post-operative pain 07/10/2016 08/12/2016 Hypomagnesemia 07/10/2016 07/10/2016 Full incontinence of feces 07/08/201607/10 Ankle instability 04/07/2016 08/12/2016 Posterior tibial tendonitis 04/07/201607/17 Trigger thumb of right hand 11/04/201507/17 Cramp in muscle 04/15/2015 08/12/2016 Primary insomnia 03/19/2015 08/12/2016 Last Assessment & Plan: Struggling with insomnia Pain in left knee 12/03/2014 08/12/2016 Overview: Patient has left knee pain , that got better with PT. Last Assessment & Plan: She is going for PT and now she feels better. significantly Weakness of left leg 11/04/2014 08/12/2016 Pain in joint, lower leg 02/19/2014 017 Tingling in extremities 10/11/2013 10/07/19 17 Overview: She is having tingling in her left thigh, that comes and goes. Going on for a couple months , but since the last 2 weeks she has been having it all the time. Last Assessment & Plan: She is having tingling in her left thigh, that comes and goes. Going on for a couple months , but since the last 2 weeks she has been having it all the time. Urgency of urination 03/09/2013 07/11/2013 Frequency of urination 03/09/2013 4 Last Assessment & Plan: Urinary incontinence is being followed and evaluated by Dr Vazquez, she is having some urodynamic studies done. i reveiwed Dr. Fernandez notes. Obesity 03/09/2013 10/06/2016 Overview: 04/25/13 BMI 48.43. Normal BMI 18.5-25, normal weight range of 112-150 pounds in a person 5 feet 5 inches tall. Last Assessment & Plan: Gaining weight since she has not been able to exercise due to her surgeries. Nausea 02/09/2013 08/12/2016 Last Assessment & Plan: Patient has some nausea recently, is on macrobid for suspected UTI, when she came in last week. Since all her tests are negative including urine culture.i am discontinuing that SOB (shortness of breath) on exertion 02/09/2013 08/12/2016 Last Assessment & Plan: The patient has SOB which was extensively evaluated, initially it was thought to be from asthma. After seeing the family consumer science teacher and all evaluation complete it was thought to from restriction of the lungs from her weight. She also has sleep apnea, needs oxygen bled into the cpap machine, as the desaturations at night time does not normalize with out bleeding oxygen in. Today we checked her oxygen , the results are below. resting with o2 at 3liters- 91% resting room air o2 sat- 90% activity room air o2 sat- 84% activity with nc at 3liters- 91% Urinary incontinence 02/09/2013 03/28/2013 Last Assessment & Plan: Patient is having the incontinence for a month. She is on vesicare but it does not help her. Prior to this she had some leakage and dribbling but it was never this bad. She has been having a lot of accidents in the last month. She is indeed a very complex patient and i would like to refer her to a Urologist so he can evaluate her bladder dynamics. Schizophrenia 01/04/2013 02/06/2014 Overview: Dr Delaney is her psychologist . Has not seen him for a year. Patient says that the diagnosis of schizophrenia was taken off the diagnosis. Last Assessment & Plan: Patients notes indicates, that she has schizophrenia. Has been on Thorazine, haldol and invega. These drugs gave her tardive dyskinesia. She was put on tetrabenzine for it, worked miracles with her and then she got some parkinson's like features. She couldn't even feed herself. She tried the medication twice. Currently she is not on any psychotic medications. Movement disorder 12/28/2012 08/12/2016 Last Assessment & Plan: Patient is here today, sitting in front of me, very restless, constantly moving her feet, knees, things, neck, in what looks like tardive dyskinesia. It happens 2/3 times a week continues for many hours before she can get Rest from it, she said starting or increasing doses of neurontin, have not made the episodes any worse. She can talk to us without a problem and although she looks very uncomfortable to me she says he is doing fine and this will just pass. She is on requip. And recently started on Gabapentin, we are decreasing her requip. She was on haldol many years ago she says for her depression. She says she has parkinsons and told me she is taking propranolol for it. I thinks she has not got it right. She does not know of any aggravating and relieving factors for these episodes. Wheezing 11/29/2012 08/12/2016 Last Assessment & Plan: Patient is audibly wheezing right now. She recently had asthmatic bronchitis and pneumonia, said she is prone to have it. had a course of levaquin. Steroids and bronchodilators. Schizoaffective disorder 11/15/2012 017 Overview: [facility], But [facility] it according to her. Last Assessment & Plan: [facility], But they changed it according to her. Parkinson disease 11/15/2012 12/03/2017 Overview: Radha [place], [place] I went through a lot of DR. Cevallos notes from [facility]. he does not seem to think she has parkinson's. She had drug induced parkinson's like symptoms that resolved when she stopped taking the inciting medications. Last Assessment & Plan: She will send me a note from him of his latest assessment. documented as of this encounter (statuses as of 02/04/2022) [facility]05[facility]2017 History of Past illness Narrative* Problem Noted Date Resolved Date Post-operative pain 07/10/2016 08/12/2016 Hypomagnesemia 07/10/2016 07/10/2016 Full incontinence of feces 07/08/201607/10 Ankle instability 04/07/2016 08/12/2016 Posterior tibial tendonitis 04/07/201607/17 Trigger thumb of right hand 11/04/201507/17 Cramp in muscle 04/15/2015 08/12/2016 Primary insomnia 03/19/2015 08/12/2016 Last Assessment & Plan: Struggling with insomnia Pain in left knee 12/03/2014 08/12/2016 Overview: Patient has left knee pain , that got better with PT. Last Assessment & Plan: She is going for PT and now she feels better. significantly Weakness of left leg 11/04/2014 08/12/2016 Pain in joint, lower leg 02/19/2014 017 Tingling in extremities 10/11/2013 10/07/19 17 Overview: She is having tingling in her left thigh, that comes and goes. Going on for a couple months , but since the last 2 weeks she has been having it all the time. Last Assessment & Plan: She is having tingling in her left thigh, that comes and goes. Going on for a couple months , but since the last 2 weeks she has been having it all the time. Urgency of urination 03/09/2013 07/11/2013 Frequency of urination 03/09/2013 4 Last Assessment & Plan: Urinary incontinence is being followed and evaluated by Dr Vazquez, she is having some urodynamic studies done. i reveiwed Dr. Fernandez notes. Obesity 03/09/2013 10/06/2016 Overview: 04/25/13 BMI 48.43. Normal BMI 18.5-25, normal weight range of 112-150 pounds in a person 5 feet 5 inches tall. Last Assessment & Plan: Gaining weight since she has not been able to exercise due to her surgeries. Nausea 02/09/2013 08/12/2016 Last Assessment & Plan: Patient has some nausea recently, is on macrobid for suspected UTI, when she came in last week. Since all her tests are negative including urine culture.i am discontinuing that SOB (shortness of breath) on exertion 02/09/2013 08/12/2016 Last Assessment & Plan: The patient has SOB which was extensively evaluated, initially it was thought to be from asthma. After seeing the family consumer science teacher and all evaluation complete it was thought to from restriction of the lungs from her weight. She also has sleep apnea, needs oxygen bled into the cpap machine, as the desaturations at night time does not normalize with out bleeding oxygen in. Today we checked her oxygen , the results are below. resting with o2 at 3liters- 91% resting room air o2 sat- 90% activity room air o2 sat- 84% activity with nc at 3liters- 91% Urinary incontinence 02/09/2013 03/28/2013 Last Assessment & Plan: Patient is having the incontinence for a month. She is on vesicare but it does not help her. Prior to this she had some leakage and dribbling but it was never this bad. She has been having a lot of accidents in the last month. She is indeed a very complex patient and i would like to refer her to a Urologist so he can evaluate her bladder dynamics. Schizophrenia 01/04/2013 02/06/2014 Overview: Dr Delaney is her psychologist . Has not seen him for a year. Patient says that the diagnosis of schizophrenia was taken off the diagnosis. Last Assessment & Plan: Patients notes indicates, that she has schizophrenia. Has been on Thorazine, haldol and invega. These drugs gave her tardive dyskinesia. She was put on tetrabenzine for it, worked miracles with her and then she got some parkinson's like features. She couldn't even feed herself. She tried the medication twice. Currently she is not on any psychotic medications. Movement disorder 12/28/2012 08/12/2016 Last Assessment & Plan: Patient is here today, sitting in front of me, very restless, constantly moving her feet, knees, things, neck, in what looks like tardive dyskinesia. It happens 2/3 times a week continues for many hours before she can get Rest from it, she said starting or increasing doses of neurontin, have not made the episodes any worse. She can talk to us without a problem and although she looks very uncomfortable to me she says he is doing fine and this will just pass. She is on requip. And recently started on Gabapentin, we are decreasing her requip. She was on haldol many years ago she says for her depression. She says she has parkinsons and told me she is taking propranolol for it. I thinks she has not got it right. She does not know of any aggravating and relieving factors for these episodes. Wheezing 11/29/2012 08/12/2016 Last Assessment & Plan: Patient is audibly wheezing right now. She recently had asthmatic bronchitis and pneumonia, said she is prone to have it. had a course of levaquin. Steroids and bronchodilators. Schizoaffective disorder 11/15/2012 017 Overview: [facility] But [facility] it according to her. Last Assessment & Plan: [facility], But they changed it according to her. Parkinson disease 11/15/2012 12/03/2017 Overview: [place], [place] I went through a lot of [facility]allos [facility]. he does not seem to think she has parkinson's. She had drug induced parkinson's like symptoms that resolved when she stopped taking the inciting medications. Last Assessment & Plan: She will send me a note from him of his latest assessment. documented as of this encounter (statuses as of 02/17/2022) [facility]2017 History of Past illness Narrative* Problem Noted Date Resolved Date Post-operative pain 07/10/2016 08/12/2016 Hypomagnesemia 07/10/2016 07/10/2016 Full incontinence of feces 07/08/201607/10 Ankle instability 04/07/2016 08/12/2016 Posterior tibial tendonitis 04/07/201607/17 Trigger thumb of right hand 11/04/201507/17 Cramp in muscle 04/15/2015 08/12/2016 Primary insomnia 03/19/2015 08/12/2016 Last Assessment & Plan: Struggling with insomnia Pain in left knee 12/03/2014 08/12/2016 Overview: Patient has left knee pain , that got better with PT. Last Assessment & Plan: She is going for PT and now she feels better. significantly Weakness of left leg 11/04/2014 08/12/2016 Pain in joint, lower leg 02/19/2014 017 Tingling in extremities 10/11/2013 10/07/19 17 Overview: She is having tingling in her left thigh, that comes and goes. Going on for a couple months , but since the last 2 weeks she has been having it all the time. Last Assessment & Plan: She is having tingling in her left thigh, that comes and goes. Going on for a couple months , but since the last 2 weeks she has been having it all the time. Urgency of urination 03/09/2013 07/11/2013 Frequency of urination 03/09/2013 4 Last Assessment & Plan: Urinary incontinence is being followed and evaluated by Dr Vazquez, she is having some urodynamic studies done. i reveiwed Dr. Fernandez notes. Obesity 03/09/2013 10/06/2016 Overview: 04/25/13 BMI 48.43. Normal BMI 18.5-25, normal weight range of 112-150 pounds in a person 5 feet 5 inches tall. Last Assessment & Plan: Gaining weight since she has not been able to exercise due to her surgeries. Nausea 02/09/2013 08/12/2016 Last Assessment & Plan: Patient has some nausea recently, is on macrobid for suspected UTI, when she came in last week. Since all her tests are negative including urine culture.i am discontinuing that SOB (shortness of breath) on exertion 02/09/2013 08/12/2016 Last Assessment & Plan: The patient has SOB which was extensively evaluated, initially it was thought to be from asthma. After seeing the family consumer science teacher and all evaluation complete it was thought to from restriction of the lungs from her weight. She also has sleep apnea, needs oxygen bled into the cpap machine, as the desaturations at night time does not normalize with out bleeding oxygen in. Today we checked her oxygen , the results are below. resting with o2 at 3liters- 91% resting room air o2 sat- 90% activity room air o2 sat- 84% activity with nc at 3liters- 91% Urinary incontinence 02/09/2013 03/28/2013 Last Assessment & Plan: Patient is having the incontinence for a month. She is on vesicare but it does not help her. Prior to this she had some leakage and dribbling but it was never this bad. She has been having a lot of accidents in the last month. She is indeed a very complex patient and i would like to refer her to a Urologist so he can evaluate her bladder dynamics. Schizophrenia 01/04/2013 02/06/2014 Overview: Dr Delaney is her psychologist . Has not seen him for a year. Patient says that the diagnosis of schizophrenia was taken off the diagnosis. Last Assessment & Plan: Patients notes indicates, that she has schizophrenia. Has been on Thorazine, haldol and invega. These drugs gave her tardive dyskinesia. She was put on tetrabenzine for it, worked miracles with her and then she got some parkinson's like features. She couldn't even feed herself. She tried the medication twice. Currently she is not on any psychotic medications. Movement disorder 12/28/2012 08/12/2016 Last Assessment & Plan: Patient is here today, sitting in front of me, very restless, constantly moving her feet, knees, things, neck, in what looks like tardive dyskinesia. It happens 2/3 times a week continues for many hours before she can get Rest from it, she said starting or increasing doses of neurontin, have not made the episodes any worse. She can talk to us without a problem and although she looks very uncomfortable to me she says he is doing fine and this will just pass. She is on requip. And recently started on Gabapentin, we are decreasing her requip. She was on haldol many years ago she says for her depression. She says she has parkinsons and told me she is taking propranolol for it. I thinks she has not got it right. She does not know of any aggravating and relieving factors for these episodes. Wheezing 11/29/2012 08/12/2016 Last Assessment & Plan: Patient is audibly wheezing right now. She recently had asthmatic bronchitis and pneumonia, said she is prone to have it. had a course of levaquin. Steroids and bronchodilators. Schizoaffective disorder 11/15/2012 017 Overview: [facility] But [facility] it according to her. Last Assessment & Plan: [facility], But they changed it according to her. Parkinson disease 11/15/2012 12/03/2017 Overview: [place], [place] I went through a lot of [facility]os [facility]. he does not seem to think she has parkinson's. She had drug induced parkinson's like symptoms that resolved when she stopped taking the inciting medications. Last Assessment & Plan: She will send me a note from him of his latest assessment. documented as of this encounter (statuses as of 02/18/2022) [facility] History of Past illness Narrative* Problem Noted Date Resolved Date Post-operative pain 07/10/2016 08/12/2016 Hypomagnesemia 07/10/2016 07/10/2016 Full incontinence of feces 07/08/201607/10 Ankle instability 04/07/2016 08/12/2016 Posterior tibial tendonitis 04/07/201607/17 Trigger thumb of right hand 11/04/201507/17 Cramp in muscle 04/15/2015 08/12/2016 Primary insomnia 03/19/2015 08/12/2016 Last Assessment & Plan: Struggling with insomnia Pain in left knee 12/03/2014 08/12/2016 Overview: Patient has left knee pain , that got better with PT. Last Assessment & Plan: She is going for PT and now she feels better. significantly Weakness of left leg 11/04/2014 08/12/2016 Pain in joint, lower leg 02/19/2014 017 Tingling in extremities 10/11/2013 10/07/19 17 Overview: She is having tingling in her left thigh, that comes and goes. Going on for a couple months , but since the last 2 weeks she has been having it all the time. Last Assessment & Plan: She is having tingling in her left thigh, that comes and goes. Going on for a couple months , but since the last 2 weeks she has been having it all the time. Urgency of urination 03/09/2013 07/11/2013 Frequency of urination 03/09/2013 4 Last Assessment & Plan: Urinary incontinence is being followed and evaluated by Dr Vazquez, she is having some urodynamic studies done. i reveiwed Dr. Fernandez notes. Obesity 03/09/2013 10/06/2016 Overview: 04/25/13 BMI 48.43. Normal BMI 18.5-25, normal weight range of 112-150 pounds in a person 5 feet 5 inches tall. Last Assessment & Plan: Gaining weight since she has not been able to exercise due to her surgeries. Nausea 02/09/2013 08/12/2016 Last Assessment & Plan: Patient has some nausea recently, is on macrobid for suspected UTI, when she came in last week. Since all her tests are negative including urine culture.i am discontinuing that SOB (shortness of breath) on exertion 02/09/2013 08/12/2016 Last Assessment & Plan: The patient has SOB which was extensively evaluated, initially it was thought to be from asthma. After seeing the family consumer science teacher and all evaluation complete it was thought to from restriction of the lungs from her weight. She also has sleep apnea, needs oxygen bled into the cpap machine, as the desaturations at night time does not normalize with out bleeding oxygen in. Today we checked her oxygen , the results are below. resting with o2 at 3liters- 91% resting room air o2 sat- 90% activity room air o2 sat- 84% activity with nc at 3liters- 91% Urinary incontinence 02/09/2013 03/28/2013 Last Assessment & Plan: Patient is having the incontinence for a month. She is on vesicare but it does not help her. Prior to this she had some leakage and dribbling but it was never this bad. She has been having a lot of accidents in the last month. She is indeed a very complex patient and i would like to refer her to a Urologist so he can evaluate her bladder dynamics. Schizophrenia 01/04/2013 02/06/2014 Overview: Dr Delaney is her psychologist . Has not seen him for a year. Patient says that the diagnosis of schizophrenia was taken off the diagnosis. Last Assessment & Plan: Patients notes indicates, that she has schizophrenia. Has been on Thorazine, haldol and invega. These drugs gave her tardive dyskinesia. She was put on tetrabenzine for it, worked miracles with her and then she got some parkinson's like features. She couldn't even feed herself. She tried the medication twice. Currently she is not on any psychotic medications. Movement disorder 12/28/2012 08/12/2016 Last Assessment & Plan: Patient is here today, sitting in front of me, very restless, constantly moving her feet, knees, things, neck, in what looks like tardive dyskinesia. It happens 2/3 times a week continues for many hours before she can get Rest from it, she said starting or increasing doses of neurontin, have not made the episodes any worse. She can talk to us without a problem and although she looks very uncomfortable to me she says he is doing fine and this will just pass. She is on requip. And recently started on Gabapentin, we are decreasing her requip. She was on haldol many years ago she says for her depression. She says she has parkinsons and told me she is taking propranolol for it. I thinks she has not got it right. She does not know of any aggravating and relieving factors for these episodes. Wheezing 11/29/2012 08/12/2016 Last Assessment & Plan: Patient is audibly wheezing right now. She recently had asthmatic bronchitis and pneumonia, said she is prone to have it. had a course of levaquin. Steroids and bronchodilators. Schizoaffective disorder 11/15/2012 05/09/2 017 Overview: [facility] But [facility] it according to her. Last Assessment & Plan: [facility], But they changed it according to her. Parkinson disease 11/15/2012 12/03/2017 Overview: Radha [place], [place] I went through a lot of DR[facility] Cevallos [facility]. he does not seem to think she has parkinson's. She had drug induced parkinson's like symptoms that resolved when she stopped taking the inciting medications. Last Assessment & Plan: She will send me a note from him of his latest assessment. documented as of this encounter (statuses as of 02/19/2022) [facility]05-[facility]2017 History of Past illness Narrative* Problem Noted Date Resolved Date Post-operative pain 07/10/2016 08/12/2016 Hypomagnesemia 07/10/2016 07/10/2016 Full incontinence of feces 07/08/201607/10 Ankle instability 04/07/2016 08/12/2016 Posterior tibial tendonitis 04/07/201607/17 Trigger thumb of right hand 11/04/201507/17 Cramp in muscle 04/15/2015 08/12/2016 Primary insomnia 03/19/2015 08/12/2016 Last Assessment & Plan: Struggling with insomnia Pain in left knee 12/03/2014 08/12/2016 Overview: Patient has left knee pain , that got better with PT. Last Assessment & Plan: She is going for PT and now she feels better. significantly Weakness of left leg 11/04/2014 08/12/2016 Pain in joint, lower leg 02/19/2014 017 Tingling in extremities 10/11/2013 10/07/19 17 Overview: She is having tingling in her left thigh, that comes and goes. Going on for a couple months , but since the last 2 weeks she has been having it all the time. Last Assessment & Plan: She is having tingling in her left thigh, that comes and goes. Going on for a couple months , but since the last 2 weeks she has been having it all the time. Urgency of urination 03/09/2013 07/11/2013 Frequency of urination 03/09/2013 4 Last Assessment & Plan: Urinary incontinence is being followed and evaluated by Dr Vazquez, she is having some urodynamic studies done. i reveiwed Dr. Fernandez notes. Obesity 03/09/2013 10/06/2016 Overview: 04/25/13 BMI 48.43. Normal BMI 18.5-25, normal weight range of 112-150 pounds in a person 5 feet 5 inches tall. Last Assessment & Plan: Gaining weight since she has not been able to exercise due to her surgeries. Nausea 02/09/2013 08/12/2016 Last Assessment & Plan: Patient has some nausea recently, is on macrobid for suspected UTI, when she came in last week. Since all her tests are negative including urine culture.i am discontinuing that SOB (shortness of breath) on exertion 02/09/2013 08/12/2016 Last Assessment & Plan: The patient has SOB which was extensively evaluated, initially it was thought to be from asthma. After seeing the family consumer science teacher and all evaluation complete it was thought to from restriction of the lungs from her weight. She also has sleep apnea, needs oxygen bled into the cpap machine, as the desaturations at night time does not normalize with out bleeding oxygen in. Today we checked her oxygen , the results are below. resting with o2 at 3liters- 91% resting room air o2 sat- 90% activity room air o2 sat- 84% activity with nc at 3liters- 91% Urinary incontinence 02/09/2013 03/28/2013 Last Assessment & Plan: Patient is having the incontinence for a month. She is on vesicare but it does not help her. Prior to this she had some leakage and dribbling but it was never this bad. She has been having a lot of accidents in the last month. She is indeed a very complex patient and i would like to refer her to a Urologist so he can evaluate her bladder dynamics. Schizophrenia 01/04/2013 02/06/2014 Overview: Dr Delaney is her psychologist . Has not seen him for a year. Patient says that the diagnosis of schizophrenia was taken off the diagnosis. Last Assessment & Plan: Patients notes indicates, that she has schizophrenia. Has been on Thorazine, haldol and invega. These drugs gave her tardive dyskinesia. She was put on tetrabenzine for it, worked miracles with her and then she got some parkinson's like features. She couldn't even feed herself. She tried the medication twice. Currently she is not on any psychotic medications. Movement disorder 12/28/2012 08/12/2016 Last Assessment & Plan: Patient is here today, sitting in front of me, very restless, constantly moving her feet, knees, things, neck, in what looks like tardive dyskinesia. It happens 2/3 times a week continues for many hours before she can get Rest from it, she said starting or increasing doses of neurontin, have not made the episodes any worse. She can talk to us without a problem and although she looks very uncomfortable to me she says he is doing fine and this will just pass. She is on requip. And recently started on Gabapentin, we are decreasing her requip. She was on haldol many years ago she says for her depression. She says she has parkinsons and told me she is taking propranolol for it. I thinks she has not got it right. She does not know of any aggravating and relieving factors for these episodes. Wheezing 11/29/2012 08/12/2016 Last Assessment & Plan: Patient is audibly wheezing right now. She recently had asthmatic bronchitis and pneumonia, said she is prone to have it. had a course of levaquin. Steroids and bronchodilators. Schizoaffective disorder 11/15/2012 017 Overview: [facility] But [facility] it according to her. Last Assessment & Plan: [facility], But they changed it according to her. Parkinson disease 11/15/2012 12/03/2017 Overview: Radha [place], [place] I went through a lot of DR. Cevallos notes from [facility]. he does not seem to think she has parkinson's. She had drug induced parkinson's like symptoms that resolved when she stopped taking the inciting medications. Last Assessment & Plan: She will send me a note from him of his latest assessment. documented as of this encounter (statuses as of 02/27/2022) [facility]05[facility]2017 History of Past illness Narrative* Problem Noted Date Resolved Date Post-operative pain 07/10/2016 08/12/2016 Hypomagnesemia 07/10/2016 07/10/2016 Full incontinence of feces 07/08/201607/10 Ankle instability 04/07/2016 08/12/2016 Posterior tibial tendonitis 04/07/201607/17 Trigger thumb of right hand 11/04/201507/17 Cramp in muscle 04/15/2015 08/12/2016 Primary insomnia 03/19/2015 08/12/2016 Last Assessment & Plan: Struggling with insomnia Pain in left knee 12/03/2014 08/12/2016 Overview: Patient has left knee pain , that got better with PT. Last Assessment & Plan: She is going for PT and now she feels better. significantly Weakness of left leg 11/04/2014 08/12/2016 Pain in joint, lower leg 02/19/2014 017 Tingling in extremities 10/11/2013 10/07/19 17 Overview: She is having tingling in her left thigh, that comes and goes. Going on for a couple months , but since the last 2 weeks she has been having it all the time. Last Assessment & Plan: She is having tingling in her left thigh, that comes and goes. Going on for a couple months , but since the last 2 weeks she has been having it all the time. Urgency of urination 03/09/2013 07/11/2013 Frequency of urination 03/09/2013 4 Last Assessment & Plan: Urinary incontinence is being followed and evaluated by Dr Vazquez, she is having some urodynamic studies done. i reveiwed Dr. Fernandez notes. Obesity 03/09/2013 10/06/2016 Overview: 04/25/13 BMI 48.43. Normal BMI 18.5-25, normal weight range of 112-150 pounds in a person 5 feet 5 inches tall. Last Assessment & Plan: Gaining weight since she has not been able to exercise due to her surgeries. Nausea 02/09/2013 08/12/2016 Last Assessment & Plan: Patient has some nausea recently, is on macrobid for suspected UTI, when she came in last week. Since all her tests are negative including urine culture.i am discontinuing that SOB (shortness of breath) on exertion 02/09/2013 08/12/2016 Last Assessment & Plan: The patient has SOB which was extensively evaluated, initially it was thought to be from asthma. After seeing the family consumer science teacher and all evaluation complete it was thought to from restriction of the lungs from her weight. She also has sleep apnea, needs oxygen bled into the cpap machine, as the desaturations at night time does not normalize with out bleeding oxygen in. Today we checked her oxygen , the results are below. resting with o2 at 3liters- 91% resting room air o2 sat- 90% activity room air o2 sat- 84% activity with nc at 3liters- 91% Urinary incontinence 02/09/2013 03/28/2013 Last Assessment & Plan: Patient is having the incontinence for a month. She is on vesicare but it does not help her. Prior to this she had some leakage and dribbling but it was never this bad. She has been having a lot of accidents in the last month. She is indeed a very complex patient and i would like to refer her to a Urologist so he can evaluate her bladder dynamics. Schizophrenia 01/04/2013 02/06/2014 Overview: Dr Delaney is her psychologist . Has not seen him for a year. Patient says that the diagnosis of schizophrenia was taken off the diagnosis. Last Assessment & Plan: Patients notes indicates, that she has schizophrenia. Has been on Thorazine, haldol and invega. These drugs gave her tardive dyskinesia. She was put on tetrabenzine for it, worked miracles with her and then she got some parkinson's like features. She couldn't even feed herself. She tried the medication twice. Currently she is not on any psychotic medications. Movement disorder 12/28/2012 08/12/2016 Last Assessment & Plan: Patient is here today, sitting in front of me, very restless, constantly moving her feet, knees, things, neck, in what looks like tardive dyskinesia. It happens 2/3 times a week continues for many hours before she can get Rest from it, she said starting or increasing doses of neurontin, have not made the episodes any worse. She can talk to us without a problem and although she looks very uncomfortable to me she says he is doing fine and this will just pass. She is on requip. And recently started on Gabapentin, we are decreasing her requip. She was on haldol many years ago she says for her depression. She says she has parkinsons and told me she is taking propranolol for it. I thinks she has not got it right. She does not know of any aggravating and relieving factors for these episodes. Wheezing 11/29/2012 08/12/2016 Last Assessment & Plan: Patient is audibly wheezing right now. She recently had asthmatic bronchitis and pneumonia, said she is prone to have it. had a course of levaquin. Steroids and bronchodilators. Schizoaffective disorder 11/15/2012 017 Overview: [facility] But [facility] it according to her. Last Assessment & Plan: [facility], But they changed it according to her. Parkinson disease 11/15/2012 12/03/2017 Overview: Radha [place], [place] I went through a lot of DR[facility]allos [facility]. he does not seem to think she has parkinson's. She had drug induced parkinson's like symptoms that resolved when she stopped taking the inciting medications. Last Assessment & Plan: She will send me a note from him of his latest assessment. documented as of this encounter (statuses as of 03/02/2022) [facility]2017 History of Past illness Narrative* Problem Noted Date Resolved Date Post-operative pain 07/10/2016 08/12/2016 Hypomagnesemia 07/10/2016 07/10/2016 Full incontinence of feces 07/08/201607/10 Ankle instability 04/07/2016 08/12/2016 Posterior tibial tendonitis 04/07/201607/17 Trigger thumb of right hand 11/04/201507/17 Cramp in muscle 04/15/2015 08/12/2016 Primary insomnia 03/19/2015 08/12/2016 Last Assessment & Plan: Struggling with insomnia Pain in left knee 12/03/2014 08/12/2016 Overview: Patient has left knee pain , that got better with PT. Last Assessment & Plan: She is going for PT and now she feels better. significantly Weakness of left leg 11/04/2014 08/12/2016 Pain in joint, lower leg 02/19/2014 017 Tingling in extremities 10/11/2013 10/07/19 17 Overview: She is having tingling in her left thigh, that comes and goes. Going on for a couple months , but since the last 2 weeks she has been having it all the time. Last Assessment & Plan: She is having tingling in her left thigh, that comes and goes. Going on for a couple months , but since the last 2 weeks she has been having it all the time. Urgency of urination 03/09/2013 07/11/2013 Frequency of urination 03/09/2013 4 Last Assessment & Plan: Urinary incontinence is being followed and evaluated by Dr Vazquez, she is having some urodynamic studies done. i reveiwed Dr. Fernandez notes. Obesity 03/09/2013 10/06/2016 Overview: 04/25/13 BMI 48.43. Normal BMI 18.5-25, normal weight range of 112-150 pounds in a person 5 feet 5 inches tall. Last Assessment & Plan: Gaining weight since she has not been able to exercise due to her surgeries. Nausea 02/09/2013 08/12/2016 Last Assessment & Plan: Patient has some nausea recently, is on macrobid for suspected UTI, when she came in last week. Since all her tests are negative including urine culture.i am discontinuing that SOB (shortness of breath) on exertion 02/09/2013 08/12/2016 Last Assessment & Plan: The patient has SOB which was extensively evaluated, initially it was thought to be from asthma. After seeing the family consumer science teacher and all evaluation complete it was thought to from restriction of the lungs from her weight. She also has sleep apnea, needs oxygen bled into the cpap machine, as the desaturations at night time does not normalize with out bleeding oxygen in. Today we checked her oxygen , the results are below. resting with o2 at 3liters- 91% resting room air o2 sat- 90% activity room air o2 sat- 84% activity with nc at 3liters- 91% Urinary incontinence 02/09/2013 03/28/2013 Last Assessment & Plan: Patient is having the incontinence for a month. She is on vesicare but it does not help her. Prior to this she had some leakage and dribbling but it was never this bad. She has been having a lot of accidents in the last month. She is indeed a very complex patient and i would like to refer her to a Urologist so he can evaluate her bladder dynamics. Schizophrenia 01/04/2013 02/06/2014 Overview: Dr Delaney is her psychologist . Has not seen him for a year. Patient says that the diagnosis of schizophrenia was taken off the diagnosis. Last Assessment & Plan: Patients notes indicates, that she has schizophrenia. Has been on Thorazine, haldol and invega. These drugs gave her tardive dyskinesia. She was put on tetrabenzine for it, worked miracles with her and then she got some parkinson's like features. She couldn't even feed herself. She tried the medication twice. Currently she is not on any psychotic medications. Movement disorder 12/28/2012 08/12/2016 Last Assessment & Plan: Patient is here today, sitting in front of me, very restless, constantly moving her feet, knees, things, neck, in what looks like tardive dyskinesia. It happens 2/3 times a week continues for many hours before she can get Rest from it, she said starting or increasing doses of neurontin, have not made the episodes any worse. She can talk to us without a problem and although she looks very uncomfortable to me she says he is doing fine and this will just pass. She is on requip. And recently started on Gabapentin, we are decreasing her requip. She was on haldol many years ago she says for her depression. She says she has parkinsons and told me she is taking propranolol for it. I thinks she has not got it right. She does not know of any aggravating and relieving factors for these episodes. Wheezing 11/29/2012 08/12/2016 Last Assessment & Plan: Patient is audibly wheezing right now. She recently had asthmatic bronchitis and pneumonia, said she is prone to have it. had a course of levaquin. Steroids and bronchodilators. Schizoaffective disorder 11/15/2012 017 Overview: [facility] But [facility] it according to her. Last Assessment & Plan: [facility], But they changed it according to her. Parkinson disease 11/15/2012 12/03/2017 Overview: [place], [place] I went through a lot of [facility]allos [facility]. he does not seem to think she has parkinson's. She had drug induced parkinson's like symptoms that resolved when she stopped taking the inciting medications. Last Assessment & Plan: She will send me a note from him of his latest assessment. documented as of this encounter (statuses as of 03/03/2022) [facility] History of Past illness Narrative* Problem Noted Date Resolved Date Post-operative pain 07/10/2016 08/12/2016 Hypomagnesemia 07/10/2016 07/10/2016 Full incontinence of feces 07/08/201607/10 Ankle instability 04/07/2016 08/12/2016 Posterior tibial tendonitis 04/07/201607/17 Trigger thumb of right hand 11/04/201507/17 Cramp in muscle 04/15/2015 08/12/2016 Primary insomnia 03/19/2015 08/12/2016 Last Assessment & Plan: Struggling with insomnia Pain in left knee 12/03/2014 08/12/2016 Overview: Patient has left knee pain , that got better with PT. Last Assessment & Plan: She is going for PT and now she feels better. significantly Weakness of left leg 11/04/2014 08/12/2016 Pain in joint, lower leg 02/19/2014 017 Tingling in extremities 10/11/2013 10/07/19 17 Overview: She is having tingling in her left thigh, that comes and goes. Going on for a couple months , but since the last 2 weeks she has been having it all the time. Last Assessment & Plan: She is having tingling in her left thigh, that comes and goes. Going on for a couple months , but since the last 2 weeks she has been having it all the time. Urgency of urination 03/09/2013 07/11/2013 Frequency of urination 03/09/2013 4 Last Assessment & Plan: Urinary incontinence is being followed and evaluated by Dr Vazquez, she is having some urodynamic studies done. i reveiwed Dr. Fernandez notes. Obesity 03/09/2013 10/06/2016 Overview: 04/25/13 BMI 48.43. Normal BMI 18.5-25, normal weight range of 112-150 pounds in a person 5 feet 5 inches tall. Last Assessment & Plan: Gaining weight since she has not been able to exercise due to her surgeries. Nausea 02/09/2013 08/12/2016 Last Assessment & Plan: Patient has some nausea recently, is on macrobid for suspected UTI, when she came in last week. Since all her tests are negative including urine culture.i am discontinuing that SOB (shortness of breath) on exertion 02/09/2013 08/12/2016 Last Assessment & Plan: The patient has SOB which was extensively evaluated, initially it was thought to be from asthma. After seeing the family consumer science teacher and all evaluation complete it was thought to from restriction of the lungs from her weight. She also has sleep apnea, needs oxygen bled into the cpap machine, as the desaturations at night time does not normalize with out bleeding oxygen in. Today we checked her oxygen , the results are below. resting with o2 at 3liters- 91% resting room air o2 sat- 90% activity room air o2 sat- 84% activity with nc at 3liters- 91% Urinary incontinence 02/09/2013 03/28/2013 Last Assessment & Plan: Patient is having the incontinence for a month. She is on vesicare but it does not help her. Prior to this she had some leakage and dribbling but it was never this bad. She has been having a lot of accidents in the last month. She is indeed a very complex patient and i would like to refer her to a Urologist so he can evaluate her bladder dynamics. Schizophrenia 01/04/2013 02/06/2014 Overview: Dr Delaney is her psychologist . Has not seen him for a year. Patient says that the diagnosis of schizophrenia was taken off the diagnosis. Last Assessment & Plan: Patients notes indicates, that she has schizophrenia. Has been on Thorazine, haldol and invega. These drugs gave her tardive dyskinesia. She was put on tetrabenzine for it, worked miracles with her and then she got some parkinson's like features. She couldn't even feed herself. She tried the medication twice. Currently she is not on any psychotic medications. Movement disorder 12/28/2012 08/12/2016 Last Assessment & Plan: Patient is here today, sitting in front of me, very restless, constantly moving her feet, knees, things, neck, in what looks like tardive dyskinesia. It happens 2/3 times a week continues for many hours before she can get Rest from it, she said starting or increasing doses of neurontin, have not made the episodes any worse. She can talk to us without a problem and although she looks very uncomfortable to me she says he is doing fine and this will just pass. She is on requip. And recently started on Gabapentin, we are decreasing her requip. She was on haldol many years ago she says for her depression. She says she has parkinsons and told me she is taking propranolol for it. I thinks she has not got it right. She does not know of any aggravating and relieving factors for these episodes. Wheezing 11/29/2012 08/12/2016 Last Assessment & Plan: Patient is audibly wheezing right now. She recently had asthmatic bronchitis and pneumonia, said she is prone to have it. had a course of levaquin. Steroids and bronchodilators. Schizoaffective disorder 11/15/2012 017 Overview: [facility] But [facility] it according to her. Last Assessment & Plan: [facility], But they changed it according to her. Parkinson disease 11/15/2012 12/03/2017 Overview: [place], [place] I went through a lot of [facility]allos [facility]. he does not seem to think she has parkinson's. She had drug induced parkinson's like symptoms that resolved when she stopped taking the inciting medications. Last Assessment & Plan: She will send me a note from him of his latest assessment. documented as of this encounter (statuses as of 03/06/2022) [facility] History of Past illness Narrative* Problem Noted Date Resolved Date Post-operative pain 07/10/2016 08/12/2016 Hypomagnesemia 07/10/2016 07/10/2016 Full incontinence of feces 07/08/201607/10 Ankle instability 04/07/2016 08/12/2016 Posterior tibial tendonitis 04/07/201607/17 Trigger thumb of right hand 11/04/201507/17 Cramp in muscle 04/15/2015 08/12/2016 Primary insomnia 03/19/2015 08/12/2016 Last Assessment & Plan: Struggling with insomnia Pain in left knee 12/03/2014 08/12/2016 Overview: Patient has left knee pain , that got better with PT. Last Assessment & Plan: She is going for PT and now she feels better. significantly Weakness of left leg 11/04/2014 08/12/2016 Pain in joint, lower leg 02/19/2014 017 Tingling in extremities 10/11/2013 10/07/19 17 Overview: She is having tingling in her left thigh, that comes and goes. Going on for a couple months , but since the last 2 weeks she has been having it all the time. Last Assessment & Plan: She is having tingling in her left thigh, that comes and goes. Going on for a couple months , but since the last 2 weeks she has been having it all the time. Urgency of urination 03/09/2013 07/11/2013 Frequency of urination 03/09/2013 4 Last Assessment & Plan: Urinary incontinence is being followed and evaluated by Dr Vazquez, she is having some urodynamic studies done. i reveiwed Dr. Fernandez notes. Obesity 03/09/2013 10/06/2016 Overview: 04/25/13 BMI 48.43. Normal BMI 18.5-25, normal weight range of 112-150 pounds in a person 5 feet 5 inches tall. Last Assessment & Plan: Gaining weight since she has not been able to exercise due to her surgeries. Nausea 02/09/2013 08/12/2016 Last Assessment & Plan: Patient has some nausea recently, is on macrobid for suspected UTI, when she came in last week. Since all her tests are negative including urine culture.i am discontinuing that SOB (shortness of breath) on exertion 02/09/2013 08/12/2016 Last Assessment & Plan: The patient has SOB which was extensively evaluated, initially it was thought to be from asthma. After seeing the family consumer science teacher and all evaluation complete it was thought to from restriction of the lungs from her weight. She also has sleep apnea, needs oxygen bled into the cpap machine, as the desaturations at night time does not normalize with out bleeding oxygen in. Today we checked her oxygen , the results are below. resting with o2 at 3liters- 91% resting room air o2 sat- 90% activity room air o2 sat- 84% activity with nc at 3liters- 91% Urinary incontinence 02/09/2013 03/28/2013 Last Assessment & Plan: Patient is having the incontinence for a month. She is on vesicare but it does not help her. Prior to this she had some leakage and dribbling but it was never this bad. She has been having a lot of accidents in the last month. She is indeed a very complex patient and i would like to refer her to a Urologist so he can evaluate her bladder dynamics. Schizophrenia 01/04/2013 02/06/2014 Overview: Dr Delaney is her psychologist . Has not seen him for a year. Patient says that the diagnosis of schizophrenia was taken off the diagnosis. Last Assessment & Plan: Patients notes indicates, that she has schizophrenia. Has been on Thorazine, haldol and invega. These drugs gave her tardive dyskinesia. She was put on tetrabenzine for it, worked miracles with her and then she got some parkinson's like features. She couldn't even feed herself. She tried the medication twice. Currently she is not on any psychotic medications. Movement disorder 12/28/2012 08/12/2016 Last Assessment & Plan: Patient is here today, sitting in front of me, very restless, constantly moving her feet, knees, things, neck, in what looks like tardive dyskinesia. It happens 2/3 times a week continues for many hours before she can get Rest from it, she said starting or increasing doses of neurontin, have not made the episodes any worse. She can talk to us without a problem and although she looks very uncomfortable to me she says he is doing fine and this will just pass. She is on requip. And recently started on Gabapentin, we are decreasing her requip. She was on haldol many years ago she says for her depression. She says she has parkinsons and told me she is taking propranolol for it. I thinks she has not got it right. She does not know of any aggravating and relieving factors for these episodes. Wheezing 11/29/2012 08/12/2016 Last Assessment & Plan: Patient is audibly wheezing right now. She recently had asthmatic bronchitis and pneumonia, said she is prone to have it. had a course of levaquin. Steroids and bronchodilators. Schizoaffective disorder 11/15/2012 017 Overview: [facility] But [facility] it according to her. Last Assessment & Plan: [facility], But they changed it according to her. Parkinson disease 11/15/2012 12/03/2017 Overview: Radha [place], [place] I went through a lot of DR. Cevallos [facility]. he does not seem to think she has parkinson's. She had drug induced parkinson's like symptoms that resolved when she stopped taking the inciting medications. Last Assessment & Plan: She will send me a note from him of his latest assessment. documented as of this encounter (statuses as of 03/10/2022) [facility]05-[facility]2017 History of Past illness Narrative* Problem Noted Date Resolved Date Post-operative pain 07/10/2016 08/12/2016 Hypomagnesemia 07/10/2016 07/10/2016 Full incontinence of feces 07/08/201607/10 Ankle instability 04/07/2016 08/12/2016 Posterior tibial tendonitis 04/07/201607/17 Trigger thumb of right hand 11/04/201507/17 Cramp in muscle 04/15/2015 08/12/2016 Primary insomnia 03/19/2015 08/12/2016 Last Assessment & Plan: Struggling with insomnia Pain in left knee 12/03/2014 08/12/2016 Overview: Patient has left knee pain , that got better with PT. Last Assessment & Plan: She is going for PT and now she feels better. significantly Weakness of left leg 11/04/2014 08/12/2016 Pain in joint, lower leg 02/19/2014 017 Tingling in extremities 10/11/2013 10/07/19 17 Overview: She is having tingling in her left thigh, that comes and goes. Going on for a couple months , but since the last 2 weeks she has been having it all the time. Last Assessment & Plan: She is having tingling in her left thigh, that comes and goes. Going on for a couple months , but since the last 2 weeks she has been having it all the time. Urgency of urination 03/09/2013 07/11/2013 Frequency of urination 03/09/2013 4 Last Assessment & Plan: Urinary incontinence is being followed and evaluated by Dr Vazquez, she is having some urodynamic studies done. i reveiwed Dr. Fernandez notes. Obesity 03/09/2013 10/06/2016 Overview: 04/25/13 BMI 48.43. Normal BMI 18.5-25, normal weight range of 112-150 pounds in a person 5 feet 5 inches tall. Last Assessment & Plan: Gaining weight since she has not been able to exercise due to her surgeries. Nausea 02/09/2013 08/12/2016 Last Assessment & Plan: Patient has some nausea recently, is on macrobid for suspected UTI, when she came in last week. Since all her tests are negative including urine culture.i am discontinuing that SOB (shortness of breath) on exertion 02/09/2013 08/12/2016 Last Assessment & Plan: The patient has SOB which was extensively evaluated, initially it was thought to be from asthma. After seeing the family consumer science teacher and all evaluation complete it was thought to from restriction of the lungs from her weight. She also has sleep apnea, needs oxygen bled into the cpap machine, as the desaturations at night time does not normalize with out bleeding oxygen in. Today we checked her oxygen , the results are below. resting with o2 at 3liters- 91% resting room air o2 sat- 90% activity room air o2 sat- 84% activity with nc at 3liters- 91% Urinary incontinence 02/09/2013 03/28/2013 Last Assessment & Plan: Patient is having the incontinence for a month. She is on vesicare but it does not help her. Prior to this she had some leakage and dribbling but it was never this bad. She has been having a lot of accidents in the last month. She is indeed a very complex patient and i would like to refer her to a Urologist so he can evaluate her bladder dynamics. Schizophrenia 01/04/2013 02/06/2014 Overview: Dr Delaney is her psychologist . Has not seen him for a year. Patient says that the diagnosis of schizophrenia was taken off the diagnosis. Last Assessment & Plan: Patients notes indicates, that she has schizophrenia. Has been on Thorazine, haldol and invega. These drugs gave her tardive dyskinesia. She was put on tetrabenzine for it, worked miracles with her and then she got some parkinson's like features. She couldn't even feed herself. She tried the medication twice. Currently she is not on any psychotic medications. Movement disorder 12/28/2012 08/12/2016 Last Assessment & Plan: Patient is here today, sitting in front of me, very restless, constantly moving her feet, knees, things, neck, in what looks like tardive dyskinesia. It happens 2/3 times a week continues for many hours before she can get Rest from it, she said starting or increasing doses of neurontin, have not made the episodes any worse. She can talk to us without a problem and although she looks very uncomfortable to me she says he is doing fine and this will just pass. She is on requip. And recently started on Gabapentin, we are decreasing her requip. She was on haldol many years ago she says for her depression. She says she has parkinsons and told me she is taking propranolol for it. I thinks she has not got it right. She does not know of any aggravating and relieving factors for these episodes. Wheezing 11/29/2012 08/12/2016 Last Assessment & Plan: Patient is audibly wheezing right now. She recently had asthmatic bronchitis and pneumonia, said she is prone to have it. had a course of levaquin. Steroids and bronchodilators. Schizoaffective disorder 11/15/2012 017 Overview: [facility] But [facility] it according to her. Last Assessment & Plan: [facility], But they changed it according to her. Parkinson disease 11/15/2012 12/03/2017 Overview: Radha [place], [place] I went through a lot of DR. Cevallos notes from [facility]. he does not seem to think she has parkinson's. She had drug induced parkinson's like symptoms that resolved when she stopped taking the inciting medications. Last Assessment & Plan: She will send me a note from him of his latest assessment. documented as of this encounter (statuses as of 03/12/2022) [facility]05-[facility]2017 History of Past illness Narrative* Problem Noted Date Resolved Date Post-operative pain 07/10/2016 08/12/2016 Hypomagnesemia 07/10/2016 07/10/2016 Full incontinence of feces 07/08/201607/10 Ankle instability 04/07/2016 08/12/2016 Posterior tibial tendonitis 04/07/201607/17 Trigger thumb of right hand 11/04/201507/17 Cramp in muscle 04/15/2015 08/12/2016 Primary insomnia 03/19/2015 08/12/2016 Last Assessment & Plan: Struggling with insomnia Pain in left knee 12/03/2014 08/12/2016 Overview: Patient has left knee pain , that got better with PT. Last Assessment & Plan: She is going for PT and now she feels better. significantly Weakness of left leg 11/04/2014 08/12/2016 Pain in joint, lower leg 02/19/2014 017 Tingling in extremities 10/11/2013 10/07/19 17 Overview: She is having tingling in her left thigh, that comes and goes. Going on for a couple months , but since the last 2 weeks she has been having it all the time. Last Assessment & Plan: She is having tingling in her left thigh, that comes and goes. Going on for a couple months , but since the last 2 weeks she has been having it all the time. Urgency of urination 03/09/2013 07/11/2013 Frequency of urination 03/09/2013 4 Last Assessment & Plan: Urinary incontinence is being followed and evaluated by Dr Vazquez, she is having some urodynamic studies done. i reveiwed Dr. Fernandez notes. Obesity 03/09/2013 10/06/2016 Overview: 04/25/13 BMI 48.43. Normal BMI 18.5-25, normal weight range of 112-150 pounds in a person 5 feet 5 inches tall. Last Assessment & Plan: Gaining weight since she has not been able to exercise due to her surgeries. Nausea 02/09/2013 08/12/2016 Last Assessment & Plan: Patient has some nausea recently, is on macrobid for suspected UTI, when she came in last week. Since all her tests are negative including urine culture.i am discontinuing that SOB (shortness of breath) on exertion 02/09/2013 08/12/2016 Last Assessment & Plan: The patient has SOB which was extensively evaluated, initially it was thought to be from asthma. After seeing the family consumer science teacher and all evaluation complete it was thought to from restriction of the lungs from her weight. She also has sleep apnea, needs oxygen bled into the cpap machine, as the desaturations at night time does not normalize with out bleeding oxygen in. Today we checked her oxygen , the results are below. resting with o2 at 3liters- 91% resting room air o2 sat- 90% activity room air o2 sat- 84% activity with nc at 3liters- 91% Urinary incontinence 02/09/2013 03/28/2013 Last Assessment & Plan: Patient is having the incontinence for a month. She is on vesicare but it does not help her. Prior to this she had some leakage and dribbling but it was never this bad. She has been having a lot of accidents in the last month. She is indeed a very complex patient and i would like to refer her to a Urologist so he can evaluate her bladder dynamics. Schizophrenia 01/04/2013 02/06/2014 Overview: Dr Delaney is her psychologist . Has not seen him for a year. Patient says that the diagnosis of schizophrenia was taken off the diagnosis. Last Assessment & Plan: Patients notes indicates, that she has schizophrenia. Has been on Thorazine, haldol and invega. These drugs gave her tardive dyskinesia. She was put on tetrabenzine for it, worked miracles with her and then she got some parkinson's like features. She couldn't even feed herself. She tried the medication twice. Currently she is not on any psychotic medications. Movement disorder 12/28/2012 08/12/2016 Last Assessment & Plan: Patient is here today, sitting in front of me, very restless, constantly moving her feet, knees, things, neck, in what looks like tardive dyskinesia. It happens 2/3 times a week continues for many hours before she can get Rest from it, she said starting or increasing doses of neurontin, have not made the episodes any worse. She can talk to us without a problem and although she looks very uncomfortable to me she says he is doing fine and this will just pass. She is on requip. And recently started on Gabapentin, we are decreasing her requip. She was on haldol many years ago she says for her depression. She says she has parkinsons and told me she is taking propranolol for it. I thinks she has not got it right. She does not know of any aggravating and relieving factors for these episodes. Wheezing 11/29/2012 08/12/2016 Last Assessment & Plan: Patient is audibly wheezing right now. She recently had asthmatic bronchitis and pneumonia, said she is prone to have it. had a course of levaquin. Steroids and bronchodilators. Schizoaffective disorder 11/15/2012 017 Overview: [facility] But [facility] it according to her. Last Assessment & Plan: [facility], But they changed it according to her. Parkinson disease 11/15/2012 12/03/2017 Overview: Radha [place], [place] I went through a lot of DR[facility]allos [facility]. he does not seem to think she has parkinson's. She had drug induced parkinson's like symptoms that resolved when she stopped taking the inciting medications. Last Assessment & Plan: She will send me a note from him of his latest assessment. documented as of this encounter (statuses as of 03/13/2022) [facility]05[facility]2017 History of Past illness Narrative* Problem Noted Date Resolved Date Post-operative pain 07/10/2016 08/12/2016 Hypomagnesemia 07/10/2016 07/10/2016 Full incontinence of feces 07/08/201607/10 Ankle instability 04/07/2016 08/12/2016 Posterior tibial tendonitis 04/07/201607/17 Trigger thumb of right hand 11/04/201507/17 Cramp in muscle 04/15/2015 08/12/2016 Primary insomnia 03/19/2015 08/12/2016 Last Assessment & Plan: Struggling with insomnia Pain in left knee 12/03/2014 08/12/2016 Overview: Patient has left knee pain , that got better with PT. Last Assessment & Plan: She is going for PT and now she feels better. significantly Weakness of left leg 11/04/2014 08/12/2016 Pain in joint, lower leg 02/19/2014 017 Tingling in extremities 10/11/2013 10/07/19 17 Overview: She is having tingling in her left thigh, that comes and goes. Going on for a couple months , but since the last 2 weeks she has been having it all the time. Last Assessment & Plan: She is having tingling in her left thigh, that comes and goes. Going on for a couple months , but since the last 2 weeks she has been having it all the time. Urgency of urination 03/09/2013 07/11/2013 Frequency of urination 03/09/2013 4 Last Assessment & Plan: Urinary incontinence is being followed and evaluated by Dr Vazquez, she is having some urodynamic studies done. i reveiwed Dr. Fernandez notes. Obesity 03/09/2013 10/06/2016 Overview: 04/25/13 BMI 48.43. Normal BMI 18.5-25, normal weight range of 112-150 pounds in a person 5 feet 5 inches tall. Last Assessment & Plan: Gaining weight since she has not been able to exercise due to her surgeries. Nausea 02/09/2013 08/12/2016 Last Assessment & Plan: Patient has some nausea recently, is on macrobid for suspected UTI, when she came in last week. Since all her tests are negative including urine culture.i am discontinuing that SOB (shortness of breath) on exertion 02/09/2013 08/12/2016 Last Assessment & Plan: The patient has SOB which was extensively evaluated, initially it was thought to be from asthma. After seeing the family consumer science teacher and all evaluation complete it was thought to from restriction of the lungs from her weight. She also has sleep apnea, needs oxygen bled into the cpap machine, as the desaturations at night time does not normalize with out bleeding oxygen in. Today we checked her oxygen , the results are below. resting with o2 at 3liters- 91% resting room air o2 sat- 90% activity room air o2 sat- 84% activity with nc at 3liters- 91% Urinary incontinence 02/09/2013 03/28/2013 Last Assessment & Plan: Patient is having the incontinence for a month. She is on vesicare but it does not help her. Prior to this she had some leakage and dribbling but it was never this bad. She has been having a lot of accidents in the last month. She is indeed a very complex patient and i would like to refer her to a Urologist so he can evaluate her bladder dynamics. Schizophrenia 01/04/2013 02/06/2014 Overview: Dr Delaney is her psychologist . Has not seen him for a year. Patient says that the diagnosis of schizophrenia was taken off the diagnosis. Last Assessment & Plan: Patients notes indicates, that she has schizophrenia. Has been on Thorazine, haldol and invega. These drugs gave her tardive dyskinesia. She was put on tetrabenzine for it, worked miracles with her and then she got some parkinson's like features. She couldn't even feed herself. She tried the medication twice. Currently she is not on any psychotic medications. Movement disorder 12/28/2012 08/12/2016 Last Assessment & Plan: Patient is here today, sitting in front of me, very restless, constantly moving her feet, knees, things, neck, in what looks like tardive dyskinesia. It happens 2/3 times a week continues for many hours before she can get Rest from it, she said starting or increasing doses of neurontin, have not made the episodes any worse. She can talk to us without a problem and although she looks very uncomfortable to me she says he is doing fine and this will just pass. She is on requip. And recently started on Gabapentin, we are decreasing her requip. She was on haldol many years ago she says for her depression. She says she has parkinsons and told me she is taking propranolol for it. I thinks she has not got it right. She does not know of any aggravating and relieving factors for these episodes. Wheezing 11/29/2012 08/12/2016 Last Assessment & Plan: Patient is audibly wheezing right now. She recently had asthmatic bronchitis and pneumonia, said she is prone to have it. had a course of levaquin. Steroids and bronchodilators. Schizoaffective disorder 11/15/2012 017 Overview: [facility] But [facility] it according to her. Last Assessment & Plan: [facility], But they changed it according to her. Parkinson disease 11/15/2012 12/03/2017 Overview: [place], [place] I went through a lot of [facility]. [facility]allos [facility]. he does not seem to think she has parkinson's. She had drug induced parkinson's like symptoms that resolved when she stopped taking the inciting medications. Last Assessment & Plan: She will send me a note from him of his latest assessment. documented as of this encounter (statuses as of 03/13/2022) [facility] History of Past illness Narrative* Problem Noted Date Resolved Date Post-operative pain 07/10/2016 08/12/2016 Hypomagnesemia 07/10/2016 07/10/2016 Full incontinence of feces 07/08/201607/10 Ankle instability 04/07/2016 08/12/2016 Posterior tibial tendonitis 04/07/201607/17 Trigger thumb of right hand 11/04/201507/17 Cramp in muscle 04/15/2015 08/12/2016 Primary insomnia 03/19/2015 08/12/2016 Last Assessment & Plan: Struggling with insomnia Pain in left knee 12/03/2014 08/12/2016 Overview: Patient has left knee pain , that got better with PT. Last Assessment & Plan: She is going for PT and now she feels better. significantly Weakness of left leg 11/04/2014 08/12/2016 Pain in joint, lower leg 02/19/2014 017 Tingling in extremities 10/11/2013 10/07/19 17 Overview: She is having tingling in her left thigh, that comes and goes. Going on for a couple months , but since the last 2 weeks she has been having it all the time. Last Assessment & Plan: She is having tingling in her left thigh, that comes and goes. Going on for a couple months , but since the last 2 weeks she has been having it all the time. Urgency of urination 03/09/2013 07/11/2013 Frequency of urination 03/09/2013 4 Last Assessment & Plan: Urinary incontinence is being followed and evaluated by Dr Vazquez, she is having some urodynamic studies done. i reveiwed Dr. Fernandez notes. Obesity 03/09/2013 10/06/2016 Overview: 04/25/13 BMI 48.43. Normal BMI 18.5-25, normal weight range of 112-150 pounds in a person 5 feet 5 inches tall. Last Assessment & Plan: Gaining weight since she has not been able to exercise due to her surgeries. Nausea 02/09/2013 08/12/2016 Last Assessment & Plan: Patient has some nausea recently, is on macrobid for suspected UTI, when she came in last week. Since all her tests are negative including urine culture.i am discontinuing that SOB (shortness of breath) on exertion 02/09/2013 08/12/2016 Last Assessment & Plan: The patient has SOB which was extensively evaluated, initially it was thought to be from asthma. After seeing the family consumer science teacher and all evaluation complete it was thought to from restriction of the lungs from her weight. She also has sleep apnea, needs oxygen bled into the cpap machine, as the desaturations at night time does not normalize with out bleeding oxygen in. Today we checked her oxygen , the results are below. resting with o2 at 3liters- 91% resting room air o2 sat- 90% activity room air o2 sat- 84% activity with nc at 3liters- 91% Urinary incontinence 02/09/2013 03/28/2013 Last Assessment & Plan: Patient is having the incontinence for a month. She is on vesicare but it does not help her. Prior to this she had some leakage and dribbling but it was never this bad. She has been having a lot of accidents in the last month. She is indeed a very complex patient and i would like to refer her to a Urologist so he can evaluate her bladder dynamics. Schizophrenia 01/04/2013 02/06/2014 Overview: Dr Delaney is her psychologist . Has not seen him for a year. Patient says that the diagnosis of schizophrenia was taken off the diagnosis. Last Assessment & Plan: Patients notes indicates, that she has schizophrenia. Has been on Thorazine, haldol and invega. These drugs gave her tardive dyskinesia. She was put on tetrabenzine for it, worked miracles with her and then she got some parkinson's like features. She couldn't even feed herself. She tried the medication twice. Currently she is not on any psychotic medications. Movement disorder 12/28/2012 08/12/2016 Last Assessment & Plan: Patient is here today, sitting in front of me, very restless, constantly moving her feet, knees, things, neck, in what looks like tardive dyskinesia. It happens 2/3 times a week continues for many hours before she can get Rest from it, she said starting or increasing doses of neurontin, have not made the episodes any worse. She can talk to us without a problem and although she looks very uncomfortable to me she says he is doing fine and this will just pass. She is on requip. And recently started on Gabapentin, we are decreasing her requip. She was on haldol many years ago she says for her depression. She says she has parkinsons and told me she is taking propranolol for it. I thinks she has not got it right. She does not know of any aggravating and relieving factors for these episodes. Wheezing 11/29/2012 08/12/2016 Last Assessment & Plan: Patient is audibly wheezing right now. She recently had asthmatic bronchitis and pneumonia, said she is prone to have it. had a course of levaquin. Steroids and bronchodilators. Schizoaffective disorder 11/15/2012 017 Overview: [facility] But [facility] it according to her. Last Assessment & Plan: [facility], But they changed it according to her. Parkinson disease 11/15/2012 12/03/2017 Overview: Radha [place], [place] I went through a lot of DR. Cevallos notes [facility]. he does not seem to think she has parkinson's. She had drug induced parkinson's like symptoms that resolved when she stopped taking the inciting medications. Last Assessment & Plan: She will send me a note from him of his latest assessment. documented as of this encounter (statuses as of 03/13/2022) [facility]05-[facility]-2017 History of Past illness Narrative* Problem Noted Date Resolved Date Post-operative pain 07/10/2016 08/12/2016 Hypomagnesemia 07/10/2016 07/10/2016 Full incontinence of feces 07/08/201607/10 Ankle instability 04/07/2016 08/12/2016 Posterior tibial tendonitis 04/07/201607/17 Trigger thumb of right hand 11/04/201507/17 Cramp in muscle 04/15/2015 08/12/2016 Primary insomnia 03/19/2015 08/12/2016 Last Assessment & Plan: Struggling with insomnia Pain in left knee 12/03/2014 08/12/2016 Overview: Patient has left knee pain , that got better with PT. Last Assessment & Plan: She is going for PT and now she feels better. significantly Weakness of left leg 11/04/2014 08/12/2016 Pain in joint, lower leg 02/19/2014 017 Tingling in extremities 10/11/2013 10/07/19 17 Overview: She is having tingling in her left thigh, that comes and goes. Going on for a couple months , but since the last 2 weeks she has been having it all the time. Last Assessment & Plan: She is having tingling in her left thigh, that comes and goes. Going on for a couple months , but since the last 2 weeks she has been having it all the time. Urgency of urination 03/09/2013 07/11/2013 Frequency of urination 03/09/2013 4 Last Assessment & Plan: Urinary incontinence is being followed and evaluated by Dr Vazquez, she is having some urodynamic studies done. i reveiwed Dr. Fernandez notes. Obesity 03/09/2013 10/06/2016 Overview: 04/25/13 BMI 48.43. Normal BMI 18.5-25, normal weight range of 112-150 pounds in a person 5 feet 5 inches tall. Last Assessment & Plan: Gaining weight since she has not been able to exercise due to her surgeries. Nausea 02/09/2013 08/12/2016 Last Assessment & Plan: Patient has some nausea recently, is on macrobid for suspected UTI, when she came in last week. Since all her tests are negative including urine culture.i am discontinuing that SOB (shortness of breath) on exertion 02/09/2013 08/12/2016 Last Assessment & Plan: The patient has SOB which was extensively evaluated, initially it was thought to be from asthma. After seeing the family consumer science teacher and all evaluation complete it was thought to from restriction of the lungs from her weight. She also has sleep apnea, needs oxygen bled into the cpap machine, as the desaturations at night time does not normalize with out bleeding oxygen in. Today we checked her oxygen , the results are below. resting with o2 at 3liters- 91% resting room air o2 sat- 90% activity room air o2 sat- 84% activity with nc at 3liters- 91% Urinary incontinence 02/09/2013 03/28/2013 Last Assessment & Plan: Patient is having the incontinence for a month. She is on vesicare but it does not help her. Prior to this she had some leakage and dribbling but it was never this bad. She has been having a lot of accidents in the last month. She is indeed a very complex patient and i would like to refer her to a Urologist so he can evaluate her bladder dynamics. Schizophrenia 01/04/2013 02/06/2014 Overview: Dr Delaney is her psychologist . Has not seen him for a year. Patient says that the diagnosis of schizophrenia was taken off the diagnosis. Last Assessment & Plan: Patients notes indicates, that she has schizophrenia. Has been on Thorazine, haldol and invega. These drugs gave her tardive dyskinesia. She was put on tetrabenzine for it, worked miracles with her and then she got some parkinson's like features. She couldn't even feed herself. She tried the medication twice. Currently she is not on any psychotic medications. Movement disorder 12/28/2012 08/12/2016 Last Assessment & Plan: Patient is here today, sitting in front of me, very restless, constantly moving her feet, knees, things, neck, in what looks like tardive dyskinesia. It happens 2/3 times a week continues for many hours before she can get Rest from it, she said starting or increasing doses of neurontin, have not made the episodes any worse. She can talk to us without a problem and although she looks very uncomfortable to me she says he is doing fine and this will just pass. She is on requip. And recently started on Gabapentin, we are decreasing her requip. She was on haldol many years ago she says for her depression. She says she has parkinsons and told me she is taking propranolol for it. I thinks she has not got it right. She does not know of any aggravating and relieving factors for these episodes. Wheezing 11/29/2012 08/12/2016 Last Assessment & Plan: Patient is audibly wheezing right now. She recently had asthmatic bronchitis and pneumonia, said she is prone to have it. had a course of levaquin. Steroids and bronchodilators. Schizoaffective disorder 11/15/2012 017 Overview: [facility] But [facility] it according to her. Last Assessment & Plan: [facility], But they changed it according to her. Parkinson disease 11/15/2012 12/03/2017 Overview: Radha [place], [place] I went through a lot of DR. Cevallos notes from [facility]. he does not seem to think she has parkinson's. She had drug induced parkinson's like symptoms that resolved when she stopped taking the inciting medications. Last Assessment & Plan: She will send me a note from him of his latest assessment. documented as of this encounter (statuses as of 03/16/2022) [facility]05[facility]2017 History of Past illness Narrative* Problem Noted Date Resolved Date Post-operative pain 07/10/2016 08/12/2016 Hypomagnesemia 07/10/2016 07/10/2016 Full incontinence of feces 07/08/201607/10 Ankle instability 04/07/2016 08/12/2016 Posterior tibial tendonitis 04/07/201607/17 Trigger thumb of right hand 11/04/201507/17 Cramp in muscle 04/15/2015 08/12/2016 Primary insomnia 03/19/2015 08/12/2016 Last Assessment & Plan: Struggling with insomnia Pain in left knee 12/03/2014 08/12/2016 Overview: Patient has left knee pain , that got better with PT. Last Assessment & Plan: She is going for PT and now she feels better. significantly Weakness of left leg 11/04/2014 08/12/2016 Pain in joint, lower leg 02/19/2014 017 Tingling in extremities 10/11/2013 10/07/19 17 Overview: She is having tingling in her left thigh, that comes and goes. Going on for a couple months , but since the last 2 weeks she has been having it all the time. Last Assessment & Plan: She is having tingling in her left thigh, that comes and goes. Going on for a couple months , but since the last 2 weeks she has been having it all the time. Urgency of urination 03/09/2013 07/11/2013 Frequency of urination 03/09/2013 4 Last Assessment & Plan: Urinary incontinence is being followed and evaluated by Dr Vazquez, she is having some urodynamic studies done. i reveiwed Dr. Fernandez notes. Obesity 03/09/2013 10/06/2016 Overview: 04/25/13 BMI 48.43. Normal BMI 18.5-25, normal weight range of 112-150 pounds in a person 5 feet 5 inches tall. Last Assessment & Plan: Gaining weight since she has not been able to exercise due to her surgeries. Nausea 02/09/2013 08/12/2016 Last Assessment & Plan: Patient has some nausea recently, is on macrobid for suspected UTI, when she came in last week. Since all her tests are negative including urine culture.i am discontinuing that SOB (shortness of breath) on exertion 02/09/2013 08/12/2016 Last Assessment & Plan: The patient has SOB which was extensively evaluated, initially it was thought to be from asthma. After seeing the family consumer science teacher and all evaluation complete it was thought to from restriction of the lungs from her weight. She also has sleep apnea, needs oxygen bled into the cpap machine, as the desaturations at night time does not normalize with out bleeding oxygen in. Today we checked her oxygen , the results are below. resting with o2 at 3liters- 91% resting room air o2 sat- 90% activity room air o2 sat- 84% activity with nc at 3liters- 91% Urinary incontinence 02/09/2013 03/28/2013 Last Assessment & Plan: Patient is having the incontinence for a month. She is on vesicare but it does not help her. Prior to this she had some leakage and dribbling but it was never this bad. She has been having a lot of accidents in the last month. She is indeed a very complex patient and i would like to refer her to a Urologist so he can evaluate her bladder dynamics. Schizophrenia 01/04/2013 02/06/2014 Overview: Dr Delaney is her psychologist . Has not seen him for a year. Patient says that the diagnosis of schizophrenia was taken off the diagnosis. Last Assessment & Plan: Patients notes indicates, that she has schizophrenia. Has been on Thorazine, haldol and invega. These drugs gave her tardive dyskinesia. She was put on tetrabenzine for it, worked miracles with her and then she got some parkinson's like features. She couldn't even feed herself. She tried the medication twice. Currently she is not on any psychotic medications. Movement disorder 12/28/2012 08/12/2016 Last Assessment & Plan: Patient is here today, sitting in front of me, very restless, constantly moving her feet, knees, things, neck, in what looks like tardive dyskinesia. It happens 2/3 times a week continues for many hours before she can get Rest from it, she said starting or increasing doses of neurontin, have not made the episodes any worse. She can talk to us without a problem and although she looks very uncomfortable to me she says he is doing fine and this will just pass. She is on requip. And recently started on Gabapentin, we are decreasing her requip. She was on haldol many years ago she says for her depression. She says she has parkinsons and told me she is taking propranolol for it. I thinks she has not got it right. She does not know of any aggravating and relieving factors for these episodes. Wheezing 11/29/2012 08/12/2016 Last Assessment & Plan: Patient is audibly wheezing right now. She recently had asthmatic bronchitis and pneumonia, said she is prone to have it. had a course of levaquin. Steroids and bronchodilators. Schizoaffective disorder 11/15/2012 017 Overview: [facility] But [facility] it according to her. Last Assessment & Plan: [facility], But they changed it according to her. Parkinson disease 11/15/2012 12/03/2017 Overview: Radha [place], [place] I went through a lot of DR[facility]allos [facility]. he does not seem to think she has parkinson's. She had drug induced parkinson's like symptoms that resolved when she stopped taking the inciting medications. Last Assessment & Plan: She will send me a note from him of his latest assessment. documented as of this encounter (statuses as of 04/01/2022) [facility]05[facility]2017 History of Past illness Narrative* Problem Noted Date Resolved Date Post-operative pain 07/10/2016 08/12/2016 Hypomagnesemia 07/10/2016 07/10/2016 Full incontinence of feces 07/08/201607/10 Ankle instability 04/07/2016 08/12/2016 Posterior tibial tendonitis 04/07/201607/17 Trigger thumb of right hand 11/04/201507/17 Cramp in muscle 04/15/2015 08/12/2016 Primary insomnia 03/19/2015 08/12/2016 Last Assessment & Plan: Struggling with insomnia Pain in left knee 12/03/2014 08/12/2016 Overview: Patient has left knee pain , that got better with PT. Last Assessment & Plan: She is going for PT and now she feels better. significantly Weakness of left leg 11/04/2014 08/12/2016 Pain in joint, lower leg 02/19/2014 017 Tingling in extremities 10/11/2013 10/07/19 17 Overview: She is having tingling in her left thigh, that comes and goes. Going on for a couple months , but since the last 2 weeks she has been having it all the time. Last Assessment & Plan: She is having tingling in her left thigh, that comes and goes. Going on for a couple months , but since the last 2 weeks she has been having it all the time. Urgency of urination 03/09/2013 07/11/2013 Frequency of urination 03/09/2013 4 Last Assessment & Plan: Urinary incontinence is being followed and evaluated by Dr Vazquez, she is having some urodynamic studies done. i reveiwed Dr. Fernandez notes. Obesity 03/09/2013 10/06/2016 Overview: 04/25/13 BMI 48.43. Normal BMI 18.5-25, normal weight range of 112-150 pounds in a person 5 feet 5 inches tall. Last Assessment & Plan: Gaining weight since she has not been able to exercise due to her surgeries. Nausea 02/09/2013 08/12/2016 Last Assessment & Plan: Patient has some nausea recently, is on macrobid for suspected UTI, when she came in last week. Since all her tests are negative including urine culture.i am discontinuing that SOB (shortness of breath) on exertion 02/09/2013 08/12/2016 Last Assessment & Plan: The patient has SOB which was extensively evaluated, initially it was thought to be from asthma. After seeing the family consumer science teacher and all evaluation complete it was thought to from restriction of the lungs from her weight. She also has sleep apnea, needs oxygen bled into the cpap machine, as the desaturations at night time does not normalize with out bleeding oxygen in. Today we checked her oxygen , the results are below. resting with o2 at 3liters- 91% resting room air o2 sat- 90% activity room air o2 sat- 84% activity with nc at 3liters- 91% Urinary incontinence 02/09/2013 03/28/2013 Last Assessment & Plan: Patient is having the incontinence for a month. She is on vesicare but it does not help her. Prior to this she had some leakage and dribbling but it was never this bad. She has been having a lot of accidents in the last month. She is indeed a very complex patient and i would like to refer her to a Urologist so he can evaluate her bladder dynamics. Schizophrenia 01/04/2013 02/06/2014 Overview: Dr Delaney is her psychologist . Has not seen him for a year. Patient says that the diagnosis of schizophrenia was taken off the diagnosis. Last Assessment & Plan: Patients notes indicates, that she has schizophrenia. Has been on Thorazine, haldol and invega. These drugs gave her tardive dyskinesia. She was put on tetrabenzine for it, worked miracles with her and then she got some parkinson's like features. She couldn't even feed herself. She tried the medication twice. Currently she is not on any psychotic medications. Movement disorder 12/28/2012 08/12/2016 Last Assessment & Plan: Patient is here today, sitting in front of me, very restless, constantly moving her feet, knees, things, neck, in what looks like tardive dyskinesia. It happens 2/3 times a week continues for many hours before she can get Rest from it, she said starting or increasing doses of neurontin, have not made the episodes any worse. She can talk to us without a problem and although she looks very uncomfortable to me she says he is doing fine and this will just pass. She is on requip. And recently started on Gabapentin, we are decreasing her requip. She was on haldol many years ago she says for her depression. She says she has parkinsons and told me she is taking propranolol for it. I thinks she has not got it right. She does not know of any aggravating and relieving factors for these episodes. Wheezing 11/29/2012 08/12/2016 Last Assessment & Plan: Patient is audibly wheezing right now. She recently had asthmatic bronchitis and pneumonia, said she is prone to have it. had a course of levaquin. Steroids and bronchodilators. Schizoaffective disorder 11/15/2012 017 Overview: [facility] But [facility] it according to her. Last Assessment & Plan: [facility], But they changed it according to her. Parkinson disease 11/15/2012 12/03/2017 Overview: [place], [place] I went through a lot of [facility]. [facility]allos [facility]. he does not seem to think she has parkinson's. She had drug induced parkinson's like symptoms that resolved when she stopped taking the inciting medications. Last Assessment & Plan: She will send me a note from him of his latest assessment. documented as of this encounter (statuses as of 04/01/2022) [facility] History of Past illness Narrative* Problem Noted Date Resolved Date Post-operative pain 07/10/2016 08/12/2016 Hypomagnesemia 07/10/2016 07/10/2016 Full incontinence of feces 07/08/201607/10 Ankle instability 04/07/2016 08/12/2016 Posterior tibial tendonitis 04/07/201607/17 Trigger thumb of right hand 11/04/201507/17 Cramp in muscle 04/15/2015 08/12/2016 Primary insomnia 03/19/2015 08/12/2016 Last Assessment & Plan: Struggling with insomnia Pain in left knee 12/03/2014 08/12/2016 Overview: Patient has left knee pain , that got better with PT. Last Assessment & Plan: She is going for PT and now she feels better. significantly Weakness of left leg 11/04/2014 08/12/2016 Pain in joint, lower leg 02/19/2014 017 Tingling in extremities 10/11/2013 10/07/19 17 Overview: She is having tingling in her left thigh, that comes and goes. Going on for a couple months , but since the last 2 weeks she has been having it all the time. Last Assessment & Plan: She is having tingling in her left thigh, that comes and goes. Going on for a couple months , but since the last 2 weeks she has been having it all the time. Urgency of urination 03/09/2013 07/11/2013 Frequency of urination 03/09/2013 4 Last Assessment & Plan: Urinary incontinence is being followed and evaluated by Dr Vazquez, she is having some urodynamic studies done. i reveiwed Dr. Fernandez notes. Obesity 03/09/2013 10/06/2016 Overview: 04/25/13 BMI 48.43. Normal BMI 18.5-25, normal weight range of 112-150 pounds in a person 5 feet 5 inches tall. Last Assessment & Plan: Gaining weight since she has not been able to exercise due to her surgeries. Nausea 02/09/2013 08/12/2016 Last Assessment & Plan: Patient has some nausea recently, is on macrobid for suspected UTI, when she came in last week. Since all her tests are negative including urine culture.i am discontinuing that SOB (shortness of breath) on exertion 02/09/2013 08/12/2016 Last Assessment & Plan: The patient has SOB which was extensively evaluated, initially it was thought to be from asthma. After seeing the family consumer science teacher and all evaluation complete it was thought to from restriction of the lungs from her weight. She also has sleep apnea, needs oxygen bled into the cpap machine, as the desaturations at night time does not normalize with out bleeding oxygen in. Today we checked her oxygen , the results are below. resting with o2 at 3liters- 91% resting room air o2 sat- 90% activity room air o2 sat- 84% activity with nc at 3liters- 91% Urinary incontinence 02/09/2013 03/28/2013 Last Assessment & Plan: Patient is having the incontinence for a month. She is on vesicare but it does not help her. Prior to this she had some leakage and dribbling but it was never this bad. She has been having a lot of accidents in the last month. She is indeed a very complex patient and i would like to refer her to a Urologist so he can evaluate her bladder dynamics. Schizophrenia 01/04/2013 02/06/2014 Overview: Dr Delaney is her psychologist . Has not seen him for a year. Patient says that the diagnosis of schizophrenia was taken off the diagnosis. Last Assessment & Plan: Patients notes indicates, that she has schizophrenia. Has been on Thorazine, haldol and invega. These drugs gave her tardive dyskinesia. She was put on tetrabenzine for it, worked miracles with her and then she got some parkinson's like features. She couldn't even feed herself. She tried the medication twice. Currently she is not on any psychotic medications. Movement disorder 12/28/2012 08/12/2016 Last Assessment & Plan: Patient is here today, sitting in front of me, very restless, constantly moving her feet, knees, things, neck, in what looks like tardive dyskinesia. It happens 2/3 times a week continues for many hours before she can get Rest from it, she said starting or increasing doses of neurontin, have not made the episodes any worse. She can talk to us without a problem and although she looks very uncomfortable to me she says he is doing fine and this will just pass. She is on requip. And recently started on Gabapentin, we are decreasing her requip. She was on haldol many years ago she says for her depression. She says she has parkinsons and told me she is taking propranolol for it. I thinks she has not got it right. She does not know of any aggravating and relieving factors for these episodes. Wheezing 11/29/2012 08/12/2016 Last Assessment & Plan: Patient is audibly wheezing right now. She recently had asthmatic bronchitis and pneumonia, said she is prone to have it. had a course of levaquin. Steroids and bronchodilators. Schizoaffective disorder 11/15/2012 017 Overview: [facility] But [facility] it according to her. Last Assessment & Plan: [facility], But they changed it according to her. Parkinson disease 11/15/2012 12/03/2017 Overview: [place], [place] I went through a lot of [facility]allos [facility]. he does not seem to think she has parkinson's. She had drug induced parkinson's like symptoms that resolved when she stopped taking the inciting medications. Last Assessment & Plan: She will send me a note from him of his latest assessment. documented as of this encounter (statuses as of 04/08/2022) [facility] History of Past illness Narrative* Problem Noted Date Resolved Date Post-operative pain 07/10/2016 08/12/2016 Hypomagnesemia 07/10/2016 07/10/2016 Full incontinence of feces 07/08/201607/10 Ankle instability 04/07/2016 08/12/2016 Posterior tibial tendonitis 04/07/201607/17 Trigger thumb of right hand 11/04/201507/17 Cramp in muscle 04/15/2015 08/12/2016 Primary insomnia 03/19/2015 08/12/2016 Last Assessment & Plan: Struggling with insomnia Pain in left knee 12/03/2014 08/12/2016 Overview: Patient has left knee pain , that got better with PT. Last Assessment & Plan: She is going for PT and now she feels better. significantly Weakness of left leg 11/04/2014 08/12/2016 Pain in joint, lower leg 02/19/2014 017 Tingling in extremities 10/11/2013 10/07/19 17 Overview: She is having tingling in her left thigh, that comes and goes. Going on for a couple months , but since the last 2 weeks she has been having it all the time. Last Assessment & Plan: She is having tingling in her left thigh, that comes and goes. Going on for a couple months , but since the last 2 weeks she has been having it all the time. Urgency of urination 03/09/2013 07/11/2013 Frequency of urination 03/09/2013 4 Last Assessment & Plan: Urinary incontinence is being followed and evaluated by Dr Vazquez, she is having some urodynamic studies done. i reveiwed Dr. Fernandez notes. Obesity 03/09/2013 10/06/2016 Overview: 04/25/13 BMI 48.43. Normal BMI 18.5-25, normal weight range of 112-150 pounds in a person 5 feet 5 inches tall. Last Assessment & Plan: Gaining weight since she has not been able to exercise due to her surgeries. Nausea 02/09/2013 08/12/2016 Last Assessment & Plan: Patient has some nausea recently, is on macrobid for suspected UTI, when she came in last week. Since all her tests are negative including urine culture.i am discontinuing that SOB (shortness of breath) on exertion 02/09/2013 08/12/2016 Last Assessment & Plan: The patient has SOB which was extensively evaluated, initially it was thought to be from asthma. After seeing the family consumer science teacher and all evaluation complete it was thought to from restriction of the lungs from her weight. She also has sleep apnea, needs oxygen bled into the cpap machine, as the desaturations at night time does not normalize with out bleeding oxygen in. Today we checked her oxygen , the results are below. resting with o2 at 3liters- 91% resting room air o2 sat- 90% activity room air o2 sat- 84% activity with nc at 3liters- 91% Urinary incontinence 02/09/2013 03/28/2013 Last Assessment & Plan: Patient is having the incontinence for a month. She is on vesicare but it does not help her. Prior to this she had some leakage and dribbling but it was never this bad. She has been having a lot of accidents in the last month. She is indeed a very complex patient and i would like to refer her to a Urologist so he can evaluate her bladder dynamics. Schizophrenia 01/04/2013 02/06/2014 Overview: Dr Delaney is her psychologist . Has not seen him for a year. Patient says that the diagnosis of schizophrenia was taken off the diagnosis. Last Assessment & Plan: Patients notes indicates, that she has schizophrenia. Has been on Thorazine, haldol and invega. These drugs gave her tardive dyskinesia. She was put on tetrabenzine for it, worked miracles with her and then she got some parkinson's like features. She couldn't even feed herself. She tried the medication twice. Currently she is not on any psychotic medications. Movement disorder 12/28/2012 08/12/2016 Last Assessment & Plan: Patient is here today, sitting in front of me, very restless, constantly moving her feet, knees, things, neck, in what looks like tardive dyskinesia. It happens 2/3 times a week continues for many hours before she can get Rest from it, she said starting or increasing doses of neurontin, have not made the episodes any worse. She can talk to us without a problem and although she looks very uncomfortable to me she says he is doing fine and this will just pass. She is on requip. And recently started on Gabapentin, we are decreasing her requip. She was on haldol many years ago she says for her depression. She says she has parkinsons and told me she is taking propranolol for it. I thinks she has not got it right. She does not know of any aggravating and relieving factors for these episodes. Wheezing 11/29/2012 08/12/2016 Last Assessment & Plan: Patient is audibly wheezing right now. She recently had asthmatic bronchitis and pneumonia, said she is prone to have it. had a course of levaquin. Steroids and bronchodilators. Schizoaffective disorder 11/15/2012 017 Overview: [facility] But [facility] it according to her. Last Assessment & Plan: [facility], But they changed it according to her. Parkinson disease 11/15/2012 12/03/2017 Overview: Radha [place], [place] I went through a lot of DR. Cevallos notes [facility]. he does not seem to think she has parkinson's. She had drug induced parkinson's like symptoms that resolved when she stopped taking the inciting medications. Last Assessment & Plan: She will send me a note from him of his latest assessment. documented as of this encounter (statuses as of 04/10/2022) [facility]05-[facility]-2017 History of Past illness Narrative* Problem Noted Date Resolved Date Post-operative pain 07/10/2016 08/12/2016 Hypomagnesemia 07/10/2016 07/10/2016 Full incontinence of feces 07/08/201607/10 Ankle instability 04/07/2016 08/12/2016 Posterior tibial tendonitis 04/07/201607/17 Trigger thumb of right hand 11/04/201507/17 Cramp in muscle 04/15/2015 08/12/2016 Primary insomnia 03/19/2015 08/12/2016 Last Assessment & Plan: Struggling with insomnia Pain in left knee 12/03/2014 08/12/2016 Overview: Patient has left knee pain , that got better with PT. Last Assessment & Plan: She is going for PT and now she feels better. significantly Weakness of left leg 11/04/2014 08/12/2016 Pain in joint, lower leg 02/19/2014 017 Tingling in extremities 10/11/2013 10/07/19 17 Overview: She is having tingling in her left thigh, that comes and goes. Going on for a couple months , but since the last 2 weeks she has been having it all the time. Last Assessment & Plan: She is having tingling in her left thigh, that comes and goes. Going on for a couple months , but since the last 2 weeks she has been having it all the time. Urgency of urination 03/09/2013 07/11/2013 Frequency of urination 03/09/2013 4 Last Assessment & Plan: Urinary incontinence is being followed and evaluated by Dr Vazquez, she is having some urodynamic studies done. i reveiwed Dr. Fernandez notes. Obesity 03/09/2013 10/06/2016 Overview: 04/25/13 BMI 48.43. Normal BMI 18.5-25, normal weight range of 112-150 pounds in a person 5 feet 5 inches tall. Last Assessment & Plan: Gaining weight since she has not been able to exercise due to her surgeries. Nausea 02/09/2013 08/12/2016 Last Assessment & Plan: Patient has some nausea recently, is on macrobid for suspected UTI, when she came in last week. Since all her tests are negative including urine culture.i am discontinuing that SOB (shortness of breath) on exertion 02/09/2013 08/12/2016 Last Assessment & Plan: The patient has SOB which was extensively evaluated, initially it was thought to be from asthma. After seeing the family consumer science teacher and all evaluation complete it was thought to from restriction of the lungs from her weight. She also has sleep apnea, needs oxygen bled into the cpap machine, as the desaturations at night time does not normalize with out bleeding oxygen in. Today we checked her oxygen , the results are below. resting with o2 at 3liters- 91% resting room air o2 sat- 90% activity room air o2 sat- 84% activity with nc at 3liters- 91% Urinary incontinence 02/09/2013 03/28/2013 Last Assessment & Plan: Patient is having the incontinence for a month. She is on vesicare but it does not help her. Prior to this she had some leakage and dribbling but it was never this bad. She has been having a lot of accidents in the last month. She is indeed a very complex patient and i would like to refer her to a Urologist so he can evaluate her bladder dynamics. Schizophrenia 01/04/2013 02/06/2014 Overview: Dr Delaney is her psychologist . Has not seen him for a year. Patient says that the diagnosis of schizophrenia was taken off the diagnosis. Last Assessment & Plan: Patients notes indicates, that she has schizophrenia. Has been on Thorazine, haldol and invega. These drugs gave her tardive dyskinesia. She was put on tetrabenzine for it, worked miracles with her and then she got some parkinson's like features. She couldn't even feed herself. She tried the medication twice. Currently she is not on any psychotic medications. Movement disorder 12/28/2012 08/12/2016 Last Assessment & Plan: Patient is here today, sitting in front of me, very restless, constantly moving her feet, knees, things, neck, in what looks like tardive dyskinesia. It happens 2/3 times a week continues for many hours before she can get Rest from it, she said starting or increasing doses of neurontin, have not made the episodes any worse. She can talk to us without a problem and although she looks very uncomfortable to me she says he is doing fine and this will just pass. She is on requip. And recently started on Gabapentin, we are decreasing her requip. She was on haldol many years ago she says for her depression. She says she has parkinsons and told me she is taking propranolol for it. I thinks she has not got it right. She does not know of any aggravating and relieving factors for these episodes. Wheezing 11/29/2012 08/12/2016 Last Assessment & Plan: Patient is audibly wheezing right now. She recently had asthmatic bronchitis and pneumonia, said she is prone to have it. had a course of levaquin. Steroids and bronchodilators. Schizoaffective disorder 11/15/2012 017 Overview: [facility] But [facility] it according to her. Last Assessment & Plan: [facility], But they changed it according to her. Parkinson disease 11/15/2012 12/03/2017 Overview: Radha [place], [place] I went through a lot of DR. Cevallos notes from [facility]. he does not seem to think she has parkinson's. She had drug induced parkinson's like symptoms that resolved when she stopped taking the inciting medications. Last Assessment & Plan: She will send me a note from him of his latest assessment. documented as of this encounter (statuses as of 04/16/2022) [facility]05[facility]2017 History of Past illness Narrative* Problem Noted Date Resolved Date Post-operative pain 07/10/2016 08/12/2016 Hypomagnesemia 07/10/2016 07/10/2016 Full incontinence of feces 07/08/201607/10 Ankle instability 04/07/2016 08/12/2016 Posterior tibial tendonitis 04/07/201607/17 Trigger thumb of right hand 11/04/201507/17 Cramp in muscle 04/15/2015 08/12/2016 Primary insomnia 03/19/2015 08/12/2016 Last Assessment & Plan: Struggling with insomnia Pain in left knee 12/03/2014 08/12/2016 Overview: Patient has left knee pain , that got better with PT. Last Assessment & Plan: She is going for PT and now she feels better. significantly Weakness of left leg 11/04/2014 08/12/2016 Pain in joint, lower leg 02/19/2014 017 Tingling in extremities 10/11/2013 10/07/19 17 Overview: She is having tingling in her left thigh, that comes and goes. Going on for a couple months , but since the last 2 weeks she has been having it all the time. Last Assessment & Plan: She is having tingling in her left thigh, that comes and goes. Going on for a couple months , but since the last 2 weeks she has been having it all the time. Urgency of urination 03/09/2013 07/11/2013 Frequency of urination 03/09/2013 4 Last Assessment & Plan: Urinary incontinence is being followed and evaluated by Dr Vazquez, she is having some urodynamic studies done. i reveiwed Dr. Fernandez notes. Obesity 03/09/2013 10/06/2016 Overview: 04/25/13 BMI 48.43. Normal BMI 18.5-25, normal weight range of 112-150 pounds in a person 5 feet 5 inches tall. Last Assessment & Plan: Gaining weight since she has not been able to exercise due to her surgeries. Nausea 02/09/2013 08/12/2016 Last Assessment & Plan: Patient has some nausea recently, is on macrobid for suspected UTI, when she came in last week. Since all her tests are negative including urine culture.i am discontinuing that SOB (shortness of breath) on exertion 02/09/2013 08/12/2016 Last Assessment & Plan: The patient has SOB which was extensively evaluated, initially it was thought to be from asthma. After seeing the family consumer science teacher and all evaluation complete it was thought to from restriction of the lungs from her weight. She also has sleep apnea, needs oxygen bled into the cpap machine, as the desaturations at night time does not normalize with out bleeding oxygen in. Today we checked her oxygen , the results are below. resting with o2 at 3liters- 91% resting room air o2 sat- 90% activity room air o2 sat- 84% activity with nc at 3liters- 91% Urinary incontinence 02/09/2013 03/28/2013 Last Assessment & Plan: Patient is having the incontinence for a month. She is on vesicare but it does not help her. Prior to this she had some leakage and dribbling but it was never this bad. She has been having a lot of accidents in the last month. She is indeed a very complex patient and i would like to refer her to a Urologist so he can evaluate her bladder dynamics. Schizophrenia 01/04/2013 02/06/2014 Overview: Dr Delaney is her psychologist . Has not seen him for a year. Patient says that the diagnosis of schizophrenia was taken off the diagnosis. Last Assessment & Plan: Patients notes indicates, that she has schizophrenia. Has been on Thorazine, haldol and invega. These drugs gave her tardive dyskinesia. She was put on tetrabenzine for it, worked miracles with her and then she got some parkinson's like features. She couldn't even feed herself. She tried the medication twice. Currently she is not on any psychotic medications. Movement disorder 12/28/2012 08/12/2016 Last Assessment & Plan: Patient is here today, sitting in front of me, very restless, constantly moving her feet, knees, things, neck, in what looks like tardive dyskinesia. It happens 2/3 times a week continues for many hours before she can get Rest from it, she said starting or increasing doses of neurontin, have not made the episodes any worse. She can talk to us without a problem and although she looks very uncomfortable to me she says he is doing fine and this will just pass. She is on requip. And recently started on Gabapentin, we are decreasing her requip. She was on haldol many years ago she says for her depression. She says she has parkinsons and told me she is taking propranolol for it. I thinks she has not got it right. She does not know of any aggravating and relieving factors for these episodes. Wheezing 11/29/2012 08/12/2016 Last Assessment & Plan: Patient is audibly wheezing right now. She recently had asthmatic bronchitis and pneumonia, said she is prone to have it. had a course of levaquin. Steroids and bronchodilators. Schizoaffective disorder 11/15/2012 017 Overview: [facility] But [facility] it according to her. Last Assessment & Plan: [facility], But they changed it according to her. Parkinson disease 11/15/2012 12/03/2017 Overview: Radha [place], [place] I went through a lot of [facility]allos [facility]. he does not seem to think she has parkinson's. She had drug induced parkinson's like symptoms that resolved when she stopped taking the inciting medications. Last Assessment & Plan: She will send me a note from him of his latest assessment. documented as of this encounter (statuses as of 04/18/2022) [facility]05[facility]2017 History of Past illness Narrative* Problem Noted Date Resolved Date Post-operative pain 07/10/2016 08/12/2016 Hypomagnesemia 07/10/2016 07/10/2016 Full incontinence of feces 07/08/201607/10 Ankle instability 04/07/2016 08/12/2016 Posterior tibial tendonitis 04/07/201607/17 Trigger thumb of right hand 11/04/201507/17 Cramp in muscle 04/15/2015 08/12/2016 Primary insomnia 03/19/2015 08/12/2016 Last Assessment & Plan: Struggling with insomnia Pain in left knee 12/03/2014 08/12/2016 Overview: Patient has left knee pain , that got better with PT. Last Assessment & Plan: She is going for PT and now she feels better. significantly Weakness of left leg 11/04/2014 08/12/2016 Pain in joint, lower leg 02/19/2014 017 Tingling in extremities 10/11/2013 10/07/19 17 Overview: She is having tingling in her left thigh, that comes and goes. Going on for a couple months , but since the last 2 weeks she has been having it all the time. Last Assessment & Plan: She is having tingling in her left thigh, that comes and goes. Going on for a couple months , but since the last 2 weeks she has been having it all the time. Urgency of urination 03/09/2013 07/11/2013 Frequency of urination 03/09/2013 4 Last Assessment & Plan: Urinary incontinence is being followed and evaluated by Dr Vazquez, she is having some urodynamic studies done. i reveiwed Dr. Fernandez notes. Obesity 03/09/2013 10/06/2016 Overview: 04/25/13 BMI 48.43. Normal BMI 18.5-25, normal weight range of 112-150 pounds in a person 5 feet 5 inches tall. Last Assessment & Plan: Gaining weight since she has not been able to exercise due to her surgeries. Nausea 02/09/2013 08/12/2016 Last Assessment & Plan: Patient has some nausea recently, is on macrobid for suspected UTI, when she came in last week. Since all her tests are negative including urine culture.i am discontinuing that SOB (shortness of breath) on exertion 02/09/2013 08/12/2016 Last Assessment & Plan: The patient has SOB which was extensively evaluated, initially it was thought to be from asthma. After seeing the family consumer science teacher and all evaluation complete it was thought to from restriction of the lungs from her weight. She also has sleep apnea, needs oxygen bled into the cpap machine, as the desaturations at night time does not normalize with out bleeding oxygen in. Today we checked her oxygen , the results are below. resting with o2 at 3liters- 91% resting room air o2 sat- 90% activity room air o2 sat- 84% activity with nc at 3liters- 91% Urinary incontinence 02/09/2013 03/28/2013 Last Assessment & Plan: Patient is having the incontinence for a month. She is on vesicare but it does not help her. Prior to this she had some leakage and dribbling but it was never this bad. She has been having a lot of accidents in the last month. She is indeed a very complex patient and i would like to refer her to a Urologist so he can evaluate her bladder dynamics. Schizophrenia 01/04/2013 02/06/2014 Overview: Dr Delaney is her psychologist . Has not seen him for a year. Patient says that the diagnosis of schizophrenia was taken off the diagnosis. Last Assessment & Plan: Patients notes indicates, that she has schizophrenia. Has been on Thorazine, haldol and invega. These drugs gave her tardive dyskinesia. She was put on tetrabenzine for it, worked miracles with her and then she got some parkinson's like features. She couldn't even feed herself. She tried the medication twice. Currently she is not on any psychotic medications. Movement disorder 12/28/2012 08/12/2016 Last Assessment & Plan: Patient is here today, sitting in front of me, very restless, constantly moving her feet, knees, things, neck, in what looks like tardive dyskinesia. It happens 2/3 times a week continues for many hours before she can get Rest from it, she said starting or increasing doses of neurontin, have not made the episodes any worse. She can talk to us without a problem and although she looks very uncomfortable to me she says he is doing fine and this will just pass. She is on requip. And recently started on Gabapentin, we are decreasing her requip. She was on haldol many years ago she says for her depression. She says she has parkinsons and told me she is taking propranolol for it. I thinks she has not got it right. She does not know of any aggravating and relieving factors for these episodes. Wheezing 11/29/2012 08/12/2016 Last Assessment & Plan: Patient is audibly wheezing right now. She recently had asthmatic bronchitis and pneumonia, said she is prone to have it. had a course of levaquin. Steroids and bronchodilators. Schizoaffective disorder 11/15/2012 017 Overview: [facility] But [facility] it according to her. Last Assessment & Plan: [facility], But they changed it according to her. Parkinson disease 11/15/2012 12/03/2017 Overview: [place], [place] I went through a lot of [facility]allos [facility]. he does not seem to think she has parkinson's. She had drug induced parkinson's like symptoms that resolved when she stopped taking the inciting medications. Last Assessment & Plan: She will send me a note from him of his latest assessment. documented as of this encounter (statuses as of 04/22/2022) [facility] History of Past illness Narrative* Problem Noted Date Resolved Date Post-operative pain 07/10/2016 08/12/2016 Hypomagnesemia 07/10/2016 07/10/2016 Full incontinence of feces 07/08/201607/10 Ankle instability 04/07/2016 08/12/2016 Posterior tibial tendonitis 04/07/201607/17 Trigger thumb of right hand 11/04/201507/17 Cramp in muscle 04/15/2015 08/12/2016 Primary insomnia 03/19/2015 08/12/2016 Last Assessment & Plan: Struggling with insomnia Pain in left knee 12/03/2014 08/12/2016 Overview: Patient has left knee pain , that got better with PT. Last Assessment & Plan: She is going for PT and now she feels better. significantly Weakness of left leg 11/04/2014 08/12/2016 Pain in joint, lower leg 02/19/2014 017 Tingling in extremities 10/11/2013 10/07/19 17 Overview: She is having tingling in her left thigh, that comes and goes. Going on for a couple months , but since the last 2 weeks she has been having it all the time. Last Assessment & Plan: She is having tingling in her left thigh, that comes and goes. Going on for a couple months , but since the last 2 weeks she has been having it all the time. Urgency of urination 03/09/2013 07/11/2013 Frequency of urination 03/09/2013 4 Last Assessment & Plan: Urinary incontinence is being followed and evaluated by Dr Vazquez, she is having some urodynamic studies done. i reveiwed Dr. Fernandez notes. Obesity 03/09/2013 10/06/2016 Overview: 04/25/13 BMI 48.43. Normal BMI 18.5-25, normal weight range of 112-150 pounds in a person 5 feet 5 inches tall. Last Assessment & Plan: Gaining weight since she has not been able to exercise due to her surgeries. Nausea 02/09/2013 08/12/2016 Last Assessment & Plan: Patient has some nausea recently, is on macrobid for suspected UTI, when she came in last week. Since all her tests are negative including urine culture.i am discontinuing that SOB (shortness of breath) on exertion 02/09/2013 08/12/2016 Last Assessment & Plan: The patient has SOB which was extensively evaluated, initially it was thought to be from asthma. After seeing the family consumer science teacher and all evaluation complete it was thought to from restriction of the lungs from her weight. She also has sleep apnea, needs oxygen bled into the cpap machine, as the desaturations at night time does not normalize with out bleeding oxygen in. Today we checked her oxygen , the results are below. resting with o2 at 3liters- 91% resting room air o2 sat- 90% activity room air o2 sat- 84% activity with nc at 3liters- 91% Urinary incontinence 02/09/2013 03/28/2013 Last Assessment & Plan: Patient is having the incontinence for a month. She is on vesicare but it does not help her. Prior to this she had some leakage and dribbling but it was never this bad. She has been having a lot of accidents in the last month. She is indeed a very complex patient and i would like to refer her to a Urologist so he can evaluate her bladder dynamics. Schizophrenia 01/04/2013 02/06/2014 Overview: Dr Delaney is her psychologist . Has not seen him for a year. Patient says that the diagnosis of schizophrenia was taken off the diagnosis. Last Assessment & Plan: Patients notes indicates, that she has schizophrenia. Has been on Thorazine, haldol and invega. These drugs gave her tardive dyskinesia. She was put on tetrabenzine for it, worked miracles with her and then she got some parkinson's like features. She couldn't even feed herself. She tried the medication twice. Currently she is not on any psychotic medications. Movement disorder 12/28/2012 08/12/2016 Last Assessment & Plan: Patient is here today, sitting in front of me, very restless, constantly moving her feet, knees, things, neck, in what looks like tardive dyskinesia. It happens 2/3 times a week continues for many hours before she can get Rest from it, she said starting or increasing doses of neurontin, have not made the episodes any worse. She can talk to us without a problem and although she looks very uncomfortable to me she says he is doing fine and this will just pass. She is on requip. And recently started on Gabapentin, we are decreasing her requip. She was on haldol many years ago she says for her depression. She says she has parkinsons and told me she is taking propranolol for it. I thinks she has not got it right. She does not know of any aggravating and relieving factors for these episodes. Wheezing 11/29/2012 08/12/2016 Last Assessment & Plan: Patient is audibly wheezing right now. She recently had asthmatic bronchitis and pneumonia, said she is prone to have it. had a course of levaquin. Steroids and bronchodilators. Schizoaffective disorder 11/15/2012 017 Overview: [facility] But [facility] it according to her. Last Assessment & Plan: [facility], But they changed it according to her. Parkinson disease 11/15/2012 12/03/2017 Overview: Radha [place], [place] I went through a lot of DR[facility] Cevallos [facility]. he does not seem to think she has parkinson's. She had drug induced parkinson's like symptoms that resolved when she stopped taking the inciting medications. Last Assessment & Plan: She will send me a note from him of his latest assessment. documented as of this encounter (statuses as of 04/23/2022) [facility]05-[facility]2017 History of Past illness Narrative* Problem Noted Date Resolved Date Post-operative pain 07/10/2016 08/12/2016 Hypomagnesemia 07/10/2016 07/10/2016 Full incontinence of feces 07/08/201607/10 Ankle instability 04/07/2016 08/12/2016 Posterior tibial tendonitis 04/07/201607/17 Trigger thumb of right hand 11/04/201507/17 Cramp in muscle 04/15/2015 08/12/2016 Primary insomnia 03/19/2015 08/12/2016 Last Assessment & Plan: Struggling with insomnia Pain in left knee 12/03/2014 08/12/2016 Overview: Patient has left knee pain , that got better with PT. Last Assessment & Plan: She is going for PT and now she feels better. significantly Weakness of left leg 11/04/2014 08/12/2016 Pain in joint, lower leg 02/19/2014 017 Tingling in extremities 10/11/2013 10/07/19 17 Overview: She is having tingling in her left thigh, that comes and goes. Going on for a couple months , but since the last 2 weeks she has been having it all the time. Last Assessment & Plan: She is having tingling in her left thigh, that comes and goes. Going on for a couple months , but since the last 2 weeks she has been having it all the time. Urgency of urination 03/09/2013 07/11/2013 Frequency of urination 03/09/2013 4 Last Assessment & Plan: Urinary incontinence is being followed and evaluated by Dr Vazquez, she is having some urodynamic studies done. i reveiwed Dr. Fernandez notes. Obesity 03/09/2013 10/06/2016 Overview: 04/25/13 BMI 48.43. Normal BMI 18.5-25, normal weight range of 112-150 pounds in a person 5 feet 5 inches tall. Last Assessment & Plan: Gaining weight since she has not been able to exercise due to her surgeries. Nausea 02/09/2013 08/12/2016 Last Assessment & Plan: Patient has some nausea recently, is on macrobid for suspected UTI, when she came in last week. Since all her tests are negative including urine culture.i am discontinuing that SOB (shortness of breath) on exertion 02/09/2013 08/12/2016 Last Assessment & Plan: The patient has SOB which was extensively evaluated, initially it was thought to be from asthma. After seeing the family consumer science teacher and all evaluation complete it was thought to from restriction of the lungs from her weight. She also has sleep apnea, needs oxygen bled into the cpap machine, as the desaturations at night time does not normalize with out bleeding oxygen in. Today we checked her oxygen , the results are below. resting with o2 at 3liters- 91% resting room air o2 sat- 90% activity room air o2 sat- 84% activity with nc at 3liters- 91% Urinary incontinence 02/09/2013 03/28/2013 Last Assessment & Plan: Patient is having the incontinence for a month. She is on vesicare but it does not help her. Prior to this she had some leakage and dribbling but it was never this bad. She has been having a lot of accidents in the last month. She is indeed a very complex patient and i would like to refer her to a Urologist so he can evaluate her bladder dynamics. Schizophrenia 01/04/2013 02/06/2014 Overview: Dr Delaney is her psychologist . Has not seen him for a year. Patient says that the diagnosis of schizophrenia was taken off the diagnosis. Last Assessment & Plan: Patients notes indicates, that she has schizophrenia. Has been on Thorazine, haldol and invega. These drugs gave her tardive dyskinesia. She was put on tetrabenzine for it, worked miracles with her and then she got some parkinson's like features. She couldn't even feed herself. She tried the medication twice. Currently she is not on any psychotic medications. Movement disorder 12/28/2012 08/12/2016 Last Assessment & Plan: Patient is here today, sitting in front of me, very restless, constantly moving her feet, knees, things, neck, in what looks like tardive dyskinesia. It happens 2/3 times a week continues for many hours before she can get Rest from it, she said starting or increasing doses of neurontin, have not made the episodes any worse. She can talk to us without a problem and although she looks very uncomfortable to me she says he is doing fine and this will just pass. She is on requip. And recently started on Gabapentin, we are decreasing her requip. She was on haldol many years ago she says for her depression. She says she has parkinsons and told me she is taking propranolol for it. I thinks she has not got it right. She does not know of any aggravating and relieving factors for these episodes. Wheezing 11/29/2012 08/12/2016 Last Assessment & Plan: Patient is audibly wheezing right now. She recently had asthmatic bronchitis and pneumonia, said she is prone to have it. had a course of levaquin. Steroids and bronchodilators. Schizoaffective disorder 11/15/2012 017 Overview: [facility] it according to her. Last Assessment & Plan: [facility], But they changed it according to her. Parkinson disease 11/15/2012 12/03/2017 Overview: Radha [place], [place] I went through a lot of DR. Cevallos notes from [facility]. he does not seem to think she has parkinson's. She had drug induced parkinson's like symptoms that resolved when she stopped taking the inciting medications. Last Assessment & Plan: She will send me a note from him of his latest assessment. documented as of this encounter (statuses as of 04/29/2022) [facility]05[facility]2017 History of Past illness Narrative* Problem Noted Date Resolved Date Post-operative pain 07/10/2016 08/12/2016 Hypomagnesemia 07/10/2016 07/10/2016 Full incontinence of feces 07/08/201607/10 Ankle instability 04/07/2016 08/12/2016 Posterior tibial tendonitis 04/07/201607/17 Trigger thumb of right hand 11/04/201507/17 Cramp in muscle 04/15/2015 08/12/2016 Primary insomnia 03/19/2015 08/12/2016 Last Assessment & Plan: Struggling with insomnia Pain in left knee 12/03/2014 08/12/2016 Overview: Patient has left knee pain , that got better with PT. Last Assessment & Plan: She is going for PT and now she feels better. significantly Weakness of left leg 11/04/2014 08/12/2016 Pain in joint, lower leg 02/19/2014 017 Tingling in extremities 10/11/2013 10/07/19 17 Overview: She is having tingling in her left thigh, that comes and goes. Going on for a couple months , but since the last 2 weeks she has been having it all the time. Last Assessment & Plan: She is having tingling in her left thigh, that comes and goes. Going on for a couple months , but since the last 2 weeks she has been having it all the time. Urgency of urination 03/09/2013 07/11/2013 Frequency of urination 03/09/2013 4 Last Assessment & Plan: Urinary incontinence is being followed and evaluated by Dr Vazquez, she is having some urodynamic studies done. i reveiwed Dr. Fernandez notes. Obesity 03/09/2013 10/06/2016 Overview: 04/25/13 BMI 48.43. Normal BMI 18.5-25, normal weight range of 112-150 pounds in a person 5 feet 5 inches tall. Last Assessment & Plan: Gaining weight since she has not been able to exercise due to her surgeries. Nausea 02/09/2013 08/12/2016 Last Assessment & Plan: Patient has some nausea recently, is on macrobid for suspected UTI, when she came in last week. Since all her tests are negative including urine culture.i am discontinuing that SOB (shortness of breath) on exertion 02/09/2013 08/12/2016 Last Assessment & Plan: The patient has SOB which was extensively evaluated, initially it was thought to be from asthma. After seeing the family consumer science teacher and all evaluation complete it was thought to from restriction of the lungs from her weight. She also has sleep apnea, needs oxygen bled into the cpap machine, as the desaturations at night time does not normalize with out bleeding oxygen in. Today we checked her oxygen , the results are below. resting with o2 at 3liters- 91% resting room air o2 sat- 90% activity room air o2 sat- 84% activity with nc at 3liters- 91% Urinary incontinence 02/09/2013 03/28/2013 Last Assessment & Plan: Patient is having the incontinence for a month. She is on vesicare but it does not help her. Prior to this she had some leakage and dribbling but it was never this bad. She has been having a lot of accidents in the last month. She is indeed a very complex patient and i would like to refer her to a Urologist so he can evaluate her bladder dynamics. Schizophrenia 01/04/2013 02/06/2014 Overview: Dr Delaney is her psychologist . Has not seen him for a year. Patient says that the diagnosis of schizophrenia was taken off the diagnosis. Last Assessment & Plan: Patients notes indicates, that she has schizophrenia. Has been on Thorazine, haldol and invega. These drugs gave her tardive dyskinesia. She was put on tetrabenzine for it, worked miracles with her and then she got some parkinson's like features. She couldn't even feed herself. She tried the medication twice. Currently she is not on any psychotic medications. Movement disorder 12/28/2012 08/12/2016 Last Assessment & Plan: Patient is here today, sitting in front of me, very restless, constantly moving her feet, knees, things, neck, in what looks like tardive dyskinesia. It happens 2/3 times a week continues for many hours before she can get Rest from it, she said starting or increasing doses of neurontin, have not made the episodes any worse. She can talk to us without a problem and although she looks very uncomfortable to me she says he is doing fine and this will just pass. She is on requip. And recently started on Gabapentin, we are decreasing her requip. She was on haldol many years ago she says for her depression. She says she has parkinsons and told me she is taking propranolol for it. I thinks she has not got it right. She does not know of any aggravating and relieving factors for these episodes. Wheezing 11/29/2012 08/12/2016 Last Assessment & Plan: Patient is audibly wheezing right now. She recently had asthmatic bronchitis and pneumonia, said she is prone to have it. had a course of levaquin. Steroids and bronchodilators. Schizoaffective disorder 11/15/2012 017 Overview: [facility] it according to her. Last Assessment & Plan: [facility], But they changed it according to her. Parkinson disease 11/15/2012 12/03/2017 Overview: Radha [place], [place] I went through a lot of [facility]allos [facility]. he does not seem to think she has parkinson's. She had drug induced parkinson's like symptoms that resolved when she stopped taking the inciting medications. Last Assessment & Plan: She will send me a note from him of his latest assessment. documented as of this encounter (statuses as of 04/30/2022) [facility]05[facility]2017 History of Past illness Narrative* Problem Noted Date Resolved Date Post-operative pain 07/10/2016 08/12/2016 Hypomagnesemia 07/10/2016 07/10/2016 Full incontinence of feces 07/08/201607/10 Ankle instability 04/07/2016 08/12/2016 Posterior tibial tendonitis 04/07/201607/17 Trigger thumb of right hand 11/04/201507/17 Cramp in muscle 04/15/2015 08/12/2016 Primary insomnia 03/19/2015 08/12/2016 Last Assessment & Plan: Struggling with insomnia Pain in left knee 12/03/2014 08/12/2016 Overview: Patient has left knee pain , that got better with PT. Last Assessment & Plan: She is going for PT and now she feels better. significantly Weakness of left leg 11/04/2014 08/12/2016 Pain in joint, lower leg 02/19/2014 017 Tingling in extremities 10/11/2013 10/07/19 17 Overview: She is having tingling in her left thigh, that comes and goes. Going on for a couple months , but since the last 2 weeks she has been having it all the time. Last Assessment & Plan: She is having tingling in her left thigh, that comes and goes. Going on for a couple months , but since the last 2 weeks she has been having it all the time. Urgency of urination 03/09/2013 07/11/2013 Frequency of urination 03/09/2013 4 Last Assessment & Plan: Urinary incontinence is being followed and evaluated by Dr Vazquez, she is having some urodynamic studies done. i reveiwed Dr. Fernandez notes. Obesity 03/09/2013 10/06/2016 Overview: 04/25/13 BMI 48.43. Normal BMI 18.5-25, normal weight range of 112-150 pounds in a person 5 feet 5 inches tall. Last Assessment & Plan: Gaining weight since she has not been able to exercise due to her surgeries. Nausea 02/09/2013 08/12/2016 Last Assessment & Plan: Patient has some nausea recently, is on macrobid for suspected UTI, when she came in last week. Since all her tests are negative including urine culture.i am discontinuing that SOB (shortness of breath) on exertion 02/09/2013 08/12/2016 Last Assessment & Plan: The patient has SOB which was extensively evaluated, initially it was thought to be from asthma. After seeing the family consumer science teacher and all evaluation complete it was thought to from restriction of the lungs from her weight. She also has sleep apnea, needs oxygen bled into the cpap machine, as the desaturations at night time does not normalize with out bleeding oxygen in. Today we checked her oxygen , the results are below. resting with o2 at 3liters- 91% resting room air o2 sat- 90% activity room air o2 sat- 84% activity with nc at 3liters- 91% Urinary incontinence 02/09/2013 03/28/2013 Last Assessment & Plan: Patient is having the incontinence for a month. She is on vesicare but it does not help her. Prior to this she had some leakage and dribbling but it was never this bad. She has been having a lot of accidents in the last month. She is indeed a very complex patient and i would like to refer her to a Urologist so he can evaluate her bladder dynamics. Schizophrenia 01/04/2013 02/06/2014 Overview: Dr Delaney is her psychologist . Has not seen him for a year. Patient says that the diagnosis of schizophrenia was taken off the diagnosis. Last Assessment & Plan: Patients notes indicates, that she has schizophrenia. Has been on Thorazine, haldol and invega. These drugs gave her tardive dyskinesia. She was put on tetrabenzine for it, worked miracles with her and then she got some parkinson's like features. She couldn't even feed herself. She tried the medication twice. Currently she is not on any psychotic medications. Movement disorder 12/28/2012 08/12/2016 Last Assessment & Plan: Patient is here today, sitting in front of me, very restless, constantly moving her feet, knees, things, neck, in what looks like tardive dyskinesia. It happens 2/3 times a week continues for many hours before she can get Rest from it, she said starting or increasing doses of neurontin, have not made the episodes any worse. She can talk to us without a problem and although she looks very uncomfortable to me she says he is doing fine and this will just pass. She is on requip. And recently started on Gabapentin, we are decreasing her requip. She was on haldol many years ago she says for her depression. She says she has parkinsons and told me she is taking propranolol for it. I thinks she has not got it right. She does not know of any aggravating and relieving factors for these episodes. Wheezing 11/29/2012 08/12/2016 Last Assessment & Plan: Patient is audibly wheezing right now. She recently had asthmatic bronchitis and pneumonia, said she is prone to have it. had a course of levaquin. Steroids and bronchodilators. Schizoaffective disorder 11/15/2012 017 Overview: [facility] But [facility] it according to her. Last Assessment & Plan: [facility], But they changed it according to her. Parkinson disease 11/15/2012 12/03/2017 Overview: Radha [place], [place] I went through a lot of [facility]allos [facility]. he does not seem to think she has parkinson's. She had drug induced parkinson's like symptoms that resolved when she stopped taking the inciting medications. Last Assessment & Plan: She will send me a note from him of his latest assessment. documented as of this encounter (statuses as of 05/01/2022) [facility] History of Past illness Narrative* Problem Noted Date Resolved Date Post-operative pain 07/10/2016 08/12/2016 Hypomagnesemia 07/10/2016 07/10/2016 Full incontinence of feces 07/08/201607/10 Ankle instability 04/07/2016 08/12/2016 Posterior tibial tendonitis 04/07/201607/17 Trigger thumb of right hand 11/04/201507/17 Cramp in muscle 04/15/2015 08/12/2016 Primary insomnia 03/19/2015 08/12/2016 Last Assessment & Plan: Struggling with insomnia Pain in left knee 12/03/2014 08/12/2016 Overview: Patient has left knee pain , that got better with PT. Last Assessment & Plan: She is going for PT and now she feels better. significantly Weakness of left leg 11/04/2014 08/12/2016 Pain in joint, lower leg 02/19/2014 017 Tingling in extremities 10/11/2013 10/07/19 17 Overview: She is having tingling in her left thigh, that comes and goes. Going on for a couple months , but since the last 2 weeks she has been having it all the time. Last Assessment & Plan: She is having tingling in her left thigh, that comes and goes. Going on for a couple months , but since the last 2 weeks she has been having it all the time. Urgency of urination 03/09/2013 07/11/2013 Frequency of urination 03/09/2013 4 Last Assessment & Plan: Urinary incontinence is being followed and evaluated by Dr Vazquez, she is having some urodynamic studies done. i reveiwed Dr. Fernandez notes. Obesity 03/09/2013 10/06/2016 Overview: 04/25/13 BMI 48.43. Normal BMI 18.5-25, normal weight range of 112-150 pounds in a person 5 feet 5 inches tall. Last Assessment & Plan: Gaining weight since she has not been able to exercise due to her surgeries. Nausea 02/09/2013 08/12/2016 Last Assessment & Plan: Patient has some nausea recently, is on macrobid for suspected UTI, when she came in last week. Since all her tests are negative including urine culture.i am discontinuing that SOB (shortness of breath) on exertion 02/09/2013 08/12/2016 Last Assessment & Plan: The patient has SOB which was extensively evaluated, initially it was thought to be from asthma. After seeing the family consumer science teacher and all evaluation complete it was thought to from restriction of the lungs from her weight. She also has sleep apnea, needs oxygen bled into the cpap machine, as the desaturations at night time does not normalize with out bleeding oxygen in. Today we checked her oxygen , the results are below. resting with o2 at 3liters- 91% resting room air o2 sat- 90% activity room air o2 sat- 84% activity with nc at 3liters- 91% Urinary incontinence 02/09/2013 03/28/2013 Last Assessment & Plan: Patient is having the incontinence for a month. She is on vesicare but it does not help her. Prior to this she had some leakage and dribbling but it was never this bad. She has been having a lot of accidents in the last month. She is indeed a very complex patient and i would like to refer her to a Urologist so he can evaluate her bladder dynamics. Schizophrenia 01/04/2013 02/06/2014 Overview: Dr Delaney is her psychologist . Has not seen him for a year. Patient says that the diagnosis of schizophrenia was taken off the diagnosis. Last Assessment & Plan: Patients notes indicates, that she has schizophrenia. Has been on Thorazine, haldol and invega. These drugs gave her tardive dyskinesia. She was put on tetrabenzine for it, worked miracles with her and then she got some parkinson's like features. She couldn't even feed herself. She tried the medication twice. Currently she is not on any psychotic medications. Movement disorder 12/28/2012 08/12/2016 Last Assessment & Plan: Patient is here today, sitting in front of me, very restless, constantly moving her feet, knees, things, neck, in what looks like tardive dyskinesia. It happens 2/3 times a week continues for many hours before she can get Rest from it, she said starting or increasing doses of neurontin, have not made the episodes any worse. She can talk to us without a problem and although she looks very uncomfortable to me she says he is doing fine and this will just pass. She is on requip. And recently started on Gabapentin, we are decreasing her requip. She was on haldol many years ago she says for her depression. She says she has parkinsons and told me she is taking propranolol for it. I thinks she has not got it right. She does not know of any aggravating and relieving factors for these episodes. Wheezing 11/29/2012 08/12/2016 Last Assessment & Plan: Patient is audibly wheezing right now. She recently had asthmatic bronchitis and pneumonia, said she is prone to have it. had a course of levaquin. Steroids and bronchodilators. Schizoaffective disorder 11/15/2012 017 Overview: [facility] But [facility] it according to her. Last Assessment & Plan: [facility], But they changed it according to her. Parkinson disease 11/15/2012 12/03/2017 Overview: Radha [place], [place] I went through a lot of [facility]allos [facility]. he does not seem to think she has parkinson's. She had drug induced parkinson's like symptoms that resolved when she stopped taking the inciting medications. Last Assessment & Plan: She will send me a note from him of his latest assessment. documented as of this encounter (statuses as of 05/08/2022) [facility] History of Past illness Narrative* Problem Noted Date Resolved Date Post-operative pain 07/10/2016 08/12/2016 Hypomagnesemia 07/10/2016 07/10/2016 Full incontinence of feces 07/08/201607/10 Ankle instability 04/07/2016 08/12/2016 Posterior tibial tendonitis 04/07/201607/17 Trigger thumb of right hand 11/04/201507/17 Cramp in muscle 04/15/2015 08/12/2016 Primary insomnia 03/19/2015 08/12/2016 Last Assessment & Plan: Struggling with insomnia Pain in left knee 12/03/2014 08/12/2016 Overview: Patient has left knee pain , that got better with PT. Last Assessment & Plan: She is going for PT and now she feels better. significantly Weakness of left leg 11/04/2014 08/12/2016 Pain in joint, lower leg 02/19/2014 017 Tingling in extremities 10/11/2013 10/07/19 17 Overview: She is having tingling in her left thigh, that comes and goes. Going on for a couple months , but since the last 2 weeks she has been having it all the time. Last Assessment & Plan: She is having tingling in her left thigh, that comes and goes. Going on for a couple months , but since the last 2 weeks she has been having it all the time. Urgency of urination 03/09/2013 07/11/2013 Frequency of urination 03/09/2013 4 Last Assessment & Plan: Urinary incontinence is being followed and evaluated by Dr Vazquez, she is having some urodynamic studies done. i reveiwed Dr. Fernandez notes. Obesity 03/09/2013 10/06/2016 Overview: 04/25/13 BMI 48.43. Normal BMI 18.5-25, normal weight range of 112-150 pounds in a person 5 feet 5 inches tall. Last Assessment & Plan: Gaining weight since she has not been able to exercise due to her surgeries. Nausea 02/09/2013 08/12/2016 Last Assessment & Plan: Patient has some nausea recently, is on macrobid for suspected UTI, when she came in last week. Since all her tests are negative including urine culture.i am discontinuing that SOB (shortness of breath) on exertion 02/09/2013 08/12/2016 Last Assessment & Plan: The patient has SOB which was extensively evaluated, initially it was thought to be from asthma. After seeing the family consumer science teacher and all evaluation complete it was thought to from restriction of the lungs from her weight. She also has sleep apnea, needs oxygen bled into the cpap machine, as the desaturations at night time does not normalize with out bleeding oxygen in. Today we checked her oxygen , the results are below. resting with o2 at 3liters- 91% resting room air o2 sat- 90% activity room air o2 sat- 84% activity with nc at 3liters- 91% Urinary incontinence 02/09/2013 03/28/2013 Last Assessment & Plan: Patient is having the incontinence for a month. She is on vesicare but it does not help her. Prior to this she had some leakage and dribbling but it was never this bad. She has been having a lot of accidents in the last month. She is indeed a very complex patient and i would like to refer her to a Urologist so he can evaluate her bladder dynamics. Schizophrenia 01/04/2013 02/06/2014 Overview: Dr Delaney is her psychologist . Has not seen him for a year. Patient says that the diagnosis of schizophrenia was taken off the diagnosis. Last Assessment & Plan: Patients notes indicates, that she has schizophrenia. Has been on Thorazine, haldol and invega. These drugs gave her tardive dyskinesia. She was put on tetrabenzine for it, worked miracles with her and then she got some parkinson's like features. She couldn't even feed herself. She tried the medication twice. Currently she is not on any psychotic medications. Movement disorder 12/28/2012 08/12/2016 Last Assessment & Plan: Patient is here today, sitting in front of me, very restless, constantly moving her feet, knees, things, neck, in what looks like tardive dyskinesia. It happens 2/3 times a week continues for many hours before she can get Rest from it, she said starting or increasing doses of neurontin, have not made the episodes any worse. She can talk to us without a problem and although she looks very uncomfortable to me she says he is doing fine and this will just pass. She is on requip. And recently started on Gabapentin, we are decreasing her requip. She was on haldol many years ago she says for her depression. She says she has parkinsons and told me she is taking propranolol for it. I thinks she has not got it right. She does not know of any aggravating and relieving factors for these episodes. Wheezing 11/29/2012 08/12/2016 Last Assessment & Plan: Patient is audibly wheezing right now. She recently had asthmatic bronchitis and pneumonia, said she is prone to have it. had a course of levaquin. Steroids and bronchodilators. Schizoaffective disorder 11/15/2012 017 Overview: [facility] But [facility] it according to her. Last Assessment & Plan: [facility], But they changed it according to her. Parkinson disease 11/15/2012 12/03/2017 Overview: Radha [place], [place] I went through a lot of DR[facility] Cevallos [facility]. he does not seem to think she has parkinson's. She had drug induced parkinson's like symptoms that resolved when she stopped taking the inciting medications. Last Assessment & Plan: She will send me a note from him of his latest assessment. documented as of this encounter (statuses as of 05/15/2022) [facility]05[facility]2017 History of Past illness Narrative* Problem Noted Date Resolved Date Post-operative pain 07/10/2016 08/12/2016 Hypomagnesemia 07/10/2016 07/10/2016 Full incontinence of feces 07/08/201607/10 Ankle instability 04/07/2016 08/12/2016 Posterior tibial tendonitis 04/07/201607/17 Trigger thumb of right hand 11/04/201507/17 Cramp in muscle 04/15/2015 08/12/2016 Primary insomnia 03/19/2015 08/12/2016 Last Assessment & Plan: Struggling with insomnia Pain in left knee 12/03/2014 08/12/2016 Overview: Patient has left knee pain , that got better with PT. Last Assessment & Plan: She is going for PT and now she feels better. significantly Weakness of left leg 11/04/2014 08/12/2016 Pain in joint, lower leg 02/19/2014 017 Tingling in extremities 10/11/2013 10/07/19 17 Overview: She is having tingling in her left thigh, that comes and goes. Going on for a couple months , but since the last 2 weeks she has been having it all the time. Last Assessment & Plan: She is having tingling in her left thigh, that comes and goes. Going on for a couple months , but since the last 2 weeks she has been having it all the time. Urgency of urination 03/09/2013 07/11/2013 Frequency of urination 03/09/2013 4 Last Assessment & Plan: Urinary incontinence is being followed and evaluated by Dr Vazquez, she is having some urodynamic studies done. i reveiwed Dr. Fernandez notes. Obesity 03/09/2013 10/06/2016 Overview: 04/25/13 BMI 48.43. Normal BMI 18.5-25, normal weight range of 112-150 pounds in a person 5 feet 5 inches tall. Last Assessment & Plan: Gaining weight since she has not been able to exercise due to her surgeries. Nausea 02/09/2013 08/12/2016 Last Assessment & Plan: Patient has some nausea recently, is on macrobid for suspected UTI, when she came in last week. Since all her tests are negative including urine culture.i am discontinuing that SOB (shortness of breath) on exertion 02/09/2013 08/12/2016 Last Assessment & Plan: The patient has SOB which was extensively evaluated, initially it was thought to be from asthma. After seeing the family consumer science teacher and all evaluation complete it was thought to from restriction of the lungs from her weight. She also has sleep apnea, needs oxygen bled into the cpap machine, as the desaturations at night time does not normalize with out bleeding oxygen in. Today we checked her oxygen , the results are below. resting with o2 at 3liters- 91% resting room air o2 sat- 90% activity room air o2 sat- 84% activity with nc at 3liters- 91% Urinary incontinence 02/09/2013 03/28/2013 Last Assessment & Plan: Patient is having the incontinence for a month. She is on vesicare but it does not help her. Prior to this she had some leakage and dribbling but it was never this bad. She has been having a lot of accidents in the last month. She is indeed a very complex patient and i would like to refer her to a Urologist so he can evaluate her bladder dynamics. Schizophrenia 01/04/2013 02/06/2014 Overview: Dr Delaney is her psychologist . Has not seen him for a year. Patient says that the diagnosis of schizophrenia was taken off the diagnosis. Last Assessment & Plan: Patients notes indicates, that she has schizophrenia. Has been on Thorazine, haldol and invega. These drugs gave her tardive dyskinesia. She was put on tetrabenzine for it, worked miracles with her and then she got some parkinson's like features. She couldn't even feed herself. She tried the medication twice. Currently she is not on any psychotic medications. Movement disorder 12/28/2012 08/12/2016 Last Assessment & Plan: Patient is here today, sitting in front of me, very restless, constantly moving her feet, knees, things, neck, in what looks like tardive dyskinesia. It happens 2/3 times a week continues for many hours before she can get Rest from it, she said starting or increasing doses of neurontin, have not made the episodes any worse. She can talk to us without a problem and although she looks very uncomfortable to me she says he is doing fine and this will just pass. She is on requip. And recently started on Gabapentin, we are decreasing her requip. She was on haldol many years ago she says for her depression. She says she has parkinsons and told me she is taking propranolol for it. I thinks she has not got it right. She does not know of any aggravating and relieving factors for these episodes. Wheezing 11/29/2012 08/12/2016 Last Assessment & Plan: Patient is audibly wheezing right now. She recently had asthmatic bronchitis and pneumonia, said she is prone to have it. had a course of levaquin. Steroids and bronchodilators. Schizoaffective disorder 11/15/2012 017 Overview: [facility] But [facility] it according to her. Last Assessment & Plan: [facility], But they changed it according to her. Parkinson disease 11/15/2012 12/03/2017 Overview: Radha [place], [place] I went through a lot of DR. Cevallos notes from [facility]. he does not seem to think she has parkinson's. She had drug induced parkinson's like symptoms that resolved when she stopped taking the inciting medications. Last Assessment & Plan: She will send me a note from him of his latest assessment. documented as of this encounter (statuses as of 05/25/2022) [facility]2017 History of Past illness Narrative* Problem Noted Date Resolved Date Post-operative pain 07/10/2016 08/12/2016 Hypomagnesemia 07/10/2016 07/10/2016 Full incontinence of feces 07/08/201607/10 Ankle instability 04/07/2016 08/12/2016 Posterior tibial tendonitis 04/07/201607/17 Trigger thumb of right hand 11/04/201507/17 Cramp in muscle 04/15/2015 08/12/2016 Primary insomnia 03/19/2015 08/12/2016 Last Assessment & Plan: Struggling with insomnia Pain in left knee 12/03/2014 08/12/2016 Overview: Patient has left knee pain , that got better with PT. Last Assessment & Plan: She is going for PT and now she feels better. significantly Weakness of left leg 11/04/2014 08/12/2016 Pain in joint, lower leg 02/19/2014 017 Tingling in extremities 10/11/2013 10/07/19 17 Overview: She is having tingling in her left thigh, that comes and goes. Going on for a couple months , but since the last 2 weeks she has been having it all the time. Last Assessment & Plan: She is having tingling in her left thigh, that comes and goes. Going on for a couple months , but since the last 2 weeks she has been having it all the time. Urgency of urination 03/09/2013 07/11/2013 Frequency of urination 03/09/2013 4 Last Assessment & Plan: Urinary incontinence is being followed and evaluated by Dr Vazquez, she is having some urodynamic studies done. i reveiwed Dr. Fernandez notes. Obesity 03/09/2013 10/06/2016 Overview: 04/25/13 BMI 48.43. Normal BMI 18.5-25, normal weight range of 112-150 pounds in a person 5 feet 5 inches tall. Last Assessment & Plan: Gaining weight since she has not been able to exercise due to her surgeries. Nausea 02/09/2013 08/12/2016 Last Assessment & Plan: Patient has some nausea recently, is on macrobid for suspected UTI, when she came in last week. Since all her tests are negative including urine culture.i am discontinuing that SOB (shortness of breath) on exertion 02/09/2013 08/12/2016 Last Assessment & Plan: The patient has SOB which was extensively evaluated, initially it was thought to be from asthma. After seeing the family consumer science teacher and all evaluation complete it was thought to from restriction of the lungs from her weight. She also has sleep apnea, needs oxygen bled into the cpap machine, as the desaturations at night time does not normalize with out bleeding oxygen in. Today we checked her oxygen , the results are below. resting with o2 at 3liters- 91% resting room air o2 sat- 90% activity room air o2 sat- 84% activity with nc at 3liters- 91% Urinary incontinence 02/09/2013 03/28/2013 Last Assessment & Plan: Patient is having the incontinence for a month. She is on vesicare but it does not help her. Prior to this she had some leakage and dribbling but it was never this bad. She has been having a lot of accidents in the last month. She is indeed a very complex patient and i would like to refer her to a Urologist so he can evaluate her bladder dynamics. Schizophrenia 01/04/2013 02/06/2014 Overview: Dr Delaney is her psychologist . Has not seen him for a year. Patient says that the diagnosis of schizophrenia was taken off the diagnosis. Last Assessment & Plan: Patients notes indicates, that she has schizophrenia. Has been on Thorazine, haldol and invega. These drugs gave her tardive dyskinesia. She was put on tetrabenzine for it, worked miracles with her and then she got some parkinson's like features. She couldn't even feed herself. She tried the medication twice. Currently she is not on any psychotic medications. Movement disorder 12/28/2012 08/12/2016 Last Assessment & Plan: Patient is here today, sitting in front of me, very restless, constantly moving her feet, knees, things, neck, in what looks like tardive dyskinesia. It happens 2/3 times a week continues for many hours before she can get Rest from it, she said starting or increasing doses of neurontin, have not made the episodes any worse. She can talk to us without a problem and although she looks very uncomfortable to me she says he is doing fine and this will just pass. She is on requip. And recently started on Gabapentin, we are decreasing her requip. She was on haldol many years ago she says for her depression. She says she has parkinsons and told me she is taking propranolol for it. I thinks she has not got it right. She does not know of any aggravating and relieving factors for these episodes. Wheezing 11/29/2012 08/12/2016 Last Assessment & Plan: Patient is audibly wheezing right now. She recently had asthmatic bronchitis and pneumonia, said she is prone to have it. had a course of levaquin. Steroids and bronchodilators. Schizoaffective disorder 11/15/2012 05/09/2 017 Overview: [facility] it according to her. Last Assessment & Plan: [facility], But they changed it according to her. Parkinson disease 11/15/2012 12/03/2017 Overview: Radha [place], [place] I went through a lot of [facility]allos [facility]. he does not seem to think she has parkinson's. She had drug induced parkinson's like symptoms that resolved when she stopped taking the inciting medications. Last Assessment & Plan: She will send me a note from him of his latest assessment. documented as of this encounter (statuses as of 05/29/2022) [facility]2017 History of Past illness Narrative* Problem Noted Date Resolved Date Post-operative pain 07/10/2016 08/12/2016 Hypomagnesemia 07/10/2016 07/10/2016 Full incontinence of feces 07/08/201607/10 Ankle instability 04/07/2016 08/12/2016 Posterior tibial tendonitis 04/07/201607/17 Trigger thumb of right hand 11/04/201507/17 Cramp in muscle 04/15/2015 08/12/2016 Primary insomnia 03/19/2015 08/12/2016 Last Assessment & Plan: Struggling with insomnia Pain in left knee 12/03/2014 08/12/2016 Overview: Patient has left knee pain , that got better with PT. Last Assessment & Plan: She is going for PT and now she feels better. significantly Weakness of left leg 11/04/2014 08/12/2016 Pain in joint, lower leg 02/19/2014 017 Tingling in extremities 10/11/2013 10/07/19 17 Overview: She is having tingling in her left thigh, that comes and goes. Going on for a couple months , but since the last 2 weeks she has been having it all the time. Last Assessment & Plan: She is having tingling in her left thigh, that comes and goes. Going on for a couple months , but since the last 2 weeks she has been having it all the time. Urgency of urination 03/09/2013 07/11/2013 Frequency of urination 03/09/2013 4 Last Assessment & Plan: Urinary incontinence is being followed and evaluated by Dr Vazquez, she is having some urodynamic studies done. i reveiwed Dr. Fernandez notes. Obesity 03/09/2013 10/06/2016 Overview: 04/25/13 BMI 48.43. Normal BMI 18.5-25, normal weight range of 112-150 pounds in a person 5 feet 5 inches tall. Last Assessment & Plan: Gaining weight since she has not been able to exercise due to her surgeries. Nausea 02/09/2013 08/12/2016 Last Assessment & Plan: Patient has some nausea recently, is on macrobid for suspected UTI, when she came in last week. Since all her tests are negative including urine culture.i am discontinuing that SOB (shortness of breath) on exertion 02/09/2013 08/12/2016 Last Assessment & Plan: The patient has SOB which was extensively evaluated, initially it was thought to be from asthma. After seeing the family consumer science teacher and all evaluation complete it was thought to from restriction of the lungs from her weight. She also has sleep apnea, needs oxygen bled into the cpap machine, as the desaturations at night time does not normalize with out bleeding oxygen in. Today we checked her oxygen , the results are below. resting with o2 at 3liters- 91% resting room air o2 sat- 90% activity room air o2 sat- 84% activity with nc at 3liters- 91% Urinary incontinence 02/09/2013 03/28/2013 Last Assessment & Plan: Patient is having the incontinence for a month. She is on vesicare but it does not help her. Prior to this she had some leakage and dribbling but it was never this bad. She has been having a lot of accidents in the last month. She is indeed a very complex patient and i would like to refer her to a Urologist so he can evaluate her bladder dynamics. Schizophrenia 01/04/2013 02/06/2014 Overview: Dr Delaney is her psychologist . Has not seen him for a year. Patient says that the diagnosis of schizophrenia was taken off the diagnosis. Last Assessment & Plan: Patients notes indicates, that she has schizophrenia. Has been on Thorazine, haldol and invega. These drugs gave her tardive dyskinesia. She was put on tetrabenzine for it, worked miracles with her and then she got some parkinson's like features. She couldn't even feed herself. She tried the medication twice. Currently she is not on any psychotic medications. Movement disorder 12/28/2012 08/12/2016 Last Assessment & Plan: Patient is here today, sitting in front of me, very restless, constantly moving her feet, knees, things, neck, in what looks like tardive dyskinesia. It happens 2/3 times a week continues for many hours before she can get Rest from it, she said starting or increasing doses of neurontin, have not made the episodes any worse. She can talk to us without a problem and although she looks very uncomfortable to me she says he is doing fine and this will just pass. She is on requip. And recently started on Gabapentin, we are decreasing her requip. She was on haldol many years ago she says for her depression. She says she has parkinsons and told me she is taking propranolol for it. I thinks she has not got it right. She does not know of any aggravating and relieving factors for these episodes. Wheezing 11/29/2012 08/12/2016 Last Assessment & Plan: Patient is audibly wheezing right now. She recently had asthmatic bronchitis and pneumonia, said she is prone to have it. had a course of levaquin. Steroids and bronchodilators. Schizoaffective disorder 11/15/2012 017 Overview: [facility] according to her. Last Assessment & Plan: [facility], But they changed it according to her. Parkinson disease 11/15/2012 12/03/2017 Overview: [place], [place] I went through a lot of [facility]allos [facility]. he does not seem to think she has parkinson's. She had drug induced parkinson's like symptoms that resolved when she stopped taking the inciting medications. Last Assessment & Plan: She will send me a note from him of his latest assessment. documented as of this encounter (statuses as of 05/30/2022) [facility] History of Past illness Narrative* Problem Noted Date Resolved Date Post-operative pain 07/10/2016 08/12/2016 Hypomagnesemia 07/10/2016 07/10/2016 Full incontinence of feces 07/08/201607/10 Ankle instability 04/07/2016 08/12/2016 Posterior tibial tendonitis 04/07/201607/17 Trigger thumb of right hand 11/04/201507/17 Cramp in muscle 04/15/2015 08/12/2016 Primary insomnia 03/19/2015 08/12/2016 Last Assessment & Plan: Struggling with insomnia Pain in left knee 12/03/2014 08/12/2016 Overview: Patient has left knee pain , that got better with PT. Last Assessment & Plan: She is going for PT and now she feels better. significantly Weakness of left leg 11/04/2014 08/12/2016 Pain in joint, lower leg 02/19/2014 017 Tingling in extremities 10/11/2013 10/07/19 17 Overview: She is having tingling in her left thigh, that comes and goes. Going on for a couple months , but since the last 2 weeks she has been having it all the time. Last Assessment & Plan: She is having tingling in her left thigh, that comes and goes. Going on for a couple months , but since the last 2 weeks she has been having it all the time. Urgency of urination 03/09/2013 07/11/2013 Frequency of urination 03/09/2013 4 Last Assessment & Plan: Urinary incontinence is being followed and evaluated by Dr Vazquez, she is having some urodynamic studies done. i reveiwed Dr. Fernandez notes. Obesity 03/09/2013 10/06/2016 Overview: 04/25/13 BMI 48.43. Normal BMI 18.5-25, normal weight range of 112-150 pounds in a person 5 feet 5 inches tall. Last Assessment & Plan: Gaining weight since she has not been able to exercise due to her surgeries. Nausea 02/09/2013 08/12/2016 Last Assessment & Plan: Patient has some nausea recently, is on macrobid for suspected UTI, when she came in last week. Since all her tests are negative including urine culture.i am discontinuing that SOB (shortness of breath) on exertion 02/09/2013 08/12/2016 Last Assessment & Plan: The patient has SOB which was extensively evaluated, initially it was thought to be from asthma. After seeing the family consumer science teacher and all evaluation complete it was thought to from restriction of the lungs from her weight. She also has sleep apnea, needs oxygen bled into the cpap machine, as the desaturations at night time does not normalize with out bleeding oxygen in. Today we checked her oxygen , the results are below. resting with o2 at 3liters- 91% resting room air o2 sat- 90% activity room air o2 sat- 84% activity with nc at 3liters- 91% Urinary incontinence 02/09/2013 03/28/2013 Last Assessment & Plan: Patient is having the incontinence for a month. She is on vesicare but it does not help her. Prior to this she had some leakage and dribbling but it was never this bad. She has been having a lot of accidents in the last month. She is indeed a very complex patient and i would like to refer her to a Urologist so he can evaluate her bladder dynamics. Schizophrenia 01/04/2013 02/06/2014 Overview: Dr Delaney is her psychologist . Has not seen him for a year. Patient says that the diagnosis of schizophrenia was taken off the diagnosis. Last Assessment & Plan: Patients notes indicates, that she has schizophrenia. Has been on Thorazine, haldol and invega. These drugs gave her tardive dyskinesia. She was put on tetrabenzine for it, worked miracles with her and then she got some parkinson's like features. She couldn't even feed herself. She tried the medication twice. Currently she is not on any psychotic medications. Movement disorder 12/28/2012 08/12/2016 Last Assessment & Plan: Patient is here today, sitting in front of me, very restless, constantly moving her feet, knees, things, neck, in what looks like tardive dyskinesia. It happens 2/3 times a week continues for many hours before she can get Rest from it, she said starting or increasing doses of neurontin, have not made the episodes any worse. She can talk to us without a problem and although she looks very uncomfortable to me she says he is doing fine and this will just pass. She is on requip. And recently started on Gabapentin, we are decreasing her requip. She was on haldol many years ago she says for her depression. She says she has parkinsons and told me she is taking propranolol for it. I thinks she has not got it right. She does not know of any aggravating and relieving factors for these episodes. Wheezing 11/29/2012 08/12/2016 Last Assessment & Plan: Patient is audibly wheezing right now. She recently had asthmatic bronchitis and pneumonia, said she is prone to have it. had a course of levaquin. Steroids and bronchodilators. Schizoaffective disorder 11/15/2012 017 Overview: [facility] But [facility] it according to her. Last Assessment & Plan: [facility], But they changed it according to her. Parkinson disease 11/15/2012 12/03/2017 Overview: [place], [place] I went through a lot of [facility]. [facility]allos [facility]. he does not seem to think she has parkinson's. She had drug induced parkinson's like symptoms that resolved when she stopped taking the inciting medications. Last Assessment & Plan: She will send me a note from him of his latest assessment. documented as of this encounter (statuses as of 06/06/2022) [facility]05-26-2017 History of Past illness Narrative* Problem Noted Date Resolved Date Post-operative pain 07/10/2016 08/12/2016 Hypomagnesemia 07/10/2016 07/10/2016 Full incontinence of feces 07/08/201607/10 Ankle instability 04/07/2016 08/12/2016 Posterior tibial tendonitis 04/07/201607/17 Trigger thumb of right hand 11/04/201507/17 Cramp in muscle 04/15/2015 08/12/2016 Primary insomnia 03/19/2015 08/12/2016 Last Assessment & Plan: Struggling with insomnia Pain in left knee 12/03/2014 08/12/2016 Overview: Patient has left knee pain , that got better with PT. Last Assessment & Plan: She is going for PT and now she feels better. significantly Weakness of left leg 11/04/2014 08/12/2016 Pain in joint, lower leg 02/19/2014 017 Tingling in extremities 10/11/2013 10/07/19 17 Overview: She is having tingling in her left thigh, that comes and goes. Going on for a couple months , but since the last 2 weeks she has been having it all the time. Last Assessment & Plan: She is having tingling in her left thigh, that comes and goes. Going on for a couple months , but since the last 2 weeks she has been having it all the time. Urgency of urination 03/09/2013 07/11/2013 Frequency of urination 03/09/2013 4 Last Assessment & Plan: Urinary incontinence is being followed and evaluated by Dr Vazquez, she is having some urodynamic studies done. i reveiwed Dr. Fernandez notes. Obesity 03/09/2013 10/06/2016 Overview: 04/25/13 BMI 48.43. Normal BMI 18.5-25, normal weight range of 112-150 pounds in a person 5 feet 5 inches tall. Last Assessment & Plan: Gaining weight since she has not been able to exercise due to her surgeries. Nausea 02/09/2013 08/12/2016 Last Assessment & Plan: Patient has some nausea recently, is on macrobid for suspected UTI, when she came in last week. Since all her tests are negative including urine culture.i am discontinuing that SOB (shortness of breath) on exertion 02/09/2013 08/12/2016 Last Assessment & Plan: The patient has SOB which was extensively evaluated, initially it was thought to be from asthma. After seeing the family consumer science teacher and all evaluation complete it was thought to from restriction of the lungs from her weight. She also has sleep apnea, needs oxygen bled into the cpap machine, as the desaturations at night time does not normalize with out bleeding oxygen in. Today we checked her oxygen , the results are below. resting with o2 at 3liters- 91% resting room air o2 sat- 90% activity room air o2 sat- 84% activity with nc at 3liters- 91% Urinary incontinence 02/09/2013 03/28/2013 Last Assessment & Plan: Patient is having the incontinence for a month. She is on vesicare but it does not help her. Prior to this she had some leakage and dribbling but it was never this bad. She has been having a lot of accidents in the last month. She is indeed a very complex patient and i would like to refer her to a Urologist so he can evaluate her bladder dynamics. Schizophrenia 01/04/2013 02/06/2014 Overview: Dr Delaney is her psychologist . Has not seen him for a year. Patient says that the diagnosis of schizophrenia was taken off the diagnosis. Last Assessment & Plan: Patients notes indicates, that she has schizophrenia. Has been on Thorazine, haldol and invega. These drugs gave her tardive dyskinesia. She was put on tetrabenzine for it, worked miracles with her and then she got some parkinson's like features. She couldn't even feed herself. She tried the medication twice. Currently she is not on any psychotic medications. Movement disorder 12/28/2012 08/12/2016 Last Assessment & Plan: Patient is here today, sitting in front of me, very restless, constantly moving her feet, knees, things, neck, in what looks like tardive dyskinesia. It happens 2/3 times a week continues for many hours before she can get Rest from it, she said starting or increasing doses of neurontin, have not made the episodes any worse. She can talk to us without a problem and although she looks very uncomfortable to me she says he is doing fine and this will just pass. She is on requip. And recently started on Gabapentin, we are decreasing her requip. She was on haldol many years ago she says for her depression. She says she has parkinsons and told me she is taking propranolol for it. I thinks she has not got it right. She does not know of any aggravating and relieving factors for these episodes. Wheezing 11/29/2012 08/12/2016 Last Assessment & Plan: Patient is audibly wheezing right now. She recently had asthmatic bronchitis and pneumonia, said she is prone to have it. had a course of levaquin. Steroids and bronchodilators. Schizoaffective disorder 11/15/2012 017 Overview: [facility] But [facility] it according to her. Last Assessment & Plan: [facility], But they changed it according to her. Parkinson disease 11/15/2012 12/03/2017 Overview: [place], [place] I went through a lot of DR. Cevallos [facility]. he does not seem to think she has parkinson's. She had drug induced parkinson's like symptoms that resolved when she stopped taking the inciting medications. Last Assessment & Plan: She will send me a note from him of his latest assessment. documented as of this encounter (statuses as of 06/11/2022) [facility]05-[facility]2017 History of Past illness Narrative* Problem Noted Date Resolved Date Post-operative pain 07/10/2016 08/12/2016 Hypomagnesemia 07/10/2016 07/10/2016 Full incontinence of feces 07/08/201607/10 Ankle instability 04/07/2016 08/12/2016 Posterior tibial tendonitis 04/07/201607/17 Trigger thumb of right hand 11/04/201507/17 Cramp in muscle 04/15/2015 08/12/2016 Primary insomnia 03/19/2015 08/12/2016 Last Assessment & Plan: Struggling with insomnia Pain in left knee 12/03/2014 08/12/2016 Overview: Patient has left knee pain , that got better with PT. Last Assessment & Plan: She is going for PT and now she feels better. significantly Weakness of left leg 11/04/2014 08/12/2016 Pain in joint, lower leg 02/19/2014 017 Tingling in extremities 10/11/2013 10/07/19 17 Overview: She is having tingling in her left thigh, that comes and goes. Going on for a couple months , but since the last 2 weeks she has been having it all the time. Last Assessment & Plan: She is having tingling in her left thigh, that comes and goes. Going on for a couple months , but since the last 2 weeks she has been having it all the time. Urgency of urination 03/09/2013 07/11/2013 Frequency of urination 03/09/2013 4 Last Assessment & Plan: Urinary incontinence is being followed and evaluated by Dr Vazquez, she is having some urodynamic studies done. i reveiwed Dr. Fernandez notes. Obesity 03/09/2013 10/06/2016 Overview: 04/25/13 BMI 48.43. Normal BMI 18.5-25, normal weight range of 112-150 pounds in a person 5 feet 5 inches tall. Last Assessment & Plan: Gaining weight since she has not been able to exercise due to her surgeries. Nausea 02/09/2013 08/12/2016 Last Assessment & Plan: Patient has some nausea recently, is on macrobid for suspected UTI, when she came in last week. Since all her tests are negative including urine culture.i am discontinuing that SOB (shortness of breath) on exertion 02/09/2013 08/12/2016 Last Assessment & Plan: The patient has SOB which was extensively evaluated, initially it was thought to be from asthma. After seeing the family consumer science teacher and all evaluation complete it was thought to from restriction of the lungs from her weight. She also has sleep apnea, needs oxygen bled into the cpap machine, as the desaturations at night time does not normalize with out bleeding oxygen in. Today we checked her oxygen , the results are below. resting with o2 at 3liters- 91% resting room air o2 sat- 90% activity room air o2 sat- 84% activity with nc at 3liters- 91% Urinary incontinence 02/09/2013 03/28/2013 Last Assessment & Plan: Patient is having the incontinence for a month. She is on vesicare but it does not help her. Prior to this she had some leakage and dribbling but it was never this bad. She has been having a lot of accidents in the last month. She is indeed a very complex patient and i would like to refer her to a Urologist so he can evaluate her bladder dynamics. Schizophrenia 01/04/2013 02/06/2014 Overview: Dr Delaney is her psychologist . Has not seen him for a year. Patient says that the diagnosis of schizophrenia was taken off the diagnosis. Last Assessment & Plan: Patients notes indicates, that she has schizophrenia. Has been on Thorazine, haldol and invega. These drugs gave her tardive dyskinesia. She was put on tetrabenzine for it, worked miracles with her and then she got some parkinson's like features. She couldn't even feed herself. She tried the medication twice. Currently she is not on any psychotic medications. Movement disorder 12/28/2012 08/12/2016 Last Assessment & Plan: Patient is here today, sitting in front of me, very restless, constantly moving her feet, knees, things, neck, in what looks like tardive dyskinesia. It happens 2/3 times a week continues for many hours before she can get Rest from it, she said starting or increasing doses of neurontin, have not made the episodes any worse. She can talk to us without a problem and although she looks very uncomfortable to me she says he is doing fine and this will just pass. She is on requip. And recently started on Gabapentin, we are decreasing her requip. She was on haldol many years ago she says for her depression. She says she has parkinsons and told me she is taking propranolol for it. I thinks she has not got it right. She does not know of any aggravating and relieving factors for these episodes. Wheezing 11/29/2012 08/12/2016 Last Assessment & Plan: Patient is audibly wheezing right now. She recently had asthmatic bronchitis and pneumonia, said she is prone to have it. had a course of levaquin. Steroids and bronchodilators. Schizoaffective disorder 11/15/2012 017 Overview: [facility] But [facility] it according to her. Last Assessment & Plan: [facility], But they changed it according to her. Parkinson disease 11/15/2012 12/03/2017 Overview: [place], [place] I went through a lot of DR. Cevallos notes from [facility]. he does not seem to think she has parkinson's. She had drug induced parkinson's like symptoms that resolved when she stopped taking the inciting medications. Last Assessment & Plan: She will send me a note from him of his latest assessment. documented as of this encounter (statuses as of 06/11/2022) [facility]05[facility]2017 History of Past illness Narrative* Problem Noted Date Resolved Date Post-operative pain 07/10/2016 08/12/2016 Hypomagnesemia 07/10/2016 07/10/2016 Full incontinence of feces 07/08/201607/10 Ankle instability 04/07/2016 08/12/2016 Posterior tibial tendonitis 04/07/201607/17 Trigger thumb of right hand 11/04/201507/17 Cramp in muscle 04/15/2015 08/12/2016 Primary insomnia 03/19/2015 08/12/2016 Last Assessment & Plan: Struggling with insomnia Pain in left knee 12/03/2014 08/12/2016 Overview: Patient has left knee pain , that got better with PT. Last Assessment & Plan: She is going for PT and now she feels better. significantly Weakness of left leg 11/04/2014 08/12/2016 Pain in joint, lower leg 02/19/2014 017 Tingling in extremities 10/11/2013 10/07/19 17 Overview: She is having tingling in her left thigh, that comes and goes. Going on for a couple months , but since the last 2 weeks she has been having it all the time. Last Assessment & Plan: She is having tingling in her left thigh, that comes and goes. Going on for a couple months , but since the last 2 weeks she has been having it all the time. Urgency of urination 03/09/2013 07/11/2013 Frequency of urination 03/09/2013 4 Last Assessment & Plan: Urinary incontinence is being followed and evaluated by Dr Vazquez, she is having some urodynamic studies done. i reveiwed Dr. Fernandez notes. Obesity 03/09/2013 10/06/2016 Overview: 04/25/13 BMI 48.43. Normal BMI 18.5-25, normal weight range of 112-150 pounds in a person 5 feet 5 inches tall. Last Assessment & Plan: Gaining weight since she has not been able to exercise due to her surgeries. Nausea 02/09/2013 08/12/2016 Last Assessment & Plan: Patient has some nausea recently, is on macrobid for suspected UTI, when she came in last week. Since all her tests are negative including urine culture.i am discontinuing that SOB (shortness of breath) on exertion 02/09/2013 08/12/2016 Last Assessment & Plan: The patient has SOB which was extensively evaluated, initially it was thought to be from asthma. After seeing the family consumer science teacher and all evaluation complete it was thought to from restriction of the lungs from her weight. She also has sleep apnea, needs oxygen bled into the cpap machine, as the desaturations at night time does not normalize with out bleeding oxygen in. Today we checked her oxygen , the results are below. resting with o2 at 3liters- 91% resting room air o2 sat- 90% activity room air o2 sat- 84% activity with nc at 3liters- 91% Urinary incontinence 02/09/2013 03/28/2013 Last Assessment & Plan: Patient is having the incontinence for a month. She is on vesicare but it does not help her. Prior to this she had some leakage and dribbling but it was never this bad. She has been having a lot of accidents in the last month. She is indeed a very complex patient and i would like to refer her to a Urologist so he can evaluate her bladder dynamics. Schizophrenia 01/04/2013 02/06/2014 Overview: Dr Delaney is her psychologist . Has not seen him for a year. Patient says that the diagnosis of schizophrenia was taken off the diagnosis. Last Assessment & Plan: Patients notes indicates, that she has schizophrenia. Has been on Thorazine, haldol and invega. These drugs gave her tardive dyskinesia. She was put on tetrabenzine for it, worked miracles with her and then she got some parkinson's like features. She couldn't even feed herself. She tried the medication twice. Currently she is not on any psychotic medications. Movement disorder 12/28/2012 08/12/2016 Last Assessment & Plan: Patient is here today, sitting in front of me, very restless, constantly moving her feet, knees, things, neck, in what looks like tardive dyskinesia. It happens 2/3 times a week continues for many hours before she can get Rest from it, she said starting or increasing doses of neurontin, have not made the episodes any worse. She can talk to us without a problem and although she looks very uncomfortable to me she says he is doing fine and this will just pass. She is on requip. And recently started on Gabapentin, we are decreasing her requip. She was on haldol many years ago she says for her depression. She says she has parkinsons and told me she is taking propranolol for it. I thinks she has not got it right. She does not know of any aggravating and relieving factors for these episodes. Wheezing 11/29/2012 08/12/2016 Last Assessment & Plan: Patient is audibly wheezing right now. She recently had asthmatic bronchitis and pneumonia, said she is prone to have it. had a course of levaquin. Steroids and bronchodilators. Schizoaffective disorder 11/15/2012 017 Overview: [facility] according to her. Last Assessment & Plan: [facility], But [facility] changed it according to her. Parkinson disease 11/15/2012 12/03/2017 Overview: [place], [place] I went through a lot of DR. [facility]allos [facility]. he does not seem to think she has parkinson's. She had drug induced parkinson's like symptoms that resolved when she stopped taking the inciting medications. Last Assessment & Plan: She will send me a note from him of his latest assessment. documented as of this encounter (statuses as of 06/12/2022) [facility] History of Past illness Narrative* Problem Noted Date Resolved Date Post-operative pain 07/10/2016 08/12/2016 Hypomagnesemia 07/10/2016 07/10/2016 Full incontinence of feces 07/08/201607/10 Ankle instability 04/07/2016 08/12/2016 Posterior tibial tendonitis 04/07/201607/17 Trigger thumb of right hand 11/04/201507/17 Cramp in muscle 04/15/2015 08/12/2016 Primary insomnia 03/19/2015 08/12/2016 Last Assessment & Plan: Struggling with insomnia Pain in left knee 12/03/2014 08/12/2016 Overview: Patient has left knee pain , that got better with PT. Last Assessment & Plan: She is going for PT and now she feels better. significantly Weakness of left leg 11/04/2014 08/12/2016 Pain in joint, lower leg 02/19/2014 017 Tingling in extremities 10/11/2013 10/07/19 17 Overview: She is having tingling in her left thigh, that comes and goes. Going on for a couple months , but since the last 2 weeks she has been having it all the time. Last Assessment & Plan: She is having tingling in her left thigh, that comes and goes. Going on for a couple months , but since the last 2 weeks she has been having it all the time. Urgency of urination 03/09/2013 07/11/2013 Frequency of urination 03/09/2013 4 Last Assessment & Plan: Urinary incontinence is being followed and evaluated by Dr Vazquez, she is having some urodynamic studies done. i reveiwed Dr. Fernandez notes. Obesity 03/09/2013 10/06/2016 Overview: 04/25/13 BMI 48.43. Normal BMI 18.5-25, normal weight range of 112-150 pounds in a person 5 feet 5 inches tall. Last Assessment & Plan: Gaining weight since she has not been able to exercise due to her surgeries. Nausea 02/09/2013 08/12/2016 Last Assessment & Plan: Patient has some nausea recently, is on macrobid for suspected UTI, when she came in last week. Since all her tests are negative including urine culture.i am discontinuing that SOB (shortness of breath) on exertion 02/09/2013 08/12/2016 Last Assessment & Plan: The patient has SOB which was extensively evaluated, initially it was thought to be from asthma. After seeing the family consumer science teacher and all evaluation complete it was thought to from restriction of the lungs from her weight. She also has sleep apnea, needs oxygen bled into the cpap machine, as the desaturations at night time does not normalize with out bleeding oxygen in. Today we checked her oxygen , the results are below. resting with o2 at 3liters- 91% resting room air o2 sat- 90% activity room air o2 sat- 84% activity with nc at 3liters- 91% Urinary incontinence 02/09/2013 03/28/2013 Last Assessment & Plan: Patient is having the incontinence for a month. She is on vesicare but it does not help her. Prior to this she had some leakage and dribbling but it was never this bad. She has been having a lot of accidents in the last month. She is indeed a very complex patient and i would like to refer her to a Urologist so he can evaluate her bladder dynamics. Schizophrenia 01/04/2013 02/06/2014 Overview: Dr Delaney is her psychologist . Has not seen him for a year. Patient says that the diagnosis of schizophrenia was taken off the diagnosis. Last Assessment & Plan: Patients notes indicates, that she has schizophrenia. Has been on Thorazine, haldol and invega. These drugs gave her tardive dyskinesia. She was put on tetrabenzine for it, worked miracles with her and then she got some parkinson's like features. She couldn't even feed herself. She tried the medication twice. Currently she is not on any psychotic medications. Movement disorder 12/28/2012 08/12/2016 Last Assessment & Plan: Patient is here today, sitting in front of me, very restless, constantly moving her feet, knees, things, neck, in what looks like tardive dyskinesia. It happens 2/3 times a week continues for many hours before she can get Rest from it, she said starting or increasing doses of neurontin, have not made the episodes any worse. She can talk to us without a problem and although she looks very uncomfortable to me she says he is doing fine and this will just pass. She is on requip. And recently started on Gabapentin, we are decreasing her requip. She was on haldol many years ago she says for her depression. She says she has parkinsons and told me she is taking propranolol for it. I thinks she has not got it right. She does not know of any aggravating and relieving factors for these episodes. Wheezing 11/29/2012 08/12/2016 Last Assessment & Plan: Patient is audibly wheezing right now. She recently had asthmatic bronchitis and pneumonia, said she is prone to have it. had a course of levaquin. Steroids and bronchodilators. Schizoaffective disorder 11/15/2012 017 Overview: [facility] according to her. Last Assessment & Plan: [facility], But they changed it according to her. Parkinson disease 11/15/2012 12/03/2017 Overview: [place], [place] I went through a lot of [facility]os [facility]. he does not seem to think she has parkinson's. She had drug induced parkinson's like symptoms that resolved when she stopped taking the inciting medications. Last Assessment & Plan: She will send me a note from him of his latest assessment. documented as of this encounter (statuses as of 06/15/2022) [facility] History of Past illness Narrative* Problem Noted Date Resolved Date Post-operative pain 07/10/2016 08/12/2016 Hypomagnesemia 07/10/2016 07/10/2016 Full incontinence of feces 07/08/201607/10 Ankle instability 04/07/2016 08/12/2016 Posterior tibial tendonitis 04/07/201607/17 Trigger thumb of right hand 11/04/201507/17 Cramp in muscle 04/15/2015 08/12/2016 Primary insomnia 03/19/2015 08/12/2016 Last Assessment & Plan: Struggling with insomnia Pain in left knee 12/03/2014 08/12/2016 Overview: Patient has left knee pain , that got better with PT. Last Assessment & Plan: She is going for PT and now she feels better. significantly Weakness of left leg 11/04/2014 08/12/2016 Pain in joint, lower leg 02/19/2014 017 Tingling in extremities 10/11/2013 10/07/19 17 Overview: She is having tingling in her left thigh, that comes and goes. Going on for a couple months , but since the last 2 weeks she has been having it all the time. Last Assessment & Plan: She is having tingling in her left thigh, that comes and goes. Going on for a couple months , but since the last 2 weeks she has been having it all the time. Urgency of urination 03/09/2013 07/11/2013 Frequency of urination 03/09/2013 4 Last Assessment & Plan: Urinary incontinence is being followed and evaluated by Dr Vazquez, she is having some urodynamic studies done. i reveiwed Dr. Fernandez notes. Obesity 03/09/2013 10/06/2016 Overview: 04/25/13 BMI 48.43. Normal BMI 18.5-25, normal weight range of 112-150 pounds in a person 5 feet 5 inches tall. Last Assessment & Plan: Gaining weight since she has not been able to exercise due to her surgeries. Nausea 02/09/2013 08/12/2016 Last Assessment & Plan: Patient has some nausea recently, is on macrobid for suspected UTI, when she came in last week. Since all her tests are negative including urine culture.i am discontinuing that SOB (shortness of breath) on exertion 02/09/2013 08/12/2016 Last Assessment & Plan: The patient has SOB which was extensively evaluated, initially it was thought to be from asthma. After seeing the family consumer science teacher and all evaluation complete it was thought to from restriction of the lungs from her weight. She also has sleep apnea, needs oxygen bled into the cpap machine, as the desaturations at night time does not normalize with out bleeding oxygen in. Today we checked her oxygen , the results are below. resting with o2 at 3liters- 91% resting room air o2 sat- 90% activity room air o2 sat- 84% activity with nc at 3liters- 91% Urinary incontinence 02/09/2013 03/28/2013 Last Assessment & Plan: Patient is having the incontinence for a month. She is on vesicare but it does not help her. Prior to this she had some leakage and dribbling but it was never this bad. She has been having a lot of accidents in the last month. She is indeed a very complex patient and i would like to refer her to a Urologist so he can evaluate her bladder dynamics. Schizophrenia 01/04/2013 02/06/2014 Overview: Dr Delaney is her psychologist . Has not seen him for a year. Patient says that the diagnosis of schizophrenia was taken off the diagnosis. Last Assessment & Plan: Patients notes indicates, that she has schizophrenia. Has been on Thorazine, haldol and invega. These drugs gave her tardive dyskinesia. She was put on tetrabenzine for it, worked miracles with her and then she got some parkinson's like features. She couldn't even feed herself. She tried the medication twice. Currently she is not on any psychotic medications. Movement disorder 12/28/2012 08/12/2016 Last Assessment & Plan: Patient is here today, sitting in front of me, very restless, constantly moving her feet, knees, things, neck, in what looks like tardive dyskinesia. It happens 2/3 times a week continues for many hours before she can get Rest from it, she said starting or increasing doses of neurontin, have not made the episodes any worse. She can talk to us without a problem and although she looks very uncomfortable to me she says he is doing fine and this will just pass. She is on requip. And recently started on Gabapentin, we are decreasing her requip. She was on haldol many years ago she says for her depression. She says she has parkinsons and told me she is taking propranolol for it. I thinks she has not got it right. She does not know of any aggravating and relieving factors for these episodes. Wheezing 11/29/2012 08/12/2016 Last Assessment & Plan: Patient is audibly wheezing right now. She recently had asthmatic bronchitis and pneumonia, said she is prone to have it. had a course of levaquin. Steroids and bronchodilators. Schizoaffective disorder 11/15/2012 017 Overview: [facility] it according to her. Last Assessment & Plan: [facility], But they changed it according to her. Parkinson disease 11/15/2012 12/03/2017 Overview: [place], [place] I went through a lot of DR. Cevallos notes from [facility]. he does not seem to think she has parkinson's. She had drug induced parkinson's like symptoms that resolved when she stopped taking the inciting medications. Last Assessment & Plan: She will send me a note from him of his latest assessment. documented as of this encounter (statuses as of 06/17/2022) [facility] note* Diagnosis Pre-operative exam Preoperative examination, unspecified Type 2 diabetes mellitus without complication, unspecified whether terminal block assembler insulin use (HCC) Morbid obesity due to excess calories (HCC) documented in this encounter [facility] Work Phone: Evaluation note* Diagnosis Obesity, Class III, BMI >= 40 (morbid obesity) ([facility]) E66.01- Primary Morbid obesity Diabetes mellitus type 2 (HCC) Hyperlipidemia with target LDL less than 70 Other and unspecified hyperlipidemia ARIANA (obstructive sleep apnea) Obstructive sleep apnea (adult) (pediatric) documented in this encounter [facility] note* Diagnosis Diabetes mellitus type 2 (HCC)- Primary S/P gastric bypass Bariatric surgery status Hyperlipidemia with target LDL less than 70 Other and unspecified hyperlipidemia [facility] Diagnosis Uncontrolled type 2 diabetes mellitus with hyperglycemia (HCC) [facility] Diagnosis Neuropathy- Primary Mononeuritis of unspecified site Uncontrolled type 2 diabetes mellitus with hyperglycemia (HCC) Type 2 diabetes mellitus without complication, with long-term current use of insulin (HCC) [facility] Diagnosis Uncontrolled type 2 diabetes mellitus with hyperglycemia (HCC)- Primary [facility]* Diagnosis Cough Rhinorrhea Other diseases of nasal cavity and sinuses Insomnia, unspecified type [facility] Diagnosis Uncontrolled type 2 diabetes mellitus with hyperglycemia (HCC) [facility] Diagnosis Diabetes mellitus type 2 (HCC) [facility] Diagnosis Uncontrolled type 2 diabetes mellitus with hyperglycemia (HCC) [facility] Diagnosis Neuropathy Mononeuritis of unspecified site [facility] Diagnosis Sleep apnea, unspecified type- Primary S/P bariatric surgery Bariatric surgery status Diabetes mellitus type 2 (HCC) [facility]* Diagnosis Patient left without being seen- Primary Surgical or other procedure not carried out because of patient's decision [facility] Diagnosis Insomnia, unspecified type [facility] Diagnosis Left knee pain, unspecified chronicity- Primary [facility] Diagnosis Left knee pain, unspecified chronicity [facility] Diagnosis Primary osteoarthritis of left knee- Primary Primary localized osteoarthrosis, lower leg Obesity, Class III, BMI >= 40 (morbid obesity) ([facility]) E66.01 Morbid obesity Chronic pain of left knee Pain in joint, lower leg Primary osteoarthritis of left knee Primary localized osteoarthrosis, lower leg [facility] Diagnosis Uncontrolled type 2 diabetes mellitus with hyperglycemia (HCC) Chronic pain of left knee Pain in joint, lower leg Primary osteoarthritis of left knee Primary localized osteoarthrosis, lower leg [facility] Diagnosis Neuropathy Mononeuritis of unspecified site Chronic pain of left knee Pain in joint, lower leg Primary osteoarthritis of left knee Primary localized osteoarthrosis, lower leg [facility] Diagnosis Neuropathy Mononeuritis of unspecified site Chronic pain of left knee Pain in joint, lower leg Primary osteoarthritis of left knee Primary localized osteoarthrosis, lower leg [facility] Diagnosis Uncontrolled type 2 diabetes mellitus with hyperglycemia ([facility]) Chronic pain of left knee Pain in joint, lower leg Primary osteoarthritis of left knee Primary localized osteoarthrosis, lower leg [facility]* Diagnosis Pre-operative examination- Primary Preoperative examination, unspecified Diabetes mellitus type 2 ([facility]) History of implantation of artificial sphincter Hyperlipidemia with target LDL less than 70 Other and unspecified hyperlipidemia Hypertonicity of bladder Incontinence of feces, unspecified fecal incontinence type ARIANA (obstructive sleep apnea) Obstructive sleep apnea (adult) (pediatric) Tardive dyskinesia Subacute dyskinesia due to drugs Obesity, Class III, BMI >= 40 (morbid obesity) ([facility]) E66.01 Morbid obesity S/P gastric sleeve procedure Gastroesophageal reflux disease, unspecified whether esophagitis present Swelling Edema PTSD (post-traumatic stress disorder) Posttraumatic stress disorder Chronic pain of left knee Pain in joint, lower leg Primary osteoarthritis of left knee Primary localized osteoarthrosis, lower leg [facility]* Diagnosis Pre-op exam Preoperative examination, unspecified Chronic pain of left knee Pain in joint, lower leg Primary osteoarthritis of left knee Primary localized osteoarthrosis, lower leg [facility] Diagnosis Cough Rhinorrhea Other diseases of nasal cavity and sinuses Chronic pain of left knee Pain in joint, lower leg Primary osteoarthritis of left knee Primary localized osteoarthrosis, lower leg [facility] Depression with anxiety Dysthymic disorder Chronic pain of left knee Pain in joint, lower leg Primary osteoarthritis of left knee Primary localized osteoarthrosis, lower leg [facility] Diagnosis Depression with anxiety Dysthymic disorder [facility] Diagnosis Primary osteoarthritis of left knee- Primary Primary localized osteoarthrosis, lower leg [facility] Diagnosis S/P total knee arthroplasty, left [facility] Diagnosis Primary osteoarthritis of left knee- Primary Primary localized osteoarthrosis, lower leg S/P total knee arthroplasty, left [facility]* Diagnosis Other intra-abdominal and pelvic swelling, mass and lump- Primary [facility]* Diagnosis Uncontrolled type 2 diabetes mellitus with hyperglycemia (HCC) [facility]* Diagnosis S/P total knee arthroplasty, left [facility] Diagnosis Other intra-abdominal and pelvic swelling, mass and lump [facility] Diagnosis Primary osteoarthritis of left knee- Primary Primary localized osteoarthrosis, lower leg [facility]* Diagnosis Insomnia, unspecified type [facility] Diagnosis Primary osteoarthritis of left knee- Primary Primary localized osteoarthrosis, lower leg [facility]* Diagnosis S/P total knee arthroplasty, left [facility] Diagnosis Hyperlipidemia with target LDL less than 70 Other and unspecified hyperlipidemia [facility]* Diagnosis Primary osteoarthritis of left knee- Primary Primary localized osteoarthrosis, lower leg [facility]* Diagnosis S/P total knee arthroplasty, left [facility]* Diagnosis Diabetes mellitus type 2 (HCC)- Primary Hyperlipidemia with target LDL less than 70 Other and unspecified hyperlipidemia ARIANA (obstructive sleep apnea) Obstructive sleep apnea (adult) (pediatric) Adnexal cyst Other specified symptom associated with female genital organs [facility]* Diagnosis Primary osteoarthritis of left knee- Primary Primary localized osteoarthrosis, lower leg [facility] Diagnosis Cyst of right ovary- Primary Other and unspecified ovarian cyst [facility]* Diagnosis Uncontrolled type 2 diabetes mellitus with hyperglycemia (HCC)- Primary [facility] Diagnosis Uncontrolled type 2 diabetes mellitus with hyperglycemia (HCC)- Primary [facility]* Diagnosis Primary osteoarthritis of left knee- Primary Primary localized osteoarthrosis, lower leg [facility] Diagnosis Primary osteoarthritis of left knee- Primary Primary localized osteoarthrosis, lower leg [facility]* Diagnosis S/P total knee arthroplasty, left- Primary [facility]* Diagnosis Primary osteoarthritis of left knee- Primary Primary localized osteoarthrosis, lower leg documented in this encounter [facility] note* Diagnosis Primary osteoarthritis of left knee- Primary Primary localized osteoarthrosis, lower leg [facility]* Diagnosis Primary osteoarthritis of left knee- Primary Primary localized osteoarthrosis, lower leg [facility]* Diagnosis Primary osteoarthritis of left knee- Primary Primary localized osteoarthrosis, lower leg [facility]* Diagnosis S/P total knee arthroplasty, left- Primary Fibrosis of left knee joint documented in this encounter [facility] note* Diagnosis Uncontrolled type 2 diabetes mellitus with hyperglycemia (HCC) Fibrosis of knee joint, left documented in this encounter [facility] note* Diagnosis Fibrosis of knee joint, left- Primary Fibrosis of knee joint, left [facility]* Diagnosis Pre-operative examination- Primary Preoperative examination, unspecified Diabetes mellitus type 2 (HCC) Tardive dyskinesia Subacute dyskinesia due to drugs Swelling Edema S/P gastric sleeve procedure RLS (restless legs syndrome) Restless legs syndrome (RLS) PTSD (post-traumatic stress disorder) Posttraumatic stress disorder Primary osteoarthritis of left knee Primary localized osteoarthrosis, lower leg ARIANA (obstructive sleep apnea) Obstructive sleep apnea (adult) (pediatric) Incontinence of feces, unspecified fecal incontinence type Hypertonicity of bladder Hyperlipidemia with target LDL less than 70 Other and unspecified hyperlipidemia Gastroesophageal reflux disease, unspecified whether esophagitis present Fibrosis of knee joint, left documented in this encounter [facility] note* Diagnosis Primary osteoarthritis of left knee- Primary Primary localized osteoarthrosis, lower leg Fibrosis of knee joint, left documented in this encounter [facility] note* Diagnosis Fibrosis of knee joint, left- Primary S/P total knee arthroplasty, left documented in this encounter [facility] note* Diagnosis Uncontrolled type 2 diabetes mellitus with hyperglycemia (HCC)- Primary [facility]* Diagnosis Vertigo- Primary Dizziness and giddiness documented in this encounter [facility] noteNo assessment information availableWUniversity [facility] Work Phone: Evaluation note* Diagnosis Insomnia, unspecified type Uncontrolled type 2 diabetes mellitus with hyperglycemia (HCC) Cough Rhinorrhea Other diseases of nasal cavity and sinuses documented in this encounter [facility] note* Diagnosis Nocturnal hypoxia- Primary Hypoxemia documented in this encounter [facility] note* Diagnosis Uncontrolled type 2 diabetes mellitus with hyperglycemia (HCC)- Primary documented in this encounter [facility] note* Diagnosis Nocturnal hypoxemia- Primary Hypoxemia SOB (shortness of breath) Shortness of breath Class 2 obesity due to excess calories with body mass index (BMI) of 36.0 to 36.9 in adult, unspecified whether serious comorbidity present documented in this encounter [facility] note* Diagnosis Diabetes mellitus type 2 (HCC)- Primary S/P gastric sleeve procedure Chronic diarrhea Diarrhea Insomnia, unspecified type ARIANA (obstructive sleep apnea) Obstructive sleep apnea (adult) (pediatric) Breast cancer screening by mammogram documented in this encounter [facility] note* Diagnosis Uncontrolled type 2 diabetes mellitus with hyperglycemia (HCC)- Primary documented in this encounter [facility] note* Diagnosis Depression with anxiety Dysthymic disorder documented in this encounter [facility] note* Diagnosis Uncontrolled type 2 diabetes mellitus with hyperglycemia (HCC)- Primary documented in this encounter [facility] note* Diagnosis Uncontrolled type 2 diabetes mellitus with hyperglycemia (HCC) documented in this encounter [facility] note* Diagnosis Uncontrolled type 2 diabetes mellitus with hyperglycemia (HCC)- Primary documented in this encounter [facility] note* Diagnosis Uncontrolled type 2 diabetes mellitus with hyperglycemia (HCC)- Primary documented in this encounter [facility] note* Diagnosis Uncontrolled type 2 diabetes mellitus with hyperglycemia (HCC) Insomnia, unspecified type documented in this encounter [facility] note* Diagnosis Diabetes mellitus type 2 (HCC)- Primary documented in this encounter [facility] note* Diagnosis ARIANA (obstructive sleep apnea)- Primary Obstructive sleep apnea (adult) (pediatric) Type 2 diabetes mellitus without complication, unspecified whether fci insulin use (HCC) Intestinal malabsorption, unspecified type Deficiency of multiple nutrient elements Other nutritional deficiency High cholesterol Pure hypercholesterolemia Class 1 obesity due to excess calories with serious comorbidity and body mass index (BMI) of 34.0 to 34.9 in adult documented in this encounter [facility] note* Diagnosis Cough Rhinorrhea Other diseases of nasal cavity and sinuses [facility]* Diagnosis Diabetes mellitus type 2 (HCC)- Primary Chronic diarrhea Diarrhea Other fatigue [facility]* Diagnosis Cyst of right ovary Other and unspecified ovarian cyst [facility] Diagnosis Ovarian cyst, right- Primary Other and unspecified ovarian cyst [facility]* Diagnosis Insomnia, unspecified type [facility]* Diagnosis Diabetes mellitus type 2 (HCC) [facility] Diagnosis S/P ovarian cystectomy- Primary Other postprocedural status [facility] Diagnosis Diabetes mellitus type 2 (HCC)- Primary [facility]* Diagnosis Diabetes mellitus type 2 (HCC)- Primary [facility]* Diagnosis Nocturnal hypoxemia Hypoxemia [facility] Diagnosis Nocturnal hypoxemia Hypoxemia [facility] Diagnosis Sleep-disordered breathing- Primary Other sleep disturbances Nocturnal hypoxemia Hypoxemia Parkinson's disease (HCC) Paralysis agitans [facility] Diagnosis Uncontrolled type 2 diabetes mellitus with hyperglycemia (HCC) [facility] Diagnosis Cough Rhinorrhea Other diseases of nasal cavity and sinuses Depression with anxiety Dysthymic disorder [facility] Diagnosis Elevated liver enzymes- Primary Other nonspecific abnormal serum enzyme levels Diabetes mellitus type 2 (HCC) [facility] Diagnosis Diabetes mellitus type 2 (HCC)- Primary Tardive dyskinesia Subacute dyskinesia due to drugs RLS (restless legs syndrome) Restless legs syndrome (RLS) Parkinson's disease (HCC) Paralysis agitans Elevated liver enzymes Other nonspecific abnormal serum enzyme levels Irritable bowel syndrome with diarrhea Irritable bowel syndrome Depression with anxiety Dysthymic disorder Sleep-disordered breathing Other sleep disturbances [facility] Diagnosis Insomnia, unspecified type [facility] Diagnosis Elevated liver enzymes- Primary Other nonspecific abnormal serum enzyme levels Fatty liver Other chronic nonalcoholic liver disease [facility] Diagnosis Elevated liver enzymes- Primary Other nonspecific abnormal serum enzyme levels Fatty liver Other chronic nonalcoholic liver disease [facility]* Diagnosis Neuropathy Mononeuritis of unspecified site documented in this encounter [facility] note* Diagnosis Deficiency of multiple nutrient elements- Primary Other nutritional deficiency History of gastric bypass Vitamin deficiency Unspecified vitamin deficiency Intestinal malabsorption, unspecified type Type 2 diabetes mellitus without complication, with long-term current use of insulin ([facility]/HCC) (HCC) BMI 32.0-32.9,adult Class 1 obesity with serious comorbidity and body mass index (BMI) of 32.0 to 32.9 in adult, unspecified obesity type Abnormal zinc level in blood Low serum total protein level documented in this encounter [facility] note* Diagnosis Elevated liver enzymes Other nonspecific abnormal serum enzyme levels documented in this encounter [facility] note* Diagnosis Breast cancer screening by mammogram documented in this encounter [facility] note* Diagnosis Uncontrolled type 2 diabetes mellitus with hyperglycemia (HCC) documented in this encounter [facility] note* Diagnosis Diabetes mellitus type 2 (HCC)- Primary Bone anomaly Acquired musculoskeletal deformity of unspecified site Parkinson's disease, unspecified whether dyskinesia present, unspecified whether manifestations fluctuate documented in this encounter [facility] note* Diagnosis Cough Rhinorrhea Other diseases of nasal cavity and sinuses Insomnia, unspecified type documented in this encounter [facility] note* Diagnosis Diabetes mellitus type 2 (HCC)- Primary Uncontrolled type 2 diabetes mellitus with hyperglycemia (HCC) [facility]* Diagnosis Insomnia, unspecified type documented in this encounter [facility] note* Diagnosis Depression with anxiety- Primary Dysthymic disorder Parkinson's disease, unspecified whether dyskinesia present, unspecified whether manifestations fluctuate (HCC) Diabetes mellitus type 2 (HCC) Encounter for screening mammogram for malignant neoplasm of breast Other screening mammogram Pain of left upper extremity [facility]* Diagnosis Encounter for screening mammogram for malignant neoplasm of breast Other screening mammogram [facility]* Diagnosis Nocturnal hypoxemia- Primary Hypoxemia Restrictive lung disease Other diseases of lung, not elsewhere classified documented in this encounter [facility] note* Diagnosis Cough Rhinorrhea Other diseases of nasal cavity and sinuses documented in this encounter [facility] note* Diagnosis Neuropathy Mononeuritis of unspecified site [facility] Insomnia, unspecified type [facility]* Diagnosis Chronic left shoulder pain- Primary Pain in joint, shoulder region Diabetes mellitus type 2 (HCC) Parkinson's disease, unspecified whether dyskinesia present, unspecified whether manifestations fluctuate ([facility]) Insomnia, unspecified type ARIANA (obstructive sleep apnea) Obstructive sleep apnea (adult) (pediatric) Hyperlipidemia with target LDL less than 70 Other and unspecified hyperlipidemia Depression with anxiety Dysthymic disorder [facility] Diagnosis Cough Rhinorrhea Other diseases of nasal cavity and sinuses [facility] Diagnosis Uncontrolled type 2 diabetes mellitus with hyperglycemia ([facility]) [facility] Diagnosis Insomnia, unspecified type [facility] Diagnosis Wheezing- Primary Tardive dyskinesia Subacute dyskinesia due to drugs Low O2 saturation Abnormal arterial blood gases 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 Low oxygen saturation Abnormal arterial blood gases Parkinson disease ([facility])- Primary Paralysis agitans Schizophrenia ([facility]) Unspecified schizophrenia, unspecified condition Tardive dyskinesia Subacute dyskinesia due to drugs Low oxygen saturation Abnormal arterial blood gases Type II or unspecified type diabetes mellitus without mention of complication, uncontrolled Hyperlipidemia LDL goal < 70 Other and unspecified hyperlipidemia Nausea- Primary Nausea alone Type II or unspecified type diabetes mellitus without mention of complication, uncontrolled SOB (shortness of breath) on exertion Shortness of breath Urinary incontinence Unspecified urinary incontinence RLS (restless legs syndrome) Restless legs syndrome (RLS) Hypomagnesemia Disorders of magnesium metabolism Vitamin D deficiency Unspecified vitamin D deficiency Iron deficiency Iron deficiency anemia, unspecified Diabetes 1.5, 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HCC) Type II or unspecified type diabetes mellitus without mention of complication, not stated as uncontrolled SOB (shortness of breath) on exertion- Primary Shortness of breath ARIANA (obstructive sleep apnea) Obstructive sleep apnea (adult) (pediatric) Type II or unspecified type diabetes mellitus without mention of complication, uncontrolled Type II or unspecified type diabetes mellitus without mention of complication, uncontrolled- Primary ARIANA (obstructive sleep apnea) Obstructive sleep apnea (adult) (pediatric) Low oxygen saturation Abnormal arterial blood gases Obesity Obesity, unspecified Frequency of urination Urinary frequency Type II or unspecified type diabetes mellitus without mention of complication, uncontrolled- Primary Hyperlipidemia LDL goal < 70 Other and unspecified hyperlipidemia ARIANA (obstructive sleep apnea) Obstructive sleep apnea (adult) (pediatric) IBS (irritable bowel syndrome) Irritable bowel syndrome SOB (shortness of breath) on exertion Shortness of breath Parkinson disease (HCC) Paralysis agitans Obesity Obesity, unspecified Obesity- Primary Obesity, unspecified Cataracts, bilateral Unspecified cataract Low oxygen saturation Abnormal arterial blood gases Type II or unspecified type diabetes mellitus without mention of complication, uncontrolled Hyperlipidemia LDL goal < 70 Other and unspecified hyperlipidemia Hyperlipidemia LDL goal < 70- Primary Other and unspecified hyperlipidemia Type II or unspecified type diabetes mellitus without mention of complication, uncontrolled Tingling in extremities Disturbance of skin sensation Pain in limb Vitamin D deficiency Unspecified vitamin D deficiency Type II or unspecified type diabetes mellitus without mention of complication, uncontrolled- Primary Hyperlipidemia LDL goal < 70 Other and unspecified hyperlipidemia Pedal edema Edema Obesity Obesity, unspecified IBS (irritable bowel syndrome) Irritable bowel syndrome Hypertonicity of bladder Type II or unspecified type diabetes mellitus without mention of complication, uncontrolled- Primary Obesity Obesity, unspecified IBS (irritable bowel syndrome) Irritable bowel syndrome SOB (shortness of breath) on exertion Shortness of breath Hypertonicity of bladder Routine health maintenance Routine general medical examination at a health care facility Low oxygen saturation Abnormal arterial blood gases Low oxygen saturation- Primary Abnormal arterial blood gases ARIANA (obstructive sleep apnea) Obstructive sleep apnea (adult) (pediatric) Type II or unspecified type diabetes mellitus without mention of complication, uncontrolled Numbness and tingling in hands Disturbance of skin sensation Depression Depressive disorder, not elsewhere classified SOB (shortness of breath) on exertion- Primary Shortness of breath ARIANA (obstructive sleep apnea) Obstructive sleep apnea (adult) (pediatric) Type II or unspecified type diabetes mellitus without mention of complication, uncontrolled Obesity Obesity, unspecified Oxygen dependent Dependence on supplemental oxygen Vitamin D deficiency- Primary Unspecified vitamin D deficiency Type II or unspecified type diabetes mellitus without mention of complication, uncontrolled Low oxygen saturation Abnormal arterial blood gases Obesity Obesity, unspecified Pain in left knee- Primary Pain in joint, lower leg Morbid obesity, unspecified obesity type (HCC) Diabetes mellitus type 2, uncontrolled Type II or unspecified type diabetes mellitus without mention of complication, uncontrolled Tardive dyskinesia- Primary Subacute dyskinesia due to drugs Benign paroxysmal positional vertigo, unspecified laterality Diabetes mellitus type 2, uncontrolled Type II or unspecified type diabetes mellitus without mention of complication, uncontrolled ARIANA (obstructive sleep apnea) Obstructive sleep apnea (adult) (pediatric) Morbid obesity, unspecified obesity type ([facility]) Vaginal dryness Other specified symptom associated with female genital organs Diabetes mellitus type 2, uncontrolled- Primary Type II or unspecified type diabetes mellitus without mention of complication, uncontrolled Hyperlipidemia with target LDL less than 70 Other and unspecified hyperlipidemia Tardive dyskinesia Subacute dyskinesia due to drugs Primary insomnia Persistent disorder of initiating or maintaining sleep Incontinence of feces, unspecified fecal incontinence type- Primary Uncontrolled type 2 diabetes mellitus without complication, with long-term current use of insulin Class 2 obesity without serious comorbidity with body mass index (BMI) of 35.0 to 35.9 in adult, unspecified obesity type Tardive dyskinesia Subacute dyskinesia due to drugs RLS (restless legs syndrome) Restless legs syndrome (RLS) Hyperlipidemia with target LDL less than 70 Other and unspecified hyperlipidemia Pre-operative examination- Primary Preoperative examination, unspecified Chronic pain of left knee Pain in joint, lower leg Diabetes mellitus type 2 ([facility]) History of implantation of artificial sphincter Hyperlipidemia with target LDL less than 70 Other and unspecified hyperlipidemia Hypertonicity of bladder Incontinence of feces, unspecified fecal incontinence type ARIANA (obstructive sleep apnea) Obstructive sleep apnea (adult) (pediatric) Tardive dyskinesia Subacute dyskinesia due to drugs Obesity, Class III, BMI >= 40 (morbid obesity) ([facility]) E66.01 Morbid obesity S/P gastric sleeve procedure Gastroesophageal reflux disease, unspecified whether esophagitis present Swelling Edema PTSD (post-traumatic stress disorder) Posttraumatic stress disorder Pre-operative examination- Primary Preoperative examination, unspecified Diabetes mellitus type 2 ([facility]) Tardive dyskinesia Subacute dyskinesia due to drugs Swelling Edema S/P gastric sleeve procedure RLS (restless legs syndrome) Restless legs syndrome (RLS) PTSD (post-traumatic stress disorder) Posttraumatic stress disorder Primary osteoarthritis of left knee Primary localized osteoarthrosis, lower leg ARIANA (obstructive sleep apnea) Obstructive sleep apnea (adult) (pediatric) Incontinence of feces, unspecified fecal incontinence type Hypertonicity of bladder Hyperlipidemia with target LDL less than 70 Other and unspecified hyperlipidemia Gastroesophageal reflux disease, unspecified whether esophagitis present Shoulder impingement- Primary Other affections of shoulder region, not elsewhere classified Chronic left shoulder pain Pain in joint, shoulder region [facility] Diagnosis Wheezing- Primary Tardive dyskinesia Subacute dyskinesia due to drugs Low O2 saturation Abnormal arterial blood gases 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 Low oxygen saturation Abnormal arterial blood gases Parkinson disease (HCC)- Primary Paralysis agitans Schizophrenia (HCC) Unspecified schizophrenia, unspecified condition Tardive dyskinesia Subacute dyskinesia due to drugs Low oxygen saturation Abnormal arterial blood gases Type II or unspecified type diabetes mellitus without mention of complication, uncontrolled Hyperlipidemia LDL goal < 70 Other and unspecified hyperlipidemia Nausea- Primary Nausea alone Type II or unspecified type diabetes mellitus without mention of complication, uncontrolled SOB (shortness of breath) on exertion Shortness of breath Urinary incontinence Unspecified urinary incontinence RLS (restless legs syndrome) Restless legs syndrome (RLS) Hypomagnesemia Disorders of magnesium metabolism Vitamin D deficiency Unspecified vitamin D deficiency Iron deficiency Iron deficiency anemia, unspecified Diabetes 1.5, 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HCC) Type II or unspecified type diabetes mellitus without mention of complication, not stated as uncontrolled SOB (shortness of breath) on exertion- Primary Shortness of breath ARIANA (obstructive sleep apnea) Obstructive sleep apnea (adult) (pediatric) Type II or unspecified type diabetes mellitus without mention of complication, uncontrolled Type II or unspecified type diabetes mellitus without mention of complication, uncontrolled- Primary ARIANA (obstructive sleep apnea) Obstructive sleep apnea (adult) (pediatric) Low oxygen saturation Abnormal arterial blood gases Obesity Obesity, unspecified Frequency of urination Urinary frequency Type II or unspecified type diabetes mellitus without mention of complication, uncontrolled- Primary Hyperlipidemia LDL goal < 70 Other and unspecified hyperlipidemia ARIANA (obstructive sleep apnea) Obstructive sleep apnea (adult) (pediatric) IBS (irritable bowel syndrome) Irritable bowel syndrome SOB (shortness of breath) on exertion Shortness of breath Parkinson disease (HCC) Paralysis agitans Obesity Obesity, unspecified Obesity- Primary Obesity, unspecified Cataracts, bilateral Unspecified cataract Low oxygen saturation Abnormal arterial blood gases Type II or unspecified type diabetes mellitus without mention of complication, uncontrolled Hyperlipidemia LDL goal < 70 Other and unspecified hyperlipidemia Hyperlipidemia LDL goal < 70- Primary Other and unspecified hyperlipidemia Type II or unspecified type diabetes mellitus without mention of complication, uncontrolled Tingling in extremities Disturbance of skin sensation Pain in limb Vitamin D deficiency Unspecified vitamin D deficiency Type II or unspecified type diabetes mellitus without mention of complication, uncontrolled- Primary Hyperlipidemia LDL goal < 70 Other and unspecified hyperlipidemia Pedal edema Edema Obesity Obesity, unspecified IBS (irritable bowel syndrome) Irritable bowel syndrome Hypertonicity of bladder Type II or unspecified type diabetes mellitus without mention of complication, uncontrolled- Primary Obesity Obesity, unspecified IBS (irritable bowel syndrome) Irritable bowel syndrome SOB (shortness of breath) on exertion Shortness of breath Hypertonicity of bladder Routine health maintenance Routine general medical examination at a health care facility Low oxygen saturation Abnormal arterial blood gases Low oxygen saturation- Primary Abnormal arterial blood gases ARIANA (obstructive sleep apnea) Obstructive sleep apnea (adult) (pediatric) Type II or unspecified type diabetes mellitus without mention of complication, uncontrolled Numbness and tingling in hands Disturbance of skin sensation Depression Depressive disorder, not elsewhere classified SOB (shortness of breath) on exertion- Primary Shortness of breath ARIANA (obstructive sleep apnea) Obstructive sleep apnea (adult) (pediatric) Type II or unspecified type diabetes mellitus without mention of complication, uncontrolled Obesity Obesity, unspecified Oxygen dependent Dependence on supplemental oxygen Vitamin D deficiency- Primary Unspecified vitamin D deficiency Type II or unspecified type diabetes mellitus without mention of complication, uncontrolled Low oxygen saturation Abnormal arterial blood gases Obesity Obesity, unspecified Pain in left knee- Primary Pain in joint, lower leg Morbid obesity, unspecified obesity type (HCC) Diabetes mellitus type 2, uncontrolled Type II or unspecified type diabetes mellitus without mention of complication, uncontrolled Tardive dyskinesia- Primary Subacute dyskinesia due to drugs Benign paroxysmal positional vertigo, unspecified laterality Diabetes mellitus type 2, uncontrolled Type II or unspecified type diabetes mellitus without mention of complication, uncontrolled ARIANA (obstructive sleep apnea) Obstructive sleep apnea (adult) (pediatric) Morbid obesity, unspecified obesity type (HCC) Vaginal dryness Other specified symptom associated with female genital organs Diabetes mellitus type 2, uncontrolled- Primary Type II or unspecified type diabetes mellitus without mention of complication, uncontrolled Hyperlipidemia with target LDL less than 70 Other and unspecified hyperlipidemia Tardive dyskinesia Subacute dyskinesia due to drugs Primary insomnia Persistent disorder of initiating or maintaining sleep Incontinence of feces, unspecified fecal incontinence type- Primary Uncontrolled type 2 diabetes mellitus without complication, with long-term current use of insulin Class 2 obesity without serious comorbidity with body mass index (BMI) of 35.0 to 35.9 in adult, unspecified obesity type Tardive dyskinesia Subacute dyskinesia due to drugs RLS (restless legs syndrome) Restless legs syndrome (RLS) Hyperlipidemia with target LDL less than 70 Other and unspecified hyperlipidemia Pre-operative examination- Primary Preoperative examination, unspecified Chronic pain of left knee Pain in joint, lower leg Diabetes mellitus type 2 ([facility]) History of implantation of artificial sphincter Hyperlipidemia with target LDL less than 70 Other and unspecified hyperlipidemia Hypertonicity of bladder Incontinence of feces, unspecified fecal incontinence type ARIANA (obstructive sleep apnea) Obstructive sleep apnea (adult) (pediatric) Tardive dyskinesia Subacute dyskinesia due to drugs Obesity, Class III, BMI >= 40 (morbid obesity) ([facility]) E66.01 Morbid obesity S/P gastric sleeve procedure Gastroesophageal reflux disease, unspecified whether esophagitis present Swelling Edema PTSD (post-traumatic stress disorder) Posttraumatic stress disorder Pre-operative examination- Primary Preoperative examination, unspecified Diabetes mellitus type 2 ([facility]) Tardive dyskinesia Subacute dyskinesia due to drugs Swelling Edema S/P gastric sleeve procedure RLS (restless legs syndrome) Restless legs syndrome (RLS) PTSD (post-traumatic stress disorder) Posttraumatic stress disorder Primary osteoarthritis of left knee Primary localized osteoarthrosis, lower leg ARIANA (obstructive sleep apnea) Obstructive sleep apnea (adult) (pediatric) Incontinence of feces, unspecified fecal incontinence type Hypertonicity of bladder Hyperlipidemia with target LDL less than 70 Other and unspecified hyperlipidemia Gastroesophageal reflux disease, unspecified whether esophagitis present Chronic left shoulder pain Pain in joint, shoulder region [facility] Diagnosis Wheezing- Primary Tardive dyskinesia Subacute dyskinesia due to drugs Low O2 saturation Abnormal arterial blood gases 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 Low oxygen saturation Abnormal arterial blood gases Parkinson disease ([facility])- Primary Paralysis agitans Schizophrenia ([facility]) Unspecified schizophrenia, unspecified condition Tardive dyskinesia Subacute dyskinesia due to drugs Low oxygen saturation Abnormal arterial blood gases Type II or unspecified type diabetes mellitus without mention of complication, uncontrolled Hyperlipidemia LDL goal < 70 Other and unspecified hyperlipidemia Nausea- Primary Nausea alone Type II or unspecified type diabetes mellitus without mention of complication, uncontrolled SOB (shortness of breath) on exertion Shortness of breath Urinary incontinence Unspecified urinary incontinence RLS (restless legs syndrome) Restless legs syndrome (RLS) Hypomagnesemia Disorders of magnesium metabolism Vitamin D deficiency Unspecified vitamin D deficiency Iron deficiency Iron deficiency anemia, unspecified Diabetes 1.5, 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[facility]) Type II or unspecified type diabetes mellitus without mention of complication, not stated as uncontrolled SOB (shortness of breath) on exertion- Primary Shortness of breath ARIANA (obstructive sleep apnea) Obstructive sleep apnea (adult) (pediatric) Type II or unspecified type diabetes mellitus without mention of complication, uncontrolled Type II or unspecified type diabetes mellitus without mention of complication, uncontrolled- Primary ARIANA (obstructive sleep apnea) Obstructive sleep apnea (adult) (pediatric) Low oxygen saturation Abnormal arterial blood gases Obesity Obesity, unspecified Frequency of urination Urinary frequency Type II or unspecified type diabetes mellitus without mention of complication, uncontrolled- Primary Hyperlipidemia LDL goal < 70 Other and unspecified hyperlipidemia ARIANA (obstructive sleep apnea) Obstructive sleep apnea (adult) (pediatric) IBS (irritable bowel syndrome) Irritable bowel syndrome SOB (shortness of breath) on exertion Shortness of breath Parkinson disease (HCC) Paralysis agitans Obesity Obesity, unspecified Obesity- Primary Obesity, unspecified Cataracts, bilateral Unspecified cataract Low oxygen saturation Abnormal arterial blood gases Type II or unspecified type diabetes mellitus without mention of complication, uncontrolled Hyperlipidemia LDL goal < 70 Other and unspecified hyperlipidemia Hyperlipidemia LDL goal < 70- Primary Other and unspecified hyperlipidemia Type II or unspecified type diabetes mellitus without mention of complication, uncontrolled Tingling in extremities Disturbance of skin sensation Pain in limb Vitamin D deficiency Unspecified vitamin D deficiency Type II or unspecified type diabetes mellitus without mention of complication, uncontrolled- Primary Hyperlipidemia LDL goal < 70 Other and unspecified hyperlipidemia Pedal edema Edema Obesity Obesity, unspecified IBS (irritable bowel syndrome) Irritable bowel syndrome Hypertonicity of bladder Type II or unspecified type diabetes mellitus without mention of complication, uncontrolled- Primary Obesity Obesity, unspecified IBS (irritable bowel syndrome) Irritable bowel syndrome SOB (shortness of breath) on exertion Shortness of breath Hypertonicity of bladder Routine health maintenance Routine general medical examination at a health care facility Low oxygen saturation Abnormal arterial blood gases Low oxygen saturation- Primary Abnormal arterial blood gases ARIANA (obstructive sleep apnea) Obstructive sleep apnea (adult) (pediatric) Type II or unspecified type diabetes mellitus without mention of complication, uncontrolled Numbness and tingling in hands Disturbance of skin sensation Depression Depressive disorder, not elsewhere classified SOB (shortness of breath) on exertion- Primary Shortness of breath ARIANA (obstructive sleep apnea) Obstructive sleep apnea (adult) (pediatric) Type II or unspecified type diabetes mellitus without mention of complication, uncontrolled Obesity Obesity, unspecified Oxygen dependent Dependence on supplemental oxygen Vitamin D deficiency- Primary Unspecified vitamin D deficiency Type II or unspecified type diabetes mellitus without mention of complication, uncontrolled Low oxygen saturation Abnormal arterial blood gases Obesity Obesity, unspecified Pain in left knee- Primary Pain in joint, lower leg Morbid obesity, unspecified obesity type ([facility]) Diabetes mellitus type 2, uncontrolled Type II or unspecified type diabetes mellitus without mention of complication, uncontrolled Tardive dyskinesia- Primary Subacute dyskinesia due to drugs Benign paroxysmal positional vertigo, unspecified laterality Diabetes mellitus type 2, uncontrolled Type II or unspecified type diabetes mellitus without mention of complication, uncontrolled ARIANA (obstructive sleep apnea) Obstructive sleep apnea (adult) (pediatric) Morbid obesity, unspecified obesity type ([facility]) Vaginal dryness Other specified symptom associated with female genital organs Diabetes mellitus type 2, uncontrolled- Primary Type II or unspecified type diabetes mellitus without mention of complication, uncontrolled Hyperlipidemia with target LDL less than 70 Other and unspecified hyperlipidemia Tardive dyskinesia Subacute dyskinesia due to drugs Primary insomnia Persistent disorder of initiating or maintaining sleep Incontinence of feces, unspecified fecal incontinence type- Primary Uncontrolled type 2 diabetes mellitus without complication, with long-term current use of insulin Class 2 obesity without serious comorbidity with body mass index (BMI) of 35.0 to 35.9 in adult, unspecified obesity type Tardive dyskinesia Subacute dyskinesia due to drugs RLS (restless legs syndrome) Restless legs syndrome (RLS) Hyperlipidemia with target LDL less than 70 Other and unspecified hyperlipidemia Pre-operative examination- Primary Preoperative examination, unspecified Chronic pain of left knee Pain in joint, lower leg Diabetes mellitus type 2 ([facility]) History of implantation of artificial sphincter Hyperlipidemia with target LDL less than 70 Other and unspecified hyperlipidemia Hypertonicity of bladder Incontinence of feces, unspecified fecal incontinence type ARIANA (obstructive sleep apnea) Obstructive sleep apnea (adult) (pediatric) Tardive dyskinesia Subacute dyskinesia due to drugs Obesity, Class III, BMI >= 40 (morbid obesity) ([facility]) E66.01 Morbid obesity S/P gastric sleeve procedure Gastroesophageal reflux disease, unspecified whether esophagitis present Swelling Edema PTSD (post-traumatic stress disorder) Posttraumatic stress disorder Pre-operative examination- Primary Preoperative examination, unspecified Diabetes mellitus type 2 ([facility]) Tardive dyskinesia Subacute dyskinesia due to drugs Swelling Edema S/P gastric sleeve procedure RLS (restless legs syndrome) Restless legs syndrome (RLS) PTSD (post-traumatic stress disorder) Posttraumatic stress disorder Primary osteoarthritis of left knee Primary localized osteoarthrosis, lower leg ARIANA (obstructive sleep apnea) Obstructive sleep apnea (adult) (pediatric) Incontinence of feces, unspecified fecal incontinence type Hypertonicity of bladder Hyperlipidemia with target LDL less than 70 Other and unspecified hyperlipidemia Gastroesophageal reflux disease, unspecified whether esophagitis present Neuropathy Mononeuritis of unspecified site [facility] Wheezing- Primary Tardive dyskinesia Subacute dyskinesia due to drugs Low O2 saturation Abnormal arterial blood gases 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 Low oxygen saturation Abnormal arterial blood gases Parkinson disease (HCC)- Primary Paralysis agitans Schizophrenia (HCC) Unspecified schizophrenia, unspecified condition Tardive dyskinesia Subacute dyskinesia due to drugs Low oxygen saturation Abnormal arterial blood gases Type II or unspecified type diabetes mellitus without mention of complication, uncontrolled Hyperlipidemia LDL goal < 70 Other and unspecified hyperlipidemia Nausea- Primary Nausea alone Type II or unspecified type diabetes mellitus without mention of complication, uncontrolled SOB (shortness of breath) on exertion Shortness of breath Urinary incontinence Unspecified urinary incontinence RLS (restless legs syndrome) Restless legs syndrome (RLS) Hypomagnesemia Disorders of magnesium metabolism Vitamin D deficiency Unspecified vitamin D deficiency Iron deficiency Iron deficiency anemia, unspecified Diabetes 1.5, 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HCC) Type II or unspecified type diabetes mellitus without mention of complication, not stated as uncontrolled SOB (shortness of breath) on exertion- Primary Shortness of breath ARIANA (obstructive sleep apnea) Obstructive sleep apnea (adult) (pediatric) Type II or unspecified type diabetes mellitus without mention of complication, uncontrolled Type II or unspecified type diabetes mellitus without mention of complication, uncontrolled- Primary ARIANA (obstructive sleep apnea) Obstructive sleep apnea (adult) (pediatric) Low oxygen saturation Abnormal arterial blood gases Obesity Obesity, unspecified Frequency of urination Urinary frequency Type II or unspecified type diabetes mellitus without mention of complication, uncontrolled- Primary Hyperlipidemia LDL goal < 70 Other and unspecified hyperlipidemia ARIANA (obstructive sleep apnea) Obstructive sleep apnea (adult) (pediatric) IBS (irritable bowel syndrome) Irritable bowel syndrome SOB (shortness of breath) on exertion Shortness of breath Parkinson disease (HCC) Paralysis agitans Obesity Obesity, unspecified Obesity- Primary Obesity, unspecified Cataracts, bilateral Unspecified cataract Low oxygen saturation Abnormal arterial blood gases Type II or unspecified type diabetes mellitus without mention of complication, uncontrolled Hyperlipidemia LDL goal < 70 Other and unspecified hyperlipidemia Hyperlipidemia LDL goal < 70- Primary Other and unspecified hyperlipidemia Type II or unspecified type diabetes mellitus without mention of complication, uncontrolled Tingling in extremities Disturbance of skin sensation Pain in limb Vitamin D deficiency Unspecified vitamin D deficiency Type II or unspecified type diabetes mellitus without mention of complication, uncontrolled- Primary Hyperlipidemia LDL goal < 70 Other and unspecified hyperlipidemia Pedal edema Edema Obesity Obesity, unspecified IBS (irritable bowel syndrome) Irritable bowel syndrome Hypertonicity of bladder Type II or unspecified type diabetes mellitus without mention of complication, uncontrolled- Primary Obesity Obesity, unspecified IBS (irritable bowel syndrome) Irritable bowel syndrome SOB (shortness of breath) on exertion Shortness of breath Hypertonicity of bladder Routine health maintenance Routine general medical examination at a health care facility Low oxygen saturation Abnormal arterial blood gases Low oxygen saturation- Primary Abnormal arterial blood gases ARIANA (obstructive sleep apnea) Obstructive sleep apnea (adult) (pediatric) Type II or unspecified type diabetes mellitus without mention of complication, uncontrolled Numbness and tingling in hands Disturbance of skin sensation Depression Depressive disorder, not elsewhere classified SOB (shortness of breath) on exertion- Primary Shortness of breath ARIANA (obstructive sleep apnea) Obstructive sleep apnea (adult) (pediatric) Type II or unspecified type diabetes mellitus without mention of complication, uncontrolled Obesity Obesity, unspecified Oxygen dependent Dependence on supplemental oxygen Vitamin D deficiency- Primary Unspecified vitamin D deficiency Type II or unspecified type diabetes mellitus without mention of complication, uncontrolled Low oxygen saturation Abnormal arterial blood gases Obesity Obesity, unspecified Pain in left knee- Primary Pain in joint, lower leg Morbid obesity, unspecified obesity type (HCC) Diabetes mellitus type 2, uncontrolled Type II or unspecified type diabetes mellitus without mention of complication, uncontrolled Tardive dyskinesia- Primary Subacute dyskinesia due to drugs Benign paroxysmal positional vertigo, unspecified laterality Diabetes mellitus type 2, uncontrolled Type II or unspecified type diabetes mellitus without mention of complication, uncontrolled ARIANA (obstructive sleep apnea) Obstructive sleep apnea (adult) (pediatric) Morbid obesity, unspecified obesity type (HCC) Vaginal dryness Other specified symptom associated with female genital organs Diabetes mellitus type 2, uncontrolled- Primary Type II or unspecified type diabetes mellitus without mention of complication, uncontrolled Hyperlipidemia with target LDL less than 70 Other and unspecified hyperlipidemia Tardive dyskinesia Subacute dyskinesia due to drugs Primary insomnia Persistent disorder of initiating or maintaining sleep Incontinence of feces, unspecified fecal incontinence type- Primary Uncontrolled type 2 diabetes mellitus without complication, with long-term current use of insulin Class 2 obesity without serious comorbidity with body mass index (BMI) of 35.0 to 35.9 in adult, unspecified obesity type Tardive dyskinesia Subacute dyskinesia due to drugs RLS (restless legs syndrome) Restless legs syndrome (RLS) Hyperlipidemia with target LDL less than 70 Other and unspecified hyperlipidemia Fall, initial encounter Pre-operative examination- Primary Preoperative examination, unspecified Chronic pain of left knee Pain in joint, lower leg Diabetes mellitus type 2 ([facility]) History of implantation of artificial sphincter Hyperlipidemia with target LDL less than 70 Other and unspecified hyperlipidemia Hypertonicity of bladder Incontinence of feces, unspecified fecal incontinence type ARIANA (obstructive sleep apnea) Obstructive sleep apnea (adult) (pediatric) Tardive dyskinesia Subacute dyskinesia due to drugs Obesity, Class III, BMI >= 40 (morbid obesity) ([facility]) E66.01 Morbid obesity S/P gastric sleeve procedure Gastroesophageal reflux disease, unspecified whether esophagitis present Swelling Edema PTSD (post-traumatic stress disorder) Posttraumatic stress disorder Pre-operative examination- Primary Preoperative examination, unspecified Diabetes mellitus type 2 ([facility]) Tardive dyskinesia Subacute dyskinesia due to drugs Swelling Edema S/P gastric sleeve procedure RLS (restless legs syndrome) Restless legs syndrome (RLS) PTSD (post-traumatic stress disorder) Posttraumatic stress disorder Primary osteoarthritis of left knee Primary localized osteoarthrosis, lower leg ARIANA (obstructive sleep apnea) Obstructive sleep apnea (adult) (pediatric) Incontinence of feces, unspecified fecal incontinence type Hypertonicity of bladder Hyperlipidemia with target LDL less than 70 Other and unspecified hyperlipidemia Gastroesophageal reflux disease, unspecified whether esophagitis present [facility] Diagnosis Wheezing- Primary Tardive dyskinesia Subacute dyskinesia due to drugs Low O2 saturation Abnormal arterial blood gases 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 Low oxygen saturation Abnormal arterial blood gases Parkinson disease ([facility])- Primary Paralysis agitans Schizophrenia ([facility]) Unspecified schizophrenia, unspecified condition Tardive dyskinesia Subacute dyskinesia due to drugs Low oxygen saturation Abnormal arterial blood gases Type II or unspecified type diabetes mellitus without mention of complication, uncontrolled Hyperlipidemia LDL goal < 70 Other and unspecified hyperlipidemia Nausea- Primary Nausea alone Type II or unspecified type diabetes mellitus without mention of complication, uncontrolled SOB (shortness of breath) on exertion Shortness of breath Urinary incontinence Unspecified urinary incontinence RLS (restless legs syndrome) Restless legs syndrome (RLS) Hypomagnesemia Disorders of magnesium metabolism Vitamin D deficiency Unspecified vitamin D deficiency Iron deficiency Iron deficiency anemia, unspecified Diabetes 1.5, 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HCC) Type II or unspecified type diabetes mellitus without mention of complication, not stated as uncontrolled SOB (shortness of breath) on exertion- Primary Shortness of breath ARIANA (obstructive sleep apnea) Obstructive sleep apnea (adult) (pediatric) Type II or unspecified type diabetes mellitus without mention of complication, uncontrolled Type II or unspecified type diabetes mellitus without mention of complication, uncontrolled- Primary ARIANA (obstructive sleep apnea) Obstructive sleep apnea (adult) (pediatric) Low oxygen saturation Abnormal arterial blood gases Obesity Obesity, unspecified Frequency of urination Urinary frequency Type II or unspecified type diabetes mellitus without mention of complication, uncontrolled- Primary Hyperlipidemia LDL goal < 70 Other and unspecified hyperlipidemia ARIANA (obstructive sleep apnea) Obstructive sleep apnea (adult) (pediatric) IBS (irritable bowel syndrome) Irritable bowel syndrome SOB (shortness of breath) on exertion Shortness of breath Parkinson disease (HCC) Paralysis agitans Obesity Obesity, unspecified Obesity- Primary Obesity, unspecified Cataracts, bilateral Unspecified cataract Low oxygen saturation Abnormal arterial blood gases Type II or unspecified type diabetes mellitus without mention of complication, uncontrolled Hyperlipidemia LDL goal < 70 Other and unspecified hyperlipidemia Hyperlipidemia LDL goal < 70- Primary Other and unspecified hyperlipidemia Type II or unspecified type diabetes mellitus without mention of complication, uncontrolled Tingling in extremities Disturbance of skin sensation Pain in limb Vitamin D deficiency Unspecified vitamin D deficiency Type II or unspecified type diabetes mellitus without mention of complication, uncontrolled- Primary Hyperlipidemia LDL goal < 70 Other and unspecified hyperlipidemia Pedal edema Edema Obesity Obesity, unspecified IBS (irritable bowel syndrome) Irritable bowel syndrome Hypertonicity of bladder Type II or unspecified type diabetes mellitus without mention of complication, uncontrolled- Primary Obesity Obesity, unspecified IBS (irritable bowel syndrome) Irritable bowel syndrome SOB (shortness of breath) on exertion Shortness of breath Hypertonicity of bladder Routine health maintenance Routine general medical examination at a health care facility Low oxygen saturation Abnormal arterial blood gases Low oxygen saturation- Primary Abnormal arterial blood gases ARIANA (obstructive sleep apnea) Obstructive sleep apnea (adult) (pediatric) Type II or unspecified type diabetes mellitus without mention of complication, uncontrolled Numbness and tingling in hands Disturbance of skin sensation Depression Depressive disorder, not elsewhere classified SOB (shortness of breath) on exertion- Primary Shortness of breath ARIANA (obstructive sleep apnea) Obstructive sleep apnea (adult) (pediatric) Type II or unspecified type diabetes mellitus without mention of complication, uncontrolled Obesity Obesity, unspecified Oxygen dependent Dependence on supplemental oxygen Vitamin D deficiency- Primary Unspecified vitamin D deficiency Type II or unspecified type diabetes mellitus without mention of complication, uncontrolled Low oxygen saturation Abnormal arterial blood gases Obesity Obesity, unspecified Pain in left knee- Primary Pain in joint, lower leg Morbid obesity, unspecified obesity type (HCC) Diabetes mellitus type 2, uncontrolled Type II or unspecified type diabetes mellitus without mention of complication, uncontrolled Tardive dyskinesia- Primary Subacute dyskinesia due to drugs Benign paroxysmal positional vertigo, unspecified laterality Diabetes mellitus type 2, uncontrolled Type II or unspecified type diabetes mellitus without mention of complication, uncontrolled ARIANA (obstructive sleep apnea) Obstructive sleep apnea (adult) (pediatric) Morbid obesity, unspecified obesity type (HCC) Vaginal dryness Other specified symptom associated with female genital organs Diabetes mellitus type 2, uncontrolled- Primary Type II or unspecified type diabetes mellitus without mention of complication, uncontrolled Hyperlipidemia with target LDL less than 70 Other and unspecified hyperlipidemia Tardive dyskinesia Subacute dyskinesia due to drugs Primary insomnia Persistent disorder of initiating or maintaining sleep Incontinence of feces, unspecified fecal incontinence type- Primary Uncontrolled type 2 diabetes mellitus without complication, with long-term current use of insulin Class 2 obesity without serious comorbidity with body mass index (BMI) of 35.0 to 35.9 in adult, unspecified obesity type Tardive dyskinesia Subacute dyskinesia due to drugs RLS (restless legs syndrome) Restless legs syndrome (RLS) Hyperlipidemia with target LDL less than 70 Other and unspecified hyperlipidemia Pre-operative examination- Primary Preoperative examination, unspecified Chronic pain of left knee Pain in joint, lower leg Diabetes mellitus type 2 ([facility]) History of implantation of artificial sphincter Hyperlipidemia with target LDL less than 70 Other and unspecified hyperlipidemia Hypertonicity of bladder Incontinence of feces, unspecified fecal incontinence type ARIANA (obstructive sleep apnea) Obstructive sleep apnea (adult) (pediatric) Tardive dyskinesia Subacute dyskinesia due to drugs Obesity, Class III, BMI >= 40 (morbid obesity) ([facility]) E66.01 Morbid obesity S/P gastric sleeve procedure Gastroesophageal reflux disease, unspecified whether esophagitis present Swelling Edema PTSD (post-traumatic stress disorder) Posttraumatic stress disorder Pre-operative examination- Primary Preoperative examination, unspecified Diabetes mellitus type 2 (HCC) Tardive dyskinesia Subacute dyskinesia due to drugs Swelling Edema S/P gastric sleeve procedure RLS (restless legs syndrome) Restless legs syndrome (RLS) PTSD (post-traumatic stress disorder) Posttraumatic stress disorder Primary osteoarthritis of left knee Primary localized osteoarthrosis, lower leg ARIANA (obstructive sleep apnea) Obstructive sleep apnea (adult) (pediatric) Incontinence of feces, unspecified fecal incontinence type Hypertonicity of bladder Hyperlipidemia with target LDL less than 70 Other and unspecified hyperlipidemia Gastroesophageal reflux disease, unspecified whether esophagitis present Insomnia, unspecified type [facility] Diagnosis Wheezing- Primary Tardive dyskinesia Subacute dyskinesia due to drugs Low O2 saturation Abnormal arterial blood gases 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 Low oxygen saturation Abnormal arterial blood gases Parkinson disease (HCC)- Primary Paralysis agitans Schizophrenia ([facility]) Unspecified schizophrenia, unspecified condition Tardive dyskinesia Subacute dyskinesia due to drugs Low oxygen saturation Abnormal arterial blood gases Type II or unspecified type diabetes mellitus without mention of complication, uncontrolled Hyperlipidemia LDL goal < 70 Other and unspecified hyperlipidemia Nausea- Primary Nausea alone Type II or unspecified type diabetes mellitus without mention of complication, uncontrolled SOB (shortness of breath) on exertion Shortness of breath Urinary incontinence Unspecified urinary incontinence RLS (restless legs syndrome) Restless legs syndrome (RLS) Hypomagnesemia Disorders of magnesium metabolism Vitamin D deficiency Unspecified vitamin D deficiency Iron deficiency Iron deficiency anemia, unspecified Diabetes 1.5, 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HCC) Type II or unspecified type diabetes mellitus without mention of complication, not stated as uncontrolled SOB (shortness of breath) on exertion- Primary Shortness of breath ARIANA (obstructive sleep apnea) Obstructive sleep apnea (adult) (pediatric) Type II or unspecified type diabetes mellitus without mention of complication, uncontrolled Type II or unspecified type diabetes mellitus without mention of complication, uncontrolled- Primary ARIANA (obstructive sleep apnea) Obstructive sleep apnea (adult) (pediatric) Low oxygen saturation Abnormal arterial blood gases Obesity Obesity, unspecified Frequency of urination Urinary frequency Type II or unspecified type diabetes mellitus without mention of complication, uncontrolled- Primary Hyperlipidemia LDL goal < 70 Other and unspecified hyperlipidemia ARIANA (obstructive sleep apnea) Obstructive sleep apnea (adult) (pediatric) IBS (irritable bowel syndrome) Irritable bowel syndrome SOB (shortness of breath) on exertion Shortness of breath Parkinson disease (HCC) Paralysis agitans Obesity Obesity, unspecified Obesity- Primary Obesity, unspecified Cataracts, bilateral Unspecified cataract Low oxygen saturation Abnormal arterial blood gases Type II or unspecified type diabetes mellitus without mention of complication, uncontrolled Hyperlipidemia LDL goal < 70 Other and unspecified hyperlipidemia Hyperlipidemia LDL goal < 70- Primary Other and unspecified hyperlipidemia Type II or unspecified type diabetes mellitus without mention of complication, uncontrolled Tingling in extremities Disturbance of skin sensation Pain in limb Vitamin D deficiency Unspecified vitamin D deficiency Type II or unspecified type diabetes mellitus without mention of complication, uncontrolled- Primary Hyperlipidemia LDL goal < 70 Other and unspecified hyperlipidemia Pedal edema Edema Obesity Obesity, unspecified IBS (irritable bowel syndrome) Irritable bowel syndrome Hypertonicity of bladder Type II or unspecified type diabetes mellitus without mention of complication, uncontrolled- Primary Obesity Obesity, unspecified IBS (irritable bowel syndrome) Irritable bowel syndrome SOB (shortness of breath) on exertion Shortness of breath Hypertonicity of bladder Routine health maintenance Routine general medical examination at a health care facility Low oxygen saturation Abnormal arterial blood gases Low oxygen saturation- Primary Abnormal arterial blood gases ARIANA (obstructive sleep apnea) Obstructive sleep apnea (adult) (pediatric) Type II or unspecified type diabetes mellitus without mention of complication, uncontrolled Numbness and tingling in hands Disturbance of skin sensation Depression Depressive disorder, not elsewhere classified SOB (shortness of breath) on exertion- Primary Shortness of breath ARIANA (obstructive sleep apnea) Obstructive sleep apnea (adult) (pediatric) Type II or unspecified type diabetes mellitus without mention of complication, uncontrolled Obesity Obesity, unspecified Oxygen dependent Dependence on supplemental oxygen Vitamin D deficiency- Primary Unspecified vitamin D deficiency Type II or unspecified type diabetes mellitus without mention of complication, uncontrolled Low oxygen saturation Abnormal arterial blood gases Obesity Obesity, unspecified Pain in left knee- Primary Pain in joint, lower leg Morbid obesity, unspecified obesity type (HCC) Diabetes mellitus type 2, uncontrolled Type II or unspecified type diabetes mellitus without mention of complication, uncontrolled Tardive dyskinesia- Primary Subacute dyskinesia due to drugs Benign paroxysmal positional vertigo, unspecified laterality Diabetes mellitus type 2, uncontrolled Type II or unspecified type diabetes mellitus without mention of complication, uncontrolled ARIANA (obstructive sleep apnea) Obstructive sleep apnea (adult) (pediatric) Morbid obesity, unspecified obesity type (HCC) Vaginal dryness Other specified symptom associated with female genital organs Diabetes mellitus type 2, uncontrolled- Primary Type II or unspecified type diabetes mellitus without mention of complication, uncontrolled Hyperlipidemia with target LDL less than 70 Other and unspecified hyperlipidemia Tardive dyskinesia Subacute dyskinesia due to drugs Primary insomnia Persistent disorder of initiating or maintaining sleep Incontinence of feces, unspecified fecal incontinence type- Primary Uncontrolled type 2 diabetes mellitus without complication, with long-term current use of insulin Class 2 obesity without serious comorbidity with body mass index (BMI) of 35.0 to 35.9 in adult, unspecified obesity type Tardive dyskinesia Subacute dyskinesia due to drugs RLS (restless legs syndrome) Restless legs syndrome (RLS) Hyperlipidemia with target LDL less than 70 Other and unspecified hyperlipidemia Pre-operative examination- Primary Preoperative examination, unspecified Chronic pain of left knee Pain in joint, lower leg Diabetes mellitus type 2 ([facility]) History of implantation of artificial sphincter Hyperlipidemia with target LDL less than 70 Other and unspecified hyperlipidemia Hypertonicity of bladder Incontinence of feces, unspecified fecal incontinence type ARIANA (obstructive sleep apnea) Obstructive sleep apnea (adult) (pediatric) Tardive dyskinesia Subacute dyskinesia due to drugs Obesity, Class III, BMI >= 40 (morbid obesity) ([facility]) E66.01 Morbid obesity S/P gastric sleeve procedure Gastroesophageal reflux disease, unspecified whether esophagitis present Swelling Edema PTSD (post-traumatic stress disorder) Posttraumatic stress disorder Pre-operative examination- Primary Preoperative examination, unspecified Diabetes mellitus type 2 ([facility]) Tardive dyskinesia Subacute dyskinesia due to drugs Swelling Edema S/P gastric sleeve procedure RLS (restless legs syndrome) Restless legs syndrome (RLS) PTSD (post-traumatic stress disorder) Posttraumatic stress disorder Primary osteoarthritis of left knee Primary localized osteoarthrosis, lower leg ARIANA (obstructive sleep apnea) Obstructive sleep apnea (adult) (pediatric) Incontinence of feces, unspecified fecal incontinence type Hypertonicity of bladder Hyperlipidemia with target LDL less than 70 Other and unspecified hyperlipidemia Gastroesophageal reflux disease, unspecified whether esophagitis present Insomnia, unspecified type Uncontrolled type 2 diabetes mellitus with hyperglycemia ([facility]) [facility] Wheezing- Primary Tardive dyskinesia Subacute dyskinesia due to drugs Low O2 saturation Abnormal arterial blood gases 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 Low oxygen saturation Abnormal arterial blood gases Parkinson disease ([facility])- Primary Paralysis agitans Schizophrenia (HCC) Unspecified schizophrenia, unspecified condition Tardive dyskinesia Subacute dyskinesia due to drugs Low oxygen saturation Abnormal arterial blood gases Type II or unspecified type diabetes mellitus without mention of complication, uncontrolled Hyperlipidemia LDL goal < 70 Other and unspecified hyperlipidemia Nausea- Primary Nausea alone Type II or unspecified type diabetes mellitus without mention of complication, uncontrolled SOB (shortness of breath) on exertion Shortness of breath Urinary incontinence Unspecified urinary incontinence RLS (restless legs syndrome) Restless legs syndrome (RLS) Hypomagnesemia Disorders of magnesium metabolism Vitamin D deficiency Unspecified vitamin D deficiency Iron deficiency Iron deficiency anemia, unspecified Diabetes 1.5, 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HCC) Type II or unspecified type diabetes mellitus without mention of complication, not stated as uncontrolled SOB (shortness of breath) on exertion- Primary Shortness of breath ARIANA (obstructive sleep apnea) Obstructive sleep apnea (adult) (pediatric) Type II or unspecified type diabetes mellitus without mention of complication, uncontrolled Type II or unspecified type diabetes mellitus without mention of complication, uncontrolled- Primary ARIANA (obstructive sleep apnea) Obstructive sleep apnea (adult) (pediatric) Low oxygen saturation Abnormal arterial blood gases Obesity Obesity, unspecified Frequency of urination Urinary frequency Type II or unspecified type diabetes mellitus without mention of complication, uncontrolled- Primary Hyperlipidemia LDL goal < 70 Other and unspecified hyperlipidemia ARIANA (obstructive sleep apnea) Obstructive sleep apnea (adult) (pediatric) IBS (irritable bowel syndrome) Irritable bowel syndrome SOB (shortness of breath) on exertion Shortness of breath Parkinson disease (HCC) Paralysis agitans Obesity Obesity, unspecified Obesity- Primary Obesity, unspecified Cataracts, bilateral Unspecified cataract Low oxygen saturation Abnormal arterial blood gases Type II or unspecified type diabetes mellitus without mention of complication, uncontrolled Hyperlipidemia LDL goal < 70 Other and unspecified hyperlipidemia Hyperlipidemia LDL goal < 70- Primary Other and unspecified hyperlipidemia Type II or unspecified type diabetes mellitus without mention of complication, uncontrolled Tingling in extremities Disturbance of skin sensation Pain in limb Vitamin D deficiency Unspecified vitamin D deficiency Type II or unspecified type diabetes mellitus without mention of complication, uncontrolled- Primary Hyperlipidemia LDL goal < 70 Other and unspecified hyperlipidemia Pedal edema Edema Obesity Obesity, unspecified IBS (irritable bowel syndrome) Irritable bowel syndrome Hypertonicity of bladder Type II or unspecified type diabetes mellitus without mention of complication, uncontrolled- Primary Obesity Obesity, unspecified IBS (irritable bowel syndrome) Irritable bowel syndrome SOB (shortness of breath) on exertion Shortness of breath Hypertonicity of bladder Routine health maintenance Routine general medical examination at a health care facility Low oxygen saturation Abnormal arterial blood gases Low oxygen saturation- Primary Abnormal arterial blood gases ARIANA (obstructive sleep apnea) Obstructive sleep apnea (adult) (pediatric) Type II or unspecified type diabetes mellitus without mention of complication, uncontrolled Numbness and tingling in hands Disturbance of skin sensation Depression Depressive disorder, not elsewhere classified SOB (shortness of breath) on exertion- Primary Shortness of breath ARIANA (obstructive sleep apnea) Obstructive sleep apnea (adult) (pediatric) Type II or unspecified type diabetes mellitus without mention of complication, uncontrolled Obesity Obesity, unspecified Oxygen dependent Dependence on supplemental oxygen Vitamin D deficiency- Primary Unspecified vitamin D deficiency Type II or unspecified type diabetes mellitus without mention of complication, uncontrolled Low oxygen saturation Abnormal arterial blood gases Obesity Obesity, unspecified Pain in left knee- Primary Pain in joint, lower leg Morbid obesity, unspecified obesity type (HCC) Diabetes mellitus type 2, uncontrolled Type II or unspecified type diabetes mellitus without mention of complication, uncontrolled Tardive dyskinesia- Primary Subacute dyskinesia due to drugs Benign paroxysmal positional vertigo, unspecified laterality Diabetes mellitus type 2, uncontrolled Type II or unspecified type diabetes mellitus without mention of complication, uncontrolled ARIANA (obstructive sleep apnea) Obstructive sleep apnea (adult) (pediatric) Morbid obesity, unspecified obesity type (HCC) Vaginal dryness Other specified symptom associated with female genital organs Diabetes mellitus type 2, uncontrolled- Primary Type II or unspecified type diabetes mellitus without mention of complication, uncontrolled Hyperlipidemia with target LDL less than 70 Other and unspecified hyperlipidemia Tardive dyskinesia Subacute dyskinesia due to drugs Primary insomnia Persistent disorder of initiating or maintaining sleep Incontinence of feces, unspecified fecal incontinence type- Primary Uncontrolled type 2 diabetes mellitus without complication, with long-term current use of insulin Class 2 obesity without serious comorbidity with body mass index (BMI) of 35.0 to 35.9 in adult, unspecified obesity type Tardive dyskinesia Subacute dyskinesia due to drugs RLS (restless legs syndrome) Restless legs syndrome (RLS) Hyperlipidemia with target LDL less than 70 Other and unspecified hyperlipidemia Pre-operative examination- Primary Preoperative examination, unspecified Chronic pain of left knee Pain in joint, lower leg Diabetes mellitus type 2 (HCC) History of implantation of artificial sphincter Hyperlipidemia with target LDL less than 70 Other and unspecified hyperlipidemia Hypertonicity of bladder Incontinence of feces, unspecified fecal incontinence type ARIANA (obstructive sleep apnea) Obstructive sleep apnea (adult) (pediatric) Tardive dyskinesia Subacute dyskinesia due to drugs Obesity, Class III, BMI >= 40 (morbid obesity) ([facility]) E66.01 Morbid obesity S/P gastric sleeve procedure Gastroesophageal reflux disease, unspecified whether esophagitis present Swelling Edema PTSD (post-traumatic stress disorder) Posttraumatic stress disorder Pre-operative examination- Primary Preoperative examination, unspecified Diabetes mellitus type 2 ([facility]) Tardive dyskinesia Subacute dyskinesia due to drugs Swelling Edema S/P gastric sleeve procedure RLS (restless legs syndrome) Restless legs syndrome (RLS) PTSD (post-traumatic stress disorder) Posttraumatic stress disorder Primary osteoarthritis of left knee Primary localized osteoarthrosis, lower leg ARIANA (obstructive sleep apnea) Obstructive sleep apnea (adult) (pediatric) Incontinence of feces, unspecified fecal incontinence type Hypertonicity of bladder Hyperlipidemia with target LDL less than 70 Other and unspecified hyperlipidemia Gastroesophageal reflux disease, unspecified whether esophagitis present Depression with anxiety Dysthymic disorder [facility] Diagnosis Wheezing- Primary Tardive dyskinesia Subacute dyskinesia due to drugs Low O2 saturation Abnormal arterial blood gases 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 Low oxygen saturation Abnormal arterial blood gases Parkinson disease ([facility])- Primary Paralysis agitans Schizophrenia ([facility]) Unspecified schizophrenia, unspecified condition Tardive dyskinesia Subacute dyskinesia due to drugs Low oxygen saturation Abnormal arterial blood gases Type II or unspecified type diabetes mellitus without mention of complication, uncontrolled Hyperlipidemia LDL goal < 70 Other and unspecified hyperlipidemia Nausea- Primary Nausea alone Type II or unspecified type diabetes mellitus without mention of complication, uncontrolled SOB (shortness of breath) on exertion Shortness of breath Urinary incontinence Unspecified urinary incontinence RLS (restless legs syndrome) Restless legs syndrome (RLS) Hypomagnesemia Disorders of magnesium metabolism Vitamin D deficiency Unspecified vitamin D deficiency Iron deficiency Iron deficiency anemia, unspecified Diabetes 1.5, 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[facility]) Type II or unspecified type diabetes mellitus without mention of complication, not stated as uncontrolled SOB (shortness of breath) on exertion- Primary Shortness of breath ARIANA (obstructive sleep apnea) Obstructive sleep apnea (adult) (pediatric) Type II or unspecified type diabetes mellitus without mention of complication, uncontrolled Type II or unspecified type diabetes mellitus without mention of complication, uncontrolled- Primary ARIANA (obstructive sleep apnea) Obstructive sleep apnea (adult) (pediatric) Low oxygen saturation Abnormal arterial blood gases Obesity Obesity, unspecified Frequency of urination Urinary frequency Type II or unspecified type diabetes mellitus without mention of complication, uncontrolled- Primary Hyperlipidemia LDL goal < 70 Other and unspecified hyperlipidemia ARIANA (obstructive sleep apnea) Obstructive sleep apnea (adult) (pediatric) IBS (irritable bowel syndrome) Irritable bowel syndrome SOB (shortness of breath) on exertion Shortness of breath Parkinson disease (HCC) Paralysis agitans Obesity Obesity, unspecified Obesity- Primary Obesity, unspecified Cataracts, bilateral Unspecified cataract Low oxygen saturation Abnormal arterial blood gases Type II or unspecified type diabetes mellitus without mention of complication, uncontrolled Hyperlipidemia LDL goal < 70 Other and unspecified hyperlipidemia Hyperlipidemia LDL goal < 70- Primary Other and unspecified hyperlipidemia Type II or unspecified type diabetes mellitus without mention of complication, uncontrolled Tingling in extremities Disturbance of skin sensation Pain in limb Vitamin D deficiency Unspecified vitamin D deficiency Type II or unspecified type diabetes mellitus without mention of complication, uncontrolled- Primary Hyperlipidemia LDL goal < 70 Other and unspecified hyperlipidemia Pedal edema Edema Obesity Obesity, unspecified IBS (irritable bowel syndrome) Irritable bowel syndrome Hypertonicity of bladder Type II or unspecified type diabetes mellitus without mention of complication, uncontrolled- Primary Obesity Obesity, unspecified IBS (irritable bowel syndrome) Irritable bowel syndrome SOB (shortness of breath) on exertion Shortness of breath Hypertonicity of bladder Routine health maintenance Routine general medical examination at a health care facility Low oxygen saturation Abnormal arterial blood gases Low oxygen saturation- Primary Abnormal arterial blood gases ARIANA (obstructive sleep apnea) Obstructive sleep apnea (adult) (pediatric) Type II or unspecified type diabetes mellitus without mention of complication, uncontrolled Numbness and tingling in hands Disturbance of skin sensation Depression Depressive disorder, not elsewhere classified SOB (shortness of breath) on exertion- Primary Shortness of breath ARIANA (obstructive sleep apnea) Obstructive sleep apnea (adult) (pediatric) Type II or unspecified type diabetes mellitus without mention of complication, uncontrolled Obesity Obesity, unspecified Oxygen dependent Dependence on supplemental oxygen Vitamin D deficiency- Primary Unspecified vitamin D deficiency Type II or unspecified type diabetes mellitus without mention of complication, uncontrolled Low oxygen saturation Abnormal arterial blood gases Obesity Obesity, unspecified Pain in left knee- Primary Pain in joint, lower leg Morbid obesity, unspecified obesity type (HCC) Diabetes mellitus type 2, uncontrolled Type II or unspecified type diabetes mellitus without mention of complication, uncontrolled Tardive dyskinesia- Primary Subacute dyskinesia due to drugs Benign paroxysmal positional vertigo, unspecified laterality Diabetes mellitus type 2, uncontrolled Type II or unspecified type diabetes mellitus without mention of complication, uncontrolled ARIANA (obstructive sleep apnea) Obstructive sleep apnea (adult) (pediatric) Morbid obesity, unspecified obesity type (HCC) Vaginal dryness Other specified symptom associated with female genital organs Diabetes mellitus type 2, uncontrolled- Primary Type II or unspecified type diabetes mellitus without mention of complication, uncontrolled Hyperlipidemia with target LDL less than 70 Other and unspecified hyperlipidemia Tardive dyskinesia Subacute dyskinesia due to drugs Primary insomnia Persistent disorder of initiating or maintaining sleep Incontinence of feces, unspecified fecal incontinence type- Primary Uncontrolled type 2 diabetes mellitus without complication, with long-term current use of insulin Class 2 obesity without serious comorbidity with body mass index (BMI) of 35.0 to 35.9 in adult, unspecified obesity type Tardive dyskinesia Subacute dyskinesia due to drugs RLS (restless legs syndrome) Restless legs syndrome (RLS) Hyperlipidemia with target LDL less than 70 Other and unspecified hyperlipidemia Pre-operative examination- Primary Preoperative examination, unspecified Chronic pain of left knee Pain in joint, lower leg Diabetes mellitus type 2 ([facility]) History of implantation of artificial sphincter Hyperlipidemia with target LDL less than 70 Other and unspecified hyperlipidemia Hypertonicity of bladder Incontinence of feces, unspecified fecal incontinence type ARIANA (obstructive sleep apnea) Obstructive sleep apnea (adult) (pediatric) Tardive dyskinesia Subacute dyskinesia due to drugs Obesity, Class III, BMI >= 40 (morbid obesity) ([facility]) E66.01 Morbid obesity S/P gastric sleeve procedure Gastroesophageal reflux disease, unspecified whether esophagitis present Swelling Edema PTSD (post-traumatic stress disorder) Posttraumatic stress disorder Pre-operative examination- Primary Preoperative examination, unspecified Diabetes mellitus type 2 (HCC) Tardive dyskinesia Subacute dyskinesia due to drugs Swelling Edema S/P gastric sleeve procedure RLS (restless legs syndrome) Restless legs syndrome (RLS) PTSD (post-traumatic stress disorder) Posttraumatic stress disorder Primary osteoarthritis of left knee Primary localized osteoarthrosis, lower leg ARIANA (obstructive sleep apnea) Obstructive sleep apnea (adult) (pediatric) Incontinence of feces, unspecified fecal incontinence type Hypertonicity of bladder Hyperlipidemia with target LDL less than 70 Other and unspecified hyperlipidemia Gastroesophageal reflux disease, unspecified whether esophagitis present Diabetes mellitus type 2 (HCC) Hyperlipidemia with target LDL less than 70 Other and unspecified hyperlipidemia [facility] Diagnosis Wheezing- Primary Tardive dyskinesia Subacute dyskinesia due to drugs Low O2 saturation Abnormal arterial blood gases 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 Low oxygen saturation Abnormal arterial blood gases Parkinson disease (HCC)- Primary Paralysis agitans Schizophrenia (HCC) Unspecified schizophrenia, unspecified condition Tardive dyskinesia Subacute dyskinesia due to drugs Low oxygen saturation Abnormal arterial blood gases Type II or unspecified type diabetes mellitus without mention of complication, uncontrolled Hyperlipidemia LDL goal < 70 Other and unspecified hyperlipidemia Nausea- Primary Nausea alone Type II or unspecified type diabetes mellitus without mention of complication, uncontrolled SOB (shortness of breath) on exertion Shortness of breath Urinary incontinence Unspecified urinary incontinence RLS (restless legs syndrome) Restless legs syndrome (RLS) Hypomagnesemia Disorders of magnesium metabolism Vitamin D deficiency Unspecified vitamin D deficiency Iron deficiency Iron deficiency anemia, unspecified Diabetes 1.5, 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HCC) Type II or unspecified type diabetes mellitus without mention of complication, not stated as uncontrolled SOB (shortness of breath) on exertion- Primary Shortness of breath ARIANA (obstructive sleep apnea) Obstructive sleep apnea (adult) (pediatric) Type II or unspecified type diabetes mellitus without mention of complication, uncontrolled Type II or unspecified type diabetes mellitus without mention of complication, uncontrolled- Primary ARIANA (obstructive sleep apnea) Obstructive sleep apnea (adult) (pediatric) Low oxygen saturation Abnormal arterial blood gases Obesity Obesity, unspecified Frequency of urination Urinary frequency Type II or unspecified type diabetes mellitus without mention of complication, uncontrolled- Primary Hyperlipidemia LDL goal < 70 Other and unspecified hyperlipidemia ARIAAN (obstructive sleep apnea) Obstructive sleep apnea (adult) (pediatric) IBS (irritable bowel syndrome) Irritable bowel syndrome SOB (shortness of breath) on exertion Shortness of breath Parkinson disease (HCC) Paralysis agitans Obesity Obesity, unspecified Obesity- Primary Obesity, unspecified Cataracts, bilateral Unspecified cataract Low oxygen saturation Abnormal arterial blood gases Type II or unspecified type diabetes mellitus without mention of complication, uncontrolled Hyperlipidemia LDL goal < 70 Other and unspecified hyperlipidemia Hyperlipidemia LDL goal < 70- Primary Other and unspecified hyperlipidemia Type II or unspecified type diabetes mellitus without mention of complication, uncontrolled Tingling in extremities Disturbance of skin sensation Pain in limb Vitamin D deficiency Unspecified vitamin D deficiency Type II or unspecified type diabetes mellitus without mention of complication, uncontrolled- Primary Hyperlipidemia LDL goal < 70 Other and unspecified hyperlipidemia Pedal edema Edema Obesity Obesity, unspecified IBS (irritable bowel syndrome) Irritable bowel syndrome Hypertonicity of bladder Type II or unspecified type diabetes mellitus without mention of complication, uncontrolled- Primary Obesity Obesity, unspecified IBS (irritable bowel syndrome) Irritable bowel syndrome SOB (shortness of breath) on exertion Shortness of breath Hypertonicity of bladder Routine health maintenance Routine general medical examination at a health care facility Low oxygen saturation Abnormal arterial blood gases Low oxygen saturation- Primary Abnormal arterial blood gases ARIANA (obstructive sleep apnea) Obstructive sleep apnea (adult) (pediatric) Type II or unspecified type diabetes mellitus without mention of complication, uncontrolled Numbness and tingling in hands Disturbance of skin sensation Depression Depressive disorder, not elsewhere classified SOB (shortness of breath) on exertion- Primary Shortness of breath ARIANA (obstructive sleep apnea) Obstructive sleep apnea (adult) (pediatric) Type II or unspecified type diabetes mellitus without mention of complication, uncontrolled Obesity Obesity, unspecified Oxygen dependent Dependence on supplemental oxygen Vitamin D deficiency- Primary Unspecified vitamin D deficiency Type II or unspecified type diabetes mellitus without mention of complication, uncontrolled Low oxygen saturation Abnormal arterial blood gases Obesity Obesity, unspecified Pain in left knee- Primary Pain in joint, lower leg Morbid obesity, unspecified obesity type (HCC) Diabetes mellitus type 2, uncontrolled Type II or unspecified type diabetes mellitus without mention of complication, uncontrolled Tardive dyskinesia- Primary Subacute dyskinesia due to drugs Benign paroxysmal positional vertigo, unspecified laterality Diabetes mellitus type 2, uncontrolled Type II or unspecified type diabetes mellitus without mention of complication, uncontrolled ARIANA (obstructive sleep apnea) Obstructive sleep apnea (adult) (pediatric) Morbid obesity, unspecified obesity type (HCC) Vaginal dryness Other specified symptom associated with female genital organs Diabetes mellitus type 2, uncontrolled- Primary Type II or unspecified type diabetes mellitus without mention of complication, uncontrolled Hyperlipidemia with target LDL less than 70 Other and unspecified hyperlipidemia Tardive dyskinesia Subacute dyskinesia due to drugs Primary insomnia Persistent disorder of initiating or maintaining sleep Incontinence of feces, unspecified fecal incontinence type- Primary Uncontrolled type 2 diabetes mellitus without complication, with long-term current use of insulin Class 2 obesity without serious comorbidity with body mass index (BMI) of 35.0 to 35.9 in adult, unspecified obesity type Tardive dyskinesia Subacute dyskinesia due to drugs RLS (restless legs syndrome) Restless legs syndrome (RLS) Hyperlipidemia with target LDL less than 70 Other and unspecified hyperlipidemia Pre-operative examination- Primary Preoperative examination, unspecified Chronic pain of left knee Pain in joint, lower leg Diabetes mellitus type 2 ([facility]) History of implantation of artificial sphincter Hyperlipidemia with target LDL less than 70 Other and unspecified hyperlipidemia Hypertonicity of bladder Incontinence of feces, unspecified fecal incontinence type ARIANA (obstructive sleep apnea) Obstructive sleep apnea (adult) (pediatric) Tardive dyskinesia Subacute dyskinesia due to drugs Obesity, Class III, BMI >= 40 (morbid obesity) ([facility]) E66.01 Morbid obesity S/P gastric sleeve procedure Gastroesophageal reflux disease, unspecified whether esophagitis present Swelling Edema PTSD (post-traumatic stress disorder) Posttraumatic stress disorder Pre-operative examination- Primary Preoperative examination, unspecified Diabetes mellitus type 2 ([facility]) Tardive dyskinesia Subacute dyskinesia due to drugs Swelling Edema S/P gastric sleeve procedure RLS (restless legs syndrome) Restless legs syndrome (RLS) PTSD (post-traumatic stress disorder) Posttraumatic stress disorder Primary osteoarthritis of left knee Primary localized osteoarthrosis, lower leg ARIANA (obstructive sleep apnea) Obstructive sleep apnea (adult) (pediatric) Incontinence of feces, unspecified fecal incontinence type Hypertonicity of bladder Hyperlipidemia with target LDL less than 70 Other and unspecified hyperlipidemia Gastroesophageal reflux disease, unspecified whether esophagitis present Diabetes mellitus type 2 ([facility])- Primary Intolerance to heat Unspecified effects of heat and light Sweating abnormality Other specified disorder of sweat glands Other fatigue Parkinson's disease, unspecified whether dyskinesia present, unspecified whether manifestations fluctuate ([facility]) Encounter for immunization Need for other specified prophylactic vaccination against single bacterial disease Encounter for screening mammogram for breast cancer Asymptomatic menopause [facility] Diagnosis Intestinal malabsorption, unspecified type- Primary [facility] Diagnosis Intestinal malabsorption, unspecified type- [facility] Diagnosis Wheezing- Primary Tardive dyskinesia Subacute dyskinesia due to drugs Low O2 saturation Abnormal arterial blood gases 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 Low oxygen saturation Abnormal arterial blood gases Parkinson disease ([facility])- Primary Paralysis agitans Schizophrenia ([facility]) Unspecified schizophrenia, unspecified condition Tardive dyskinesia Subacute dyskinesia due to drugs Low oxygen saturation Abnormal arterial blood gases Type II or unspecified type diabetes mellitus without mention of complication, uncontrolled Hyperlipidemia LDL goal < 70 Other and unspecified hyperlipidemia Nausea- Primary Nausea alone Type II or unspecified type diabetes mellitus without mention of complication, uncontrolled SOB (shortness of breath) on exertion Shortness of breath Urinary incontinence Unspecified urinary incontinence RLS (restless legs syndrome) Restless legs syndrome (RLS) Hypomagnesemia Disorders of magnesium metabolism Vitamin D deficiency Unspecified vitamin D deficiency Iron deficiency Iron deficiency anemia, unspecified Diabetes 1.5, 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HCC) Type II or unspecified type diabetes mellitus without mention of complication, not stated as uncontrolled SOB (shortness of breath) on exertion- Primary Shortness of breath ARIANA (obstructive sleep apnea) Obstructive sleep apnea (adult) (pediatric) Type II or unspecified type diabetes mellitus without mention of complication, uncontrolled Type II or unspecified type diabetes mellitus without mention of complication, uncontrolled- Primary ARIANA (obstructive sleep apnea) Obstructive sleep apnea (adult) (pediatric) Low oxygen saturation Abnormal arterial blood gases Obesity Obesity, unspecified Frequency of urination Urinary frequency Type II or unspecified type diabetes mellitus without mention of complication, uncontrolled- Primary Hyperlipidemia LDL goal < 70 Other and unspecified hyperlipidemia ARIANA (obstructive sleep apnea) Obstructive sleep apnea (adult) (pediatric) IBS (irritable bowel syndrome) Irritable bowel syndrome SOB (shortness of breath) on exertion Shortness of breath Parkinson disease (HCC) Paralysis agitans Obesity Obesity, unspecified Obesity- Primary Obesity, unspecified Cataracts, bilateral Unspecified cataract Low oxygen saturation Abnormal arterial blood gases Type II or unspecified type diabetes mellitus without mention of complication, uncontrolled Hyperlipidemia LDL goal < 70 Other and unspecified hyperlipidemia Hyperlipidemia LDL goal < 70- Primary Other and unspecified hyperlipidemia Type II or unspecified type diabetes mellitus without mention of complication, uncontrolled Tingling in extremities Disturbance of skin sensation Pain in limb Vitamin D deficiency Unspecified vitamin D deficiency Type II or unspecified type diabetes mellitus without mention of complication, uncontrolled- Primary Hyperlipidemia LDL goal < 70 Other and unspecified hyperlipidemia Pedal edema Edema Obesity Obesity, unspecified IBS (irritable bowel syndrome) Irritable bowel syndrome Hypertonicity of bladder Type II or unspecified type diabetes mellitus without mention of complication, uncontrolled- Primary Obesity Obesity, unspecified IBS (irritable bowel syndrome) Irritable bowel syndrome SOB (shortness of breath) on exertion Shortness of breath Hypertonicity of bladder Routine health maintenance Routine general medical examination at a health care facility Low oxygen saturation Abnormal arterial blood gases Low oxygen saturation- Primary Abnormal arterial blood gases ARIANA (obstructive sleep apnea) Obstructive sleep apnea (adult) (pediatric) Type II or unspecified type diabetes mellitus without mention of complication, uncontrolled Numbness and tingling in hands Disturbance of skin sensation Depression Depressive disorder, not elsewhere classified SOB (shortness of breath) on exertion- Primary Shortness of breath ARIANA (obstructive sleep apnea) Obstructive sleep apnea (adult) (pediatric) Type II or unspecified type diabetes mellitus without mention of complication, uncontrolled Obesity Obesity, unspecified Oxygen dependent Dependence on supplemental oxygen Vitamin D deficiency- Primary Unspecified vitamin D deficiency Type II or unspecified type diabetes mellitus without mention of complication, uncontrolled Low oxygen saturation Abnormal arterial blood gases Obesity Obesity, unspecified Pain in left knee- Primary Pain in joint, lower leg Morbid obesity, unspecified obesity type (HCC) Diabetes mellitus type 2, uncontrolled Type II or unspecified type diabetes mellitus without mention of complication, uncontrolled Tardive dyskinesia- Primary Subacute dyskinesia due to drugs Benign paroxysmal positional vertigo, unspecified laterality Diabetes mellitus type 2, uncontrolled Type II or unspecified type diabetes mellitus without mention of complication, uncontrolled ARIANA (obstructive sleep apnea) Obstructive sleep apnea (adult) (pediatric) Morbid obesity, unspecified obesity type (HCC) Vaginal dryness Other specified symptom associated with female genital organs Diabetes mellitus type 2, uncontrolled- Primary Type II or unspecified type diabetes mellitus without mention of complication, uncontrolled Hyperlipidemia with target LDL less than 70 Other and unspecified hyperlipidemia Tardive dyskinesia Subacute dyskinesia due to drugs Primary insomnia Persistent disorder of initiating or maintaining sleep Incontinence of feces, unspecified fecal incontinence type- Primary Uncontrolled type 2 diabetes mellitus without complication, with long-term current use of insulin Class 2 obesity without serious comorbidity with body mass index (BMI) of 35.0 to 35.9 in adult, unspecified obesity type Tardive dyskinesia Subacute dyskinesia due to drugs RLS (restless legs syndrome) Restless legs syndrome (RLS) Hyperlipidemia with target LDL less than 70 Other and unspecified hyperlipidemia Pre-operative examination- Primary Preoperative examination, unspecified Chronic pain of left knee Pain in joint, lower leg Diabetes mellitus type 2 (HCC) History of implantation of artificial sphincter Hyperlipidemia with target LDL less than 70 Other and unspecified hyperlipidemia Hypertonicity of bladder Incontinence of feces, unspecified fecal incontinence type ARIANA (obstructive sleep apnea) Obstructive sleep apnea (adult) (pediatric) Tardive dyskinesia Subacute dyskinesia due to drugs Obesity, Class III, BMI >= 40 (morbid obesity) ([facility]) E66.01 Morbid obesity S/P gastric sleeve procedure Gastroesophageal reflux disease, unspecified whether esophagitis present Swelling Edema PTSD (post-traumatic stress disorder) Posttraumatic stress disorder Pre-operative examination- Primary Preoperative examination, unspecified Diabetes mellitus type 2 ([facility]) Tardive dyskinesia Subacute dyskinesia due to drugs Swelling Edema S/P gastric sleeve procedure RLS (restless legs syndrome) Restless legs syndrome (RLS) PTSD (post-traumatic stress disorder) Posttraumatic stress disorder Primary osteoarthritis of left knee Primary localized osteoarthrosis, lower leg ARIANA (obstructive sleep apnea) Obstructive sleep apnea (adult) (pediatric) Incontinence of feces, unspecified fecal incontinence type Hypertonicity of bladder Hyperlipidemia with target LDL less than 70 Other and unspecified hyperlipidemia Gastroesophageal reflux disease, unspecified whether esophagitis present Vitamin D deficiency- Primary Unspecified vitamin D deficiency Insomnia, unspecified [facility]- Primary Tardive dyskinesia Subacute dyskinesia due to drugs Low O2 saturation Abnormal arterial blood gases 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 Low oxygen saturation Abnormal arterial blood gases Parkinson disease ([facility])- Primary Paralysis agitans Schizophrenia ([facility]) Unspecified schizophrenia, unspecified condition Tardive dyskinesia Subacute dyskinesia due to drugs Low oxygen saturation Abnormal arterial blood gases Type II or unspecified type diabetes mellitus without mention of complication, uncontrolled Hyperlipidemia LDL goal < 70 Other and unspecified hyperlipidemia Nausea- Primary Nausea alone Type II or unspecified type diabetes mellitus without mention of complication, uncontrolled SOB (shortness of breath) on exertion Shortness of breath Urinary incontinence Unspecified urinary incontinence RLS (restless legs syndrome) Restless legs syndrome (RLS) Hypomagnesemia Disorders of magnesium metabolism Vitamin D deficiency Unspecified vitamin D deficiency Iron deficiency Iron deficiency anemia, unspecified Diabetes 1.5, 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[facility]) Type II or unspecified type diabetes mellitus without mention of complication, not stated as uncontrolled SOB (shortness of breath) on exertion- Primary Shortness of breath ARIANA (obstructive sleep apnea) Obstructive sleep apnea (adult) (pediatric) Type II or unspecified type diabetes mellitus without mention of complication, uncontrolled Type II or unspecified type diabetes mellitus without mention of complication, uncontrolled- Primary ARIANA (obstructive sleep apnea) Obstructive sleep apnea (adult) (pediatric) Low oxygen saturation Abnormal arterial blood gases Obesity Obesity, unspecified Frequency of urination Urinary frequency Type II or unspecified type diabetes mellitus without mention of complication, uncontrolled- Primary Hyperlipidemia LDL goal < 70 Other and unspecified hyperlipidemia ARIANA (obstructive sleep apnea) Obstructive sleep apnea (adult) (pediatric) IBS (irritable bowel syndrome) Irritable bowel syndrome SOB (shortness of breath) on exertion Shortness of breath Parkinson disease (HCC) Paralysis agitans Obesity Obesity, unspecified Obesity- Primary Obesity, unspecified Cataracts, bilateral Unspecified cataract Low oxygen saturation Abnormal arterial blood gases Type II or unspecified type diabetes mellitus without mention of complication, uncontrolled Hyperlipidemia LDL goal < 70 Other and unspecified hyperlipidemia Hyperlipidemia LDL goal < 70- Primary Other and unspecified hyperlipidemia Type II or unspecified type diabetes mellitus without mention of complication, uncontrolled Tingling in extremities Disturbance of skin sensation Pain in limb Vitamin D deficiency Unspecified vitamin D deficiency Type II or unspecified type diabetes mellitus without mention of complication, uncontrolled- Primary Hyperlipidemia LDL goal < 70 Other and unspecified hyperlipidemia Pedal edema Edema Obesity Obesity, unspecified IBS (irritable bowel syndrome) Irritable bowel syndrome Hypertonicity of bladder Type II or unspecified type diabetes mellitus without mention of complication, uncontrolled- Primary Obesity Obesity, unspecified IBS (irritable bowel syndrome) Irritable bowel syndrome SOB (shortness of breath) on exertion Shortness of breath Hypertonicity of bladder Routine health maintenance Routine general medical examination at a health care facility Low oxygen saturation Abnormal arterial blood gases Low oxygen saturation- Primary Abnormal arterial blood gases ARIANA (obstructive sleep apnea) Obstructive sleep apnea (adult) (pediatric) Type II or unspecified type diabetes mellitus without mention of complication, uncontrolled Numbness and tingling in hands Disturbance of skin sensation Depression Depressive disorder, not elsewhere classified SOB (shortness of breath) on exertion- Primary Shortness of breath ARIANA (obstructive sleep apnea) Obstructive sleep apnea (adult) (pediatric) Type II or unspecified type diabetes mellitus without mention of complication, uncontrolled Obesity Obesity, unspecified Oxygen dependent Dependence on supplemental oxygen Vitamin D deficiency- Primary Unspecified vitamin D deficiency Type II or unspecified type diabetes mellitus without mention of complication, uncontrolled Low oxygen saturation Abnormal arterial blood gases Obesity Obesity, unspecified Pain in left knee- Primary Pain in joint, lower leg Morbid obesity, unspecified obesity type (HCC) Diabetes mellitus type 2, uncontrolled Type II or unspecified type diabetes mellitus without mention of complication, uncontrolled Tardive dyskinesia- Primary Subacute dyskinesia due to drugs Benign paroxysmal positional vertigo, unspecified laterality Diabetes mellitus type 2, uncontrolled Type II or unspecified type diabetes mellitus without mention of complication, uncontrolled ARIANA (obstructive sleep apnea) Obstructive sleep apnea (adult) (pediatric) Morbid obesity, unspecified obesity type ([facility]) Vaginal dryness Other specified symptom associated with female genital organs Diabetes mellitus type 2, uncontrolled- Primary Type II or unspecified type diabetes mellitus without mention of complication, uncontrolled Hyperlipidemia with target LDL less than 70 Other and unspecified hyperlipidemia Tardive dyskinesia Subacute dyskinesia due to drugs Primary insomnia Persistent disorder of initiating or maintaining sleep Incontinence of feces, unspecified fecal incontinence type- Primary Uncontrolled type 2 diabetes mellitus without complication, with long-term current use of insulin Class 2 obesity without serious comorbidity with body mass index (BMI) of 35.0 to 35.9 in adult, unspecified obesity type Tardive dyskinesia Subacute dyskinesia due to drugs RLS (restless legs syndrome) Restless legs syndrome (RLS) Hyperlipidemia with target LDL less than 70 Other and unspecified hyperlipidemia Pre-operative examination- Primary Preoperative examination, unspecified Chronic pain of left knee Pain in joint, lower leg Diabetes mellitus type 2 ([facility]) History of implantation of artificial sphincter Hyperlipidemia with target LDL less than 70 Other and unspecified hyperlipidemia Hypertonicity of bladder Incontinence of feces, unspecified fecal incontinence type ARIANA (obstructive sleep apnea) Obstructive sleep apnea (adult) (pediatric) Tardive dyskinesia Subacute dyskinesia due to drugs Obesity, Class III, BMI >= 40 (morbid obesity) ([facility]) E66.01 Morbid obesity S/P gastric sleeve procedure Gastroesophageal reflux disease, unspecified whether esophagitis present Swelling Edema PTSD (post-traumatic stress disorder) Posttraumatic stress disorder Pre-operative examination- Primary Preoperative examination, unspecified Diabetes mellitus type 2 ([facility]) Tardive dyskinesia Subacute dyskinesia due to drugs Swelling Edema S/P gastric sleeve procedure RLS (restless legs syndrome) Restless legs syndrome (RLS) PTSD (post-traumatic stress disorder) Posttraumatic stress disorder Primary osteoarthritis of left knee Primary localized osteoarthrosis, lower leg ARIANA (obstructive sleep apnea) Obstructive sleep apnea (adult) (pediatric) Incontinence of feces, unspecified fecal incontinence type Hypertonicity of bladder Hyperlipidemia with target LDL less than 70 Other and unspecified hyperlipidemia Gastroesophageal reflux disease, unspecified whether esophagitis present Parkinson's disease, unspecified whether dyskinesia present, unspecified whether manifestations fluctuate (HCC)- Primary Tardive dyskinesia Subacute dyskinesia due to drugs [facility] Diagnosis Wheezing- Primary Tardive dyskinesia Subacute dyskinesia due to drugs Low O2 saturation Abnormal arterial blood gases 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 Low oxygen saturation Abnormal arterial blood gases Parkinson disease (HCC)- Primary Paralysis agitans Schizophrenia (HCC) Unspecified schizophrenia, unspecified condition Tardive dyskinesia Subacute dyskinesia due to drugs Low oxygen saturation Abnormal arterial blood gases Type II or unspecified type diabetes mellitus without mention of complication, uncontrolled Hyperlipidemia LDL goal < 70 Other and unspecified hyperlipidemia Nausea- Primary Nausea alone Type II or unspecified type diabetes mellitus without mention of complication, uncontrolled SOB (shortness of breath) on exertion Shortness of breath Urinary incontinence Unspecified urinary incontinence RLS (restless legs syndrome) Restless legs syndrome (RLS) Hypomagnesemia Disorders of magnesium metabolism Vitamin D deficiency Unspecified vitamin D deficiency Iron deficiency Iron deficiency anemia, unspecified Diabetes 1.5, 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HCC) Type II or unspecified type diabetes mellitus without mention of complication, not stated as uncontrolled SOB (shortness of breath) on exertion- Primary Shortness of breath ARIANA (obstructive sleep apnea) Obstructive sleep apnea (adult) (pediatric) Type II or unspecified type diabetes mellitus without mention of complication, uncontrolled Type II or unspecified type diabetes mellitus without mention of complication, uncontrolled- Primary ARIANA (obstructive sleep apnea) Obstructive sleep apnea (adult) (pediatric) Low oxygen saturation Abnormal arterial blood gases Obesity Obesity, unspecified Frequency of urination Urinary frequency Type II or unspecified type diabetes mellitus without mention of complication, uncontrolled- Primary Hyperlipidemia LDL goal < 70 Other and unspecified hyperlipidemia ARIANA (obstructive sleep apnea) Obstructive sleep apnea (adult) (pediatric) IBS (irritable bowel syndrome) Irritable bowel syndrome SOB (shortness of breath) on exertion Shortness of breath Parkinson disease (HCC) Paralysis agitans Obesity Obesity, unspecified Obesity- Primary Obesity, unspecified Cataracts, bilateral Unspecified cataract Low oxygen saturation Abnormal arterial blood gases Type II or unspecified type diabetes mellitus without mention of complication, uncontrolled Hyperlipidemia LDL goal < 70 Other and unspecified hyperlipidemia Hyperlipidemia LDL goal < 70- Primary Other and unspecified hyperlipidemia Type II or unspecified type diabetes mellitus without mention of complication, uncontrolled Tingling in extremities Disturbance of skin sensation Pain in limb Vitamin D deficiency Unspecified vitamin D deficiency Type II or unspecified type diabetes mellitus without mention of complication, uncontrolled- Primary Hyperlipidemia LDL goal < 70 Other and unspecified hyperlipidemia Pedal edema Edema Obesity Obesity, unspecified IBS (irritable bowel syndrome) Irritable bowel syndrome Hypertonicity of bladder Type II or unspecified type diabetes mellitus without mention of complication, uncontrolled- Primary Obesity Obesity, unspecified IBS (irritable bowel syndrome) Irritable bowel syndrome SOB (shortness of breath) on exertion Shortness of breath Hypertonicity of bladder Routine health maintenance Routine general medical examination at a health care facility Low oxygen saturation Abnormal arterial blood gases Low oxygen saturation- Primary Abnormal arterial blood gases ARIANA (obstructive sleep apnea) Obstructive sleep apnea (adult) (pediatric) Type II or unspecified type diabetes mellitus without mention of complication, uncontrolled Numbness and tingling in hands Disturbance of skin sensation Depression Depressive disorder, not elsewhere classified SOB (shortness of breath) on exertion- Primary Shortness of breath ARIANA (obstructive sleep apnea) Obstructive sleep apnea (adult) (pediatric) Type II or unspecified type diabetes mellitus without mention of complication, uncontrolled Obesity Obesity, unspecified Oxygen dependent Dependence on supplemental oxygen Vitamin D deficiency- Primary Unspecified vitamin D deficiency Type II or unspecified type diabetes mellitus without mention of complication, uncontrolled Low oxygen saturation Abnormal arterial blood gases Obesity Obesity, unspecified Pain in left knee- Primary Pain in joint, lower leg Morbid obesity, unspecified obesity type (HCC) Diabetes mellitus type 2, uncontrolled Type II or unspecified type diabetes mellitus without mention of complication, uncontrolled Tardive dyskinesia- Primary Subacute dyskinesia due to drugs Benign paroxysmal positional vertigo, unspecified laterality Diabetes mellitus type 2, uncontrolled Type II or unspecified type diabetes mellitus without mention of complication, uncontrolled ARIANA (obstructive sleep apnea) Obstructive sleep apnea (adult) (pediatric) Morbid obesity, unspecified obesity type (HCC) Vaginal dryness Other specified symptom associated with female genital organs Diabetes mellitus type 2, uncontrolled- Primary Type II or unspecified type diabetes mellitus without mention of complication, uncontrolled Hyperlipidemia with target LDL less than 70 Other and unspecified hyperlipidemia Tardive dyskinesia Subacute dyskinesia due to drugs Primary insomnia Persistent disorder of initiating or maintaining sleep Incontinence of feces, unspecified fecal incontinence type- Primary Uncontrolled type 2 diabetes mellitus without complication, with long-term current use of insulin Class 2 obesity without serious comorbidity with body mass index (BMI) of 35.0 to 35.9 in adult, unspecified obesity type Tardive dyskinesia Subacute dyskinesia due to drugs RLS (restless legs syndrome) Restless legs syndrome (RLS) Hyperlipidemia with target LDL less than 70 Other and unspecified hyperlipidemia Pre-operative examination- Primary Preoperative examination, unspecified Chronic pain of left knee Pain in joint, lower leg Diabetes mellitus type 2 ([facility]) History of implantation of artificial sphincter Hyperlipidemia with target LDL less than 70 Other and unspecified hyperlipidemia Hypertonicity of bladder Incontinence of feces, unspecified fecal incontinence type ARIANA (obstructive sleep apnea) Obstructive sleep apnea (adult) (pediatric) Tardive dyskinesia Subacute dyskinesia due to drugs Obesity, Class III, BMI >= 40 (morbid obesity) ([facility]) E66.01 Morbid obesity S/P gastric sleeve procedure Gastroesophageal reflux disease, unspecified whether esophagitis present Swelling Edema PTSD (post-traumatic stress disorder) Posttraumatic stress disorder Pre-operative examination- Primary Preoperative examination, unspecified Diabetes mellitus type 2 ([facility]) Tardive dyskinesia Subacute dyskinesia due to drugs Swelling Edema S/P gastric sleeve procedure RLS (restless legs syndrome) Restless legs syndrome (RLS) PTSD (post-traumatic stress disorder) Posttraumatic stress disorder Primary osteoarthritis of left knee Primary localized osteoarthrosis, lower leg ARIANA (obstructive sleep apnea) Obstructive sleep apnea (adult) (pediatric) Incontinence of feces, unspecified fecal incontinence type Hypertonicity of bladder Hyperlipidemia with target LDL less than 70 Other and unspecified hyperlipidemia Gastroesophageal reflux disease, unspecified whether esophagitis present Decreased activities of daily living (ADL)- Primary Parkinson's disease, unspecified whether dyskinesia present, unspecified whether manifestations fluctuate ([facility]) Tardive dyskinesia Subacute dyskinesia due to drugs [facility] Diagnosis Wheezing- Primary Tardive dyskinesia Subacute dyskinesia due to drugs Low O2 saturation Abnormal arterial blood gases 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 Low oxygen saturation Abnormal arterial blood gases Parkinson disease (HCC)- Primary Paralysis agitans Schizophrenia ([facility]) Unspecified schizophrenia, unspecified condition Tardive dyskinesia Subacute dyskinesia due to drugs Low oxygen saturation Abnormal arterial blood gases Type II or unspecified type diabetes mellitus without mention of complication, uncontrolled Hyperlipidemia LDL goal < 70 Other and unspecified hyperlipidemia Nausea- Primary Nausea alone Type II or unspecified type diabetes mellitus without mention of complication, uncontrolled SOB (shortness of breath) on exertion Shortness of breath Urinary incontinence Unspecified urinary incontinence RLS (restless legs syndrome) Restless legs syndrome (RLS) Hypomagnesemia Disorders of magnesium metabolism Vitamin D deficiency Unspecified vitamin D deficiency Iron deficiency Iron deficiency anemia, unspecified Diabetes 1.5, 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HCC) Type II or unspecified type diabetes mellitus without mention of complication, not stated as uncontrolled SOB (shortness of breath) on exertion- Primary Shortness of breath ARIANA (obstructive sleep apnea) Obstructive sleep apnea (adult) (pediatric) Type II or unspecified type diabetes mellitus without mention of complication, uncontrolled Type II or unspecified type diabetes mellitus without mention of complication, uncontrolled- Primary ARIANA (obstructive sleep apnea) Obstructive sleep apnea (adult) (pediatric) Low oxygen saturation Abnormal arterial blood gases Obesity Obesity, unspecified Frequency of urination Urinary frequency Type II or unspecified type diabetes mellitus without mention of complication, uncontrolled- Primary Hyperlipidemia LDL goal < 70 Other and unspecified hyperlipidemia ARIANA (obstructive sleep apnea) Obstructive sleep apnea (adult) (pediatric) IBS (irritable bowel syndrome) Irritable bowel syndrome SOB (shortness of breath) on exertion Shortness of breath Parkinson disease (HCC) Paralysis agitans Obesity Obesity, unspecified Obesity- Primary Obesity, unspecified Cataracts, bilateral Unspecified cataract Low oxygen saturation Abnormal arterial blood gases Type II or unspecified type diabetes mellitus without mention of complication, uncontrolled Hyperlipidemia LDL goal < 70 Other and unspecified hyperlipidemia Hyperlipidemia LDL goal < 70- Primary Other and unspecified hyperlipidemia Type II or unspecified type diabetes mellitus without mention of complication, uncontrolled Tingling in extremities Disturbance of skin sensation Pain in limb Vitamin D deficiency Unspecified vitamin D deficiency Type II or unspecified type diabetes mellitus without mention of complication, uncontrolled- Primary Hyperlipidemia LDL goal < 70 Other and unspecified hyperlipidemia Pedal edema Edema Obesity Obesity, unspecified IBS (irritable bowel syndrome) Irritable bowel syndrome Hypertonicity of bladder Type II or unspecified type diabetes mellitus without mention of complication, uncontrolled- Primary Obesity Obesity, unspecified IBS (irritable bowel syndrome) Irritable bowel syndrome SOB (shortness of breath) on exertion Shortness of breath Hypertonicity of bladder Routine health maintenance Routine general medical examination at a health care facility Low oxygen saturation Abnormal arterial blood gases Low oxygen saturation- Primary Abnormal arterial blood gases ARIANA (obstructive sleep apnea) Obstructive sleep apnea (adult) (pediatric) Type II or unspecified type diabetes mellitus without mention of complication, uncontrolled Numbness and tingling in hands Disturbance of skin sensation Depression Depressive disorder, not elsewhere classified SOB (shortness of breath) on exertion- Primary Shortness of breath ARIANA (obstructive sleep apnea) Obstructive sleep apnea (adult) (pediatric) Type II or unspecified type diabetes mellitus without mention of complication, uncontrolled Obesity Obesity, unspecified Oxygen dependent Dependence on supplemental oxygen Vitamin D deficiency- Primary Unspecified vitamin D deficiency Type II or unspecified type diabetes mellitus without mention of complication, uncontrolled Low oxygen saturation Abnormal arterial blood gases Obesity Obesity, unspecified Pain in left knee- Primary Pain in joint, lower leg Morbid obesity, unspecified obesity type (HCC) Diabetes mellitus type 2, uncontrolled Type II or unspecified type diabetes mellitus without mention of complication, uncontrolled Tardive dyskinesia- Primary Subacute dyskinesia due to drugs Benign paroxysmal positional vertigo, unspecified laterality Diabetes mellitus type 2, uncontrolled Type II or unspecified type diabetes mellitus without mention of complication, uncontrolled ARIANA (obstructive sleep apnea) Obstructive sleep apnea (adult) (pediatric) Morbid obesity, unspecified obesity type ([facility]) Vaginal dryness Other specified symptom associated with female genital organs Diabetes mellitus type 2, uncontrolled- Primary Type II or unspecified type diabetes mellitus without mention of complication, uncontrolled Hyperlipidemia with target LDL less than 70 Other and unspecified hyperlipidemia Tardive dyskinesia Subacute dyskinesia due to drugs Primary insomnia Persistent disorder of initiating or maintaining sleep Incontinence of feces, unspecified fecal incontinence type- Primary Uncontrolled type 2 diabetes mellitus without complication, with long-term current use of insulin Class 2 obesity without serious comorbidity with body mass index (BMI) of 35.0 to 35.9 in adult, unspecified obesity type Tardive dyskinesia Subacute dyskinesia due to drugs RLS (restless legs syndrome) Restless legs syndrome (RLS) Hyperlipidemia with target LDL less than 70 Other and unspecified hyperlipidemia Pre-operative examination- Primary Preoperative examination, unspecified Chronic pain of left knee Pain in joint, lower leg Diabetes mellitus type 2 ([facility]) History of implantation of artificial sphincter Hyperlipidemia with target LDL less than 70 Other and unspecified hyperlipidemia Hypertonicity of bladder Incontinence of feces, unspecified fecal incontinence type ARIANA (obstructive sleep apnea) Obstructive sleep apnea (adult) (pediatric) Tardive dyskinesia Subacute dyskinesia due to drugs Obesity, Class III, BMI >= 40 (morbid obesity) ([facility]) E66.01 Morbid obesity S/P gastric sleeve procedure Gastroesophageal reflux disease, unspecified whether esophagitis present Swelling Edema PTSD (post-traumatic stress disorder) Posttraumatic stress disorder Pre-operative examination- Primary Preoperative examination, unspecified Diabetes mellitus type 2 (HCC) Tardive dyskinesia Subacute dyskinesia due to drugs Swelling Edema S/P gastric sleeve procedure RLS (restless legs syndrome) Restless legs syndrome (RLS) PTSD (post-traumatic stress disorder) Posttraumatic stress disorder Primary osteoarthritis of left knee Primary localized osteoarthrosis, lower leg ARIANA (obstructive sleep apnea) Obstructive sleep apnea (adult) (pediatric) Incontinence of feces, unspecified fecal incontinence type Hypertonicity of bladder Hyperlipidemia with target LDL less than 70 Other and unspecified hyperlipidemia Gastroesophageal reflux disease, unspecified whether esophagitis present Uncontrolled type 2 diabetes mellitus with hyperglycemia ([facility]) [facility] Wheezing- Primary Tardive dyskinesia Subacute dyskinesia due to drugs Low O2 saturation Abnormal arterial blood gases 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 Low oxygen saturation Abnormal arterial blood gases Parkinson disease (HCC)- Primary Paralysis agitans Schizophrenia ([facility]) Unspecified schizophrenia, unspecified condition Tardive dyskinesia Subacute dyskinesia due to drugs Low oxygen saturation Abnormal arterial blood gases Type II or unspecified type diabetes mellitus without mention of complication, uncontrolled Hyperlipidemia LDL goal < 70 Other and unspecified hyperlipidemia Nausea- Primary Nausea alone Type II or unspecified type diabetes mellitus without mention of complication, uncontrolled SOB (shortness of breath) on exertion Shortness of breath Urinary incontinence Unspecified urinary incontinence RLS (restless legs syndrome) Restless legs syndrome (RLS) Hypomagnesemia Disorders of magnesium metabolism Vitamin D deficiency Unspecified vitamin D deficiency Iron deficiency Iron deficiency anemia, unspecified Diabetes 1.5, 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HCC) Type II or unspecified type diabetes mellitus without mention of complication, not stated as uncontrolled SOB (shortness of breath) on exertion- Primary Shortness of breath ARIANA (obstructive sleep apnea) Obstructive sleep apnea (adult) (pediatric) Type II or unspecified type diabetes mellitus without mention of complication, uncontrolled Type II or unspecified type diabetes mellitus without mention of complication, uncontrolled- Primary ARIANA (obstructive sleep apnea) Obstructive sleep apnea (adult) (pediatric) Low oxygen saturation Abnormal arterial blood gases Obesity Obesity, unspecified Frequency of urination Urinary frequency Type II or unspecified type diabetes mellitus without mention of complication, uncontrolled- Primary Hyperlipidemia LDL goal < 70 Other and unspecified hyperlipidemia ARIANA (obstructive sleep apnea) Obstructive sleep apnea (adult) (pediatric) IBS (irritable bowel syndrome) Irritable bowel syndrome SOB (shortness of breath) on exertion Shortness of breath Parkinson disease (HCC) Paralysis agitans Obesity Obesity, unspecified Obesity- Primary Obesity, unspecified Cataracts, bilateral Unspecified cataract Low oxygen saturation Abnormal arterial blood gases Type II or unspecified type diabetes mellitus without mention of complication, uncontrolled Hyperlipidemia LDL goal < 70 Other and unspecified hyperlipidemia Hyperlipidemia LDL goal < 70- Primary Other and unspecified hyperlipidemia Type II or unspecified type diabetes mellitus without mention of complication, uncontrolled Tingling in extremities Disturbance of skin sensation Pain in limb Vitamin D deficiency Unspecified vitamin D deficiency Type II or unspecified type diabetes mellitus without mention of complication, uncontrolled- Primary Hyperlipidemia LDL goal < 70 Other and unspecified hyperlipidemia Pedal edema Edema Obesity Obesity, unspecified IBS (irritable bowel syndrome) Irritable bowel syndrome Hypertonicity of bladder Type II or unspecified type diabetes mellitus without mention of complication, uncontrolled- Primary Obesity Obesity, unspecified IBS (irritable bowel syndrome) Irritable bowel syndrome SOB (shortness of breath) on exertion Shortness of breath Hypertonicity of bladder Routine health maintenance Routine general medical examination at a health care facility Low oxygen saturation Abnormal arterial blood gases Low oxygen saturation- Primary Abnormal arterial blood gases ARIANA (obstructive sleep apnea) Obstructive sleep apnea (adult) (pediatric) Type II or unspecified type diabetes mellitus without mention of complication, uncontrolled Numbness and tingling in hands Disturbance of skin sensation Depression Depressive disorder, not elsewhere classified SOB (shortness of breath) on exertion- Primary Shortness of breath ARIANA (obstructive sleep apnea) Obstructive sleep apnea (adult) (pediatric) Type II or unspecified type diabetes mellitus without mention of complication, uncontrolled Obesity Obesity, unspecified Oxygen dependent Dependence on supplemental oxygen Vitamin D deficiency- Primary Unspecified vitamin D deficiency Type II or unspecified type diabetes mellitus without mention of complication, uncontrolled Low oxygen saturation Abnormal arterial blood gases Obesity Obesity, unspecified Pain in left knee- Primary Pain in joint, lower leg Morbid obesity, unspecified obesity type (HCC) Diabetes mellitus type 2, uncontrolled Type II or unspecified type diabetes mellitus without mention of complication, uncontrolled Tardive dyskinesia- Primary Subacute dyskinesia due to drugs Benign paroxysmal positional vertigo, unspecified laterality Diabetes mellitus type 2, uncontrolled Type II or unspecified type diabetes mellitus without mention of complication, uncontrolled ARIANA (obstructive sleep apnea) Obstructive sleep apnea (adult) (pediatric) Morbid obesity, unspecified obesity type ([facility]) Vaginal dryness Other specified symptom associated with female genital organs Diabetes mellitus type 2, uncontrolled- Primary Type II or unspecified type diabetes mellitus without mention of complication, uncontrolled Hyperlipidemia with target LDL less than 70 Other and unspecified hyperlipidemia Tardive dyskinesia Subacute dyskinesia due to drugs Primary insomnia Persistent disorder of initiating or maintaining sleep Incontinence of feces, unspecified fecal incontinence type- Primary Uncontrolled type 2 diabetes mellitus without complication, with long-term current use of insulin Class 2 obesity without serious comorbidity with body mass index (BMI) of 35.0 to 35.9 in adult, unspecified obesity type Tardive dyskinesia Subacute dyskinesia due to drugs RLS (restless legs syndrome) Restless legs syndrome (RLS) Hyperlipidemia with target LDL less than 70 Other and unspecified hyperlipidemia Pre-operative examination- Primary Preoperative examination, unspecified Chronic pain of left knee Pain in joint, lower leg Diabetes mellitus type 2 ([facility]) History of implantation of artificial sphincter Hyperlipidemia with target LDL less than 70 Other and unspecified hyperlipidemia Hypertonicity of bladder Incontinence of feces, unspecified fecal incontinence type ARIANA (obstructive sleep apnea) Obstructive sleep apnea (adult) (pediatric) Tardive dyskinesia Subacute dyskinesia due to drugs Obesity, Class III, BMI >= 40 (morbid obesity) ([facility]) E66.01 Morbid obesity S/P gastric sleeve procedure Gastroesophageal reflux disease, unspecified whether esophagitis present Swelling Edema PTSD (post-traumatic stress disorder) Posttraumatic stress disorder Pre-operative examination- Primary Preoperative examination, unspecified Diabetes mellitus type 2 ([facility]) Tardive dyskinesia Subacute dyskinesia due to drugs Swelling Edema S/P gastric sleeve procedure RLS (restless legs syndrome) Restless legs syndrome (RLS) PTSD (post-traumatic stress disorder) Posttraumatic stress disorder Primary osteoarthritis of left knee Primary localized osteoarthrosis, lower leg ARIANA (obstructive sleep apnea) Obstructive sleep apnea (adult) (pediatric) Incontinence of feces, unspecified fecal incontinence type Hypertonicity of bladder Hyperlipidemia with target LDL less than 70 Other and unspecified hyperlipidemia Gastroesophageal reflux disease, unspecified whether esophagitis present Encounter for screening mammogram for breast cancer [facility] Diagnosis Wheezing- Primary Tardive dyskinesia Subacute dyskinesia due to drugs Low O2 saturation Abnormal arterial blood gases 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 Low oxygen saturation Abnormal arterial blood gases Parkinson disease ([facility])- Primary Paralysis agitans Schizophrenia (HCC) Unspecified schizophrenia, unspecified condition Tardive dyskinesia Subacute dyskinesia due to drugs Low oxygen saturation Abnormal arterial blood gases Type II or unspecified type diabetes mellitus without mention of complication, uncontrolled Hyperlipidemia LDL goal < 70 Other and unspecified hyperlipidemia Nausea- Primary Nausea alone Type II or unspecified type diabetes mellitus without mention of complication, uncontrolled SOB (shortness of breath) on exertion Shortness of breath Urinary incontinence Unspecified urinary incontinence RLS (restless legs syndrome) Restless legs syndrome (RLS) Hypomagnesemia Disorders of magnesium metabolism Vitamin D deficiency Unspecified vitamin D deficiency Iron deficiency Iron deficiency anemia, unspecified Diabetes 1.5, 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HCC) Type II or unspecified type diabetes mellitus without mention of complication, not stated as uncontrolled SOB (shortness of breath) on exertion- Primary Shortness of breath ARIANA (obstructive sleep apnea) Obstructive sleep apnea (adult) (pediatric) Type II or unspecified type diabetes mellitus without mention of complication, uncontrolled Type II or unspecified type diabetes mellitus without mention of complication, uncontrolled- Primary ARIANA (obstructive sleep apnea) Obstructive sleep apnea (adult) (pediatric) Low oxygen saturation Abnormal arterial blood gases Obesity Obesity, unspecified Frequency of urination Urinary frequency Type II or unspecified type diabetes mellitus without mention of complication, uncontrolled- Primary Hyperlipidemia LDL goal < 70 Other and unspecified hyperlipidemia ARIANA (obstructive sleep apnea) Obstructive sleep apnea (adult) (pediatric) IBS (irritable bowel syndrome) Irritable bowel syndrome SOB (shortness of breath) on exertion Shortness of breath Parkinson disease (HCC) Paralysis agitans Obesity Obesity, unspecified Obesity- Primary Obesity, unspecified Cataracts, bilateral Unspecified cataract Low oxygen saturation Abnormal arterial blood gases Type II or unspecified type diabetes mellitus without mention of complication, uncontrolled Hyperlipidemia LDL goal < 70 Other and unspecified hyperlipidemia Hyperlipidemia LDL goal < 70- Primary Other and unspecified hyperlipidemia Type II or unspecified type diabetes mellitus without mention of complication, uncontrolled Tingling in extremities Disturbance of skin sensation Pain in limb Vitamin D deficiency Unspecified vitamin D deficiency Type II or unspecified type diabetes mellitus without mention of complication, uncontrolled- Primary Hyperlipidemia LDL goal < 70 Other and unspecified hyperlipidemia Pedal edema Edema Obesity Obesity, unspecified IBS (irritable bowel syndrome) Irritable bowel syndrome Hypertonicity of bladder Type II or unspecified type diabetes mellitus without mention of complication, uncontrolled- Primary Obesity Obesity, unspecified IBS (irritable bowel syndrome) Irritable bowel syndrome SOB (shortness of breath) on exertion Shortness of breath Hypertonicity of bladder Routine health maintenance Routine general medical examination at a health care facility Low oxygen saturation Abnormal arterial blood gases Low oxygen saturation- Primary Abnormal arterial blood gases ARIANA (obstructive sleep apnea) Obstructive sleep apnea (adult) (pediatric) Type II or unspecified type diabetes mellitus without mention of complication, uncontrolled Numbness and tingling in hands Disturbance of skin sensation Depression Depressive disorder, not elsewhere classified SOB (shortness of breath) on exertion- Primary Shortness of breath ARIANA (obstructive sleep apnea) Obstructive sleep apnea (adult) (pediatric) Type II or unspecified type diabetes mellitus without mention of complication, uncontrolled Obesity Obesity, unspecified Oxygen dependent Dependence on supplemental oxygen Vitamin D deficiency- Primary Unspecified vitamin D deficiency Type II or unspecified type diabetes mellitus without mention of complication, uncontrolled Low oxygen saturation Abnormal arterial blood gases Obesity Obesity, unspecified Pain in left knee- Primary Pain in joint, lower leg Morbid obesity, unspecified obesity type (HCC) Diabetes mellitus type 2, uncontrolled Type II or unspecified type diabetes mellitus without mention of complication, uncontrolled Tardive dyskinesia- Primary Subacute dyskinesia due to drugs Benign paroxysmal positional vertigo, unspecified laterality Diabetes mellitus type 2, uncontrolled Type II or unspecified type diabetes mellitus without mention of complication, uncontrolled ARIANA (obstructive sleep apnea) Obstructive sleep apnea (adult) (pediatric) Morbid obesity, unspecified obesity type (HCC) Vaginal dryness Other specified symptom associated with female genital organs Diabetes mellitus type 2, uncontrolled- Primary Type II or unspecified type diabetes mellitus without mention of complication, uncontrolled Hyperlipidemia with target LDL less than 70 Other and unspecified hyperlipidemia Tardive dyskinesia Subacute dyskinesia due to drugs Primary insomnia Persistent disorder of initiating or maintaining sleep Incontinence of feces, unspecified fecal incontinence type- Primary Uncontrolled type 2 diabetes mellitus without complication, with long-term current use of insulin Class 2 obesity without serious comorbidity with body mass index (BMI) of 35.0 to 35.9 in adult, unspecified obesity type Tardive dyskinesia Subacute dyskinesia due to drugs RLS (restless legs syndrome) Restless legs syndrome (RLS) Hyperlipidemia with target LDL less than 70 Other and unspecified hyperlipidemia Pre-operative examination- Primary Preoperative examination, unspecified Chronic pain of left knee Pain in joint, lower leg Diabetes mellitus type 2 (HCC) History of implantation of artificial sphincter Hyperlipidemia with target LDL less than 70 Other and unspecified hyperlipidemia Hypertonicity of bladder Incontinence of feces, unspecified fecal incontinence type ARIANA (obstructive sleep apnea) Obstructive sleep apnea (adult) (pediatric) Tardive dyskinesia Subacute dyskinesia due to drugs Obesity, Class III, BMI >= 40 (morbid obesity) ([facility]) E66.01 Morbid obesity S/P gastric sleeve procedure Gastroesophageal reflux disease, unspecified whether esophagitis present Swelling Edema PTSD (post-traumatic stress disorder) Posttraumatic stress disorder Pre-operative examination- Primary Preoperative examination, unspecified Diabetes mellitus type 2 ([facility]) Tardive dyskinesia Subacute dyskinesia due to drugs Swelling Edema S/P gastric sleeve procedure RLS (restless legs syndrome) Restless legs syndrome (RLS) PTSD (post-traumatic stress disorder) Posttraumatic stress disorder Primary osteoarthritis of left knee Primary localized osteoarthrosis, lower leg ARIANA (obstructive sleep apnea) Obstructive sleep apnea (adult) (pediatric) Incontinence of feces, unspecified fecal incontinence type Hypertonicity of bladder Hyperlipidemia with target LDL less than 70 Other and unspecified hyperlipidemia Gastroesophageal reflux disease, unspecified whether esophagitis present Asymptomatic menopause [facility] Diagnosis Wheezing- Primary Tardive dyskinesia Subacute dyskinesia due to drugs Low O2 saturation Abnormal arterial blood gases 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 Low oxygen saturation Abnormal arterial blood gases Parkinson disease ([facility])- Primary Paralysis agitans Schizophrenia ([facility]) Unspecified schizophrenia, unspecified condition Tardive dyskinesia Subacute dyskinesia due to drugs Low oxygen saturation Abnormal arterial blood gases Type II or unspecified type diabetes mellitus without mention of complication, uncontrolled Hyperlipidemia LDL goal < 70 Other and unspecified hyperlipidemia Nausea- Primary Nausea alone Type II or unspecified type diabetes mellitus without mention of complication, uncontrolled SOB (shortness of breath) on exertion Shortness of breath Urinary incontinence Unspecified urinary incontinence RLS (restless legs syndrome) Restless legs syndrome (RLS) Hypomagnesemia Disorders of magnesium metabolism Vitamin D deficiency Unspecified vitamin D deficiency Iron deficiency Iron deficiency anemia, unspecified Diabetes 1.5, 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[facility]) Type II or unspecified type diabetes mellitus without mention of complication, not stated as uncontrolled SOB (shortness of breath) on exertion- Primary Shortness of breath ARIANA (obstructive sleep apnea) Obstructive sleep apnea (adult) (pediatric) Type II or unspecified type diabetes mellitus without mention of complication, uncontrolled Type II or unspecified type diabetes mellitus without mention of complication, uncontrolled- Primary ARIANA (obstructive sleep apnea) Obstructive sleep apnea (adult) (pediatric) Low oxygen saturation Abnormal arterial blood gases Obesity Obesity, unspecified Frequency of urination Urinary frequency Type II or unspecified type diabetes mellitus without mention of complication, uncontrolled- Primary Hyperlipidemia LDL goal < 70 Other and unspecified hyperlipidemia ARIANA (obstructive sleep apnea) Obstructive sleep apnea (adult) (pediatric) IBS (irritable bowel syndrome) Irritable bowel syndrome SOB (shortness of breath) on exertion Shortness of breath Parkinson disease (HCC) Paralysis agitans Obesity Obesity, unspecified Obesity- Primary Obesity, unspecified Cataracts, bilateral Unspecified cataract Low oxygen saturation Abnormal arterial blood gases Type II or unspecified type diabetes mellitus without mention of complication, uncontrolled Hyperlipidemia LDL goal < 70 Other and unspecified hyperlipidemia Hyperlipidemia LDL goal < 70- Primary Other and unspecified hyperlipidemia Type II or unspecified type diabetes mellitus without mention of complication, uncontrolled Tingling in extremities Disturbance of skin sensation Pain in limb Vitamin D deficiency Unspecified vitamin D deficiency Type II or unspecified type diabetes mellitus without mention of complication, uncontrolled- Primary Hyperlipidemia LDL goal < 70 Other and unspecified hyperlipidemia Pedal edema Edema Obesity Obesity, unspecified IBS (irritable bowel syndrome) Irritable bowel syndrome Hypertonicity of bladder Type II or unspecified type diabetes mellitus without mention of complication, uncontrolled- Primary Obesity Obesity, unspecified IBS (irritable bowel syndrome) Irritable bowel syndrome SOB (shortness of breath) on exertion Shortness of breath Hypertonicity of bladder Routine health maintenance Routine general medical examination at a health care facility Low oxygen saturation Abnormal arterial blood gases Low oxygen saturation- Primary Abnormal arterial blood gases ARIANA (obstructive sleep apnea) Obstructive sleep apnea (adult) (pediatric) Type II or unspecified type diabetes mellitus without mention of complication, uncontrolled Numbness and tingling in hands Disturbance of skin sensation Depression Depressive disorder, not elsewhere classified SOB (shortness of breath) on exertion- Primary Shortness of breath ARIANA (obstructive sleep apnea) Obstructive sleep apnea (adult) (pediatric) Type II or unspecified type diabetes mellitus without mention of complication, uncontrolled Obesity Obesity, unspecified Oxygen dependent Dependence on supplemental oxygen Vitamin D deficiency- Primary Unspecified vitamin D deficiency Type II or unspecified type diabetes mellitus without mention of complication, uncontrolled Low oxygen saturation Abnormal arterial blood gases Obesity Obesity, unspecified Pain in left knee- Primary Pain in joint, lower leg Morbid obesity, unspecified obesity type (HCC) Diabetes mellitus type 2, uncontrolled Type II or unspecified type diabetes mellitus without mention of complication, uncontrolled Tardive dyskinesia- Primary Subacute dyskinesia due to drugs Benign paroxysmal positional vertigo, unspecified laterality Diabetes mellitus type 2, uncontrolled Type II or unspecified type diabetes mellitus without mention of complication, uncontrolled ARIANA (obstructive sleep apnea) Obstructive sleep apnea (adult) (pediatric) Morbid obesity, unspecified obesity type ([facility]) Vaginal dryness Other specified symptom associated with female genital organs Diabetes mellitus type 2, uncontrolled- Primary Type II or unspecified type diabetes mellitus without mention of complication, uncontrolled Hyperlipidemia with target LDL less than 70 Other and unspecified hyperlipidemia Tardive dyskinesia Subacute dyskinesia due to drugs Primary insomnia Persistent disorder of initiating or maintaining sleep Incontinence of feces, unspecified fecal incontinence type- Primary Uncontrolled type 2 diabetes mellitus without complication, with long-term current use of insulin Class 2 obesity without serious comorbidity with body mass index (BMI) of 35.0 to 35.9 in adult, unspecified obesity type Tardive dyskinesia Subacute dyskinesia due to drugs RLS (restless legs syndrome) Restless legs syndrome (RLS) Hyperlipidemia with target LDL less than 70 Other and unspecified hyperlipidemia Pre-operative examination- Primary Preoperative examination, unspecified Chronic pain of left knee Pain in joint, lower leg Diabetes mellitus type 2 ([facility]) History of implantation of artificial sphincter Hyperlipidemia with target LDL less than 70 Other and unspecified hyperlipidemia Hypertonicity of bladder Incontinence of feces, unspecified fecal incontinence type ARIANA (obstructive sleep apnea) Obstructive sleep apnea (adult) (pediatric) Tardive dyskinesia Subacute dyskinesia due to drugs Obesity, Class III, BMI >= 40 (morbid obesity) ([facility]) E66.01 Morbid obesity S/P gastric sleeve procedure Gastroesophageal reflux disease, unspecified whether esophagitis present Swelling Edema PTSD (post-traumatic stress disorder) Posttraumatic stress disorder Pre-operative examination- Primary Preoperative examination, unspecified Diabetes mellitus type 2 ([facility]) Tardive dyskinesia Subacute dyskinesia due to drugs Swelling Edema S/P gastric sleeve procedure RLS (restless legs syndrome) Restless legs syndrome (RLS) PTSD (post-traumatic stress disorder) Posttraumatic stress disorder Primary osteoarthritis of left knee Primary localized osteoarthrosis, lower leg ARIANA (obstructive sleep apnea) Obstructive sleep apnea (adult) (pediatric) Incontinence of feces, unspecified fecal incontinence type Hypertonicity of bladder Hyperlipidemia with target LDL less than 70 Other and unspecified hyperlipidemia Gastroesophageal reflux disease, unspecified whether esophagitis present Neuropathy Mononeuritis of unspecified site [facility] Wheezing- Primary Tardive dyskinesia Subacute dyskinesia due to drugs Low O2 saturation Abnormal arterial blood gases 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 Low oxygen saturation Abnormal arterial blood gases Parkinson disease (HCC)- Primary Paralysis agitans Schizophrenia (HCC) Unspecified schizophrenia, unspecified condition Tardive dyskinesia Subacute dyskinesia due to drugs Low oxygen saturation Abnormal arterial blood gases Type II or unspecified type diabetes mellitus without mention of complication, uncontrolled Hyperlipidemia LDL goal < 70 Other and unspecified hyperlipidemia Nausea- Primary Nausea alone Type II or unspecified type diabetes mellitus without mention of complication, uncontrolled SOB (shortness of breath) on exertion Shortness of breath Urinary incontinence Unspecified urinary incontinence RLS (restless legs syndrome) Restless legs syndrome (RLS) Hypomagnesemia Disorders of magnesium metabolism Vitamin D deficiency Unspecified vitamin D deficiency Iron deficiency Iron deficiency anemia, unspecified Diabetes 1.5, 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HCC) Type II or unspecified type diabetes mellitus without mention of complication, not stated as uncontrolled SOB (shortness of breath) on exertion- Primary Shortness of breath ARIANA (obstructive sleep apnea) Obstructive sleep apnea (adult) (pediatric) Type II or unspecified type diabetes mellitus without mention of complication, uncontrolled Type II or unspecified type diabetes mellitus without mention of complication, uncontrolled- Primary ARIANA (obstructive sleep apnea) Obstructive sleep apnea (adult) (pediatric) Low oxygen saturation Abnormal arterial blood gases Obesity Obesity, unspecified Frequency of urination Urinary frequency Type II or unspecified type diabetes mellitus without mention of complication, uncontrolled- Primary Hyperlipidemia LDL goal < 70 Other and unspecified hyperlipidemia ARIANA (obstructive sleep apnea) Obstructive sleep apnea (adult) (pediatric) IBS (irritable bowel syndrome) Irritable bowel syndrome SOB (shortness of breath) on exertion Shortness of breath Parkinson disease (HCC) Paralysis agitans Obesity Obesity, unspecified Obesity- Primary Obesity, unspecified Cataracts, bilateral Unspecified cataract Low oxygen saturation Abnormal arterial blood gases Type II or unspecified type diabetes mellitus without mention of complication, uncontrolled Hyperlipidemia LDL goal < 70 Other and unspecified hyperlipidemia Hyperlipidemia LDL goal < 70- Primary Other and unspecified hyperlipidemia Type II or unspecified type diabetes mellitus without mention of complication, uncontrolled Tingling in extremities Disturbance of skin sensation Pain in limb Vitamin D deficiency Unspecified vitamin D deficiency Type II or unspecified type diabetes mellitus without mention of complication, uncontrolled- Primary Hyperlipidemia LDL goal < 70 Other and unspecified hyperlipidemia Pedal edema Edema Obesity Obesity, unspecified IBS (irritable bowel syndrome) Irritable bowel syndrome Hypertonicity of bladder Type II or unspecified type diabetes mellitus without mention of complication, uncontrolled- Primary Obesity Obesity, unspecified IBS (irritable bowel syndrome) Irritable bowel syndrome SOB (shortness of breath) on exertion Shortness of breath Hypertonicity of bladder Routine health maintenance Routine general medical examination at a health care facility Low oxygen saturation Abnormal arterial blood gases Low oxygen saturation- Primary Abnormal arterial blood gases ARIANA (obstructive sleep apnea) Obstructive sleep apnea (adult) (pediatric) Type II or unspecified type diabetes mellitus without mention of complication, uncontrolled Numbness and tingling in hands Disturbance of skin sensation Depression Depressive disorder, not elsewhere classified SOB (shortness of breath) on exertion- Primary Shortness of breath AIRANA (obstructive sleep apnea) Obstructive sleep apnea (adult) (pediatric) Type II or unspecified type diabetes mellitus without mention of complication, uncontrolled Obesity Obesity, unspecified Oxygen dependent Dependence on supplemental oxygen Vitamin D deficiency- Primary Unspecified vitamin D deficiency Type II or unspecified type diabetes mellitus without mention of complication, uncontrolled Low oxygen saturation Abnormal arterial blood gases Obesity Obesity, unspecified Pain in left knee- Primary Pain in joint, lower leg Morbid obesity, unspecified obesity type (HCC) Diabetes mellitus type 2, uncontrolled Type II or unspecified type diabetes mellitus without mention of complication, uncontrolled Tardive dyskinesia- Primary Subacute dyskinesia due to drugs Benign paroxysmal positional vertigo, unspecified laterality Diabetes mellitus type 2, uncontrolled Type II or unspecified type diabetes mellitus without mention of complication, uncontrolled ARIANA (obstructive sleep apnea) Obstructive sleep apnea (adult) (pediatric) Morbid obesity, unspecified obesity type (HCC) Vaginal dryness Other specified symptom associated with female genital organs Diabetes mellitus type 2, uncontrolled- Primary Type II or unspecified type diabetes mellitus without mention of complication, uncontrolled Hyperlipidemia with target LDL less than 70 Other and unspecified hyperlipidemia Tardive dyskinesia Subacute dyskinesia due to drugs Primary insomnia Persistent disorder of initiating or maintaining sleep Incontinence of feces, unspecified fecal incontinence type- Primary Uncontrolled type 2 diabetes mellitus without complication, with long-term current use of insulin Class 2 obesity without serious comorbidity with body mass index (BMI) of 35.0 to 35.9 in adult, unspecified obesity type Tardive dyskinesia Subacute dyskinesia due to drugs RLS (restless legs syndrome) Restless legs syndrome (RLS) Hyperlipidemia with target LDL less than 70 Other and unspecified hyperlipidemia Pre-operative examination- Primary Preoperative examination, unspecified Chronic pain of left knee Pain in joint, lower leg Diabetes mellitus type 2 ([facility]) History of implantation of artificial sphincter Hyperlipidemia with target LDL less than 70 Other and unspecified hyperlipidemia Hypertonicity of bladder Incontinence of feces, unspecified fecal incontinence type ARIANA (obstructive sleep apnea) Obstructive sleep apnea (adult) (pediatric) Tardive dyskinesia Subacute dyskinesia due to drugs Obesity, Class III, BMI >= 40 (morbid obesity) ([facility]) E66.01 Morbid obesity S/P gastric sleeve procedure Gastroesophageal reflux disease, unspecified whether esophagitis present Swelling Edema PTSD (post-traumatic stress disorder) Posttraumatic stress disorder Pre-operative examination- Primary Preoperative examination, unspecified Diabetes mellitus type 2 ([facility]) Tardive dyskinesia Subacute dyskinesia due to drugs Swelling Edema S/P gastric sleeve procedure RLS (restless legs syndrome) Restless legs syndrome (RLS) PTSD (post-traumatic stress disorder) Posttraumatic stress disorder Primary osteoarthritis of left knee Primary localized osteoarthrosis, lower leg ARIANA (obstructive sleep apnea) Obstructive sleep apnea (adult) (pediatric) Incontinence of feces, unspecified fecal incontinence type Hypertonicity of bladder Hyperlipidemia with target LDL less than 70 Other and unspecified hyperlipidemia Gastroesophageal reflux disease, unspecified whether esophagitis present Ambulatory dysfunction- Primary Difficulty in walking Screening for depression Parkinson's disease, unspecified whether dyskinesia present, unspecified whether manifestations fluctuate ([facility]) Tardive dyskinesia Subacute dyskinesia due to drugs Diabetes mellitus type 2 ([facility]) Upper extremity weakness Other musculoskeletal symptoms referable to limbs Primary insomnia Persistent disorder of initiating or maintaining sleep Decreased hearing, left Impacted cerumen of left ear Impacted cerumen [facility] Diagnosis Wheezing- Primary Tardive dyskinesia Subacute dyskinesia due to drugs Low O2 saturation Abnormal arterial blood gases 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 Low oxygen saturation Abnormal arterial blood gases Parkinson disease ([facility])- Primary Paralysis agitans Schizophrenia ([facility]) Unspecified schizophrenia, unspecified condition Tardive dyskinesia Subacute dyskinesia due to drugs Low oxygen saturation Abnormal arterial blood gases Type II or unspecified type diabetes mellitus without mention of complication, uncontrolled Hyperlipidemia LDL goal < 70 Other and unspecified hyperlipidemia Nausea- Primary Nausea alone Type II or unspecified type diabetes mellitus without mention of complication, uncontrolled SOB (shortness of breath) on exertion Shortness of breath Urinary incontinence Unspecified urinary incontinence RLS (restless legs syndrome) Restless legs syndrome (RLS) Hypomagnesemia Disorders of magnesium metabolism Vitamin D deficiency Unspecified vitamin D deficiency Iron deficiency Iron deficiency anemia, unspecified Diabetes 1.5, 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HCC) Type II or unspecified type diabetes mellitus without mention of complication, not stated as uncontrolled SOB (shortness of breath) on exertion- Primary Shortness of breath ARIANA (obstructive sleep apnea) Obstructive sleep apnea (adult) (pediatric) Type II or unspecified type diabetes mellitus without mention of complication, uncontrolled Type II or unspecified type diabetes mellitus without mention of complication, uncontrolled- Primary ARIANA (obstructive sleep apnea) Obstructive sleep apnea (adult) (pediatric) Low oxygen saturation Abnormal arterial blood gases Obesity Obesity, unspecified Frequency of urination Urinary frequency Type II or unspecified type diabetes mellitus without mention of complication, uncontrolled- Primary Hyperlipidemia LDL goal < 70 Other and unspecified hyperlipidemia ARIANA (obstructive sleep apnea) Obstructive sleep apnea (adult) (pediatric) IBS (irritable bowel syndrome) Irritable bowel syndrome SOB (shortness of breath) on exertion Shortness of breath Parkinson disease (HCC) Paralysis agitans Obesity Obesity, unspecified Obesity- Primary Obesity, unspecified Cataracts, bilateral Unspecified cataract Low oxygen saturation Abnormal arterial blood gases Type II or unspecified type diabetes mellitus without mention of complication, uncontrolled Hyperlipidemia LDL goal < 70 Other and unspecified hyperlipidemia Hyperlipidemia LDL goal < 70- Primary Other and unspecified hyperlipidemia Type II or unspecified type diabetes mellitus without mention of complication, uncontrolled Tingling in extremities Disturbance of skin sensation Pain in limb Vitamin D deficiency Unspecified vitamin D deficiency Type II or unspecified type diabetes mellitus without mention of complication, uncontrolled- Primary Hyperlipidemia LDL goal < 70 Other and unspecified hyperlipidemia Pedal edema Edema Obesity Obesity, unspecified IBS (irritable bowel syndrome) Irritable bowel syndrome Hypertonicity of bladder Type II or unspecified type diabetes mellitus without mention of complication, uncontrolled- Primary Obesity Obesity, unspecified IBS (irritable bowel syndrome) Irritable bowel syndrome SOB (shortness of breath) on exertion Shortness of breath Hypertonicity of bladder Routine health maintenance Routine general medical examination at a health care facility Low oxygen saturation Abnormal arterial blood gases Low oxygen saturation- Primary Abnormal arterial blood gases ARIANA (obstructive sleep apnea) Obstructive sleep apnea (adult) (pediatric) Type II or unspecified type diabetes mellitus without mention of complication, uncontrolled Numbness and tingling in hands Disturbance of skin sensation Depression Depressive disorder, not elsewhere classified SOB (shortness of breath) on exertion- Primary Shortness of breath ARIANA (obstructive sleep apnea) Obstructive sleep apnea (adult) (pediatric) Type II or unspecified type diabetes mellitus without mention of complication, uncontrolled Obesity Obesity, unspecified Oxygen dependent Dependence on supplemental oxygen Vitamin D deficiency- Primary Unspecified vitamin D deficiency Type II or unspecified type diabetes mellitus without mention of complication, uncontrolled Low oxygen saturation Abnormal arterial blood gases Obesity Obesity, unspecified Pain in left knee- Primary Pain in joint, lower leg Morbid obesity, unspecified obesity type (HCC) Diabetes mellitus type 2, uncontrolled Type II or unspecified type diabetes mellitus without mention of complication, uncontrolled Tardive dyskinesia- Primary Subacute dyskinesia due to drugs Benign paroxysmal positional vertigo, unspecified laterality Diabetes mellitus type 2, uncontrolled Type II or unspecified type diabetes mellitus without mention of complication, uncontrolled ARIANA (obstructive sleep apnea) Obstructive sleep apnea (adult) (pediatric) Morbid obesity, unspecified obesity type (HCC) Vaginal dryness Other specified symptom associated with female genital organs Diabetes mellitus type 2, uncontrolled- Primary Type II or unspecified type diabetes mellitus without mention of complication, uncontrolled Hyperlipidemia with target LDL less than 70 Other and unspecified hyperlipidemia Tardive dyskinesia Subacute dyskinesia due to drugs Primary insomnia Persistent disorder of initiating or maintaining sleep Incontinence of feces, unspecified fecal incontinence type- Primary Uncontrolled type 2 diabetes mellitus without complication, with long-term current use of insulin Class 2 obesity without serious comorbidity with body mass index (BMI) of 35.0 to 35.9 in adult, unspecified obesity type Tardive dyskinesia Subacute dyskinesia due to drugs RLS (restless legs syndrome) Restless legs syndrome (RLS) Hyperlipidemia with target LDL less than 70 Other and unspecified hyperlipidemia Pre-operative examination- Primary Preoperative examination, unspecified Chronic pain of left knee Pain in joint, lower leg Diabetes mellitus type 2 ([facility]) History of implantation of artificial sphincter Hyperlipidemia with target LDL less than 70 Other and unspecified hyperlipidemia Hypertonicity of bladder Incontinence of feces, unspecified fecal incontinence type ARIANA (obstructive sleep apnea) Obstructive sleep apnea (adult) (pediatric) Tardive dyskinesia Subacute dyskinesia due to drugs Obesity, Class III, BMI >= 40 (morbid obesity) ([facility]) E66.01 Morbid obesity S/P gastric sleeve procedure Gastroesophageal reflux disease, unspecified whether esophagitis present Swelling Edema PTSD (post-traumatic stress disorder) Posttraumatic stress disorder Pre-operative examination- Primary Preoperative examination, unspecified Diabetes mellitus type 2 (HCC) Tardive dyskinesia Subacute dyskinesia due to drugs Swelling Edema S/P gastric sleeve procedure RLS (restless legs syndrome) Restless legs syndrome (RLS) PTSD (post-traumatic stress disorder) Posttraumatic stress disorder Primary osteoarthritis of left knee Primary localized osteoarthrosis, lower leg ARIANA (obstructive sleep apnea) Obstructive sleep apnea (adult) (pediatric) Incontinence of feces, unspecified fecal incontinence type Hypertonicity of bladder Hyperlipidemia with target LDL less than 70 Other and unspecified hyperlipidemia Gastroesophageal reflux disease, unspecified whether esophagitis present Hearing loss of left ear, unspecified hearing loss type- Primary Impacted cerumen of left ear Impacted cerumen [facility] Diagnosis Wheezing- Primary Tardive dyskinesia Subacute dyskinesia due to drugs Low O2 saturation Abnormal arterial blood gases 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 Low oxygen saturation Abnormal arterial blood gases Parkinson disease (HCC)- Primary Paralysis agitans Schizophrenia ([facility]) Unspecified schizophrenia, unspecified condition Tardive dyskinesia Subacute dyskinesia due to drugs Low oxygen saturation Abnormal arterial blood gases Type II or unspecified type diabetes mellitus without mention of complication, uncontrolled Hyperlipidemia LDL goal < 70 Other and unspecified hyperlipidemia Nausea- Primary Nausea alone Type II or unspecified type diabetes mellitus without mention of complication, uncontrolled SOB (shortness of breath) on exertion Shortness of breath Urinary incontinence Unspecified urinary incontinence RLS (restless legs syndrome) Restless legs syndrome (RLS) Hypomagnesemia Disorders of magnesium metabolism Vitamin D deficiency Unspecified vitamin D deficiency Iron deficiency Iron deficiency anemia, unspecified Diabetes 1.5, 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HCC) Type II or unspecified type diabetes mellitus without mention of complication, not stated as uncontrolled SOB (shortness of breath) on exertion- Primary Shortness of breath ARIANA (obstructive sleep apnea) Obstructive sleep apnea (adult) (pediatric) Type II or unspecified type diabetes mellitus without mention of complication, uncontrolled Type II or unspecified type diabetes mellitus without mention of complication, uncontrolled- Primary ARIANA (obstructive sleep apnea) Obstructive sleep apnea (adult) (pediatric) Low oxygen saturation Abnormal arterial blood gases Obesity Obesity, unspecified Frequency of urination Urinary frequency Type II or unspecified type diabetes mellitus without mention of complication, uncontrolled- Primary Hyperlipidemia LDL goal < 70 Other and unspecified hyperlipidemia ARIANA (obstructive sleep apnea) Obstructive sleep apnea (adult) (pediatric) IBS (irritable bowel syndrome) Irritable bowel syndrome SOB (shortness of breath) on exertion Shortness of breath Parkinson disease (HCC) Paralysis agitans Obesity Obesity, unspecified Obesity- Primary Obesity, unspecified Cataracts, bilateral Unspecified cataract Low oxygen saturation Abnormal arterial blood gases Type II or unspecified type diabetes mellitus without mention of complication, uncontrolled Hyperlipidemia LDL goal < 70 Other and unspecified hyperlipidemia Hyperlipidemia LDL goal < 70- Primary Other and unspecified hyperlipidemia Type II or unspecified type diabetes mellitus without mention of complication, uncontrolled Tingling in extremities Disturbance of skin sensation Pain in limb Vitamin D deficiency Unspecified vitamin D deficiency Type II or unspecified type diabetes mellitus without mention of complication, uncontrolled- Primary Hyperlipidemia LDL goal < 70 Other and unspecified hyperlipidemia Pedal edema Edema Obesity Obesity, unspecified IBS (irritable bowel syndrome) Irritable bowel syndrome Hypertonicity of bladder Type II or unspecified type diabetes mellitus without mention of complication, uncontrolled- Primary Obesity Obesity, unspecified IBS (irritable bowel syndrome) Irritable bowel syndrome SOB (shortness of breath) on exertion Shortness of breath Hypertonicity of bladder Routine health maintenance Routine general medical examination at a health care facility Low oxygen saturation Abnormal arterial blood gases Low oxygen saturation- Primary Abnormal arterial blood gases ARIANA (obstructive sleep apnea) Obstructive sleep apnea (adult) (pediatric) Type II or unspecified type diabetes mellitus without mention of complication, uncontrolled Numbness and tingling in hands Disturbance of skin sensation Depression Depressive disorder, not elsewhere classified SOB (shortness of breath) on exertion- Primary Shortness of breath ARIANA (obstructive sleep apnea) Obstructive sleep apnea (adult) (pediatric) Type II or unspecified type diabetes mellitus without mention of complication, uncontrolled Obesity Obesity, unspecified Oxygen dependent Dependence on supplemental oxygen Vitamin D deficiency- Primary Unspecified vitamin D deficiency Type II or unspecified type diabetes mellitus without mention of complication, uncontrolled Low oxygen saturation Abnormal arterial blood gases Obesity Obesity, unspecified Pain in left knee- Primary Pain in joint, lower leg Morbid obesity, unspecified obesity type (HCC) Diabetes mellitus type 2, uncontrolled Type II or unspecified type diabetes mellitus without mention of complication, uncontrolled Tardive dyskinesia- Primary Subacute dyskinesia due to drugs Benign paroxysmal positional vertigo, unspecified laterality Diabetes mellitus type 2, uncontrolled Type II or unspecified type diabetes mellitus without mention of complication, uncontrolled ARIANA (obstructive sleep apnea) Obstructive sleep apnea (adult) (pediatric) Morbid obesity, unspecified obesity type ([facility]) Vaginal dryness Other specified symptom associated with female genital organs Diabetes mellitus type 2, uncontrolled- Primary Type II or unspecified type diabetes mellitus without mention of complication, uncontrolled Hyperlipidemia with target LDL less than 70 Other and unspecified hyperlipidemia Tardive dyskinesia Subacute dyskinesia due to drugs Primary insomnia Persistent disorder of initiating or maintaining sleep Incontinence of feces, unspecified fecal incontinence type- Primary Uncontrolled type 2 diabetes mellitus without complication, with long-term current use of insulin Class 2 obesity without serious comorbidity with body mass index (BMI) of 35.0 to 35.9 in adult, unspecified obesity type Tardive dyskinesia Subacute dyskinesia due to drugs RLS (restless legs syndrome) Restless legs syndrome (RLS) Hyperlipidemia with target LDL less than 70 Other and unspecified hyperlipidemia Pre-operative examination- Primary Preoperative examination, unspecified Chronic pain of left knee Pain in joint, lower leg Diabetes mellitus type 2 ([facility]) History of implantation of artificial sphincter Hyperlipidemia with target LDL less than 70 Other and unspecified hyperlipidemia Hypertonicity of bladder Incontinence of feces, unspecified fecal incontinence type ARIANA (obstructive sleep apnea) Obstructive sleep apnea (adult) (pediatric) Tardive dyskinesia Subacute dyskinesia due to drugs Obesity, Class III, BMI >= 40 (morbid obesity) ([facility]) E66.01 Morbid obesity S/P gastric sleeve procedure Gastroesophageal reflux disease, unspecified whether esophagitis present Swelling Edema PTSD (post-traumatic stress disorder) Posttraumatic stress disorder Pre-operative examination- Primary Preoperative examination, unspecified Diabetes mellitus type 2 ([facility]) Tardive dyskinesia Subacute dyskinesia due to drugs Swelling Edema S/P gastric sleeve procedure RLS (restless legs syndrome) Restless legs syndrome (RLS) PTSD (post-traumatic stress disorder) Posttraumatic stress disorder Primary osteoarthritis of left knee Primary localized osteoarthrosis, lower leg ARIANA (obstructive sleep apnea) Obstructive sleep apnea (adult) (pediatric) Incontinence of feces, unspecified fecal incontinence type Hypertonicity of bladder Hyperlipidemia with target LDL less than 70 Other and unspecified hyperlipidemia Gastroesophageal reflux disease, unspecified whether esophagitis present Insomnia, unspecified [facility] Whee[facility]- Primary Tardive dyskinesia Subacute dyskinesia due to drugs Low O2 saturation Abnormal arterial blood gases 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 Low oxygen saturation Abnormal arterial blood gases Parkinson disease (HCC)- Primary Paralysis agitans Schizophrenia (HCC) Unspecified schizophrenia, unspecified condition Tardive dyskinesia Subacute dyskinesia due to drugs Low oxygen saturation Abnormal arterial blood gases Type II or unspecified type diabetes mellitus without mention of complication, uncontrolled Hyperlipidemia LDL goal < 70 Other and unspecified hyperlipidemia Nausea- Primary Nausea alone Type II or unspecified type diabetes mellitus without mention of complication, uncontrolled SOB (shortness of breath) on exertion Shortness of breath Urinary incontinence Unspecified urinary incontinence RLS (restless legs syndrome) Restless legs syndrome (RLS) Hypomagnesemia Disorders of magnesium metabolism Vitamin D deficiency Unspecified vitamin D deficiency Iron deficiency Iron deficiency anemia, unspecified Diabetes 1.5, 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HCC) Type II or unspecified type diabetes mellitus without mention of complication, not stated as uncontrolled SOB (shortness of breath) on exertion- Primary Shortness of breath ARIANA (obstructive sleep apnea) Obstructive sleep apnea (adult) (pediatric) Type II or unspecified type diabetes mellitus without mention of complication, uncontrolled Type II or unspecified type diabetes mellitus without mention of complication, uncontrolled- Primary ARIANA (obstructive sleep apnea) Obstructive sleep apnea (adult) (pediatric) Low oxygen saturation Abnormal arterial blood gases Obesity Obesity, unspecified Frequency of urination Urinary frequency Type II or unspecified type diabetes mellitus without mention of complication, uncontrolled- Primary Hyperlipidemia LDL goal < 70 Other and unspecified hyperlipidemia ARIANA (obstructive sleep apnea) Obstructive sleep apnea (adult) (pediatric) IBS (irritable bowel syndrome) Irritable bowel syndrome SOB (shortness of breath) on exertion Shortness of breath Parkinson disease (HCC) Paralysis agitans Obesity Obesity, unspecified Obesity- Primary Obesity, unspecified Cataracts, bilateral Unspecified cataract Low oxygen saturation Abnormal arterial blood gases Type II or unspecified type diabetes mellitus without mention of complication, uncontrolled Hyperlipidemia LDL goal < 70 Other and unspecified hyperlipidemia Hyperlipidemia LDL goal < 70- Primary Other and unspecified hyperlipidemia Type II or unspecified type diabetes mellitus without mention of complication, uncontrolled Tingling in extremities Disturbance of skin sensation Pain in limb Vitamin D deficiency Unspecified vitamin D deficiency Type II or unspecified type diabetes mellitus without mention of complication, uncontrolled- Primary Hyperlipidemia LDL goal < 70 Other and unspecified hyperlipidemia Pedal edema Edema Obesity Obesity, unspecified IBS (irritable bowel syndrome) Irritable bowel syndrome Hypertonicity of bladder Type II or unspecified type diabetes mellitus without mention of complication, uncontrolled- Primary Obesity Obesity, unspecified IBS (irritable bowel syndrome) Irritable bowel syndrome SOB (shortness of breath) on exertion Shortness of breath Hypertonicity of bladder Routine health maintenance Routine general medical examination at a health care facility Low oxygen saturation Abnormal arterial blood gases Low oxygen saturation- Primary Abnormal arterial blood gases ARIANA (obstructive sleep apnea) Obstructive sleep apnea (adult) (pediatric) Type II or unspecified type diabetes mellitus without mention of complication, uncontrolled Numbness and tingling in hands Disturbance of skin sensation Depression Depressive disorder, not elsewhere classified SOB (shortness of breath) on exertion- Primary Shortness of breath ARIANA (obstructive sleep apnea) Obstructive sleep apnea (adult) (pediatric) Type II or unspecified type diabetes mellitus without mention of complication, uncontrolled Obesity Obesity, unspecified Oxygen dependent Dependence on supplemental oxygen Vitamin D deficiency- Primary Unspecified vitamin D deficiency Type II or unspecified type diabetes mellitus without mention of complication, uncontrolled Low oxygen saturation Abnormal arterial blood gases Obesity Obesity, unspecified Pain in left knee- Primary Pain in joint, lower leg Morbid obesity, unspecified obesity type (HCC) Diabetes mellitus type 2, uncontrolled Type II or unspecified type diabetes mellitus without mention of complication, uncontrolled Tardive dyskinesia- Primary Subacute dyskinesia due to drugs Benign paroxysmal positional vertigo, unspecified laterality Diabetes mellitus type 2, uncontrolled Type II or unspecified type diabetes mellitus without mention of complication, uncontrolled ARIANA (obstructive sleep apnea) Obstructive sleep apnea (adult) (pediatric) Morbid obesity, unspecified obesity type (HCC) Vaginal dryness Other specified symptom associated with female genital organs Diabetes mellitus type 2, uncontrolled- Primary Type II or unspecified type diabetes mellitus without mention of complication, uncontrolled Hyperlipidemia with target LDL less than 70 Other and unspecified hyperlipidemia Tardive dyskinesia Subacute dyskinesia due to drugs Primary insomnia Persistent disorder of initiating or maintaining sleep Incontinence of feces, unspecified fecal incontinence type- Primary Uncontrolled type 2 diabetes mellitus without complication, with long-term current use of insulin Class 2 obesity without serious comorbidity with body mass index (BMI) of 35.0 to 35.9 in adult, unspecified obesity type Tardive dyskinesia Subacute dyskinesia due to drugs RLS (restless legs syndrome) Restless legs syndrome (RLS) Hyperlipidemia with target LDL less than 70 Other and unspecified hyperlipidemia Pre-operative examination- Primary Preoperative examination, unspecified Chronic pain of left knee Pain in joint, lower leg Diabetes mellitus type 2 ([facility]) History of implantation of artificial sphincter Hyperlipidemia with target LDL less than 70 Other and unspecified hyperlipidemia Hypertonicity of bladder Incontinence of feces, unspecified fecal incontinence type ARIANA (obstructive sleep apnea) Obstructive sleep apnea (adult) (pediatric) Tardive dyskinesia Subacute dyskinesia due to drugs Obesity, Class III, BMI >= 40 (morbid obesity) ([facility]) E66.01 Morbid obesity S/P gastric sleeve procedure Gastroesophageal reflux disease, unspecified whether esophagitis present Swelling Edema PTSD (post-traumatic stress disorder) Posttraumatic stress disorder Pre-operative examination- Primary Preoperative examination, unspecified Diabetes mellitus type 2 ([facility]) Tardive dyskinesia Subacute dyskinesia due to drugs Swelling Edema S/P gastric sleeve procedure RLS (restless legs syndrome) Restless legs syndrome (RLS) PTSD (post-traumatic stress disorder) Posttraumatic stress disorder Primary osteoarthritis of left knee Primary localized osteoarthrosis, lower leg ARIANA (obstructive sleep apnea) Obstructive sleep apnea (adult) (pediatric) Incontinence of feces, unspecified fecal incontinence type Hypertonicity of bladder Hyperlipidemia with target LDL less than 70 Other and unspecified hyperlipidemia Gastroesophageal reflux disease, unspecified whether esophagitis present Depression with anxiety Dysthymic [facility] Diagnosis Wheezing- Primary Tardive dyskinesia Subacute dyskinesia due to drugs Low O2 saturation Abnormal arterial blood gases 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 Low oxygen saturation Abnormal arterial blood gases Parkinson disease ([facility])- Primary Paralysis agitans Schizophrenia ([facility]) Unspecified schizophrenia, unspecified condition Tardive dyskinesia Subacute dyskinesia due to drugs Low oxygen saturation Abnormal arterial blood gases Type II or unspecified type diabetes mellitus without mention of complication, uncontrolled Hyperlipidemia LDL goal < 70 Other and unspecified hyperlipidemia Nausea- Primary Nausea alone Type II or unspecified type diabetes mellitus without mention of complication, uncontrolled SOB (shortness of breath) on exertion Shortness of breath Urinary incontinence Unspecified urinary incontinence RLS (restless legs syndrome) Restless legs syndrome (RLS) Hypomagnesemia Disorders of magnesium metabolism Vitamin D deficiency Unspecified vitamin D deficiency Iron deficiency Iron deficiency anemia, unspecified Diabetes 1.5, 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[facility]) Type II or unspecified type diabetes mellitus without mention of complication, not stated as uncontrolled SOB (shortness of breath) on exertion- Primary Shortness of breath ARIANA (obstructive sleep apnea) Obstructive sleep apnea (adult) (pediatric) Type II or unspecified type diabetes mellitus without mention of complication, uncontrolled Type II or unspecified type diabetes mellitus without mention of complication, uncontrolled- Primary ARIANA (obstructive sleep apnea) Obstructive sleep apnea (adult) (pediatric) Low oxygen saturation Abnormal arterial blood gases Obesity Obesity, unspecified Frequency of urination Urinary frequency Type II or unspecified type diabetes mellitus without mention of complication, uncontrolled- Primary Hyperlipidemia LDL goal < 70 Other and unspecified hyperlipidemia ARIANA (obstructive sleep apnea) Obstructive sleep apnea (adult) (pediatric) IBS (irritable bowel syndrome) Irritable bowel syndrome SOB (shortness of breath) on exertion Shortness of breath Parkinson disease (HCC) Paralysis agitans Obesity Obesity, unspecified Obesity- Primary Obesity, unspecified Cataracts, bilateral Unspecified cataract Low oxygen saturation Abnormal arterial blood gases Type II or unspecified type diabetes mellitus without mention of complication, uncontrolled Hyperlipidemia LDL goal < 70 Other and unspecified hyperlipidemia Hyperlipidemia LDL goal < 70- Primary Other and unspecified hyperlipidemia Type II or unspecified type diabetes mellitus without mention of complication, uncontrolled Tingling in extremities Disturbance of skin sensation Pain in limb Vitamin D deficiency Unspecified vitamin D deficiency Type II or unspecified type diabetes mellitus without mention of complication, uncontrolled- Primary Hyperlipidemia LDL goal < 70 Other and unspecified hyperlipidemia Pedal edema Edema Obesity Obesity, unspecified IBS (irritable bowel syndrome) Irritable bowel syndrome Hypertonicity of bladder Type II or unspecified type diabetes mellitus without mention of complication, uncontrolled- Primary Obesity Obesity, unspecified IBS (irritable bowel syndrome) Irritable bowel syndrome SOB (shortness of breath) on exertion Shortness of breath Hypertonicity of bladder Routine health maintenance Routine general medical examination at a health care facility Low oxygen saturation Abnormal arterial blood gases Low oxygen saturation- Primary Abnormal arterial blood gases ARIANA (obstructive sleep apnea) Obstructive sleep apnea (adult) (pediatric) Type II or unspecified type diabetes mellitus without mention of complication, uncontrolled Numbness and tingling in hands Disturbance of skin sensation Depression Depressive disorder, not elsewhere classified SOB (shortness of breath) on exertion- Primary Shortness of breath ARIANA (obstructive sleep apnea) Obstructive sleep apnea (adult) (pediatric) Type II or unspecified type diabetes mellitus without mention of complication, uncontrolled Obesity Obesity, unspecified Oxygen dependent Dependence on supplemental oxygen Vitamin D deficiency- Primary Unspecified vitamin D deficiency Type II or unspecified type diabetes mellitus without mention of complication, uncontrolled Low oxygen saturation Abnormal arterial blood gases Obesity Obesity, unspecified Pain in left knee- Primary Pain in joint, lower leg Morbid obesity, unspecified obesity type ([facility]) Diabetes mellitus type 2, uncontrolled Type II or unspecified type diabetes mellitus without mention of complication, uncontrolled Tardive dyskinesia- Primary Subacute dyskinesia due to drugs Benign paroxysmal positional vertigo, unspecified laterality Diabetes mellitus type 2, uncontrolled Type II or unspecified type diabetes mellitus without mention of complication, uncontrolled ARIANA (obstructive sleep apnea) Obstructive sleep apnea (adult) (pediatric) Morbid obesity, unspecified obesity type ([facility]) Vaginal dryness Other specified symptom associated with female genital organs Diabetes mellitus type 2, uncontrolled- Primary Type II or unspecified type diabetes mellitus without mention of complication, uncontrolled Hyperlipidemia with target LDL less than 70 Other and unspecified hyperlipidemia Tardive dyskinesia Subacute dyskinesia due to drugs Primary insomnia Persistent disorder of initiating or maintaining sleep Incontinence of feces, unspecified fecal incontinence type- Primary Uncontrolled type 2 diabetes mellitus without complication, with long-term current use of insulin Class 2 obesity without serious comorbidity with body mass index (BMI) of 35.0 to 35.9 in adult, unspecified obesity type Tardive dyskinesia Subacute dyskinesia due to drugs RLS (restless legs syndrome) Restless legs syndrome (RLS) Hyperlipidemia with target LDL less than 70 Other and unspecified hyperlipidemia Pre-operative examination- Primary Preoperative examination, unspecified Chronic pain of left knee Pain in joint, lower leg Diabetes mellitus type 2 ([facility]) History of implantation of artificial sphincter Hyperlipidemia with target LDL less than 70 Other and unspecified hyperlipidemia Hypertonicity of bladder Incontinence of feces, unspecified fecal incontinence type ARIANA (obstructive sleep apnea) Obstructive sleep apnea (adult) (pediatric) Tardive dyskinesia Subacute dyskinesia due to drugs Obesity, Class III, BMI >= 40 (morbid obesity) ([facility]) E66.01 Morbid obesity S/P gastric sleeve procedure Gastroesophageal reflux disease, unspecified whether esophagitis present Swelling Edema PTSD (post-traumatic stress disorder) Posttraumatic stress disorder Pre-operative examination- Primary Preoperative examination, unspecified Diabetes mellitus type 2 ([facility]) Tardive dyskinesia Subacute dyskinesia due to drugs Swelling Edema S/P gastric sleeve procedure RLS (restless legs syndrome) Restless legs syndrome (RLS) PTSD (post-traumatic stress disorder) Posttraumatic stress disorder Primary osteoarthritis of left knee Primary localized osteoarthrosis, lower leg ARIANA (obstructive sleep apnea) Obstructive sleep apnea (adult) (pediatric) Incontinence of feces, unspecified fecal incontinence type Hypertonicity of bladder Hyperlipidemia with target LDL less than 70 Other and unspecified hyperlipidemia Gastroesophageal reflux disease, unspecified whether esophagitis present Cough Rhinorrhea Other diseases of nasal cavity and sinuses [facility] Diagnosis Wheezing- Primary Tardive dyskinesia Subacute dyskinesia due to drugs Low O2 saturation Abnormal arterial blood gases 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 Low oxygen saturation Abnormal arterial blood gases Parkinson disease (HCC)- Primary Paralysis agitans Schizophrenia (HCC) Unspecified schizophrenia, unspecified condition Tardive dyskinesia Subacute dyskinesia due to drugs Low oxygen saturation Abnormal arterial blood gases Type II or unspecified type diabetes mellitus without mention of complication, uncontrolled Hyperlipidemia LDL goal < 70 Other and unspecified hyperlipidemia Nausea- Primary Nausea alone Type II or unspecified type diabetes mellitus without mention of complication, uncontrolled SOB (shortness of breath) on exertion Shortness of breath Urinary incontinence Unspecified urinary incontinence RLS (restless legs syndrome) Restless legs syndrome (RLS) Hypomagnesemia Disorders of magnesium metabolism Vitamin D deficiency Unspecified vitamin D deficiency Iron deficiency Iron deficiency anemia, unspecified Diabetes 1.5, 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HCC) Type II or unspecified type diabetes mellitus without mention of complication, not stated as uncontrolled SOB (shortness of breath) on exertion- Primary Shortness of breath ARIANA (obstructive sleep apnea) Obstructive sleep apnea (adult) (pediatric) Type II or unspecified type diabetes mellitus without mention of complication, uncontrolled Type II or unspecified type diabetes mellitus without mention of complication, uncontrolled- Primary ARIANA (obstructive sleep apnea) Obstructive sleep apnea (adult) (pediatric) Low oxygen saturation Abnormal arterial blood gases Obesity Obesity, unspecified Frequency of urination Urinary frequency Type II or unspecified type diabetes mellitus without mention of complication, uncontrolled- Primary Hyperlipidemia LDL goal < 70 Other and unspecified hyperlipidemia ARIANA (obstructive sleep apnea) Obstructive sleep apnea (adult) (pediatric) IBS (irritable bowel syndrome) Irritable bowel syndrome SOB (shortness of breath) on exertion Shortness of breath Parkinson disease (HCC) Paralysis agitans Obesity Obesity, unspecified Obesity- Primary Obesity, unspecified Cataracts, bilateral Unspecified cataract Low oxygen saturation Abnormal arterial blood gases Type II or unspecified type diabetes mellitus without mention of complication, uncontrolled Hyperlipidemia LDL goal < 70 Other and unspecified hyperlipidemia Hyperlipidemia LDL goal < 70- Primary Other and unspecified hyperlipidemia Type II or unspecified type diabetes mellitus without mention of complication, uncontrolled Tingling in extremities Disturbance of skin sensation Pain in limb Vitamin D deficiency Unspecified vitamin D deficiency Type II or unspecified type diabetes mellitus without mention of complication, uncontrolled- Primary Hyperlipidemia LDL goal < 70 Other and unspecified hyperlipidemia Pedal edema Edema Obesity Obesity, unspecified IBS (irritable bowel syndrome) Irritable bowel syndrome Hypertonicity of bladder Type II or unspecified type diabetes mellitus without mention of complication, uncontrolled- Primary Obesity Obesity, unspecified IBS (irritable bowel syndrome) Irritable bowel syndrome SOB (shortness of breath) on exertion Shortness of breath Hypertonicity of bladder Routine health maintenance Routine general medical examination at a health care facility Low oxygen saturation Abnormal arterial blood gases Low oxygen saturation- Primary Abnormal arterial blood gases ARIANA (obstructive sleep apnea) Obstructive sleep apnea (adult) (pediatric) Type II or unspecified type diabetes mellitus without mention of complication, uncontrolled Numbness and tingling in hands Disturbance of skin sensation Depression Depressive disorder, not elsewhere classified SOB (shortness of breath) on exertion- Primary Shortness of breath ARIANA (obstructive sleep apnea) Obstructive sleep apnea (adult) (pediatric) Type II or unspecified type diabetes mellitus without mention of complication, uncontrolled Obesity Obesity, unspecified Oxygen dependent Dependence on supplemental oxygen Vitamin D deficiency- Primary Unspecified vitamin D deficiency Type II or unspecified type diabetes mellitus without mention of complication, uncontrolled Low oxygen saturation Abnormal arterial blood gases Obesity Obesity, unspecified Pain in left knee- Primary Pain in joint, lower leg Morbid obesity, unspecified obesity type (HCC) Diabetes mellitus type 2, uncontrolled Type II or unspecified type diabetes mellitus without mention of complication, uncontrolled Tardive dyskinesia- Primary Subacute dyskinesia due to drugs Benign paroxysmal positional vertigo, unspecified laterality Diabetes mellitus type 2, uncontrolled Type II or unspecified type diabetes mellitus without mention of complication, uncontrolled ARIANA (obstructive sleep apnea) Obstructive sleep apnea (adult) (pediatric) Morbid obesity, unspecified obesity type (HCC) Vaginal dryness Other specified symptom associated with female genital organs Diabetes mellitus type 2, uncontrolled- Primary Type II or unspecified type diabetes mellitus without mention of complication, uncontrolled Hyperlipidemia with target LDL less than 70 Other and unspecified hyperlipidemia Tardive dyskinesia Subacute dyskinesia due to drugs Primary insomnia Persistent disorder of initiating or maintaining sleep Incontinence of feces, unspecified fecal incontinence type- Primary Uncontrolled type 2 diabetes mellitus without complication, with long-term current use of insulin Class 2 obesity without serious comorbidity with body mass index (BMI) of 35.0 to 35.9 in adult, unspecified obesity type Tardive dyskinesia Subacute dyskinesia due to drugs RLS (restless legs syndrome) Restless legs syndrome (RLS) Hyperlipidemia with target LDL less than 70 Other and unspecified hyperlipidemia Pre-operative examination- Primary Preoperative examination, unspecified Chronic pain of left knee Pain in joint, lower leg Diabetes mellitus type 2 ([facility]) History of implantation of artificial sphincter Hyperlipidemia with target LDL less than 70 Other and unspecified hyperlipidemia Hypertonicity of bladder Incontinence of feces, unspecified fecal incontinence type ARIANA (obstructive sleep apnea) Obstructive sleep apnea (adult) (pediatric) Tardive dyskinesia Subacute dyskinesia due to drugs Obesity, Class III, BMI >= 40 (morbid obesity) ([facility]) E66.01 Morbid obesity S/P gastric sleeve procedure Gastroesophageal reflux disease, unspecified whether esophagitis present Swelling Edema PTSD (post-traumatic stress disorder) Posttraumatic stress disorder Pre-operative examination- Primary Preoperative examination, unspecified Diabetes mellitus type 2 ([facility]) Tardive dyskinesia Subacute dyskinesia due to drugs Swelling Edema S/P gastric sleeve procedure RLS (restless legs syndrome) Restless legs syndrome (RLS) PTSD (post-traumatic stress disorder) Posttraumatic stress disorder Primary osteoarthritis of left knee Primary localized osteoarthrosis, lower leg ARIANA (obstructive sleep apnea) Obstructive sleep apnea (adult) (pediatric) Incontinence of feces, unspecified fecal incontinence type Hypertonicity of bladder Hyperlipidemia with target LDL less than 70 Other and unspecified hyperlipidemia Gastroesophageal reflux disease, unspecified whether esophagitis present Uncontrolled type 2 diabetes mellitus with hyperglycemia ([facility]) [facility] Wheezing- Primary Tardive dyskinesia Subacute dyskinesia due to drugs Low O2 saturation Abnormal arterial blood gases 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 Low oxygen saturation Abnormal arterial blood gases Parkinson disease (HCC)- Primary Paralysis agitans Schizophrenia ([facility]) Unspecified schizophrenia, unspecified condition Tardive dyskinesia Subacute dyskinesia due to drugs Low oxygen saturation Abnormal arterial blood gases Type II or unspecified type diabetes mellitus without mention of complication, uncontrolled Hyperlipidemia LDL goal < 70 Other and unspecified hyperlipidemia Nausea- Primary Nausea alone Type II or unspecified type diabetes mellitus without mention of complication, uncontrolled SOB (shortness of breath) on exertion Shortness of breath Urinary incontinence Unspecified urinary incontinence RLS (restless legs syndrome) Restless legs syndrome (RLS) Hypomagnesemia Disorders of magnesium metabolism Vitamin D deficiency Unspecified vitamin D deficiency Iron deficiency Iron deficiency anemia, unspecified Diabetes 1.5, 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HCC) Type II or unspecified type diabetes mellitus without mention of complication, not stated as uncontrolled SOB (shortness of breath) on exertion- Primary Shortness of breath ARIANA (obstructive sleep apnea) Obstructive sleep apnea (adult) (pediatric) Type II or unspecified type diabetes mellitus without mention of complication, uncontrolled Type II or unspecified type diabetes mellitus without mention of complication, uncontrolled- Primary ARAINA (obstructive sleep apnea) Obstructive sleep apnea (adult) (pediatric) Low oxygen saturation Abnormal arterial blood gases Obesity Obesity, unspecified Frequency of urination Urinary frequency Type II or unspecified type diabetes mellitus without mention of complication, uncontrolled- Primary Hyperlipidemia LDL goal < 70 Other and unspecified hyperlipidemia ARIANA (obstructive sleep apnea) Obstructive sleep apnea (adult) (pediatric) IBS (irritable bowel syndrome) Irritable bowel syndrome SOB (shortness of breath) on exertion Shortness of breath Parkinson disease (HCC) Paralysis agitans Obesity Obesity, unspecified Obesity- Primary Obesity, unspecified Cataracts, bilateral Unspecified cataract Low oxygen saturation Abnormal arterial blood gases Type II or unspecified type diabetes mellitus without mention of complication, uncontrolled Hyperlipidemia LDL goal < 70 Other and unspecified hyperlipidemia Hyperlipidemia LDL goal < 70- Primary Other and unspecified hyperlipidemia Type II or unspecified type diabetes mellitus without mention of complication, uncontrolled Tingling in extremities Disturbance of skin sensation Pain in limb Vitamin D deficiency Unspecified vitamin D deficiency Type II or unspecified type diabetes mellitus without mention of complication, uncontrolled- Primary Hyperlipidemia LDL goal < 70 Other and unspecified hyperlipidemia Pedal edema Edema Obesity Obesity, unspecified IBS (irritable bowel syndrome) Irritable bowel syndrome Hypertonicity of bladder Type II or unspecified type diabetes mellitus without mention of complication, uncontrolled- Primary Obesity Obesity, unspecified IBS (irritable bowel syndrome) Irritable bowel syndrome SOB (shortness of breath) on exertion Shortness of breath Hypertonicity of bladder Routine health maintenance Routine general medical examination at a health care facility Low oxygen saturation Abnormal arterial blood gases Low oxygen saturation- Primary Abnormal arterial blood gases ARIANA (obstructive sleep apnea) Obstructive sleep apnea (adult) (pediatric) Type II or unspecified type diabetes mellitus without mention of complication, uncontrolled Numbness and tingling in hands Disturbance of skin sensation Depression Depressive disorder, not elsewhere classified SOB (shortness of breath) on exertion- Primary Shortness of breath ARIANA (obstructive sleep apnea) Obstructive sleep apnea (adult) (pediatric) Type II or unspecified type diabetes mellitus without mention of complication, uncontrolled Obesity Obesity, unspecified Oxygen dependent Dependence on supplemental oxygen Vitamin D deficiency- Primary Unspecified vitamin D deficiency Type II or unspecified type diabetes mellitus without mention of complication, uncontrolled Low oxygen saturation Abnormal arterial blood gases Obesity Obesity, unspecified Pain in left knee- Primary Pain in joint, lower leg Morbid obesity, unspecified obesity type ([facility]) Diabetes mellitus type 2, uncontrolled Type II or unspecified type diabetes mellitus without mention of complication, uncontrolled Tardive dyskinesia- Primary Subacute dyskinesia due to drugs Benign paroxysmal positional vertigo, unspecified laterality Diabetes mellitus type 2, uncontrolled Type II or unspecified type diabetes mellitus without mention of complication, uncontrolled ARIANA (obstructive sleep apnea) Obstructive sleep apnea (adult) (pediatric) Morbid obesity, unspecified obesity type ([facility]) Vaginal dryness Other specified symptom associated with female genital organs Diabetes mellitus type 2, uncontrolled- Primary Type II or unspecified type diabetes mellitus without mention of complication, uncontrolled Hyperlipidemia with target LDL less than 70 Other and unspecified hyperlipidemia Tardive dyskinesia Subacute dyskinesia due to drugs Primary insomnia Persistent disorder of initiating or maintaining sleep Incontinence of feces, unspecified fecal incontinence type- Primary Uncontrolled type 2 diabetes mellitus without complication, with long-term current use of insulin Class 2 obesity without serious comorbidity with body mass index (BMI) of 35.0 to 35.9 in adult, unspecified obesity type Tardive dyskinesia Subacute dyskinesia due to drugs RLS (restless legs syndrome) Restless legs syndrome (RLS) Hyperlipidemia with target LDL less than 70 Other and unspecified hyperlipidemia Pre-operative examination- Primary Preoperative examination, unspecified Chronic pain of left knee Pain in joint, lower leg Diabetes mellitus type 2 ([facility]) History of implantation of artificial sphincter Hyperlipidemia with target LDL less than 70 Other and unspecified hyperlipidemia Hypertonicity of bladder Incontinence of feces, unspecified fecal incontinence type ARIANA (obstructive sleep apnea) Obstructive sleep apnea (adult) (pediatric) Tardive dyskinesia Subacute dyskinesia due to drugs Obesity, Class III, BMI >= 40 (morbid obesity) ([facility]) E66.01 Morbid obesity S/P gastric sleeve procedure Gastroesophageal reflux disease, unspecified whether esophagitis present Swelling Edema PTSD (post-traumatic stress disorder) Posttraumatic stress disorder Pre-operative examination- Primary Preoperative examination, unspecified Diabetes mellitus type 2 (HCC) Tardive dyskinesia Subacute dyskinesia due to drugs Swelling Edema S/P gastric sleeve procedure RLS (restless legs syndrome) Restless legs syndrome (RLS) PTSD (post-traumatic stress disorder) Posttraumatic stress disorder Primary osteoarthritis of left knee Primary localized osteoarthrosis, lower leg ARIANA (obstructive sleep apnea) Obstructive sleep apnea (adult) (pediatric) Incontinence of feces, unspecified fecal incontinence type Hypertonicity of bladder Hyperlipidemia with target LDL less than 70 Other and unspecified hyperlipidemia Gastroesophageal reflux disease, unspecified whether esophagitis present Insomnia, unspecified type [facility] Diagnosis Wheezing- Primary Tardive dyskinesia Subacute dyskinesia due to drugs Low O2 saturation Abnormal arterial blood gases 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 Low oxygen saturation Abnormal arterial blood gases Parkinson disease ([facility])- Primary Paralysis agitans Schizophrenia ([facility]) Unspecified schizophrenia, unspecified condition Tardive dyskinesia Subacute dyskinesia due to drugs Low oxygen saturation Abnormal arterial blood gases Type II or unspecified type diabetes mellitus without mention of complication, uncontrolled Hyperlipidemia LDL goal < 70 Other and unspecified hyperlipidemia Nausea- Primary Nausea alone Type II or unspecified type diabetes mellitus without mention of complication, uncontrolled SOB (shortness of breath) on exertion Shortness of breath Urinary incontinence Unspecified urinary incontinence RLS (restless legs syndrome) Restless legs syndrome (RLS) Hypomagnesemia Disorders of magnesium metabolism Vitamin D deficiency Unspecified vitamin D deficiency Iron deficiency Iron deficiency anemia, unspecified Diabetes 1.5, 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HCC) Type II or unspecified type diabetes mellitus without mention of complication, not stated as uncontrolled SOB (shortness of breath) on exertion- Primary Shortness of breath ARIANA (obstructive sleep apnea) Obstructive sleep apnea (adult) (pediatric) Type II or unspecified type diabetes mellitus without mention of complication, uncontrolled Type II or unspecified type diabetes mellitus without mention of complication, uncontrolled- Primary ARIANA (obstructive sleep apnea) Obstructive sleep apnea (adult) (pediatric) Low oxygen saturation Abnormal arterial blood gases Obesity Obesity, unspecified Frequency of urination Urinary frequency Type II or unspecified type diabetes mellitus without mention of complication, uncontrolled- Primary Hyperlipidemia LDL goal < 70 Other and unspecified hyperlipidemia ARIANA (obstructive sleep apnea) Obstructive sleep apnea (adult) (pediatric) IBS (irritable bowel syndrome) Irritable bowel syndrome SOB (shortness of breath) on exertion Shortness of breath Parkinson disease (HCC) Paralysis agitans Obesity Obesity, unspecified Obesity- Primary Obesity, unspecified Cataracts, bilateral Unspecified cataract Low oxygen saturation Abnormal arterial blood gases Type II or unspecified type diabetes mellitus without mention of complication, uncontrolled Hyperlipidemia LDL goal < 70 Other and unspecified hyperlipidemia Hyperlipidemia LDL goal < 70- Primary Other and unspecified hyperlipidemia Type II or unspecified type diabetes mellitus without mention of complication, uncontrolled Tingling in extremities Disturbance of skin sensation Pain in limb Vitamin D deficiency Unspecified vitamin D deficiency Type II or unspecified type diabetes mellitus without mention of complication, uncontrolled- Primary Hyperlipidemia LDL goal < 70 Other and unspecified hyperlipidemia Pedal edema Edema Obesity Obesity, unspecified IBS (irritable bowel syndrome) Irritable bowel syndrome Hypertonicity of bladder Type II or unspecified type diabetes mellitus without mention of complication, uncontrolled- Primary Obesity Obesity, unspecified IBS (irritable bowel syndrome) Irritable bowel syndrome SOB (shortness of breath) on exertion Shortness of breath Hypertonicity of bladder Routine health maintenance Routine general medical examination at a health care facility Low oxygen saturation Abnormal arterial blood gases Low oxygen saturation- Primary Abnormal arterial blood gases ARIANA (obstructive sleep apnea) Obstructive sleep apnea (adult) (pediatric) Type II or unspecified type diabetes mellitus without mention of complication, uncontrolled Numbness and tingling in hands Disturbance of skin sensation Depression Depressive disorder, not elsewhere classified SOB (shortness of breath) on exertion- Primary Shortness of breath ARIANA (obstructive sleep apnea) Obstructive sleep apnea (adult) (pediatric) Type II or unspecified type diabetes mellitus without mention of complication, uncontrolled Obesity Obesity, unspecified Oxygen dependent Dependence on supplemental oxygen Vitamin D deficiency- Primary Unspecified vitamin D deficiency Type II or unspecified type diabetes mellitus without mention of complication, uncontrolled Low oxygen saturation Abnormal arterial blood gases Obesity Obesity, unspecified Pain in left knee- Primary Pain in joint, lower leg Morbid obesity, unspecified obesity type (HCC) Diabetes mellitus type 2, uncontrolled Type II or unspecified type diabetes mellitus without mention of complication, uncontrolled Tardive dyskinesia- Primary Subacute dyskinesia due to drugs Benign paroxysmal positional vertigo, unspecified laterality Diabetes mellitus type 2, uncontrolled Type II or unspecified type diabetes mellitus without mention of complication, uncontrolled ARIANA (obstructive sleep apnea) Obstructive sleep apnea (adult) (pediatric) Morbid obesity, unspecified obesity type (HCC) Vaginal dryness Other specified symptom associated with female genital organs Diabetes mellitus type 2, uncontrolled- Primary Type II or unspecified type diabetes mellitus without mention of complication, uncontrolled Hyperlipidemia with target LDL less than 70 Other and unspecified hyperlipidemia Tardive dyskinesia Subacute dyskinesia due to drugs Primary insomnia Persistent disorder of initiating or maintaining sleep Incontinence of feces, unspecified fecal incontinence type- Primary Uncontrolled type 2 diabetes mellitus without complication, with long-term current use of insulin Class 2 obesity without serious comorbidity with body mass index (BMI) of 35.0 to 35.9 in adult, unspecified obesity type Tardive dyskinesia Subacute dyskinesia due to drugs RLS (restless legs syndrome) Restless legs syndrome (RLS) Hyperlipidemia with target LDL less than 70 Other and unspecified hyperlipidemia Pre-operative examination- Primary Preoperative examination, unspecified Chronic pain of left knee Pain in joint, lower leg Diabetes mellitus type 2 (HCC) History of implantation of artificial sphincter Hyperlipidemia with target LDL less than 70 Other and unspecified hyperlipidemia Hypertonicity of bladder Incontinence of feces, unspecified fecal incontinence type ARIANA (obstructive sleep apnea) Obstructive sleep apnea (adult) (pediatric) Tardive dyskinesia Subacute dyskinesia due to drugs Obesity, Class III, BMI >= 40 (morbid obesity) ([facility]) E66.01 Morbid obesity S/P gastric sleeve procedure Gastroesophageal reflux disease, unspecified whether esophagitis present Swelling Edema PTSD (post-traumatic stress disorder) Posttraumatic stress disorder Pre-operative examination- Primary Preoperative examination, unspecified Diabetes mellitus type 2 (HCC) Tardive dyskinesia Subacute dyskinesia due to drugs Swelling Edema S/P gastric sleeve procedure RLS (restless legs syndrome) Restless legs syndrome (RLS) PTSD (post-traumatic stress disorder) Posttraumatic stress disorder Primary osteoarthritis of left knee Primary localized osteoarthrosis, lower leg ARIANA (obstructive sleep apnea) Obstructive sleep apnea (adult) (pediatric) Incontinence of feces, unspecified fecal incontinence type Hypertonicity of bladder Hyperlipidemia with target LDL less than 70 Other and unspecified hyperlipidemia Gastroesophageal reflux disease, unspecified whether esophagitis present Diabetes mellitus type 2 (HCC)- Primary Muscle spasm Spasm of muscle Electrical shock sensation Disturbance of skin sensation Parkinson's disease, unspecified whether dyskinesia present, unspecified whether manifestations fluctuate ([facility]) Insomnia, unspecified type ARIANA (obstructive sleep apnea) Obstructive sleep apnea (adult) (pediatric) [facility] Diagnosis Wheezing- Primary Tardive dyskinesia Subacute dyskinesia due to drugs Low O2 saturation Abnormal arterial blood gases 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 Low oxygen saturation Abnormal arterial blood gases Parkinson disease (HCC)- Primary Paralysis agitans Schizophrenia (HCC) Unspecified schizophrenia, unspecified condition Tardive dyskinesia Subacute dyskinesia due to drugs Low oxygen saturation Abnormal arterial blood gases Type II or unspecified type diabetes mellitus without mention of complication, uncontrolled Hyperlipidemia LDL goal < 70 Other and unspecified hyperlipidemia Nausea- Primary Nausea alone Type II or unspecified type diabetes mellitus without mention of complication, uncontrolled SOB (shortness of breath) on exertion Shortness of breath Urinary incontinence Unspecified urinary incontinence RLS (restless legs syndrome) Restless legs syndrome (RLS) Hypomagnesemia Disorders of magnesium metabolism Vitamin D deficiency Unspecified vitamin D deficiency Iron deficiency Iron deficiency anemia, unspecified Diabetes 1.5, 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HCC) Type II or unspecified type diabetes mellitus without mention of complication, not stated as uncontrolled SOB (shortness of breath) on exertion- Primary Shortness of breath ARIANA (obstructive sleep apnea) Obstructive sleep apnea (adult) (pediatric) Type II or unspecified type diabetes mellitus without mention of complication, uncontrolled Type II or unspecified type diabetes mellitus without mention of complication, uncontrolled- Primary ARIANA (obstructive sleep apnea) Obstructive sleep apnea (adult) (pediatric) Low oxygen saturation Abnormal arterial blood gases Obesity Obesity, unspecified Frequency of urination Urinary frequency Type II or unspecified type diabetes mellitus without mention of complication, uncontrolled- Primary Hyperlipidemia LDL goal < 70 Other and unspecified hyperlipidemia ARIANA (obstructive sleep apnea) Obstructive sleep apnea (adult) (pediatric) IBS (irritable bowel syndrome) Irritable bowel syndrome SOB (shortness of breath) on exertion Shortness of breath Parkinson disease (HCC) Paralysis agitans Obesity Obesity, unspecified Obesity- Primary Obesity, unspecified Cataracts, bilateral Unspecified cataract Low oxygen saturation Abnormal arterial blood gases Type II or unspecified type diabetes mellitus without mention of complication, uncontrolled Hyperlipidemia LDL goal < 70 Other and unspecified hyperlipidemia Hyperlipidemia LDL goal < 70- Primary Other and unspecified hyperlipidemia Type II or unspecified type diabetes mellitus without mention of complication, uncontrolled Tingling in extremities Disturbance of skin sensation Pain in limb Vitamin D deficiency Unspecified vitamin D deficiency Type II or unspecified type diabetes mellitus without mention of complication, uncontrolled- Primary Hyperlipidemia LDL goal < 70 Other and unspecified hyperlipidemia Pedal edema Edema Obesity Obesity, unspecified IBS (irritable bowel syndrome) Irritable bowel syndrome Hypertonicity of bladder Type II or unspecified type diabetes mellitus without mention of complication, uncontrolled- Primary Obesity Obesity, unspecified IBS (irritable bowel syndrome) Irritable bowel syndrome SOB (shortness of breath) on exertion Shortness of breath Hypertonicity of bladder Routine health maintenance Routine general medical examination at a health care facility Low oxygen saturation Abnormal arterial blood gases Low oxygen saturation- Primary Abnormal arterial blood gases ARIANA (obstructive sleep apnea) Obstructive sleep apnea (adult) (pediatric) Type II or unspecified type diabetes mellitus without mention of complication, uncontrolled Numbness and tingling in hands Disturbance of skin sensation Depression Depressive disorder, not elsewhere classified SOB (shortness of breath) on exertion- Primary Shortness of breath ARIANA (obstructive sleep apnea) Obstructive sleep apnea (adult) (pediatric) Type II or unspecified type diabetes mellitus without mention of complication, uncontrolled Obesity Obesity, unspecified Oxygen dependent Dependence on supplemental oxygen Vitamin D deficiency- Primary Unspecified vitamin D deficiency Type II or unspecified type diabetes mellitus without mention of complication, uncontrolled Low oxygen saturation Abnormal arterial blood gases Obesity Obesity, unspecified Pain in left knee- Primary Pain in joint, lower leg Morbid obesity, unspecified obesity type (HCC) Diabetes mellitus type 2, uncontrolled Type II or unspecified type diabetes mellitus without mention of complication, uncontrolled Tardive dyskinesia- Primary Subacute dyskinesia due to drugs Benign paroxysmal positional vertigo, unspecified laterality Diabetes mellitus type 2, uncontrolled Type II or unspecified type diabetes mellitus without mention of complication, uncontrolled ARIANA (obstructive sleep apnea) Obstructive sleep apnea (adult) (pediatric) Morbid obesity, unspecified obesity type (HCC) Vaginal dryness Other specified symptom associated with female genital organs Diabetes mellitus type 2, uncontrolled- Primary Type II or unspecified type diabetes mellitus without mention of complication, uncontrolled Hyperlipidemia with target LDL less than 70 Other and unspecified hyperlipidemia Tardive dyskinesia Subacute dyskinesia due to drugs Primary insomnia Persistent disorder of initiating or maintaining sleep Incontinence of feces, unspecified fecal incontinence type- Primary Uncontrolled type 2 diabetes mellitus without complication, with long-term current use of insulin Class 2 obesity without serious comorbidity with body mass index (BMI) of 35.0 to 35.9 in adult, unspecified obesity type Tardive dyskinesia Subacute dyskinesia due to drugs RLS (restless legs syndrome) Restless legs syndrome (RLS) Hyperlipidemia with target LDL less than 70 Other and unspecified hyperlipidemia Pre-operative examination- Primary Preoperative examination, unspecified Chronic pain of left knee Pain in joint, lower leg Diabetes mellitus type 2 ([facility]) History of implantation of artificial sphincter Hyperlipidemia with target LDL less than 70 Other and unspecified hyperlipidemia Hypertonicity of bladder Incontinence of feces, unspecified fecal incontinence type ARIANA (obstructive sleep apnea) Obstructive sleep apnea (adult) (pediatric) Tardive dyskinesia Subacute dyskinesia due to drugs Obesity, Class III, BMI >= 40 (morbid obesity) ([facility]) E66.01 Morbid obesity S/P gastric sleeve procedure Gastroesophageal reflux disease, unspecified whether esophagitis present Swelling Edema PTSD (post-traumatic stress disorder) Posttraumatic stress disorder Pre-operative examination- Primary Preoperative examination, unspecified Diabetes mellitus type 2 ([facility]) Tardive dyskinesia Subacute dyskinesia due to drugs Swelling Edema S/P gastric sleeve procedure RLS (restless legs syndrome) Restless legs syndrome (RLS) PTSD (post-traumatic stress disorder) Posttraumatic stress disorder Primary osteoarthritis of left knee Primary localized osteoarthrosis, lower leg ARIANA (obstructive sleep apnea) Obstructive sleep apnea (adult) (pediatric) Incontinence of feces, unspecified fecal incontinence type Hypertonicity of bladder Hyperlipidemia with target LDL less than 70 Other and unspecified hyperlipidemia Gastroesophageal reflux disease, unspecified whether esophagitis present Diabetes mellitus type 2 ([facility]) [facility] Wheezing- Primary Tardive dyskinesia Subacute dyskinesia due to drugs Low O2 saturation Abnormal arterial blood gases 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 Low oxygen saturation Abnormal arterial blood gases Parkinson disease ([facility])- Primary Paralysis agitans Schizophrenia ([facility]) Unspecified schizophrenia, unspecified condition Tardive dyskinesia Subacute dyskinesia due to drugs Low oxygen saturation Abnormal arterial blood gases Type II or unspecified type diabetes mellitus without mention of complication, uncontrolled Hyperlipidemia LDL goal < 70 Other and unspecified hyperlipidemia Nausea- Primary Nausea alone Type II or unspecified type diabetes mellitus without mention of complication, uncontrolled SOB (shortness of breath) on exertion Shortness of breath Urinary incontinence Unspecified urinary incontinence RLS (restless legs syndrome) Restless legs syndrome (RLS) Hypomagnesemia Disorders of magnesium metabolism Vitamin D deficiency Unspecified vitamin D deficiency Iron deficiency Iron deficiency anemia, unspecified Diabetes 1.5, 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[facility]) Type II or unspecified type diabetes mellitus without mention of complication, not stated as uncontrolled SOB (shortness of breath) on exertion- Primary Shortness of breath ARIANA (obstructive sleep apnea) Obstructive sleep apnea (adult) (pediatric) Type II or unspecified type diabetes mellitus without mention of complication, uncontrolled Type II or unspecified type diabetes mellitus without mention of complication, uncontrolled- Primary ARIANA (obstructive sleep apnea) Obstructive sleep apnea (adult) (pediatric) Low oxygen saturation Abnormal arterial blood gases Obesity Obesity, unspecified Frequency of urination Urinary frequency Type II or unspecified type diabetes mellitus without mention of complication, uncontrolled- Primary Hyperlipidemia LDL goal < 70 Other and unspecified hyperlipidemia ARIANA (obstructive sleep apnea) Obstructive sleep apnea (adult) (pediatric) IBS (irritable bowel syndrome) Irritable bowel syndrome SOB (shortness of breath) on exertion Shortness of breath Parkinson disease ([facility]) Paralysis agitans Obesity Obesity, unspecified Obesity- Primary Obesity, unspecified Cataracts, bilateral Unspecified cataract Low oxygen saturation Abnormal arterial blood gases Type II or unspecified type diabetes mellitus without mention of complication, uncontrolled Hyperlipidemia LDL goal < 70 Other and unspecified hyperlipidemia Hyperlipidemia LDL goal < 70- Primary Other and unspecified hyperlipidemia Type II or unspecified type diabetes mellitus without mention of complication, uncontrolled Tingling in extremities Disturbance of skin sensation Pain in limb Vitamin D deficiency Unspecified vitamin D deficiency Type II or unspecified type diabetes mellitus without mention of complication, uncontrolled- Primary Hyperlipidemia LDL goal < 70 Other and unspecified hyperlipidemia Pedal edema Edema Obesity Obesity, unspecified IBS (irritable bowel syndrome) Irritable bowel syndrome Hypertonicity of bladder Type II or unspecified type diabetes mellitus without mention of complication, uncontrolled- Primary Obesity Obesity, unspecified IBS (irritable bowel syndrome) Irritable bowel syndrome SOB (shortness of breath) on exertion Shortness of breath Hypertonicity of bladder Routine health maintenance Routine general medical examination at a health care facility Low oxygen saturation Abnormal arterial blood gases Low oxygen saturation- Primary Abnormal arterial blood gases ARIANA (obstructive sleep apnea) Obstructive sleep apnea (adult) (pediatric) Type II or unspecified type diabetes mellitus without mention of complication, uncontrolled Numbness and tingling in hands Disturbance of skin sensation Depression Depressive disorder, not elsewhere classified SOB (shortness of breath) on exertion- Primary Shortness of breath ARIANA (obstructive sleep apnea) Obstructive sleep apnea (adult) (pediatric) Type II or unspecified type diabetes mellitus without mention of complication, uncontrolled Obesity Obesity, unspecified Oxygen dependent Dependence on supplemental oxygen Vitamin D deficiency- Primary Unspecified vitamin D deficiency Type II or unspecified type diabetes mellitus without mention of complication, uncontrolled Low oxygen saturation Abnormal arterial blood gases Obesity Obesity, unspecified Pain in left knee- Primary Pain in joint, lower leg Morbid obesity, unspecified obesity type ([facility]) Diabetes mellitus type 2, uncontrolled Type II or unspecified type diabetes mellitus without mention of complication, uncontrolled Tardive dyskinesia- Primary Subacute dyskinesia due to drugs Benign paroxysmal positional vertigo, unspecified laterality Diabetes mellitus type 2, uncontrolled Type II or unspecified type diabetes mellitus without mention of complication, uncontrolled ARIANA (obstructive sleep apnea) Obstructive sleep apnea (adult) (pediatric) Morbid obesity, unspecified obesity type ([facility]) Vaginal dryness Other specified symptom associated with female genital organs Diabetes mellitus type 2, uncontrolled- Primary Type II or unspecified type diabetes mellitus without mention of complication, uncontrolled Hyperlipidemia with target LDL less than 70 Other and unspecified hyperlipidemia Tardive dyskinesia Subacute dyskinesia due to drugs Primary insomnia Persistent disorder of initiating or maintaining sleep Incontinence of feces, unspecified fecal incontinence type- Primary Uncontrolled type 2 diabetes mellitus without complication, with long-term current use of insulin Class 2 obesity without serious comorbidity with body mass index (BMI) of 35.0 to 35.9 in adult, unspecified obesity type Tardive dyskinesia Subacute dyskinesia due to drugs RLS (restless legs syndrome) Restless legs syndrome (RLS) Hyperlipidemia with target LDL less than 70 Other and unspecified hyperlipidemia Pre-operative examination- Primary Preoperative examination, unspecified Chronic pain of left knee Pain in joint, lower leg Diabetes mellitus type 2 ([facility]) History of implantation of artificial sphincter Hyperlipidemia with target LDL less than 70 Other and unspecified hyperlipidemia Hypertonicity of bladder Incontinence of feces, unspecified fecal incontinence type ARIANA (obstructive sleep apnea) Obstructive sleep apnea (adult) (pediatric) Tardive dyskinesia Subacute dyskinesia due to drugs Obesity, Class III, BMI >= 40 (morbid obesity) ([facility]) E66.01 Morbid obesity S/P gastric sleeve procedure Gastroesophageal reflux disease, unspecified whether esophagitis present Swelling Edema PTSD (post-traumatic stress disorder) Posttraumatic stress disorder Pre-operative examination- Primary Preoperative examination, unspecified Diabetes mellitus type 2 ([facility]) Tardive dyskinesia Subacute dyskinesia due to drugs Swelling Edema S/P gastric sleeve procedure RLS (restless legs syndrome) Restless legs syndrome (RLS) PTSD (post-traumatic stress disorder) Posttraumatic stress disorder Primary osteoarthritis of left knee Primary localized osteoarthrosis, lower leg ARIANA (obstructive sleep apnea) Obstructive sleep apnea (adult) (pediatric) Incontinence of feces, unspecified fecal incontinence type Hypertonicity of bladder Hyperlipidemia with target LDL less than 70 Other and unspecified hyperlipidemia Gastroesophageal reflux disease, unspecified whether esophagitis present Neuropathy Mononeuritis of unspecified site documented in this encounter [facility] home Plan of care note* Visit Details Visit Type -PT SOC Discipline -Physical Therapy Problems Problem Description Start Date Status Goals Interve ntions Medication Education Disciplines: Skilled Services 10/31/2021 Active 1 goal linked to scheduled/documen negrito intervention 1 goal intervention scheduled/document ed in this visit Sepsis Disciplines: Skilled Services 10/31/2021 Active 1 goal linked to scheduled/documen negrito intervention 1 goal intervention scheduled/document ed in this visit Physician Specific Parameters Disciplines: Skilled Services 10/31/2021 Active 1 goal linked to scheduled/documen negrito intervention 1 goal intervention scheduled/document ed in this visit Risk for Falls Disciplines: Skilled Services 10/31/2021 Active 1 goal linked to scheduled/documen negrito intervention 1 goal intervention scheduled/document ed in this visit Pain Disciplines: Skilled Services 10/31/2021 Active 1 goal linked to scheduled/documen negrito intervention 1 goal intervention scheduled/document ed in this visit Oxygen Disciplines: Skilled Services 10/31/2021 Active 1 goal linked to scheduled/documen negrito intervention 2 goal interventions scheduled/document ed in this visit High Risk Medications Disciplines: Skilled Services 10/31/2021 Active 1 goal linked to scheduled/documen negrito intervention 1 goal intervention scheduled/document ed in this visit Discharge Disciplines: Skilled Services 10/31/2021 Active 1 goal linked to scheduled/documen negrito intervention 1 goal intervention scheduled/document ed in this visit Advance Directives Disciplines: Skilled Services 10/31/2021 Resolved on 10/31/2021 1 goal linked to scheduled/documen negrito intervention 1 goal intervention scheduled/document ed in this visit PT Impaired muscle performance and/or ROM Disciplines: PT 10/31/2021 Active 1 goal linked to scheduled/documen negrito intervention 1 goal intervention scheduled/document ed in this visit PT Impaired mobility Disciplines: PT 10/31/2021 Active 1 goal linked to scheduled/documen negrito intervention 1 goal intervention scheduled/document ed in this visit PT Impaired gait Disciplines: PT 10/31/2021 Active 1 goal linked to scheduled/documen negrito intervention 1 goal intervention scheduled/document ed in this visit PT Orthopedic Condition Disciplines: PT 10/31/2021 Active 1 goal linked to scheduled/documen negrito intervention 1 goal intervention scheduled/document ed in this visit PT Learning Assessment Disciplines: PT 10/31/2021 Active 1 goal linked to scheduled/documen negrito intervention 1 goal intervention scheduled/document ed in this visit Goals Goal Associated Problem Outcome Goal Met? Visit Notes Patient/caregiver will demonstrate ability to obtain, store, identify and administer ordered medications, keep accurate medication list in home, and adhere to medication schedule Description: Patient/caregiver will demonstrate ability to obtain, store, identify and administer ordered medications, keep accurate medication list in home, and adhere to medication schedule by 11/15/21. Medication Education No Patient/caregiver will be able to identify and report symptoms of sepsis Description: Patient/caregiver will be able to identify signs/symptoms of sepsis infection and will verbalize actions to take if suspected by 11/15/21. Sepsis No Patient to maintain parameters within physician-specified ranges throughout certification period Physician Specific Parameters No Manage Risk for falls Description: Patient/caregiver will verbalize knowledge of individualized fall prevention strategies by 11/15/21. Risk for Falls No Manage Pain Description: Patient and/or caregiver will verbalize knowledge and understanding of appropriate techniques to control pain, including pain medication and non-pharmacological techniques. Patient will verbalize or demonstrate an acceptable level of pain as evidenced by pain of 2/10 or less at rest. To be achieved by 11/15/21. Pain No Manage oxygen Description: Patient/caregiver will use oxygen safely and effectively in home by verbalizing and demonstrating oxygen safety by 11/15/21. Oxygen No Patient/caregiver will teach back high risk medication side effect and precaution education High Risk Medications No Manage discharge planning Description: Patient/caregiver will verbalize understanding of ongoing discharge plan provided related to disease management, arrangements for outpatient and/or community services, obtaining medications, supplies, and DME, as needed throughout certification period. Discharge No Patient/caregiver will make healthcare providers aware of and any changes to Advance Directives throughout certification period Advance Directives Completed Yes Goal Met Improved Muscle Performance and/or ROM Description: Short term goal: Patient will demonstrate improved L knee ROM to 0-90 degress of AROM or greater, to be achieved by 11/15/21. PT Impaired muscle performance and/or ROM No Improved Transfers Description: Short term goal: Patient will demonstrate safe transfers to/from bed, chair and toilet independently, to be achieved by 11/08/21. PT Impaired mobility No Improved Gait Description: STG: Patient will demonstrate improved gait ability as evidenced by ambulation 125 feet with front wheeled walker with supervision, in order to access all areas of the home, to be achieved by 11/08/21. LTG: Patient will demonstrate improved gait ability as evidenced by ambulation 200 feet with front wheeled walker independently with AD, to return to safe community ambulation, to be achieved by 11/21/21. PT Impaired gait No Manage Orthopedic Condition Description: Improve patient and/or caregiver understanding of post surgical and/or non-surgical orthopedic intervention management as evidenced by patient and/or caregiver able to verbalize, demonstrate, and teach back instruction, to be achieved by 11/15/21. PT Orthopedic Condition No Demonstrate understanding of education Description: Patient and/or caregiver will understand educational instruction to be achieved by 11/15/21. PT Learning Assessment No Interventions Intervention Associated Problem/Goal Status Variance Visit Notes Medication Education Description: Evaluate/instruct patient/caregiver on obtaining, storing, identifying and administering ordered medications as well as keeping accurate medication list in the home and adhereing to medication schedule Problem:Medication Education Goal:Patient/caregive r will demonstrate ability to obtain, store, identify and administer ordered medications, keep accurate medication list in home, and adhere to medication schedule Completed Patient and Caregiver instructed on importance of keeping accurate medication list in home, adhering to medication schedule, proper storage of medications and Medication, route, dose, frequency, purpose, and side effects of medications. Risk of Sepsis Description: Patient is at risk for sepsis. Monitor closely for s/s of sepsis. Problem:Sepsis Goal:Patient/caregive r will be able to identify and report symptoms of sepsis Completed SPO2 Description: Notify Dr. Johnson if pulse ox is <92% at rest. Problem:Physician Specific Parameters Goal:Patient to maintain parameters within physician-specified ranges throughout certification period Completed Instruct on individual fall risk factors and strategies to prevent falls and injuries caused by falls. Problem:Risk for Falls Goal:Manage Risk for falls Completed Interventions implemented and instructions provided this visit to reduce risk of falls:Assistive devices to be used: FWW. Instruct on pain and instruct on strategies to control pain Problem:Pain Goal:Manage Pain Completed patient instructed on techniques to control pain including Pharmacological measures and Non-Pharmacological measures; rest, positioning/elevation, mobility/therapeutic exercise, use of DME/assistive devices and use of thermal modalities, apply ice to affected area. Instruct on fire safety and safe and effective use of oxygen in the home Problem:Oxygen Goal:Manage oxygen Completed patient and caregiver instructed on: findings of safety risk assessment, causes of fires, firerisks for neighboring residences and buildings, precautions that can prevent fire-related injuries, oxygen safety as outlined in Home Care Patient Handbook and recommendations for specific safety risks identified in the home: maintenance of working smoke detectors and changing batteries, establishment of fire escape plan, telephone accessibility, safe food preparation practices while using oxygen, removal of burning candles and smoking materials and implementation of no-smoking policy in home, including e-cigarettes and posting of No-Smoking signs on entrance doors patient and caregiver demonstrate compliance with safety recommendations. Implement strategies to improve compliance with oxygen safety Problem:Oxygen Goal:Manage oxygen Completed Instructed on oxygen safety and compliance strategies including: Education on need to post a no smoking sign. patient and caregiver demonstrates understanding of safety recommendations. Opioids- Instruct on high risk medication Problem:High Risk Medications Goal:Patient/caregive r will teach back high risk medication side effect and precaution education Completed patient and caregiver instructed on the following: Possible side effects of opioid medication including sedation, decreased rate of breathing, and constipation. Instructed on reporting over sedation to prescribing physician, practice deep breathing techniques every hour while awake, and prevention of constipation by increasing water and fiber intake, increase activity as tolerated, and use stool softener as prescribed. Only take opioids as prescribed, do not share your medications, and take proper precautions in storing and properly disposing of opioids once no longer needed. Follow providers guidelines for driving and weaning from prescribed opioid. Instruct on ongoing discharge plan Problem:Discharge Goal:Manage discharge planning Completed Ongoing Discharge plan: Discharge plan discussed with patient and caregiver including frequency and duration for home PT and plan for transition to: outpatient therapy. Determine patient's Advance Directive Status Description: Patient does have advance directives. Patient's Advance Directives determined to be available in EMR. Problem:Advance Directives Goal:Patient/caregive r will make healthcare providers aware of and any changes to Advance Directives throughout certification period Completed Discussed Advance Directives with Patient and/or Caregiver. Referred patient to Home Care handbook for further information on Healthcare DPOA & Living Will. Physical Therapy Therapeutic Exercises Problem:PT Impaired muscle performance and/or ROM Goal:Improved Muscle Performance and/or ROM Completed Developed, implemented, and instructed patient and/or caregiver on strengthening exercises: Ankle pumps, quad sets, gluteal squeeze and seated knee flexion all x 10 reps. Developed, implemented, and instructed patient and/or caregiver on range of motion exercises: left knee flexion. Instructed patient and/or caregiver to perform HEP 2 times a day. Learning Assessment Patient and Caregiver verbalizes understanding and demonstrates understanding of instructions. Teaching methods used were verbal, demonstration and written. Physical Therapy Transfer Training Problem:PT Impaired mobility Goal:Improved Transfers Completed Transfer training and instruction to patient on safe transfers to and from chair with stand by assist and verbal, tactile and visual cues for sequencing extremities and to promote anterior weight shifting. Recommended the following adaptive equipment/durable medical equipment: walker. Physical Therapy Gait Training Problem:PT Impaired gait Goal:Improved Gait Completed Gait training and instruction to patient on safe ambulation with front wheeled walker for 55 feet with stand by assist, with verbal cues for corrections of gait deviations including increase BL step length, increase heel strike/toe off and to reduce reliance on BL LEs. Instruct on management of edema Problem:PT Orthopedic Condition Goal:Manage Orthopedic Condition Completed Instruct patient on management of edema including elevation above the level of the heart, ice and benefits of activity. Instruct and educate on knowledge deficits Problem:PT Learning Assessment Goal:Demonstrate understanding of education Completed patient and caregiver verbalize and/or demonstrate understanding of physical therapy education including diabetic care management, orthopedic condition management, weight bearing precautions, surgical precautions, pain management, oxygen safety, fall prevention strategies, home safety, integumentary and incision/wound care management, infection control precautions, functional activity and home exercise program. Education methods include: verbal cues, tactile cues, written instructions, visual cues and teach back. Further education required to improve knowledge and compliance with diabetic care management, orthopedic condition management, weight bearing precautions, surgical precautions, pain management, oxygen safety, fall prevention strategies, home safety, integumentary and incision/wound care management, infection control precautions and functional activity. [facility] Visit Details Visit Type -PT CASE MANAGEME NT VISIT Discipline -Physical Therapy Problems Problem Description Start Date Status Goals Interve ntions Medication Education Disciplines: Skilled Services 10/31/2021 Active 1 goal linked to scheduled/document ed intervention 1 goal intervention scheduled/document ed in this visit Sepsis Disciplines: Skilled Services 10/31/2021 Active 1 goal linked to scheduled/document ed intervention 1 goal intervention scheduled/document ed in this visit Physician Specific Parameters Disciplines: Skilled Services 10/31/2021 Active 1 goal linked to scheduled/document ed intervention 1 goal intervention scheduled/document ed in this visit Risk for Falls Disciplines: Skilled Services 10/31/2021 Active 1 goal linked to scheduled/document ed intervention 1 goal intervention scheduled/document ed in this visit Pain Disciplines: Skilled Services 10/31/2021 Active 1 goal linked to scheduled/document ed intervention 1 goal intervention scheduled/document ed in this visit Diabetic Foot Care Disciplines: Skilled Services 10/31/2021 Active 1 goal linked to scheduled/document ed intervention 1 goal intervention scheduled/document ed in this visit High Risk Medications Disciplines: Skilled Services 10/31/2021 Active 1 goal linked to scheduled/document ed intervention 1 goal intervention scheduled/document ed in this visit PT Impaired muscle performance and/or ROM Disciplines: PT 10/31/2021 Active 1 goal linked to scheduled/document ed intervention 1 goal intervention scheduled/document ed in this visit PT Impaired gait Disciplines: PT 10/31/2021 Active 1 goal linked to scheduled/document ed intervention 1 goal intervention scheduled/document ed in this visit PT Orthopedic Condition Disciplines: PT 10/31/2021 Active 1 goal linked to scheduled/document ed intervention 2 goal interventions scheduled/document ed in this visit PT Learning Assessment Disciplines: PT 10/31/2021 Active 1 goal linked to scheduled/document ed intervention 1 goal intervention scheduled/document ed in this visit Goals Goal Associated Problem Outcome Goal Met? Visit Notes Patient/caregiver will demonstrate ability to obtain, store, identify and administer ordered medications, keep accurate medication list in home, and adhere to medication schedule Description: Patient/caregiver will demonstrate ability to obtain, store, identify and administer ordered medications, keep accurate medication list in home, and adhere to medication schedule by 11/15/21. Medication Education No Patient/caregiver will be able to identify and report symptoms of sepsis Description: Patient/caregiver will be able to identify signs/symptoms of sepsis infection and will verbalize actions to take if suspected by 11/15/21. Sepsis No Patient to maintain parameters within physician-specified ranges throughout certification period Physician Specific Parameters No Manage Risk for falls Description: Patient/caregiver will verbalize knowledge of individualized fall prevention strategies by 11/15/21. Risk for Falls No Manage Pain Description: Patient and/or caregiver will verbalize knowledge and understanding of appropriate techniques to control pain, including pain medication and non-pharmacological techniques. Patient will verbalize or demonstrate an acceptable level of pain as evidenced by pain of 2/10 or less at rest. To be achieved by 11/15/21. Pain No Manage diabetic foot care Description: Patient/caregiver will demonstrate basic understanding of and compliance with diabetic self-care management as evidenced by verbalizing purpose of daily foot care and assessment by 11/15/21. Diabetic Foot Care No Patient/caregiver will teach back high risk medication side effect and precaution education High Risk Medications No Improved Muscle Performance and/or ROM Description: Short term goal: Patient will demonstrate improved L knee ROM to 0-90 degress of AROM or greater, to be achieved by 11/15/21. PT Impaired muscle performance and/or ROM No Improved Gait Description: STG: Patient will demonstrate improved gait ability as evidenced by ambulation 125 feet with front wheeled walker with supervision, in order to access all areas of the home, to be achieved by 11/08/21. LTG: Patient will demonstrate improved gait ability as evidenced by ambulation 200 feet with front wheeled walker independently with AD, to return to safe community ambulation, to be achieved by 11/21/21. PT Impaired gait No Manage Orthopedic Condition Description: Improve patient and/or caregiver understanding of post surgical and/or non-surgical orthopedic intervention management as evidenced by patient and/or caregiver able to verbalize, demonstrate, and teach back instruction, to be achieved by 11/15/21. PT Orthopedic Condition No Demonstrate understanding of education Description: Patient and/or caregiver will understand educational instruction to be achieved by 11/15/21. PT Learning Assessment No Interventions Intervention Associated Problem/Goal Status Variance Visit Notes Medication Education Description: Evaluate/instruct patient/caregiver on obtaining, storing, identifying and administering ordered medications as well as keeping accurate medication list in the home and adhereing to medication schedule Problem:Medication Education Goal:Patient/caregive r will demonstrate ability to obtain, store, identify and administer ordered medications, keep accurate medication list in home, and adhere to medication schedule Completed Patient instructed on importance of keeping accurate medication list in home and adhering to medication schedule. Risk of Sepsis Description: Patient is at risk for sepsis. Monitor closely for s/s of sepsis. Problem:Sepsis Goal:Patient/caregive r will be able to identify and report symptoms of sepsis Completed SPO2 Description: Notify Dr. Johnson if pulse ox is <92% at rest. Problem:Physician Specific Parameters Goal:Patient to maintain parameters within physician-specified ranges throughout certification period Completed Instruct on individual fall risk factors and strategies to prevent falls and injuries caused by falls. Problem:Risk for Falls Goal:Manage Risk for falls Completed PT: Patient instructed on Eliminating Environmental Hazards: Keep pathways clear, Keep pets out of pathways and Remove unsafe rugs Managing Impaired Functional Mobility: Use assistive device(s): front wheeled walker Managing Pain Instruct on pain and instruct on strategies to control pain Problem:Pain Goal:Manage Pain Completed patient instructed on techniques to control pain including Pharmacological measures and Non-Pharmacological measures; rest, positioning/elevation and use of thermal modalities, apply ice to affected area . Monitor lower extremities for skin lesions and educate on proper foot care Problem:Diabetic Foot Care Goal:Manage diabetic foot care Completed patient instructed on diabetic foot care including daily skin inspection and wearing proper footwear/avoiding going barefoot. Opioids- Instruct on high risk medication Problem:High Risk Medications Goal:Patient/caregive r will teach back high risk medication side effect and precaution education Completed patient instructed on the following: Possible side effects of opioid medication including sedation, decreased rate of breathing, and constipation. Instructed on reporting over sedation to prescribing physician, practice deep breathing techniques every hour while awake, and prevention of constipation by increasing water and fiber intake, increase activity as tolerated, and use stool softener as prescribed. Only take opioids as prescribed, do not share your medications, and take proper precautions in storing and properly disposing of opioids once no longer needed. Follow providers guidelines for driving and weaning from prescribed opioid. Physical Therapy Therapeutic Exercises Problem:PT Impaired muscle performance and/or ROM Goal:Improved Muscle Performance and/or ROM Completed patient instructed on strengthening and range of motion exercises including Supine : GS,QS,HS, HIPADD, HIP BD, HEEL SLIDES, SAQ, X 10 with AA supine passive knee ext x 1 min seated knee flexion to 78 with verbal cues for technique . patient instructed to perform home exercise program twice a day which included hourly ambulation . Physical Therapy Gait Training Problem:PT Impaired gait Goal:Improved Gait Completed Gait training and instruction to patient on safe ambulation with front wheeled walker for 20' x 4 feet with supervision, with verbal and visual cues for corrections of gait deviations including development of heel toe pattern . Instruct on orthopedic precautions and weight bearing restrictions Description: Orthopedic precautions including left total knee: no knee flexed over pillow at rest. Weight bearing restrictions include: WBAT of involved extremity. Problem:PT Orthopedic Condition Goal:Manage Orthopedic Condition Completed patient instructed on orthopedic precautions. Instruct on management of edema Problem:PT Orthopedic Condition Goal:Manage Orthopedic Condition Completed Instruct patient on management of edema including elevation of LLE above the level of the heart and ice. Instruct and educate on knowledge deficits Problem:PT Learning Assessment Goal:Demonstrate understanding of education Completed caregiver verbalize and/or demonstrate understanding of physical therapy education including orthopedic condition management, weight bearing precautions, surgical precautions and pain management. Education methods include: verbal cues. Further education required to improve knowledge and compliance with orthopedic condition management, weight bearing precautions, surgical precautions, pain management, oxygen safety, fall prevention strategies, home safety, functional activity and home exercise program. documented in this encounter [facility]'s home Plan of care note* Visit Details Visit Type -CERTIFIED NURSING ASSISTANT ROUTINE Discipline -Physical Therapy Problems Problem Description Start Date Status Goals Interve ntions Medication Education Disciplines: Skilled Services 10/31/2021 Active 1 goal linked to scheduled/document ed intervention 1 goal intervention scheduled/document ed in this visit Sepsis Disciplines: Skilled Services 10/31/2021 Active 1 goal linked to scheduled/document ed intervention 1 goal intervention scheduled/document ed in this visit Physician Specific Parameters Disciplines: Skilled Services 10/31/2021 Active 1 goal linked to scheduled/document ed intervention 1 goal intervention scheduled/document ed in this visit Risk for Falls Disciplines: Skilled Services 10/31/2021 Active 1 goal linked to scheduled/document ed intervention 1 goal intervention scheduled/document ed in this visit Pain Disciplines: Skilled Services 10/31/2021 Active 1 goal linked to scheduled/document ed intervention 1 goal intervention scheduled/document ed in this visit Diabetic Foot Care Disciplines: Skilled Services 10/31/2021 Active 1 goal linked to scheduled/document ed intervention 1 goal intervention scheduled/document ed in this visit Discharge Disciplines: Skilled Services 10/31/2021 Active 1 goal linked to scheduled/document ed intervention 1 goal intervention scheduled/document ed in this visit PT Impaired muscle performance and/or ROM Disciplines: PT 10/31/2021 Active 1 goal linked to scheduled/document ed intervention 1 goal intervention scheduled/document ed in this visit PT Impaired mobility Disciplines: PT 10/31/2021 Active 1 goal linked to scheduled/document ed intervention 1 goal intervention scheduled/document ed in this visit PT Impaired gait Disciplines: PT 10/31/2021 Active 1 goal linked to scheduled/document ed intervention 1 goal intervention scheduled/document ed in this visit PT Orthopedic Condition Disciplines: PT 10/31/2021 Active 1 goal linked to scheduled/document ed intervention 2 goal interventions scheduled/document ed in this visit PT Learning Assessment Disciplines: PT 10/31/2021 Active 1 goal linked to scheduled/document ed intervention 1 goal intervention scheduled/document ed in this visit PT Wound Management Disciplines: PT Active 1 goal linked to scheduled/document ed intervention 1 goal intervention scheduled/document ed in this visit Goals Goal Associated Problem Outcome Goal Met? Visit Notes Patient/caregiver will demonstrate ability to obtain, store, identify and administer ordered medications, keep accurate medication list in home, and adhere to medication schedule Description: Patient/caregiver will demonstrate ability to obtain, store, identify and administer ordered medications, keep accurate medication list in home, and adhere to medication schedule by 11/15/21. Medication Education No Patient/caregiver will be able to identify and report symptoms of sepsis Description: Patient/caregiver will be able to identify signs/symptoms of sepsis infection and will verbalize actions to take if suspected by 11/15/21. Sepsis No Patient to maintain parameters within physician-specified ranges throughout certification period Physician Specific Parameters No Manage Risk for falls Description: Patient/caregiver will verbalize knowledge of individualized fall prevention strategies by 11/15/21. Risk for Falls No Manage Pain Description: Patient and/or caregiver will verbalize knowledge and understanding of appropriate techniques to control pain, including pain medication and non-pharmacological techniques. Patient will verbalize or demonstrate an acceptable level of pain as evidenced by pain of 2/10 or less at rest. To be achieved by 11/15/21. Pain No Manage diabetic foot care Description: Patient/caregiver will demonstrate basic understanding of and compliance with diabetic self-care management as evidenced by verbalizing purpose of daily foot care and assessment by 11/15/21. Diabetic Foot Care No Manage discharge planning Description: Patient/caregiver will verbalize understanding of ongoing discharge plan provided related to disease management, arrangements for outpatient and/or community services, obtaining medications, supplies, and DME, as needed throughout certification period. Discharge No Improved Muscle Performance and/or ROM Description: Short term goal: Patient will demonstrate improved L knee ROM to 0-90 degress of AROM or greater, to be achieved by 11/15/21. PT Impaired muscle performance and/or ROM No Improved Transfers Description: Short term goal: Patient will demonstrate safe transfers to/from bed, chair and toilet independently, to be achieved by 11/08/21. PT Impaired mobility No Improved Gait Description: STG: Patient will demonstrate improved gait ability as evidenced by ambulation 125 feet with front wheeled walker with supervision, in order to access all areas of the home, to be achieved by 11/08/21. LTG: Patient will demonstrate improved gait ability as evidenced by ambulation 200 feet with front wheeled walker independently with AD, to return to safe community ambulation, to be achieved by 11/21/21. PT Impaired gait No Manage Orthopedic Condition Description: Improve patient and/or caregiver understanding of post surgical and/or non-surgical orthopedic intervention management as evidenced by patient and/or caregiver able to verbalize, demonstrate, and teach back instruction, to be achieved by 11/15/21. PT Orthopedic Condition No Demonstrate understanding of education Description: Patient and/or caregiver will understand educational instruction to be achieved by 11/15/21. PT Learning Assessment No Verbalize and/or demonstrate understanding of wound management Description: Improve patient and/or caregiver understanding of post surgical and/or non-surgical wound management as evidenced by patient and/or caregiver able to verbalize, demonstrate, and teach back instruction, to be achieved by 11/15/21. PT Wound Management No Interventions Intervention Associated Problem/Goal Status Variance Visit Notes Medication Education Description: Evaluate/instruct patient/caregiver on obtaining, storing, identifying and administering ordered medications as well as keeping accurate medication list in the home and adhereing to medication schedule Problem:Medication Education Goal:Patient/caregive r will demonstrate ability to obtain, store, identify and administer ordered medications, keep accurate medication list in home, and adhere to medication schedule Completed Patient instructed on importance of keeping accurate medication list in home and how to order refills. Risk of Sepsis Description: Patient is at risk for sepsis. Monitor closely for s/s of sepsis. Problem:Sepsis Goal:Patient/caregive r will be able to identify and report symptoms of sepsis Completed SPO2 Description: Notify Dr. Johnson if pulse ox is <92% at rest. Problem:Physician Specific Parameters Goal:Patient to maintain parameters within physician-specified ranges throughout certification period Completed Instruct on individual fall risk factors and strategies to prevent falls and injuries caused by falls. Problem:Risk for Falls Goal:Manage Risk for falls Completed PT: Patient instructed on Managing Impaired Functional Mobility: Use assistive device(s): front wheeled walker Instruct on pain and instruct on strategies to control pain Problem:Pain Goal:Manage Pain Completed patient instructed on techniques to control pain including Pharmacological measures and Non-Pharmacological measures; positioning/elevation and use of thermal modalities, apply ice to affected area for the following prescribed frequency: several times/day. Monitor lower extremities for skin lesions and educate on proper foot care Problem:Diabetic Foot Care Goal:Manage diabetic foot care Completed patient instructed on diabetic foot care including wearing proper footwear/avoiding going barefoot. Instruct on ongoing discharge plan Problem:Discharge Goal:Manage discharge planning Completed Ongoing Discharge plan: Discharge plan discussed with patient including frequency and duration for home PT and plan for transition to: outpatient therapy. Physical Therapy Therapeutic Exercises Problem:PT Impaired muscle performance and/or ROM Goal:Improved Muscle Performance and/or ROM Completed patient instructed on strengthening and range of motion exercises including ankle pumps, quad and glut sets, hip abd and adduction, saq w/ manual assist, and heel slides x's 10 each. supine ext hang x's3min seated heelsldes x's10 with verbal cues for correct form and hold times. patient instructed to perform home exercise program twice a day which included above exercises. Physical Therapy Transfer Training Problem:PT Impaired mobility Goal:Improved Transfers Completed Transfer training and instruction to patient on safe transfers to and from chair with supervision and verbal cues for safety. {.: Physical Therapy Gait Training Problem:PT Impaired gait Goal:Improved Gait Completed Gait training and instruction to patient on safe ambulation with front wheeled walker for 3x's20 feet with supervision, with verbal cues for corrections of gait deviations including heel to toe pattern. Instruct on orthopedic precautions and weight bearing restrictions Description: Orthopedic precautions including left total knee: no knee flexed over pillow at rest. Weight bearing restrictions include: WBAT of involved extremity. Problem:PT Orthopedic Condition Goal:Manage Orthopedic Condition Completed patient instructed on orthopedic precautions. Instruct on management of edema Problem:PT Orthopedic Condition Goal:Manage Orthopedic Condition Completed Instruct patient on management of edema including elevation of lle above the level of the heart and ice. Instruct and educate on knowledge deficits Problem:PT Learning Assessment Goal:Demonstrate understanding of education Completed patient verbalize and/or demonstrate understanding of physical therapy education including home exercise program. Education methods include: verbal cues and visual cues. Further education required to improve knowledge and compliance with home exercise program. Instruct and educate on wound management Description: Measure wounds weekly and as needed. Incision Location: left knee Removal of post-op dressing on 11/05/21. If no drainage is present, leave open to air; if drainage is present, cover with clean dressing and contact provider. Problem:PT Wound Management Goal:Verbalize and/or demonstrate understanding of wound management Completed Instructed patient on wound care: no lotions/creams or rubbing, signs and symptoms of infection, signs and symptoms of DVT/PE, instructed on when to call provider and instructed on when to call 911. documented in this encounter [facility]'s home Plan of care note* Visit Details Visit Type -PT ROUTINE Discipline -Physical Therapy Problems Problem Description Start Date Status Goals Interve ntions Medication Education Disciplines: Skilled Services 10/31/2021 Active 1 goal linked to scheduled/document ed intervention 1 goal intervention scheduled/document ed in this visit Sepsis Disciplines: Skilled Services 10/31/2021 Active 1 goal linked to scheduled/document ed intervention 1 goal intervention scheduled/document ed in this visit Physician Specific Parameters Disciplines: Skilled Services 10/31/2021 Active 1 goal linked to scheduled/document ed intervention 1 goal intervention scheduled/document ed in this visit Risk for Falls Disciplines: Skilled Services 10/31/2021 Active 1 goal linked to scheduled/document ed intervention 1 goal intervention scheduled/document ed in this visit Pain Disciplines: Skilled Services 10/31/2021 Active 1 goal linked to scheduled/document ed intervention 1 goal intervention scheduled/document ed in this visit Diabetic Foot Care Disciplines: Skilled Services 10/31/2021 Active 1 goal linked to scheduled/document ed intervention 1 goal intervention scheduled/document ed in this visit High Risk Medications Disciplines: Skilled Services 10/31/2021 Active 1 goal linked to scheduled/document ed intervention 2 goal interventions scheduled/document ed in this visit Discharge Disciplines: Skilled Services 10/31/2021 Active 1 goal linked to scheduled/document ed intervention 1 goal intervention scheduled/document ed in this visit PT Impaired muscle performance and/or ROM Disciplines: PT 10/31/2021 Active 1 goal linked to scheduled/document ed intervention 1 goal intervention scheduled/document ed in this visit PT Impaired mobility Disciplines: PT 10/31/2021 Active 1 goal linked to scheduled/document ed intervention 1 goal intervention scheduled/document ed in this visit PT Impaired gait Disciplines: PT 10/31/2021 Active 1 goal linked to scheduled/document ed intervention 1 goal intervention scheduled/document ed in this visit PT Orthopedic Condition Disciplines: PT 10/31/2021 Active 1 goal linked to scheduled/document ed intervention 2 goal interventions scheduled/document ed in this visit PT Learning Assessment Disciplines: PT 10/31/2021 Active 1 goal linked to scheduled/document ed intervention 1 goal intervention scheduled/document ed in this visit PT Wound Management Disciplines: PT Active 1 goal linked to scheduled/document ed intervention 1 goal intervention scheduled/document ed in this visit Goals Goal Associated Problem Outcome Goal Met? Visit Notes Patient/caregiver will demonstrate ability to obtain, store, identify and administer ordered medications, keep accurate medication list in home, and adhere to medication schedule Description: Patient/caregiver will demonstrate ability to obtain, store, identify and administer ordered medications, keep accurate medication list in home, and adhere to medication schedule by 11/15/21. Medication Education No Patient/caregiver will be able to identify and report symptoms of sepsis Description: Patient/caregiver will be able to identify signs/symptoms of sepsis infection and will verbalize actions to take if suspected by 11/15/21. Sepsis No Patient to maintain parameters within physician-specified ranges throughout certification period Physician Specific Parameters No Manage Risk for falls Description: Patient/caregiver will verbalize knowledge of individualized fall prevention strategies by 11/15/21. Risk for Falls No Manage Pain Description: Patient and/or caregiver will verbalize knowledge and understanding of appropriate techniques to control pain, including pain medication and non-pharmacological techniques. Patient will verbalize or demonstrate an acceptable level of pain as evidenced by pain of 2/10 or less at rest. To be achieved by 11/15/21. Pain No Manage diabetic foot care Description: Patient/caregiver will demonstrate basic understanding of and compliance with diabetic self-care management as evidenced by verbalizing purpose of daily foot care and assessment by 11/15/21. Diabetic Foot Care No Patient/caregiver will teach back high risk medication side effect and precaution education High Risk Medications No Manage discharge planning Description: Patient/caregiver will verbalize understanding of ongoing discharge plan provided related to disease management, arrangements for outpatient and/or community services, obtaining medications, supplies, and DME, as needed throughout certification period. Discharge No Improved Muscle Performance and/or ROM Description: Short term goal: Patient will demonstrate improved L knee ROM to 0-90 degress of AROM or greater, to be achieved by 11/15/21. PT Impaired muscle performance and/or ROM No Improved Transfers Description: Short term goal: Patient will demonstrate safe transfers to/from bed, chair and toilet independently, to be achieved by 11/08/21. PT Impaired mobility No Improved Gait Description: STG: Patient will demonstrate improved gait ability as evidenced by ambulation 125 feet with front wheeled walker with supervision, in order to access all areas of the home, to be achieved by 11/08/21. LTG: Patient will demonstrate improved gait ability as evidenced by ambulation 200 feet with front wheeled walker independently with AD, to return to safe community ambulation, to be achieved by 11/21/21. PT Impaired gait No Manage Orthopedic Condition Description: Improve patient and/or caregiver understanding of post surgical and/or non-surgical orthopedic intervention management as evidenced by patient and/or caregiver able to verbalize, demonstrate, and teach back instruction, to be achieved by 11/15/21. PT Orthopedic Condition No Demonstrate understanding of education Description: Patient and/or caregiver will understand educational instruction to be achieved by 11/15/21. PT Learning Assessment No Verbalize and/or demonstrate understanding of wound management Description: Improve patient and/or caregiver understanding of post surgical and/or non-surgical wound management as evidenced by patient and/or caregiver able to verbalize, demonstrate, and teach back instruction, to be achieved by 11/15/21. PT Wound Management No Interventions Intervention Associated Problem/Goal Status Variance Visit Notes Medication Education Description: Evaluate/instruct patient/caregiver on obtaining, storing, identifying and administering ordered medications as well as keeping accurate medication list in the home and adhereing to medication schedule Problem:Medication Education Goal:Patient/caregive r will demonstrate ability to obtain, store, identify and administer ordered medications, keep accurate medication list in home, and adhere to medication schedule Completed Patient instructed on importance of keeping accurate medication list in home and adhering to medication schedule. Risk of Sepsis Description: Patient is at risk for sepsis. Monitor closely for s/s of sepsis. Problem:Sepsis Goal:Patient/caregive r will be able to identify and report symptoms of sepsis Completed SPO2 Description: Notify Dr. Johnson if pulse ox is <92% at rest. Problem:Physician Specific Parameters Goal:Patient to maintain parameters within physician-specified ranges throughout certification period Completed Instruct on individual fall risk factors and strategies to prevent falls and injuries caused by falls. Problem:Risk for Falls Goal:Manage Risk for falls Completed PT: Patient instructed on Eliminating Environmental Hazards: Keep pathways clear and Remove unsafe rugs Managing Impaired Functional Mobility: Use assistive device(s): front wheeled walker Managing Pain Instruct on pain and instruct on strategies to control pain Problem:Pain Goal:Manage Pain Completed patient instructed on techniques to control pain including Pharmacological measures and Non-Pharmacological measures; rest, positioning/elevation and use of thermal modalities, apply ice to affected area Monitor lower extremities for skin lesions and educate on proper foot care Problem:Diabetic Foot Care Goal:Manage diabetic foot care Completed patient instructed on diabetic foot care including daily skin inspection and wearing proper footwear/avoiding going barefoot. Opioids- Instruct on high risk medication Problem:High Risk Medications Goal:Patient/caregive r will teach back high risk medication side effect and precaution education Completed patient instructed on the following: Possible side effects of opioid medication including sedation, decreased rate of breathing, and constipation. Instructed on reporting over sedation to prescribing physician, practice deep breathing techniques every hour while awake, and prevention of constipation by increasing water and fiber intake, increase activity as tolerated, and use stool softener as prescribed. Only take opioids as prescribed, do not share your medications, and take proper precautions in storing and properly disposing of opioids once no longer needed. Follow providers guidelines for driving and weaning from prescribed opioid. Insulin-Instruct on high risk medication Problem:High Risk Medications Goal:Patient/caregive r will teach back high risk medication side effect and precaution education Completed patient instructed on side effects of Insulin use including signs and symptoms of hypoglycemia such as increased weakness or shaking, moist skin, sweating, fast heartbeat, dizziness, sudden hunger, confusion, pale skin, numbness in mouth or tongue, irritability, nervousness, unsteadiness, nightmares, bad dreams, restless sleep and the importance of checking blood sugars as ordered by physician. Instruct on ongoing discharge plan Problem:Discharge Goal:Manage discharge planning Completed Ongoing Discharge plan: Discharge plan discussed with patient including frequency and duration for home PT and plan for transition to: outpatient therapy. Physical Therapy Therapeutic Exercises Problem:PT Impaired muscle performance and/or ROM Goal:Improved Muscle Performance and/or ROM Completed patient instructed on strengthening and range of motion exercises including Supine : GS,QS,HS, HIPADD, HIP BD, HEEL SLIDES, SAQ, X 10 with AA supine passive knee ext x 2 1/2 min seated knee flexion to 82* with verbal cues for technique . patient instructed to perform home exercise program twice a day which included hourly ambulation . Physical Therapy Transfer Training Problem:PT Impaired mobility Goal:Improved Transfers Completed Transfer training and instruction to patient on safe transfers to and from chair with supervision and verbal cues for technique . Physical Therapy Gait Training Problem:PT Impaired gait Goal:Improved Gait Completed Gait training and instruction to patient on safe ambulation with front wheeled walker for 25' x 3 feet with stand by assist, with verbal cues for corrections of gait deviations including develpopment of recip pattern /heel toe . Instruct on orthopedic precautions and weight bearing restrictions Description: Orthopedic precautions including left total knee: no knee flexed over pillow at rest. Weight bearing restrictions include: WBAT of involved extremity. Problem:PT Orthopedic Condition Goal:Manage Orthopedic Condition Completed patient instructed on orthopedic precautions and weight bearing restrictions. Instruct on management of edema Problem:PT Orthopedic Condition Goal:Manage Orthopedic Condition Completed Instruct patient on management of edema including elevation of LLE above the level of the heart and ice. Instruct and educate on knowledge deficits Problem:PT Learning Assessment Goal:Demonstrate understanding of education Completed patient verbalize and/or demonstrate understanding of physical therapy education including orthopedic condition management, weight bearing precautions, surgical precautions, pain management, functional activity and home exercise program. Education methods include: verbal cues. Further education required to improve knowledge and compliance with orthopedic condition management, weight bearing precautions, surgical precautions, functional activity and home exercise program. Instruct and educate on wound management Description: Measure wounds weekly and as needed. Incision Location: left knee Removal of post-op dressing on 11/05/21. If no drainage is present, leave open to air; if drainage is present, cover with clean dressing and contact provider. Problem:PT Wound Management Goal:Verbalize and/or demonstrate understanding of wound management Completed Instructed patient on signs and symptoms of infection, signs and symptoms of DVT/PE and instructed on when to call provider. [facility] Visit Details Visit Type -CERTIFIED NURSING ASSISTANT ROUTINE Discipline -Physical Therapy Problems Problem Description Start Date Status Goals Interve ntions Medication Education Disciplines: Skilled Services 10/31/2021 Active 1 goal linked to scheduled/document ed intervention 1 goal intervention scheduled/document ed in this visit Sepsis Disciplines: Skilled Services 10/31/2021 Active 1 goal linked to scheduled/document ed intervention 1 goal intervention scheduled/document ed in this visit Physician Specific Parameters Disciplines: Skilled Services 10/31/2021 Active 1 goal linked to scheduled/document ed intervention 1 goal intervention scheduled/document ed in this visit Risk for Falls Disciplines: Skilled Services 10/31/2021 Active 1 goal linked to scheduled/document ed intervention 1 goal intervention scheduled/document ed in this visit Pain Disciplines: Skilled Services 10/31/2021 Active 1 goal linked to scheduled/document ed intervention 1 goal intervention scheduled/document ed in this visit Diabetic Foot Care Disciplines: Skilled Services 10/31/2021 Active 1 goal linked to scheduled/document ed intervention 1 goal intervention scheduled/document ed in this visit Discharge Disciplines: Skilled Services 10/31/2021 Active 1 goal linked to scheduled/document ed intervention 2 goal interventions scheduled/document ed in this visit PT Impaired muscle performance and/or ROM Disciplines: PT 10/31/2021 Active 1 goal linked to scheduled/document ed intervention 1 goal intervention scheduled/document ed in this visit PT Impaired mobility Disciplines: PT 10/31/2021 Active 1 goal linked to scheduled/document ed intervention 1 goal intervention scheduled/document ed in this visit PT Impaired gait Disciplines: PT 10/31/2021 Active 2 goals linked to scheduled/document ed interventions 2 goal interventions scheduled/document ed in this visit PT Orthopedic Condition Disciplines: PT 10/31/2021 Active 1 goal linked to scheduled/document ed intervention 1 goal intervention scheduled/document ed in this visit PT Learning Assessment Disciplines: PT 10/31/2021 Active 1 goal linked to scheduled/document ed intervention 1 goal intervention scheduled/document ed in this visit Goals Goal Associated Problem Outcome Goal Met? Visit Notes Patient/caregiver will demonstrate ability to obtain, store, identify and administer ordered medications, keep accurate medication list in home, and adhere to medication schedule Description: Patient/caregiver will demonstrate ability to obtain, store, identify and administer ordered medications, keep accurate medication list in home, and adhere to medication schedule by 11/15/21. Medication Education No Patient/caregiver will be able to identify and report symptoms of sepsis Description: Patient/caregiver will be able to identify signs/symptoms of sepsis infection and will verbalize actions to take if suspected by 11/15/21. Sepsis No Patient to maintain parameters within physician-specified ranges throughout certification period Physician Specific Parameters No Manage Risk for falls Description: Patient/caregiver will verbalize knowledge of individualized fall prevention strategies by 11/15/21. Risk for Falls No Manage Pain Description: Patient and/or caregiver will verbalize knowledge and understanding of appropriate techniques to control pain, including pain medication and non-pharmacological techniques. Patient will verbalize or demonstrate an acceptable level of pain as evidenced by pain of 2/10 or less at rest. To be achieved by 11/15/21. Pain No Manage diabetic foot care Description: Patient/caregiver will demonstrate basic understanding of and compliance with diabetic self-care management as evidenced by verbalizing purpose of daily foot care and assessment by 11/15/21. Diabetic Foot Care No Manage discharge planning Description: Patient/caregiver will verbalize understanding of ongoing discharge plan provided related to disease management, arrangements for outpatient and/or community services, obtaining medications, supplies, and DME, as needed throughout certification period. Discharge No Improved Muscle Performance and/or ROM Description: Short term goal: Patient will demonstrate improved L knee ROM to 0-90 degress of AROM or greater, to be achieved by 11/15/21. PT Impaired muscle performance and/or ROM No Improved Transfers Description: Short term goal: Patient will demonstrate safe transfers to/from bed, chair and toilet independently, to be achieved by 11/08/21. PT Impaired mobility No Improved Stair Climbing Description: STG:: Patient will demonstrate improved stair negotiation as evidenced by ascend/descend 1 step with supervision with FWW, to be achieved by 11/08/21. LTG: Patient will demonstrate improved stair negotiation as evidenced by ascend/descend 1 step with Independently with LRAD, to safely access all areas of the home, to be achieved by 11/15/21. PT Impaired gait No Improved Gait Description: STG: Patient will demonstrate improved gait ability as evidenced by ambulation 125 feet with front wheeled walker with supervision, in order to access all areas of the home, to be achieved by 11/08/21. LTG: Patient will demonstrate improved gait ability as evidenced by ambulation 200 feet with front wheeled walker independently with AD, to return to safe community ambulation, to be achieved by 11/21/21. PT Impaired gait No Manage Orthopedic Condition Description: Improve patient and/or caregiver understanding of post surgical and/or non-surgical orthopedic intervention management as evidenced by patient and/or caregiver able to verbalize, demonstrate, and teach back instruction, to be achieved by 11/15/21. PT Orthopedic Condition No Demonstrate understanding of education Description: Patient and/or caregiver will understand educational instruction to be achieved by 11/15/21. PT Learning Assessment No Interventions Intervention Associated Problem/Goal Status Variance Visit Notes Medication Education Description: Evaluate/instruct patient/caregiver on obtaining, storing, identifying and administering ordered medications as well as keeping accurate medication list in the home and adhereing to medication schedule Problem:Medication Education Goal:Patient/caregive r will demonstrate ability to obtain, store, identify and administer ordered medications, keep accurate medication list in home, and adhere to medication schedule Completed Patient instructed on importance of keeping accurate medication list in home. Risk of Sepsis Description: Patient is at risk for sepsis. Monitor closely for s/s of sepsis. Problem:Sepsis Goal:Patient/caregive r will be able to identify and report symptoms of sepsis Completed SPO2 Description: Notify Dr. Johnson if pulse ox is <92% at rest. Problem:Physician Specific Parameters Goal:Patient to maintain parameters within physician-specified ranges throughout certification period Completed Instruct on individual fall risk factors and strategies to prevent falls and injuries caused by falls. Problem:Risk for Falls Goal:Manage Risk for falls Completed PT: Patient instructed on Managing Impaired Functional Mobility: Use assistive device(s): front wheeled walker Instruct on pain and instruct on strategies to control pain Problem:Pain Goal:Manage Pain Completed patient instructed on techniques to control pain including Pharmacological measures and Non-Pharmacological measures; positioning/elevation and use of thermal modalities, apply ice to affected area for the following prescribed frequency: prn. Monitor lower extremities for skin lesions and educate on proper foot care Problem:Diabetic Foot Care Goal:Manage diabetic foot care Completed patient instructed on diabetic foot care including wearing proper footwear/avoiding going barefoot. Deliver NOMNC Problem:Discharge Goal:Manage discharge planning Completed Delivered NOMNC on 11/11/21 for discharge date of 11/14/21. Patient denies questions/concerns with form. . Instruct on ongoing discharge plan Problem:Discharge Goal:Manage discharge planning Completed Ongoing Discharge plan: Discharge plan discussed with patient including frequency and duration for home PT and plan for transition to: outpatient therapy. Physical Therapy Therapeutic Exercises Problem:PT Impaired muscle performance and/or ROM Goal:Improved Muscle Performance and/or ROM Completed patient instructed on strengthening and range of motion exercises including ankle pumps, quad and glut sets, hip abd and adduction, saq and heel slides x's 10 each.slr w/ belt x's 10 seated laq x's 10 standing hamstring curls x's 10 seated heel slides x's 10 and supine extension hang x's 5minwith verbal cues for slower pace . patient instructed to perform home exercise program twice a day which included above exercises. Physical Therapy Transfer Training Problem:PT Impaired mobility Goal:Improved Transfers Completed Transfer training and instruction to patient on safe transfers to and from chair with supervision and verbal cues for safety. shower transfers w/ SBA and verbal cues for safety Physical Therapy Stair Training Problem:PT Impaired gait Goal:Improved Stair Climbing Completed Stair training and instruction to patient on safe stair climbing, ascend/descend 1 step over threshold at door , with WW with supervision and verbal cues for safety. Physical Therapy Gait Training Problem:PT Impaired gait Goal:Improved Gait Completed Gait training and instruction to patient on safe ambulation with quad cane for 2x's 25 feet with supervision, with verbal cues for corrections of gait deviations including proper sequencing and step pattern to encourage knee flexion. Instruct on management of edema Problem:PT Orthopedic Condition Goal:Manage Orthopedic Condition Completed Instruct patient on management of edema including elevation of LLE above the level of the heart and ice. Instruct and educate on knowledge deficits Problem:PT Learning Assessment Goal:Demonstrate understanding of education Completed patient verbalize and/or demonstrate understanding of physical therapy education including home exercise program. Education methods include: verbal cues. Further education required to improve knowledge and compliance with home exercise program. [facility] Diagnostic Procedure Only (Routine) - Pending Review Specialty Diagnoses / Procedures Referred By Osmani de la rosa Referred To Contact XR IMAGING Diagnoses Left knee pain, unspecified chronicity Procedures XR KNEE GENERAL 4V AP BOTH/PA BOTH/LAT/MERC LEFT RADIOLOGIC EXAM KNEE COMPLETE 4/MORE VIEWS Viet Johnson MD [address] [place] [address] Xr Imaging Referral ID Status Reason Start Date Expiration Date Visits Requested Visits Authorized [id number] Pending Review Auto-Generat ed Referral 09/09/2021 10/09/2022 1 1 [facility] Diagnostic Procedure Only (Routine) - Closed Specialty Diagnoses / Procedures Referred By Osmani de la rosa Referred To Contact XR IMAGING Diagnoses Left knee pain, unspecified chronicity Procedures XR KNEE GENERAL 4V AP BOTH/PA BOTH/LAT/MERC LEFT RADIOLOGIC EXAM KNEE COMPLETE 4/MORE VIEWS Viet Johnson MD [address] [place] [address] Xr Imaging Referral ID Status Reason Start Date Expiration Date V isits Requested Visits Authorized [id number] Closed Auto-Generate d Referral 09/09/2021 10/09/2022 1 1 [facility] for referral (narrative)* - Pending Review Specialty Diagnoses / Procedures Referred By Contac t Referred To Contact Physical Therapy Diagnoses Primary osteoarthritis of left knee Procedures CONSULT TO PHYSICAL THERAPY Kelli Davis PA-C [address] [place] [address] Referral ID Status Reason Start Date Expiration Date V isits Requested Visits Authorized [id number] Pending Review 11/05/2021 02/03/2022 1 1 [facility] for referral (narrative)* Diagnostic Procedure Only (Routine) - Pending Review Specialty Diagnoses / Procedures Referred By Contac t Referred To Contact XR IMAGING Diagnoses Primary osteoarthritis of left knee S/P total knee arthroplasty, left Procedures XR KNEE GENERAL 4V AP BOTH/PA BOTH/LAT/MERC LEFT RADIOLOGIC EXAM KNEE COMPLETE 4/MORE VIEWS Viet Johnson MD [address] [place] [address] Xr Imaging Referral ID Status Reason Start Date Expiration Date Visits Requested Visits Authorized [id number] Pending Review Auto-Generat ed Referral 11/06/2021 12/06/2022 1 1 [facility] for referral (narrative)* Diagnostic Procedure Only (Routine) - Authorized Specialty Diagnoses / Procedures Referred By Contac t Referred To Contact [facility] Diagnoses Cyst of right ovary Procedures PELVIC US WHI US PELVIC NONOBSTETRIC REAL-TIME IMAGE COMPLETE Neyhart Delacruz, Chyna, MD [address] [address] [address] Referral ID Status Reason Start Date Expiration Date Visits Requested Visits Authorized [id number] Authorized Auto-Generat ed Referral 06/14/2022 12/15/2022 1 1 [facility] for referral (narrative)* Outpatient Procedure (Routine) - Authorized Specialty Diagnoses / Procedures Referred By Contac t Referred To Contact [facility] Diagnoses Nocturnal hypoxemia SOB (shortness of breath) Procedures ECHO ECHO TTHRC R-T 2D W/WOM-MODE COMPL SPEC&COLR D Shawanda May MD [address] [place] [address] [address] Referral ID Status Reason Start Date Expiration Date Visits Requested Visits Authorized [id number] Authorized Auto-Generat ed Referral 03/10/2022 03/10/2023 1 1 * Outpatient Procedure (Routine) - Authorized Specialty Diagnoses / Procedures Referred By Contac t Referred To [facility] Diagnoses Nocturnal hypoxemia Procedures LUNG DIFFUSION CAPACITY (DLCO) DIFFUSING CAPACITY Shawanda May MD [address] [place] [address] [address] Referral ID Status Reason Start Date Expiration Date Visits Requested Visits Authorized [id number] Authorized Auto-Generat ed Referral 03/10/2022 04/09/2023 1 1 * Outpatient Procedure (Routine) - Pending Review Specialty Diagnoses / Procedures Referred By Contac t Referred To [facility] Diagnoses Nocturnal hypoxemia Procedures LUNG VOLUMES Shawanda May MD [address] [place] [address] Respiratory [place] [address] [place] [address] Referral ID Status Reason Start Date Expiration Date Visits Requested Visits Authorized [id number] Pending Review Auto-Generat ed Referral 03/10/2022 04/09/2023 1 1 * Outpatient Procedure (Routine) - Authorized Specialty Diagnoses / Procedures Referred By Contac t Referred To Contact [facility] Diagnoses Nocturnal hypoxemia Procedures SPIROMETRY BASELINE ONLY SPMTRY W/VC EXPIRATORY CHETNA W/WO MXML VOL VNTJ Shawanda May MD [address] [facility] [place] [address] Respiratory [place] [address] [place] [address] Referral ID Status Reason Start Date Expiration Date Visits Requested Visits Authorized [id number] Authorized Auto-Generat ed Referral 03/10/2022 04/09/2023 1 1 [facility] for referral (narrative)* Diagnostic Procedure Only (Routine) - Authorized Specialty Diagnoses / Procedures Referred By Contac t Referred To Contact [facility] Diagnoses Breast cancer screening by mammogram Procedures ANGELITA SCREENING SCREENING MAMMOGRAPHY BI 2-VIEW BREAST INC CAD Inna Small APRN.CNP [address] [place] [address] Br Imaging [address] [place] [address] Referral ID Status Reason Start Date Expiration Date Visits Requested Visits Authorized [id number] Authorized Auto-Generat ed Referral 03/13/2022 04/12/2023 1 1 [facility] for referral (narrative)* Diagnostic Procedure Only (Routine) - Authorized Specialty Diagnoses / Procedures Referred By Contac t Referred To Contact US IMAGING Diagnoses Elevated liver enzymes Procedures US ABD RIGHT UPPER QUADRANT US ABDOMINAL REAL TIME W/IMAGE LIMITED Inna Small 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 [address] [place] [address] Us Imaging [facility] Referral ID Status Reason Start Date Expiration Date Visits Requested Visits Authorized [id number] Authorized Auto-Generat ed Referral 10/12/2022 11/11/2023 1 1 [facility] for referral (narrative)* Outpatient Procedure (Routine) - Closed Specialty Diagnoses / Procedures Referred By Contac t Referred To Contact [facility] Diagnoses Elevated liver enzymes Fatty liver Procedures DDI VIBRATION CONTROLLED TRANSIENT ELASTOGRAPHY (VCTE) LIVER ELASTOGRAPHY W/O IMAG W/I&R Inna Small 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 [address] [place] [address] [facility] [address] [place] [address] Referral ID Status Reason Start Date Expiration Date V isits Requested Visits Authorized [id number] Closed Auto-Generate d Referral 10/29/2022 10/30/2023 1 1 [facility] for referral (narrative)* Diagnostic Procedure Only (Routine) - Closed Specialty Diagnoses / Procedures Referred By Contac t Referred To Contact US IMAGING Diagnoses Elevated liver enzymes Procedures US ABD RIGHT UPPER QUADRANT US ABDOMINAL REAL TIME W/IMAGE LIMITED Inna Small 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 [address] [place] [address] Us Imaging [facility] Referral ID Status Reason Start Date Expiration Date V isits Requested Visits Authorized [id number] Closed Auto-Generate d Referral 10/12/2022 11/11/2023 1 1 [facility] for referral (narrative)* Diagnostic Procedure Only (Routine) - Closed Specialty Diagnoses / Procedures Referred By Contac t Referred To Contact [facility] Diagnoses Breast cancer screening by mammogram Procedures ANGELITA SCREENING SCREENING MAMMOGRAPHY BI 2-VIEW BREAST INC CAD Inna Small 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 [address] [place] [address] [facility] [address] [place] [address] Referral ID Status Reason Start Date Expiration Date V isits Requested Visits Authorized [id number] Closed Auto-Generate d Referral 03/13/2022 04/12/2023 1 1 [facility] Diagnostic Procedure Only (Routine) - Pending Review Specialty Diagnoses / Procedures Referred By Contac t Referred To Contact XR IMAGING Diagnoses Bone anomaly Procedures XR TIBIA FIBULA 2V AP/LAT RIGHT RADIOLOGIC EXAMINATION TIBIA & FIBULA 2 VIEWS Inna Small 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 [address] [place] [address] [place] [address] Referral ID Status Reason Start Date Expiration Date Visits Requested Visits Authorized [id number] Pending Review Auto-Generat ed Referral 3 02/12/2024 1 1 [facility] for referral (narrative)* Diagnostic Procedure Only (Routine) - Authorized Specialty Diagnoses / Procedures Referred By Contac t Referred To Contact [facility] Diagnoses Encounter for screening mammogram for malignant neoplasm of breast Procedures ANGELITA SCREENING SCREENING MAMMOGRAPHY BI 2-VIEW BREAST INC CAD Inna Small 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 [address] [place] [address] [facility] [address] [place] [address] Referral ID Status Reason Start Date Expiration Date Visits Requested Visits Authorized [id number] Authorized Auto-Generat ed Referral 04/15/2023 05/14/2024 1 1 [facility] Diagnostic Procedure Only (Routine) - Closed Specialty Diagnoses / Procedures Referred By Contac t Referred To Contact [facility] Diagnoses Encounter for screening mammogram for malignant neoplasm of breast Procedures ANGELITA SCREENING SCREENING MAMMOGRAPHY BI 2-VIEW BREAST INC CAD Inna Small 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 [address] [place] [address] Br Imaging [address] [place] [address] Referral ID Status Reason Start Date Expiration Date V isits Requested Visits Authorized [id number] Closed Auto-Generate d Referral 04/15/2023 05/14/2024 1 1 [facility] for referral (narrative)* Diagnostic Procedure Only (Routine) - Closed Specialty Diagnoses / Procedures Referred By Contac t Referred To Contact XR IMAGING Diagnoses Chronic left shoulder pain Procedures XR SHOULDER GENERAL 3V OR MORE AP/TRUE AP/OTHER LEFT RADEX SHOULDER COMPLETE MINIMUM 2 VIEWS Inna Small 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 [address] [place] [address] [place] [address] Referral ID Status Reason Start Date Expiration Date V isits Requested Visits Authorized [id number] Closed Auto-Generate d Referral 07/15/2023 08/13/2024 1 1 [facility] for referral (narrative)* Diagnostic Procedure Only (Routine) - Closed Specialty Diagnoses / Procedures Referred By Contac t Referred To Contact XR IMAGING Diagnoses Fall, initial encounter Procedures XR KNEE GENERAL 4V AP BOTH/PA BOTH/LAT/MERC RT KNEE AP-WGT/LAT/CLAUDIAT Yary Mcnamara APRN.FAMILY SERVICE WORKER [address] [place] [address] [place] [address] Referral ID Status Reason Start Date Expiration Date V isits Requested Visits Authorized [id number] Closed Auto-Generate d Referral 09/27/2020 10/27/2021 1 1 [facility] for referral (narrative)* Diagnostic Procedure Only (Routine) - Authorized Specialty Diagnoses / Procedures Referred By Contac t Referred To Contact XR IMAGING Diagnoses Asymptomatic menopause Procedures DXA-AXIAL SKELETON DXA BONE DENSITY STUDY 1/> SITES AXIAL SKEL Inna Small 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 [address] [place] [address] [place] [address] Referral ID Status Reason Start Date Expiration Date Visits Requested Visits Authorized [id number] Authorized Auto-Generat ed Referral 01/20/2024 02/18/2025 1 1 * Diagnostic Procedure Only (Routine) - Authorized Specialty Diagnoses / Procedures Referred By Contac t Referred To Contact [facility] Diagnoses Encounter for screening mammogram for breast cancer Procedures ANGELITA SCREENING W TEOFILO SCREENING DIGITAL BREAST TOMOSYNTHESIS BI SCREENING MAMMOGRAPHY BI 2-VIEW BREAST INC CAD Inna Small 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 [address] [place] [address] [facility] [address] [place] [address] Referral ID Status Reason Start Date Expiration Date Visits Requested Visits Authorized [id number] Authorized Auto-Generat ed Referral 01/20/2024 02/18/2025 1 1 [facility] for visit Narrative* Diagnostic Procedure Only (Routine) - Closed Specialty Diagnoses / Procedures Referred By Contac t Referred To Contact XR IMAGING Diagnoses Left knee pain, unspecified chronicity Procedures XR KNEE GENERAL 4V AP BOTH/PA BOTH/LAT/MERC LEFT RADIOLOGIC EXAM KNEE COMPLETE 4/MORE VIEWS Viet Johnson MD [address] [place] [address] Xr Imaging Referral ID Status Reason Start Date Expiration Date V isits Requested Visits Authorized [id number] Closed Auto-Generate d Referral 09/09/2021 10/09/2022 1 1 [facility] for visit Narrative* Outpatient Procedure (Routine) - Closed Specialty Diagnoses / Procedures Referred By Contac t Referred To Contact [facility] Diagnoses Elevated liver enzymes Fatty liver Procedures DDI VIBRATION CONTROLLED TRANSIENT ELASTOGRAPHY (VCTE) LIVER ELASTOGRAPHY W/O IMAG W/I&R Inna Small 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 [address] [place] [address] [facility] [address] [place] [address] Referral ID Status Reason Start Date Expiration Date V isits Requested Visits Authorized [id number] Closed Auto-Generate d Referral 10/29/2022 10/30/2023 1 1 [facility] for visit Narrative* Diagnostic Procedure Only (Routine) - Closed Specialty Diagnoses / Procedures Referred By Contac t Referred To Contact [facility] Diagnoses Breast cancer screening by mammogram Procedures ANGELITA SCREENING SCREENING MAMMOGRAPHY BI 2-VIEW BREAST INC CAD Inna Small, 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 [address] [place] [address] [facility] [address] [place] [address] Referral ID Status Reason Start Date Expiration Date V isits Requested Visits Authorized [id number] Closed Auto-Generate d Referral 03/13/2022 04/12/2023 1 1 [facility] for visit Narrative* Diagnostic Procedure Only (Routine) - Closed Specialty Diagnoses / Procedures Referred By Contac t Referred To Contact [facility] Diagnoses Encounter for screening mammogram for malignant neoplasm of breast Procedures ANGELITA SCREENING SCREENING MAMMOGRAPHY BI 2-VIEW BREAST INC CAD Inna Small, 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 [address] [place] [address] [facility] [address] [place] [address] Referral ID Status Reason Start Date Expiration Date V isits Requested Visits Authorized [id number] Closed Auto-Generate d Referral 04/15/2023 05/14/2024 1 1 [facility] for visit Narrative* Diagnostic Procedure Only (Routine) - Closed Specialty Diagnoses / Procedures Referred By Contac t Referred To Contact XR IMAGING Diagnoses Chronic left shoulder pain Procedures XR SHOULDER GENERAL 3V OR MORE AP/TRUE AP/OTHER LEFT RADEX SHOULDER COMPLETE MINIMUM 2 VIEWS Inna Small, 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 [address] [place] [address] [place] [address] Referral ID Status Reason Start Date Expiration Date V isits Requested Visits Authorized [id number] Closed Auto-Generate d Referral 07/15/2023 08/13/2024 1 1 [facility] for visit Narrative* Diagnostic Procedure Only (Routine) - Closed Specialty Diagnoses / Procedures Referred By Contac t Referred To Contact XR IMAGING Diagnoses Fall, initial encounter Procedures XR KNEE GENERAL 4V AP BOTH/PA BOTH/LAT/MERC RT KNEE AP-WGT/LAT/MERCHANT Yary Mcnamara, DRY HEAT CABINET ATTENDANT.FAMILY SERVICE WORKER [address] [place] [address] [place] [address] Referral ID Status Reason Start Date Expiration Date V isits Requested Visits Authorized [id number] Closed Auto-Generate d Referral 09/27/2020 10/27/2021 1 1 [facility] for visit Narrative* Diagnostic Procedure Only (Routine) - Closed Specialty Diagnoses / Procedures Referred By Osmani t Referred To Contact [facility] Diagnoses Encounter for screening mammogram for breast cancer Procedures ANGELITA SCREENING W TEOFILO SCREENING DIGITAL BREAST TOMOSYNTHESIS BI SCREENING MAMMOGRAPHY BI 2-VIEW BREAST INC CAD Inna Small, 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 [address] [place] [address] Phone: tel: fax: [facility] [address] [place] [address] Referral ID Status Reason Start Date Expiration Date V isits Requested Visits Authorized [id number] Closed Auto-Generate d Referral 01/20/2024 02/18/2025 1 1 [facility] for visit Narrative* Diagnostic Procedure Only (Routine) - Closed Specialty Diagnoses / Procedures Referred By Contac t Referred To Contact XR IMAGING Diagnoses Asymptomatic menopause Procedures DXA-AXIAL SKELETON DXA BONE DENSITY STUDY /> SITES AXIAL SKEL Inna Small, 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 [address] [place] [address] Phone: tel: fax: [place] [address] Referral ID Status Reason Start Date Expiration Date V isits Requested Visits Authorized [id number] Closed Auto-Generate d Referral 01/20/2024 02/18/2025 1 1 [facility] Advance Directives No Advanced Directives Records FoundDocuments on File Type Date Recorded Patient Bag Maker Expl anation Advance Directive(s) 08/13/2016 8:14 AM Date Activated Date Inactivated Comments 10/31/2021 10:03 PM 01/23/2022 9:55 AM Documents on File Type Date Recorded Patient Bag Maker Expl anation ACP-Advance Directive 05/10/2020 Latest Code Status on File Code Status Date Activated Date Inactivated Comments Full Code 05/28/2021 12:51 PM 05/29/2021 7:00 PM Full Code 05/28/2021 5:35 AM 05/28/2021 12:48 PM Full Code 09/03/2020 1:03 PM 09/04/2020 2:40 AM Documents on File Type Date Recorded Patient Bag Maker Expl anation ACP-Advance Directive 05/10/2020 12:00 AM Latest Code Status on File Code Status Date Activated Date Inactivated Comments Full Code 09/03/2020 1:03 PM Latest Code Status on File Code Status Date Activated Date Inactivated Comments Full Code 09/03/2020 1:03 PM 09/04/2020 2:40 AM Documents on File Type Date Recorded Patient Bag Maker Expl anation Advance Directive(s) 04/24/2019 1:41 PM Advance Directive(s) 04/06/2019 4:39 PM Advance Directive(s) 02/04/2017 9:36 AM Advance Directive(s) 08/26/2016 1:36 PM Advance Directive(s) 08/13/2016 8:14 AM Advance Directive(s) 06/23/2016 2:40 PM Advance Directive(s) 11/22/2015 6:53 AM Advance Directive(s) 11/19/2015 8:43 AM Documents on File Type Date Recorded Patient Bag Maker Expl anation Advance Directive(s) 04/24/2019 1:41 PM Advance Directive(s) 04/06/2019 4:39 PM Advance Directive(s) 02/04/2017 9:36 AM Advance Directive(s) 08/26/2016 1:36 PM Advance Directive(s) 08/13/2016 8:14 AM Advance Directive(s) 06/23/2016 2:40 PM Advance Directive(s) 11/22/2015 6:53 AM Advance Directive(s) 11/19/2015 8:43 AM Documents on File Type Date Recorded Patient Bag Maker Expl anation Advance Directive(s) 08/13/2016 8:14 AM Latest Code Status on File Code Status Date Activated Date Inactivated Comments Full Code 10/31/2021 10:03 PM Latest Code Status on File Code Status Date Activated Date Inactivated Comments Full Code 10/31/2021 10:03 PM Latest Code Status on File Code Status Date Activated Date Inactivated Comments Full Code 10/31/2021 10:03 PM 01/23/2022 9:55 AM Latest Code Status on File Code Status Date Activated Date Inactivated Comments Full Code 10/31/2021 10:03 PM 01/23/2022 9:55 AM Advance Directive Response Recorded Date/ Time Advance Directives Yes March 17, 2016 4:00pm Living Will Yes December 08 3:26pm Power of E Commerce Architect Yes December 08, 2020 3:26pm Advance Directive Response Recorded Date/ Time Advance Directives Yes March 17, 2016 5:00pm Living Will Yes July 24, 2022 9 :31am Power of E Commerce Architect Yes July 24, 2022 9:31am Name of Medical Power of E Commerce Architect FAMILY July 24, 2022 9:31am Latest Code Status on File Code Status Date Activated Date Inactivated Comments Full Code 10/31/2021 10:03 PM 01/23/2022 9:55 AM Latest Code Status on File Code Status Date Activated Date Inactivated Comments Full Code 10/31/2021 10:03 PM 01/23/2022 9:55 AM Date Activated Date Inactivated Comments 10/31/2021 10:03 PM 01/23/2022 9:55 AM Summary Purpose Family History No Family History Records Found Relationship Condition Age at Onset Recorded Date/T kb Unknown Family History?No pe rtinent history Unknown March 17, 2016 5:32pm Family History?No pe rtinent history Unknown March 17, 2016 5:32pm Relationship Condition Age at Onset Recorded Date/T kb Unknown Family History?No pe rtinent history Unknown March 17, 2016 6:32pm Family History?No pe rtinent history Unknown March 17, 2016 6:32pm Reason for Referral Specialty Diagnoses / Procedures Referred By Contshahid t Referred To Contact Diagnoses Sleep apnea, unspecified type S/P bariatric surgery Procedures CONSULT TO SLEEP MEDICINE - ADULT OFFICE/OUTPATIENT [facility] 60-74 MINUTES Modesta Daley MD [address] [place] [address] Referral ID Status Reason Start Date Expiration Date Visits Requested Visits Authorized [id number] Pending Review PCP Requested Referral 08/11/2021 08/11/2022 1 1 Specialty Diagnoses / Procedures Referred By Contac t Referred To Contact CT IMAGING Diagnoses Pre-op exam Procedures CT KNEE WO IVCON LT CT LOWER EXTREMITY W/O CONTRAST MATERIAL Kelli Davis PA-C [address] [place] [address] Ct Imaging Referral ID Status Reason Start Date Expiration Date V isits Requested Visits Authorized [id number] Closed Auto-Generate d Referral 09/16/2021 10/16/2022 1 1 Specialty Diagnoses / Procedures Referred By Contac t Referred To Contact CT IMAGING Diagnoses Other intra-abdominal and pelvic swelling, mass and lump Procedures CT PELVIS W IVCON CT PELVIS W/CONTRAST MATERIAL Inna Small APRN.CNP [address] [place] [address] Ct Imaging Referral ID Status Reason Start Date Expiration Date Visits Requested Visits Authorized [id number] Authorized Auto-Generat ed Referral 11/12/2021 12/12/2022 1 1 Specialty Diagnoses / Procedures Referred By Contac t Referred To Contact MR IMAGING Diagnoses Other intra-abdominal and pelvic swelling, mass and lump Procedures MRI FEMALE PELVIS WO/W IVCON MRI PELVIS W/O & W/CONTRAST MATERIAL Modesta Daley MD [address] [place] [address] Mr Imaging Referral ID Status Reason Start Date Expiration Date Visits Requested Visits Authorized [id number] Pending Review Auto-Generat ed Referral 11/11/2021 12/11/2022 1 1 Referral ID Status Reason Start Date Expiration Date V isits Requested Visits Authorized [id number] Closed Auto-Generate d Referral 11/12/2021 12/12/2022 1 1 Specialty Diagnoses / Procedures Referred By Contac t Referred To Contact [facility] Diagnoses Vertigo Procedures CONSULT TO PHYSICAL THERAPY PHYSICAL THERAPY EVALUATION HIGH COMPLEX 45 MINS Kelli Davis PA-C [address] [place] [address] [facility] [address] [place] [address] Referral ID Status Reason Start Date Expiration Date Visits Requested Visits Authorized [id number] Pending Review Auto-Generat ed Referral 02/11/2023 1 1 Specialty Diagnoses / Procedures Referred By Contac t Referred To Contact Orthopedics Diagnoses Chronic left shoulder pain Procedures CONSULT TO ORTHOPAEDICS OFFICE/OUTPATIENT NEW HIGH MDM 60 MINUTES Inna Small 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 [address] [place] [address] Referral ID Status Reason Start Date Expiration Date Visits Requested Visits Authorized [id number] Authorized PCP Requested Referral 07/15/2023 07/14/2024 1 1 Specialty Diagnoses / Procedures Referred By Contac t Referred To Contact XR IMAGING Diagnoses Chronic left shoulder pain Procedures XR SHOULDER GENERAL 3V OR MORE AP/TRUE AP/OTHER LEFT RADEX SHOULDER COMPLETE MINIMUM 2 VIEWS Inna Small 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 [address] [place] [address] Xr Imaging [facility] Referral ID Status Reason Start Date Expiration Date V isits Requested Visits Authorized [id number] Closed Auto-Generate d Referral 07/15/2023 08/13/2024 1 1 Specialty Diagnoses / Procedures Referred By Contac t Referred To Contact Diagnoses Uncontrolled type 2 diabetes mellitus with hyperglycemia (HCC) Inna Small, LARISSA.HOURLY SHIFT MANAGER [address] [place] [address] Referral ID Status Reason Start Date Expiration Date Visits Re quested Visits Authorized [id number] Closed 1 1 Specialty Diagnoses / Procedures Referred By Contac t Referred To Contact Occupational Therapy Diagnoses Parkinson's disease, unspecified whether dyskinesia present, unspecified whether manifestations fluctuate (HCC) Tardive dyskinesia Procedures CONSULT TO INGREDIENT SCALER HELPER Modesta Daley MD [address] [place] [address] Referral ID Status Reason Start Date Expiration Date Visits Requested Visits Authorized [id number] Authorized PCP Requested Referral 03/20/2024 03/20/2025 1 1 Chief Complaint and Reason for Visit Chief Complaint ARIANA Chief Complaint LAP BSO, RT OVARIAN CYSTECTOMY Additional Source Comments Care Teams (unrecognized sec tion and content) Molded Goods Spot Picker Relationship Specialty Start Date End Date Modesta Daley MD [address] [place] [address] PCP - General Internal Medicine 05/02/20 Molded Goods Spot Picker Relationship Specialty Start Date End Date Modesta Daley MD [address] [place] [address] PCP - General Internal Medicine 05/02/20 Molded Goods Spot Picker Relationship Specialty Start Date End Date Modesta Daley MD [address] [place] [address] PCP - General Internal Medicine 12/28/12 [facility] Whit[facility] [address] [place] [address] Referring Gastroenterology 12/05/18 Donis Harris, [facility] [address] [place] [address] Pharmacist Pharmacy 06/23/19 Sharita Cobb, [facility] [address] [place] [address] Pharmacist Pharmacy 09/05/20 Molded Goods Spot Picker Relationship Specialty Start Date End Date Modesta Daley MD [address] [place] [address] PCP - General Internal Medicine 12/28/12 [facility] Whit[facility] [address] [place] [address] Referring Gastroenterology 12/05/18 Donis Harris, [facility] [address] [place] [address] Pharmacist Pharmacy 06/23/19 Sharita Cobb, [facility] [address] [place] [address] Pharmacist Pharmacy 09/05/20 Molded Goods Spot Picker Relationship Specialty Start Date End Date Modesta Daley MD [address] [place] [address] PCP - General Internal Medicine 12/28/12 [facility]man[facility] [address] [place] [address] Referring Gastroenterology 12/05/18 Donis Harris, [facility] [address] [place] [address] Pharmacist Pharmacy 06/23/19 Sharita Cobb, [facility] [address] [place] [address] Pharmacist Pharmacy 09/05/20 Molded Goods Spot Picker Relationship Specialty Start Date End Date Modesta Daley MD [address] [place] [address] PCP - General Internal Medicine 12/28/12 [facility] [address] [place] [address] Referring Gastroenterology 12/05/18 Donis Harris, [facility] [address] [place] [address] Pharmacist Pharmacy 06/23/19 Sharita Cobb, [facility] [address] [place] [address] Pharmacist Pharmacy 09/05/20 Molded Goods Spot Picker Relationship Specialty Start Date End Date Modesta Daley MD [address] [place] [address] PCP - General Internal Medicine 12/28/12 Everton Whitman [facility] [address] [place] [address] Referring Gastroenterology 12/05/18 ArnieDonis duran, [facility] [address] [place] [address] Pharmacist Pharmacy 06/23/19 Jordyn, Shariat, [facility] [address] [place] [address] Pharmacist Pharmacy 09/05/20 Molded Goods Spot Picker Relationship Specialty Start Date End Date Modesta Daley MD [address] [place] [address] PCP - General Internal Medicine 12/28/12 Everton Whitman [facility] [address] [place] [address] Referring Gastroenterology 12/05/18 Mireille Patrickmarija, [facility] [address] [place] [address] Pharmacist Pharmacy 06/23/19 Wingate, Sharita, [facility] [address] [place] [address] Pharmacist Pharmacy 09/05/20 Molded Goods Spot Picker Relationship Specialty Start Date End Date Modesta Daley MD [address] [place] [address] PCP - General Internal Medicine 12/28/12 Everton Whitman [facility] [address] [place] [address] Referring Gastroenterology 12/05/18 ArnieDonis duran, [facility] [address] [place] [address] Pharmacist Pharmacy 06/23/19 Sharita Cobb, [facility] [address] [place] [address] Pharmacist Pharmacy 09/05/20 Molded Goods Spot Picker Relationship Specialty Start Date End Date Modesta Daley MD [address] [place] [address] PCP - General Internal Medicine 12/28/12 Everton Whitman [facility] [address] [place] [address] Referring Gastroenterology 12/05/18 Donis Harris, [facility] [address] [place] [address] Pharmacist Pharmacy 06/23/19 [facility] [address] [place] [address] Pharmacist Pharmacy 09/05/20 Molded Goods Spot Picker Relationship Specialty Start Date End Date Modesta Daley MD [address] [place] [address] PCP - General Internal Medicine 12/28/12 Everton Whitman [address] [facility] [address] [place] [address] Referring Gastroenterology 12/05/18 Donis Harris, [facility] [address] [place] [address] Pharmacist Pharmacy 06/23/19 Sharita Cobb, [facility] [address] [place] [address] Pharmacist Pharmacy 09/05/20 Molded Goods Spot Picker Relationship Specialty Start Date End Date Modesta Daley MD [address] [place] [address] PCP - General Internal Medicine 05/02/20 Molded Goods Spot Picker Relationship Specialty Start Date End Date Modesta Daley MD [address] [place] [address] PCP - General Internal Medicine 12/28/[address] [place] [address] Referring Gastroenterology 12/05/18 Donis Harris, [facility] [address] [place] [address] Pharmacist Pharmacy 06/23/19 Sharita Cobb, [facility] [address] [place] [address] Pharmacist Pharmacy 09/05/20 Molded Goods Spot Picker Relationship Specialty Start Date End Date Modesta Daley MD [address] [place] [address] PCP - General Internal Medicine 12/28/12 Everton Whitman E [facility] [address] [place] [address] Referring Gastroenterology 12/05/18 ArnieDonis duran, [facility] [address] [place] [address] Pharmacist Pharmacy 06/23/19 Sharita Cobb, [facility] [address] [place] [address] Pharmacist Pharmacy 09/05/20 Molded Goods Spot Picker Relationship Specialty Start Date End Date Modesta Daley MD [address] [place] [address] PCP - General Internal Medicine 12/28/[address] [place] [address] Referring Gastroenterology 12/05/18 ArnieDonis duran, [facility] [address] [place] [address] Pharmacist Pharmacy 06/23/19 Sharita Cobb, [facility] [address] [place] [address] Pharmacist Pharmacy 09/05/20 Molded Goods Spot Picker Relationship Specialty Start Date End Date Modesta Daley MD [address] [place] [address] PCP - General Internal Medicine 05/02/20 Molded Goods Spot Picker Relationship Specialty Start Date End Date Modesta Daley MD [address] [place] [address] PCP - General Internal Medicine 12/28/12 [facility] [address] [place] [address] Referring Gastroenterology 12/05/18 Donis Harris, [facility] [address] [place] [address] Pharmacist Pharmacy 06/23/19 Sharita Cobb, [facility] [address] [place] [address] Pharmacist Pharmacy 09/05/20 Molded Goods Spot Picker Relationship Specialty Start Date End Date Modesta Daley MD [address] [place] [address] PCP - General Internal Medicine 12/28/12 Everton Whitman [facility] [address] [place] [address] Referring Gastroenterology 12/05/18 Donis Harris, [facility] [address] [place] [address] Pharmacist Pharmacy 06/23/19 Sharita Cobb, [facility] [address] [place] [address] Pharmacist Pharmacy 09/05/20 Molded Goods Spot Picker Relationship Specialty Start Date End Date Modesta Daley MD [address] [place] [address] PCP - General Internal Medicine 12/28/12 [address] [place] [address] Referring Gastroenterology 12/05/18 Donis Harris, [facility] [address] [place] [address] Pharmacist Pharmacy 06/23/19 [facility] [address] [place] [address] Pharmacist Pharmacy 09/05/20 Molded Goods Spot Picker Relationship Specialty Start Date End Date Modesta Daley MD [address] [place] [address] PCP - General Internal Medicine 12/28/12 [address] [place] [address] Referring Gastroenterology 12/05/18 Donis Harris, [facility] [address] [place] [address] Pharmacist Pharmacy 06/23/19 [facility] [address] [place] [address] Pharmacist Pharmacy 09/05/20 Molded Goods Spot Picker Relationship Specialty Start Date End Date Modesta Daley MD [address] [place] [address] PCP - General Internal Medicine 12/28/12 Everton Whitman [address] [place] [address] Referring Gastroenterology 12/05/18 ArnieDonis duran, [facility] [address] [place] [address] Pharmacist Pharmacy 06/23/19 Jordyn, Sharita, [facility] [address] [place] [address] Pharmacist Pharmacy 09/05/20 Molded Goods Spot Picker Relationship Specialty Start Date End Date Modesta Daley MD [address] [place] [address] PCP - General Internal Medicine 12/28/12 [facility] [address] [place] [address] Referring Gastroenterology 12/05/18 ArnieDonis duran, [facility] [address] [place] [address] Pharmacist Pharmacy 06/23/19 [facility]ynSharita [facility] [address] [place] [address] Pharmacist Pharmacy 09/05/20 [facility], [facility] [address] [place] [address] Specialty Master Planner Orthopedics 10/07/21 12/09/21 Molded Goods Spot Picker Relationship Specialty Start Date End Date Modesta Daley MD [address] [facility] [place] [address] PCP - General Internal Medicine 12/28/12 Everton Whitman [facility] [address] [place] [address] Referring Gastroenterology 12/05/18 Donis Harris, [facility] [address] [place] [address] Pharmacist Pharmacy 06/23/19 Sharita Cobb, [facility] [address] [place] [address] Pharmacist Pharmacy 09/05/20 Conner Mason, [facility] [address] [place] [address] Specialty Master Planner Orthopedics 10/07/21 12/09/21 Molded Goods Spot Picker Relationship Specialty Start Date End Date Modesta Daley MD [address] [place] [address] PCP - General Internal Medicine 12/28/12 Everton Whitman [facility] [address] [place] [address] Referring Gastroenterology 12/05/18 Donis Harris, [facility] [address] [place] [address] Pharmacist Pharmacy 06/23/19 Sharita Cobb [facility] [address] [place] [address] Pharmacist Pharmacy 09/05/20 Conner Mason, [facility] [address] [place] [address] Specialty Master Planner Orthopedics 10/07/21 12/09/21 Molded Goods Spot Picker Relationship Specialty Start Date End Date Modesta Daley MD [address] [place] [address] PCP - General Internal Medicine 12/28/12 Everton Whitman [facility] [address] [place] [address] Referring Gastroenterology 12/05/18 Donis Harris [facility] [address] [place] [address] Pharmacist Pharmacy 06/23/19 Sharita Cobb, [facility] [address] [place] [address] Pharmacist Pharmacy 09/05/20 Conner Mason, [facility] [address] [place] [address] Specialty Master Planner Orthopedics 10/07/21 12/09/21 Molded Goods Spot Picker Relationship Specialty Start Date End Date Modesta Daley MD [address] [place] [address] PCP - General Internal Medicine 12/28/12 Everton Whitman E [facility] [address] [place] [address] Referring Gastroenterology 12/05/18 Donis Harris, [facility] [address] [place] [address] Pharmacist Pharmacy 06/23/19 [facility] [address] [place] [address] Pharmacist Pharmacy 09/05/20 Conner Mason, [facility] [address] [place] [address] Specialty Master Planner Orthopedics 10/07/21 12/09/21 Molded Goods Spot Picker Relationship Specialty Start Date End Date Modesta Daley MD [address] [place] [address] PCP - General Internal Medicine 12/28/12 Everton Whitman E [facility] [address] [place] [address] Referring Gastroenterology 12/05/18 Donis Harris, [facility] [address] [place] [address] Pharmacist Pharmacy 06/23/19 Sharita Cobb [facility] [address] [place] [address] Pharmacist Pharmacy 09/05/20 Conner Mason, [facility] [address] [place] [address] Specialty Master Planner Orthopedics 10/07/21 12/09/21 Molded Goods Spot Picker Relationship Specialty Start Date End Date Modesta Daley MD [address] [place] [address] PCP - General Internal Medicine 12/28/12 Everton Whitman E [facility] [address] [place] [address] Referring Gastroenterology 12/05/18 Donis Harris, [facility] [address] [place] [address] Pharmacist Pharmacy 06/23/19 Sharita Cobb [facility] [address] [place] [address] Pharmacist Pharmacy 09/05/20 Conner Mason [facility] [address] [place] [address] Specialty Master Planner Orthopedics 10/07/21 12/09/21 Viet Johnson MD [address] [facility] [place] [address] Home Care Provider Orthopedics 10/30/21 Aung Man PA-C [address] [place] [address] Referring Orthopedics 10/30/21 Molded Goods Spot Picker Relationship Specialty Start Date End Date Modesta Daley MD [address] [place] [address] PCP - General Internal Medicine 12/28/12 Eevrton Whitman E [facility] [address] [place] [address] Referring Gastroenterology 12/05/18 Donis Harris, [facility] [address] [place] [address] Pharmacist Pharmacy 06/23/19 Sharita Cobb [facility] [address] [place] [address] Pharmacist Pharmacy 09/05/20 Conner Mason, [facility] [address] [place] [address] Specialty Master Planner Orthopedics 10/07/21 12/09/21 Viet Johnson MD [address] [place] [address] Home Care Provider Orthopedics 10/30/21 Aung Man PA-C [address] [place] [address] Referring Orthopedics 10/30/21 Jemima Brunner, PT [address] [place] [address] Crab Fisherman Post Acute Care 10/30/21 Molded Goods Spot Picker Relationship Specialty Start Date End Date Modesta Daley MD [address] [place] [address] PCP - General Internal Medicine 12/28/12 Everton Whitman [address] [address] Referring Gastroenterology 12/05/18 Donis Harris, [facility] [address] [place] [address] Pharmacist Pharmacy 06/23/19 Sharita Cobb, [facility] [address] [place] [address] Pharmacist Pharmacy 09/05/20 Conner Mason, [facility] [address] [place] [address] Specialty Master Planner Orthopedics 10/07/21 12/09/21 Viet Johnson MD [address] [place] [address] Home Care Provider Orthopedics 10/30/21 Aung Man PA-C [address] [place] [address] Referring Orthopedics 10/30/21 Jemima Brunner, PT [address] [place] [address] Crab Fisherman Post Acute Care 10/30/21 Molded Goods Spot Picker Relationship Specialty Start Date End Date Modesta Daley MD [address] [place] [address] PCP - General Internal Medicine 12/28/12 Everton Whitman [address] [address] Referring Gastroenterology 12/05/18 Donis Harris, [facility] [address] [place] [address] Pharmacist Pharmacy 06/23/19 [facility] [address] [place] [address] Pharmacist Pharmacy 09/05/20 Conner Mason, [facility] [address] [place] [address] Specialty Master Planner Orthopedics 10/07/21 12/09/21 Viet Johnson MD [address] [place] [address] Home Care Provider Orthopedics 10/30/21 Aung Man PA-C [address] [place] [address] Referring Orthopedics 10/30/21 Jemima Brunner, PT [address] [place] [address] Crab Fisherman Post Acute Care 10/30/21 Molded Goods Spot Picker Relationship Specialty Start Date End Date Modesta Daley MD [address] [place] [address] PCP - General Internal Medicine 12/28/12 Everton Whitman [address] [facility] [address] [place] [address] Referring Gastroenterology 12/05/18 Donis Harris, [facility] [address] [place] [address] Pharmacist Pharmacy 06/23/19 [facility] [address] [place] [address] Pharmacist Pharmacy 09/05/20 Conner Mason [facility] [address] [place] [address] Specialty Master Planner Orthopedics 10/07/21 12/09/21 Viet Johnson MD [address] [place] [address] Home Care Provider Orthopedics 10/30/21 Aung Man PA-C [address] [place] [address] Referring Orthopedics 10/30/21 Jemima Brunner, PT [address] [place] [address] Crab Fisherman Post Acute Care 10/30/21 Molded Goods Spot Picker Relationship Specialty Start Date End Date [place]esta Daley MD [address] [place] [address] PCP - General Internal Medicine 12/28/12 Everton Whitman [address] [facility] [address] [place] [address] Referring Gastroenterology 12/05/18 Donis Harris [facility] [address] [place] [address] Pharmacist Pharmacy 06/23/19 Sharita Cobb [facility] [address] [place] [address] Pharmacist Pharmacy 09/05/20 Conner Mason, [facility] [address] [place] [address] Specialty Master Planner Orthopedics 10/07/21 12/09/21 Viet Johnson MD [address] [place] [address] Home Care Provider Orthopedics 10/30/21 Aung Man PA-C [address] [place] [address] Referring Orthopedics 10/30/21 Jemima Brunner, PT [address] [place] [address] Crab Fisherman Post Acute Care 10/30/21 Molded Goods Spot Picker Relationship Specialty Start Date End Date Modesta Daley MD [address] [place] [address] PCP - General Internal Medicine 12/28/12 Everton Whitman [address] [facility] [address] [address] Referring Gastroenterology 12/05/18 Donis Harris, [facility] [address] [place] [address] Pharmacist Pharmacy 06/23/19 Sharita Cobb, [facility] [address] [place] [address] Pharmacist Pharmacy 09/05/20 Conner Mason, [facility] [address] [place] [address] Specialty Master Planner Orthopedics 10/07/21 12/09/21 Viet Johnson MD [address] [place] [address] Home Care Provider Orthopedics 10/30/21 Aung Man PA-C [address] [place] [address] Referring Orthopedics 10/30/21 Jemima Brunner, PT [address] [place] [address] Crab Fisherman Post Acute Care 10/30/21 Molded Goods Spot Picker Relationship Specialty Start Date End Date Modesta Daley MD [address] [place] [address] PCP - General Internal Medicine 12/28/12 Everton Whitman [address] [facility] [address] [address] Referring Gastroenterology 12/05/18 [facility] [address] [place] [address] Pharmacist Pharmacy 06/23/19 [facility] [address] [place] [address] Pharmacist Pharmacy 09/05/20 Conner Mason [facility] [address] [place] [address] Specialty Master Planner Orthopedics 10/07/21 12/09/21 Viet Johnson MD [address] [place] [address] Home Care Provider Orthopedics 10/30/21 Aung Man PA-C [address] [place] [address] Referring Orthopedics 10/30/21 Jemima Brunner, PT [address] [place] [address] Crab Fisherman Post Acute Care 10/30/21 Molded Goods Spot Picker Relationship Specialty Start Date End Date Modesta Daley MD [address] [place] [address] PCP - General Internal Medicine 12/28/12 Everton Whitman E [facility] [address] [place] [address] Referring Gastroenterology 12/05/18 Donis Harris [facility] [address] [place] [address] Pharmacist Pharmacy 06/23/19 Sharita Cobb [facility] [address] [place] [address] Pharmacist Pharmacy 09/05/20 Conner Mason [facility] [address] [place] [address] Specialty Master Planner Orthopedics 10/07/21 12/09/21 Viet Johnson MD [address] [place] [address] Home Care Provider Orthopedics 10/30/21 Aung Man PA-C [address] [place] [address] Referring Orthopedics 10/30/21 Jemima Brunner, PT [address] [place] [address] Crab Fisherman Post Acute Care 10/30/21 Molded Goods Spot Picker Relationship Specialty Start Date End Date Modesta Daley MD [address] [place] [address] PCP - General Internal Medicine 12/28/12 Everton Whitman [address] [facility] [address] [place] [address] Referring Gastroenterology 12/05/18 Donis Harris [facility] [address] [place] [address] Pharmacist Pharmacy 06/23/19 Sharita Cobb [facility] [address] [place] [address] Pharmacist Pharmacy 09/05/20 Conner Mason, [facility] [address] [place] [address] Specialty Master Planner Orthopedics 10/07/21 12/09/21 Viet Johnson MD [address] [place] [address] Home Care Provider Orthopedics 10/30/21 Aung Man PA-C [address] [place] [address] Referring Orthopedics 10/30/21 Jemima Brunner, PT [address] [place] [address] Crab Fisherman Post Acute Care 10/30/21 Molded Goods Spot Picker Relationship Specialty Start Date End Date Modesta Daley MD [address] [place] [address] PCP - General Internal Medicine 12/28/12 Everton Whitman [address] [facility] [address] [address] Referring Gastroenterology 12/05/18 Donis Harris, [facility] [address] [place] [address] Pharmacist Pharmacy 06/23/19 Sharita Cobb, [facility] [address] [place] [address] Pharmacist Pharmacy 09/05/20 Conner Mason, [facility] [address] [place] [address] Specialty Master Planner Orthopedics 10/07/21 12/09/21 Viet Johnson MD [address] [place] [address] Home Care Provider Orthopedics 10/30/21 Aung Man PA-C [address] [place] [address] Referring Orthopedics 10/30/21 Jemima Brunner, PT [address] [place] [address] Crab Fisherman Post Acute Care 10/30/21 Molded Goods Spot Picker Relationship Specialty Start Date End Date Modesta Daley MD [address] [place] [address] PCP - General Internal Medicine 12/28/12 Everton WhitmanTrisha [address] [address] Referring Gastroenterology 12/05/18 Donis Harris, [facility] [address] [place] [address] Pharmacist Pharmacy 06/23/19 [facility] [address] [place] [address] Pharmacist Pharmacy 09/05/20 Conner Mason [facility] [address] [place] [address] Specialty Master Planner Orthopedics 10/07/21 12/09/21 Viet Johnson MD [address] [place] [address] Home Care Provider Orthopedics 10/30/21 Aung Man PA-C [address] [place] [address] Referring Orthopedics 10/30/21 Jemima Brunner, PT [address] [place] [address] Crab Fisherman Post Acute Care 10/30/21 Molded Goods Spot Picker Relationship Specialty Start Date End Date Mdoesta Daley MD [address] [place] [address] PCP - General Internal Medicine 12/28/[address] [place] [address] Referring Gastroenterology 12/05/18 Donis Harris [facility] [address] [place] [address] Pharmacist Pharmacy 06/23/19 [facility] [address] [place] [address] Pharmacist Pharmacy 09/05/20 Conner Mason, [facility] [address] [place] [address] Specialty Master Planner Orthopedics 10/07/21 12/09/21 Viet Johnson MD [address] [place] [address] Home Care Provider Orthopedics 10/30/21 Aung Man PA-C [address] [place] [address] Referring Orthopedics 10/30/21 Jemima Brunner, PT [address] [place] [address] Crab Fisherman Post Acute Care 10/30/21 Molded Goods Spot Picker Relationship Specialty Start Date End Date Modesta Daley MD [address] [place] [address] PCP - General Internal Medicine 12/28/12 Everton Whitman [address] [facility] [address] [place] [address] Referring Gastroenterology 12/05/18 Donis Harris [facility] [address] [place] [address] Pharmacist Pharmacy 06/23/19 Sharita Cobb, [facility] [address] [place] [address] Pharmacist Pharmacy 09/05/20 Conner Mason, [facility] [address] [place] [address] Specialty Master Planner Orthopedics 10/07/21 12/09/21 Viet Johnson MD [address] [place] [address] Home Care Provider Orthopedics 10/30/21 Aung Man PA-C [address] [place] [address] Referring Orthopedics 10/30/21 Jemima Brunner, PT [address] [place] [address] Crab Fisherman Post Acute Care 10/30/21 Molded Goods Spot Picker Relationship Specialty Start Date End Date Modesta Daley MD [address] [place] [address] PCP - General Internal Medicine 12/28/12 Everton Whitman [address] [address] Referring Gastroenterology 12/05/18 Donis Harris, [facility] [address] [place] [address] Pharmacist Pharmacy 06/23/19 Sharita Cobb, [facility] [address] [place] [address] Pharmacist Pharmacy 09/05/20 Conner Mason, [facility] [address] [place] [address] Specialty Master Planner Orthopedics 10/07/21 12/09/21 Viet Johnson MD [address] [place] [address] Home Care Provider Orthopedics 10/30/21 Aung Man PA-C [address] [place] [address] Referring Orthopedics 10/30/21 Jemima Brunner, PT [address] [place] [address] Crab Fisherman Post Acute Care 10/30/21 Molded Goods Spot Picker Relationship Specialty Start Date End Date Modesta Daley MD [address] [place] [address] PCP - General Internal Medicine 12/28/12 Everton Whitman [address] [address] Referring Gastroenterology 12/05/18 Donis Harris, [facility] [address] [place] [address] Pharmacist Pharmacy 06/23/19 [facility] [address] [place] [address] Pharmacist Pharmacy 09/05/20 Conner Mason [facility] [address] [place] [address] Specialty Master Planner Orthopedics 10/07/21 12/09/21 Viet Johnson MD [address] [place] [address] Home Care Provider Orthopedics 10/30/21 Aung Man PA-C [address] [place] [address] Referring Orthopedics 10/30/21 Jemima Brunner, PT [address] [place] [address] Crab Fisherman Post Acute Care 10/30/21 Molded Goods Spot Picker Relationship Specialty Start Date End Date Modesta Daley MD [address] [place] [address] PCP - General Internal Medicine 12/28/[address] [place] [address] Referring Gastroenterology 12/05/18 Donis Harris, [facility] [address] [place] [address] Pharmacist Pharmacy 06/23/19 [facility] [address] [place] [address] Pharmacist Pharmacy 09/05/20 Viet Johnson MD [address] [place] [address] Home Care Provider Orthopedics 10/30/21 Aung Man PA-C [address] [place] [address] Referring Orthopedics 10/30/21 Jemima Brunner, PT [address] [place] [address] Crab Fisherman Post Acute Care 10/30/21 Molded Goods Spot Picker Relationship Specialty Start Date End Date Modesta Daley MD [address] [place] [address] PCP - General Internal Medicine 12/28/12 Everton Whitman E [facility] [address] [place] [address] Referring Gastroenterology 12/05/18 Donis Harris, [facility] [address] [place] [address] Pharmacist Pharmacy 06/23/19 [facility] [address] [place] [address] Pharmacist Pharmacy 09/05/20 Viet Johnson MD [address] [place] [address] Home Care Provider Orthopedics 10/30/21 Aung Man PA-C [address] [place] [address] Referring Orthopedics 10/30/21 Jemima Brunner, PT [address] [place], [place] [address] Crab Fisherman Post Acute Care 10/30/21 Molded Goods Spot Picker Relationship Specialty Start Date End Date Modesta Daley MD [address] [place] [address] PCP - General Internal Medicine 12/28/12 Everton WhitmanIOLATrisha [address] [place] [address] Referring Gastroenterology 12/05/18 Donis Harris, [facility] [address] [place] [address] Pharmacist Pharmacy 06/23/19 Sharita Cobb, [facility] [address] [place] [address] Pharmacist Pharmacy 09/05/20 Viet Johnson MD [address] [address] Home Care Provider Orthopedics 10/30/21 Aung Man PA-C [address] [place] [address] Referring Orthopedics 10/30/21 Jemima Brunner, PT [address] [place] [address] Crab Fisherman Post Acute Care 10/30/21 Molded Goods Spot Picker Relationship Specialty Start Date End Date Modesta Daley MD [address] [place] [address] PCP - General Internal Medicine 12/28/12 Everton Whitman E [facility] [address] [place] [address] Referring Gastroenterology 12/05/18 Mireille Patrickmarija, [facility] [address] [place] [address] Pharmacist Pharmacy 06/23/19 [facility] [address] [place] [address] Pharmacist Pharmacy 09/05/20 Viet Johnson MD [address] [place] [address] Home Care Provider Orthopedics 10/30/21 Aung Man PA-C [address] [place] [address] Referring Orthopedics 10/30/21 Jemima Brunner, PT [address] [place] [address] Crab Fisherman Post Acute Care 10/30/21 Molded Goods Spot Picker Relationship Specialty Start Date End Date Modesta Daley MD [address] [place] [address] PCP - General Internal Medicine 12/28/12 [facility] [address] [place] [address] Referring Gastroenterology 12/05/18 Arnieroger Patrickmarija, [facility] [address] [place] [address] Pharmacist Pharmacy 06/23/19 Sharita Cobb, [facility] [address] [place] [address] Pharmacist Pharmacy 09/05/20 Conner Mason, [facility] [address] [place] [address] Specialty Master Planner Orthopedics 10/07/21 12/09/21 Viet Johnson MD [address] [place] [address] Home Care Provider Orthopedics 10/30/21 Aung Man PA-C [address] [place] [address] Referring Orthopedics 10/30/21 Jemima Brunner, PT [address] [place] [address] Crab Fisherman Post Acute Care 10/30/21 Molded Goods Spot Picker Relationship Specialty Start Date End Date Modesta Daley MD [address] [place] [address] PCP - General Internal Medicine 12/28/12 Everton Whitman [address] [facility] [address] [address] Referring Gastroenterology 12/05/18 Donis Harris, [facility] [address] [place] [address] Pharmacist Pharmacy 06/23/19 Sharita Cobb, [facility] [address] [place] [address] Pharmacist Pharmacy 09/05/20 Viet Johnson MD [address] [place] [address] Home Care Provider Orthopedics 10/30/21 Aung Man PA-C [address] [place] [address] Referring Orthopedics 10/30/21 Jemima Brunner, PT [address] [place], [place] [id number] Crab Fisherman Post Acute Care 10/30/21 Molded Goods Spot Picker Relationship Specialty Start Date End Date Modesta Daley MD [address] [place] [address] PCP - General Internal Medicine 12/28/12 Everton Whitman E [facility] [address] [place] [address] Referring Gastroenterology 12/05/18 [facility] [address] [place] [address] Pharmacist Pharmacy 06/23/19 Sharita Cobb [facility] [address] [place] [address] Pharmacist Pharmacy 09/05/20 Viet Johnson MD [address] [facility] [place] [address] Home Care Provider Orthopedics 10/30/21 Aung Man PA-C [address] [place] [address] Referring Orthopedics 10/30/21 Jemima Brunner, PT [address] [place] [address] Crab Fisherman Post Acute Care 10/30/21 Molded Goods Spot Picker Relationship Specialty Start Date End Date Modesta Daley MD [address] [place] [address] PCP - General Internal Medicine 12/28/12 Everton Whitman E [facility] [address] [place] [address] Referring Gastroenterology 12/05/18 Donis Harris, [facility] [address] [place] [address] Pharmacist Pharmacy 06/23/19 Sharita Cobb [facility] [address] [place] [address] Pharmacist Pharmacy 09/05/20 Viet Johnson MD [address] [facility] [place] [address] Home Care Provider Orthopedics 10/30/21 Aung Man PA-C [address] [place] [address] Referring Orthopedics 10/30/21 Jemima Brunner, PT [address] [place], [place] [address] Crab Fisherman Post Acute Care 10/30/21 Molded Goods Spot Picker Relationship Specialty Start Date End Date Modesta Daley MD [address] [place] [address] PCP - General Internal Medicine 12/28/12 Everton Whitman [address] [facility] [address] [place] [address] Referring Gastroenterology 12/05/18 Donis Harris, [facility] [address] [place] [address] Pharmacist Pharmacy 06/23/19 Sharita Cobb, [facility] [address] [place] [address] Pharmacist Pharmacy 09/05/20 Viet Johnson MD [address] [facility] [place] [address] Home Care Provider Orthopedics 10/30/21 Aung Man PA-C [address] [place] [address] Referring Orthopedics 10/30/21 Jemima Brunner, PT [address] [place], [place] [address] Crab Fisherman Post Acute Care 10/30/21 Molded Goods Spot Picker Relationship Specialty Start Date End Date Modesta Daley MD [address] [place] [address] PCP - General Internal Medicine 12/28/12 Everton Whitman [facility] [address] [place] [address] Referring Gastroenterology 12/05/18 [facility] [address] [place] [address] Pharmacist Pharmacy 06/23/19 [facility] [address] [place] [address] Pharmacist Pharmacy 09/05/20 Viet Johnson MD [address] [facility] [place] [address] Home Care Provider Orthopedics 10/30/21 Aung Man PA-C [address] [place] [address] Referring Orthopedics 10/30/21 Jemima Brunner, PT [address] [place] [address] Crab Fisherman Post Acute Care 10/30/21 Molded Goods Spot Picker Relationship Specialty Start Date End Date Modesta Daley MD [address] [place] [address] PCP - General Internal Medicine 12/28/12 Everton Whitman [facility] [address] [place] [address] Referring Gastroenterology 12/05/18 Donis Harris, [facility] [address] [place] [address] Pharmacist Pharmacy 06/23/19 Sharita Cobb, [facility] [address] [place] [address] Pharmacist Pharmacy 09/05/20 Conner Mason [facility] [address] [place] [address] Specialty Master Planner Orthopedics 10/07/21 12/09/21 Viet Johnson MD [address] [place] [address] Home Care Provider Orthopedics 10/30/21 Aung Man PA-C [address] [place], [place] [address] Referring Orthopedics 10/30/21 Jemima Brunner, PT [address] [place] [address] Crab Fisherman Post Acute Care 10/30/21 Molded Goods Spot Picker Relationship Specialty Start Date End Date Modesta Daley MD [address] [place] [address] PCP - General Internal Medicine 12/28/12 Everton Whitman E [address] [address] Referring Gastroenterology 12/05/18 Donis Harris, [facility] [address] [place] [address] Pharmacist Pharmacy 06/23/19 Sharita Cobb, [facility] [address] [place] [address] Pharmacist Pharmacy 09/05/20 Viet Johnson MD [address] [place] [address] Home Care Provider Orthopedics 10/30/21 Aung Man PA-C [address] [place] [address] Referring Orthopedics 10/30/21 Jemima Brunner, PT [address] [place] [address] Crab Fisherman Post Acute Care 10/30/21 Molded Goods Spot Picker Relationship Specialty Start Date End Date Modesta Daley MD [address] [place] [address] PCP - General Internal Medicine 12/28/12 Everton Whitman E [facility] [address] [place] [address] Referring Gastroenterology 12/05/18 [facility] [address] [place] [address] Pharmacist Pharmacy 06/23/19 [facility] [address] [place] [address] Pharmacist Pharmacy 09/05/20 Viet Johnson MD [address] [facility] [place] [address] Home Care Provider Orthopedics 10/30/21 Aung Man PA-C [address] [place] [address] Referring Orthopedics 10/30/21 Jemima Brunner, PT [address] [place] [address] Crab Fisherman Post Acute Care 10/30/21 Molded Goods Spot Picker Relationship Specialty Start Date End Date Modesta Daley MD [address] [place] [address] PCP - General Internal Medicine 12/28/12 Everton Whitman [facility] [address] [place] [address] Referring Gastroenterology 12/05/18 ArnieDonis duran, [facility] [address] [place] [address] Pharmacist Pharmacy 06/23/19 Jordyn Sharita, [facility] [address] [place] [address] Pharmacist Pharmacy 09/05/20 Viet Johnson MD [address] [facility] [place] [address] Home Care Provider Orthopedics 10/30/21 Aung Man PA-C [address] [place] [address] Referring Orthopedics 10/30/21 Jemima Brunner, PT [address] [place] [address] Crab Fisherman Post Acute Care 10/30/21 Molded Goods Spot Picker Relationship Specialty Start Date End Date Modesta Daley MD [address] [place] [address] PCP - General Internal Medicine 12/28/12 Everton Whitman [address] [place] [address] Referring Gastroenterology 12/05/18 ArnieDonis duran, [facility] [address] [place] [address] Pharmacist Pharmacy 06/23/19 Jordyn Sharita, [facility] [address] [place] [address] Pharmacist Pharmacy 09/05/20 Viet Johnson MD [address] [facility] [place] [address] Home Care Provider Orthopedics 10/30/21 Aung Man PA-C [address] [place] [address] Referring Orthopedics 10/30/21 Jemima Brunner, PT [address] [place] [address] Crab Fisherman Post Acute Care 10/30/21 Molded Goods Spot Picker Relationship Specialty Start Date End Date Modesta Daley MD [address] [place] [address] PCP - General Internal Medicine 12/28/12 Everton Whitman [facility] [address] [place] [address] Referring Gastroenterology 12/05/18 [facility] [address] [place] [address] Pharmacist Pharmacy 06/23/19 [facility] [address] [place] [address] Pharmacist Pharmacy 09/05/20 Viet Johnson MD [address] [facility] [place] [address] Home Care Provider Orthopedics 10/30/21 Aung Man PA-C [address] [place] [address] Referring Orthopedics 10/30/21 Jemima Brunner, PT [address] [place] [address] Crab Fisherman Post Acute Care 10/30/21 Molded Goods Spot Picker Relationship Specialty Start Date End Date Modesta Daley MD [address] [place] [address] PCP - General Internal Medicine 12/28/12 Everton Whitman [facility] [address] [place] [address] Referring Gastroenterology 12/05/18 Arnieroger Patrickmarija, [facility] [address] [place] [address] Pharmacist Pharmacy 06/23/19 Sharita Cobb, [facility] [address] [place] [address] Pharmacist Pharmacy 09/05/20 Viet Johnson MD [address] [facility] [place] [address] Home Care Provider Orthopedics 10/30/21 Aung Man PA-C [address] [place] [address] Referring Orthopedics 10/30/21 Jemima Brunner, PT [address] [place] [address] Crab Fisherman Post Acute Care 10/30/21 Molded Goods Spot Picker Relationship Specialty Start Date End Date Modesta Daley MD [address] [place] [address] PCP - General Internal Medicine 12/28/12 Everton Whitman [address] [place] [address] Referring Gastroenterology 12/05/18 Mireille Patrickmarija, [facility] [address] [place] [address] Pharmacist Pharmacy 06/23/19 Sharita Cobb, [facility] [address] [place] [address] Pharmacist Pharmacy 09/05/20 Viet Johnson MD [address] [facility] [place] [address] Home Care Provider Orthopedics 10/30/21 Aung Man PA-C [address] [place] [address] Referring Orthopedics 10/30/21 Jemima Brunner, PT [address] [place] [address] Crab Fisherman Post Acute Care 10/30/21 Molded Goods Spot Picker Relationship Specialty Start Date End Date Modesta Daley MD [address] [facility] [facility] [place] [address] PCP - General Internal Medicine 12/28/[address] [place] [address] Referring Gastroenterology 12/05/18 Donis Harris, [facility] [address] [place] [address] Pharmacist Pharmacy 06/23/19 Sharita Cobb, [facility] [address] [place] [address] Pharmacist Pharmacy 09/05/20 Viet Johnson MD [address] [facility] [place] [address] Home Care Provider Orthopedics 10/30/21 Aung Man PA-C [address] [place] [address] Referring Orthopedics 10/30/21 Jemima Brunner, PT [address] [place] [address] Crab Fisherman Post Acute Care 10/30/21 Molded Goods Spot Picker Relationship Specialty Start Date End Date Modesta Daley MD [address] [place] [address] PCP - General Internal Medicine 12/28/[address] [place] [address] Referring Gastroenterology 12/05/18 [facility] [address] [place] [address] Pharmacist Pharmacy 06/23/19 [facility] [address] [place] [address] Pharmacist Pharmacy 09/05/20 Viet Johnson MD [address] [facility] [place] [address] Home Care Provider Orthopedics 10/30/21 Aung Man PA-C [address] [place] [address] Referring Orthopedics 10/30/21 Jemima Brunner, PT [address] [place] [address] Crab Fisherman Post Acute Care 10/30/21 Molded Goods Spot Picker Relationship Specialty Start Date End Date Modesta Daley MD [address] [place] [address] PCP - General Internal Medicine 12/28/12 Everton Whitman [address] [facility] [address] [place] [address] Referring Gastroenterology 12/05/18 Donis Harris, [facility] [address] [place] [address] Pharmacist Pharmacy 06/23/19 [facility] [address] [place] [address] Pharmacist Pharmacy 09/05/20 Viet Johnson MD [address] [place] [address] Home Care Provider Orthopedics 10/30/21 Aung Man PA-C [address] [place] [address] Referring Orthopedics 10/30/21 Jemima Brunner, PT [address] [place] [address] Crab Fisherman Post Acute Care 10/30/21 Donovan White DO [address] [place] [address] Neurology 03/10/22 Molded Goods Spot Picker Relationship Specialty Start Date End Date Modesta Daley MD [address] [place] [address] PCP - General Internal Medicine 12/28/12 Everton Whitman [address] MOREJON [address] [address] Referring Gastroenterology 12/05/18 Donis Harris, [facility] [address] [place] [address] Pharmacist Pharmacy 06/23/19 Sharita Cobb, [facility] [address] [place] [address] Pharmacist Pharmacy 09/05/20 Viet Johnson MD [address] [place] [address] Home Care Provider Orthopedics 10/30/21 Aung Man PA-C [address] [place] [address] Referring Orthopedics 10/30/21 Jemima Brunner, PT [address] [place] [address] Crab Fisherman Post Acute Care 10/30/21 Donovan [place] [address] [place] [address] Neurology 03/10/22 Molded Goods Spot Picker Relationship Specialty Start Date End Date Modesta Daley MD [address] [place] [address] PCP - General Internal Medicine 12/28/12 Everton WhitmanIOLATrisha [facility] [address] [place] [address] Referring Gastroenterology 12/05/18 Donis Harris, [facility] [address] [place] [address] Pharmacist Pharmacy 06/23/19 Sharita Cobb, [facility] [address] [place] [address] Pharmacist Pharmacy 09/05/20 Viet Johnson MD [address] [facility] [place] [address] Home Care Provider Orthopedics 10/30/21 Aung Man PA-C [address] [place] [address] Referring Orthopedics 10/30/21 Jemima Brunner, PT [address] [place] [address] Crab Fisherman Post Acute Care 10/30/21 Donovan White, DO [address] [place] [address] Neurology 03/10/22 Molded Goods Spot Picker Relationship Specialty Start Date End Date Modesta Daley MD [address] [place] [address] PCP - General Internal Medicine 12/28/12 Everton WhitmanTrisha [address] [address] Referring Gastroenterology 12/05/18 Donis Harris [facility] [address] [place] [address] Pharmacist Pharmacy 06/23/19 Sharita Cobb, [facility] [address] [place] [address] Pharmacist Pharmacy 09/05/20 Viet Johnson MD [address] [place] [address] Home Care Provider Orthopedics 10/30/21 Aung Man PA-C [address] [place] [address] Referring Orthopedics 10/30/21 Jemima Brunner, PT [address] [place] [address] Crab Fisherman Post Acute Care 10/30/21 Donovan White Richar, [address] [place] [address] Neurology 03/10/22 Molded Goods Spot Picker Relationship Specialty Start Date End Date Modesta Daley MD [address] [place] [address] PCP - General Internal Medicine 12/28/12 Everton Whitman [address] [address] Referring Gastroenterology 12/05/18 Donis Harris, [facility] [address] [place] [address] Pharmacist Pharmacy 06/23/19 Sharita Cobb, [facility] [address] [place] [address] Pharmacist Pharmacy 09/05/20 Viet Johnson MD [address] [place] [address] Home Care Provider Orthopedics 10/30/21 Aung Man PA-C [address] [place] [address] Referring Orthopedics 10/30/21 Jemima Brunner, PT [address] [place] [address] Crab Fisherman Post Acute Care 10/30/21 Donovan White [address] [place] [address] Neurology 03/10/22 Molded Goods Spot Picker Relationship Specialty Start Date End Date Modesta Daley MD [address] [place] [address] PCP - General Internal Medicine 12/28/12 Everton Whitman [address] [facility] [address] [address] Referring Gastroenterology 12/05/18 Donis Harris, [facility] [address] [place] [address] Pharmacist Pharmacy 06/23/19 Sharita Cobb, [facility] [address] [place] [address] Pharmacist Pharmacy 09/05/20 Viet Johnson MD [address] [place] [address] Home Care Provider Orthopedics 10/30/21 Aung Man PA-C [address] [place] [address] Referring Orthopedics 10/30/21 Jemima Brunner, PT [address] [place] [address] Crab Fisherman Post Acute Care 10/30/21 Donovan White DO [address] [place] [address] Neurology 03/10/22 Molded Goods Spot Picker Relationship Specialty Start Date End Date Modesta Daley MD [address] [place] [address] PCP - General Internal Medicine 12/28/12 Everton Whitman [address] RUTHTrisha [address] [place] [address] Referring Gastroenterology 12/05/18 Donis Harris, [facility] [address] [place] [address] Pharmacist Pharmacy 06/23/19 Sharita Cobb, [facility] [address] [place] [address] Pharmacist Pharmacy 09/05/20 Viet Johnson MD [address] [facility] [place] [address] Home Care Provider Orthopedics 10/30/21 Aung Man PA-C [address] [place] [address] Referring Orthopedics 10/30/21 Jemima Brunner, PT [address] [place] [address] Crab Fisherman Post Acute Care 10/30/21 Donovan White DO [address] [place] [address] Neurology 03/10/22 Molded Goods Spot Picker Relationship Specialty Start Date End Date Modesta Daley MD [address] [place] [address] PCP - General Internal Medicine 12/28/12 Everton Whitman [facility] [address] [place] [address] Referring Gastroenterology 12/05/18 Donis Harris, [facility] [address] [place] [address] Pharmacist Pharmacy 06/23/19 [facility] [address] [place] [address] Pharmacist Pharmacy 09/05/20 Viet Johnson MD [address] [place] [address] Home Care Provider Orthopedics 10/30/21 Aung Man PA-C [address] [place] [address] Referring Orthopedics 10/30/21 Jemima Brunner, PT [address] [place] [address] Crab Fisherman Post Acute Care 10/30/21 Donovan White, [address] [place] [address] Neurology 03/10/22 Molded Goods Spot Picker Relationship Specialty Start Date End Date Modesta Daley MD [address] [place] [address] PCP - General Internal Medicine 12/28/12 Everton Whitman [facility] [address] [place] [address] Referring Gastroenterology 12/05/18 Donis Harris, [facility] [address] [place] [address] Pharmacist Pharmacy 06/23/19 Sharita Cobb, [facility] [address] [place] [address] Pharmacist Pharmacy 09/05/20 Viet Johnson MD [address] [facility] [place] [address] Home Care Provider Orthopedics 10/30/21 Aung Man PA-C [address] [place] [address] Referring Orthopedics 10/30/21 Jemima Brunner, PT [address] [place] [address] Crab Fisherman Post Acute Care 10/30/21 Donovan White, DO [address] [place] [address] Neurology 03/10/22 Molded Goods Spot Picker Relationship Specialty Start Date End Date Modesta Daley MD [address] [place] [address] PCP - General Internal Medicine 12/28/12 Everton Whitman [address] [address] Referring Gastroenterology 12/05/18 Donis Harris, [facility] [address] [place] [address] Pharmacist Pharmacy 06/23/19 Sharita Cobb, [facility] [address] [place] [address] Pharmacist Pharmacy 09/05/20 Viet Johnson MD [address] [place] [address] Home Care Provider Orthopedics 10/30/21 Aung Man PA-C [address] [place] [address] Referring Orthopedics 10/30/21 Jemima Brunner, PT [address] [place] [address] Crab Fisherman Post Acute Care 10/30/21 Donovan White DO [address] [place] [address] Neurology 03/10/22 Molded Goods Spot Picker Relationship Specialty Start Date End Date Modesta Daley MD [address] [place] [address] PCP - General Internal Medicine 12/28/12 Everton Whitman [address]UTHTrisha [address] [address] Referring Gastroenterology 12/05/18 [facility] [address] [place] [address] Pharmacist Pharmacy 06/23/19 [facility] [address] [place] [address] Pharmacist Pharmacy 09/05/20 Viet Johnson MD [address] [place] [address] Home Care Provider Orthopedics 10/30/21 Aung Man PA-C [address] [place] [address] Referring Orthopedics 10/30/21 Jemima Brunner, PT [address] [place] [address] Crab Fisherman Post Acute Care 10/30/21 Donovan White DO [address] [place] [address] Neurology 03/10/22 Molded Goods Spot Picker Relationship Specialty Start Date End Date Modesta Daley MD [address] [place] [address] PCP - General Internal Medicine 12/28/12 Everton Whitman [facility] [address] [place] [address] Referring Gastroenterology 12/05/18 Arnieroger Patrickmarija, [facility] [address] [place] [address] Pharmacist Pharmacy 06/23/19 Sharita Cobb, [facility] [address] [place] [address] Pharmacist Pharmacy 09/05/20 Viet Johnson MD [address] [place] [address] Home Care Provider Orthopedics 10/30/21 Aung Man PA-C [address] [place] [address] Referring Orthopedics 10/30/21 Jemima Brunner, PT [address] [place] [address] Crab Fisherman Post Acute Care 10/30/21 Donovan White, [address] [place] [address] Neurology 03/10/22 Molded Goods Spot Picker Relationship Specialty Start Date End Date Modesta Daley MD [address] [place] [address] PCP - General Internal Medicine 12/28/12 Everton Whitman [facility] [address] [place] [address] Referring Gastroenterology 12/05/18 Donis Harris, [facility] [address] [place] [address] Pharmacist Pharmacy 06/23/19 Sharita Cobb, [facility] [address] [place] [address] Pharmacist Pharmacy 09/05/20 Viet Johnson MD [address] [place], [place] [address] Home Care Provider Orthopedics 10/30/21 Aung Man PA-C [address] [place], [place] [address] Referring Orthopedics 10/30/21 Jemima Brunner, PT [address] [place] [address] Crab Fisherman Post Acute Care 10/30/21 Donovan White, DO [address] [place] [address] Neurology 03/10/22 Molded Goods Spot Picker Relationship Specialty Start Date End Date Modesta Daley MD [address] [place] [address] PCP - General 05/02/20 Jasbir Iyer MD [address] [place] [address] Surgeon General Surgery 05/19/22 Molded Goods Spot Picker Relationship Specialty Start Date End Date Modesta Daley MD [address] [place] [address] PCP - General 05/02/20 Jasbir Iyer MD [address] [place] [address] Surgeon General Surgery 05/19/22 Molded Goods Spot Picker Relationship Specialty Start Date End Date Modesta Daley MD [address] [place] [address] PCP - General Internal Medicine 12/28/12 Everton Whitman E [facility] [facility] [address] [place] [address] Referring Gastroenterology 12/05/18 Donis Harris [facility] [address] [place] [address] Pharmacist Pharmacy 06/23/19 [facility] [address] [place] [address] Pharmacist Pharmacy 09/05/20 Viet Johnson MD [address] [place] [address] Home Care Provider Orthopedics 10/30/21 Aung Man PA-C [address] [place] [address] Referring Orthopedics 10/30/21 Jemima Brunner, PT [address] [place] [address] Crab Fisherman Post Acute Care 10/30/21 Donovan White, DO [address] [place] [address] Neurology 03/10/22 Molded Goods Spot Picker Relationship Specialty Start Date End Date Modesta Daley MD [address] [place] [address] PCP - General Internal Medicine 12/28/12 [facility] [address] [place] [address] Referring Gastroenterology 12/05/18 Donis Harris [facility] [address] [place] [address] Pharmacist Pharmacy 06/23/19 Sharita Cobb, [facility] [address] [place] [address] Pharmacist Pharmacy 09/05/20 Viet Johnson MD [address] [place] [address] Home Care Provider Orthopedics 10/30/21 Aung Man PA-C [address] [place] [address] Referring Orthopedics 10/30/21 Jemima Brunner, PT [address] [place] [address] Crab Fisherman Post Acute Care 10/30/21 Donovan White, [address] [place] [address] Neurology 03/10/22 Molded Goods Spot Picker Relationship Specialty Start Date End Date Modesta Daley MD [address] [place] [address] PCP - General Internal Medicine 12/28/12 Everton Whitman [address] [address] Referring Gastroenterology 12/05/18 Donis Harris, [facility] [address] [place] [address] Pharmacist Pharmacy 06/23/19 Sharita Cobb, [facility] [address] [place] [address] Pharmacist Pharmacy 09/05/20 Viet Johnson MD [address] [place] [address] Home Care Provider Orthopedics 10/30/21 Aung Man PA-C [address] [place] [address] Referring Orthopedics 10/30/21 Jemima Brunner, PT [address] [place] [address] Crab Fisherman Post Acute Care 10/30/21 Donovan White, [address] [place] [address] Neurology 03/10/22 Molded Goods Spot Picker Relationship Specialty Start Date End Date Modesta Daley MD [address] [place] [address] PCP - General Internal Medicine 12/28/12 Everton Whitman [address] [address] Referring Gastroenterology 12/05/18 Donis Harris, [facility] [address] [place] [address] Pharmacist Pharmacy 06/23/19 Sharita Cobb, [facility] [address] [place] [address] Pharmacist Pharmacy 09/05/20 Viet Johnson MD [address] [place] [address] Home Care Provider Orthopedics 10/30/21 Aung Man PA-C [address] [place] [address] Referring Orthopedics 10/30/21 Jemima Brunner, PT [address] [place] [address] Crab Fisherman Post Acute Care 10/30/21 Donovan White, DO [address] [place] [address] Neurology 03/10/22 Molded Goods Spot Picker Relationship Specialty Start Date End Date Modesta Daley MD [address] [place] [address] PCP - General Internal Medicine 12/28/12 Everton Whitman [address] [place] [address] Referring Gastroenterology 12/05/18 Donis Harris, [facility] [address] [place] [address] Pharmacist Pharmacy 06/23/19 [facility] [address] [place] [address] Pharmacist Pharmacy 09/05/20 Viet Johnson MD [address] [facility] [address] Home Care Provider Orthopedics 10/30/21 Aung Mna PA-C [address] [place] [address] Referring Orthopedics 10/30/21 Jemima Brunner, PT [address] [place] [address] Crab Fisherman Post Acute Care 10/30/21 Donovan White, DO [address] [place] [address] Neurology 03/10/22 Team Status: Active Member Role Status Dates Dr. Modesta Daley MD Family Provider Active Dr. Modesta Daley MD Primary Care Provider Active Team Status: Inactive Member Role Status Dates Dr. Modesta Daley MD Primary Care Provider Active Dr. Chyna Durant MD Attending Provider, Franklin heller Provider Active Dr. Jeremiah Ricardo MD Other Provider Active Molded Goods Spot Picker Relationship Specialty Start Date End Date Modesta Daley MD [address] [place] [address] PCP - General 05/02/20 Jasbir Iyer MD [address] [place] [address] [address] [place] [address] Surgeon General Surgery 05/19/22 Molded Goods Spot Picker Relationship Specialty Start Date End Date Modesta Daley MD [address] [place] [address] PCP - General Internal Medicine 12/28/12 Everton Whitman [address] [address] Referring Gastroenterology 12/05/18 Donis Harris, [facility] [address] [place] [address] Pharmacist Pharmacy 06/23/19 Sharita Cobb, [facility] [address] [place] [address] Pharmacist Pharmacy 09/05/20 Viet Johnson MD [address] [place] [address] Home Care Provider Orthopedics 10/30/21 Aung Man PA-C [address] [place] [address] Referring Orthopedics 10/30/21 Jemima Brunner, PT [address] [place] [address] Crab Fisherman Post Acute Care 10/30/21 Donovan White DO [address] [place] [address] Neurology 03/10/22 Molded Goods Spot Picker Relationship Specialty Start Date End Date Modesta Daley MD [address] [place] [address] PCP - General Internal Medicine 12/28/12 Everton Whitman [address] [facility] [address] [place] [address] Referring Gastroenterology 12/05/18 [facility] [address] [place] [address] Pharmacist Pharmacy 06/23/19 [facility]ta [facility] [address] [place] [address] Pharmacist Pharmacy 09/05/20 Viet Johnson MD [address] [place] [address] Home Care Provider Orthopedics 10/30/21 Aung Man PA-C [address] [place] [address] Referring Orthopedics 10/30/21 Jemima Brunner, PT [address] [place] [address] Crab Fisherman Post Acute Care 10/30/21 Donovan White DO [address] [place] [address] Neurology 03/10/22 Molded Goods Spot Picker Relationship Specialty Start Date End Date Modesta Daley MD [address] [place], [place] [address] PCP - General Internal Medicine 12/28/12 Everton Whitman [address] THEODORATrisha [facility] [address] [place] [address] Referring Gastroenterology 12/05/18 Donis Harris, [facility] [address] [place] [address] Pharmacist Pharmacy 06/23/19 [facility] [address] [place] [address] Pharmacist Pharmacy 09/05/20 Viet Johnson MD [address] [place] [address] Home Care Provider Orthopedics 10/30/21 Aung Man PA-C [address] [place] [address] Referring Orthopedics 10/30/21 Jemima Brunner, PT [address] [place] [address] Crab Fisherman Post Acute Care 10/30/21 Donovan White DO [address] [place] [address] Neurology 03/10/22 Molded Goods Spot Picker Relationship Specialty Start Date End Date Modesta Daley MD [address] [place] [address] PCP - General Internal Medicine 12/28/12 Everton Whitman [address] E [facility] [address] [place] [address] Referring Gastroenterology 12/05/18 ArniePatrick [facility] [address] [place] [address] Pharmacist Pharmacy 06/23/19 [facility] [address] [place] [address] Pharmacist Pharmacy 09/05/20 Viet Johnson MD [address] [place] [address] Home Care Provider Orthopedics 10/30/21 Aung Man PA-C [address] [place] [address] Referring Orthopedics 10/30/21 Jemima Brunner, PT [address] [place] [address] Crab Fisherman Post Acute Care 10/30/21 Donovan White DO [address] [place] [address] Neurology 03/10/22 Molded Goods Spot Picker Relationship Specialty Start Date End Date Modesta Daley MD [address] [place] [address] PCP - General Internal Medicine 12/28/12 Everton Whitman [address] RUTH[address]isha [facility] [address] [place] [address] Referring Gastroenterology 12/05/18 ArnierogerDonis, [facility] [address] [place] [address] Pharmacist Pharmacy 06/23/19 Sharita Cobb, [facility] [address] [place] [address] Pharmacist Pharmacy 09/05/20 Viet Johnson MD [address] [place] [address] Home Care Provider Orthopedics 10/30/21 Aung Man PA-C [address] [place] [address] Referring Orthopedics 10/30/21 Jemima Brunner, PT [address] [place] [address] Crab Fisherman Post Acute Care 10/30/21 Donovan White DO [address] [place] [address] Neurology 03/10/22 Molded Goods Spot Picker Relationship Specialty Start Date End Date Modesta Daley MD [address] [place] [address] PCP - General Internal Medicine 12/28/12 Everton Whitman [address] [address] Referring Gastroenterology 12/05/18 Donis Harris, [facility] [address] [place] [address] Pharmacist Pharmacy 06/23/19 Sharita Cobb, [facility] [address] [place] [address] Pharmacist Pharmacy 09/05/20 Viet Johnson MD [address] [place] [address] Home Care Provider Orthopedics 10/30/21 Aung Man PA-C [address] [place] [address] Referring Orthopedics 10/30/21 Jemima Brunner, PT [address] [place] [address] Crab Fisherman Post Acute Care 10/30/21 Donovan White DO [address] [place] [address] Neurology 03/10/22 Molded Goods Spot Picker Relationship Specialty Start Date End Date Modesta Daley MD [address] [place] [address] PCP - General Internal Medicine 12/28/12 Everton Whitman [address] [address] Referring Gastroenterology 12/05/18 Donis Harris, [facility] [address] [place] [address] Pharmacist Pharmacy 06/23/19 Sharita Cobb, [facility] [address] [place] [address] Pharmacist Pharmacy 09/05/20 Viet Johnson MD [address] [place] [address] Home Care Provider Orthopedics 10/30/21 Aung Man PA-C [address] [place] [address] Referring Orthopedics 10/30/21 Donovan White DO [address] [place] [address] Neurology 03/10/22 Molded Goods Spot Picker Relationship Specialty Start Date End Date Modesta Daley MD [address] [place] [address] PCP - General Internal Medicine 12/28/12 Everton Whitman [address] [address] Referring Gastroenterology 12/05/18 Donis Harris, [facility] [address] [place] [address] Pharmacist Pharmacy 06/23/19 [facility] [address] [place] [address] Pharmacist Pharmacy 09/05/20 Viet Johnson MD [address] [place] [address] Home Care Provider Orthopedics 10/30/21 Aung Man PA-C [address] [place] [address] Referring Orthopedics 10/30/21 Donovan White DO [address] [place] [address] Neurology 03/10/22 Molded Goods Spot Picker Relationship Specialty Start Date End Date Modesta Daley MD [address] [place] [address] PCP - General Internal Medicine 12/28/12 Everton Whitman MD [address] [facility] [address] [place] [address] Referring Gastroenterology 12/05/18 Donis Harris, [facility] [address] [place] [address] Pharmacist Pharmacy 06/23/19 Jordyn, [facility] [address] [place] [address] Pharmacist Pharmacy 09/05/20 Viet Johnson MD [address] [place] [address] Home Care Provider Orthopedics 10/30/21 Aung Man PA-C [address] [place] [address] Referring Orthopedics 10/30/21 Donovan White DO [address] [place] [address] Neurology 03/10/22 Molded Goods Spot Picker Relationship Specialty Start Date End Date Modesta Daley MD [address] [place] [address] PCP - General Internal Medicine 12/28/12 Everton Whitman MD [address] [facility] [address] [place] [address] Referring Gastroenterology 12/05/18 Donis Harris, [facility] [address] [place] [address] Pharmacist Pharmacy 06/23/19 WingateSharita abdullahi, [facility] [address] [place] [address] Pharmacist Pharmacy 09/05/20 Viet Johnson MD [address] [place] [address] Home Care Provider Orthopedics 10/30/21 Aung Man PA-C [address] [place] [address] Referring Orthopedics 10/30/21 Donovan White DO [address] [place] [address] Neurology 03/10/22 Molded Goods Spot Picker Relationship Specialty Start Date End Date Modesta Daley MD [address] [place] [address] PCP - General Internal Medicine 12/28/12 Everton Whitman MD [address] [address] Referring Gastroenterology 12/05/18 Donis Harris, [facility] [address] [place] [address] Pharmacist Pharmacy 06/23/19 Jordyn Sharita, [facility] [address] [place] [address] Pharmacist Pharmacy 09/05/20 Viet Johnson MD [address] [place] [address] Home Care Provider Orthopedics 10/30/21 Aung Man PA-C [address] [place] [address] Referring Orthopedics 10/30/21 Donovan White DO [address] [place] [address] Neurology 03/10/22 Molded Goods Spot Picker Relationship Specialty Start Date End Date Modesta Daley MD [address] [place] [address] PCP - General Internal Medicine 12/28/12 Everton Whitman MD [address] [address] Referring Gastroenterology 12/05/18 [facility] [address] [place] [address] Pharmacist Pharmacy 06/23/19 [facility] [address] [place] [address] Pharmacist Pharmacy 09/05/20 Viet Johnson MD [address] [place] [address] Home Care Provider Orthopedics 10/30/21 Aung Man PA-C [address] [place] [address] Referring Orthopedics 10/30/21 Donovan White DO [address] [place] [address] Neurology 03/10/22 Molded Goods Spot Picker Relationship Specialty Start Date End Date Modesta Daley MD [address] [place] [address] PCP - General Internal Medicine 12/28/12 Everton Whitman MD [address] [facility] [address] [place] [address] Referring Gastroenterology 12/05/18 Donis Harris, [facility] [address] [place] [address] Pharmacist Pharmacy 06/23/19 [facility] [address] [place] [address] Pharmacist Pharmacy 09/05/20 Viet Johnson MD [address] [place] [address] Home Care Provider Orthopedics 10/30/21 Aung Man PA-C [address] [place] [address] Referring Orthopedics 10/30/21 Donovan White DO [address] [place] [address] Neurology 03/10/22 Molded Goods Spot Picker Relationship Specialty Start Date End Date Modesta Daley MD [address] [place] [address] PCP - General 05/02/20 Jasbir Iyer MD [address] [place] [address] [address] [place] [address] Surgeon General Surgery 05/19/22 Molded Goods Spot Picker Relationship Specialty Start Date End Date Modesta Daley MD [address] [place] [address] PCP - General Internal Medicine 12/28/12 Everton Whitman MD [address] [facility] [address] [place] [address] Referring Gastroenterology 12/05/18 [facility] [address] [facility] [address] [place] [address] Pharmacist Pharmacy 06/23/19 [facility] [address] [place] [address] Pharmacist Pharmacy 09/05/20 Viet Johnson MD [address] [place] [address] Home Care Provider Orthopedics 10/30/21 Aung Man PA-C [address] [place] [address] Referring Orthopedics 10/30/21 Donovan White DO [address] [place] [address] Neurology 03/10/22 Molded Goods Spot Picker Relationship Specialty Start Date End Date Modesta Daley MD [address] [place] [address] PCP - General Internal Medicine 12/28/12 Everton Whitman MD [address] [facility] [address] [place] [address] Referring Gastroenterology 12/05/18 Donis Harris, [facility] [address] [address] Pharmacist Pharmacy 06/23/19 Sharita Cobb, [facility] [address] [place] [address] Pharmacist Pharmacy 09/05/20 Viet Johnson MD [address] [place] [address] Home Care Provider Orthopedics 10/30/21 Aung Man PA-C [address] [place] [address] Referring Orthopedics 10/30/21 Jemima Brunner, PT [address] [place] [address] Crab Fisherman Post Acute Care 10/30/21 10/05/22 Donovan White DO [address] [place] [address] Neurology 03/10/22 Molded Goods Spot Picker Relationship Specialty Start Date End Date Modesta Daley MD [address] [place] [address] PCP - General 05/02/20 Jasbir Iyer MD [address] [place] [address] [address] [place] [address] Surgeon General Surgery 05/19/22 Molded Goods Spot Picker Relationship Specialty Start Date End Date Modesta Daley MD [address] [place] [address] PCP - General Internal Medicine 12/28/12 Everton Whitman MD [address] [place] [address] Referring Gastroenterology 12/05/18 [facility] [address] [place] [address] Pharmacist Pharmacy 06/23/19 Shar[facility] [address] [place] [address] Pharmacist Pharmacy 09/05/20 Viet Johnson MD [address] [place] [address] Home Care Provider Orthopedics 10/30/21 Aung Man PA-C [address] [place] [address] Referring Orthopedics 10/30/21 Donovan White DO [address] [place] [address] Neurology 03/10/22 Molded Goods Spot Picker Relationship Specialty Start Date End Date Modesta Daley MD [address] [place] [address] PCP - General Internal Medicine 12/28/12 Everton Whitman MD [address] [place] [address] Referring Gastroenterology 12/05/18 Donis Harris, [facility] [address] [place] [address] Pharmacist Pharmacy 06/23/19 Sharita Cobb, [facility] [address] [place] [address] Pharmacist Pharmacy 09/05/20 Viet Johnson MD [address] [place] [address] Home Care Provider Orthopedics 10/30/21 Aung Man PA-C [address] [place] [address] Referring Orthopedics 10/30/21 Donovan White DO [address] [place] [address] Neurology 03/10/22 Molded Goods Spot Picker Relationship Specialty Start Date End Date Modesta Daley MD [address] [place] [address] PCP - General Internal Medicine 12/28/12 Everton Whitman MD [address] [facility] [address] [place] [address] Referring Gastroenterology 12/05/18 [facility] [address] [facility] [address] [place] [address] Pharmacist Pharmacy 06/23/19 Sharita Cobb, [facility] [address] [place] [address] Pharmacist Pharmacy 09/05/20 Viet Johnson MD [address] [place] [address] Home Care Provider Orthopedics 10/30/21 Aung Man PA-C [address] [place] [address] Referring Orthopedics 10/30/21 Donovan White DO [address] [place] [address] Neurology 03/10/22 Molded Goods Spot Picker Relationship Specialty Start Date End Date Modesta Daley MD [address] [place] [address] PCP - General Internal Medicine 12/28/12 Everton Whitman MD [address] [address] Referring Gastroenterology 12/05/18 [facility] [address] [address] Pharmacist Pharmacy 06/23/19 [facility] [address] [place] [address] Pharmacist Pharmacy 09/05/20 Viet Johnson MD [address] [place] [address] Home Care Provider Orthopedics 10/30/21 Aung Man PA-C [address] [place] [address] Referring Orthopedics 10/30/21 Donovan White DO [address] [place] [address] Neurology 03/10/22 Molded Goods Spot Picker Relationship Specialty Start Date End Date Modesta Daley MD [address] [place] [address] PCP - General Internal Medicine 12/28/12 Everton Whitman MD [address] [facility] [address] [place] [address] Referring Gastroenterology 12/05/18 [facility] [address] [facility] [address] [place] [address] Pharmacist Pharmacy 06/23/19 Sharita Cobb [facility] [address] [place] [address] Pharmacist Pharmacy 09/05/20 Viet Johnson MD [address] [place] [address] Home Care Provider Orthopedics 10/30/21 Aung Man PA-C [address] [place] [address] Referring Orthopedics 10/30/21 Donovan White DO [address] [place] [address] Neurology 03/10/22 Molded Goods Spot Picker Relationship Specialty Start Date End Date Modesta Daley MD [address] [place] [address] PCP - General Internal Medicine 12/28/12 Everton Whitman MD [address] [facility] [address] [place] [address] Referring Gastroenterology 12/05/18 Donis Harris [facility] [address] [facility] [address] [place] [address] Pharmacist Pharmacy 06/23/19 Jordyn Sharita, [facility] [address] [place] [address] Pharmacist Pharmacy 09/05/20 Viet Johnson MD [address] [place] [address] Home Care Provider Orthopedics 10/30/21 Aung Man PA-C [address] [place] [address] Referring Orthopedics 10/30/21 Donovan White DO [address] [place] [address] Neurology 03/10/22 Molded Goods Spot Picker Relationship Specialty Start Date End Date Modesta Daley MD [address] [place], [place] [address] PCP - General Internal Medicine 12/28/12 Everton Whitman MD [address] [address] Referring Gastroenterology 12/05/18 ArniePatrick [facility] [address] [facility] [address] [place] [address] Pharmacist Pharmacy 06/23/19 Jordyn Sharita, [facility] [address] [place] [address] Pharmacist Pharmacy 09/05/20 Viet Johnson MD [address] [place] [address] Home Care Provider Orthopedics 10/30/21 Aung Man PA-C [address] [place] [address] Referring Orthopedics 10/30/21 Donovan White DO [address] [place] [address] Neurology 03/10/22 Molded Goods Spot Picker Relationship Specialty Start Date End Date Modesta Daley MD [address] [place] [address] PCP - General Internal Medicine 12/28/12 Everton Whitman MD [address] [facility] [address] [place] [address] Referring Gastroenterology 12/05/18 Donis Harris, [facility] [address] [facility] [address] [place] [address] Pharmacist Pharmacy 06/23/19 Sharita [facility] [address] [place] [address] Pharmacist Pharmacy 09/05/20 Viet Johnson MD [address] [place] [address] Home Care Provider Orthopedics 10/30/21 Aung Man PA-C [address] [place] [address] Referring Orthopedics 10/30/21 Donovan White DO [address] [place] [address] Neurology 03/10/22 Molded Goods Spot Picker Relationship Specialty Start Date End Date Modesta Daley MD [address] [place] [address] PCP - General Internal Medicine 12/28/12 Everton Whitman MD [address] [facility] [address] [place] [address] Referring Gastroenterology 12/05/18 [facility] [address] [facility] [address] [place] [address] Pharmacist Pharmacy 06/23/19 Shar[facility] [address] [place] [address] Pharmacist Pharmacy 09/05/20 Viet Johnson MD [address] [place] [address] Home Care Provider Orthopedics 10/30/21 Aung Man PA-C [address] [place] [address] Referring Orthopedics 10/30/21 Donovan White DO [address] [place] [address] Neurology 03/10/22 Molded Goods Spot Picker Relationship Specialty Start Date End Date Modesta Daley MD [address] [place] [address] PCP - General Internal Medicine 12/28/12 Everton Whitman MD [address] [facility] [address] [place] [address] Referring Gastroenterology 12/05/18 [facility] [address] [facility] [address] [place] [address] Pharmacist Pharmacy 06/23/19 [facility] [address] [place] [address] Pharmacist Pharmacy 09/05/20 Viet Johnson MD [address] [place] [place] [address] Home Care Provider Orthopedics 10/30/21 Aung Man PA-C [address] [place] [address] Referring Orthopedics 10/30/21 Donovan White DO [address] [place] [address] Neurology 03/10/22 Molded Goods Spot Picker Relationship Specialty Start Date End Date Modesta Daley MD [address] [place] [address] PCP - General Internal Medicine 12/28/12 Everton Whitman MD [address] [facility] [address] [place] [address] Referring Gastroenterology 12/05/18 Donis Harris, [facility] [address] [facility] [address] [place] [address] Pharmacist Pharmacy 06/23/19 Sharita Cobb, [facility] [address] [place] [address] Pharmacist Pharmacy 09/05/20 Viet Johnson MD [address] [place] [address] Home Care Provider Orthopedics 10/30/21 Aung Man PA-C [address] [place] [address] Referring Orthopedics 10/30/21 Donovan White DO [address] [place] [address] Neurology 03/10/22 Molded Goods Spot Picker Relationship Specialty Start Date End Date Modesta Daley MD [address] [place] [address] PCP - General Internal Medicine 12/28/12 Everton Whitman MD [address] [address] Referring Gastroenterology 12/05/18 [facility] [address] [address] Pharmacist Pharmacy 06/23/19 [facility] [address] [place] [address] Pharmacist Pharmacy 09/05/20 Viet Johnson MD [address] [place] [address] Home Care Provider Orthopedics 10/30/21 Aung Man PA-C [address] [place] [address] Referring Orthopedics 10/30/21 Donovan White DO [address] [place] [address] Neurology 03/10/22 Molded Goods Spot Picker Relationship Specialty Start Date End Date Modesta Daley MD [address] [place] [address] PCP - General Internal Medicine 12/28/12 Everton Whitman MD [address] [facility] [address] [place] [address] Referring Gastroenterology 12/05/18 [facility] [address] [facility] 206 [place] [address] Pharmacist Pharmacy 06/23/19 [facility] [address] [place] [address] Pharmacist Pharmacy 09/05/20 Viet Johnson MD [address] [place] [address] Home Care Provider Orthopedics 10/30/21 Aung Man PA-C [address] [place] [address] Referring Orthopedics 10/30/21 Donovan White DO [address] [place] [address] Neurology 03/10/22 Molded Goods Spot Picker Relationship Specialty Start Date End Date Modesta Daley MD [address] [place] [address] PCP - General Internal Medicine 12/28/12 Everton Whitman MD [address] [facility] 206 [place] [address] Referring Gastroenterology 12/05/18 [facility] [address] [place] [address] Pharmacist Pharmacy 09/05/20 Viet Johnson MD [address] [place] [address] Home Care Provider Orthopedics 10/30/21 Aung Man PA-C [address] [place] [address] Referring Orthopedics 10/30/21 Donovan White DO [address] [place] [address] Neurology 03/10/22 Molded Goods Spot Picker Relationship Specialty Start Date End Date Modesta Daley MD [address] [place] [address] PCP - General Internal Medicine 12/28/12 Everton Whitman MD [address] [facility] [address] [place] [address] Referring Gastroenterology 12/05/18 [facility] [address] [place] [address] Pharmacist Pharmacy 09/05/20 Viet Johnson MD [address] [place] [address] Home Care Provider Orthopedics 10/30/21 Aung Man PA-C [address] [place] [address] Referring Orthopedics 10/30/21 Donovan White DO [address] [place] [address] Neurology 03/10/22 Molded Goods Spot Picker Relationship Specialty Start Date End Date Modesta Daley MD [address] [place] [address] PCP - General Internal Medicine 12/28/12 Everton Whitman MD [address] [address] Referring Gastroenterology 12/05/18 Sharita Cobb, [facility] [address] [place] [address] Pharmacist Pharmacy 09/05/20 Viet Johnson MD [address] [place] [address] Home Care Provider Orthopedics 10/30/21 Aung Man PA-C [address] [place] [address] Referring Orthopedics 10/30/21 Donovan White DO [address] [place] [address] Neurology 03/10/22 Molded Goods Spot Picker Relationship Specialty Start Date End Date Modesta Daley MD [address] [place] [address] PCP - General Internal Medicine 12/28/12 Everton Whitman MD [address] [facility] [address] [place] [address] Referring Gastroenterology 12/05/18 [facility]ita [facility] [address] [place] [address] Pharmacist Pharmacy 09/05/20 Viet Johnson MD [address] [place] [address] Home Care Provider Orthopedics 10/30/21 Aung Man PA-C [address] [place] [address] Referring Orthopedics 10/30/21 Donovan White DO [address] [place] [address] Neurology 03/10/22 Molded Goods Spot Picker Relationship Specialty Start Date End Date Modesta Daley MD [address] [place] [address] PCP - General Internal Medicine 12/28/12 Everton Whitman MD [address] [facility] [address] [place] [address] Referring Gastroenterology 12/05/18 [facility] [address] [place] [address] Pharmacist Pharmacy 09/05/20 Viet Johnson MD [address] [place] [address] Home Care Provider Orthopedics 10/30/21 Aung Man PA-C [address] [place] [address] Referring Orthopedics 10/30/21 Donovan White DO [address] [place] [address] Neurology 03/10/22 Molded Goods Spot Picker Relationship Specialty Start Date End Date Modesta Daley MD [address] [place] [address] PCP - General Internal Medicine 12/28/12 Everton Whitman MD [address] [facility] [address] [place] [address] Referring Gastroenterology 12/05/18 [facility] [address] [place] [address] Pharmacist Pharmacy 09/05/20 Viet Johnson MD [address] [place] [address] Home Care Provider Orthopedics 10/30/21 Aung Man PA-C [address] [place] [address] Referring Orthopedics 10/30/21 Donovan White DO [address] [place] [address] Neurology 03/10/22 Molded Goods Spot Picker Relationship Specialty Start Date End Date Modesta Daley MD [address] [place] [address] PCP - General Internal Medicine 12/28/12 Everton Whitman MD [address] [facility] [address] [place] [address] Referring Gastroenterology 12/05/18 [facility] [address] [place] [address] Pharmacist Pharmacy 09/05/20 Viet Johnson MD [address] [place] [address] Home Care Provider Orthopedics 10/30/21 Aung Man PA-C [address] [place] [address] Referring Orthopedics 10/30/21 Donovan White DO [address] [place] [address] Neurology 03/10/22 Molded Goods Spot Picker Relationship Specialty Start Date End Date Modesta Daley MD [address] [place] [address] PCP - General Internal Medicine 12/28/12 Everton Whitman MD [address] [facility] [address] [place] [address] Referring Gastroenterology 12/05/18 [facility] [address] [place] [address] Pharmacist Pharmacy 09/05/20 Viet Johnson MD [address] [place] [address] Home Care Provider Orthopedics 10/30/21 Aung Man PA-C [address] [place] [address] Referring Orthopedics 10/30/21 Donovan White DO [address] [place] [address] Neurology 03/10/22 Molded Goods Spot Picker Relationship Specialty Start Date End Date Modesta Daley MD [address] [place] [address] PCP - General Internal Medicine 12/28/12 Everton Whitman MD [address] [facility] [address] [place] [address] Referring Gastroenterology 12/05/18 [facility] [address] [facility] [address] [place] [address] Pharmacist Pharmacy 06/23/19 05/12/23 [facility] [address] [place] [address] Pharmacist Pharmacy 09/05/20 Molded Goods Spot Picker Relationship Specialty Start Date End Date Modesta Daley MD [address] [place] [address] PCP - General Internal Medicine 12/28/12 Everton Whitman MD [address] [facility] [address] [place] [address] Referring Gastroenterology 12/05/18 Sharita Cobb, [facility] [address] [place] [address] Pharmacist Pharmacy 09/05/20 Viet Johnson MD [address] [place] [address] Home Care Provider Orthopedics 10/30/21 Aung Man PA-C [address] [place] [phone] Referring Orthopedics 10/30/21 Donovan White DO [address] [place] [address] Neurology 03/10/22 Molded Goods Spot Picker Relationship Specialty Start Date End Date Modesta Daley MD [address] [place] [address] PCP - General Internal Medicine 12/28/12 Everton Whitman MD [address] [address] Referring Gastroenterology 12/05/18 Sharita Cobb, [facility] [address] [place] [address] Pharmacist Pharmacy 09/05/20 Viet Johnson MD [address] [place] [address] Home Care Provider Orthopedics 10/30/21 Aung Man PA-C [address] [place] [address] Referring Orthopedics 10/30/21 Donovan White DO [address] [place] [address] Neurology 03/10/22 Molded Goods Spot Picker Relationship Specialty Start Date End Date Modesta Daley MD [address] [place] [address] PCP - General 05/02/20 Molded Goods Spot Picker Relationship Specialty Start Date End Date Modesta Daley MD [address] [place] [address] PCP - General 05/02/20 Molded Goods Spot Picker Relationship Specialty Start Date End Date Modesta Daley MD [address] [place] [address] PCP - General 05/02/20 Molded Goods Spot Picker Relationship Specialty Start Date End Date Modesta Daley MD [address] [place] [address] PCP - General 05/02/20 Molded Goods Spot Picker Relationship Specialty Start Date End Date Modesta Daley MD [address] [place] [address] PCP - General Internal Medicine 12/28/12 Everton Whitman MD [address] [place] [address] Referring Gastroenterology 12/05/18 Sharita Cobb [facility] [address] [place] [address] Pharmacist Pharmacy 09/05/20 Viet Johnson MD [address] [place], [place] [address] Home Care Provider Orthopedics 10/30/21 Aung Man PA-C [address] [place] [address] Referring Orthopedics 10/30/21 Donovan White DO [address] [place] [address] Neurology 03/10/22 Effie Machado PA-C [address] [place] [address] Ambulatory Technologist Family Medicine 01/23/24 Inna Small APRN.[facility] [address] [place] [address] Ambulatory Technologist Internal Medicine 01/23/24 Berta Partida PA-C [address] [place] [address] Ambulatory Technologist Family [facility] 01/23/24 Molded Goods Spot Picker Relationship Specialty Start Date End Date Modesta Daley MD [address] [place] [address] PCP - General Internal Medicine 12/28/12 Everton Whitman MD [address] [address] Referring Gastroenterology 12/05/18 Sharita Cobb, [facility] [address] [place] [address] Pharmacist Pharmacy 09/05/20 Viet Johnson MD [address] [place] [address] Home Care Provider Orthopedics 10/30/21 Aung Man PA-C [address] [place] [address] Referring Orthopedics 10/30/21 Donovan White DO [address] [place] [address] Neurology 03/10/22 Effie Machado PA-C [address] [place] [address] Ambulatory Technologist Family Medicine 01/23/24 Inna Small 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 [address] [place] [address] Ambulatory Technologist Internal Medicine 01/23/24 Berta Partida PA-C [address] [place] [address] Ambulatory Technologist Family Medicine 01/23/24 Molded Goods Spot Picker Relationship Specialty Start Date End Date Modesta Daley MD [address] [place] [address] PCP - General Internal Medicine 12/28/12 Everton Whitman MD [address] [address] Referring Gastroenterology 12/05/18 Sharita Cobb [facility] [address] [place] [address] Pharmacist Pharmacy 09/05/20 Viet Johnson MD [address] [place] [address] Home Care Provider Orthopedics 10/30/21 Aung Man PA-C [address] [place] [address] Referring Orthopedics 10/30/21 Donovan Whiteuart [address] [place] [address] Neurology 03/10/22 Effie Machado PA-C [address] [place] [address] Ambulatory Technologist Family Medicine 01/23/24 Inna Small 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 [address] [place] [address] Ambulatory Technologist Internal Medicine 01/23/24 Berta Partida PA-C [address] [place] [address] Ambulatory Technologist Family Medicine 01/23/24 Molded Goods Spot Picker Relationship Specialty Start Date End Date Modesta Daley MD [address] [place] [address] PCP - General Internal Medicine 12/28/12 Everton Whitman MD [address] [address] Referring Gastroenterology 12/05/18 Sharita Cobb, [facility] [address] [place] [address] Pharmacist Pharmacy 09/05/20 Viet Johnson MD [address] [place] [address] Home Care Provider Orthopedics 10/30/21 Aung Man PA-C [address] [place] [address] Referring Orthopedics 10/30/21 Donovan White DO [address] [place] [address] Neurology 03/10/22 Effie Machado PA-C [address] [place] [address] Ambulatory Technologist Family Medicine 01/23/24 Inna Small 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 [address] [place] [address] Ambulatory Technologist Internal Medicine 01/23/24 Berta Partida PA-C [address] [place] [address] Ambulatory Technologist Family Medicine 01/23/24 Molded Goods Spot Picker Relationship Specialty Start Date End Date Modesta Daley MD [address] [place] [address] PCP - General Internal Medicine 12/28/12 Everton Whitman MD [address] [address] Referring Gastroenterology 12/05/18 Sharita Cobb [facility] [address] [place] [address] Pharmacist Pharmacy 09/05/20 Viet Johnson MD [address] [place] [address] Home Care Provider Orthopedics 10/30/21 Aung Man PA-C [address] [place] [address] Referring Orthopedics 10/30/21 Donovan White DO [address] [facility] [address] [place] [address] Neurology 03/10/22 Effie Machado PA-C [address] [place] [address] Ambulatory Technologist Family Medicine 01/23/24 Inna Small 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 [address] [place] [address] Ambulatory Technologist Internal Medicine 01/23/24 Berta Partida PA-C [address] [place] [address] Ambulatory Technologist Family Medicine 01/23/24 Molded Goods Spot Picker Relationship Specialty Start Date End Date Modesta Daley MD [address] [place] [address] PCP - General Internal Medicine 12/28/12 Everton Whitman MD [address] [facility] [address] [place] [address] Referring Gastroenterology 12/05/18 Sharita Cobb [facility] [address] [place] [address] Pharmacist Pharmacy 09/05/20 Viet Johnson MD [address] [place], [place] [address] Home Care Provider Orthopedics 10/30/21 Aung Man PA-C [address] [place] [address] Referring Orthopedics 10/30/21 Donovan White DO [address] [facility] [address] [place] [address] Neurology 03/10/22 Effie Machado PA-C [address] [place] [address] Ambulatory Technologist Family Medicine 01/23/24 Inna Small 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 [address] [place] [address] Ambulatory Technologist Internal Medicine 01/23/24 Berta Partida PA-C [address] [place], [place] [address] Ambulatory Technologist Family Medicine 01/23/24 Molded Goods Spot Picker Relationship Specialty Start Date End Date Modesta Daley MD [address] [place] [address] PCP - General Internal Medicine 12/28/12 Everton Whitman MD [address] [facility] [address] [place] [address] Referring Gastroenterology 12/05/18 Sharita Cobb [facility] [address] [place] [address] Pharmacist Pharmacy 09/05/20 Viet Johnson MD [address] [place] [address] Home Care Provider Orthopedics 10/30/21 Aung Man PA-C [address] [place] [address] Referring Orthopedics 10/30/21 Donovan White DO [address] [facility] [address] [place] [address] Neurology 03/10/22 Effie Machado PA-C [address] [place] [address] Ambulatory Technologist Family Medicine 01/23/24 Inna Small 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 [address] [place] [address] Ambulatory Technologist Internal Medicine 01/23/24 Berta Partida PA-C [address] [place] [address] Ambulatory Technologist Family Medicine 01/23/24 Molded Goods Spot Picker Relationship Specialty Start Date End Date Modesta Daley MD [address] [place], [place] [address] PCP - General Internal Medicine 12/28/12 Everton Whitman MD [address] [facility] [address] [place] [address] Referring Gastroenterology 12/05/18 Sharita Cobb RPh [address] [place] [address] Pharmacist Pharmacy 09/05/20 Viet Johnson MD [address] [place] [address] Home Care Provider Orthopedics 10/30/21 Aung Man PA-C [address] [place] [address] Referring Orthopedics 10/30/21 Donovan White DO [address] [phone] Neurology 03/10/22 Effie Machado PA-C [address] [place] [address] Ambulatory Technologist Family Medicine 01/23/24 05/07/24 Inna Small APRN.[facility] [address] [place] [address] Ambulatory Technologist Internal Medicine 01/23/24 Berta Partida PA-C [address] [place] [address] Ambulatory Technologist Family Medicine 01/23/24 05/07/24 Molded Goods Spot Picker Relationship Specialty Start Date End Date Modesta Daley MD [address] [place] [address] PCP - General Internal Medicine 12/28/12 Everton Whitman MD [address] [facility] [address] [place] [address] Referring Gastroenterology 12/05/18 Sharita Cobb [facility] [address] [place], [place] [address] Pharmacist Pharmacy 09/05/20 Viet Johnson MD [address] [place] [address] Home Care Provider Orthopedics 10/30/21 Aung Man PA-C [address] [place] [address] Referring Orthopedics 10/30/21 Donovan White DO [address] [facility] [address] [place] [address] Neurology 03/10/22 Inna Small 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 [address] [facility] [place] [address] Ambulatory Technologist Internal Medicine 01/23/24 Molded Goods Spot Picker Relationship Specialty Start Date End Date Modesta Daley MD [address] [place] [address] PCP - General Internal Medicine 12/28/12 Everton Whitman MD [address] [facility] [address] [place] [address] Referring Gastroenterology 12/05/18 Sharita Cobb [facility] [address] [place] [address] Pharmacist Pharmacy 09/05/20 Viet Johnson MD [address] [place] [address] Home Care Provider Orthopedics 10/30/21 Aung Man PA-C [address] [place] [address] Referring Orthopedics 10/30/21 Donovan White DO [address] [address] Neurology 03/10/22 Older, LARISSA Fuller.[employer] SHIFT MANAGER [address] [place] [address] Ambulatory Technologist Internal Medicine 01/23/24 Molded Goods Spot Picker Relationship Specialty Start Date End Date Modesta Daley MD [address] [place] [address] PCP - General Internal Medicine 12/28/12 Everton Whitman MD [address] [facility] [address] [place] [address] Referring Gastroenterology 12/05/18 Sharita Cobb, [facility] [address] [place] [address] Pharmacist Pharmacy 09/05/20 Viet Johnson MD [address] [place] [address] Home Care Provider Orthopedics 10/30/21 Aung Man PA-C [address] [place] [address] Referring Orthopedics 10/30/21 Donovan White DO [address] [address] Neurology 03/10/22 Inna Small 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 [address] [place] [address] Ambulatory Technologist Internal Medicine 01/23/24 Molded Goods Spot Picker Relationship Specialty Start Date End Date Modesta Daley MD [address] [place] [address] PCP - General Internal Medicine 12/28/12 Everton Whitman MD [address] [facility] [address] [place] [address] Referring Gastroenterology 12/05/18 [facility] [address] [place] [address] Pharmacist Pharmacy 09/05/20 Viet Johnson MD [address] [place] [address] Home Care Provider Orthopedics 10/30/21 Aung Man PA-C [address] [place] [address] Referring Orthopedics 10/30/21 Donovan White DO [address] [facility] [address] [place] [address] Neurology 03/10/22 Effie Machado PA-C [address] [place] [address] Ambulatory Technologist Family Medicine 01/23/24 05/07/24 Inna Small 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 [address] [facility] [place] [address] Ambulatory Technologist Internal Medicine 01/23/24 Berta Partida PA-C [address] [place] [address] Ambulatory Technologist Family Medicine 01/23/24 05/07/24 Molded Goods Spot Picker Relationship Specialty Start Date End Date Modesta Daley MD [address] [place] [address] PCP - General Internal Medicine 12/28/12 Everton Whitman MD [address] [facility] [address] [place] [address] Referring Gastroenterology 12/05/18 [facility] [address] [place] [address] Pharmacist Pharmacy 09/05/20 Viet Johnson MD [address] [place] [address] Home Care Provider Orthopedics 10/30/21 Aung Man PA-C [address] [place] [address] Referring Orthopedics 10/30/21 Donovan White DO [address] [facility] [address] [place] [address] Neurology 03/10/22 Inna Small 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 [address] [place] [address] Ambulatory Technologist Internal Medicine 01/23/24 Molded Goods Spot Picker Relationship Specialty Start Date End Date Modesta Daley MD [address] [place] [address] PCP - General Internal Medicine 12/28/12 Everton Whitman MD [address] [facility] [address] [place] [address] Referring Gastroenterology 12/05/18 WingateSharita abdullahi, [facility] [address] [place] [address] Pharmacist Pharmacy 09/05/20 Viet Johnson MD [address] [place] [address] Home Care Provider Orthopedics 10/30/21 Aung Man PA-C [address] [place] [address] Referring Orthopedics 10/30/21 Donovan White DO [address] [phone] Neurology 03/10/22 Inna Small 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 [address] [facility] [place] [address] Ambulatory Technologist Internal Medicine 01/23/24 Molded Goods Spot Picker Relationship Specialty Start Date End Date Modesta Daley MD [address] [place] [address] PCP - General Internal Medicine 12/28/12 Everton Whitman MD [address] [facility] [address] [place] [address] Referring Gastroenterology 12/05/18 Sharita Cobb [facility] [address] [place] [address] Pharmacist Pharmacy 09/05/20 Viet Johnson MD [address] [place] [address] Home Care Provider Orthopedics 10/30/21 Aung Man PA-C [address] [place] [address] Referring Orthopedics 10/30/21 Donovan White DO [address] [facility] [place] [address] Neurology 03/10/22 Inna Small 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 [address] [place] [address] Ambulatory Technologist Internal Medicine 01/23/24 Molded Goods Spot Picker Relationship Specialty Start Date End Date Modesta Daley MD [address] [place] [address] PCP - General Internal Medicine 12/28/12 Everton Whitman MD [address] [address] Referring Gastroenterology 12/05/18 Sharita Cobb, [facility] [address] [place] [address] Pharmacist Pharmacy 09/05/20 Viet Johnson MD [address] [place] [address] Home Care Provider Orthopedics 10/30/21 Aung Man PA-C [address] [place] [address] Referring Orthopedics 10/30/21 Donovan White DO [address] [facility] [address] [place] [address] Neurology 03/10/22 Inna Small 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 [address] [place] [address] Ambulatory Technologist Internal Medicine 01/23/24 INFORMATION SOURCE (unrecogn ized section and content) DATE CREATED AUTHOR 01/08/2021 [facility] DATE CREATED AUTHOR AUTHOR'S ORGANIZ ATION 12/12/2021 [facility] DATE CREATED AUTHOR AUTHOR'S ORGANIZ ATION 09/17/2022 [facility] DATE CREATED AUTHOR AUTHOR'S ORGANIZ ATION 01/01/2023 [facility] DATE CREATED AUTHOR AUTHOR'S ORGANIZ ATION 03/30/2024 [facility] DATE CREATED AUTHOR AUTHOR'S ORGANIZ ATION 12/13/2024 [facility] Source Comments (unrecognize d section and content) In the event this informatio n is protected by the Federal Confidentiality of Alcohol and Drug Abuse Patient Records regulations: The Federal rules restrict any use of the information to criminally investigate or prosecute any alcohol or drug abuse patient.[facility]In the event this information is protected by the Federal Confidentiality of Alcohol and Drug Abuse Patient Records regulations: The Federal rules restrict any use of the information to criminally investigate or prosecute any alcohol or drug abuse patient.[facility] the event this information is protected by the Federal Confidentiality of Alcohol and Drug Abuse Patient Records regulations: The Federal rules restrict any use of the information to criminally investigate or prosecute any alcohol or drug abuse patient.[facility] CampusIn the event this information is protected by the Federal Confidentiality of Alcohol and Drug Abuse Patient Records regulations: The Federal rules restrict any use of the information to criminally investigate or prosecute any alcohol or drug abuse patient.[facility] CampusIn the event this information is protected by the Federal Confidentiality of Alcohol and Drug Abuse Patient Records regulations: The Federal rules restrict any use of the information to criminally investigate or prosecute any alcohol or drug abuse patient.[facility] the event this information is protected by the Federal Confidentiality of Alcohol and Drug Abuse Patient Records regulations: The Federal rules restrict any use of the information to criminally investigate or prosecute any alcohol or drug abuse patient.[facility] CampusIn the event this information is protected by the Federal Confidentiality of Alcohol and Drug Abuse Patient Records regulations: The Federal rules restrict any use of the information to criminally investigate or prosecute any alcohol or drug abuse patient.[facility] CampusIn the event this information is protected by the Federal Confidentiality of Alcohol and Drug Abuse Patient Records regulations: The Federal rules restrict any use of the information to criminally investigate or prosecute any alcohol or drug abuse patient.[facility] CampusIn the event this information is protected by the Federal Confidentiality of Alcohol and Drug Abuse Patient Records regulations: The Federal rules restrict any use of the information to criminally investigate or prosecute any alcohol or drug abuse patient.[facility] CampusIn the event this information is protected by the Federal Confidentiality of Alcohol and Drug Abuse Patient Records regulations: The Federal rules restrict any use of the information to criminally investigate or prosecute any alcohol or drug abuse patient.[facility] CampusIn the event this information is protected by the Federal Confidentiality of Alcohol and Drug Abuse Patient Records regulations: The Federal rules restrict any use of the information to criminally investigate or prosecute any alcohol or drug abuse patient.[facility] CampusIn the event this information is protected by the Federal Confidentiality of Alcohol and Drug Abuse Patient Records regulations: The Federal rules restrict any use of the information to criminally investigate or prosecute any alcohol or drug abuse patient.[facility] CampusIn the event this information is protected by the Federal Confidentiality of Alcohol and Drug Abuse Patient Records regulations: The Federal rules restrict any use of the information to criminally investigate or prosecute any alcohol or drug abuse patient.[facility] CampusIn the event this information is protected by the Federal Confidentiality of Alcohol and Drug Abuse Patient Records regulations: The Federal rules restrict any use of the information to criminally investigate or prosecute any alcohol or drug abuse patient.[facility] CampusIn the event this information is protected by the Federal Confidentiality of Alcohol and Drug Abuse Patient Records regulations: The Federal rules restrict any use of the information to criminally investigate or prosecute any alcohol or drug abuse patient.[facility] CampusIn the event this information is protected by the Federal Confidentiality of Alcohol and Drug Abuse Patient Records regulations: The Federal rules restrict any use of the information to criminally investigate or prosecute any alcohol or drug abuse patient.[facility] CampusIn the event this information is protected by the Federal Confidentiality of Alcohol and Drug Abuse Patient Records regulations: The Federal rules restrict any use of the information to criminally investigate or prosecute any alcohol or drug abuse patient.[facility] CampusIn the event this information is protected by the Federal Confidentiality of Alcohol and Drug Abuse Patient Records regulations: The Federal rules restrict any use of the information to criminally investigate or prosecute any alcohol or drug abuse patient.[facility] CampusIn the event this information is protected by the Federal Confidentiality of Alcohol and Drug Abuse Patient Records regulations: The Federal rules restrict any use of the information to criminally investigate or prosecute any alcohol or drug abuse patient.[facility] CampusIn the event this information is protected by the Federal Confidentiality of Alcohol and Drug Abuse Patient Records regulations: The Federal rules restrict any use of the information to criminally investigate or prosecute any alcohol or drug abuse patient.[facility] CampusIn the event this information is protected by the Federal Confidentiality of Alcohol and Drug Abuse Patient Records regulations: The Federal rules restrict any use of the information to criminally investigate or prosecute any alcohol or drug abuse patient.[facility] CampusIn the event this information is protected by the Federal Confidentiality of Alcohol and Drug Abuse Patient Records regulations: The Federal rules restrict any use of the information to criminally investigate or prosecute any alcohol or drug abuse patient.[facility] CampusIn the event this information is protected by the Federal Confidentiality of Alcohol and Drug Abuse Patient Records regulations: The Federal rules restrict any use of the information to criminally investigate or prosecute any alcohol or drug abuse patient.[facility] CampusIn the event this information is protected by the Federal Confidentiality of Alcohol and Drug Abuse Patient Records regulations: The Federal rules restrict any use of the information to criminally investigate or prosecute any alcohol or drug abuse patient.[facility] CampusIn the event this information is protected by the Federal Confidentiality of Alcohol and Drug Abuse Patient Records regulations: The Federal rules restrict any use of the information to criminally investigate or prosecute any alcohol or drug abuse patient.[facility] CampusIn the event this information is protected by the Federal Confidentiality of Alcohol and Drug Abuse Patient Records regulations: The Federal rules restrict any use of the information to criminally investigate or prosecute any alcohol or drug abuse patient.[facility] CampusIn the event this information is protected by the Federal Confidentiality of Alcohol and Drug Abuse Patient Records regulations: The Federal rules restrict any use of the information to criminally investigate or prosecute any alcohol or drug abuse patient.[facility] CampusIn the event this information is protected by the Federal Confidentiality of Alcohol and Drug Abuse Patient Records regulations: The Federal rules restrict any use of the information to criminally investigate or prosecute any alcohol or drug abuse patient.[facility] CampusIn the event this information is protected by the Federal Confidentiality of Alcohol and Drug Abuse Patient Records regulations: The Federal rules restrict any use of the information to criminally investigate or prosecute any alcohol or drug abuse patient.[facility] CampusIn the event this information is protected by the Federal Confidentiality of Alcohol and Drug Abuse Patient Records regulations: The Federal rules restrict any use of the information to criminally investigate or prosecute any alcohol or drug abuse patient.[facility] CampusIn the event this information is protected by the Federal Confidentiality of Alcohol and Drug Abuse Patient Records regulations: The Federal rules restrict any use of the information to criminally investigate or prosecute any alcohol or drug abuse patient.[facility] CampusIn the event this information is protected by the Federal Confidentiality of Alcohol and Drug Abuse Patient Records regulations: The Federal rules restrict any use of the information to criminally investigate or prosecute any alcohol or drug abuse patient.[facility] CampusIn the event this information is protected by the Federal Confidentiality of Alcohol and Drug Abuse Patient Records regulations: The Federal rules restrict any use of the information to criminally investigate or prosecute any alcohol or drug abuse patient.[facility] CampusIn the event this information is protected by the Federal Confidentiality of Alcohol and Drug Abuse Patient Records regulations: The Federal rules restrict any use of the information to criminally investigate or prosecute any alcohol or drug abuse patient.[facility] CampusIn the event this information is protected by the Federal Confidentiality of Alcohol and Drug Abuse Patient Records regulations: The Federal rules restrict any use of the information to criminally investigate or prosecute any alcohol or drug abuse patient.[facility] CampusIn the event this information is protected by the Federal Confidentiality of Alcohol and Drug Abuse Patient Records regulations: The Federal rules restrict any use of the information to criminally investigate or prosecute any alcohol or drug abuse patient.[facility] CampusIn the event this information is protected by the Federal Confidentiality of Alcohol and Drug Abuse Patient Records regulations: The Federal rules restrict any use of the information to criminally investigate or prosecute any alcohol or drug abuse patient.[facility] CampusIn the event this information is protected by the Federal Confidentiality of Alcohol and Drug Abuse Patient Records regulations: The Federal rules restrict any use of the information to criminally investigate or prosecute any alcohol or drug abuse patient.[facility] CampusIn the event this information is protected by the Federal Confidentiality of Alcohol and Drug Abuse Patient Records regulations: The Federal rules restrict any use of the information to criminally investigate or prosecute any alcohol or drug abuse patient.[facility] CampusIn the event this information is protected by the Federal Confidentiality of Alcohol and Drug Abuse Patient Records regulations: The Federal rules restrict any use of the information to criminally investigate or prosecute any alcohol or drug abuse patient.[facility] CampusIn the event this information is protected by the Federal Confidentiality of Alcohol and Drug Abuse Patient Records regulations: The Federal rules restrict any use of the information to criminally investigate or prosecute any alcohol or drug abuse patient.[facility] CampusIn the event this information is protected by the Federal Confidentiality of Alcohol and Drug Abuse Patient Records regulations: The Federal rules restrict any use of the information to criminally investigate or prosecute any alcohol or drug abuse patient.[facility] CampusIn the event this information is protected by the Federal Confidentiality of Alcohol and Drug Abuse Patient Records regulations: The Federal rules restrict any use of the information to criminally investigate or prosecute any alcohol or drug abuse patient.[facility] CampusIn the event this information is protected by the Federal Confidentiality of Alcohol and Drug Abuse Patient Records regulations: The Federal rules restrict any use of the information to criminally investigate or prosecute any alcohol or drug abuse patient.[facility] CampusIn the event this information is protected by the Federal Confidentiality of Alcohol and Drug Abuse Patient Records regulations: The Federal rules restrict any use of the information to criminally investigate or prosecute any alcohol or drug abuse patient.[facility] CampusIn the event this information is protected by the Federal Confidentiality of Alcohol and Drug Abuse Patient Records regulations: The Federal rules restrict any use of the information to criminally investigate or prosecute any alcohol or drug abuse patient.[facility] CampusIn the event this information is protected by the Federal Confidentiality of Alcohol and Drug Abuse Patient Records regulations: The Federal rules restrict any use of the information to criminally investigate or prosecute any alcohol or drug abuse patient.[facility] CampusIn the event this information is protected by the Federal Confidentiality of Alcohol and Drug Abuse Patient Records regulations: The Federal rules restrict any use of the information to criminally investigate or prosecute any alcohol or drug abuse patient.[facility] CampusIn the event this information is protected by the Federal Confidentiality of Alcohol and Drug Abuse Patient Records regulations: The Federal rules restrict any use of the information to criminally investigate or prosecute any alcohol or drug abuse patient.[facility] CampusIn the event this information is protected by the Federal Confidentiality of Alcohol and Drug Abuse Patient Records regulations: The Federal rules restrict any use of the information to criminally investigate or prosecute any alcohol or drug abuse patient.[facility] CampusIn the event this information is protected by the Federal Confidentiality of Alcohol and Drug Abuse Patient Records regulations: The Federal rules restrict any use of the information to criminally investigate or prosecute any alcohol or drug abuse patient.[facility] CampusIn the event this information is protected by the Federal Confidentiality of Alcohol and Drug Abuse Patient Records regulations: The Federal rules restrict any use of the information to criminally investigate or prosecute any alcohol or drug abuse patient.[facility] the event this information is protected by the Federal Confidentiality of Alcohol and Drug Abuse Patient Records regulations: The Federal rules restrict any use of the information to criminally investigate or prosecute any alcohol or drug abuse patient.[facility] CampusIn the event this information is protected by the Federal Confidentiality of Alcohol and Drug Abuse Patient Records regulations: The Federal rules restrict any use of the information to criminally investigate or prosecute any alcohol or drug abuse patient.[facility] CampusIn the event this information is protected by the Federal Confidentiality of Alcohol and Drug Abuse Patient Records regulations: The Federal rules restrict any use of the information to criminally investigate or prosecute any alcohol or drug abuse patient.[facility]In the event this information is protected by the Federal Confidentiality of Alcohol and Drug Abuse Patient Records regulations: The Federal rules restrict any use of the information to criminally investigate or prosecute any alcohol or drug abuse patient.[facility] CampusIn the event this information is protected by the Federal Confidentiality of Alcohol and Drug Abuse Patient Records regulations: The Federal rules restrict any use of the information to criminally investigate or prosecute any alcohol or drug abuse patient.[facility] CampusIn the event this information is protected by the Federal Confidentiality of Alcohol and Drug Abuse Patient Records regulations: The Federal rules restrict any use of the information to criminally investigate or prosecute any alcohol or drug abuse patient.[facility] CampusIn the event this information is protected by the Federal Confidentiality of Alcohol and Drug Abuse Patient Records regulations: The Federal rules restrict any use of the information to criminally investigate or prosecute any alcohol or drug abuse patient.[facility] CampusIn the event this information is protected by the Federal Confidentiality of Alcohol and Drug Abuse Patient Records regulations: The Federal rules restrict any use of the information to criminally investigate or prosecute any alcohol or drug abuse patient.[facility] CampusIn the event this information is protected by the Federal Confidentiality of Alcohol and Drug Abuse Patient Records regulations: The Federal rules restrict any use of the information to criminally investigate or prosecute any alcohol or drug abuse patient.[facility] CampusIn the event this information is protected by the Federal Confidentiality of Alcohol and Drug Abuse Patient Records regulations: The Federal rules restrict any use of the information to criminally investigate or prosecute any alcohol or drug abuse patient.[facility] CampusIn the event this information is protected by the Federal Confidentiality of Alcohol and Drug Abuse Patient Records regulations: The Federal rules restrict any use of the information to criminally investigate or prosecute any alcohol or drug abuse patient.[facility] CampusIn the event this information is protected by the Federal Confidentiality of Alcohol and Drug Abuse Patient Records regulations: The Federal rules restrict any use of the information to criminally investigate or prosecute any alcohol or drug abuse patient.[facility] CampusIn the event this information is protected by the Federal Confidentiality of Alcohol and Drug Abuse Patient Records regulations: The Federal rules restrict any use of the information to criminally investigate or prosecute any alcohol or drug abuse patient.[facility] CampusIn the event this information is protected by the Federal Confidentiality of Alcohol and Drug Abuse Patient Records regulations: The Federal rules restrict any use of the information to criminally investigate or prosecute any alcohol or drug abuse patient.[facility] CampusIn the event this information is protected by the Federal Confidentiality of Alcohol and Drug Abuse Patient Records regulations: The Federal rules restrict any use of the information to criminally investigate or prosecute any alcohol or drug abuse patient.[facility] CampusIn the event this information is protected by the Federal Confidentiality of Alcohol and Drug Abuse Patient Records regulations: The Federal rules restrict any use of the information to criminally investigate or prosecute any alcohol or drug abuse patient.[facility] CampusIn the event this information is protected by the Federal Confidentiality of Alcohol and Drug Abuse Patient Records regulations: The Federal rules restrict any use of the information to criminally investigate or prosecute any alcohol or drug abuse patient.[facility] CampusIn the event this information is protected by the Federal Confidentiality of Alcohol and Drug Abuse Patient Records regulations: The Federal rules restrict any use of the information to criminally investigate or prosecute any alcohol or drug abuse patient.[facility] CampusIn the event this information is protected by the Federal Confidentiality of Alcohol and Drug Abuse Patient Records regulations: The Federal rules restrict any use of the information to criminally investigate or prosecute any alcohol or drug abuse patient.[facility] CampusIn the event this information is protected by the Federal Confidentiality of Alcohol and Drug Abuse Patient Records regulations: The Federal rules restrict any use of the information to criminally investigate or prosecute any alcohol or drug abuse patient.[facility] CampusIn the event this information is protected by the Federal Confidentiality of Alcohol and Drug Abuse Patient Records regulations: The Federal rules restrict any use of the information to criminally investigate or prosecute any alcohol or drug abuse patient.[facility] CampusIn the event this information is protected by the Federal Confidentiality of Alcohol and Drug Abuse Patient Records regulations: The Federal rules restrict any use of the information to criminally investigate or prosecute any alcohol or drug abuse patient.[facility] CampusIn the event this information is protected by the Federal Confidentiality of Alcohol and Drug Abuse Patient Records regulations: The Federal rules restrict any use of the information to criminally investigate or prosecute any alcohol or drug abuse patient.[facility] CampusIn the event this information is protected by the Federal Confidentiality of Alcohol and Drug Abuse Patient Records regulations: The Federal rules restrict any use of the information to criminally investigate or prosecute any alcohol or drug abuse patient.[facility] CampusIn the event this information is protected by the Federal Confidentiality of Alcohol and Drug Abuse Patient Records regulations: The Federal rules restrict any use of the information to criminally investigate or prosecute any alcohol or drug abuse patient.[facility] CampusIn the event this information is protected by the Federal Confidentiality of Alcohol and Drug Abuse Patient Records regulations: The Federal rules restrict any use of the information to criminally investigate or prosecute any alcohol or drug abuse patient.[facility] CampusIn the event this information is protected by the Federal Confidentiality of Alcohol and Drug Abuse Patient Records regulations: The Federal rules restrict any use of the information to criminally investigate or prosecute any alcohol or drug abuse patient.[facility] CampusIn the event this information is protected by the Federal Confidentiality of Alcohol and Drug Abuse Patient Records regulations: The Federal rules restrict any use of the information to criminally investigate or prosecute any alcohol or drug abuse patient.[facility] CampusIn the event this information is protected by the Federal Confidentiality of Alcohol and Drug Abuse Patient Records regulations: The Federal rules restrict any use of the information to criminally investigate or prosecute any alcohol or drug abuse patient.[facility] CampusIn the event this information is protected by the Federal Confidentiality of Alcohol and Drug Abuse Patient Records regulations: The Federal rules restrict any use of the information to criminally investigate or prosecute any alcohol or drug abuse patient.[facility] CampusIn the event this information is protected by the Federal Confidentiality of Alcohol and Drug Abuse Patient Records regulations: The Federal rules restrict any use of the information to criminally investigate or prosecute any alcohol or drug abuse patient.[facility] CampusIn the event this information is protected by the Federal Confidentiality of Alcohol and Drug Abuse Patient Records regulations: The Federal rules restrict any use of the information to criminally investigate or prosecute any alcohol or drug abuse patient.[facility] CampusIn the event this information is protected by the Federal Confidentiality of Alcohol and Drug Abuse Patient Records regulations: The Federal rules restrict any use of the information to criminally investigate or prosecute any alcohol or drug abuse patient.[facility] CampusIn the event this information is protected by the Federal Confidentiality of Alcohol and Drug Abuse Patient Records regulations: The Federal rules restrict any use of the information to criminally investigate or prosecute any alcohol or drug abuse patient.[facility] CampusIn the event this information is protected by the Federal Confidentiality of Alcohol and Drug Abuse Patient Records regulations: The Federal rules restrict any use of the information to criminally investigate or prosecute any alcohol or drug abuse patient.[facility] CampusIn the event this information is protected by the Federal Confidentiality of Alcohol and Drug Abuse Patient Records regulations: The Federal rules restrict any use of the information to criminally investigate or prosecute any alcohol or drug abuse patient.[facility] CampusIn the event this information is protected by the Federal Confidentiality of Alcohol and Drug Abuse Patient Records regulations: The Federal rules restrict any use of the information to criminally investigate or prosecute any alcohol or drug abuse patient.[facility] CampusIn the event this information is protected by the Federal Confidentiality of Alcohol and Drug Abuse Patient Records regulations: The Federal rules restrict any use of the information to criminally investigate or prosecute any alcohol or drug abuse patient.[facility] CampusIn the event this information is protected by the Federal Confidentiality of Alcohol and Drug Abuse Patient Records regulations: The Federal rules restrict any use of the information to criminally investigate or prosecute any alcohol or drug abuse patient.[facility] CampusIn the event this information is protected by the Federal Confidentiality of Alcohol and Drug Abuse Patient Records regulations: The Federal rules restrict any use of the information to criminally investigate or prosecute any alcohol or drug abuse patient.[facility] CampusIn the event this information is protected by the Federal Confidentiality of Alcohol and Drug Abuse Patient Records regulations: The Federal rules restrict any use of the information to criminally investigate or prosecute any alcohol or drug abuse patient.[facility] CampusIn the event this information is protected by the Federal Confidentiality of Alcohol and Drug Abuse Patient Records regulations: The Federal rules restrict any use of the information to criminally investigate or prosecute any alcohol or drug abuse patient.[facility] CampusIn the event this information is protected by the Federal Confidentiality of Alcohol and Drug Abuse Patient Records regulations: The Federal rules restrict any use of the information to criminally investigate or prosecute any alcohol or drug abuse patient.[facility] CampusIn the event this information is protected by the Federal Confidentiality of Alcohol and Drug Abuse Patient Records regulations: The Federal rules restrict any use of the information to criminally investigate or prosecute any alcohol or drug abuse patient.[facility] CampusIn the event this information is protected by the Federal Confidentiality of Alcohol and Drug Abuse Patient Records regulations: The Federal rules restrict any use of the information to criminally investigate or prosecute any alcohol or drug abuse patient.[facility] CampusIn the event this information is protected by the Federal Confidentiality of Alcohol and Drug Abuse Patient Records regulations: The Federal rules restrict any use of the information to criminally investigate or prosecute any alcohol or drug abuse patient.[facility] CampusIn the event this information is protected by the Federal Confidentiality of Alcohol and Drug Abuse Patient Records regulations: The Federal rules restrict any use of the information to criminally investigate or prosecute any alcohol or drug abuse patient.[facility] CampusIn the event this information is protected by the Federal Confidentiality of Alcohol and Drug Abuse Patient Records regulations: The Federal rules restrict any use of the information to criminally investigate or prosecute any alcohol or drug abuse patient.[facility] CampusIn the event this information is protected by the Federal Confidentiality of Alcohol and Drug Abuse Patient Records regulations: The Federal rules restrict any use of the information to criminally investigate or prosecute any alcohol or drug abuse patient.[facility] CampusIn the event this information is protected by the Federal Confidentiality of Alcohol and Drug Abuse Patient Records regulations: The Federal rules restrict any use of the information to criminally investigate or prosecute any alcohol or drug abuse patient.[facility] the event this information is protected by the Federal Confidentiality of Alcohol and Drug Abuse Patient Records regulations: The Federal rules restrict any use of the information to criminally investigate or prosecute any alcohol or drug abuse patient.[facility] CampusIn the event this information is protected by the Federal Confidentiality of Alcohol and Drug Abuse Patient Records regulations: The Federal rules restrict any use of the information to criminally investigate or prosecute any alcohol or drug abuse patient.[facility] CampusIn the event this information is protected by the Federal Confidentiality of Alcohol and Drug Abuse Patient Records regulations: The Federal rules restrict any use of the information to criminally investigate or prosecute any alcohol or drug abuse patient.[facility] the event this information is protected by the Federal Confidentiality of Alcohol and Drug Abuse Patient Records regulations: The Federal rules restrict any use of the information to criminally investigate or prosecute any alcohol or drug abuse patient.[facility] CampusIn the event this information is protected by the Federal Confidentiality of Alcohol and Drug Abuse Patient Records regulations: The Federal rules restrict any use of the information to criminally investigate or prosecute any alcohol or drug abuse patient.[facility] CampusIn the event this information is protected by the Federal Confidentiality of Alcohol and Drug Abuse Patient Records regulations: The Federal rules restrict any use of the information to criminally investigate or prosecute any alcohol or drug abuse patient.[facility] CampusIn the event this information is protected by the Federal Confidentiality of Alcohol and Drug Abuse Patient Records regulations: The Federal rules restrict any use of the information to criminally investigate or prosecute any alcohol or drug abuse patient.[facility] CampusIn the event this information is protected by the Federal Confidentiality of Alcohol and Drug Abuse Patient Records regulations: The Federal rules restrict any use of the information to criminally investigate or prosecute any alcohol or drug abuse patient.[facility] CampusIn the event this information is protected by the Federal Confidentiality of Alcohol and Drug Abuse Patient Records regulations: The Federal rules restrict any use of the information to criminally investigate or prosecute any alcohol or drug abuse patient.[facility] CampusIn the event this information is protected by the Federal Confidentiality of Alcohol and Drug Abuse Patient Records regulations: The Federal rules restrict any use of the information to criminally investigate or prosecute any alcohol or drug abuse patient.[facility] CampusIn the event this information is protected by the Federal Confidentiality of Alcohol and Drug Abuse Patient Records regulations: The Federal rules restrict any use of the information to criminally investigate or prosecute any alcohol or drug abuse patient.[facility] CampusIn the event this information is protected by the Federal Confidentiality of Alcohol and Drug Abuse Patient Records regulations: The Federal rules restrict any use of the information to criminally investigate or prosecute any alcohol or drug abuse patient.[facility] CampusIn the event this information is protected by the Federal Confidentiality of Alcohol and Drug Abuse Patient Records regulations: The Federal rules restrict any use of the information to criminally investigate or prosecute any alcohol or drug abuse patient.[facility] CampusIn the event this information is protected by the Federal Confidentiality of Alcohol and Drug Abuse Patient Records regulations: The Federal rules restrict any use of the information to criminally investigate or prosecute any alcohol or drug abuse patient.[facility] CampusIn the event this information is protected by the Federal Confidentiality of Alcohol and Drug Abuse Patient Records regulations: The Federal rules restrict any use of the information to criminally investigate or prosecute any alcohol or drug abuse patient.[facility] CampusIn the event this information is protected by the Federal Confidentiality of Alcohol and Drug Abuse Patient Records regulations: The Federal rules restrict any use of the information to criminally investigate or prosecute any alcohol or drug abuse patient.[facility] CampusIn the event this information is protected by the Federal Confidentiality of Alcohol and Drug Abuse Patient Records regulations: The Federal rules restrict any use of the information to criminally investigate or prosecute any alcohol or drug abuse patient.[facility] CampusIn the event this information is protected by the Federal Confidentiality of Alcohol and Drug Abuse Patient Records regulations: The Federal rules restrict any use of the information to criminally investigate or prosecute any alcohol or drug abuse patient.[facility] CampusIn the event this information is protected by the Federal Confidentiality of Alcohol and Drug Abuse Patient Records regulations: The Federal rules restrict any use of the information to criminally investigate or prosecute any alcohol or drug abuse patient.[facility] CampusIn the event this information is protected by the Federal Confidentiality of Alcohol and Drug Abuse Patient Records regulations: The Federal rules restrict any use of the information to criminally investigate or prosecute any alcohol or drug abuse patient.[facility] CampusIn the event this information is protected by the Federal Confidentiality of Alcohol and Drug Abuse Patient Records regulations: The Federal rules restrict any use of the information to criminally investigate or prosecute any alcohol or drug abuse patient.[facility] CampusIn the event this information is protected by the Federal Confidentiality of Alcohol and Drug Abuse Patient Records regulations: The Federal rules restrict any use of the information to criminally investigate or prosecute any alcohol or drug abuse patient.[facility] CampusIn the event this information is protected by the Federal Confidentiality of Alcohol and Drug Abuse Patient Records regulations: The Federal rules restrict any use of the information to criminally investigate or prosecute any alcohol or drug abuse patient.[facility] CampusIn the event this information is protected by the Federal Confidentiality of Alcohol and Drug Abuse Patient Records regulations: The Federal rules restrict any use of the information to criminally investigate or prosecute any alcohol or drug abuse patient.[facility] CampusIn the event this information is protected by the Federal Confidentiality of Alcohol and Drug Abuse Patient Records regulations: The Federal rules restrict any use of the information to criminally investigate or prosecute any alcohol or drug abuse patient.[facility] CampusIn the event this information is protected by the Federal Confidentiality of Alcohol and Drug Abuse Patient Records regulations: The Federal rules restrict any use of the information to criminally investigate or prosecute any alcohol or drug abuse patient.[facility] CampusIn the event this information is protected by the Federal Confidentiality of Alcohol and Drug Abuse Patient Records regulations: The Federal rules restrict any use of the information to criminally investigate or prosecute any alcohol or drug abuse patient.[facility] CampusIn the event this information is protected by the Federal Confidentiality of Alcohol and Drug Abuse Patient Records regulations: The Federal rules restrict any use of the information to criminally investigate or prosecute any alcohol or drug abuse patient.[facility] CampusIn the event this information is protected by the Federal Confidentiality of Alcohol and Drug Abuse Patient Records regulations: The Federal rules restrict any use of the information to criminally investigate or prosecute any alcohol or drug abuse patient.[facility] CampusIn the event this information is protected by the Federal Confidentiality of Alcohol and Drug Abuse Patient Records regulations: The Federal rules restrict any use of the information to criminally investigate or prosecute any alcohol or drug abuse patient.[facility] CampusIn the event this information is protected by the Federal Confidentiality of Alcohol and Drug Abuse Patient Records regulations: The Federal rules restrict any use of the information to criminally investigate or prosecute any alcohol or drug abuse patient.[facility] CampusIn the event this information is protected by the Federal Confidentiality of Alcohol and Drug Abuse Patient Records regulations: The Federal rules restrict any use of the information to criminally investigate or prosecute any alcohol or drug abuse patient.[facility] CampusIn the event this information is protected by the Federal Confidentiality of Alcohol and Drug Abuse Patient Records regulations: The Federal rules restrict any use of the information to criminally investigate or prosecute any alcohol or drug abuse patient.[facility] CampusIn the event this information is protected by the Federal Confidentiality of Alcohol and Drug Abuse Patient Records regulations: The Federal rules restrict any use of the information to criminally investigate or prosecute any alcohol or drug abuse patient.[facility] CampusIn the event this information is protected by the Federal Confidentiality of Alcohol and Drug Abuse Patient Records regulations: The Federal rules restrict any use of the information to criminally investigate or prosecute any alcohol or drug abuse patient.[facility] CampusIn the event this information is protected by the Federal Confidentiality of Alcohol and Drug Abuse Patient Records regulations: The Federal rules restrict any use of the information to criminally investigate or prosecute any alcohol or drug abuse patient.[facility] CampusIn the event this information is protected by the Federal Confidentiality of Alcohol and Drug Abuse Patient Records regulations: The Federal rules restrict any use of the information to criminally investigate or prosecute any alcohol or drug abuse patient.[facility] CampusIn the event this information is protected by the Federal Confidentiality of Alcohol and Drug Abuse Patient Records regulations: The Federal rules restrict any use of the information to criminally investigate or prosecute any alcohol or drug abuse patient.[facility] CampusIn the event this information is protected by the Federal Confidentiality of Alcohol and Drug Abuse Patient Records regulations: The Federal rules restrict any use of the information to criminally investigate or prosecute any alcohol or drug abuse patient.[facility] CampusIn the event this information is protected by the Federal Confidentiality of Alcohol and Drug Abuse Patient Records regulations: The Federal rules restrict any use of the information to criminally investigate or prosecute any alcohol or drug abuse patient.[facility] CampusIn the event this information is protected by the Federal Confidentiality of Alcohol and Drug Abuse Patient Records regulations: The Federal rules restrict any use of the information to criminally investigate or prosecute any alcohol or drug abuse patient.[facility] CampusIn the event this information is protected by the Federal Confidentiality of Alcohol and Drug Abuse Patient Records regulations: The Federal rules restrict any use of the information to criminally investigate or prosecute any alcohol or drug abuse patient.[facility] CampusIn the event this information is protected by the Federal Confidentiality of Alcohol and Drug Abuse Patient Records regulations: The Federal rules restrict any use of the information to criminally investigate or prosecute any alcohol or drug abuse patient.[facility] CampusIn the event this information is protected by the Federal Confidentiality of Alcohol and Drug Abuse Patient Records regulations: The Federal rules restrict any use of the information to criminally investigate or prosecute any alcohol or drug abuse patient.[facility] CampusIn the event this information is protected by the Federal Confidentiality of Alcohol and Drug Abuse Patient Records regulations: The Federal rules restrict any use of the information to criminally investigate or prosecute any alcohol or drug abuse patient.[facility] CampusIn the event this information is protected by the Federal Confidentiality of Alcohol and Drug Abuse Patient Records regulations: The Federal rules restrict any use of the information to criminally investigate or prosecute any alcohol or drug abuse patient.[facility] CampusIn the event this information is protected by the Federal Confidentiality of Alcohol and Drug Abuse Patient Records regulations: The Federal rules restrict any use of the information to criminally investigate or prosecute any alcohol or drug abuse patient.[facility] CampusIn the event this information is protected by the Federal Confidentiality of Alcohol and Drug Abuse Patient Records regulations: The Federal rules restrict any use of the information to criminally investigate or prosecute any alcohol or drug abuse patient.[facility] CampusIn the event this information is protected by the Federal Confidentiality of Alcohol and Drug Abuse Patient Records regulations: The Federal rules restrict any use of the information to criminally investigate or prosecute any alcohol or drug abuse patient.[facility] CampusIn the event this information is protected by the Federal Confidentiality of Alcohol and Drug Abuse Patient Records regulations: The Federal rules restrict any use of the information to criminally investigate or prosecute any alcohol or drug abuse patient.[facility] the event this information is protected by the Federal Confidentiality of Alcohol and Drug Abuse Patient Records regulations: The Federal rules restrict any use of the information to criminally investigate or prosecute any alcohol or drug abuse patient.[facility] CampusIn the event this information is protected by the Federal Confidentiality of Alcohol and Drug Abuse Patient Records regulations: The Federal rules restrict any use of the information to criminally investigate or prosecute any alcohol or drug abuse patient.[facility] CampusIn the event this information is protected by the Federal Confidentiality of Alcohol and Drug Abuse Patient Records regulations: The Federal rules restrict any use of the information to criminally investigate or prosecute any alcohol or drug abuse patient.[facility]In the event this information is protected by the Federal Confidentiality of Alcohol and Drug Abuse Patient Records regulations: The Federal rules restrict any use of the information to criminally investigate or prosecute any alcohol or drug abuse patient.[facility] CampusIn the event this information is protected by the Federal Confidentiality of Alcohol and Drug Abuse Patient Records regulations: The Federal rules restrict any use of the information to criminally investigate or prosecute any alcohol or drug abuse patient.[facility] CampusIn the event this information is protected by the Federal Confidentiality of Alcohol and Drug Abuse Patient Records regulations: The Federal rules restrict any use of the information to criminally investigate or prosecute any alcohol or drug abuse patient.[facility] CampusIn the event this information is protected by the Federal Confidentiality of Alcohol and Drug Abuse Patient Records regulations: The Federal rules restrict any use of the information to criminally investigate or prosecute any alcohol or drug abuse patient.[facility] CampusIn the event this information is protected by the Federal Confidentiality of Alcohol and Drug Abuse Patient Records regulations: The Federal rules restrict any use of the information to criminally investigate or prosecute any alcohol or drug abuse patient.[facility] CampusIn the event this information is protected by the Federal Confidentiality of Alcohol and Drug Abuse Patient Records regulations: The Federal rules restrict any use of the information to criminally investigate or prosecute any alcohol or drug abuse patient.[facility] CampusIn the event this information is protected by the Federal Confidentiality of Alcohol and Drug Abuse Patient Records regulations: The Federal rules restrict any use of the information to criminally investigate or prosecute any alcohol or drug abuse patient.[facility] CampusIn the event this information is protected by the Federal Confidentiality of Alcohol and Drug Abuse Patient Records regulations: The Federal rules restrict any use of the information to criminally investigate or prosecute any alcohol or drug abuse patient.[facility] CampusIn the event this information is protected by the Federal Confidentiality of Alcohol and Drug Abuse Patient Records regulations: The Federal rules restrict any use of the information to criminally investigate or prosecute any alcohol or drug abuse patient.[facility] CampusIn the event this information is protected by the Federal Confidentiality of Alcohol and Drug Abuse Patient Records regulations: The Federal rules restrict any use of the information to criminally investigate or prosecute any alcohol or drug abuse patient.[facility] CampusIn the event this information is protected by the Federal Confidentiality of Alcohol and Drug Abuse Patient Records regulations: The Federal rules restrict any use of the information to criminally investigate or prosecute any alcohol or drug abuse patient.[facility] CampusIn the event this information is protected by the Federal Confidentiality of Alcohol and Drug Abuse Patient Records regulations: The Federal rules restrict any use of the information to criminally investigate or prosecute any alcohol or drug abuse patient.[facility] CampusIn the event this information is protected by the Federal Confidentiality of Alcohol and Drug Abuse Patient Records regulations: The Federal rules restrict any use of the information to criminally investigate or prosecute any alcohol or drug abuse patient.[facility] CampusIn the event this information is protected by the Federal Confidentiality of Alcohol and Drug Abuse Patient Records regulations: The Federal rules restrict any use of the information to criminally investigate or prosecute any alcohol or drug abuse patient.[facility] CampusIn the event this information is protected by the Federal Confidentiality of Alcohol and Drug Abuse Patient Records regulations: The Federal rules restrict any use of the information to criminally investigate or prosecute any alcohol or drug abuse patient.[facility] CampusIn the event this information is protected by the Federal Confidentiality of Alcohol and Drug Abuse Patient Records regulations: The Federal rules restrict any use of the information to criminally investigate or prosecute any alcohol or drug abuse patient.[facility] CampusIn the event this information is protected by the Federal Confidentiality of Alcohol and Drug Abuse Patient Records regulations: The Federal rules restrict any use of the information to criminally investigate or prosecute any alcohol or drug abuse patient.[facility] CampusIn the event this information is protected by the Federal Confidentiality of Alcohol and Drug Abuse Patient Records regulations: The Federal rules restrict any use of the information to criminally investigate or prosecute any alcohol or drug abuse patient.[facility] CampusIn the event this information is protected by the Federal Confidentiality of Alcohol and Drug Abuse Patient Records regulations: The Federal rules restrict any use of the information to criminally investigate or prosecute any alcohol or drug abuse patient.[facility] CampusIn the event this information is protected by the Federal Confidentiality of Alcohol and Drug Abuse Patient Records regulations: The Federal rules restrict any use of the information to criminally investigate or prosecute any alcohol or drug abuse patient.[facility] CampusIn the event this information is protected by the Federal Confidentiality of Alcohol and Drug Abuse Patient Records regulations: The Federal rules restrict any use of the information to criminally investigate or prosecute any alcohol or drug abuse patient.[facility] CampusIn the event this information is protected by the Federal Confidentiality of Alcohol and Drug Abuse Patient Records regulations: The Federal rules restrict any use of the information to criminally investigate or prosecute any alcohol or drug abuse patient.[facility] CampusIn the event this information is protected by the Federal Confidentiality of Alcohol and Drug Abuse Patient Records regulations: The Federal rules restrict any use of the information to criminally investigate or prosecute any alcohol or drug abuse patient.[facility] CampusIn the event this information is protected by the Federal Confidentiality of Alcohol and Drug Abuse Patient Records regulations: The Federal rules restrict any use of the information to criminally investigate or prosecute any alcohol or drug abuse patient.[facility] CampusIn the event this information is protected by the Federal Confidentiality of Alcohol and Drug Abuse Patient Records regulations: The Federal rules restrict any use of the information to criminally investigate or prosecute any alcohol or drug abuse patient.[facility] CampusIn the event this information is protected by the Federal Confidentiality of Alcohol and Drug Abuse Patient Records regulations: The Federal rules restrict any use of the information to criminally investigate or prosecute any alcohol or drug abuse patient.[facility] CampusIn the event this information is protected by the Federal Confidentiality of Alcohol and Drug Abuse Patient Records regulations: The Federal rules restrict any use of the information to criminally investigate or prosecute any alcohol or drug abuse patient.[facility] CampusIn the event this information is protected by the Federal Confidentiality of Alcohol and Drug Abuse Patient Records regulations: The Federal rules restrict any use of the information to criminally investigate or prosecute any alcohol or drug abuse patient.[facility] CampusIn the event this information is protected by the Federal Confidentiality of Alcohol and Drug Abuse Patient Records regulations: The Federal rules restrict any use of the information to criminally investigate or prosecute any alcohol or drug abuse patient.[facility] CampusIn the event this information is protected by the Federal Confidentiality of Alcohol and Drug Abuse Patient Records regulations: The Federal rules restrict any use of the information to criminally investigate or prosecute any alcohol or drug abuse patient.[facility] CampusIn the event this information is protected by the Federal Confidentiality of Alcohol and Drug Abuse Patient Records regulations: The Federal rules restrict any use of the information to criminally investigate or prosecute any alcohol or drug abuse patient.[facility] CampusIn the event this information is protected by the Federal Confidentiality of Alcohol and Drug Abuse Patient Records regulations: The Federal rules restrict any use of the information to criminally investigate or prosecute any alcohol or drug abuse patient.[facility] CampusIn the event this information is protected by the Federal Confidentiality of Alcohol and Drug Abuse Patient Records regulations: The Federal rules restrict any use of the information to criminally investigate or prosecute any alcohol or drug abuse patient.[facility] CampusIn the event this information is protected by the Federal Confidentiality of Alcohol and Drug Abuse Patient Records regulations: The Federal rules restrict any use of the information to criminally investigate or prosecute any alcohol or drug abuse patient.[facility] CampusIn the event this information is protected by the Federal Confidentiality of Alcohol and Drug Abuse Patient Records regulations: The Federal rules restrict any use of the information to criminally investigate or prosecute any alcohol or drug abuse patient.[facility] CampusIn the event this information is protected by the Federal Confidentiality of Alcohol and Drug Abuse Patient Records regulations: The Federal rules restrict any use of the information to criminally investigate or prosecute any alcohol or drug abuse patient.[facility] CampusIn the event this information is protected by the Federal Confidentiality of Alcohol and Drug Abuse Patient Records regulations: The Federal rules restrict any use of the information to criminally investigate or prosecute any alcohol or drug abuse patient.[facility] CampusIn the event this information is protected by the Federal Confidentiality of Alcohol and Drug Abuse Patient Records regulations: The Federal rules restrict any use of the information to criminally investigate or prosecute any alcohol or drug abuse patient.[facility] CampusIn the event this information is protected by the Federal Confidentiality of Alcohol and Drug Abuse Patient Records regulations: The Federal rules restrict any use of the information to criminally investigate or prosecute any alcohol or drug abuse patient.[facility] CampusIn the event this information is protected by the Federal Confidentiality of Alcohol and Drug Abuse Patient Records regulations: The Federal rules restrict any use of the information to criminally investigate or prosecute any alcohol or drug abuse patient.[facility] CampusIn the event this information is protected by the Federal Confidentiality of Alcohol and Drug Abuse Patient Records regulations: The Federal rules restrict any use of the information to criminally investigate or prosecute any alcohol or drug abuse patient.[facility] CampusIn the event this information is protected by the Federal Confidentiality of Alcohol and Drug Abuse Patient Records regulations: The Federal rules restrict any use of the information to criminally investigate or prosecute any alcohol or drug abuse patient.[facility] CampusIn the event this information is protected by the Federal Confidentiality of Alcohol and Drug Abuse Patient Records regulations: The Federal rules restrict any use of the information to criminally investigate or prosecute any alcohol or drug abuse patient.[facility] CampusIn the event this information is protected by the Federal Confidentiality of Alcohol and Drug Abuse Patient Records regulations: The Federal rules restrict any use of the information to criminally investigate or prosecute any alcohol or drug abuse patient.[facility] CampusIn the event this information is protected by the Federal Confidentiality of Alcohol and Drug Abuse Patient Records regulations: The Federal rules restrict any use of the information to criminally investigate or prosecute any alcohol or drug abuse patient.[facility] Reason for Visit (unrecogniz ed section and content) Reason Comments Physical Therapy Specialty Diagnoses / Procedures Referred By Contac t Referred To Contact Physical Therapy / PHYSICAL THERAPY Diagnoses Primary osteoarthritis of left knee Procedures CONSULT TO PHYSICAL THERAPY PHYSICAL THERAPY EVALUATION HIGH COMPLEX 45 MINS THERAPEUTIC EXERCISES RE, EA 15 MIN. Kelli Davis PA-C [address] [place] [address] [facility] [address] [place] [address] Referral ID Status Reason Start Date Expiration Date V isits Requested Visits Authorized [id number] Authorized 11/05/2021 02/14/2022 20 20 Reason Comments PT Progress Note Reason Comments F/U 3 months Laparoscopic mary-en -y gsatric bypass 05/28/21, needs insulin needs decreased Reason Onset Date Comments Population Health Navigation Outreach 05/12/2021 [place] Care Gaps Reason Comments Patient Update Blood sugar issues Reason Comments insulin dose-surgery Reason Comments Appointment Patient Update Reason Comments Established Patient hospital follow up- gastric bipass 05/30/21 Reason Onset Date Comments Refill Request 06/06/2021 Reason Comments Refill Request Reason Comments Allied Health Visit DM Reason Comments Prescription Refills Reason Onset Date Comments Refill Request 08/07/2021 Reason Comments Follow Up 3 month- patient due for JAZMIN Reason Comments 9 months post visit OA right knee Established Patient Reason Onset Date Comments Refill Request 08/29/2021 Reason Comments Appointment Reason Comments Knee Pain Reason Onset Date Comments Refill Request 10/02/2021 Reason Comments Consult Reason Comments Request for outside medical records Last office visit and neuro testing Reason Comments Pre-Op Teaching Specialty Diagnoses / Procedures Referred By Contac t Referred To Contact CT IMAGING Diagnoses Pre-op exam Procedures CT KNEE WO IVCON LT CT LOWER EXTREMITY W/O CONTRAST MATERIAL Kelli Davis PA-C [address] [place] [address] Ct Imaging Referral ID Status Reason Start Date Expiration Date V isits Requested Visits Authorized [id number] Closed Auto-Generate d Referral 09/16/2021 10/16/2022 1 1 Reason Comments Clinical Update Reason Comments Home Care Confirmation Call Reason Onset Date Comments Refill Request 10/31/2021 Reason Comments 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 Specialty Diagnoses / Procedures Referred By Contac t Referred To Contact [facility] Home Care [address] [place] [id number] Referral ID Status Reason Start Date Expiration Date Visits Re quested Visits Authorized [id number] 1 1 Reason Comments Home Care Bandage removal Reason Onset Date Comments Refill Request 11/05/2021 Reason Comments Orders Reason Comments Diabetes Reason Onset Date Comments Refill Request 11/13/2021 Reason Comments Patient Question Reason Comments Radiology CT Specialty Diagnoses / Procedures Referred By Contac t Referred To Contact CT IMAGING Diagnoses Other intra-abdominal and pelvic swelling, mass and lump Procedures CT PELVIS W IVCON CT PELVIS W/CONTRAST MATERIAL 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, 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, 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 [address] [place] [address] Ct Imaging Referral ID Status Reason Start Date Expiration Date V isits Requested Visits Authorized [id number] Closed Auto-Generate d Referral 11/12/2021 12/12/2022 1 1 Reason Comments PT Eval Reason Onset Date Comments Refill Request 11/21/2021 Reason Onset Date Comments Refill Request 11/26/2021 Reason Onset Date Comments Refill Request 12/10/2021 Reason Comments Recheck 4 month Reason Comments Discussion Reason Onset Date Comments Refill Request 12/22/2021 Reason Comments Established Patient 5wks 5days postop L TKA- CHEL Post Op 5wks 5days postop L TKA- CHEL Reason Comments Post Op 11 weeks 5 days post op Robotic Left TKA Reason Onset Date Comments Refill Request 01/20/2022 Reason Comments Schedule Surgery Reason Comments Polysomnogram Reason Comments Post Op 1 week 3 days post opLeft knee manipulan tion under anesthesia Reason Onset Date Comments Refill Request 02/13/2022 Reason Comments Letter Request for Handicap Parking Spac e Reason Comments Results Reason Comments Orders lab orders Reason Comments New Patient Nocturnal hypoxia Reason Onset Date Comments Refill Request 03/12/2022 Reason Comments Recheck 3 month follow up Reason Comments Medication Clarification Reason Comments Medication Update Reason Comments Insurance Authorization Reason Onset Date Comments Refill Request 04/09/2022 Reason Comments Updated Medication Reason Comments Dexcom sensor PA question Reason Onset Date Comments Refill Request 05/08/2022 Reason Onset Date Comments Abnormal Lab 05/19/2022 Elevated H/H; hi gh end normal Vitamin D Reason Comments Bariatrics Post Op Follow-up 12M Reason Comments Missed Appointment Reason Onset Date Comments Refill Request 06/05/2022 Reason Comments Recheck 3 month follow up Reason Comments Trulicity 4.5 unavailable Reason Comments 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 Ultrasound Specialty Diagnoses / Procedures Referred By Osmani t Referred To Contact [facility] Diagnoses Cyst of right ovary Procedures PELVIC US WHI US PELVIC NONOBSTETRIC REAL-TIME IMAGE COMPLETE Chyna Fleming MD [address] [place] [address] [address] Referral ID Status Reason Start Date Expiration Date V isits Requested Visits Authorized [id number] Closed Auto-Generate d Referral 06/14/2022 12/15/2022 1 1 Reason Comments Appointment Rescheduled Reason Comments Pre-Op Exam Reason Onset Date Comments Refill Request 07/29/2022 Reason Comments Pathology Report Reason Comments Post Op Reason Onset Date Comments Abnormal Lab 08/26/2022 Protein Reason Comments needs rx for new Izabella reader Reason Comments Spirometry Specialty Diagnoses / Procedures Referred By Contac t Referred To Contact [facility] Diagnoses Nocturnal hypoxemia Procedures LUNG VOLUMES Shawanda May MD [address] [address] [address] Referral ID Status Reason Start Date Expiration Date V isits Requested Visits Authorized [id number] Closed Auto-Generate d Referral 09/03/2022 02/14/2023 1 1 Specialty Diagnoses / Procedures Referred By Contac t Referred To Contact [facility] Diagnoses Nocturnal hypoxemia Procedures LUNG DIFFUSION CAPACITY (DLCO) DIFFUSING CAPACITY Shawanda May MD [address] [address] [address] Referral ID Status Reason Start Date Expiration Date V isits Requested Visits Authorized [id number] Closed Auto-Generate d Referral 03/10/2022 04/09/2023 1 1 Specialty Diagnoses / Procedures Referred By Contac t Referred To Contact [facility] Diagnoses Nocturnal hypoxemia Procedures SPIROMETRY BASELINE ONLY SPMTRY W/VC EXPIRATORY CHETNA W/WO MXML VOL VNTJ Shawanda May MD [address] [address] [address] Referral ID Status Reason Start Date Expiration Date V isits Requested Visits Authorized [id number] Closed Auto-Generate d Referral 03/10/2022 04/09/2023 1 1 Reason Comments Shortness of Breath Reason Onset Date Comments Refill Request 09/14/2022 Reason Comments Letter Reason Onset Date Comments Refill Request 09/22/2022 Reason Comments Lab Orders Reason Comments Recheck DM follow up Reason Onset Date Comments Refill Request 10/20/2022 Reason Comments Liver ultrasound results Reason Comments Appointment Primary care Pharmac y No Show reschedule Reason Onset Date Comments Refill Request 12/07/2022 Reason Onset Date Comments Refill Request 12/10/2022 Refill Request 12/11/2022 Reason Comments Bariatrics Post Op Follow-up POP 18m Reason Comments Radiology US Specialty Diagnoses / Procedures Referred By Contac t Referred To Contact US IMAGING Diagnoses Elevated liver enzymes Procedures US ABD RIGHT UPPER QUADRANT US ABDOMINAL REAL TIME W/IMAGE LIMITED Inna Small 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 [address] [place] [address] [place] [address] Referral ID Status Reason Start Date Expiration Date V isits Requested Visits Authorized [id number] Closed Auto-Generate d Referral 10/12/2022 11/11/2023 1 1 Reason Onset Date Comments Abnormal Lab 12/15/2022 Low protein Reason Comments Medication Problem Reason Comments F/U Diabetes 3 Month Reason Onset Date Comments Refill Request 01/13/2023 Reason Onset Date Comments Refill Request 04/02/2023 Reason Comments Recheck 3 month DM follow up Reason Comments Follow Up Reason Onset Date Comments Population Health Navigation Outreach 04/26/2023 ANTHEM AMV OUTREACH Reason Onset Date Comments Refill Request 05/06/2023 Reason Onset Date Comments Refill Request 05/10/2023 Reason Onset Date Comments Refill Request 05/27/2023 Reason Onset Date Comments Refill Request 06/25/2023 Reason Comments Recheck 3 month follow up Reason Onset Date Comments Refill Request 08/13/2023 Reason Onset Date Comments Refill Request 09/01/2023 Reason Comments Medication Request Antibiotics Reason Onset Date Comments Refill Request 09/21/2023 Reason Comments Pain Established Patient Referred by Inna Small Last seen 02/02/22 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) Specialty Diagnoses / Procedures Referred By Contac t Referred To Contact Orthopedics Diagnoses Chronic left shoulder pain Procedures CONSULT TO ORTHOPAEDICS OFFICE/OUTPATIENT NEW HIGH MDM 60 MINUTES Inna Small 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 [address] [place] [address] Referral ID Status Reason Start Date Expiration Date V isits Requested Visits Authorized [id number] Closed PCP Requested Referral 07/15/2023 07/14/2024 1 1 Reason Onset Date Comments Refill Request 11/10/2023 Reason Onset Date Comments Refill Request 12/15/2023 Reason Onset Date Comments Refill Request 12/10/2023 Reason Onset Date Comments Refill Request 01/05/2024 Reason Comments Recheck 6 month follow up Reason Onset Date Comments Abnormal Lab 03/06/2022 Low protein, low zinc Reason Onset Date Comments Refill Request 03/08/2024 Reason Comments Orders Patient Question Reason Comments OT Discharge OT EVAL Specialty Diagnoses / Procedures Referred By Osmani de la rosa Referred To Contact Occupational Therapy Diagnoses Parkinson's disease, unspecified whether dyskinesia present, unspecified whether manifestations fluctuate (HCC) Tardive dyskinesia Procedures CONSULT TO INGREDIENT SCALER HELPER Modesta Daley MD [address] [place] [address] Phone: tel: fax: Referral ID Status Reason Start Date Expiration Date V isits Requested Visits Authorized [id number] Closed PCP Requested Referral 03/20/2024 03/20/2025 1 1 Reason Onset Date Comments Refill Request 03/30/2024 Reason Onset Date Comments Refill Request 04/27/2024 Reason Comments F/U 3 Month Reason Comments Orders Passport services Reason Comments Recheck 2 week follow up Reason Onset Date Comments Refill Request 06/05/2024 Reason Onset Date Comments Refill Request 06/20/2024 Reason Comments Orders Lift chair Reason Onset Date Comments Refill Request 07/28/2024 Reason Onset Date Comments Refill Request 07/18/2024 Reason Onset Date Comments Refill Request 08/22/2024 Reason Onset Date Comments Results 09/14/2024 Reason Onset Date Comments Refill Request 10/19/2024 Goals (unrecognized section and content) Goals may be documented in a n alternate section FOR RECORDS PERTAINING TO PATIENTS WHO ARE OR HAVE BEEN ENROLLED IN A CHEMICAL DEPENDENCY/SUBSTANCEABUSE PROGRAM, SOME INFORMATION MAY BE OMITTED. This clinical summary was aggregated from multiple sources. Caution should be exercised in using it in the provision of clinical care. This summary normalizes information from multiple sources, and as a consequence, information in this document may materially change the coding, format and clinical context of patient data. In addition, data may be omitted in some cases. CLINICAL DECISIONS SHOULD BE BASED ON THE PRIMARY CLINICAL RECORDS. [facility]. provides no warranty or guarantee of the accuracy or completeness of information in this document.
--- NOTE | 2025-02-04 10:55 | RAD_ITS ---
PROCEDURE: LUMBAR SPINE 2 OR 3 VIEWS 02/04/2025 REASON FOR EXAM: BACK PAIN, FALL Pain. TECHNIQUE: Procedure Code: RADSPLL Modality: DX Procedure: LUMBAR SPINE 2 OR 3 VIEWS COMPARISON: None available for review FINDINGS: Radiographs of the lumbosacral spine demonstrate straightening of the lumbar lordotic curvature. T12 anterior vertebral wedging. L1-S1 endplate hypertrophy and associated disc space narrowing. Modic type endplate changes at L2-3 as well as L4-5. L2-S1 facet joint arthrosis. Sacral nerve stimulator reservoir is noted on the right with lead on the left. Moderate colonic stool burden without evidence of bowel obstruction. Multiple pelvic phleboliths. RAD/Lumbar Spine 2 or 3 Views IMPRESSION: Degenerative changes of the lumbar spine with disc space narrowing from L1-S1. T12 anterior vertebral body wedging. Reading Location: [id number]
[2025-02-04 11:40] VITALS: BP 138/81; PULSE 74; RESP 16; TEMP 36.6; O2SAT 97
--- NOTE | 2025-02-04 11:45 | NURSING ---
no finger stick for blood glucose level was obtained. patient was here for a mechanical fall, states she takes insulin but ate appropriately with it this morning. no IV access was ordered.
== END 2025-02-04 11:58 | disposition home or self-care (01) ==
PROVIDERS: Emergency Provider Surgery; PCP Internal Medicine; Visit Provider Surgery
DX: M62.830 Muscle spasm of back (principal); E11.9 Type 2 diabetes mellitus without complications; Z79.4 Long term (current) use of insulin; M54.50 Low back pain, unspecified; W01.190A Fall on same level from slipping, tripping and stumbling with subsequent striking against furniture, initial encounter; G24.01 Drug induced subacute dyskinesia; T43.4X5A Adverse effect of butyrophenone and thiothixene neuroleptics, initial encounter; E78.5 Hyperlipidemia, unspecified; F41.9 Anxiety disorder, unspecified; F32.A Depression, unspecified; Z90.49 Acquired absence of other specified parts of digestive tract; Z79.899 Other long term (current) drug therapy; Z87.891 Personal history of nicotine dependence
CPT/HCPCS: 72100; 96372; 99283